=== PATIENT | male | born 1930 | race Caucasian/White ===

== ENCOUNTER 2017-05-06 09:21 | Inpatient (IN) | payer OTHER ==
[~2017-05-06] VITALS: Ht 182.9 cm; Wt 89.4 kg
[2017-05-06] VITALS (18 sets, daily range): BP systolic 105–126; BP diastolic 65–88; PULSE 87–102; TEMP 36.6–37; O2SAT 95–100; Ht 182.9 cm; Wt 89.4 kg
[~2017-05-06 09:21] MED LIST: ANT25 PO; ASPEC81 PO; Amoxicillin/Clavulanate Potas PO; GABA-112 PO; GUAISYP4 PO; LISI-790 PO; LPT40 PO; LVQ500 PO; METH-589 PO; SERT50TA PO; SRQ/200 PO
--- NOTE | 2017-05-06 11:57 | History and Physical ---
History & Physical Date & Time of Service: May 06, 2017 at 11:57 Chief Complaint: Resp Failure, Pnx Primary Care Physician: Hakan Willingham M.D. History of Present Illness This is a 86 year old male who comes as a direct admission from [facility] for respiratory failure from pulmonary edema and possible infection. Prior to arrival patient was treated with steroid, antibiotics, NEBs and diuretics. He did not improve which prompt the [facility] to dispatch patient to our hospital. Patient arrives to the ICU on a vent, and sedated and is unable to provide any history. Significant PMH include atrial fib/CHF-Diastolic Dysfunction/COPD/CRI. Items discovered in the outside hospital include iron deficiency anemia, 5.4cm AAA. I spoke with his daughter as she was outside the room when patient arrived. She is hoping for him to improve. She will discuss code status with the critical care team. Past Medical/Surgical History Medical Problems: (1) HTN (hypertension) Status: Chronic (2) Kidney stone Status: Chronic (3) Lymphoma Status: Chronic Family History FH: cancer FHx: hypertension Kidney disease or stones Social History Smoking Status: Never Smoker Marital Status: Occupational Status: retired Immunizations History of Influenza Vaccine: Unknown History of Tetanus Vaccine?: Unknown History of Pneumococcal: Unknown History of Hepatitis B Vaccine: Unknown Allergies Coded Allergies: Iodinated Diagnostic Agents (Verified Allergy, Severe, ANAPHYLAXIS, ) Sulfa Antibiotics (Verified Allergy, Unknown, UNKNOWN, 04/30/15) Home Medications Scheduled Aspirin (Aspirin EC Low Dose), 81 MG PO QAM Atorvastatin (Atorvastatin Calcium), 40 MG PO QAM Gabapentin (Neurontin), 100 MG PO HS Levofloxacin (Levofloxacin), 500 MG PO DAILY@11 Lisinopril (Zestril), 5 MG PO BID Methimazole (Methimazole ), 10 MG PO DAILY Quetiapine Fumarate (Seroquel), 300 MG PO HS Sertraline (Zoloft), 50 MG PO DAILY [Amoxicillin/Clavulanate Potas], 875 MG PO BIDM Scheduled PRN Guaifenesin/Codeine (Robitussin-Ac Syrup), 10 ML PO Q6H PRN for Cough Meclizine HCl (Meclizine HCl), 25 MG PO Q6H PRN for VERTIGO Review of Systems ROS was negative as patient was unable to provide history Respiratory: + shortness of breath Physical Exam General Appearance: + pertinent finding (sedated and intubated on a vent) Neck: supple, no adenopathy Respiratory/Chest: chest non-tender, + decreased breath sounds (on the bases) Cardiovascular: regular rate, rhythm, no edema Abdomen/GI: normal bowel sounds, non tender, soft Extremities/Musculoskelatal: normal inspection, no calf tenderness Skin: normal color Lymphatic: no adenopathy Diagnostics Laboratory Results Microbiology Results 05/06/17 MRSA DNA Surveillance Screen, Ordered Pending Diagnostic Radiology CHEST ONE VIEW PORTABLE HISTORY: 86 years-old Male For Line Placement/Intubation status post line placement. Respiratory failure. COMPARISON: Chest radiograph 04/30/2015 TECHNIQUE: Portable upright AP view of the chest FINDINGS: Study is limited secondary to patient rotation to the right. Endotracheal tube overlies the region of the trachea terminating 5.7 cm superior to the rachelle. Enteric tube courses below the diaphragm terminating to the right of midline within the region of the gastric lumen. No definite central venous catheter identified. Moderate enlargement of the cardiac silhouette. Lungs are hypoinflated. There is pulmonary vascular congestion with bronchovascular crowding. There is interstitial coarsening with left greater than right bibasilar opacities, small left pleural effusion. Bones are grossly intact. IMPRESSION: 1. Limited study secondary to patient rotation. Endotracheal and enteric tubes as above. 2. Cardiomegaly with mild pulmonary edema pattern, small left pleural effusion and bibasilar atelectasis or pneumonia. The above report was generated using voice recognition software. It may contain grammatical, syntax or spelling errors. EKG Atrial fibrillation with premature ventricular or aberrantly conducted complexes Right bundle branch block Nonspecific T wave abnormality Abnormal ECG When compared with ECG of 02-MAY-2015 08:17, Atrial fibrillation has replaced Sinus rhythm Questionable change in QRS axis T wave inversion now evident in Anterior leads Confirmed by JUS DE SUOZA MD ([id number]) on 05/06/2017 7:13:51 PM Impression Assessment and Plan Acute Respiratory failure in an 86 year old male who require mecahnical ventilation. Admitted to the ICU Vent support by Critical care team Sedation intermittent Continue with steroids, antibiotics and nebs Will consult cardiology as patient may have heart failure will also obtain echo Critical care team placed OG for decompression. HTN will monitor BP. continue home med Depression cont. seroquel. Code status:DNR/DNI Level of Care Critical Care Advanced Directives Existing Advance Directive: No Existing Living Will: No Existing Power of Vector Control Assistant: No Existing Health Care Proxy: No Resuscitation Status DO NOT RESUSCITATE VTE Prophylaxis VTE Risk Assessment Done? Y/N: Yes Risk Level: Moderate Given or contraindicated: T.E.D. Stockings, SCD's Note Total Time: Critical Care 30 - 74 minutes
[2017-05-06] MEDS: ICU PROTOCOL FOR HYPERGLYCEMIA SCH ×3 (12:30→23:49)
--- NOTE | 2017-05-06 12:42 | DIAGNOSTIC IMAGING REPORT ---
CHEST ONE VIEW PORTABLE HISTORY: 86 years-old Male For Line Placement/Intubation status post line placement. Respiratory failure. COMPARISON: Chest radiograph 04/30/2015 TECHNIQUE: Portable upright AP view of the chest FINDINGS: Study is limited secondary to patient rotation to the right. Endotracheal tube overlies the region of the trachea terminating 5.7 cm superior to the rachelle. Enteric tube courses below the diaphragm terminating to the right of midline within the region of the gastric lumen. No definite central venous catheter identified. Moderate enlargement of the cardiac silhouette. Lungs are hypoinflated. There is pulmonary vascular congestion with bronchovascular crowding. There is interstitial coarsening with left greater than right bibasilar opacities, small left pleural effusion. Bones are grossly intact. IMPRESSION: 1. Limited study secondary to patient rotation. Endotracheal and enteric tubes as above. 2. Cardiomegaly with mild pulmonary edema pattern, small left pleural effusion and bibasilar atelectasis or pneumonia. The above report was generated using voice recognition software. It may contain grammatical, syntax or spelling errors. Electronically signed by: Troy Calzada M.D. 05/06/2017 12:40 PM Dictated Date/Time: 05/06/2017 12:38 PM
[2017-05-06] MEDS ORDERED: LEVOFLOXACIN / D5W 500 MG in PREMIXED IN D5W 100 ML IV SCH (13:30)
[2017-05-06] MEDS: METHYLPREDNISOLONE IV 40 MG in SYRINGE 0 ML IV SCH ×2 (13:38→20:10)
[2017-05-06 13:44] LABS: INR 1.9 (0.9-1.1); PARTIAL THROMBOPLASTIN RATIO 1.1; PROTHROMBIN TIME (PATIENT) 20.9 SECONDS (9.0-12.0)
[2017-05-06 13:46] LABS: HEMATOCRIT 27.4 % (42-52); MEAN CELL VOLUME 70.6 fL (80-100); MEAN CORPUSCULAR HEMOGLOBIN 20.4 pg (25-34); MEAN CORPUSCULAR HGB CONC 28.8 g/dl (32-36); MEAN PLATELET VOLUME 9.6 fL (7.4-10.4); PLATELET COUNT 198 K/uL (130-400); RED BLOOD COUNT 3.88 M/uL (4.7-6.1)
[2017-05-06 14:00] LABS: BUN/CREATININE RATIO 24.5 (10-20); CALCIUM 7.5 mg/dl (8.5-10.1); CREATININE 1.72 mg/dl (0.60-1.40); POTASSIUM 4.3 mmol/L (3.5-5.1)
[2017-05-06 14:08] LABS: ANISOCYTOSIS PRESENT; COMPLETE YES; HYPERSEGMENTED POLYS 1+; HYPOCHROMIA PRESENT; IG% 0.8 %; LYMPH ABS # 0.56 K/uL (1.2-3.4); MICROCYTOSIS PRESENT; MONO % 9.9 %; NEUT % 82.3 %; OVALOCYTES 1+; TOXIC GRANULATION 1+
--- NOTE | 2017-05-06 14:38 | Critical Care Consultation ---
Critical Care Consultation Date of Consultation: May 06, 2017. Attending Physician: Hakan Flood M.D. Reason for Consultation: Respiratory Failure History of Present Illness He presented to an outside hospital with increased shortness of breath and edema secondary to a respiratory infection. He was treated with antibiotics, steroids, NEBs and diuretics. His condition continued to not improve. He was transferred to [facility] for additional care after he was intubated. Underlying medical issues include atrial fib/CHF-Diastolic Dysfunction/COPD/ CRI. Items discovered in the outside hospital include iron deficiency anemia, 5.4cm AAA. On presentation he is intubated and sedated. I spoke with his daughter who desired no additional heroic measures beyond that has been done. Past Medical/Surgical History --COPD --CHF --Atrial Fib--on anticoagulation --CRI with worsening renal insufficiency --Hyperthyroidism Family History FH: cancer FHx: hypertension Kidney disease or stones Social History Smoking Status: Never Smoker Marital Status: Housing Status: lives with significant other Occupation Status: retired Allergies Coded Allergies: Iodinated Diagnostic Agents (Verified Allergy, Severe, ANAPHYLAXIS, ) Sulfa Antibiotics (Verified Allergy, Unknown, UNKNOWN, 04/30/15) Home Medications Scheduled Aspirin (Aspirin EC Low Dose), 81 MG PO QAM Atorvastatin (Atorvastatin Calcium), 40 MG PO QAM Gabapentin (Neurontin), 100 MG PO HS Levofloxacin (Levofloxacin), 500 MG PO DAILY@11 Lisinopril (Zestril), 5 MG PO BID Methimazole (Methimazole ), 10 MG PO DAILY Quetiapine Fumarate (Seroquel), 300 MG PO HS Sertraline (Zoloft), 50 MG PO DAILY [Amoxicillin/Clavulanate Potas], 875 MG PO BIDM Scheduled PRN Guaifenesin/Codeine (Robitussin-Ac Syrup), 10 ML PO Q6H PRN for Cough Meclizine HCl (Meclizine HCl), 25 MG PO Q6H PRN for VERTIGO Current Inpatient Medications Current Inpatient Medications Medications (Trade) Dose Ordered Sig/Claudia Route Start Time Stop Time Status Last Admin Dose Admin Miscellaneous Information (Icu Protocol For Hyperglycemia) 1 ea Q6H N/A 05/06/17 12:00 05/08/17 11:59 05/06/17 12:30 1 EA Methylprednisolone Sodium Succinate 40 mg/Syringe 0.64 ml @ 1.5 mls/min Q6H IV 05/06/17 14:00 06/05/17 13:59 05/06/17 13:38 1.5 MLS/MIN Levofloxacin 500 mg/Prmx 100 ml @ 100 mls/hr DAILY@1300 IV 05/06/17 13:30 05/08/17 13:29 05/06/17 13:38 100 MLS/HR Albuterol/ Ipratropium (Duoneb) 3 ml QIDR INH 05/06/17 16:00 06/05/17 15:59 Fentanyl Citrate (Fentanyl Inj) 25 mcg Q15M PRN IV 05/06/17 13:00 05/20/17 12:59 Midazolam HCl (Versed Inj) 2 mg Q30M PRN IV 05/06/17 13:00 06/05/17 12:59 Review of Systems Patient intubated and sedated. Information obtained from the transfer records. Physical Exam Date Time Temp Pulse Resp B/P (MAP) Pulse Ox O2 Delivery O2 Flow Rate FiO2 05/06/17 14:00 95 16 113/84 (94) 99 Mechanical Ventilator 80 05/06/17 13:15 91 16 99 05/06/17 13:01 94 16 113/79 (81) 98 05/06/17 13:00 94 16 98 05/06/17 12:45 93 41 98 05/06/17 12:30 99 34 100 05/06/17 12:15 94 23 98 05/06/17 12:00 95 38 118/82 (89) 98 05/06/17 11:21 37.0 102 23 105/79 98 Mechanical Ventilator 80 Gen--sedation/frail elderly man HEENT--no focal deficits suggested Respiratory--exchange is adequate. No substantial wheezing or rhonchi-- diminished in the base Cardio--rate is 90's. Murmur noted at the apex. Neck veins not particularly distended--symmetric perfusion GI--functional--distended Musculo--no target Neuro--intubated and sedated Derm--no active lesions Laboratory Results Last 24 Hours Test 05/06/17 12:44 05/06/17 13:20 Bedside Glucose 139 mg/dl White Blood Count 8.00 K/uL Red Blood Count 3.88 M/uL Hemoglobin 7.9 g/dL Hematocrit 27.4 % Mean Corpuscular Volume 70.6 fL Mean Corpuscular Hemoglobin 20.4 pg Mean Corpuscular Hemoglobin Concent 28.8 g/dl Platelet Count 198 K/uL Mean Platelet Volume 9.6 fL Neutrophils (%) (Auto) 82.3 % Lymphocytes (%) (Auto) 7.0 % Monocytes (%) (Auto) 9.9 % Eosinophils (%) (Auto) 0.0 % Basophils (%) (Auto) 0.0 % Neutrophils # (Auto) 6.59 K/uL Lymphocytes # (Auto) 0.56 K/uL Monocytes # (Auto) 0.79 K/uL Eosinophils # (Auto) 0.00 K/uL Basophils # (Auto) 0.00 K/uL RDW Standard Deviation 48.1 fL RDW Coefficient of Variation 19.1 % Immature Granulocyte % (Auto) 0.8 % Immature Granulocyte # (Auto) 0.06 K/uL Nucleated RBC Absolute Count (auto) 0.05 K/uL Nucleated Red Blood Cells % 0.6 % Hypersegmented Polys 1+ Toxic Granulation 1+ Hypochromasia PRESENT Anisocytosis PRESENT Microcytosis PRESENT Ovalocytes 1+ Prothrombin Time 20.9 SECONDS Prothromb Time International Ratio 1.9 Activated Partial Thromboplast Time 27.6 SECONDS Partial Thromboplastin Ratio 1.1 Sodium Level 145 mmol/L Potassium Level 4.3 mmol/L Chloride Level 111 mmol/L Carbon Dioxide Level 28 mmol/L Anion Gap 6.0 mmol/L Blood Urea Nitrogen 42 mg/dl Creatinine 1.72 mg/dl Est Creatinine Clear Calc Drug Dose 39.8 ml/min Estimated GFR () 41.4 Estimated GFR (Non- 35.7 BUN/Creatinine Ratio 24.5 Random Glucose 128 mg/dl Calcium Level 7.5 mg/dl Total Bilirubin 0.7 mg/dl Direct Bilirubin 0.3 mg/dl Aspartate Amino Transf (AST/SGOT) 66 U/L Alanine Aminotransferase (ALT/SGPT) 39 U/L Alkaline Phosphatase 85 U/L Total Protein 6.2 gm/dl Albumin 3.3 gm/dl Diagnostic Results Iron deficiency anemia/renal insuff/ CXR with CHF changes EKG--atrial fib Echo pending Assessment & Plan Respiratory failure--multifactorial--COPD and CHF 1. Respiratory--vent support--continue antibiotic/steroids and nebs. Sedation intermittent 2. Cardio--cardiology assistance/echo--may benefit from additional Hgb--loop as tolerated 3. GI--OG decompression 4. Renal--will track appropriates 5. Heme--given the iron deficiency anemia--will hold on the anticoagulation for now. 6. Endo--TSH noted.
--- NOTE | 2017-05-06 15:00 | ECHOCARDIOGRAM REPORT ---
*NOTICE TO RECEIVING CONSTITUTION PARTY AGENCY This information is strictly Confidential and protected under [place] law. [place] law prohibits you from making any further disclosure of this information unless further disclosure is expressly permitted by the written consent of the person to whom it pertains or is authorized by law. A general authorization for the release of medical or other information is not sufficient for this purpose. Hospital accepts no responsibility if the information is made available to any other person, INCLUDING THE PATIENT. Interpretation Summary * Conclusions -- * The left ventricle is mildly dilated. * There is borderline concentric left ventricular hypertrophy. * Left ventricular systolic function is moderately reduced. * Grade I diastolic dysfunction, (abnormal relaxation pattern). * There is moderate global hypokinesis of the left ventricle. * The right ventricle is mild to moderately dilated. * The right ventricular systolic function is normal as assessed by tricuspid annular plane systolic excursion (TAPSE) (normal >1.5 cm). * The left atrium is mildly dilated. * The right atrium is mildly dilated. * There is moderate mitral regurgitation. * There is moderate tricuspid regurgitation. * Right ventricular systolic pressure is elevated at 30-40mmHg. * Mild to moderate aortic regurgitation. * Compared to a study from 05/01/2015, the overall LV systolic function is worse, there has been slight progression of the valvular heart disease. Procedure Details * A complete two-dimensional transthoracic echocardiogram was performed (2D, M-mode, Doppler and color flow Doppler). * A contrast injection of Definity was performed to improve assessment of LV function. * Contrast was injected into an intravenous site in the left arm. * One vial of Definity ultrasound contrast was diluted in normal saline to a total volume of 10 ml. A total of '2' ml of solution was administered during imaging. * Lot # [id number] of Definity utilized for procedure. * Expiration date Jun 14. * The attending nurse who injected the contrast agent was Troy Sun RN. Left Ventricle * The left ventricle is mildly dilated. * There is borderline concentric left ventricular hypertrophy. * Ejection Fraction = 25-30%. * Left ventricular systolic function is moderately reduced. * Grade I diastolic dysfunction, (abnormal relaxation pattern). * There is moderate global hypokinesis of the left ventricle. Right Ventricle * The right ventricle is mild to moderately dilated. * The right ventricular systolic function is normal as assessed by tricuspid annular plane systolic excursion (TAPSE) (normal >1.5 cm). Atria * The left atrium is mildly dilated. * The right atrium is mildly dilated. Mitral Valve * There is a calcified lesion on the anterior mitral leaflet which resulted in significant regurgitation. This lesion was present on the last echocardiogram performed in 2014 and appears unchanged. * There is moderate mitral regurgitation. * The mitral regurgitant jet is eccentrically directed. Tricuspid Valve * The tricuspid valve is not well visualized, but is grossly normal. * There is moderate tricuspid regurgitation. * Right ventricular systolic pressure is elevated at 30-40mmHg. Aortic Valve * The aortic valve is normal in structure and function. * No hemodynamically significant valvular aortic stenosis. * Mild to moderate aortic regurgitation. Great Vessels * The aortic root is normal size. Pericardium/Pleural * There is no pericardial effusion. Great Vessels * Dilated inferior vena cava with reduced collapsability with sniff indicates an elevated right atrial pressure of 15 mmHg MMode 2D Measurements and Calculations IVSd 1.2 cm LVIDd 6.1 cm LVIDs 4.4 cm LVPWd 1.2 cm IVS/LVPW 1.0 FS 28.2 % EDV(Teich) 186.6 ml ESV(Teich) 86.6 ml EF(Teich) 53.6 % EDV(cubed) 226.4 ml ESV(cubed) 83.9 ml EF(cubed) 63.0 % LV mass(C)d 329.8 grams LV mass(C)dI 146.4 grams/m\S\2 SV(Teich) 100.0 ml SI(Teich) 44.4 ml/m\S\2 SV(cubed) 142.6 ml SI(cubed) 63.3 ml/m\S\2 Ao root diam 3.5 cm Ao root area 9.5 cm\S\2 ACS 1.8 cm LA dimension 4.6 cm asc Aorta Diam 4.2 cm LA/Ao 1.3 LVOT diam 2.0 cm LVOT area 3.1 cm\S\2 LVAd ap4 44.6 cm\S\2 LVLd ap4 8.5 cm EDV(MOD-sp4) 195.5 ml EDV(sp4-el) 197.8 ml LVAs ap4 29.5 cm\S\2 LVLs ap4 8.0 cm ESV(MOD-sp4) 91.2 ml ESV(sp4-el) 92.2 ml EF(MOD-sp4) 53.4 % EF(sp4-el) 53.4 % LVAd ap2 30.4 cm\S\2 LVLd ap2 7.2 cm EDV(MOD-sp2) 104.9 ml EDV(sp2-el) 108.5 ml LVAs ap2 20.7 cm\S\2 LVLs ap2 6.7 cm ESV(MOD-sp2) 51.7 ml ESV(sp2-el) 54.0 ml EF(MOD-sp2) 50.7 % EF(sp2-el) 50.2 % LVLd %diff -17.54 % EDV(MOD-bp) 154.2 ml LVLs %diff -19.08 % ESV(MOD-bp) 75.1 ml EF(MOD-bp) 51.3 % SV(MOD-sp4) 104.3 ml SI(MOD-sp4) 46.3 ml/m\S\2 SV(MOD-sp2) 53.1 ml SI(MOD-sp2) 23.6 ml/m\S\2 SV(MOD-bp) 79.1 ml SI(MOD-bp) 35.1 ml/m\S\2 SV(sp4-el) 105.6 ml SI(sp4-el) 46.9 ml/m\S\2 SV(sp2-el) 54.5 ml SI(sp2-el) 24.2 ml/m\S\2 Doppler Measurements and Calculations MV E max elizabeth 117.9 cm/sec MV dec time 0.21 sec Ao V2 max 176.4 cm/sec Ao max PG 12.4 mmHg Ao max PG (full) 9.8 mmHg NADYA(V,A) 1.4 cm\S\2 NADYA(V,D) 1.4 cm\S\2 LV V1 max PG 2.7 mmHg LV V1 max 81.4 cm/sec PA V2 max 68.8 cm/sec PA max PG 1.9 mmHg PA acc slope 496.9 cm/sec\S\2 PA acc time 0.10 sec PI max elizabeth 173.7 cm/sec PI max PG 12.1 mmHg PI dec slope 314.1 cm/sec\S\2 PI P1/2t 162.0 msec TR max elizabeth 221.8 cm/sec PA pr(Accel) 34.6 mmHg
--- NOTE | 2017-05-06 15:09 | Cardiology Consultation ---
Cardiology Consultation Date of Consultation: May 06, 2017. Requesting Physician: Dr. Abdi Reason for Consultation: CHF, AF Pt evaluation today including: conversation w/ family, physical exam, lab review, review of studies, review of inpatient medication list, conversation w/ attending History of Present Illness This is an 82-year-old gentleman who has a history of non-Hodgkin's lymphoma in remission, he was evaluated in 2012 for flail posterior mitral valve leaflet along with bacteremia. According the family that resolved without incident. I do have an echocardiogram from 2014 where he did not have severe mitral regurgitation. He was recently hospitalized in [place], and transferred here. I don't have records from [place] to review at this time. According to the family he was intubated in order to transport him. He is in atrial fibrillation and anticoagulated, his family is unaware of atrial fibrillation. According to the family he has had difficulty with his heart lately but they are nonspecific about it, he evidently has had difficulty with heart failure. The family reports that he had a cardiac catheterization around January 2017 in [facility] (I don't have those records) where he did not have any blockages in his arteries. The time of evaluation he is intubated, sedated and resting comfortably. Past Medical/Surgical History (1) Kidney stone (2) Lymphoma (3) HTN (hypertension) Family History FH: cancer FHx: hypertension Kidney disease or stones Social History Smoking Status: Never Smoker History of Alcohol Use: No Review of Systems Respiratory: + cough ROS cannot be performed due to patient being intubated Allergies Coded Allergies: Iodinated Diagnostic Agents (Verified Allergy, Severe, ANAPHYLAXIS, ) Sulfa Antibiotics (Verified Allergy, Unknown, UNKNOWN, 04/30/15) Medications Current Inpatient Medications Medications (Trade) Dose Ordered Sig/Claudia Route Start Time Stop Time Status Last Admin Dose Admin Miscellaneous Information (Icu Protocol For Hyperglycemia) 1 ea Q6H N/A 05/06/17 12:00 05/08/17 11:59 05/06/17 12:30 1 EA Methylprednisolone Sodium Succinate 40 mg/Syringe 0.64 ml @ 1.5 mls/min Q6H IV 05/06/17 14:00 06/05/17 13:59 05/06/17 13:38 1.5 MLS/MIN Levofloxacin 500 mg/Prmx 100 ml @ 100 mls/hr DAILY@1300 IV 05/06/17 13:30 05/08/17 13:29 05/06/17 13:38 100 MLS/HR Albuterol/ Ipratropium (Duoneb) 3 ml QIDR INH 05/06/17 16:00 06/05/17 15:59 Fentanyl Citrate (Fentanyl Inj) 25 mcg Q15M PRN IV 05/06/17 13:00 05/20/17 12:59 Midazolam HCl (Versed Inj) 2 mg Q30M PRN IV 05/06/17 13:00 06/05/17 12:59 Physical Exam Vital Signs Past 12 Hours Date Time Temp Pulse Resp B/P (MAP) Pulse Ox O2 Delivery O2 Flow Rate FiO2 05/06/17 14:00 95 16 113/84 (94) 99 Mechanical Ventilator 80 05/06/17 13:15 91 16 99 05/06/17 13:01 94 16 113/79 (81) 98 05/06/17 13:00 94 16 98 05/06/17 12:45 93 41 98 05/06/17 12:30 99 34 100 05/06/17 12:15 94 23 98 05/06/17 12:00 95 38 118/82 (89) 98 05/06/17 11:21 37.0 102 23 105/79 98 Mechanical Ventilator 80 Constitutional: Level of Distress: acutely ill Psychiatric: Mental Status: active & alert Head: normocephalic Eyes: EOM: EOMI ENMT: normal ENT inspection, pertinent finding (Intubation) Neck: supple, no masses Lungs: Respiratory effort: no dyspnea, good air movement Auscultation: no wheezing, decreased breath sounds, rales/crackles on the left, rales/crackles on the right, pertinent finding (Mechanical ventilation) Cardiovascular: Heart Auscultation: no rubs, no gallops, II/ WSM, irregular rate rhythm Peripheral Pulses: Bruits: none appreciated Abdomen: Bowel Sounds: normal Inspection & Palpation: soft, no tenderness, guarding & rebound, no masses Extremities: no edema Neurologic: Cranial Nerves: grossly intact Sensation: grossly intact Data Laboratory Results: Last 24 Hours Test 05/06/17 12:44 05/06/17 13:20 Bedside Glucose 139 mg/dl White Blood Count 8.00 K/uL Red Blood Count 3.88 M/uL Hemoglobin 7.9 g/dL Hematocrit 27.4 % Mean Corpuscular Volume 70.6 fL Mean Corpuscular Hemoglobin 20.4 pg Mean Corpuscular Hemoglobin Concent 28.8 g/dl Platelet Count 198 K/uL Mean Platelet Volume 9.6 fL Neutrophils (%) (Auto) 82.3 % Lymphocytes (%) (Auto) 7.0 % Monocytes (%) (Auto) 9.9 % Eosinophils (%) (Auto) 0.0 % Basophils (%) (Auto) 0.0 % Neutrophils # (Auto) 6.59 K/uL Lymphocytes # (Auto) 0.56 K/uL Monocytes # (Auto) 0.79 K/uL Eosinophils # (Auto) 0.00 K/uL Basophils # (Auto) 0.00 K/uL RDW Standard Deviation 48.1 fL RDW Coefficient of Variation 19.1 % Immature Granulocyte % (Auto) 0.8 % Immature Granulocyte # (Auto) 0.06 K/uL Nucleated RBC Absolute Count (auto) 0.05 K/uL Nucleated Red Blood Cells % 0.6 % Hypersegmented Polys 1+ Toxic Granulation 1+ Hypochromasia PRESENT Anisocytosis PRESENT Microcytosis PRESENT Ovalocytes 1+ Prothrombin Time 20.9 SECONDS Prothromb Time International Ratio 1.9 Activated Partial Thromboplast Time 27.6 SECONDS Partial Thromboplastin Ratio 1.1 Sodium Level 145 mmol/L Potassium Level 4.3 mmol/L Chloride Level 111 mmol/L Carbon Dioxide Level 28 mmol/L Anion Gap 6.0 mmol/L Blood Urea Nitrogen 42 mg/dl Creatinine 1.72 mg/dl Est Creatinine Clear Calc Drug Dose 39.8 ml/min Estimated GFR () 41.4 Estimated GFR (Non- 35.7 BUN/Creatinine Ratio 24.5 Random Glucose 128 mg/dl Calcium Level 7.5 mg/dl Total Bilirubin 0.7 mg/dl Direct Bilirubin 0.3 mg/dl Aspartate Amino Transf (AST/SGOT) 66 U/L Alanine Aminotransferase (ALT/SGPT) 39 U/L Alkaline Phosphatase 85 U/L Total Protein 6.2 gm/dl Albumin 3.3 gm/dl Imaging: Chest x-ray shows cardiomegaly with mild pulmonary edema and a left pleural effusion EKG: Atrial fibrillation with a heart rate of 94 bpm, right bundle branch block Telemetry reviewed: Atrial fibrillation with a moderately rapid heart rate Echocardiogram: An echocardiogram done today shows global left ventricular hypokinesis. There was moderate mitral regurgitation, right ventricular function was normal. Assessment & Plan #1. Cardiomyopathy: He has a cardiomyopathy based on his echocardiogram, with an ejection fraction of 25-30%. Per the family's history he had a catheterization I believe over the summer at [facility] that did not show any significant coronary disease, I have not seen those records. 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 #2. Congestive heart failure: He seems to have at least some element of congestive heart failure and I would probably diurese him to a certain extent. His creatinine is somewhat elevated so we do need to be careful. I'm not sure that is the primary problem, his exam and chest x-ray does not support severe pulmonary edema. #2. Atrial fibrillation: I can't tell the chronicity of his atrial fibrillation , it may be long-standing since he is on warfarin (he was in sinus rhythm in 2015). The family is unaware of it but I don't have any history to know about the duration. It is possible that his recent difficulty with shortness of breath was triggered by going into atrial fibrillation but I can't document that without prior recent records. We probably should anticoagulate him when possible, if he has a GI bleed obviously we will have to hold anticoagulation although that poses some risk of stroke. #3. Right bundle-branch block: He has a right bundle branch block pattern, that was present 2014. No treatment indicated. Thank you for allowing me to participate in his care.
[2017-05-06] MEDS: FENTANYL CITRATE INJ 50 MCG/1 ML 2 ML VIAL IV PRN ×4 (15:37→23:31)
[2017-05-06] MEDS: MIDAZOLAM HCL 5 MG/ML 1 ML VIAL IV PRN ×4 (15:37→23:31)
[2017-05-06] MEDS ORDERED: PANTOprazole SOD 40 MG TAB PEG STA (15:58)
[2017-05-06] MEDS ORDERED: FUROSEMIDE INJ 40 MG in SYRINGE 0 ML IV SCH (16:00)
[2017-05-06] MEDS ORDERED: ALBUT/IPRATROP 3MG/0.5MG NEB 3 ML VIAL INH SCH (16:00)
[2017-05-06 16:28] LABS: ISTAT ALLEN TEST Pass; ISTAT ARTERIAL BLOOD GAS HCO3 27 meq/L (19-24); ISTAT ARTERIAL BLOOD GAS PCO2 50 mmHg (35-46); ISTAT ARTERIAL BLOOD GAS PO2 159 mmHg (80-95); ISTAT ARTERIAL BLOOD GAS pH 7.35 (7.35-7.45); ISTAT CARBON DIOXIDE 29 mEq/l (24-31); ISTAT DELIVERY SYSTEM Ventilator; ISTAT FIO2 50 %; ISTAT PEEP 5; ISTAT RATE 12; ISTAT SITE L Radial; VE 9.5; Vt 600
[2017-05-06] MEDS: LANSOPRAZOLE SOLUTAB 15 MG PEG SCH ×2 (16:46→20:09)
[2017-05-06] MEDS: METOPROLOL TARTRATE 1 MG/ML VIAL IV. SCH ×2 (18:18→23:50)
[2017-05-06] MEDS: ALBUTEROL HFA 8 GM INHALER INH SCH (20:00)
[2017-05-06] MEDS: IPRATROPIUM BROMIDE HFA INHALER INH SCH (20:00)
[2017-05-06 23:05] LABS: HEMATOCRIT 31.8 % (42-52)
[2017-05-07] VITALS (19 sets, daily range): BP systolic 73–132; BP diastolic 52–96; PULSE 64–105; TEMP 36.8–37.1; O2SAT 90–98
[2017-05-07] MEDS: FENTANYL CITRATE INJ 50 MCG/1 ML 2 ML VIAL IV PRN ×2 (02:01→06:32)
[2017-05-07] MEDS: MIDAZOLAM HCL 5 MG/ML 1 ML VIAL IV PRN ×2 (02:01→06:33)
[2017-05-07] MEDS: METHYLPREDNISOLONE IV 40 MG in SYRINGE 0 ML IV SCH ×3 (02:01→21:02)
[2017-05-07 05:46] LABS: HEMATOCRIT 31.9 % (42-52); IG% 0.4 %; LYMPH % 5.2 %; LYMPH ABS # 0.55 K/uL (1.2-3.4); MEAN CELL VOLUME 70.6 fL (80-100); MEAN CORPUSCULAR HEMOGLOBIN 20.6 pg (25-34); MEAN CORPUSCULAR HGB CONC 29.2 g/dl (32-36); MONO % 6.8 %; NEUT % 87.6 %; PLATELET COUNT 236 K/uL (130-400); RED BLOOD COUNT 4.52 M/uL (4.7-6.1); WHITE BLOOD COUNT 10.67 K/uL (4.8-10.8)
[2017-05-07 05:51] LABS: VEN BLD GAS O2 SATURATION 89.4 %; VEN BLOOD GAS BASE EXCESS 2.6 mEq/L
[2017-05-07] MEDS: ICU PROTOCOL FOR HYPERGLYCEMIA SCH ×3 (06:00→18:00)
[2017-05-07 06:03] LABS: ANISOCYTOSIS PRESENT; COMPLETE YES; HYPOCHROMIA PRESENT; POIKILOCYTOSIS PRESENT
[2017-05-07 06:19] LABS: BUN/CREATININE RATIO 28.7 (10-20); CREATININE 1.85 mg/dl (0.60-1.40); MAGNESIUM 2.8 mg/dl (1.8-2.4); PHOSPHORUS 4.1 mg/dl (2.5-4.9); POTASSIUM 4.3 mmol/L (3.5-5.1)
[2017-05-07] MEDS: METOPROLOL TARTRATE 1 MG/ML VIAL IV. SCH (06:24)
[2017-05-07] MEDS ORDERED: NURSING VERBAL MED ORDER STA (07:04)
[2017-05-07] MEDS ORDERED: SODIUM CHLORIDE 0.65% NA SOLN 45 ML (OCEAN) PRN (07:15)
[2017-05-07] MEDS: LANSOPRAZOLE SOLUTAB 15 MG PEG SCH ×2 (07:29→21:01)
[2017-05-07] MEDS: IPRATROPIUM BROMIDE HFA INHALER INH SCH (07:34)
[2017-05-07] MEDS: ALBUTEROL HFA 8 GM INHALER INH SCH (07:34)
--- NOTE | 2017-05-07 07:44 | DIAGNOSTIC IMAGING REPORT ---
SINGLE VIEW CHEST CLINICAL HISTORY: Respiratory failure. FINDINGS: An AP, portable, upright chest radiograph is compared to study dated 05/06/2017. The examination is degraded by portable technique and patient rotation. Endotracheal and enteric tubes are unchanged in position. The heart is enlarged and there is atherosclerotic calcification of the thoracic aorta. There is pulmonary vascular congestion and interstitial edema. There are layering pleural effusions with bibasilar consolidation. No pneumothorax is seen. The skeletal structures are osteopenic. The bony thorax is grossly intact. IMPRESSION: 1. Stable lines and tubes. 2. Cardiomegaly with evidence of congestive failure and interstitial edema. 3. Layering pleural effusions with bibasilar consolidation. Electronically signed by: Naseem Gonzalez M.D. 05/07/2017 7:42 AM Dictated Date/Time: 05/07/2017 7:41 AM
[2017-05-07] MEDS ORDERED: FUROSEMIDE 40 MG/4 ML VIAL IV STA (09:06)
--- NOTE | 2017-05-07 09:27 | Critical Care Progress Note ---
Critical Care Progress Note Date of Service May 07, 2017. ICU Day ICU Day Number: [address] Amador Subjective He is awake and following commands. PS wean trial underway and he is tolerating this. Reviewed with cardiology. Cardiomyopathy/atrial fib and iron deficiency anemia. Some underlying renal insufficiency. Reviewed with pharmacy dosing of Seroquel and Zoloft. Nursing report minimal to no sputum. 4 kg down on weight. Tolerated the transfusion of the PRBCs yesterday. Objective Gen--very frail--ETT in place--following commands HEENT--no focal changes. Pulmonary--exchange is adequate--some diminished in the bases Cardio--afib/ Rate is 100. Perfusion is adequate GI--softer and nontender --putnam to gravity bag Neuro--moving all ext and following commands Musculo--no clear target Derm--no active lesions Current SOFA Score SOFA Score Response (Comments) Value PaO2/FiO2 (mmHg) < 200 3 SaO2 / FIO2 67 - 141 3 Platelets (x10) > 150 0 Bilirubin (mg/dL) < 1.2 0 Willem Coma Score 13 - 14 1 Level of Hypotension No Hypotension 0 Creatinine (mg/dL) 1.2 - 1.9 1 Total 8 Assessment & Plan Respiratory failure secondary to CHF--cardiomyopathy and valvular heart disease in the setting of HTN heart and atrial fib. He is clinically improved. CXR noted. The Hgb has increased appropriately. Renal performance about the same. He is tenuous at best. He is tolerating the wean trial and given the underlying multi-organ dysfunction his prognosis is very poor. Will move to extubation and continue medical treatment. A conservative and comfort oriented approach is clearly expressed by family. 1. Cardio--oral beta josefina and A2B agent. PRN lasix for now. Anticoagulation ideal but clearly has been loosing blood--probably GI 2. Pulmonary--extubation and track closely. Reduce the steroid--I do not see an infectious source at this point. 3. Neuropsychic--restart the Seroquel and SSRI at more moderated dose for his age. 4. Renal--performance is poor. Continue to track 5. GI--will require GI evaluation if his status improved. Real difficult issues--Anticoagulation vs not--At risk either way. His decompensated may well have had substantial anemia component. 6. Dispo--PT/OT consults--Conservative and comfort oriented approach. Consults & Procedures Consultants: cardiology Procedures: none Data Medications: Current Inpatient Medications Medications (Trade) Dose Ordered Sig/Claudia Route Start Time Stop Time Status Last Admin Dose Admin Miscellaneous Information (Icu Protocol For Hyperglycemia) 1 ea Q6H N/A 05/06/17 12:00 05/08/17 11:59 05/06/17 12:30 1 EA Lansoprazole (Prevacid Solutab) 15 mg BID PEG 05/06/17 16:03 06/05/17 16:02 05/07/17 07:29 15 MG Ipratropium Ary (Atrovent Hfa Inhaler) 4 puffs QIDR INH 05/06/17 20:00 06/05/17 19:59 05/07/17 07:34 4 PUFFS Albuterol (Ventolin Hfa Inhaler) 4 puffs QIDR INH 05/06/17 20:00 06/05/17 19:59 05/07/17 07:34 4 PUFFS Sodium Chloride (Cloud Nasal Sumner) 1 sprays PRN PRN NA 05/07/17 07:15 06/06/17 07:14 Sertraline HCl (Zoloft Tab) 50 mg DAILY PO 05/07/17 14:00 06/06/17 13:59 Quetiapine Fumarate (seroQUEL TAB) 50 mg HS PO 05/07/17 21:00 06/06/17 20:59 Methylprednisolone Sodium Succinate 40 mg/Syringe 0.64 ml @ 1.5 mls/min Q12H IV 05/07/17 21:00 06/06/17 20:59 Metoprolol Tartrate (Lopressor Tab) 12.5 mg BID PO 05/07/17 12:00 06/06/17 11:59 Losartan Potassium (coZAAR TAB) 25 mg QAM PO 05/08/17 09:00 06/07/17 08:59 UNV Vital Signs: Date Time Temp Pulse Resp B/P (MAP) Pulse Ox O2 Delivery O2 Flow Rate FiO2 05/07/17 08:00 30 05/07/17 08:00 Mechanical Ventilator 30 05/07/17 07:20 40 05/07/17 06:24 100 132/94 05/07/17 06:00 99 13 132/94 (107) 95 Mechanical Ventilator 30 05/07/17 05:07 40 05/07/17 05:00 30 05/07/17 04:00 37.1 103 15 126/96 (106) 95 Mechanical Ventilator 40 05/07/17 04:00 30 05/07/17 04:00 Mechanical Ventilator 30 05/07/17 02:02 40 05/07/17 02:00 99 13 126/93 (104) 97 Mechanical Ventilator 40 05/07/17 00:01 36.8 93 14 117/82 (94) 97 Mechanical Ventilator 40 05/06/17 23:59 40 05/06/17 23:59 Mechanical Ventilator 40 05/06/17 23:50 95 117/91 05/06/17 23:31 40 05/06/17 22:01 95 12 118/86 (97) 96 Mechanical Ventilator 40 05/06/17 21:10 40 05/06/17 20:00 36.6 93 12 111/84 (93) 95 Mechanical Ventilator 05/06/17 20:00 Mechanical Ventilator 40 05/06/17 20:00 40 05/06/17 19:01 37.0 90 14 106/79 97 05/06/17 18:18 117 106/77 05/06/17 18:00 36.9 94 14 118/85 96 05/06/17 17:30 36.9 91 14 116/88 96 05/06/17 17:00 37.0 87 12 113/81 96 05/06/17 16:45 36.9 94 12 126/65 96 05/06/17 16:39 37.0 93 14 119/73 96 05/06/17 16:10 40 05/06/17 16:00 Mechanical Ventilator 40 05/06/17 16:00 40 05/06/17 16:00 36.9 05/06/17 14:36 60 05/06/17 14:00 95 16 113/84 (94) 99 Mechanical Ventilator 80 05/06/17 13:15 91 16 99 05/06/17 13:01 94 16 113/79 (81) 98 05/06/17 13:00 94 16 98 05/06/17 12:45 93 41 98 05/06/17 12:30 99 34 100 05/06/17 12:15 94 23 98 05/06/17 12:00 95 38 118/82 (89) 98 05/06/17 11:49 80 11/9/17 11:21 37.0 102 23 105/79 98 Mechanical Ventilator 80 Laboratory Results: Last 24 Hours Test 05/06/17 12:44 05/06/17 13:20 05/06/17 16:12 05/06/17 18:26 Bedside Glucose 139 mg/dl 127 mg/dl White Blood Count 8.00 K/uL Red Blood Count 3.88 M/uL Hemoglobin 7.9 g/dL Hematocrit 27.4 % Mean Corpuscular Volume 70.6 fL Mean Corpuscular Hemoglobin 20.4 pg Mean Corpuscular Hemoglobin Concent 28.8 g/dl Platelet Count 198 K/uL Mean Platelet Volume 9.6 fL Neutrophils (%) (Auto) 82.3 % Lymphocytes (%) (Auto) 7.0 % Monocytes (%) (Auto) 9.9 % Eosinophils (%) (Auto) 0.0 % Basophils (%) (Auto) 0.0 % Neutrophils # (Auto) 6.59 K/uL Lymphocytes # (Auto) 0.56 K/uL Monocytes # (Auto) 0.79 K/uL Eosinophils # (Auto) 0.00 K/uL Basophils # (Auto) 0.00 K/uL RDW Standard Deviation 48.1 fL RDW Coefficient of Variation 19.1 % Immature Granulocyte % (Auto) 0.8 % Immature Granulocyte # (Auto) 0.06 K/uL Nucleated RBC Absolute Count (auto) 0.05 K/uL Nucleated Red Blood Cells % 0.6 % Hypersegmented Polys 1+ Toxic Granulation 1+ Hypochromasia PRESENT Anisocytosis PRESENT Microcytosis PRESENT Ovalocytes 1+ Prothrombin Time 20.9 SECONDS Prothromb Time International Ratio 1.9 Activated Partial Thromboplast Time 27.6 SECONDS Partial Thromboplastin Ratio 1.1 Sodium Level 145 mmol/L Potassium Level 4.3 mmol/L Chloride Level 111 mmol/L Carbon Dioxide Level 28 mmol/L Anion Gap 6.0 mmol/L Blood Urea Nitrogen 42 mg/dl Creatinine 1.72 mg/dl Est Creatinine Clear Calc Drug Dose 39.8 ml/min Estimated GFR () 41.4 Estimated GFR (Non- 35.7 BUN/Creatinine Ratio 24.5 Random Glucose 128 mg/dl Calcium Level 7.5 mg/dl Total Bilirubin 0.7 mg/dl Direct Bilirubin 0.3 mg/dl Aspartate Amino Transf (AST/SGOT) 66 U/L Alanine Aminotransferase (ALT/SGPT) 39 U/L Alkaline Phosphatase 85 U/L Total Protein 6.2 gm/dl Albumin 3.3 gm/dl Blood Gas Sample Site L Radial Bedside Blood Gas pH (LAB) 7.35 Bedside Blood Gas pCO2 (LAB) 50 mmHg Bedside Blood Gas pO2 (LAB) 159 mmHg Bedside Blood Gas HCO3 (LAB) 27 meq/L Bedside Blood Gas Total CO2 29 mEq/l Bedside Blood Gas Base Excess (LAB) 2.0 meq/L Bedside Blood Gas O2 Saturation 99.0 % Pedro Pablo Test Pass Oxygen Delivery Device Ventilator Bedside Oxygen Rate (breaths/min) 12 Blood Gas Minute Ventilation 9.5 Bedside FiO2 50 % Blood Gas Tidal Volume 600 Blood Gas PEEP 5 Test 05/06/17 22:40 05/06/17 23:46 05/07/17 05:34 Hemoglobin 9.4 g/dL 9.3 g/dL Hematocrit 31.8 % 31.9 % Bedside Glucose 135 mg/dl White Blood Count 10.67 K/uL Red Blood Count 4.52 M/uL Mean Corpuscular Volume 70.6 fL Mean Corpuscular Hemoglobin 20.6 pg Mean Corpuscular Hemoglobin Concent 29.2 g/dl Platelet Count 236 K/uL Mean Platelet Volume 10.0 fL Neutrophils (%) (Auto) 87.6 % Lymphocytes (%) (Auto) 5.2 % Monocytes (%) (Auto) 6.8 % Eosinophils (%) (Auto) 0.0 % Basophils (%) (Auto) 0.0 % Neutrophils # (Auto) 9.35 K/uL Lymphocytes # (Auto) 0.55 K/uL Monocytes # (Auto) 0.73 K/uL Eosinophils # (Auto) 0.00 K/uL Basophils # (Auto) 0.00 K/uL RDW Standard Deviation 49.3 fL RDW Coefficient of Variation 19.3 % Immature Granulocyte % (Auto) 0.4 % Immature Granulocyte # (Auto) 0.04 K/uL Nucleated RBC Absolute Count (auto) 0.12 K/uL Nucleated Red Blood Cells % 1.1 % Hypochromasia PRESENT Poikilocytosis PRESENT Anisocytosis PRESENT Venous Blood pH 7.41 Venous Blood Partial Pressure CO2 44 mmHg Venous Blood Partial Pressure O2 65 mmHg Venous Blood HCO3 28 mmol/L Venous Blood Oxygen Saturation 89.4 % Venous Blood Base Excess 2.6 mEq/L Sodium Level 146 mmol/L Potassium Level 4.3 mmol/L Chloride Level 111 mmol/L Carbon Dioxide Level 28 mmol/L Anion Gap 8.0 mmol/L Blood Urea Nitrogen 53 mg/dl Creatinine 1.85 mg/dl Est Creatinine Clear Calc Drug Dose 37.0 ml/min Estimated GFR () 37.9 Estimated GFR (Non- 32.7 BUN/Creatinine Ratio 28.7 Random Glucose 134 mg/dl Calcium Level 8.0 mg/dl Phosphorus Level 4.1 mg/dl Magnesium Level 2.8 mg/dl
[2017-05-07] MEDS ORDERED: LOSARTAN POTASSIUM 25 MG TAB PO ONE (10:15)
[2017-05-07] MEDS: SERTRALINE HCL 50 MG TAB PO SCH (12:17)
[2017-05-07] MEDS: METOPROLOL TARTRATE 25 MG TAB PO SCH ×2 (12:18→21:01)
[2017-05-07] MEDS: ALBUT/IPRATROP 3MG/0.5MG NEB 3 ML VIAL INH SCH ×2 (15:50→19:00)
[2017-05-07] MEDS: QUETIAPINE FUMARATE 25 MG TAB PO SCH (21:02)
--- NOTE | 2017-05-07 21:05 | Progress Note ---
Subjective Date of Service: May 07, 2017. Subjective Pt evaluation today including: conversation w/ patient, physical exam, chart review, lab review, review of studies (echo, etc), conversation w/ renewable energy consultant ( critical care), review of inpatient medication list Pain: denies PO Intake: tolerated clears after extubation Voiding: putnam catheter in place pt feels better he was successfully extubated this AM now on NC O2 and resting comfortably reports seeing Dr. Chahal for his cardiac issues about 1 month ago lives alone in [place] Review of Systems Constitutional: No fever Respiratory: No dyspnea at rest Cardiac: No chest pain Abdomen: No pain Objective Vital Signs Date Time Temp Pulse Resp B/P (MAP) Pulse Ox O2 Delivery O2 Flow Rate FiO2 05/07/17 19:00 92 20 96 Nasal Cannula 2.0 05/07/17 18:00 92 25 106/73 (84) 94 05/07/17 16:00 92 23 116/83 (94) 94 Nasal Cannula 2.0 05/07/17 16:00 Nasal Cannula 2.0 05/07/17 15:50 66 18 95 Nasal Cannula 2.0 05/07/17 14:18 96 18 129/77 (94) 94 Nasal Cannula 2.0 05/07/17 12:00 Nasal Cannula 2.0 05/07/17 12:00 102 22 132/92 (105) 93 Nasal Cannula 2.0 05/07/17 11:03 64 18 98 Nasal Cannula 4.0 05/07/17 10:14 103 12 96 Nasal Cannula 4.0 05/07/17 08:45 37.0 105 16 128/94 (105) 95 Mechanical Ventilator 30 05/07/17 08:00 Mechanical Ventilator 05/07/17 08:00 30 05/07/17 08:00 Mechanical Ventilator 30 05/07/17 07:20 40 05/07/17 06:24 100 132/94 05/07/17 06:00 99 13 132/94 (107) 95 Mechanical Ventilator 30 05/07/17 05:07 40 05/07/17 05:00 30 05/07/17 04:00 37.1 103 15 126/96 (106) 95 Mechanical Ventilator 40 05/07/17 04:00 30 05/07/17 04:00 Mechanical Ventilator 30 05/07/17 02:02 40 05/07/17 02:00 99 13 126/93 (104) 97 Mechanical Ventilator 40 05/07/17 00:01 36.8 93 14 117/82 (94) 97 Mechanical Ventilator 40 05/06/17 23:59 40 05/06/17 23:59 Mechanical Ventilator 40 05/06/17 23:50 95 117/91 05/06/17 23:31 40 05/06/17 22:01 95 12 118/86 (97) 96 Mechanical Ventilator 40 05/06/17 21:10 40 Physical Exam General Appearance: no apparent distress ENT: pharynx normal Neck: + JVD, + thyroid abnormalities (mild goiter) Respiratory/Chest: no respiratory distress, no accessory muscle use, + crackles (bases), + wheezing Cardiovascular: no gallop, + irregularly irregular Abdomen: normal bowel sounds, non tender, soft, no organomegaly Extremities: no pedal edema 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: alert, oriented x 3 Skin: + pallor Laboratory Results Last 24 Hours Test 05/06/17 22:40 05/06/17 23:46 05/07/17 05:34 05/07/17 09:48 Hemoglobin 9.4 g/dL 9.3 g/dL Hematocrit 31.8 % 31.9 % Bedside Glucose 135 mg/dl White Blood Count 10.67 K/uL Red Blood Count 4.52 M/uL Mean Corpuscular Volume 70.6 fL Mean Corpuscular Hemoglobin 20.6 pg Mean Corpuscular Hemoglobin Concent 29.2 g/dl Platelet Count 236 K/uL Mean Platelet Volume 10.0 fL Neutrophils (%) (Auto) 87.6 % Lymphocytes (%) (Auto) 5.2 % Monocytes (%) (Auto) 6.8 % Eosinophils (%) (Auto) 0.0 % Basophils (%) (Auto) 0.0 % Neutrophils # (Auto) 9.35 K/uL Lymphocytes # (Auto) 0.55 K/uL Monocytes # (Auto) 0.73 K/uL Eosinophils # (Auto) 0.00 K/uL Basophils # (Auto) 0.00 K/uL RDW Standard Deviation 49.3 fL RDW Coefficient of Variation 19.3 % Immature Granulocyte % (Auto) 0.4 % Immature Granulocyte # (Auto) 0.04 K/uL Nucleated RBC Absolute Count (auto) 0.12 K/uL Nucleated Red Blood Cells % 1.1 % Hypochromasia PRESENT Poikilocytosis PRESENT Anisocytosis PRESENT Venous Blood pH 7.41 Venous Blood Partial Pressure CO2 44 mmHg Venous Blood Partial Pressure O2 65 mmHg Venous Blood HCO3 28 mmol/L Venous Blood Oxygen Saturation 89.4 % Venous Blood Base Excess 2.6 mEq/L Sodium Level 146 mmol/L Potassium Level 4.3 mmol/L Chloride Level 111 mmol/L Carbon Dioxide Level 28 mmol/L Anion Gap 8.0 mmol/L Blood Urea Nitrogen 53 mg/dl Creatinine 1.85 mg/dl Est Creatinine Clear Calc Drug Dose 37.0 ml/min Estimated GFR () 37.9 Estimated GFR (Non- 32.7 BUN/Creatinine Ratio 28.7 Random Glucose 134 mg/dl Calcium Level 8.0 mg/dl Phosphorus Level 4.1 mg/dl Magnesium Level 2.8 mg/dl Thyroid Stimulating Hormone (TSH) 3.440 uIu/ml Test 05/07/17 12:12 05/07/17 17:52 Bedside Glucose 123 mg/dl 143 mg/dl Assessment and Plan 86yo male - 1. acute hypoxic/hypercarbic resp failure - 2nd to CHF - resolving. 2. acute/chronic systolic CHF - echo shows that EF is worse relative to previous echo. Cont to diurese. Cont BB. Cont losartan. 3. a. fib with RVR - improved. Coumadin on hold due to significant microcytic anemia. Appreciate cardiology consult. 4. microcytic anemia - check stool for guaiac. Iron levels checked at [facility] reviewed - ferritin was 17 c/w iron deficiency anemia. CBC in am for stability. Ferrous sulfate when taking PO more reliably. Occult GI bleeding due to chronic coumadin usage? 5. wheezing - 2nd to #2? Underlying COPD/emphysema? Bronchodilators, diurese. 6. hyperthyroidism - TSH compensated. On methimazole. Appears to have goiter on exam. 7. CKD - stage 3? unsure of baseline - last creatinine was 2 years ago. BMP in am. 8. 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 PT, OT when able observe in ICU overnight again Continued [facility] stay due to: multiple IV medications needed Discharge planning: uncertain
[2017-05-07] MEDS ORDERED: DOCUSATE SODIUM 100 MG/10 ML UDC PO ONE (23:46)
[2017-05-08] VITALS (18 sets, daily range): BP systolic 95–131; BP diastolic 63–90; PULSE 85–112; TEMP 36.5–37; O2SAT 91–97
--- NOTE | 2017-05-08 00:03 | Cardiology Follow-Up ---
Subjective Date of Service: May 07, 2017. Pt evaluation today including: conversation w/ patient, physical exam, lab review, review of studies, review of inpatient medication list, conversation w/ attending History of Present Illness This is an 82-year-old gentleman who has a history of non-Hodgkin's lymphoma in remission, he was evaluated in 2012 for flail posterior mitral valve leaflet along with bacteremia. According the family that resolved without incident. I do have an echocardiogram from 2014 where he did not have severe mitral regurgitation. He was recently hospitalized in [place], and transferred here. I don't have records from [place] to review at this time. According to the family he was intubated in order to transport him. He is in atrial fibrillation and anticoagulated, his family is unaware of atrial fibrillation. According to the family he has had difficulty with his heart lately but they are nonspecific about it, he evidently has had difficulty with heart failure. The family reports that he had a cardiac catheterization around January 2017 in [place] (I don't have those records) where he did not have any blockages in his arteries. He has been extubated, he has no cardiovascular complaints. Social History Smoking Status: Never Smoker History of Alcohol Use: No Review of Systems Respiratory: No shortness of breath, No dyspnea at rest Cardiac: No chest pain Objective Vital Signs Past 12 Hours Date Time Temp Pulse Resp B/P (MAP) Pulse Ox O2 Delivery O2 Flow Rate FiO2 05/07/17 22:26 91 20 74/57 (63) 92 2.0 05/07/17 22:20 91 20 87/60 (69) 96 2.0 05/07/17 21:00 95 30 111/70 (84) 94 2.0 05/07/17 20:00 Nasal Cannula 2.0 05/07/17 20:00 37.1 103 25 127/75 (92) 93 Nasal Cannula 2.0 05/07/17 19:00 92 20 96 Nasal Cannula 2.0 05/07/17 18:00 92 25 106/73 (84) 94 05/07/17 16:00 92 23 116/83 (94) 94 Nasal Cannula 2.0 05/07/17 16:00 Nasal Cannula 2.0 05/07/17 15:50 66 18 95 Nasal Cannula 2.0 05/07/17 14:18 96 18 129/77 (94) 94 Nasal Cannula 2.0 05/07/17 12:00 Nasal Cannula 2.0 05/07/17 12:00 102 22 132/92 (105) 93 Nasal Cannula 2.0 Last Recorded Weight-Kilograms: 98.400 Intake & Output 8-Hour Column 05/07/17 05/08/17 05/08/17 16:00 00:00 08:00 Intake Total 750 ml 600 ml Output Total 850 ml 450 ml Balance -100 ml 150 ml 24-Hour Column 05/08/17 08:00 Intake Total 1350 ml Output Total 1300 ml Balance 50 ml Physical Exam Constitutional: Level of Distress: mild distress Lungs: Auscultation: breath sounds normal Cardiovascular: Heart Auscultation: irregular rate rhythm Extremities: no edema Data Laboratory Results: Last 24 Hours Test 05/07/17 05:34 05/07/17 09:48 05/07/17 12:12 05/07/17 17:52 White Blood Count 10.67 K/uL Red Blood Count 4.52 M/uL Hemoglobin 9.3 g/dL Hematocrit 31.9 % Mean Corpuscular Volume 70.6 fL Mean Corpuscular Hemoglobin 20.6 pg Mean Corpuscular Hemoglobin Concent 29.2 g/dl Platelet Count 236 K/uL Mean Platelet Volume 10.0 fL Neutrophils (%) (Auto) 87.6 % Lymphocytes (%) (Auto) 5.2 % Monocytes (%) (Auto) 6.8 % Eosinophils (%) (Auto) 0.0 % Basophils (%) (Auto) 0.0 % Neutrophils # (Auto) 9.35 K/uL Lymphocytes # (Auto) 0.55 K/uL Monocytes # (Auto) 0.73 K/uL Eosinophils # (Auto) 0.00 K/uL Basophils # (Auto) 0.00 K/uL RDW Standard Deviation 49.3 fL RDW Coefficient of Variation 19.3 % Immature Granulocyte % (Auto) 0.4 % Immature Granulocyte # (Auto) 0.04 K/uL Nucleated RBC Absolute Count (auto) 0.12 K/uL Nucleated Red Blood Cells % 1.1 % Hypochromasia PRESENT Poikilocytosis PRESENT Anisocytosis PRESENT Venous Blood pH 7.41 Venous Blood Partial Pressure CO2 44 mmHg Venous Blood Partial Pressure O2 65 mmHg Venous Blood HCO3 28 mmol/L Venous Blood Oxygen Saturation 89.4 % Venous Blood Base Excess 2.6 mEq/L Sodium Level 146 mmol/L Potassium Level 4.3 mmol/L Chloride Level 111 mmol/L Carbon Dioxide Level 28 mmol/L Anion Gap 8.0 mmol/L Blood Urea Nitrogen 53 mg/dl Creatinine 1.85 mg/dl Est Creatinine Clear Calc Drug Dose 37.0 ml/min Estimated GFR () 37.9 Estimated GFR (Non- 32.7 BUN/Creatinine Ratio 28.7 Random Glucose 134 mg/dl Calcium Level 8.0 mg/dl Phosphorus Level 4.1 mg/dl Magnesium Level 2.8 mg/dl Thyroid Stimulating Hormone (TSH) 3.440 uIu/ml Bedside Glucose 123 mg/dl 143 mg/dl Telemetry reviewed: Atrial fibrillation at a slightly high HR Assessment and Plan #1. Cardiomyopathy: He has a cardiomyopathy based on his echocardiogram, with an ejection fraction of 25-30%. Per the family's history he had a catheterization I believe over the summer at [place] that did not show any significant coronary disease, I have not seen those records. 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 #2. Congestive heart failure: He seems to have at least some element of congestive heart failure and I would probably continue gentle diuresis. He has not lost a lot of fluid based on I and O, but his weight is down, but may be inaccurate. #2. Atrial fibrillation: I can't tell the chronicity of his atrial fibrillation , it may be long-standing since he is on warfarin (he was in sinus rhythm in 2015) and I suspect it is permanent. The family is unaware of it. I would increase rate control meds somewhat (beta blockers) and anticoagulate whenever possible. #3. Right bundle-branch block: He has a right bundle branch block pattern, that was present 2015. No treatment indicated. Thank you for allowing me to participate in his care.
[2017-05-08] MEDS: ICU PROTOCOL FOR HYPERGLYCEMIA SCH ×2 (00:05→06:18)
[2017-05-08] MEDS ORDERED: FENTANYL CITRATE INJ 50 MCG/1 ML 2 ML VIAL ONE ×2 (00:07→03:15)
[2017-05-08] MEDS ORDERED: FENTANYL CITRATE INJ 50 MCG/1 ML 2 ML VIAL IV ONE ×2 (03:15)
[2017-05-08 03:48] LABS: INR 2.5 (0.9-1.1); PROTHROMBIN TIME (PATIENT) 28.1 SECONDS (9.0-12.0)
[2017-05-08 03:55] LABS: BUN/CREATININE RATIO 26.5 (10-20); CALCIUM 7.6 mg/dl (8.5-10.1); CREATININE 1.83 mg/dl (0.60-1.40); MAGNESIUM 2.9 mg/dl (1.8-2.4); POTASSIUM 3.9 mmol/L (3.5-5.1)
[2017-05-08 03:59] LABS: PHOSPHORUS 3.7 mg/dl (2.5-4.9)
[2017-05-08 04:27] LABS: ANISOCYTOSIS PRESENT; HYPOCHROMIA PRESENT; IG% 0.2 %; LYMPH % 6.9 %; LYMPH ABS # 0.74 K/uL (1.2-3.4); MONO % 8.3 %; NEUT % 84.6 %; POIKILOCYTOSIS PRESENT
[2017-05-08 04:28] LABS: COMPLETE YES; MEAN CELL VOLUME 70.6 fL (80-100); MEAN CORPUSCULAR HEMOGLOBIN 20.5 pg (25-34); PLATELET COUNT 229 K/uL (130-400); RED BLOOD COUNT 4.39 M/uL (4.7-6.1); WHITE BLOOD COUNT 10.77 K/uL (4.8-10.8)
--- NOTE | 2017-05-08 06:21 | Critical Care Progress Note ---
Critical Care Progress Note Date of Service May 08, 2017. Attending Dr. Amador Subjective Patient sleeping comfortably. Did have acute abdominal discomfort overnight. It was minimally relieved by fentanyl. Labs done overnight were WNL. CT was done of the abdomen/pelvis and showed no acute pathology. Imaging did show evidence of significant gas and stool. Patient otherwise denies fevers/chills/sweats, CP , palpitations, dyspnea, N/V. He has been sitting out of bed without issue. He has Root in situ. He has not had a bowel movement in 3 days. Objective GENERAL: Alert, sleeping in recliner, awakens to voice, no acute distress, non- toxic HEAD: NC/AT EYES: Normal sclera and conjunctiva OROPHARYNX: No exudate, no erythema. Lips, buccal mucosa, and tongue normal and mucous membranes are dry NECK: Supple, no nuchal rigidity, no adenopathy, non-tender LUNGS: Normal chest wall mechanics. No reproducible chest wall tenderness. Clear to auscultation. No crepitations, crackles, or wheezes HEART: RRR, S1 and S2 normal, no murmurs appreciated ABDOMEN: Soft, right sided tenderness, mild distension, normo-active bowel sounds, no masses, no rebound or guarding. BACK: Back is symmetrical on inspection, no deformities, no midline tenderness, no CVA tenderness. SKIN: Warm, pink, dry. No erythema, rashes, or bruising. EXTREMITIES: Grossly normal. Moving all 4 limbs. No pitting edema. Calves supple. NEURO: Alert, Ox3. No focal deficits. Cranial nerves II-XII grossly intact, normal speech. PSYCH: Mood and affect appropriate. Current SOFA Score SOFA Score Response (Comments) Value PaO2/FiO2 (mmHg) < 200 3 SaO2 / FIO2 221 - 301 1 Platelets (x10) > 150 0 Bilirubin (mg/dL) < 1.2 0 [place] Coma Score 15 0 Level of Hypotension No Hypotension 0 Creatinine (mg/dL) 1.2 - 1.9 1 Total 5 Assessment & Plan Resident Physician Supervision Note: I was present with [Name of resident] during the history and exam. I discussed the case with the resident and agree with the findings and plan as documented in the note. Any exceptions or clarifications are listed here: [None ] Documented By: Klever Amador Reason critically ill: 86 year old male presents with respiratory failure requiring intubation Neuro - CAM negative. - Continue to monitor for changes in RASS - Analgesia: Fentanyl one time doses - Depression: sertraline, quetiapine - Gabapentin CV - Vitals HR 80-90s, SBP 70-110s - hemodynamically stable - A.fib: Continue metoprolol. Warfarin held in view of ongoing blood loss. Defer decision to restart to primary team. - HTN: Continue losartan, and restarted furosemide Resp - Acute hypoxic/hypercapnic respiratory respiratory failure resolved - Supplemental oxygen 2L via NC, wean as tolerated - H/o COPD/emphysema: Continue methylprednisone 40mg q12h, Duoneb GI/Nutrition - Diet: AHA - Constipation: Dulcolax and fleet enema stat. Scheduled Colace and Miralax - PPx: pantoprazole Renal/ - IVF: nil - Root in situ - Electrolytes WNL - Trend BMP ID - Antibiotics: nil - No evidence of acute infection - Continue to monitor fever curve and WBC Endo - Check glucose as per ICU protocol - currently 120s-150s - Hyperthyroid: Continue methimazole Heme - H/H stable with Hb 9.0 - patient has iron deficiency anemia s/p transfusion 1 unit pRBC (05/06). Trend CBC - Coag show therapeutic INR 2.5, despite no warfarin. Trend INR Access/Line - Peripheral IV VTE Prophylaxis - Chemical anticoagulation contraindicated due to occult blood loss. - INR elevated - SCDs Resident Physician Supervision Note: I was present with Dr. Ramos during the history and exam. I discussed the case with the resident and agree with the findings and plan as documented in the note. Any exceptions or clarifications are listed here: [None] Documented By: Klever Amador Consults & Procedures Consultants: Critical care Cardiology Procedures: pRBC transfusion 05/06 Extubation 05/07 Data Medications: Current Inpatient Medications Medications (Trade) Dose Ordered Sig/Claudia Route Start Time Stop Time Status Last Admin Dose Admin Miscellaneous Information (Icu Protocol For Hyperglycemia) 1 ea Q6H N/A 05/06/17 12:00 05/08/17 11:59 05/08/17 00:05 1 EA Lansoprazole (Prevacid Solutab) 15 mg BID PEG 05/06/17 16:03 06/05/17 16:02 05/07/17 21:01 15 MG Sodium Chloride ([place] Nasal [place]) 1 sprays PRN PRN NA 05/07/17 07:15 06/06/17 07:14 Sertraline HCl (Zoloft Tab) 50 mg DAILY PO 05/07/17 14:00 06/06/17 13:59 05/07/17 12:17 50 MG Quetiapine Fumarate (seroQUEL TAB) 50 mg HS PO 05/07/17 21:00 06/06/17 20:59 05/07/17 21:02 50 MG Methylprednisolone Sodium Succinate 40 mg/Syringe 0.64 ml @ 1.5 mls/min Q12H IV 05/07/17 21:00 06/06/17 20:59 05/07/17 21:02 1.5 MLS/MIN Metoprolol Tartrate (Lopressor Tab) 12.5 mg BID PO 05/07/17 12:00 06/06/17 11:59 05/07/17 21:01 12.5 MG Losartan Potassium (coZAAR TAB) 25 mg QAM PO 05/08/17 09:00 06/07/17 08:59 Albuterol/ Ipratropium (Duoneb) 3 ml QIDR INH 05/07/17 16:00 06/06/17 15:59 05/07/17 19:00 3 ML Docusate Sodium (coLACE SYRUP) 100 mg BID PO 05/08/17 09:00 06/07/17 08:59 Vital Signs: Date Time Temp Pulse Resp B/P (MAP) Pulse Ox O2 Delivery O2 Flow Rate FiO2 05/08/17 04:00 Nasal Cannula 2.0 05/08/17 04:00 37.0 91 18 119/78 (92) 95 Nasal Cannula 2.0 05/08/17 02:00 92 19 112/79 (90) 95 Nasal Cannula 2.0 05/08/17 01:30 89 25 104/68 (80) 95 2.0 05/08/17 01:00 90 18 107/77 (87) 93 Nasal Cannula 2.0 05/08/17 00:30 87 21 103/90 (94) 93 2.0 05/08/17 00:00 Nasal Cannula 2.0 05/08/17 00:00 36.8 90 17 108/78 (88) 95 Nasal Cannula 2.0 05/07/17 23:26 84 30 86/60 (69) 90 2.0 05/07/17 23:00 88 14 73/52 (59) 90 2.0 05/07/17 22:26 91 20 74/57 (63) 92 2.0 05/07/17 22:20 91 20 87/60 (69) 96 2.0 05/07/17 21:00 95 30 111/70 (84) 94 2.0 05/07/17 20:00 Nasal Cannula 2.0 05/07/17 20:00 37.1 103 25 127/75 (92) 93 Nasal Cannula 2.0 05/07/17 19:00 92 20 96 Nasal Cannula 2.0 05/07/17 18:00 92 25 106/73 (84) 94 05/07/17 16:00 92 23 116/83 (94) 94 Nasal Cannula 2.0 05/07/17 16:00 Nasal Cannula 2.0 05/07/17 15:50 66 18 95 Nasal Cannula 2.0 05/07/17 14:18 96 18 129/77 (94) 94 Nasal Cannula 2.0 05/07/17 12:00 Nasal Cannula 2.0 05/07/17 12:00 102 22 132/92 (105) 93 Nasal Cannula 2.0 05/07/17 11:03 64 18 98 Nasal Cannula 4.0 05/07/17 10:14 103 12 96 Nasal Cannula 4.0 05/07/17 08:45 37.0 105 16 128/94 (105) 95 Mechanical Ventilator 30 05/07/17 08:00 Mechanical Ventilator 05/07/17 08:00 30 05/07/17 08:00 Mechanical Ventilator 30 05/07/17 07:20 40 Laboratory Results: Last 24 Hours Test 05/07/17 05:34 05/07/17 09:48 05/07/17 12:12 05/07/17 17:52 White Blood Count 10.67 K/uL Red Blood Count 4.52 M/uL Hemoglobin 9.3 g/dL Hematocrit 31.9 % Mean Corpuscular Volume 70.6 fL Mean Corpuscular Hemoglobin 20.6 pg Mean Corpuscular Hemoglobin Concent 29.2 g/dl Platelet Count 236 K/uL Mean Platelet Volume 10.0 fL Neutrophils (%) (Auto) 87.6 % Lymphocytes (%) (Auto) 5.2 % Monocytes (%) (Auto) 6.8 % Eosinophils (%) (Auto) 0.0 % Basophils (%) (Auto) 0.0 % Neutrophils # (Auto) 9.35 K/uL Lymphocytes # (Auto) 0.55 K/uL Monocytes # (Auto) 0.73 K/uL Eosinophils # (Auto) 0.00 K/uL Basophils # (Auto) 0.00 K/uL RDW Standard Deviation 49.3 fL RDW Coefficient of Variation 19.3 % Immature Granulocyte % (Auto) 0.4 % Immature Granulocyte # (Auto) 0.04 K/uL Nucleated RBC Absolute Count (auto) 0.12 K/uL Nucleated Red Blood Cells % 1.1 % Hypochromasia PRESENT Poikilocytosis PRESENT Anisocytosis PRESENT Venous Blood pH 7.41 Venous Blood Partial Pressure CO2 44 mmHg Venous Blood Partial Pressure O2 65 mmHg Venous Blood HCO3 28 mmol/L Venous Blood Oxygen Saturation 89.4 % Venous Blood Base Excess 2.6 mEq/L Sodium Level 146 mmol/L Potassium Level 4.3 mmol/L Chloride Level 111 mmol/L Carbon Dioxide Level 28 mmol/L Anion Gap 8.0 mmol/L Blood Urea Nitrogen 53 mg/dl Creatinine 1.85 mg/dl Est Creatinine Clear Calc Drug Dose 37.0 ml/min Estimated GFR () 37.9 Estimated GFR (Non- 32.7 BUN/Creatinine Ratio 28.7 Random Glucose 134 mg/dl Calcium Level 8.0 mg/dl Phosphorus Level 4.1 mg/dl Magnesium Level 2.8 mg/dl Thyroid Stimulating Hormone (TSH) 3.440 uIu/ml Bedside Glucose 123 mg/dl 143 mg/dl Test 05/08/17 00:03 05/08/17 03:23 Bedside Glucose 157 mg/dl White Blood Count 10.77 K/uL Red Blood Count 4.39 M/uL Hemoglobin 9.0 g/dL Hematocrit 31.0 % Mean Corpuscular Volume 70.6 fL Mean Corpuscular Hemoglobin 20.5 pg Mean Corpuscular Hemoglobin Concent 29.0 g/dl Platelet Count 229 K/uL Mean Platelet Volume 10.0 fL Neutrophils (%) (Auto) 84.6 % Lymphocytes (%) (Auto) 6.9 % Monocytes (%) (Auto) 8.3 % Eosinophils (%) (Auto) 0.0 % Basophils (%) (Auto) 0.0 % Neutrophils # (Auto) 9.12 K/uL Lymphocytes # (Auto) 0.74 K/uL Monocytes # (Auto) 0.89 K/uL Eosinophils # (Auto) 0.00 K/uL Basophils # (Auto) 0.00 K/uL RDW Standard Deviation 49.8 fL RDW Coefficient of Variation 19.5 % Immature Granulocyte % (Auto) 0.2 % Immature Granulocyte # (Auto) 0.02 K/uL Nucleated RBC Absolute Count (auto) 0.05 K/uL Nucleated Red Blood Cells % 0.5 % Hypochromasia PRESENT Poikilocytosis PRESENT Anisocytosis PRESENT Prothrombin Time 28.1 SECONDS Prothromb Time International Ratio 2.5 Sodium Level 144 mmol/L Potassium Level 3.9 mmol/L Chloride Level 109 mmol/L Carbon Dioxide Level 27 mmol/L Anion Gap 8.0 mmol/L Blood Urea Nitrogen 49 mg/dl Creatinine 1.83 mg/dl Est Creatinine Clear Calc Drug Dose 36.5 ml/min Estimated GFR () 38.4 Estimated GFR (Non- 33.1 BUN/Creatinine Ratio 26.5 Random Glucose 154 mg/dl Calcium Level 7.6 mg/dl Phosphorus Level 3.7 mg/dl Magnesium Level 2.9 mg/dl Total Bilirubin 0.8 mg/dl Direct Bilirubin 0.3 mg/dl Aspartate Amino Transf (AST/SGOT) 55 U/L Alanine Aminotransferase (ALT/SGPT) 46 U/L Alkaline Phosphatase 78 U/L Total Protein 5.9 gm/dl Albumin 3.3 gm/dl Lipase 195 U/L Resident Tracking Resident Involvement: Resident Care Provided Care Provided: [facility]
[2017-05-08] MEDS ORDERED: BISACODYL 10 MG SUPP PR STA (07:16)
[2017-05-08] MEDS ORDERED: SOD PHOSPHATE/SOD BIPHOSPHATE ENEMA 132 ML BTL PR STA (07:16)
[2017-05-08] MEDS: ALBUT/IPRATROP 3MG/0.5MG NEB 3 ML VIAL INH SCH ×4 (07:25→19:03)
--- NOTE | 2017-05-08 07:26 | DIAGNOSTIC IMAGING REPORT ---
CHEST ONE VIEW PORTABLE CLINICAL HISTORY: 86 years-old Male presenting with Intubated/OG Tube. TECHNIQUE: Portable upright AP view of the chest was obtained. COMPARISON: 05/07/2017. FINDINGS: Interval extubation and removal of the nasogastric tube. Atherosclerosis of the aortic arch. Cardiac silhouette remains enlarged. Slight interval improved lung aeration. Persistent hazy bibasilar opacities likely with small left pleural effusion. Decreased size of small right pleural effusion. Osseous structures normal. Upper abdomen normal. IMPRESSION: 1. Interval extubation. 2. Slight improved aeration although with persistent mild pulmonary edema and decreasing effusions. 3. Cardiomegaly. Electronically signed by: Klever Ramos M.D. 05/08/2017 7:24 AM Dictated Date/Time: 05/08/2017 7:23 AM
--- NOTE | 2017-05-08 07:58 | DIAGNOSTIC IMAGING REPORT ---
ABD/PELVIS WITHOUT FOR STONE CLINICAL HISTORY: 86 years-old Male presenting with right abdominal pain. TECHNIQUE: Multidetector CT of the abdomen and pelvis was performed without the use of intravenous contrast. IV contrast: None. A dose lowering technique was used consistent with the principles of ALARA (as low as reasonably achievable). COMPARISON: 06/13/2013. CT DOSE (mGy.cm): The estimated cumulative dose is 1527.23 mGy.cm. FINDINGS: [employer] topogram: Unremarkable. Lung bases: Dependent consolidation and scattered debris in the subsegmental right lower lobe bronchi with bronchial wall thickening. Trace emphysematous changes. Multichamber enlargement of the heart. Coronary artery calcification. The intraventricular blood pool is less dense than the adjacent myocardium consistent with anemia. Small bilateral pleural effusions, right greater than left. Liver: Normal morphology. Normal density. Hypodensities in the liver, nonspecific but likely hepatic cysts. Biliary: No gross biliary ductal dilatation allowing for noncontrast technique. Gallbladder contains gallstones. Gallstones also noted in the common duct (series 3 image 140). Pancreas: Moderate parenchymal atrophy. Spleen: Normal noncontrast appearance. Adrenal glands: Nonspecific mild nodular thickening of the left adrenal gland. Right adrenal gland normal. Kidneys and ureters: Well-defined hypodensity in the right kidney, indeterminate but likely cyst. No hydronephrosis. Nonspecific perinephric fat infiltration. Ureters normal. Bladder: Bladder decompressed with a Root catheter. Pelvic organs: Diffuse calcification in the prostate likely relates to the presence of benign prostatic hyperplasia. Bowel: Diverticulosis of the proximal sigmoid:. No bowel obstruction. Moderate hiatal hernia. Fluid noted adjacent to the hiatal hernia may represent pleural fluid dissecting into the mediastinal fat. Peritoneal cavity: Persistent infiltration of the root of the small bowel mesentery with associated scattered small lymph nodes. Small free fluid in the abdomen and pelvis. The sacral infiltration also noted, new from prior. No free intraperitoneal gas. Lymph nodes: No gross lymphadenopathy allowing for noncontrast technique. Vasculature: Aneurysmal dilatation of the abdominal aorta at the level of the renal arteries measuring up to 4.8 cm in diameter. Overall tortuosity and irregularity of the abdominal aorta, which demonstrates atherosclerosis. Abdominal wall: Bilateral inguinal hernias. Diastases of the abdominis rectus. Mild body wall edema Musculoskeletal: Degenerative changes of the spine. IMPRESSION: 1. Findings most consistent with volume overload with cardiomegaly, small bilateral pleural effusions, small volume ascites, retroperitoneal infiltration, and mild body wall edema. 2. Choledocholithiasis and cholelithiasis without significant biliary ductal dilatation. 3. Dependent consolidation in the lungs likely passive atelectasis secondary to the presence of pleural fluid. 4. Anemia. 5. 4.8 cm abdominal aortic aneurysm. 6. Findings suggestive of mesenteric panniculitis, unchanged from prior. Electronically signed by: Klever Ramos M.D. 05/08/2017 7:57 AM Dictated Date/Time: 05/08/2017 7:48 AM
[2017-05-08] MEDS: LOSARTAN POTASSIUM 25 MG TAB PO SCH (08:36)
[2017-05-08] MEDS: SERTRALINE HCL 50 MG TAB PO SCH (08:36)
[2017-05-08] MEDS: DOCUSATE SODIUM 100 MG/10 ML UDC PO SCH ×2 (08:37→21:01)
[2017-05-08] MEDS: METOPROLOL TARTRATE 25 MG TAB PO SCH ×2 (08:37→21:01)
[2017-05-08] MEDS: METHYLPREDNISOLONE IV 40 MG in SYRINGE 0 ML IV SCH ×2 (08:39→21:01)
[2017-05-08] MEDS: POLYETHYLENE (MIRALAX) 17 GM PACK PO SCH (08:39)
[2017-05-08] MEDS ORDERED: POLYETHYLENE (MIRALAX) 17 GM PACK ONE (08:39)
[2017-05-08] MEDS: PANTOprazole SOD 40 MG TAB PO SCH (10:55)
[2017-05-08] MEDS: FUROSEMIDE 80 MG TAB PO SCH (10:55)
[2017-05-08] MEDS: POTASSIUM CHLORIDE 10 MEQ TABCR PO SCH (10:56)
[2017-05-08] MEDS ORDERED: ACETAMINOPHEN 325 MG TAB ONE (14:18)
[2017-05-08] MEDS ORDERED: FUROSEMIDE INJ 40 MG in SYRINGE 0 ML IV STA (18:15)
[2017-05-08] MEDS: ACETAMINOPHEN 325 MG TAB PO PRN (18:34)
[2017-05-08] MEDS: QUETIAPINE FUMARATE 25 MG TAB PO SCH (21:01)
--- NOTE | 2017-05-08 21:29 | Progress Note ---
Subjective Date of Service: May 08, 2017. Subjective Pt evaluation today including: conversation w/ patient, conversation w/ family (daughter at bedside), physical exam, chart review, lab review, review of studies (CT abd/pelvis), conversation w/ creative consultant (critical care), review of inpatient medication list Pain: had acute abdominal pain overnight, relieved with having bowel movement PO Intake: tolerating diet w/o getting worsening abd pain Voiding: putnam catheter in place tele - stable - a. fib with rates 90s/100s patient forgetful during the visit, often asking the same questions over & over daughter at bedside confirmed that "for a while" he has had mild memory problems at home he forgets where he puts things, forgets where he rodgers his car, etc daughter confirms he does in fact see Dr. Chahal and was told "nothing else could be done" for his heart he denies complaints today Review of Systems Constitutional: No fever Respiratory: + dyspnea on exertion, No cough, No dyspnea at rest Cardiac: No chest pain Abdomen: + see HPI, + pain, No nausea, No vomiting Objective Vital Signs Date Time Temp Pulse Resp B/P (MAP) Pulse Ox O2 Delivery O2 Flow Rate FiO2 05/08/17 20:00 95 Nasal Cannula 2.0 05/08/17 19:53 36.9 97 18 131/86 (101) 96 05/08/17 19:04 88 20 91 Room Air 05/08/17 16:00 37.0 103 22 107/87 (94) 95 Room Air 05/08/17 16:00 Room Air 05/08/17 15:31 92 20 96 Nasal Cannula 2.0 05/08/17 12:00 36.5 104 19 125/83 (97) 97 Nasal Cannula 2.0 05/08/17 12:00 Nasal Cannula 2.0 05/08/17 11:25 93 20 95 Nasal Cannula 2.0 05/08/17 10:00 112 17 95/69 (78) 91 Nasal Cannula 2.0 05/08/17 08:00 Nasal Cannula 2.0 05/08/17 08:00 36.8 95 24 101/63 (76) 93 Nasal Cannula 2.0 05/08/17 07:25 99 20 95 Nasal Cannula 2.0 05/08/17 06:00 85 15 128/78 (95) 95 Nasal Cannula 2.0 05/08/17 04:00 Nasal Cannula 2.0 05/08/17 04:00 37.0 91 18 119/78 (92) 95 Nasal Cannula 2.0 05/08/17 02:00 92 19 112/79 (90) 95 Nasal Cannula 2.0 05/08/17 01:30 89 25 104/68 (80) 95 2.0 05/08/17 01:00 90 18 107/77 (87) 93 Nasal Cannula 2.0 05/08/17 00:30 87 21 103/90 (94) 93 2.0 05/08/17 00:00 Nasal Cannula 2.0 05/08/17 00:00 36.8 90 17 108/78 (88) 95 Nasal Cannula 2.0 05/07/17 23:26 84 30 86/60 (69) 90 2.0 05/07/17 23:00 88 14 73/52 (59) 90 2.0 05/07/17 22:26 91 20 74/57 (63) 92 2.0 05/07/17 22:20 91 20 87/60 (69) 96 2.0 Physical Exam General Appearance: no apparent distress, + pertinent finding (sitting in chair comfortably) ENT: pharynx normal Neck: no JVD (sitting upright at 90 degrees) Respiratory/Chest: no respiratory distress, no accessory muscle use, + rales ( bases), + wheezing Cardiovascular: no gallop, + systolic murmur (LSB, 2/6), + irregularly irregular Abdomen: normal bowel sounds, soft, no organomegaly, + tenderness (b/l lower quadrants - mild; NO RUQ Pain) Extremities: no pedal edema 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: alert, + pertinent finding (mild confusion) Skin: + pallor Laboratory Results Last 24 Hours Test 05/08/17 00:03 05/08/17 03:23 05/08/17 09:00 Bedside Glucose 157 mg/dl White Blood Count 10.77 K/uL Red Blood Count 4.39 M/uL Hemoglobin 9.0 g/dL Hematocrit 31.0 % Mean Corpuscular Volume 70.6 fL Mean Corpuscular Hemoglobin 20.5 pg Mean Corpuscular Hemoglobin Concent 29.0 g/dl Platelet Count 229 K/uL Mean Platelet Volume 10.0 fL Neutrophils (%) (Auto) 84.6 % Lymphocytes (%) (Auto) 6.9 % Monocytes (%) (Auto) 8.3 % Eosinophils (%) (Auto) 0.0 % Basophils (%) (Auto) 0.0 % Neutrophils # (Auto) 9.12 K/uL Lymphocytes # (Auto) 0.74 K/uL Monocytes # (Auto) 0.89 K/uL Eosinophils # (Auto) 0.00 K/uL Basophils # (Auto) 0.00 K/uL RDW Standard Deviation 49.8 fL RDW Coefficient of Variation 19.5 % Immature Granulocyte % (Auto) 0.2 % Immature Granulocyte # (Auto) 0.02 K/uL Nucleated RBC Absolute Count (auto) 0.05 K/uL Nucleated Red Blood Cells % 0.5 % Hypochromasia PRESENT Poikilocytosis PRESENT Anisocytosis PRESENT Prothrombin Time 28.1 SECONDS Prothromb Time International Ratio 2.5 Sodium Level 144 mmol/L Potassium Level 3.9 mmol/L Chloride Level 109 mmol/L Carbon Dioxide Level 27 mmol/L Anion Gap 8.0 mmol/L Blood Urea Nitrogen 49 mg/dl Creatinine 1.83 mg/dl Est Creatinine Clear Calc Drug Dose 36.5 ml/min Estimated GFR () 38.4 Estimated GFR (Non- 33.1 BUN/Creatinine Ratio 26.5 Random Glucose 154 mg/dl Calcium Level 7.6 mg/dl Phosphorus Level 3.7 mg/dl Magnesium Level 2.9 mg/dl Total Bilirubin 0.8 mg/dl Direct Bilirubin 0.3 mg/dl Aspartate Amino Transf (AST/SGOT) 55 U/L Alanine Aminotransferase (ALT/SGPT) 46 U/L Alkaline Phosphatase 78 U/L Total Protein 5.9 gm/dl Albumin 3.3 gm/dl Lipase 195 U/L Stool Occult Blood POSITIVE Assessment and Plan 86yo male - 1. acute hypoxic/hypercarbic resp failure - 2nd to CHF +/- COPD - improved. He was vented early on during his stay with successful extubation. 2. acute/chronic systolic CHF - echo shows that EF is worse relative to previous echo. Cont to diurese. Cont BB. Cont losartan. 3. a. fib with RVR - improved. Coumadin on hold due to significant microcytic anemia. Appreciate cardiology consult. 4. microcytic anemia 2nd to iron def anemia - made pt/daughter aware of such. Stool is heme +. Agree w/ holding coumadin. Start iron tomorrow. H/H am. 5. wheezing - 2nd to #2? Underlying COPD/emphysema? Bronchodilators, diurese, steroids. 6. hyperthyroidism - TSH compensated. On methimazole. 7. CKD - stage 3? unsure of baseline - last creatinine was 2 years ago. BMP in am. 8. 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 9. abd pain - constipation? CBD stone seen on CT? panniculitis? other? despite the pain he is eating & comfortable. LFTs in am. serial exams. 10. suspected mild cognitive impairment/early dementia - check b12 to be complete. May have superimposed metabolic encephalopathy/hospital psychosis. 11. antipsychotic use at baseline - reason?? prescriber?? PT, OT when able transfer to telemetry will need rehab and I think he needs assisted living after that due to cognitive issues daughter updated Continued [facility] stay due to: multiple IV medications needed Discharge planning: uncertain (will need rehab )
[2017-05-09] VITALS (13 sets, daily range): BP systolic 92–123; BP diastolic 56–98; PULSE 76–104; TEMP 36.4–37; O2SAT 94–98
[2017-05-09] MEDS: ACETAMINOPHEN 325 MG TAB PO PRN (00:22)
[2017-05-09] MEDS ORDERED: FENTANYL CITRATE INJ 50 MCG/1 ML 2 ML VIAL ONE (00:44)
[2017-05-09] MEDS ORDERED: FENTANYL CITRATE INJ 50 MCG/1 ML 2 ML VIAL IV ONE (00:45)
--- NOTE | 2017-05-09 06:17 | Progress Note ---
Progress Note Date of Service May 09, 2017. Progress Note Contacted regarding recurring abdominal pain, diffuse in nature non radiating; hemodynamically stable Distention however soft abdomen, requesting food - KUB no overt findings ( waiting for final reading from radiologist) and LFTs pending; additionally added lipase/ amylase - Upright CXR to assess for perf - NPO until reassess by day team for need for NG/ slow advancement of diet
--- NOTE | 2017-05-09 06:39 | DIAGNOSTIC IMAGING REPORT ---
KUB HISTORY: Acute generalized abdominal pain and distention abd pain COMPARISON: CT abdomen and pelvis 05/08/2017, KUB 06/14/2013 FINDINGS: The bowel gas pattern is non-obstructive. There is no organomegaly. Indeterminate circular structure measuring 6.2 cm transversely overlies the left central abdomen, likely external to the patient. No renal calculi. No ureteral calculi. 9 mm calcification projecting over the right midabdomen correlates with a mesenteric calcification inferior to the transverse colon as seen on comparison CT. No pneumoperitoneum or pneumatosis. No fracture. Degenerative changes are seen about the hips and spine. IMPRESSION: 1. Nonobstructive bowel gas pattern. 2. No urolith identified. Electronically signed by: Troy Calzada M.D. 05/09/2017 6:38 AM Dictated Date/Time: 05/09/2017 6:35 AM
[2017-05-09] MEDS: ALBUT/IPRATROP 3MG/0.5MG NEB 3 ML VIAL INH SCH ×4 (06:57→18:58)
[2017-05-09 07:04] LABS: HEMATOCRIT 29.3 % (42-52); MEAN CELL VOLUME 70.8 fL (80-100); MEAN CORPUSCULAR HEMOGLOBIN 20.5 pg (25-34); MEAN PLATELET VOLUME 9.8 fL (7.4-10.4); PLATELET COUNT 184 K/uL (130-400); RED BLOOD COUNT 4.14 M/uL (4.7-6.1); WHITE BLOOD COUNT 9.28 K/uL (4.8-10.8)
[2017-05-09 07:18] LABS: ANISOCYTOSIS PRESENT; COMPLETE YES; HYPOCHROMIA PRESENT; IG% 0.3 %; LYMPH % 9.6 %; LYMPH ABS # 0.89 K/uL (1.2-3.4); MICROCYTOSIS PRESENT; MONO % 11.2 %; NEUT % 78.9 %; OVALOCYTES 1+; POIKILOCYTOSIS PRESENT
[2017-05-09 07:20] LABS: AMYLASE 118 U/L (25-115)
[2017-05-09 07:21] LABS: BUN/CREATININE RATIO 28.9 (10-20); CALCIUM 7.8 mg/dl (8.5-10.1); CREATININE 1.55 mg/dl (0.60-1.40)
--- NOTE | 2017-05-09 07:34 | DIAGNOSTIC IMAGING REPORT ---
CHEST ONE VIEW PORTABLE HISTORY: 86 years-old Male upright to assess for perf acute respiratory failure COMPARISON: Chest radiograph 05/08/2017 TECHNIQUE: Portable upright AP view of the chest FINDINGS: Cardiac silhouette is moderately enlarged, unchanged. Pulmonary vascular congestion with unchanged mild background interstitial coarsening again suggest mild pulmonary edema pattern which is unchanged. Mild blunting of the cost phrenic angle with hazy bibasilar densities. Atherosclerosis of the aorta. Patient is slightly rotated to the right. No pneumothorax. Bones are grossly intact. IMPRESSION: 1. Stable exam with cardiomegaly, trace effusions and mild pulmonary edema pattern. 2. Hazy bibasilar densities suggest atelectasis. 3. No pneumothorax. The above report was generated using voice recognition software. It may contain grammatical, syntax or spelling errors. Electronically signed by: Troy Calzada M.D. 05/09/2017 7:32 AM Dictated Date/Time: 05/09/2017 7:30 AM
[2017-05-09] MEDS: DOCUSATE SODIUM 100 MG/10 ML UDC PO SCH ×2 (08:03→20:36)
[2017-05-09] MEDS: METHYLPREDNISOLONE IV 40 MG in SYRINGE 0 ML IV SCH ×2 (08:03→20:36)
[2017-05-09] MEDS: LOSARTAN POTASSIUM 25 MG TAB PO SCH (08:04)
[2017-05-09] MEDS: POTASSIUM CHLORIDE 10 MEQ TABCR PO SCH (08:04)
[2017-05-09] MEDS: FUROSEMIDE 80 MG TAB PO SCH (08:04)
[2017-05-09] MEDS: METOPROLOL TARTRATE 25 MG TAB PO SCH ×2 (08:05→20:36)
[2017-05-09] MEDS: POLYETHYLENE (MIRALAX) 17 GM PACK PO SCH (08:05)
[2017-05-09] MEDS: PANTOprazole SOD 40 MG TAB PO SCH (08:05)
[2017-05-09] MEDS: METHIMAZOLE 5 MG TAB PO SCH (08:05)
[2017-05-09] MEDS: SERTRALINE HCL 50 MG TAB PO SCH (08:05)
--- NOTE | 2017-05-09 09:55 | Progress Note ---
Subjective Date of Service: May 09, 2017. Subjective Pt evaluation today including: conversation w/ patient, physical exam, chart review, lab review, review of inpatient medication list Pain: abdomen, right side - started again overnight PO Intake: NPO Voiding: no voiding problems tele with stable nimco savage overnight spoke with on-call resident physician this AM - he developed fairly severe abdominal pain again overnight requiring fentanyl IV the pain has been constant it is right-sided in origin and he points to the RLQ/right groin he has had nausea but no vomiting denies excessive burping, belching, flatus passage no fever denies any dyspnea or chest pain this am Review of Systems Constitutional: No fever, No chills Respiratory: + dyspnea on exertion, No dyspnea at rest Cardiac: No chest pain, No edema Abdomen: + see HPI, + pain, + nausea, No diarrhea, No GI bleeding Objective Vital Signs Date Time Temp Pulse Resp B/P (MAP) Pulse Ox O2 Delivery O2 Flow Rate FiO2 05/09/17 08:55 94 05/09/17 08:00 94 Nasal Cannula 2.0 05/09/17 07:25 36.4 96 27 123/93 (103) 94 Nasal Cannula 2.0 05/09/17 06:58 94 20 98 Room Air 05/09/17 05:04 88 103/69 (80) 05/09/17 04:38 36.8 96 18 92/59 (70) 94 Nasal Cannula 2.0 05/09/17 04:00 95 Nasal Cannula 2.0 05/09/17 00:25 37.0 95 18 109/98 (102) 96 Nasal Cannula 2.0 05/08/17 23:59 95 Nasal Cannula 2.0 05/08/17 20:00 95 Nasal Cannula 2.0 05/08/17 19:53 36.9 97 18 131/86 (101) 96 05/08/17 19:04 88 20 91 Room Air 05/08/17 16:00 37.0 103 22 107/87 (94) 95 Room Air 05/08/17 16:00 Room Air 05/08/17 15:31 92 20 96 Nasal Cannula 2.0 05/08/17 12:00 36.5 104 19 125/83 (97) 97 Nasal Cannula 2.0 05/08/17 12:00 Nasal Cannula 2.0 11/11/17 11:25 93 20 95 Nasal Cannula 2.0 05/08/17 10:00 112 17 95/69 (78) 91 Nasal Cannula 2.0 Physical Exam General Appearance: + mild distress (looks uncomfortable, occasionally clenching his jaw due to the abdominal pain) ENT: pharynx normal Neck: no JVD Respiratory/Chest: no respiratory distress, no accessory muscle use, + wheezing (mild end-exp; no rales) Cardiovascular: no gallop, + systolic murmur (2/6 LLSB), + irregularly irregular Abdomen: + pertinent finding (mildly distended, BS+, tender RUQ with deep palpation; mild tenderness epigastric region; NO PAIN IN THE RLQ OR LLQ; I am able to passively flex both hips which produced NO pain (despite him telling me that was where he hurt)) Extremities: no pedal edema 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: alert Skin: + pallor Laboratory Results Last 24 Hours Test 05/09/17 06:25 05/09/17 09:24 White Blood Count 9.28 K/uL Red Blood Count 4.14 M/uL Hemoglobin 8.5 g/dL Hematocrit 29.3 % Mean Corpuscular Volume 70.8 fL Mean Corpuscular Hemoglobin 20.5 pg Mean Corpuscular Hemoglobin Concent 29.0 g/dl Platelet Count 184 K/uL Mean Platelet Volume 9.8 fL Neutrophils (%) (Auto) 78.9 % Lymphocytes (%) (Auto) 9.6 % Monocytes (%) (Auto) 11.2 % Eosinophils (%) (Auto) 0.0 % Basophils (%) (Auto) 0.0 % Neutrophils # (Auto) 7.32 K/uL Lymphocytes # (Auto) 0.89 K/uL Monocytes # (Auto) 1.04 K/uL Eosinophils # (Auto) 0.00 K/uL Basophils # (Auto) 0.00 K/uL RDW Standard Deviation 50.7 fL RDW Coefficient of Variation 19.8 % Immature Granulocyte % (Auto) 0.3 % Immature Granulocyte # (Auto) 0.03 K/uL Nucleated RBC Absolute Count (auto) 0.06 K/uL Nucleated Red Blood Cells % 0.7 % Hypochromasia PRESENT Poikilocytosis PRESENT Anisocytosis PRESENT Microcytosis PRESENT Ovalocytes 1+ Sodium Level 147 mmol/L Potassium Level 4.0 mmol/L Chloride Level 109 mmol/L Carbon Dioxide Level 30 mmol/L Anion Gap 8.0 mmol/L Blood Urea Nitrogen 45 mg/dl Creatinine 1.55 mg/dl Est Creatinine Clear Calc Drug Dose 38.9 ml/min Estimated GFR () 46.9 Estimated GFR (Non- 40.5 BUN/Creatinine Ratio 28.9 Random Glucose 127 mg/dl Calcium Level 7.8 mg/dl Total Bilirubin 0.8 mg/dl Direct Bilirubin 0.3 mg/dl Aspartate Amino Transf (AST/SGOT) 60 U/L Alanine Aminotransferase (ALT/SGPT) 52 U/L Alkaline Phosphatase 78 U/L Total Protein 6.1 gm/dl Albumin 3.4 gm/dl Amylase Level 118 U/L Lipase 306 U/L Vitamin B12 Level 384 pg/mL Assessment and Plan 86yo male - 1. acute hypoxic/hypercarbic resp failure - 2nd to CHF +/- COPD - improved. He was vented early on during his stay with successful extubation. 2. acute/chronic systolic CHF - echo shows that EF is worse relative to previous echo. He appears euvolemic today or even slightly volume contracted. No further IV diuretics. Cont BB. Cont losartan. 3. a. fib with RVR - improved/controlled. Coumadin on hold due to significant microcytic anemia. Appreciate cardiology consult. 4. microcytic anemia 2nd to iron def anemia - Stool is heme +. Agree w/ holding coumadin. Will need iron replacement. H/H trended down modestly overnight but I don't think he is having webster or active GI bleeding. 5. abdominal pain - worse today and now constant. I am concerned it is biliary in origin given his recent CT showing gallstones and choledocholithiasis. amylase/lipase acceptable. LFTs still mildly elevated. Check blood cx's, lactate, and obtain STAT RUQ u/s. low threshold for antibiotics and GI/gen surg consultations. 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 I don't believe that this is the cause of his current symptoms. Aortic dissection? But recent CT without such but then again he did not have contrast. low threshold for re-imaging this. dilaudid 0.25mg IV q4h prn pain. 6. hyperthyroidism - TSH compensated. On methimazole. 7. CKD - stage 3? unsure of baseline - last creatinine was 2 years ago. Cr trended down. 8. 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 9. 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 May have superimposed metabolic encephalopathy/hospital psychosis. 10. antipsychotic use at baseline - reason?? prescriber?? Continued [facility] stay due to: multiple IV medications needed Discharge planning: uncertain (will need rehab )
--- NOTE | 2017-05-09 11:27 | DIAGNOSTIC IMAGING REPORT ---
GALLBLADDER-ABD LIMITED HISTORY: 86 years-old Male CBD stone on CT; abd pain; eval acute cholecystitis, etc follow-up study in a patient with acute right upper quadrant abdominal pain, cholelithiasis and choledocholithiasis COMPARISON: CT abdomen and pelvis 05/08/2017, Right upper quadrant ultrasound 06/13/2013 TECHNIQUE: Multiple real-time sonographic images of the abdominal right upper quadrant were obtained assessing grayscale appearance and color flow FINDINGS: Exam is mildly limited secondary to patient motion throughout the study. The common bile duct measures 0.6 cm, within normal limits. Pancreas is mostly obscured by bowel gas with the imaged pancreatic head and neck appearing unremarkable. There are a few hypoechoic lesions of the liver, largest of which is within the right hepatic lobe measuring up to 1.8 cm suggesting a cluster of hepatic cysts. No intrahepatic biliary ductal dilation identified. There is mild gallbladder distention with gallstones seen layering within the region of the gallbladder neck. Trace perihepatic and pericholecystic free fluid is noted. No gallbladder wall thickening. Previous described choledocholithiasis on comparison CT is not identified. Small right pleural effusion. Cyst of the super pole right kidney measures up to 2.7 cm. No hydronephrosis identified. IMPRESSION: 1. Cholelithiasis without gallbladder wall thickening or evidence of acute cholecystitis. 2. No biliary ductal dilation identified. The previously reported choledocholithiasis is not seen on this study. 3. Small right pleural effusion redemonstrated. Small amount of upper abdominal ascites again seen. The above report was generated using voice recognition software. It may contain grammatical, syntax or spelling errors. Electronically signed by: Troy Calzada M.D. 05/09/2017 11:26 AM Dictated Date/Time: 05/09/2017 11:17 AM
--- NOTE | 2017-05-09 13:24 | Medical Consult ---
Consultation Date of Consultation: May 09, 2017. Attending Physician: Tex Knapp MD Reason for Consultation: Abdominal pain, cholelithiasis via CT and U/S. History of Present Illness Patient presented to [facility] on a transfer from [facility] due to respiratory failure from pulmonary edema and possible infection - treated with steroids, antibiotics, NEBs and diuretics via medicine. We were consulted due to abdominal pain that started wednesday night into wednesday. Pain was relieved with BM. Pain returned again last night. CT abd/pelvis revealed Choledocholithiasis and cholelithiasis without significant biliary ductal. Gallbladder U/S revealed Cholelithiasis without gallbladder wall thickening or evidence of acute cholecystitis, No biliary ductal dilation identified. Denies nausea, vomiting, fever, chills. + BM yesterday without issues, urinating without trouble. Denies any relation to food. NPO except meds at present. Significant PMH include atrial fib/CHF-Diastolic Dysfunction/COPD/CRI, CVA. Items discovered in the outside hospital include iron deficiency anemia, 5.4cm AAA. Family History FH: cancer FHx: hypertension Kidney disease or stones Social History Smoking Status: Never Smoker Smokeless Tobacco Use: No Alcohol Use: none Drug Use: none Marital Status: Housing Status: lives with significant other Occupation Status: retired Allergies Coded Allergies: Iodinated Diagnostic Agents (Verified Allergy, Severe, ANAPHYLAXIS, ) Sulfa Antibiotics (Verified Allergy, Unknown, UNKNOWN, 04/30/15) Current Inpatient Medications Current Inpatient Medications Medications (Trade) Dose Ordered Sig/Claudia Route Start Time Stop Time Status Last Admin Dose Admin Sodium Chloride ([place] Nasal [place]) 1 sprays PRN PRN NA 05/07/17 07:15 06/06/17 07:14 Sertraline HCl (Zoloft Tab) 50 mg DAILY PO 05/07/17 14:00 06/06/17 13:59 05/09/17 08:05 50 MG Quetiapine Fumarate (seroQUEL TAB) 50 mg HS PO 05/07/17 21:00 06/06/17 20:59 05/08/17 21:01 50 MG Methylprednisolone Sodium Succinate 40 mg/Syringe 0.64 ml @ 1.5 mls/min Q12H IV 05/07/17 21:00 06/06/17 20:59 05/09/17 08:03 1.5 MLS/MIN Metoprolol Tartrate (Lopressor Tab) 12.5 mg BID PO 05/07/17 12:00 06/06/17 11:59 05/09/17 08:05 12.5 MG Losartan Potassium (coZAAR TAB) 25 mg QAM PO 05/08/17 09:00 06/07/17 08:59 05/09/17 08:04 25 MG Albuterol/ Ipratropium (Duoneb) 3 ml QIDR INH 05/07/17 16:00 06/06/17 15:59 05/09/17 11:18 3 ML Docusate Sodium (coLACE SYRUP) 100 mg BID PO 05/08/17 09:00 06/07/17 08:59 05/09/17 08:03 100 MG Polyethylene (Miralax Powder Packet) 17 gm DAILY PO 05/08/17 09:00 06/07/17 08:59 05/09/17 08:05 17 GM Furosemide (Lasix Tab) 80 mg QAM PO 05/08/17 09:00 06/07/17 08:59 05/09/17 08:04 80 MG Potassium Chloride (Klor-Con M10) 10 meq DAILY PO 05/08/17 09:00 06/07/17 08:59 05/09/17 08:04 10 MEQ Pantoprazole Sodium (Protonix Tab) 40 mg QAM PO 05/08/17 09:00 06/07/17 08:59 05/09/17 08:05 40 MG Acetaminophen (Tylenol Tab) 650 mg Q4H PRN PO 05/08/17 14:30 06/07/17 14:29 05/09/17 00:22 650 MG Methimazole (Methimazole Tab) 10 mg QAM PO 05/09/17 09:00 06/08/17 08:59 05/09/17 08:05 10 MG Hydromorphone HCl (Dilaudid Inj) 0.25 mg Q4H PRN IV 05/09/17 09:15 05/23/17 09:14 Review of Systems Constitutional: No fever, No chills, No sweats Abdomen: + pain (Abdominal), No nausea, No vomiting, No diarrhea, No constipation Genitourinary - Male: No hematuria, No dysuria Integumentary: No rash, No color change Physical Exam Date Time Temp Pulse Resp B/P (MAP) Pulse Ox O2 Delivery O2 Flow Rate FiO2 05/09/17 12:00 Nasal Cannula 2.0 05/09/17 11:18 85 20 96 Nasal Cannula 2.0 05/09/17 08:55 94 05/09/17 08:00 94 Nasal Cannula 2.0 05/09/17 07:25 36.4 96 27 123/93 (103) 94 Nasal Cannula 2.0 05/09/17 06:58 94 20 98 Nasal Cannula 2.0 05/09/17 05:04 88 103/69 (80) 05/09/17 04:38 36.8 96 18 92/59 (70) 94 Nasal Cannula 2.0 05/09/17 04:00 95 Nasal Cannula 2.0 05/09/17 00:25 37.0 95 18 109/98 (102) 96 Nasal Cannula 2.0 05/08/17 23:59 95 Nasal Cannula 2.0 05/08/17 20:00 95 Nasal Cannula 2.0 05/08/17 19:53 36.9 97 18 131/86 (101) 96 05/08/17 19:04 88 20 91 Room Air 05/08/17 16:00 37.0 103 22 107/87 (94) 95 Room Air 05/08/17 16:00 Room Air 05/08/17 15:31 92 20 96 Nasal Cannula 2.0 General Appearance: WD/WN, no apparent distress, + pertinent finding (mildly lethargic) Head: normocephalic, atraumatic Eyes: normal inspection Neck: supple, trachea midline Abdomen/GI: normal bowel sounds, soft, no organomegaly, no pulsatile mass (Hx AAA 5.4 cm), + tenderness (significant RUQ TTP, generalized mild abdominal pain) Neurologic/Psych: alert Skin: normal color, warm/dry, no rash Laboratory Results Last 24 Hours Test 05/09/17 06:25 05/09/17 09:24 White Blood Count 9.28 K/uL Red Blood Count 4.14 M/uL Hemoglobin 8.5 g/dL Hematocrit 29.3 % Mean Corpuscular Volume 70.8 fL Mean Corpuscular Hemoglobin 20.5 pg Mean Corpuscular Hemoglobin Concent 29.0 g/dl Platelet Count 184 K/uL Mean Platelet Volume 9.8 fL Neutrophils (%) (Auto) 78.9 % Lymphocytes (%) (Auto) 9.6 % Monocytes (%) (Auto) 11.2 % Eosinophils (%) (Auto) 0.0 % Basophils (%) (Auto) 0.0 % Neutrophils # (Auto) 7.32 K/uL Lymphocytes # (Auto) 0.89 K/uL Monocytes # (Auto) 1.04 K/uL Eosinophils # (Auto) 0.00 K/uL Basophils # (Auto) 0.00 K/uL RDW Standard Deviation 50.7 fL RDW Coefficient of Variation 19.8 % Immature Granulocyte % (Auto) 0.3 % Immature Granulocyte # (Auto) 0.03 K/uL Nucleated RBC Absolute Count (auto) 0.06 K/uL Nucleated Red Blood Cells % 0.7 % Hypochromasia PRESENT Poikilocytosis PRESENT Anisocytosis PRESENT Microcytosis PRESENT Ovalocytes 1+ Sodium Level 147 mmol/L Potassium Level 4.0 mmol/L Chloride Level 109 mmol/L Carbon Dioxide Level 30 mmol/L Anion Gap 8.0 mmol/L Blood Urea Nitrogen 45 mg/dl Creatinine 1.55 mg/dl Est Creatinine Clear Calc Drug Dose 38.9 ml/min Estimated GFR () 46.9 Estimated GFR (Non- 40.5 BUN/Creatinine Ratio 28.9 Random Glucose 127 mg/dl Calcium Level 7.8 mg/dl Total Bilirubin 0.8 mg/dl Direct Bilirubin 0.3 mg/dl Aspartate Amino Transf (AST/SGOT) 60 U/L Alanine Aminotransferase (ALT/SGPT) 52 U/L Alkaline Phosphatase 78 U/L Total Protein 6.1 gm/dl Albumin 3.4 gm/dl Amylase Level 118 U/L Lipase 306 U/L Vitamin B12 Level 384 pg/mL Lactic Acid Level 1.7 mmol/L Assessment & Plan 05/09/17: RUQ abdominal pain Patient seen and examined with Dr. Morocho. Pain, CT and U/S findings may represent gallbladder etiology Recommend HIDA scan to further evaluate for acute cholecystitis. Recommend CT Abd/Pelvis with IV/Oral contrast to further evaluate other intra -abdominal sources of pain - consider prehydration given Creatinine - Defer to medical judgement. Overall poor surgical candidate due to comorbid conditions - no surgical intervention at this time. Will continue to follow - appreciate input
[2017-05-09] MEDS: AMPICILLIN/SULBACTAM SOD INJ 3,000 MG in SODIUM CHLORIDE 0.9% 100ML 100 ML IV SCH ×2 (15:49→22:14)
[2017-05-09] MEDS: QUETIAPINE FUMARATE 25 MG TAB PO SCH (20:36)
[2017-05-09] MEDS: HYDROmorphone INJ 0.5 MG/0.5 ML SYR IV PRN (20:37)
--- NOTE | 2017-05-09 22:28 | DIAGNOSTIC IMAGING REPORT ---
MRCP HISTORY: 86 years-old Male question of choledocholithiasis, RUQ abd pain acute right upper quadrant abdominal pain. Cholelithiasis with questioned choledocholithiasis on comparison CT COMPARISON: CT abdomen and pelvis 05/08/2017, right upper quadrant ultrasound 05/09/2017 TECHNIQUE: MRCP without contrast was obtained according to institutional protocol FINDINGS: Study is very limited secondary to patient motion. Cholelithiasis redemonstrated with mild gallbladder distention measuring up to 10 x 3.4 cm. No significant gallbladder wall thickening or pericholecystic fluid collections identified. Mild perihepatic and perisplenic ascites again noted with small bilateral pleural effusions and bibasilar consolidative opacities suggesting atelectasis. Moderate cardiomegaly. Evaluation of the intrahepatic and extrahepatic biliary tree is limited secondary to extensive patient motion. Previously noted choledocholithiasis is not definitively seen on this study. Common bile duct appears normal, 0.6 cm. No significant intrahepatic biliary ductal dilation. There are a few scattered T2 hyperintense lesions of the liver, largest of which measures 1.4 cm in the subserosal right hepatic lobe segment V suggesting hepatic cyst. 7 mm probable cyst involves segment II of the liver. Moderate diffuse pancreatic atrophy with fatty replacement noted. No pancreatic ductal dilation or pancreatic divisum identified. Mild nonspecific perinephric inflammatory stranding. 2.2 cm T2 hyperintense cystic lesion of the interpolar right kidney suggests renal cyst. IMPRESSION: 1. Very limited study secondary to patient motion. Cholelithiasis and mild gallbladder distention without definite choledocholithiasis identified. No intrahepatic or extrahepatic biliary ductal dilation identified. 2. Small volume intra-abdominal ascites with small bilateral pleural effusions. 3. Circumscribed T2 hyperintense lesions of the liver are indeterminate without contrast, however suggest cysts. 4. 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 The above report was generated using voice recognition software. It may contain grammatical, syntax or spelling errors. Electronically signed by: Troy Calzada M.D. 05/09/2017 10:26 PM Dictated Date/Time: 05/09/2017 10:09 PM
[2017-05-10] VITALS (14 sets, daily range): BP systolic 99–130; BP diastolic 58–94; PULSE 74–105; TEMP 36.3–36.9; O2SAT 90–97
[2017-05-10] MEDS: HYDROmorphone INJ 0.5 MG/0.5 ML SYR IV PRN ×2 (00:55→05:34)
[2017-05-10] MEDS: AMPICILLIN/SULBACTAM SOD INJ 3,000 MG in SODIUM CHLORIDE 0.9% 100ML 100 ML IV SCH ×4 (03:01→21:19)
[2017-05-10 06:13] LABS: HEMATOCRIT 28.7 % (42-52); MEAN CELL VOLUME 70.3 fL (80-100); MEAN CORPUSCULAR HEMOGLOBIN 20.3 pg (25-34); MEAN CORPUSCULAR HGB CONC 28.9 g/dl (32-36); MEAN PLATELET VOLUME 10.4 fL (7.4-10.4); PLATELET COUNT 187 K/uL (130-400); RED BLOOD COUNT 4.08 M/uL (4.7-6.1); WHITE BLOOD COUNT 10.89 K/uL (4.8-10.8)
[2017-05-10 06:34] LABS: INR 1.7 (0.9-1.1); PARTIAL THROMBOPLASTIN RATIO 1.1; PROTHROMBIN TIME (PATIENT) 19.1 SECONDS (9.0-12.0)
[2017-05-10 06:40] LABS: BUN/CREATININE RATIO 29.3 (10-20); CREATININE 1.44 mg/dl (0.60-1.40)
[2017-05-10 06:43] LABS: ANISOCYTOSIS PRESENT; COMPLETE YES; IG% 0.4 %; LYMPH % 8.7 %; LYMPH ABS # 0.95 K/uL (1.2-3.4); MICROCYTOSIS PRESENT; MONO % 12.1 %; NEUT % 78.8 %; OVALOCYTES 1+; POIKILOCYTOSIS PRESENT
[2017-05-10] MEDS: ALBUT/IPRATROP 3MG/0.5MG NEB 3 ML VIAL INH SCH ×2 (06:58→11:39)
--- NOTE | 2017-05-10 07:06 | Surgery Progress Note ---
Surgery Progress Note Date of Service May 10, 2017. Subjective 86-year-old male transferred from [facility] for respiratory distress and congestive heart failure exacerbation, after being extubated he began having right-sided abdominal pain. He complains of pain mostly in the right lower quadrant. He has been tolerating liquids, but does say that he is still having pain. Denies nausea or vomiting. Objective Vital Signs: Date Time Temp Pulse Resp B/P (MAP) Pulse Ox O2 Delivery O2 Flow Rate FiO2 05/10/17 04:29 36.9 95 17 102/58 (73) 97 Nasal Cannula 2.5 05/10/17 04:12 Nasal Cannula 2.0 05/10/17 00:27 36.9 94 17 113/72 (86) 95 Nasal Cannula 2.5 05/09/17 23:59 Nasal Cannula 2.0 05/09/17 20:00 Nasal Cannula 2.0 05/09/17 19:53 36.8 76 20 95/56 (69) 96 05/09/17 18:58 95 18 96 Room Air 05/09/17 16:14 36.8 88 22 118/94 (102) 95 05/09/17 16:00 Room Air 05/09/17 14:42 104 20 96 Room Air 05/09/17 12:00 Nasal Cannula 2.0 05/09/17 11:18 85 20 96 Nasal Cannula 2.0 05/09/17 08:55 94 05/09/17 08:00 94 Nasal Cannula 2.0 05/09/17 07:25 36.4 96 27 123/93 (103) 94 Nasal Cannula 2.0 General Appearance: WD/WN, no apparent distress Abdomen: normal bowel sounds, non distended, soft, + tenderness (mild tenderness to palpation in right upper and lower quadrants. Negative Valencia sign.) Laboratory Results: Results Past 24 Hours Test 05/09/17 09:24 05/10/17 05:40 Range/Units Lactic Acid Level 1.7 0.4-2.0 mmol/L White Blood Count 10.89 4.8-10.8 K/uL Red Blood Count 4.08 4.7-6.1 M/uL Hemoglobin 8.3 14.0-18.0 g/dL Hematocrit 28.7 42-52 % Mean Corpuscular Volume 70.3 80-100 fL Mean Corpuscular Hemoglobin 20.3 25-34 pg Mean Corpuscular Hemoglobin Concent 28.9 32-36 g/dl Platelet Count 187 130-400 K/uL Mean Platelet Volume 10.4 7.4-10.4 fL Neutrophils (%) (Auto) 78.8 % Lymphocytes (%) (Auto) 8.7 % Monocytes (%) (Auto) 12.1 % Eosinophils (%) (Auto) 0.0 % Basophils (%) (Auto) 0.0 % Neutrophils # (Auto) 8.58 1.4-6.5 K/uL Lymphocytes # (Auto) 0.95 1.2-3.4 K/uL Monocytes # (Auto) 1.32 0.11-0.59 K/uL Eosinophils # (Auto) 0.00 0-0.5 K/uL Basophils # (Auto) 0.00 0-0.2 K/uL RDW Standard Deviation 50.3 36.4-46.3 fL RDW Coefficient of Variation 19.9 11.5-14.5 % Immature Granulocyte % (Auto) 0.4 % Immature Granulocyte # (Auto) 0.04 0.00-0.02 K/uL Nucleated RBC Absolute Count (auto) 0.10 0-0 K/uL Nucleated Red Blood Cells % 0.9 % Poikilocytosis PRESENT Anisocytosis PRESENT Microcytosis PRESENT Ovalocytes 1+ Prothrombin Time 19.1 9.0-12.0 SECONDS Prothromb Time International Ratio 1.7 0.9-1.1 Activated Partial Thromboplast Time 28.3 21.0-31.0 SECONDS Partial Thromboplastin Ratio 1.1 Sodium Level 147 136-145 mmol/L Potassium Level 4.0 3.5-5.1 mmol/L Chloride Level 107 98-107 mmol/L Carbon Dioxide Level 32 21-32 mmol/L Anion Gap 8.0 3-11 mmol/L Blood Urea Nitrogen 42 7-18 mg/dl Creatinine 1.44 0.60-1.40 mg/dl Est Creatinine Clear Calc Drug Dose 41.9 ml/min Estimated GFR () 51.3 Estimated GFR (Non- 44.3 BUN/Creatinine Ratio 29.3 10-20 Random Glucose 130 70-99 mg/dl Calcium Level 8.0 8.5-10.1 mg/dl Microbiology Results 05/09/17 Blood Culture, Received Pending 05/09/17 Blood Culture, Received Pending Diagnostic Interpretation: GALLBLADDER-ABD LIMITED HISTORY: 86 years-old Male CBD stone on CT; abd pain; eval acute cholecystitis, etc follow-up study in a patient with acute right upper quadrant abdominal pain, cholelithiasis and choledocholithiasis COMPARISON: CT abdomen and pelvis 05/08/2017, Right upper quadrant ultrasound 06/13/2013 TECHNIQUE: Multiple real-time sonographic images of the abdominal right upper quadrant were obtained assessing grayscale appearance and color flow FINDINGS: Exam is mildly limited secondary to patient motion throughout the study. The common bile duct measures 0.6 cm, within normal limits. Pancreas is mostly obscured by bowel gas with the imaged pancreatic head and neck appearing unremarkable. There are a few hypoechoic lesions of the liver, largest of which is within the right hepatic lobe measuring up to 1.8 cm suggesting a cluster of hepatic cysts. No intrahepatic biliary ductal dilation identified. There is mild gallbladder distention with gallstones seen layering within the region of the gallbladder neck. Trace perihepatic and pericholecystic free fluid is noted. No gallbladder wall thickening. Previous described choledocholithiasis on comparison CT is not identified. Small right pleural effusion. Cyst of the super pole right kidney measures up to 2.7 cm. No hydronephrosis identified. IMPRESSION: 1. Cholelithiasis without gallbladder wall thickening or evidence of acute cholecystitis. 2. No biliary ductal dilation identified. The previously reported choledocholithiasis is not seen on this study. 3. Small right pleural effusion redemonstrated. Small amount of upper abdominal ascites again seen. MRCP HISTORY: 86 years-old Male question of choledocholithiasis, RUQ abd pain acute right upper quadrant abdominal pain. Cholelithiasis with questioned choledocholithiasis on comparison CT COMPARISON: CT abdomen and pelvis 05/08/2017, right upper quadrant ultrasound 05/09/2017 TECHNIQUE: MRCP without contrast was obtained according to institutional protocol FINDINGS: Study is very limited secondary to patient motion. Cholelithiasis redemonstrated with mild gallbladder distention measuring up to 10 x 3.4 cm. No significant gallbladder wall thickening or pericholecystic fluid collections identified. Mild perihepatic and perisplenic ascites again noted with small bilateral pleural effusions and bibasilar consolidative opacities suggesting atelectasis. Moderate cardiomegaly. Evaluation of the intrahepatic and extrahepatic biliary tree is limited secondary to extensive patient motion. Previously noted choledocholithiasis is not definitively seen on this study. Common bile duct appears normal, 0.6 cm. No significant intrahepatic biliary ductal dilation. There are a few scattered T2 hyperintense lesions of the liver, largest of which measures 1.4 cm in the subserosal right hepatic lobe segment V suggesting hepatic cyst. 7 mm probable cyst involves segment II of the liver. Moderate diffuse pancreatic atrophy with fatty replacement noted. No pancreatic ductal dilation or pancreatic divisum identified. Mild nonspecific perinephric inflammatory stranding. 2.2 cm T2 hyperintense cystic lesion of the interpolar right kidney suggests renal cyst. IMPRESSION: 1. Very limited study secondary to patient motion. Cholelithiasis and mild gallbladder distention without definite choledocholithiasis identified. No intrahepatic or extrahepatic biliary ductal dilation identified. 2. Small volume intra-abdominal ascites with small bilateral pleural effusions. 3. Circumscribed T2 hyperintense lesions of the liver are indeterminate without contrast, however suggest cysts. 4. 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 Assessment & Plan 86-year-old male with multiple medical problems and admitted for CHF exacerbation and respiratory distress, now with right-sided abdominal pain. Unclear if this biliary etiology, but there is no evidence of choledocholithiasis on his MRCP, and he does not have an obstructive pattern on his labs. I would recommend a HIDA scan for further evaluation for cholecystitis if this is still a concern. He has multiple medical comorbidities and is a poor surgical candidate. If he is determined to have cholecystitis, he will need a thorough pre-operative risk assessment and may benefit from transfer to tertiary care center for surgery or percutaneous cholecystostomy tube placement. Surgery will continue to follow, call with questions or concerns
[2017-05-10] MEDS: METHYLPREDNISOLONE IV 40 MG in SYRINGE 0 ML IV SCH ×2 (07:35→21:19)
[2017-05-10] MEDS: METHIMAZOLE 5 MG TAB PO SCH (07:36)
[2017-05-10] MEDS: DOCUSATE SODIUM 100 MG/10 ML UDC PO SCH ×2 (07:36→20:37)
[2017-05-10] MEDS: POTASSIUM CHLORIDE 10 MEQ TABCR PO SCH (07:37)
[2017-05-10] MEDS: FUROSEMIDE 80 MG TAB PO SCH (07:37)
[2017-05-10] MEDS: LOSARTAN POTASSIUM 25 MG TAB PO SCH ×2 (07:37→20:37)
[2017-05-10] MEDS: PANTOprazole SOD 40 MG TAB PO SCH (07:38)
[2017-05-10] MEDS: SERTRALINE HCL 50 MG TAB PO SCH (07:38)
[2017-05-10] MEDS: POLYETHYLENE (MIRALAX) 17 GM PACK PO SCH (07:38)
[2017-05-10] MEDS: METOPROLOL TARTRATE 25 MG TAB PO SCH ×2 (07:38→20:38)
[2017-05-10] MEDS ORDERED: CYCLOBENZAPRINE HCL 10 MG TAB PO STA (09:58)
[2017-05-10] MEDS ORDERED: HYDROmorphone INJ 0.5 MG/0.5 ML SYR IV PRN (10:00)
[2017-05-10] MEDS ORDERED: KETOROLAC TROMETHAMINE 15 MG/ML VIAL IV. STA (10:13)
[2017-05-10] MEDS ORDERED: KETOROLAC TROMETHAMINE 15 MG/ML VIAL IV. SCH (10:13)
--- NOTE | 2017-05-10 15:04 | Progress Note ---
Subjective Date of Service: May 10, 2017. Subjective Pt evaluation today including: conversation w/ patient, conversation w/ family (daughter), physical exam, lab review, review of studies, conversation w/ senior professional services consultant, review of inpatient medication list Pain: bilateral flanks and legs, also RUQ PO Intake: NPO for HIDA Voiding: no voiding problems patient sitting in chair, appears uncomfortable, pointing to flanks bilaterally worse with movement also with pain in RUQ but no nausea, tolerated breakfast reviewed results of MRCP, general surgery recommending HIDA to rule out cholecystitis discussed with patient and his daughter on exam, felt that pain seemed to be more musculoskeletal, will try Flexeril Review of Systems Constitutional: + weakness, + fatigue Abdomen: + pain (RUQ) Musculoskeletal: + joint pain (bilateral flank pain, pain in thighs, worse with movement) All Other Systems: Reviewed and Negative Medications Current Inpatient Medications Medications (Trade) Dose Ordered Sig/Claudia Route Start Time Stop Time Status Last Admin Dose Admin Sodium Chloride ([place] Nasal [place]) 1 sprays PRN PRN NA 05/07/17 07:15 06/06/17 07:14 Sertraline HCl (Zoloft Tab) 50 mg DAILY PO 05/07/17 14:00 06/06/17 13:59 05/10/17 07:38 50 MG Quetiapine Fumarate (seroQUEL TAB) 50 mg HS PO 05/07/17 21:00 06/06/17 20:59 05/09/17 20:36 50 MG Methylprednisolone Sodium Succinate 40 mg/Syringe 0.64 ml @ 1.5 mls/min Q12H IV 05/07/17 21:00 05/10/17 23:00 05/10/17 07:35 1.5 MLS/MIN Metoprolol Tartrate (Lopressor Tab) 12.5 mg BID PO 05/07/17 12:00 06/06/17 11:59 05/10/17 07:38 12.5 MG Losartan Potassium (coZAAR TAB) 25 mg QAM PO 05/08/17 09:00 06/07/17 08:59 05/10/17 07:37 25 MG Docusate Sodium (coLACE SYRUP) 100 mg BID PO 05/08/17 09:00 06/07/17 08:59 05/10/17 07:36 100 MG Polyethylene (Miralax Powder Packet) 17 gm DAILY PO 05/08/17 09:00 06/07/17 08:59 05/10/17 07:38 17 GM Furosemide (Lasix Tab) 80 mg QAM PO 05/08/17 09:00 06/07/17 08:59 05/10/17 07:37 80 MG Potassium Chloride (Klor-Con M10) 10 meq DAILY PO 05/08/17 09:00 06/07/17 08:59 05/10/17 07:37 10 MEQ Pantoprazole Sodium (Protonix Tab) 40 mg QAM PO 05/08/17 09:00 06/07/17 08:59 05/10/17 07:38 40 MG Acetaminophen (Tylenol Tab) 650 mg Q4H PRN PO 05/08/17 14:30 06/07/17 14:29 05/09/17 00:22 650 MG Methimazole (Methimazole Tab) 10 mg QAM PO 05/09/17 09:00 06/08/17 08:59 05/10/17 07:36 10 MG Ampicillin Sodium/ Sulbactam Sodium 3000 mg/Sodium Chloride 108 ml @ 200 mls/hr Q6H IV 05/09/17 14:30 05/11/17 14:29 05/10/17 07:44 200 MLS/HR Hydromorphone HCl (Dilaudid Inj) 0.5 mg Q4H PRN IV 05/10/17 10:00 05/23/17 09:14 Albuterol/ Ipratropium (Duoneb) 3 ml Q6 PRN INH 05/10/17 18:00 06/06/17 15:59 Objective Vital Signs Date Time Temp Pulse Resp B/P (MAP) Pulse Ox O2 Delivery O2 Flow Rate FiO2 05/10/17 12:00 94 Room Air 05/10/17 11:39 74 18 92 Room Air 05/10/17 11:18 36.7 87 20 130/94 (106) 93 Room Air 05/10/17 08:00 94 Room Air 05/10/17 07:36 36.6 95 20 121/75 (90) 90 Room Air 05/10/17 06:58 105 18 94 Room Air 05/10/17 04:29 36.9 95 17 102/58 (73) 97 Nasal Cannula 2.5 05/10/17 04:12 Nasal Cannula 2.0 05/10/17 00:27 36.9 94 17 113/72 (86) 95 Nasal Cannula 2.5 05/09/17 23:59 Nasal Cannula 2.0 05/09/17 20:00 Nasal Cannula 2.0 05/09/17 19:53 36.8 76 20 95/56 (69) 96 05/09/17 18:58 95 18 96 Room Air 05/09/17 16:14 36.8 88 22 118/94 (102) 95 05/09/17 16:00 Room Air Physical Exam General Appearance: WD/WN, no apparent distress Eyes: normal inspection, EOMI, sclerae normal Neck: supple, no adenopathy, no JVD, trachea midline Respiratory/Chest: chest non-tender, lungs clear, normal breath sounds, no respiratory distress, no accessory muscle use Cardiovascular: regular rate, rhythm, no edema, no gallop, no JVD, no murmur Abdomen: normal bowel sounds, soft, no organomegaly, + tenderness (RUQ) Extremities: normal inspection, no pedal edema, no calf tenderness, normal capillary refill, pelvis stable, + pertinent finding (bilateraly flanks tender to palpation, thighs tender, pain worse with movement) 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: 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, alert, normal mood/affect, oriented x 3, + motor weakness (generalized) Skin: normal color, warm/dry, no rash Laboratory Results Last 24 Hours Test 05/10/17 05:40 05/10/17 07:30 White Blood Count 10.89 K/uL Red Blood Count 4.08 M/uL Hemoglobin 8.3 g/dL Hematocrit 28.7 % Mean Corpuscular Volume 70.3 fL Mean Corpuscular Hemoglobin 20.3 pg Mean Corpuscular Hemoglobin Concent 28.9 g/dl Platelet Count 187 K/uL Mean Platelet Volume 10.4 fL Neutrophils (%) (Auto) 78.8 % Lymphocytes (%) (Auto) 8.7 % Monocytes (%) (Auto) 12.1 % Eosinophils (%) (Auto) 0.0 % Basophils (%) (Auto) 0.0 % Neutrophils # (Auto) 8.58 K/uL Lymphocytes # (Auto) 0.95 K/uL Monocytes # (Auto) 1.32 K/uL Eosinophils # (Auto) 0.00 K/uL Basophils # (Auto) 0.00 K/uL RDW Standard Deviation 50.3 fL RDW Coefficient of Variation 19.9 % Immature Granulocyte % (Auto) 0.4 % Immature Granulocyte # (Auto) 0.04 K/uL Nucleated RBC Absolute Count (auto) 0.10 K/uL Nucleated Red Blood Cells % 0.9 % Poikilocytosis PRESENT Anisocytosis PRESENT Microcytosis PRESENT Ovalocytes 1+ Prothrombin Time 19.1 SECONDS Prothromb Time International Ratio 1.7 Activated Partial Thromboplast Time 28.3 SECONDS Partial Thromboplastin Ratio 1.1 Sodium Level 147 mmol/L Potassium Level 4.0 mmol/L Chloride Level 107 mmol/L Carbon Dioxide Level 32 mmol/L Anion Gap 8.0 mmol/L Blood Urea Nitrogen 42 mg/dl Creatinine 1.44 mg/dl Est Creatinine Clear Calc Drug Dose 41.9 ml/min Estimated GFR () 51.3 Estimated GFR (Non- 44.3 BUN/Creatinine Ratio 29.3 Random Glucose 130 mg/dl Calcium Level 8.0 mg/dl Bedside Glucose 125 mg/dl Assessment and Plan 86yo male - 1. acute hypoxic/hypercarbic resp failure - 2nd to CHF +/- COPD - improved. He was vented early on during his stay with successful extubation. breathing stable today on room air 2. acute/chronic systolic CHF - echo shows that EF is worse relative to previous echo. down to 25-30% continues to appear euvolemic Cont BB. Cont losartan. 3. a. fib with RVR - rates controlled on beta josefina. Coumadin on hold due to significant microcytic anemia. Appreciate cardiology consult. 4. microcytic anemia 2nd to iron def anemia - Stool is heme +. Agree w/ holding coumadin. Will need iron replacement. H/H trended down slightly to 8.3 from 8.5, no clear signs of bleeding 5. abdominal pain - RUQ but also in bilateral flanks amylase/lipase acceptable. LFTs only mildly elevated. US shows cholelithiasis, no signs of cholecystitis MRCP rules out choledocholithiasis HIDA scan this afternoon to rule out cholecystitis general surgery has mentioned that if it is cholecystitis, should consider transfer for percutaneous drain however, suspect that pain is musculoskeletal will treat with Flexeril, Toradol and Dilaudid watch for response 6. hyperthyroidism - TSH compensated. On methimazole. 7. CKD - stage 3? unsure of baseline - last creatinine was 2 years ago. Cr is stable today 8. 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 9. 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 May have superimposed metabolic encephalopathy/hospital psychosis. keep on tele today, follow up HIDA results Continued [facility] stay due to: multiple IV medications needed Discharge planning: uncertain (will need rehab )
--- NOTE | 2017-05-10 15:45 | DIAGNOSTIC IMAGING REPORT ---
HEPATOBILIARY HIDA IMAGING CLINICAL HISTORY: 86 years-old Male presenting with RUQ pain. TECHNIQUE: Immediately following the intravenous administration of 5.7 mCi Tc-99m Choletec, dynamic anterior abdominal imaging was performed. COMPARISON: MRCP from 05/09/2017. FINDINGS: Uniform hepatic tracer accumulation is shown. Prompt intrahepatic biliary excretion is seen. The gallbladder and common duct are visualized by 16-20 minutes, which is normal. This appearance represents the normal sequence of biliary excretion. However, small bowel is not visualized at 1 hour. 90 minute delayed imaging demonstrates excretion of radiotracer into the small bowel. IMPRESSION: 1. No evidence for cystic duct obstruction. No evidence of acute or chronic cholecystitis. 2. Delayed visualization of bowel beyond 1 hour can seen in the setting of common duct calculus, papillary stricture, sphincter of Oddi dysfunction, or prior morphine administration. Electronically signed by: Klever Ramos M.D. 05/10/2017 3:44 PM Dictated Date/Time: 05/10/2017 3:37 PM
[2017-05-10] MEDS ORDERED: ALBUT/IPRATROP 3MG/0.5MG NEB 3 ML VIAL INH PRN (18:00)
[2017-05-10] MEDS: CYCLOBENZAPRINE HCL 10 MG TAB PO PRN (18:58)
[2017-05-10] MEDS: QUETIAPINE FUMARATE 25 MG TAB PO SCH (20:38)
[2017-05-10] MEDS: KETOROLAC TROMETHAMINE 15 MG/ML VIAL IV. PRN (22:17)
[2017-05-11] VITALS (12 sets, daily range): BP systolic 95–128; BP diastolic 62–82; PULSE 84–108; TEMP 36.3–36.7; O2SAT 92–99
[2017-05-11] MEDS: AMPICILLIN/SULBACTAM SOD INJ 3,000 MG in SODIUM CHLORIDE 0.9% 100ML 100 ML IV SCH (02:04)
[2017-05-11] MEDS: CYCLOBENZAPRINE HCL 10 MG TAB PO PRN ×3 (04:26→11:19)
[2017-05-11 07:04] LABS: EOS % 0.1 %; HEMATOCRIT 24.4 % (42-52); IG% 0.5 %; LYMPH % 9.9 %; MEAN CELL VOLUME 69.9 fL (80-100); MEAN CORPUSCULAR HEMOGLOBIN 20.6 pg (25-34); MEAN CORPUSCULAR HGB CONC 29.5 g/dl (32-36); MEAN PLATELET VOLUME 9.5 fL (7.4-10.4); MONO % 12.8 %; NEUT % 76.7 %; PLATELET COUNT 178 K/uL (130-400); RED BLOOD COUNT 3.49 M/uL (4.7-6.1); WHITE BLOOD COUNT 13.08 K/uL (4.8-10.8)
[2017-05-11 07:25] LABS: ANISOCYTOSIS PRESENT; COMPLETE YES; HYPERSEGMENTED POLYS 1+; HYPOCHROMIA PRESENT; MICROCYTOSIS PRESENT; OVALOCYTES 1+
[2017-05-11 07:40] LABS: BUN/CREATININE RATIO 31.4 (10-20); CREATININE 1.4 mg/dl (0.60-1.40); MAGNESIUM 2.3 mg/dl (1.8-2.4); POTASSIUM 3.9 mmol/L (3.5-5.1)
[2017-05-11] MEDS: SERTRALINE HCL 50 MG TAB PO SCH (08:58)
[2017-05-11] MEDS: POTASSIUM CHLORIDE 10 MEQ TABCR PO SCH (08:58)
[2017-05-11] MEDS: METHIMAZOLE 5 MG TAB PO SCH (08:59)
[2017-05-11] MEDS: DOCUSATE SODIUM 100 MG/10 ML UDC PO SCH ×2 (09:00→19:43)
[2017-05-11] MEDS: POLYETHYLENE (MIRALAX) 17 GM PACK PO SCH (09:00)
[2017-05-11] MEDS: PANTOprazole SOD 40 MG TAB PO SCH ×2 (09:00→16:05)
[2017-05-11] MEDS: KETOROLAC TROMETHAMINE 15 MG/ML VIAL IV. PRN (09:06)
[2017-05-11] MEDS: METOPROLOL TARTRATE 25 MG TAB PO SCH ×2 (10:12→19:43)
--- NOTE | 2017-05-11 12:53 | DIAGNOSTIC IMAGING REPORT ---
PELVIS AND BILATERAL HIPS 5 VIEWS HISTORY: bilateral hip pain COMPARISON: None. FINDINGS: There is no fracture or dislocation. Soft tissues are unremarkable. Cartilage spaces within the bilateral hips are maintained for age. The sacrum is intact. IMPRESSION: No significant abnormality within the pelvis or hips for age. Electronically signed by: Marty Do M.D. 05/11/2017 12:51 PM Dictated Date/Time: 05/11/2017 12:49 PM
[2017-05-11] MEDS ORDERED: FUROSEMIDE INJ 20 MG in SYRINGE 0 ML IV SCH (13:00)
[2017-05-11 13:21] LABS: FERRITIN 38.5 ng/ml (8.0-388.0)
[2017-05-11] MEDS: FUROSEMIDE 80 MG TAB PO SCH (13:49)
--- NOTE | 2017-05-11 14:03 | Progress Note ---
Subjective Date of Service: May 11, 2017. Subjective Pt evaluation today including: conversation w/ patient, conversation w/ family (daughter), physical exam, lab review, conversation w/ construction safety consultant, review of inpatient medication list Pain: less pain today in hips and abdomen PO Intake: adequate Voiding: no voiding problems patient reports less pain today in abdomen, hips, legs and flanks seems to be responding well to Flexeril had difficulty sleeping last night, likely from pain and steroid at night reviewed labs, Hb down to 7.2, will give one unit Cr stable long talk with daughter regarding plan, would like to try for subacute rehab stay ordered pelvis/hip x-ray, no acute changes Review of Systems Constitutional: + weakness, + fatigue Musculoskeletal: + joint pain (bilateral hips, flanks) All Other Systems: Reviewed and Negative Medications Current Inpatient Medications Medications (Trade) Dose Ordered Sig/Claudia Route Start Time Stop Time Status Last Admin Dose Admin Sodium Chloride ([place] Nasal [place]) 1 sprays PRN PRN NA 05/07/17 07:15 06/06/17 07:14 Sertraline HCl (Zoloft Tab) 50 mg DAILY PO 05/07/17 14:00 06/06/17 13:59 05/11/17 08:58 50 MG Quetiapine Fumarate (seroQUEL TAB) 50 mg HS PO 05/07/17 21:00 06/06/17 20:59 05/10/17 20:38 50 MG Docusate Sodium (coLACE SYRUP) 100 mg BID PO 05/08/17 09:00 06/07/17 08:59 05/11/17 09:00 100 MG Polyethylene (Miralax Powder Packet) 17 gm DAILY PO 05/08/17 09:00 06/07/17 08:59 05/11/17 09:00 17 GM Furosemide (Lasix Tab) 80 mg QAM PO 05/08/17 09:00 06/07/17 08:59 Future Hold 05/10/17 07:37 80 MG Potassium Chloride (Klor-Con M10) 10 meq DAILY PO 05/08/17 09:00 06/07/17 08:59 05/11/17 08:58 10 MEQ Acetaminophen (Tylenol Tab) 650 mg Q4H PRN PO 05/08/17 14:30 06/07/17 14:29 05/09/17 00:22 650 MG Methimazole (Methimazole Tab) 10 mg QAM PO 05/09/17 09:00 06/08/17 08:59 05/11/17 08:59 10 MG Hydromorphone HCl (Dilaudid Inj) 0.5 mg Q4H PRN IV 05/10/17 10:00 05/23/17 09:14 Albuterol/ Ipratropium (Duoneb) 3 ml Q6 PRN INH 05/10/17 18:00 06/06/17 15:59 Ketorolac Tromethamine (Toradol Inj) 15 mg Q6H PRN IV. 05/10/17 15:30 05/15/17 15:29 05/11/17 09:06 15 MG Cyclobenzaprine HCl (Flexeril Tab) 10 mg TID PRN PO 05/10/17 15:30 06/09/17 15:29 05/11/17 11:19 10 MG Metoprolol Tartrate (Lopressor Tab) 25 mg BID PO 05/11/17 09:15 06/06/17 09:14 05/11/17 10:12 25 MG Prednisone (PredniSONE TAB) 20 mg DAILY PO 05/12/17 08:00 06/11/17 07:59 Pantoprazole Sodium (Protonix Tab) 40 mg BID17 PO 05/11/17 17:00 06/07/17 08:59 Furosemide 20 mg/ Syringe 2 ml @ 4 mls/min TODAY@1300 IV 05/11/17 13:00 05/11/17 18:00 Objective Vital Signs Date Time Temp Pulse Resp B/P (MAP) Pulse Ox O2 Delivery O2 Flow Rate FiO2 05/11/17 13:30 36.3 87 20 111/72 94 05/11/17 13:15 36.4 93 22 109/63 92 05/11/17 12:55 36.7 84 20 104/72 05/11/17 11:51 36.7 98 16 110/70 (83) 99 Room Air 05/11/17 10:40 Room Air 05/11/17 08:40 Room Air 05/11/17 07:59 36.6 108 16 128/81 (97) 92 Room Air 05/11/17 00:39 36.5 103 20 95/62 (73) 95 Room Air 05/11/17 00:00 Room Air 05/10/17 22:53 36.3 105 20 99/65 (76) 91 Room Air 05/10/17 20:35 76 110/69 (83) 05/10/17 17:15 36.7 89 20 102/62 (75) 92 Room Air 05/10/17 16:40 36.3 95 20 95 2.5 05/10/17 16:25 36.3 95 20 111/74 (86) 95 Room Air 05/10/17 16:00 94 Room Air Physical Exam General Appearance: WD/WN, no apparent distress ENT: normal ENT inspection, hearing grossly normal, pharynx normal Neck: supple, no adenopathy, no JVD, trachea midline Respiratory/Chest: chest non-tender, lungs clear, normal breath sounds, no respiratory distress, no accessory muscle use Cardiovascular: no edema, no gallop, no JVD, no murmur, + tachycardia Abdomen: normal bowel sounds, non tender, soft, no organomegaly Extremities: normal inspection, no pedal edema, no calf tenderness, normal capillary refill, pelvis stable, + pertinent finding (decreased ROM of hips and back due to pain) 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, no motor/sensory deficits, alert, normal mood/affect, oriented x 3 Skin: normal color, warm/dry, no rash Laboratory Results Last 24 Hours Test 05/11/17 06:24 05/11/17 07:50 05/11/17 11:47 White Blood Count 13.08 K/uL Red Blood Count 3.49 M/uL Hemoglobin 7.2 g/dL Hematocrit 24.4 % Mean Corpuscular Volume 69.9 fL Mean Corpuscular Hemoglobin 20.6 pg Mean Corpuscular Hemoglobin Concent 29.5 g/dl Platelet Count 178 K/uL Mean Platelet Volume 9.5 fL Neutrophils (%) (Auto) 76.7 % Lymphocytes (%) (Auto) 9.9 % Monocytes (%) (Auto) 12.8 % Eosinophils (%) (Auto) 0.1 % Basophils (%) (Auto) 0.0 % Neutrophils # (Auto) 10.03 K/uL Lymphocytes # (Auto) 1.30 K/uL Monocytes # (Auto) 1.67 K/uL Eosinophils # (Auto) 0.01 K/uL Basophils # (Auto) 0.00 K/uL RDW Standard Deviation 51.4 fL RDW Coefficient of Variation 20.5 % Immature Granulocyte % (Auto) 0.5 % Immature Granulocyte # (Auto) 0.07 K/uL Nucleated RBC Absolute Count (auto) 0.04 K/uL Nucleated Red Blood Cells % 0.3 % Hypersegmented Polys 1+ Hypochromasia PRESENT Anisocytosis PRESENT Microcytosis PRESENT Ovalocytes 1+ Sodium Level 143 mmol/L Potassium Level 3.9 mmol/L Chloride Level 105 mmol/L Carbon Dioxide Level 29 mmol/L Anion Gap 9.0 mmol/L Blood Urea Nitrogen 44 mg/dl Creatinine 1.40 mg/dl Est Creatinine Clear Calc Drug Dose 43.1 ml/min Estimated GFR () 53.1 Estimated GFR (Non- 45.8 BUN/Creatinine Ratio 31.4 Random Glucose 124 mg/dl Calcium Level 8.0 mg/dl Magnesium Level 2.3 mg/dl Iron Level 30 mcg/dl Total Iron Binding Capacity 476 mcg/dl Transferrin 323 mg/dl Transferrin % Saturation 7 % Ferritin 38.5 ng/ml Bedside Glucose 125 mg/dl 112 mg/dl Assessment and Plan 86yo male - 1. acute hypoxic/hypercarbic resp failure - 2nd to CHF +/- COPD - acute component resolved, breathing room air. He was vented early on during his stay with successful extubation. continue to maintain euvolemia and treat COPD 2. acute/chronic systolic CHF - echo shows that EF is worse relative to previous echo. down to 25-30% increased edema today in legs, will give Lasix IV after blood transfusion patient continues to have some tachycardia, BP low normal will stop Losartan 25mg, this is new medication increase metoprolol to 25mg BID will likely introduce Lisinopril 5mg daily tomorrow since it wouldn't affect blood pressure resume Lasix tomorrow at 40mg PO 3. a. fib with RVR - mild tachycardia today. continue to hold Coumadin due to significant microcytic anemia. increase metoprolol to 25mg BID 4. microcytic anemia 2nd to iron def anemia - Stool is heme + on 05/08 holding coumadin. ferritin low on testing today Hb down to 7.2, will transfuse one unit increase Protonix to BID consult GI for recommendations, saw Cortes[facility] in the past 5. abdominal pain, hip pain, flank pain amylase/lipase acceptable. LFTs only mildly elevated. US shows cholelithiasis, no signs of cholecystitis MRCP rules out choledocholithiasis HIDA scan with no signs of cholecystitis likely abdominal muscular pain from excessive coughing prior to admission pain improved with Flexeril and Toradol of note, hip and pelvis x-ray today shows no fractures PT/OT, ambulate BID 6. hyperthyroidism - TSH compensated. On methimazole. 7. CKD - stage 3? unsure of baseline - last creatinine was 2 years ago. Cr is stable today at 1.4 8. 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 9. 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 mild confusion, waxes and wanes, typical for mild hospital delirium PT/OT, transfuse one unit, repeat labs tomorrow plan for rehab on discharge, ultimate goal will be to return to home independently Continued [facility] stay due to: multiple IV medications needed Discharge planning: uncertain (will need rehab )
--- NOTE | 2017-05-11 14:39 | Gastrointestinal Consultation ---
Gastrointestinal Consultation Date of Consultation: May 11, 2017 Attending Physician: Woody Soares Consulting Physician: Osiel Jiménez Reason for Consultation: Heme positive stools, worsening anemia History of Present Illness Patient is a 86 year old male w PMHx of HTN, kidney stone, non Hodgkin's lymphoma, endocarditis who was initially transferred from [facility] for respiratory failure secondary to pulmonary edema, CHF, COPD. He was intubated, extubated on 05/08, treated w steroids, antibx, nebs. Currently off O2, c/o non productive cough starting today but no SOB, CP, not dyspenic at rest. Pt was noted to be anemic w Hgb of 7.9 on admission (baseline 11-), given 1U PRBC on 05/06, then Hgb improved to 9. Over the last few days, Hgb slowly dropped again to now 7.2. He is going to have 2nd unit of PRBC this afternoon. His stools tested heme positive on 05/08. His last BM was 4 days ago , reports hard stool, feels constipated. Though stool are brown, no rectal bleeding. No n/v, hematemesis or coffee ground emesis. He never had any EGD or colonoscopy evals in the past. Pt previously was c/o RUQ abd pain, w/o n/v. LFTs w mild transaminitis <100. Normal Tbili and Alk phos. Initial CT abd/pelvis w/o contrast suspicious for choledocholithiasis. But subsequent u/s, MRCP showed no choledocholithiasis, CBD 0.6cm, + liver cysts, pancreas fatty and atrophic. HIDA scan w/o evidence of cholecystitis but delayed small bowel activity at 90mins. Pt had been seen by Surgery (Dr. Morocho) - no plans on surgical intervention, and also deemed not a good surgical candidate given his comorbidities. Currently he denies any abd pain, in fact tolerating regular consistency diet well w/o pain or n/v. Past Medical/Surgical History Past Medical History: See above Past Surgical History: Tonsillectomy Lithotripsy Cataract Skin lesion removal Family History FH: cancer FHx: hypertension Kidney disease or stones Social History Smoking Status: Never Smoker Alcohol Use: none Drug Use: none Marital Status: Housing Status: lives with significant other Occupation Status: retired Allergies Coded Allergies: Iodinated Diagnostic Agents (Verified Allergy, Severe, ANAPHYLAXIS, 11/4/ 15) Sulfa Antibiotics (Verified Allergy, Unknown, UNKNOWN, 04/30/15) Current Medications Home Meds and Scripts Medications Dose Route/Sig Max Daily Dose Days Date Category Dose Instructions Meclizine HCl 25 Mg Tab 25 Mg PO Q6H PRN 05/06/15 Rx Robitussin-Ac Syrup (Codeine Phosphate/Guaifenesin) 10 Ml/Cup Syrp 10 Ml PO Q6H PRN 7 05/06/15 Rx Aspirin EC Low Dose (Aspirin) 81 Mg Ectab 81 Mg PO QAM 30 05/06/15 Rx Atorvastatin Calcium (Atorvastatin) 40 Mg Tab 40 Mg PO QAM 30 05/06/15 Rx [Amoxicillin/Clavulanate Potas] 875 MG Tab 875 Mg PO BIDM 5 05/06/15 Rx Seroquel (Quetiapine Fumarate) 200 Mg Tab 300 Mg PO HS 04/30/15 Reported 1 AND 1/2 TABLET DOSE Zestril (Lisinopril) 5 Mg Tab 5 Mg PO BID 04/30/15 Reported Methimazole (Methimazole) 5 Mg Tab 10 Mg PO DAILY 04/30/15 Reported Levofloxacin 500 Mg Tab 500 Mg PO DAILY@11 01/08/15 Rx Zoloft (Sertraline HCl) 50 Mg Tab 50 Mg PO DAILY 30 01/05/15 Reported Neurontin (Gabapentin) 100 Mg Cap 100 Mg PO HS 01/05/15 Reported Review of Systems Constitutional: No fever, No chills Respiratory: + cough, No sputum, No shortness of breath, No dyspnea at rest Abdomen: + constipation, No pain, No nausea, No vomiting Skin: No rash, No itch, No jaundice Physical Exam Date Time Temp Pulse Resp B/P (MAP) Pulse Ox O2 Delivery O2 Flow Rate FiO2 05/11/17 11:51 36.7 98 16 110/70 (83) 99 Room Air 05/11/17 10:40 Room Air 05/11/17 08:40 Room Air 05/11/17 07:59 36.6 108 16 128/81 (97) 92 Room Air 05/11/17 00:39 36.5 103 20 95/62 (73) 95 Room Air 05/11/17 00:00 Room Air 05/10/17 22:53 36.3 105 20 99/65 (76) 91 Room Air 05/10/17 20:35 76 110/69 (83) 05/10/17 17:15 36.7 89 20 102/62 (75) 92 Room Air 05/10/17 16:40 36.3 95 20 95 2.5 05/10/17 16:25 36.3 95 20 111/74 (86) 95 Room Air 05/10/17 16:00 94 Room Air General Appearance: WD/WN, no apparent distress Eyes: normal inspection, PERRL, EOMI Neck: supple, no JVD, trachea midline Respiratory/Chest: no respiratory distress, no accessory muscle use, + decreased breath sounds (on RLL) Cardiovascular: regular rate, rhythm, no gallop, no murmur Abdomen: normal bowel sounds, non tender, soft Extremities: normal inspection, + swelling (+1 pitting edema on bilateral lower legs ) Neurologic/Psych: alert, normal mood/affect, oriented x 3 Skin: normal color, no jaundice, no rash Laboratory Results Last 24 Hours Test 05/11/17 06:24 05/11/17 07:50 05/11/17 11:47 White Blood Count 13.08 K/uL Red Blood Count 3.49 M/uL Hemoglobin 7.2 g/dL Hematocrit 24.4 % Mean Corpuscular Volume 69.9 fL Mean Corpuscular Hemoglobin 20.6 pg Mean Corpuscular Hemoglobin Concent 29.5 g/dl Platelet Count 178 K/uL Mean Platelet Volume 9.5 fL Neutrophils (%) (Auto) 76.7 % Lymphocytes (%) (Auto) 9.9 % Monocytes (%) (Auto) 12.8 % Eosinophils (%) (Auto) 0.1 % Basophils (%) (Auto) 0.0 % Neutrophils # (Auto) 10.03 K/uL Lymphocytes # (Auto) 1.30 K/uL Monocytes # (Auto) 1.67 K/uL Eosinophils # (Auto) 0.01 K/uL Basophils # (Auto) 0.00 K/uL RDW Standard Deviation 51.4 fL RDW Coefficient of Variation 20.5 % Immature Granulocyte % (Auto) 0.5 % Immature Granulocyte # (Auto) 0.07 K/uL Nucleated RBC Absolute Count (auto) 0.04 K/uL Nucleated Red Blood Cells % 0.3 % Hypersegmented Polys 1+ Hypochromasia PRESENT Anisocytosis PRESENT Microcytosis PRESENT Ovalocytes 1+ Sodium Level 143 mmol/L Potassium Level 3.9 mmol/L Chloride Level 105 mmol/L Carbon Dioxide Level 29 mmol/L Anion Gap 9.0 mmol/L Blood Urea Nitrogen 44 mg/dl Creatinine 1.40 mg/dl Est Creatinine Clear Calc Drug Dose 43.1 ml/min Estimated GFR () 53.1 Estimated GFR (Non- 45.8 BUN/Creatinine Ratio 31.4 Random Glucose 124 mg/dl Calcium Level 8.0 mg/dl Magnesium Level 2.3 mg/dl Bedside Glucose 125 mg/dl 112 mg/dl Impression Patient is a 86 year old male initially admitted for respiratory failure secondary to COPD, CHF, pulmonary edema ? infection, needing intubation, nebs, steroids, IV antibx, diuretics. He is currently much improved. GI seeing him for worsening anemia and heme positive stools. Admission Hgb 7.9 (baseline 11-12 ), treated w 1U PRBC transfusion - improved to 9 but last couple of day dropped down to 7.2 again slowly. He is w/o gerda s/s of GI bleeding (last BM 4 days ago , solid brown stool, no n/v, hematemesis/coffee ground emesis). He has never had any endoscopic evals including a screening colonoscopy. Plan - Discussed at length w pt, family (dght, nephews) possible etiologies of anemia including chronic blood loss possibly from GI tract, chronic kidney disease, bone marrow suppression, inadequate dietary intake of iron, malignancy. 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 though anemic and having heme positive stools, he is w/o gerda s/s of GI bleeding. At this time risk of endoscopies would outweigh benefits and would recommend deferring EGD/ Colonoscopy evals. Family and pt in agreement. We can re-discuss indications for these procedures if anemia continues to worsen or if he's having s/s of active GI bleeding. - Monitor H/H and transfuse prn. - Check iron panel, ferritin. FA, B12 normal - He was on ASA and Coumadin prior to admission for Afib. Would defer to Cardiology on timing on restarting these meds. - Regarding hx of RUQ pain, ? choledocholithiasis - less likely any biliary obstruction given no Tbili or Alk phos elevation, and pt tolerating solid foods well w/o any more pain, n/v. I have personally seen and examined patient with RADHA Karimi. Her note reflects my exam and findings. I agree with her impression and plan. Patient has not shown signs of active bleeding- no BMS. No need for endoscopy at this time. Osiel Jiménez M.D.
--- NOTE | 2017-05-11 15:24 | Surgery Progress Note ---
Surgery Progress Note Date of Service May 11, 2017. Subjective + diet (regular), No complaints, No bowel movement (none recent), No nausea Objective Vital Signs: Date Time Temp Pulse Resp B/P (MAP) Pulse Ox O2 Delivery O2 Flow Rate FiO2 05/11/17 14:38 36.6 91 20 101/64 95 05/11/17 14:00 36.6 86 20 104/67 93 05/11/17 13:30 36.3 87 20 111/72 94 05/11/17 13:15 36.4 93 22 109/63 92 05/11/17 12:55 36.7 84 20 104/72 05/11/17 11:51 36.7 98 16 110/70 (83) 99 Room Air 05/11/17 10:40 Room Air 05/11/17 08:40 Room Air 05/11/17 07:59 36.6 108 16 128/81 (97) 92 Room Air 05/11/17 00:39 36.5 103 20 95/62 (73) 95 Room Air 05/11/17 00:00 Room Air 05/10/17 22:53 36.3 105 20 99/65 (76) 91 Room Air 05/10/17 20:35 76 110/69 (83) 05/10/17 17:15 36.7 89 20 102/62 (75) 92 Room Air 05/10/17 16:40 36.3 95 20 95 2.5 05/10/17 16:25 36.3 95 20 111/74 (86) 95 Room Air 05/10/17 16:00 94 Room Air Abdomen: soft, + tenderness (minimal RUQ) Laboratory Results: Results Past 24 Hours Test 05/11/17 06:24 05/11/17 07:50 05/11/17 11:47 Range/Units White Blood Count 13.08 4.8-10.8 K/uL Red Blood Count 3.49 4.7-6.1 M/uL Hemoglobin 7.2 14.0-18.0 g/dL Hematocrit 24.4 42-52 % Mean Corpuscular Volume 69.9 80-100 fL Mean Corpuscular Hemoglobin 20.6 25-34 pg Mean Corpuscular Hemoglobin Concent 29.5 32-36 g/dl Platelet Count 178 130-400 K/uL Mean Platelet Volume 9.5 7.4-10.4 fL Neutrophils (%) (Auto) 76.7 % Lymphocytes (%) (Auto) 9.9 % Monocytes (%) (Auto) 12.8 % Eosinophils (%) (Auto) 0.1 % Basophils (%) (Auto) 0.0 % Neutrophils # (Auto) 10.03 1.4-6.5 K/uL Lymphocytes # (Auto) 1.30 1.2-3.4 K/uL Monocytes # (Auto) 1.67 0.11-0.59 K/uL Eosinophils # (Auto) 0.01 0-0.5 K/uL Basophils # (Auto) 0.00 0-0.2 K/uL RDW Standard Deviation 51.4 36.4-46.3 fL RDW Coefficient of Variation 20.5 11.5-14.5 % Immature Granulocyte % (Auto) 0.5 % Immature Granulocyte # (Auto) 0.07 0.00-0.02 K/uL Nucleated RBC Absolute Count (auto) 0.04 0-0 K/uL Nucleated Red Blood Cells % 0.3 % Hypersegmented Polys 1+ Hypochromasia PRESENT Anisocytosis PRESENT Microcytosis PRESENT Ovalocytes 1+ Sodium Level 143 136-145 mmol/L Potassium Level 3.9 3.5-5.1 mmol/L Chloride Level 105 98-107 mmol/L Carbon Dioxide Level 29 21-32 mmol/L Anion Gap 9.0 3-11 mmol/L Blood Urea Nitrogen 44 7-18 mg/dl Creatinine 1.40 0.60-1.40 mg/dl Est Creatinine Clear Calc Drug Dose 43.1 ml/min Estimated GFR () 53.1 Estimated GFR (Non- 45.8 BUN/Creatinine Ratio 31.4 10-20 Random Glucose 124 70-99 mg/dl Calcium Level 8.0 8.5-10.1 mg/dl Magnesium Level 2.3 1.8-2.4 mg/dl Iron Level 30 35-175 mcg/dl Total Iron Binding Capacity 476 250-450 mcg/dl Transferrin 323 200-360 mg/dl Transferrin % Saturation 7 20-50 % Ferritin 38.5 8.0-388.0 ng/ml Bedside Glucose 125 112 70-99 mg/dl Diagnostic Interpretation: HEPATOBILIARY HIDA IMAGING CLINICAL HISTORY: 86 years-old Male presenting with RUQ pain. TECHNIQUE: Immediately following the intravenous administration of 5.7 mCi Tc-99m Choletec, dynamic anterior abdominal imaging was performed. COMPARISON: MRCP from 05/09/2017. FINDINGS: Uniform hepatic tracer accumulation is shown. Prompt intrahepatic biliary excretion is seen. The gallbladder and common duct are visualized by 16-20 minutes, which is normal. This appearance represents the normal sequence of biliary excretion. However, small bowel is not visualized at 1 hour. 90 minute delayed imaging demonstrates excretion of radiotracer into the small bowel. IMPRESSION: 1. No evidence for cystic duct obstruction. No evidence of acute or chronic cholecystitis. 2. Delayed visualization of bowel beyond 1 hour can seen in the setting of common duct calculus, papillary stricture, sphincter of Oddi dysfunction, or prior morphine administration. Electronically signed by: Klever Ramos M.D. 05/10/2017 3:44 PM Dictated Date/Time: 05/10/2017 3:37 PM Assessment & Plan right sided abdominal pain tolerating diet, HIDA negative for cystic obstruction/cholecystitis being transfused for anemia, seen by GI no plans for cholecystectomy will sign off
[2017-05-11] MEDS: QUETIAPINE FUMARATE 25 MG TAB PO SCH (19:43)
[2017-05-12] MEDS: KETOROLAC TROMETHAMINE 15 MG/ML VIAL IV. PRN ×2 (00:43→07:12)
[2017-05-12 07:06] LABS: EOS % 2.8 %; HEMATOCRIT 26.1 % (42-52); IG% 0.7 %; LYMPH % 17.2 %; MEAN CELL VOLUME 71.9 fL (80-100); MEAN CORPUSCULAR HEMOGLOBIN 20.9 pg (25-34); MEAN CORPUSCULAR HGB CONC 29.1 g/dl (32-36); MEAN PLATELET VOLUME 9.3 fL (7.4-10.4); MONO % 15.3 %; PLATELET COUNT 155 K/uL (130-400); RED BLOOD COUNT 3.63 M/uL (4.7-6.1); WHITE BLOOD COUNT 11.61 K/uL (4.8-10.8)
[2017-05-12] MEDS: FUROSEMIDE 40 MG TAB PO SCH (07:12)
[2017-05-12] MEDS: CYCLOBENZAPRINE HCL 10 MG TAB PO PRN (07:12)
[2017-05-12] MEDS: DOCUSATE SODIUM 100 MG/10 ML UDC PO SCH ×2 (07:12→19:59)
[2017-05-12] MEDS: POTASSIUM CHLORIDE 10 MEQ TABCR PO SCH (07:13)
[2017-05-12] MEDS: METOPROLOL TARTRATE 25 MG TAB PO SCH ×2 (07:13→19:59)
[2017-05-12] MEDS: METHIMAZOLE 5 MG TAB PO SCH (07:13)
[2017-05-12] MEDS: PANTOprazole SOD 40 MG TAB PO SCH ×2 (07:13→16:58)
[2017-05-12] MEDS: SERTRALINE HCL 50 MG TAB PO SCH (07:14)
[2017-05-12] MEDS: POLYETHYLENE (MIRALAX) 17 GM PACK PO SCH (07:14)
[2017-05-12 07:16] VITALS: BP 113/71; PULSE 96; TEMP 36.4; O2SAT 97
[2017-05-12 07:33] LABS: ANISOCYTOSIS PRESENT; COMPLETE YES; HYPERSEGMENTED POLYS 1+; HYPOCHROMIA PRESENT; MICROCYTOSIS PRESENT; OVALOCYTES 1+; POIKILOCYTOSIS PRESENT
[2017-05-12 07:46] LABS: BUN/CREATININE RATIO 32.7 (10-20); CREATININE 1.51 mg/dl (0.60-1.40); MAGNESIUM 2.3 mg/dl (1.8-2.4); POTASSIUM 3.7 mmol/L (3.5-5.1)
--- NOTE | 2017-05-12 08:39 | Gastroenterology Progress Note ---
Progress Note Date of Service: May 12, 2017 Subjective Pt evaluation today including: conversation w/ patient, physical exam, chart review, lab review, review of inpatient medication list Pt said feels a "little rough" w some R mid abd pain. He is sitting up eating breakfast, said pain is not worse w eating and is handled well w current meds. No N/V. He had BM last night and this AM - brown, no blood noted. Hgb to 7.6 today. Review of Systems Constitutional: No fever, No chills Respiratory: No cough Cardiac: No chest pain Abdomen: + pain, No nausea, No vomiting, No GI bleeding Medications Current Inpatient Medications Medications (Trade) Dose Ordered Sig/Claudia Route Start Time Stop Time Status Last Admin Dose Admin Sodium Chloride ([place] Nasal [place]) 1 sprays PRN PRN NA 05/07/17 07:15 06/06/17 07:14 Sertraline HCl (Zoloft Tab) 50 mg DAILY PO 05/07/17 14:00 06/06/17 13:59 05/12/17 07:14 50 MG Quetiapine Fumarate (seroQUEL TAB) 50 mg HS PO 05/07/17 21:00 06/06/17 20:59 05/11/17 19:43 50 MG Docusate Sodium (coLACE SYRUP) 100 mg BID PO 05/08/17 09:00 06/07/17 08:59 05/12/17 07:12 100 MG Polyethylene (Miralax Powder Packet) 17 gm DAILY PO 05/08/17 09:00 06/07/17 08:59 05/11/17 09:00 17 GM Furosemide (Lasix Tab) 80 mg QAM PO 05/08/17 09:00 06/07/17 08:59 Future Hold 05/10/17 07:37 80 MG Potassium Chloride (Klor-Con M10) 10 meq DAILY PO 05/08/17 09:00 06/07/17 08:59 05/12/17 07:13 10 MEQ Acetaminophen (Tylenol Tab) 650 mg Q4H PRN PO 05/08/17 14:30 06/07/17 14:29 05/09/17 00:22 650 MG Methimazole (Methimazole Tab) 10 mg QAM PO 05/09/17 09:00 06/08/17 08:59 05/12/17 07:13 10 MG Hydromorphone HCl (Dilaudid Inj) 0.5 mg Q4H PRN IV 05/10/17 10:00 05/23/17 09:14 05/12/17 07:59 0.5 MG Albuterol/ Ipratropium (Duoneb) 3 ml Q6 PRN INH 05/10/17 18:00 06/06/17 15:59 Ketorolac Tromethamine (Toradol Inj) 15 mg Q6H PRN IV. 05/10/17 15:30 05/15/17 15:29 05/12/17 07:12 15 MG Cyclobenzaprine HCl (Flexeril Tab) 10 mg TID PRN PO 05/10/17 15:30 06/09/17 15:29 05/12/17 07:12 10 MG Metoprolol Tartrate (Lopressor Tab) 25 mg BID PO 05/11/17 09:15 06/06/17 09:14 05/12/17 07:13 25 MG Prednisone (PredniSONE TAB) 20 mg DAILY PO 05/12/17 08:00 06/11/17 07:59 05/12/17 07:13 20 MG Pantoprazole Sodium (Protonix Tab) 40 mg BID17 PO 05/11/17 17:00 06/07/17 08:59 05/12/17 07:13 40 MG Furosemide (Lasix Tab) 40 mg QAM PO 05/12/17 08:00 06/11/17 07:59 05/12/17 07:12 40 MG Objective Vital Signs Date Time Temp Pulse Resp B/P (MAP) Pulse Ox O2 Delivery O2 Flow Rate FiO2 05/12/17 07:16 36.4 96 20 113/71 (85) 97 Room Air 05/12/17 00:00 Room Air 05/11/17 23:49 87 20 119/69 (86) 95 Room Air 05/11/17 20:00 Room Air 05/11/17 16:02 92 Room Air 05/11/17 15:43 36.5 92 20 120/82 (95) 92 Room Air 05/11/17 15:30 36.5 92 20 120/82 92 05/11/17 14:38 36.6 91 20 101/64 95 05/11/17 14:00 36.6 86 20 104/67 93 11/14/17 13:30 36.3 87 20 111/72 94 05/11/17 13:15 36.4 93 22 109/63 92 05/11/17 12:55 36.7 84 20 104/72 05/11/17 11:51 36.7 98 16 110/70 (83) 99 Room Air 05/11/17 10:40 Room Air 05/11/17 08:40 Room Air Physical Exam General Appearance: WD/WN, no apparent distress Eyes: normal inspection, PERRL, EOMI Neck: supple, no JVD, trachea midline Respiratory/Chest: normal breath sounds, no respiratory distress, no accessory muscle use Cardiovascular: no gallop, no murmur, + irregularly irregular Abdomen: normal bowel sounds, non tender, soft Extremities: normal inspection, no pedal edema, no calf tenderness Neurologic/Psych: alert, normal mood/affect, oriented x 3 Skin: normal color, no jaundice, no rash Laboratory Results Last 24 Hours Test 05/11/17 11:47 05/11/17 16:29 05/11/17 20:00 05/12/17 06:53 Bedside Glucose 112 mg/dl 147 mg/dl 160 mg/dl White Blood Count 11.61 K/uL Red Blood Count 3.63 M/uL Hemoglobin 7.6 g/dL Hematocrit 26.1 % Mean Corpuscular Volume 71.9 fL Mean Corpuscular Hemoglobin 20.9 pg Mean Corpuscular Hemoglobin Concent 29.1 g/dl Platelet Count 155 K/uL Mean Platelet Volume 9.3 fL Neutrophils (%) (Auto) 64.0 % Lymphocytes (%) (Auto) 17.2 % Monocytes (%) (Auto) 15.3 % Eosinophils (%) (Auto) 2.8 % Basophils (%) (Auto) 0.0 % Neutrophils # (Auto) 7.42 K/uL Lymphocytes # (Auto) 2.00 K/uL Monocytes # (Auto) 1.78 K/uL Eosinophils # (Auto) 0.33 K/uL Basophils # (Auto) 0.00 K/uL RDW Standard Deviation 55.2 fL RDW Coefficient of Variation 21.2 % Immature Granulocyte % (Auto) 0.7 % Immature Granulocyte # (Auto) 0.08 K/uL Nucleated RBC Absolute Count (auto) 0.03 K/uL Nucleated Red Blood Cells % 0.3 % Hypersegmented Polys 1+ Hypochromasia PRESENT Poikilocytosis PRESENT Anisocytosis PRESENT Microcytosis PRESENT Ovalocytes 1+ Sodium Level 144 mmol/L Potassium Level 3.7 mmol/L Chloride Level 107 mmol/L Carbon Dioxide Level 33 mmol/L Anion Gap 4.0 mmol/L Blood Urea Nitrogen 49 mg/dl Creatinine 1.51 mg/dl Est Creatinine Clear Calc Drug Dose 40.0 ml/min Estimated GFR () 48.5 Estimated GFR (Non- 41.8 BUN/Creatinine Ratio 32.7 Random Glucose 97 mg/dl Calcium Level 8.0 mg/dl Magnesium Level 2.3 mg/dl Test 05/12/17 07:51 Bedside Glucose 99 mg/dl Assessment and Plan Patient is a 86 year old male initially admitted for respiratory failure secondary to COPD, CHF, pulmonary edema ? infection, needing intubation, nebs, steroids, IV antibx, diuretics. He is currently much improved. GI seeing him for worsening anemia and heme positive stools. Admission Hgb 7.9 (baseline 11-12 ), treated w 1U PRBC transfusion - improved to 9 but last couple of day dropped down to 7.2 again slowly. He is w/o gerda s/s of GI bleeding (last BM 4 days ago , solid brown stool, no n/v, hematemesis/coffee ground emesis). He has never had any endoscopic evals including a screening colonoscopy. Hgb from 7.2 to 7.6 after 1U PRBC yesterday. He had 2 BMs since I saw him and he notes them to be brown, no rectal bleeding. Some abd pain but controlled well , not worse w eating. Also no N/V. Plans - Discussed at length w pt, family (dght, nephews) possible etiologies of anemia including chronic blood loss possibly from GI tract, chronic kidney disease, bone marrow suppression, inadequate dietary intake of iron, malignancy. 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 though anemic and having heme positive stools, he is w/o gerda s/s of GI bleeding. At this time risk of endoscopies would outweigh benefits and would recommend deferring EGD/ Colonoscopy evals. Family and pt in agreement. We can re-discuss indications for these procedures if anemia continues to worsen or if he's having s/s of active GI bleeding. -> still defer endoscopies - Monitor H/H and transfuse prn. - Check iron panel, ferritin. FA, B12 normal -> low iron, will start Ferrous Sulfate 325mg BID - He was on ASA and Coumadin prior to admission for Afib. Would defer to Cardiology on timing on restarting these meds. - Regarding hx of RUQ pain, ? choledocholithiasis - less likely any biliary obstruction given no Tbili or Alk phos elevation, and pt tolerating solid foods well w/o any more pain, n/v. - We will watch peripherally, call if new questions/concerns arise. I performed a history and physical examination of the patient. I have discussed the patient's case, impression and plan with RADHA Karimi. Her note reflects my findings and plan. No signs of active GI bleeding. Given co morbid disease, we do not recommend invasive endoscopy at this time. Osiel Jiménez MD
[2017-05-12 15:21] VITALS: BP 125/79; PULSE 91; TEMP 36.4; O2SAT 97
[2017-05-12] MEDS: FERROUS SULFATE 325 MG TAB PO SCH (16:58)
[2017-05-12 19:55] VITALS: BP 120/76; PULSE 85
[2017-05-12] MEDS: QUETIAPINE FUMARATE 25 MG TAB PO SCH (19:58)
[2017-05-12 23:53] VITALS: BP 112/78; PULSE 65; TEMP 36.4; O2SAT 92
--- NOTE | 2017-05-13 00:17 | Progress Note ---
Subjective Date of Service: May 12, 2017. Subjective Pt evaluation today including: conversation w/ patient, conversation w/ family (daughter), physical exam, lab review, review of inpatient medication list Pain: controlled PO Intake: adequate Voiding: no voiding problems patient reports that his pain is well controlled, mostly in hips and legs, no further abdominal pain eating well, no nausea breathing comfortably, no peripheral edema labs: Hb 7.6 even after transfusion on 05/11 Cr stable at 1.5 updated daughter at the bedside Review of Systems Constitutional: + weakness, + fatigue Musculoskeletal: + joint pain (hips) All Other Systems: Reviewed and Negative Medications Current Inpatient Medications Medications (Trade) Dose Ordered Sig/Claudia Route Start Time Stop Time Status Last Admin Dose Admin Sodium Chloride ([place] Nasal [place]) 1 sprays PRN PRN NA 05/07/17 07:15 06/06/17 07:14 Sertraline HCl (Zoloft Tab) 50 mg DAILY PO 05/07/17 14:00 06/06/17 13:59 05/12/17 07:14 50 MG Quetiapine Fumarate (seroQUEL TAB) 50 mg HS PO 05/07/17 21:00 06/06/17 20:59 05/12/17 19:58 50 MG Docusate Sodium (coLACE SYRUP) 100 mg BID PO 05/08/17 09:00 06/07/17 08:59 05/12/17 07:12 100 MG Polyethylene (Miralax Powder Packet) 17 gm DAILY PO 05/08/17 09:00 06/07/17 08:59 05/11/17 09:00 17 GM Furosemide (Lasix Tab) 80 mg QAM PO 05/08/17 09:00 06/07/17 08:59 Future Hold 05/10/17 07:37 80 MG Potassium Chloride (Klor-Con M10) 10 meq DAILY PO 05/08/17 09:00 06/07/17 08:59 05/12/17 07:13 10 MEQ Acetaminophen (Tylenol Tab) 650 mg Q4H PRN PO 05/08/17 14:30 06/07/17 14:29 05/09/17 00:22 650 MG Methimazole (Methimazole Tab) 10 mg QAM PO 05/09/17 09:00 06/08/17 08:59 05/12/17 07:13 10 MG Hydromorphone HCl (Dilaudid Inj) 0.5 mg Q4H PRN IV 05/10/17 10:00 05/23/17 09:14 05/12/17 07:59 0.5 MG Albuterol/ Ipratropium (Duoneb) 3 ml Q6 PRN INH 05/10/17 18:00 06/06/17 15:59 Ketorolac Tromethamine (Toradol Inj) 15 mg Q6H PRN IV. 05/10/17 15:30 05/15/17 15:29 05/12/17 07:12 15 MG Cyclobenzaprine HCl (Flexeril Tab) 10 mg TID PRN PO 05/10/17 15:30 06/09/17 15:29 05/12/17 07:12 10 MG Metoprolol Tartrate (Lopressor Tab) 25 mg BID PO 05/11/17 09:15 06/06/17 09:14 05/12/17 19:59 25 MG Prednisone (PredniSONE TAB) 20 mg DAILY PO 05/12/17 08:00 06/11/17 07:59 05/12/17 07:13 20 MG Pantoprazole Sodium (Protonix Tab) 40 mg BID17 PO 05/11/17 17:00 06/07/17 08:59 05/12/17 16:58 40 MG Furosemide (Lasix Tab) 40 mg QAM PO 05/12/17 08:00 06/11/17 07:59 05/12/17 07:12 40 MG Ferrous Sulfate (Feosol Tab) 325 mg BIDM PO 05/12/17 17:00 06/11/17 16:59 05/12/17 16:58 325 MG Lisinopril (Zestril Tab) 2.5 mg QAM PO 05/13/17 08:00 06/12/17 07:59 Objective Vital Signs Date Time Temp Pulse Resp B/P (MAP) Pulse Ox O2 Delivery O2 Flow Rate FiO2 05/12/17 23:53 36.4 65 20 112/78 (89) 92 Room Air 05/12/17 19:55 85 120/76 (91) 05/12/17 16:00 Room Air 05/12/17 15:21 36.4 91 18 125/79 (94) 97 Room Air 05/12/17 09:30 Room Air 05/12/17 07:16 36.4 96 20 113/71 (85) 97 Room Air Physical Exam General Appearance: WD/WN, no apparent distress ENT: normal ENT inspection, hearing grossly normal, pharynx normal Neck: supple, no adenopathy, no JVD Respiratory/Chest: chest non-tender, lungs clear, normal breath sounds, no respiratory distress, no accessory muscle use Cardiovascular: regular rate, rhythm, no edema, no gallop, no JVD, no murmur Abdomen: normal bowel sounds, non tender, soft, no organomegaly Extremities: normal range of motion, normal inspection, no pedal edema, no calf tenderness, pelvis stable 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: 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, no motor/sensory deficits, alert, normal mood/affect, oriented x 3 Skin: normal color, warm/dry, no rash Laboratory Results Last 24 Hours Test 05/12/17 06:53 05/12/17 07:51 05/12/17 11:29 05/12/17 16:19 White Blood Count 11.61 K/uL Red Blood Count 3.63 M/uL Hemoglobin 7.6 g/dL Hematocrit 26.1 % Mean Corpuscular Volume 71.9 fL Mean Corpuscular Hemoglobin 20.9 pg Mean Corpuscular Hemoglobin Concent 29.1 g/dl Platelet Count 155 K/uL Mean Platelet Volume 9.3 fL Neutrophils (%) (Auto) 64.0 % Lymphocytes (%) (Auto) 17.2 % Monocytes (%) (Auto) 15.3 % Eosinophils (%) (Auto) 2.8 % Basophils (%) (Auto) 0.0 % Neutrophils # (Auto) 7.42 K/uL Lymphocytes # (Auto) 2.00 K/uL Monocytes # (Auto) 1.78 K/uL Eosinophils # (Auto) 0.33 K/uL Basophils # (Auto) 0.00 K/uL RDW Standard Deviation 55.2 fL RDW Coefficient of Variation 21.2 % Immature Granulocyte % (Auto) 0.7 % Immature Granulocyte # (Auto) 0.08 K/uL Nucleated RBC Absolute Count (auto) 0.03 K/uL Nucleated Red Blood Cells % 0.3 % Hypersegmented Polys 1+ Hypochromasia PRESENT Poikilocytosis PRESENT Anisocytosis PRESENT Microcytosis PRESENT Ovalocytes 1+ Sodium Level 144 mmol/L Potassium Level 3.7 mmol/L Chloride Level 107 mmol/L Carbon Dioxide Level 33 mmol/L Anion Gap 4.0 mmol/L Blood Urea Nitrogen 49 mg/dl Creatinine 1.51 mg/dl Est Creatinine Clear Calc Drug Dose 40.0 ml/min Estimated GFR () 48.5 Estimated GFR (Non- 41.8 BUN/Creatinine Ratio 32.7 Random Glucose 97 mg/dl Calcium Level 8.0 mg/dl Magnesium Level 2.3 mg/dl Bedside Glucose 99 mg/dl 212 mg/dl 143 mg/dl Test 05/12/17 20:09 Bedside Glucose 142 mg/dl Assessment and Plan 86yo male - 1. acute hypoxic/hypercarbic resp failure - 2nd to CHF +/- COPD - acute component resolved, breathing room air. He was vented early on during his stay with successful extubation. continue to maintain euvolemia and treat COPD 2. acute/chronic systolic CHF - echo shows that EF is worse relative to previous echo. down to 25-30% patient examines euvolemic today increased metoprolol to 25mg BID start lisinopril 2.5mg daily resumed Lasix at 40mg PO 3. a. fib with RVR - HR better controlled on metoprolol 25mg BID 4. microcytic anemia 2nd to iron def anemia - Stool is heme + on 05/08 continue to hold Coumadin ferritin low on 05/10 Hb down to 7.2, transfused one unit, up to 7.6 today increase Protonix to BID consult GI for recommendations, no plans for scopes, treat conservatively 5. abdominal pain, hip pain, flank pain amylase/lipase acceptable. LFTs only mildly elevated. US shows cholelithiasis, no signs of cholecystitis MRCP rules out choledocholithiasis HIDA scan with no signs of cholecystitis likely abdominal muscular pain from excessive coughing prior to admission pain improved with Flexeril and Toradol of note, hip and pelvis x-ray on 05/10 showed no fractures PT/OT, ambulate BID 6. hyperthyroidism - TSH compensated. On methimazole. 7. CKD - stage 3? unsure of baseline - last creatinine was 2 years ago. Cr is stable today at 1.5 8. 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 9. 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 PT/OT, repeat labs tomorrow plan for rehab on discharge, ultimate goal will be to return to home independently Continued [facility] stay due to: multiple IV medications needed Discharge planning: uncertain (will need rehab )
[2017-05-13] MEDS: KETOROLAC TROMETHAMINE 15 MG/ML VIAL IV. PRN (07:18)
[2017-05-13 07:48] VITALS: BP 126/76; PULSE 81; TEMP 36.5; O2SAT 95
[2017-05-13] MEDS: FERROUS SULFATE 325 MG TAB PO SCH ×2 (08:44→16:45)
[2017-05-13] MEDS: FUROSEMIDE 40 MG TAB PO SCH (08:45)
[2017-05-13] MEDS: METOPROLOL TARTRATE 25 MG TAB PO SCH ×2 (08:45→20:22)
[2017-05-13] MEDS: METHIMAZOLE 5 MG TAB PO SCH (08:45)
[2017-05-13] MEDS: POTASSIUM CHLORIDE 10 MEQ TABCR PO SCH (08:45)
[2017-05-13] MEDS: SERTRALINE HCL 50 MG TAB PO SCH (08:46)
[2017-05-13] MEDS: DOCUSATE SODIUM 100 MG/10 ML UDC PO SCH ×2 (08:46→20:23)
[2017-05-13] MEDS: LISINOPRIL 2.5 MG TAB PO SCH (08:46)
[2017-05-13] MEDS: PANTOprazole SOD 40 MG TAB PO SCH ×2 (08:46→16:46)
[2017-05-13] MEDS: POLYETHYLENE (MIRALAX) 17 GM PACK PO SCH (08:46)
[2017-05-13 10:06] LABS: BUN/CREATININE RATIO 31.7 (10-20); CREATININE 1.43 mg/dl (0.60-1.40); POTASSIUM 4.1 mmol/L (3.5-5.1)
[2017-05-13 10:24] LABS: HEMATOCRIT 26.6 % (42-52); MEAN CELL VOLUME 72.7 fL (80-100); MEAN CORPUSCULAR HEMOGLOBIN 21.6 pg (25-34); MEAN CORPUSCULAR HGB CONC 29.7 g/dl (32-36); MEAN PLATELET VOLUME 10.5 fL (7.4-10.4); PLATELET COUNT 143 K/uL (130-400); RED BLOOD COUNT 3.66 M/uL (4.7-6.1); WHITE BLOOD COUNT 9.54 K/uL (4.8-10.8)
[2017-05-13 10:26] LABS: PLT ESTIMATE NORMAL
[2017-05-13 10:57] VITALS: BP 135/80; PULSE 76; TEMP 36.4; O2SAT 97
--- NOTE | 2017-05-13 15:10 | Progress Note ---
Subjective Date of Service: May 13, 2017. Subjective Pt evaluation today including: conversation w/ patient, physical exam, lab review, review of inpatient medication list Pain: no pain PO Intake: adequate Voiding: no voiding problems patient feeling well no complaints today eating well, breathing stable reviewed labs, Hb 7.9, Cr stable therapy recommending rehab, planning on going tomorrow Review of Systems Cardiac: + edema (trace) All Other Systems: Reviewed and Negative Medications Current Inpatient Medications Medications (Trade) Dose Ordered Sig/Claudia Route Start Time Stop Time Status Last Admin Dose Admin Sodium Chloride ([place] Nasal [place]) 1 sprays PRN PRN NA 05/07/17 07:15 06/06/17 07:14 Sertraline HCl (Zoloft Tab) 50 mg DAILY PO 05/07/17 14:00 06/06/17 13:59 05/13/17 08:46 50 MG Quetiapine Fumarate (seroQUEL TAB) 50 mg HS PO 05/07/17 21:00 06/06/17 20:59 05/12/17 19:58 50 MG Docusate Sodium (coLACE SYRUP) 100 mg BID PO 05/08/17 09:00 06/07/17 08:59 05/12/17 07:12 100 MG Polyethylene (Miralax Powder Packet) 17 gm DAILY PO 05/08/17 09:00 06/07/17 08:59 05/11/17 09:00 17 GM Furosemide (Lasix Tab) 80 mg QAM PO 05/08/17 09:00 06/07/17 08:59 Future Hold 05/10/17 07:37 80 MG Potassium Chloride (Klor-Con M10) 10 meq DAILY PO 05/08/17 09:00 06/07/17 08:59 05/13/17 08:45 10 MEQ Acetaminophen (Tylenol Tab) 650 mg Q4H PRN PO 05/08/17 14:30 06/07/17 14:29 05/09/17 00:22 650 MG Methimazole (Methimazole Tab) 10 mg QAM PO 05/09/17 09:00 06/08/17 08:59 05/13/17 08:45 10 MG Hydromorphone HCl (Dilaudid Inj) 0.5 mg Q4H PRN IV 05/10/17 10:00 05/23/17 09:14 05/12/17 07:59 0.5 MG Albuterol/ Ipratropium (Duoneb) 3 ml Q6 PRN INH 05/10/17 18:00 06/06/17 15:59 Ketorolac Tromethamine (Toradol Inj) 15 mg Q6H PRN IV. 05/10/17 15:30 05/15/17 15:29 05/13/17 07:18 15 MG Cyclobenzaprine HCl (Flexeril Tab) 10 mg TID PRN PO 05/10/17 15:30 06/09/17 15:29 05/12/17 07:12 10 MG Metoprolol Tartrate (Lopressor Tab) 25 mg BID PO 05/11/17 09:15 06/06/17 09:14 05/13/17 08:45 25 MG Prednisone (PredniSONE TAB) 20 mg DAILY PO 05/12/17 08:00 06/11/17 07:59 05/13/17 08:45 20 MG Pantoprazole Sodium (Protonix Tab) 40 mg BID17 PO 05/11/17 17:00 06/07/17 08:59 05/13/17 08:46 40 MG Furosemide (Lasix Tab) 40 mg QAM PO 05/12/17 08:00 06/11/17 07:59 05/13/17 08:45 40 MG Ferrous Sulfate (Feosol Tab) 325 mg BIDM PO 05/12/17 17:00 06/11/17 16:59 05/13/17 08:44 325 MG Lisinopril (Zestril Tab) 2.5 mg QAM PO 05/13/17 08:00 06/12/17 07:59 05/13/17 08:46 2.5 MG Objective Vital Signs Date Time Temp Pulse Resp B/P (MAP) Pulse Ox O2 Delivery O2 Flow Rate FiO2 05/13/17 10:57 36.4 76 28 135/80 (98) 97 Room Air 05/13/17 09:49 Room Air 05/13/17 09:21 Room Air 05/13/17 07:48 36.5 81 20 126/76 (93) 95 Room Air 05/13/17 00:00 Room Air 05/12/17 23:53 36.4 65 20 112/78 (89) 92 Room Air 05/12/17 19:55 85 120/76 (91) 05/12/17 16:00 Room Air 05/12/17 15:21 36.4 91 18 125/79 (94) 97 Room Air Physical Exam General Appearance: WD/WN, no apparent distress Eyes: normal inspection, EOMI, sclerae normal Respiratory/Chest: chest non-tender, lungs clear, normal breath sounds, no respiratory distress, no accessory muscle use Cardiovascular: regular rate, rhythm, no edema, no gallop, no JVD, no murmur Abdomen: normal bowel sounds, non tender, soft, no organomegaly Extremities: normal range of motion, non-tender, normal inspection, no pedal edema, no calf tenderness, normal capillary refill, pelvis stable 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: 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, no motor/sensory deficits, alert, normal mood/affect, oriented x 3 Laboratory Results Last 24 Hours Test 05/12/17 16:19 05/12/17 20:09 05/13/17 07:52 05/13/17 09:36 Bedside Glucose 143 mg/dl 142 mg/dl 92 mg/dl White Blood Count 9.54 K/uL Red Blood Count 3.66 M/uL Hemoglobin 7.9 g/dL Hematocrit 26.6 % Mean Corpuscular Volume 72.7 fL Mean Corpuscular Hemoglobin 21.6 pg Mean Corpuscular Hemoglobin Concent 29.7 g/dl RDW Standard Deviation 56.7 fL RDW Coefficient of Variation 22.2 % Platelet Count 143 K/uL Mean Platelet Volume 10.5 fL Platelet Estimate NORMAL Sodium Level 144 mmol/L Potassium Level 4.1 mmol/L Chloride Level 108 mmol/L Carbon Dioxide Level 32 mmol/L Anion Gap 5.0 mmol/L Blood Urea Nitrogen 45 mg/dl Creatinine 1.43 mg/dl Est Creatinine Clear Calc Drug Dose 42.2 ml/min Estimated GFR () 51.8 Estimated GFR (Non- 44.7 BUN/Creatinine Ratio 31.7 Random Glucose 100 mg/dl Calcium Level 8.0 mg/dl Test 05/13/17 11:30 Bedside Glucose 164 mg/dl Assessment and Plan 86yo male - 1. acute hypoxic/hypercarbic resp failure - 2nd to CHF +/- COPD - acute component resolved, breathing room air. He was vented early on during his stay with successful extubation. continue to maintain euvolemia and treat COPD 2. acute/chronic systolic CHF - echo shows that EF is worse relative to previous echo. down to 25-30% patient examines euvolemic today increased metoprolol to 25mg BID start lisinopril 2.5mg daily resumed Lasix at 40mg PO mild peripheral edema today, will follow daily weights 3. a. fib with RVR - HR controlled on metoprolol 25mg BID 4. microcytic anemia 2nd to iron def anemia - Stool is heme + on 05/08 continue to hold Coumadin ferritin low on 05/10 Hb down to 7.2, transfused one unit on 05/11, up to 7.9 today increase Protonix to BID consult GI for recommendations, no plans for scopes, treat conservatively 5. abdominal pain, hip pain, flank pain amylase/lipase acceptable. LFTs only mildly elevated. US shows cholelithiasis, no signs of cholecystitis MRCP rules out choledocholithiasis HIDA scan with no signs of cholecystitis likely abdominal muscular pain from excessive coughing prior to admission pain improved with Flexeril and Toradol of note, hip and pelvis x-ray on 05/10 showed no fractures PT/OT, ambulate BID 6. hyperthyroidism - TSH compensated. On methimazole. 7. CKD - stage 3? unsure of baseline - last creatinine was 2 years ago. Cr is stable today at 1.4 8. 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 9. 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 PT/OT, repeat labs tomorrow plan for rehab on discharge, ultimate goal will be to return to home independently plan for [facility] tomorrow as long as labs remain stable Continued [facility] stay due to: multiple IV medications needed Discharge planning: uncertain (will need rehab )
[2017-05-13 15:33] VITALS: BP 107/62; PULSE 87; TEMP 36.7; O2SAT 92
[2017-05-13 16:03] VITALS: O2SAT 92
[2017-05-13 16:15] LABS: HEMATOCRIT 27.4 % (42-52)
--- NOTE | 2017-05-13 19:49 | Progress Note ---
Post ICU Progress Note Date & Time May 13, 2017 at 19:47 Vital Signs Vital Signs Past 12 Hours Date Time Temp Pulse Resp B/P (MAP) Pulse Ox O2 Delivery O2 Flow Rate FiO2 05/13/17 16:03 92 Room Air 05/13/17 15:33 36.7 87 20 107/62 (77) 92 Room Air 05/13/17 10:57 36.4 76 28 135/80 (98) 97 Room Air 05/13/17 09:49 Room Air 05/13/17 09:21 Room Air 05/13/17 07:48 36.5 81 20 126/76 (93) 95 Room Air Notes Mental Status: alert / awake Nausea / Vomiting: adequately controlled Pain: adequately controlled Airway Patency, RR, SpO2: stable & adequate BP & HR: stable & adequate Patient was initially admitted to our ICU as a transfer from an outside facility. The patient was intubated secondary to COPD exacerbation. He was found to have right upper quadrant abdominal pain throughout his stay. At this point, the patient reports that he feels much better. He offers no completes pain at this time. Review of his labs were without significant findings. Plan is to disposition to [facility] tomorrow for continued rehabilitation. Patient's daughter was present in the room and offers no complaint or questions at this time. Consider outpatient follow up in 1 to 2 weeks with: PCP as directed. Repeat imaging needed: Per attending services. Follow up cultures: N/A Reviewed progress notes, labs, and inpatient medication list Continue current management Additional recommendations: None at this time. Thank you for allowing us to participate in the care of this patient. At this time, Critical Care Services will sign off. Please feel free to reconsult as needed. Consults & Procedures Consultants: Critical care Cardiology Procedures: pRBC transfusion 05/06 Extubation 05/07
[2017-05-13] MEDS: QUETIAPINE FUMARATE 25 MG TAB PO SCH (20:23)
[2017-05-13] MEDS: ACETAMINOPHEN 325 MG TAB PO PRN (20:32)
[2017-05-13 23:46] VITALS: BP 110/71; PULSE 83; TEMP 36.7; O2SAT 92
[2017-05-14] MEDS: CYCLOBENZAPRINE HCL 10 MG TAB PO PRN (03:44)
[2017-05-14 07:25] VITALS: BP 114/66; PULSE 83; TEMP 36.6; O2SAT 95
[2017-05-14 07:29] LABS: HEMATOCRIT 27.7 % (42-52)
[2017-05-14 07:55] LABS: BUN/CREATININE RATIO 28.1 (10-20); CALCIUM 8.2 mg/dl (8.5-10.1); CREATININE 1.39 mg/dl (0.60-1.40); POTASSIUM 4.5 mmol/L (3.5-5.1)
[2017-05-14] MEDS: POLYETHYLENE (MIRALAX) 17 GM PACK PO SCH (08:00)
[2017-05-14] MEDS: FERROUS SULFATE 325 MG TAB PO SCH ×2 (08:06→17:19)
[2017-05-14] MEDS: METHIMAZOLE 5 MG TAB PO SCH (08:06)
[2017-05-14] MEDS: FUROSEMIDE 40 MG TAB PO SCH (08:06)
[2017-05-14] MEDS: POTASSIUM CHLORIDE 10 MEQ TABCR PO SCH (08:06)
[2017-05-14] MEDS: METOPROLOL TARTRATE 25 MG TAB PO SCH ×2 (08:06→20:55)
[2017-05-14] MEDS: DOCUSATE SODIUM 100 MG/10 ML UDC PO SCH ×2 (08:06→20:00)
[2017-05-14] MEDS: LISINOPRIL 2.5 MG TAB PO SCH (08:07)
[2017-05-14] MEDS: PANTOprazole SOD 40 MG TAB PO SCH ×2 (08:07→17:19)
[2017-05-14] MEDS: SERTRALINE HCL 50 MG TAB PO SCH (08:07)
[2017-05-14] MEDS ORDERED: MTR400 PO (09:23)
[2017-05-14] MEDS ORDERED: LSX40 PO (09:23)
[2017-05-14] MEDS ORDERED: LPR25 PO (09:23)
[2017-05-14] MEDS ORDERED: FRRS300 PO (09:23)
[2017-05-14] MEDS ORDERED: SRQ25 PO (09:23)
[2017-05-14] MEDS ORDERED: MRLP17 PO (09:23)
[2017-05-14] MEDS ORDERED: LSN25 PO (09:23)
[2017-05-14] MEDS ORDERED: TRAM-10 PO (09:23)
[2017-05-14] MEDS ORDERED: PRT40 PO (09:23)
[2017-05-14] MEDS ORDERED: PRD10 PO (09:23)
[2017-05-14] MEDS ORDERED: FLX10 PO (09:23)
--- NOTE | 2017-05-14 12:30 | Discharge Instructions ---
Discharge Instructions Date of Service May 14, 2017. Admission Reason for Admission: Acute hypoxic respiratory failure Discharge Discharge Diagnosis / Problem: Acute hypoxic respiratory failure, acute systolic HF, anemia, iron def Discharge Goals Goal(s): Improve function, Improve disease control Activity Recommendations Activity Level: OOB In Chair, Assistance Required Therapies: Physical Therapy, Occupational Therapy Lifting Limitations: none Exercise/Sports Limitations: as tolerated Shower/Bathe: no limitations . Additional Information Patient informed of condition: Yes Advance Directives: Yes DNR: Yes Level of Care: Acute Rehab Communicable Disease: No Prognosis: Stable Oxygen at (LPM): no Root Catheter: No Instructions / Follow-Up Instructions / Follow-Up Medications: - METOPROLOL: 25mg twice a day for heart failure and to control atrial fibrillation rates - LISINOPRIL: dose lowered to 2.5mg daily, needs it for systolic heart failure, but does not need any further BP control so keep at this low dose - XARELTO: 20mg daily, replaces Coumadin - FERROUS SULFATE: found to be iron deficient, should continue this indefinitely - LASIX: 40mg PO daily, has maintained euvolemia on this dose, systolic HF is new diagnosis so may need higher dose in future, see below - FLEXERIL, IBUPROFEN and ULTRAM: started for musculoskeletal pain, take as needed, try to avoid Ultram but he can tolerated narcotics if needed - PROTONIX: 40mg twice a day for two weeks then can go to once a day - PREDNISONE: complete several more days at 10mg then stop Acute hypoxic respiratory failure: resolved quickly, extubated and breathing stable every since he was diuresed Systolic heart failure: new diagnosis, found to have EF of 25-30%, he was in acute failure with pulmonary edema that caused respiratory failure and he needed intubated initially diuresed well with Lasix IV started on regimen of Metoprolol 12.5mg BID and Losartan 25mg and Lasix 80mg , was having hypotension and tachycardia on this regimen changed several days ago to Metoprolol 25mg BID, Lisinopril 2.5mg daily and Lasix 40mg, has maintained euvolemia, BP and HR stable for several days PATIENT NEEDS TO BE WEIGHED EVERY DAY TO MAKE SURE HE IS NOT RETAINING FLUID, WEIGHT IS CURRENTLY 208 POUNDS if weight goes up to 210lbs he should have Lasix increased to 40mg twice a day should follow up with [facility] cardiology in two weeks, call for appointment Anemia, iron deficiency, heme positive stools: Hb has been stable for a few days but he did require a blood transfusion on 05/06 and then on 05/11 for Hb of 7.2 Hb is 8.2 and has been slowly increasing continue Ferrous Sulfate BID, found to be iron deficient heme positive stools on 05/08, GI consulted, defer any scopes due to heart failure and patient and family would not want scopes hold on anticoagulation for at least another week to make sure Hb stable and no bleeding treat with Protonix as above Atrial fibrillation, permanent: rates well controlled on metoprolol 25mg BID was on Coumadin previously but this was held due to anemia would recommend using Xarelto since it will be easier to administer and renal function is adequate Musculoskeletal pain: unclear etiology, likely arthritis, had numerous x-rays that did not show any fractures has relief with Flexeril and NSAIDs so continue to use as needed can take Ultram if needed but only for breakthrough FOLLOW UP - physician at [facility] - [facility] cardiology in two weeks for systolic HF follow up, [phone] - Dr. Willingham one week after discharge from [facility] Current Hospital Diet Patient's current hospital diet: AHA Diet (Heart Healthy), Low Fat Diet Discharge Diet Recommended Diet: AHA Diet (Heart Healthy) Fluid Restriction: 1800 ml (7 cups) Procedures Procedures Performed: Echocardiogram - EF 25-30% Pending Studies Studies pending at discharge: no Physician Orders On Transfer POLST Discussion: without POLST completion Medical Emergencies . Who to Call and When: Medical Emergencies: If at any time you feel your situation is an emergency, please call 911 immediately. . Non-Emergent Contact Non-Emergency issues call your: Primary Care Provider, Room Clerk Call Non-Emergent contact if: you have any medication questions . . "Provider Documentation" section prepared by Woody Soares. . Core Measure Problem Core Measures: None [place] Drug Monitoring Program Search Results: no issues identified
[2017-05-14] MEDS ORDERED: XRL20 PO (12:31)
[2017-05-14 14:46] VITALS: BP 134/80; PULSE 87; TEMP 36.7; O2SAT 93
[2017-05-14 16:00] VITALS: O2SAT 92
[2017-05-14 20:55] VITALS: BP 97/58; PULSE 82
[2017-05-14] MEDS: QUETIAPINE FUMARATE 25 MG TAB PO SCH (20:55)
--- NOTE | 2017-05-14 22:28 | Progress Note ---
Subjective Date of Service: May 14, 2017. Subjective Pt evaluation today including: conversation w/ patient, conversation w/ family , physical exam, lab review, review of inpatient medication list Pain: still with pain in legs, hips PO Intake: adequate Voiding: no voiding problems patient doing well, only complaint is pain in legs/hips breathing well, eating well, mild edema in legs labs reviewed, Hb increased at 8.2, Cr stable Review of Systems Constitutional: + weakness, + fatigue Musculoskeletal: + joint pain (hips and thighs), + muscle pain Neurologic: + memory loss, + weakness All Other Systems: Reviewed and Negative Medications Current Inpatient Medications Medications (Trade) Dose Ordered Sig/Claudia Route Start Time Stop Time Status Last Admin Dose Admin Sodium Chloride ([place] Nasal [place]) 1 sprays PRN PRN NA 05/07/17 07:15 06/06/17 07:14 Sertraline HCl (Zoloft Tab) 50 mg DAILY PO 05/07/17 14:00 06/06/17 13:59 05/14/17 08:07 50 MG Quetiapine Fumarate (seroQUEL TAB) 50 mg HS PO 05/07/17 21:00 06/06/17 20:59 05/14/17 20:55 50 MG Docusate Sodium (coLACE SYRUP) 100 mg BID PO 05/08/17 09:00 06/07/17 08:59 05/14/17 08:06 100 MG Polyethylene (Miralax Powder Packet) 17 gm DAILY PO 05/08/17 09:00 06/07/17 08:59 05/11/17 09:00 17 GM Furosemide (Lasix Tab) 80 mg QAM PO 05/08/17 09:00 06/07/17 08:59 Future Hold 05/10/17 07:37 80 MG Potassium Chloride (Klor-Con M10) 10 meq DAILY PO 05/08/17 09:00 06/07/17 08:59 05/14/17 08:06 10 MEQ Acetaminophen (Tylenol Tab) 650 mg Q4H PRN PO 05/08/17 14:30 06/07/17 14:29 05/13/17 20:32 650 MG Methimazole (Methimazole Tab) 10 mg QAM PO 05/09/17 09:00 06/08/17 08:59 05/14/17 08:06 10 MG Hydromorphone HCl (Dilaudid Inj) 0.5 mg Q4H PRN IV 05/10/17 10:00 05/23/17 09:14 05/12/17 07:59 0.5 MG Albuterol/ Ipratropium (Duoneb) 3 ml Q6 PRN INH 05/10/17 18:00 06/06/17 15:59 Ketorolac Tromethamine (Toradol Inj) 15 mg Q6H PRN IV. 05/10/17 15:30 05/15/17 15:29 05/13/17 07:18 15 MG Cyclobenzaprine HCl (Flexeril Tab) 10 mg TID PRN PO 05/10/17 15:30 06/09/17 15:29 05/14/17 03:44 10 MG Metoprolol Tartrate (Lopressor Tab) 25 mg BID PO 05/11/17 09:15 06/06/17 09:14 05/14/17 08:06 25 MG Prednisone (PredniSONE TAB) 20 mg DAILY PO 05/12/17 08:00 06/11/17 07:59 05/14/17 08:06 20 MG Pantoprazole Sodium (Protonix Tab) 40 mg BID17 PO 05/11/17 17:00 06/07/17 08:59 05/14/17 17:19 40 MG Furosemide (Lasix Tab) 40 mg QAM PO 05/12/17 08:00 06/11/17 07:59 05/14/17 08:06 40 MG Ferrous Sulfate (Feosol Tab) 325 mg BIDM PO 05/12/17 17:00 06/11/17 16:59 05/14/17 17:19 325 MG Lisinopril (Zestril Tab) 2.5 mg QAM PO 05/13/17 08:00 06/12/17 07:59 05/14/17 08:07 2.5 MG Objective Vital Signs Date Time Temp Pulse Resp B/P (MAP) Pulse Ox O2 Delivery O2 Flow Rate FiO2 05/14/17 20:55 82 97/58 (71) 05/14/17 16:00 92 Room Air 05/14/17 14:46 36.7 87 18 134/80 (98) 93 Room Air 05/14/17 08:57 Room Air 05/14/17 07:25 36.6 83 20 114/66 (82) 95 Room Air 05/14/17 00:00 Room Air 05/13/17 23:46 36.7 83 20 110/71 (84) 92 Room Air Physical Exam General Appearance: WD/WN, no apparent distress Eyes: normal inspection, EOMI, sclerae normal ENT: normal ENT inspection, hearing grossly normal, pharynx normal Neck: supple, no adenopathy, no JVD, trachea midline Respiratory/Chest: chest non-tender, lungs clear, normal breath sounds, no respiratory distress, no accessory muscle use Cardiovascular: no edema, no gallop, no JVD, no murmur, + irregularly irregular Abdomen: normal bowel sounds, non tender, soft, no organomegaly Extremities: normal range of motion, normal inspection, no pedal edema, no calf tenderness, normal capillary refill, pelvis stable, + pertinent finding ( thighs, hamstrings and pelvis tender to palpation, full ROM) 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: health 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 II-XII nml as tested, no motor/sensory deficits, alert, normal mood/affect, oriented x 3 Skin: normal color, warm/dry, no rash Laboratory Results Last 24 Hours Test 05/14/17 06:57 05/14/17 07:36 05/14/17 11:24 05/14/17 19:59 Hemoglobin 8.2 g/dL Hematocrit 27.7 % Sodium Level 142 mmol/L Potassium Level 4.5 mmol/L Chloride Level 106 mmol/L Carbon Dioxide Level 29 mmol/L Anion Gap 8.0 mmol/L Blood Urea Nitrogen 39 mg/dl Creatinine 1.39 mg/dl Est Creatinine Clear Calc Drug Dose 47.2 ml/min Estimated GFR () 53.6 Estimated GFR (Non- 46.2 BUN/Creatinine Ratio 28.1 Random Glucose 104 mg/dl Calcium Level 8.2 mg/dl Bedside Glucose 127 mg/dl 131 mg/dl 122 mg/dl Assessment and Plan 86yo male - 1. acute hypoxic/hypercarbic resp failure - 2nd to CHF +/- COPD - acute component resolved, breathing room air. He was vented early on during his stay with successful extubation. continue to maintain euvolemia and treat COPD 2. acute/chronic systolic CHF - echo shows that EF is worse relative to previous echo. down to 25-30% patient continues to examine euvolemic today increased metoprolol to 25mg BID, HR controlled, BP stable start lisinopril 2.5mg daily continue Lasix at 40mg PO weight is 208 lbs, follow daily now and on discharge 3. a. fib with RVR - HR controlled on metoprolol 25mg BID would hold on anticoagulation one more week to make sure Hb stable can do Xarelto 20mg daily, copay $20/month 4. microcytic anemia 2nd to iron def anemia - Stool is heme + on 05/08 continue to hold anticoagulation ferritin low on 05/10 Hb down to 7.2 on 05/11, transfused one unit on 05/11, up to 8.2 today increase Protonix to BID consult GI for recommendations, no plans for scopes, treat conservatively 5. abdominal pain, hip pain, flank pain amylase/lipase acceptable. LFTs only mildly elevated. US shows cholelithiasis, no signs of cholecystitis MRCP rules out choledocholithiasis HIDA scan with no signs of cholecystitis likely abdominal muscular pain from excessive coughing prior to admission pain improved with Flexeril and Toradol of note, hip and pelvis x-ray on 05/10 showed no fractures PT/OT, ambulate BID 6. hyperthyroidism - TSH compensated. On methimazole. 7. CKD - stage 3? unsure of baseline - last creatinine was 2 years ago. Cr is stable today at 1.39 8. 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 9. 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 PT/OT, repeat labs tomorrow plan for rehab on discharge, ultimate goal will be to return to home independently plan for [facility] denied rehab, requested peer to peer but may not happen over the weekend patient certainly needs acute rehab because he needs physician supervision, several new medical issues that would require close monitoring Continued [facility] stay due to: multiple IV medications needed Discharge planning: uncertain (will need rehab )
[2017-05-15 00:15] VITALS: BP 99/53; PULSE 86; TEMP 36.7; O2SAT 96
[2017-05-15] MEDS: ACETAMINOPHEN 325 MG TAB PO PRN ×2 (01:05→08:53)
[2017-05-15 06:17] LABS: HEMATOCRIT 28.1 % (42-52)
[2017-05-15 07:00] LABS: CALCIUM 7.6 mg/dl (8.5-10.1); CREATININE 1.23 mg/dl (0.60-1.40); POTASSIUM 3.8 mmol/L (3.5-5.1)
[2017-05-15 07:18] VITALS: BP 105/63; PULSE 91; TEMP 36.6; O2SAT 94
[2017-05-15] MEDS: POLYETHYLENE (MIRALAX) 17 GM PACK PO SCH (07:46)
[2017-05-15] MEDS: DOCUSATE SODIUM 100 MG/10 ML UDC PO SCH ×2 (07:46→19:58)
[2017-05-15] MEDS: METOPROLOL TARTRATE 25 MG TAB PO SCH ×2 (07:48→19:57)
[2017-05-15] MEDS: FERROUS SULFATE 325 MG TAB PO SCH ×2 (07:48→16:17)
[2017-05-15] MEDS: LISINOPRIL 2.5 MG TAB PO SCH (07:49)
[2017-05-15] MEDS: SERTRALINE HCL 50 MG TAB PO SCH (07:49)
[2017-05-15] MEDS: PANTOprazole SOD 40 MG TAB PO SCH ×2 (07:49→16:17)
[2017-05-15] MEDS: METHIMAZOLE 5 MG TAB PO SCH (07:49)
[2017-05-15] MEDS: FUROSEMIDE 40 MG TAB PO SCH (07:50)
[2017-05-15] MEDS: POTASSIUM CHLORIDE 10 MEQ TABCR PO SCH (07:51)
--- NOTE | 2017-05-15 14:20 | Progress Note ---
Subjective Date of Service: May 15, 2017. Subjective Pt evaluation today including: conversation w/ patient, physical exam, lab review, review of inpatient medication list Pain: no pain PO Intake: adequate Voiding: no voiding problems no new issues discussed that he is hanging out until decision on rehab, peer to peer Hb stable at 8.2, Cr stable Review of Systems All Other Systems: Reviewed and Negative Medications Current Inpatient Medications Medications (Trade) Dose Ordered Sig/Claudia Route Start Time Stop Time Status Last Admin Dose Admin Sodium Chloride ([place] Nasal [place]) 1 sprays PRN PRN NA 05/07/17 07:15 06/06/17 07:14 Sertraline HCl (Zoloft Tab) 50 mg DAILY PO 05/07/17 14:00 06/06/17 13:59 05/15/17 07:49 50 MG Quetiapine Fumarate (seroQUEL TAB) 50 mg HS PO 05/07/17 21:00 06/06/17 20:59 05/14/17 20:55 50 MG Docusate Sodium (coLACE SYRUP) 100 mg BID PO 05/08/17 09:00 06/07/17 08:59 05/14/17 08:06 100 MG Polyethylene (Miralax Powder Packet) 17 gm DAILY PO 05/08/17 09:00 06/07/17 08:59 05/11/17 09:00 17 GM Furosemide (Lasix Tab) 80 mg QAM PO 05/08/17 09:00 06/07/17 08:59 Future Hold 05/10/17 07:37 80 MG Potassium Chloride (Klor-Con M10) 10 meq DAILY PO 05/08/17 09:00 06/07/17 08:59 05/15/17 07:51 10 MEQ Acetaminophen (Tylenol Tab) 650 mg Q4H PRN PO 05/08/17 14:30 06/07/17 14:29 05/15/17 08:53 650 MG Methimazole (Methimazole Tab) 10 mg QAM PO 05/09/17 09:00 06/08/17 08:59 05/15/17 07:49 10 MG Hydromorphone HCl (Dilaudid Inj) 0.5 mg Q4H PRN IV 05/10/17 10:00 05/23/17 09:14 05/12/17 07:59 0.5 MG Albuterol/ Ipratropium (Duoneb) 3 ml Q6 PRN INH 05/10/17 18:00 06/06/17 15:59 Ketorolac Tromethamine (Toradol Inj) 15 mg Q6H PRN IV. 05/10/17 15:30 05/15/17 15:29 05/13/17 07:18 15 MG Cyclobenzaprine HCl (Flexeril Tab) 10 mg TID PRN PO 05/10/17 15:30 06/09/17 15:29 05/14/17 03:44 10 MG Metoprolol Tartrate (Lopressor Tab) 25 mg BID PO 05/11/17 09:15 06/06/17 09:14 05/15/17 07:48 25 MG Prednisone (PredniSONE TAB) 20 mg DAILY PO 05/12/17 08:00 06/11/17 07:59 05/15/17 07:49 20 MG Pantoprazole Sodium (Protonix Tab) 40 mg BID17 PO 05/11/17 17:00 06/07/17 08:59 05/15/17 07:49 40 MG Furosemide (Lasix Tab) 40 mg QAM PO 05/12/17 08:00 06/11/17 07:59 05/15/17 07:50 40 MG Ferrous Sulfate (Feosol Tab) 325 mg BIDM PO 05/12/17 17:00 06/11/17 16:59 05/15/17 07:48 325 MG Lisinopril (Zestril Tab) 2.5 mg QAM PO 05/13/17 08:00 06/12/17 07:59 05/15/17 07:49 2.5 MG Objective Vital Signs Date Time Temp Pulse Resp B/P (MAP) Pulse Ox O2 Delivery O2 Flow Rate FiO2 05/15/17 07:50 Room Air 05/15/17 07:18 36.6 91 20 105/63 (77) 94 Room Air 05/15/17 00:15 36.7 86 20 99/53 (68) 96 Room Air 05/15/17 00:00 Room Air 05/14/17 20:55 82 97/58 (71) 05/14/17 20:00 Room Air 05/14/17 16:00 92 Room Air 05/14/17 14:46 36.7 87 18 134/80 (98) 93 Room Air Physical Exam General Appearance: WD/WN, no apparent distress ENT: normal ENT inspection, hearing grossly normal, pharynx normal Neck: supple, no adenopathy, no JVD, trachea midline Respiratory/Chest: chest non-tender, lungs clear, normal breath sounds, no respiratory distress, no accessory muscle use Cardiovascular: no edema, no gallop, no JVD, no murmur, + irregularly irregular Abdomen: normal bowel sounds, non tender, soft, no organomegaly Extremities: normal range of motion, non-tender, normal inspection, no pedal edema, no calf tenderness, pelvis stable 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, no motor/sensory deficits, alert, normal mood/affect, oriented x 3 Skin: normal color, warm/dry, no rash Laboratory Results Last 24 Hours Test 05/14/17 19:59 05/15/17 05:46 05/15/17 07:37 05/15/17 11:23 Bedside Glucose 122 mg/dl 94 mg/dl 152 mg/dl Hemoglobin 8.2 g/dL Hematocrit 28.1 % Sodium Level 142 mmol/L Potassium Level 3.8 mmol/L Chloride Level 108 mmol/L Carbon Dioxide Level 29 mmol/L Anion Gap 5.0 mmol/L Blood Urea Nitrogen 32 mg/dl Creatinine 1.23 mg/dl Est Creatinine Clear Calc Drug Dose 53.3 ml/min Estimated GFR () 62.1 Estimated GFR (Non- 53.6 BUN/Creatinine Ratio 26.0 Random Glucose 80 mg/dl Calcium Level 7.6 mg/dl Assessment and Plan 86yo male - 1. acute hypoxic/hypercarbic resp failure - 2nd to CHF +/- COPD - acute component resolved, breathing room air. He was vented early on during his stay with successful extubation. continue to maintain euvolemia and treat COPD 2. acute/chronic systolic CHF - echo shows that EF is worse relative to previous echo. down to 25-30% patient continues to examine euvolemic today increased metoprolol to 25mg BID, HR controlled, BP stable start lisinopril 2.5mg daily continue Lasix at 40mg PO weight is 208 lbs, follow daily now and on discharge should have cardiology follow up and repeat echo in a few months 3. a. fib with RVR - HR controlled on metoprolol 25mg BID would hold on anticoagulation one more week to make sure Hb stable can do Xarelto 20mg daily, copay $20/month 4. microcytic anemia 2nd to iron def anemia - Stool is heme + on 05/08 continue to hold anticoagulation ferritin low on 05/10 Hb down to 7.2 on 05/11, transfused one unit on 05/11, up to 8.2 today and yesterday increase Protonix to BID consult GI for recommendations, no plans for scopes, treat conservatively 5. abdominal pain, hip pain, flank pain amylase/lipase acceptable. LFTs only mildly elevated. US shows cholelithiasis, no signs of cholecystitis MRCP rules out choledocholithiasis HIDA scan with no signs of cholecystitis likely abdominal muscular pain from excessive coughing prior to admission pain improved with Flexeril and Toradol of note, hip and pelvis x-ray on 05/10 showed no fractures PT/OT, ambulate BID plan for rehab 6. hyperthyroidism - TSH compensated. On methimazole. 7. CKD - stage 3? unsure of baseline - last creatinine was 2 years ago. Cr is stable today at 1.39 8. 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 9. 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 PT/OT, repeat labs tomorrow plan for rehab on discharge, ultimate goal will be to return to home independently plan for [facility] denied rehab, requested peer to peer but may not happen over the weekend patient certainly needs acute rehab because he needs physician supervision, several new medical issues that would require close monitoring Continued [facility] stay due to: multiple IV medications needed Discharge planning: uncertain (will need rehab )
[2017-05-15] MEDS: QUETIAPINE FUMARATE 25 MG TAB PO SCH (19:58)
[2017-05-15 22:52] VITALS: BP 109/72; PULSE 84; TEMP 36.5; O2SAT 93
[2017-05-16] MEDS: ACETAMINOPHEN 325 MG TAB PO PRN ×2 (07:15→23:27)
[2017-05-16] MEDS: FUROSEMIDE 40 MG TAB PO SCH (07:15)
[2017-05-16] MEDS: METHIMAZOLE 5 MG TAB PO SCH (07:15)
[2017-05-16] MEDS: LISINOPRIL 2.5 MG TAB PO SCH (07:16)
[2017-05-16] MEDS: PANTOprazole SOD 40 MG TAB PO SCH ×2 (07:16→17:23)
[2017-05-16] MEDS: METOPROLOL TARTRATE 25 MG TAB PO SCH ×2 (07:16→20:06)
[2017-05-16] MEDS: SERTRALINE HCL 50 MG TAB PO SCH (07:16)
[2017-05-16] MEDS: CYCLOBENZAPRINE HCL 10 MG TAB PO PRN (07:16)
[2017-05-16] MEDS: FERROUS SULFATE 325 MG TAB PO SCH ×2 (07:17→17:23)
[2017-05-16 07:29] VITALS: BP 129/81; PULSE 80; TEMP 36.5; O2SAT 96
[2017-05-16] MEDS: POTASSIUM CHLORIDE 10 MEQ TABCR PO SCH (07:42)
[2017-05-16] MEDS: DOCUSATE SODIUM 100 MG/10 ML UDC PO SCH ×3 (07:49→20:08)
[2017-05-16] MEDS: POLYETHYLENE (MIRALAX) 17 GM PACK PO SCH (07:49)
[2017-05-16 15:31] VITALS: BP 131/80; PULSE 83; TEMP 36.5; O2SAT 98
[2017-05-16 17:29] LABS: CREATININE 1.42 mg/dl (0.60-1.40)
[2017-05-16 17:43] LABS: HEMATOCRIT 30.4 % (42-52); MEAN CORPUSCULAR HGB CONC 28.9 g/dl (32-36); PLATELET COUNT 171 K/uL (130-400)
[2017-05-16] MEDS: QUETIAPINE FUMARATE 25 MG TAB PO SCH (20:05)
--- NOTE | 2017-05-16 22:45 | Progress Note ---
Subjective Date of Service: May 16, 2017. Subjective Pt evaluation today including: conversation w/ patient, conversation w/ family , physical exam, review of inpatient medication list Pain: mild pain in legs PO Intake: adequate Voiding: no voiding problems mild confusion this AM about recent events, but oriented discussed plan to have peer to peer tomorrow and attempt to get to [facility] updated daughter over the phone about plan for Xarelto she agreed, stating that Coumadin dose always being changed, would be much easier to just take Xarelto explained that there is no reversal agent, she was okay with that Review of Systems Musculoskeletal: + joint pain (mild hip and leg pain) All Other Systems: Reviewed and Negative Medications Current Inpatient Medications Medications (Trade) Dose Ordered Sig/Claudia Route Start Time Stop Time Status Last Admin Dose Admin Sodium Chloride (Neshanic Nasal [place]) 1 sprays PRN PRN NA 05/07/17 07:15 06/06/17 07:14 Sertraline HCl (Zoloft Tab) 50 mg DAILY PO 05/07/17 14:00 06/06/17 13:59 05/16/17 07:16 50 MG Quetiapine Fumarate (seroQUEL TAB) 50 mg HS PO 05/07/17 21:00 06/06/17 20:59 05/16/17 20:05 50 MG Docusate Sodium (coLACE SYRUP) 100 mg BID PO 05/08/17 09:00 06/07/17 08:59 05/15/17 19:58 100 MG Polyethylene (Miralax Powder Packet) 17 gm DAILY PO 05/08/17 09:00 06/07/17 08:59 05/11/17 09:00 17 GM Potassium Chloride (Klor-Con M10) 10 meq DAILY PO 05/08/17 09:00 06/07/17 08:59 05/16/17 07:42 10 MEQ Acetaminophen (Tylenol Tab) 650 mg Q4H PRN PO 05/08/17 14:30 06/07/17 14:29 05/16/17 07:15 650 MG Methimazole (Methimazole Tab) 10 mg QAM PO 05/09/17 09:00 06/08/17 08:59 05/16/17 07:15 10 MG Hydromorphone HCl (Dilaudid Inj) 0.5 mg Q4H PRN IV 05/10/17 10:00 05/23/17 09:14 05/12/17 07:59 0.5 MG Albuterol/ Ipratropium (Duoneb) 3 ml Q6 PRN INH 05/10/17 18:00 06/06/17 15:59 Cyclobenzaprine HCl (Flexeril Tab) 10 mg TID PRN PO 05/10/17 15:30 06/09/17 15:29 05/16/17 07:16 10 MG Metoprolol Tartrate (Lopressor Tab) 25 mg BID PO 05/11/17 09:15 06/06/17 09:14 05/16/17 20:06 25 MG Pantoprazole Sodium (Protonix Tab) 40 mg BID17 PO 05/11/17 17:00 06/07/17 08:59 05/16/17 17:23 40 MG Furosemide (Lasix Tab) 40 mg QAM PO 05/12/17 08:00 06/11/17 07:59 05/16/17 07:15 40 MG Ferrous Sulfate (Feosol Tab) 325 mg BIDM PO 05/12/17 17:00 06/11/17 16:59 05/16/17 17:23 325 MG Lisinopril (Zestril Tab) 2.5 mg QAM PO 05/13/17 08:00 06/12/17 07:59 05/16/17 07:16 2.5 MG Prednisone (PredniSONE TAB) 10 mg DAILY PO 05/17/17 08:00 06/11/17 07:59 Rivaroxaban (Xarelto Tab) 20 mg DAILY PO 05/17/17 08:00 06/16/17 07:59 Objective Vital Signs Date Time Temp Pulse Resp B/P (MAP) Pulse Ox O2 Delivery O2 Flow Rate FiO2 05/16/17 20:00 Room Air 05/16/17 16:00 Room Air 05/16/17 15:31 36.5 83 18 131/80 (97) 98 Room Air 05/16/17 08:00 Room Air 05/16/17 07:29 36.5 80 20 129/81 (97) 96 Room Air 05/15/17 23:34 Room Air 05/15/17 22:52 36.5 84 17 109/72 (84) 93 Room Air Physical Exam General Appearance: WD/WN, no apparent distress Eyes: normal inspection, EOMI, sclerae normal ENT: normal ENT inspection, hearing grossly normal, pharynx normal Neck: supple, no adenopathy, no JVD, trachea midline Respiratory/Chest: chest non-tender, normal breath sounds, no respiratory distress, no accessory muscle use, + wheezing (faint, scattered, very end exhalation) Cardiovascular: no edema, no gallop, no JVD, no murmur, + irregularly irregular Abdomen: normal bowel sounds, non tender, soft, no organomegaly Extremities: normal range of motion, non-tender, normal inspection, no pedal edema, no calf tenderness, pelvis stable 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, no motor/sensory deficits, alert, normal mood/affect, oriented x 3 Skin: normal color, warm/dry, no rash Laboratory Results Last 24 Hours Test 05/16/17 07:52 05/16/17 16:36 Hemoglobin 8.9 g/dL 8.8 g/dL Hematocrit 31.0 % 30.4 % White Blood Count 12.60 K/uL Red Blood Count 4.00 M/uL Mean Corpuscular Volume 76.0 fL Mean Corpuscular Hemoglobin 22.0 pg Mean Corpuscular Hemoglobin Concent 28.9 g/dl RDW Standard Deviation 64.0 fL RDW Coefficient of Variation 25.1 % Platelet Count 171 K/uL Creatinine 1.42 mg/dl Est Creatinine Clear Calc Drug Dose 42.5 ml/min Estimated GFR () 52.2 Estimated GFR (Non- 45.0 Total Bilirubin 1.0 mg/dl Direct Bilirubin 0.4 mg/dl Aspartate Amino Transf (AST/SGOT) 28 U/L Alanine Aminotransferase (ALT/SGPT) 34 U/L Alkaline Phosphatase 99 U/L Total Protein 6.2 gm/dl Albumin 3.4 gm/dl Assessment and Plan 86yo male - 1. acute hypoxic/hypercarbic resp failure - 2nd to CHF +/- COPD - acute component resolved, breathing room air. He was vented early on during his stay with successful extubation. continue to maintain euvolemia and treat COPD 2. acute/chronic systolic CHF - echo shows that EF is worse relative to previous echo. down to 25-30% patient continues to examine euvolemic today, minimal edema in legs but stable increased metoprolol to 25mg BID, HR controlled, BP stable start lisinopril 2.5mg daily continue Lasix at 40mg PO, Cr holding steady and weight stable, measured as 90 kg today, down from 94 kg continue to weight daily at rehab should have cardiology follow up and repeat echo in a few months 3. a. fib with RVR - HR controlled on metoprolol 25mg BID Hb stable, up to 8.9 today, will start Xarelto tomorrow can do Xarelto 20mg daily, copay $20/month 4. microcytic anemia 2nd to iron def anemia - Stool is heme + on 05/08 but never with any true bleeding held anticoagulation for entire admission, will start Xarelto tomorrow since Hb up to 8.9 ferritin low on 05/10 Hb down to 7.2 on 05/11, transfused one unit on 05/11, up to 8.9 today consult GI for recommendations, no plans for scopes, treat conservatively continue Protonix BID 5. abdominal pain, hip pain, flank pain amylase/lipase acceptable. LFTs only mildly elevated. US shows cholelithiasis, no signs of cholecystitis MRCP rules out choledocholithiasis HIDA scan with no signs of cholecystitis likely abdominal muscular pain from excessive coughing prior to admission pain improved with Flexeril and Toradol of note, hip and pelvis x-ray on 05/10 showed no fractures PT/OT, ambulate BID plan for rehab 6. hyperthyroidism - TSH compensated. On methimazole. 7. CKD - stage 3? unsure of baseline - last creatinine was 2 years ago. Cr is stable today at 1.42 8. 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 9. 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 PT/OT plan for rehab on discharge, ultimate goal will be to return to home independently plan for [facility] denied rehab, requested peer to peer but will not happen until tomorrow patient certainly needs acute rehab because he needs physician supervision, several new medical issues that would require close monitoring Continued [facility] stay due to: multiple IV medications needed Discharge planning: uncertain (will need rehab )
[2017-05-16 22:49] VITALS: BP 107/73; PULSE 88; TEMP 36.6; O2SAT 92
[2017-05-17 07:17] VITALS: BP 117/78; PULSE 79; TEMP 36.5; O2SAT 91
[2017-05-17 08:00] VITALS: O2SAT 91
[2017-05-17 08:00] LABS: ANISOCYTOSIS PRESENT; BASO % 0.1 %; BASO ABS # 0.01 K/uL (0-0.2); COMPLETE YES; HEMATOCRIT 30.8 % (42-52); HYPOCHROMIA PRESENT; IG% 0.9 %; LYMPH % 15.1 %; LYMPH ABS # 1.75 K/uL (1.2-3.4); MEAN CORPUSCULAR HGB CONC 28.9 g/dl (32-36); MICROCYTOSIS PRESENT; MONO % 11.2 %; NEUT % 70.7 %; OVALOCYTES 1+; PLATELET COUNT 142 K/uL (130-400); PLT ESTIMATE NORMAL; RED BLOOD COUNT 4.05 M/uL (4.7-6.1)
[2017-05-17] MEDS: METOPROLOL TARTRATE 25 MG TAB PO SCH ×2 (08:00→20:32)
[2017-05-17] MEDS ORDERED: RIVAROXABAN 10 MG TAB PO SCH (08:00)
[2017-05-17] MEDS: PANTOprazole SOD 40 MG TAB PO SCH ×2 (08:00→17:48)
[2017-05-17] MEDS: SERTRALINE HCL 50 MG TAB PO SCH (08:01)
[2017-05-17] MEDS: FUROSEMIDE 40 MG TAB PO SCH (08:01)
[2017-05-17] MEDS: FERROUS SULFATE 325 MG TAB PO SCH ×2 (08:01→17:48)
[2017-05-17] MEDS: POTASSIUM CHLORIDE 10 MEQ TABCR PO SCH (08:02)
[2017-05-17] MEDS: METHIMAZOLE 5 MG TAB PO SCH (08:03)
[2017-05-17] MEDS: LISINOPRIL 2.5 MG TAB PO SCH (08:04)
[2017-05-17] MEDS: POLYETHYLENE (MIRALAX) 17 GM PACK PO SCH (08:06)
[2017-05-17 08:07] LABS: BUN/CREATININE RATIO 21.4 (10-20); CALCIUM 8.2 mg/dl (8.5-10.1); CREATININE 1.31 mg/dl (0.60-1.40); MAGNESIUM 2.4 mg/dl (1.8-2.4); POTASSIUM 4.2 mmol/L (3.5-5.1)
--- NOTE | 2017-05-17 12:26 | Hospitalist Progress Note ---
Hospitalist Progress Note Date of Service May 17, 2017. Subjective Pt evaluation today including: conversation w/ patient, physical exam, chart review, lab review, review of inpatient medication list Pain: None PO Intake: Tolerating PO diet Voiding: no voiding problems Patient reports feeling well. He denies any shortness of breath at rest but does have some dyspnea on exertion. He also developed a dry non-productive cough this morning. He complains of wheezing but states that this is improve since admission. He is otherwise feeling well, but he notes a dark rash over his groin and right inner thigh. The patient denies fevers, chills, sweats, chest pain, palpitations, claudication, shortness of breath at rest, nausea, vomiting, abdominal pain, dysuria, hematuria, urinary retention, paralysis, weakness, numbness and tingling. Additional Comments: See HPI for pertinent positives and negatives. All other systems reviewed and negative. Objective Vital Signs Date Time Temp Pulse Resp B/P (MAP) Pulse Ox O2 Delivery O2 Flow Rate FiO2 05/17/17 08:00 91 Room Air 05/17/17 07:17 36.5 79 20 117/78 (91) 91 Room Air 05/16/17 22:49 36.6 88 19 107/73 (84) 92 Room Air 05/16/17 20:00 Room Air 05/16/17 16:00 Room Air 05/16/17 15:31 36.5 83 18 131/80 (97) 98 Room Air Physical Exam Notes: General appearance: Well-developed, well-nourished, no apparent distress Head: Normocephalic, atraumatic Eyes: Normal inspection, PERRL, EOMI ENT: Normal ENT inspection, hearing grossly normal, pharynx normal Neck: Supple, no JVD, trachea midline Respiratory/Chest: +Decreased breath sounds. Lungs clear to auscultation, no respiratory distress Cardiovascular: +Irregularly irregular, rate controlled. Systolic murmur. No gallop Abdomen/GI: +Lower quadrants TTP. Normal bowel sounds, soft Extremities/Musculoskeletal: +Trace pitting edema. Normal inspection, no calf tenderness Neurological/Psych: Alert, normal mood/affect, oriented x 3 Skin: +Purpura over lower abdominal and right lower flank, groin and testicles , distal right thigh and behind right knee. Petechiae over right inner thigh. All these areas TTP. Normal color, warm/dry Laboratory Results Last 24 Hours Test 05/16/17 16:36 05/17/17 07:20 White Blood Count 12.60 K/uL 11.60 K/uL Red Blood Count 4.00 M/uL 4.05 M/uL Hemoglobin 8.8 g/dL 8.9 g/dL Hematocrit 30.4 % 30.8 % Mean Corpuscular Volume 76.0 fL 76.0 fL Mean Corpuscular Hemoglobin 22.0 pg 22.0 pg Mean Corpuscular Hemoglobin Concent 28.9 g/dl 28.9 g/dl RDW Standard Deviation 64.0 fL 65.3 fL RDW Coefficient of Variation 25.1 % 25.6 % Platelet Count 171 K/uL 142 K/uL Creatinine 1.42 mg/dl 1.31 mg/dl Est Creatinine Clear Calc Drug Dose 42.5 ml/min 46.1 ml/min Estimated GFR () 52.2 57.5 Estimated GFR (Non- 45.0 49.6 Total Bilirubin 1.0 mg/dl Direct Bilirubin 0.4 mg/dl Aspartate Amino Transf (AST/SGOT) 28 U/L Alanine Aminotransferase (ALT/SGPT) 34 U/L Alkaline Phosphatase 99 U/L Total Protein 6.2 gm/dl Albumin 3.4 gm/dl Neutrophils (%) (Auto) 70.7 % Lymphocytes (%) (Auto) 15.1 % Monocytes (%) (Auto) 11.2 % Eosinophils (%) (Auto) 2.0 % Basophils (%) (Auto) 0.1 % Neutrophils # (Auto) 8.21 K/uL Lymphocytes # (Auto) 1.75 K/uL Monocytes # (Auto) 1.30 K/uL Eosinophils # (Auto) 0.23 K/uL Basophils # (Auto) 0.01 K/uL Immature Granulocyte % (Auto) 0.9 % Immature Granulocyte # (Auto) 0.10 K/uL Platelet Estimate NORMAL Hypochromasia PRESENT Anisocytosis PRESENT Microcytosis PRESENT Ovalocytes 1+ Sodium Level 143 mmol/L Potassium Level 4.2 mmol/L Chloride Level 109 mmol/L Carbon Dioxide Level 26 mmol/L Anion Gap 9.0 mmol/L Blood Urea Nitrogen 28 mg/dl BUN/Creatinine Ratio 21.4 Random Glucose 92 mg/dl Calcium Level 8.2 mg/dl Magnesium Level 2.4 mg/dl Assessment and Plan 86 y/o male with a history of a-fib, systolic CHF, CKD stage III and hyperthyroidism who presents with acute hypoxic and hypercarbic respiratory failure requiring mechanical ventilation. Acute hypoxic and hypercarbic respiratory failure secondary to acute CHF-- resolved, on room air -Pt had arrived intubated from outside hospital. Extubated 05/07 -Saturating well on room air Acute on chronic systolic CHF--resolving -No edema, appears euvolemic -Echo shows worsening of LVEF, down to 25-30% now -Continue metoprolol tartrate 25 mg PO BID, lisinopril 2.5 mg PO qd, and Lasix 40 mg PO qd -Continue daily weights, monitor I's & O's -F/u with cardiology outpt and repeat echo A-fib with RVR--resolved, rate controlled -Metoprolol as above -Start Xarelto 15 mg PO qd (renal dosing) SHAY on CKD stage III--resolved -Unclear baseline, but creatinine has been trending down -Creatinine down to 1.31 on 05/17 Microcytic anemia 2nd to iron def anemia--stable -Stool is heme + on 05/08 but never with any true bleeding -Hgb has remained stable, ok to start Xarelto -Ferritin low on 05/10 -Hb down to 7.2 on 05/11, transfused one unit on 05/11, now stable -Consult GI for recommendations, no plans for scopes, treat conservatively -Continue Protonix BID Abdominal pain, hip pain, flank pain--pt with ecchymoses in these areas, continue to monitor -Amylase/lipase acceptable -LFTs only mildly elevated -US shows cholelithiasis, no signs of cholecystitis -MRCP rules out choledocholithiasis -HIDA scan with no signs of cholecystitis -MSK component from excessive coughing prior to admission -Pain improved with Flexeril and Toradol -Hip and pelvis x-ray on 05/10 showed no fractures Hyperthyroidism - TSH compensated -Continue methimazole 10 mg PO qd 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 Will try to auth SNF instead
[2017-05-17 15:42] VITALS: BP 125/79; PULSE 85; TEMP 36.6; O2SAT 96
[2017-05-17] MEDS: DOCUSATE SODIUM 100 MG/10 ML UDC PO SCH ×2 (20:00→20:32)
[2017-05-17 20:29] VITALS: BP 132/87; PULSE 80
[2017-05-17] MEDS: QUETIAPINE FUMARATE 25 MG TAB PO SCH (20:32)
[2017-05-17] MEDS: CYCLOBENZAPRINE HCL 10 MG TAB PO PRN (20:34)
[2017-05-18 00:11] VITALS: BP 120/78; PULSE 79; TEMP 36.4; O2SAT 94
[2017-05-18 07:26] VITALS: BP 127/85; PULSE 88; TEMP 36.6; O2SAT 96
[2017-05-18] MEDS: POLYETHYLENE (MIRALAX) 17 GM PACK PO SCH (07:47)
[2017-05-18] MEDS: DOCUSATE SODIUM 100 MG/10 ML UDC PO SCH (07:47)
[2017-05-18] MEDS: FERROUS SULFATE 325 MG TAB PO SCH (07:49)
[2017-05-18] MEDS: POTASSIUM CHLORIDE 10 MEQ TABCR PO SCH (07:49)
[2017-05-18] MEDS: FUROSEMIDE 40 MG TAB PO SCH (07:49)
[2017-05-18] MEDS: METHIMAZOLE 5 MG TAB PO SCH (07:49)
[2017-05-18] MEDS: METOPROLOL TARTRATE 25 MG TAB PO SCH (07:49)
[2017-05-18] MEDS: LISINOPRIL 2.5 MG TAB PO SCH (07:50)
[2017-05-18] MEDS: PANTOprazole SOD 40 MG TAB PO SCH (07:50)
[2017-05-18] MEDS: SERTRALINE HCL 50 MG TAB PO SCH (07:50)
[2017-05-18] MEDS ORDERED: RIVAROXABAN TAB 15 MG TAB PO SCH ×2 (08:00)
[2017-05-18 08:35] LABS: BUN/CREATININE RATIO 24.7 (10-20); CALCIUM 8.2 mg/dl (8.5-10.1); CREATININE 1.17 mg/dl (0.60-1.40)
[2017-05-18 08:47] LABS: HEMATOCRIT 31.4 % (42-52); MEAN CORPUSCULAR HEMOGLOBIN 22.1 pg (25-34); MEAN CORPUSCULAR HGB CONC 28.7 g/dl (32-36); PLATELET COUNT 137 K/uL (130-400); PLT ESTIMATE NORMAL; RED BLOOD COUNT 4.08 M/uL (4.7-6.1); WHITE BLOOD COUNT 12.59 K/uL (4.8-10.8)
--- NOTE | 2017-05-18 09:14 | Cardiology Follow-Up ---
Subjective Date of Service: May 18, 2017. Pt evaluation today including: conversation w/ patient, physical exam, lab review, review of studies, review of inpatient medication list History of Present Illness This is an 82-year-old gentleman who has a history of non-Hodgkin's lymphoma in remission, he was evaluated in 2012 for flail posterior mitral valve leaflet along with bacteremia. According the family that resolved without incident. I do have an echocardiogram from 2014 where he did not have severe mitral regurgitation. He was recently hospitalized in [place], and transferred here. I don't have records from [place] to review at this time. According to the family he was intubated in order to transport him. He is in atrial fibrillation and anticoagulated, his family is unaware of atrial fibrillation. According to the family he has had difficulty with his heart lately but they are nonspecific about it, he evidently has had difficulty with heart failure. The family reports that he had a cardiac catheterization around January 2017 in [place] (I don't have those records) where he did not have any blockages in his arteries. He has recovered quite well and currently has no complaints. He has no palpitations or chest discomfort. Social History Smoking Status: Never Smoker History of Alcohol Use: No Review of Systems Respiratory: No cough Cardiac: + edema (trace) ROS cannot be performed due to patient being intubated Medications Cardiovascular: Item Value Date Time Rivaroxaban 15 mg 05/18/17 0800 (Xarelto Tab) DAILY/PO 05/18/17 0750 Lisinopril 2.5 mg 05/13/17 0800 (Zestril Tab) QAM/PO 05/18/17 0750 Furosemide 40 mg 05/12/17 0800 (Lasix Tab) QAM/PO 05/18/17 0749 Metoprolol 25 mg 05/11/17 0915 Tartrate BID/PO 05/18/17 0749 (Lopressor Tab) Objective Vital Signs Past 12 Hours Date Time Temp Pulse Resp B/P (MAP) Pulse Ox O2 Delivery O2 Flow Rate FiO2 05/18/17 08:45 Room Air 05/18/17 07:26 36.6 88 18 127/85 (99) 96 Room Air 05/18/17 00:11 36.4 79 20 120/78 (92) 94 Room Air 05/18/17 00:00 Room Air Last Recorded Weight-Kilograms: 89.400 Physical Exam Constitutional: Level of Distress: acutely ill Lungs: Respiratory effort: no dyspnea, good air movement Auscultation: no wheezing, decreased breath sounds Cardiovascular: Heart Auscultation: no rubs, no gallops, II/ WSM, irregular rate rhythm Peripheral Pulses: Bruits: none appreciated Extremities: no edema Data Laboratory Results: Last 24 Hours Test 05/18/17 07:10 White Blood Count 12.59 K/uL Red Blood Count 4.08 M/uL Hemoglobin 9.0 g/dL Hematocrit 31.4 % Mean Corpuscular Volume 77.0 fL Mean Corpuscular Hemoglobin 22.1 pg Mean Corpuscular Hemoglobin Concent 28.7 g/dl RDW Standard Deviation 67.6 fL RDW Coefficient of Variation 26.6 % Platelet Count 137 K/uL Platelet Estimate NORMAL Sodium Level 144 mmol/L Potassium Level 4.0 mmol/L Chloride Level 108 mmol/L Carbon Dioxide Level 28 mmol/L Anion Gap 8.0 mmol/L Blood Urea Nitrogen 29 mg/dl Creatinine 1.17 mg/dl Est Creatinine Clear Calc Drug Dose 51.6 ml/min Estimated GFR () 66.0 Estimated GFR (Non- 56.9 BUN/Creatinine Ratio 24.7 Random Glucose 86 mg/dl Calcium Level 8.2 mg/dl Assessment and Plan #1. Cardiomyopathy: He has a cardiomyopathy based on his echocardiogram, with an ejection fraction of 25-30%. Per the family's history he had a catheterization I believe over the summer at [place] that did not show any significant coronary disease, I have not seen those records. 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 I would recommend switching from metoprolol tartrate to metoprolol succinate at discharge, 50 mg of metoprolol succinate daily. If he remains here overnight I would switch tomorrow, possibly to metoprolol succinate 75 mg daily. #2. Congestive heart failure: He seems to have had at least some element of congestive heart failure and I would continue a diuretic, his current dose seems appropriate. #2. Atrial fibrillation: I can't tell the chronicity of his atrial fibrillation , it may be long-standing since he was on warfarin (he was in sinus rhythm in 2014) and I suspect it is permanent now. The family is unaware of it. I agree with Xarelto as an anticoagulant. 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 No treatment indicated. Although I think he follows with a golf club weighter elsewhere, we can arrange follow -up here if desired. I have not arranged follow-up, but if he goes to a local facility we should do that and I can see him in one to 2 weeks in that case. Thank you for allowing me to participate in his care.
[2017-05-18 10:35] VITALS: BP 108/72; PULSE 68; O2SAT 94
[2017-05-18] MEDS ORDERED: METO-217 PO (10:54)
[2017-05-18] MEDS ORDERED: XRL15 PO (10:54)
[2017-05-18 12:13] VITALS: BP 127/85; PULSE 88; TEMP 36.6; O2SAT 96
--- NOTE | 2017-05-18 13:59 | Discharge Summary ---
Discharge Summary Date of Service May 18, 2017. Discharge Summary Admission Date: May 06, 2017 at 11:54 Discharge Date: May 18, 2017 Discharge Disposition: long term facility ([facility]) Principal Diagnosis: Acute hypoxic and hypercarbic respiratory failure Problems/Secondary Diagnoses: Acute on chronic systolic CHF A-fib with RVR SHAY Immunizations: Have You Had Influenza Vaccine: Unknown History of Tetanus Vaccine?: Unknown History of Pneumococcal: Unknown History of Hepatitis B Vaccine: Unknown Procedures: Echocardiogram: Interpretation Summary n Conclusions -- n The left ventricle is mildly dilated. n There is borderline concentric left ventricular hypertrophy. n Left ventricular systolic function is moderately reduced. n Grade I diastolic dysfunction, (abnormal relaxation pattern). n There is moderate global hypokinesis of the left ventricle. n The right ventricle is mild to moderately dilated. n The right ventricular systolic function is normal as assessed by tricuspid annular plane systolic excursion (TAPSE) (normal >1.5 cm). n The left atrium is mildly dilated. n The right atrium is mildly dilated. n There is moderate mitral regurgitation. n There is moderate tricuspid regurgitation. n Right ventricular systolic pressure is elevated at 30-40mmHg. n Mild to moderate aortic regurgitation. n Compared to a study from 05/01/2015, the overall LV systolic function is worse, there has been slight progression of the valvular heart disease. Procedure Details A complete two-dimensional transthoracic echocardiogram was performed (2D, M -mode, Doppler and color flow Doppler). A contrast injection of Definity was performed to improve assessment of LV function. Contrast was injected into an intravenous site in the left arm. One vial of Definity ultrasound contrast was diluted in normal saline to a total volume of 10 ml. A total of '2' ml of solution was administered during imaging. Lot # [id number] of Definity utilized for procedure. Expiration date Jun 14. The attending nurse who injected the contrast agent was Troy Sun RN. Left Ventricle * The left ventricle is mildly dilated. * There is borderline concentric left ventricular hypertrophy. * Ejection Fraction = 25-30%. * Left ventricular systolic function is moderately reduced. * Grade I diastolic dysfunction, (abnormal relaxation pattern). * There is moderate global hypokinesis of the left ventricle. Right Ventricle * The right ventricle is mild to moderately dilated. * The right ventricular systolic function is normal as assessed by tricuspid annular plane systolic excursion (TAPSE) (normal >1.5 cm). Atria * The left atrium is mildly dilated. * The right atrium is mildly dilated. Mitral Valve * There is a calcified lesion on the anterior mitral leaflet which resulted in significant regurgitation. This lesion was present on the last echocardiogram performed in 2014 and appears unchanged. * There is moderate mitral regurgitation. * The mitral regurgitant jet is eccentrically directed. Tricuspid Valve * The tricuspid valve is not well visualized, but is grossly normal. * There is moderate tricuspid regurgitation. * Right ventricular systolic pressure is elevated at 30-40mmHg. Aortic Valve * The aortic valve is normal in structure and function. * No hemodynamically significant valvular aortic stenosis. * Mild to moderate aortic regurgitation. Great Vessels * The aortic root is normal size. Pericardium/Pleural * There is no pericardial effusion. Great Vessels * Dilated inferior vena cava with reduced collapsability with sniff indicates an elevated right atrial pressure of 15 mmHg Consultations: [employer] Cardiology General surgery Gastroenterology Medication Reconciliation New Medications: Ibuprofen (Ibuprofen) 400 Mg Tab 400 MG PO Q6 PRN for Pain, #60 TABS 0 Refills Metoprolol Succinate (Toprol Xl) 50 Mg Tabcr 50 MG PO DAILY for 30 Days, #30 TAB Tramadol (Ultram) 50 Mg Tab 50 MG PO Q4H PRN for Pain, #30 TAB Cyclobenzaprine HCl (Cyclobenzaprine HCl) 10 Mg Tab 10 MG PO TID PRN for Muscle Spasms MDD 30mg, #30 TAB 0 Refills Ferrous Sulfate (Ferrous Sulfate) 325 Mg Tab 325 MG PO BIDM, #60 TAB 3 Refills Furosemide (Furosemide) 40 Mg Tab 40 MG PO QAM, #30 TAB 3 Refills Lisinopril (Lisinopril) 2.5 Mg Tab 2.5 MG PO QAM, #30 TAB 3 Refills Pantoprazole (Pantoprazole Sodium) 40 Mg Tab 40 MG PO BID17, #60 TAB 3 Refills twice a day for two weeks then once a day indefinitely Polyethylene (Miralax) 17 Gm Pow 17 GM PO DAILY PRN for Constipation, #1 BTL 1 Refill Quetiapine Fumarate (Quetiapine Fumarate) 25 Mg Tab 50 MG PO HS, #60 TAB 3 Refills Rivaroxaban (Xarelto) 15 Mg Tab 15 MG PO DAILY for 30 Days, #30 TAB Continued Medications: Aspirin (Aspirin EC Low Dose) 81 Mg Ectab 81 MG PO QAM for 30 Days, 3 Refills Atorvastatin (Atorvastatin Calcium) 40 Mg Tab 40 MG PO QAM for 30 Days, TAB 3 Refills Gabapentin (Neurontin) 100 Mg Cap 100 MG PO HS, CAP Guaifenesin/Codeine (Robitussin-Ac Syrup) 10 Ml/Cup Syrp 10 ML PO Q6H PRN for Cough for 7 Days Meclizine HCl (Meclizine HCl) 25 Mg Tab 25 MG PO Q6H PRN for VERTIGO, #20 TAB Methimazole (Methimazole ) 5 Mg Tab 10 MG PO DAILY Sertraline (Zoloft) 50 Mg Tab 50 MG PO DAILY for 30 Days, #30 TAB 2 Refills Discontinued Medications: Levofloxacin (Levofloxacin) 500 Mg Tab 500 MG PO DAILY@11, #7 TAB Lisinopril (Zestril) 5 Mg Tab 5 MG PO BID Quetiapine Fumarate (Seroquel) 200 Mg Tab 300 MG PO HS, TAB 1 AND 1/2 TABLET DOSE [Amoxicillin/Clavulanate Potas] () 875 MG TAB 875 MG PO BIDM for 5 Days, TAB Discharge Exam Patient reports feeling well. He does have dyspnea on exertion but denies any shortness of breath at rest. He complains of a non-productive cough but denies wheezing today. The patient denies fevers, chills, sweats, chest pain, palpitations, claudication, wheezing, shortness of breath, nausea, vomiting, abdominal pain, dysuria, hematuria, urinary retention, paralysis, weakness, numbness and tingling. Review of Systems: Constitutional: No fever, No chills, No sweats Eyes: No worsening of vision, No eye pain, No diplopia ENT: No hearing loss, No nasal symptoms, No trouble swallowing Respiratory: + dyspnea on exertion, No cough, No wheezing, No dyspnea at rest Cardiovascular: No chest pain, No claudication, No palpitations Abdomen: No pain, No nausea, No vomiting Musculoskeletal: No joint pain, No muscle pain, No calf pain Genitourinary - Male: No hematuria, No dysuria, No urinary retention Neurologic: No paralysis, No weakness, No numbness/tingling Integumentary: + problem reported (ecchymoses), No rash, No itch Physical Exam: General Appearance: WD/WN, no apparent distress Eyes: normal inspection, PERRL, EOMI ENT: normal ENT inspection, hearing grossly normal, pharynx normal Neck: supple, no JVD, trachea midline Respiratory/Chest: lungs clear, no respiratory distress, + decreased breath sounds Cardiovascular: no gallop, + systolic murmur, + irregularly irregular (rate controlled) Abdomen / GI: normal bowel sounds, non tender, soft Extremities: normal inspection, no calf tenderness, + swelling (1+ pitting edema) 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: alert, normal mood/affect, oriented x 3 Skin: normal color, warm/dry, no rash, + pertinent finding (ecchmyoses lower abdomen, right flank, groin and scrotum, back of right knee. Petechia right inner thigh. Areas TTP. Stable appearance.) Hospital Course 86 y/o male with a history of a-fib, systolic CHF, CKD stage III and hyperthyroidism who presents with acute hypoxic and hypercarbic respiratory failure requiring mechanical ventilation. Acute hypoxic and hypercarbic respiratory failure secondary to acute CHF-- resolved, on room air -Pt had arrived intubated from outside hospital. Extubated 05/07 -Saturating well on room air Acute on chronic systolic CHF--resolving -No edema, appears euvolemic -Echo shows worsening of LVEF, down to 25-30% now -Continue lisinopril 2.5 mg PO qd, and Lasix 40 mg PO qd -Lopressor changed to metoprolol succinate 50 mg PO qd per cardio recommendations -Continue daily weights, monitor I's & O's -F/u with cardiology outpt and repeat echo. Dr. Garcia will see pt in 1-2 weeks A-fib with RVR--resolved, rate controlled -Metoprolol as above -Continue Xarelto 15 mg PO qd (renal dosing) SHAY on CKD stage III--resolved -Unclear baseline, but creatinine has been trending down -Creatinine down to 1.17 on 05/18 Microcytic anemia 2nd to iron def anemia--stable -Stool is heme + on 05/08 but never with any true bleeding -Hgb has remained stable, ok to start Xarelto -Ferritin low on 05/10 -Hb down to 7.2 on 05/11, transfused one unit on 05/11, now stable -Consult GI for recommendations, no plans for scopes, treat conservatively -Continue Protonix BID Abdominal pain, hip pain, flank pain--pt with ecchymoses in these areas likely secondary to previous coumadin use, continue to monitor daily, call on site MD if worsening -Amylase/lipase acceptable -LFTs only mildly elevated -US shows cholelithiasis, no signs of cholecystitis -MRCP rules out choledocholithiasis -HIDA scan with no signs of cholecystitis -MSK component from excessive coughing prior to admission -Pain improved with Flexeril and Toradol -Hip and pelvis x-ray on 05/10 showed no fractures Hyperthyroidism - TSH compensated -Continue methimazole 10 mg PO qd 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 Accepted to [facility] for SNF instead Total Time Spent: Greater than 30 minutes This includes examination of the patient, discharge planning, medication reconciliation, and communication with other providers. Discharge Instructions Please refer to the electronic Patient Visit Report (Discharge Instructions) for additional information. Follow-Up Follow up with [facility] medical provider Follow up with Dr. Garcia (cardiology) in 1-2 weeks Additional Copies To [facility]; Hakan Willingham M.D.
== END 2017-05-18 14:18 | DRG 291 ==
LOC: C.MSICU 11:19 → UNDOADMIN 11:19 → C.MSICU 11:54 → C.2E 05-08 18:45 → ENRESERV 05-10 16:08 → C.4E 05-10 17:17
PROVIDERS: ADMIT Internal Medicine Sports Medicine; ATTEND Hospitalist
PROC: 5A1935Z Respiratory Ventilation, Less than 24 Consecutive Hours (ICD-10-PCS; principal; 2017-05-06)
DX: I13.0 Hypertensive heart and chronic kidney disease with heart failure and stage 1 through stage 4 chronic kidney disease, or unspecified chronic kidney disease (principal); J96.01 Acute respiratory failure with hypoxia; J96.02 Acute respiratory failure with hypercapnia; I50.23 Acute on chronic systolic (congestive) heart failure; N17.9 Acute kidney failure, unspecified; I48.91 Unspecified atrial fibrillation; D50.9 Iron deficiency anemia, unspecified; R10.11 Right upper quadrant pain; R10.31 Right lower quadrant pain; K80.20 Calculus of gallbladder without cholecystitis without obstruction; K59.00 Constipation, unspecified; J44.9 Chronic obstructive pulmonary disease, unspecified; E05.00 Thyrotoxicosis with diffuse goiter without thyrotoxic crisis or storm; N18.3 Chronic kidney disease, stage 3 (moderate); I71.4 Abdominal aortic aneurysm, without rupture; I42.9 Cardiomyopathy, unspecified; I45.10 Unspecified right bundle-branch block; I08.1 Rheumatic disorders of both mitral and tricuspid valves; G31.84 Mild cognitive impairment of uncertain or unknown etiology; F32.9 Major depressive disorder, single episode, unspecified; Z66 Do not resuscitate; Z85.72 Personal history of non-Hodgkin lymphomas; Z79.82 Long term (current) use of aspirin; Z79.899 Other long term (current) drug therapy; Z91.041 Radiographic dye allergy status; Z88.2 Allergy status to sulfonamides; Z82.49 Family history of ischemic heart disease and other diseases of the circulatory system; Z84.1 Family history of disorders of kidney and ureter

== ENCOUNTER → 2017-05-24 | Outpatient (CLI) | payer OTHER ==
[~2017-05-24] MED LIST changes: -ASPEC81 PO; +ASPI-320 PO; +ASPI1TAB83 PO; +ATOR-24 PO; -Amoxicillin/Clavulanate Potas PO; +ERGO500037 PO; +FERR1TAB23 PO; +FLX10 PO; +FRRS300 PO; +FRS/40 PO; +LISI-789 PO; -LISI-790 PO; +LSN25 PO; +LSX40 PO; -LVQ500 PO; +MCRK20 PO; +MCTP EXT; +METH-848 PO; +METH10TA6 PO; +METO-217 PO; +METO-551 PO; +METO50TA16 PO; +METO50TA17 PO; +MRLP17 PO; +MTR400 PO; +PANT1TAB4 PO; +PANT40TA PO; +PANT40TA2 PO; +POTA10CA28 PO; +QUET5TAB PO; +SENN-61 PO; +SENN-65 PO; -SRQ/200 PO; +SRQ25 PO; +TPRSR50 PO; +TRAM-10 PO; +VNTHFA/IN INH; +XRL15 PO; +ZLF/50 PO
[2017-05-24 08:20] LABS: ALBUMIN 2.9 gm/dl (3.4-5.0); ALT/SGPT 22 U/L (12-78); BLOOD UREA NITROGEN 24 mg/dl (7-18); CALCIUM 7.7 mg/dl (8.5-10.1); CARBON DIOXIDE 28 mmol/L (21-32); CREATININE 1.19 mg/dl (0.60-1.40); GLUCOSE 106 mg/dl (70-99); SODIUM 143 mmol/L (136-145)
[2017-05-24 08:30] LABS: ALKALINE PHOSPHATASE 111 U/L (45-117); AST/SGOT 20 U/L (15-37); TOTAL PROTEIN 5.7 gm/dl (6.4-8.2)
[2017-05-24 08:40] LABS: HEMATOCRIT 31.7 % (42-52); HEMOGLOBIN 9.3 g/dL (14.0-18.0); MEAN CELL VOLUME 80.5 fL (80-100); MEAN CORPUSCULAR HEMOGLOBIN 23.6 pg (25-34); MEAN CORPUSCULAR HGB CONC 29.3 g/dl (32-36); PLATELET COUNT 146 K/uL (130-400); RED CELL DISTRIBUTION WIDTH CV 29.8 % (11.5-14.5); WHITE BLOOD COUNT 5.55 K/uL (4.8-10.8)
[2017-05-24 09:23] LABS: HEMOGLOBIN A1C 5.5 % (4.5-5.6)
--- NOTE | 2017-05-25 10:10 | CODING QUERY NO DIAGNOSIS ---
TREATMENT RENDERED WITHOUT A DIAGNOSIS : 1930 To promote full compliance with coding requirements relating to patient care, physician participation is requested in all cases of quad stayer uncertainty. Please assist us with providing a diagnosis/symptom for the test(s) below: A diagnosis/symptom was not documented on your Order. A valid diagnosis/symptom is required to bill all insurances. Please remember that we are unable to code a diagnosis of rule out, probable, possible, questionable, or suspected. Tests that require a diagnosis: DOS: 05/24/17 * CBC W/O DIFF DIAGNOSIS: * COMPREHENSIVE METABO DIAGNOSIS: * T4 FREE DIAGNOSIS: * THYROID STIMULATING DIAGNOSIS: * HEMOGLOBIN A1C DIAGNOSIS: Provider Signature: Date: Thank you Manuela Greer Health Information Management Once completed, please kindly fax back to [phone] For questions please call [phone]
--- NOTE | 2017-07-08 08:16 | CODING QUERY MEDICAL NECESSITY ---
CQSUPPORTING DIAGNOSIS NEEDED A supporting diagnosis is required for the test/procedure performed on this patient in order for us to be reimbursed by the patient's insurance. Please provide a supporting diagnosis for the following test/procedure listed below next to the test name along with your signature. *If there is no additional diagnosis for this patient that would support the following test/procedure please document that below next to the test/procedure. Test(s)/Procedure(s) that require a supporting diagnosis: DOS 05/24/17 GLYCATED HEMOGLOBIN TEST TEST ORDER BY RADHA OTERO SENIOR CLINICAL RESEARCH SCIENTIST DR KRUSE PATIENT AT [facility] Provider Signature: Date: Thank you Deborah Doe Health Information Management Once completed, please kindly fax back to [phone] For questions please call [phone]
== END ==
LOC: C.LABUPNIT 07:36
PROVIDERS: ATTEND Family Medicine
DX: N18.3 Chronic kidney disease, stage 3 (moderate) (principal); E05.90 Thyrotoxicosis, unspecified without thyrotoxic crisis or storm

== ENCOUNTER → 2017-05-31 | Outpatient (CLI) | payer OTHER ==
[~2017-05-31] MED LIST changes: +ASPEC81 PO; -ASPI-320 PO; -ASPI1TAB83 PO; -ATOR-24 PO; -ERGO500037 PO; -FERR1TAB23 PO; -FRS/40 PO; -LISI-789 PO; -MCRK20 PO; -MCTP EXT; -METH-848 PO; -METH10TA6 PO; -METO-551 PO; -METO50TA16 PO; -METO50TA17 PO; -PANT1TAB4 PO; -PANT40TA PO; -PANT40TA2 PO; -POTA10CA28 PO; +PRT40 PO; -QUET5TAB PO; -SENN-61 PO; -SENN-65 PO; -TPRSR50 PO; -VNTHFA/IN INH; -ZLF/50 PO
[2017-05-31 08:39] LABS: HEMATOCRIT 33.6 % (42-52)
== END ==
LOC: C.LABUPNIT 07:37
PROVIDERS: ATTEND Family Medicine
DX: D50.9 Iron deficiency anemia, unspecified (principal); F32.9 Major depressive disorder, single episode, unspecified

== ENCOUNTER 2017-07-18 10:36 | Inpatient (IN) | payer OTHER ==
[~2017-07-18] VITALS: Ht 185.4 cm; Wt 87.0 kg
[~2017-07-18 10:36] MED LIST changes: -METO-217 PO
[2017-07-18] MEDS ORDERED: LISI-789 PO (11:49)
[2017-07-18] MEDS ORDERED: METH10TA6 PO (11:49)
[2017-07-18] MEDS ORDERED: ERGO500037 PO (11:49)
[2017-07-18] MEDS ORDERED: ATOR-24 PO (11:49)
[2017-07-18] MEDS ORDERED: PANT40TA PO (11:49)
[2017-07-18] MEDS ORDERED: METO-551 PO (11:49)
[2017-07-18] MEDS ORDERED: ASPI1TAB83 PO (11:49)
[2017-07-18] MEDS ORDERED: QUET5TAB PO (11:49)
[2017-07-18] MEDS ORDERED: SENN-61 PO (11:49)
[2017-07-18] MEDS ORDERED: XRL15 PO (11:49)
[2017-07-18] MEDS ORDERED: FERR1TAB23 PO (11:51)
[2017-07-18] MEDS ORDERED: FRS/40 PO (11:51)
--- NOTE | 2017-07-18 11:51 | EMERGENCY ROOM VISIT NOTE ---
History Report prepared by Magyibtorri: Concepcion Alcazar Under the Supervision of: Dr. Romario Dudley M.D. First contact with patient: 11:37 Chief Complaint: FALL Stated Complaint: FALL History of Present Illness The patient is a 86 year old male who presents to the Emergency Room with complaints of a fall that occurred overnight. He was brought to the ED via EMS. Per EMS, the patient lives at home alone. He fell three times this morning and lost consciousness and does not remember the 3rd fall. He believes he did hit his head during one of the falls, but denies any headache. He complains of a neck pain, shortness of breath, bilateral shoulder pain, back pain and penile pain. He rates his discomfort as an 8/10. He admits to swollen testicles for the past 1 month and states he has had some difficulty urinating. He denies any chest pain or abdominal pain. The patient takes daily Lasix and Xarelto. Source of History: patient, EMS Onset: Earlier this morning Position: other (global) Timing: resolved Associated Symptoms: + LOC, + neck pain, + SOB, + back pain, + urinary symptoms, No headache, No chest pain, No abdominal pain Review of Systems See HPI for pertinent positives & negatives. A total of 10 systems reviewed and were otherwise negative. Past Medical & Surgical Medical Problems: (1) HTN (hypertension) (2) Kidney stone (3) Lymphoma (4) Respiratory failure requiring intubation Family History FH: cancer FHx: hypertension Kidney disease or stones Social History Smoking Status: Former Smoker Alcohol Use: none Drug Use: none Marital Status: Housing Status: lives with significant other Occupation Status: retired Current/Historical Medications Scheduled Aspirin (Aspirin), 81 MG PO DAILY Atorvastatin (Lipitor), 40 MG PO DAILY Ergocalciferol (Vitamin D 38216 Unit), 50,000 UNIT PO WK Ferrous Sulfate (Iron), 325 MG PO BID Furosemide (Lasix), 40 MG PO QAM Lisinopril (Zestril), 2.5 MG PO DAILY Methimazole (Tapazole), 10 MG PO DAILY Metoprolol Tartrate (Lopressor), 25 MG PO BID Pantoprazole (Protonix), 40 MG PO DAILY Quetiapine Fumarate (Seroquel), 50 MG PO HS Rivaroxaban (Xarelto), 15 MG PO DAILY Senna (Senokot), 1 TAB PO DAILY Sertraline (Zoloft), 50 MG PO DAILY Allergies Coded Allergies: Iodinated Diagnostic Agents (Verified Allergy, Severe, ANAPHYLAXIS, ) Sulfa Antibiotics (Verified Allergy, Unknown, UNKNOWN, 04/30/15) Physical Exam Vital Signs Date Time Temp Pulse Resp B/P (MAP) Pulse Ox O2 Delivery O2 Flow Rate FiO2 07/18/17 16:14 90 20 126/90 96 Nasal Cannula 3.0 07/18/17 13:21 98 20 145/96 93 Room Air 07/18/17 10:51 85 07/18/17 10:36 37.5 86 27 121/83 96 Room Air Physical Exam GENERAL: Patient is elderly appearing and in minimal distress. HEENT: No acute trauma, normocephalic atraumatic, mucous membranes moist, no nasal congestion, no scleral icterus. NECK: No stridor, no adenopathy, no meningismus, trachea is midline. LUNGS: No dyspnea. Clear to auscultation and equal bilaterally. No wheeze, no rhonchi. CHEST: Vague tenderness to left anterior chest wall. HEART: Regular rate and rhythm. No murmurs, rubs, gallops appreciated. ABDOMEN: Soft, tenderness over the suprapubic region with pitting edema in the abdomen, bowel sounds positive, no masses appreciated, no peritonitis. : 4+ edema in the scrotum, which has enveloped the entire penis. BACK: No midline tenderness, no CVA tenderness EXTREMITIES: Pitting edema in the bilateral legs. Normal motion all extremities , no cyanosis. NEUROLOGIC: Alert and oriented, no acute motor or sensory deficits, no focal weakness, cranial nerves grossly intact. SKIN: No rash, no jaundice, no diaphoresis. Medical Decision & Procedures ER Provider Diagnostic Interpretation: Radiology results and stated below per my review and radiologist interpretation: CERVICAL SPINE W/O CT DOSE: 1344.94 mGy.cm CLINICAL HISTORY: 86 years-old Male with fall right neck pain. Acute neck pain status post fall pain is most pronounced on the right. COMPARISON: CT head of same day. TECHNIQUE: Multiple axial CT images of the cervical spine were obtained without contrast. A dose lowering technique was utilized adhering to the principles of ALARA. FINDINGS: There are calcifications of the nuchal ligament. Bones appear mildly demineralized. There is 3 mm retrolisthesis C4 on C5 and 2 mm anterolisthesis C6 on C7, likely secondary to long-standing facet disease. Multilevel severe facet arthropathy is noted with multiple levels demonstrating facet effusion. Severe multilevel intervertebral disc space narrowing with endplate spurring is noted. There is mild convex right curvature of the cervical spine. No acute fracture or subluxation. Degree of central canal and foraminal narrowing is better assessed by MRI. Mastoid air cells and middle ear cavities are clear. Dense atherosclerosis of the carotid bulbs bilaterally, left greater than right. Multinodular enlarged thyroid goiter. Small bilateral pleural effusions are partially imaged. IMPRESSION: 1. No acute fracture or subluxation. 2. Severe multilevel discogenic degenerative changes, endplate spurring and facet arthrosis. 3. Multinodular goiter. 4. Small bilateral pleural effusions. The above report was generated using voice recognition software. It may contain grammatical, syntax or spelling errors. Electronically signed by: Troy Calzada M.D. 07/18/2017 1:44 PM CHEST ONE VIEW PORTABLE HISTORY: 86 years-old Male Generalized Weakness acute generalized weakness COMPARISON: Chest radiograph 05/09/2017 TECHNIQUE: Portable AP view of the chest FINDINGS: Cardiac silhouette is again enlarged, unchanged. Atherosclerosis of the aorta. Pulmonary vascular congestion with mild interstitial coarsening suggests mild pulmonary edema. Trace bilateral pleural effusions with bibasilar opacities. No pneumothorax. Bones of the chest appear grossly intact. IMPRESSION: 1. Cardiomegaly with pulmonary vascular congestion and mild interstitial coarsening suggests mild pulmonary edema. 2. Small bilateral pleural effusions with linear subsegmental bibasilar opacities suggesting atelectasis. The above report was generated using voice recognition software. It may contain grammatical, syntax or spelling errors. Electronically signed by: Troy Calzada M.D. 07/18/2017 12:13 PM HEAD WITHOUT CONTRAST (CT) CLINICAL HISTORY: 86 years-old Male with Generalized Weakness. Acute generalized weakness with history of recent multiple falls TECHNIQUE: Multiple axial CT images of the head were obtained without contrast. A dose lowering technique was utilized adhering to the principles of ALARA. COMPARISON: CT cervical spine of same day, CT head 04/30/2015, brain MRI 05/01/2015. FINDINGS: No acute intracranial hemorrhage, midline shift, intracranial mass, hydrocephalus, territorial ischemia or abnormal extra-axial collection. Moderate brain atrophy with chronic microvascular ischemic changes. 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 The calvarium is intact. The paranasal sinuses, mastoid air cells, and middle ear cavities are clear. IMPRESSION: No acute intracranial abnormality. The above report was generated using voice recognition software. It may contain grammatical, syntax or spelling errors. Electronically signed by: Troy Calzada M.D. 07/18/2017 1:39 PM PELVIS 1 OR 2 VIEW ROUTINE HISTORY: 86 years-old Male fall 3 times last night acute pelvic pain status post recent fall COMPARISON: Pelvis bilateral hip radiographs 05/11/2017 TECHNIQUE: AP view of the pelvis FINDINGS: Mild to moderate degenerative changes of the bilateral hips. No acute fracture or subluxation. Degenerative changes are seen within the lower lumbar spine. Soft tissues are unremarkable. IMPRESSION: No acute fracture or subluxation. The above report was generated using voice recognition software. It may contain grammatical, syntax or spelling errors. Electronically signed by: Troy Calzada M.D. 07/18/2017 12:11 PM Laboratory Results 07/18/17 12:27 Red Blood Count 4.77, Mean Corpuscular Volume 83.6, Mean Corpuscular Hemoglobin 25.6, Mean Corpuscular Hemoglobin Concent 30.6, Mean Platelet Volume 9.6, Neutrophils (%) (Auto) 51.8, Lymphocytes (%) (Auto) 28.1, Monocytes (%) (Auto) 14.6, Eosinophils (%) (Auto) 4.8, Basophils (%) (Auto) 0.4, Neutrophils # (Auto ) 3.92, Lymphocytes # (Auto) 2.12, Monocytes # (Auto) 1.10, Eosinophils # (Auto ) 0.36, Basophils # (Auto) 0.03 07/18/17 12:27 Test 07/18/17 12:27 07/18/17 13:30 White Blood Count 7.55 K/uL (4.8-10.8) Red Blood Count 4.77 M/uL (4.7-6.1) Hemoglobin 12.2 g/dL (14.0-18.0) Hematocrit 39.9 % (42-52) Mean Corpuscular Volume 83.6 fL (80-100) Mean Corpuscular Hemoglobin 25.6 pg (25-34) Mean Corpuscular Hemoglobin Concent 30.6 g/dl (32-36) Platelet Count 186 K/uL (130-400) Mean Platelet Volume 9.6 fL (7.4-10.4) Neutrophils (%) (Auto) 51.8 % Lymphocytes (%) (Auto) 28.1 % Monocytes (%) (Auto) 14.6 % Eosinophils (%) (Auto) 4.8 % Basophils (%) (Auto) 0.4 % Neutrophils # (Auto) 3.92 K/uL (1.4-6.5) Lymphocytes # (Auto) 2.12 K/uL (1.2-3.4) Monocytes # (Auto) 1.10 K/uL (0.11-0.59) Eosinophils # (Auto) 0.36 K/uL (0-0.5) Basophils # (Auto) 0.03 K/uL (0-0.2) RDW Standard Deviation 71.4 fL (36.4-46.3) RDW Coefficient of Variation 22.7 % (11.5-14.5) Immature Granulocyte % (Auto) 0.3 % Immature Granulocyte # (Auto) 0.02 K/uL (0.00-0.02) Nucleated RBC Absolute Count (auto) 0.00 K/uL (0-0) Nucleated Red Blood Cells % 0.0 % Anisocytosis PRESENT Ovalocytes 1+ Schistocytes 1+ Prothrombin Time 13.1 SECONDS (9.0-12.0) Prothromb Time International Ratio 1.3 (0.9-1.1) Activated Partial Thromboplast Time 30.1 SECONDS (21.0-31.0) Partial Thromboplastin Ratio 1.2 Anion Gap 6.0 mmol/L (3-11) Est Creatinine Clear Calc Drug Dose 44.7 ml/min Estimated GFR () 53.6 Estimated GFR (Non- 46.2 BUN/Creatinine Ratio 12.0 (10-20) Calcium Level 8.4 mg/dl (8.5-10.1) Phosphorus Level 3.5 mg/dl (2.5-4.9) Magnesium Level 2.0 mg/dl (1.8-2.4) Total Bilirubin 0.9 mg/dl (0.2-1) Direct Bilirubin 0.4 mg/dl (0-0.2) Aspartate Amino Transf (AST/SGOT) 27 U/L (15-37) Alanine Aminotransferase (ALT/SGPT) 15 U/L (12-78) Alkaline Phosphatase 121 U/L (45-117) Total Creatine Kinase 207 U/L (39-308) Creatine Kinase MB 6.4 ng/ml (0.5-3.6) Creatine Kinase MB Ratio 3.1 (0-3.0) Troponin I 0.028 ng/ml (0-0.045) Total Protein 6.2 gm/dl (6.4-8.2) Albumin 3.1 gm/dl (3.4-5.0) Lipase 104 U/L (73-393) Urine Color DK YELLOW Urine Appearance CLEAR (CLEAR) Urine pH 5.0 (4.5-7.5) Urine Specific [place] 1.027 (1.000-1.030) Urine Protein 1+ (NEG) Urine Glucose (UA) NEG (NEG) Urine Ketones TRACE (NEG) Urine Occult Blood NEG (NEG) Urine Nitrite NEG (NEG) Urine Bilirubin NEG (NEG) Urine Urobilinogen NEG (NEG) Urine Leukocyte Esterase NEG (NEG) Urine WBC (Auto) 1-5 /hpf (0-5) Urine RBC (Auto) 0-4 /hpf (0-4) Urine Hyaline Casts (Auto) 1-5 /lpf (0-5) Urine Epithelial Cells (Auto) 10-20 /lpf (0-5) Urine Bacteria (Auto) NEG (NEG) Laboratory results as reviewed by me. Medications Administered Medications (Trade) Dose Ordered Sig/Claudia Route Start Time Stop Time Status Last Admin Dose Admin Furosemide (Lasix Inj) 40 mg NOW STAT IV 07/18/17 13:45 07/18/17 13:46 DC 07/18/17 14:08 40 MG ECG Indication: weakness Rate (beats per minute): 92 Rhythm: atrial fibrillation Findings: PVC, RBBB, no acute ischemic change Change: EKG was interpreted by me. ED Course 1138: The patient was evaluated in room C9. A complete history and physical exam was performed. 1245: Nursing was unable to get a catheter in the patients bladder. 1345: Lasix 40 mg IV. 1346: I discussed the patients case with Dr. Flood [facility] Hospitalist. The patient will be further evaluated. Medical Decision Differential: Sepsis, Infectious (UTI/Pneumonia/Meningitis/etc), Metabolic/ Electrolyte Abnormality, Cardiac, Hepatic, Endocrine, Toxicologic, Neurologic, amongst other pathologies entertained. 86 yr old male arrives with complaint of multiple falls and weakness over last 12 hours. He is significantly fluid overloaded with edema so severe in scrotum he is unable to urinate and required putnam placement for this. CXR revealing developing Pulm Edema. Edema all the way up to abdomen and back on examination. No clear evidence infection nor ACS. Not requiring Bipap or invasive ventilation at this time. Lasix given IV once renal function obtained. With falls CT head/neck, cxr, pelv xrays done without clear evidence of injury. Head Trauma GCS Score: 15 Medication Reconcilliation Current Medication List: was personally reviewed by me Blood Pressure Screening Patient's blood pressure: Normal blood pressure Blood pressure disposition: Did not require urgent referral Consults Time Called: 1340 Consulting Physician: Dr. Flood [facility] Hospitalist Returned Call: 1346 I discussed the patients case with Dr. Flood [facility] Hospitalist. The patient will be further evaluated. Impression Primary Impression: CHF (congestive heart failure) Additional Impressions: Pulmonary edema Scrotal edema Syncopal episodes Urinary retention Scribe Attestation The scribe's documentation has been prepared under my direction and personally reviewed by me in its entirety. I confirm that the note above accurately reflects all work, treatment, procedures, and medical decision making performed by me. Departure Information Dispostion Being Evaluated By Hospitalist Patient Instructions My [facility] Problem Qualifiers
--- NOTE | 2017-07-18 12:12 | DIAGNOSTIC IMAGING REPORT ---
PELVIS 1 OR 2 VIEW ROUTINE HISTORY: 86 years-old Male fall 3 times last night acute pelvic pain status post recent fall COMPARISON: Pelvis bilateral hip radiographs 05/11/2017 TECHNIQUE: AP view of the pelvis FINDINGS: Mild to moderate degenerative changes of the bilateral hips. No acute fracture or subluxation. Degenerative changes are seen within the lower lumbar spine. Soft tissues are unremarkable. IMPRESSION: No acute fracture or subluxation. The above report was generated using voice recognition software. It may contain grammatical, syntax or spelling errors. Electronically signed by: Troy Calzada M.D. 07/18/2017 12:11 PM Dictated Date/Time: 07/18/2017 12:10 PM
--- NOTE | 2017-07-18 12:14 | DIAGNOSTIC IMAGING REPORT ---
CHEST ONE VIEW PORTABLE HISTORY: 86 years-old Male Generalized Weakness acute generalized weakness COMPARISON: Chest radiograph 05/09/2017 TECHNIQUE: Portable AP view of the chest FINDINGS: Cardiac silhouette is again enlarged, unchanged. Atherosclerosis of the aorta. Pulmonary vascular congestion with mild interstitial coarsening suggests mild pulmonary edema. Trace bilateral pleural effusions with bibasilar opacities. No pneumothorax. Bones of the chest appear grossly intact. IMPRESSION: 1. Cardiomegaly with pulmonary vascular congestion and mild interstitial coarsening suggests mild pulmonary edema. 2. Small bilateral pleural effusions with linear subsegmental bibasilar opacities suggesting atelectasis. The above report was generated using voice recognition software. It may contain grammatical, syntax or spelling errors. Electronically signed by: Troy Calzada M.D. 07/18/2017 12:13 PM Dictated Date/Time: 07/18/2017 12:11 PM
[2017-07-18 12:39] LABS: HEMATOCRIT 39.9 % (42-52); HEMOGLOBIN 12.2 g/dL (14.0-18.0); MEAN CELL VOLUME 83.6 fL (80-100); MEAN CORPUSCULAR HEMOGLOBIN 25.6 pg (25-34); MEAN CORPUSCULAR HGB CONC 30.6 g/dl (32-36); MEAN PLATELET VOLUME 9.6 fL (7.4-10.4); PLATELET COUNT 186 K/uL (130-400); RED CELL DISTRIBUTION WIDTH CV 22.7 % (11.5-14.5); RED CELL DISTRIBUTION WIDTH SD 71.4 fL (36.4-46.3); WHITE BLOOD COUNT 7.55 K/uL (4.8-10.8)
[2017-07-18 12:56] LABS: INR 1.3 (0.9-1.1); PTT PATIENT 30.1 SECONDS (21.0-31.0)
[2017-07-18 12:59] LABS: ALBUMIN 3.1 gm/dl (3.4-5.0); CALCIUM 8.4 mg/dl (8.5-10.1); CREATININE 1.39 mg/dl (0.60-1.40); POTASSIUM 3.6 mmol/L (3.5-5.1)
[2017-07-18 13:02] LABS: CKMB 6.4 ng/ml (0.5-3.6); PHOSPHORUS 3.5 mg/dl (2.5-4.9); TOTAL PROTEIN 6.2 gm/dl (6.4-8.2)
[2017-07-18 13:33] LABS: BASO % 0.4 %; BASO ABS # 0.03 K/uL (0-0.2); EOS % 4.8 %; EOS ABS # 0.36 K/uL (0-0.5); IG# 0.02 K/uL (0.00-0.02); LYMPH % 28.1 %; LYMPH ABS # 2.12 K/uL (1.2-3.4); MONO % 14.6 %; NEUT % 51.8 %; NEUT ABS # 3.92 K/uL (1.4-6.5)
--- NOTE | 2017-07-18 13:40 | DIAGNOSTIC IMAGING REPORT ---
HEAD WITHOUT CONTRAST (CT) CLINICAL HISTORY: 86 years-old Male with Generalized Weakness. Acute generalized weakness with history of recent multiple falls TECHNIQUE: Multiple axial CT images of the head were obtained without contrast. A dose lowering technique was utilized adhering to the principles of ALARA. COMPARISON: CT cervical spine of same day, CT head 04/30/2015, brain MRI 05/01/2015. FINDINGS: No acute intracranial hemorrhage, midline shift, intracranial mass, hydrocephalus, territorial ischemia or abnormal extra-axial collection. Moderate brain atrophy with chronic microvascular ischemic changes. 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 The calvarium is intact. The paranasal sinuses, mastoid air cells, and middle ear cavities are clear. IMPRESSION: No acute intracranial abnormality. The above report was generated using voice recognition software. It may contain grammatical, syntax or spelling errors. Electronically signed by: Troy Calzada M.D. 07/18/2017 1:39 PM Dictated Date/Time: 07/18/2017 1:36 PM
[2017-07-18] MEDS ORDERED: FUROSEMIDE 40 MG/4 ML VIAL IV STA (13:45)
--- NOTE | 2017-07-18 13:46 | DIAGNOSTIC IMAGING REPORT ---
CERVICAL SPINE W/O CT DOSE: 1344.94 mGy.cm CLINICAL HISTORY: 86 years-old Male with fall right neck pain. Acute neck pain status post fall pain is most pronounced on the right. COMPARISON: CT head of same day. TECHNIQUE: Multiple axial CT images of the cervical spine were obtained without contrast. A dose lowering technique was utilized adhering to the principles of ALARA. FINDINGS: There are calcifications of the nuchal ligament. Bones appear mildly demineralized. There is 3 mm retrolisthesis C4 on C5 and 2 mm anterolisthesis C6 on C7, likely secondary to long-standing facet disease. Multilevel severe facet arthropathy is noted with multiple levels demonstrating facet effusion. Severe multilevel intervertebral disc space narrowing with endplate spurring is noted. There is mild convex right curvature of the cervical spine. No acute fracture or subluxation. Degree of central canal and foraminal narrowing is better assessed by MRI. Mastoid air cells and middle ear cavities are clear. Dense atherosclerosis of the carotid bulbs bilaterally, left greater than right. Multinodular enlarged thyroid goiter. Small bilateral pleural effusions are partially imaged. IMPRESSION: 1. No acute fracture or subluxation. 2. Severe multilevel discogenic degenerative changes, endplate spurring and facet arthrosis. 3. Multinodular goiter. 4. Small bilateral pleural effusions. The above report was generated using voice recognition software. It may contain grammatical, syntax or spelling errors. Electronically signed by: Troy Calzada M.D. 07/18/2017 1:44 PM Dictated Date/Time: 07/18/2017 1:39 PM
--- NOTE | 2017-07-18 16:11 | History and Physical ---
History & Physical Date & Time of Service: Jul 18, 2017 at 16:04 Chief Complaint: FALL Primary Care Physician: Hakan Willingham M.D. History of Present Illness Source: patient 86 yo male who presents to the hospital with complaints of Shortness of breath on exertion and rest. Patient reports that today he had about 2 falls today and had a syncopal episode on his 3rd fall. He reports hitting his head but denies any head ache now. He does complain of bilateral shoulder pain and neck pain. He states that the falls, genralized weakness and shortness of breath prompted him to go to the ER. He has noticed gradual increase in fluid retention in his lower extremities as they have become more swollen, even affecting his testicles for the past month. He also reports having difficulty to void. This increase of edema has also correlated with an increase of his Shortness of breath. He would be SOB while walking in the house, but as it progressed, it became even when he was resting. Patient reports orthopnea as well.He denies chest pain, abd. pain. Patient is compliant with his lasix and xarelto. In the ER, lasix IV 40 mg was given and patient feels some improvement. His daughter states that his color improved. Past Medical/Surgical History Medical Problems: (1) HTN (hypertension) Status: Chronic (2) Kidney stone Status: Chronic (3) Lymphoma Status: Chronic Family History FH: cancer FHx: hypertension Kidney disease or stones Social History Smoking Status: Former Smoker Drug Use: none Marital Status: Occupational Status: retired Immunizations History of Influenza Vaccine: Unknown History of Tetanus Vaccine?: Unknown History of Pneumococcal: Unknown History of Hepatitis B Vaccine: Unknown Allergies Coded Allergies: Iodinated Diagnostic Agents (Verified Allergy, Severe, ANAPHYLAXIS, ) Sulfa Antibiotics (Verified Allergy, Unknown, UNKNOWN, 04/30/15) Home Medications Scheduled Aspirin (Aspirin), 81 MG PO DAILY Atorvastatin (Lipitor), 40 MG PO DAILY Ergocalciferol (Vitamin D 01016 Unit), 50,000 UNIT PO WK Ferrous Sulfate (Iron), 325 MG PO BID Furosemide (Lasix), 40 MG PO QAM Lisinopril (Zestril), 2.5 MG PO DAILY Methimazole (Tapazole), 10 MG PO DAILY Metoprolol Tartrate (Lopressor), 25 MG PO BID Pantoprazole (Protonix), 40 MG PO DAILY Quetiapine Fumarate (Seroquel), 50 MG PO HS Rivaroxaban (Xarelto), 15 MG PO DAILY Senna (Senokot), 1 TAB PO DAILY Sertraline (Zoloft), 50 MG PO DAILY Review of Systems Constitutional: No fever, No chills Eyes: No worsening of vision Respiratory: No cough, No sputum Cardiovascular: + orthopnea, + edema, No chest pain Abdomen: No pain, No nausea Musculoskeletal: No joint pain Neurologic: No memory loss, No paralysis Psychiatric: No depression symptoms Endocrine: No fatigue Integumentary: No rash Allergic / Immunologic: No environmental allergies Physical Exam Vital Signs Date Time Temp Pulse Resp B/P (MAP) Pulse Ox O2 Delivery O2 Flow Rate FiO2 07/18/17 13:21 98 20 145/96 93 Room Air 07/18/17 10:51 85 07/18/17 10:36 37.5 86 27 121/83 96 Room Air General Appearance: WD/WN, no apparent distress Head: normocephalic Eyes: normal inspection ENT: normal ENT inspection Neck: supple, no adenopathy Respiratory/Chest: chest non-tender, + accessory muscle use, + wheezing Cardiovascular: normal peripheral pulses, + tachycardia, + systolic murmur, + pertinent finding (pedal edema +3) Abdomen/GI: normal bowel sounds, non tender, soft Genitourinary - Male: + pertinent finding (thrid spacing noticed in testcles and penis. Root in place.) Back: normal inspection Extremities/Musculoskelatal: + swelling Neurologic/Psych: alert, oriented x 3 Skin: normal color Lymphatic: no adenopathy Diagnostics Laboratory Results Results Past 24 Hours Test 07/18/17 12:27 07/18/17 13:30 Range/Units White Blood Count 7.55 4.8-10.8 K/uL Red Blood Count 4.77 4.7-6.1 M/uL Hemoglobin 12.2 14.0-18.0 g/dL Hematocrit 39.9 42-52 % Mean Corpuscular Volume 83.6 80-100 fL Mean Corpuscular Hemoglobin 25.6 25-34 pg Mean Corpuscular Hemoglobin Concent 30.6 32-36 g/dl Platelet Count 186 130-400 K/uL Mean Platelet Volume 9.6 7.4-10.4 fL Neutrophils (%) (Auto) 51.8 % Lymphocytes (%) (Auto) 28.1 % Monocytes (%) (Auto) 14.6 % Eosinophils (%) (Auto) 4.8 % Basophils (%) (Auto) 0.4 % Neutrophils # (Auto) 3.92 1.4-6.5 K/uL Lymphocytes # (Auto) 2.12 1.2-3.4 K/uL Monocytes # (Auto) 1.10 0.11-0.59 K/uL Eosinophils # (Auto) 0.36 0-0.5 K/uL Basophils # (Auto) 0.03 0-0.2 K/uL RDW Standard Deviation 71.4 36.4-46.3 fL RDW Coefficient of Variation 22.7 11.5-14.5 % Immature Granulocyte % (Auto) 0.3 % Immature Granulocyte # (Auto) 0.02 0.00-0.02 K/uL Nucleated RBC Absolute Count (auto) 0.00 0-0 K/uL Nucleated Red Blood Cells % 0.0 % Anisocytosis PRESENT Ovalocytes 1+ Schistocytes 1+ Prothrombin Time 13.1 9.0-12.0 SECONDS Prothromb Time International Ratio 1.3 0.9-1.1 Activated Partial Thromboplast Time 30.1 21.0-31.0 SECONDS Partial Thromboplastin Ratio 1.2 Sodium Level 145 136-145 mmol/L Potassium Level 3.6 3.5-5.1 mmol/L Chloride Level 109 98-107 mmol/L Carbon Dioxide Level 30 21-32 mmol/L Anion Gap 6.0 3-11 mmol/L Blood Urea Nitrogen 17 7-18 mg/dl Creatinine 1.39 0.60-1.40 mg/dl Est Creatinine Clear Calc Drug Dose 44.7 ml/min Estimated GFR () 53.6 Estimated GFR (Non- 46.2 BUN/Creatinine Ratio 12.0 10-20 Random Glucose 74 70-99 mg/dl Calcium Level 8.4 8.5-10.1 mg/dl Phosphorus Level 3.5 2.5-4.9 mg/dl Magnesium Level 2.0 1.8-2.4 mg/dl Total Bilirubin 0.9 0.2-1 mg/dl Direct Bilirubin 0.4 0-0.2 mg/dl Aspartate Amino Transf (AST/SGOT) 27 15-37 U/L Alanine Aminotransferase (ALT/SGPT) 15 12-78 U/L Alkaline Phosphatase 121 45-117 U/L Total Creatine Kinase 207 39-308 U/L Creatine Kinase MB 6.4 0.5-3.6 ng/ml Creatine Kinase MB Ratio 3.1 0-3.0 Troponin I 0.028 0-0.045 ng/ml Total Protein 6.2 6.4-8.2 gm/dl Albumin 3.1 3.4-5.0 gm/dl Lipase 104 73-393 U/L Urine Color DK YELLOW Urine Appearance CLEAR CLEAR Urine pH 5.0 4.5-7.5 Urine Specific [place] 1.027 1.000-1.030 Urine Protein 1+ NEG Urine Glucose (UA) NEG NEG Urine Ketones TRACE NEG Urine Occult Blood NEG NEG Urine Nitrite NEG NEG Urine Bilirubin NEG NEG Urine Urobilinogen NEG NEG Urine Leukocyte Esterase NEG NEG Urine WBC (Auto) 1-5 0-5 /hpf Urine RBC (Auto) 0-4 0-4 /hpf Urine Hyaline Casts (Auto) 1-5 0-5 /lpf Urine Epithelial Cells (Auto) 10-20 0-5 /lpf Urine Bacteria (Auto) NEG NEG Diagnostic Radiology CERVICAL SPINE W/O CT DOSE: 1344.94 mGy.cm CLINICAL HISTORY: 86 years-old Male with fall right neck pain. Acute neck pain status post fall pain is most pronounced on the right. COMPARISON: CT head of same day. TECHNIQUE: Multiple axial CT images of the cervical spine were obtained without contrast. A dose lowering technique was utilized adhering to the principles of ALARA. FINDINGS: There are calcifications of the nuchal ligament. Bones appear mildly demineralized. There is 3 mm retrolisthesis C4 on C5 and 2 mm anterolisthesis C6 on C7, likely secondary to long-standing facet disease. Multilevel severe facet arthropathy is noted with multiple levels demonstrating facet effusion. Severe multilevel intervertebral disc space narrowing with endplate spurring is noted. There is mild convex right curvature of the cervical spine. No acute fracture or subluxation. Degree of central canal and foraminal narrowing is better assessed by MRI. Mastoid air cells and middle ear cavities are clear. Dense atherosclerosis of the carotid bulbs bilaterally, left greater than right. Multinodular enlarged thyroid goiter. Small bilateral pleural effusions are partially imaged. IMPRESSION: 1. No acute fracture or subluxation. 2. Severe multilevel discogenic degenerative changes, endplate spurring and facet arthrosis. 3. Multinodular goiter. 4. Small bilateral pleural effusions. CHEST ONE VIEW PORTABLE HISTORY: 86 years-old Male Generalized Weakness acute generalized weakness COMPARISON: Chest radiograph 05/09/2017 TECHNIQUE: Portable AP view of the chest FINDINGS: Cardiac silhouette is again enlarged, unchanged. Atherosclerosis of the aorta. Pulmonary vascular congestion with mild interstitial coarsening suggests mild pulmonary edema. Trace bilateral pleural effusions with bibasilar opacities. No pneumothorax. Bones of the chest appear grossly intact. IMPRESSION: 1. Cardiomegaly with pulmonary vascular congestion and mild interstitial coarsening suggests mild pulmonary edema. 2. Small bilateral pleural effusions with linear subsegmental bibasilar opacities suggesting atelectasis. The above report was generated using voice recognition software. It may contain grammatical, syntax or spelling errors. Electronically signed by: Troy Calzada M.D. 07/18/2017 12:13 PM HEAD WITHOUT CONTRAST (CT) CLINICAL HISTORY: 86 years-old Male with Generalized Weakness. Acute generalized weakness with history of recent multiple falls TECHNIQUE: Multiple axial CT images of the head were obtained without contrast. A dose lowering technique was utilized adhering to the principles of ALARA. COMPARISON: CT cervical spine of same day, CT head 04/30/2015, brain MRI 05/01/2015. FINDINGS: No acute intracranial hemorrhage, midline shift, intracranial mass, hydrocephalus, territorial ischemia or abnormal extra-axial collection. Moderate brain atrophy with chronic microvascular ischemic changes. 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 The calvarium is intact. The paranasal sinuses, mastoid air cells, and middle ear cavities are clear. IMPRESSION: No acute intracranial abnormality. The above report was generated using voice recognition software. It may contain grammatical, syntax or spelling errors. Electronically signed by: Troy Calzada M.D. 07/18/2017 1:39 PM Dictated Date/Time: 07/18/2017 1:36 PM PELVIS 1 OR 2 VIEW ROUTINE HISTORY: 86 years-old Male fall 3 times last night acute pelvic pain status post recent fall COMPARISON: Pelvis bilateral hip radiographs 05/11/2017 TECHNIQUE: AP view of the pelvis FINDINGS: Mild to moderate degenerative changes of the bilateral hips. No acute fracture or subluxation. Degenerative changes are seen within the lower lumbar spine. Soft tissues are unremarkable. IMPRESSION: No acute fracture or subluxation. EKG Atrial fibrillation with premature ventricular or aberrantly conducted complexes Right bundle branch block Abnormal ECG When compared with ECG of 08-MAY-2017 21:15, T wave inversion more evident in Anterior leads QT has lengthened Confirmed by BOOGIE RINCON ([id number]) on 07/18/2017 9:53:13 PM Impression Assessment and Plan Syncopal episode and SOB upon exertion in a 86 yo male who is a poor historian despite being oriented times 3. Acute Systolic CHF admit to telemetry. Clinical symtpoms point to worsening of his CHF exacerbation despite diuretic therapy. X-ray shows fluid congestion. Exam shows cardiac asthma will restart all medications tomorrow, except PO lasix. Patient appears improved, will receive evening dose of metoprolol will continue with IV lasix BID. will replace electrolytes. Last EF 20-25% monitor Is and Os consulted cardio. A-fib rate controlled -Metoprolol as above -Continue Xarelto 15 mg PO qd Hyperthyroidism -Continue methimazole 10 mg PO qd DVT: on xarelto. Full Code Level of Care Telemetry Advanced Directives Existing Advance Directive: No Existing Living Will: No Existing Power of Addiction Treatment Counselor: No Existing Health Care Proxy: No Resuscitation Status FULL RESUSCITATION VTE Prophylaxis VTE Risk Assessment Done? Y/N: Yes Risk Level: Moderate Given or contraindicated: Other Anticoagulation (xarelto)
[2017-07-18] MEDS ORDERED: ONDANSETRON INJ 2 MG/ML 2 ML VIAL IV PRN (16:15)
[2017-07-18] MEDS ORDERED: INFLUENZA VIRUS QUAD VACCINE 0.5 ML SYR IM. ONE (16:15)
[2017-07-18] MEDS ORDERED: NITROGLYCERIN 0.4 MG SL PER TAB CHARGE SL PRN (16:15)
[2017-07-18] MEDS ORDERED: MAGNESIUM HYDROXIDE SUSP 30 ML UDC PO PRN (16:15)
[2017-07-18 17:21] VITALS: BP 134/94; PULSE 96; TEMP 36.8; O2SAT 98; Ht 185.4 cm; Wt 87.0 kg
[2017-07-18] MEDS ORDERED: PNEUMOCOCCAL ADMINISTRATION CHARGE ONE (18:00)
[2017-07-18] MEDS ORDERED: PNEUMOCOCCAL POLYSACCHARIDES 25 MCG/0.5 ML VIAL/SYR IM. ONE (18:00)
[2017-07-18] MEDS ORDERED: INFLUENZA ADMINISTRATION CHARGE ONE (18:15)
[2017-07-18] MEDS ORDERED: INFLUENZA VACCINE HIGH DOSE 65+ 0.5 ML SYR IM. ONE (18:15)
[2017-07-18] MEDS: FUROSEMIDE INJ 40 MG in SYRINGE 0 ML IV SCH (18:31)
[2017-07-18 19:29] VITALS: BP 132/69; PULSE 89; TEMP 36.8; O2SAT 95
[2017-07-18] MEDS: FERROUS SULFATE 325 MG TAB PO SCH (19:39)
[2017-07-18] MEDS: METOPROLOL TARTRATE 25 MG TAB PO SCH (19:40)
[2017-07-18] MEDS: QUETIAPINE FUMARATE 25 MG TAB PO SCH (19:40)
[2017-07-18 20:00] VITALS: O2SAT 97
[2017-07-18 23:40] VITALS: BP 113/65; PULSE 85; TEMP 37.3; O2SAT 97
[2017-07-19] VITALS (14 sets, daily range): BP systolic 99–126; BP diastolic 60–82; PULSE 74–93; TEMP 36.7–37.2; O2SAT 90–98
[2017-07-19] MEDS ORDERED: TRAMADOL HCL 50 MG TAB PO STA (03:48)
--- NOTE | 2017-07-19 03:50 | Progress Note ---
Progress Note Date of Service Jul 19, 2017. Progress Note 4 run beat of VT per RN, asymp tsh, BMP , troponin, ekg replete K if needed
[2017-07-19 04:35] LABS: CALCIUM 7.7 mg/dl (8.5-10.1); CREATININE 1.28 mg/dl (0.60-1.40); POTASSIUM 3.3 mmol/L (3.5-5.1)
[2017-07-19] MEDS ORDERED: POTASSIUM CHLORIDE 20 MEQ TABCR PO STA (06:43)
[2017-07-19] MEDS: LISINOPRIL 2.5 MG TAB PO SCH (08:19)
[2017-07-19] MEDS: RIVAROXABAN TAB 15 MG TAB PO SCH (08:19)
[2017-07-19] MEDS: SERTRALINE HCL 50 MG TAB PO SCH (08:19)
[2017-07-19] MEDS: PANTOprazole SOD 40 MG TAB PO SCH (08:20)
[2017-07-19] MEDS: METHIMAZOLE 5 MG TAB PO SCH (08:20)
[2017-07-19] MEDS: SENNA 8.6 MG TAB PO SCH (08:20)
[2017-07-19] MEDS: FERROUS SULFATE 325 MG TAB PO SCH ×2 (08:20→20:40)
[2017-07-19] MEDS: ASPIRIN 81 MG ECTAB PO SCH (08:20)
[2017-07-19] MEDS: ATORVASTATIN 20 MG TAB PO SCH (08:20)
[2017-07-19] MEDS: METOPROLOL TARTRATE 25 MG TAB PO SCH (08:20)
[2017-07-19] MEDS: FUROSEMIDE INJ 40 MG in SYRINGE 0 ML IV SCH ×2 (08:21→17:04)
[2017-07-19] MEDS ORDERED: TRAMADOL HCL 50 MG TAB PO PRN (08:45)
[2017-07-19] MEDS: POTASSIUM CHLORIDE 20 MEQ TABCR PO SCH ×2 (09:00→20:41)
[2017-07-19 10:12] LABS: HEMATOCRIT 37.8 % (42-52); HEMOGLOBIN 11.6 g/dL (14.0-18.0); MEAN CORPUSCULAR HEMOGLOBIN 25.8 pg (25-34); MEAN CORPUSCULAR HGB CONC 30.7 g/dl (32-36); MEAN PLATELET VOLUME 9.7 fL (7.4-10.4); PLATELET COUNT 172 K/uL (130-400); RED CELL DISTRIBUTION WIDTH CV 22.3 % (11.5-14.5); RED CELL DISTRIBUTION WIDTH SD 70.1 fL (36.4-46.3); WHITE BLOOD COUNT 7.13 K/uL (4.8-10.8)
[2017-07-19] MEDS ORDERED: SODIUM CHLORIDE 0.65% NA SOLN 45 ML (OCEAN) NAE ONE (10:12)
--- NOTE | 2017-07-19 10:43 | Hospitalist Progress Note ---
Hospitalist Progress Note Date of Service Jul 19, 2017. (Cely Ivey ., PA-C) Subjective Pt evaluation today including: conversation w/ patient, conversation w/ family (daughter at bedside), physical exam, chart review, lab review, conversation w/ communication consultant (spoke with Dr. Garcia), review of inpatient medication list Pain: None PO Intake: Tolerating PO diet Voiding: putnam catheter in place (draining clear urine) The patient reports feeling better. He states that his shortness of breath feels improved, but he still does have some mild SOB. He does complain of wheezing. He denies any chest pain currently. He states that he did not have much appetite prior to arrival, but this is slowly improving and he was able to eat his breakfast. The patient denies fevers, chills, sweats, chest pain, palpitations, claudication, cough, nausea, vomiting, abdominal pain, dysuria, hematuria, urinary retention, paralysis, weakness, numbness and tingling. Additional Comments: See HPI for pertinent positives and negatives. All other systems reviewed and negative. (Cely Ivey ., PA-C) Objective Vital Signs Date Time Temp Pulse Resp B/P (MAP) Pulse Ox O2 Delivery O2 Flow Rate FiO2 07/19/17 08:00 98 Nasal Cannula 3.0 07/19/17 07:49 37.0 84 20 126/75 (92) 94 Nasal Cannula 3.5 07/19/17 04:00 98 Nasal Cannula 3.0 07/19/17 03:50 37.0 89 23 121/67 (85) 94 Nasal Cannula 3.5 07/19/17 00:00 97 Nasal Cannula 3.0 07/18/17 23:40 37.3 85 22 113/65 (81) 97 Nasal Cannula 3.5 07/18/17 20:00 97 Nasal Cannula 2.0 07/18/17 19:29 36.8 89 16 132/69 (90) 95 Nasal Cannula 3.0 07/18/17 17:21 36.8 96 24 134/94 98 Nasal Cannula 3.0 07/18/17 16:14 90 20 126/90 96 Nasal Cannula 3.0 07/18/17 13:21 98 20 145/96 93 Room Air 07/18/17 10:51 85 07/18/17 10:36 37.5 86 27 121/83 96 Room Air (Cely Ivey ., PA-C) Physical Exam Notes: General appearance: Well-developed, well-nourished, no apparent distress Head: Normocephalic, atraumatic Eyes: Normal inspection, PERRL, EOMI ENT: Normal ENT inspection, hearing grossly normal, pharynx normal Neck: Supple, no JVD, trachea midline Respiratory/Chest: +Wheezing throughout, decreased breath sounds. 98% on 3L NC. No respiratory distress Cardiovascular: +Irregularly irregular, rate controlled. Systolic murmur. No gallop Abdomen/GI: Normal bowel sounds, non-tender, soft Extremities/Musculoskeletal: +1+ pitting edema. Normal inspection, no calf tenderness Neurological/Psych: Alert, normal mood/affect, oriented x 3 Skin: Normal color, warm/dry, no rash (Cely Ivey ., PA-C) Laboratory Results Last 24 Hours Test 07/18/17 12:27 07/18/17 13:30 07/19/17 03:56 07/19/17 09:32 White Blood Count 7.55 K/uL 7.13 K/uL Red Blood Count 4.77 M/uL 4.50 M/uL Hemoglobin 12.2 g/dL 11.6 g/dL Hematocrit 39.9 % 37.8 % Mean Corpuscular Volume 83.6 fL 84.0 fL Mean Corpuscular Hemoglobin 25.6 pg 25.8 pg Mean Corpuscular Hemoglobin Concent 30.6 g/dl 30.7 g/dl Platelet Count 186 K/uL 172 K/uL Mean Platelet Volume 9.6 fL 9.7 fL Neutrophils (%) (Auto) 51.8 % Lymphocytes (%) (Auto) 28.1 % Monocytes (%) (Auto) 14.6 % Eosinophils (%) (Auto) 4.8 % Basophils (%) (Auto) 0.4 % Neutrophils # (Auto) 3.92 K/uL Lymphocytes # (Auto) 2.12 K/uL Monocytes # (Auto) 1.10 K/uL Eosinophils # (Auto) 0.36 K/uL Basophils # (Auto) 0.03 K/uL RDW Standard Deviation 71.4 fL 70.1 fL RDW Coefficient of Variation 22.7 % 22.3 % Immature Granulocyte % (Auto) 0.3 % Immature Granulocyte # (Auto) 0.02 K/uL Nucleated RBC Absolute Count (auto) 0.00 K/uL Nucleated Red Blood Cells % 0.0 % Anisocytosis PRESENT Ovalocytes 1+ Schistocytes 1+ Prothrombin Time 13.1 SECONDS Prothromb Time International Ratio 1.3 Activated Partial Thromboplast Time 30.1 SECONDS Partial Thromboplastin Ratio 1.2 Sodium Level 145 mmol/L 142 mmol/L Potassium Level 3.6 mmol/L 3.3 mmol/L Chloride Level 109 mmol/L 106 mmol/L Carbon Dioxide Level 30 mmol/L 31 mmol/L Anion Gap 6.0 mmol/L 5.0 mmol/L Blood Urea Nitrogen 17 mg/dl 14 mg/dl Creatinine 1.39 mg/dl 1.28 mg/dl Est Creatinine Clear Calc Drug Dose 44.7 ml/min 48.5 ml/min Estimated GFR () 53.6 59.2 Estimated GFR (Non- 46.2 51.1 BUN/Creatinine Ratio 12.0 11.1 Random Glucose 74 mg/dl 104 mg/dl Calcium Level 8.4 mg/dl 7.7 mg/dl Phosphorus Level 3.5 mg/dl Magnesium Level 2.0 mg/dl 2.0 mg/dl Total Bilirubin 0.9 mg/dl Direct Bilirubin 0.4 mg/dl Aspartate Amino Transf (AST/SGOT) 27 U/L Alanine Aminotransferase (ALT/SGPT) 15 U/L Alkaline Phosphatase 121 U/L Total Creatine Kinase 207 U/L Creatine Kinase MB 6.4 ng/ml Creatine Kinase MB Ratio 3.1 Troponin I 0.028 ng/ml 0.029 ng/ml Total Protein 6.2 gm/dl Albumin 3.1 gm/dl Lipase 104 U/L Urine Color DK YELLOW Urine Appearance CLEAR Urine pH 5.0 Urine Specific [place] 1.027 Urine Protein 1+ Urine Glucose (UA) NEG Urine Ketones TRACE Urine Occult Blood NEG Urine Nitrite NEG Urine Bilirubin NEG Urine Urobilinogen NEG Urine Leukocyte Esterase NEG Urine WBC (Auto) 1-5 /hpf Urine RBC (Auto) 0-4 /hpf Urine Hyaline Casts (Auto) 1-5 /lpf Urine Epithelial Cells (Auto) 10-20 /lpf Urine Bacteria (Auto) NEG Thyroid Stimulating Hormone (TSH) 4.680 uIu/ml (Cely Ivey ., DONNELLC) Assessment and Plan 86 y/o male with a history of a-fib, chronic systolic CHF, HLD, CKD stage III, hyperthyroidism, depression/anxiety, and GERD who presents to the ED on 07/18 with acute worsening of shortness of breath. Acute on chronic systolic CHF--improving -Admit to telemetry. Pt in a-fib with HR in 80s overnight with some 4 beat runs of PVCs -Echo from 2016 shows LVEF of 25-30%. Grade I diastolic dysfunction. Moderate global hypokinesis of left ventricle. -Pt still hypervolemic, will continue Lasix 40 mg IV BID -UO 4000 cc, net balance -3800 on 07/18 -Continue lisinopril 2.5 mg PO qd -Switch metoprolol tartrate 25 mg PO BID to metoprolol succinate 50 mg PO qd per cardio recs -Continue daily weights, monitor I's & O's -Cardiology consulted, appreciate recs: Spoke with Dr. Garcia. Continue diuresis. Pt states he wants to switch to [facility]. Recommend changing metoprolol tartrate to succinate. Will check orthostatic BPs before increasing dose. Pt is not interested in defibrillator at this time. 4 beat runs PVCs, hypokalemia--asymptomatic -EKG no acute ischemic changes, repeat trop negative -Potassium 3.3 on 07/19, given KCl 40 mEq PO x 1. Start KCl 20 mEq PO BID A-fib on chronic anticoagulation--stable, rate controlled -Metoprolol as above -Continue Xarelto 15 mg PO qd (renal dosing) HLD--stable -Continue Lipitor 40 mg PO qd CKD stage III--stable -Creatinine at baseline, stable Hyperthyroidism -TSH 4.68 on 07/19. Spoke with Dr. Flannery regarding management of his methimazole given elevated TSH. He did not recommend changing methimazole at this time. -Continue methimazole 10 mg PO qd Depression/anxiety -Continue Seroquel 50 mg PO hs and Zoloft 50 gm PO qd Dispo -3 falls recently at home, lives alone -Case management, PT/OT evaluate and treat (Cely Ivey ., ANGÉLICA) Attending Attestation: Pt seen/examined, chart reviewed, care plan d/w TOM Ivey. I agree w/ the tobias components of her documentation. Pt with improved dyspnea, cough, & wheezing. Main complaint is that of severe left hip pain following his falls yesterday at home. Reports he was in [facility] recently. Tele - a. fib. VSS no fever gen - NAD, mild confusion, in pain when he moves on bed (due to left hip) neck - JVD - moderate, even at sitting 90 degrees upright heart - irregular, s1, s2, s3, holosystolic murmur LLSB (2-08/31), HR<100 lungs - crackles bases with end-exp wheezes b/l abd - soft, NT ext - left hip with large hematoma laterally; tender to touch over same region; with external/internal rotation left hip he has considerable pain; 1-2+ edema b/ l back - no tenderness to palpation over t-spine, l-spine Cr 1.2 K 3.3 TSH 4.5 A/P: acute/chronic systolic/diastolic CHF - marked diuresis since admission but still hypervolemic; appreciate cards consult & recs; agree with change to long- acting BB; cont lasix left hip pain - although x-rays are negative will obtain CT left hip to r/o fracture; ice packs x 1-2 days, then heat thereafter due to hematoma mild cognitive impairment vs encephalopathy hypokalemia - replace hyperthyroidism - methimazole ambulatory dysfunction with falls - PT, OT evals CKD stage 2 Akash KNAPP MD (Tex Knapp MD)
--- NOTE | 2017-07-19 14:12 | CARDIOLOGY CONSULTATION ---
DATE OF CONSULTATION: 07/19/2017 TIME: 13:03 p.m. CONSULTING PHYSICIAN: Dr. Flood. REASON FOR CONSULTATION: Heart failure. HISTORY OF PRESENT ILLNESS: Mr. Smiley is a pleasant 86-year-old gentleman with a history significant for nonischemic cardiomyopathy, mitral valve endocarditis, hypertension, systolic CHF, atrial fibrillation, non-Hodgkin's lymphoma, and valvular heart disease. He typically follows with Dr. Chahal for his cardiology issues as an outpatient, but has not followed up recently. He has accommodated at his bedside by his daughter, Sarah. She helps with obtaining some of his history as he is a poor historian. In April, he apparently was having issues falling down and ended up being intubated due to heart failure. He has returned to [facility] on 07/18/2017 with a chief complaint of falling. He had fallen 3 times that day. Before the second fall, he developed some form of left-sided chest discomfort that did not radiate and was described as a sharp or stabbing sensation. There was no specific trigger and no alleviating factor. He then fell again and then later on fell at third time. He denies any type of syncope throughout these falls. He admits that he has had syncope in the past, several months ago, estimating February nearly per day. He also recalls that he has had chest pain on and off, but cannot give any further details. When asked how long the chest pain lasts, he also was not sure, but estimates that it was probably less than 20 minutes for each episode. 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 His daughter reports that he had the infection, possibly including one of his heart valves in the past. Records were reviewed and in May of 2013, he had a transesophageal echo, which was interpreted as posterior mitral valve leaflet endocarditis with moderate MR and mild AI. He was treated with antibiotics per her recollection. She also states that he underwent a cardiac catheterization in [place] in 2017 and was told that there was no significant CAD. She was under the understanding that his cardiomyopathy was secondary to valvular heart disease. He admits to orthopnea, PND, palpitations, chronic edema and most recently has noted that his scrotum has began to swell. He lives a sedentary life. He has shortness of breath at rest, but also with dyspnea with exertion, which was described as mild and chronic. He feels much better since admission after he has been diuresed and continues to diurese. For his falls, he states that when he stands he gets very lightheaded and sometimes he thinks he may fall if he does not sit down quickly. Otherwise, he describes sliding out of his bed on to the floor. He admits to maintaining a low sodium diet. He reads labels. He also weighs himself daily. He has gained weight recently. Home health aide reportedly mentioned to his daughter that he had recently gained 7 pounds. He denies melena, hematochezia, hematuria, or other bleeding. REVIEW OF SYSTEMS: As above and review of systems otherwise negative/unremarkable other than his pain in his hip and buttocks following his fall. PAST MEDICAL HISTORY: 1. Mitral valve endocarditis on 06/19/2013 diagnosed with ANDREW. 2. Moderate mitral regurgitation. 3. Aortic regurgitation. 4. Nonischemic cardiomyopathy per history. 5. Systolic CHF. 6. Atrial fibrillation. 7. Hypertension. 8. Non-Hodgkin's lymphoma. 9. Nephrolithiasis. CURRENT MEDICATIONS: Include metoprolol tartrate 25 mg twice daily, methimazole 10 mg daily, lisinopril 2.5 mg daily, Lasix 40 mg IV b.i.d., atorvastatin 40 mg daily, aspirin 81 mg daily, Protonix 40 mg daily, potassium chloride 20 mEq p.o. b.i.d., Seroquel 50 mg at bedtime, Xarelto 15 mg daily, and Zoloft 50 mg daily. ALLERGIES: INCLUDE IV CONTRAST AND SULFA ANTIBIOTICS. HOME MEDICATIONS: Include Lasix 40 mg p.o. daily, lisinopril 2.5 mg daily, metoprolol tartrate 25 mg p.o. b.i.d., and Xarelto 15 mg daily. SOCIAL HISTORY: Denies smoking or alcohol. He is a . He lives alone. His daughter, Sarah, is present at the bedside. FAMILY HISTORY: Grandmother had a myocardial infarction, but at age of 90. He had a brother that at age of 1 with congenital heart disease. PHYSICAL EXAMINATION: VITAL SIGNS: Temperature 37.2 degrees, heart rate 93 beats per minute, respiratory rate 22, blood pressure 112/79 mmHg, and oxygen saturation is 98% on 3 liters per nasal cannula. I's and O's negative 3.8 liters yesterday. Weight is 90.5 kg. GENERAL: No acute distress. He is alert. HEENT: Anicteric sclerae. NECK: Elevated JVD penitentiary to the mandible. Hepatojugular reflux noted. No carotid bruits. Normal carotid upstrokes bilaterally. CARDIAC EXAMINATION: PMI was nonpalpable. There was no ventricular heave. Irregularly irregular. Normal S1 and S2. 2/6 holosystolic murmur. No rubs or gallops. LUNGS: Decreased breath sounds throughout, but otherwise clear. ABDOMEN: Soft, nontender, and nondistended. Normoactive bowel sounds. No bruits noted. EXTREMITIES: 1+ bilateral lower extremity edema in the dependent areas, extending to the knees bilaterally. No cyanosis. 2+ radial pulses bilaterally. 2+ dorsalis pedis pulses bilaterally. No cyanosis. PSYCHIATRIC: Affect appears appropriate. ECG on presentation, 07/18/2017 at 10:50 a.m. personally reviewed. Atrial fibrillation with PVCs or aberrantly conducted complexes with a right bundle branch block. 92 beats per minute. Repeat ECG on 07/19/2017 at 04:53 a.m. demonstrated atrial fibrillation with PVCs or aberrantly conducted complexes at 90 beats per minute. Right bundle branch block. Telemetry personally reviewed. Atrial fibrillation. There was also a 4-beat run of wide complex tachycardia, possibly ventricular tachycardia. Echocardiogram on 05/06/2017 report reviewed. Mildly dilated left ventricle with significantly reduced systolic function. EF 25%-30%. Global hypokinesis. Type 1 diastolic dysfunction. Mildly to moderately dilated right ventricle. Mild biatrial dilation. Moderate MR. Moderate TR. RVSP 30-40. Mild to moderate AI. This is as per report by Dr. Leone. LABORATORY DATA: White blood cell count is 7.13, hemoglobin 11.6, and platelets 172. Sodium 142, potassium 3.3, BUN 14, and creatinine 1.28. TSH 4.68. Troponin 0.029. AST 27 and ALT 15. ASSESSMENT AND PLAN: 1. Acute on chronic systolic congestive heart failure: He appears to be diuresing quite well. Monitor renal function and electrolytes carefully. Continue low sodium diet, daily weights and strict I's and O's. He will likely require higher dose of diuretic upon discharge and would recommend close followup upon discharge. Entresto could be used in place of lisinopril if it is financially possible; however, would have to monitor closely for orthostatic symptoms. For now, we will continue with lisinopril. This decision can be made by his primary flight operations engineer. 2. Nonischemic cardiomyopathy: Cardiac catheterization report from [place] will be requested. It is not clear if he had a secondary workup done in the past. If not, could consider further evaluation for sarcoidosis, amyloidosis or other possible etiology. Continue lisinopril at current dose for now. Would recommend metoprolol succinate in place of metoprolol tartrate. If blood pressure and positional lightheadedness allow, could titrate these medications over time, but will not do so at this time given the fact that he has been following with lightheadedness when changing positions. We did discuss indications for ICD and he was very clear to state that he is not interested in invasive procedures and prefers only medical therapy. 3. Atrial fibrillation: He is well rate controlled. Continue beta josefina, but change to metoprolol succinate formulation as noted above. He is on anticoagulation for stroke risk reduction as outlined by his primary flight operations engineer. 4. Mitral valve endocarditis: He had endocarditis in 2013 based on transesophageal echo findings. Recommend SBE prophylaxis for any dental procedures lifelong. 5. Mitral and aortic regurgitation: Nonsevere regurgitant lesions for his aortic, mitral and tricuspid valve. They should be followed over time; however, he is not interested in any type of surgical procedures if they should worsen and states that he has declined this in the past. 6. Hypertension: Blood pressure well controlled. No changes made at this time. 7. Lightheadedness with falls: Concerning for orthostatic symptoms. Orthostatic vital signs requested at this time. This may inhibit titration of his heart failure/cardiomyopathy meds. DISPOSITION: Cardiology will continue to follow. He has requested followup as well with [facility]. He requests to be seen in the [place] office. The patient's care has been discussed with Cely Ivey with the primary hospitalist service. Highly complex medical issues.
--- NOTE | 2017-07-19 18:35 | DIAGNOSTIC IMAGING REPORT ---
L HIP-LOWER EXTREMITY WITHOUT HISTORY: 86 years-old Male fall, trauma to left hip, eval for fracture acute left hip pain status post fall. COMPARISON: Pelvis radiograph 07/18/2017 TECHNIQUE: Multiple axial CT images of the left hip were obtained without IV contrast. Coronal and sagittal reformatted images were obtained from the axial data set and were submitted for review. A dose lowering technique was used consistent with the principals of AQUILINO. FINDINGS: Degenerative changes are seen within the pubic symphysis and left SI joint. Moderate degenerative changes of the left femoral acetabular joint. Subcortical cystic changes are present within the acetabulum. No acute fracture or subluxation is identified. Imaged left hemipelvis appears intact. Atherosclerotic vascular disease. There is a 1.7 x 4.2 x 6.7 cm hematoma within the deep subcutaneous tissues posterior lateral to the left greater trochanter. Moderate associated subcutaneous edema. No large intramuscular hematoma identified. Root catheter is noted within a collapsed urinary bladder. Bladder wall thickening is noted with mild pelvic ascites. Colonic diverticulosis partially imaged. Prostamegaly. IMPRESSION: 1. Moderate degenerative changes about the left hip without acute fracture or subluxation. 2. 1.7 x 4.2 x 6.7 cm hematoma involves the deep subcutaneous tissues posterior lateral to the left greater trochanter. No large intramuscular hematoma identified. 3. Prostamegaly with Root catheter in a collapsed urinary bladder. 4. Colonic diverticulosis. 5. Mild pelvic ascites. The above report was generated using voice recognition software. It may contain grammatical, syntax or spelling errors. Electronically signed by: Troy Calzada M.D. 07/19/2017 6:33 PM Dictated Date/Time: 07/19/2017 6:28 PM
[2017-07-19] MEDS: HYDROCODONE/ACETAMOPHEN 5/325MG TAB PO PRN (18:42)
[2017-07-19] MEDS: QUETIAPINE FUMARATE 25 MG TAB PO SCH (20:43)
[2017-07-20] VITALS (11 sets, daily range): BP systolic 92–121; BP diastolic 60–84; PULSE 78–94; TEMP 36.3–37.3; O2SAT 91–98
[2017-07-20] MEDS: HYDROCODONE/ACETAMOPHEN 5/325MG TAB PO PRN (04:26)
[2017-07-20 07:08] LABS: HEMATOCRIT 38.3 % (42-52); HEMOGLOBIN 11.5 g/dL (14.0-18.0); MEAN CELL VOLUME 84.4 fL (80-100); MEAN CORPUSCULAR HEMOGLOBIN 25.3 pg (25-34); PLATELET COUNT 176 K/uL (130-400); RED CELL DISTRIBUTION WIDTH SD 69.8 fL (36.4-46.3); WHITE BLOOD COUNT 6.36 K/uL (4.8-10.8)
[2017-07-20 07:42] LABS: CALCIUM 8.2 mg/dl (8.5-10.1); CREATININE 1.16 mg/dl (0.60-1.40); POTASSIUM 4.1 mmol/L (3.5-5.1)
[2017-07-20] MEDS: PANTOprazole SOD 40 MG TAB PO SCH (08:41)
[2017-07-20] MEDS: SERTRALINE HCL 50 MG TAB PO SCH (08:41)
[2017-07-20] MEDS: LISINOPRIL 2.5 MG TAB PO SCH (08:41)
[2017-07-20] MEDS: RIVAROXABAN TAB 15 MG TAB PO SCH (08:41)
[2017-07-20] MEDS: METHIMAZOLE 5 MG TAB PO SCH (08:41)
[2017-07-20] MEDS: ATORVASTATIN 20 MG TAB PO SCH (08:41)
[2017-07-20] MEDS: METOPROLOL SUCC 50MG EXT REL TAB PO SCH (08:41)
[2017-07-20] MEDS: ASPIRIN 81 MG ECTAB PO SCH (08:42)
[2017-07-20] MEDS: SODIUM CHLORIDE 0.65% NA SOLN 45 ML (OCEAN) NAE SCH (08:42)
[2017-07-20] MEDS: FERROUS SULFATE 325 MG TAB PO SCH ×2 (08:42→21:01)
[2017-07-20] MEDS: FUROSEMIDE INJ 40 MG in SYRINGE 0 ML IV SCH ×2 (08:42→17:04)
[2017-07-20] MEDS: POTASSIUM CHLORIDE 20 MEQ TABCR PO SCH ×2 (08:42→21:02)
[2017-07-20] MEDS: SENNA 8.6 MG TAB PO SCH (08:42)
--- NOTE | 2017-07-20 14:19 | CARDIOLOGY PROGRESS NOTE ---
DATE: 07/20/2017 SUBJECTIVE: Mr. Smiley is resting comfortably in the bedside chair without complaints of chest pain or dyspnea. OBJECTIVE: VITAL SIGNS: Blood pressure 105/66 with an irregular pulse of 78. Respiratory rate is 16. The patient is afebrile at 37.3 degrees Celsius. Saturations 95% on 3 liters nasal cannula. NECK: Supple with full carotid upstrokes. There are no carotid bruits. Jugular venous pressure is flat at 90 degrees. There is no thyromegaly. CARDIOVASCULAR: Reveals an irregularly irregular rhythm with distant heart sounds. No obvious murmurs. No S3. LUNGS: Note decreased breath sounds at the bases but no rales, rhonchi, or wheezes. ABDOMEN: Soft without bruits. EXTREMITIES: Reveal intact radial artery pulses bilaterally. Trace pretibial edema is noted. DATA: CBC notes hemoglobin 11.5, hematocrit 38.3, white count 6.3, platelet count 176,000. Electrolytes note a sodium of 142, potassium 4.1, chloride 104, bicarb 34, BUN 70, creatinine 1.16, glucose 88. equipment monitor phototypesetting notes atrial fibrillation with a controlled ventricular response. IMPRESSION AND PLAN: 1. Acute on chronic systolic congestive heart failure -- the patient diuresing well with twice daily intravenous furosemide. Would continue diuresis until BUN and/or creatinine increase. 2. Nonischemic cardiomyopathy -- ejection fraction of 25-30%. The patient refuses implantation of a defibrillator. 3. History of mitral valve. SBE -- 2012. 4. Permanent atrial fibrillation. 5. Moderate mitral regurgitation. 6. Mild aortic insufficiency.
[2017-07-20] MEDS: QUETIAPINE FUMARATE 25 MG TAB PO SCH (21:03)
[2017-07-21] VITALS (8 sets, daily range): BP systolic 97–122; BP diastolic 61–78; PULSE 77–85; TEMP 36.6–37; O2SAT 91–98
--- NOTE | 2017-07-21 01:02 | Progress Note ---
Subjective Date of Service: Jul 20, 2017. Subjective Pt evaluation today including: conversation w/ patient, physical exam, chart review, lab review, conversation w/ medical consultant (cardiology) Pain: left hip PO Intake: improved Voiding: putnam catheter in place tele stable overnight he feels much better today with less dyspnea he is hopeful he can return home after d/c; not excited about attending rehab again using ice packs on left hip admits to poor diet at home, eating lunch meats and pigs feet/legs Problem List Medical Problems: (1) CHF (congestive heart failure) Status: Acute (2) Pulmonary edema Status: Acute (3) Scrotal edema Status: Acute (4) Syncopal episodes Status: Acute (5) Urinary retention Status: Acute Review of Systems Constitutional: No fever Cardiac: No chest pain Abdomen: No pain Objective Vital Signs Date Time Temp Pulse Resp B/P (MAP) Pulse Ox O2 Delivery O2 Flow Rate FiO2 07/20/17 20:00 96 Nasal Cannula 3.0 07/20/17 19:30 36.7 82 18 119/77 (91) 96 Nasal Cannula 4.0 07/20/17 16:00 96 Nasal Cannula 3.0 07/20/17 15:17 37.0 82 20 111/70 (84) 96 Nasal Cannula 4.0 07/20/17 12:24 37.3 78 16 105/66 (79) 95 Nasal Cannula 07/20/17 12:00 98 Nasal Cannula 3.0 07/20/17 08:24 36.3 94 18 109/84 (92) 91 Nasal Cannula 07/20/17 08:00 98 Nasal Cannula 3.0 07/20/17 04:08 36.9 88 21 99/60 (73) 91 Nasal Cannula 4.0 07/20/17 04:00 Room Air 07/19/17 23:59 Room Air 07/19/17 23:38 82 107/63 (78) 07/19/17 23:36 90 106/70 (82) 07/19/17 23:33 36.7 74 22 101/60 (74) 93 Nasal Cannula 3.0 Physical Exam General Appearance: no apparent distress ENT: pharynx normal Neck: no JVD (sitting up at 90 degrees) Respiratory/Chest: no respiratory distress, no accessory muscle use, + rales ( bases - markedly improved), + wheezing (scant end-exp) Cardiovascular: no gallop, + irregularly irregular Abdomen: normal bowel sounds, non tender, soft, no organomegaly, + pertinent finding (scrotal edema improved) Extremities: + pedal edema (much improved), + pertinent finding (left hip hematoma largely unchanged) Skin: + pertinent finding (left hip hematoma ) Laboratory Results Last 24 Hours Test 07/20/17 06:38 White Blood Count 6.36 K/uL Red Blood Count 4.54 M/uL Hemoglobin 11.5 g/dL Hematocrit 38.3 % Mean Corpuscular Volume 84.4 fL Mean Corpuscular Hemoglobin 25.3 pg Mean Corpuscular Hemoglobin Concent 30.0 g/dl RDW Standard Deviation 69.8 fL RDW Coefficient of Variation 22.0 % Platelet Count 176 K/uL Mean Platelet Volume 10.0 fL Sodium Level 142 mmol/L Potassium Level 4.1 mmol/L Chloride Level 104 mmol/L Carbon Dioxide Level 34 mmol/L Anion Gap 4.0 mmol/L Blood Urea Nitrogen 17 mg/dl Creatinine 1.16 mg/dl Est Creatinine Clear Calc Drug Dose 53.6 ml/min Estimated GFR () 66.7 Estimated GFR (Non- 57.5 BUN/Creatinine Ratio 14.9 Random Glucose 88 mg/dl Calcium Level 8.2 mg/dl Magnesium Level 1.9 mg/dl Assessment and Plan 86yo male - 1. acute/chronic systolic/diastolic CHF - improved with marked diuresis. Creatinine improving. Continue IV lasix as is; labs in am; cont BB and TWIN. Appreciate cardiology consult. 2. left hip contusion/hematoma 2nd to fall in the setting of syncope - CT hip w /o fracture. Cont ice packs another day; then transition to heat tomorrow. Hematoma looks about the same on exam today. CBC in am for stability. Cont anticoagulation cautiously. 3. hypokalemia - resolved. 4. hyperthyroidism - methimazole. TSH is acceptable. 5. ambulatory dysfunction with falls - PT, OT evals - needs rehab; unsafe to live independently at this time. 6. syncope - 2nd to orthostasis? No recurrences since admission. 7. CKD stage 2 - creatinine stable. 8. a fib - rates controlled with BB; cont xarelto. 9. h/o non-Hodgkin's lymphoma - CBC acceptable 10. h/o endocarditis - noted 11. encephalopathy vs baseline cognitive impairment - would need to speak with family to ascertain his typical baseline. 12. known AAA - no symptoms at this time. Records indicate 5.5cm in size. 13. ?COPD - per records, but no symptoms at this time and does not use inhalers. dispo - as of today patient needs rehab left message for daughter 07/20/17 leave [facility] due to improved yet persistent scrotal edema Continued [facility] stay due to: ambulation difficulties, multiple IV medications needed, home environment unsafe for pt Discharge planning: rehab hospital (vs SNF for rehab)
[2017-07-21] MEDS: FUROSEMIDE INJ 40 MG in SYRINGE 0 ML IV SCH ×2 (07:41→16:36)
[2017-07-21] MEDS: RIVAROXABAN TAB 15 MG TAB PO SCH (07:41)
[2017-07-21] MEDS: SERTRALINE HCL 50 MG TAB PO SCH (07:41)
[2017-07-21] MEDS: LISINOPRIL 2.5 MG TAB PO SCH (07:41)
[2017-07-21] MEDS: METOPROLOL SUCC 50MG EXT REL TAB PO SCH (07:41)
[2017-07-21 07:42] LABS: HEMATOCRIT 38.6 % (42-52); HEMOGLOBIN 11.8 g/dL (14.0-18.0); MEAN CELL VOLUME 84.1 fL (80-100); MEAN CORPUSCULAR HEMOGLOBIN 25.7 pg (25-34); MEAN CORPUSCULAR HGB CONC 30.6 g/dl (32-36); PLATELET COUNT 174 K/uL (130-400); RED CELL DISTRIBUTION WIDTH CV 21.6 % (11.5-14.5); RED CELL DISTRIBUTION WIDTH SD 67.8 fL (36.4-46.3); WHITE BLOOD COUNT 6.05 K/uL (4.8-10.8)
[2017-07-21] MEDS: ATORVASTATIN 20 MG TAB PO SCH (07:42)
[2017-07-21] MEDS: METHIMAZOLE 5 MG TAB PO SCH (07:42)
[2017-07-21] MEDS: PANTOprazole SOD 40 MG TAB PO SCH (07:42)
[2017-07-21] MEDS: SENNA 8.6 MG TAB PO SCH (07:42)
[2017-07-21] MEDS: FERROUS SULFATE 325 MG TAB PO SCH ×2 (07:42→19:48)
[2017-07-21] MEDS: ASPIRIN 81 MG ECTAB PO SCH (07:42)
[2017-07-21] MEDS: POTASSIUM CHLORIDE 20 MEQ TABCR PO SCH ×2 (07:42→19:48)
[2017-07-21] MEDS: SODIUM CHLORIDE 0.65% NA SOLN 45 ML (OCEAN) NAE SCH (07:42)
[2017-07-21 08:25] LABS: CALCIUM 8.3 mg/dl (8.5-10.1); CREATININE 1.05 mg/dl (0.60-1.40); POTASSIUM 3.9 mmol/L (3.5-5.1)
--- NOTE | 2017-07-21 09:38 | CARDIOLOGY PROGRESS NOTE ---
DATE: 07/21/2017 SUBJECTIVE: Mr. Smiley is resting comfortably in the bedside chair without complaints of chest pain. His dyspnea has improved dramatically. OBJECTIVE: VITAL SIGNS: Blood pressure 120/65 with an irregular pulse of 85. Respiratory rate is 20. The patient is afebrile at 36.7 degrees Celsius. Saturations 98% on 3 liters nasal cannula. NECK: Supple with full carotid upstrokes. No obvious bruits. Jugular venous pressure is flat at 90 degrees. There is no thyromegaly. CARDIOVASCULAR: Reveals an irregularly irregular rhythm with distant heart sounds. No obvious murmurs. No S3. LUNGS: Clear without rales, rhonchi, or wheezes. ABDOMEN: Soft without bruits. EXTREMITIES: Reveal intact radial artery pulses bilaterally. No pretibial edema. LABORATORY DATA: CBC notes a hemoglobin of 11.8, hematocrit 30.6, white count 6.05, platelet count 174,000. Electrolytes note a sodium of 140, potassium 3.9, chloride 102, bicarbonate 31, BUN 20, creatinine 1.05, glucose 97. engine monitor notes atrial fibrillation with a controlled ventricular response. IMPRESSION AND PLAN: 1. Acute on chronic systolic congestive heart failure -- patient continues aggressive diuresis. Remains on intravenous furosemide at 40 mg b.i.d. Would continue current medical regimen. 2. Nonischemic cardiomyopathy -- ejection fraction 25-30%. The patient refuses implantable defibrillator. 3. History of mitral valve SBE -- 2012. 4. Permanent atrial fibrillation. 5. Moderate mitral regurgitation. 6. Mild aortic insufficiency.
--- NOTE | 2017-07-21 13:47 | Hospitalist Progress Note ---
Hospitalist Progress Note Date of Service Jul 21, 2017. (Cely Ivey ., DONNELLC) Subjective Pt evaluation today including: conversation w/ patient, physical exam, chart review, lab review, review of inpatient medication list Pain: None PO Intake: Tolerating PO diet Voiding: putnam catheter in place Patient reports feeling well. He states that his shortness of breath continues to improve and he denies any currently. He still complains of a productive cough with yellow/green sputum but states that this is improving as well. He denies wheezing today. He is otherwise feeling well and denies complaints. The patient denies fevers, chills, sweats, chest pain, palpitations, claudication, wheezing, shortness of breath, nausea, vomiting, abdominal pain, dysuria, hematuria, urinary retention, paralysis, weakness, numbness and tingling. Additional Comments: See HPI for pertinent positives and negatives. All other systems reviewed and negative. (Cely Ivey ., DONNELLC) Objective Vital Signs Date Time Temp Pulse Resp B/P (MAP) Pulse Ox O2 Delivery O2 Flow Rate FiO2 07/21/17 12:00 98 Nasal Cannula 3.0 07/21/17 11:43 37.0 82 20 97/61 (73) 92 Nasal Cannula 3.0 07/21/17 08:00 98 Nasal Cannula 3.0 07/21/17 07:25 36.7 85 22 119/64 (82) 91 Nasal Cannula 4.0 07/21/17 04:00 36.6 77 21 104/62 (76) 93 Nasal Cannula 3.5 07/21/17 04:00 Nasal Cannula 07/20/17 23:59 Nasal Cannula 07/20/17 23:07 37.0 80 18 92/61 (71) 91 Nasal Cannula 4.0 07/20/17 20:00 96 Nasal Cannula 3.0 07/20/17 19:30 36.7 82 18 119/77 (91) 96 Nasal Cannula 4.0 07/20/17 16:00 96 Nasal Cannula 3.0 07/20/17 15:17 37.0 82 20 111/70 (84) 96 Nasal Cannula 4.0 (Cely Ivey ., DONNELLC) Physical Exam Notes: General appearance: Well-developed, well-nourished, no apparent distress Head: Normocephalic, atraumatic Eyes: Normal inspection, PERRL, EOMI ENT: Normal ENT inspection, hearing grossly normal, pharynx normal Neck: Supple, no JVD, trachea midline Respiratory/Chest: +Mild crackles in bases. 98% on 3L NC. Normal breath sounds, no respiratory distress Cardiovascular: +Irregularly irregular, rate controlled. Systolic murmur. No gallop Abdomen/GI: Normal bowel sounds, non-tender, soft Extremities/Musculoskeletal: +Trace pitting edema. Normal inspection, no calf tenderness Neurological/Psych: Alert, normal mood/affect, oriented x 3 Skin: Normal color, warm/dry, no rash (Cely Ivey ., PA-C) Laboratory Results Last 24 Hours Test 07/21/17 07:18 White Blood Count 6.05 K/uL Red Blood Count 4.59 M/uL Hemoglobin 11.8 g/dL Hematocrit 38.6 % Mean Corpuscular Volume 84.1 fL Mean Corpuscular Hemoglobin 25.7 pg Mean Corpuscular Hemoglobin Concent 30.6 g/dl RDW Standard Deviation 67.8 fL RDW Coefficient of Variation 21.6 % Platelet Count 174 K/uL Mean Platelet Volume 10.0 fL Sodium Level 140 mmol/L Potassium Level 3.9 mmol/L Chloride Level 102 mmol/L Carbon Dioxide Level 31 mmol/L Anion Gap 7.0 mmol/L Blood Urea Nitrogen 20 mg/dl Creatinine 1.05 mg/dl Est Creatinine Clear Calc Drug Dose 59.2 ml/min Estimated GFR () 75.2 Estimated GFR (Non- 64.9 BUN/Creatinine Ratio 19.2 Random Glucose 97 mg/dl Calcium Level 8.3 mg/dl Magnesium Level 2.0 mg/dl (Cely Ivey ., PA-C) Assessment and Plan 86 y/o male with a history of a-fib, chronic systolic CHF, HLD, CKD stage III, hyperthyroidism, depression/anxiety, and GERD who presents to the ED on 07/18 with acute worsening of shortness of breath. Acute on chronic systolic CHF--continues to improve -Admit to telemetry. Pt in a-fib with HR in 70s-80s. Tele and vitals have been stable, transfer to med/surg -Echo from 2016 shows LVEF of 25-30%. Grade I diastolic dysfunction. Moderate global hypokinesis of left ventricle. -Pt still hypervolemic, will continue Lasix 40 mg IV BID -UO 3400 cc, net balance -1490 cc 07/20. Down 3.7 kg since admission -Continue lisinopril 2.5 mg PO qd -Switch metoprolol tartrate 25 mg PO BID to metoprolol succinate 50 mg PO qd per cardio recs -Continue daily weights, monitor I's & O's -Cardiology consulted, appreciate recs: Continue current diuresis regimen. Pt refuses defibrillator. 4 beat runs PVCs, hypokalemia--asymptomatic, now resolved -EKG no acute ischemic changes, repeat trop negative -Potassium remains stable, continue KCl 20 mEq PO BID A-fib on chronic anticoagulation--stable, rate controlled -Metoprolol as above -Continue Xarelto 15 mg PO qd (renal dosing) HLD--stable -Continue Lipitor 40 mg PO qd CKD stage III--stable -Creatinine at baseline, stable. Actually improving Hyperthyroidism -TSH 4.68 on 07/19. Spoke with Dr. Flannery regarding management of his methimazole given elevated TSH. He did not recommend changing methimazole at this time. -Continue methimazole 10 mg PO qd Depression/anxiety -Continue Seroquel 50 mg PO hs and Zoloft 50 gm PO qd Dispo -3 falls recently at home, lives alone -Case management following -PT/OT recommend rehab (Cely Ivey ., PA-C) PA Physician Supervision Note: I interviewed and examined the patient. Discussed with Cely JACKSON and agree with findings and plan as documented in the note. Any exceptions or clarifications are listed here: None Patient is doing well although generally feels still ill is having occasional intermittent abdominal pain has had good diuresis with 3 kg weight loss Vital signs show temp to be 36 7 pulse 85 respiration rate 22 BP 119/64 His abdomen is diffusely tender mostly in the epigastrium right upper quadrant bowel sounds are active and normal his lungs of decreased breath sounds at the bases with a few coarse rales and is cardiac exam is atrial fibrillation and irregular Patient is here with acute on chronic systolic and diastolic heart failure atrial fibrillation and hip contusion with intermittent abdominal pain of undetermined significance will continue to diuresis the patient until we see some change in his creatinine evaluating his need for rehabilitation and checking labs consistent with abdominal pain in the a.m. Documented By: Rodger Wheeler (Rodger Wheeler M.D.)
[2017-07-21] MEDS: QUETIAPINE FUMARATE 25 MG TAB PO SCH (21:46)
[2017-07-21] MEDS: HYDROCODONE/ACETAMOPHEN 5/325MG TAB PO PRN (23:32)
[2017-07-22 00:26] VITALS: BP 105/63; PULSE 87; TEMP 36.8; O2SAT 93
[2017-07-22 07:22] LABS: HEMATOCRIT 42.2 % (42-52); HEMOGLOBIN 12.6 g/dL (14.0-18.0); MEAN CELL VOLUME 85.6 fL (80-100); MEAN CORPUSCULAR HEMOGLOBIN 25.6 pg (25-34); MEAN CORPUSCULAR HGB CONC 29.9 g/dl (32-36); MEAN PLATELET VOLUME 9.7 fL (7.4-10.4); PLATELET COUNT 198 K/uL (130-400); RED CELL DISTRIBUTION WIDTH CV 21.7 % (11.5-14.5); RED CELL DISTRIBUTION WIDTH SD 69.3 fL (36.4-46.3); WHITE BLOOD COUNT 6.86 K/uL (4.8-10.8)
[2017-07-22 07:39] VITALS: BP 129/80; PULSE 74; TEMP 36.7; O2SAT 94
[2017-07-22 07:55] LABS: CALCIUM 8.5 mg/dl (8.5-10.1); CREATININE 1.23 mg/dl (0.60-1.40); POTASSIUM 4.2 mmol/L (3.5-5.1)
[2017-07-22] MEDS: SODIUM CHLORIDE 0.65% NA SOLN 45 ML (OCEAN) NAE SCH (08:00)
[2017-07-22] MEDS: FERROUS SULFATE 325 MG TAB PO SCH ×2 (08:03→21:20)
[2017-07-22] MEDS: ASPIRIN 81 MG ECTAB PO SCH (08:03)
[2017-07-22] MEDS: PANTOprazole SOD 40 MG TAB PO SCH (08:04)
[2017-07-22] MEDS: SENNA 8.6 MG TAB PO SCH (08:04)
[2017-07-22] MEDS: ATORVASTATIN 20 MG TAB PO SCH (08:04)
[2017-07-22] MEDS: METHIMAZOLE 5 MG TAB PO SCH (08:04)
[2017-07-22] MEDS: METOPROLOL SUCC 50MG EXT REL TAB PO SCH (08:05)
[2017-07-22] MEDS: SERTRALINE HCL 50 MG TAB PO SCH (08:05)
[2017-07-22] MEDS: RIVAROXABAN TAB 15 MG TAB PO SCH (08:05)
[2017-07-22] MEDS: LISINOPRIL 2.5 MG TAB PO SCH (08:05)
[2017-07-22] MEDS: POTASSIUM CHLORIDE 20 MEQ TABCR PO SCH ×2 (08:05→21:22)
[2017-07-22] MEDS: FUROSEMIDE INJ 40 MG in SYRINGE 0 ML IV SCH ×2 (08:12→17:27)
[2017-07-22 08:57] LABS: ALBUMIN 3.1 gm/dl (3.4-5.0); TOTAL PROTEIN 6.6 gm/dl (6.4-8.2)
--- NOTE | 2017-07-22 09:29 | Hospitalist Progress Note ---
Hospitalist Progress Note Date of Service Jul 22, 2017. (Cely Ivey ., DONNELLC) Subjective Pt evaluation today including: conversation w/ patient, physical exam, chart review, lab review, review of inpatient medication list Pain: None PO Intake: Tolerating PO diet Voiding: putnam catheter in place The patient reports feeling well. He states he still does have some minimal shortness of breath intermittently but feels good right now. His productive cough continues to improve. He denies any chest or abdominal pain today. The patient denies fevers, chills, sweats, chest pain, palpitations, claudication, wheezing, nausea, vomiting, abdominal pain, dysuria, hematuria, urinary retention, paralysis, weakness, numbness and tingling. Additional Comments: See HPI for pertinent positives and negatives. All other systems reviewed and negative. (Cely Ivey ., DONNELLC) Objective Vital Signs Date Time Temp Pulse Resp B/P (MAP) Pulse Ox O2 Delivery O2 Flow Rate FiO2 07/22/17 07:39 36.7 74 20 129/80 (96) 94 4.0 07/22/17 00:26 36.8 87 20 105/63 (77) 93 4.0 07/22/17 00:00 Nasal Cannula 4.0 07/21/17 16:46 36.7 78 24 97 4.0 07/21/17 16:00 97 Nasal Cannula 4.0 07/21/17 15:00 36.7 78 24 122/78 (93) 97 Nasal Cannula 4.0 07/21/17 12:00 98 Nasal Cannula 3.0 07/21/17 11:43 37.0 82 20 97/61 (73) 92 Nasal Cannula 3.0 (Cely Ivey ., TOM-C) Physical Exam Notes: General appearance: Well-developed, well-nourished, no apparent distress Head: Normocephalic, atraumatic Eyes: Normal inspection, PERRL, EOMI ENT: Normal ENT inspection, hearing grossly normal, pharynx normal Neck: Supple, no JVD, trachea midline Respiratory/Chest: +Mild crackles in bases. Normal breath sounds, no respiratory distress Cardiovascular: +Irregularly irregular, rate controlled. Systolic murmur. No gallop Abdomen/GI: Normal bowel sounds, non-tender, soft Extremities/Musculoskeletal: +Trace pitting edema. Normal inspection, no calf tenderness Neurological/Psych: Alert, normal mood/affect, oriented x 3 Skin: Normal color, warm/dry, no rash (Cely Ivey ., TOM-C) Laboratory Results Last 24 Hours Test 07/22/17 06:49 White Blood Count 6.86 K/uL Red Blood Count 4.93 M/uL Hemoglobin 12.6 g/dL Hematocrit 42.2 % Mean Corpuscular Volume 85.6 fL Mean Corpuscular Hemoglobin 25.6 pg Mean Corpuscular Hemoglobin Concent 29.9 g/dl RDW Standard Deviation 69.3 fL RDW Coefficient of Variation 21.7 % Platelet Count 198 K/uL Mean Platelet Volume 9.7 fL Sodium Level 141 mmol/L Potassium Level 4.2 mmol/L Chloride Level 102 mmol/L Carbon Dioxide Level 35 mmol/L Anion Gap 4.0 mmol/L Blood Urea Nitrogen 26 mg/dl Creatinine 1.23 mg/dl Est Creatinine Clear Calc Drug Dose 50.5 ml/min Estimated GFR () 62.1 Estimated GFR (Non- 53.6 BUN/Creatinine Ratio 21.0 Random Glucose 87 mg/dl Calcium Level 8.5 mg/dl Magnesium Level 2.2 mg/dl Total Bilirubin 0.8 mg/dl Direct Bilirubin 0.2 mg/dl Aspartate Amino Transf (AST/SGOT) 26 U/L Alanine Aminotransferase (ALT/SGPT) 16 U/L Alkaline Phosphatase 112 U/L Total Protein 6.6 gm/dl Albumin 3.1 gm/dl (Cely Ivey ., PA-C) Assessment and Plan 86 y/o male with a history of a-fib, chronic systolic CHF, HLD, CKD stage III, hyperthyroidism, depression/anxiety, and GERD who presents to the ED on 07/18 with acute worsening of shortness of breath. Acute on chronic systolic CHF--continues to improve -Admit to telemetry. Pt in a-fib with HR in 70s-80s. Tele and vitals have been stable, transfer to med/surg -Echo from 2016 shows LVEF of 25-30%. Grade I diastolic dysfunction. Moderate global hypokinesis of left ventricle. -Pt still hypervolemic, will continue Lasix 40 mg IV BID -UO 4250 cc, net balance -2820 cc 07/21. Negative 11.5L since admission -Continue lisinopril 2.5 mg PO qd -Switch metoprolol tartrate 25 mg PO BID to metoprolol succinate 50 mg PO qd per cardio recs -Continue daily weights, monitor I's & O's -Cardiology consulted, appreciate recs: Continue current diuresis regimen. Pt refuses defibrillator. Irritation at Putnam site -Urine culture -D/C Putnam 4 beat runs PVCs, hypokalemia--asymptomatic, now resolved -EKG no acute ischemic changes, repeat trop negative -Potassium remains stable, continue KCl 20 mEq PO BID A-fib on chronic anticoagulation--stable, rate controlled -Metoprolol as above -Continue Xarelto 15 mg PO qd (renal dosing) HLD--stable -Continue Lipitor 40 mg PO qd CKD stage III--stable -Creatinine at baseline, stable Hyperthyroidism -TSH 4.68 on 07/19. Spoke with Dr. Flannery regarding management of his methimazole given elevated TSH. He did not recommend changing methimazole at this time. -Continue methimazole 10 mg PO qd Depression/anxiety -Continue Seroquel 50 mg PO hs and Zoloft 50 gm PO qd Dispo -3 falls recently at home, lives alone -Case management following, Alireza chavis -PT/OT recommend rehab (Cely Ivey ., PA-C) PA Physician Supervision Note: I interviewed and examined the patient. Discussed with Cely Ivey PAC and agree with findings and plan as documented in the note. Any exceptions or clarifications are listed here: None Patient looks much better today didn't get one day ago is continuing of good diuresis with only slight renal distress is mostly bothered by his Putnam catheter and some discomfort is causing. He is still looking towards going home if he does progress well to rehabilitation Vital signs show temperature 36 8 pulse 74 respirations rate 20 BP 129/80 is 94 % on 4 L and does wear oxygen at home His cardiac exam is irregular with a systolic murmur his lungs have decreased breath sounds at the bases otherwise are without significant rales in his JVD is very modest The patient is here with acute on chronic systolic and diastolic heart failure and a fall with a hip contusion with baseline underlying atrial fibrillation but has she's lymphoma We'll continue to pursue diuresis until we see more renal distress continuing to his cardiac medications and likely have him home with close attention paid to his heart failure perhaps even with heart failure clinic Documented By: Rodger Wheeler (Rodger Wheeler M.D.)
--- NOTE | 2017-07-22 09:29 | CARDIOLOGY PROGRESS NOTE ---
DATE: 07/22/2017 SUBJECTIVE: Mr. Smiley is resting comfortably in the bedside chair without complaints of chest pain or dyspnea. OBJECTIVE: VITAL SIGNS: Blood pressure is 130/80 with an irregular pulse of 74. Respiratory rate is 20 and the patient is afebrile at 36.7 degrees Celsius. Saturation is 94% on 4 liters nasal cannula. NECK: Supple with full carotid upstrokes. No obvious bruits. Jugular venous pressure is flat at 90 degrees. There is no thyromegaly. CARDIOVASCULAR: Reveals an irregular rhythm with distant heart sounds. No obvious murmurs. No S3. LUNGS: Clear without rales, rhonchi, or wheezes. ABDOMEN: Soft without bruits. EXTREMITIES: Reveal intact radial artery pulses bilaterally. There is no peripheral edema. LABORATORY DATA: CBC notes a hemoglobin of 12.6, hematocrit 42.2, white count 6.8, and platelet count 198,000. Electrolytes note a sodium of 141, potassium 4.2, chloride 102, bicarbonate 35, BUN 26, creatinine 1.2, and glucose 87. Weight is down 0.9 kg from yesterday. IMPRESSION AND PLAN: 1. Acute on chronic systolic congestive heart failure -- remains on furosemide 40 mg IV b.i.d. Would continue current regimen. 2. 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 The patient refuses implantable defibrillator. 3. History of mitral valve SBE -- 2012. 4. Permanent atrial fibrillation. 5. Moderate mitral regurgitation. 6. Mild aortic insufficiency.
[2017-07-22 14:31] VITALS: BP 104/68; PULSE 75; TEMP 36.6; O2SAT 98
[2017-07-22 16:00] VITALS: O2SAT 98
[2017-07-22] MEDS: QUETIAPINE FUMARATE 25 MG TAB PO SCH (21:22)
[2017-07-22 23:17] VITALS: BP 91/53; PULSE 86; TEMP 37.1; O2SAT 90
[2017-07-23 07:12] VITALS: BP 138/89; PULSE 81; TEMP 36.9; O2SAT 96
[2017-07-23 07:47] LABS: CALCIUM 8.1 mg/dl (8.5-10.1); CREATININE 1.21 mg/dl (0.60-1.40); POTASSIUM 4.2 mmol/L (3.5-5.1)
[2017-07-23] MEDS: SODIUM CHLORIDE 0.65% NA SOLN 45 ML (OCEAN) NAE SCH (08:00)
[2017-07-23] MEDS: FERROUS SULFATE 325 MG TAB PO SCH (09:56)
[2017-07-23] MEDS: ASPIRIN 81 MG ECTAB PO SCH (09:56)
[2017-07-23] MEDS: POTASSIUM CHLORIDE 20 MEQ TABCR PO SCH (09:56)
--- NOTE | 2017-07-23 09:56 | CARDIOLOGY PROGRESS NOTE ---
DATE: 07/23/2017 SUBJECTIVE: Mr. Smiley is resting comfortably in the bedside chair without complaints of chest pain or dyspnea. OBJECTIVE: VITAL SIGNS: Blood pressure 138/89 with a regular pulse of 80. Respiratory rate is 20 and the patient is afebrile at 36.9 degrees Celsius. Saturations 96% on 3 liters nasal cannula. NECK: Supple with full carotid upstrokes. There are no obvious bruits. Jugular venous pressure is flat at 90 degrees. There is no thyromegaly. CARDIOVASCULAR: Reveals an irregular rhythm with distant heart sounds. No murmurs or S3. A fixed split S2 is noted. LUNGS: Clear without rales, rhonchi or wheeze. ABDOMEN: Soft and nontender without bruits. EXTREMITIES: Reveal intact radial artery pulses bilaterally. There is no peripheral edema. DATA: Electrolytes note a sodium of 139, potassium 4.2, chloride 102, bicarbonate 33, BUN 28 creatinine 1.21, and glucose of 107. Albumin level is low at 3.1. IMPRESSION AND PLAN: 1. Acute on chronic congestive heart failure -- continues to diurese well on furosemide 40 mg IV b.i.d. Creatinine remains stable. BUN slightly elevated. 2. 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 As noted previously, the patient refuses an implantable defibrillator. 3. History of mitral valve subacute bacterial endocarditis -- 2012. 4. Permanent atrial flutter. 5. Moderate mitral regurgitation. 6. Mild aortic insufficiency. MTDD
[2017-07-23] MEDS: METHIMAZOLE 5 MG TAB PO SCH (09:57)
[2017-07-23] MEDS: SENNA 8.6 MG TAB PO SCH (09:57)
[2017-07-23] MEDS: ATORVASTATIN 20 MG TAB PO SCH (09:57)
[2017-07-23] MEDS: PANTOprazole SOD 40 MG TAB PO SCH (09:57)
[2017-07-23] MEDS: METOPROLOL SUCC 50MG EXT REL TAB PO SCH (09:57)
[2017-07-23] MEDS: LISINOPRIL 2.5 MG TAB PO SCH (09:58)
[2017-07-23] MEDS: SERTRALINE HCL 50 MG TAB PO SCH (09:58)
[2017-07-23] MEDS: FUROSEMIDE INJ 40 MG in SYRINGE 0 ML IV SCH (09:59)
[2017-07-23] MEDS ORDERED: MICONAZOLE NITRATE POWDER 43 GM ONE (12:15)
[2017-07-23] MEDS ORDERED: NURSING DECISION MEDICATION ORDER SCH (12:15)
[2017-07-23] MEDS: RIVAROXABAN TAB 15 MG TAB PO SCH (12:29)
[2017-07-23] MEDS ORDERED: MICONAZOLE NITRATE POWDER 43 GM EXT PRN (12:30)
[2017-07-23] MEDS ORDERED: MCRK20 PO (12:48)
[2017-07-23] MEDS ORDERED: MCTP EXT (12:48)
[2017-07-23] MEDS ORDERED: TPRSR50 PO (12:48)
--- NOTE | 2017-07-23 13:07 | Discharge Instructions ---
Discharge Instructions Date of Service Jul 23, 2017. Admission Reason for Admission: Chf (Congestive Heart Failure) Discharge Discharge Diagnosis / Problem: Acute on chronic systolic congestive heart failure Discharge Goals Goal(s): Decrease discomfort, Improve function, Diagnostic testing, Therapeutic intervention Activity Recommendations Activity Level: Assistance Required Therapies: Physical Therapy, Occupational Therapy . Additional Information Patient informed of condition: Yes Advance Directives: Yes DNR: No Level of Care: Skilled Communicable Disease: No Prognosis: Stable Oxygen at (LPM): 3L NC, O2 by protocol Root Catheter: No Instructions / Follow-Up Instructions / Follow-Up The patient was admitted with worsening shortness of breath and found to have an acute exacerbation of his chronic systolic congestive heart failure. He was treated with IV Lasix which provided significant diuresis. The patient has a total net balance of -12.7L this admission. The patient had developed scrotal swelling that had been ongoing for 1 month prior to arrival. This is improving , and he is able to void on his own. He is now medically stable for discharge. Medications: *Metoprolol tartrate changed to metoprolol succinate 50 mg PO daily per cardiology recommendations. *Potassium chloride 20 mEq PO daily. *May apply Desenex powder to inguinal folds three times a day as needed for rash *Resume home dose of Lasix and home medications as prescribed. Recommendations: *Elevate scrotum with towels, especially in bed. *Increase physical activity as tolerated. *If unable to void, can re-insert Root catheter. Catheter was inserted at time of admission and d/c'd on 07/22 due to discomfort, so would avoid if possible. Follow up: *Recommend following up with urology regarding scrotal swelling in next few days. *Follow up with primary care provider. *Follow up with cardiology (Dr. Rowland) in 2-3 weeks regarding heart failure. Current Hospital Diet Patient's current hospital diet: AHA Diet (Heart Healthy) Discharge Diet Recommended Diet: AHA Diet (Heart Healthy), Low Sodium Diet (2gm Na) Pending Studies Studies pending at discharge: yes List of pending studies: Urine culture (cath) Physician Orders On Transfer Special Precautions: Fall precautions Vital Signs: Routine Weigh: Daily Additional Orders: Elevate scrotum with towels Contact medical provider if gains 2-3 pounds in 1 day Laboratory Results Hemoglobin A1c Test 05/24/17 04:20 Range/Units Estimated Average Glucose 111 mg/dl Hemoglobin A1c 5.5 4.5-5.6 % Medical Emergencies . Who to Call and When: Medical Emergencies: If at any time you feel your situation is an emergency, please call 911 immediately. . Non-Emergent Contact Non-Emergency issues call your: Primary Care Provider, Business Analyst, Urologist Call Non-Emergent contact if: you have a fever, your pain is not controlled, your pain is worsening, your pain is unusual for you, your pain is concerning you, you have any medication questions . Past History Medical & Surgical History: (1) CHF (congestive heart failure) . "Provider Documentation" section prepared by Cely Ivey. . Core Measure Problem Core Measures: None
--- NOTE | 2017-07-23 13:26 | Discharge Summary ---
Discharge Summary Date of Service Jul 23, 2017. Discharge Summary Admission Date: Jul 18, 2017 at 16:17 Discharge Date: Jul 23, 2017 Discharge Disposition: longterm facility Principal Diagnosis: Acute on chronic systolic CHF Problems/Secondary Diagnoses: A-fib, HLD, CKD stage III, hyperthyroidism, depression/anxiety, GERD Immunizations: Have You Had Influenza Vaccine: Unknown History of Tetanus Vaccine?: Unknown History of Pneumococcal: Unknown History of Hepatitis B Vaccine: Unknown Procedures: CHEST ONE VIEW PORTABLE HISTORY: 86 years-old Male Generalized Weakness acute generalized weakness COMPARISON: Chest radiograph 05/09/2017 TECHNIQUE: Portable AP view of the chest FINDINGS: Cardiac silhouette is again enlarged, unchanged. Atherosclerosis of the aorta. Pulmonary vascular congestion with mild interstitial coarsening suggests mild pulmonary edema. Trace bilateral pleural effusions with bibasilar opacities. No pneumothorax. Bones of the chest appear grossly intact. IMPRESSION: 1. Cardiomegaly with pulmonary vascular congestion and mild interstitial coarsening suggests mild pulmonary edema. 2. Small bilateral pleural effusions with linear subsegmental bibasilar opacities suggesting atelectasis. Consultations: Cardiology Medication Reconciliation New Medications: Metoprolol Succinate (Metoprolol Succinate ER) 50 Mg Tabcr 50 MG PO QAM for 30 Days, #30 TABS Miconazole Nitrate (Desenex Shake Powder) 43 Appln/43 Gm Powd 1 APPLN EXT TID PRN for Affected Skin Folds for 30 Days, #90 DOSE Apply to inguinal folds Potassium Chloride (Klor-Con M20) 20 Meq Tabcr 20 MEQ PO QAM for 30 Days, #30 TABS Continued Medications: Aspirin (Aspirin) 81 Mg Tab 81 MG PO DAILY for 90 Days, #90 TAB 3 Refills Atorvastatin (Lipitor) 40 Mg Tab 40 MG PO DAILY, TAB Ergocalciferol (Vitamin D 11833 Unit) 50,000 Unit Cap 78900 UNIT PO WK, CAP Ferrous Sulfate (Iron) 325 Mg Tab 325 MG PO BID Furosemide (Lasix) 40 Mg Tab 40 MG PO QAM, TAB Lisinopril (Zestril) 2.5 Mg Tab 2.5 MG PO DAILY Methimazole (Tapazole) 10 Mg Tab 10 MG PO DAILY Pantoprazole (Protonix) 40 Mg Tab 40 MG PO DAILY, #30 TAB Quetiapine Fumarate (Seroquel) 50 Mg Tab 50 MG PO HS, TAB Rivaroxaban (Xarelto) 15 Mg Tab 15 MG PO DAILY Senna (Senokot) 8.6 Mg Tab 1 TAB PO DAILY, TAB Sertraline (Zoloft) 50 Mg Tab 50 MG PO DAILY for 30 Days, #30 TAB 2 Refills Discontinued Medications: Metoprolol Tartrate (Lopressor) 50 Mg Tab 25 MG PO BID, TAB Referrals At Discharge Follow up Referrals: Urologist Referral - Within 1-2 Weeks with Charlene Rob MD Discharge Exam The patient denies any shortness of breath currently. He denies any chest or abdominal pain. He states he does feel better with the Root out, however his scrotal edema is still significant. He states that he is urinating on his own, but he is making a mess each time because he has trouble finding the penis due to edema. He states he did have one brief episode of nausea this morning but denied any vomiting, and the nausea resolved on its own. The patient denies fevers, chills, sweats, chest pain, palpitations, claudication, cough, wheezing , shortness of breath, vomiting, abdominal pain, dysuria, hematuria, urinary retention, paralysis, weakness, numbness and tingling. Constitutional: No fever, No chills, No sweats Eyes: No worsening of vision, No eye pain, No diplopia ENT: No hearing loss, No nasal symptoms, No trouble swallowing Respiratory: No cough, No wheezing, No shortness of breath Cardiovascular: No chest pain, No claudication, No palpitations Abdomen: +Nausea. No pain, No vomiting Musculoskeletal: No joint pain, No muscle pain, No swelling Genitourinary - Male: +Urinary incontinence. No dysuria, No urinary retention , No hematuria Neurologic: No paralysis, No weakness, No numbness/tingling Integumentary: No rash, No itch, No color change General appearance: Well-developed, well-nourished, no apparent distress Head: Normocephalic, atraumatic Eyes: Normal inspection, PERRL, EOMI ENT: Normal ENT inspection, hearing grossly normal, pharynx normal Neck: Supple, no JVD, trachea midline Respiratory/Chest: +Mild crackles in bases. Normal breath sounds, no respiratory distress Cardiovascular: +Irregularly irregular, rate controlled. Systolic murmur. No gallop Abdomen/GI: Normal bowel sounds, non-tender, soft : +Scrotal edema. Non-tender. Erythema in inguinal folds Extremities/Musculoskeletal: +Trace pitting edema. Normal inspection, no calf tenderness Neurological/Psych: Alert, normal mood/affect, oriented x 3 Skin: Normal color, warm/dry, no rash Hospital Course 86 y/o male with a history of a-fib, chronic systolic CHF, HLD, CKD stage III, hyperthyroidism, depression/anxiety, and GERD who presents to the ED on 07/18 with acute worsening of shortness of breath. Acute on chronic systolic CHF--continues to improve -Admit to telemetry. Pt in a-fib with HR in 70s-80s. Tele and vitals have been stable, transfer to med/surg -Echo from 2016 shows LVEF of 25-30%. Grade I diastolic dysfunction. Moderate global hypokinesis of left ventricle. -BUN rising, urine output slowing down. Can resume home dose of Lasix 40 mg PO qd -UO 1925 cc, net balance -1100 on 07/22. Negative 12.7L since admission -Continue lisinopril 2.5 mg PO qd -Switch metoprolol tartrate 25 mg PO BID to metoprolol succinate 50 mg PO qd per cardio recs -Continue daily weights, monitor I's & O's -Cardiology consulted, appreciate recs: Continue current diuresis regimen. Pt refuses defibrillator. Irritation at Root site--resolved -Urine culture pending -D/C Root Scrotal edema, elif rash in inguinal folds -Recommend elevating scrotum w/towels underneath -Desenex to inguinal folds -F/u with urology outpatient. Has seen Dr. 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 No large intramuscular hematoma identified. 4 beat runs PVCs, hypokalemia--asymptomatic, now resolved -EKG no acute ischemic changes, repeat trop negative -Potassium remains stable. D/c with KCl 20 mEq PO qd A-fib on chronic anticoagulation--stable, rate controlled -Metoprolol as above -Continue Xarelto 15 mg PO qd (renal dosing) HLD--stable -Continue Lipitor 40 mg PO qd CKD stage III--stable -Creatinine at baseline, stable Hyperthyroidism -TSH 4.68 on 07/19. Spoke with Dr. Flannery regarding management of his methimazole given elevated TSH. He did not recommend changing methimazole at this time. -Continue methimazole 10 mg PO qd Depression/anxiety -Continue Seroquel 50 mg PO hs and Zoloft 50 gm PO qd Dispo -3 falls recently at home, lives alone -Case management following, [facility] first choice. Can accept pt -PT/OT recommend rehab PA Physician Supervision Note: I interviewed and examined the patient. Discussed with Cely JACKSON and agree with findings and plan as documented in the note. Any exceptions or clarifications are listed here: None Patient was seen and presents of his family he's having some issues with scrotal edema discussed local treatment of this the patient will have his scrotum propped up and lying down in bed continue his diuretics Vital signs are stable exam his lungs are clear his heart is irregular Patient is here with good diuresis from fluid retention from acute on chronic systolic heart failure, local care to scrotal edema and intertrigo will be recommended at [facility] Documented By: Rodger Wheeler Total Time Spent: Greater than 30 minutes This includes examination of the patient, discharge planning, medication reconciliation, and communication with other providers. Discharge Instructions Please refer to the electronic Patient Visit Report (Discharge Instructions) for additional information. Follow-Up PCP Cardiology Urology Additional Copies To Hakan Willingham M.D.
[2017-07-23 13:49] VITALS: BP 138/89; PULSE 81; TEMP 36.9; O2SAT 96
[2017-07-24] MEDS ORDERED: FUROSEMIDE 40 MG TAB PO SCH (08:00)
== END 2017-07-23 15:00 | DRG 291 ==
LOC: EDBD 10:36 → C.EDC 10:37 → C.2T 16:17 → ENRESERV 16:24 → C.MS4W 07-21 17:22
PROVIDERS: ADMIT Internal Medicine Sports Medicine; ATTEND Internal Medicine
DX: I13.0 Hypertensive heart and chronic kidney disease with heart failure and stage 1 through stage 4 chronic kidney disease, or unspecified chronic kidney disease (principal); I50.43 Acute on chronic combined systolic (congestive) and diastolic (congestive) heart failure; N18.3 Chronic kidney disease, stage 3 (moderate); I48.2 Chronic atrial fibrillation; E05.90 Thyrotoxicosis, unspecified without thyrotoxic crisis or storm; E78.5 Hyperlipidemia, unspecified; I08.0 Rheumatic disorders of both mitral and aortic valves; R55 Syncope and collapse; S70.02XA Contusion of left hip, initial encounter; F32.9 Major depressive disorder, single episode, unspecified; F41.9 Anxiety disorder, unspecified; Z79.01 Long term (current) use of anticoagulants; Z79.82 Long term (current) use of aspirin; Z79.899 Other long term (current) drug therapy; Z87.891 Personal history of nicotine dependence; Z88.2 Allergy status to sulfonamides; Z91.81 History of falling; Z91.041 Radiographic dye allergy status; W18.30XA Fall on same level, unspecified, initial encounter

== ENCOUNTER 2017-09-06 12:28 | Emergency (ER) | payer OTHER ==
[~2017-09-06] VITALS: Ht 185.4 cm; Wt 86.9 kg
[2017-09-06 12:28] VITALS: O2SAT 93; Ht 185.4 cm; Wt 86.9 kg
[~2017-09-06 12:28] MED LIST changes: -ANT25 PO; -ASPEC81 PO; +ASPI1TAB83 PO; +ATOR-24 PO; +ERGO500037 PO; +FERR1TAB23 PO; -FLX10 PO; -FRRS300 PO; +FRS/40 PO; -GABA-112 PO; -GUAISYP4 PO; +LISI-789 PO; -LPT40 PO; -LSN25 PO; -LSX40 PO; +MCRK20 PO; +MCTP EXT; -METH-589 PO; +METH10TA6 PO; -MRLP17 PO; -MTR400 PO; +PANT40TA PO; -PRT40 PO; +QUET5TAB PO; +SENN-61 PO; -SRQ25 PO; +TPRSR50 PO; -TRAM-10 PO
--- NOTE | 2017-09-06 12:46 | EMERGENCY ROOM VISIT NOTE ---
History Report prepared by Lilly: Meliza Gee Under the Supervision of: Dr. Kenroy Tong D.O. First contact with patient: 12:29 Stated Complaint: SOB History of Present Illness The patient is an 87 year old male who presents to the Emergency Room with complaints of persistent shortness of breath for two weeks. He reports a cough. Per nursing staff, the patient coughed up a faint amount of blood mixed in white mucus. He reports body aches. He denies any sick contacts. Per daughter, the patient has trouble breathing off and on regularly. He has a history of CHF. He was seen in the ED two weeks ago for similar symptoms and he was sent to [facility] for rehab. He lives independently. He notes he had chest pain all morning yesterday. He states that he becomes more short of breath when he lays flat. He notes that he is out of breath on exertion. Source of History: patient, family, nursing staff Onset: two weeks Position: other (global) Quality: other (shortness of breath) Timing: other (persistent) Modifying Factors (Worsening): exertion, other (lying flat) Associated Symptoms: + cough, + chest pain Note: He reports body aches. Review of Systems See HPI for pertinent positives & negatives. A total of 10 systems reviewed and were otherwise negative. Past Medical & Surgical Medical Problems: (1) Abdominal pain (2) ARF (acute renal failure) (3) Back pain (4) CVA (cerebral vascular accident) (5) HTN (hypertension) (6) Hyperkalemia (7) Hypoxia (8) Kidney stone (9) Leukocytosis (10) Lymphoma (11) Pneumonia (12) Respiratory failure requiring intubation (13) Severe back pain (14) Urinary retention (15) Vertigo Family History FH: cancer FHx: hypertension Kidney disease or stones Social History Smoking Status: Former Smoker Alcohol Use: none Drug Use: none Marital Status: Housing Status: lives with significant other Occupation Status: retired Current/Historical Medications Scheduled Albuterol Hfa (Ventolin Hfa), 2 PUFFS INH Q6H Aspirin (Aspirin), 81 MG PO DAILY Atorvastatin (Lipitor), 40 MG PO DAILY Ergocalciferol (Vitamin D 32148 Unit), 50,000 UNIT PO WK Furosemide (Lasix), 40 MG PO QAM Lisinopril (Zestril), 2.5 MG PO DAILY Methimazole (Methimazole ), 5 MG PO DAILY Metoprolol Tartrate (Lopressor) (Lopressor), 25 MG PO BID Pantoprazole (Protonix), 40 MG PO MWF Potassium Chloride (Micro-K Ext Rel), 10 MEQ PO DAILY Quetiapine Fumarate (Seroquel), 50 MG PO HS Rivaroxaban (Xarelto), 15 MG PO DAILY Senna/Docusate Sod (Senokot S), 1 TAB PO BID Sertraline (Zoloft), 50 MG PO DAILY Allergies Coded Allergies: Iodinated Diagnostic Agents (Verified Allergy, Severe, ANAPHYLAXIS, ) Sulfa Antibiotics (Verified Allergy, Unknown, UNKNOWN, 09/06/17) Physical Exam Vital Signs Date Time Temp Pulse Resp B/P (MAP) Pulse Ox O2 Delivery O2 Flow Rate FiO2 09/06/17 18:31 36.6 81 20 155/104 92 09/06/17 16:13 81 20 155/104 92 Room Air 09/06/17 15:56 82 20 159/100 91 Room Air 09/06/17 15:18 73 20 146/87 91 Room Air 09/06/17 14:31 159/103 09/06/17 14:11 83 23 93 Room Air 09/06/17 14:06 81 22 93 Room Air 09/06/17 13:36 78 26 93 Room Air 09/06/17 13:31 145/102 09/06/17 13:28 82 21 93 Room Air 09/06/17 13:13 80 22 155/102 93 Room Air 09/06/17 13:01 155/102 09/06/17 12:58 86 26 95 09/06/17 12:49 85 09/06/17 12:34 158/98 09/06/17 12:28 36.6 90 24 158/98 93 Room Air 09/06/17 12:28 93 Room Air 09/06/17 12:28 93 Room Air 09/06/17 12:28 93 Room Air Physical Exam GENERAL: Patient is awake, alert, and in no acute distress. Patient is resting comfortably and showing no signs of anxiety EYES: The conjunctivae are clear. The pupils are round and reactive. EARS, NOSE, MOUTH AND THROAT: The nose is without any evidence of any deformity. Mucous membranes are moist tongue is midline NECK: The neck is nontender and supple. RESPIRATORY: Lungs sounds diminished throughout, rales at both bases, mild tachypnea appreciated. CARDIOVASCULAR: Regular rate and rhythm noted, systolic murmur suggested on auscultation. GASTROINTESTINAL: The abdomen is soft. Bowel sounds are present in all quadrants. Abdomen is nontender MUSCULOSKELETAL/EXTREMITIES: There is no evidence of gross deformity full range of motion is noted in the hips and shoulders SKIN: Pedal edema bilaterally. NEUROLOGIC: Patient is awake alert and oriented x3. Medical Decision & Procedures ER Provider Diagnostic Interpretation: Radiology results as stated below per my review and radiologist interpretation: CHEST ONE VIEW PORTABLE HISTORY: 87 years-old Male EVALUATE RESPIRATORY DISTRESS.DYSPNEA acute respiratory distress with dyspnea COMPARISON: Chest radiograph 07/18/2017, chest CT 05/06/2017 TECHNIQUE: Portable AP view of the chest FINDINGS: Cardiac silhouette is again enlarged, unchanged. Atherosclerosis of the aorta. Pulmonary vascular congestion with unchanged appearing interstitial coarsening. No pneumothorax. Blunting of the costophrenic angles suggests trace effusions with trace fluid within the right minor fissure. There are hazy bibasilar opacities. No pneumothorax. Degenerative changes are noted within the shoulders and spine. Moderate sized hiatal hernia. IMPRESSION: 1. Cardiomegaly with pulmonary vascular congestion and interstitial coarsening suggesting mild pulmonary edema. 2. Trace bilateral pleural effusions with bibasilar opacities suggesting atelectasis or less likely pneumonitis. The above report was generated using voice recognition software. It may contain grammatical, syntax or spelling errors. Electronically signed by: Troy Calzada M.D. 09/06/2017 1:12 PM Dictated Date/Time: 09/06/2017 1:09 PM Laboratory Results 09/06/17 12:49 Red Blood Count 4.89, Mean Corpuscular Volume 81.2, Mean Corpuscular Hemoglobin 26.0, Mean Corpuscular Hemoglobin Concent 32.0, Mean Platelet Volume 10.4, Neutrophils (%) (Auto) 66.4, Lymphocytes (%) (Auto) 21.6, Monocytes (%) (Auto) 8.7, Eosinophils (%) (Auto) 2.6, Basophils (%) (Auto) 0.4, Neutrophils # (Auto) 5.02, Lymphocytes # (Auto) 1.63, Monocytes # (Auto) 0.66, Eosinophils # (Auto) 0.20, Basophils # (Auto) 0.03 09/06/17 12:49 09/06/17 13:54 Test 09/06/17 12:49 09/06/17 13:54 White Blood Count 7.56 K/uL (4.8-10.8) Red Blood Count 4.89 M/uL (4.7-6.1) Hemoglobin 12.7 g/dL (14.0-18.0) Hematocrit 39.7 % (42-52) Mean Corpuscular Volume 81.2 fL (80-100) Mean Corpuscular Hemoglobin 26.0 pg (25-34) Mean Corpuscular Hemoglobin Concent 32.0 g/dl (32-36) Platelet Count 227 K/uL (130-400) Mean Platelet Volume 10.4 fL (7.4-10.4) Neutrophils (%) (Auto) 66.4 % Lymphocytes (%) (Auto) 21.6 % Monocytes (%) (Auto) 8.7 % Eosinophils (%) (Auto) 2.6 % Basophils (%) (Auto) 0.4 % Neutrophils # (Auto) 5.02 K/uL (1.4-6.5) Lymphocytes # (Auto) 1.63 K/uL (1.2-3.4) Monocytes # (Auto) 0.66 K/uL (0.11-0.59) Eosinophils # (Auto) 0.20 K/uL (0-0.5) Basophils # (Auto) 0.03 K/uL (0-0.2) RDW Standard Deviation 53.6 fL (36.4-46.3) RDW Coefficient of Variation 18.2 % (11.5-14.5) Immature Granulocyte % (Auto) 0.3 % Immature Granulocyte # (Auto) 0.02 K/uL (0.00-0.02) Anion Gap 7.0 mmol/L (3-11) Est Creatinine Clear Calc Drug Dose 56.5 ml/min Estimated GFR () 72.2 Estimated GFR (Non- 62.3 BUN/Creatinine Ratio 21.3 (10-20) Calcium Level 9.0 mg/dl (8.5-10.1) Total Bilirubin 1.1 mg/dl (0.2-1) Alanine Aminotransferase (ALT/SGPT) 24 U/L (12-78) Alkaline Phosphatase 132 U/L (45-117) Troponin I < 0.015 ng/ml (0-0.045) Pro-B-Type Natriuretic Peptide 5673 pg/ml (0-1800) Total Protein 8.3 gm/dl (6.4-8.2) Albumin 3.9 gm/dl (3.4-5.0) Globulin 4.4 gm/dl (2.5-4.0) Albumin/Globulin Ratio 0.9 (0.9-2) Prothrombin Time 11.7 SECONDS (9.0-12.0) Prothromb Time International Ratio 1.1 (0.9-1.1) Activated Partial Thromboplast Time 26.5 SECONDS (21.0-31.0) Partial Thromboplastin Ratio 1.0 Aspartate Amino Transf (AST/SGOT) 16 U/L (15-37) Laboratory results per my review. Medications Administered Medications (Trade) Dose Ordered Sig/Claudia Route Start Time Stop Time Status Last Admin Dose Admin Furosemide (Lasix Inj) 40 mg NOW STAT IV 09/06/17 13:49 09/06/17 13:50 DC 09/06/17 13:59 40 MG Acetaminophen (Tylenol Tab) 1,000 mg NOW STAT PO 09/06/17 14:15 09/06/17 14:17 DC 09/06/17 14:27 1,000 MG ECG Per My Interpretation Indication: SOB/dyspnea Rate (beats per minute): 87 Rhythm: atrial fibrillation Findings: PVC, ST depression (diffuse), other Change: no significant change (when compared to 07/19/2017) ED Course 1235: The patient was evaluated in room C3. A complete history and physical examination were performed. 1349: Ordered Lasix 40 mg IV 1412: I reassessed the patient at this time. I updated the patient. 1415: Ordered Tylenol 1,000 mg PO 1608: I spoke with Dr. Mead, cardiology. We discussed the patient's case. He is okay with the patient being discharged home. He will follow up with the patient. 1620: I reassessed the patient at this time. The family is comfortable taking the patient home. I discussed the results and treatment plan with the patient. I answered all pertaining questions that he had. He expressed understanding and verbalized agreement. The patient will be discharged home. Medical Decision Prior records/ancillary studies reviewed. Triage Nursing notes reviewed. Additional history obtained from the family. The patient's history was concerning for respiratory difficulties. Differential diagnosis: Etiologies such as infections, reactive airway disease, pneumonia, pneumothorax , COPD, CHF, cardiac ischemia, pulmonary embolism, musculoskeletal, gastrointestinal, as well as others were entertained. The patient is an 87-year-old male who has a history of congestive heart failure as well as valvular heart disease. He has a history of volume overload. The patient was treated with IV Lasix in the emergency department. I discussed the patient's laboratory and radiographic studies with him. He had some episodes of lower pulse ox but mostly at rest his oxygen saturation was acceptable. I discussed his case with his primary nursing home social worker. At this time I feel the patient can follow-up as an outpatient. He has good follow-up arrangement. He was encouraged to continue all medications as prescribed and rest. I did encourage him to try to get up as much as possible and ambulate around the house especially with assistance. He was encouraged to follow-up with his primary nursing home social worker as soon as possible but return to the emergency department immediately if symptoms change worsening the need arises. Medication Reconcilliation Current Medication List: was personally reviewed by me Blood Pressure Screening Patient's blood pressure: Elevated blood pressure Blood pressure disposition: Elevated BP felt to be situational Consults Time Called: 1605 Consulting Physician: Dr. Mead, cardiology Returned Call: [address] Mead, cardiology. We discussed the patient's case. He is okay with the patient being discharged home. He will follow up with the patient. Impression Primary Impression: Shortness of breath Additional Impression: CHF (congestive heart failure) Scribe Attestation The scribe's documentation has been prepared under my direction and personally reviewed by me in its entirety. I confirm that the note above accurately reflects all work, treatment, procedures, and medical decision making performed by me. Departure Information Dispostion Home / Self-Care Referrals Hakan Willingham M.D. (PCP) Forms HOME CARE DOCUMENTATION FORM, IMPORTANT VISIT INFORMATION Patient Instructions ED CHF General, My [facility] Additional Instructions Call your family doctor to schedule a follow-up appointment. Continue all medications as prescribed. Return to the emergency department if symptoms change worsen or the need arises. Problem Qualifiers Additional Impression: CHF (congestive heart failure) Heart failure type: unspecified Heart failure chronicity: unspecified Qualified Codes: I50.9 - Heart failure, unspecified
[2017-09-06] MEDS ORDERED: SENN-65 PO (12:57)
[2017-09-06] MEDS ORDERED: POTA10CA28 PO (12:57)
[2017-09-06] MEDS ORDERED: METH-589 PO (12:57)
[2017-09-06] MEDS ORDERED: METO50TA16 PO (12:57)
[2017-09-06 13:04] LABS: BASO % 0.4 %; BASO ABS # 0.03 K/uL (0-0.2); EOS % 2.6 %; HEMATOCRIT 39.7 % (42-52); HEMOGLOBIN 12.7 g/dL (14.0-18.0); IG# 0.02 K/uL (0.00-0.02); LYMPH % 21.6 %; LYMPH ABS # 1.63 K/uL (1.2-3.4); MEAN CELL VOLUME 81.2 fL (80-100); MEAN PLATELET VOLUME 10.4 fL (7.4-10.4); MONO % 8.7 %; MONO ABS # 0.66 K/uL (0.11-0.59); NEUT % 66.4 %; NEUT ABS # 5.02 K/uL (1.4-6.5); PLATELET COUNT 227 K/uL (130-400); RED CELL DISTRIBUTION WIDTH CV 18.2 % (11.5-14.5); RED CELL DISTRIBUTION WIDTH SD 53.6 fL (36.4-46.3); WHITE BLOOD COUNT 7.56 K/uL (4.8-10.8)
--- NOTE | 2017-09-06 13:14 | DIAGNOSTIC IMAGING REPORT ---
CHEST ONE VIEW PORTABLE HISTORY: 87 years-old Male EVALUATE RESPIRATORY DISTRESS.DYSPNEA acute respiratory distress with dyspnea COMPARISON: Chest radiograph 07/18/2017, chest CT 05/06/2017 TECHNIQUE: Portable AP view of the chest FINDINGS: Cardiac silhouette is again enlarged, unchanged. Atherosclerosis of the aorta. Pulmonary vascular congestion with unchanged appearing interstitial coarsening. No pneumothorax. Blunting of the costophrenic angles suggests trace effusions with trace fluid within the right minor fissure. There are hazy bibasilar opacities. No pneumothorax. Degenerative changes are noted within the shoulders and spine. Moderate sized hiatal hernia. IMPRESSION: 1. Cardiomegaly with pulmonary vascular congestion and interstitial coarsening suggesting mild pulmonary edema. 2. Trace bilateral pleural effusions with bibasilar opacities suggesting atelectasis or less likely pneumonitis. The above report was generated using voice recognition software. It may contain grammatical, syntax or spelling errors. Electronically signed by: Troy Calzada M.D. 09/06/2017 1:12 PM Dictated Date/Time: 09/06/2017 1:09 PM
[2017-09-06] MEDS ORDERED: VNTHFA/IN INH (13:25)
[2017-09-06 13:27] LABS: BLOOD UREA NITROGEN 23 mg/dl (7-18); GLUCOSE 88 mg/dl (70-99)
[2017-09-06 13:31] LABS: CREATININE 1.08 mg/dl (0.60-1.40)
[2017-09-06 13:32] LABS: CARBON DIOXIDE 27 mmol/L (21-32); SODIUM 142 mmol/L (136-145); TOTAL PROTEIN 8.3 gm/dl (6.4-8.2)
[2017-09-06 13:33] LABS: ALBUMIN 3.9 gm/dl (3.4-5.0); ALKALINE PHOSPHATASE 132 U/L (45-117); ALT/SGPT 24 U/L (12-78)
[2017-09-06] MEDS ORDERED: FUROSEMIDE 40 MG/4 ML VIAL IV STA (13:49)
[2017-09-06] MEDS ORDERED: ACETAMINOPHEN 500 MG TAB PO STA (14:15)
[2017-09-06 14:21] LABS: INR 1.1 (0.9-1.1); PTT PATIENT 26.5 SECONDS (21.0-31.0)
[2017-09-06 14:35] LABS: POTASSIUM 3.9 mmol/L (3.5-5.1)
[2017-09-06 18:31] VITALS: BP 155/104; PULSE 81; TEMP 36.6; O2SAT 92
== END 2017-09-06 18:32 | disposition home or self-care (01) ==
LOC: EDBD 12:28 → C.EDC 12:29
DX: R06.02 Shortness of breath (principal); I50.9 Heart failure, unspecified; N17.9 Acute kidney failure, unspecified; Z86.73 Personal history of transient ischemic attack (TIA), and cerebral infarction without residual deficits; I11.0 Hypertensive heart disease with heart failure; E87.5 Hyperkalemia; Z87.442 Personal history of urinary calculi; D72.829 Elevated white blood cell count, unspecified; Z85.72 Personal history of non-Hodgkin lymphomas; Z87.01 Personal history of pneumonia (recurrent); Z80.9 Family history of malignant neoplasm, unspecified; Z82.49 Family history of ischemic heart disease and other diseases of the circulatory system; Z84.1 Family history of disorders of kidney and ureter; Z87.891 Personal history of nicotine dependence; Z79.82 Long term (current) use of aspirin; Z79.01 Long term (current) use of anticoagulants; Z79.899 Other long term (current) drug therapy; Z88.2 Allergy status to sulfonamides; Z91.041 Radiographic dye allergy status

== ENCOUNTER 2018-06-24 13:42 | Inpatient (IN) ==
[2018-06-24] MEDS ORDERED: MoRPHine SULFATE 4 MG/ML 1 ML CARP\\VIAL IV STA (13:51)
[2018-06-24 14:08] LABS: Basophils # (auto) 0.02 K/uL (0-0.2); Basophils % (auto) 0.3 %; Eosinophils # (auto) 0.29 K/uL (0-0.5); Eosinophils % (auto) 3.8 %; Hematocrit (blood only) 33.4 % (42-52); Hemoglobin 10.1 g/dL (14.0-18.0); Immature Granulocytes # (auto) 0.02 K/uL (0.00-0.02); Immature Granulocytes % (auto) 0.3 %; Lymphocytes # (auto) 1.64 K/uL (1.2-3.4); Lymphocytes % (auto) 21.8 %; Mean Corpuscular Hgb Conc 30.2 g/dL (32-36); Mean Corpuscular Volume 78.8 fL (80-100); Mean Platelet Volume 10.3 fL (7.4-10.4); Monocytes # (auto) 1.28 K/uL (0.11-0.59); Neutrophils # (auto) 4.29 K/uL (1.4-6.5); Neutrophils % (auto) 56.8 %; Platelet Count 170 K/uL (130-400); RDW Coefficient of Variation 17.6 % (11.5-14.5); RDW Standard Deviation 50.1 fL (36.4-46.3); Red Blood Count 4.24 M/uL (4.7-6.1); White Blood Count 7.54 K/uL (4.8-10.8)
[2018-06-24] MEDS ORDERED: methylPREDNISolone 125 MG/2 ML VIAL IV STA (14:16)
[2018-06-24] MEDS ORDERED: DiphenhydrAMINE HCL 50 MG/ML VIAL IV STA (14:16)
--- NOTE | 2018-06-24 14:17 | XRay Report ---
XR foot LT min 3V routine CLINICAL HISTORY: L foot, 1st toe pain COMPARISON: None. DISCUSSION: No acute fractures are visualized. There are flexion deformities of the third through fif th toes. There is a plantar calcaneal spur. There is no erosive disease. There are minor degenerative changes. IMPRESSION: 1. No acute fractures 2. No erosive or destructive changes are visualized. Electronically signed by: Ganesh Dimas M.D. 06/24/2018 2:15 PM
[2018-06-24 14:18] LABS: INR 1.2 (0.9-1.1); Partial Thromboplastin Ratio 1.1; Partial Thromboplastin Time 27.5 Seconds (21.0-31.0); Prothrombin Time 12.3 Seconds (9.0-12.0)
[2018-06-24 14:19] LABS: Albumin Level 3.2 gm/dl (3.4-5.0); BUN Creatinine Ratio 15.7 (10-20); Calcium 8.1 mg/dl (8.5-10.1); Creatinine Clr Calc Pharmacy 47.3 ml/min; Est GFR (African American) 52.3; Est GFR (Non-African American) 45.1; Potassium 3.8 mmol/L (3.5-5.1)
[2018-06-24 14:25] LABS: Albumin Globulin Ratio 0.9 (0.9-2); Bilirubin,Total 0.9 mg/dl (0.1-1); Globulin 3.7 gm/dl (2.5-4.0); Total Protein 6.9 gm/dl (6.4-8.2); Troponin I 0.035 ng/ml (0-0.045)
--- NOTE | 2018-06-24 15:26 | CT Scan Report ---
CT head/brain wo con CLINICAL HISTORY: 87 years-old Male presenting with s/p fall on xarelto. TECHNIQUE: Multidetector CT imaging of the head was performed without the use of intravenous contrast . IV contrast: None. A dose lowering technique was used consistent with the principles of ALARA (as l ow as reasonably achievable). COMPARISON: 07/18/2017. CT DOSE (mGy.cm): The estimated cumulative dose is 3198.33. FINDINGS: [employer] topogram: Unremarkable. Proportional ventricular and sulcal prominence, likely age-related parenchymal volume loss. No hemorr miranda. Periventricular and subcortical white matter hypoattenuation, nonspecific but likely indicative of chronic small vessel ischemic change. Limited old cortical infarct in the left parietal lobe is a gain suggested. No acute territorial infarct. No mass effect or midline shift. No extra-axial fluid c ollection. Paranasal sinuses and mastoid air cells clear. Calvarium intact. Bilateral ramona lenses a re absent. IMPRESSION: 1. No significant change compared to the prior study. No acute intracranial abnormality. Electronically signed by: Klever Ramos M.D. 06/24/2018 3:25 PM
--- NOTE | 2018-06-24 15:30 | CT Scan Report ---
CERVICAL SPINE CT CT DOSE: HISTORY: Neck pain. s/p fall on xarelto TECHNIQUE: Multiaxial CT images of the cervical spine were performed and reformatted in the sagittal and coronal plane without the use of contrast. A dose lowering technique was utilized adhering to th e principles of ALARA. COMPARISON: Cervical spine CT 07/18/2017. FINDINGS: No fractures. No subluxation. Prevertebral soft tissues and the C1-C2 interval are intact. No pneumothorax. Multinodular thyroid. Dominant nodule within the left thyroid lobe measures 3.5 cm. This remains unchanged. Multilevel degenerative changes are again noted with multiple fused facets. IMPRESSION: No fractures within the cervical spine. Electronically signed by: Marty Do M.D. 06/24/2018 3:29 PM
--- NOTE | 2018-06-24 15:38 | CT Scan Report ---
CT chest wo con CT DOSE: HISTORY: s/p fall on xarelto N NO CONTRAST PER DR SILVA, ANAPHALAXIS TECHNIQUE: Multiaxial CT images of the chest were performed without contrast. A dose lowering techni que was utilized adhering to the principles of ALARA. COMPARISON: Chest CT 06/13/2013. FINDINGS: There is respiratory motion artifact. The central airways appear patent. No pneumothorax. P unctate calcified granuloma within the right upper lobe. Bibasilar interstitial thickening which is l ikely chronic. Small amount of consolidation within the bases of the lower lobes suggestive of atelec tasis. Multinodular thyroid gland is again noted. Cholelithiasis. Trace perihepatic fluid. Moderate h iatus hernia. A few prominent mediastinal lymph nodes are noted. No hilar lymphadenopathy. The heart is moderately enlarged. No pericardial effusion. Small bilateral pleural effusions. The main pulmonar y artery is dilated measuring up to 5 cm. This is consistent with pulmonary arterial hypertension. No mediastinal hematoma. A few old, healed left anterior fractures. No acute fractures within the visua lized osseous structures of the chest. Minimal superimposing compression deformities at T4 and T5. Th guevara are likely old. IMPRESSION: 1. No acute traumatic process within the chest. 2. Cardiomegaly and pulmonary hypertension. 3. Small bilateral pleural effusions. 4. Moderate hiatus hernia. 5. Mildly enlarged mediastinal lymph nodes. 6. Additional findings as described above. Electronically signed by: Marty Do M.D. 06/24/2018 3:36 PM
--- NOTE | 2018-06-24 15:40 | CT Scan Report ---
CT abd pelvis wo con CLINICAL HISTORY: 87 years-old Male presenting with fall, on Xarelto, mid lower back pain. TECHNIQUE: Multidetector CT of the abdomen and pelvis was performed without the use of intravenous co ntrast. IV contrast: None. A dose lowering technique was used consistent with the principles of ALARA (as low as reasonably achievable). COMPARISON: 04/12/2018. CT DOSE (mGy.cm): The estimated cumulative dose is 3198.33 mGy.cm. FINDINGS: Collar Sewer topogram: Cardiomegaly. Lung bases: Subpleural reticulation. Dependent consolidation and groundglass opacities likely atelect asis. This is in part passive atelectasis given the presence of the bilateral small pleural effusions . Multichamber enlargement of the heart. Coronary artery calcification. No pericardial effusion. Liver: Normal morphology. Density consistent with hepatic steatosis. Several well-defined hypodensiti es in the liver likely hepatic cysts or hamartomas. These were better evaluated on the prior exam wit h intravenous contrast. These are unchanged. Biliary: No gross biliary ductal dilatation allowing for noncontrast technique. However, gallstones a re suspected within the proximal portion of the common duct (series 13 image 133). Some degree of cho ledocholithiasis may in retrospect have been present on the prior exam. Gallbladder contains gallston es. The gallbladder is physiologically distended. Pancreas: Moderate parenchymal atrophy. Spleen: Normal noncontrast appearance. Adrenal glands: Normal noncontrast appearance. Kidneys and ureters: Cortical atrophy is suggested in the right kidney. Well-defined 3 cm hypodensity in the right kidney likely cyst. Moderate bilateral perinephric fat stranding, nonspecific. No nephr olithiasis or hydronephrosis. Ureters nondistended. The right kidney may have a duplicated collecting system. Bladder: Circumferential bladder wall thickening. Pelvic organs: Prostate and seminal vesicles normal. Bowel: Diverticulosis of the proximal sigmoid and distal descending colon without wall thickening or pericolonic inflammatory change. No bowel obstruction. The appendix is not visualized. Large hiatal h ernia. Duodenal diverticulum at the level of the pancreatic head. Peritoneal cavity: Trace abdominal pelvic free fluid most prominently in the perihepatic and perisple urszula regions. No free intraperitoneal gas. 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 The appearance is not sig nificantly changed from prior. 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 There may be a loculated portion of the pleural effusi on along the right paraesophageal region versus a dilated lymphatic channel. Vasculature: Atherosclerosis with aneurysmal dilatation of the mid abdominal aorta both involving the level of the renal arteries and inferiorly. The aneurysm sac measures up to 6.2 x 4.4 cm in maximal axial dimension, previously 6.1 x 4.3 cm. No intramural high density to suggest hematoma. Stable degr ee of surrounding fat infiltration in the retroperitoneum. Abdominal wall: Diastasis of the rectus abdominis. Body wall edema. Musculoskeletal: Degenerative changes of the spine. Nondisplaced lateral left rib fractures suspected involving the seventh and eighth ribs. Motion artifact degrades evaluation of the pelvis. IMPRESSION: 1. No acute intra-abdominal injury. 2. Possible nondisplaced lateral left seventh and eighth rib fractures. Please see separately dictat ed CT of the chest. 3. Cardiomegaly with small bilateral pleural effusions. 4. Hepatic steatosis. 5. Possible choledocholithiasis as well as cholelithiasis. Correlate for symptomatology. 6. Diverticulosis. 7. 6.2 cm abdominal aortic aneurysm. 8. Additional findings as above. Electronically signed by: Klever Ramos M.D. 06/24/2018 3:38 PM
--- NOTE | 2018-06-24 16:39 | History & Physical Report ---
Date of Service June 24, 2018 Assessment & Plan (1) Fall: 87M with a PMHx of of AAA, HTN, CHF EF 25-30%, HTN, GERD, Afib presents to the ER for two recent falls and failure to thrive. # Falls 2/2 deconditioning vs cardiac Falls preceded by dizziness and sliding off his chair. Previous admissions show paroxysmal VTACH and discussions whether a Pacemaker is appropriate, pt has a loop recorder. We will interrogate Loop recorder. PT and OT recommendations. Last admission TILT table testing negative. # Acute CHF 2/2 severe Pulmonary HTN and right sided CHF Pt doesn't appear volume overloaded in the extremities, his scrotum however is swollen and his weight is up 10kg from his discharge 1 month ago. Standing scale weight of 94kg (DC weight was 84kg). He also has a new 4LNC O2 requirement. Will give 40mg IV lasix dose now and continue 60mg PO Lasix daily. From previous DC Summary pt admits to missing some Lasix dosings - safe to assume pt missed some doses. Hold TWIN, c/w BB, ASA and Statin. Pacer interrogation as above. Pt will likely need placement to help with medication compliance. ECHO (04/2018) - mildly dilated Left Ventricle , EF 55-60%, severely dilated right ventricle with mildly reduced systolic function severe biatrial dilation, severe mitral regurgitation, severe tricuspid reguritation, severe PULM HTN In light of echo findings above, consider NAM testing as outpatient. #Wheezing on exam Pt denies significant smoking history, I do see COPD on the problem list however patient denies this diagnosis, pt is not on any inhalers. Will give nebulizer treatment now, and then PRN afterwards and assess clinical response. #Afib On bb as above, and Xarelto. # Scrotal edema: Expect this to improve with diuresis. Root placed. # Hyperthyroidism: History of hyperthyroidism on methimazole and beta-josefina. TSH and FT4 were 1.85/0.8 on 05/13 (within normal). Continue beta-josefina and methimazole. Check TSH and Free T4 in AM. # Depression: Typically takes sertraline 50mg daily & Seroquel 50mg QHS. He appears to be clinically stable at this time. 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 Good blood pressure control and surveillance DVT prophylaxis: Xarelto FEN - Heart Healthy Dispo: Admit Tele. Dicharge planning for placement. - Pt agreable to this, may need to be snf if we cannot find an exact etiology. DNR - however ok for mechanical intubation should his breathing worsen. (2) Failure to thrive: (3) DVT prophylaxis: (4) AAA (abdominal aortic aneurysm): (5) CHF (congestive heart failure): (6) Hyperthyroidism: (7) Depression: History of Present Illness Primary Care Provider: Hakan Willingham 87M with a PMHx of of AAA, HTN, CHF EF 25-30%, HTN, GERD, Afib presents to the ER for two recent falls and "just not feeling himself" Pt was recently admitted for acute on chronic systolic CHF and discharged to a SNF. Pt has home health and reports his home nurse was telling him to go to the hospital. Pt reports his falls occured when he was sitting, the first fall was around 4am today, he felt dizzy and fell of his chair sideways. the 2nd fall was similar and he fell forward. Pt does have a loop recording from his previous admission. Pt has also come to the realization he cannot take care of himself at home he states. ROS: Pt states he hasn't been able to pee for a few days because his testicle is swollen. ER Course: Pt has a severe contrast allergy and was premedicated with Benadryl and Solu Medrol however he did not receive any contrast. CT Head, neck, Abdo pelvis are negative. Pt will be admitted for a fall and possible placement. 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 (Chronic ) Hyperthyroidism Lymphoma (Chronic) HTN (hypertension) (Chronic) CHF (congestive heart failure) (Chronic) EF 25-30% (May 14) Hypertension (Chronic) GERD (gastroesophageal reflux disease) (Chronic) Chronic obstructive pulmonary disease (Chronic) Depression (Chronic) Atrial fibrillation (Chronic) Cancer Stroke Allergies Allergy/AdvReac Type Severity Reaction Status Date / Time Iodinated Contrast- Oral and Allergy Severe ANAPHYLAXIS Verified 06/24/18 14:40 IV Dye Sulfa (Sulfonamide Allergy Unknown UNKNOWN Verified 06/24/18 14:40 Antibiotics) Home Medications Home Medications Medication Instructions Recorded Confirmed Type aspirin [Aspirin Childrens] 81 mg PO QAM 05/11/18 06/24/18 History atorvastatin 40 mg PO HS 05/11/18 06/24/18 History docusate sodium [Stool Softener] 100 mg PO AMHS 05/11/18 06/24/18 History ergocalciferol (vitamin D2) 50,000 unit PO WK 05/11/18 06/24/18 History [Vitamin D2] furosemide [Lasix] 60 mg PO QAM 05/11/18 06/24/18 History methimazole 5 mg PO HS 05/11/18 06/24/18 History metoprolol tartrate 25 mg PO BID 05/11/18 06/24/18 History pantoprazole 40 mg PO UD 05/11/18 06/24/18 History quetiapine 50 mg PO HS 05/11/18 06/24/18 History rivaroxaban [Xarelto] 15 mg PO PM 05/11/18 06/24/18 History sertraline 50 mg PO QAM 05/11/18 06/24/18 History lisinopril 5 mg PO DAILY #30 tab 05/18/18 06/24/18 Rx nitroglycerin [Nitrostat] 0.4 mg SUBLINGUAL UD PRN #30 tab 05/18/18 06/24/18 Rx Past Med/Surg History Medical History Cholelithiasis 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 (Chronic ) Hyperthyroidism Lymphoma (Chronic) HTN (hypertension) (Chronic) CHF (congestive heart failure) (Chronic) EF 25-30% (May 14) Hypertension (Chronic) GERD (gastroesophageal reflux disease) (Chronic) Chronic obstructive pulmonary disease (Chronic) Depression (Chronic) Atrial fibrillation (Chronic) Cancer lYMPHOMA Congestive heart failure Stroke Surgical History History of cardiac cath Family History Unknown Heart attack Social History Current Living Situation: Alone Feels Safe at Home: Yes Smoking Status: Never smoker Second Hand Exposure: No Hx Alcohol Use: No Hx Substance Use: No Beliefs That Will Affect Care: None Preferred Language: [place] Visual Impairment: Partially Limited Physical Exam 2 Vital Signs (Past 24 Hours): Last Vital Signs Temp 36.6 C 06/24/18 13:48 Pulse 83 06/24/18 15:52 Resp 26 H 06/24/18 15:52 BP 137/104 H 06/24/18 15:52 Pulse Ox 92 06/24/18 15:52 Respiratory: no labored breathing and no cough Auscultation: + wheezes ( faint expiratory wheezing bilaterally, otherwise lungs clear to ausculation, no respiratory distress) Cardiovascular: RRR, no murmur, no edema (irregular irregular, no murmurs rubs or gallos, loop recording subcutaneous on left) Vessels: no JVD Extremities: no calf tenderness, no pedal edema and no edema Gastrointestinal (Abdomen): normal bowel sounds, soft, nontender, no hepatosplenomegaly Inspection/Auscultation: abdomen normal to inspection and + abdomen distended Percussion/Palpation: abdomen soft; abdomen nontender, no guarding and abdomen not rigid Musculoskeletal: no cyanosis or clubbing, extremities motor strength 5/5 Head/Neck/Chest: + head abnormal to inspection, normocephalic and head atraumatic Extremities: extremities normal to inspection and strength 5/5 throughout Skin: + lesion (ecchymosis over left big toe) Neurologic: patellar DTR's 2+ bilat, sensation intact and PERRL, EOMI, accommodation nl, no face palsy, no dysarthria Psychiatric: A+Ox3, euthymic affect Orientation: alert, oriented x 3, oriented to person, oriented to place and oriented to time Supervising Physician Co-Signing Physician Notes I personally examined the patient and verified all tobias points of history and exam, discussed case, and agree with decision making with Dr Varela fell again several times today feels weak agrees that he probably is not safe independent right now and notes having had a fairly good experience at [facility]; later however notes that he wants to be out in his yard/garden again in the spring working on his garden/plants. then yet again later, he notes that he's not sure if she should give up his apt he's paying for at [employer]. notes that he has always been a strong lacie, but now feels like his life is hanging on by a thread. in discussing code status, he ntoes he would not want shocks/chest compressions for a cardiac arrest, but notes that before in [place] "they violated my advanced directives - they called my dtr because they said they needed to put a tube down to [facility]" -- but then in asking if he would not want intubed now, he loosely answers "i don't care" and in asking to clarify this would actually want intubated if need arose. vitals noted nad breathing mildly labored on O2 no accessory muscles. skin no rashes pallor or icterus. EKG noted no ischemic changes. labs overall stable, Cr sl higher than baseine, near identical to most recent check falls/syncope - orthostasis > rhythm. check orthostatics, follow and/or adjust BP meds as possible. check loop recorder acute on chronic systolic CHF - seems mild. additional lasix x1, follow weakness/deconditioning - PT/OT - at least for now appears he'll need some form of placement. DVT proph - xarelto _ (1) CHF (congestive heart failure) Heart failure chronicity: acute Heart failure type: systolic Qualified Code( s): I50.21 - Acute systolic (congestive) heart failure (2) Failure to thrive Failure to thrive age range: in adult Qualified Code(s): R62.7 - Adult failure to thrive (3) Depression Depression Type: unspecified Major depression recurrence: Active/Remission status: Major depression episode severity: Psychotic features: Trimester: Qualified Code(s): F32.9 - Major depressive disorder, single episode, unspecified
[2018-06-24 17:20] LABS: Appearance Urine Clear (Clear); Bacteria Urine Automated Negative (Negative); Bilirubin Urine Negative (Negative); Color Urine Dark Yellow; Epithelial Cell Urine Auto 0-5 /lpf (0-5); Glucose Urine UA Negative (Negative); Ketones Urine Trace (Negative); Leukocyte Esterase Urine Negative (Negative); Nitrite Urine Negative (Negative); Protein Urine 1+ (Negative); Specific Gravity Urine 1.024 (1.000-1.030); Urobilinogen Urine Negative (Negative); pH Urine 5.5 (4.5-7.5)
--- NOTE | 2018-06-24 19:49 | Emergency Department Note ---
Entered by Concepcion Alcazar acting as a scribe for History of Present Illness General Chief complaint: Fall Source: patient and EMS Mode of arrival: EMS Limitations: no limitations History of Present Illness Onset (ago): hour(s) greater than 10 Radiation: non-radiation Pain Consistency: + now resolved Relieved By: + none Associated symptoms: + other (+abdominal pain, +neck pain) The patient is a an 87 year old white male w/ PMHx of COPD and CHF who presents to the ED w/ CC of increased falls beginning yesterday. He was brought to the ED via EMS. EMS reports the patient lives by himself and fell multiple times yesterday, then this morning around 0300. EMS states his O2 was in the 80�s on RA. The patient does not remember his recent falls. He complains of neck pain and mid abdominal pain and admits to a 3 pound weight gain since yesterday. EMS notes he has a history of weight gain with CHF. The patient also complains of some bruising on his chest and left first toe. Home Medications Home Medications Medication Instructions Recorded Confirmed Type aspirin [Aspirin Childrens] 81 mg PO QAM 05/11/18 06/24/18 History atorvastatin 40 mg PO HS 05/11/18 06/24/18 History docusate sodium [Stool Softener] 100 mg PO AMHS 05/11/18 06/24/18 History ergocalciferol (vitamin D2) 50,000 unit PO WK 05/11/18 06/24/18 History [Vitamin D2] furosemide [Lasix] 60 mg PO QAM 05/11/18 06/24/18 History methimazole 5 mg PO HS 05/11/18 06/24/18 History metoprolol tartrate 25 mg PO BID 05/11/18 06/24/18 History pantoprazole 40 mg PO UD 05/11/18 06/24/18 History quetiapine 50 mg PO HS 05/11/18 06/24/18 History rivaroxaban [Xarelto] 15 mg PO PM 05/11/18 06/24/18 History sertraline 50 mg PO QAM 05/11/18 06/24/18 History lisinopril 5 mg PO DAILY #30 tab 05/18/18 06/24/18 Rx nitroglycerin [Nitrostat] 0.4 mg SUBLINGUAL UD PRN #30 tab 05/18/18 06/24/18 Rx Allergies Allergy/AdvReac Type Severity Reaction Status Date / Time Iodinated Contrast- Oral and Allergy Severe ANAPHYLAXIS Verified 06/24/18 14:40 IV Dye Sulfa (Sulfonamide Allergy Unknown UNKNOWN Verified 06/24/18 14:40 Antibiotics) Past Med/Surg History Medical History Cholelithiasis 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 (Chronic ) Hyperthyroidism Lymphoma (Chronic) HTN (hypertension) (Chronic) CHF (congestive heart failure) (Chronic) EF 25-30% (May 14) Hypertension (Chronic) GERD (gastroesophageal reflux disease) (Chronic) Chronic obstructive pulmonary disease (Chronic) Depression (Chronic) Atrial fibrillation (Chronic) Cancer lYMPHOMA Congestive heart failure Stroke Surgical History History of cardiac cath Family History Unknown Heart attack Social History Current Living Situation: Alone Other Information That Helps Us Care for You: No Feels Safe at Home: Yes Safety Concerns: Feels Safe At This Time Smoking Status: Former smoker Second Hand Exposure: No Hx Alcohol Use: No Hx Substance Use: No Beliefs That Will Affect Care: None Preferred Language: Urdu Communication Ability: Effective Shipfitter Required: No Physical Exam Vital Signs Vital Signs - 24 hr 06/24/18 13:48 06/24/18 13:54 06/24/18 14:01 Temperature 36.6 C Temperature Source Oral Sepsis Recent Fever Within 48 Hours No Sepsis New/Unexplained Change in Mental Status No Sepsis Action Taken by Nursing No Action Required Pulse Rate 76 83 83 Pulse Rate [Apical] Pulse Rhythm Regular Respiratory Rate 20 20 29 H Blood Pressure 145/96 H 141/91 H Blood Pressure [Left Arm] Blood Pressure Mean 112 107 Blood Pressure Mean [Left Arm] Pulse Oximetry 93 94 97 Oxygen Delivery Method Room Air Room Air Oxygen Flow Rate 06/24/18 14:30 06/24/18 15:52 06/24/18 16:01 Temperature Temperature Source Sepsis Recent Fever Within 48 Hours Sepsis New/Unexplained Change in Mental Status Sepsis Action Taken by Nursing Pulse Rate 75 82 Pulse Rate [Apical] 83 Pulse Rhythm Respiratory Rate 20 26 H 21 Blood Pressure 149/96 H 145/104 H Blood Pressure [Left Arm] 137/104 H Blood Pressure Mean 113 117 Blood Pressure Mean [Left Arm] 115 Pulse Oximetry 95 92 92 Oxygen Delivery Method Nasal Cannula Nasal Cannula Oxygen Flow Rate 4 4 06/24/18 16:30 06/24/18 16:31 06/24/18 17:01 Temperature Temperature Source Sepsis Recent Fever Within 48 Hours Sepsis New/Unexplained Change in Mental Status Sepsis Action Taken by Nursing Pulse Rate 93 H 97 H Pulse Rate [Apical] Pulse Rhythm Respiratory Rate 22 18 Blood Pressure 150/97 H 142/99 H Blood Pressure [Left Arm] Blood Pressure Mean 114 113 Blood Pressure Mean [Left Arm] Pulse Oximetry 94 94 Oxygen Delivery Method Nasal Cannula Nasal Cannula Oxygen Flow Rate 4 06/24/18 17:31 06/24/18 17:50 06/24/18 18:00 Temperature Temperature Source Sepsis Recent Fever Within 48 Hours Sepsis New/Unexplained Change in Mental Status Sepsis Action Taken by Nursing Pulse Rate 87 90 Pulse Rate [Apical] Pulse Rhythm Respiratory Rate 17 26 H 22 Blood Pressure 144/101 H Blood Pressure [Left Arm] Blood Pressure Mean 115 Blood Pressure Mean [Left Arm] Pulse Oximetry 93 88 L 95 Oxygen Delivery Method Room Air Oxygen Flow Rate 06/24/18 18:01 06/24/18 18:30 06/24/18 18:31 Temperature Temperature Source Sepsis Recent Fever Within 48 Hours Sepsis New/Unexplained Change in Mental Status Sepsis Action Taken by Nursing Pulse Rate 88 92 H 93 H Pulse Rate [Apical] Pulse Rhythm Respiratory Rate 23 18 26 H Blood Pressure 156/104 H 130/85 Blood Pressure [Left Arm] Blood Pressure Mean 121 100 Blood Pressure Mean [Left Arm] Pulse Oximetry 94 92 94 Oxygen Delivery Method Nasal Cannula Nasal Cannula Oxygen Flow Rate 4 4 GENERAL: Well appearing, well nourished, NAD, non-toxic. EYE EXAM: Normal conjunctiva. Gross vision intact. PERRL, no anisocoria and EOM' s grossly intact w/o pain OROPHARYNX: No exudate, posterior pharynx is clear, no tonsillar/uvular deviation or swelling. NECK: Supple, no nuchal rigidity, no adenopathy, non-tender. no signs of meningismus. LUNGS: Clear to auscultation bilaterally. Normal chest wall mechanics. CHEST: Little bit of bruising to the left chest, no crepitus or pain. HEART: NSR, no MRG. ABDOMEN: Mild abdominal distension, mild diffuse pain, normo-active bowel sounds , no masses, no rebound or guarding. BACK: No CVA TTP. SKIN: No rashes and no bruising. UPPER EXTREMITIES: Upper extremities are grossly normal. LOWER EXTREMITIES: No pitting edema. No calf pain. Some bruising and pain to left first toe. NEURO EXAM: Cranial nerves II-XII grossly intact, normal speech, 5/5 strength in b/l upper and lower extremities, moves all 4 extremities on command w/o issue. Course 1344: Past medical records reviewed. The patient was evaluated in room C9, and a complete history and physical examination were performed. 1610: I discussed the patients case with Marianne Muir [facility]-C[facility] The patient will be further evaluated. Consultations Consultation #1: I discussed the patients case with [facility] The patient will be further evaluated. Time: 16:10 Administered Medications Discontinued Medications Diphenhydramine HCl (Benadryl) 12.5 mg IV NOW STA Stop: 06/24/18 14:17 Last Admin: 06/24/18 14:25 Dose: 12.5 mg Methylprednisolone (Solumedrol) 125 mg IV NOW STA Stop: 06/24/18 14:17 Last Admin: 06/24/18 14:25 Dose: 125 mg Morphine Sulfate (Morphine Sulfate) 4 mg IV NOW STA Stop: 06/24/18 13:52 Last Admin: 06/24/18 14:16 Dose: 4 mg Medical Decision Making Medical Records Attestation: I reviewed the patient's medical records. Home Medications Current Medication List: was personally reviewed by me Laboratory Data Attestation: I reviewed the patient's lab results. Result diagrams: 06/24/18 13:00 06/24/18 13:00 Lab Results 06/24/18 06/24/18 06/24/18 Range/Units 13:00 13:00 13:00 WBC 7.54 (4.8-10.8) K/uL RBC 4.24 L (4.7-6.1) M/uL Hgb 10.1 L (14.0-18.0) g/dL Hct 33.4 L (42-52) % MCV 78.8 L (80-100) fL MCH 23.8 L (25-34) pg MCHC 30.2 L (32-36) g/dL RDW Std Deviation 50.1 H (36.4-46.3) fL RDW Coeff of Jennifer 17.6 H (11.5-14.5) % Plt Count 170 (130-400) K/uL MPV 10.3 (7.4-10.4) fL Immature Gran % (Auto) 0.3 % Neut % (Auto) 56.8 % Lymph % (Auto) 21.8 % Catron % (Auto) 17.0 % Eos % (Auto) 3.8 % Baso % (Auto) 0.3 % Immature Gran # (Auto) 0.02 (0.00-0.02) K/uL Neut # (Auto) 4.29 (1.4-6.5) K/uL Lymph # (Auto) 1.64 (1.2-3.4) K/uL Catron # (Auto) 1.28 H (0.11-0.59) K/uL Eos # (Auto) 0.29 (0-0.5) K/uL Baso # (Auto) 0.02 (0-0.2) K/uL PT 12.3 H (9.0-12.0) Seconds INR 1.2 H (0.9-1.1) APTT 27.5 (21.0-31.0) Seconds PTT Ratio 1.1 Sodium 141 (136-145) mmol/L Potassium 3.8 (3.5-5.1) mmol/L Chloride 106 (98-107) mmol/L Carbon Dioxide 28 (21-32) mmol/L Anion Gap 7.0 (3-11) BUN 22 H (7-18) mg/dl Creatinine 1.41 H (0.6-1.4) mg/dl Est Cr Clr Drug Dosing 47.3 ml/min Est GFR ( Amer) 52.3 Est GFR (Non-Af Amer) 45.1 BUN/Creatinine Ratio 15.7 (10-20) Glucose 85 (70-99) mg/dl Calcium 8.1 L (8.5-10.1) mg/dl Total Bilirubin 0.9 (0.1-1) mg/dl AST 34 (15-37) U/L ALT 21 (12-78) U/L Alkaline Phosphatase 151 H (45-117) U/L Troponin I 0.035 (0-0.045) ng/ml NT-Pro-B Natriuret Pep 5035 H (0-1800) pg/ml Total Protein 6.9 (6.4-8.2) gm/dl Albumin 3.2 L (3.4-5.0) gm/dl Globulin 3.7 (2.5-4.0) gm/dl Albumin/Globulin Ratio 0.9 (0.9-2) Urine Color Urine Appearance (Clear) Urine pH (4.5-7.5) Ur Specific Novi (1.000-1.030) Urine Protein (Negative) Urine Glucose (UA) (Negative) Urine Ketones (Negative) Urine Blood (Negative) Urine Nitrite (Negative) Urine Bilirubin (Negative) Urine Urobilinogen (Negative) Ur Leukocyte Esterase (Negative) Urine WBC (Auto) (0-5) /hpf Urine RBC (Auto) (0-4) /hpf U Hyaline Cast (Auto) (0-5) /lpf U Epithel Cells (Auto) (0-5) /lpf Urine Bacteria (Auto) (Negative) 06/24/18 Range/Units 16:50 WBC (4.8-10.8) K/uL RBC (4.7-6.1) M/uL Hgb (14.0-18.0) g/dL Hct (42-52) % MCV (80-100) fL MCH (25-34) pg MCHC (32-36) g/dL RDW Std Deviation (36.4-46.3) fL RDW Coeff of Jennifer (11.5-14.5) % Plt Count (130-400) K/uL MPV (7.4-10.4) fL Immature Gran % (Auto) % Neut % (Auto) % Lymph % (Auto) % Catron % (Auto) % Eos % (Auto) % Baso % (Auto) % Immature Gran # (Auto) (0.00-0.02) K/uL Neut # (Auto) (1.4-6.5) K/uL Lymph # (Auto) (1.2-3.4) K/uL Catron # (Auto) (0.11-0.59) K/uL Eos # (Auto) (0-0.5) K/uL Baso # (Auto) (0-0.2) K/uL PT (9.0-12.0) Seconds INR (0.9-1.1) APTT (21.0-31.0) Seconds PTT Ratio Sodium (136-145) mmol/L Potassium (3.5-5.1) mmol/L Chloride (98-107) mmol/L Carbon Dioxide (21-32) mmol/L Anion Gap (3-11) BUN (7-18) mg/dl Creatinine (0.6-1.4) mg/dl Est Cr Clr Drug Dosing ml/min Est GFR ( Amer) Est GFR (Non-Af Amer) BUN/Creatinine Ratio (10-20) Glucose (70-99) mg/dl Calcium (8.5-10.1) mg/dl Total Bilirubin (0.1-1) mg/dl AST (15-37) U/L ALT (12-78) U/L Alkaline Phosphatase (45-117) U/L Troponin I (0-0.045) ng/ml NT-Pro-B Natriuret Pep (0-1800) pg/ml Total Protein (6.4-8.2) gm/dl Albumin (3.4-5.0) gm/dl Globulin (2.5-4.0) gm/dl Albumin/Globulin Ratio (0.9-2) Urine Color Dark Yellow Urine Appearance Clear (Clear) Urine pH 5.5 (4.5-7.5) Ur Specific Novi 1.024 (1.000-1.030) Urine Protein 1+ H (Negative) Urine Glucose (UA) Negative (Negative) Urine Ketones Trace H (Negative) Urine Blood Negative (Negative) Urine Nitrite Negative (Negative) Urine Bilirubin Negative (Negative) Urine Urobilinogen Negative (Negative) Ur Leukocyte Esterase Negative (Negative) Urine WBC (Auto) 1-5 (0-5) /hpf Urine RBC (Auto) 0-4 (0-4) /hpf U Hyaline Cast (Auto) 1-5 (0-5) /lpf U Epithel Cells (Auto) 0-5 (0-5) /lpf Urine Bacteria (Auto) Negative (Negative) Imaging Data Radiologist's Impression: Radiology results as stated below per my review and the radiologist's interpretation: XR foot LT min 3V routine CLINICAL HISTORY: L foot, 1st toe pain COMPARISON: None. DISCUSSION: No acute fractures are visualized. There are flexion deformities of the third through fifth toes. There is a plantar calcaneal spur. There is no erosive disease. There are minor degenerative changes. IMPRESSION: 1. No acute fractures 2. No erosive or destructive changes are visualized. Electronically signed by: Ganesh Dimas M.D. 06/24/2018 2:[address] head/brain wo con CLINICAL HISTORY: 87 years-old Male presenting with s/p fall on xarelto. TECHNIQUE: Multidetector CT imaging of the head was performed without the use of intravenous contrast. IV contrast: None. A dose lowering technique was used consistent with the principles of ALARA (as low as reasonably achievable). COMPARISON: 07/18/2017. CT DOSE (mGy.cm): The estimated cumulative dose is 3198.33. FINDINGS: Architectural Sales Consultant topogram: Unremarkable. Proportional ventricular and sulcal prominence, likely age-related parenchymal volume loss. No hemorrhage. Periventricular and subcortical white matter hypoattenuation, nonspecific but likely indicative of chronic small vessel ischemic change. Limited old cortical infarct in the left parietal lobe is again suggested. No acute territorial infarct. No mass effect or midline shift. No extra-axial fluid collection. Paranasal sinuses and mastoid air cells clear. Calvarium intact. Bilateral koi lenses are absent. IMPRESSION: 1. No significant change compared to the prior study. No acute intracranial abnormality. Electronically signed by: Klever Ramos M.D. 06/24/2018 3:[address] chest wo con CT DOSE: HISTORY: s/p fall on xarelto N NO CONTRAST PER DR BEY, ANAPHALAXIS TECHNIQUE: Multiaxial CT images of the chest were performed without contrast. A dose lowering technique was utilized adhering to the principles of ALARA. COMPARISON: Chest CT 06/13/2013. FINDINGS: There is respiratory motion artifact. The central airways appear patent. No pneumothorax. Punctate calcified granuloma within the right upper lobe. Bibasilar interstitial thickening which is likely chronic. Small amount of consolidation within the bases of the lower lobes suggestive of atelectasis. Multinodular thyroid gland is again noted. Cholelithiasis. Trace perihepatic fluid. Moderate hiatus hernia. A few prominent mediastinal lymph nodes are noted. No hilar lymphadenopathy. The heart is moderately enlarged. No pericardial effusion. Small bilateral pleural effusions. The main pulmonary artery is dilated measuring up to 5 cm. This is consistent with pulmonary arterial hypertension. No mediastinal hematoma. A few old, healed left anterior fractures. No acute fractures within the visualized osseous structures of the chest. Minimal superimposing compression deformities at T4 and T5. These are likely old. IMPRESSION: 1. No acute traumatic process within the chest. 2. Cardiomegaly and pulmonary hypertension. 3. Small bilateral pleural effusions. 4. Moderate hiatus hernia. 5. Mildly enlarged mediastinal lymph nodes. 6. Additional findings as described above. Electronically signed by: Marty Do M.D. 06/24/2018 3:[address] DOSE: HISTORY: Neck pain. s/p fall on xarelto TECHNIQUE: Multiaxial CT images of the cervical spine were performed and reformatted in the sagittal and coronal plane without the use of contrast. A dose lowering technique was utilized adhering to the principles of ALARA. COMPARISON: Cervical spine CT 07/18/2017. FINDINGS: No fractures. No subluxation. Prevertebral soft tissues and the C1-C2 interval are intact. No pneumothorax. Multinodular thyroid. Dominant nodule within the left thyroid lobe measures 3.5 cm. This remains unchanged. Multilevel degenerative changes are again noted with multiple fused facets. IMPRESSION: No fractures within the cervical spine. Electronically signed by: Marty Do M.D. 06/24/2018 3:[address] abd pelvis wo con CLINICAL HISTORY: 87 years-old Male presenting with fall, on Xarelto, mid lower back pain. TECHNIQUE: Multidetector CT of the abdomen and pelvis was performed without the use of intravenous contrast. IV contrast: None. A dose lowering technique was used consistent with the principles of ALARA (as low as reasonably achievable). COMPARISON: 04/12/2018. CT DOSE (mGy.cm): The estimated cumulative dose is 3198.33 mGy.cm. FINDINGS: Architectural Sales Consultant topogram: Cardiomegaly. Lung bases: Subpleural reticulation. Dependent consolidation and groundglass opacities likely atelectasis. This is in part passive atelectasis given the presence of the bilateral small pleural effusions. Multichamber enlargement of the heart. Coronary artery calcification. No pericardial effusion. Liver: Normal morphology. Density consistent with hepatic steatosis. Several well-defined hypodensities in the liver likely hepatic cysts or hamartomas. These were better evaluated on the prior exam with intravenous contrast. These are unchanged. Biliary: No gross biliary ductal dilatation allowing for noncontrast technique. However, gallstones are suspected within the proximal portion of the common duct (series 13 image 133). Some degree of choledocholithiasis may in retrospect have been present on the prior exam. Gallbladder contains gallstones. The gallbladder is physiologically distended. Pancreas: Moderate parenchymal atrophy. Spleen: Normal noncontrast appearance. Adrenal glands: Normal noncontrast appearance. Kidneys and ureters: Cortical atrophy is suggested in the right kidney. Well- defined 3 cm hypodensity in the right kidney likely cyst. Moderate bilateral perinephric fat stranding, nonspecific. No nephrolithiasis or hydronephrosis. Ureters nondistended. The right kidney may have a duplicated collecting system. Bladder: Circumferential bladder wall thickening. Pelvic organs: Prostate and seminal vesicles normal. Bowel: Diverticulosis of the proximal sigmoid and distal descending colon without wall thickening or pericolonic inflammatory change. No bowel obstruction. The appendix is not visualized. Large hiatal hernia. Duodenal diverticulum at the level of the pancreatic head. Peritoneal cavity: Trace abdominal pelvic free fluid most prominently in the perihepatic and perisplenic regions. No free intraperitoneal gas. 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 The appearance is not significantly changed from prior. 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 There may be a loculated portion of the pleural effusion along the right paraesophageal region versus a dilated lymphatic channel. Vasculature: Atherosclerosis with aneurysmal dilatation of the mid abdominal aorta both involving the level of the renal arteries and inferiorly. The aneurysm sac measures up to 6.2 x 4.4 cm in maximal axial dimension, previously 6.1 x 4.3 cm. No intramural high density to suggest hematoma. Stable degree of surrounding fat infiltration in the retroperitoneum. Abdominal wall: Diastasis of the rectus abdominis. Body wall edema. Musculoskeletal: Degenerative changes of the spine. Nondisplaced lateral left rib fractures suspected involving the seventh and eighth ribs. Motion artifact degrades evaluation of the pelvis. IMPRESSION: 1. No acute intra-abdominal injury. 2. Possible nondisplaced lateral left seventh and eighth rib fractures. Please see separately dictated CT of the chest. 3. Cardiomegaly with small bilateral pleural effusions. 4. Hepatic steatosis. 5. Possible choledocholithiasis as well as cholelithiasis. Correlate for symptomatology. 6. Diverticulosis. 7. 6.2 cm abdominal aortic aneurysm. 8. Additional findings as above. Electronically signed by: Klever Ramos M.D. 06/24/2018 3:38 PM ECG Data Attestation: I personally reviewed and interpreted this ECG as follows: Indication: weakness Rate (beats per minute): 76 Rhythm: atrial fibrillation Findings: + other (wide QRS, TWI in V1 through V4, questionable elevation in lead 3) and + RBBB Comparison ECG Date: from (05/15/2018) Change: the following changes noted (TWI is old when compared to EKG from 2017, likely related to previous morphology) Blood Pressure Blood Pressure Findings: Elevated blood pressure Blood Pressure Disposition: further management by hospitalist JB Narrative The patient is a an 87 year old white male w/ PMHx of COPD and CHF who presents to the ED w/ CC of increased falls beginning yesterday. Differential diagnoses include major intracranial, cervical, spinal, thoracic, abdominal, pelvic and neurologic injury. Fracture, contusion, sprain, strain, laceration, abrasions included as well. Patient was seen and evaluated the bedside. The patient did present from home. Of note the patient did have multiple falls yesterday as well as today. The patient is on Xarelto. The patient does have some back pain abdominal discomfort left foot pain. Patient is a no x3 with a GCS of 15 and does follow commands. Patient did have blood work completed along with CT scans of the head neck chest abdomen pelvis. These were done without contrast as the patient does have an allergic reaction. Patient's blood work did show mildly elevated BNP as well as chronic kidney disease but no big changes. The patient's EKG is unchanged. The patient's troponin is not elevated. I did review the patient's most recent discharge summary which showed that the patient did have an echo performed in April 2017 that showed an EF of 20-30%. There was a noted ANDREW in April and unsure as to whether this is May 132017 or April 2016. The function was improved whenever this was completed. I did relate to the on-call hospitalist that the patient does not look overtly volume overloaded and the patient is not in respiratory distress. Patient apparently did have a loop recorder that was implanted during his last inpatient visit. I did discuss observation under telemetry and likely reviewing the patient's loop recorder. As stated that he is high risk given his recurrent syncope. I also did relate that I did review the patient's visit to [facility] yesterday and the patient had been discharged after a fairly negative workup at that time. Patient was admitted to the medicine service. Impression & Plan Syncope Discharge Plan Visit Data Chief Complaint: Fall ED Provider: Aguilar Bey Discharge Problem: Syncope Patient Disposition: Being Evaluated by Hospitalist Forms Stand Alone Forms: My [facility] Prescriptions Prescriptions: No Action furosemide [Lasix] 40 mg Tablet 60 mg PO QAM RF: 0 atorvastatin 40 mg Tablet 40 mg PO HS RF: 0 pantoprazole 40 mg Tablet,Delayed Release (Dr/Ec) 40 mg PO UD RF: 0 metoprolol tartrate 50 mg Tablet 25 mg PO BID RF: 0 methimazole 5 mg Tablet 5 mg PO HS RF: 0 docusate sodium [Stool Softener] 100 mg Capsule 100 mg PO AMHS RF: 0 aspirin [Aspirin Childrens] 81 mg Tablet,Chewable 81 mg PO QAM RF: 0 ergocalciferol (vitamin D2) [Vitamin D2] 50,000 unit Capsule 50,000 unit PO WK RF: 0 sertraline 50 mg Tablet 50 mg PO QAM RF: 0 quetiapine 50 mg Tablet 50 mg PO HS RF: 0 rivaroxaban [Xarelto] 15 mg Tablet 15 mg PO PM RF: 0 nitroglycerin [Nitrostat] 0.4 mg Tablet, Sublingual 0.4 mg Sublingual UD PRN (Reason: chest pain) Qty: 30 RF: 0 lisinopril 5 mg tablet 5 mg PO DAILY Qty: 30 RF: 0 Referrals Referrals: Hakan Willingham [Primary Care Provider] - The scribe's documentation has been prepared under my direction and personally reviewed by me in its entirety. I confirm that the note above accurately reflects all work, treatment, procedures, and medical decision making performed by me.
[2018-06-24] MEDS ORDERED: ZOLPIDEM TARTRATE 5 MG TAB PO PRN (21:24)
[2018-06-24] MEDS ORDERED: ALUMINUM/MAGNESIUM SUSP 30 ML UDC PO PRN (21:24)
[2018-06-24] MEDS ORDERED: ALBUT/IPRATROP 3MG/0.5MG NEB 3 ML VIAL NEB STA (21:24)
[2018-06-24] MEDS ORDERED: ALBUT/IPRATROP 3MG/0.5MG NEB 3 ML VIAL NEB PRN (21:24)
[2018-06-24] MEDS ORDERED: NITROGLYCERIN SL 0.4 MG/TAB TAB SL PRN (21:24)
[2018-06-24] MEDS ORDERED: FUROSEMIDE 40 MG/4 ML VIAL IV STA (21:24)
[2018-06-24] MEDS ORDERED: FUROSEMIDE 40 MG in SYRINGE 0 ML IV SCH (21:45)
[2018-06-24] MEDS: ATORVASTATIN 40 MG TAB PO SCH (22:23)
[2018-06-24] MEDS: DOCUSATE SODIUM 100 MG CAP PO SCH (22:24)
[2018-06-24] MEDS: METOPROLOL TARTRATE 50 MG TAB PO SCH (22:24)
[2018-06-24] MEDS: methIMAzole 5 MG TABLET PO SCH (22:25)
[2018-06-24] MEDS: RIVAROXABAN 15 MG TAB PO SCH (22:25)
[2018-06-24] MEDS: QUETIAPINE FUMARATE 25 MG TABLET PO SCH (22:26)
[2018-06-24] MEDS: POLYETHYLENE (MIRALAX) 17 GM PACK PO PRN (23:35)
--- NOTE | 2018-06-25 07:00 | Family Medicine Progress Note ---
Date of Service June 25, 2018 Assessment & Plan (1) Fall: 87M with a PMHx of of AAA, HTN, CHF EF 25-30%, HTN, GERD, Afib presents to the ER for two recent falls and failure to thrive. # Falls 2/2 deconditioning vs cardiac Falls preceded by dizziness and sliding off his chair. Previous admissions show paroxysmal VTACH and discussions whether a Pacemaker is appropriate, pt has a loop recorder. Loop interrogated - multiple activations, per cards no acute pathology that can explain pt's falls. Last admission TILT table testing negative. per cards - no obvious cards etiology for falls, will likely need terminal clerk placement. PT/OT #1hr episode of chest pain at rest. No EKG changes, Trop 0.02x 1 , will repeat at 4pm on 06/25/18. # Acute CHF on Chronic Systolic CHF Pt doesn't appear volume overloaded in the extremities, his scrotum however is swollen and his weight is up 10kg from his discharge 1 month ago. Standing scale weight of 94kg (DC weight was 84kg). He also has a new 4LNC O2 requirement. Continue home 60mg PO Lasix daily and track daily weights. From previous DC Summary pt admits to missing some Lasix dosings - safe to assume pt missed some doses. Hold TWIN, c/w Metoprolol 25mg PO BID, [id number] daily and Lipitor Pacer interrogation as above. ECHO (04/2018) - mildly dilated Left Ventricle , EF 55-60%, severely dilated right ventricle with mildly reduced systolic function severe biatrial dilation, severe mitral regurgitation, severe tricuspid reguritation, severe PULM HTN In light of echo findings above, consider NAM testing as outpatient. #Wheezing on exam Pt denies significant smoking history, I do see COPD on the problem list however patient denies this diagnosis, pt is not on any inhalers. Do not see any COPD history in chart review from [facility]. Will give nebulizer treatment now, and see how patient responds. #Afib On metoprolol 25mg po BID, and Xarelto. # Scrotal edema: Expect this to improve with diuresis. Root placed. # Hyperthyroidism: History of hyperthyroidism on methimazole and beta-josefina. TSH and FT4 were 1.85/0.8 on 05/13 (within normal). Continue beta-josefina and methimazole. TSH WNL, Free T4 is 0.78 - will not change any meds at this point. # Depression: Typically takes sertraline 50mg daily & Seroquel 50mg QHS. He appears to be clinically stable at this time. 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 Good blood pressure control and surveillance DVT prophylaxis: Xarelto for afib. FEN - [facility] PT / OT consulted - in current condition with multiple ER visits and admissions , and questionable med compliance with Lasix - cannot imagine pt OK safe to return home. Discharge planning for placement. - Pt agreeable to this, he does lament the loss of independence such as driving, likely needs terminal clerk placement. DNR - however ok for mechanical intubation should his breathing worsen. (2) Failure to thrive: (3) DVT prophylaxis: (4) AAA (abdominal aortic aneurysm): (5) CHF (congestive heart failure): (6) Hyperthyroidism: (7) Depression: Supervising Physician Co-Signing Physician Notes I personally examined the patient and verified all tobias points of history and exam, discussed case, and agree with decision making with Dr Varela. He has left-sided chest pain when to come in the room. He appears uncomfortable but not short of breath. He is mostly rubbing his chest and grimacing slightly. He is a somewhat difficult historian, and it is hard to get him to describe the quality of the pain he obviously is locating it from the mid nipple line laterally approximately the ribs 6 and 7 region, he notes that it comes and goes randomly and has not been a 0 for quite a while, although it is very difficult to tell how long that is. And despite lots of lines of questioning I cannot get him to really give me a good quality of it other than describing it is not sharp and stabbing. vitals noted nad breathing unlabored on O2 no accessory muscles. He has a bit of a bruise just under his nipple on the left side right near where his pain is , but the pain itself is not directly reproducible or palpable, and he does not appear to have much of any significant rib somatic dysfunction. Skin no rashes pallor or icterus. EKG noted no ischemic changes some T waves that were inverted are now upright. labs noted. troponin pending Chest pain�the way he is rubbing his chest and where it is this appears to be most likely muscular, however it is not reproducible he has a hard time describing the quality, therefore EKG and troponins to be safe. Rib films as well given that he is frail and came in with a fall. falls/syncope - orthostasis > rhythm. Continue to adjust blood pressure meds, cardiology input noted and appreciated. acute on chronic systolic CHF - seems mild. Follow weakness/deconditioning - PT/OT - at least for now appears he'll need some form of placement. DVT proph - xarelto Subjective Pt was seen and examined at bedside. No acute overnight events. Still has an oxygen requirement. Dyspneic on exertion. Tolerating PO. Weight is down 2kg from yesterday evening on admission. Update: Pt reports squeezing chest pain that started at 9am and lasted for 1hr, occured at rest, non radiating, occurs about once a month, went away on its own, nothing makes it worse or better that occured at rest. Trop obtained at 10am which was downtrending. No EKG changes * ROS: No chest pain, no palpitations, no fevers, no chills, no nausea, no vomiting, no diarrhea, no dysuria, no rash. Physical Exam 2 Vital Signs (Past 24 Hours): Last Vital Signs Temp 36.5 C 06/25/18 03:36 Pulse 78 06/25/18 03:36 Resp 20 06/25/18 03:36 BP 93/55 L 06/25/18 03:36 Pulse Ox 96 06/25/18 03:36 Constitutional: well developed and well nourished; no acute distress and not ill appearing Eyes: PERRL, conjunctivae normal, anicteric sclerae ENMT: external ear and nose normal, oropharynx normal Respiratory: no labored breathing and no cough Auscultation: + wheezes ( faint expiratory wheezing bilaterally, otherwise lungs clear to ausculation, no respiratory distress) Cardiovascular: RRR, no murmur, no edema (irregular irregular, no murmurs rubs or gallos, loop recording subcutaneous on left) Vessels: no JVD Extremities: no calf tenderness, no pedal edema and no edema Chest (Breasts): Breast: normal palpation of axillae (tender left sided chest wall) Gastrointestinal (Abdomen): normal bowel sounds, soft, nontender, no hepatosplenomegaly Inspection/Auscultation: abdomen normal to inspection and + abdomen distended Percussion/Palpation: abdomen soft; abdomen nontender, no guarding and abdomen not rigid Musculoskeletal: no cyanosis or clubbing, extremities motor strength 5/5 Head/Neck/Chest: normocephalic and head atraumatic Extremities: extremities normal to inspection and strength 5/5 throughout Skin: + lesion (ecchymosis over left big toe) Neurologic: patellar DTR's 2+ bilat, sensation intact and PERRL, EOMI, accommodation nl, no face palsy, no dysarthria Psychiatric: A+Ox3, euthymic affect Orientation: alert, oriented x 3, oriented to person, oriented to place and oriented to time _ (1) CHF (congestive heart failure) Heart failure chronicity: acute Heart failure type: systolic Qualified Code( s): I50.21 - Acute systolic (congestive) heart failure (2) Depression Active/Remission status: Depression Type: unspecified Major depression episode severity: Major depression recurrence: Psychotic features: Trimester: Qualified Code(s): F32.9 - Major depressive disorder, single episode, unspecified (3) Failure to thrive Failure to thrive age range: in adult Qualified Code(s): R62.7 - Adult failure to thrive
[2018-06-25 07:12] LABS: Basophils # (auto) 0.01 K/uL (0-0.2); Basophils % (auto) 0.2 %; Hematocrit (blood only) 32.5 % (42-52); Hemoglobin 9.9 g/dL (14.0-18.0); Immature Granulocytes # (auto) 0.02 K/uL (0.00-0.02); Immature Granulocytes % (auto) 0.3 %; Lymphocytes # (auto) 0.79 K/uL (1.2-3.4); Lymphocytes % (auto) 13.7 %; Mean Corpuscular Hgb Conc 30.5 g/dL (32-36); Mean Corpuscular Volume 78.5 fL (80-100); Mean Platelet Volume 10.6 fL (7.4-10.4); Monocytes # (auto) 0.72 K/uL (0.11-0.59); Monocytes % (auto) 12.5 %; Neutrophils # (auto) 4.21 K/uL (1.4-6.5); Neutrophils % (auto) 73.3 %; Platelet Count 153 K/uL (130-400); RDW Coefficient of Variation 17.5 % (11.5-14.5); Red Blood Count 4.14 M/uL (4.7-6.1); White Blood Count 5.75 K/uL (4.8-10.8)
[2018-06-25] MEDS: ACETAMINOPHEN 325 MG TAB PO PRN ×2 (07:46→21:16)
[2018-06-25 07:49] LABS: BUN Creatinine Ratio 21.1 (10-20); Calcium 7.8 mg/dl (8.5-10.1); Est GFR (African American) 51.8; Est GFR (Non-African American) 44.7; Potassium 4.3 mmol/L (3.5-5.1)
[2018-06-25 07:59] LABS: T4 Free Thyroxine 0.78 ng/dl (0.8-1.6)
[2018-06-25] MEDS: FUROSEMIDE 40 MG TAB PO SCH (08:28)
[2018-06-25] MEDS: DOCUSATE SODIUM 100 MG CAP PO SCH ×2 (08:28→20:58)
[2018-06-25] MEDS: SERTRALINE HCL 50 MG TABLET PO SCH (08:29)
[2018-06-25] MEDS: METOPROLOL TARTRATE 50 MG TAB PO SCH ×2 (08:29→21:02)
[2018-06-25] MEDS: ASPIRIN 81 MG ECTAB PO SCH (08:31)
--- NOTE | 2018-06-25 09:35 | Cardiology Consultation ---
Date of Consultation June 25, 2018 Assessment & Plan (1) Fall: The cause of his falling remains unclear. Unfortunately he has activated his loop recorder so many times that I cannot determine whether there is a correlation between a rhythm and symptoms (he is activated about 50 times in the last month), when I asked him why he activate so much he said that he was told he should activate it whenever he had symptoms, which he described as chest discomfort, etc. not just his episodes of falling. He does state that he activated it yesterday when he fell, that activation did not show any significant abnormality. He was in atrial fibrillation with a controlled heart rate. I am not convinced that his falls are due to an arrhythmia. (2) Status post placement of implantable loop recorder: His loop recorder is functioning well, he has had some automatic activations for slow heart rates but these have been sporadic and not terribly slow (he is set for 50 bpm for activation) and I suspect are not related to his falling as they do not correlate with his events. The battery voltage is good. (3) Acute on chronic systolic (congestive) heart failure: He returns now with congestive heart failure, his weight has dropped significantly with diuresis this admission, but remains substantially higher than on his last hospitalization. I suspect it is due to dietary noncompliance , perhaps medical noncompliance. (4) Paroxysmal ventricular tachycardia: He has had occasional nonsustained ventricular tachycardia identified, including on telemetry here where he had a brief run of accelerated idioventricular rhythm. There is been none identified with his loop recorder so I do not think this relates to his falling. I would not treat it specifically at this point. (5) Atrial fibrillation: He remains in permanent atrial fibrillation with a overall well- controlled heart rate. At times his heart rate drops a little bit, activating the monitor occasionally (for heart rate less than 50 bpm) but review of those episodes shows just a transient drop in heart rate, no long pauses and no sustained low heart rate and it does not correlate with his falling. I doubt this is related to his falls although I cannot exclude a slightly inappropriate low heart rate but on his symptom activated symptoms recently he has not had bradycardia. History of Present Illness Reason for Consultation: Multiple falls, CHF, loop recorder Attending Physician: Kobi High, History of Present Illness This is an 87-year-old male who has a history of diastolic congestive heart failure, including left ventricular hypertrophy based on echocardiography May 13, 2018, severe mitral regurgitation and moderate to severe pulmonary hypertension. In the past he has had a nonischemic cardiomyopathy and however his left ventricular systolic function has normalized. He also has a history of permanent atrial fibrillation and a right bundle branch block pattern. He has had a history of paroxysmal nonsustained ventricular tachycardia. He has been having multiple falls of unclear etiology, possibilities include his ventricular tachycardia, AV block as he does have conduction abnormalities, other causes for hypotension or noncardiac causes. He did have a tilt test done May 17, 2018 where he did not have orthostasis or vasovagal physiology. Since it was not clear why he was falling a loop recorder was implanted on May 17, 2018. He now presents with recurrent falls. He fell twice on the morning of May 24, 2018, striking his head on the ground but having no significant injury although he did have rib pain and abrasions. He was discharged but presented here on May 25, 2018 with recurrent falls and possible hypoxia. He was observed to be in congestive heart failure, no clear arrhythmia was identified as a cause of his falls. Allergies Allergy/AdvReac Type Severity Reaction Status Date / Time Iodinated Contrast- Oral and Allergy Severe ANAPHYLAXIS Verified 06/24/18 14:40 IV Dye Sulfa (Sulfonamide Allergy Unknown UNKNOWN Verified 06/24/18 14:40 Antibiotics) Home Medications Home Medications Medication Instructions Recorded Confirmed Type aspirin [Aspirin Childrens] 81 mg PO QAM 05/11/18 06/24/18 History atorvastatin 40 mg PO HS 05/11/18 06/24/18 History docusate sodium [Stool Softener] 100 mg PO AMHS 05/11/18 06/24/18 History ergocalciferol (vitamin D2) 50,000 unit PO WK 05/11/18 06/24/18 History [Vitamin D2] furosemide [Lasix] 60 mg PO QAM 05/11/18 06/24/18 History methimazole 5 mg PO HS 05/11/18 06/24/18 History metoprolol tartrate 25 mg PO BID 05/11/18 06/24/18 History pantoprazole 40 mg PO UD 05/11/18 06/24/18 History quetiapine 50 mg PO HS 05/11/18 06/24/18 History rivaroxaban [Xarelto] 15 mg PO PM 05/11/18 06/24/18 History sertraline 50 mg PO QAM 05/11/18 06/24/18 History lisinopril 5 mg PO DAILY #30 tab 05/18/18 06/24/18 Rx nitroglycerin [Nitrostat] 0.4 mg SUBLINGUAL UD PRN #30 tab 05/18/18 06/24/18 Rx Patient History Medical History Cholelithiasis 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 (Chronic ) Hyperthyroidism Lymphoma (Chronic) HTN (hypertension) (Chronic) CHF (congestive heart failure) (Chronic) EF 25-30% (May 14) Hypertension (Chronic) GERD (gastroesophageal reflux disease) (Chronic) Chronic obstructive pulmonary disease (Chronic) Depression (Chronic) Atrial fibrillation (Chronic) Cancer lYMPHOMA Congestive heart failure Stroke Surgical History History of cardiac cath Family History Unknown Heart attack Social History Current Living Situation: Alone Other Information That Helps Us Care for You: No Feels Safe at Home: Yes Safety Concerns: Feels Safe At This Time Smoking Status: Former smoker Second Hand Exposure: No Hx Alcohol Use: No Hx Substance Use: No Beliefs That Will Affect Care: None Preferred Language: Qatari Communication Ability: Effective 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 No exertional symptoms, he denies dyspnea on exertion (although is in heart failure) or exertional chest pain however he does not exert himself to any significant extent. No orthopnea or PND or peripheral edema. No GI complaints, no bleeding. No neurologic complaints such as TIA or stroke symptoms. Other systems negative. Physical Exam 2 Vital Signs (Past 24 Hours): Last Vital Signs Temp 36.9 C 06/25/18 07:28 Pulse 88 06/25/18 07:28 Resp 16 06/25/18 07:28 BP 131/69 06/25/18 07:28 Pulse Ox 95 06/25/18 07:28 Physical Exam: Constitutional: Alert, cooperative and in no distress. HEENT: Unremarkable Neck: No jugular venous distention, carotid pulses are irregular but otherwise normal and equal bilaterally without bruits. Pulmonary: Basilar crackles on auscultation bilaterally. Cardiac: Irregular rhythm with no murmur, gallop or rub. Abdomen: Soft, nontender with normal bowel sounds. Extremities: +1 bilateral pretibial edema. Distal pulses intact. Neurologic: No focal findings. Gait is steady. Skin: No rash, ecchymoses or petechiae. Results & Data Diagnostic Findings Telemetry: Atrial fibrillation with an overall well controlled heart rate. 1 3 beat run of an accelerated idioventricular rhythm well below 100 bpm. Electrocardiography: Both yesterday on admission and this morning he is in atrial fibrillation with a controlled heart rate in the 70s. Right bundle branch block. Review of loop recorder interrogation: His loop recorder was interrogated, unfortunately he has been activating it very frequently and only last 3 symptom activations are stored in the device. They have not showed any significant arrhythmia to explain his falls. He has had occasional bradycardia on automatic recordings but there is no clear correlate with his symptoms and it is not severely slow. _ (1) Atrial fibrillation Atrial fibrillation type: chronic Qualified Code(s): I48.2 - Chronic atrial fibrillation
[2018-06-25] MEDS: POLYETHYLENE (MIRALAX) 17 GM PACK PO PRN (10:50)
--- NOTE | 2018-06-25 15:06 | XRay Report ---
XR ribs LT min 2V CLINICAL HISTORY: fall, left rib tenderness COMPARISON STUDY: Chest CT 06/24/2018. FINDINGS: Multiple old, healed left lower rib fractures. No acute left rib fractures. No left-sided p neumothorax. IMPRESSION: Multiple old, healed left lower rib fractures. No acute rib fractures. Electronically signed by: Marty Do M.D. 06/25/2018 3:05 PM
[2018-06-25] MEDS: RIVAROXABAN 15 MG TAB PO SCH (20:58)
[2018-06-25] MEDS: ATORVASTATIN 40 MG TAB PO SCH (20:59)
[2018-06-25] MEDS: QUETIAPINE FUMARATE 25 MG TABLET PO SCH (21:00)
[2018-06-25] MEDS: methIMAzole 5 MG TABLET PO SCH (21:03)
[2018-06-26 07:34] LABS: Basophils # (auto) 0.03 K/uL (0-0.2); Basophils % (auto) 0.3 %; Eosinophils # (auto) 0.22 K/uL (0-0.5); Eosinophils % (auto) 2.5 %; Hematocrit (blood only) 33.5 % (42-52); Hemoglobin 10.2 g/dL (14.0-18.0); Immature Granulocytes # (auto) 0.03 K/uL (0.00-0.02); Immature Granulocytes % (auto) 0.3 %; Lymphocytes # (auto) 1.28 K/uL (1.2-3.4); Lymphocytes % (auto) 14.4 %; Mean Corpuscular Hgb Conc 30.4 g/dL (32-36); Mean Corpuscular Volume 78.5 fL (80-100); Mean Platelet Volume 11.1 fL (7.4-10.4); Monocytes # (auto) 1.23 K/uL (0.11-0.59); Monocytes % (auto) 13.8 %; Neutrophils # (auto) 6.12 K/uL (1.4-6.5); Neutrophils % (auto) 68.7 %; Platelet Count 173 K/uL (130-400); RDW Coefficient of Variation 17.7 % (11.5-14.5); RDW Standard Deviation 49.5 fL (36.4-46.3); Red Blood Count 4.27 M/uL (4.7-6.1); White Blood Count 8.91 K/uL (4.8-10.8)
[2018-06-26 07:43] LABS: BUN Creatinine Ratio 27.2 (10-20); Calcium 8.2 mg/dl (8.5-10.1); Creatinine Clr Calc Pharmacy 43.3 ml/min; Est GFR (African American) 52.3; Est GFR (Non-African American) 45.1; Potassium 4.3 mmol/L (3.5-5.1)
--- NOTE | 2018-06-26 08:35 | Family Medicine Progress Note ---
Date of Service June 26, 2018 Assessment & Plan (1) Fall: 87M with a PMHx of of AAA, HTN, CHF EF 25-30%, HTN, GERD, Afib presents to the ER for two recent falls and failure to thrive. In the absence of finding a reversible cause for the pt's deconditioning, pt will likely require exterminator placement. # Falls 2/2 Dizziness Deconditioning vs cardiac Falls preceded by dizziness and sliding off his chair. Previous admissions show paroxysmal VTACH and discussions whether a Pacemaker is appropriate, pt has a loop recorder. Loop interrogated - multiple activations, per cards no acute pathology that can explain pt's falls. Last admission TILT table testing negative. per cards - no obvious cards etiology for falls, will likely need exterminator placement. PT/OT 06/26/18 - Pt reports an episode of dizziness started in bed at rest, BP during this time was normal and pt was supine. A cursory reading on dizziness in the elderly shows 25% of dizziness may be drug induced. After reviewing the patient 's medications Queitapine has been known to cause dizziness in 7-19% of patients. Sertraline is also known to cause dizziness in 11% of patient. After discussing with patient we decrease Quietapine to 25mg QHS (from 50mg QHS ) and see if dizziness improves/ resolves. #1hr episode of chest pain at rest on 06/25/18 No EKG changes, Trop neg x 2. X-ray of the ribs showed previously healed left sided rib fractures (pt confirms he did break his ribs in the past). 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 Daily weights 94kg-->92kg-->94kg. Continue home 60mg PO Lasix daily + 20mg additional IV Lasix today, will also get chest portable for bibasilar crackles auscultated today. Continue to hold TWIN, c/w Metoprolol 25mg PO BID, ASA 81mg daily and Lipitor. ECHO (04/2018) - mildly dilated Left Ventricle , EF 55-60%, severely dilated right ventricle with mildly reduced systolic function severe biatrial dilation, severe mitral regurgitation, severe tricuspid reguritation, severe PULM HTN Cards - acute chf, no new recommendations. In light of echo findings above, consider NAM testing as outpatient. #Wheezing 06/25/28 (resolved 06/26/18) Pt denies significant smoking history, I do see COPD on the [facility] problem list however patient denies this diagnosis, pt is not on any inhalers. Do not see any COPD history in chart review from [facility]. Pt states that nebulizer treatment did not help. #Afib c/w metoprolol 25mg po BID, and Xarelto. # Scrotal edema Expect this to improve with diuresis. Root placed. # Hyperthyroidism: History of hyperthyroidism on methimazole and beta-josefina. TSH and FT4 were 1.85/0.8 on 05/13 (within normal). Continue beta-josefina and methimazole. TSH WNL, Free T4 is 0.78 - will not change any meds at this point. # Depression: Typically takes sertraline 50mg daily & Seroquel 50mg QHS. Will try to reduce Seroquel dose of 25mg QHS in order to correct dizziness. 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 Good blood pressure control and surveillance, TWIN held, BPs have averages 130s/ 80s. DVT prophylaxis: Xarelto for afib. FEN - [facility] PT / OT consulted - in current condition with multiple ER visits and admissions , and questionable med compliance with Lasix - cannot imagine pt OK safe to return home without clear resolution of these dizzy spells. Discharge planning for placement. DNR - however ok for mechanical intubation should his breathing worsen. (2) Failure to thrive: (3) DVT prophylaxis: (4) AAA (abdominal aortic aneurysm): (5) CHF (congestive heart failure): (6) Hyperthyroidism: (7) Depression: Supervising Physician Co-Signing Physician Notes I personally examined the patient and verified all tobias points of history and exam, discussed case, and agree with decision making with Dr Varela. When I first entered the room, he is laying in bed sleeping but moaning. He is holding his stomach. When I wake him up he seems mildly disoriented at first, but as his head clears, he notes that he is not having any pain or dyspnea or abdominal pain or any other symptoms. However on re-directed questioning, he does admit to a degree of dyspnea, as well as some nausea this morning without vomiting, and notes that he is chronically constipated and today had his first bowel movement for about 3 days. He notes feeling somewhat anxious and feeling like he is not going to make it. When asked to clarify this he has a hard time explaining exactly why he feels this way. We discussed his lightheadedness, and that it may be med related, he endorses that he believes this would be the case as well, when discussing possible meds and that his Seroquel is a high probability culprit, he notes that he generally cannot sleep without it. vitals noted in general he is awake alert and oriented x3 after a minute or so for him to orient to his surroundings, he appears somewhat restless mildly anxious and may be a mild degree of respiratory distress. HEENT normocephalic atraumatic mucous membranes are moist. Cardio is regular with a murmur on his left lower sternal border. Lungs show faint bibasilar rales otherwise clear to auscultation without rales rhonchi or wheezes good effort. His abdomen is soft mildly distended nontender no guarding no rebound no masses no organomegaly falls/syncope - orthostasis seems most likely. Right now while he has multiple medicines that are possible culprit, given that his cardiomyopathy seems somewhat brittle, we will work to try to reduce orthostasis with other medications. For now we will reduce his Seroquel to 25 mg and see how that may help his symptoms, although it may need to be discontinued. In this case if he does need something for sleep, something along the lines of Remeron at a low dose may be better tolerated. Or even simply 3-5 mg of melatonin may be the safest option. acute on chronic systolic CHF -it does seem fairly mild, however he does seem to be restless and dyspneic mostly in this regard. His chest x-ray corroborates his physical exam findings of mild failure, additional Lasix has been given this morning and is going to be given again this afternoon, continue to follow closely. Insomnia�see above Nausea/lack of appetite/constipation�this appears to be improving, had all seems to be driven mostly by his chronic constipation, continue MiraLAX escalate as needed. weakness/deconditioning - PT/OT - at least for now appears he'll need some form of placement. DVT proph - xarelto Subjective Pt was seen and examined at bedside. No acute overnight events. Still has an oxygen requirement. Tolerating PO. Pt reports to me that he is dizzy which started around 5am. Weight is up 2kg since yesterday, pt did get his Lasix. ROS: +dizzy, No chest pain, no palpitations, no fevers, no chills, no nausea, no vomiting, no diarrhea, no dysuria, no rash. Physical Exam 2 Vital Signs (Past 24 Hours): Last Vital Signs Temp 36.6 C 06/26/18 07:45 Pulse 90 06/26/18 07:45 Resp 18 06/26/18 07:45 BP 155/84 H 06/26/18 07:45 Pulse Ox 90 06/26/18 07:45 Constitutional: well developed and well nourished; no acute distress and not ill appearing Eyes: PERRL, conjunctivae normal, anicteric sclerae ENMT: external ear and nose normal, oropharynx normal Respiratory: no labored breathing and no cough Auscultation: + crackles ( bibasilar crackles on exam) Cardiovascular: RRR, no murmur, no edema (irregular irregular, no murmurs rubs or gallos, loop recording subcutaneous on left) Vessels: no JVD Extremities: no calf tenderness, no pedal edema and no edema Chest (Breasts): Breast: normal palpation of axillae (tender left sided chest wall) Gastrointestinal (Abdomen): normal bowel sounds, soft, nontender, no hepatosplenomegaly Inspection/Auscultation: abdomen normal to inspection and + abdomen distended Percussion/Palpation: abdomen soft; abdomen nontender, no guarding and abdomen not rigid Musculoskeletal: no cyanosis or clubbing, extremities motor strength 5/5 Head/Neck/Chest: normocephalic and head atraumatic Extremities: extremities normal to inspection and strength 5/5 throughout Skin: + lesion (ecchymosis over left big toe) Neurologic: patellar DTR's 2+ bilat, sensation intact and PERRL, EOMI, accommodation nl, no face palsy, no dysarthria Psychiatric: A+Ox3, euthymic affect Orientation: alert, oriented x 3, oriented to person, oriented to place and oriented to time Genitourinary: + edematous scrotum (unchanged from previous day) _ (1) CHF (congestive heart failure) Heart failure chronicity: acute Heart failure type: systolic Qualified Code( s): I50.21 - Acute systolic (congestive) heart failure (2) Depression Active/Remission status: Depression Type: unspecified Major depression episode severity: Major depression recurrence: Psychotic features: Trimester: Qualified Code(s): F32.9 - Major depressive disorder, single episode, unspecified (3) Failure to thrive Failure to thrive age range: in adult Qualified Code(s): R62.7 - Adult failure to thrive
[2018-06-26] MEDS ORDERED: FUROSEMIDE 20 MG in SYRINGE 0 ML IV ONE ×2 (08:45→16:00)
[2018-06-26] MEDS: FUROSEMIDE 40 MG TAB PO SCH (08:54)
[2018-06-26] MEDS: METOPROLOL TARTRATE 50 MG TAB PO SCH ×2 (08:55→20:10)
[2018-06-26] MEDS: SERTRALINE HCL 50 MG TABLET PO SCH (08:56)
[2018-06-26] MEDS: DOCUSATE SODIUM 100 MG CAP PO SCH ×2 (08:56→21:17)
[2018-06-26] MEDS: ASPIRIN 81 MG ECTAB PO SCH (08:56)
--- NOTE | 2018-06-26 09:04 | XRay Report ---
XR chest 1V portable HISTORY: 87 years-old Male weight gain, bibasilar crackles, CHF acute shortness of breath COMPARISON: Chest CT 06/24/2018, chest radiograph 05/17/2018 TECHNIQUE: Portable AP view of the chest FINDINGS: Cardiac silhouette is enlarged. Widening of the mediastinum, unchanged. Calcification the thoracic ao rtic arch. Loop recorder device projects over the left chest. Small bilateral pleural effusions with subsegmental bibasilar opacities. No pneumothorax. Mild pulmonary vascular congestion. Unchanged ill- defined opacity about the right midlung. Degenerative changes of the shoulders and spine. IMPRESSION: 1. Cardiomegaly and pulmonary vascular congestion without overt pulmonary edema. 2. Small bilateral pleural effusions with subsegmental bibasilar opacities favoring atelectasis. The above report was generated using voice recognition software. It may contain grammatical, syntax o r spelling errors. Electronically signed by: Troy Calzada M.D. 06/26/2018 9:03 AM
[2018-06-26 09:23] LABS: Ferritin 52.1 ng/ml (8-388)
--- NOTE | 2018-06-26 12:18 | Cardiology Progress Note ---
Date of Service June 26, 2018 Assessment & Plan (1) Fall: The cause of his falling remains unclear. Unfortunately he has activated his loop recorder so many times that I cannot determine whether there is a correlation between a rhythm and symptoms (he had activated it about 50 times in the last month), when I asked him why he activate so much he said that he was told he should activate it whenever he had symptoms, which he described as chest discomfort, etc. not just his episodes of falling. He does state that he activated it recently when he fell, that activation did not show any significant abnormality. He was in atrial fibrillation with a controlled heart rate. I am not convinced that his falls are due to an arrhythmia. Perhaps transient hypotension. (2) Status post placement of implantable loop recorder: His loop recorder is functioning well, he has had some automatic activations for slow heart rates but these have been sporadic and not terribly slow (he is set for 50 bpm for activation) and I suspect are not related to his falling as they do not correlate with his events. The battery voltage is good. (3) Acute on chronic systolic (congestive) heart failure: He returns now with congestive heart failure, his weight has dropped significantly with diuresis this admission, but remains substantially higher than on his last hospitalization. I suspect it is due to dietary noncompliance , perhaps medical noncompliance. We do need to be careful of over diuresis, but I suspect he is still fluid overloaded. (4) Paroxysmal ventricular tachycardia: He has had occasional nonsustained ventricular tachycardia identified, including on telemetry here where he had a brief run of accelerated idioventricular rhythm but not in the past 24 hours. There has been none identified with his loop recorder so I do not think this relates to his falling. I would not treat it specifically at this point. (5) Atrial fibrillation: He remains in permanent atrial fibrillation with a overall well- controlled heart rate. At times his heart rate drops a little bit, activating the monitor occasionally (for heart rate less than 50 bpm) but review of those episodes shows just a brief transient drop in heart rate, no long pauses and no sustained low heart rate and it does not correlate with his falling. I doubt this is related to his falls although I cannot exclude a slightly inappropriate low heart rate but on his symptom activated symptoms recently he has not had bradycardia. Subjective He seems to be feeling better today, as far as I know he has not been falling. Physical Exam 2 Vital Signs (Past 24 Hours): Last Vital Signs Temp 36.6 C 06/26/18 07:45 Pulse 85 06/26/18 09:30 Resp 18 06/26/18 07:45 BP 155/84 H 06/26/18 07:45 Pulse Ox 90 06/26/18 07:45 Physical Exam: Constitutional: Alert, cooperative and in no distress. HEENT: Unremarkable Neck: No jugular venous distention, carotid pulses are irregular but otherwise normal and equal bilaterally without bruits. Pulmonary: Basilar crackles on auscultation bilaterally. Cardiac: Irregular rhythm with no murmur, gallop or rub. Abdomen: Soft, nontender with normal bowel sounds. Extremities: +1 bilateral pretibial edema. Distal pulses intact. Neurologic: No focal findings. Gait is steady. Skin: No rash, ecchymoses or petechiae. Results & Data Diagnostic Findings Telemetry: Atrial fibrillation with a controlled heart rate, no significant heart rate variation _ (1) Atrial fibrillation Atrial fibrillation type: chronic Qualified Code(s): I48.2 - Chronic atrial fibrillation
[2018-06-26] MEDS: FERROUS GLUCONATE 324 MG TAB PO SCH (16:43)
[2018-06-26] MEDS: QUETIAPINE FUMARATE 25 MG TABLET PO SCH (20:10)
[2018-06-26] MEDS: RIVAROXABAN 15 MG TAB PO SCH (20:11)
[2018-06-26] MEDS: methIMAzole 5 MG TABLET PO SCH (20:12)
[2018-06-26] MEDS: ATORVASTATIN 40 MG TAB PO SCH (21:17)
[2018-06-27] MEDS: ACETAMINOPHEN 325 MG TAB PO PRN (05:11)
[2018-06-27 06:07] LABS: Basophils # (auto) 0.03 K/uL (0-0.2); Basophils % (auto) 0.4 %; Eosinophils # (auto) 0.26 K/uL (0-0.5); Eosinophils % (auto) 3.6 %; Hematocrit (blood only) 33.5 % (42-52); Immature Granulocytes # (auto) 0.03 K/uL (0.00-0.02); Immature Granulocytes % (auto) 0.4 %; Lymphocytes # (auto) 1.21 K/uL (1.2-3.4); Lymphocytes % (auto) 16.8 %; Mean Corpuscular Hgb Conc 29.9 g/dL (32-36); Mean Corpuscular Volume 78.1 fL (80-100); Mean Platelet Volume 10.4 fL (7.4-10.4); Monocytes # (auto) 1.25 K/uL (0.11-0.59); Monocytes % (auto) 17.4 %; Neutrophils # (auto) 4.42 K/uL (1.4-6.5); Neutrophils % (auto) 61.4 %; Platelet Count 160 K/uL (130-400); RDW Standard Deviation 50.4 fL (36.4-46.3); Red Blood Count 4.29 M/uL (4.7-6.1)
[2018-06-27 06:41] LABS: BUN Creatinine Ratio 24.5 (10-20); Calcium 8.1 mg/dl (8.5-10.1); Creatinine Clr Calc Pharmacy 47.3 ml/min; Est GFR (African American) 58.2; Est GFR (Non-African American) 50.2; Potassium 3.8 mmol/L (3.5-5.1)
[2018-06-27] MEDS: FUROSEMIDE 40 MG TAB PO SCH (07:56)
[2018-06-27] MEDS: DOCUSATE SODIUM 100 MG CAP PO SCH ×2 (07:56→21:40)
[2018-06-27] MEDS: METOPROLOL TARTRATE 50 MG TAB PO SCH ×2 (07:57→21:40)
[2018-06-27] MEDS: SERTRALINE HCL 50 MG TABLET PO SCH (07:57)
[2018-06-27] MEDS: FERROUS GLUCONATE 324 MG TAB PO SCH ×3 (07:57→17:07)
[2018-06-27] MEDS: ASPIRIN 81 MG ECTAB PO SCH (07:57)
[2018-06-27] MEDS: POLYETHYLENE (MIRALAX) 17 GM PACK PO SCH (08:06)
--- NOTE | 2018-06-27 09:19 | Cardiology Progress Note ---
Date of Service June 27, 2018 Assessment & Plan (1) Fall: The cause of his falling remains unclear. Unfortunately he had activated his loop recorder so many times in the month prior to admission that I cannot determine whether there is a correlation between a rhythm and symptoms (he had activated it about 50 times in the last month), when I asked him why he activated it so much he said that he was told he should activate it whenever he had symptoms, which he includes chest discomfort, shortness of breath, etc. not just his episodes of lightheadedness or falling. He does state that he activated it recently when he fell, recent activations did not show any significant abnormality, he was in atrial fibrillation with a controlled heart rate. I am not convinced that his falls are due to an arrhythmia. Perhaps transient hypotension without an arrhythmia as a more likely cause. (2) Status post placement of implantable loop recorder: His loop recorder is functioning well, he has had some rare automatic activations for slow heart rates but these have been sporadic and not terribly slow (he is set for 50 bpm for activation) and I suspect are not related to his falling as they do not correlate with his events. The battery voltage is good. (3) Acute on chronic systolic (congestive) heart failure: He returns now with congestive heart failure, his weight has dropped significantly with diuresis this admission, but remains higher than on his last hospitalization. I suspect it is due to dietary noncompliance, perhaps medical noncompliance. We do need to be careful of over diuresis, but I suspect he is still fluid overloaded and his kidney function is improving, not worsening so I think he has room to go still with diuresis. (4) Paroxysmal ventricular tachycardia: He has had occasional ventricular rhythms identified, including on telemetry here where he has had several brief runs of accelerated idioventricular rhythm at a heart rate well under 100 bpm. There has been none identified with his loop recorder so I do not think this relates to his falling. I would not treat it specifically at this point. (5) Atrial fibrillation: He remains in permanent atrial fibrillation with a overall well- controlled heart rate. At times his heart rate drops a little bit, activating the monitor occasionally (for heart rate less than 50 bpm) but review of those episodes shows just a brief transient drop in heart rate, no long pauses and no sustained low heart rate and it does not correlate with his falling. I doubt this is related to his falls although I cannot exclude a slightly inappropriate low heart rate but on his symptom activated symptoms recently he has not had bradycardia. Subjective He seems a little bit confused today, he did not really know why he was in the hospital. He initially denied feeling any symptoms currently, but when asked specifically about shortness of breath he said he was from time to time, he also told me he was lightheaded from time to time, but I cannot tell if that was actually this hospitalization or prehospitalization. Physical Exam 2 Vital Signs (Past 24 Hours): Last Vital Signs Temp 36.7 C 06/27/18 07:59 Pulse 87 06/27/18 07:59 Resp 20 06/27/18 07:59 BP 138/85 06/27/18 07:59 Pulse Ox 96 06/27/18 07:59 Physical Exam: Constitutional: Alert, cooperative and in no distress. Pulmonary: Clear to auscultation bilaterally. Cardiac: Irregular rhythm with no murmur, gallop or rub. Abdomen: Soft, nontender with normal bowel sounds. Extremities: No edema. Skin: No rash, ecchymoses or petechiae. Results & Data Diagnostic Findings Telemetry: Atrial fibrillation with a controlled heart rate route, to 4 beat runs of accelerated idioventricular rhythm, below 100 bpm. _ (1) Atrial fibrillation Atrial fibrillation type: chronic Qualified Code(s): I48.2 - Chronic atrial fibrillation
--- NOTE | 2018-06-27 14:52 | Family Medicine Progress Note ---
Date of Service June 27, 2018 Assessment & Plan (1) Fall: 87M with a PMHx of of AAA, HTN, CHF EF 55-60% on 05/15 echo, HTN, GERD, and Afib presented to the ER s/p two recent falls and was admitted for concern of failure to thrive/need for placement on 06/24. In the absence of finding a reversible cause for the pt's deconditioning, pt will likely require jail placement. Remains admitted with now improving dyspnea in the setting of CHF exacerbation pending placement. # Falls 2/2 Dizziness vs Deconditioning vs hypotension/arrhythmia Falls preceded by dizziness and sliding off his chair. 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 Loop interrogated - multiple activations, per cards no acute pathology that can explain pt's falls. Last admission TILT table testing negative. per cards - no obvious cards etiology for falls; will likely need termite exterminator helper placement. PT/OT-recommend inpatient rehab vs. 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 Daily weights 94kg-->92kg-->94kg Continue home 60mg PO Lasix daily Received 20mg additional IV Lasix on 06/26 Continue to hold TWIN, c/w Metoprolol 25mg PO BID, ASA 81mg daily and Lipitor. ECHO (04/2018) - mildly dilated Left Ventricle , EF 55-60%, severely dilated right ventricle with mildly reduced systolic function severe biatrial dilation, severe mitral regurgitation, severe tricuspid reguritation, severe PULM HTN Cards - acute chf, no new recommendations. In light of echo findings above, consider NAM testing as outpatient #Afib c/w metoprolol 25mg po BID, and Xarelto # Scrotal edema likely from volume overload Scrotal us ordered Monitor closely # Hyperthyroidism: History of hyperthyroidism on methimazole and beta-josefina. TSH and FT4 were 1.85/0.8 on 05/13 (within normal). TSH WNL, Free T4 is 0.78 Continue beta-josefina and methimazole. # Depression/sleep: Pt was on sertraline 50mg daily & Seroquel 50mg QHS Seroquel dose decreased to 25mg QHS with improvement in dizziness. -Per pt's daughter no hx of bipolar disorder/psychosis and only on it for sleep/depression #1hr episode of chest pain at rest on 06/25/18 No EKG changes, Trop neg x 2. X-ray of the ribs showed previously healed left sided rib fractures #Wheezing 06/25/28 (resolved 06/26/18) Pt denies significant smoking history, I do see COPD on the [facility] problem list however patient denies this diagnosis, pt is not on any inhalers. Do not see any COPD history in chart review from [facility]. Pt states that nebulizer treatment did not help. 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 Good blood pressure control and surveillance DVT prophylaxis: Xarelto for afib FEN - [facility] PT / OT consulted - inpatient rehab vs. SNF - placement pending DNR - however ok for mechanical intubation should his breathing worsen. (2) Failure to thrive: (3) DVT prophylaxis: (4) AAA (abdominal aortic aneurysm): (5) CHF (congestive heart failure): (6) Hyperthyroidism: (7) Depression: Supervising Physician Co-Signing Physician Notes Attending attestation Pt seen and examined in concert with Dr. Miranda. In agreement with the documented findings as noted in the resident documentation with any exceptions or additions as noted here. Resting comfortably in chair. Denies at present any dizziness today nor difficulties with positional changes. Shortness of breath improved as well. On examination, S1 nl, intermittent split S2 with 3/6 CHARLEEN. Mild decreased breath sounds b/l bases with mild rhonchi. Abd NT/ND BS +ve. b/l LE edema 1+ to the knee Recurrent falls/dizziness - subjective improvement with decreased quetiapine without apparent impact in sleep Acute on chronic CHF - persistent edema continue metoprolol, ASA, lipitor. Atrial fibrillation - continue metoprolol and xarelto Scrotal edema - US scrotum, continue to monitor during diuresis Subjective No acute overnight events. Pt weaned off O2 to RA this PM. Pt reports improving sob and improved dizziness this AM. Reports stable scrotal edema which is new. Weight stable at 91.8 kg and patient reports having a bowel movement as well ROS: No WATERS/dizziness, chest pain, fevers, chills, nausea, vomiting, diarrhea, dysuria Physical Exam 2 Vital Signs (Past 24 Hours): Last Vital Signs Temp 36.7 C 06/27/18 11:28 Pulse 90 06/27/18 11:28 Resp 20 06/27/18 11:28 BP 140/86 06/27/18 11:28 Pulse Ox 96 06/27/18 11:28 Physical Exam: General: In NAD, sitting in chair when examined this morning CV: irregular rhythm, 2/6 systolic murmur; no rubs or gallops; JVD at cricoid level Pulm: CTAB equal breath sounds bilaterally; no bibasilar crackles today Abdomen: +BS, NTTP in all quadrants and non-distended LE: no LE pitting edema or calf tenderness Results & Data Laboratory Results Abnormal lab results 06/27/18 06/27/18 Range/Units 05:27 05:27 RBC 4.29 L (4.7-6.1) M/uL Hgb 10.0 L (14.0-18.0) g/dL Hct 33.5 L (42-52) % MCV 78.1 L (80-100) fL MCH 23.3 L (25-34) pg MCHC 29.9 L (32-36) g/dL RDW Std Deviation 50.4 H (36.4-46.3) fL RDW Coeff of Jennifer 18.0 H (11.5-14.5) % Immature Gran # (Auto) 0.03 H (0.00-0.02) K/uL [place] # (Auto) 1.25 H (0.11-0.59) K/uL BUN 32 H (7-18) mg/dl BUN/Creatinine Ratio 24.5 H (10-20) Glucose 106 H (70-99) mg/dl Calcium 8.1 L (8.5-10.1) mg/dl Diagnostic Findings XR chest 1V portable HISTORY: 87 years-old Male weight gain, bibasilar crackles, CHF acute shortness of breath COMPARISON: Chest CT 06/24/2018, chest radiograph 05/17/2018 TECHNIQUE: Portable AP view of the chest FINDINGS: Cardiac silhouette is enlarged. Widening of the mediastinum, unchanged. Calcification the thoracic aortic arch. Loop recorder device projects over the left chest. Small bilateral pleural effusions with subsegmental bibasilar opacities. No pneumothorax. Mild pulmonary vascular congestion. Unchanged ill- defined opacity about the right midlung. Degenerative changes of the shoulders and spine. IMPRESSION: 1. Cardiomegaly and pulmonary vascular congestion without overt pulmonary edema. 2. Small bilateral pleural effusions with subsegmental bibasilar opacities favoring atelectasis. The above report was generated using voice recognition software. It may contain grammatical, syntax or spelling errors. Electronically signed by: Troy Calzada M.D. 06/26/2018 9:03 AM Medications Administered Current Inpatient Medications Acetaminophen (Tylenol) 650 mg PO Q4H PRN PRN Reason: pain/fever Stop: 07/24/18 21:23 Last Admin: 06/27/18 05:11 Dose: 650 mg Al Hydrox/Mg Hydrox/Simethicone (Maalox) 30 ml PO Q6H PRN PRN Reason: Dyspepsia Stop: 07/24/18 21:23 Albuterol (Duoneb) 3 ml NEB Q4R PRN PRN Reason: wheezing Stop: 07/24/18 21:23 Aspirin (Ecotrin) 81 mg PO QAM [facility] Stop: 07/25/18 08:59 Last Admin: 06/27/18 07:57 Dose: 81 mg Atorvastatin Calcium (Lipitor) 40 mg PO HS [facility] Stop: 07/24/18 21:23 Last Admin: 06/26/18 21:17 Dose: 40 mg Docusate Sodium (Colace) 100 mg PO BID [facility] Stop: 07/24/18 21:23 Last Admin: 06/27/18 07:56 Dose: 100 mg Ferrous Gluconate (Ferrous Gluconate) 324 mg PO TIDM [facility] Stop: 07/26/18 16:59 Last Admin: 06/27/18 13:13 Dose: 324 mg Furosemide (Lasix) 60 mg PO QAM [facility] Stop: 07/25/18 08:59 Last Admin: 06/27/18 07:56 Dose: 60 mg Methimazole (Tapazole) 5 mg PO HS [facility] Stop: 07/24/18 21:23 Last Admin: 06/26/18 20:12 Dose: 5 mg Metoprolol Tartrate (Lopressor) 25 mg PO BID [facility] Stop: 07/24/18 21:23 Last Admin: 06/27/18 07:57 Dose: 25 mg Nitroglycerin (Nitrostat) 0.4 mg SL UD PRN PRN Reason: chest pain Stop: 07/24/18 21:23 Polyethylene Glycol (Miralax Powder Packet) 17 gm PO DAILY [facility] Stop: 07/27/18 08:59 Last Admin: 06/27/18 08:06 Dose: 17 gm Quetiapine Fumarate (Seroquel) 25 mg PO HS [facility] Stop: 07/26/18 20:59 Last Admin: 06/26/18 20:10 Dose: 25 mg Rivaroxaban (Xarelto) 15 mg PO PM [facility] Stop: 07/24/18 21:23 Last Admin: 06/26/18 20:11 Dose: 15 mg Sertraline HCl (Zoloft) 50 mg PO QAM [facility] Stop: 07/25/18 08:59 Last Admin: 06/27/18 07:57 Dose: 50 mg Zolpidem Tartrate (Ambien) 5 mg PO HS PRN PRN Reason: Sleep Stop: 07/24/18 21:23 Last Admin: 06/25/18 21:17 Dose: 5 mg Resident Activity Tracking Resident Involvement: Resident Care Provided Care Provided: [facility] Medicine _ (1) CHF (congestive heart failure) Heart failure chronicity: acute Heart failure type: systolic Qualified Code( s): I50.21 - Acute systolic (congestive) heart failure (2) Depression Active/Remission status: Depression Type: unspecified Major depression episode severity: Major depression recurrence: Psychotic features: Trimester: Qualified Code(s): F32.9 - Major depressive disorder, single episode, unspecified (3) Failure to thrive Failure to thrive age range: in adult Qualified Code(s): R62.7 - Adult failure to thrive
--- NOTE | 2018-06-27 16:17 | Ultrasound Report ---
US scrotum CLINICAL HISTORY: 87 years-old Male presenting with scrotal edema. TECHNIQUE: Real-time grayscale and color and spectral Doppler ultrasound imaging of the scrotum was p erformed. COMPARISON: None. FINDINGS: Right testis: Normal echogenicity and echotexture. Testis measures 4.2 x 2.0 x 2.1 cm. Normal color D oppler flow and arterial and venous waveforms in the testicular parenchyma. Subcentimeter epididymal cyst, either epididymal head cyst or spermatocele. Large hydrocele present. Varicocele present. Left testis: Normal echogenicity and echotexture. Testis measures 4.3 x 1.8 x 2.5 cm. Normal color Do ppler flow and arterial and venous waveforms in the testicular parenchyma. Epididymal head normal. La rge hydrocele present. Varicocele present. Symmetric perfusion of the testes. Other: None. IMPRESSION: 1. No evidence of testicular torsion. 2. Bilateral large hydroceles. 3. Bilateral varicoceles. Electronically signed by: Klever Ramos M.D. 06/27/2018 4:16 PM
[2018-06-27] MEDS: ATORVASTATIN 40 MG TAB PO SCH (21:38)
[2018-06-27] MEDS: RIVAROXABAN 15 MG TAB PO SCH (21:39)
[2018-06-27] MEDS: QUETIAPINE FUMARATE 25 MG TABLET PO SCH (21:39)
[2018-06-27] MEDS: methIMAzole 5 MG TABLET PO SCH (21:40)
[2018-06-28] MEDS: ACETAMINOPHEN 325 MG TAB PO PRN (01:17)
[2018-06-28] MEDS ORDERED: LORazepam 0.5 MG TAB PO STA (01:39)
--- NOTE | 2018-06-28 01:39 | Progress Note ---
Date of Service June 28, 2018 1:40 am Received text page that patient was complaining of difficulty breathing and was requesting cough drops. Brief chart review: Patient was admitted for falls, deconditioning, and has a history of acute on chronic congestive heart failure. There is a quick reference that the patient is on Seroquel for sleep and not for psychosis. Saw patient at bedside. He was not complaining of any shortness of breath at all. In fact, his primary concern was that he was seeing "bugs" all over his body and says that they were biting his skin. At times he would shout out "ouch " and then try to grab at his skin. He then admitted that he thinks all of this might be in his head. Exam: Awake, answer questions. No present respiratory distress. Speaking in full sentences easily. Lungs are generally clear to auscultation throughout with perhaps a slight bit of expiratory wheeze. SpO2 93% on 2L NC. Plan: - No evidence of respiratory distress or volume overload at present. There is a slight wheeze but would not want to give him a neb as that will likely just make him more jittery. - He already received his nightly dose of Seroquel. - We will treat some of his anxiety with single dose of Ativan and an additional dose of Seroquel. - Ordered continuous pulse ox as a pulmonary monitor due to these sedating medications. Troy Dai MD PGY2 overnight call Physical Exam 2 Vital Signs (Past 24 Hours): Last Vital Signs Temp 36.7 C 06/27/18 22:57 Pulse 85 06/27/18 23:00 Resp 18 06/27/18 22:57 BP 127/82 06/27/18 22:57 Pulse Ox 93 06/27/18 22:57
[2018-06-28] MEDS ORDERED: QUETIAPINE FUMARATE 25 MG TABLET PO STA (01:40)
[2018-06-28 06:48] LABS: Basophils # (auto) 0.01 K/uL (0-0.2); Basophils % (auto) 0.2 %; Eosinophils # (auto) 0.27 K/uL (0-0.5); Eosinophils % (auto) 4.6 %; Hematocrit (blood only) 32.8 % (42-52); Immature Granulocytes # (auto) 0.02 K/uL (0.00-0.02); Immature Granulocytes % (auto) 0.3 %; Lymphocytes # (auto) 1.09 K/uL (1.2-3.4); Lymphocytes % (auto) 18.8 %; Mean Corpuscular Hgb Conc 30.5 g/dL (32-36); Mean Corpuscular Volume 78.1 fL (80-100); Mean Platelet Volume 10.6 fL (7.4-10.4); Monocytes # (auto) 1.01 K/uL (0.11-0.59); Monocytes % (auto) 17.4 %; Neutrophils # (auto) 3.41 K/uL (1.4-6.5); Neutrophils % (auto) 58.7 %; Platelet Count 144 K/uL (130-400); RDW Standard Deviation 50.2 fL (36.4-46.3); White Blood Count 5.81 K/uL (4.8-10.8)
[2018-06-28 07:19] LABS: BUN Creatinine Ratio 23.9 (10-20); Calcium 7.9 mg/dl (8.5-10.1); Creatinine Clr Calc Pharmacy 55.5 ml/min; Est GFR (African American) 70.6; Est GFR (Non-African American) 60.9; Potassium 3.7 mmol/L (3.5-5.1)
[2018-06-28] MEDS: SERTRALINE HCL 50 MG TABLET PO SCH (07:52)
[2018-06-28] MEDS: FUROSEMIDE 40 MG TAB PO SCH (07:52)
[2018-06-28] MEDS: METOPROLOL TARTRATE 50 MG TAB PO SCH ×2 (07:53→20:27)
[2018-06-28] MEDS: ASPIRIN 81 MG ECTAB PO SCH (07:53)
[2018-06-28] MEDS: FERROUS GLUCONATE 324 MG TAB PO SCH ×3 (07:53→17:42)
[2018-06-28] MEDS: POLYETHYLENE (MIRALAX) 17 GM PACK PO SCH (07:54)
[2018-06-28] MEDS: DOCUSATE SODIUM 100 MG CAP PO SCH ×2 (10:13→20:27)
--- NOTE | 2018-06-28 11:36 | Family Medicine Progress Note ---
Date of Service June 28, 2018 Assessment & Plan (1) Fall: 87M with a PMHx of of AAA, HTN, CHF EF 55-60% on 05/15 echo, HTN, GERD, and Afib presented to the ER s/p two recent falls and was admitted for concern of failure to thrive/need for placement on 06/24. In the absence of finding a reversible cause for the pt's deconditioning, pt will likely require machine long goods helper placement. Remains admitted with now improving dyspnea in the setting of CHF exacerbation pending placement. Concern for delirium vs. worsening mood disorder given seroquel dosage was decreased from home dose for concern of dizziness. # Falls 2/2 Dizziness vs Deconditioning vs hypotension/arrhythmia Falls preceded by dizziness and sliding off his chair. 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 Loop interrogated - multiple activations, per cards no acute pathology that can explain pt's falls. Last admission TILT table testing negative. per cards - no obvious cards etiology for falls; will likely need prison placement. PT/OT-recommend inpatient rehab vs. SNF Dizziness improved after decreasing seroquel dose from 50 mg to 25 mg daily -given worsening mood symptoms will increase to 50mg again and monitor for worsening dizziness # Acute CHF on Chronic Systolic CHF (improved crackles and on RA now) Pt doesn't appear volume overloaded in the extremities, discharge weight 1 month ago was 84kg. Daily weights 94kg-->92 Continue home 60mg PO Lasix daily Received 20mg additional IV Lasix on 06/26 Continue TWIN now that SHAY resolved, continue Metoprolol 25mg PO BID, ASA 81mg daily and Lipitor. ECHO (04/2018) - mildly dilated Left Ventricle , EF 55-60%, severely dilated right ventricle with mildly reduced systolic function severe biatrial dilation, severe mitral regurgitation, severe tricuspid reguritation, severe PULM HTN Cards - acute chf, no new recommendations. In light of echo findings above, consider NAM testing as outpatient #Afib c/w metoprolol 25mg po BID, and Xarelto # Scrotal edema - improving Scrotal us: b/l hydrocele and varicocele Monitor closely # Hyperthyroidism: History of hyperthyroidism on methimazole and beta-josefina. TSH and FT4 were 1.85/0.8 on 05/13 (within normal). TSH WNL, Free T4 is 0.78 Continue beta-josefina and methimazole. # Depression/sleep: Pt was on sertraline 50mg daily & Seroquel 50mg QHS Seroquel dose decreased to 25mg QHS with improvement in dizziness. -Per pt's daughter no hx of bipolar disorder/psychosis and only on it for sleep/depression but daughter in law (also listed as contact and per pt in charge of meds) reports hx of attention seeking behavior and acting strange in the past for which he was evaluated by psychiatry or psychology but as far as she knows he is on it for sleep -ON 06/27/18: had trouble sleeping and sensation of bugs crawling on skin - will increase seroquel dose to 50mg again -if pt having trouble sleeping pt has benadryl 25mg IV ordered #1hr episode of chest pain at rest on 06/25/18 No EKG changes, Trop neg x 2. X-ray of the ribs showed previously healed left sided rib fractures #Wheezing 06/25/28 (resolved 06/26/18) Pt denies significant smoking history, I do see COPD on the [facility] problem list however patient denies this diagnosis, pt is not on any inhalers. Do not see any COPD history in chart review from [facility]. Pt states that nebulizer treatment did not help. 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 Good blood pressure control and surveillance DVT prophylaxis: Xarelto for afib FEN - [facility] PT / OT consulted - inpatient rehab vs. SNF - placement pending DNR - however ok for mechanical intubation should his breathing worsen. DISPO: pending placement and insurance authorization at [facility] (2) Failure to thrive: (3) DVT prophylaxis: (4) AAA (abdominal aortic aneurysm): (5) CHF (congestive heart failure): (6) Hyperthyroidism: (7) Depression: Supervising Physician Co-Signing Physician Notes Attending attestation Pt seen and examined in concert with Dr. Miranda. In agreement with the documented findings as noted in the resident documentation with any exceptions or additions as noted here. Overnight hallucinations of parasites improved with second dose of quetiapine and reports feeling comfortable but really wanting to sleep. However, also reports no new lightheadedness or dizziness with re-addition of medication. Still having some shortness of breath overall improved from previous and tolerating routine diuresis. On examination, S1/S2 nl RRR no MCG. CTAB. Recurrent falls, multifactorial cause - restarted on medication 2/2 occurrence of hallucinations and family reported underlying psychiatric condition but without acute recurrence of symptoms Acute on chronic systolic CHF - continue diuresis, monitor weight/I/O Scrotal edema - continues to improve Else per resident documentation Subjective ON: pt reported sensation of bugs crawling on skin which he knew was probably in his head and he was alert with stable respiratory status. Pt improved somewhat after ativan 0.25mg x 1 and an additional dose of seroquel 25mg x 1. Continues to have a 3L O2 requirement via NC (was on 4L yesterday AM). This AM reports improving sensation of bugs crawling on skin and sob. Reports being tired as he did not get much sleep last night. Also reports improving scrotal edema Weight stable at 92kg. Was 91.8 kg on 06/27/18 ROS: No WATERS/dizziness, chest pain, fevers, chills, nausea, vomiting, diarrhea, dysuria Physical Exam 2 Vital Signs (Past 24 Hours): Last Vital Signs Temp 36.3 C L 06/28/18 07:42 Pulse 82 06/28/18 07:42 Resp 18 06/28/18 07:42 BP 131/76 06/28/18 07:42 Pulse Ox 93 06/28/18 07:42 Physical Exam: General: Somewhat uncomfortable this AM due to sensation of bugs crawling on skin (improved since last night) CV: irregular rhythm, 2/6 systolic murmur; no rubs or gallops Pulm: CTAB equal breath sounds bilaterally; no wheezing or crackles appreciated Abdomen: +BS, NTTP in all quadrants and non-distended : improved scrotal edema compared to yesterday LE: no LE pitting edema or calf tenderness Results & Data Laboratory Results Abnormal lab results 06/28/18 06/28/18 Range/Units 06:10 06:10 RBC 4.20 L (4.7-6.1) M/uL Hgb 10.0 L (14.0-18.0) g/dL Hct 32.8 L (42-52) % MCV 78.1 L (80-100) fL MCH 23.8 L (25-34) pg MCHC 30.5 L (32-36) g/dL RDW Std Deviation 50.2 H (36.4-46.3) fL RDW Coeff of Jennifer 18.0 H (11.5-14.5) % MPV 10.6 H (7.4-10.4) fL Lymph # (Auto) 1.09 L (1.2-3.4) K/uL [place] # (Auto) 1.01 H (0.11-0.59) K/uL BUN 26 H (7-18) mg/dl BUN/Creatinine Ratio 23.9 H (10-20) Calcium 7.9 L (8.5-10.1) mg/dl Medications Administered Current Inpatient Medications Acetaminophen (Tylenol) 650 mg PO Q4H PRN PRN Reason: pain/fever Stop: 07/24/18 21:23 Last Admin: 06/28/18 01:17 Dose: 650 mg Al Hydrox/Mg Hydrox/Simethicone (Maalox) 30 ml PO Q6H PRN PRN Reason: Dyspepsia Stop: 07/24/18 21:23 Albuterol (Duoneb) 3 ml NEB Q4R PRN PRN Reason: wheezing Stop: 07/24/18 21:23 [facility] ([facility]) [facility] Stop: 07/25/18 08:59 Last Admin: 06/28/18 07:53 Dose: 81 mg Atorvastatin Calcium (Lipitor) 40 mg PO [facility] Stop: 07/24/18 21:23 Last Admin: 06/27/18 21:38 Dose: 40 mg Docusate Sodium (Colace) 100 mg PO BID [facility] Stop: 07/24/18 21:23 Last Admin: 06/28/18 10:13 Dose: Not Given Ferrous Gluconate (Ferrous Gluconate) 324 mg PO TIDM [facility] Stop: 07/26/18 16:59 Last Admin: 06/28/18 07:53 Dose: 324 mg Furosemide (Lasix) 60 mg PO QAM [facility] Stop: 07/25/18 08:59 Last Admin: 06/28/18 07:52 Dose: 60 mg Methimazole (Tapazole) 5 mg PO [facility] Stop: 07/24/18 21:23 Last Admin: 06/27/18 21:40 Dose: 5 mg Metoprolol Tartrate (Lopressor) 25 mg PO BID [facility] Stop: 07/24/18 21:23 Last Admin: 06/28/18 07:53 Dose: 25 mg Nitroglycerin (Nitrostat) 0.4 mg SL UD PRN PRN Reason: chest pain Stop: 07/24/18 21:23 Polyethylene Glycol (Miralax Powder Packet) 17 gm PO DAILY [facility] Stop: 07/27/18 08:59 Last Admin: 06/28/18 07:54 Dose: 17 gm Quetiapine Fumarate (Seroquel) 25 mg PO HS [facility] Stop: 07/26/18 20:59 Last Admin: 06/27/18 21:39 Dose: 25 mg Rivaroxaban (Xarelto) 15 mg PO PM [facility] Stop: 07/24/18 21:23 Last Admin: 06/27/18 21:39 Dose: 15 mg Sertraline HCl (Zoloft) 50 mg PO QAM [facility] Stop: 07/25/18 08:59 Last Admin: 06/28/18 07:52 Dose: 50 mg Zolpidem Tartrate (Ambien) 5 mg PO HS PRN PRN Reason: Sleep Stop: 07/24/18 21:23 Last Admin: 06/25/18 21:17 Dose: 5 mg Resident Activity Tracking Resident Involvement: Resident Care Provided Care Provided: [facility] Medicine _ (1) CHF (congestive heart failure) Heart failure chronicity: acute Heart failure type: systolic Qualified Code( s): I50.21 - Acute systolic (congestive) heart failure (2) Depression Active/Remission status: Depression Type: unspecified Major depression episode severity: Major depression recurrence: Psychotic features: Trimester: Qualified Code(s): F32.9 - Major depressive disorder, single episode, unspecified (3) Failure to thrive Failure to thrive age range: in adult Qualified Code(s): R62.7 - Adult failure to thrive
[2018-06-28] MEDS ORDERED: DiphenhydrAMINE HCL 50 MG/ML VIAL IV PRN (13:45)
[2018-06-28] MEDS: ATORVASTATIN 40 MG TAB PO SCH (20:27)
[2018-06-28] MEDS: QUETIAPINE FUMARATE 25 MG TABLET PO SCH (20:28)
[2018-06-28] MEDS: methIMAzole 5 MG TABLET PO SCH (20:28)
[2018-06-28] MEDS: RIVAROXABAN 15 MG TAB PO SCH (20:28)
[2018-06-29] MEDS: LORazepam 0.5 MG TAB PO PRN (01:15)
[2018-06-29] MEDS: METOPROLOL TARTRATE 50 MG TAB PO SCH ×2 (07:44→20:53)
[2018-06-29] MEDS: SERTRALINE HCL 50 MG TABLET PO SCH (07:45)
[2018-06-29] MEDS: FUROSEMIDE 40 MG TAB PO SCH (07:45)
[2018-06-29] MEDS: ASPIRIN 81 MG ECTAB PO SCH (07:45)
[2018-06-29] MEDS: FERROUS GLUCONATE 324 MG TAB PO SCH ×3 (07:46→16:45)
[2018-06-29] MEDS: POLYETHYLENE (MIRALAX) 17 GM PACK PO SCH (07:47)
[2018-06-29] MEDS: DOCUSATE SODIUM 100 MG CAP PO SCH ×2 (07:48→22:22)
--- NOTE | 2018-06-29 09:29 | Cardiology Progress Note ---
Date of Service June 29, 2018 Assessment & Plan (1) Fall: The cause of his falling remains unclear. Unfortunately he had activated his loop recorder so many times in the month prior to admission that I cannot determine whether there is a correlation between a rhythm and symptoms (he had activated it about 50 times in the last month), when I asked him why he activated it so much he said that he was told he should activate it whenever he had symptoms, which he includes chest discomfort, shortness of breath, etc. not just his episodes of lightheadedness or falling. He does state that he activated it recently when he fell, recent activations did not show any significant abnormality, he was in atrial fibrillation with a controlled heart rate. Here on telemetry he has not had significant bradycardia. I am not convinced that his falls are due to an arrhythmia. Perhaps transient hypotension without an arrhythmia as a more likely cause. I have asked him to activate the recorder when or shortly after he falls, but not activated for other symptoms. (2) Status post placement of implantable loop recorder: His loop recorder is functioning well, he has had some rare automatic activations for slow heart rates but these have been sporadic and not terribly slow (he is set for 50 bpm for activation) and I suspect are not related to his falling as they do not correlate with his events. The battery voltage is good. (3) Acute on chronic systolic (congestive) heart failure: He returns now with congestive heart failure, his weight has dropped significantly with diuresis this admission, but remains higher than on his last hospitalization. I suspect his CHF is due to dietary noncompliance, perhaps medical noncompliance. We do need to be careful of over diuresis, but I suspect he is still fluid overloaded to some extent but clinically he seems to be doing well. (4) Paroxysmal ventricular tachycardia: He has had occasional ventricular rhythms identified, including on telemetry here where he has had several brief runs of accelerated idioventricular rhythm at a heart rate well under 100 bpm. There had been none identified with his loop recorder so I do not think this relates to his falling. I would not treat it specifically at this point. (5) Atrial fibrillation: He remains in permanent atrial fibrillation with a overall well- controlled heart rate. At times his heart rate drops a little bit, activating the monitor occasionally (for heart rate less than 50 bpm) but review of those episodes shows just a brief transient drop in heart rate, no long pauses and no sustained low heart rate and it does not correlate with his falling. I doubt this is related to his falls although I cannot exclude a slightly inappropriate low heart rate but on his symptom activated symptoms recently he has not had bradycardia. Subjective He seems comfortable today, he is laying supine on his bed. No cardiovascular complaints. He seems anxious to go home. Physical Exam 2 Vital Signs (Past 24 Hours): Last Vital Signs Temp 37.0 C 06/29/18 07:40 Pulse 80 06/29/18 08:44 Resp 18 06/29/18 07:40 BP 135/89 06/29/18 07:40 Pulse Ox 94 06/29/18 07:40 Physical Exam: Constitutional: Alert, cooperative and in no distress. Pulmonary: Clear to auscultation bilaterally. Cardiac: Irregular rhythm with no murmur, gallop or rub. Abdomen: Soft, nontender with normal bowel sounds. Extremities: No edema. Skin: No rash, ecchymoses or petechiae. Results & Data Diagnostic Findings On telemetry he has remained in atrial fibrillation with a well-controlled heart rate. _ (1) Atrial fibrillation Atrial fibrillation type: chronic Qualified Code(s): I48.2 - Chronic atrial fibrillation
[2018-06-29] MEDS ORDERED: FUROSEMIDE 20 MG in SYRINGE 0 ML IV ONE ×2 (10:52→15:44)
--- NOTE | 2018-06-29 11:47 | XRay Report ---
XR chest 1V portable CLINICAL HISTORY: hypoxia dyspnea COMPARISON STUDY: 06/26/2018 FINDINGS: Mildly progressive components of congestive failure. Increased pulmonary vasculature. Small bilateral pleural effusions with mild left basilar consolidative change. IMPRESSION: Mildly progressive components of congestive heart failure and bilateral pleural effusion s. The above report was generated using voice recognition software. It may contain grammatical, syntax or spelling errors. Electronically signed by: Bryon Colin M.D. 06/29/2018 11:46 AM
--- NOTE | 2018-06-29 14:58 | Family Medicine Progress Note ---
Date of Service June 29, 2018 Assessment & Plan (1) Fall: 87M with a PMHx of of AAA, HTN, CHF EF 55-60% on 05/15 echo, HTN, GERD, and Afib presented to the ER s/p two recent falls and was admitted for concern of failure to thrive/need for placement on 06/24. In the absence of finding a reversible cause for the pt's deconditioning, pt will likely require exterminator helper placement. Remains admitted with now improving dyspnea in the setting of CHF exacerbation. Improved hallucinations after Seroquel increased to home dosage of 50 mg yesterday. # Falls 2/2 Dizziness vs Deconditioning vs hypotension/arrhythmia Falls preceded by dizziness and sliding off his chair. 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 Loop interrogated - multiple activations, per cards no acute pathology that can explain pt's falls. Last admission TILT table testing negative. per cards - no obvious cards etiology for falls; will likely need exterminator helper placement. PT/OT-recommend inpatient rehab vs. SNF Dizziness improved # Acute CHF on Chronic Systolic CHF (improved crackles and on RA now) Pt doesn't appear volume overloaded in the extremities, discharge weight 1 month ago was 84kg. Daily weights 94kg-->90 AM prior to 20mg IV lasix -> post lasix and diuresis of 750cc 88.9 kg Continue home 60mg PO Lasix daily Received 20mg x 2 additional IV Lasix today Continue TWIN, Metoprolol 25mg PO BID, ASA 81mg daily and Lipitor. ECHO (04/2018) - mildly dilated Left Ventricle , EF 55-60%, severely dilated right ventricle with mildly reduced systolic function severe biatrial dilation, severe mitral regurgitation, severe tricuspid reguritation, severe PULM HTN Cards - acute chf, no new recommendations In light of echo findings above, consider NAM testing as outpatient #Afib c/w metoprolol 25mg po BID, and Xarelto # Scrotal edema - improving Scrotal us: b/l hydrocele and varicocele Monitor closely # Hyperthyroidism: History of hyperthyroidism on methimazole and beta-josefina. TSH and FT4 were 1.85/0.8 on 05/13 (within normal). TSH WNL, Free T4 is 0.78 Continue beta-josefina and methimazole. # Depression/sleep: Pt on sertraline 50mg daily & Seroquel 50mg QHS at home Seroquel dose decreased to 25mg QHS with improvement in dizziness. -Per pt's daughter no hx of bipolar disorder/psychosis and only on it for sleep/depression but daughter in law (also listed as contact and per pt in charge of meds) reports hx of attention seeking behavior and acting strange in the past for which he was evaluated by psychiatry or psychology but as far as she knows he is on it for sleep -ON 06/27/18: had trouble sleeping and sensation of bugs crawling on skin - increased seroquel dose to 50mg again with improvement in symptoms -if pt having trouble sleeping pt has benadryl 25mg IV ordered #1hr episode of chest pain at rest on 06/25/18 No EKG changes, Trop neg x 2. X-ray of the ribs showed previously healed left sided rib fractures #Wheezing 06/25/28 (resolved 06/26/18) Pt denies significant smoking history, I do see COPD on the [facility] problem list however patient denies this diagnosis, pt is not on any inhalers. Do not see any COPD history in chart review from [facility]. Pt states that nebulizer treatment did not help. 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 Good blood pressure control and surveillance DVT prophylaxis: Xarelto for afib FEN - Heart Healthy PT / OT consulted - inpatient rehab vs. SNF DNR - however ok for mechanical intubation should his breathing worsen. DISPO: Ibrahima plata likely tomorrow pending clinical improvement (2) Failure to thrive: (3) DVT prophylaxis: (4) AAA (abdominal aortic aneurysm): (5) CHF (congestive heart failure): (6) Hyperthyroidism: (7) Depression: Supervising Physician Co-Signing Physician Notes Attending attestation Pt seen and examined in concert with Dr. Miranda. In agreement with the documented findings as noted in the resident documentation with any exceptions or additions as noted here. Resting comfortable in chair without complaint presently. Still with shortness of breath with activity which is shy of baseline and intermittent complaints of SOB with less than 4L O2. Reports no leg swelling, nausea, abd pain, WATERS, lightheadedness. On examination, S1/S2 nl RRR no MCG. CTAB. Abd NT/ND BS+ve. 1+ pitting edema to the distal chan. Scrotal edema minimally improved from previous, significantly better per pt. Acute on chronic systolic CHF w/ LE and scrotal edema - increased diuresis - progressive improvement for which we will delay discharge considering dyspnea on exertion, but will necessitate further diuresis and return to close to baseline weight and fluid status Falls, multifactorial - no apparent recurrence of symptomatic dizziness on quetiapine thus far. Continue present care Subjective This AM and ON pt was on 4L. Weaned to 2L with occasional desats to high 80s. CXR today with mildly progressive CHF and bilateral pleural effusions. Received Lasix 20 IV x 1 with 750cc urine output however on repeat exam had crackles on RLL region, was on 2L and repeat weight was 88.9 from 90kg this AM. Another 20 IV lasix was ordered. Pt reports improved sensation of bugs crawling on skin and improving sob. ROS: No WATERS/dizziness, chest pain, fevers, chills, nausea, vomiting, diarrhea, dysuria Physical Exam 2 Vital Signs (Past 24 Hours): Last Vital Signs Temp 36.9 C 06/29/18 11:31 Pulse 95 H 06/29/18 11:31 Resp 18 06/29/18 11:31 BP 135/80 06/29/18 11:31 Pulse Ox 93 06/29/18 11:31 Physical Exam: General: In NAD, pleasant sitting up on side of bed CV: irregular rhythm, 2/6 systolic murmur, split S2; no rubs or gallops Pulm: CTAB equal breath sounds bilaterally this AM on repeat exam this PM appreciated RLL crackles Abdomen: +BS, NTTP in all quadrants and non-distended : stable scrotal edema compared to yesterday LE: no LE pitting edema or calf tenderness Results & Data Medications Administered Current Inpatient Medications Acetaminophen (Tylenol) 650 mg PO Q4H PRN PRN Reason: pain/fever Stop: 07/24/18 21:23 Last Admin: 06/28/18 01:17 Dose: 650 mg Al Hydrox/Mg Hydrox/Simethicone (Maalox) 30 ml PO Q6H PRN PRN Reason: Dyspepsia Stop: 07/24/18 21:23 Albuterol (Duoneb) 3 ml NEB Q4R PRN PRN Reason: wheezing Stop: 07/24/18 21:23 Aspirin (Ecotrin) 81 mg PO QAM [facility] Stop: 07/25/18 08:59 Last Admin: 06/29/18 07:45 Dose: 81 mg Atorvastatin Calcium (Lipitor) 40 mg PO HS [facility] Stop: 07/24/18 21:23 Last Admin: 06/28/18 20:27 Dose: 40 mg Diphenhydramine HCl (Benadryl) 25 mg IV HS PRN PRN Reason: Sleep Stop: 07/28/18 13:44 Docusate Sodium (Colace) 100 mg PO BID [facility] Stop: 07/24/18 21:23 Last Admin: 06/29/18 07:48 Dose: 100 mg Ferrous Gluconate (Ferrous Gluconate) 324 mg PO TIDM [facility] Stop: 07/26/18 16:59 Last Admin: 06/29/18 11:43 Dose: 324 mg Furosemide (Lasix) 60 mg PO QAM [facility] Stop: 07/25/18 08:59 Last Admin: 06/29/18 07:45 Dose: 60 mg Lorazepam (Ativan) 0.25 mg PO QPM PRN PRN Reason: Agitation Stop: 07/29/18 00:33 Last Admin: 06/29/18 01:15 Dose: 0.25 mg Methimazole (Tapazole) 5 mg PO HS [facility] Stop: 07/24/18 21:23 Last Admin: 06/28/18 20:28 Dose: 5 mg Metoprolol Tartrate (Lopressor) 25 mg PO BID [facility] Stop: 07/24/18 21:23 Last Admin: 06/29/18 07:44 Dose: 25 mg Nitroglycerin (Nitrostat) 0.4 mg SL UD PRN PRN Reason: chest pain Stop: 07/24/18 21:23 Polyethylene Glycol (Miralax Powder Packet) 17 gm PO DAILY [facility] Stop: 07/27/18 08:59 Last Admin: 06/29/18 07:47 Dose: 17 gm Quetiapine Fumarate (Seroquel) 50 mg PO HS [facility] Stop: 07/28/18 20:59 Last Admin: 06/28/18 20:28 Dose: 50 mg Rivaroxaban (Xarelto) 15 mg PO PM [facility] Stop: 07/24/18 21:23 Last Admin: 06/28/18 20:28 Dose: 15 mg Sertraline HCl (Zoloft) 50 mg PO QAM [facility] Stop: 07/25/18 08:59 Last Admin: 06/29/18 07:45 Dose: 50 mg Zolpidem Tartrate (Ambien) 5 mg PO HS PRN PRN Reason: Sleep Stop: 07/24/18 21:23 Last Admin: 06/25/18 21:17 Dose: 5 mg Resident Activity Tracking Resident Involvement: Resident Care Provided Care Provided: [facility] Medicine _ (1) CHF (congestive heart failure) Heart failure chronicity: acute Heart failure type: systolic Qualified Code( s): I50.21 - Acute systolic (congestive) heart failure (2) Depression Active/Remission status: Depression Type: unspecified Major depression episode severity: Major depression recurrence: Psychotic features: Trimester: Qualified Code(s): F32.9 - Major depressive disorder, single episode, unspecified (3) Failure to thrive Failure to thrive age range: in adult Qualified Code(s): R62.7 - Adult failure to thrive
[2018-06-29] MEDS: methIMAzole 5 MG TABLET PO SCH (20:51)
[2018-06-29] MEDS: QUETIAPINE FUMARATE 25 MG TABLET PO SCH (20:51)
[2018-06-29] MEDS: ATORVASTATIN 40 MG TAB PO SCH (20:52)
[2018-06-29] MEDS: RIVAROXABAN 15 MG TAB PO SCH (20:52)
[2018-06-30] MEDS: LORazepam 0.5 MG TAB PO PRN (00:24)
[2018-06-30 07:21] LABS: Basophils # (auto) 0.03 K/uL (0-0.2); Basophils % (auto) 0.4 %; Eosinophils # (auto) 0.24 K/uL (0-0.5); Eosinophils % (auto) 3.3 %; Hematocrit (blood only) 34.1 % (42-52); Hemoglobin 10.4 g/dL (14.0-18.0); Immature Granulocytes # (auto) 0.03 K/uL (0.00-0.02); Immature Granulocytes % (auto) 0.4 %; Lymphocytes # (auto) 1.12 K/uL (1.2-3.4); Lymphocytes % (auto) 15.2 %; Mean Corpuscular Hgb Conc 30.5 g/dL (32-36); Mean Corpuscular Volume 79.1 fL (80-100); Mean Platelet Volume 10.4 fL (7.4-10.4); Monocytes # (auto) 1.22 K/uL (0.11-0.59); Monocytes % (auto) 16.6 %; Neutrophils # (auto) 4.72 K/uL (1.4-6.5); Neutrophils % (auto) 64.1 %; Platelet Count 168 K/uL (130-400); RDW Coefficient of Variation 18.6 % (11.5-14.5); RDW Standard Deviation 52.3 fL (36.4-46.3); Red Blood Count 4.31 M/uL (4.7-6.1); White Blood Count 7.36 K/uL (4.8-10.8)
[2018-06-30] MEDS: ASPIRIN 81 MG ECTAB PO SCH (07:53)
[2018-06-30] MEDS: FUROSEMIDE 40 MG TAB PO SCH (07:53)
[2018-06-30] MEDS: FERROUS GLUCONATE 324 MG TAB PO SCH ×3 (07:53→16:54)
[2018-06-30] MEDS: DOCUSATE SODIUM 100 MG CAP PO SCH ×2 (07:53→20:47)
[2018-06-30] MEDS: METOPROLOL TARTRATE 50 MG TAB PO SCH ×2 (07:54→20:46)
[2018-06-30] MEDS: POLYETHYLENE (MIRALAX) 17 GM PACK PO SCH (07:54)
[2018-06-30] MEDS: SERTRALINE HCL 50 MG TABLET PO SCH (07:54)
[2018-06-30 07:59] LABS: BUN Creatinine Ratio 19.4 (10-20); Calcium 8.3 mg/dl (8.5-10.1); Creatinine Clr Calc Pharmacy 55.5 ml/min; Est GFR (African American) 70.6; Est GFR (Non-African American) 60.9; Potassium 4.3 mmol/L (3.5-5.1)
[2018-06-30] MEDS ORDERED: FUROSEMIDE 20 MG in SYRINGE 0 ML IV ONE ×2 (10:30→11:15)
[2018-06-30] MEDS ORDERED: OR MISCELLANEOUS MED ONE (10:46)
[2018-06-30] MEDS: ALBUT/IPRATROP 3MG/0.5MG NEB 3 ML VIAL NEB SCH ×2 (13:28→19:46)
--- NOTE | 2018-06-30 18:47 | Family Medicine Progress Note ---
Date of Service June 30, 2018 Assessment & Plan (1) Fall: 87M with a PMHx of of AAA, HTN, CHF EF 55-60% on 05/15 echo, HTN, GERD, and Afib presented to the ER s/p two recent falls and was admitted for concern of failure to thrive/need for placement on 06/24. In the absence of finding a reversible cause for the pt's deconditioning, pt will likely require exterminator placement. Remains admitted with now improving dyspnea in the setting of CHF exacerbation with adequate diuresis. Improved hallucinations after Seroquel increased to home dosage of 50 mg. # Falls 2/2 Dizziness vs Deconditioning vs hypotension/arrhythmia Falls preceded by dizziness and sliding off his chair. 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 Loop interrogated - multiple activations, per cards no acute pathology that can explain pt's falls. Last admission TILT table testing negative. per cards - no obvious cards etiology for falls; will likely need [facility] placement. PT/OT-recommend inpatient rehab vs. SNF - [facility] bed [facility] Dizziness improved # Acute CHF on Chronic Systolic CHF - improved exam and on 2L now Pt doesn't appear volume overloaded in the extremities, discharge weight 1 month ago was 84kg. Daily weights 90kg-->87.9 AM Given 20mg IV lasix this AM and diuresed of 3200cc Continue home 60mg PO Lasix daily Received 20mg IV Lasix today Continue TWIN, Metoprolol 25mg PO BID, ASA 81mg daily and Lipitor ECHO (04/2018) - mildly dilated Left Ventricle , EF 55-60%, severely dilated right ventricle with mildly reduced systolic function severe biatrial dilation, severe mitral regurgitation, severe tricuspid reguritation, severe PULM HTN Cards - acute chf, no new recommendations In light of echo findings above, consider NAM testing as outpatient #Afib c/w metoprolol 25mg po BID, and Xarelto #Recurrent Wheezing 1st episode on 06/25/28 (resolved 06/26/18) and 2nd - 06/30/18 Pt denies significant smoking history, COPD on the [facility] problem list however patient denied and not on any inhalers. No COPD history in chart review from [facility]. On duoneb Q6H michaela - exam improved after treatments # Scrotal edema - improving s/p diuresis Scrotal us: b/l hydrocele and varicocele Monitor closely # Hyperthyroidism: History of hyperthyroidism on methimazole and beta-josefina. TSH and FT4 were 1.85/0.8 on 05/13 (within normal). TSH WNL, Free T4 is 0.78 Continue beta-josefina and methimazole. # Depression/sleep: Pt on sertraline 50mg daily & Seroquel 50mg QHS at home Seroquel dose decreased to 25mg QHS with improvement in dizziness. -Per pt's daughter no hx of bipolar disorder/psychosis and only on it for sleep/depression but daughter in law (also listed as contact and per pt in charge of meds) reports hx of attention seeking behavior and acting strange in the past for which he was evaluated by psychiatry or psychology but as far as she knows he is on it for sleep -ON 06/27/18: had trouble sleeping and sensation of bugs crawling on skin - increased seroquel dose to 50mg again with improvement in symptoms -if pt having trouble sleeping pt has benadryl 25mg IV ordered #1hr episode of chest pain at rest on 06/25/18 No EKG changes, Trop neg x 2. X-ray of the ribs showed previously healed left sided rib fractures # 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: Noted in the chart. Good blood pressure control and surveillance DVT prophylaxis: Xarelto for afib FEN - Heart Healthy PT / OT consulted - inpatient rehab vs. SNF DNR - however ok for mechanical intubation should his breathing worsen. DISPO: Ibrahima plata likely tomorrow pending clinical improvement (2) Failure to thrive: (3) DVT prophylaxis: (4) AAA (abdominal aortic aneurysm): (5) CHF (congestive heart failure): (6) Hyperthyroidism: (7) Depression: Supervising Physician Co-Signing Physician Notes Attending attestation Pt seen and examined in concert with Dr. Miranda. In agreement with the documented findings as noted in the resident documentation with any exceptions or additions as noted here. Pt resting comfortably in chair. Improving LE and scrotal edema, good response to diuresis w/ lasix. Reports no CP/SOB, n/v/d/c, WATERS, lightheadedness, sensory change. On examination, S1/S2 nl RRR no MCG. CTAB. Abd NT/ND BS+ve. 1+ pitting edema of the b/l LE to the ankle Acute on chronic systolic CHF w/ LE and scrotal edema - additional furosemide IV with good response and decrease in O2 requirement. Monitor I/O/resp, likely stable for d/c in AM Falls, multifactorial - no apparent recurrence of symptomatic dizziness on quetiapine thus far. Continue present care Subjective This AM and ON pt was on 4L. Diuresed 3200cc s/p lasix IV 20mg. Weaned to 2L. Weight down to 87.9kg. Pt reports only CASTREJON and improving scrotal edema. ROS: No WATERS/dizziness, chest pain, fevers, chills, nausea, vomiting, diarrhea, dysuria Physical Exam 2 Vital Signs (Past 24 Hours): Last Vital Signs Temp 37.0 C 06/30/18 15:44 Pulse 82 06/30/18 15:44 Resp 18 06/30/18 15:44 BP 149/87 H 06/30/18 15:44 Pulse Ox 91 06/30/18 16:00 Physical Exam: General: In NAD, pleasant sitting up on side of bed CV: irregular rhythm, 2/6 systolic murmur, split S2; no rubs or gallops Pulm: diminished breath sounds, RUL and RML wheezing and bibasilar crackles appreciated Abdomen: +BS, NTTP in all quadrants and non-distended : much improved scrotal edema compared to yesterday LE: no LE pitting edema or calf tenderness Results & Data Laboratory Results Abnormal lab results 06/30/18 06/30/18 Range/Units 07:09 07:09 RBC 4.31 L (4.7-6.1) M/uL Hgb 10.4 L (14.0-18.0) g/dL Hct 34.1 L (42-52) % MCV 79.1 L (80-100) fL MCH 24.1 L (25-34) pg MCHC 30.5 L (32-36) g/dL RDW Std Deviation 52.3 H (36.4-46.3) fL RDW Coeff of Jennifer 18.6 H (11.5-14.5) % Immature Gran # (Auto) 0.03 H (0.00-0.02) K/uL Lymph # (Auto) 1.12 L (1.2-3.4) K/uL [place] # (Auto) 1.22 H (0.11-0.59) K/uL Carbon Dioxide 34 H (21-32) mmol/L BUN 21 H (7-18) mg/dl Glucose 103 H (70-99) mg/dl Calcium 8.3 L (8.5-10.1) mg/dl Medications Administered Current Inpatient Medications Acetaminophen (Tylenol) 650 mg PO Q4H PRN PRN Reason: pain/fever Stop: 07/24/18 21:23 Last Admin: 06/28/18 01:17 Dose: 650 mg Al Hydrox/Mg Hydrox/Simethicone (Maalox) 30 ml PO Q6H PRN PRN Reason: Dyspepsia Stop: 07/24/18 21:23 Albuterol (Duoneb) 3 ml NEB Q6R [facility] Stop: 07/30/18 13:59 Last Admin: 06/30/18 13:28 Dose: 3 ml Aspirin (Ecotrin) 81 mg PO QAM [facility] Stop: 07/25/18 08:59 Last Admin: 06/30/18 07:53 Dose: 81 mg Atorvastatin Calcium (Lipitor) 40 mg PO HS [facility] Stop: 07/24/18 21:23 Last Admin: 06/29/18 20:52 Dose: 40 mg Diphenhydramine HCl (Benadryl) 25 mg IV HS PRN PRN Reason: Sleep Stop: 07/28/18 13:44 Docusate Sodium (Colace) 100 mg PO BID [facility] Stop: 07/24/18 21:23 Last Admin: 06/30/18 07:53 Dose: 100 mg Ferrous Gluconate (Ferrous Gluconate) 324 mg PO TIDM [facility] Stop: 07/26/18 16:59 Last Admin: 06/30/18 16:54 Dose: 324 mg Furosemide (Lasix) 60 mg PO QAM [facility] Stop: 07/25/18 08:59 Last Admin: 06/30/18 07:53 Dose: 60 mg Lorazepam (Ativan) 0.25 mg PO QPM PRN PRN Reason: Agitation Stop: 07/29/18 00:33 Last Admin: 06/30/18 00:24 Dose: 0.25 mg Methimazole (Tapazole) 5 mg PO HS [facility] Stop: 07/24/18 21:23 Last Admin: 06/29/18 20:51 Dose: 5 mg Metoprolol Tartrate (Lopressor) 25 mg PO BID [facility] Stop: 07/24/18 21:23 Last Admin: 06/30/18 07:54 Dose: 25 mg Nitroglycerin (Nitrostat) 0.4 mg SL UD PRN PRN Reason: chest pain Stop: 07/24/18 21:23 Polyethylene Glycol (Miralax Powder Packet) 17 gm PO DAILY [facility] Stop: 07/27/18 08:59 Last Admin: 06/30/18 07:54 Dose: 17 gm Quetiapine Fumarate (Seroquel) 50 mg PO HS [facility] Stop: 07/28/18 20:59 Last Admin: 06/29/18 20:51 Dose: 50 mg Rivaroxaban (Xarelto) 15 mg PO PM [facility] Stop: 07/24/18 21:23 Last Admin: 06/29/18 20:52 Dose: 15 mg Sertraline HCl (Zoloft) 50 mg PO QAM [facility] Stop: 07/25/18 08:59 Last Admin: 06/30/18 07:54 Dose: 50 mg Zolpidem Tartrate (Ambien) 5 mg PO HS PRN PRN Reason: Sleep Stop: 07/24/18 21:23 Last Admin: 06/25/18 21:17 Dose: 5 mg Resident Activity Tracking Resident Involvement: Resident Care Provided Care Provided: [facility] Medicine _ (1) CHF (congestive heart failure) Heart failure chronicity: acute Heart failure type: systolic Qualified Code( s): I50.21 - Acute systolic (congestive) heart failure (2) Depression Active/Remission status: Depression Type: unspecified Major depression episode severity: Major depression recurrence: Psychotic features: Trimester: Qualified Code(s): F32.9 - Major depressive disorder, single episode, unspecified (3) Failure to thrive Failure to thrive age range: in adult Qualified Code(s): R62.7 - Adult failure to thrive
[2018-06-30] MEDS: QUETIAPINE FUMARATE 25 MG TABLET PO SCH (20:44)
[2018-06-30] MEDS: RIVAROXABAN 15 MG TAB PO SCH (20:45)
[2018-06-30] MEDS: methIMAzole 5 MG TABLET PO SCH (20:45)
[2018-06-30] MEDS: ATORVASTATIN 40 MG TAB PO SCH (20:47)
[2018-07-01] MEDS: ALBUT/IPRATROP 3MG/0.5MG NEB 3 ML VIAL NEB SCH ×2 (01:52→07:32)
[2018-07-01] MEDS: LORazepam 0.5 MG TAB PO PRN (03:05)
[2018-07-01] MEDS: DOCUSATE SODIUM 100 MG CAP PO SCH (08:10)
[2018-07-01] MEDS: FERROUS GLUCONATE 324 MG TAB PO SCH ×2 (08:10→11:12)
[2018-07-01] MEDS: POLYETHYLENE (MIRALAX) 17 GM PACK PO SCH (08:10)
[2018-07-01] MEDS: METOPROLOL TARTRATE 50 MG TAB PO SCH (08:10)
[2018-07-01] MEDS: ASPIRIN 81 MG ECTAB PO SCH (08:10)
[2018-07-01] MEDS: FUROSEMIDE 40 MG TAB PO SCH (08:10)
[2018-07-01] MEDS: SERTRALINE HCL 50 MG TABLET PO SCH (08:10)
[2018-07-01 08:17] LABS: BUN Creatinine Ratio 16.7 (10-20); Calcium 8.6 mg/dl (8.5-10.1); Creatinine Clr Calc Pharmacy 53.1 ml/min; Est GFR (African American) 66.9; Est GFR (Non-African American) 57.7; Potassium 3.8 mmol/L (3.5-5.1)
--- NOTE | 2018-07-02 20:01 | Discharge Summary ---
Date of Service July 02, 2018 Admission HPI Per Admitting Provider 87M with a PMHx of of AAA, HTN, CHF EF 25-30%, HTN, GERD, Afib presents to the ER for two recent falls and "just not feeling himself" Pt was recently admitted for acute on chronic systolic CHF and discharged to a SNF. Pt has home health and reports his home nurse was telling him to go to the hospital. Pt reports his falls occured when he was sitting, the first fall was around 4am today, he felt dizzy and fell of his chair sideways. the 2nd fall was similar and he fell forward. Pt does have a loop recording from his previous admission. Pt has also come to the realization he cannot take care of himself at home he states. ROS: Pt states he hasn't been able to pee for a few days because his testicle is swollen. ER Course: Pt has a severe contrast allergy and was premedicated with Benadryl and Solu Medrol however he did not receive any contrast. CT Head, neck, Abdo pelvis are negative. Pt will be admitted for a fall and possible placement. 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 (Chronic ) Hyperthyroidism Lymphoma (Chronic) HTN (hypertension) (Chronic) CHF (congestive heart failure) (Chronic) EF 25-30% (May 14) Hypertension (Chronic) GERD (gastroesophageal reflux disease) (Chronic) Chronic obstructive pulmonary disease (Chronic) Depression (Chronic) Atrial fibrillation (Chronic) Cancer Stroke Admission Exam (Per Admitting) Constitutional Respiratory: no labored breathing and no cough Auscultation: + wheezes ( faint expiratory wheezing bilaterally, otherwise lungs clear to ausculation, no respiratory distress) Cardiovascular: RRR, no murmur, no edema (irregular irregular, no murmurs rubs or gallos, loop recording subcutaneous on left) Vessels: no JVD Extremities: no calf tenderness, no pedal edema and no edema Gastrointestinal (Abdomen): normal bowel sounds, soft, nontender, no hepatosplenomegaly Inspection/Auscultation: abdomen normal to inspection and + abdomen distended Percussion/Palpation: abdomen soft; abdomen nontender, no guarding and abdomen not rigid Musculoskeletal: no cyanosis or clubbing, extremities motor strength 5/5 Head/Neck/Chest: + head abnormal to inspection, normocephalic and head atraumatic Extremities: extremities normal to inspection and strength 5/5 throughout Skin: + lesion (ecchymosis over left big toe) Neurologic: patellar DTR's 2+ bilat, sensation intact and PERRL, EOMI, accommodation nl, no face palsy, no dysarthria Psychiatric: A+Ox3, euthymic affect Orientation: alert, oriented x 3, oriented to person, oriented to place and oriented to time Discharge Data Consultations 06/24/18 16:34 ED Decision to Admit Stat 06/24/18 21:24 Consult Case Management - Discharge Planning Stat 06/25/18 06:58 Consult Cardiology Routine Hospital Course (1) Fall: 87M with a PMHx of of AAA, HTN, CHF EF 55-60% on 05/15 echo, HTN, GERD, and Afib presented to the ER s/p two recent falls and was admitted for concern of failure to thrive/need for placement on 06/24. 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 Remains admitted with now improving dyspnea in the setting of CHF exacerbation with adequate diuresis. Improved hallucinations after Seroquel increased to home dosage of 50 mg. # Falls 2/2 Dizziness vs Deconditioning vs hypotension/arrhythmia Falls preceded by dizziness and sliding off his chair. 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 Loop interrogated - multiple activations, per cards no acute pathology that can explain pt's falls. Last admission TILT table testing negative. Per Cards - no obvious cards etiology for falls; will likely need detention placement. PT/OT-recommend inpatient rehab vs. SNF - Discharged to [facility] Dizziness improved # Acute CHF on Chronic Systolic CHF - improved exam and on 2L now Pt doesn't appear volume overloaded in the extremities, discharge weight 1 month ago was 84kg. Daily weights 90kg-->87.9 AM Received 20mg IV Lasix 06/30/2017 Continue home 60mg PO Lasix daily Continue TWIN, Metoprolol 25mg PO BID, ASA 81mg daily and Lipitor ECHO (04/2018) - mildly dilated Left Ventricle , EF 55-60%, severely dilated right ventricle with mildly reduced systolic function severe biatrial dilation, severe mitral regurgitation, severe tricuspid reguritation, severe PULM HTN Cards - acute chf, no new recommendations BASED ON ABOVE ECHO FINDING, EVALUATE FOR SLEEP APNEA ON DISCHARGE #Afib c/w metoprolol 25mg po BID, and Xarelto #Recurrent Wheezing 1st episode on 06/25/28 (resolved 06/26/18) and 2nd - 06/30/18 Pt denies significant smoking history, COPD on the [facility] problem list however patient denied and not on any inhalers. No COPD history in chart review from [facility]. On Duoneb Q6H michaela - exam improved after treatments Due to shortness of breath and wheezing, will continue Nebulizer therapy on discharge with Duonebs PRN # Scrotal edema - improving s/p diuresis Scrotal us: b/l hydrocele and varicocele Re-evaluate scrotal edema on discharge with continued diuresis # Hyperthyroidism: History of hyperthyroidism on methimazole and beta-josefina. TSH and FT4 were 1.85/0.8 on 05/13 (within normal). TSH WNL, Free T4 is 0.78 Continue beta-josefina and methimazole. # Depression/sleep: Pt on sertraline 50mg daily & Seroquel 50mg QHS at home Seroquel dose decreased to 25mg QHS with improvement in dizziness. - Improvement with decreased dose although resumed home 50mg dose of seroquel due to sleep abnormalities --> Dizziness did not reccur #1hr episode of chest pain at rest on 06/25/18 No EKG changes, Trop neg x 2. X-ray of the ribs showed previously healed left sided rib fractures # 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: Noted in the chart. Good blood pressure control and surveillance DISPO: Discharged to [facility] Exam: GENERAL: Awake, alert, in no distress HENT: Normocephalic, atraumatic. EYES: Normal conjunctiva. Sclera non-icteric. NECK: Supple. No nuchal rigidity. RESPIRATORY: Crackles at lung bases, no increased work of breathing or labored breathing CARDIAC: Irregularly Irregular. Extremities warm and well perfused. Pulses equal. ABDOMEN: Soft, non-distended. No tenderness to palpation. MUSCULOSKELETAL: Chest examination reveals no tenderness. The back is symmetrical on inspection without obvious abnormality. There is no CVA tenderness to palpation. LOWER EXTREMITIES: Calves are equal size bilaterally and non-tender. No edema. No discoloration. NEURO: Normal sensorium. No sensory or motor deficits noted. SKIN: No rash or jaundice noted. (2) Failure to thrive: (3) DVT prophylaxis: (4) AAA (abdominal aortic aneurysm): (5) CHF (congestive heart failure): (6) Hyperthyroidism: (7) Depression: Resident Activity Tracking Resident Involvement: Resident Care Provided Care Provided: Adult Hospital Medicine
== END 2018-07-01 13:30 ==
LOC: ED 13:42 → 2N 18:50 → SUATTDRO 18:50 → 2N 20:34

== ENCOUNTER 2018-12-14 15:32 | Inpatient (IN) ==
--- OUTSIDE RECORDS SUMMARY | 2018-12-14 15:34 | External Medical Summary | Continuity of Care Document ---
:1930 Author Name Peter Melissa Address Unavailable Unavailable , Care Team Providers Name Role Phone Selena Kelsey PA-C Unavailable [email or web address] Michele Garcia M.D. Unavailable [email or web address] DANIELLE II, C Unavailable Unavailable Unavailable Unavailable Unavailable Problems Esophageal reflux (530.81) (K21.9) Lumbar discitis (722.93) (M46.46) Multinodular goiter (241.1) (E04.2) Hyperthyroidism (242.90) (E05.90) Chronic kidney disease, stage III (moderate) (585.3) (N18.3) SHAY (acute kidney injury) (584.9) (N17.9) Muscle spasm (728.85) (M62.838) Constipation (564.00) (K59.00) Vertigo (780.4) (R42) History of SBE (subacute bacterial endocarditis) (V12.59) (Z 86.79) Hypertension (401.9) (I10) Syncope (780.2) (R55) Former smoker (V15.82) (Z87.891) Chronic systolic congestive heart failure (428.22) (I50.22) Chronic diastolic congestive heart failure (428.32) (I50.32) Paroxysmal ventricular tachycardia (427.1) (I47.2) Cardiomyopathy, 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 Quantity: 30 Refills: 11 SEROquel 50 MG Oral Tablet; TAKE 1 TABLET DAILY. Refills: 0 Xarelto 15 MG Oral Tablet; 1 Tablet daily with your evening meal. Quantity: 90 Refills: 3 methIMAzole 5 MG Oral Tablet; take 1 tablet by mouth IN THE PM Refills: 0 Sertraline HCl - 50 MG Oral Tablet; TAKE 1 TABLET EVERY DAY Quantity: 90 Refills: 3 Metoprolol Tartrate 50 MG Oral Tablet; TAKE 1/2 TABLET BY MO UT TWICE DAILY Refills: 0 Pantoprazole Sodium 40 MG Oral Tablet De layed Release; TAKE 1 TABLET BY MOUTH ON ODD DAYS ONLY Refills: 0 MiraLax Oral Packet Refills: 0 Senokot 8.6 MG Oral Tablet; TAKE 2 TABLETS DAILY NEEDED Refills: 0 Atorvastatin Calcium 40 MG Oral Tablet; TAKE 1 TABLET DAILY. Quantity: 30 Refills: 11 Aspirin 81 MG TABS; TAKE 1 TABLET DAILY. Refills: 0 Furosemide 40 MG Oral Tablet; TAKE 2 TAB LETS BY MOUTH EVRY DAY UNTIL BODY WEIGHT AT BASELINE, Then reduce to 1.5 tablets daily. ANGÉLICA Kelsey Marlen Quantity: 60 Refills: 11 Multi Vitamin/Minerals Oral Tablet; TAKE 1 TABLET DAILY. Refills: 0 Vitamin D3 2000 UNIT Oral Tablet; Take 1 tablet daily Refills: 0 Procedures History of cardiac catheterization Statu s: Completed Immunizations Influenza On: 2013 Pneumococcal polysaccharide vaccine, 23 valent On: 09-Oct-19 15 Family History Unknown Family Member Family history of Hypertension (V17.49) Status: Active Comments: Family History Mother Family history of cardiac disorder (V17.49) (Z82.49) Status: Active Father Family history of malignant neoplasm of prostate (V16. 42) (Z80.42) Status: Active Social History - Smoking Status Former smoker Plan of Treatment Planned Observations Planned Goals not documented Results No Known Results Results not documented Encounters Appointment; Trevon Kelsey PA-C 08-Jun-2018 14:30 Encounter Diagnosis: Problem not documented Appointment; Kenroy Rowland M.D. 05-Aug-2017 13:00 Encounter Diagnosis: Problem not documented
[2018-12-14 16:36] LABS: Basophils # (auto) 0.01 K/uL (0-0.2); Basophils % (auto) 0.2 %; Eosinophils # (auto) 0.13 K/uL (0-0.5); Eosinophils % (auto) 2.8 %; Hematocrit (blood only) 35.2 % (42-52); Hemoglobin 11.2 g/dL (14.0-18.0); Immature Granulocytes # (auto) 0.01 K/uL (0.00-0.02); Immature Granulocytes % (auto) 0.2 %; Lymphocytes # (auto) 1.02 K/uL (1.2-3.4); Lymphocytes % (auto) 21.8 %; Mean Corpuscular Hgb Conc 31.8 g/dL (32-36); Mean Corpuscular Volume 90.3 fL (80-100); Mean Platelet Volume 11.3 fL (7.4-10.4); Monocytes # (auto) 0.55 K/uL (0.11-0.59); Monocytes % (auto) 11.8 %; Neutrophils # (auto) 2.95 K/uL (1.4-6.5); Neutrophils % (auto) 63.2 %; Platelet Count 143 K/uL (130-400); RDW Coefficient of Variation 16.6 % (11.5-14.5); White Blood Count 4.67 K/uL (4.8-10.8)
--- NOTE | 2018-12-14 16:41 | XRay Report ---
XR chest 1V portable HISTORY: 88 years-old Male Chest Pain acute atypical chest pain COMPARISON: Chest radiograph 06/29/2018, and 05/17/2018, chest CT 06/24/2018. TECHNIQUE: Portable AP view of the chest FINDINGS: Cardiac silhouette is enlarged, unchanged. Asymmetric right hilar prominence redemonstrated with find ings suggestive of pulmonary arterial hypertension. Calcification the thoracic aortic arch. Mild distribution lead urszula interstitial coarsening with suggestion of trace pleural effusions. Bibasilar opacities without p neumothorax or overt pulmonary edema. Loop recorder device noted about the left chest. Degenerative c hanges of the shoulders and spine. IMPRESSION: 1. Cardiomegaly without overt pulmonary edema. 2. Findings suggestive of pulmonary arterial hypertension. 3. Subsegmental bibasilar atelectasis with probable trace effusions. The above report was generated using voice recognition software. It may contain grammatical, syntax o r spelling errors. Electronically signed by: Troy Calzada M.D. 12/14/2018 4:40 PM
[2018-12-14 16:44] LABS: Albumin Level 3.7 gm/dl (3.4-5.0); BUN Creatinine Ratio 19.8 (10-20); Bilirubin Direct 0.2 mg/dl (0-0.2); Calcium 8.2 mg/dl (8.5-10.1); Creatinine Clr Calc Pharmacy 45.7 ml/min; Est GFR (African American) 54.7; Est GFR (Non-African American) 47.2; Magnesium 2.5 mg/dl (1.8-2.4); Potassium 3.9 mmol/L (3.5-5.1)
[2018-12-14 16:47] LABS: Albumin Globulin Ratio 1.2 (0.9-2); Bilirubin,Total 0.7 mg/dl (0.2-1); Globulin 3.2 gm/dl (2.5-4.0); Phosphorus 3.4 mg/dl (2.5-4.9); Total Protein 6.9 gm/dl (6.4-8.2); Troponin I 0.018 ng/ml (0-0.045)
[2018-12-14] MEDS ORDERED: FUROSEMIDE 40 MG/4 ML VIAL IV STA (17:17)
[2018-12-14 18:18] LABS: Appearance Urine Clear (Clear); Bilirubin Urine Negative (Negative); Blood Urine Negative (Negative); Color Urine Yellow; Glucose Urine UA Negative (Negative); Ketones Urine Negative (Negative); Leukocyte Esterase Urine Negative (Negative); Nitrite Urine Negative (Negative); Protein Urine Negative (Negative); Specific Gravity Urine 1.017 (1.000-1.030); Urobilinogen Urine Negative (Negative)
--- NOTE | 2018-12-14 19:13 | Emergency Department Note ---
Entered by Nathaniel Ramos acting as a scribe for Mervin Trejo MD History of Present Illness General Chief complaint: Shortness of Breath/Dyspnea Stated complaint: SOB, REFERRED BY PCP Time Seen by Provider: 12/14/18 16:16 Source: patient History of Present Illness Provider complaint: Shortness of breath Onset (ago): hour(s) (This afternoon) Location: chest Severity: similar to prior episodes Pain Consistency: + constant Relieved By: + none Exacerbated By: + movement Associated symptoms: + fever/chills (No fevers) and + other (Positive fluid retention; Negative diarrhea); no nausea/vomiting The patient is an 88 year old male who presents to the Emergency Room after being referred by his PCP, with complaints of constant shortness of breath that has been present since this afternoon. The patient states his symptoms are worse with movement and nothing seems to resolve them. He also has had increased fluid retention and weight gain over the past couple days. The patient is on Bumex, but when this medication does not seem to be working, he typically is sent to the ED for IV medication. The patient notes back in August he was switched from Lasix to Bumex for his fluid management. While on Lasix his PCP gave him instructions to increase dosage when he started retaining more fluid, but he never received these instructions for Bumex. The patient mentioned that he also has a swollen testicle, which he did see urology for a few days ago. The urologist told him the swelling is most likely due to the fluid retention. The patient does not use oxygen at baseline. While coming to the ED, he started experiencing hot and cold flashes, but denies any objective fevers. He also denies any nausea, vomiting, or diarrhea. Home Medications Home Medications Medication Instructions Recorded Confirmed Type Xarelto 15 mg PO QAM 05/11/18 12/14/18 History aspirin [Aspirin Childrens] 81 mg PO QAM 05/11/18 12/14/18 History atorvastatin 40 mg PO HS 05/11/18 12/14/18 History ergocalciferol (vitamin D2) 50,000 unit PO WK 05/11/18 12/14/18 History [Vitamin D2] methimazole 5 mg PO DAILY 05/11/18 12/14/18 History metoprolol tartrate 12.5 mg PO BID 05/11/18 12/14/18 History quetiapine 50 mg PO HS 05/11/18 12/14/18 History sertraline 50 mg PO QAM 05/11/18 12/14/18 History lisinopril 5 mg PO DAILY #30 tab 05/18/18 12/14/18 Rx bumetanide 1 mg PO BID 12/14/18 12/14/18 History calcium citrate [Calcitrate] 200 mg PO BID 12/14/18 12/14/18 History docusate sodium [Colace] 100 mg PO BID 12/14/18 12/14/18 History ferrous sulfate 650 mg PO HS 12/14/18 12/14/18 History pantoprazole [Protonix] 40 mg PO 3XWK 12/14/18 12/14/18 History Allergies Allergy/AdvReac Type Severity Reaction Status Date / Time Iodinated Contrast- Oral and Allergy Severe ANAPHYLAXIS Verified 12/14/18 17:12 IV Dye Sulfa (Sulfonamide Allergy Unknown UNKNOWN Verified 12/14/18 17:12 Antibiotics) Past Med/Surg History Medical History Cholelithiasis 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 (Chronic) Hyperthyroidism Lymphoma (Chronic) HTN (hypertension) (Chronic) CHF (congestive heart failure) (Chronic) EF 25-30% (May 14) Hypertension (Chronic) GERD (gastroesophageal reflux disease) (Chronic) Chronic obstructive pulmonary disease (Chronic) Depression (Chronic) Atrial fibrillation (Chronic) Cancer lYMPHOMA Congestive heart failure Stroke Surgical History History of cardiac cath Family History Unknown Myocardial infarction Social History Preferred Language: Greek Communication Ability: Effective Visual Impairment: Partially Limited Beliefs That Will Affect Care: None marital status: / Current Living Situation: Alone Feels Safe at Home: Yes Safety Concerns: Feels Safe At This Time Smoking Status: Never smoker Second Hand Exposure: No Hx Alcohol Use: No Hx Substance Use: No Review of Systems See HPI for pertinent positives & negatives. and A total of 10 systems reviewed and were otherwise negative Physical Exam Vital Signs Vital Signs - 24 hr 12/14/18 16:00 12/14/18 16:16 12/14/18 17:17 Temperature 36.6 C Temperature Source Oral Sepsis Recent Fever Within 48 Hours No Sepsis New/Unexplained Change in Mental Status No Sepsis Action Taken by Nursing No Action Required Pulse Rate 77 Pulse Rate [Apical] 73 Pulse Rate [Exercises] Pulse Rhythm [Apical] Regular Pulse Strength [Apical] Normal Respiratory Rate 18 20 Respiratory Rate [Exercises] Respiratory Effort / Characteristics Non-Labored Spontaneous Non-Labored Spontaneous Respiratory Depth Normal Normal Respiratory Pattern Regular Blood Pressure 147/97 H Blood Pressure [Right Arm] 164/101 H Blood Pressure Mean 113 Blood Pressure Mean [Right Arm] 122 Blood Pressure Position [Right Arm] Sitting Pulse Oximetry 92 95 93 Pulse Oximetry [Exercises] Oxygen Delivery Method Room Air Room Air Room Air 12/14/18 17:54 12/14/18 19:29 12/14/18 19:37 Temperature Temperature Source Sepsis Recent Fever Within 48 Hours Sepsis New/Unexplained Change in Mental Status Sepsis Action Taken by Nursing Pulse Rate Pulse Rate [Apical] 74 Pulse Rate [Exercises] 89 Pulse Rhythm [Apical] Pulse Strength [Apical] Respiratory Rate 25 H Respiratory Rate [Exercises] 25 H Respiratory Effort / Characteristics Non-Labored Spontaneous Respiratory Depth Normal Respiratory Pattern Regular Blood Pressure Blood Pressure [Right Arm] 155/77 H Blood Pressure Mean Blood Pressure Mean [Right Arm] 103 Blood Pressure Position [Right Arm] Sitting Pulse Oximetry 95 93 Pulse Oximetry [Exercises] 87 L Oxygen Delivery Method Room Air Room Air Room Air GENERAL: Awake, alert, well-appearing, in no distress HENT: Normocephalic, atraumatic. Oropharynx unremarkable. EYES: Normal conjunctiva. Sclera non-icteric. NECK: Supple. No nuchal rigidity. FROM. No JVD. RESPIRATORY: Diminished breath sounds at the bases and otherwise clear. CARDIAC: Regular rate, normal rhythm. Extremities warm and well perfused. Pulses equal. ABDOMEN: Mildly distended but soft. No tenderness to palpation. No rebound or guarding. No masses. RECTAL: Deferred. MUSCULOSKELETAL: Chest examination reveals no tenderness. The back is symmetrical on inspection without obvious abnormality. There is no CVA tenderness to palpation. No joint edema. LOWER EXTREMITIES: Calves are equal size bilaterally and non-tender. Scant edema. No discoloration. NEURO: Normal sensorium. No sensory or motor deficits noted. SKIN: No rash or jaundice noted. Course 1640: The patient was evaluated in room C12B, and a complete history and physical examination were performed. 1745: I reassessed the patient and he is agreeable with the plan to reevaluate after diuresis. 5: I spoke to Dr. Baugh [facility] Hospitalist about the patient's case and he is going to accept him for further evaluation. 2020: I updated the patient on the treatment plan and he is in agreement. Consultations Consultation #1: I spoke to Dr. Baugh [facility] Hospitalist about the patient's case and he is going to accept him for further evaluation. Time: 19:45 Administered Medications Acetaminophen (Tylenol) 650 mg PO Q4H PRN PRN Reason: Pain or Fever Stop: 01/13/19 21:03 Last Admin: 12/14/18 22:12 Dose: 650 mg Documented by: [id number] Atorvastatin Calcium (Lipitor) 40 mg PO HS DAVID Stop: 01/13/19 21:03 Last Admin: 12/14/18 23:16 Dose: 40 mg Documented by: [id number] Calcium Citrate (Citracal) 950 mg PO BID DAVID Stop: 01/13/19 21:03 Last Admin: 12/14/18 23:16 Dose: 950 mg Documented by: [id number] Docusate Sodium (Colace) 100 mg PO BID DAVID Stop: 01/13/19 21:03 Last Admin: 12/14/18 23:16 Dose: 100 mg Documented by: [id number] Ferrous Sulfate (Feosol) 650 mg PO HS DAVID Stop: 01/13/19 21:03 Last Admin: 12/14/18 23:16 Dose: 650 mg Documented by: [id number] Metoprolol Tartrate (Lopressor) 12.5 mg PO BID DAVID Stop: 01/13/19 21:03 Last Admin: 12/14/18 23:16 Dose: 12.5 mg Documented by: [id number] Potassium Chloride (Klor-Con M10) 10 meq PO TID DAVID Stop: 01/13/19 21:03 Last Admin: 12/14/18 23:18 Dose: 10 meq Documented by: [id number] Quetiapine Fumarate (Seroquel) 50 mg PO HS DAVID Stop: 01/13/19 21:03 Last Admin: 12/14/18 23:16 Dose: 50 mg Documented by: [id number] Discontinued Medications Furosemide (Lasix) 40 mg IV NOW STA Stop: 12/14/18 17:18 Last Admin: 12/14/18 17:40 Dose: 40 mg Documented by: [id number] Bumetanide 1 mg/ Syringe 4 mls @ 4 mls/min IV ONE ONE Stop: 12/14/18 23:31 Last Admin: 12/14/18 23:34 Dose: 4 mls/min Documented by: [id number] Tramadol HCl (Ultram) 50 mg PO NOW STA Stop: 12/15/18 00:04 Last Admin: 12/15/18 00:18 Dose: 50 mg Documented by: [id number] Medical Decision Making Differential Diagnosis Differential diagnoses includes but is not limited to pneumonia, bronchitis, COPD/Asthma exacerbation, pneumothorax, pulmonary embolism, congestive heart failure, acute coronary syndrome Medical Records Attestation: I reviewed the patient's medical records. Home Medications Current Medication List: was personally reviewed by me Laboratory Data Attestation: I reviewed the patient's lab results. Result diagrams: 12/14/18 15:57 12/14/18 15:57 Lab Results 12/14/18 12/14/18 12/14/18 Range/Units 15:57 15:57 18:03 WBC 4.67 L (4.8-10.8) K/uL RBC 3.90 L (4.7-6.1) M/uL Hgb 11.2 L (14.0-18.0) g/dL Hct 35.2 L (42-52) % MCV 90.3 (80-100) fL MCH 28.7 (25-34) pg MCHC 31.8 L (32-36) g/dL RDW Std Deviation 54.0 H (36.4-46.3) fL RDW Coeff of Jennifer 16.6 H (11.5-14.5) % Plt Count 143 (130-400) K/uL MPV 11.3 H (7.4-10.4) fL Immature Gran % (Auto) 0.2 % Neut % (Auto) 63.2 % Lymph % (Auto) 21.8 % [place] % (Auto) 11.8 % Eos % (Auto) 2.8 % Baso % (Auto) 0.2 % Immature Gran # (Auto) 0.01 (0.00-0.02) K/uL Neut # (Auto) 2.95 (1.4-6.5) K/uL Lymph # (Auto) 1.02 L (1.2-3.4) K/uL [place] # (Auto) 0.55 (0.11-0.59) K/uL Eos # (Auto) 0.13 (0-0.5) K/uL Baso # (Auto) 0.01 (0-0.2) K/uL Sodium 144 (136-145) mmol/L Potassium 3.9 (3.5-5.1) mmol/L Chloride 109 H (98-107) mmol/L Carbon Dioxide 32 (21-32) mmol/L Anion Gap 3.0 (3-11) BUN 27 H (7-18) mg/dl Creatinine 1.35 (0.6-1.4) mg/dl Est Cr Clr Drug Dosing 45.7 ml/min Est GFR ( Amer) 54.7 Est GFR (Non-Af Amer) 47.2 BUN/Creatinine Ratio 19.8 (10-20) Glucose 93 (70-99) mg/dl Calcium 8.2 L (8.5-10.1) mg/dl Phosphorus 3.4 (2.5-4.9) mg/dl Magnesium 2.5 H (1.8-2.4) mg/dl Total Bilirubin 0.7 (0.2-1) mg/dl Direct Bilirubin 0.2 (0-0.2) mg/dl AST 19 (15-37) U/L ALT 15 (12-78) U/L Alkaline Phosphatase 114 (45-117) U/L Troponin I 0.018 (0-0.045) ng/ml NT-Pro-B Natriuret Pep 3564 H (0-1800) pg/ml Total Protein 6.9 (6.4-8.2) gm/dl Albumin 3.7 (3.4-5.0) gm/dl Globulin 3.2 (2.5-4.0) gm/dl Albumin/Globulin Ratio 1.2 (0.9-2) Lipase 83 (73-393) U/L Urine Color Yellow Urine Appearance Clear (Clear) Urine pH 6.0 (4.5-7.5) Ur Specific [place] 1.017 (1.000-1.030) Urine Protein Negative (Negative) Urine Glucose (UA) Negative (Negative) Urine Ketones Negative (Negative) Urine Blood Negative (Negative) Urine Nitrite Negative (Negative) Urine Bilirubin Negative (Negative) Urine Urobilinogen Negative (Negative) Ur Leukocyte Esterase Negative (Negative) Imaging Data Radiologist's Impression: Radiology results as stated below per my review and the radiologist's interpretation: XR chest 1V portable HISTORY: 88 years-old Male Chest Pain acute atypical chest pain COMPARISON: Chest radiograph 06/29/2018, and 05/17/2018, chest CT 06/24/2018. TECHNIQUE: Portable AP view of the chest FINDINGS: Cardiac silhouette is enlarged, unchanged. Asymmetric right hilar prominence redemonstrated with findings suggestive of pulmonary arterial hypertension. Calcification the thoracic aortic arch. Mild chronic interstitial coarsening with suggestion of trace pleural effusions. Bibasilar opacities without pneumothorax or overt pulmonary edema. Loop recorder device noted about the left chest. Degenerative changes of the shoulders and spine. IMPRESSION: 1. Cardiomegaly without overt pulmonary edema. 2. Findings suggestive of pulmonary arterial hypertension. 3. Subsegmental bibasilar atelectasis with probable trace effusions. The above report was generated using voice recognition software. It may contain grammatical, syntax or spelling errors. Electronically signed by: Troy Calzada M.D. 12/14/2018 4:40 PM ECG Data Attestation: I personally reviewed and interpreted this ECG as follows: Indication: SOB/dyspnea Rate (beats per minute): 64 Rhythm: atrial fibrillation Findings: + other (Normal axis); no acute ischemic change Blood Pressure Blood Pressure Findings: Elevated blood pressure Blood Pressure Disposition: Referred to patients primary care provider JB Mcfarland The patient is a pleasant 88-year-old gentleman with a past medical history of CHF, AAA, hypertension, hyperlipidemia, GERD, COPD, A. fib on Xarelto who presents to emergency department referred from outpatient clinic concern for increased fluid overload per hpi. On arrival the patient is in no acute distress, afebrile stable vital signs. He has diminished breath sounds at the bases but is otherwise clear. EKG demonstrates A. fib without overt acute ischemia. Chest x-ray demonstrates venous congestion without overt pulmonary edema. WBC 4.6, nonspecific. H/H 11.2/35.2 improved from prior values. Platel ets within normal limits. Chemistry without acidosis. LFTs unremarkable. Troponin 0.018, within normal limits. BNP 3500 improved from prior value. UA negative. Findings were reviewed with the patient and his daughter at the bedside. We agreed to proceed with IV diuresis and reevaluation for decision to admit versus discharge with increased Bumex. Patient successfully diureses 1L after IV lasix. However, upon ambulatory trial became dyspneic with hypoxia down to 87%. Thus reasonable to admit for further management. Case d/w Dr. Baugh, [facility] hospitalist, who will evaluate the patient for admission. Impression & Plan Fluid overload, CHF (congestive heart failure), Hypoxia Discharge Plan Visit Data *Final* Discharge Date/Time: 12/14/18 20:31 Chief Complaint: Shortness of Breath/Dyspnea Stated Complaint: SOB, REFERRED BY PCP ED Provider: Mervin Trejo Discharge Problem: Fluid overload, CHF (congestive heart failure), Hypoxia Patient Disposition: Admitted As Inpatient Discharge Instructions Interventions: ED Discharge Assessment Last Done: 12/14/18 20:31 Discharge Problem: Fluid overload Qualifiers: Hypervolemia type: unspecified Qualified Code(s): E87.70 - Fluid overload, unspecified CHF (congestive heart failure) Qualifiers: Heart failure type: unspecified Heart failure chronicity: unspecified Qualified Code(s): I50.9 - Heart failure, unspecified The scribe's documentation has been prepared under my direction and personally reviewed by me in its entirety. I confirm that the note above accurately reflects all work, treatment, procedures, and medical decision making performed by me.
--- NOTE | 2018-12-14 19:50 | History & Physical Report ---
Date of Service December 14, 2018 Assessment & Plan (1) CHF exacerbation: 88 M Hx CHF, HTN, HLD, Chronic AF, hyperthyroidism, AAA, anemia, depression. Presents with progressive dyspnea which is pronounced with exertion. He denies CP, a productive cough or fevers. Initial exam and imaging were consistent with volume overload. he was diuresed a litre in the ER which led to some improvement, however, he continued to desaturate with ambulation. Initial labs and an EKG were unremarkable. 1) CHF exacerbation - placed on IV Bumex TID. I/O, daily weights, daily ambulatory pulse ox. It is noted that the pt's primary issue is R sided and severe pulmonary HTN is reported on echo 2018. 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 2) Chronic AF - cont Metoprolol, Xarelto 3) HTN, HLD - cont Lisinopril, metoprolol, atorvastatin 4) AAA - not a surgical candidate - BP, rate control an follow as outpt 5) Hyperthyroidism - cont methimazole 6) Anemia - Hb is at or above baseline 7) Depression - cont sertraline, quetiapine Full code - Xarelto prophylaxis Total time for this admit including review of labs, meds, imaging, records - discussion with pt and ER attending - 40 min Present on Admission?: Yes History of Present Illness Chief Complaint: CHF exacerbation Primary Care Provider: Hakan Willingham 88 M Hx CHF, HTN, HLD, Chronic AF, hyperthyroidism, AAA, anemia, depression. Presents with progressive dyspnea which is pronounced with exertion. He denies CP, a productive cough or fevers. Initial exam and imaging were consistent with volume overload. he was diuresed a litre in the ER which led to some improvement, however, he continued to desaturate with ambulation. Initial labs and an EKG were unremarkable. 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 Daughter lives nearly one hour away. He does not drink or smoke. Family: Father due to prostate CA Mother following an [place] Allergies Allergy/AdvReac Type Severity Reaction Status Date / Time Iodinated Contrast- Oral and Allergy Severe ANAPHYLAXIS Verified 12/14/18 17:12 IV Dye Sulfa (Sulfonamide Allergy Unknown UNKNOWN Verified 12/14/18 17:12 Antibiotics) Home Medications Home Medications Medication Instructions Recorded Confirmed Type Xarelto 15 mg PO QAM 05/11/18 12/14/18 History aspirin [Aspirin Childrens] 81 mg PO QAM 05/11/18 12/14/18 History atorvastatin 40 mg PO HS 05/11/18 12/14/18 History ergocalciferol (vitamin D2) 50,000 unit PO WK 05/11/18 12/14/18 History [Vitamin D2] methimazole 5 mg PO DAILY 05/11/18 12/14/18 History metoprolol tartrate 12.5 mg PO BID 05/11/18 12/14/18 History quetiapine 50 mg PO HS 05/11/18 12/14/18 History sertraline 50 mg PO QAM 05/11/18 12/14/18 History lisinopril 5 mg PO DAILY #30 tab 05/18/18 12/14/18 Rx bumetanide 1 mg PO BID 12/14/18 12/14/18 History calcium citrate [Calcitrate] 200 mg PO BID 12/14/18 12/14/18 History docusate sodium [Colace] 100 mg PO BID 12/14/18 12/14/18 History ferrous sulfate 650 mg PO HS 12/14/18 12/14/18 History pantoprazole [Protonix] 40 mg PO 3XWK 12/14/18 12/14/18 History Past Med/Surg History Medical History Cholelithiasis 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 (Chronic) Hyperthyroidism Lymphoma (Chronic) HTN (hypertension) (Chronic) CHF (congestive heart failure) (Chronic) EF 25-30% (May 14) Hypertension (Chronic) GERD (gastroesophageal reflux disease) (Chronic) Chronic obstructive pulmonary disease (Chronic) Depression (Chronic) Atrial fibrillation (Chronic) Cancer lYMPHOMA Congestive heart failure Stroke Surgical History History of cardiac cath Family History Unknown Myocardial infarction Social History Preferred Language: Kinyarwanda Communication Ability: Effective Visual Impairment: Partially Limited Beliefs That Will Affect Care: None marital status: / Current Living Situation: Alone Feels Safe at Home: Yes Smoking Status: Never smoker Second Hand Exposure: No Hx Alcohol Use: No Hx Substance Use: No Review of Systems Review of Systems: Gen: Denies fevers, night sweats, rigors, fatigue, malaise, weight loss/gain ENT: Denies congestion, throat pain, hearing loss Eyes: Denies acute visual changes CV: Denies CP, palpitations Pulmonary: Progressive dyspnea GI: Denies N/V, diarrhea, constipation Neuro: Denies acute or unilateral weakness, acute gait impairment, headache or acute visual changes Musculoskeletal: Denies joint pain, inflammation Endocrine: Denies polydipsia, polyuria Skin: Denies acute rashes or ulcers Physical Exam Physical Exam: General: Pleasant, elderly M, AAO x 3, no distress at rest ENT: No erythema or exudates, no thrush Eyes: ADALGISA, EOMI Head and neck: Normocephalic, atraumatic, + R JVD, neck is supple. Chest/heart: Nontender, S1,2, RRR, no murmurs, no gallops Lungs: Crackles are audible on the L Abdomen: Nontender, nondistended, BS+ Neuro: AAO x 3, speech is clear, no unilateral weakness or loss of sensation, coordination intact Musculoskeletal: No joint inflammation, muscle tenderness, FROM Skin: No acute rashes or ulcers Extremities: No clubbing, cyanosis, edema Results & Data Vital Signs (Past 12 Hours) Vital Signs Temp Pulse Pulse Pulse Resp Resp BP 12/14/18 19:37 74 25 H 12/14/18 19:29 89 25 H 12/14/18 17:54 12/14/18 17:17 73 20 12/14/18 16:16 12/14/18 16:00 97.9 F 77 18 147/97 H BP Pulse Ox Pulse Ox 12/14/18 19:37 155/77 H 93 12/14/18 19:29 87 L 12/14/18 17:54 95 12/14/18 17:17 164/101 H 93 12/14/18 16:16 95 12/14/18 16:00 92 PG Care Time/CCT Total # of Minutes Spent Total Time Spent with Patient: Total time spent is greater than 50% in coordination of care (as documented) at patient's floor/unit and/or counseling patient:
[2018-12-14] MEDS ORDERED: ONDANSETRON INJ 2 MG/ML 2 ML VIAL IV PRN (21:04)
[2018-12-14] MEDS ORDERED: ALUMINUM/MAGNESIUM SUSP 30 ML UDC PO PRN (21:04)
[2018-12-14] MEDS ORDERED: MAGNESIUM HYDROXIDE SUSP 30 ML UDC PO PRN (21:04)
[2018-12-14] MEDS ORDERED: POLYETHYLENE (MIRALAX) 17 GM PACK PO PRN (21:04)
[2018-12-14] MEDS: ACETAMINOPHEN 325 MG TAB PO PRN (22:12)
[2018-12-14] MEDS: ATORVASTATIN 40 MG TAB PO SCH (23:16)
[2018-12-14] MEDS: FERROUS SULFATE 325 MG TAB PO SCH (23:16)
[2018-12-14] MEDS: QUETIAPINE FUMARATE 25 MG TABLET PO SCH (23:16)
[2018-12-14] MEDS: DOCUSATE SODIUM 100 MG CAP PO SCH (23:16)
[2018-12-14] MEDS: METOPROLOL TARTRATE 25 MG TAB PO SCH (23:16)
[2018-12-14] MEDS: CALCIUM CITRATE 950 MG TAB PO SCH (23:16)
[2018-12-14] MEDS: POTASSIUM CHLORIDE 10 MEQ TABCR PO SCH (23:18)
[2018-12-14] MEDS ORDERED: BUMETANIDE 1 MG in SYRINGE 0 ML IV ONE (23:30)
[2018-12-15] MEDS ORDERED: TRAMADOL HCL 50 MG TABLET PO STA (00:03)
[2018-12-15] MEDS: TRAMADOL HCL 50 MG TABLET PO PRN ×2 (07:43→21:07)
[2018-12-15] MEDS: DOCUSATE SODIUM 100 MG CAP PO SCH ×2 (07:48→21:09)
[2018-12-15] MEDS: POTASSIUM CHLORIDE 10 MEQ TABCR PO SCH ×3 (07:48→21:09)
[2018-12-15] MEDS: methIMAzole 5 MG TABLET PO SCH (07:49)
[2018-12-15] MEDS: METOPROLOL TARTRATE 25 MG TAB PO SCH ×2 (07:49→21:10)
[2018-12-15 07:50] LABS: BUN Creatinine Ratio 19.3 (10-20); Calcium 8.6 mg/dl (8.5-10.1); Creatinine Clr Calc Pharmacy 40.5 ml/min; Est GFR (Non-African American) 42.2; Magnesium 2.6 mg/dl (1.8-2.4); Potassium 3.9 mmol/L (3.5-5.1)
[2018-12-15] MEDS: LISINOPRIL 5 MG TAB PO SCH (07:50)
[2018-12-15] MEDS: ASPIRIN 81 MG ECTAB PO SCH (07:54)
[2018-12-15] MEDS: CALCIUM CITRATE 950 MG TAB PO SCH ×2 (07:54→21:08)
[2018-12-15] MEDS: SERTRALINE HCL 50 MG TABLET PO SCH (07:55)
[2018-12-15] MEDS: BUMETANIDE 2 MG in SYRINGE 0 ML IV SCH ×2 (10:18→17:18)
[2018-12-15] MEDS: RIVAROXABAN 15 MG TAB PO SCH (17:19)
--- NOTE | 2018-12-15 19:57 | Hospitalist Progress Note ---
Date of Service December 15, 2018 Assessment & Plan (1) Acute on chronic systolic (congestive) heart failure: Remains decompensated. Cont bumex diuresis. Cont BB and TWIN. He clearly has memory issues - lives alone by report - is he compliant with meds and diet? Last echo was 2017 - repeat the echo now. Previous EF 25-30%. Has not seen [facility] in clinic in 4+ years. Will need to see if he has been following [facility] as outpatient. Labs am. Present on Admission?: Yes (2) Hyperthyroidism: On methimazole. Last TSH 2017. Repeat TSH am. Present on Admission?: Yes (3) 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: Based on prior scans. Has been deemed not a surgical candidate. No abdominal symptoms today. Present on Admission?: Yes (4) HTN (hypertension): Controlled Cont current meds Present on Admission?: Yes (5) CVA (cerebral vascular accident): history of cont asa and xarelto for secondary prevention along with statin agent (6) Chronic obstructive pulmonary disease: no symptoms or exacerbation at this time (7) Atrial fibrillation: cont BB cont xarelto (8) Chronic kidney disease, stage 3a: creatinine stable today BMP am Baseline CrCl 40s to 50s (9) Hydrocele, bilateral: likely cause of chronic scrotal edema no Rx needed scrotal support (10) DVT prophylaxis: xarelto will need PT, OT to determine post-d/c level of care Subjective patient states he feels better today. less sob. less CASTREJON. does not use O2 at home. lives alone in [place]. he openly admits he "has memory problems." thinks he had been seeing Dr Herrera in the [place] office for his CHF. I spoke with [facility] - records reviewed - no echo in their office in years and he has not been seen by [facility] in 4 years. last echo in [facility] - 2017. Review of Systems Constitutional: no fever Respiratory: no cough Cardiovascular: + chest pain (had an episode at home just prior to coming to hospital ) Gastrointestinal: no abdominal pain Physical Exam Constitutional: well developed and well nourished; no acute distress Neck: trachea midline, no thyromegaly Respiratory: Auscultation: + diminished lung sounds (bases); no rales and no wheezes Cardiovascular: Rate/Rhythm: regular rate; + abnormal rhythm Heart Sounds: normal S1, normal S2 and + murmur (2-3/6 LLSB) Vessels: + JVD (to the jaw), posterior tibial pulses present and dorsalis pedis pulses present Extremities: + edema (trace b/l) Gastrointestinal (Abdomen): normal bowel sounds, soft, nontender, no hepatosplenomegaly Psychiatric: Orientation: alert, oriented to person and oriented to place Genitourinary: + scrotum abnormality and + testicular swelling Results & Data Vital Signs (Past 12 Hours) Vital Signs Temp Pulse Pulse Resp Resp BP Pulse Ox 12/15/18 15:24 36.6 C 64 20 115/70 96 12/15/18 14:50 96 12/15/18 11:45 36.7 C 62 20 146/80 H 96 12/15/18 09:44 12/15/18 08:00 64 18 Pulse Ox Pulse Ox Pulse Ox 12/15/18 15:24 12/15/18 14:50 12/15/18 11:45 12/15/18 09:44 96 12/15/18 08:00 92 94 Laboratory Results Laboratory Results - last 24 hr 12/15/18 12/15/18 06:49 22:45 Sodium 145 143 Potassium 3.9 4.5 D Chloride 109 H 105 Carbon Dioxide 30 36 H Anion Gap 6.0 2.0 L BUN 29 H 34 H Creatinine 1.48 H 1.50 H Est Cr Clr Drug Dosing 40.5 40.0 Est GFR ( Amer) 49.0 48.2 Est GFR (Non-Af Amer) 42.2 41.6 BUN/Creatinine Ratio 19.3 22.7 H Glucose 99 94 Calcium 8.6 9.3 Magnesium 2.6 H PG Care Time/CCT Total # of Minutes Spent Total Time Spent with Patient: Total time spent is greater than 50% in coordination of care (as documented) at patient's floor/unit and/or counseling patient: (1) HTN (hypertension) Hypertension type: essential hypertension Qualified Code(s): I10 - Essential (primary) hypertension (2) CVA (cerebral vascular accident) CVA mechanism: unspecified Qualified Code(s): I63.9 - Cerebral infarction, unspecified (3) Chronic obstructive pulmonary disease COPD type: chronic bronchitis Chronic bronchitis type: simple Qualified Code(s): J41.0 - Simple chronic bronchitis (4) Atrial fibrillation Atrial fibrillation type: chronic Qualified Code(s): I48.2 - Chronic atrial fibrillation
[2018-12-15] MEDS: FERROUS SULFATE 325 MG TAB PO SCH (21:08)
[2018-12-15] MEDS: ATORVASTATIN 40 MG TAB PO SCH (21:09)
[2018-12-15] MEDS: QUETIAPINE FUMARATE 25 MG TABLET PO SCH (21:10)
[2018-12-15 23:38] LABS: BUN Creatinine Ratio 22.7 (10-20); Calcium 9.3 mg/dl (8.5-10.1); Est GFR (African American) 48.2; Est GFR (Non-African American) 41.6; Potassium 4.5 mmol/L (3.5-5.1)
[2018-12-16] MEDS: ACETAMINOPHEN 325 MG TAB PO PRN ×2 (03:16→11:20)
[2018-12-16 06:39] LABS: BUN Creatinine Ratio 22.2 (10-20); Calcium 9.3 mg/dl (8.5-10.1); Est GFR (African American) 48.2; Est GFR (Non-African American) 41.6; Potassium 4.1 mmol/L (3.5-5.1)
[2018-12-16] MEDS: METOPROLOL TARTRATE 25 MG TAB PO SCH (08:23)
[2018-12-16] MEDS: BUMETANIDE 2 MG in SYRINGE 0 ML IV SCH ×2 (08:23→18:35)
[2018-12-16] MEDS: methIMAzole 5 MG TABLET PO SCH (08:24)
[2018-12-16] MEDS: PANTOprazole 40 MG TAB PO SCH (08:24)
[2018-12-16] MEDS: DOCUSATE SODIUM 100 MG CAP PO SCH ×2 (08:24→21:24)
[2018-12-16] MEDS: POTASSIUM CHLORIDE 10 MEQ TABCR PO SCH ×3 (08:24→21:25)
[2018-12-16] MEDS: ASPIRIN 81 MG ECTAB PO SCH (08:25)
[2018-12-16] MEDS: LISINOPRIL 5 MG TAB PO SCH (08:25)
[2018-12-16] MEDS: SERTRALINE HCL 50 MG TABLET PO SCH (08:25)
[2018-12-16] MEDS: CALCIUM CITRATE 950 MG TAB PO SCH ×2 (08:26→21:24)
[2018-12-16] MEDS: TRAMADOL HCL 50 MG TABLET PO PRN ×2 (08:27→21:30)
--- NOTE | 2018-12-16 13:11 | XRay Report ---
XR knee RT 2V routine CLINICAL HISTORY: recent falls, OA trauma. Pain. COMPARISON: None. DISCUSSION: Small cortical avulsion from the superior patella. This is well-corticated and appears to be nonacute. Several synovial calcifications are present. There are mild degenerative changes of all major joint compartments. There is no evidence for soft tissue swelling. IMPRESSION: 1. Mild degenerative change all major joint compartments. 2. Small cortical evulsion from the superior patella felt to be old by radiographic criteria. 3. Several synovial calcifications. The above report was generated using voice recognition software. It may contain grammatical, syntax or spelling errors. Electronically signed by: Bryon Colin M.D. 12/16/2018 1:10 PM
--- NOTE | 2018-12-16 13:13 | XRay Report ---
XR hip RT min 2V CLINICAL HISTORY: recent fall, R hip pain trauma. Pain. COMPARISON: None. DISCUSSION: The bones and joint spaces appear intact. There is no evidence of fracture, dislocation o r bony disease. Minimal degenerative change of the right hip joint space. No evidence for fracture or acetabular protrusion. IMPRESSION: Mild degenerative change right hip. No acute process. The above report was generated using voice recognition software. It may contain grammatical, syntax or spelling errors. Electronically signed by: Bryon Colin M.D. 12/16/2018 1:11 PM
[2018-12-16] MEDS: DICLOFENAC SOD 1% GEL 100 GM TUBE EXT SCH ×3 (14:27→21:25)
[2018-12-16] MEDS: RIVAROXABAN 15 MG TAB PO SCH (15:36)
--- NOTE | 2018-12-16 16:28 | Heart Failure Progress Note ---
Date of Service December 16, 2018 Assessment & Plan (1) CHF (congestive heart failure): He is diuresing nicely on his current dose and his weight is down significantly since admission. Will likely be able to convert her back to PO diuretics soon. Will continue to follow his creatinine. It is slightly elevated from his baseline but has been stable. His "dry weight" according to the outpatient records is listed to be 174 lb in 2018. His his last documented weight is 205 lb in May 2018, lowest documented weight in the chart is 185 lb. I suspect he is near his dry weight currently. EF has normalized as of 04/2018 echocardiogram. Continue guideline based medications as long as he is tolerating without adverse effects. Continue strict I&O's. Recommend daily standing weights. Low-sodium diet. Fluid restriction. Disposition: He is planning a short term stay at [facility] upon discharge. He is agreeable to outpatient follow-up with heart failure program in the [place] location. We will initiate the protocol and plan to see him within 7 days of discharge with labs prior. Recommend Metoprolol succinate in place of Metoprolol tartrate. Would recommend Bumex 2 mg BID at discharge with close follow up. Subjective Mr. 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 Dr. Rowland is his primary creative art director. He has been referred to the heart failure program by Dr. Baron, the primary hospitalist. He had 3 hospital admissions in late 2018 but has been stable in recent months. He presented to the ED on 12/14/18 referred by his PCP for increasing shortness of breath with even minimal exertion. He also noted increased weight gain and swelling. He was previously on Lasix in follow-up a sliding scale for his diuretics. He was switched to Bumex in August, likely by his PCP, and did not receive sliding scale instructions per the patient. He did not try taking any extra diuretics prior to this ED. Chest x-ray demonstrates a mild venous congestion without pulmonary edema. Troponin was within normal limits. EKG unchanged. BNP 3500. He was given both 40 mg of IV Lasix and 1 mg of IV Bumex in the emergency room. He diuresed more than 1 L in the emergency room which led to some improvement but became hypoxic with ambulation. It was decided to admit him for further management. He was initiated on Bumex 2 mg IV BID. Repeat echocardiogram was performed today and demonstrates normal left systolic function with EF 60-65%, no regional wall motion abnormalities are noted. He reports he is feeling improved today. He has no shortness of breath at rest but continues to require supplemental oxygen. He is sleeping with the head of the bed slightly elevated. He has no lower extremity edema and denies abdominal distention. He is -2.5 L this admission and is down 7 kg. Physical Exam Physical Exam: Constitutional: Alert, oriented, in no acute distress HEENT: Head is atraumatic and normocephalic. EOMs intact. Sclera anicteric. Face is symmetric. No perioral cyanosis. Mucous membranes moist. Neck: Supple, JVD 1/2 to mandible sitting upright Pulmonary: Normal respiratory effort, clear to auscultation bilaterally Cardiac: Irregular rate and rhythm. Normal S1 and S2, no gallops, no rubs, +2 systolic murmur Extremities: 2+ radial pulses bilaterally. 2+ posterior tibialis pulses bilaterally. Trace pitting edema at the ankles. No cyanosis or clubbing. Abdomen: Normal bowel sounds, soft, non-tender, no abdominal mass palpated. Non-distended. Skin: Normal skin color, turgor, and pigmentation, no rash, no skin lesions Neurological: Patient is awake, alert, and oriented. Pleasant and cooperative. Answers questions appropriately. Speech is clear. Normal movement in all 4 extremities. Gait pattern was not assessed. Results & Data Vital Signs (Past 12 Hours) Vital Signs Temp Pulse Pulse Resp BP BP Pulse Ox 12/16/18 15:51 36.4 C L 50 L 20 107/63 96 12/16/18 12:58 62 110/68 12/16/18 12:57 62 124/80 95 12/16/18 12:55 37.1 C 72 18 123/79 95 12/16/18 10:33 36.6 C 60 18 94/59 L 94 12/16/18 07:15 36.6 C 57 L 18 123/80 98 (1) CHF (congestive heart failure) Heart failure chronicity: unspecified Heart failure type: unspecified Qualified Code(s): I50.9 - Heart failure, unspecified
--- NOTE | 2018-12-16 19:14 | Hospitalist Progress Note ---
Date of Service December 16, 2018 Assessment & Plan (1) Acute on chronic systolic (congestive) heart failure: Remains decompensated with ongoing O2 requirement but volume status does look much better. BUN and Cr remain stable. Cont bumex diuresis. Hold BB for now - HRs very slow at times and chronotropic response to activity is poor - could this be contributing to fall risk at home?? He clearly has memory issues - lives alone by report - is he compliant with meds and diet? Last echo was 2016 showing EF 25-30%. Repeat echo this admission with preserved EF ! appreciate CHF clinic consultation. will follow w/ [facility] after d/c. (2) Atrial fibrillation: rates slow, sometimes upper 30s. chronotropic response to activity is poor in face of low-dose BB. HRs only climb to upper 50s/low 60s at most. I think BB should be stopped at least for now. cont xarelto. (3) Hyperthyroidism: On methimazole. TSH this admission normal. (4) 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: Based on prior scans. Has been deemed not a surgical candidate. No abdominal symptoms. (5) HTN (hypertension): Controlled Cont current meds (6) CVA (cerebral vascular accident): history of cont asa and xarelto for secondary prevention along with statin agent (7) Chronic obstructive pulmonary disease: no symptoms or exacerbation at this time (8) Chronic kidney disease, stage 3a: creatinine stable today BMP am once again Baseline CrCl 40s to 50s (9) Hydrocele, bilateral: likely cause of chronic scrotal edema no Rx needed scrotal support (10) Fall: etiology?? slow HRs? due to OA of knees and/or hip issues? other? 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 even with activity his HRs only climb into the 50s/60s. at times his HRs dip into the upper 30s. he feels weak with ambulation. c/o multiple falls at home - he cannot give details about what precipitates them. he c/o right hip and right knee pain, stating "oh, I've had lots of x-rays of them" (but he has not had them here -- [place] [facility]??). he is agreeable to rehab stay at [facility] in [place]. overall his dyspnea is better but staff report that he gets out of breath w/ walking to bathroom still. Review of Systems Constitutional: no fever, no chills and no anorexia Respiratory: no cough Cardiovascular: no chest pain, no orthopnea, no paroxysmal nocturnal dyspnea and no edema Gastrointestinal: no abdominal pain Physical Exam 2 Constitutional: well developed and well nourished; no acute distress Neck: trachea midline, no thyromegaly Respiratory: Auscultation: + diminished lung sounds (bases); no rales and no wheezes Cardiovascular: Rate/Rhythm: regular rate; + abnormal rhythm Heart Sounds: normal S1, normal S2 and + murmur (2-3/6 LLSB) Vessels: + JVD (much improved today; mild at most), posterior tibial pulses present and dorsalis pedis pulses present Extremities: + edema (resolved) Gastrointestinal (Abdomen): normal bowel sounds, soft, nontender, no hepatosplenomegaly Musculoskeletal: right hip - passive ROM intact; tender over trochanteric bursal area to palpation; right knee - OA changes; no effusion; crepitus with passive ROM. Psychiatric: Orientation: alert, oriented to person, oriented to place and oriented to time Genitourinary: + scrotum abnormality and + testicular swelling Results & Data Vital Signs (Past 12 Hours) Vital Signs Temp Pulse Pulse Pulse Resp BP BP 12/16/18 16:00 59 L 12/16/18 15:51 36.4 C L 50 L 20 107/63 12/16/18 12:58 62 110/68 12/16/18 12:57 62 124/80 12/16/18 12:55 37.1 C 72 18 123/79 12/16/18 10:33 36.6 C 60 18 94/59 L 12/16/18 07:15 36.6 C 57 L 18 123/80 Pulse Ox 12/16/18 16:00 12/16/18 15:51 96 12/16/18 12:58 12/16/18 12:57 95 12/16/18 12:55 95 12/16/18 10:33 94 12/16/18 07:15 98 Laboratory Results Laboratory Results - last 24 hr 12/16/18 06:01 Sodium 143 Potassium 4.1 Chloride 106 Carbon Dioxide 32 Anion Gap 5.0 BUN 33 H Creatinine 1.50 H Est Cr Clr Drug Dosing 40.0 Est GFR ( Amer) 48.2 Est GFR (Non-Af Amer) 41.6 BUN/Creatinine Ratio 22.2 H Glucose 104 H Calcium 9.3 TSH 1.060 PG Care Time/CCT Total # of Minutes Spent Total Time Spent with Patient: Total time spent is greater than 50% in coordination of care (as documented) at patient's floor/unit and/or counseling patient: (1) Atrial fibrillation Atrial fibrillation type: chronic Qualified Code(s): I48.2 - Chronic atrial fibrillation (2) Chronic obstructive pulmonary disease COPD type: chronic bronchitis Chronic bronchitis type: simple Qualified Code(s): J41.0 - Simple chronic bronchitis (3) HTN (hypertension) Hypertension type: essential hypertension Qualified Code(s): I10 - Essential (primary) hypertension (4) CVA (cerebral vascular accident) CVA mechanism: unspecified Qualified Code(s): I63.9 - Cerebral infarction, unspecified (5) Fall Encounter type: sequela Qualified Code(s): W19.XXXS - Unspecified fall, sequela (6) Right knee pain Chronicity: chronic Qualified Code(s): M25.561 - Pain in right knee; G89.29 - Other chronic pain
[2018-12-16] MEDS: ATORVASTATIN 40 MG TAB PO SCH (21:24)
[2018-12-16] MEDS: QUETIAPINE FUMARATE 25 MG TABLET PO SCH (21:24)
[2018-12-16] MEDS: FERROUS SULFATE 325 MG TAB PO SCH (21:25)
[2018-12-17 07:04] LABS: BUN Creatinine Ratio 22.1 (10-20); Calcium 9.1 mg/dl (8.5-10.1); Est GFR (African American) 43.9; Est GFR (Non-African American) 37.9; Potassium 4.5 mmol/L (3.5-5.1)
[2018-12-17] MEDS: methIMAzole 5 MG TABLET PO SCH (07:26)
[2018-12-17] MEDS: ASPIRIN 81 MG ECTAB PO SCH (07:26)
[2018-12-17] MEDS: LISINOPRIL 5 MG TAB PO SCH (07:26)
[2018-12-17] MEDS: DOCUSATE SODIUM 100 MG CAP PO SCH ×2 (07:26→21:09)
[2018-12-17] MEDS: CALCIUM CITRATE 950 MG TAB PO SCH ×2 (07:26→21:09)
[2018-12-17] MEDS: POTASSIUM CHLORIDE 10 MEQ TABCR PO SCH ×3 (07:26→21:09)
[2018-12-17] MEDS: SERTRALINE HCL 50 MG TABLET PO SCH (07:27)
[2018-12-17] MEDS: DICLOFENAC SOD 1% GEL 100 GM TUBE EXT SCH ×4 (07:27→21:09)
[2018-12-17] MEDS: TRAMADOL HCL 50 MG TABLET PO PRN ×3 (09:26→23:54)
[2018-12-17] MEDS: BUMETANIDE 2 MG in SYRINGE 0 ML IV SCH ×2 (09:26→16:27)
--- NOTE | 2018-12-17 09:26 | CT Scan Report ---
CT OF THE CHEST WITHOUT IV CONTRAST CLINICAL HISTORY: h/o lymphoma, CHF COMPARISON STUDY: Chest CT June 24, 2018. Chest radiograph December 14, 2018. CT DOSE: 555.88 mGy.cm TECHNIQUE: Axial images of the chest were obtained without IV contrast. Images were reviewed in the axial, sagittal, and coronal planes. IV contrast was not administered for this examination. Automat ed exposure control was utilized for the study. A dose lowering technique was utilized adhering to t he principles of ALARA. FINDINGS: Thyroid enlargement is unchanged. The heart is moderately enlarged. There is extensive cor onary artery calcification. Central pulmonary arteries are moderately dilated. Mediastinal lymph node s are now normal in size. These have decreased in size since chest CT of June 24, 2018. A moderat e sized hiatal hernia is noted. There are trace bilateral pleural effusions with no pneumothorax. The re is no consolidation to suggest pneumonia. There is minimal interlobular septal thickening. Central airways are patent. Healing left rib fractures are noted. There are few old mild thoracic spine comp ression deformities. Visualized portions of the upper abdomen are unremarkable. IMPRESSION: 1. Trace bilateral pleural effusions. Mild interlobular septal thickening which may reflect mild pulm onary edema. 2. No consolidation to suggest pneumonia. 3. Moderate cardiomegaly. Extensive coronary artery calcification. Evidence for pulmonary arterial hy pertension. 4. No thoracic lymphadenopathy. Decrease in size of mediastinal lymph nodes since CT of June 24, 2018. Electronically signed by: Yuan Augustine M.D. 12/17/2018 9:23 AM
[2018-12-17] MEDS: CYANOCOBALAMIN 1000 MCG/ML VIAL IM SCH (09:27)
[2018-12-17] MEDS ORDERED: CARVEDILOL 3.125 MG TAB PO ONE ×2 (12:55→21:55)
[2018-12-17] MEDS ORDERED: BUPIVACAINE 0.25% 30 ML VIAL INFIL PRN (13:27)
[2018-12-17] MEDS ORDERED: BENZOCAINE/TETRACAIN/BUTAM CAN 200 APPLN/20 GM CAN EXT PRN (13:27)
[2018-12-17] MEDS ORDERED: LIDOCAINE HCL 1% 20 ML VIAL INJ PRN (13:27)
[2018-12-17] MEDS: RIVAROXABAN 15 MG TAB PO SCH (16:29)
[2018-12-17] MEDS: TRIAMCINOLONE ACET 40 MG/ML VIAL IM SCH (17:50)
--- NOTE | 2018-12-17 17:51 | Procedure Note ---
Procedure Note Date of Service December 17, 2018 Note Procedure: right trochanteric bursal injection Reason: pain 2nd to trochanteric bursitis Consent: signed, in chart Description: After time out was called at 1715, the patient's right hip landmarks were identified & palpated. Bryon placed over right greater trochanteric region. Betadine prep performed. Cetacaine spray used for topical analgesia. Then, using sterile technique, a 5cc mixture of 40mg of kenalog, 2cc of 0.25% marcaine, and 2cc of 1% lidocaine was injected into the right trochanteric bursa. No blood loss. Patient experienced immediate pain relief. No complications. Right lateral hip region cleaned with saline and band-aid applied. Procedure performed by TOM Bceker and assisted by Tex Knapp MD. I was present for the entire procedure and assisted in all tobias components/steps of the procedure. Tex Knapp MD Coding
[2018-12-17] MEDS: ATORVASTATIN 40 MG TAB PO SCH (21:09)
[2018-12-17] MEDS: FERROUS SULFATE 325 MG TAB PO SCH (21:09)
[2018-12-17] MEDS: QUETIAPINE FUMARATE 25 MG TABLET PO SCH (21:09)
--- NOTE | 2018-12-17 21:48 | Hospitalist Progress Note ---
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 BUN and Cr remain stable although both elgin modestly overnight. Still requiring O2. CT chest obtained - no evidence of lymphoma, but still showing pulmonary edema. Cont bumex diuresis. May need to stop IV diuresis soon. HRs improved with holding metoprolol. Try coreg in nayeli of metoprolol as coreg tends to not have as much effect on HR. Hold BB for now - HRs very slow at times and chronotropic response to activity is poor - could this be contributing to fall risk at home?? Last echo in 2016 showed EF 25-30%; EF now 60-65%. appreciate CHF clinic consultation. will follow w/ [facility] and Dr Rowland after d/c. (2) Atrial fibrillation: rates were slow, sometimes upper 30s, with metoprolol 12.5mg BID. metoprolol held/stopped and HRs were much better. tried coreg 3.125mg today and HRs were stable on this. will proceed forward with coreg 3.125mg BID. cont telemetry; watch HRs on the coreg. cont xarelto. (3) Hyperthyroidism: On methimazole. TSH this admission normal. (4) 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: Based on prior scans. Has been deemed not a surgical candidate in the past. No abdominal symptoms. (5) HTN (hypertension): Controlled Cont current meds (6) CVA (cerebral vascular accident): history of cont asa and xarelto for secondary prevention along with statin agent (7) Chronic obstructive pulmonary disease: no symptoms or exacerbation at this time (8) Chronic kidney disease, stage 3a: creatinine stable today although continues to creep up slowly BMP am once again Baseline CrCl 40s to 50s may need to stop IV diuretic soon (9) Hydrocele, bilateral: likely cause of chronic scrotal edema no Rx needed scrotal support testicular u/s confirmed earlier this year (10) Fall: etiology?? slow HRs? due to OA of knees and/or hip issues? b12 deficiency? other? he cannot recall mechanism, how often it happened at home, etc (11) Trochanteric bursitis, right hip: likely due to trauma. 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 if O2 requirement remains even after achieving euvolemia he could have pulmonary HTN contributing to O2 dependency. wean O2 as tolerated. (16) DVT prophylaxis: xarelto PT/OT dispo - SNF ([facility]) extensively updated daughter by phone today all questions answered Subjective tele - a.fib, but bradycardia resolved. patient again c/o right hip pain and right knee pain. dyspnea improved orthopnea improved still desatting if he takes off his NC O2 eating well no new complaints Review of Systems Constitutional: no fever and no chills Respiratory: + dyspnea on exertion; no cough Cardiovascular: + orthopnea; no chest pain, no paroxysmal nocturnal dyspnea and no edema Gastrointestinal: + abdominal pain; no nausea and no vomiting Musculoskeletal: as per Subjective / HPI and + joint pain Physical Exam Constitutional: well developed and well nourished; no acute distress ENMT: external ear and nose normal, oropharynx normal Respiratory: Auscultation: + diminished lung sounds (bases); no rales and no wheezes Cardiovascular: Rate/Rhythm: regular rate; + abnormal rhythm Heart Sounds: normal S1, normal S2 and + murmur (2-3/6 LLSB) Vessels: posterior tibial pulses present and dorsalis pedis pulses present; no JVD Extremities: no edema Gastrointestinal (Abdomen): normal bowel sounds, soft, nontender, no hepatosplenomegaly Musculoskeletal: right hip - exquisite tenderness over greater trochanter with palpation; pain worsened by forced adduction. right knee - OA changes, no effusion. Psychiatric: Orientation: alert, oriented to person, oriented to place and oriented to time Genitourinary: + scrotum abnormality and + testicular swelling Results & Data Vital Signs (Past 12 Hours) Vital Signs Temp Pulse Resp BP Pulse Ox 12/17/18 19:12 36.8 C 73 18 100/68 96 12/17/18 15:56 36.3 C L 74 18 110/75 91 12/17/18 11:48 36.6 C 74 22 116/78 97 Laboratory Results Laboratory Results - last 24 hr 12/17/18 12/17/18 05:51 05:51 Sodium 143 Potassium 4.5 Chloride 105 Carbon Dioxide 34 H Anion Gap 5.0 BUN 36 H Creatinine 1.62 H Est Cr Clr Drug Dosing 37.0 Est GFR ( Amer) 43.9 Est GFR (Non-Af Amer) 37.9 BUN/Creatinine Ratio 22.1 H Glucose 104 H Calcium 9.1 Vitamin B12 253 Specimen Hemolysis PG Care Time/CCT Total # of Minutes Spent Total Time Spent with Patient: Total time spent is greater than 50% in coordination of care (as documented) at patient's floor/unit and/or counseling patient: (1) Atrial fibrillation Atrial fibrillation type: chronic Qualified Code(s): I48.2 - Chronic atrial fibrillation (2) Right knee pain Chronicity: chronic Qualified Code(s): M25.561 - Pain in right knee; G89.29 - Other chronic pain (3) Chronic obstructive pulmonary disease COPD type: chronic bronchitis Chronic bronchitis type: simple Qualified Code(s): J41.0 - Simple chronic bronchitis (4) HTN (hypertension) Hypertension type: essential hypertension Qualified Code(s): I10 - Essential (primary) hypertension (5) Fall Encounter type: sequela Qualified Code(s): W19.XXXS - Unspecified fall, sequela (6) CVA (cerebral vascular accident) CVA mechanism: unspecified Qualified Code(s): I63.9 - Cerebral infarction, unspecified
[2018-12-18 06:29] LABS: Hematocrit (blood only) 40.4 % (42-52); Hemoglobin 13.1 g/dL (14.0-18.0); Mean Corpuscular Hgb Conc 32.4 g/dL (32-36); Mean Corpuscular Volume 89.6 fL (80-100); Mean Platelet Volume 10.5 fL (7.4-10.4); Platelet Count 179 K/uL (130-400); RDW Coefficient of Variation 16.3 % (11.5-14.5); RDW Standard Deviation 52.6 fL (36.4-46.3); Red Blood Count 4.51 M/uL (4.7-6.1); White Blood Count 6.03 K/uL (4.8-10.8)
[2018-12-18 07:03] LABS: BUN Creatinine Ratio 26.6 (10-20); Calcium 8.6 mg/dl (8.5-10.1); Creatinine Clr Calc Pharmacy 41.6 ml/min; Est GFR (African American) 50.6; Est GFR (Non-African American) 43.7; Potassium 4.7 mmol/L (3.5-5.1)
[2018-12-18] MEDS: LISINOPRIL 5 MG TAB PO SCH (08:28)
[2018-12-18] MEDS: POTASSIUM CHLORIDE 10 MEQ TABCR PO SCH ×3 (08:28→21:14)
[2018-12-18] MEDS: ASPIRIN 81 MG ECTAB PO SCH (08:28)
[2018-12-18] MEDS: DOCUSATE SODIUM 100 MG CAP PO SCH ×2 (08:28→21:13)
[2018-12-18] MEDS: methIMAzole 5 MG TABLET PO SCH (08:28)
[2018-12-18] MEDS: CALCIUM CITRATE 950 MG TAB PO SCH ×2 (08:28→21:12)
[2018-12-18] MEDS: SERTRALINE HCL 50 MG TABLET PO SCH (08:29)
[2018-12-18] MEDS: DICLOFENAC SOD 1% GEL 100 GM TUBE EXT SCH ×4 (08:29→21:14)
[2018-12-18] MEDS: BUMETANIDE 2 MG in SYRINGE 0 ML IV SCH (08:29)
[2018-12-18] MEDS: CARVEDILOL 3.125 MG TAB PO SCH ×2 (08:29→21:14)
[2018-12-18] MEDS: CYANOCOBALAMIN 1000 MCG/ML VIAL IM SCH (08:29)
--- NOTE | 2018-12-18 10:07 | Hospitalist Progress Note ---
Date of Service December 18, 2018 Assessment & Plan (1) Acute on chronic systolic (congestive) heart failure: Volume status much improved, no rales, no edema in legs BUN and Cr remain stable, Cr is 1.44 Still requiring O2, try to wean off CT chest obtained on 12/17, just showed some edema change Bumex from IV to PO this afternoon, appears euvolemic HRs improved with holding metoprolol. Try coreg in nayeli of metoprolol as coreg tends to not have as much effect on HR. HR in the 60's Last echo in 2016 showed EF 25-30%; EF now 60-65%. appreciate CHF clinic consultation. will follow w/ [facility] and Dr Rowland after d/c. (2) Atrial fibrillation: rates were slow, sometimes upper 30s, with metoprolol 12.5mg BID. metoprolol held/stopped and HRs were much better. started on coreg 3.125mg BID and HR in the 60-70 range will proceed forward with coreg 3.125mg BID. cont telemetry; watch HRs on the coreg. cont xarelto. (3) Hyperthyroidism: On methimazole. TSH this admission normal. (4) 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: Based on prior scans. Has been deemed not a surgical candidate in the past. No abdominal symptoms. (5) HTN (hypertension): Controlled Cont current meds (6) CVA (cerebral vascular accident): history of cont asa and xarelto for secondary prevention along with statin agent (7) Chronic obstructive pulmonary disease: no symptoms or exacerbation at this time (8) Chronic kidney disease, stage 3a: creatinine stable at 1.44 BMP am Baseline CrCl 40s to 50s change Bumex from IV to PO (9) Hydrocele, bilateral: likely cause of chronic scrotal edema no Rx needed scrotal support testicular u/s confirmed earlier this year (10) Fall: etiology?? slow HRs? due to OA of knees and/or hip issues? b12 deficiency? other? he cannot recall mechanism, how often it happened at home, etc says he does not feel safe PT/OT (11) Trochanteric bursitis, right hip: likely due to trauma. due to persistence of pain elected to give steroid injection on 12/17, Dr. 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 if O2 requirement remains even after achieving euvolemia he could have pulmonary HTN contributing to O2 dependency. wean O2 as tolerated. (16) Constipated: will make Miralax scheduled daily until he has BM (17) DVT prophylaxis: xarelto PT/OT dispo - SNF ([facility]) look to discharge in 2-3 days wean off oxygen Subjective reports right hip pain much better after bursa injection yesterday asked me if I could inject his knee, discussed that I don't perform knee injections he says is breathing is much improved, no edema in legs he still does not feel safe walking, his strength and balance are poor reviewed labs, Cr down a little to 1.44, K is 4.7, CBC is stable no BM for two days, will try Miralax continue with therapy Review of Systems Review of Systems: All systems reviewed & are unremarkable except as noted in HPI & below Constitutional: no fever and no sweats Respiratory: no cough and no dyspnea Cardiovascular: no chest pain and no edema Gastrointestinal: + constipation; no abdominal pain, no nausea, no vomiting and no diarrhea/loose stools Physical Exam Constitutional: WD/WN, vitals as above Eyes: PERRL, conjunctivae normal, anicteric sclerae ENMT: external ear and nose normal, oropharynx normal Neck: trachea midline, no thyromegaly Respiratory: normal respiratory effort, lungs clear to auscultation Cardiovascular: RRR, no murmur, no edema Gastrointestinal (Abdomen): normal bowel sounds, soft, nontender, no hepatosplenomegaly Musculoskeletal: no cyanosis or clubbing, extremities motor strength 5/5 Hip: hip normal to inspection, no effusion and no skin erythema Knee: knee normal to inspection, no effusion and no skin erythema Skin: no rashes, warm and dry Neurologic: patellar DTR's 2+ bilat, sensation intact and PERRL, EOMI, accommodation nl, no face palsy, no dysarthria Psychiatric: A+Ox3, euthymic affect Lymphatic: no cervical or axillary lymphadenopathy Results & Data Vital Signs (Past 12 Hours) Vital Signs Temp Pulse Resp BP Pulse Ox 12/18/18 07:56 36.8 C 76 24 144/84 H 91 12/18/18 03:16 36.7 C 70 19 90/62 L 92 12/18/18 00:00 36.5 C 75 19 93/60 L 95 Laboratory Results Laboratory Results - last 24 hr 12/18/18 12/18/18 06:12 06:12 WBC 6.03 RBC 4.51 L Hgb 13.1 L Hct 40.4 L MCV 89.6 MCH 29.0 MCHC 32.4 RDW Std Deviation 52.6 H RDW Coeff of Jennifer 16.3 H Plt Count 179 MPV 10.5 H Sodium 139 Potassium 4.7 Chloride 105 Carbon Dioxide 33 H Anion Gap 1.0 L BUN 38 H Creatinine 1.44 H Est Cr Clr Drug Dosing 41.6 Est GFR ( Amer) 50.6 Est GFR (Non-Af Amer) 43.7 BUN/Creatinine Ratio 26.6 H Glucose 124 H Calcium 8.6 Medications Administered Current Inpatient Medications Acetaminophen (Tylenol) 650 mg PO Q4H PRN PRN Reason: Pain or Fever Stop: 01/13/19 21:03 Last Admin: 12/16/18 11:20 Dose: 650 mg Documented by: Al Hydrox/Mg Hydrox/Simethicone (Maalox) 15 ml PO Q4H PRN PRN Reason: Dyspepsia Stop: 01/13/19 21:03 Aspirin (Ecotrin Ectab) 81 mg PO QAM [facility] Stop: 01/14/19 08:59 Last Admin: 12/18/18 08:28 Dose: 81 mg Documented by: Atorvastatin Calcium (Lipitor) 40 mg PO HS [facility] Stop: 01/13/19 21:03 Last Admin: 12/17/18 21:09 Dose: 40 mg Documented by: Benzocaine/Butamben/Tetracaine HCl (Cetacaine) 1 appln EXT ONE PRN PRN Reason: Anesthesia Stop: 01/16/19 13:26 Bumetanide (Bumex) 1 mg PO BID17 [facility] Stop: 01/17/19 16:59 Bupivacaine HCl (Sensorcaine 0.25% Inj) 2 ml INFIL ONE PRN PRN Reason: Anesthesia Stop: 01/16/19 13:26 Calcium Citrate (Citracal) 950 mg PO BID [facility] Stop: 01/13/19 21:03 Last Admin: 12/18/18 08:28 Dose: 950 mg Documented by: Carvedilol (Coreg) 3.125 mg PO BID [facility] Stop: 01/17/19 08:59 Last Admin: 12/18/18 08:29 Dose: 3.125 mg Documented by: Cyanocobalamin (Vitamin B-12) 1,000 mcg IM DAILY [facility] Stop: 01/16/19 08:59 Last Admin: 12/18/18 08:29 Dose: 1,000 mcg Documented by: Diclofenac Sodium (Voltaren 1% Top) 1 appln EXT QID [facility] Stop: 01/15/19 12:59 Last Admin: 12/18/18 08:29 Dose: 1 appln Documented by: Docusate Sodium (Colace) 100 mg PO BID [facility] Stop: 01/13/19 21:03 Last Admin: 12/18/18 08:28 Dose: 100 mg Documented by: Ferrous Sulfate (Feosol) 650 mg PO HS [facility] Stop: 01/13/19 21:03 Last Admin: 12/17/18 21:09 Dose: 650 mg Documented by: Lidocaine HCl (Xylocaine 1% (Local)) 2 ml INJ ONE PRN PRN Reason: Anesthesia Stop: 01/16/19 13:26 Lisinopril (Zestril) 5 mg PO DAILY [facility] Stop: 01/14/19 08:59 Last Admin: 12/18/18 08:28 Dose: 5 mg Documented by: Magnesium Hydroxide (Milk Of Magnesia) 30 ml PO Q12H PRN PRN Reason: Constipation Stop: 01/13/19 21:03 Methimazole (Tapazole) 5 mg PO DAILY [facility] Stop: 01/14/19 08:59 Last Admin: 12/18/18 08:28 Dose: 5 mg Documented by: Metoprolol Tartrate (Lopressor) 12.5 mg PO BID [facility] Stop: 01/13/19 21:03 Last Admin: 12/16/18 08:23 Dose: 12.5 mg Documented by: Ondansetron HCl (Zofran) 4 mg IV Q6H PRN PRN Reason: Nausea Stop: 01/13/19 21:03 Pantoprazole Sodium (Protonix) 40 mg PO MoWeFr@0900 [facility] Stop: 01/15/19 08:59 Last Admin: 12/16/18 08:24 Dose: 40 mg Documented by: Polyethylene Glycol (Miralax Powder Packet) 17 gm PO DAILY [facility] Stop: 01/17/19 10:59 Potassium Chloride (Klor-Con M10) 10 meq PO TID [facility] Stop: 01/13/19 21:03 Last Admin: 12/18/18 08:28 Dose: 10 meq Documented by: Quetiapine Fumarate (Seroquel) 50 mg PO HS [facility] Stop: 01/13/19 21:03 Last Admin: 12/17/18 21:09 Dose: 50 mg Documented by: Rivaroxaban (Xarelto) 15 mg PO QDD [facility] Stop: 01/14/19 16:29 Last Admin: 12/17/18 16:29 Dose: 15 mg Documented by: Sertraline HCl (Zoloft) 50 mg PO QAM [facility] Stop: 01/14/19 08:59 Last Admin: 12/18/18 08:29 Dose: 50 mg Documented by: Tramadol HCl (Ultram) 50 mg PO Q6H PRN PRN Reason: Pain Stop: 01/14/19 07:34 Last Admin: 12/17/18 23:54 Dose: 50 mg Documented by: Triamcinolone Acetonide (Kenalog-40) 40 mg IM [facility] Stop: 01/16/19 15:29 Last Admin: 12/17/18 17:50 Dose: 40 mg Documented by: PG Care Time/CCT Total # of Minutes Spent Total Time Spent with Patient: Total time spent is greater than 50% in coordination of care (as documented) at patient's floor/unit and/or counseling patient: (1) Atrial fibrillation Atrial fibrillation type: chronic Qualified Code(s): I48.2 - Chronic atrial fibrillation (2) HTN (hypertension) Hypertension type: essential hypertension Qualified Code(s): I10 - Essential (primary) hypertension (3) CVA (cerebral vascular accident) CVA mechanism: unspecified Qualified Code(s): I63.9 - Cerebral infarction, unspecified (4) Chronic obstructive pulmonary disease COPD type: chronic bronchitis Chronic bronchitis type: simple Qualified Code(s): J41.0 - Simple chronic bronchitis (5) Fall Encounter type: sequela Qualified Code(s): W19.XXXS - Unspecified fall, sequela (6) Right knee pain Chronicity: chronic Qualified Code(s): M25.561 - Pain in right knee; G89.29 - Other chronic pain
[2018-12-18] MEDS: POLYETHYLENE (MIRALAX) 17 GM PACK PO SCH (10:30)
[2018-12-18] MEDS: TRIAMCINOLONE ACET 40 MG/ML VIAL IM SCH (16:17)
[2018-12-18] MEDS: BUMETANIDE 1 MG TAB PO SCH (16:49)
[2018-12-18] MEDS: RIVAROXABAN 15 MG TAB PO SCH (16:49)
[2018-12-18] MEDS: FERROUS SULFATE 325 MG TAB PO SCH (21:12)
[2018-12-18] MEDS: QUETIAPINE FUMARATE 25 MG TABLET PO SCH (21:13)
[2018-12-18] MEDS: ATORVASTATIN 40 MG TAB PO SCH (21:13)
[2018-12-19] MEDS: POLYETHYLENE (MIRALAX) 17 GM PACK PO SCH (08:04)
[2018-12-19] MEDS: PANTOprazole 40 MG TAB PO SCH (08:07)
[2018-12-19] MEDS: CALCIUM CITRATE 950 MG TAB PO SCH ×2 (08:07→20:40)
[2018-12-19] MEDS: DICLOFENAC SOD 1% GEL 100 GM TUBE EXT SCH ×4 (08:07→20:42)
[2018-12-19] MEDS: SERTRALINE HCL 50 MG TABLET PO SCH (08:07)
[2018-12-19] MEDS: DOCUSATE SODIUM 100 MG CAP PO SCH ×2 (08:07→20:47)
[2018-12-19] MEDS: LISINOPRIL 5 MG TAB PO SCH (08:08)
[2018-12-19] MEDS: POTASSIUM CHLORIDE 10 MEQ TABCR PO SCH ×3 (08:08→20:41)
[2018-12-19] MEDS: ASPIRIN 81 MG ECTAB PO SCH (08:08)
[2018-12-19] MEDS: CARVEDILOL 3.125 MG TAB PO SCH ×2 (08:09→20:39)
[2018-12-19] MEDS: BUMETANIDE 1 MG TAB PO SCH ×2 (08:09→16:49)
[2018-12-19] MEDS: methIMAzole 5 MG TABLET PO SCH (08:09)
[2018-12-19] MEDS: CYANOCOBALAMIN 1000 MCG/ML VIAL IM SCH (08:14)
[2018-12-19 09:10] LABS: BUN Creatinine Ratio 29.3 (10-20); Calcium 9.1 mg/dl (8.5-10.1); Creatinine Clr Calc Pharmacy 42.2 ml/min; Est GFR (African American) 51.5; Est GFR (Non-African American) 44.4; Potassium 4.4 mmol/L (3.5-5.1)
[2018-12-19] MEDS: TRAMADOL HCL 50 MG TABLET PO PRN ×2 (12:19→22:31)
[2018-12-19] MEDS: RIVAROXABAN 15 MG TAB PO SCH (15:42)
--- NOTE | 2018-12-19 15:46 | Hospitalist Progress Note ---
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 Tried Coreg in nayeli of metoprolol as Coreg tends to not have as much effect on HR. HR in the 60's-70's Last echo in 2016 showed EF 25-30%; EF now 60-65%. appreciate CHF clinic consultation. will follow w/ [facility] and Dr Rowland after d/c. discussed with Charlene SANTOS today, she has him scheduled for follow up this week (2) Atrial fibrillation: rates were slow, sometimes upper 30s, with metoprolol 12.5mg BID. metoprolol held/stopped and HRs were much better. started on coreg 3.125mg BID and HR in the 60-70 range will proceed forward with coreg 3.125mg BID. transfer to medical floor today as HR is stable cont xarelto. (3) Hyperthyroidism: On methimazole. TSH this admission normal. (4) 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: Based on prior scans. Has been deemed not a surgical candidate in the past. No abdominal symptoms. (5) HTN (hypertension): Controlled Cont current meds (6) CVA (cerebral vascular accident): history of cont asa and xarelto for secondary prevention along with statin agent (7) Chronic obstructive pulmonary disease: no symptoms or exacerbation at this time (8) Chronic kidney disease, stage 3a: creatinine stable at 1.42 BMP am Baseline CrCl 40s to 50s continue Bumex PO (9) Hydrocele, bilateral: likely cause of chronic scrotal edema no Rx needed scrotal support testicular u/s confirmed earlier this year (10) Fall: etiology?? slow HRs? due to OA of knees and/or hip issues? b12 deficiency? other? he cannot recall mechanism, how often it happened at home, etc says he does not feel safe PT/OT, recommend SNF rehab plan to d/c tomorrow (11) Trochanteric bursitis, right hip: likely due to trauma. due to persistence of pain elected to give steroid injection on 12/17, Dr. 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 if O2 requirement remains even after achieving euvolemia he could have pulmonary HTN contributing to O2 dependency. wean O2 as tolerated. (16) Constipated: will make Miralax scheduled daily until he has BM (17) DVT prophylaxis: xarelto PT/OT dispo - SNF, looking into [facility] hopeful for d/c tomorrow Subjective patient feels good, ambulated in the hallway with therapy he spent majority of the day upright in chair with feet propped up asked if he could go today, discussed that we were awaiting acceptance to [facility] he is eating well breathing is stable, no chest pain, no edema in legs reviewed labs, Cr stable at 1.4 reviewed tele, HR stable in the 70's on the Coreg, no further bradycardia discussed with case loader operator today, aware of plans for [facility] Review of Systems Review of Systems: All systems reviewed & are unremarkable except as noted in HPI & below Constitutional: no fever, no fatigue and no weakness Respiratory: no cough, no dyspnea and no dyspnea on exertion Cardiovascular: no chest pain and no edema Gastrointestinal: no abdominal pain, no nausea, no vomiting, no constipation and no diarrhea/loose stools Physical Exam Constitutional: WD/WN, vitals as above Eyes: PERRL, conjunctivae normal, anicteric sclerae ENMT: external ear and nose normal, oropharynx normal Neck: trachea midline, no thyromegaly Respiratory: normal respiratory effort, lungs clear to auscultation Cardiovascular: RRR, no murmur, no edema Gastrointestinal (Abdomen): normal bowel sounds, soft, nontender, no hepatos plenomegaly Musculoskeletal: no cyanosis or clubbing, extremities motor strength 5/5 Hip: hip normal to inspection, no effusion and no skin erythema Knee: knee normal to inspection, no effusion and no skin erythema Skin: no rashes, warm and dry Neurologic: patellar DTR's 2+ bilat, sensation intact and PERRL, EOMI, accommodation nl, no face palsy, no dysarthria Psychiatric: A+Ox3, euthymic affect Lymphatic: no cervical or axillary lymphadenopathy Results & Data Vital Signs (Past 12 Hours) Vital Signs Temp Pulse Resp BP Pulse Ox 12/19/18 15:01 36.6 C 77 18 125/81 95 12/19/18 10:36 36.5 C 60 19 150/75 H 92 12/19/18 10:29 93 12/19/18 08:02 76 145/86 H 12/19/18 07:14 36.3 C L 74 19 161/89 H 95 12/19/18 04:00 36.9 C 75 16 114/69 94 Laboratory Results Laboratory Results - last 24 hr 12/19/18 08:22 Sodium 141 Potassium 4.4 Chloride 105 Carbon Dioxide 33 H Anion Gap 4.0 BUN 42 H Creatinine 1.42 H Est Cr Clr Drug Dosing 42.2 Est GFR ( Amer) 51.5 Est GFR (Non-Af Amer) 44.4 BUN/Creatinine Ratio 29.3 H Glucose 168 H Calcium 9.1 Medications Administered Current Inpatient Medications Acetaminophen (Tylenol) 650 mg PO Q4H PRN PRN Reason: Pain or Fever Stop: 01/13/19 21:03 Last Admin: 12/16/18 11:20 Dose: 650 mg Documented by: Al Hydrox/Mg Hydrox/Simethicone (Maalox) 15 ml PO Q4H PRN PRN Reason: Dyspepsia Stop: 01/13/19 21:03 Aspirin (Ecotrin Ectab) 81 mg PO [facility] Stop: 01/14/19 08:59 Last Admin: 12/19/18 08:08 Dose: 81 mg Documented by: Atorvastatin Calcium (Lipitor) 40 mg PO [facility] Stop: 01/13/19 21:03 Last Admin: 12/18/18 21:13 Dose: 40 mg Documented by: Benzocaine/Butamben/Tetracaine HCl (Cetacaine) 1 appln EXT ONE PRN PRN Reason: Anesthesia Stop: 01/16/19 13:26 Bumetanide (Bumex) 1 mg PO BID17 [facility] Stop: 01/17/19 16:59 Last Admin: 12/19/18 08:09 Dose: 1 mg Documented by: Bupivacaine HCl (Sensorcaine 0.25% Inj) 2 ml INFIL ONE PRN PRN Reason: Anesthesia Stop: 01/16/19 13:26 Calcium Citrate (Citracal) 950 mg PO BID [facility] Stop: 01/13/19 21:03 Last Admin: 12/19/18 08:07 Dose: 950 mg Documented by: Carvedilol (Coreg) 3.125 mg PO BID [facility] Stop: 01/17/19 08:59 Last Admin: 12/19/18 08:09 Dose: 3.125 mg Documented by: Cyanocobalamin (Vitamin B-12) 1,000 mcg IM DAILY [facility] Stop: 01/16/19 08:59 Last Admin: 12/19/18 08:14 Dose: 1,000 mcg Documented by: Diclofenac Sodium (Voltaren 1% Top) 1 appln EXT QID [facility] Stop: 01/15/19 12:59 Last Admin: 12/19/18 14:04 Dose: 1 appln Documented by: Docusate Sodium (Colace) 100 mg PO BID [facility] Stop: 01/13/19 21:03 Last Admin: 12/19/18 08:07 Dose: 100 mg Documented by: Ferrous Sulfate (Feosol) 650 mg PO HS [facility] Stop: 01/13/19 21:03 Last Admin: 12/18/18 21:12 Dose: 650 mg Documented by: Lidocaine HCl (Xylocaine 1% (Local)) 2 ml INJ ONE PRN PRN Reason: Anesthesia Stop: 01/16/19 13:26 Lisinopril (Zestril) 5 mg PO DAILY [facility] Stop: 01/14/19 08:59 Last Admin: 12/19/18 08:08 Dose: 5 mg Documented by: Magnesium Hydroxide (Milk Of Magnesia) 30 ml PO Q12H PRN PRN Reason: Constipation Stop: 01/13/19 21:03 Methimazole (Tapazole) 5 mg PO DAILY [facility] Stop: 01/14/19 08:59 Last Admin: 12/19/18 08:09 Dose: 5 mg Documented by: Metoprolol Tartrate (Lopressor) 12.5 mg PO BID [facility] Stop: 01/13/19 21:03 Last Admin: 12/16/18 08:23 Dose: 12.5 mg Documented by: Ondansetron HCl (Zofran) 4 mg IV Q6H PRN PRN Reason: Nausea Stop: 01/13/19 21:03 Pantoprazole Sodium (Protonix) 40 mg PO MoWeFr@0900 [facility] Stop: 01/15/19 08:59 Last Admin: 12/19/18 08:07 Dose: 40 mg Documented by: Polyethylene Glycol (Miralax Powder Packet) 17 gm PO DAILY [facility] Stop: 01/17/19 10:59 Last Admin: 12/19/18 08:04 Dose: Not Given Documented by: Potassium Chloride (Klor-Con M10) 10 meq PO TID [facility] Stop: 01/13/19 21:03 Last Admin: 12/19/18 14:04 Dose: 10 meq Documented by: Quetiapine Fumarate (Seroquel) 50 mg PO HS [facility] Stop: 01/13/19 21:03 Last Admin: 12/18/18 21:13 Dose: 50 mg Documented by: Rivaroxaban (Xarelto) 15 mg PO QDD [facility] Stop: 01/14/19 16:29 Last Admin: 12/19/18 15:42 Dose: 15 mg Documented by: Sertraline HCl (Zoloft) 50 mg PO QAM [facility] Stop: 01/14/19 08:59 Last Admin: 12/19/18 08:07 Dose: 50 mg Documented by: Tramadol HCl (Ultram) 50 mg PO Q6H PRN PRN Reason: Pain Stop: 01/14/19 07:34 Last Admin: 12/19/18 12:19 Dose: 50 mg Documented by: PG Care Time/CCT Total # of Minutes Spent Total Time Spent with Patient: Total time spent is greater than 50% in coordination of care (as documented) at patient's floor/unit and/or counseling patient: (1) Atrial fibrillation Atrial fibrillation type: chronic Qualified Code(s): I48.2 - Chronic atrial fibrillation (2) Right knee pain Chronicity: chronic Qualified Code(s): M25.561 - Pain in right knee; G89.29 - Other chronic pain (3) Chronic obstructive pulmonary disease COPD type: chronic bronchitis Chronic bronchitis type: simple Qualified Code(s): J41.0 - Simple chronic bronchitis (4) HTN (hypertension) Hypertension type: essential hypertension Qualified Code(s): I10 - Essential (primary) hypertension (5) Fall Encounter type: sequela Qualified Code(s): W19.XXXS - Unspecified fall, sequela (6) CVA (cerebral vascular accident) CVA mechanism: unspecified Qualified Code(s): I63.9 - Cerebral infarction, unspecified
[2018-12-19] MEDS: QUETIAPINE FUMARATE 25 MG TABLET PO SCH (20:39)
[2018-12-19] MEDS: FERROUS SULFATE 325 MG TAB PO SCH (20:39)
[2018-12-19] MEDS: ATORVASTATIN 40 MG TAB PO SCH (20:39)
[2018-12-20 07:06] LABS: Creatinine Clr Calc Pharmacy 42.5 ml/min; Est GFR (African American) 51.9; Est GFR (Non-African American) 44.8
[2018-12-20] MEDS: CALCIUM CITRATE 950 MG TAB PO SCH ×2 (08:04→20:34)
[2018-12-20] MEDS: BUMETANIDE 1 MG TAB PO SCH ×2 (08:04→16:14)
[2018-12-20] MEDS: methIMAzole 5 MG TABLET PO SCH (08:04)
[2018-12-20] MEDS: SERTRALINE HCL 50 MG TABLET PO SCH (08:04)
[2018-12-20] MEDS: ASPIRIN 81 MG ECTAB PO SCH (08:04)
[2018-12-20] MEDS: POTASSIUM CHLORIDE 10 MEQ TABCR PO SCH ×3 (08:04→20:34)
[2018-12-20] MEDS: LISINOPRIL 5 MG TAB PO SCH (08:04)
[2018-12-20] MEDS: CARVEDILOL 3.125 MG TAB PO SCH ×2 (08:04→20:34)
[2018-12-20] MEDS: POLYETHYLENE (MIRALAX) 17 GM PACK PO SCH (08:06)
[2018-12-20] MEDS: DOCUSATE SODIUM 100 MG CAP PO SCH ×2 (08:06→20:37)
[2018-12-20] MEDS: DICLOFENAC SOD 1% GEL 100 GM TUBE EXT SCH ×4 (08:07→20:33)
[2018-12-20] MEDS: CYANOCOBALAMIN 1000 MCG/ML VIAL IM SCH (09:25)
--- NOTE | 2018-12-20 14:49 | Hospitalist Progress Note ---
Date of Service December 20, 2018 Assessment & Plan (1) Acute on chronic systolic (congestive) heart failure: Volume status much improved, no rales, no edema in legs BUN and Cr remain stable, Cr is 1.41 titrated to room air today CT chest obtained on 12/17, just showed some edema changed Bumex from IV to PO on 12/18, continues to examine euvolemic HRs improved with holding metoprolol. Tried Coreg in anyeli of metoprolol as Coreg tends to not have as much effect on HR. HR in the 60's-70's Last echo in 2016 showed EF 25-30%; EF now 60-65%. appreciate CHF clinic consultation. will follow w/ [facility] and Dr Rowland after d/c. discussed with Charlene SANTOS yesterday, she has him scheduled for follow up this week (2) Atrial fibrillation: rates were slow, sometimes upper 30s, with metoprolol 12.5mg BID. metoprolol held/stopped and HRs were much better. started on coreg 3.125mg BID and HR in the 60-70 range will proceed forward with coreg 3.125mg BID. cont xarelto for anticoagulation (3) Hyperthyroidism: On methimazole. TSH this admission normal. (4) 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: Based on prior scans. Has been deemed not a surgical candidate in the past. No abdominal symptoms. (5) HTN (hypertension): Controlled Cont current meds (6) CVA (cerebral vascular accident): history of cont asa and xarelto for secondary prevention along with statin agent (7) Chronic obstructive pulmonary disease: no symptoms or exacerbation at this time (8) Chronic kidney disease, stage 3a: creatinine stable at 1.42 BMP am Baseline CrCl 40s to 50s continue Bumex PO (9) Hydrocele, bilateral: likely cause of chronic scrotal edema no Rx needed scrotal support testicular u/s confirmed earlier this year (10) Fall: etiology?? slow HRs? due to OA of knees and/or hip issues? b12 deficiency? other? he cannot recall mechanism, how often it happened at home, etc says he does not feel safe PT/OT, recommend SNF rehab plan to d/c tomorrow (11) Trochanteric bursitis, right hip: likely due to trauma. due to persistence of pain elected to give steroid injection on 12/17, Dr. Knapp, see procedure note pain much better on 12/18 right hip x-rays WITHOUT fracture (12) Right knee pain: OA/DJD voltaren gel QID if pain persists consider outpatient steroid injection (13) Vitamin B12 deficiency: in light of memory issues, balance issues, etc -- will replace parenterally while here at discharge change to PO vitamin B12 1000mcg daily (14) Memory loss: at the very least patient has mild cognitive impairment vs early dementia UNSAFE for him to live alone in [place] (lives in an apartment in [facility] in [place]) he IS agreeable to rehab/SNF placement at d/c replace b12 (15) Hypoxia: hopefully O2 requirement will resolve with adequate diuresis. if O2 requirement remains even after achieving euvolemia he could have pulmonary HTN contributing to O2 dependency. wean O2 as tolerated. (16) Constipated: resolved (17) DVT prophylaxis: xarelto PT/OT dispo - discussed with CM, planning for either [facility] or [facility] tomorrow Subjective patient continues to feel well ambulated around the RN station today with therapy using his walker he says that he enjoys his view out his window eating well breathing well, no edema, no chest pain reviewed labs, Cr is stable Review of Systems Review of Systems: All systems reviewed & are unremarkable except as noted in HPI & below Respiratory: no cough, no dyspnea and no dyspnea on exertion Cardiovascular: no chest pain and no edema Physical Exam Constitutional: WD/WN, vitals as above Eyes: PERRL, conjunctivae normal, anicteric sclerae ENMT: external ear and nose normal, oropharynx normal Neck: trachea midline, no thyromegaly Respiratory: normal respiratory effort, lungs clear to auscultation Cardiovascular: RRR, no murmur, no edema Gastrointestinal (Abdomen): normal bowel sounds, soft, nontender, no hepatosplenomegaly Musculoskeletal: no cyanosis or clubbing, extremities motor strength 5/5 Hip: hip normal to inspection, no effusion and no skin erythema Knee: knee normal to inspection, no effusion and no skin erythema Skin: no rashes, warm and dry Neurologic: patellar DTR's 2+ bilat, sensation intact and PERRL, EOMI, accommodation nl, no face palsy, no dysarthria Psychiatric: A+Ox3, euthymic affect Lymphatic: no cervical or axillary lymphadenopathy Results & Data Vital Signs (Past 12 Hours) Vital Signs Temp Pulse Resp BP Pulse Ox 12/20/18 07:13 36.5 C 62 18 144/86 H 94 Laboratory Results Laboratory Results - last 24 hr 12/20/18 06:13 Creatinine 1.41 H Est Cr Clr Drug Dosing 42.5 Est GFR ( Amer) 51.9 Est GFR (Non-Af Amer) 44.8 Medications Administered Current Inpatient Medications Acetaminophen (Tylenol) 650 mg PO Q4H PRN PRN Reason: Pain or Fever Stop: 01/13/19 21:03 Last Admin: 12/16/18 11:20 Dose: 650 mg Documented by: Al Hydrox/Mg Hydrox/Simethicone (Maalox) 15 ml PO Q4H PRN PRN Reason: Dyspepsia Stop: 01/13/19 21:03 Aspirin (Ecotrin Ectab) 81 mg PO QAM [facility] Stop: 01/14/19 08:59 Last Admin: 12/20/18 08:04 Dose: 81 mg Documented by: Atorvastatin Calcium (Lipitor) 40 mg PO HS [facility] Stop: 01/13/19 21:03 Last Admin: 12/19/18 20:39 Dose: 40 mg Documented by: Benzocaine/Butamben/Tetracaine HCl (Cetacaine) 1 appln EXT ONE PRN PRN Reason: Anesthesia Stop: 01/16/19 13:26 Bumetanide (Bumex) 1 mg PO BID17 [facility] Stop: 01/17/19 16:59 Last Admin: 12/20/18 08:04 Dose: 1 mg Documented by: Bupivacaine HCl (Sensorcaine 0.25% Inj) 2 ml INFIL ONE PRN PRN Reason: Anesthesia Stop: 01/16/19 13:26 Calcium Citrate (Citracal) 950 mg PO BID [facility] Stop: 01/13/19 21:03 Last Admin: 12/20/18 08:04 Dose: 950 mg Documented by: Carvedilol (Coreg) 3.125 mg PO BID [facility] Stop: 01/17/19 08:59 Last Admin: 12/20/18 08:04 Dose: 3.125 mg Documented by: Cyanocobalamin (Vitamin B-12) 1,000 mcg IM DAILY [facility] Stop: 01/16/19 08:59 Last Admin: 12/20/18 09:25 Dose: 1,000 mcg Documented by: Diclofenac Sodium (Voltaren 1% Top) 1 appln EXT QID [facility] Stop: 01/15/19 12:59 Last Admin: 12/20/18 13:39 Dose: 1 appln Documented by: Docusate Sodium (Colace) 100 mg PO BID [facility] Stop: 01/13/19 21:03 Last Admin: 12/20/18 08:06 Dose: 100 mg Documented by: Ferrous Sulfate (Feosol) 650 mg PO HS [facility] Stop: 01/13/19 21:03 Last Admin: 12/19/18 20:39 Dose: 650 mg Documented by: Lidocaine HCl (Xylocaine 1% (Local)) 2 ml INJ ONE PRN PRN Reason: Anesthesia Stop: 01/16/19 13:26 Lisinopril (Zestril) 5 mg PO DAILY [facility] Stop: 01/14/19 08:59 Last Admin: 12/20/18 08:04 Dose: 5 mg Documented by: Magnesium Hydroxide (Milk Of Magnesia) 30 ml PO Q12H PRN PRN Reason: Constipation Stop: 01/13/19 21:03 Methimazole (Tapazole) 5 mg PO DAILY [facility] Stop: 01/14/19 08:59 Last Admin: 12/20/18 08:04 Dose: 5 mg Documented by: Ondansetron HCl (Zofran) 4 mg IV Q6H PRN PRN Reason: Nausea Stop: 01/13/19 21:03 Pantoprazole Sodium (Protonix) 40 mg PO MoWeFr@0900 [facility] Stop: 01/15/19 08:59 Last Admin: 12/19/18 08:07 Dose: 40 mg Documented by: Polyethylene Glycol (Miralax Powder Packet) 17 gm PO DAILY [facility] Stop: 01/17/19 10:59 Last Admin: 12/20/18 08:06 Dose: 17 gm Documented by: Potassium Chloride (Klor-Con M10) 10 meq PO TID [facility] Stop: 01/13/19 21:03 Last Admin: 12/20/18 13:39 Dose: 10 meq Documented by: Quetiapine Fumarate (Seroquel) 50 mg PO HS [facility] Stop: 01/13/19 21:03 Last Admin: 12/19/18 20:39 Dose: 50 mg Documented by: Rivaroxaban (Xarelto) 15 mg PO QDD [facility] Stop: 01/14/19 16:29 Last Admin: 12/19/18 15:42 Dose: 15 mg Documented by: Sertraline HCl (Zoloft) 50 mg PO QAM [facility] Stop: 01/14/19 08:59 Last Admin: 12/20/18 08:04 Dose: 50 mg Documented by: Tramadol HCl (Ultram) 50 mg PO Q6H PRN PRN Reason: Pain Stop: 01/14/19 07:34 Last Admin: 12/19/18 22:31 Dose: 50 mg Documented by: PG Care Time/CCT Total # of Minutes Spent Total Time Spent with Patient: Total time spent is greater than 50% in coordination of care (as documented) at patient's floor/unit and/or counseling patient: (1) Atrial fibrillation Atrial fibrillation type: chronic Qualified Code(s): I48.2 - Chronic atrial fibrillation (2) HTN (hypertension) Hypertension type: essential hypertension Qualified Code(s): I10 - Essential (primary) hypertension (3) CVA (cerebral vascular accident) CVA mechanism: unspecified Qualified Code(s): I63.9 - Cerebral infarction, unspecified (4) Chronic obstructive pulmonary disease COPD type: chronic bronchitis Chronic bronchitis type: simple Qualified Code(s): J41.0 - Simple chronic bronchitis (5) Fall Encounter type: sequela Qualified Code(s): W19.XXXS - Unspecified fall, sequela (6) Right knee pain Chronicity: chronic Qualified Code(s): M25.561 - Pain in right knee; G89.29 - Other chronic pain
[2018-12-20] MEDS: RIVAROXABAN 15 MG TAB PO SCH (16:14)
[2018-12-20] MEDS: TRAMADOL HCL 50 MG TABLET PO PRN (18:53)
[2018-12-20] MEDS: FERROUS SULFATE 325 MG TAB PO SCH (20:34)
[2018-12-20] MEDS: ATORVASTATIN 40 MG TAB PO SCH (20:34)
[2018-12-20] MEDS: QUETIAPINE FUMARATE 25 MG TABLET PO SCH (20:34)
[2018-12-21] MEDS: TRAMADOL HCL 50 MG TABLET PO PRN (01:28)
[2018-12-21] MEDS: ACETAMINOPHEN 325 MG TAB PO PRN ×2 (03:10→10:19)
[2018-12-21 05:41] LABS: Hematocrit (blood only) 42.5 % (42-52); Hemoglobin 13.9 g/dL (14.0-18.0); Mean Corpuscular Hgb Conc 32.7 g/dL (32-36); Mean Corpuscular Volume 90.2 fL (80-100); Mean Platelet Volume 10.6 fL (7.4-10.4); Platelet Count 218 K/uL (130-400); RDW Coefficient of Variation 16.5 % (11.5-14.5); Red Blood Count 4.71 M/uL (4.7-6.1); White Blood Count 7.98 K/uL (4.8-10.8)
[2018-12-21 06:11] LABS: Albumin Level 3.9 gm/dl (3.4-5.0); Bilirubin Direct 0.2 mg/dl (0-0.2); Bilirubin,Total 0.8 mg/dl (0.2-1); Total Protein 7.4 gm/dl (6.4-8.2)
[2018-12-21] MEDS: methIMAzole 5 MG TABLET PO SCH (07:41)
[2018-12-21] MEDS: CALCIUM CITRATE 950 MG TAB PO SCH (07:41)
[2018-12-21] MEDS: LISINOPRIL 5 MG TAB PO SCH (07:41)
[2018-12-21] MEDS: ASPIRIN 81 MG ECTAB PO SCH (07:41)
[2018-12-21] MEDS: BUMETANIDE 1 MG TAB PO SCH (07:41)
[2018-12-21] MEDS: POTASSIUM CHLORIDE 10 MEQ TABCR PO SCH ×2 (07:41→12:45)
[2018-12-21] MEDS: PANTOprazole 40 MG TAB PO SCH (07:41)
[2018-12-21] MEDS: SERTRALINE HCL 50 MG TABLET PO SCH (07:41)
[2018-12-21] MEDS: CYANOCOBALAMIN 1000 MCG/ML VIAL IM SCH (07:42)
[2018-12-21] MEDS: DICLOFENAC SOD 1% GEL 100 GM TUBE EXT SCH ×2 (07:42→12:45)
[2018-12-21] MEDS: CARVEDILOL 3.125 MG TAB PO SCH (07:42)
[2018-12-21] MEDS: DOCUSATE SODIUM 100 MG CAP PO SCH (07:46)
[2018-12-21] MEDS: POLYETHYLENE (MIRALAX) 17 GM PACK PO SCH (07:46)
--- NOTE | 2018-12-21 11:36 | Discharge Summary ---
Date of Service December 21, 2018 Admission HPI Per Admitting Provider 88 M Hx CHF, HTN, HLD, Chronic AF, hyperthyroidism, AAA, anemia, depression. Presents with progressive dyspnea which is pronounced with exertion. He denies CP, a productive cough or fevers. Initial exam and imaging were consistent with volume overload. he was diuresed a litre in the ER which led to some improvement, however, he continued to desaturate with ambulation. Initial labs and an EKG were unremarkable. 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 Daughter lives nearly one hour away. He does not drink or smoke. Family: Father due to prostate CA Mother following an [place] Admission Exam Per Admitting Provider General: Pleasant, elderly M, AAO x 3, no distress at rest ENT: No erythema or exudates, no thrush Eyes: ADALGISA, EOMI Head and neck: Normocephalic, atraumatic, + R JVD, neck is supple. Chest/heart: Nontender, S1,2, RRR, no murmurs, no gallops Lungs: Crackles are audible on the L Abdomen: Nontender, nondistended, BS+ Neuro: AAO x 3, speech is clear, no unilateral weakness or loss of sensation, coordination intact Musculoskeletal: No joint inflammation, muscle tenderness, FROM Skin: No acute rashes or ulcers Extremities: No clubbing, cyanosis, edema Principal Diagnosis Acute on chronic systolic heart failure Discharge Exam Constitutional WD/WN, vitals as above Eyes PERRL, conjunctivae normal, anicteric sclerae ENMT external ear and nose normal, oropharynx normal Neck trachea midline, no thyromegaly Respiratory normal respiratory effort, lungs clear to auscultation Cardiovascular RRR, no murmur, no edema Gastrointestinal (Abdomen) normal bowel sounds, soft, nontender, no hepatosplenomegaly Musculoskeletal no cyanosis or clubbing, extremities motor strength 5/5 Hip: hip normal to inspection, no effusion and no skin erythema Knee: + joint line tenderness (tender over anterior bursa); knee normal to inspection, no effusion and no skin erythema Skin no rashes, warm and dry Neurologic patellar DTR's 2+ bilat, sensation intact and PERRL, EOMI, accommodation nl, no face palsy, no dysarthria Psychiatric A+Ox3, euthymic affect Lymphatic no cervical or axillary lymphadenopathy Discharge Data Allergies Allergy/AdvReac Type Severity Reaction Status Date / Time Iodinated Contrast- Oral and Allergy Severe ANAPHYLAXIS Verified 12/14/18 17:12 IV Dye Sulfa (Sulfonamide Allergy Unknown UNKNOWN Verified 12/14/18 17:12 Antibiotics) Consultations 12/14/18 19:42 ED Decision to Admit Stat Ordered Studies 12/17/18 08:18 CT chest wo con Routine Hospital Course (1) Acute on chronic systolic (congestive) heart failure: Volume status much improved for several days, no rales, no edema in legs BUN and Cr remain stable, Cr is 1.4 titrated to room air for several days CT chest obtained on 12/17, just showed some edema changed Bumex from IV to PO on 12/18, continues to examine euvolemic HRs improved with holding metoprolol. Tried Coreg in nayeli of metoprolol as Coreg tends to not have as much effect on HR. HR in the 60's-70's Last echo in 2016 showed EF 25-30%; EF now 60-65%. appreciate CHF clinic consultation. will follow w/ [facility] and Dr Rowland after d/c. discussed with Charlene SANTOS yesterday, she has him scheduled for follow on 12/30 (2) Atrial fibrillation: rates were slow, sometimes upper 30s, with metoprolol 12.5mg BID. metoprolol held/stopped and HRs were much better. started on coreg 3.125mg BID and HR in the 60-70 range will proceed forward with coreg 3.125mg BID. continue xarelto for anticoagulation (3) Hyperthyroidism: On methimazole. TSH this admission normal. (4) 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: Based on prior scans. Has been deemed not a surgical candidate in the past. No abdominal symptoms. (5) HTN (hypertension): Controlled Cont current meds (6) CVA (cerebral vascular accident): history of cont asa and xarelto for secondary prevention along with statin agent (7) Chronic obstructive pulmonary disease: no symptoms or exacerbation at this time (8) Chronic kidney disease, stage 3a: creatinine stable at 1.4 for several days on Bumex BMP am Baseline CrCl 40s to 50s continue Bumex PO (9) Hydrocele, bilateral: likely cause of chronic scrotal edema no Rx needed scrotal support testicular u/s confirmed earlier this year (10) Fall: etiology?? slow HRs? due to OA of knees and/or hip issues? b12 deficiency? other? he cannot recall mechanism, how often it happened at home, etc says he does not feel safe PT/OT, recommend SNF rehab will d/c today (11) Trochanteric bursitis, right hip: likely due to trauma. due to persistence of pain elected to give steroid injection on 12/17, Dr. Knapp, see procedure note pain much better on 12/18 right hip x-rays WITHOUT fracture (12) Right knee pain: OA/DJD voltaren gel QID, Ultram PRN if pain persists consider outpatient steroid injection (13) Vitamin B12 deficiency: in light of memory issues, balance issues, etc -- will replace parenterally while here at discharge change to PO vitamin B12 1000mcg daily (14) Memory loss: at the very least patient has mild cognitive impairment vs early dementia UNSAFE for him to live alone in [place] (lives in an apartment in [facility] in [place]) he IS agreeable to rehab/SNF placement at d/c replace b12 (15) Hypoxia: on room air for several day, lungs clear hypoxia was purely due to pulmonary edema (16) Constipated: resolved (17) DVT prophylaxis: xarelto PT/OT dispo - to SNF for rehab Total Time Total Time Spent Total Time Spent (In Minutes): 35 minutes Total Time Includes: Examination of the Patient, Discharge Planning and Medication Reconciliation Discharge Plan Discharge Items Patient Disposition: Transfer Detention Fac Reason For Visit: CHF EXACERBATION Discharge Diagnosis: Acute on chronic systolic heart failure Condition: Good Discharge Goals: Improve function and Increase independence Activity: Resume your previous activity Non-emergency contact: Primary Care Provider and Contract Administrator Call non-emergency contact if: you have any medication questions, your symptoms worsen and you have a fever Follow-up/Referrals: Charlene Donovan PA-C [Physician Freight Checker] - 12/30/18 10:30 am (Congestive Heart Failure Program Appointment Information Early follow up is essential to managing your heart failure. An appointment has been scheduled for you with the [facility] Heart Failure Program within 7 days of discharge. Anticipate this visit to be 30-60 minutes long. Please expect a neurology teacher phone call from one of our nurses approximately 48 hours from discharge. They will also be placing an order for lab work to be completed 1-2 days prior to your heart failure follow up appointment. Please be sure to have this done so we can go over the results when you come in. Office Location The cardiology office building is located in front of the hospital at [address]. Bring the following with you to your follow-up doctor appointments: Please bring your daily weight log any discharge paperwork all of your medication bottles with you to this visit. ) Hakan Willingham [Primary Care Provider] - Diet: Heart Healthy Fluids: 1800ml (7 cups) Addtl Provider Instructions: Medications: - CARVEDILOL: 3.25mg twice a day, next dose due tonight, this replaces the metoprolol that you were taking - POTASSIUM: take 10mEq twice a day - ULTRAM: use as needed for hip and knee pain - DICLOFENAC: use gel four times a day on right knee Acute on chronic heart failure acute component resolved for several days, examines euvolemic continue on Bumex 1mg twice a day continue on carvedilol and lisinopril follow a fluid restriction of 1800mL a day need to step on scale EVERY morning to make sure your weight does not go up if weight is trending up by 2-3 lbs then call doctor for further instructions follow up in the heart failure clinic with Charlene Donovan on 12/30 Hip and knee pain due to repeat falls at home, no evidence of fractures or other injuries likely some bursitis on top of chronic arthritis had injection of lidocaine into right trochanteric bursa on 12/17, good relief of pain if pain in right knee persists could consider injection of bursa as outpatient as most of the pain is over the bursa sac Call your Primary Care doctor if any of the following symptoms or problems start or get worse: * Shortness of breath or difficulty breathing * Wake up at night short of breath * Chest pain * Cough * Swelling of your hands, feet, or legs * More fatigued or tired with your normal activity * Palpitations - sudden fast heart beats WEIGHT * Weigh yourself every morning after using the bathroom. * Use the same scale. * Wear the same amount of clothing. * Write your weight down on a chart. * Call your Primary Care doctor if you gain more than 2-3 pounds in 1-2 days. MEDICATIONS * Use this discharge instruction sheet for medication instructions. * Take your medications at the time your doctor ordered. * Do not skip a dose of your medicines. * If you miss a dose of medicine, take it as soon as possible, but DO NOT DOUBLE A DOSE. * Read your medicine information when you get home. * Know all of the side effects of your medicine. If in doubt, ask your pharmacist * Call your Primary Care doctor's office if you have any side effects. * Be sure all of your doctors know what medicine and herbs you take (including cold, flu, and herbal medicine). Take the following with you to your follow-up doctor appointments: * Weight Chart * Medication List * List of questions Do not drink excessive alcohol, beer or wine. Prescriptions: New tramadol 50 mg Tablet 50 mg PO Q6H PRN (Reason: pain) 30 Days Qty: 60 RF: 0 carvedilol 3.125 mg Tablet 3.125 mg PO BID 30 Days Qty: 60 RF: 3 potassium chloride [Klor-Con M10] 10 mEq Tablet,Er Particles/Crystals 10 meq PO BID 30 Days Qty: 60 RF: 0 diclofenac sodium [Voltaren] 1 % Gel 2 gm EXT QID PRN (Reason: pain) Qty: 100 RF: 0 Continued atorvastatin 40 mg Tablet 40 mg PO HS RF: 0 methimazole 5 mg Tablet 5 mg PO DAILY RF: 0 aspirin [Aspirin Childrens] 81 mg Tablet,Chewable 81 mg PO QAM RF: 0 ergocalciferol (vitamin D2) [Vitamin D2] 50,000 unit Capsule 50,000 unit PO WK RF: 0 sertraline 50 mg Tablet 50 mg PO QAM RF: 0 quetiapine 50 mg Tablet 50 mg PO HS RF: 0 Xarelto 15 mg Tablet 15 mg PO QAM RF: 0 lisinopril 5 mg tablet 5 mg PO DAILY Qty: 30 RF: 0 pantoprazole [Protonix] 40 mg tablet,delayed release (DR/EC) 40 mg PO 3XWK RF: 0 ferrous sulfate 325 mg (65 mg iron) Tablet 650 mg PO HS RF: 0 docusate sodium [Colace] 100 mg Capsule 100 mg PO BID RF: 0 bumetanide 1 mg tablet 1 mg PO BID RF: 0 calcium citrate [Calcitrate] 200 mg (950 mg) tablet 200 mg PO BID RF: 0 Discontinued metoprolol tartrate 50 mg Tablet 12.5 mg PO BID RF: 0 Stand-Alone Forms: [facility] Discharge Orders: Discharge Order (Routine); Ordered 12/21/18 Ordered By: Woody Soares Skilled Items Patient informed of condition?: Yes DNR: No Discharge Level of Care: Skilled Communicable Disease: No Discharge Prognosis: Stable Admission Data Admit Date/Time: 12/14/18 20:03 Attending Provider: Woody Soares Admit Provider: Austin Baugh Primary Care Provider: Hakan Willingham Other Providers: IRB Approved Study,Austin Butt Service: Medical Other Interventions: Discharge Summary Assessment (RN) Last Done: 12/21/18 10:45
== END 2018-12-21 13:10 | DRG 291 ==
LOC: ED 15:32 → SUATTDRO 20:03 → 2S 20:03 → 4E 12-19 15:23

== ENCOUNTER 2018-12-31 10:42 | Inpatient (IN) ==
[2018-12-31] MEDS ORDERED: SODIUM CHLORIDE 0.9% 500 ML IV SCH (11:30)
[2018-12-31 11:55] LABS: Basophils # (auto) 0.02 K/uL (0-0.2); Basophils % (auto) 0.1 %; Eosinophils # (auto) 0.02 K/uL (0-0.5); Eosinophils % (auto) 0.1 %; Hematocrit (blood only) 39.9 % (42-52); Hemoglobin 13.2 g/dL (14.0-18.0); Immature Granulocytes # (auto) 0.08 K/uL (0.00-0.02); Immature Granulocytes % (auto) 0.5 %; Lymphocytes # (auto) 1.29 K/uL (1.2-3.4); Mean Corpuscular Hgb Conc 33.1 g/dL (32-36); Mean Corpuscular Volume 88.5 fL (80-100); Mean Platelet Volume 10.7 fL (7.4-10.4); Monocytes # (auto) 1.74 K/uL (0.11-0.59); Monocytes % (auto) 10.8 %; Neutrophils # (auto) 13.01 K/uL (1.4-6.5); Neutrophils % (auto) 80.5 %; Platelet Count 197 K/uL (130-400); RDW Standard Deviation 51.7 fL (36.4-46.3); Red Blood Count 4.51 M/uL (4.7-6.1); White Blood Count 16.16 K/uL (4.8-10.8)
[2018-12-31 12:05] LABS: INR 1.1 (0.9-1.1); Prothrombin Time 11.6 Seconds (9.0-12.0)
--- NOTE | 2018-12-31 12:05 | XRay Report ---
XR chest 1V portable HISTORY: cough yellow sputum COMPARISON: Chest CT 12/17/2018. Chest x-ray 12/14/2018. FINDINGS: No pneumothorax. Mild emphysema. No pleural effusions. No new focal lung consolidations to suggest pneumonia. No evidence for pulmonary edema. A few bibasilar linear densities favor subsegment al atelectasis or scarring. The heart remains mildly enlarged. IMPRESSION: 1. Mild cardiomegaly. 2. Mild emphysema. Electronically signed by: Marty Do M.D. 12/31/2018 12:04 PM
[2018-12-31 12:11] LABS: Alanine Aminotransferase 29 U/L (12-78); Albumin Level 3.1 gm/dl (3.4-5.0); Aspartate Aminotransferase 23 U/L (15-37); BUN Creatinine Ratio 22.4 (10-20); Blood Urea Nitrogen 38 mg/dl (7-18); Carbon Dioxide 26 mmol/L (21-32); Chloride 103 mmol/L (98-107); Est GFR (African American) 41.4; Est GFR (Non-African American) 35.7; Glucose 127 mg/dl (70-99); Potassium 4.8 mmol/L (3.5-5.1); Sodium 136 mmol/L (136-145)
[2018-12-31 12:13] LABS: Calcium 8.5 mg/dl (8.5-10.1)
[2018-12-31 12:14] LABS: Albumin Globulin Ratio 0.8 (0.9-2); Alkaline Phosphatase 124 U/L (45-117); Bilirubin,Total 0.9 mg/dl (0.2-1); Globulin 4.1 gm/dl (2.5-4.0); Total Protein 7.2 gm/dl (6.4-8.2)
--- NOTE | 2018-12-31 12:20 | CT Scan Report ---
ABDOMEN AND PELVIS CT WITHOUT CONTRAST CT DOSE: 620.78 mGy.cm HISTORY: Right upper quadrant pain. TECHNIQUE: Multiaxial CT images of the abdomen and pelvis were performed without contrast. A dose lo wering technique was utilized adhering to the principles of ALARA. COMPARISON STUDY: Abdomen and pelvis CT 06/24/2018. FINDINGS: Moderate hiatus hernia. The heart remains enlarged. Trace bilateral pleural effusions. This has improved. Patchy densities within the base of the left lower lobe have progressed. This may repr esent a pneumonia. No suspicious lytic or blastic osseous lesions. Old left-sided rib fractures. Smal l fat-containing bilateral inguinal hernias. The normal appendix appears to extend into the right ing uinal hernia. The gallbladder remains mildly distended. Multiple small gallstones are again noted. No rmal caliber common bile duct. Questionable punctate nonobstructing stone within the distal common bi le duct best seen on image 156. A few hypodense lesions within the liver which remain unchanged. Ther efore, these are likely benign. The unenhanced spleen, pancreas, and right adrenal gland are unremark able. Mild nodular thickening of the left adrenal gland, unchanged. No renal or ureteral stones. No h ydronephrosis. Normal bladder. No retroperitoneal lymphadenopathy. Increase in size in the juxtarenal abdominal aortic aneurysm. This currently measures 6.5 x 4.3 cm measured at the level of the left re nal artery. This previously measured 5.6 x 4.3 cm. No retroperitoneal hemorrhage identified. Stable 2 .5 cm hypodense lesion within the right kidney. This is technically too small to characterize but fav ors a cyst. Suboptimal evaluation for bowel pathology due to the lack of intravenous and oral contras t. However, there is no definite bowel wall thickening or obstruction. Colonic diverticulosis. No will dence for diverticulitis. IMPRESSION: 1. No change in the cholelithiasis and mildly distended gallbladder. Questionable punctate nonobstruc ting stone within the distal common bile duct. No bile duct dilatation. Follow-up ultrasound recommen ded for further evaluation. 2. Increase in size in the 6.5 x 4.3 cm juxtarenal abdominal aortic aneurysm. No evidence for retrope ritoneal hematoma. 3. No bowel wall thickening or obstruction. 4. Colonic diverticulosis. No evidence for diverticulitis. 5. Patchy airspace opacities within the base of the left lower lobe. This may represent a pneumonia. 6. Trace bilateral pleural effusions. 7. Moderate hiatus hernia, unchanged. 8. Normal caliber appendix which extends into the small right inguinal hernia. No evidence for acute appendicitis. Electronically signed by: Marty Do M.D. 12/31/2018 12:18 PM
--- NOTE | 2018-12-31 12:26 | Emergency Department Note ---
Entered by Meagan Ceron acting as a scribe for Rafael Tee DO History of Present Illness General Chief complaint: Abdominal Pain Stated complaint: abd pain Time Seen by Provider: 12/31/18 10:45 Source: patient and other (nursing care facility records) History of Present Illness Onset (ago): day(s) 2 Location: abdomen Radiation: extremity (lower) Pain Consistency: + other (episode) Associated symptoms: + denies other symptoms (shortness of breath) and + other (productive cough with yellow sputum, nausea, dry heaving, constipation, loss of appetite) The patient is a 88 year old male that is presenting to the Emergency Room with complaints of an episode of abdominal pain that started yesterday. The patient is a resident at [facility], which provided some of the history. According to the patients records, the patient was complaining of left lower quadrant pain yesterday and then right lower quadrant pain this morning. His paperwork states that the pain radiated into his legs. The patient reports that he has been coughing and dry heaving. He states that he feels like he needs to vomit but that he is unable to. He notes that he is coughing up thick yellow sputum. He states that he has not had a bowel movement in three days. He reports that he felt he was going to if he stayed at his facility. He denies any recent shortness of breath. The patient denies using O2 at home. The patient reports that he did not take his medications today as per a nurses instruction at his facility. He denies taking any Miralax for his constipation. The patient states that he has not eaten in several days. He notes that he was in the ED last month following a fall. He states he has lower extremity pain secondary to the fall. Home Medications Home Medications Medication Instructions Recorded Confirmed Type Xarelto 15 mg PO QAM 05/11/18 12/31/18 History aspirin [Aspirin Childrens] 81 mg PO QAM 05/11/18 12/31/18 History atorvastatin 40 mg PO HS 05/11/18 12/31/18 History ergocalciferol (vitamin D2) 50,000 unit PO WK 05/11/18 12/31/18 History [Vitamin D2] methimazole 5 mg PO QAM 05/11/18 12/31/18 History quetiapine 50 mg PO HS 05/11/18 12/31/18 History sertraline 50 mg PO QAM 05/11/18 12/31/18 History bumetanide 1 mg PO BID17 12/14/18 12/31/18 History calcium citrate [Calcitrate] 200 mg PO BID 12/14/18 12/31/18 History docusate sodium [Colace] 100 mg PO BID 12/14/18 12/31/18 History pantoprazole [Protonix] 40 mg PO 3XWK 12/14/18 12/31/18 History carvedilol 3.125 mg PO BID 30 Days #60 tab 12/21/18 12/31/18 Rx potassium chloride [Klor-Con M10] 10 meq PO BID 30 Days #60 tab 12/21/18 12/31/18 Rx tramadol 50 mg PO Q6H PRN 30 Days #60 tab 12/21/18 12/31/18 Rx diclofenac sodium [Voltaren] 4 g TOPICAL TID 12/31/18 12/31/18 History lisinopril 5 mg PO QAM 12/31/18 12/31/18 History Allergies Allergy/AdvReac Type Severity Reaction Status Date / Time Iodinated Contrast- Oral and Allergy Severe ANAPHYLAXIS Verified 12/31/18 11:30 IV Dye Sulfa (Sulfonamide Allergy Unknown UNKNOWN Verified 12/31/18 11:30 Antibiotics) Past Med/Surg History Medical History Cholelithiasis 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 (Chroni c) Hyperthyroidism (Chronic) Lymphoma (Chronic) HTN (hypertension) (Chronic) CHF (congestive heart failure) (Chronic) EF 25-30% (May 14) Hypertension (Chronic) GERD (gastroesophageal reflux disease) (Chronic) Chronic obstructive pulmonary disease (Chronic) Depression (Chronic) Atrial fibrillation (Chronic) Cancer lYMPHOMA Congestive heart failure Stroke Surgical History History of cardiac cath Family History Unknown Myocardial infarction Social History Preferred Language: Georgian Communication Ability: Effective Visual Impairment: Partially Limited Beliefs That Will Affect Care: None marital status: / Current Living Situation: Alone Feels Safe at Home: Yes Smoking Status: Unknown if ever smoked Hx Alcohol Use: No Hx Substance Use: No Review of Systems See HPI for pertinent positives & negatives. and A total of 10 systems reviewed and were otherwise negative Physical Exam Vital Signs Vital Signs - 24 hr 12/31/18 10:51 12/31/18 11:46 12/31/18 12:52 Temperature 37.0 C Temperature Source Oral Sepsis Recent Fever Within 48 Hours No Sepsis New/Unexplained Change in Mental Status No Sepsis Action Taken by Nursing No Action Required Pulse Rate 89 84 Pulse Rate [Right Finger] 86 Respiratory Rate 18 16 Respiratory Effort / Characteristics Non-Labored Respiratory Depth Normal Blood Pressure 107/66 Blood Pressure [Right Arm] 118/66 Blood Pressure Mean 79 Blood Pressure Mean [Right Arm] 83 Pulse Oximetry 89 L 93 94 Oxygen Delivery Method Nasal Cannula Nasal Cannula Nasal Cannula Oxygen Flow Rate 2 2 2 12/31/18 14:00 12/31/18 14:13 Temperature Temperature Source Sepsis Recent Fever Within 48 Hours Sepsis New/Unexplained Change in Mental Status Sepsis Action Taken by Nursing Pulse Rate Pulse Rate [Right Finger] 78 Respiratory Rate 26 H Respiratory Effort / Characteristics Non-Labored Respiratory Depth Normal Blood Pressure Blood Pressure [Right Arm] 118/76 Blood Pressure Mean Blood Pressure Mean [Right Arm] 90 Pulse Oximetry 95 88 L Oxygen Delivery Method Nasal Cannula Room Air Oxygen Flow Rate 2 CONSTITUTIONAL/VITAL SIGNS: Reviewed / noted above. GENERAL: Non-toxic in appearance. INTEGUMENTARY: Warm, dry, and [place]. HEAD: Normocephalic. EYES: without scleral icterus or trauma. ENT/OROPHARYNX: clear and moist. LYMPHADENOPATHY/NECK: Is supple without lymphadenopathy or meningismus. RESPIRATORY: Cough producing yellow sputum. Crackles at the base of the lungs. CARDIOVASCULAR: Regular rate and rhythm. GI/ABDOMEN: Soft. No organomegaly or pulsatile mass. No rebound or guarding. Normal bowel sounds. Right upper quadrant tenderness. EXTREMITIES: Warm and well perfused. BACK: No CVA tenderness. NEUROLOGICAL: Intact without focal deficits. PSYCHIATRIC: normal affect. MUSCULOSKELETAL: Normally developed with good muscle tone. Course 1050:The patient was evaluated in room C06. A complete history and physical examination was performed. 1240: I updated the patient on his lab and imaging results. The patient is resting comfortably at this time. 1404: Upon reevaluation, the patient's O2 saturation level dropped to 88% on room air after being removed from a nasal cannula. 1417: I discussed the patient's case with SRINIVASAN Arredondo, who will evaluate the patient for further management and care. 1430: Upon reevaluation, the patient is resting comfortably. I discussed laboratory and radiographic results with the patient. He verbalized agreement of the treatment plan. The patient will be evaluated for further management and care. Consultations Consultation #1: I discussed the patient's case with SRINIVASAN Arredondo, who will evaluate the patient for further management and care. Time: 14:17 Administered Medications Discontinued Medications Sodium Chloride (Nss) 500 mls @ 999 mls/hr IV .Q31M DAVID Stop: 12/31/18 12:00 Last Infusion: 12/31/18 12:32 Dose: 0 mls/hr Documented by: [id number] Admin: 12/31/18 11:50 Dose: 999 mls/hr Documented by: [id number] Levofloxacin (Levaquin) 500 mg PO NOW STA Stop: 12/31/18 12:29 Last Admin: 12/31/18 12:52 Dose: 500 mg Documented by: [id number] Medical Decision Making Differential Diagnosis Differential considered: pancreatitis, hepatitis, or acute cholecystitis, AAA, UTI, pyelonephritis, kidney stones, appendicitis, diverticulitis, shingles, bowel obstruction mesenteric ischemia, intussusception,hernia, testicular torsion. Medical Records Attestation: I reviewed the patient's medical records. Home Medications Current Medication List: was personally reviewed by me Laboratory Data Attestation: I reviewed the patient's lab results. Result diagrams: 12/31/18 11:43 12/31/18 11:43 Lab Results 12/31/18 12/31/18 12/31/18 Range/Units 11:43 11:43 11:43 WBC 16.16 H (4.8-10.8) K/uL RBC 4.51 L (4.7-6.1) M/uL Hgb 13.2 L (14.0-18.0) g/dL Hct 39.9 L (42-52) % MCV 88.5 (80-100) fL MCH 29.3 (25-34) pg MCHC 33.1 (32-36) g/dL RDW Std Deviation 51.7 H (36.4-46.3) fL RDW Coeff of Jennifer 16.0 H (11.5-14.5) % Plt Count 197 (130-400) K/uL MPV 10.7 H (7.4-10.4) fL Immature Gran % (Auto) 0.5 % Neut % (Auto) 80.5 % Lymph % (Auto) 8.0 % [place] % (Auto) 10.8 % Eos % (Auto) 0.1 % Baso % (Auto) 0.1 % Immature Gran # (Auto) 0.08 H (0.00-0.02) K/uL Neut # (Auto) 13.01 H (1.4-6.5) K/uL Lymph # (Auto) 1.29 (1.2-3.4) K/uL [place] # (Auto) 1.74 H (0.11-0.59) K/uL Eos # (Auto) 0.02 (0-0.5) K/uL Baso # (Auto) 0.02 (0-0.2) K/uL PT 11.6 (9.0-12.0) Seconds INR 1.1 (0.9-1.1) Sodium 136 (136-145) mmol/L Potassium 4.8 (3.5-5.1) mmol/L Chloride 103 (98-107) mmol/L Carbon Dioxide 26 (21-32) mmol/L Anion Gap 7.0 (3-11) BUN 38 H (7-18) mg/dl Creatinine 1.70 H (0.6-1.4) mg/dl Est Cr Clr Drug Dosing Not Reportable Est GFR ( Amer) 41.4 Est GFR (Non-Af Amer) 35.7 BUN/Creatinine Ratio 22.4 H (10-20) Glucose 127 H (70-99) mg/dl Calcium 8.5 (8.5-10.1) mg/dl Total Bilirubin 0.9 (0.2-1) mg/dl AST 23 (15-37) U/L ALT 29 (12-78) U/L Alkaline Phosphatase 124 H (45-117) U/L Total Protein 7.2 (6.4-8.2) gm/dl Albumin 3.1 L (3.4-5.0) gm/dl Globulin 4.1 H (2.5-4.0) gm/dl Albumin/Globulin Ratio 0.8 L (0.9-2) Lipase 128 (73-393) U/L Imaging Data Radiologist's Impression: Radiology results as stated below per my review and the radiologist's interpretation: XR chest 1V portable HISTORY: cough yellow sputum COMPARISON: Chest CT 12/17/2018. Chest x-ray 12/14/2018. FINDINGS: No pneumothorax. Mild emphysema. No pleural effusions. No new focal lung consolidations to suggest pneumonia. No evidence for pulmonary edema. A few bibasilar linear densities favor subsegmental atelectasis or scarring. The heart remains mildly enlarged. IMPRESSION: 1. Mild cardiomegaly. 2. Mild emphysema. Electronically signed by: Marty Do M.D. 12/31/2018 12:04 PM ABDOMEN AND PELVIS CT WITHOUT CONTRAST CT DOSE: 620.78 mGy.cm HISTORY: Right upper quadrant pain. TECHNIQUE: Multiaxial CT images of the abdomen and pelvis were performed without contrast. A dose lowering technique was utilized adhering to the principles of ALARA. COMPARISON STUDY: Abdomen and pelvis CT 06/24/2018. FINDINGS: Moderate hiatus hernia. The heart remains enlarged. Trace bilateral pleural effusions. This has improved. Patchy densities within the base of the left lower lobe have progressed. This may represent a pneumonia. No suspicious lytic or blastic osseous lesions. Old left-sided rib fractures. Small fat- containing bilateral inguinal hernias. The normal appendix appears to extend into the right inguinal hernia. The gallbladder remains mildly distended. Multiple small gallstones are again noted. Normal caliber common bile duct. Questionable punctate nonobstructing stone within the distal common bile duct best seen on image 156. A few hypodense lesions within the liver which remain unchanged. Therefore, these are likely benign. The unenhanced spleen, pancreas, and right adrenal gland are unremarkable. Mild nodular thickening of the left adrenal gland, unchanged. No renal or ureteral stones. No hydronephrosis. Normal bladder. No retroperitoneal lymphadenopathy. Increase in size in the juxtarenal abdominal aortic aneurysm. This currently measures 6.5 x 4.3 cm measured at the level of the left renal artery. This previously measured 5.6 x 4.3 cm. No retroperitoneal hemorrhage identified. Stable 2.5 cm hypodense lesion within the right kidney. This is technically too small to characterize but favors a cyst. Suboptimal evaluation for bowel pathology due to the lack of intravenous and oral contrast. However, there is no definite bowel wall thickening or obstru ction. Colonic diverticulosis. No evidence for diverticulitis. IMPRESSION: 1. No change in the cholelithiasis and mildly distended gallbladder. Questionable punctate nonobstructing stone within the distal common bile duct. No bile duct dilatation. Follow-up ultrasound recommended for further eval uation. 2. Increase in size in the 6.5 x 4.3 cm juxtarenal abdominal aortic aneurysm. No evidence for retroperitoneal hematoma. 3. No bowel wall thickening or obstruction. 4. Colonic diverticulosis. No evidence for diverticulitis. 5. Patchy airspace opacities within the base of the left lower lobe. This may represent a pneumonia. 6. Trace bilateral pleural effusions. 7. Moderate hiatus hernia, unchanged. 8. Normal caliber appendix which extends into the small right inguinal hernia. No evidence for acute appendicitis. Electronically signed by: Marty Do M.D. 12/31/2018 12:18 PM Blood Pressure Blood Pressure Findings: Normal blood pressure MDM Narrative This is a 88-year-old male who presents to the ED with a chief complaint of a productive cough for yellow sputum. The patient feels that he might have pneumonia. He also complained of some right upper quadrant tenderness on my e xam. The patient states that he has not had a bowel movement for a few days. His pulse ox was documented 89% when he came in on room air. He does produce yellow sputum on cough during my evaluation. His exam reveals some crackles at the bases of his left lung. The patient otherwise does not appear to be in any respiratory distress. He was tender on the right upper quadrant on my exam. No rebound. A chest x-ray did not show acute process but a CT scan of the abdomen pelvis reveals a patchy pneumonia in the left lower lung. There is also noted to be enlarged aorta at 6.5 x 4.3 cm. This is enlarged from 5.6 x 4.3 cm in May 2018. There is noted to be cholelithiasis and possibly a punctate nonobstructing stone in the distal common bile duct. The patient's LFTs were unremarkable. The patient also has an inguinal hernia on the right. Does not appear incarcerated. His white blood cell count was 16. BUN is 38 and creatinine is 1.7. The patient was treated with IV fluids. The patient was initially treated with oral Levaquin. When the oxygen was removed, the patient's pulse ox dropped to 88%. The patient was seen by the hospitalist for pneumonia and hypoxia. He was given IV cefepime. Blood cultures have been taken. Impression & Plan Pneumonia, Hypoxia Discharge Plan Visit Data Chief Complaint: Abdominal Pain Stated Complaint: abd pain ED Provider: Rafael Tee Discharge Problem: Pneumonia, Hypoxia Patient Disposition: Being Evaluated by Hospitalist Forms Stand Alone Forms: [facility] Prescriptions Prescriptions: No Action atorvastatin 40 mg Tablet 40 mg PO HS RF: 0 methimazole 5 mg Tablet 5 mg PO QAM RF: 0 aspirin [Aspirin Childrens] 81 mg Tablet,Chewable 81 mg PO QAM RF: 0 ergocalciferol (vitamin D2) [Vitamin D2] 50,000 unit Capsule 50,000 unit PO WK RF: 0 sertraline 50 mg Tablet 50 mg PO QAM RF: 0 quetiapine 50 mg Tablet 50 mg PO HS RF: 0 Xarelto 15 mg Tablet 15 mg PO QAM RF: 0 diclofenac sodium [Voltaren] 1 % Gel 4 g TOPICAL TID RF: 0 lisinopril 5 mg tablet 5 mg PO QAM RF: 0 pantoprazole [Protonix] 40 mg tablet,delayed release (DR/EC) 40 mg PO 3XWK RF: 0 docusate sodium [Colace] 100 mg Capsule 100 mg PO BID RF: 0 bumetanide 1 mg tablet 1 mg PO BID17 RF: 0 calcium citrate [Calcitrate] 200 mg (950 mg) tablet 200 mg PO BID RF: 0 tramadol 50 mg Tablet 50 mg PO Q6H PRN (Reason: pain) 30 Days Qty: 60 RF: 0 carvedilol 3.125 mg Tablet 3.125 mg PO BID 30 Days Qty: 60 RF: 3 potassium chloride [Klor-Con M10] 10 mEq Tablet,Er Particles/Crystals 10 meq PO BID 30 Days Qty: 60 RF: 0 Referrals Referrals: Hakan Willingham [Primary Care Provider] - Discharge Problem: Pneumonia Qualifiers: Pneumonia type: due to unspecified organism Laterality: left Lung location: lower lobe of lung Qualified Code(s): J18.1 - Lobar pneumonia, unspecified organism The scribe's documentation has been prepared under my direction and personally reviewed by me in its entirety. I confirm that the note above accurately reflects all work, treatment, procedures, and medical decision making performed by me.
[2018-12-31] MEDS ORDERED: levoFLOXacin 500 MG TAB PO STA (12:28)
[2018-12-31] MEDS ORDERED: CEFEPIME 2,000 MG/20 ML VIAL IV STA (14:17)
[2018-12-31] MEDS ORDERED: CEFEPIME 20 ML IV STA (15:43)
--- NOTE | 2018-12-31 16:11 | History & Physical Report ---
Date of Service December 31, 2018 Assessment & Plan (1) Pneumonia: 88 M Hx CHF, HTN, HLD, Chronic AF, hyperthyroidism, 6.5 cm AAA, CKD III, anemia, depression. The pt was sent in from a nursing facility with a reported complaint of lower quadrant abdominal pain and nausea. He gave me an entirely different story as to why he had arrived, stating that he was short of breath with a productive cough and a fever. Based on the initial complaint and his AAA history, a CT abdomen was obtained on arrival to the ER. This showed progression of his aneurysm and a LLL infiltrate. No additional abnormalities were noted in the abdomen. He was requiring 2L 02 to maintain an adequate saturation at the time of admission. Initial labs are notable for leukocytosis and mild SHAY. He coughed frequently during my examination. 1) PNM - placed on HCAP coverage with Levaquin and Cefepime- MRSA swab pending. 02 protocol and scheduled nebs provided 2) Abdominal pain - etiology unclear and appears to have resolved - AAA is enlarging and has gone from 5.7CM to 6.5CM over the past 8 months. He is at s ignificant danger of rupture. Would consider an increase in his Carvedilol dose. 3) CHF - the pt was clinically dehydrated on arrival - he received IVF in the ER - will resume his diuretics AM - cont Carvedilol 4) Chronic AF - cont Metoprolol, Xarelto 5) HTN, HLD - cont lisinopril, atorvastatin 6) Hyperthyroidism - cont methimazole 7) Anemia - Hb is at or above baseline 8) Depression - cont sertraline, quetiapine 9) SHAY - on CKD III - IVF provided in ER - recheck BMP AM Full code - Xarelto prophylaxis Total time for this admit including review of labs, meds, imaging, records - discussion with pt and ER attending - 48 min Present on Admission?: Yes History of Present Illness Primary Care Provider: Hakan Willingham 88 M Hx CHF, HTN, HLD, Chronic AF, hyperthyroidism, 6.5 cm AAA, CKD III, anemia, depression. The pt was sent in from a nursing facility with a reported complaint of lower quadrant abdominal pain and nausea. He gave me an entirely different story as to why he had arrived, stating that he was short of breath with a productive cough and a fever. Based on the initial complaint and his AAA history, a CT abdomen was obtained on arrival to the ER. This showed progression of his aneurysm and a LLL infiltrate. No additional abnormalities were noted in the abdomen. He was requiring 2L 02 to maintain an adequate saturation at the time of admission. Initial labs are notable for leukocytosis and mild SHAY. He coughed frequently during my examination. 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 Daughter lives nearly one hour away. He does not drink or smoke. Family: Father due to prostate CA Mother following an ND Allergies Allergy/AdvReac Type Severity Reaction Status Date / Time Iodinated Contrast- Oral and Allergy Severe ANAPHYLAXIS Verified 12/31/18 11:30 IV Dye Sulfa (Sulfonamide Allergy Unknown UNKNOWN Verified 12/31/18 11:30 Antibiotics) Home Medications Home Medications Medication Instructions Recorded Confirmed Type Xarelto 15 mg PO QAM 05/11/18 12/31/18 History aspirin [Aspirin Childrens] 81 mg PO QAM 05/11/18 12/31/18 History atorvastatin 40 mg PO HS 05/11/18 12/31/18 History ergocalciferol (vitamin D2) 50,000 unit PO WK 05/11/18 12/31/18 History [Vitamin D2] methimazole 5 mg PO QAM 05/11/18 12/31/18 History quetiapine 50 mg PO HS 05/11/18 12/31/18 History sertraline 50 mg PO QAM 05/11/18 12/31/18 History bumetanide 1 mg PO BID17 12/14/18 12/31/18 History calcium citrate [Calcitrate] 200 mg PO BID 12/14/18 12/31/18 History docusate sodium [Colace] 100 mg PO BID 12/14/18 12/31/18 History pantoprazole [Protonix] 40 mg PO 3XWK 12/14/18 12/31/18 History carvedilol 3.125 mg PO BID 30 Days #60 tab 12/21/18 12/31/18 Rx potassium chloride [Klor-Con M10] 10 meq PO BID 30 Days #60 tab 12/21/18 12/31/18 Rx tramadol 50 mg PO Q6H PRN 30 Days #60 tab 12/21/18 12/31/18 Rx diclofenac sodium [Voltaren] 4 g TOPICAL TID 12/31/18 12/31/18 History lisinopril 5 mg PO QAM 12/31/18 12/31/18 History Past Med/Surg History Medical History Cholelithiasis 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 (Chronic) Hyperthyroidism (Chronic) Lymphoma (Chronic) HTN (hypertension) (Chronic) CHF (congestive heart failure) (Chronic) EF 25-30% (May 14) Hypertension (Chronic) GERD (gastroesophageal reflux disease) (Chronic) Chronic obstructive pulmonary disease (Chronic) Depression (Chronic) Atrial fibrillation (Chronic) Cancer lYMPHOMA Congestive heart failure Stroke Surgical History History of cardiac cath Family History Unknown Myocardial infarction Social History Preferred Language: Welsh Communication Ability: Effective Visual Impairment: Partially Limited Dial Printer Required: No Beliefs That Will Affect Care: None marital status: / Current Living Situation: Personal Care Facility Current Living Situation Comment: lives at [facility] Feels Safe at Home: Yes Safety Concerns: Feels Safe At This Time Smoking Status: Former smoker Tobacco Type: cigarettes Do You Dip or Chew Tobacco: No Smoking End Date: 1942 Second Hand Exposure: No Tobacco Cessation Education Requested by Patient: No Hx Alcohol Use: No Hx Substance Use: No Review of Systems Review of Systems: Gen: Reports fevers ENT: Denies congestion, throat pain, hearing loss Eyes: Denies acute visual changes CV: Denies CP, palpitations Pulmonary: + productive cough 3-4 days GI: Initial report of abdominal pain, nausea - denied on admission : Chronic scrotal edema - states this is causing some dysuria Neuro: Denies acute or unilateral weakness, acute gait impairment, headache or acute visual changes Musculoskeletal: Denies joint pain, inflammation Endocrine: Denies polydipsia, polyuria Skin: Denies acute rashes or ulcers Physical Exam Physical Exam: General: Pleasant, elderly M, AAO x 2 - no distress ENT: No erythema or exudates, no thrush Eyes: ADALGISA, EOMI Head and neck: Normocephalic, atraumatic, No JVD, neck is supple. Chest/heart: Nontender, S1,2, RRR, no murmurs, no gallops Lungs: CTAB, no wheezing or crackles Abdomen: Nontender, nondistended, BS+ Neuro: AAO x 3, speech is clear, no unilateral weakness or loss of sensation, coordination intact Musculoskeletal: No joint inflammation, muscle tenderness, FROM : Scrotal edema Skin: No acute rashes or ulcers Extremities: No clubbing, cyanosis, edema Results & Data Vital Signs (Past 12 Hours) Vital Signs Temp Pulse Pulse Resp BP BP Pulse Ox 12/31/18 15:55 78 18 111/56 L 94 12/31/18 14:13 88 L 12/31/18 14:00 78 26 H 118/76 95 12/31/18 12:52 86 16 118/66 94 12/31/18 11:46 84 93 12/31/18 10:51 98.6 F 89 18 107/[address] abdomen: 1. No change in the cholelithiasis and mildly distended gallbladder. Questionable punctate nonobstructing stone within the distal common bile duct. No bile duct dilatation. Follow-up ultrasound recommended for further evaluation. 2. Increase in size in the 6.5 x 4.3 cm juxtarenal abdominal aortic aneurysm. No evidence for retroperitoneal hematoma. 3. No bowel wall thickening or obstruction. 4. Colonic diverticulosis. No evidence for diverticulitis. 5. Patchy airspace opacities within the base of the left lower lobe. This may represent a pneumonia. 6. Trace bilateral pleural effusions. 7. Moderate hiatus hernia, unchanged. 8. Normal caliber appendix which extends into the small right inguinal hernia. No evidence for acute appendicitis. PG Care Time/CCT Total # of Minutes Spent Total Time Spent with Patient: Total time spent is greater than 50% in coordination of care (as documented) at patient's floor/unit and/or counseling patient: (1) Pneumonia Laterality: left Lung location: lower lobe of lung Pneumonia type: due to unspecified organism Qualified Code(s): J18.1 - Lobar pneumonia, unspecified organism
[2018-12-31] MEDS ORDERED: ONDANSETRON INJ 2 MG/ML 2 ML VIAL IV PRN (17:11)
[2018-12-31] MEDS ORDERED: LEVALBUTEROL HCL 1.25 MG/3 ML NEB NEB PRN (17:11)
[2018-12-31] MEDS ORDERED: ALUMINUM/MAGNESIUM SUSP 30 ML UDC PO PRN (17:11)
[2018-12-31] MEDS: ALBUT/IPRATROP 3MG/0.5MG NEB 3 ML VIAL NEB SCH (19:01)
[2018-12-31] MEDS ORDERED: LEVOFLOXACIN CONSULT ACTIVE PRN (20:03)
[2018-12-31] MEDS: BUMETANIDE 1 MG TAB PO SCH (20:11)
[2018-12-31] MEDS: DOCUSATE SODIUM 100 MG CAP PO SCH (20:49)
[2018-12-31] MEDS: CALCIUM CITRATE 950 MG TAB PO SCH (20:49)
[2018-12-31] MEDS: ATORVASTATIN 40 MG TAB PO SCH (20:50)
[2018-12-31] MEDS: CARVEDILOL 3.125 MG TAB PO SCH (20:50)
[2018-12-31] MEDS: QUETIAPINE FUMARATE 25 MG TABLET PO SCH (20:53)
[2018-12-31] MEDS: POTASSIUM CHLORIDE 10 MEQ TABCR PO SCH (20:53)
[2018-12-31] MEDS: TRAMADOL HCL 50 MG TABLET PO PRN (20:55)
[2019-01-01] MEDS: TRAMADOL HCL 50 MG TABLET PO PRN ×3 (03:55→22:19)
[2019-01-01] MEDS: POLYETHYLENE (MIRALAX) 17 GM PACK PO PRN (03:56)
[2019-01-01 06:21] LABS: Basophils # (auto) 0.01 K/uL (0-0.2); Basophils % (auto) 0.1 %; Eosinophils # (auto) 0.13 K/uL (0-0.5); Eosinophils % (auto) 1.2 %; Hematocrit (blood only) 37.7 % (42-52); Hemoglobin 12.3 g/dL (14.0-18.0); Immature Granulocytes # (auto) 0.05 K/uL (0.00-0.02); Immature Granulocytes % (auto) 0.5 %; Lymphocytes # (auto) 1.19 K/uL (1.2-3.4); Lymphocytes % (auto) 10.8 %; Mean Corpuscular Hgb Conc 32.6 g/dL (32-36); Mean Corpuscular Volume 88.7 fL (80-100); Mean Platelet Volume 11.1 fL (7.4-10.4); Monocytes # (auto) 1.34 K/uL (0.11-0.59); Monocytes % (auto) 12.2 %; Neutrophils # (auto) 8.28 K/uL (1.4-6.5); Neutrophils % (auto) 75.2 %; Platelet Count 182 K/uL (130-400); RDW Coefficient of Variation 15.9 % (11.5-14.5); RDW Standard Deviation 51.4 fL (36.4-46.3); Red Blood Count 4.25 M/uL (4.7-6.1)
[2019-01-01 06:54] LABS: BUN Creatinine Ratio 21.6 (10-20); Calcium 8.3 mg/dl (8.5-10.1); Est GFR (African American) 49.8; Est GFR (Non-African American) 42.9; Magnesium 2.3 mg/dl (1.8-2.4); Potassium 4.2 mmol/L (3.5-5.1)
[2019-01-01] MEDS: ALBUT/IPRATROP 3MG/0.5MG NEB 3 ML VIAL NEB SCH ×4 (07:07→18:59)
[2019-01-01] MEDS ORDERED: VANCOMYCIN CONSULT ACTIVE PRN (08:40)
[2019-01-01] MEDS ORDERED: CEFEPIME 2,000 MG in SYRINGE 7.5 ML IV SCH (09:00)
[2019-01-01] MEDS ORDERED: VANCOMYCIN HCL 2,000 MG in SODIUM CHLORIDE 0.9% 500 ML IV SCH (09:00)
[2019-01-01] MEDS: ASPIRIN 81 MG CHEW PO SCH (09:27)
[2019-01-01] MEDS: CARVEDILOL 3.125 MG TAB PO SCH ×2 (09:27→20:40)
[2019-01-01] MEDS: methIMAzole 5 MG TABLET PO SCH (09:27)
[2019-01-01] MEDS: BUMETANIDE 1 MG TAB PO SCH ×2 (09:28→16:19)
[2019-01-01] MEDS: RIVAROXABAN 15 MG TAB PO SCH (09:28)
[2019-01-01] MEDS: DOCUSATE SODIUM 100 MG CAP PO SCH ×2 (09:28→20:40)
[2019-01-01] MEDS: LISINOPRIL 5 MG TAB PO SCH (09:28)
[2019-01-01] MEDS: POTASSIUM CHLORIDE 10 MEQ TABCR PO SCH (09:28)
[2019-01-01] MEDS: MAGNESIUM HYDROXIDE SUSP 30 ML UDC PO PRN (09:28)
[2019-01-01] MEDS: CALCIUM CITRATE 950 MG TAB PO SCH ×2 (09:28→20:40)
[2019-01-01] MEDS: SERTRALINE HCL 50 MG TABLET PO SCH (09:29)
--- NOTE | 2019-01-01 10:52 | Ultrasound Report ---
US gallbladder HISTORY: 88 years-old Male cholelithiasis acute right upper quadrant abdominal pain COMPARISON: CT abdomen and pelvis 12/31/2018 TECHNIQUE: Multiple real-time sonographic images of the abdominal right upper quadrant were obtained assessing grayscale appearance and color flow FINDINGS: Limited visualization of the pancreas without focal abnormality identified. No pancreatic ductal dila tion. Septated cyst of the right hepatic lobe, 1.7 cm. No intrahepatic biliary ductal dilation or will dence of cirrhosis. Mild gallbladder distention, 10 mm. Gallbladder wall is mildly thickened, 4 mm. S hadowing cholelithiasis with mild gallbladder sludge. Sonographic Valencia sign not reported. No perich olecystic fluid. Common bile duct is normal for patient age, 7 mm. No lesions or calculi seen within the common bile duct. Imaged right kidney is unremarkable without hydronephrosis. 2.9 cm complex cystic-appearing lesion no dev about the interpolar right kidney with slightly increased through transmission. IMPRESSION: 1. Cholelithiasis with gallbladder distention and mild gallbladder wall thickening is noted without p ericholecystic fluid. Findings are equivocal for acute cholecystitis. Correlate with clinical exam an d laboratory analysis. A follow-up nuclear medicine hepatobiliary scan may also be considered. 2. No biliary ductal dilation. 3. Complex cystic lesion of the interpolar right kidney, 2.9 cm. The above report was generated using voice recognition software. It may contain grammatical, syntax o r spelling errors. Electronically signed by: Troy Calzada M.D. 01/01/2019 10:51 AM
[2019-01-01] MEDS ORDERED: PIPERACILL/TAZOBAC CONSULT ACTIVE PRN (14:33)
[2019-01-01] MEDS ORDERED: PIPERACILLIN/TAZOBACTAM 3.375 GM in DEXTROSE 5% 100 ML IV ONE (14:45)
--- NOTE | 2019-01-01 14:59 | Hospitalist Progress Note ---
Date of Service January 01, 2019 Assessment & Plan (1) Pneumonia: Pt is an 88 M Hx resolved chronic systolic CHF, severe pulmonary hypertension, HTN, HLD, Chronic AF on Xarelto, hyperthyroidism, AAA, CKD III, COPD, anemia, and depression. The pt was sent in from a nursing facility with a reported complaint of lower quadrant abdominal pain and nausea. He gave the admitting physician an entirely different story as to why he had arrived, stating that he was short of breath with a productive cough and a fever. Based on the initial complaint and his AAA history, a CT abdomen was obtained on arrival to the ER. This showed progression of his aneurysm and a LLL infiltrate. No additional abnormalities were noted in the abdomen. He was requiring 2L 02 to maintain an adequate saturation at the time of admission. Initial labs are notable for leukocytosis and mild SHAY. Pneumonia-with productive sputum, cough, left lower lobe patchy infiltrate seen on CT of the abdomen/pelvis. He has been hospitalized recently on several occasions. We will continue coverage for gram-negative pneumonia/HCAP coverage with Zosyn (did receive Cefepime initially and one dose of Levaquin) He also received a dose of vancomycin which will now be discontinued as his MRSA swab is negative Blood cultures became positive on 01/01 for gram-positive cocci in chains which could be Streptococcus or Enterococcus which could be from Pulm or GI source Leukocytosis is improving today from 16 down to 11 -Continue Zosyn -Is now weaned off supplemental O2 -Follow chest imaging to resolution -Continue albuterol nebulizer -Continue to follow blood cultures -Follow CBC in the morning 4) Chronic AF - cont Metoprolol, Xarelto 5) HTN, HLD - cont lisinopril, atorvastatin 6) Hyperthyroidism - cont methimazole 7) Anemia - Hb is at or above baseline 8) Depression - cont sertraline, quetiapine 9) SHAY - on CKD III - IVF provided in ER - recheck BMP AM Full code - Xarelto prophylaxis Total time for this admit including review of labs, meds, imaging, records - discussion with pt and ER attending - 48 min (2) Acute abdominal pain: With right upper quadrant abdominal pain noted by history and on physical examination with tenderness in the right upper quadrant on 01/01 CT abdomen/pelvis from admission did show dilated gallbladder with cholelithiasis and possible punctate distal CBD stone that is nonobstructing Alkaline phosphatase was elevated mildly on admission but other LFTs were normal Gallbladder ultrasound obtained on 01/01 which is equivocal for acute cholecystitis but does not show any CBD dilatation Does have a leukocytosis on admission which is improving as above Blood cultures with gram-positive cocci in chains as above-could be from a GI source His AAA is enlarging and has gone from 5.7CM to 6.5CM over the past 8 months-see below, however I do not think that his ongoing right upper quadrant abdominal pain is related to his enlarging AAA -Switched antibiotics to Zosyn to provide coverage for acute cholecystitis -Check HIDA scan in the morning -Keep n.p.o. -Start gentle IV fluids cautiously given history of CHF -Pain control as needed -Hold Xarelto in case of need for surgery, okay to continue aspirin If HIDA scan is positive, would consult general surgery-he would be very high risk to have a cholecystectomy especially given his enlarging AAA. He may be best served at a tertiary care facility if he were to have surgery, however woangela d need to discuss this with both vascular surgery here as well as our general surgeon (3) Cholelithiasis: As above (4) Bacteremia: 1 out of 2 sets with gram-positive cocci in chains-could be Streptococcus or enterococcus -Continue to follow cultures -Repeat blood cultures now -Is on Zosyn which would adequately cover for these organisms -He did receive 1 dose of vancomycin, but his MRSA swab was negative and this is not likely to be MRSA given that it is GPC in chains (5) Hypoxia: Secondary to his pneumonia, now improved -Continue pulmonary toilet, nebulizers, supplemental O2 as needed to keep pulse ox greater than 90% -Treating pneumonia as above (6) 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: AAA is now enlarged to 6.5 cm from 6.2 cm in 05/2018, was 5.7 cm in 02/2018 It is juxtarenal He follows with vascular surgery at [facility], who at the last visit in May 2018 told the patient that he did not need surgery at that time especially in light of the fact that he is high risk for surgery with multiple significant comorbidities However, with enlarging AAA, I discussed the case with vascular surgeon here on the phone-he does recommend that the patient have repair of his AAA, however the timing of that would have to be delayed until after treatment for his pneumonia as well as his suspected acute cholecystitis. There is a possibility that he could have a endovascular fenestrator graft that would go into the renal arteries -Consult vascular surgery for opinion -Continue to follow for signs of rupture (7) Hypertension: Blood pressures are on the low normal side at this point which is good considering his enlarged AAA -Continue Coreg and lisinopril with hold parameters (8) GERD (gastroesophageal reflux disease): Continue PPI (9) Chronic obstructive pulmonary disease: No acute exacerbation but is with mild hypoxia likely secondary to pneumonia -Treating with bronchodilators as above -No role for steroids at this time (10) Depression: Stable -Continue sertraline, Seroquel (11) Pulmonary hypertension: Noted to be severe in the past and likely secondary to chronic lung disease -Provide supplemental O2 as needed -Watch volume status (12) History of CVA (cerebrovascular accident): Continue aspirin, statin (13) Anemia: Hemoglobin mildly low at 12, normocytic Previous iron studies from 6 months ago show anemia chronic disease -Follow CBC (14) Hyperlipidemia: -Continue statin (15) Hyperthyroidism: -continue methimazole TSH was 1.06 in 11/2018 (16) CHF (congestive heart failure): With a history of previous chronic systolic CHF with most recent echocardiogram in 11/2018 with preserved EF Known to have pulmonary hypertension as above -Will now hold Bumex as he is n.p.o. -Continue lisinopril, carvedilol -Follow daily weights, strict I's and O's (17) Hydrocele, bilateral: Chronic and stable, noted to have his penis retracted down into the scrotum which causes spray of his urine, but no symptoms of infection at this time (18) Chronic kidney disease, stage 3a: Baseline creatinine around 1.4 He had mild renal insufficiency on admission with creatinine of 1.7 likely secondary to dehydration this is now resolved -Avoid nephrotoxins -Renally dose medications when appropriate (19) DVT prophylaxis: Xarelto-however will place on hold in case of need for surgery in the near future Disposition-remain on PCU There is a possibility he might need transfer out if he does indeed have acute cholecystitis and if he is deemed too high risk to have surgery in this facility If so, his daughter request that he go to [facility] in [place] as he has [facility] for life insurance and she does not want him to go to [facility] Subjective Patient reports having right upper quadrant pain that has been ongoing for "a while" but says "I am not really good with time." He reports continued nausea, no bowel movement. He denies any mid or lower abdominal pain. He reports he continues to cough up copious amounts of green-yellow sputum. He denies lightheadedness or chest pain, denies shortness of breath. He is off oxygen now When we were discussing his AAA, he told me that he definitely would want to have it repaired and he does not care if he dies while having it repaired. He reports "I would rather on the table under anesthesia than be a ticking time bomb." I also discussed his case with his permission with his daughter on the phone at length today. She reports previously, the vascular surgeon they saw at [facility] said he did not need a repair at that time in May when it was known to only be 5.7 cm. I discussed his case with the vascular surgeon, Dr. Khan, on the phone today. He reports that he does need a repair of his AAA, however with the ongoing pneumonia and possible acute cholecystitis, he would not be a good candidate for it at this moment in time. Telemetry with atrial fibrillation and PVCs with rates in the 70s, had a 3 beat run of VT Review of Systems Review of Systems: All systems reviewed & are unremarkable except as noted in HPI & below Physical Exam Constitutional: average body habitus; no acute distress Eyes: PERRL, conjunctivae normal, anicteric sclerae ENMT: external ear and nose normal, oropharynx normal Neck: trachea midline, no thyromegaly Respiratory: normal respiratory effort; no labored breathing Auscultation: + crackles (At left base); no rhonchi and no wheezes Cardiovascular: Rate/Rhythm: regular rate and + irregularly irregular Extremities: + edema (Trace edema in the ankles and feet bilaterally) Gastrointestinal (Abdomen): Inspection/Auscultation: normal bowel sounds; abdomen not distended Percussion/Palpation: + abdomen tender (In the right upper quadrant without guarding or rebound tenderness), abdomen soft and + pulsatile mass (Mid abdomen); no guarding and abdomen not rigid Musculoskeletal: Extremities: extremities normal to inspection; no cyanosis a nd no clubbing Skin: no rashes, warm and dry Neurologic: moves all extremities and awake; no focal motor deficits Psychiatric: Orientation: alert, oriented to person, oriented to place and cooperative Genitourinary: + hydrocele (Bilateral, with penis completely retracted into the scrotum) Results & Data Vital Signs (Past 12 Hours) Vital Signs Temp Pulse Pulse Resp BP Pulse Ox 01/01/19 11:50 80 01/01/19 11:14 36.5 C 78 20 109/74 97 01/01/19 11:08 73 18 95 01/01/19 08:00 36.6 C 83 18 109/70 91 01/01/19 07:07 78 18 95 01/01/19 03:18 37.0 C 73 22 93/56 L 93 Laboratory Results 01/01/19 01/01/19 01/01/19 Range/Units 09:33 05:15 05:15 WBC 11.00 H (4.8-10.8) K/uL RBC 4.25 L (4.7-6.1) M/uL Hgb 12.3 L (14.0-18.0) g/dL Hct 37.7 L (42-52) % MCV 88.7 (80-100) fL MCH 28.9 (25-34) pg MCHC 32.6 (32-36) g/dL RDW Std Deviation 51.4 H (36.4-46.3) fL RDW Coeff of Jennifer 15.9 H (11.5-14.5) % Plt Count 182 (130-400) K/uL MPV 11.1 H (7.4-10.4) fL Immature Gran % (Auto) 0.5 % Neut % (Auto) 75.2 % Lymph % (Auto) 10.8 % [place] % (Auto) 12.2 % Eos % (Auto) 1.2 % Baso % (Auto) 0.1 % Immature Gran # (Auto) 0.05 H (0.00-0.02) K/uL Neut # (Auto) 8.28 H (1.4-6.5) K/uL Lymph # (Auto) 1.19 L (1.2-3.4) K/uL [place] # (Auto) 1.34 H (0.11-0.59) K/uL Eos # (Auto) 0.13 (0-0.5) K/uL Baso # (Auto) 0.01 (0-0.2) K/uL Sodium 136 (136-145) mmol/L Potassium 4.2 (3.5-5.1) mmol/L Chloride 103 (98-107) mmol/L Carbon Dioxide 27 (21-32) mmol/L Anion Gap 6.0 (3-11) BUN 32 H (7-18) mg/dl Creatinine 1.46 H (0.6-1.4) mg/dl Est Cr Clr Drug Dosing 41.0 ml/min Est GFR ( Amer) 49.8 Est GFR (Non-Af Amer) 42.9 BUN/Creatinine Ratio 21.6 H (10-20) Glucose 117 H (70-99) mg/dl Calcium 8.3 L (8.5-10.1) mg/dl Magnesium 2.3 (1.8-2.4) mg/dl Nasal Screen MRSA (PCR) Negative (Negative) Blood cultures 1/2 sets with gram-positive cocci in chains ECG Additional Comments: Atrial fibrillation without ischemic changes, QTC 470 PG Care Time/CCT Total # of Minutes Spent Total Time Spent with Patient: Total time spent is greater than 50% in coordination of care (as documented) at patient's floor/unit and/or counseling patient: (1) Pneumonia Laterality: left Lung location: lower lobe of lung Pneumonia type: due to unspecified organism Qualified Code(s): J18.1 - Lobar pneumonia, unspecified organism (2) CHF (congestive heart failure) Heart failure chronicity: unspecified Heart failure type: unspecified Qualified Code(s): I50.9 - Heart failure, unspecified (3) Cholelithiasis Cholelithiasis location: gallbladder Cholecystitis presence: without cholecystitis Biliary obstruction: without biliary obstruction Qualified Code(s): K80.20 - Calculus of gallbladder without cholecystitis without obstruction (4) Chronic obstructive pulmonary disease COPD type: chronic bronchitis Chronic bronchitis type: simple Qualified Code(s): J41.0 - Simple chronic bronchitis (5) Depression Depression Type: unspecified Qualified Code(s): F32.9 - Major depressive disorder, single episode, unspecified
[2019-01-01] MEDS: D5NSS + 20MEQ KCL 20 MEQ/1,000 ML BAG IV SCH (20:19)
[2019-01-01] MEDS: PIPERACILLIN/TAZOBACTAM 3.375 GM in DEXTROSE 5% 100 ML IV SCH (20:28)
[2019-01-01] MEDS: ATORVASTATIN 40 MG TAB PO SCH (20:40)
[2019-01-01] MEDS: QUETIAPINE FUMARATE 25 MG TABLET PO SCH (20:41)
--- NOTE | 2019-01-01 21:09 | Progress Note ---
Date of Service January 01, 2019 at about 2100 Received a page from the patient's nurse that the patient wishes to have his chart updated to DNR. Spoke with the patient and his family at bedside. Apparently he already has a living will and a well-established desire not to have CPR or be intubated. He is in favor of medications, including vasopressors, to keep him alive if needed. Plan: - Specifically I confirmed that the patient does not wish to have CPR in the event that his heart were to stop. - Specifically I confirmed the patient does not wish to be intubated in the case of respiratory failure. - His CODE STATUS was updated to DO NOT RESUSCITATE. Results & Data Vital Signs (Past 12 Hours) Vital Signs Temp Pulse Pulse Resp BP Pulse Ox 01/01/19 19:27 37.0 C 79 18 101/69 92 01/01/19 19:01 74 18 94 01/01/19 17:51 73 01/01/19 15:12 36.3 C L 76 18 97/69 L 95 01/01/19 15:05 70 16 92 01/01/19 11:50 80 01/01/19 11:14 36.5 C 78 20 109/74 97 01/01/19 11:08 73 18 95
[2019-01-02 04:01] LABS: Appearance Urine Clear (Clear); Bilirubin Urine Negative (Negative); Blood Urine Negative (Negative); Color Urine Yellow; Glucose Urine UA Negative (Negative); Ketones Urine Negative (Negative); Leukocyte Esterase Urine Negative (Negative); Nitrite Urine Negative (Negative); Protein Urine Negative (Negative); Specific Gravity Urine 1.021 (1.000-1.030); Urobilinogen Urine Negative (Negative)
[2019-01-02] MEDS: PIPERACILLIN/TAZOBACTAM 3.375 GM in DEXTROSE 5% 100 ML IV SCH ×3 (04:19→19:55)
[2019-01-02] MEDS ORDERED: VANCOMYCIN HCL 1,250 MG in SODIUM CHLORIDE 0.9% 250 ML IV SCH (05:00)
[2019-01-02 06:12] LABS: Basophils # (auto) 0.03 K/uL (0-0.2); Basophils % (auto) 0.3 %; Eosinophils # (auto) 0.25 K/uL (0-0.5); Eosinophils % (auto) 2.8 %; Hemoglobin 12.8 g/dL (14.0-18.0); Immature Granulocytes # (auto) 0.07 K/uL (0.00-0.02); Immature Granulocytes % (auto) 0.8 %; Lymphocytes # (auto) 1.07 K/uL (1.2-3.4); Lymphocytes % (auto) 11.9 %; Mean Corpuscular Hgb Conc 32.8 g/dL (32-36); Mean Corpuscular Volume 88.8 fL (80-100); Monocytes # (auto) 1.18 K/uL (0.11-0.59); Monocytes % (auto) 13.1 %; Neutrophils # (auto) 6.38 K/uL (1.4-6.5); Neutrophils % (auto) 71.1 %; Platelet Count 185 K/uL (130-400); RDW Coefficient of Variation 15.7 % (11.5-14.5); RDW Standard Deviation 50.5 fL (36.4-46.3); Red Blood Count 4.39 M/uL (4.7-6.1); White Blood Count 8.98 K/uL (4.8-10.8)
[2019-01-02 06:39] LABS: Albumin Level 2.6 gm/dl (3.4-5.0); BUN Creatinine Ratio 19.8 (10-20); Bilirubin Direct 0.1 mg/dl (0-0.2); Calcium 8.6 mg/dl (8.5-10.1); Creatinine Clr Calc Pharmacy 40.5 ml/min; Est GFR (Non-African American) 42.2; Magnesium 2.4 mg/dl (1.8-2.4); Potassium 4.5 mmol/L (3.5-5.1)
[2019-01-02 06:42] LABS: Bilirubin,Total 0.6 mg/dl (0.2-1); Total Protein 6.7 gm/dl (6.4-8.2)
[2019-01-02] MEDS: ALBUT/IPRATROP 3MG/0.5MG NEB 3 ML VIAL NEB SCH ×4 (06:49→18:59)
[2019-01-02] MEDS ORDERED: LEVOFLOXACIN/D5W 750 MG/150 ML BAG IV SCH (08:00)
[2019-01-02] MEDS ORDERED: SINCALIDE IV SCH (09:30)
[2019-01-02] MEDS ORDERED: SODIUM CHLORIDE 0.9% IV SCH (09:30)
--- NOTE | 2019-01-02 09:47 | Consultation ---
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 This would require complicated endovascular repair, possibly with fenestrated graft, vs open repair. Pt would be better served at a tertiary center for this d/t multiple significant comorbidites and significant risks of surgery. Pt also currently being eval for acute cholecystitis and treated for pneumonia. Recommend eval at tertiary center as outpt. Please call if needed. Discussed with Dr Soares. Will attempt to discuss with daughter, Kristi. 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 Pt poor historian, but does state that he is aware of his AAA. States had been seeing a surgeon, but unable to say where, who, or when last seen. States he wants to get it fixed. Pt unable to tell me where he lives. Pt admits R sided abd pain and nausea, is scheduled for HIDA scan today to eval for cholecystitis. Also admits chronic R hip and knee pain. Denies WATERS, fever, chills, chest pain, SOB, vomiting, rest pain, claudication, other complaints. Plain CT abd/pelvis demonstrates juxtarenal AAA of 6.5cm. This is increased in size from previous measurements in 06/14 of 6.2cm. Allergies Allergy/AdvReac Type Severity Reaction Status Date / Time Iodinated Contrast- Oral and Allergy Severe ANAPHYLAXIS Verified 12/31/18 11:30 IV Dye Sulfa (Sulfonamide Allergy Unknown UNKNOWN Verified 12/31/18 11:30 Antibiotics) Home Medications Home Medications Medication Instructions Recorded Confirmed Type Xarelto 15 mg PO QAM 05/11/18 12/31/18 History aspirin [Aspirin Childrens] 81 mg PO QAM 05/11/18 12/31/18 History atorvastatin 40 mg PO HS 05/11/18 12/31/18 History ergocalciferol (vitamin D2) 50,000 unit PO WK 05/11/18 12/31/18 History [Vitamin D2] methimazole 5 mg PO QAM 05/11/18 12/31/18 History quetiapine 50 mg PO HS 05/11/18 12/31/18 History sertraline 50 mg PO QAM 05/11/18 12/31/18 History bumetanide 1 mg PO BID17 12/14/18 12/31/18 History calcium citrate [Calcitrate] 200 mg PO BID 12/14/18 12/31/18 History docusate sodium [Colace] 100 mg PO BID 12/14/18 12/31/18 History pantoprazole [Protonix] 40 mg PO 3XWK 12/14/18 12/31/18 History carvedilol 3.125 mg PO BID 30 Days #60 tab 12/21/18 12/31/18 Rx potassium chloride [Klor-Con M10] 10 meq PO BID 30 Days #60 tab 12/21/18 12/31/18 Rx tramadol 50 mg PO Q6H PRN 30 Days #60 tab 12/21/18 12/31/18 Rx diclofenac sodium [Voltaren] 4 g TOPICAL TID 12/31/18 12/31/18 History lisinopril 5 mg PO QAM 12/31/18 12/31/18 History Patient History Medical History Cholelithiasis 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 (Chronic) Hyperthyroidism (Chronic) Lymphoma (Chronic) HTN (hypertension) (Chronic) CHF (congestive heart failure) (Chronic) EF 25-30% (May 14) Hypertension (Chronic) GERD (gastroesophageal reflux disease) (Chronic) Chronic obstructive pulmonary disease (Chronic) Depression (Chronic) Atrial fibrillation (Chronic) Cancer lYMPHOMA Congestive heart failure Stroke Surgical History History of cardiac cath Family History Unknown Myocardial infarction Social History Preferred Language: British Communication Ability: Effective Visual Impairment: Partially Limited Hvac Maintenance Technician Required: No Beliefs That Will Affect Care: None marital status: / Current Living Situation: Personal Care Facility Current Living Situation Comment: lives at [facility] Feels Safe at Home: Yes Safety Concerns: Feels Safe At This Time Smoking Status: Former smoker Tobacco Type: cigarettes Do You Dip or Chew Tobacco: No Smoking End Date: 1942 Second Hand Exposure: No Tobacco Cessation Education Requested by Patient: No Hx Alcohol Use: No Hx Substance Use: No Review of Systems Constitutional: no fever, no chills, no sweats and no malaise Eyes: no blind spots and no problem reported Ear, Nose, Mouth, Throat: no hearing loss Respiratory: no cough, no dyspnea, no dyspnea on exertion and no hemoptysis Cardiovascular: no chest pain, no palpitations, no syncope and no claudication Gastrointestinal: + abdominal pain and + nausea; no vomiting, no diarrhea/loose stools and no blood in stools Musculoskeletal: + joint pain; no back pain and no swelling Integumentary: no rash, no skin ulcer and no wounds Neurologic: no localized weakness, no paralysis, no numbness, no paresthesia, no syncope, no headache(s) and no confusion Psychiatric: as per Subjective / HPI Hematologic / Lymphatic: no easy bruising and no night sweats Physical Exam Constitutional: WD/WN, vitals as above well developed, well nourished, + thin, healthy appearing, + frail appearing, well groomed, cooperative and comfortable; not in distress and not combative Eyes: PERRL, conjunctivae normal, anicteric sclerae EOM intact bilaterally ENMT: external ear and nose normal, oropharynx normal Ears: no hearing imp airment Nose: no nasal discharge Neck: no tracheal deviation, no neck crepitus and neck nontender Respiratory: normal respiratory effort, lungs clear to auscultation able to speak in complete sentences; does not use accessory muscles, no cough and no audible wheezes Auscultation: + diminished lung sounds and + crackles Cardiovascular: Rate/Rhythm: + irregularly irregular Heart Sounds: no gallop and no murmur Vessels: femoral pulses present, posterior tibial pulses present (+1 BLE), dorsalis pedis pulses present (nonpalpable), brachial pulses present and radial pulses present; no carotid bruit, no femoral bruit and + abnormal peripheral pulses Extremities: normal capillary refill; no pedal edema and no edema Chest (Breasts): Chest: normal inspection of chest Gastrointestinal (Abdomen): Inspection/Auscultation: abdomen normal to inspection and normal bowel sounds; abdomen not distended and no abdominal edema Percussion/Palpation: + abdomen tender (RUQ, RLQ), abdomen soft and + abdominal aortic enlargement; no guarding and abdomen not rigid Musculoskeletal: no cyanosis or clubbing, extremities motor strength 5/5 Head/Neck/Chest: normocephalic, head atraumatic and neck supple Extremities: extremities normal to inspection and strength 5/5 throughout; full ROM of extremities, no chronic stasis changes and no clubbing Skin: no rashes, warm and dry normal turgor; no rashes, no lesions, no ulcers, no induration, no erythema, no eschar, no excoriations, no mottling and no pallor Neurologic: moves all extremities, awake and + confused (mildly); no focal motor deficits Speech / Cognition: no expressive aphasia and no receptive aphasia Motor/Sensory: no tremor, no pronator drift and no sensory deficit Cranial Nerves: EOM intact bilaterally, normal facial strength and tongue midline Psychiatric: Orientation: alert, oriented to person and cooperative; + not oriented to place and + not oriented to time Apperance: appropriately dressed, appropriately groomed and appeared stated age Affect: euthymic affect and + anxious affect Thought Process: goal directed thought process, linear/logical thought process and clear/coherent thought process Cognition: attention grossly intact and language grossly intact; + recent memory not intact and + remote memory not intact Estimated Intelligence: average estimated intelligence Results & Data Vital Signs (Past 12 Hours) Vital Signs Temp Pulse Pulse Resp BP Pulse Ox 01/02/19 07:23 36.7 C 74 18 111/71 96 01/02/19 06:52 74 18 93 01/02/19 03:41 37.0 C 73 19 102/64 96 01/01/19 23:25 36.7 C 77 18 110/73 93 01/01/19 22:20 90
[2019-01-02] MEDS: D5NSS + 20MEQ KCL 20 MEQ/1,000 ML BAG IV SCH (11:50)
[2019-01-02] MEDS: DOCUSATE SODIUM 100 MG CAP PO SCH ×2 (11:51→19:51)
[2019-01-02] MEDS: CARVEDILOL 3.125 MG TAB PO SCH ×2 (11:51→19:52)
[2019-01-02] MEDS: ASPIRIN 81 MG CHEW PO SCH (11:52)
[2019-01-02] MEDS: CALCIUM CITRATE 950 MG TAB PO SCH ×2 (11:52→19:52)
[2019-01-02] MEDS: PANTOprazole 40 MG TAB PO SCH (11:52)
[2019-01-02] MEDS: SERTRALINE HCL 50 MG TABLET PO SCH (11:53)
[2019-01-02] MEDS: LISINOPRIL 5 MG TAB PO SCH (11:53)
[2019-01-02] MEDS: methIMAzole 5 MG TABLET PO SCH (11:53)
[2019-01-02] MEDS: TRAMADOL HCL 50 MG TABLET PO PRN (11:58)
[2019-01-02] MEDS: MAGNESIUM HYDROXIDE SUSP 30 ML UDC PO PRN (11:58)
[2019-01-02] MEDS: POLYETHYLENE (MIRALAX) 17 GM PACK PO PRN (11:59)
--- NOTE | 2019-01-02 12:01 | Nuclear Medicine Report ---
NM hepatobiliary EF CLINICAL HISTORY: 88 years-old Male presenting with r/o acute cholecystitis. TECHNIQUE: Dynamic anterior imaging of the gallbladder was first acquired immediately following the i ntravenous administration of 5.4 mCi Tc-99m Choletec. Dynamic delayed imaging of the gallbladder coul d not be performed due to patient intolerance. Therefore, limited static imaging was initiated 65 min utes after Choletec administration over a span of 40-60 minutes. The gallbladder ejection fraction wa s calculated from delayed imaging. PHARMACOLOGY: Medication: Sincalide 1.67 mcg administered IV 5 minutes prior to the start of delayed imaging as a 3 0 minute infusion. Oral meal: None. COMPARISON: None. FINDINGS: Uniform hepatic tracer accumulation is shown. Prompt intrahepatic biliary excretion is seen. The gall bladder and common bile duct are visualized by 16-20 minutes. Expected radiotracer activity within sm all bowel indicates an unobstructed common duct. The gallbladder subsequently demonstrates borderline abnormal contraction with delayed decreased radi otracer activity. Gallbladder ejection fraction (GBEF) measures 39%. Reference range (with Sincalide use): Unequivocally normal: Greater than 50%. Unequivocally abnormal: Less than 35%. Notably, the lower limit of normal GBEF in the setting of a lactose-free fatty-meal food supplement ( Boost shake) has been reported as > or = 33%. Jony WATERS, Bobby DA, Ida LR, et al. Cholecystokinin cholescintigraphy: methodology and normal ok ues using a lactose-free fatty-meal food supplement. J Nucl Med. 2003;44:1164-0785. IMPRESSION: 1. No evidence of acute cholecystitis. 2. Borderline abnormally low gallbladder ejection fraction, which raises concern for chronic cholecy stitis. Electronically signed by: Klever Ramos M.D. 01/02/2019 12:00 PM
--- NOTE | 2019-01-02 16:15 | Hospitalist Progress Note ---
Date of Service January 02, 2019 Assessment & Plan (1) Pneumonia: Pneumonia-with productive sputum, cough, left lower lobe patchy infiltrate seen on CT of the abdomen/pelvis. He has been hospitalized recently on several occasions. treat for HCAP, responding well to Zosyn complete 7 days of treatment WBC normal at 8k, afebrile, no oxygen required no respiratory distress blood culture positive for Group A strep, not strep pneumo or enterococcus (2) Acute abdominal pain: With right upper quadrant abdominal pain noted by history and on physical examination with tenderness in the right upper quadrant on 01/01 CT abdomen/pelvis from admission did show dilated gallbladder with cholelithiasis and possible punctate distal CBD stone that is nonobstructing - reviewing prior records he has had gall stones since at least March 2018 - RUQ US showed gall stones and dilated gall bladder - HIDA scan on 01/02 shows no signs of acute cholecystitis, GB filled in <20 minutes, no signs of CBD obstruction however, there was a borderline low EF at 39% this suggests possible chronic cholecystitis less pain today, no fever, WBC is 8k and vitals stable certainly not emergent surgery d/w Dr. Hemphill, he would recommend having surgery at tertiary care due to risk of AAA rupture in perioperative period repeat labs in the AM, will d/w [facility] regarding transfer for surgery if that is what is recommended (3) Cholelithiasis: As above no evidence of acute cholecystitis does have possible chronic cholecystitis (4) Atrial fibrillation: chronic, continue on Coreg, HR well controlled continue Xarelto for time being hold tomorrow AM as we will contact [facility] for recommendations on needing surgery (5) Bacteremia: 1 out of 2 sets with gram-positive cocci in chains- final result is Group A strep, not strep pneumo or enterococcus continue on Zosyn repeat cultures drawn 01/01 and are pending (6) Hypoxia: Secondary to his pneumonia resolved, breathing well on room air (7) 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, who at the last visit in May 2018 told the patient that he did not need surgery at that time especially in light of the fact that he is high risk for surgery with multiple significant comorbidities d/w vascular surgery today, no need for transfer to tertiary care as repair is not emergent recommend referral to vascular surgery at [place] if he would need surgery on gall bladder then it would need to done at tertiary care as he would be at risk for rupture (8) Hypertension: Blood pressures are on the low normal side at 109 systolic keep low given his AAA -Continue Coreg and lisinopril with hold parameters (9) GERD (gastroesophageal reflux disease): Continue PPI (10) Chronic obstructive pulmonary disease: No acute exacerbation but is with mild hypoxia likely secondary to pneumonia -Treating with bronchodilators as above -No role for steroids at this time (11) Depression: Stable -Continue sertraline, Seroquel (12) Pulmonary hypertension: Noted to be severe in the past and likely secondary to chronic lung disease -Provide supplemental O2 as needed -Watch volume status (13) History of CVA (cerebrovascular accident): Continue aspirin, statin (14) Anemia: Hemoglobin mildly low at 12.8, normocytic Previous iron studies from 6 months ago show anemia chronic disease (15) Hyperlipidemia: -Continue statin (16) Hyperthyroidism: -continue methimazole TSH was 1.06 in 11/2018 (17) CHF (congestive heart failure): With a history of previous chronic systolic CHF with most recent echocardiogram in 11/2018 with preserved EF Known to have pulmonary hypertension as above - likely resume Bumex tomorrow -Continue lisinopril, carvedilol -Follow daily weights, strict I's and O's (18) Hydrocele, bilateral: Chronic and stable, noted to have his penis retracted down into the scrotum which causes spray of his urine, but no symptoms of infection at this time (19) Chronic kidney disease, stage 3a: Baseline creatinine around 1.4 stable today at 1.48 He had mild renal insufficiency on admission with creatinine of 1.7 likely secondary to dehydration this is now resolved -Avoid nephrotoxins -Renally dose medications when appropriate (20) DVT prophylaxis: Xarelto-however will place on hold in case of need for surgery in the near future Disposition-remain on PCU will observe overnight as he is clinically improving, WBC normal, no fever, less pain, eating well breathing well on room air would not want to transfer to [facility] unless he would need surgery, will call them tomorrow to discuss case in detail does NOT need transferred for AAA as it is not emergent Subjective patient feeling better today, states that he has less abdominal pain, he is hungry had HIDA scan this morning, no signs of acute choleyctitis however, EF is borderline low, could indicate chronic cholecystitis reviewed imaging, has had gall stones dating back to March [address] 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, due to AAA he would recommend any type of surgery be done at tertiary care risk of AAA rupture would be 17% in the perioperative period discussed with vascular surgery, given size of AAA he is at a 5-10% risk of rupture however, due to complications of location he would need fenestrated graft complicated procedure with 5-10% risk of serious complication vascular surgery recommends seeing tertiary care vascular surgery as outpatient as this is not emergent procedure discussed this with patient who was somewhat confused, said "whatever you think doctor" discussed with patient's daughter Kristi, said she would want him to go to [facility] if surgery needed she stated that she would not want him to go there unnecessarily, if he does not actually need surgery clinically he is doing well, breathing stable, no fever, vitals stable, no signs of sepsis has a little bit of pain in RUQ WBC down to 8k, AST and Alk phos minimally elevated, bili and ALT normal, Cr at baseline blood cultures grew Alpha strep, not S pneumo or enterococcus, only one of two cultures Review of Systems Review of Systems: All systems reviewed & are unremarkable except as noted in HPI & below Constitutional: no fever, no chills, no sweats, no fatigue, no weakness and no anorexia Respiratory: + dyspnea on exertion; no cough and no dyspnea Cardiovascular: no chest pain, no palpitations, no syncope and no edema Gastrointestinal: + abdominal pain (RUQ and RLQ); no nausea, no vomiting, no constipation (moved bowels today) and no diarrhea/loose stools Genitourinary: no dysuria Musculoskeletal: + muscle weakness (generalized) Physical Exam Constitutional: WD/WN, vitals as above Eyes: PERRL, conjunctivae normal, anicteric sclerae ENMT: external ear and nose normal, oropharynx normal Neck: trachea midline, no thyromegaly Respiratory: normal respiratory effort, lungs clear to auscultation Cardiovascular: Rate/Rhythm: regular rate and + irregularly irregular Heart Sounds: normal S1 and normal S2; no murmur Vessels: no JVD Extremities: normal capillary refill; no edema Gastrointestinal (Abdomen): Inspection/Auscultation: abdomen normal to ins pection and normal bowel sounds; abdomen not distended Percussion/Palpation: + abdomen tender (RUQ) and abdomen soft; no guarding and abdomen not rigid Musculoskeletal: no cyanosis or clubbing, extremities motor strength 5/5 Skin: no rashes, warm and dry Neurologic: patellar DTR's 2+ bilat, sensation intact and PERRL, EOMI, accommodation nl, no face palsy, no dysarthria Psychiatric: A+Ox3, euthymic affect Lymphatic: no cervical or axillary lymphadenopathy Results & Data Vital Signs (Past 12 Hours) Vital Signs Temp Pulse Pulse Resp BP Pulse Ox 01/02/19 16:00 70 01/02/19 15:08 75 18 89 L 01/02/19 11:47 36.6 C 85 17 117/68 95 01/02/19 09:00 74 01/02/19 07:23 36.7 C 74 18 111/71 96 01/02/19 06:52 74 18 93 Laboratory Results Laboratory Results - last 24 hr 01/02/19 01/02/19 01/02/19 03:45 05:29 05:29 WBC 8.98 RBC 4.39 L Hgb 12.8 L Hct 39.0 L MCV 88.8 MCH 29.2 MCHC 32.8 RDW Std Deviation 50.5 H RDW Coeff of Jennifer 15.7 H Plt Count 185 MPV 11.0 H Immature Gran % (Auto) 0.8 Neut % (Auto) 71.1 Lymph % (Auto) 11.9 [place] % (Auto) 13.1 Eos % (Auto) 2.8 Baso % (Auto) 0.3 Immature Gran # (Auto) 0.07 H Neut # (Auto) 6.38 Lymph # (Auto) 1.07 L [place] # (Auto) 1.18 H Eos # (Auto) 0.25 Baso # (Auto) 0.03 Sodium 137 Potassium 4.5 Chloride 102 Carbon Dioxide 31 Anion Gap 4.0 BUN 29 H Creatinine 1.48 H Est Cr Clr Drug Dosing 40.5 Est GFR ( Amer) 49.0 Est GFR (Non-Af Amer) 42.2 BUN/Creatinine Ratio 19.8 Glucose 123 H Calcium 8.6 Magnesium 2.4 Total Bilirubin 0.6 Direct Bilirubin 0.1 AST 56 H ALT 50 Alkaline Phosphatase 125 H Total Protein 6.7 Albumin 2.6 L Urine Color Yellow Urine Appearance Clear Urine pH 5.0 Ur Specific [place] 1.021 Urine Protein Negative Urine Glucose (UA) Negative Urine Ketones Negative Urine Blood Negative Urine Nitrite Negative Urine Bilirubin Negative Urine Urobilinogen Negative Ur Leukocyte Esterase Negative Diagnostic Findings HIDA SCAN IMPRESSION: 1. No evidence of acute cholecystitis. 2. Borderline abnormally low gallbladder ejection fraction, which raises concern for chronic cholecystitis. Medications Administered Current Inpatient Medications Acetaminophen (Tylenol) 650 mg PO Q4H PRN PRN Reason: Pain or Fever Stop: 01/30/19 17:10 Al Hydrox/Mg Hydrox/Simethicone (Maalox) 15 ml PO Q4H PRN PRN Reason: Dyspepsia Stop: 01/30/19 17:10 Albuterol (Duoneb) 3 ml NEB QIDR [facility] Stop: 01/30/19 19:59 Last Admin: 01/02/19 15:04 Dose: 3 ml Documented by: Aspirin (Aspirin Chew) 81 mg PO QAM [facility] Stop: 01/31/19 08:59 Last Admin: 01/02/19 11:52 Dose: 81 mg Documented by: Atorvastatin Calcium (Lipitor) 40 mg PO HS [facility] Stop: 01/30/19 20:59 Last Admin: 01/01/19 20:40 Dose: 40 mg Documented by: Bumetanide (Bumex) 1 mg PO BID17 [facility] Stop: 01/30/19 17:10 Last Admin: 01/01/19 16:19 Dose: 1 mg Documented by: Calcium Citrate (Citracal) 950 mg PO BID [facility] Stop: 01/30/19 20:59 Last Admin: 01/02/19 11:52 Dose: 950 mg Documented by: Carvedilol (Coreg) 3.125 mg PO BID [facility] Stop: 01/30/19 20:59 Last Admin: 01/02/19 11:51 Dose: 3.125 mg Documented by: Docusate Sodium (Colace) 100 mg PO BID [facility] Stop: 01/30/19 20:59 Last Admin: 01/02/19 11:51 Dose: 100 mg Documented by: Ergocalciferol (Vitamin D2) 50,000 units PO We@0900 [facility] Stop: 02/03/19 08:59 Piperacillin Sod/Tazobactam (Sod 3.375 gm/ Dextrose) 115 mls @ 28.75 mls/hr IV Q8H [facility]; Protocol Stop: 01/11/19 19:59 Last Infusion: 01/02/19 16:01 Dose: Infused Documented by: Potassium Chloride/Dextrose/Sod Cl (D5nss + 20meq Kcl) 20 meq in 1,000 mls @ 70 mls/hr IV .[id number] [facility] Stop: 01/31/19 19:29 Last Admin: 01/02/19 11:50 Dose: 70 mls/hr Documented by: Sincalide 1.67 mcg/ Sodium (Chloride) 101.67 mls @ 200 mls/hr IV TODAY@0930 [facility] Stop: 01/02/19 18:00 Last Admin: 01/02/19 11:54 Dose: Not Given Documented by: Levalbuterol HCl (Xopenex 1.25mg/3ml Neb) 1.25 mg NEB Q4H PRN PRN Reason: shortness of breath Stop: 01/30/19 17:10 Lisinopril (Zestril) 5 mg PO [facility] Stop: 01/31/19 08:59 Last Admin: 01/02/19 11:53 Dose: 5 mg Documented by: Magnesium Hydroxide (Milk Of Magnesia) 30 ml PO Q12H PRN PRN Reason: Constipation Stop: 01/30/19 17:10 Last Admin: 01/02/19 11:58 Dose: 30 ml Documented by: Methimazole (Tapazole) 5 mg PO QAM [facility] Stop: 01/31/19 08:59 Last Admin: 01/02/19 11:53 Dose: 5 mg Documented by: Miscellaneous Information (Consult) 1 ea N/A UD PRN PRN Reason: Consult Stop: 01/31/19 14:32 Ondansetron HCl (Zofran) 4 mg IV Q6H PRN PRN Reason: Nausea Stop: 01/30/19 17:10 Last Admin: 01/02/19 09:26 Dose: 4 mg Documented by: Pantoprazole Sodium (Protonix) 40 mg PO MoWeFr@0900 [facility] Stop: 02/01/19 08:59 Last Admin: 01/02/19 11:52 Dose: 40 mg Documented by: Polyethylene Glycol (Miralax Powder Packet) 17 gm PO DAILY PRN PRN Reason: Constipation Stop: 01/30/19 17:10 Last Admin: 01/02/19 11:59 Dose: 17 gm Documented by: Potassium Chloride (Klor-Con M10) 10 meq PO BID [facility] Stop: 01/30/19 20:59 Last Admin: 01/01/19 09:28 Dose: 10 meq Documented by: Quetiapine Fumarate (Seroquel) 50 mg PO HS [facility] Stop: 01/30/19 20:59 Last Admin: 01/01/19 20:41 Dose: 50 mg Documented by: Rivaroxaban (Xarelto) 15 mg PO QAM [facility] Stop: 01/31/19 08:59 Last Admin: 01/01/19 09:28 Dose: 15 mg Documented by: Sertraline HCl (Zoloft) 50 mg PO QAM [facility] Stop: 01/31/19 08:59 Last Admin: 01/02/19 11:53 Dose: 50 mg Documented by: Tramadol HCl (Ultram) 50 mg PO Q6H PRN PRN Reason: pain Stop: 01/30/19 17:10 Last Admin: 01/02/19 11:58 Dose: 50 mg Documented by: PG Care Time/CCT Total # of Minutes Spent Total Time Spent with Patient: Total time spent is greater than 50% in coordination of care (as documented) at patient's floor/unit and/or counseling patient: (1) Pneumonia Laterality: left Lung location: lower lobe of lung Pneumonia type: due to unspecified organism Qualified Code(s): J18.1 - Lobar pneumonia, unspecified organism (2) Cholelithiasis Cholelithiasis location: gallbladder Cholecystitis presence: without cholecystitis Biliary obstruction: without biliary obstruction Qualified Code(s): K80.20 - Calculus of gallbladder without cholecystitis without obstruction (3) Chronic obstructive pulmonary disease COPD type: chronic bronchitis Chronic bronchitis type: simple Qualified Code(s): J41.0 - Simple chronic bronchitis (4) Depression Depression Type: unspecified Qualified Code(s): F32.9 - Major depressive disorder, single episode, unspecified (5) CHF (congestive heart failure) Heart failure chronicity: unspecified Heart failure type: unspecified Qualified Code(s): I50.9 - Heart failure, unspecified (6) Atrial fibrillation Atrial fibrillation type: chronic Qualified Code(s): I48.2 - Chronic atrial fibrillation
[2019-01-02] MEDS: ATORVASTATIN 40 MG TAB PO SCH (19:52)
[2019-01-02] MEDS: QUETIAPINE FUMARATE 25 MG TABLET PO SCH (19:53)
[2019-01-03] MEDS: PIPERACILLIN/TAZOBACTAM 3.375 GM in DEXTROSE 5% 100 ML IV SCH ×3 (04:21→21:05)
[2019-01-03 06:00] LABS: Basophils # (auto) 0.01 K/uL (0-0.2); Basophils % (auto) 0.1 %; Eosinophils # (auto) 0.27 K/uL (0-0.5); Eosinophils % (auto) 3.5 %; Hematocrit (blood only) 39.5 % (42-52); Hemoglobin 12.8 g/dL (14.0-18.0); Immature Granulocytes # (auto) 0.06 K/uL (0.00-0.02); Immature Granulocytes % (auto) 0.8 %; Lymphocytes # (auto) 0.95 K/uL (1.2-3.4); Lymphocytes % (auto) 12.5 %; Mean Corpuscular Hgb Conc 32.4 g/dL (32-36); Mean Corpuscular Volume 89.8 fL (80-100); Mean Platelet Volume 10.5 fL (7.4-10.4); Monocytes # (auto) 0.98 K/uL (0.11-0.59); Monocytes % (auto) 12.8 %; Neutrophils # (auto) 5.36 K/uL (1.4-6.5); Neutrophils % (auto) 70.3 %; Platelet Count 171 K/uL (130-400); RDW Coefficient of Variation 15.7 % (11.5-14.5); RDW Standard Deviation 51.7 fL (36.4-46.3); White Blood Count 7.63 K/uL (4.8-10.8)
[2019-01-03 06:31] LABS: Albumin Level 2.5 gm/dl (3.4-5.0); BUN Creatinine Ratio 17.7 (10-20); Creatinine Clr Calc Pharmacy 47.2 ml/min; Est GFR (African American) 58.9; Est GFR (Non-African American) 50.8; Potassium 4.6 mmol/L (3.5-5.1)
[2019-01-03 06:34] LABS: Albumin Globulin Ratio 0.6 (0.9-2); Bilirubin,Total 0.5 mg/dl (0.2-1); Globulin 3.9 gm/dl (2.5-4.0); Total Protein 6.4 gm/dl (6.4-8.2)
[2019-01-03] MEDS: ALBUT/IPRATROP 3MG/0.5MG NEB 3 ML VIAL NEB SCH ×4 (07:28→19:34)
[2019-01-03] MEDS: TRAMADOL HCL 50 MG TABLET PO PRN ×2 (09:03→23:29)
[2019-01-03] MEDS: CARVEDILOL 3.125 MG TAB PO SCH ×2 (09:04→20:51)
[2019-01-03] MEDS: CALCIUM CITRATE 950 MG TAB PO SCH ×2 (09:04→20:51)
[2019-01-03] MEDS: ASPIRIN 81 MG CHEW PO SCH (09:05)
[2019-01-03] MEDS: SERTRALINE HCL 50 MG TABLET PO SCH (09:05)
[2019-01-03] MEDS: methIMAzole 5 MG TABLET PO SCH (09:05)
[2019-01-03] MEDS: LISINOPRIL 5 MG TAB PO SCH (09:59)
[2019-01-03] MEDS: DOCUSATE SODIUM 100 MG CAP PO SCH ×2 (10:00→20:50)
--- NOTE | 2019-01-03 14:13 | Hospitalist Progress Note ---
Date of Service January 03, 2019 Assessment & Plan (1) Pneumonia: Pneumonia-with productive sputum, cough, left lower lobe patchy infiltrate seen on CT of the abdomen/pelvis. He has been hospitalized recently on several occasions. treat for HCAP, responding well to Zosyn complete 7 days of treatment WBC normal at 7k, afebrile, no oxygen required no respiratory distress admitted 12/31 in the afternoon, today is day 3 of antibiotics (Zosyn) blood culture positive for Group A strep, not strep pneumo or enterococcus repeat blood cultures with no growth, unsure of the significance (2) Acute abdominal pain: With right upper quadrant abdominal pain noted by history and on physical examination with tenderness in the right upper quadrant on 01/01 CT abdomen/pelvis from admission did show dilated gallbladder with cholelithiasis and possible punctate distal CBD stone that is nonobstructing - reviewing prior records he has had gall stones since at least March 2018 - RUQ US showed gall stones and dilated gall bladder - HIDA scan on 01/02 shows no signs of acute cholecystitis, GB filled in <20 minutes, no signs of CBD obstruction however, there was a borderline low EF at 39% this suggests possible chronic cholecystitis no pain today, no fever, WBC is 7k and vitals stable patient eating really well d/w Dr. 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 responding well to antibiotics (4) Atrial fibrillation: chronic, continue on Coreg, HR well controlled resume Xarelto as there are no plans for surgery (5) Bacteremia: 1 out of 2 sets with gram-positive cocci in chains- final result is Group A strep, not strep pneumo or enterococcus continue on Zosyn repeat cultures drawn 01/01 and show no growth (6) Hypoxia: Secondary to his pneumonia resolved, breathing well on room air (7) 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: AAA is now enlarged to 6.5 cm from 6.2 cm in 05/2018, was 5.7 cm in 02/2018 It is juxtarenal He follows with vascular surgery at [facility], who at the last visit in May 2018 told the patient that he did not need surgery at that time especially in light of the fact that he is high risk for surgery with multiple significant comorbidities d/w vascular surgery 01/02, no need for transfer to tertiary care as repair is not emergent recommend referral to vascular surgery at [facility] as outpatient if the patient would want this long talk with patient and daughter today patient does NOT want procedure to fix AAA he understands that it is high risk for rupture, he is okay with dying in that manner he says he will be in [place] with his daughter agrees with the patient's wishes (8) Hypertension: Blood pressures are well controlled keep low given his AAA -Continue Coreg and lisinopril with hold parameters (9) GERD (gastroesophageal reflux disease): Continue PPI (10) Chronic obstructive pulmonary disease: No acute exacerbation but is with mild hypoxia likely secondary to pneumonia -Treating with bronchodilators as above -No role for steroids at this time (11) Depression: Stable -Continue sertraline, Seroquel (12) Pulmonary hypertension: Noted to be severe in the past and likely secondary to chronic lung disease -Provide supplemental O2 as needed -Watch volume status (13) History of CVA (cerebrovascular accident): Continue aspirin, statin (14) Anemia: Hemoglobin mildly low at 12.8, normocytic Previous iron studies from 6 months ago show anemia chronic disease (15) Hyperlipidemia: -Continue statin (16) Hyperthyroidism: -continue methimazole TSH was 1.06 in 11/2018 (17) CHF (congestive heart failure): With a history of previous chronic systolic CHF with most recent echocardiogram in 11/2018 with preserved EF Known to have pulmonary hypertension as above - resume Bumex -Continue lisinopril, carvedilol -Follow daily weights, strict I's and O's (18) Hydrocele, bilateral: Chronic and stable, noted to have his penis retracted down into the scrotum which causes spray of his urine, but no symptoms of infection at this time (19) Chronic kidney disease, stage 3a: Baseline creatinine around 1.4 stable today at 1.48 He had mild renal insufficiency on admission with creatinine of 1.7 likely secondary to dehydration this is now resolved -Avoid nephrotoxins -Renally dose medications when appropriate (20) DVT prophylaxis: Xarelto Disposition- transfer to medical floor consult PT/OT looking into SNF rehab in [place] Subjective patient feeling great today, asked "when can I get out of here?" eating well, no abdominal pain at all, no fever, no nausea reviewed case with general surgery over the phone, given that pain is better and no evidence for acute cholecystitis, would not touch the gall bladder at this time discussed with patient, he is okay with no surgery we talked about AAA further, he said that he does not want surgery or graft he says that he knows that it is only a matter of time until it ruptures he is okay with this outcome, he says that when he dies he gets to see his again in [facility] which makes him happy discussed plan with patient's daughter Sarah at the bedside, she is on board with his wishes discussed that the pneumonia is improving, no pain over the gall bladder plan will be to get stronger, go to SNF rehab reviewed labs, Cr stable at 1.27 and WBC is again normal at 7k patient denies chest pain, dyspnea, nausea he moved his bowels Review of Systems Review of Systems: All systems reviewed & are unremarkable except as noted in HPI & below Physical Exam Constitutional: WD/WN, vitals as above Eyes: PERRL, conjunctivae normal, anicteric sclerae ENMT: external ear and nose normal, oropharynx normal Neck: trachea midline, no thyromegaly Respiratory: normal respiratory effort, lungs clear to auscultation Cardiovascular: Rate/Rhythm: regular rate and + irregularly irregular Heart Sounds: normal S1 and normal S2; no murmur Vessels: no JVD Extremities: normal capillary refill; no edema Gastrointestinal (Abdomen): Inspection/Auscultation: abdomen normal to inspection and normal bowel sounds; abdomen not distended Percussion/Palpation: abdomen soft; abdomen nontender, no guarding and abdomen not rigid Musculoskeletal: no cyanosis or clubbing, extremities motor strength 5/5 Skin: no rashes, warm and dry Neurologic: patellar DTR's 2+ bilat, sensation intact and PERRL, EOMI, accommodation nl, no face palsy, no dysarthria Psychiatric: A+Ox3, euthymic affect Lymphatic: no cervical or axillary lymphadenopathy Results & Data Vital Signs (Past 12 Hours) Vital Signs Temp Pulse Resp BP Pulse Ox 01/03/19 11:19 36.8 C 91 H 20 118/80 96 01/03/19 11:04 86 18 92 01/03/19 07:32 36.6 C 76 18 119/77 98 01/03/19 07:28 74 18 96 01/03/19 04:34 36.7 C 72 19 107/63 94 Laboratory Results Laboratory Results - last 24 hr 01/03/19 01/03/19 01/03/19 05:35 05:35 05:35 WBC 7.63 RBC 4.40 L Hgb 12.8 L Hct 39.5 L MCV 89.8 MCH 29.1 MCHC 32.4 RDW Std Deviation 51.7 H RDW Coeff of Jennifer 15.7 H Plt Count 171 MPV 10.5 H Immature Gran % (Auto) 0.8 Neut % (Auto) 70.3 Lymph % (Auto) 12.5 [place] % (Auto) 12.8 Eos % (Auto) 3.5 Baso % (Auto) 0.1 Immature Gran # (Auto) 0.06 H Neut # (Auto) 5.36 Lymph # (Auto) 0.95 L [place] # (Auto) 0.98 H Eos # (Auto) 0.27 Baso # (Auto) 0.01 Sodium 142 Potassium 4.6 Chloride 106 Carbon Dioxide 30 Anion Gap 5.0 BUN 23 H Creatinine 1.27 Est Cr Clr Drug Dosing 47.2 Est GFR ( Amer) 58.9 Est GFR (Non-Af Amer) 50.8 BUN/Creatinine Ratio 17.7 Glucose 99 Calcium 9.0 Total Bilirubin 0.5 AST 44 H ALT 46 Alkaline Phosphatase 124 H Total Protein 6.4 Albumin 2.5 L Globulin 3.9 Albumin/Globulin Ratio 0.6 L Procalcitonin 0.05 Medications Administered Current Inpatient Medications Acetaminophen (Tylenol) 650 mg PO Q4H PRN PRN Reason: Pain or Fever Stop: 01/30/19 17:10 Al Hydrox/Mg Hydrox/Simethicone (Maalox) 15 ml PO Q4H PRN PRN Reason: Dyspepsia Stop: 01/30/19 17:10 Albuterol (Duoneb) 3 ml NEB QIDR [facility] Stop: 01/30/19 19:59 Last Admin: 01/03/19 11:04 Dose: 3 ml Documented by: Aspirin (Aspirin Chew) [facility] Stop: 01/31/19 08:59 Last Admin: 01/03/19 09:05 Dose: 81 mg Documented by: Atorvastatin Calcium (Lipitor) 40 mg PO HS [facility] Stop: 01/30/19 20:59 Last Admin: 01/02/19 19:52 Dose: 40 mg Documented by: Bumetanide (Bumex) 1 mg PO BID17 [facility] Stop: 01/30/19 17:10 Last Admin: 01/01/19 16:19 Dose: 1 mg Documented by: Calcium Citrate (Citracal) 950 mg PO BID [facility] Stop: 01/30/19 20:59 Last Admin: 01/03/19 09:04 Dose: 950 mg Documented by: Carvedilol (Coreg) 3.125 mg PO BID [facility] Stop: 01/30/19 20:59 Last Admin: 01/03/19 09:04 Dose: 3.125 mg Documented by: Docusate Sodium (Colace) 100 mg PO BID [facility] Stop: 01/30/19 20:59 Last Admin: 01/03/19 10:00 Dose: 100 mg Documented by: Ergocalciferol (Vitamin D2) 50,000 units PO We@0900 [facility] Stop: 02/03/19 08:59 Piperacillin Sod/Tazobactam (Sod 3.375 gm/ Dextrose) 115 mls @ 28.75 mls/hr IV Q8H [facility]; Protocol Stop: 01/11/19 19:59 Last Admin: 01/03/19 11:59 Dose: 28.8 mls/hr Documented by: Levalbuterol HCl (Xopenex 1.25mg/3ml Neb) 1.25 mg NEB Q4H PRN PRN Reason: shortness of breath Stop: 01/30/19 17:10 Lisinopril (Zestril) [facility] Stop: 01/31/19 08:59 Last Admin: 01/03/19 09:59 Dose: 5 mg Documented by: Magnesium Hydroxide (Milk Of Magnesia) 30 ml PO Q12H PRN PRN Reason: Constipation Stop: 01/30/19 17:10 Last Admin: 01/02/19 11:58 Dose: 30 ml Documented by: Methimazole (Tapazole) 5 mg PO QAM [facility] Stop: 01/31/19 08:59 Last Admin: 01/03/19 09:05 Dose: 5 mg Documented by: Miscellaneous Information (Consult) 1 ea N/A UD PRN PRN Reason: Consult Stop: 01/31/19 14:32 Ondansetron HCl (Zofran) 4 mg IV Q6H PRN PRN Reason: Nausea Stop: 01/30/19 17:10 Last Admin: 01/02/19 09:26 Dose: 4 mg Documented by: Pantoprazole Sodium (Protonix) 40 mg PO MoWeFr@0900 [facility] Stop: 02/01/19 08:59 Last Admin: 01/02/19 11:52 Dose: 40 mg Documented by: Polyethylene Glycol (Miralax Powder Packet) 17 gm PO DAILY PRN PRN Reason: Constipation Stop: 01/30/19 17:10 Last Admin: 01/02/19 11:59 Dose: 17 gm Documented by: Potassium Chloride (Klor-Con M10) 10 meq PO BID [facility] Stop: 01/30/19 20:59 Last Admin: 01/01/19 09:28 Dose: 10 meq Documented by: Quetiapine Fumarate (Seroquel) 50 mg PO HS [facility] Stop: 01/30/19 20:59 Last Admin: 01/02/19 19:53 Dose: 50 mg Documented by: Rivaroxaban (Xarelto) 15 mg PO QAM [facility] Stop: 01/31/19 08:59 Last Admin: 01/01/19 09:28 Dose: 15 mg Documented by: Sertraline HCl (Zoloft) 50 mg PO QAM [facility] Stop: 01/31/19 08:59 Last Admin: 01/03/19 09:05 Dose: 50 mg Documented by: Tramadol HCl (Ultram) 50 mg PO Q6H PRN PRN Reason: pain Stop: 01/30/19 17:10 Last Admin: 01/03/19 09:03 Dose: 50 mg Documented by: PG Care Time/CCT Total # of Minutes Spent Total Time Spent with Patient: Total time spent is greater than 50% in coordination of care (as documented) at patient's floor/unit and/or counseling patient: (1) Pneumonia Laterality: left Lung location: lower lobe of lung Pneumonia type: due to unspecified organism Qualified Code(s): J18.1 - Lobar pneumonia, unspecified organism (2) Cholelithiasis Cholelithiasis location: gallbladder Cholecystitis presence: without cholecystitis Biliary obstruction: without biliary obstruction Qualified Code(s): K80.20 - Calculus of gallbladder without cholecystitis without obstruction (3) Atrial fibrillation Atrial fibrillation type: chronic Qualified Code(s): I48.2 - Chronic atrial fibrillation (4) Chronic obstructive pulmonary disease COPD type: chronic bronchitis Chronic bronchitis type: simple Qualified Code(s): J41.0 - Simple chronic bronchitis (5) Depression Depression Type: unspecified Qualified Code(s): F32.9 - Major depressive disorder, single episode, unspecified (6) CHF (congestive heart failure) Heart failure chronicity: unspecified Heart failure type: unspecified Qualified Code(s): I50.9 - Heart failure, unspecified
[2019-01-03] MEDS: QUETIAPINE FUMARATE 25 MG TABLET PO SCH (20:50)
[2019-01-03] MEDS: ATORVASTATIN 40 MG TAB PO SCH (20:53)
[2019-01-03] MEDS: ACETAMINOPHEN 325 MG TAB PO PRN (23:26)
[2019-01-04] MEDS: PIPERACILLIN/TAZOBACTAM 3.375 GM in DEXTROSE 5% 100 ML IV SCH ×3 (04:14→20:21)
[2019-01-04] MEDS: ALBUT/IPRATROP 3MG/0.5MG NEB 3 ML VIAL NEB SCH ×3 (06:55→15:09)
[2019-01-04] MEDS: TRAMADOL HCL 50 MG TABLET PO PRN ×2 (08:58→23:33)
[2019-01-04] MEDS: LISINOPRIL 5 MG TAB PO SCH (08:59)
[2019-01-04] MEDS: DOCUSATE SODIUM 100 MG CAP PO SCH ×2 (09:00→20:26)
[2019-01-04] MEDS: CALCIUM CITRATE 950 MG TAB PO SCH ×2 (09:00→20:22)
[2019-01-04] MEDS ORDERED: ERGOCALCIFEROL 50,000 UNITS CAP PO SCH (09:00)
[2019-01-04] MEDS: CARVEDILOL 3.125 MG TAB PO SCH ×2 (09:00→20:21)
[2019-01-04] MEDS: methIMAzole 5 MG TABLET PO SCH (09:01)
[2019-01-04] MEDS: SERTRALINE HCL 50 MG TABLET PO SCH (09:01)
[2019-01-04] MEDS: ASPIRIN 81 MG CHEW PO SCH (09:01)
[2019-01-04] MEDS: PANTOprazole 40 MG TAB PO SCH (09:01)
[2019-01-04] MEDS: BUMETANIDE 1 MG TAB PO SCH ×2 (10:14→17:00)
[2019-01-04] MEDS: RIVAROXABAN 15 MG TAB PO SCH (10:14)
[2019-01-04] MEDS: POTASSIUM CHLORIDE 10 MEQ TABCR PO SCH ×2 (10:15→20:22)
--- NOTE | 2019-01-04 13:37 | Hospitalist Progress Note ---
Date of Service January 04, 2019 Assessment & Plan (1) Pneumonia: Pneumonia-with productive sputum, cough, left lower lobe patchy infiltrate seen on CT of the abdomen/pelvis. He has been hospitalized recently on several occasions. treat for HCAP, responding well to Zosyn complete 7 days of treatment WBC normal at 7k yesterday, afebrile, no oxygen required no respiratory distress admitted 12/31 in the afternoon, today is day 4 of antibiotics (Zosyn) blood culture positive for Group A strep, not strep pneumo or enterococcus repeat blood cultures with no growth, unsure of the significance (2) Acute abdominal pain: With right upper quadrant abdominal pain noted by history and on physical examination with tenderness in the right upper quadrant on 01/01 CT abdomen/pelvis from admission did show dilated gallbladder with cholelithiasis and possible punctate distal CBD stone that is nonobstructing - reviewing prior records he has had gall stones since at least March 2018 - RUQ US showed gall stones and dilated gall bladder - HIDA scan on 01/02 shows no signs of acute cholecystitis, GB filled in <20 minutes, no signs of CBD obstruction however, there was a borderline low EF at 39% this suggests possible chronic cholecystitis no pain for three days, no fever, WBC normal and vitals stable patient eating really well, no nausea d/w Dr. Morocho over the phone, reviewed the case on 01/03 would not recommend surgery on the gall bladder given that it is not acute cholecystitis, he is better, and extremely high surgical risk patient does not really want surgery either, daughter agrees with plan (3) Cholelithiasis: As above no evidence of acute cholecystitis does have possible chronic cholecystitis responding well to antibiotics (4) Atrial fibrillation: chronic, continue on Coreg, HR well controlled resume Xarelto as there are no plans for surgery (5) Bacteremia: 1 out of 2 sets with gram-positive cocci in chains- final result is Group A strep, not strep pneumo or enterococcus continue on Zosyn repeat cultures drawn 01/01 and show no growth (6) Hypoxia: Secondary to his pneumonia resolved, breathing well on room air (7) 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: AAA is now enlarged to 6.5 cm from 6.2 cm in 05/2018, was 5.7 cm in 02/2018 It is juxtarenal He follows with vascular surgery at [facility], who at the last visit in May 2018 told the patient that he did not need surgery at that time especially in light of the fact that he is high risk for surgery with multiple significant comorbidities d/w vascular surgery 01/02, no need for transfer to tertiary care as repair is not emergent recommend referral to vascular surgery at [facility] as outpatient if the patient would want this long talk with patient and daughter today patient does NOT want procedure to fix AAA he understands that it is high risk for rupture, he is okay with dying in that manner he says he will be in heaven with his daughter agrees with the patient's wishes (8) Hypertension: Blood pressures are well controlled keep low given his AAA -Continue Coreg and lisinopril with hold parameters (9) GERD (gastroesophageal reflux disease): Continue PPI (10) Chronic obstructive pulmonary disease: No acute exacerbation but is with mild hypoxia likely secondary to pneumonia -Treating with bronchodilators as above -No role for steroids at this time (11) Depression: Stable -Continue sertraline, Seroquel (12) Pulmonary hypertension: Noted to be severe in the past and likely secondary to chronic lung disease -Provide supplemental O2 as needed -Watch volume status (13) History of CVA (cerebrovascular accident): Continue aspirin, statin (14) Anemia: Hemoglobin mildly low at 12.8, normocytic Previous iron studies from 6 months ago show anemia chronic disease (15) Hyperlipidemia: -Continue statin (16) Hyperthyroidism: -continue methimazole TSH was 1.06 in 11/2018 (17) CHF (congestive heart failure): With a history of previous chronic systolic CHF with most recent echocardiogram in 11/2018 with preserved EF Known to have pulmonary hypertension as above - resumed Bumex on 01/03 -Continue lisinopril, carvedilol -Follow daily weights, strict I's and O's (18) Hydrocele, bilateral: Chronic and stable, noted to have his penis retracted down into the scrotum which causes spray of his urine, but no symptoms of infection at this time (19) Chronic kidney disease, stage 3a: Baseline creatinine around 1.4 stable at 1.48 on 01/03 He had mild renal insufficiency on admission with creatinine of 1.7 likely secondary to dehydration this is now resolved -Avoid nephrotoxins -Renally dose medications when appropriate (20) DVT prophylaxis: Xarelto Disposition- consult PT/OT looking into SNF rehab in [facility] hopeful for bed tomorrow Subjective patient feeling great today eating everything, no abdominal pain, no nausea breathing well, coughing less now no fever or chills, no dyspnea participating with therapy no labs today discussed with case management [facility] has no beds, referral made to other SNF today medically ready Review of Systems Review of Systems: All systems reviewed & are unremarkable except as noted in HPI & below Physical Exam Constitutional: WD/WN, vitals as above Eyes: PERRL, conjunctivae normal, anicteric sclerae ENMT: external ear and nose normal, oropharynx normal Neck: trachea midline, no thyromegaly Respiratory: normal respiratory effort, lungs clear to auscultation Cardiovascular: Rate/Rhythm: regular rate and + irregularly irregular Heart Sounds: normal S1 and normal S2; no murmur Vessels: no JVD Extremities: normal capillary refill; no edema Gastrointestinal (Abdomen): Inspection/Auscultation: abdomen normal to inspe ction and normal bowel sounds; abdomen not distended Percussion/Palpation: abdomen soft; abdomen nontender, no guarding and abdomen not rigid Musculoskeletal: no cyanosis or clubbing, extremities motor strength 5/5 Skin: no rashes, warm and dry Neurologic: patellar DTR's 2+ bilat, sensation intact and PERRL, EOMI, accommodation nl, no face palsy, no dysarthria Psychiatric: A+Ox3, euthymic affect Lymphatic: no cervical or axillary lymphadenopathy Results & Data Vital Signs (Past 12 Hours) Vital Signs Temp Pulse Resp BP Pulse Ox 01/04/19 07:20 36.5 C 71 16 119/77 92 01/04/19 06:55 60 16 97 Medications Administered Current Inpatient Medications Acetaminophen (Tylenol) 650 mg PO Q4H PRN PRN Reason: Pain or Fever Stop: 01/30/19 17:10 Last Admin: 01/03/19 23:26 Dose: 650 mg Documented by: Al Hydrox/Mg Hydrox/Simethicone (Maalox) 15 ml PO Q4H PRN PRN Reason: Dyspepsia Stop: 01/30/19 17:10 Albuterol (Duoneb) 3 ml NEB QIDR [facility] Stop: 01/30/19 19:59 Last Admin: 01/04/19 11:38 Dose: Not Given Documented by: Aspirin (Aspirin Chew) 81 mg PO QAM [facility] Stop: 01/31/19 08:59 Last Admin: 01/04/19 09:01 Dose: 81 mg Documented by: Atorvastatin Calcium (Lipitor) 40 mg PO HS [facility] Stop: 01/30/19 20:59 Last Admin: 01/03/19 20:53 Dose: 40 mg Documented by: Bumetanide (Bumex) 1 mg PO BID17 [facility] Stop: 01/30/19 17:10 Last Admin: 01/04/19 10:14 Dose: 1 mg Documented by: Calcium Citrate (Citracal) 950 mg PO BID [facility] Stop: 01/30/19 20:59 Last Admin: 01/04/19 09:00 Dose: 950 mg Documented by: Carvedilol (Coreg) 3.125 mg PO BID [facility] Stop: 01/30/19 20:59 Last Admin: 01/04/19 09:00 Dose: 3.125 mg Documented by: Diclofenac Sodium (Voltaren 1% Top) 1 appln EXT Q12 [facility] Stop: 02/03/19 20:59 Docusate Sodium (Colace) 100 mg PO BID [facility] Stop: 01/30/19 20:59 Last Admin: 01/04/19 09:00 Dose: 100 mg Documented by: Ergocalciferol (Vitamin D2) 50,000 units PO We@0900 [facility] Stop: 02/03/19 08:59 Last Admin: 01/04/19 08:59 Dose: 50,000 units Documented by: Piperacillin Sod/Tazobactam (Sod 3.375 gm/ Dextrose) 115 mls @ 28.75 mls/hr IV Q8H [facility]; Protocol Stop: 01/11/19 19:59 Last Admin: 01/04/19 13:39 Dose: 28.8 mls/hr Documented by: Levalbuterol HCl (Xopenex 1.25mg/3ml Neb) 1.25 mg NEB Q4H PRN PRN Reason: shortness of breath Stop: 01/30/19 17:10 Lisinopril (Zestril) 5 mg PO QAM [facility] Stop: 01/31/19 08:59 Last Admin: 01/04/19 08:59 Dose: 5 mg Documented by: Magnesium Hydroxide (Milk Of Magnesia) 30 ml PO Q12H PRN PRN Reason: Constipation Stop: 01/30/19 17:10 Last Admin: 01/02/19 11:58 Dose: 30 ml Documented by: Methimazole (Tapazole) 5 mg PO QAM [facility] Stop: 01/31/19 08:59 Last Admin: 01/04/19 09:01 Dose: 5 mg Documented by: Miscellaneous Information (Consult) 1 ea N/A UD PRN PRN Reason: Consult Stop: 01/31/19 14:32 Ondansetron HCl (Zofran) 4 mg IV Q6H PRN PRN Reason: Nausea Stop: 01/30/19 17:10 Last Admin: 01/02/19 09:26 Dose: 4 mg Documented by: Pantoprazole Sodium (Protonix) 40 mg PO MoWeFr@0900 [facility] Stop: 02/01/19 08:59 Last Admin: 01/04/19 09:01 Dose: 40 mg Documented by: Polyethylene Glycol (Miralax Powder Packet) 17 gm PO DAILY PRN PRN Reason: Constipation Stop: 01/30/19 17:10 Last Admin: 01/02/19 11:59 Dose: 17 gm Documented by: Potassium Chloride (Klor-Con M10) 10 meq PO BID [facility] Stop: 01/30/19 20:59 Last Admin: 01/04/19 10:15 Dose: 10 meq Documented by: Quetiapine Fumarate (Seroquel) 50 mg PO HS [facility] Stop: 01/30/19 20:59 Last Admin: 01/03/19 20:50 Dose: 50 mg Documented by: Rivaroxaban (Xarelto) 15 mg PO QAM [facility] Stop: 01/31/19 08:59 Last Admin: 01/04/19 10:14 Dose: 15 mg Documented by: Sertraline HCl (Zoloft) 50 mg PO QAM [facility] Stop: 01/31/19 08:59 Last Admin: 01/04/19 09:01 Dose: 50 mg Documented by: Tramadol HCl (Ultram) 50 mg PO Q6H PRN PRN Reason: pain Stop: 01/30/19 17:10 Last Admin: 01/04/19 08:58 Dose: 50 mg Documented by: PG Care Time/CCT Total # of Minutes Spent Total Time Spent with Patient: Total time spent is greater than 50% in coordination of care (as documented) at patient's floor/unit and/or counseling patient: (1) CHF (congestive heart failure) Heart failure chronicity: unspecified Heart failure type: unspecified Qualified Code(s): I50.9 - Heart failure, unspecified (2) Atrial fibrillation Atrial fibrillation type: chronic Qualified Code(s): I48.2 - Chronic atrial fibrillation (3) Depression Depression Type: unspecified Qualified Code(s): F32.9 - Major depressive disorder, single episode, unspecified (4) Chronic obstructive pulmonary disease COPD type: chronic bronchitis Chronic bronchitis type: simple Qualified Code(s): J41.0 - Simple chronic bronchitis (5) Pneumonia Laterality: left Lung location: lower lobe of lung Pneumonia type: due to unspecified organism Qualified Code(s): J18.1 - Lobar pneumonia, unspecified organism (6) Cholelithiasis Biliary obstruction: without biliary obstruction Cholecystitis presence: without cholecystitis Cholelithiasis location: gallbladder Qualified Code(s): K80.20 - Calculus of gallbladder without cholecystitis without obstruction
[2019-01-04] MEDS: DICLOFENAC SOD 1% GEL 100 GM TUBE EXT SCH (20:20)
[2019-01-04] MEDS: ATORVASTATIN 40 MG TAB PO SCH (20:23)
[2019-01-04] MEDS: QUETIAPINE FUMARATE 25 MG TABLET PO SCH (20:26)
[2019-01-05] MEDS: ACETAMINOPHEN 325 MG TAB PO PRN ×2 (00:24→00:25)
[2019-01-05] MEDS ORDERED: MoRPHine SULFATE 2 MG/ML CARP IV PRN (01:01)
[2019-01-05] MEDS: PIPERACILLIN/TAZOBACTAM 3.375 GM in DEXTROSE 5% 100 ML IV SCH ×2 (04:06→12:06)
[2019-01-05 06:57] LABS: Basophils # (auto) 0.02 K/uL (0-0.2); Basophils % (auto) 0.3 %; Eosinophils # (auto) 0.24 K/uL (0-0.5); Eosinophils % (auto) 3.2 %; Hematocrit (blood only) 40.3 % (42-52); Hemoglobin 13.2 g/dL (14.0-18.0); Immature Granulocytes # (auto) 0.12 K/uL (0.00-0.02); Immature Granulocytes % (auto) 1.6 %; Lymphocytes # (auto) 1.25 K/uL (1.2-3.4); Lymphocytes % (auto) 16.9 %; Mean Corpuscular Hgb Conc 32.8 g/dL (32-36); Mean Corpuscular Volume 89.8 fL (80-100); Mean Platelet Volume 10.1 fL (7.4-10.4); Monocytes % (auto) 13.5 %; Neutrophils # (auto) 4.77 K/uL (1.4-6.5); Neutrophils % (auto) 64.5 %; Platelet Count 186 K/uL (130-400); RDW Coefficient of Variation 15.5 % (11.5-14.5); Red Blood Count 4.49 M/uL (4.7-6.1)
[2019-01-05 07:31] LABS: Albumin Level 2.7 gm/dl (3.4-5.0); BUN Creatinine Ratio 15.3 (10-20); Calcium 9.3 mg/dl (8.5-10.1); Creatinine Clr Calc Pharmacy 40.8 ml/min; Est GFR (African American) 49.4; Est GFR (Non-African American) 42.6; Potassium 4.4 mmol/L (3.5-5.1)
[2019-01-05 07:34] LABS: Albumin Globulin Ratio 0.7 (0.9-2); Bilirubin,Total 0.4 mg/dl (0.2-1); Total Protein 6.7 gm/dl (6.4-8.2)
[2019-01-05] MEDS: CALCIUM CITRATE 950 MG TAB PO SCH (08:36)
[2019-01-05] MEDS: methIMAzole 5 MG TABLET PO SCH (08:36)
[2019-01-05] MEDS: BUMETANIDE 1 MG TAB PO SCH (08:36)
[2019-01-05] MEDS: POTASSIUM CHLORIDE 10 MEQ TABCR PO SCH (08:37)
[2019-01-05] MEDS: RIVAROXABAN 15 MG TAB PO SCH (08:37)
[2019-01-05] MEDS: SERTRALINE HCL 50 MG TABLET PO SCH (08:37)
[2019-01-05] MEDS: DICLOFENAC SOD 1% GEL 100 GM TUBE EXT SCH (08:37)
[2019-01-05] MEDS: LISINOPRIL 5 MG TAB PO SCH (08:41)
[2019-01-05] MEDS: CARVEDILOL 3.125 MG TAB PO SCH (08:42)
[2019-01-05] MEDS: DOCUSATE SODIUM 100 MG CAP PO SCH (09:40)
[2019-01-05] MEDS: ASPIRIN 81 MG CHEW PO SCH (09:40)
--- NOTE | 2019-01-05 14:36 | Discharge Summary ---
Date of Service January 05, 2019 Admission HPI Per Admitting Provider 88 M Hx CHF, HTN, HLD, Chronic AF, hyperthyroidism, 6.5 cm AAA, CKD III, anemia, depression. The pt was sent in from a nursing facility with a reported complaint of lower quadrant abdominal pain and nausea. He gave me an entirely different story as to why he had arrived, stating that he was short of breath with a productive cough and a fever. Based on the initial complaint and his AAA history, a CT abdomen was obtained on arrival to the ER. This showed progression of his aneurysm and a LLL infiltrate. No additional abnormalities were noted in the abdomen. He was requiring 2L 02 to maintain an adequate satur ation at the time of admission. Initial labs are notable for leukocytosis and mild SHAY. He coughed frequently during my examination. 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 Daughter lives nearly one hour away. He does not drink or smoke. Family: Father due to prostate CA Mother following an DC Admission Exam Per Admitting Provider General: Pleasant, elderly M, AAO x 2 - no distress ENT: No erythema or exudates, no thrush Eyes: ADALGISA, EOMI Head and neck: Normocephalic, atraumatic, No JVD, neck is supple. Chest/heart: Nontender, S1,2, RRR, no murmurs, no gallops Lungs: CTAB, no wheezing or crackles Abdomen: Nontender, nondistended, BS+ Neuro: AAO x 3, speech is clear, no unilateral weakness or loss of sensation, coordination intact Musculoskeletal: No joint inflammation, muscle tenderness, FROM : Scrotal edema Skin: No acute rashes or ulcers Extremities: No clubbing, cyanosis, edema Principal Diagnosis Pneumonia Discharge Exam Constitutional WD/WN, vitals as above Eyes PERRL, conjunctivae normal, anicteric sclerae ENMT external ear and nose normal, oropharynx normal Neck trachea midline, no thyromegaly Respiratory normal respiratory effort, lungs clear to auscultation Cardiovascular Rate/Rhythm: regular rate and + irregularly irregular Heart Sounds: normal S1 and normal S2; no murmur Vessels: no JVD Extremities: normal capillary refill; no edema Gastrointestinal (Abdomen) Inspection/Auscultation: abdomen normal to inspection and normal bowel sounds; abdomen not distended Percussion/Palpation: abdomen soft; abdomen nontender, no guarding and abdomen not rigid Musculoskeletal no cyanosis or clubbing, extremities motor strength 5/5 Skin no rashes, warm and dry Neurologic patellar DTR's 2+ bilat, sensation intact and PERRL, EOMI, accommodation nl, no face palsy, no dysarthria Psychiatric A+Ox3, euthymic affect Lymphatic no cervical or axillary lymphadenopathy Discharge Data Allergies Allergy/AdvReac Type Severity Reaction Status Date / Time Iodinated Contrast- Oral and Allergy Severe ANAPHYLAXIS Verified 12/31/18 11:30 IV Dye Sulfa (Sulfonamide Allergy Unknown UNKNOWN Verified 12/31/18 11:30 Antibiotics) Consultations 12/31/18 14:24 ED Decision to Admit Stat 01/01/19 15:39 Consult Vascular Surgery Routine Ordered Studies 12/31/18 11:18 CT abd pelvis wo con Stat 01/01/19 08:36 US gallbladder Routine Hospital Course (1) Pneumonia: Pneumonia-with productive sputum, cough, left lower lobe patchy infiltrate seen on CT of the abdomen/pelvis. He has been hospitalized recently on several occasions. treat for HCAP, responding well to Zosyn complete 7 days of treatment WBC normal at 7k, afebrile, no oxygen required no respiratory distress admitted 12/31 in the afternoon, today is day 5 of antibiotics (Zosyn) blood culture positive for Group A strep, not strep pneumo or enterococcus repeat blood cultures with no growth, unsure of the significance d/c on Augmenting, complete a total of 14 days further antibiotics after discharge is to treat the gall bladder in addition to bacteremia and pneumonia (2) Acute abdominal pain: With right upper quadrant abdominal pain noted by history and on physical examination with tenderness in the right upper quadrant on 01/01 CT abdomen/pelvis from admission did show dilated gallbladder with cholelithiasis and possible punctate distal CBD stone that is nonobstructing - reviewing prior records he has had gall stones since at least March 2018 - RUQ US showed gall stones and dilated gall bladder - HIDA scan on 01/02 shows no signs of acute cholecystitis, GB filled in <20 minutes, no signs of CBD obstruction however, there was a borderline low EF at 39% this suggests possible chronic cholecystitis no pain for four days, no fever, WBC normal and vitals stable patient eating really well, no nausea d/w Dr. Morocho over the phone, reviewed the case on 01/03 would not recommend surgery on the gall bladder given that it is not acute cholecystitis, he is better, and extremely high surgical risk patient does not really want surgery either, daughter agrees with plan will complete a total of 14 days of antibiotics transitioned to Augmentin PO on discharge (3) Cholelithiasis: As above no evidence of acute cholecystitis does have possible chronic cholecystitis responding well to antibiotics (4) Atrial fibrillation: chronic, continue on Coreg, HR well controlled resume Xarelto as there are no plans for surgery (5) Bacteremia: 1 out of 2 sets with gram-positive cocci in chains- final result is Group A strep, not strep pneumo or enterococcus continue on Zosyn while admitted repeat cultures drawn 01/01 and show no growth d/c on Augmentin (6) Hypoxia: Secondary to his pneumonia resolved, breathing well on room air for several days (7) 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: AAA is now enlarged to 6.5 cm from 6.2 cm in 05/2018, was 5.7 cm in 02/2018 It is juxtarenal He follows with vascular surgery at [facility], who at the last visit in May 2018 told the patient that he did not need surgery at that time especially in light of the fact that he is high risk for surgery with multiple significant comorbidities d/w vascular surgery 01/02, no need for transfer to tertiary care as repair is not emergent recommend referral to vascular surgery at [facility] as outpatient if the patient would want this long talk with patient and daughter while admitted patient does NOT want procedure to fix AAA he understands that it is high risk for rupture, he is okay with dying in that manner he says he will be in heaven with his daughter agrees with the patient's wishes no plans for tertiary referral after discharge as the patient is NOT interested in repair (8) Hypertension: Blood pressures are well controlled keep low given his AAA -Continue Coreg and lisinopril with hold parameters (9) GERD (gastroesophageal reflux disease): Continue PPI (10) Chronic obstructive pulmonary disease: No acute exacerbation but is with mild hypoxia likely secondary to pneumonia -Treating with bronchodilators as above -No role for steroids at this time (11) Depression: Stable -Continue sertraline, Seroquel (12) Pulmonary hypertension: Noted to be severe in the past and likely secondary to chronic lung disease -Provide supplemental O2 as needed -Watch volume status (13) History of CVA (cerebrovascular accident): Continue aspirin, statin (14) Anemia: Hemoglobin mildly low at 12.8, normocytic Previous iron studies from 6 months ago show anemia chronic disease (15) Hyperlipidemia: -Continue statin (16) Hyperthyroidism: -continue methimazole TSH was 1.06 in 11/2018 (17) CHF (congestive heart failure): With a history of previous chronic systolic CHF with most recent echocardiogram in 11/2018 with preserved EF Known to have pulmonary hypertension as above - resumed Bumex on 01/03 -Continue lisinopril, carvedilol -Follow daily weights, strict I's and O's (18) Hydrocele, bilateral: Chronic and stable, noted to have his penis retracted down into the scrotum which causes spray of his urine, but no symptoms of infection at this time (19) Chronic kidney disease, stage 3a: Baseline creatinine around 1.4 stable at 1.48 on 01/03 He had mild renal insufficiency on admission with creatinine of 1.7 likely secondary to dehydration this is now resolved -Avoid nephrotoxins -Renally dose medications when appropriate (20) DVT prophylaxis: Xarelto Disposition- consult PT/OT looking into SNF rehab in [facility] hopeful for bed tomorrow Total Time Total Time Spent Total Time Spent (In Minutes): 37 minutes Total Time Includes: Examination of the Patient, Discharge Planning, Medication Reconciliation and Other (talked with family) Discharge Plan Discharge Items Patient Disposition: Transfer [facility] Fac Reason For Visit: PNM, CHF Discharge Diagnosis: Pneumonia, left lower lobe Abdominal pain, possible chronic cholecystitis AAA, 6.5cm Condition: Good Discharge Goals: Improve function and Increase independence Activity: Resume your previous activity Non-emergency contact: Primary Care Provider Call non-emergency contact if: you have any medication questions, your symptoms worsen, your pain is not controlled and you have a fever Follow-up/Referrals: Hakan Willingham [Primary Care Provider] - Diet: Heart Healthy Addtl Provider Instructions: Medications: - AUGMENTIN: take for 7 more days to cover pneumonia but also gall bladder Left lower lobe pneumonia: responded quite well to Zosyn IV breathing room air, no fever, WBC normal, no cough complete course of Augementin Abdominal pain, RUQ gall stones and some dilation of the GB on ultrasound HIDA scan showed no signs of cholecystitis, did show low normal EF suggesting possible chronic cholecystitis patient is at extremely high risk for complications with cholecystectomy discussed with surgeons, would not operate, treat with antibiotics not even clear that this is surgical issue no further pain, no nausea, no fever, eating well complete 7 more days of Augmentin AAA, enlarging, up to 6.5cm it is juxtarenal, difficult position to fix endovascularly, would need fenestrated graft if it would be done, would need to be at tertiary care long talk with patient and his family he does NOT want surgery, he knows that the AAA could rupture at any time he is okay with this he is a DNR, DNI would want to keep BP low, his is well controlled on the Coreg, 103/71 FOLLOW UP - physician at [facility] within the week Prescriptions: New amoxicillin-pot clavulanate 875-125 mg tablet 1 tab PO Q12H Qty: 14 RF: 0 Continued atorvastatin 40 mg Tablet 40 mg PO HS RF: 0 methimazole 5 mg Tablet 5 mg PO QAM RF: 0 aspirin [Aspirin Childrens] 81 mg Tablet,Chewable 81 mg PO QAM RF: 0 ergocalciferol (vitamin D2) [Vitamin D2] 50,000 unit Capsule 50,000 unit PO WK RF: 0 sertraline 50 mg Tablet 50 mg PO QAM RF: 0 quetiapine 50 mg Tablet 50 mg PO HS RF: 0 Xarelto 15 mg Tablet 15 mg PO QAM RF: 0 diclofenac sodium [Voltaren] 1 % Gel 4 g TOPICAL TID RF: 0 lisinopril 5 mg tablet 5 mg PO QAM RF: 0 pantoprazole [Protonix] 40 mg tablet,delayed release (DR/EC) 40 mg PO 3XWK RF: 0 docusate sodium [Colace] 100 mg Capsule 100 mg PO BID RF: 0 bumetanide 1 mg tablet 1 mg PO BID17 RF: 0 calcium citrate [Calcitrate] 200 mg (950 mg) tablet 200 mg PO BID RF: 0 tramadol 50 mg Tablet 50 mg PO Q6H PRN (Reason: pain) 30 Days Qty: 60 RF: 0 carvedilol 3.125 mg Tablet 3.125 mg PO BID 30 Days Qty: 60 RF: 3 potassium chloride [Klor-Con M10] 10 mEq Tablet,Er Particles/Crystals 10 meq PO BID 30 Days Qty: 60 RF: 0 Stand-Alone Forms: [facility] Discharge Orders: Discharge Order (Routine); Ordered 01/05/19 Ordered By: Woody Soares Skilled Items Patient informed of condition?: Yes DNR: Yes Discharge Level of Care: Skilled Communicable Disease: No Admission Data Admit Date/Time: 12/31/18 16:19 Attending Provider: Woody Soares Admit Provider: Austin Baugh Primary Care Provider: Hakan Willingham Other Providers: Dago Khan Service: Medical Other Interventions: Discharge Summary Assessment (RN) Last Done: 01/05/19 12:17 DC Date/Time DO NOT enter until pt leaves facility: 01/05/19 14:05
== END 2019-01-05 14:05 | DRG 190 ==
LOC: ED 10:42 → SUATTDRO 16:19 → 2S 16:19 → 2N 01-03 14:25
DX: Z66 Do not resuscitate; R78.81 Bacteremia; D63.1 Anemia in chronic kidney disease; N18.3 Chronic kidney disease, stage 3 (moderate); I48.2 Chronic atrial fibrillation; I27.20 Pulmonary hypertension, unspecified; E78.5 Hyperlipidemia, unspecified; Z87.891 Personal history of nicotine dependence; I71.4 Abdominal aortic aneurysm, without rupture; Z79.899 Other long term (current) drug therapy; J44.0 Chronic obstructive pulmonary disease with (acute) lower respiratory infection; Z88.2 Allergy status to sulfonamides; J18.1 Lobar pneumonia, unspecified organism; B95.0 Streptococcus, group A, as the cause of diseases classified elsewhere; K21.9 Gastro-esophageal reflux disease without esophagitis; Z82.49 Family history of ischemic heart disease and other diseases of the circulatory system; Z79.82 Long term (current) use of aspirin; F32.9 Major depressive disorder, single episode, unspecified; K40.90 Unilateral inguinal hernia, without obstruction or gangrene, not specified as recurrent; R09.02 Hypoxemia; Z86.73 Personal history of transient ischemic attack (TIA), and cerebral infarction without residual deficits; E05.90 Thyrotoxicosis, unspecified without thyrotoxic crisis or storm; E86.0 Dehydration; Z51.81 Encounter for therapeutic drug level monitoring; I50.22 Chronic systolic (congestive) heart failure; K80.64 Calculus of gallbladder and bile duct with chronic cholecystitis without obstruction; I13.0 Hypertensive heart and chronic kidney disease with heart failure and stage 1 through stage 4 chronic kidney disease, or unspecified chronic kidney disease; Z79.01 Long term (current) use of anticoagulants; Z91.041 Radiographic dye allergy status

== ENCOUNTER 2019-09-07 11:23 | Observation (INO) ==
--- NOTE | 2019-09-07 12:22 | Emergency Department Note ---
ED Provider Note NAME: SAUD ALDRICH AGE: 89 SEX: M ARRIVES VIA: Ambulance INFORMANT: Patient ED PROVIDER(S): Kobi Aguilar DO CHIEF COMPLAINT: Shortness of breath MEDICAL DECISION MAKING: Patient is an 89-year-old male with a past medical history of A. fib, diastolic heart failure, pulmonary hypertension, CVA, CKD that presents the ER for increased shortness of breath and possible new/slightly worsened cough. IV was established blood work was obtained and showed no significant leukocytosis or anemia. INR was unremarkable. BMP along with LFTs bilirubin and troponin was negative. Lipase was normal. Influenza was negative. EKG shows new ST depr essions in V2 through V4. This is associated with a right bundle but with his worsening shortness of breath cannot be certain that this is not truly cardiac. Patient was given a neb treatment as well as aspirin and IV Levaquin. Discussed case with the hospitalist for observation. PE was considered but he is on a NOAC and has not missed any doses. Triage Nursing notes reviewed and agree them. Prior medical records reviewed Vital Signs: reviewed and remarkable for no significant abnormalities Differential diagnosis: Differential diagnoses includes but is not limited to pneumonia, bronchitis, COPD/Asthma exacerbation, pneumothorax, pulmonary embolism, congestive heart failure, acute coronary syndrome ER treatment provided: See above in MDM or below Diagnostics interpreted by me: ECG: A. fib rate of 70 Right bundle branch block, ST depressions V2 through V4. Nonspecific ST waves in the inferior. Normal axis. EKG changes in V2 through V4 are new from 01/01/2019 Cardiac Monitoring: A. fib rate of 72 Laboratory studies: See below Imaging studies: See below Chest x-ray 1 view shows no focal infiltrate. Consultation(s): Discussed with Pooja Garces for observation. 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 Patient notes that he has had a cough for the past year but recently has worsened. Also admits to a runny nose. Wears 2 L nasal cannula intermittently. He denies any abdominal pain but does admit to vomiting twice last night. He does have a previous history of pneumonia with a prolonged stay in the hospital and admission to rehab. Patient denies any chest pain, weakness or numbness in his arms or legs. No other exacerbating or remitting factors. He notes that the shortness of breath is slightly worse without moving around. ROS: See above HPI for pertinent positives & negatives. A total of 10 systems reviewed and were otherwise negative. PAST MEDICAL HISTORY:See Below PAST SURGICAL HISTORY:See Below FAMILY HISTORY:See Below SOCIAL HISTORY:See Below HOME MEDICATIONS:See Below ALLERGIES:See Below VITALS:See Below PHYSICAL EXAMINATION: GENERAL: Sitting up in bed, Chronically ill appearing, talking in full sentences EYE EXAM: normal conjunctiva. OROPHARYNX: no exudate, no erythema, lips, buccal mucosa, and tongue normal and mucous membranes are moist NECK: supple, no nuchal rigidity, no adenopathy, non-tender LUNGS: diminished B/L. Normal chest wall mechanics HEART: S1 normal and S2 normal ABDOMEN: abdomen soft, non-tender, normo-active bowel sounds, no masses, no rebound or guarding. BACK: Back is symmetrical on inspection and there is no deformity, no midline tenderness, no CVA tenderness. SKIN: no rashes and no bruising UPPER EXTREMITIES: upper extremities are grossly normal. LOWER EXTREMITIES: No pitting edema. equal B/L NEURO EXAM: Normal sensorium, cranial nerves II-XII grossly intact, normal speech, no gross weakness of arms, no gross weakness of legs. 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) Atrial fibrillation (Chronic) Cancer lYMPHOMA CHF (congestive heart failure) (Chronic) EF 25-30% (May 14) Cholelithiasis Chronic obstructive pulmonary disease (Chronic) Congestive heart failure Depression (Chronic) GERD (gastroesophageal reflux disease) (Chronic) HTN (hypertension) (Chronic) Hypertension (Chronic) Hyperthyroidism (Chronic) Lymphoma (Chronic) Pneumonia (Acute) Stroke Surgical History History of cardiac cath Family History Unknown Myocardial infarction Social History Preferred Language: [place] Communication Ability: Effective Visual Impairment: Partially Limited Obstetrician/Gynecologist Required: No Beliefs That Will Affect Care: None marital status: / Current Living Situation: Alone Current Living Situation Comment: lives at [facility] Other Information That Helps Us Care for You: No Feels Safe at Home: Yes Safety Concerns: Feels Safe At This Time Smoking Status: Former smoker Tobacco Type: cigarettes ; Do You Dip or Chew Tobacco: No ; Smoking End Date: 1944 ; Second Hand Exposure: No ; Tobacco Cessation Education Requested by Patient: No Hx Alcohol Use: No Hx Substance Use: No Results & Data Vital Signs Vital Signs - 24 hr 09/07/19 11:28 09/07/19 11:30 09/07/19 12:34 Temperature 36.3 C L Temperature Source Oral Pulse Rate 71 Pulse Rate [Finger] Pulse Rate from SpO2 Sensor Pulse Rhythm Irregular Respiratory Rate 20 Respiratory Effort / Characteristics Spontaneous Short of Breath Non-Labored Spontaneous Respiratory Depth Normal Normal Respiratory Pattern Regular Regular Blood Pressure 138/91 Blood Pressure Mean 106 Blood Pressure Position Lying Pulse Oximetry 95 94 97 Oxygen Delivery Method Room Air Room Air Nasal Cannula Oxygen Flow Rate 2 Sepsis Recent Fever Within 48 Hours No Sepsis New/Unexplained Change in Mental Status No Sepsis Action Taken by Nursing No Action Required Oxygen Flow Rate - Titration 2 Pulse Oximetry Post Tiitration 97 09/07/19 13:52 09/07/19 14:00 09/07/19 14:30 Temperature Temperature Source Pulse Rate 67 69 67 Pulse Rate [Finger] Pulse Rate from SpO2 Sensor 70 70 72 Pulse Rhythm Respiratory Rate 22 24 18 Respiratory Effort / Characteristics Respiratory Depth Respiratory Pattern Blood Pressure 153/100 H 149/104 H 145/90 H Blood Pressure Mean 121 117 102 Blood Pressure Position Pulse Oximetry 95 97 98 Oxygen Delivery Method Oxygen Flow Rate Sepsis Recent Fever Within 48 Hours Sepsis New/Unexplained Change in Mental Status Sepsis Action Taken by Nursing Oxygen Flow Rate - Titration Pulse Oximetry Post Tiitration 09/07/19 15:00 09/07/19 15:30 09/07/19 15:52 Temperature Temperature Source Pulse Rate 68 71 Pulse Rate [Finger] 67 Pulse Rate from SpO2 Sensor 66 68 Pulse Rhythm Respiratory Rate 22 25 H 18 Respiratory Effort / Characteristics Spontaneous Short of Breath Respiratory Depth Respiratory Pattern Blood Pressure 153/100 H 148/96 H Blood Pressure Mean 110 99 Blood Pressure Position Pulse Oximetry 98 99 97 Oxygen Delivery Method Nasal Cannula Oxygen Flow Rate 2 Sepsis Recent Fever Within 48 Hours Sepsis New/Unexplained Change in Mental Status Sepsis Action Taken by Nursing Oxygen Flow Rate - Titration Pulse Oximetry Post Tiitration 09/07/19 16:00 Temperature Temperature Source Pulse Rate 68 Pulse Rate [Finger] Pulse Rate from SpO2 Sensor 68 Pulse Rhythm Respiratory Rate 18 Respiratory Effort / Characteristics Respiratory Depth Respiratory Pattern Blood Pressure 127/77 Blood Pressure Mean 93 Blood Pressure Position Pulse Oximetry 97 Oxygen Delivery Method Oxygen Flow Rate Sepsis Recent Fever Within 48 Hours Sepsis New/Unexplained Change in Mental Status Sepsis Action Taken by Nursing Oxygen Flow Rate - Titration Pulse Oximetry Post Tiitration Laboratory Data Result diagrams: 09/07/19 17:46 09/07/19 11:02 Lab Results 09/07/19 09/07/19 09/07/19 Range/Units 11:02 11:02 11:02 WBC 5.77 (4.8-10.8) K/uL RBC 4.60 L (4.7-6.1) M/uL Hgb 12.8 L (14.0-18.0) g/dL Hct 41.0 L (42-52) % MCV 89.1 (80-100) fL MCH 27.8 (25-34) pg MCHC 31.2 L (32-36) g/dL RDW Std Deviation 56.2 H (36.4-46.3) fL RDW Coeff of Jennifer 17.4 H (11.5-14.5) % Plt Count 176 (130-400) K/uL MPV 10.9 H (7.4-10.4) fL Immature Gran % (Auto) 0.3 % Neut % (Auto) 59.8 % Lymph % (Auto) 20.5 % [place] % (Auto) 13.9 % Eos % (Auto) 5.0 % Baso % (Auto) 0.5 % Immature Gran # (Auto) 0.02 (0.00-0.02) K/uL Neut # (Auto) 3.45 (1.4-6.5) K/uL Lymph # (Auto) 1.18 L (1.2-3.4) K/uL [place] # (Auto) 0.80 H (0.11-0.59) K/uL Eos # (Auto) 0.29 (0-0.5) K/uL Baso # (Auto) 0.03 (0-0.2) K/uL PT (9.0-12.0) Seconds INR (0.9-1.1) APTT (21.0-31.0) Seconds PTT Ratio Sodium 141 (136-145) mmol/L Potassium 3.8 (3.5-5.1) mmol/L Chloride 107 (98-107) mmol/L Carbon Dioxide 30 (21-32) mmol/L Anion Gap 4.0 (3-11) BUN 18 (7-18) mg/dl Creatinine 1.15 (0.6-1.4) mg/dl Est Cr Clr Drug Dosing 51.1 ml/min Est GFR ( Amer) 65.9 Est GFR (Non-Af Amer) 56.9 BUN/Creatinine Ratio 15.4 (10-20) Glucose 104 H (70-99) mg/dl Calcium 8.9 (8.5-10.1) mg/dl Total Bilirubin 0.5 (0.2-1) mg/dl AST 20 (15-37) U/L ALT 18 (12-78) U/L Alkaline Phosphatase 113 (45-117) U/L Troponin I < 0.015 (0-0.045) ng/ml NT-Pro-B Natriuret Pep 1259 (0-1800) pg/ml Total Protein 7.8 (6.4-8.2) gm/dl Albumin 3.8 (3.4-5.0) gm/dl Globulin 4.0 (2.5-4.0) gm/dl Albumin/Globulin Ratio 1.0 (0.9-2) Lipase 71 L (73-393) U/L Influenza Type A (PCR) (Neg) Influenza Type B (PCR) (Neg) 09/07/19 09/07/19 Range/Units 12:46 13:50 WBC (4.8-10.8) K/uL RBC (4.7-6.1) M/uL Hgb (14.0-18.0) g/dL Hct (42-52) % MCV (80-100) fL MCH (25-34) pg MCHC (32-36) g/dL RDW Std Deviation (36.4-46.3) fL RDW Coeff of Jennifer (11.5-14.5) % Plt Count (130-400) K/uL MPV (7.4-10.4) fL Immature Gran % (Auto) % Neut % (Auto) % Lymph % (Auto) % [place] % (Auto) % Eos % (Auto) % Baso % (Auto) % Immature Gran # (Auto) (0.00-0.02) K/uL Neut # (Auto) (1.4-6.5) K/uL Lymph # (Auto) (1.2-3.4) K/uL [place] # (Auto) (0.11-0.59) K/uL Eos # (Auto) (0-0.5) K/uL Baso # (Auto) (0-0.2) K/uL PT 11.7 (9.0-12.0) Seconds INR 1.1 (0.9-1.1) APTT 28.1 (21.0-31.0) Seconds PTT Ratio 1.0 Sodium (136-145) mmol/L Potassium (3.5-5.1) mmol/L Chloride (98-107) mmol/L Carbon Dioxide (21-32) mmol/L Anion Gap (3-11) BUN (7-18) mg/dl Creatinine (0.6-1.4) mg/dl Est Cr Clr Drug Dosing ml/min Est GFR ( Amer) Est GFR (Non-Af Amer) BUN/Creatinine Ratio (10-20) Glucose (70-99) mg/dl Calcium (8.5-10.1) mg/dl Total Bilirubin (0.2-1) mg/dl AST (15-37) U/L ALT (12-78) U/L Alkaline Phosphatase (45-117) U/L Troponin I (0-0.045) ng/ml NT-Pro-B Natriuret Pep (0-1800) pg/ml Total Protein (6.4-8.2) gm/dl Albumin (3.4-5.0) gm/dl Globulin (2.5-4.0) gm/dl Albumin/Globulin Ratio (0.9-2) Lipase (73-393) U/L Influenza Type A (PCR) Neg for Influ A (Neg) Influenza Type B (PCR) Neg for Influ B (Neg) Administered Medications Calcium Citrate (Citracal) 950 mg PO BIDM DAVID Stop: 10/07/19 17:44 Last Admin: 03/12/20 18:56 Dose: 950 mg Documented by: [id number] Docusate Sodium (Colace) 100 mg PO BID DAVID Stop: 10/07/19 20:59 Last Admin: 09/07/19 18:51 Dose: Not Given Documented by: [id number] Ferrous Sulfate (Feosol) 325 mg PO BIDM [facility] Stop: 10/07/19 17:44 Last Admin: 09/07/19 18:51 Dose: Not Given Documented by: [id number] Bumetanide 1 mg/ Syringe 4 mls @ 4 mls/min IV DAILY@0900,1700 [facility] Stop: 10/07/19 17:44 Last Admin: 09/07/19 18:58 Dose: 4 mls/min Documented by: [id number] Rivaroxaban (Xarelto) 15 mg PO QDD [facility] Stop: 10/07/19 17:44 Last Admin: 09/07/19 18:56 Dose: 15 mg Documented by: [id number] Discontinued Medications Albuterol (Ventolin 0.083% 2.5mg/3ml) 2.5 mg NEB NOW STA Stop: 09/07/19 15:28 Last Admin: 09/07/19 15:51 Dose: 2.5 mg Documented by: [id number] Levofloxacin/Dextrose (Levaquin/D5w) 750 mg in 150 mls @ 100 mls/hr IV Q24H DAVID Stop: 09/21/19 13:59 Last Infusion: 09/07/19 15:32 Dose: 0 mls/hr Documented by: [id number] Admin: 09/07/19 13:53 Dose: 100 mls/hr Documented by: [id number] Discharge Plan Visit Data *Final* Discharge Date/Time: 09/07/19 16:45 Chief Complaint: Shortness of Breath/Dyspnea Stated Complaint: sob ED Provider: Kobi Aguilar Discharge Problem: SOB (shortness of breath), Atrial fibrillation, CHF (congestive heart failure) Patient Disposition: Admitted As Inpatient Discharge Instructions Interventions: ED Discharge Assessment Last Done: 09/07/19 16:45 Discharge Problem: Atrial fibrillation Qualifiers: Atrial fibrillation type: unspecified Qualified Code(s): I48.91 - Unspecified atrial fibrillation CHF (congestive heart failure) Qualifiers: Heart failure type: unspecified Heart failure chronicity: unspecified Qualified Code(s): I50.9 - Heart failure, unspecified
[2019-09-07 12:42] LABS: Basophils # (auto) 0.03 K/uL (0-0.2); Basophils % (auto) 0.5 %; Eosinophils # (auto) 0.29 K/uL (0-0.5); Hemoglobin 12.8 g/dL (14.0-18.0); Immature Granulocytes # (auto) 0.02 K/uL (0.00-0.02); Immature Granulocytes % (auto) 0.3 %; Lymphocytes # (auto) 1.18 K/uL (1.2-3.4); Lymphocytes % (auto) 20.5 %; Mean Corpuscular Hemoglobin 27.8 pg (25-34); Mean Corpuscular Hgb Conc 31.2 g/dL (32-36); Mean Corpuscular Volume 89.1 fL (80-100); Mean Platelet Volume 10.9 fL (7.4-10.4); Monocytes % (auto) 13.9 %; Neutrophils # (auto) 3.45 K/uL (1.4-6.5); Neutrophils % (auto) 59.8 %; Platelet Count 176 K/uL (130-400); RDW Coefficient of Variation 17.4 % (11.5-14.5); RDW Standard Deviation 56.2 fL (36.4-46.3); White Blood Count 5.77 K/uL (4.8-10.8)
--- NOTE | 2019-09-07 12:50 | XRay Report ---
XR chest 1V portable CLINICAL HISTORY: Atypical chest pain COMPARISON STUDY: 12/31/2018 FINDINGS: The heart is mildly enlarged. There is no failure. There is no focal pulmonary consolidatio n. There is an electronic device projected over the left chest possibly representing an event recorde r. There is minor blunting of the left lateral costophrenic angle.[ IMPRESSION: Stable mild cardiomegaly. No acute findings. ACT 112: Negative or not required by law. Electronically signed by: Ganesh Dimas M.D. 09/07/2019 12:48 PM
[2019-09-07 12:51] LABS: Alanine Aminotransferase 18 U/L (12-78); Albumin Level 3.8 gm/dl (3.4-5.0); Aspartate Aminotransferase 20 U/L (15-37); BUN Creatinine Ratio 15.4 (10-20); Blood Urea Nitrogen 18 mg/dl (7-18); Calcium 8.9 mg/dl (8.5-10.1); Carbon Dioxide 30 mmol/L (21-32); Chloride 107 mmol/L (98-107); Creatinine Clr Calc Pharmacy 51.1 ml/min; Est GFR (African American) 65.9; Est GFR (Non-African American) 56.9; Glucose 104 mg/dl (70-99); Lipase 71 U/L (73-393); Potassium 3.8 mmol/L (3.5-5.1); Sodium 141 mmol/L (136-145)
[2019-09-07 12:56] LABS: Alkaline Phosphatase 113 U/L (45-117); Bilirubin,Total 0.5 mg/dl (0.2-1); Total Protein 7.8 gm/dl (6.4-8.2); Troponin I < 0.015 ng/ml (0-0.045)
[2019-09-07 13:09] LABS: INR 1.1 (0.9-1.1); Partial Thromboplastin Time 28.1 Seconds (21.0-31.0); Prothrombin Time 11.7 Seconds (9.0-12.0)
[2019-09-07] MEDS ORDERED: LEVOFLOXACIN/D5W 750 MG/150 ML BAG IV SCH (14:00)
[2019-09-07 14:39] LABS: Influenza A virus by PCR Neg for Influ A (Neg); Influenza B virus by PCR Neg for Influ B (Neg)
[2019-09-07] MEDS ORDERED: ALBUTEROL 0.083% NEBU SOLN 3 ML VIAL NEB STA (15:27)
--- NOTE | 2019-09-07 16:31 | History & Physical Report ---
Date of Service September 07, 2019 Assessment & Plan (1) Shortness of breath: * Obs medical with telemetry -- ?volume overload (supposedly up 7lb from previous admission, however patient states he typically weighs 199-200lbs, 204lb this morning) vs anxiety vs infectious etiology * Will place on bumex 1mg IV BID * Serial troponins * Repeat EKG * Cardiology consult -- appreciate input * Supplemental O2 * Daily weights * I&O * Flu swab ordered * Duonebs prn * BNP ordered * Procalcitonin * CBC, BMP in AM (2) EKG abnormalities: * EKG with RBBB -- new from previous EKG. Patient reports intermittent chest pain, lasting seconds * Repeat EKG with next troponin * Cardiology consult as above * Initial trop negative -- trend (3) Atrial fibrillation, permanent: * Continue home xarelto * Continue home metoprolol 25mg BID * Repeat EKG (4) CHF (congestive heart failure): * secondary to valvular heart disease -- patient with Mild , Mild AI, Moderate MR, Moderate TR. EF 60-65% (5) Hyperlipidemia: * Continue home atorvastatin 40mg (6) Anemia: * Chronic. H/h 12.5/40.5 * Continue ferrous sulfate supplementation (7) Pulmonary hypertension: * Noted * On O2 HS -- continue * May need 2 step prior to discharge, as patient self admittidly utilized home o2 as needed (8) Chronic kidney disease, stage 3a: * Cr stable at 1.15, GFR 56.9 * Monitor BMP in AM (9) Cholelithiasis: * Hx stones. Had been admitted last year for this, but was high risk surgical candidate. No surgery was performed. * May need to consider repeat imaging if n/v/sob related to worsening GB -- LFTs wnl (10) Hyperthyroidism: * Continue methimazole * Check TSH (11) Hypertension: * Chronic. Stable * BP 150/78 * Continue home lisinopril 5mg, metoprolol 25mg BID (12) GERD (gastroesophageal reflux disease): * Chronic. Stable * Conitnue home protonix (13) Chronic obstructive pulmonary disease: * On 2L HS. Not on any home medications. Duonebs prn * May need 2step prior to d/c (14) DVT prophylaxis: * Continue xarelto History of Present Illness Chief Complaint: Shortness of Breath Primary Care Provider: Hakan Willingham 89 year old white male with PMH significant for afib (on xarelto), PSVT, HTN, Valvular Heart Disease (mod MR, mild-mod AI), CHF, non-ischemic cardiomyopathy, AAA, CKD, chronic respiratory failure (2L HS) presented to the emergency room following appointment with Cardiology for follow up regarding an inpatient stay at [facility] from 06/30-07/27 for multilobar pneumonia, acute on chronic respiratory and acute CHF exacerbation where he was found nauseous and short of breath when leaving the appointment. Patient states his shortness of breath has associated with chest pain comes and goes and lasts seconds at a time. He states his shortness of breath is made worse laying flat. Reports associated cough productive of yellow sputum as well as chills but is unaware of having a fever.. He states that it has been consistently yellow in color. He notes that he was nauseous with the shortness of breath today and he did have two episodes of emesis last evening. Denies abdominal pain or sick contacts. He states his shortness of breath has been worse over the past month, and he believes he got out of rehab about a month ago but is unsure since he has been had so much going on recently. States he wears 2L at night but states that occasionally he will use this during the day as needed. He denies being testing to see if he needs oxygen outside of at night. He does report increased anxiety in regards to recent hospitalizations. 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 Of note, he has a caregiver five days a week for a couple hours that helps him. He states he might eat breakfast and then not much for the rest of the day. He does admit to drinking more regular soda recently compared to what he had been previously despite knowing that he needs to limit his sodium intake. He states that his typical weight is usually 199-200 but goes up to 205lb. Of note, he states that for the past several months he has had issues with swallowing both liquids and solid foods, and feel that they are getting stuck, which causes him to choke and worsens his shortness of breath. He was sent by cardiology office with concerns for volume overload and continued pneumonia given shortness of breath. He states the plan was to initially change bumex to 2mg PO QAM vs the 1mg BID he had previously been taking, prior to being sent to the emergency department. ED Course: Zach x 1 in ER. CBC with WBC 5.7k, h/h 12.8/41.0, platelets 176. monocytes 0.80. INR 1.1. Na 141, K 3.8, BUN 18, Cr 1.15, trop <0.015, lipase 71. CXR with stable mild cardiomegaly, no acute findings. Allergies Allergy/AdvReac Type Severity Reaction Status Date / Time Iodinated Contrast Media Allergy Severe ANAPHYLAXIS Verified 09/07/19 14:32 Sulfa (Sulfonamide Allergy Unknown UNKNOWN Verified 09/07/19 14:32 Antibiotics) Home Medications Home Medications Medication Instructions Recorded Confirmed Type calcium citrate [Calcitrate] 200 mg PO BID 12/14/18 09/07/19 History docusate sodium [Colace] 100 mg PO BID 12/14/18 09/07/19 History diclofenac sodium [Voltaren] 4 g TOPICAL TID 12/31/18 09/07/19 History lisinopril 5 mg PO QAM 12/31/18 09/07/19 History aspirin 81 mg chewable tablet 81 mg PO DAILY tab 01/20/19 09/07/19 History atorvastatin 40 mg tablet 40 mg PO DAILY tab 01/20/19 09/07/19 History methimazole 5 mg tablet 5 mg PO DAILY tab 01/20/19 09/07/19 History metoprolol tartrate 50 mg tablet 25 mg PO BID tab 01/20/19 09/07/19 History multivitamin 1 tab PO DAILY 01/20/19 09/07/19 History pantoprazole 40 mg tablet,delayed 40 mg PO .COMPLEX 01/20/19 09/07/19 History release polyethylene glycol 3350 17 17 g PO DAILY gm 01/20/19 09/07/19 History gram/dose oral powder quetiapine 50 mg tablet 50 mg PO DAILY tab 01/20/19 09/07/19 History rivaroxaban 15 mg tablet 15 mg PO DAILY tab 01/20/19 09/07/19 History sennosides 8.6 mg tablet 17.2 mg PO DAILY PRN tab 01/20/19 09/07/19 History sertraline 50 mg tablet 50 mg PO DAILY tab 01/20/19 09/07/19 History ropinirole 0.25 mg tablet 0.25 mg PO TID 03/09/19 09/07/19 History bumetanide 1 mg tablet 2 mg PO QAM 09/07/19 09/07/19 History ferrous sulfate 325 mg (65 mg 325 mg PO BID 09/07/19 09/07/19 History iron) tablet Past Med/Surg History Medical History 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 (Chronic) Atrial fibrillation (Chronic) Cancer lYMPHOMA CHF (congestive heart failure) (Chronic) EF 25-30% (May 14) Cholelithiasis Chronic obstructive pulmonary disease (Chronic) Congestive heart failure Depression (Chronic) GERD (gastroesophageal reflux disease) (Chronic) HTN (hypertension) (Chronic) Hypertension (Chronic) Hyperthyroidism (Chronic) Lymphoma (Chronic) Pneumonia (Acute) Stroke Surgical History History of cardiac cath Family History Unknown Myocardial infarction Social History Preferred Language: Citizen Of [place] Communication Ability: Effective Visual Impairment: Partially Limited 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 Beliefs That Will Affect Care: None marital status: / Current Living Situation: Alone Current Living Situation Comment: lives at [facility] Other Information That Helps Us Care for You: No Feels Safe at Home: Yes Safety Concerns: Feels Safe At This Time Smoking Status: Former smoker Tobacco Type: cigarettes ; Do You Dip or Chew Tobacco: No ; Smoking End Date: 1944 ; Second Hand Exposure: No ; Tobacco Cessation Education Requested by Patient: No Hx Alcohol Use: No Hx Substance Use: No Review of Systems Review of Systems: All systems reviewed & are unremarkable except as noted in HPI & below Constitutional: + chills, + fatigue and + weakness; no fever Eyes: no diplopia and no problem reported Ear, Nose, Mouth, Throat: + dysphagia; no sore throat Respiratory: + cough, + chest congestion and + dyspnea on exertion Cardiovascular: + chest pain; no palpitations and no edema Gastrointestinal: + nausea and + vomiting (yesterday x 2) bloating Genitourinary: no dysuria and no urinary frequency Musculoskeletal: no back pain chronic right hip pain Integumentary: no rash and no lesions Neurologic: no syncope and no headache(s) Psychiatric: + anxiety; no hallucinations and no auditory hallucinations Endocrine: + fatigue and + polydipsia Hematologic / Lymphatic: no easy bleeding and no easy bruising Allergy / Immunological: + cough and + dyspnea Physical Exam Physical Exam: Exam as done by Pooja Garces DO: Constitutional: WD/WN, vitals as above Eyes: normal visual paulino by confrontation and + anicteric sclerae Neck: normal visual inspection and trachea midline Respiratory: normal respiratory effort, lungs clear to auscultation Cardiovascular: Rate/Rhythm: regular rate and regular rhythm Gastrointestinal (Abdomen): Inspection/Auscultation: abdomen not distended Percussion/Palpation: abdomen soft; abdomen nontender Musculoskeletal: Head/Neck/Chest: normocephalic and head atraumatic Neg for peripheral LE edema, + pedal pulses Skin: no rashes, warm and dry Neurologic: awake; not confused Speech / Cognition: normal speech Psychiatric: A+Ox3, euthymic affect Lymphatic: Exam as done by Pojoa Garces DO Results & Data Vital Signs (Past 12 Hours) Vital Signs Temp Pulse Pulse Resp BP Pulse Ox 09/07/19 15:52 67 18 97 09/07/19 14:30 67 18 145/90 H 98 09/07/19 14:00 69 24 149/104 H 97 09/07/19 13:52 67 22 153/100 H 95 09/07/19 12:34 97 09/07/19 11:30 36.3 C L 71 20 138/91 94 09/07/19 11:28 95 Laboratory Results 09/07/19 09/07/19 09/07/19 Range/Units 17:46 17:46 17:46 WBC 5.10 (4.8-10.8) K/uL RBC 4.47 L (4.7-6.1) M/uL Hgb 12.5 L (14.0-18.0) g/dL Hct 40.5 L (42-52) % MCV 90.6 (80-100) fL MCH 28.0 (25-34) pg MCHC 30.9 L (32-36) g/dL RDW Std Deviation 58.3 H (36.4-46.3) fL RDW Coeff of Jennifer 17.3 H (11.5-14.5) % Plt Count 144 (130-400) K/uL MPV 10.2 (7.4-10.4) fL Immature Gran % (Auto) % Neut % (Auto) % Lymph % (Auto) % [place] % (Auto) % Eos % (Auto) % Baso % (Auto) % Immature Gran # (Auto) (0.00-0.02) K/uL Neut # (Auto) (1.4-6.5) K/uL Lymph # (Auto) (1.2-3.4) K/uL [place] # (Auto) (0.11-0.59) K/uL Eos # (Auto) (0-0.5) K/uL Baso # (Auto) (0-0.2) K/uL PT (9.0-12.0) Seconds INR (0.9-1.1) APTT (21.0-31.0) Seconds PTT Ratio Sodium (136-145) mmol/L Potassium (3.5-5.1) mmol/L Chloride (98-107) mmol/L Carbon Dioxide (21-32) mmol/L Anion Gap (3-11) BUN (7-18) mg/dl Creatinine (0.6-1.4) mg/dl Est Cr Clr Drug Dosing ml/min Est GFR ( Amer) Est GFR (Non-Af Amer) BUN/Creatinine Ratio (10-20) Glucose (70-99) mg/dl POC Glucose (70-99) mg/dl Calcium (8.5-10.1) mg/dl Total Bilirubin (0.2-1) mg/dl AST (15-37) U/L ALT (12-78) U/L Alkaline Phosphatase (45-117) U/L Troponin I < 0.015 (0-0.045) ng/ml NT-Pro-B Natriuret Pep (0-1800) pg/ml Total Protein (6.4-8.2) gm/dl Albumin (3.4-5.0) gm/dl Globulin (2.5-4.0) gm/dl Albumin/Globulin Ratio (0.9-2) Lipase (73-393) U/L Procalcitonin Pending Influenza Type A (PCR) (Neg) Influenza Type B (PCR) (Neg) 09/07/19 09/07/19 09/07/19 Range/Units 17:05 13:50 12:46 WBC (4.8-10.8) K/uL RBC (4.7-6.1) M/uL Hgb (14.0-18.0) g/dL Hct (42-52) % MCV (80-100) fL MCH (25-34) pg MCHC (32-36) g/dL RDW Std Deviation (36.4-46.3) fL RDW Coeff of Jennifer (11.5-14.5) % Plt Count (130-400) K/uL MPV (7.4-10.4) fL Immature Gran % (Auto) % Neut % (Auto) % Lymph % (Auto) % [place] % (Auto) % Eos % (Auto) % Baso % (Auto) % Immature Gran # (Auto) (0.00-0.02) K/uL Neut # (Auto) (1.4-6.5) K/uL Lymph # (Auto) (1.2-3.4) K/uL [place] # (Auto) (0.11-0.59) K/uL Eos # (Auto) (0-0.5) K/uL Baso # (Auto) (0-0.2) K/uL PT 11.7 (9.0-12.0) Seconds INR 1.1 (0.9-1.1) APTT 28.1 (21.0-31.0) Seconds PTT Ratio 1.0 Sodium (136-145) mmol/L Potassium (3.5-5.1) mmol/L Chloride (98-107) mmol/L Carbon Dioxide (21-32) mmol/L Anion Gap (3-11) BUN (7-18) mg/dl Creatinine (0.6-1.4) mg/dl Est Cr Clr Drug Dosing ml/min Est GFR ( Amer) Est GFR (Non-Af Amer) BUN/Creatinine Ratio (10-20) Glucose (70-99) mg/dl POC Glucose 91 (70-99) mg/dl Calcium (8.5-10.1) mg/dl Total Bilirubin (0.2-1) mg/dl AST (15-37) U/L ALT (12-78) U/L Alkaline Phosphatase (45-117) U/L Troponin I (0-0.045) ng/ml NT-Pro-B Natriuret Pep (0-1800) pg/ml Total Protein (6.4-8.2) gm/dl Albumin (3.4-5.0) gm/dl Globulin (2.5-4.0) gm/dl Albumin/Globulin Ratio (0.9-2) Lipase (73-393) U/L Procalcitonin Influenza Type A (PCR) Neg for Influ A (Neg) Influenza Type B (PCR) Neg for Influ B (Neg) 09/07/19 09/07/19 09/07/19 Range/Units 11:02 11:02 11:02 WBC 5.77 (4.8-10.8) K/uL RBC 4.60 L (4.7-6.1) M/uL Hgb 12.8 L (14.0-18.0) g/dL Hct 41.0 L (42-52) % MCV 89.1 (80-100) fL MCH 27.8 (25-34) pg MCHC 31.2 L (32-36) g/dL RDW Std Deviation 56.2 H (36.4-46.3) fL RDW Coeff of Jennifer 17.4 H (11.5-14.5) % Plt Count 176 (130-400) K/uL MPV 10.9 H (7.4-10.4) fL Immature Gran % (Auto) 0.3 % Neut % (Auto) 59.8 % Lymph % (Auto) 20.5 % [place] % (Auto) 13.9 % Eos % (Auto) 5.0 % Baso % (Auto) 0.5 % Immature Gran # (Auto) 0.02 (0.00-0.02) K/uL Neut # (Auto) 3.45 (1.4-6.5) K/uL Lymph # (Auto) 1.18 L (1.2-3.4) K/uL [place] # (Auto) 0.80 H (0.11-0.59) K/uL Eos # (Auto) 0.29 (0-0.5) K/uL Baso # (Auto) 0.03 (0-0.2) K/uL PT (9.0-12.0) Seconds INR (0.9-1.1) APTT (21.0-31.0) Seconds PTT Ratio Sodium 141 (136-145) mmol/L Potassium 3.8 (3.5-5.1) mmol/L Chloride 107 (98-107) mmol/L Carbon Dioxide 30 (21-32) mmol/L Anion Gap 4.0 (3-11) BUN 18 (7-18) mg/dl Creatinine 1.15 (0.6-1.4) mg/dl Est Cr Clr Drug Dosing 51.1 ml/min Est GFR ( Amer) 65.9 Est GFR (Non-Af Amer) 56.9 BUN/Creatinine Ratio 15.4 (10-20) Glucose 104 H (70-99) mg/dl POC Glucose (70-99) mg/dl Calcium 8.9 (8.5-10.1) mg/dl Total Bilirubin 0.5 (0.2-1) mg/dl AST 20 (15-37) U/L ALT 18 (12-78) U/L Alkaline Phosphatase 113 (45-117) U/L Troponin I < 0.015 (0-0.045) ng/ml NT-Pro-B Natriuret Pep 1259 (0-1800) pg/ml Total Protein 7.8 (6.4-8.2) gm/dl Albumin 3.8 (3.4-5.0) gm/dl Globulin 4.0 (2.5-4.0) gm/dl Albumin/Globulin Ratio 1.0 (0.9-2) Lipase 71 L (73-393) U/L Procalcitonin Influenza Type A (PCR) (Neg) Influenza Type B (PCR) (Neg) Diagnostic Findings CXR IMPRESSION: Stable mild cardiomegaly. No acute findings. Code Status & VTE Plan Code Status 5 Supervising Physician Co-Signing Physician Notes Pt seen and examined by me. SOB and chest pain as noted above. He states he is hungry and has not eaten since yesterday. Per nursing, pt did tolerate some applesauce, but had coughing/choking with ice chips. Agree with HPI/ROS as noted by PA See above for my exam in PE section Agree with plan as outlined above CHF noted Flu neg Abn EKG, repeat pending, trops Speech radhames Can have supervised bites of applesauce as he did ok with those per nursing earlier and is pleading for something to eat with me PG Care Time/CCT Total # of Minutes Spent Total Time Spent with Patient: Total time spent is greater than 50% in coordination of care (as documented) at patient's floor/unit and/or counseling patient: Coding Level of Care Code 41648 OBS Care - Level 3 Diagnoses Shortness of breath R06.02 EKG abnormalities R94.31 Atrial fibrillation, permanent I48.21 CHF (congestive heart failure) I50.9 Heart failure chronicity: unspecified Heart failure type: unspecified Hyperlipidemia E78.5 Anemia D64.9 Pulmonary hypertension I27.20 Chronic kidney disease, stage 3a N18.3 Cholelithiasis K80.20 Biliary obstruction: without biliary obstruction Cholecystitis presence: without cholecystitis Cholelithiasis location: gallbladder Hyperthyroidism E05.90 Hypertension I10 GERD (gastroesophageal reflux disease) K21.9 Chronic obstructive pulmonary disease J41.0 COPD type: chronic bronchitis Chronic bronchitis type: simple DVT prophylaxis Z29.9 (1) CHF (congestive heart failure) Heart failure chronicity: unspecified Heart failure type: unspecified Qualified Code(s): I50.9 - Heart failure, unspecified (2) Chronic obstructive pulmonary disease COPD type: chronic bronchitis Chronic bronchitis type: simple Qualified Code(s): J41.0 - Simple chronic bronchitis (3) Cholelithiasis Biliary obstruction: without biliary obstruction Cholecystitis presence: without cholecystitis Cholelithiasis location: gallbladder Qualified Code(s): K80.20 - Calculus of gallbladder without cholecystitis without obstruction
--- NOTE | 2019-09-07 17:03 | Electrocardiogram Report ---
Test Reason : Blood Pressure : / mmHG Vent. Rate : 070 BPM Atrial Rate : 076 BPM P-R Int : 000 ms QRS Dur : 162 ms QT Int : 480 ms P-R-T Axes : 000 071 -05 degrees QTc Int : 518 ms Atrial fibrillation Right bundle branch block Abnormal ECG When compared with ECG of 01-JAN-2019 09:12, Right bundle branch block is now Present Confirmed by Toan Garcia ([id number]) on 09/07/2019 5:02:55 PM Referred By: SELF Confirmed By:Toan Garcia
[2019-09-07] MEDS ORDERED: NITROGLYCERIN SL 0.4 MG/TAB TAB SL PRN (17:28)
[2019-09-07] MEDS ORDERED: ALBUT/IPRATROP 3MG/0.5MG NEB 3 ML VIAL NEB PRN (17:28)
[2019-09-07] MEDS ORDERED: SENNA 8.6 MG TAB PO PRN (17:28)
[2019-09-07] MEDS ORDERED: ACETAMINOPHEN 325 MG TAB PO PRN (17:28)
[2019-09-07] MEDS ORDERED: ONDANSETRON INJ 2 MG/ML 2 ML VIAL IV PRN (17:28)
[2019-09-07 17:55] LABS: Hematocrit (blood only) 40.5 % (42-52); Hemoglobin 12.5 g/dL (14.0-18.0); Mean Corpuscular Hgb Conc 30.9 g/dL (32-36); Mean Corpuscular Volume 90.6 fL (80-100); Mean Platelet Volume 10.2 fL (7.4-10.4); Platelet Count 144 K/uL (130-400); RDW Coefficient of Variation 17.3 % (11.5-14.5); RDW Standard Deviation 58.3 fL (36.4-46.3); Red Blood Count 4.47 M/uL (4.7-6.1)
[2019-09-07] MEDS: DOCUSATE SODIUM 100 MG CAP PO SCH (18:51)
[2019-09-07] MEDS: FERROUS SULFATE 325 MG TAB PO SCH (18:51)
[2019-09-07] MEDS: CALCIUM CITRATE 950 MG TAB PO SCH (18:56)
[2019-09-07] MEDS: RIVAROXABAN 15 MG TAB PO SCH (18:56)
[2019-09-07] MEDS: BUMETANIDE 1 MG in SYRINGE 0 ML IV SCH (18:58)
[2019-09-07 20:20] LABS: Appearance Urine Clear (Clear); Bilirubin Urine Negative (Negative); Blood Urine Negative (Negative); Color Urine Yellow; Glucose Urine UA Negative (Negative); Ketones Urine Negative (Negative); Leukocyte Esterase Urine Negative (Negative); Nitrite Urine Negative (Negative); Protein Urine Negative (Negative); Urobilinogen Urine Negative (Negative); pH Urine 5.5 (4.5-7.5)
[2019-09-07] MEDS ORDERED: ROPINIROLE HCL 0.25 MG TABLET PO SCH ×2 (21:00)
[2019-09-07] MEDS: DICLOFENAC SOD 1% GEL 100 GM TUBE EXT SCH (21:18)
[2019-09-07] MEDS: METOPROLOL TARTRATE 25 MG TAB PO SCH (21:18)
[2019-09-08 07:32] LABS: Basophils # (auto) 0.02 K/uL (0-0.2); Basophils % (auto) 0.4 %; Eosinophils # (auto) 0.22 K/uL (0-0.5); Hematocrit (blood only) 42.1 % (42-52); Hemoglobin 13.2 g/dL (14.0-18.0); Immature Granulocytes # (auto) 0.01 K/uL (0.00-0.02); Immature Granulocytes % (auto) 0.2 %; Lymphocytes # (auto) 1.15 K/uL (1.2-3.4); Lymphocytes % (auto) 20.7 %; Mean Corpuscular Hgb Conc 31.4 g/dL (32-36); Mean Corpuscular Volume 89.2 fL (80-100); Mean Platelet Volume 10.2 fL (7.4-10.4); Monocytes # (auto) 0.64 K/uL (0.11-0.59); Monocytes % (auto) 11.5 %; Neutrophils # (auto) 3.51 K/uL (1.4-6.5); Neutrophils % (auto) 63.2 %; Platelet Count 153 K/uL (130-400); RDW Standard Deviation 55.8 fL (36.4-46.3); Red Blood Count 4.72 M/uL (4.7-6.1); White Blood Count 5.55 K/uL (4.8-10.8)
[2019-09-08 08:13] LABS: Albumin Level 3.6 gm/dl (3.4-5.0); Calcium 9.2 mg/dl (8.5-10.1); Creatinine Clr Calc Pharmacy 52.5 ml/min; Est GFR (African American) 68.1; Est GFR (Non-African American) 58.7; Potassium 4.2 mmol/L (3.5-5.1)
[2019-09-08] MEDS: FERROUS SULFATE 325 MG TAB PO SCH ×2 (08:15→17:17)
[2019-09-08] MEDS: CALCIUM CITRATE 950 MG TAB PO SCH ×2 (08:15→17:17)
[2019-09-08] MEDS: DOCUSATE SODIUM 100 MG CAP PO SCH (08:15)
[2019-09-08] MEDS: BUMETANIDE 1 MG in SYRINGE 0 ML IV SCH ×2 (08:15→17:16)
[2019-09-08] MEDS: DICLOFENAC SOD 1% GEL 100 GM TUBE EXT SCH ×2 (08:15→13:24)
[2019-09-08 08:16] LABS: Albumin Globulin Ratio 0.9 (0.9-2); Bilirubin,Total 0.8 mg/dl (0.2-1); Globulin 3.8 gm/dl (2.5-4.0); Total Protein 7.4 gm/dl (6.4-8.2)
[2019-09-08 08:51] LABS: Estimated Average Glucose 134 mg/dl; Hemoglobin A1C 6.3 % (4.5-5.6)
[2019-09-08] MEDS ORDERED: QUETIAPINE FUMARATE 25 MG TABLET PO SCH (09:00)
[2019-09-08] MEDS ORDERED: lisinopriL 5 MG TAB PO SCH (09:00)
[2019-09-08] MEDS ORDERED: SERTRALINE HCL 50 MG TABLET PO SCH (09:00)
[2019-09-08] MEDS ORDERED: POLYETHYLENE (MIRALAX) 17 GM PACK PO SCH (09:00)
[2019-09-08] MEDS ORDERED: ASPIRIN 81 MG ECTAB PO SCH (09:00)
[2019-09-08] MEDS ORDERED: MULTIVITAMIN TAB PO SCH (09:00)
[2019-09-08] MEDS ORDERED: methIMAzole 5 MG TABLET PO SCH (09:00)
[2019-09-08] MEDS ORDERED: PANTOprazole 40 MG TAB PO SCH (09:00)
[2019-09-08] MEDS ORDERED: ATORVASTATIN 40 MG TAB PO SCH (09:00)
--- NOTE | 2019-09-08 09:59 | Cardiology Progress Note ---
Date of Service September 08, 2019 Assessment & Plan (1) Diastolic CHF: (2) Atrial fibrillation, permanent: (3) Pulmonary hypertension: (4) Paroxysmal ventricular tachycardia: (5) SOB (shortness of breath): (6) Hypertension: ASSESSMENT/PLAN: 1. Shortness of breath: CXR shows no acute findings. Labs are unremarkable including cardiac enzymes and pro-BNP. ECG shows atrial fibrillation with well controlled rate, RBBB, and nonspecific T wave abnormality. He has been treated with nebulizers and IV antibiotic therapy. He is also receiving IV Bumex. With these interventions, he has noted an improvement in his breathing today. He currently does not appear hypervolemic on exam, although can continue to diurese with IV diuretic therapy until there is a rise in his BUN/Creatinine. His presentation does not appear secondary to an acute coronary syndrome and would not pursue additional ischemic evaluation at this time. 2. Atrial fibrillation: Permanent. Rate is well controlled. Continue metoprolol for rate control. Continue Xarelto for stroke prophylaxis. 3. Hypertension: BP has been well controlled. 4. Chronic diastolic CHF: He does not appear hypervolemic on exam, but can continue to diurese as long as renal function is stable. Close monitoring of I's&O's. Daily weights. Low sodium diet. Patient seen and discussed with Dr. Rowland. Admission and Anticipated Discharge Date Admission Date: September 07, 2019 Subjective Mr. 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 Patient was admitted to [facility] from 06/30/19 - 07/27/19 with multi-lobar pneumonia, acute on chronic respiratory failure, and an exacerbation of diastolic CHF. He was being seen for hospital follow-up by Trevon Kelsey PA-C yesterday, and at that time, he continued to note exertional dyspnea, productive cough, and chills. He had been intermittently using his supplemental oxygen during the day time, instead of his typical nighttime use only. His weight was also up about 7 lbs at that time. He was advised by Trevon to change his Bumex dosing from 1 mg BID to 2 mg daily for better diuretic effect. As he was leaving the appointment, he became acutely dyspneic after walking 30 feet. He also noted nausea but no vomiting. EMS was called, and he was brought to [facility]. He was given a nebulizer treatment, aspirin, and IV Levaquin in the ER and was then admitted for observation. He is now also receiving IV Bumex 1 mg BID. His biggest complaint this morning is that he is hungry. He has not eaten since Wednesday, and he is now rather hunger. He has some abdominal discomfort, which he believes is due to his hunger. He believes his breathing has improved since yesterday. He has not been up ambulating yet, though. He did not sleep in bed last night as his bed was rather uncomfortable for him. He spent the night in his chair and did not sleep much. He has not noted any lower extremity edema. He denies chest pain, syncope, or presyncope. He denies abnormal bleeding such as melena, hematochezia, or hematuria. He denies cerebrovascular symptoms. Review of Systems Review of Systems: As noted in HPI. All other ROS are reviewed and otherwise negative at this time. Physical Exam Physical Exam: Constitutional: Alert, oriented, in no acute distress HEENT: Head is atraumatic and normocephalic. EOMs intact. Sclera non-icteric. Face is symmetric. No perioral cyanosis. Mucous membranes moist Neck: Supple, no appreciable JVD Pulmonary: Normal respiratory effort, diminished breath sounds throughout but otherwise clear to auscultation Cardiac: Irregularly irregular, normal S1 and S2, no gallops, no rubs, 2/6 apical holosystolic murmur Extremities: No edema. No clubbing or cyanosis. Pulses 2+ and symmetric Abdomen: Normal bowel sounds, soft, non-tender, no abdominal masses palpated Skin: Normal skin color, turgor, and pigmentation. No rash or skin lesions Neurological: Oriented to person, place, and time Results & Data ([facility]) Vital Signs (Past 12 Hours) Vital Signs Temp Pulse Resp BP Pulse Ox 09/08/19 07:55 98.1 F 55 L 18 116/76 92 09/08/19 03:52 97.5 F L 53 L 18 118/73 97 09/07/19 23:00 98.2 F 69 18 120/73 94 Laboratory Results Laboratory Results WBC 5.55 K/uL (4.8-10.8) 09/08/19 07:02 RBC 4.72 M/uL (4.7-6.1) 09/08/19 07:02 Hgb 13.2 g/dL (14.0-18.0) L 09/08/19 07:02 Hct 42.1 % (42-52) 09/08/19 07:02 MCV 89.2 fL (80-100) 09/08/19 07:02 MCH 28.0 pg (25-34) 09/08/19 07:02 MCHC 31.4 g/dL (32-36) L 09/08/19 07:02 RDW Std Deviation 55.8 fL (36.4-46.3) H 09/08/19 07:02 RDW Coeff of Jennifer 17.0 % (11.5-14.5) H 09/08/19 07:02 Plt Count 153 K/uL (130-400) 09/08/19 07:02 MPV 10.2 fL (7.4-10.4) 09/08/19 07:02 Immature Gran % (Auto) 0.2 % 09/08/19 07:02 Neut % (Auto) 63.2 % 09/08/19 07:02 Lymph % (Auto) 20.7 % 09/08/19 07:02 [place] % (Auto) 11.5 % 09/08/19 07:02 Eos % (Auto) 4.0 % 09/08/19 07:02 Baso % (Auto) 0.4 % 09/08/19 07:02 Immature Gran # (Auto) 0.01 K/uL (0.00-0.02) 09/08/19 07:02 Neut # (Auto) 3.51 K/uL (1.4-6.5) 09/08/19 07:02 Lymph # (Auto) 1.15 K/uL (1.2-3.4) L 09/08/19 07:02 [place] # (Auto) 0.64 K/uL (0.11-0.59) H 09/08/19 07:02 Eos # (Auto) 0.22 K/uL (0-0.5) 09/08/19 07:02 Baso # (Auto) 0.02 K/uL (0-0.2) 09/08/19 07:02 PT 11.7 Seconds (9.0-12.0) 09/07/19 12:46 INR 1.1 (0.9-1.1) 09/07/19 12:46 APTT 28.1 Seconds (21.0-31.0) 09/07/19 12:46 PTT Ratio 1.0 09/07/19 12:46 Sodium 141 mmol/L (136-145) 09/08/19 07:02 Potassium 4.2 mmol/L (3.5-5.1) 09/08/19 07:02 Chloride 106 mmol/L (98-107) 09/08/19 07:02 Carbon Dioxide 31 mmol/L (21-32) 09/08/19 07:02 Anion Gap 4.0 (3-11) 09/08/19 07:02 BUN 19 mg/dl (7-18) H 09/08/19 07:02 Creatinine 1.12 mg/dl (0.6-1.4) 09/08/19 07:02 Est Cr Clr Drug Dosing 52.5 ml/min 09/08/19 07:02 Est GFR ( Amer) 68.1 09/08/19 07:02 Est GFR (Non-Af Amer) 58.7 09/08/19 07:02 BUN/Creatinine Ratio 15.4 (10-20) 09/07/19 11:02 Glucose 104 mg/dl (70-99) H 09/07/19 11:02 POC Glucose 114 mg/dl (70-99) H 09/07/19 20:22 Fasting Glucose 100 mg/dl (70-99) H 09/08/19 07:02 Estimat Average Glucose 134 mg/dl 09/08/19 07:02 Hemoglobin A1c 6.3 % (4.5-5.6) H 09/08/19 07:02 Calcium 9.2 mg/dl (8.5-10.1) 09/08/19 07:02 Total Bilirubin 0.8 mg/dl (0.2-1) 09/08/19 07:02 AST 20 U/L (15-37) 09/08/19 07:02 ALT 17 U/L (12-78) 09/08/19 07:02 Alkaline Phosphatase 117 U/L (45-117) 09/08/19 07:02 Troponin I < 0.015 ng/ml (0-0.045) 09/07/19 23:23 NT-Pro-B Natriuret Pep 1259 pg/ml (0-1800) 09/07/19 11:02 Total Protein 7.4 gm/dl (6.4-8.2) 09/08/19 07:02 Albumin 3.6 gm/dl (3.4-5.0) 09/08/19 07:02 Globulin 3.8 gm/dl (2.5-4.0) 09/08/19 07:02 Albumin/Globulin Ratio 0.9 (0.9-2) 09/08/19 07:02 Lipase 71 U/L (73-393) L 09/07/19 11:02 Procalcitonin < 0.05 ng/ml (0-0.5) 09/07/19 17:46 Urine Color Yellow 09/07/19 19:45 Urine Appearance Clear (Clear) 09/07/19 19:45 Urine pH 5.5 (4.5-7.5) 09/07/19 19:45 Ur Specific [place] 1.020 (1.000-1.030) 09/07/19 19:45 Urine Protein Negative (Negative) 09/07/19 19:45 Urine Glucose (UA) Negative (Negative) 09/07/19 19:45 Urine Ketones Negative (Negative) 09/07/19 19:45 Urine Blood Negative (Negative) 09/07/19 19:45 Urine Nitrite Negative (Negative) 09/07/19 19:45 Urine Bilirubin Negative (Negative) 09/07/19 19:45 Urine Urobilinogen Negative (Negative) 09/07/19 19:45 Ur Leukocyte Esterase Negative (Negative) 09/07/19 19:45 Influenza Type A (PCR) Neg for Influ A (Neg) 09/07/19 13:50 Influenza Type B (PCR) Neg for Influ B (Neg) 09/07/19 13:50 Diagnostic Findings CXR: Stable mild cardiomegaly. No acute findings. Telemetry: Atrial fibrillation with IVCD. Rates primarily in the 70s. He briefly dropped down to the 30s overnight. ECG 09/07/19: Atrial fibrillation. RBBB. ECG 09/08/19: Atrial fibrillation. RBBB. Nonspecific T wave abnormality. PG Care Time/CCT Total # of Minutes Spent Total Time Spent with Patient: Total time spent is greater than 50% in coordination of care (as documented) at patient's floor/unit and/or counseling patient: Coding Level of Care Code 85896 Subseq Obs Care Lvl 3 Diagnoses Diastolic CHF I50.30 Atrial fibrillation, permanent I48.21 Pulmonary hypertension I27.20 Paroxysmal ventricular tachycardia I47.2 SOB (shortness of breath) R06.02 Hypertension I10
[2019-09-08] MEDS: METOPROLOL TARTRATE 25 MG TAB PO SCH (10:45)
--- NOTE | 2019-09-08 11:41 | Fluoroscopy Report ---
FL barium swallow CLINICAL HISTORY: 89 years-old Male presenting with suspected esophageal dysfunction, dysphagia with solids and pills sticking in the upper esophagus, nausea and vomiting, reflux, heartburn. TECHNIQUE: A routine air-contrast (double contrast) barium esophagram was performed. Multiple spot im ages of the esophagus were acquired both upright and prone. COMPARISON: None. FINDINGS: Ingestion: The patient was able to ingest barium and the barium pill without difficulty. Aspiration: Pharyngeal penetration above the level of the vocal folds noted. No aspiration. Esophageal mucosa: Normal. No evidence of intrinsic or extrinsic mass lesion. Esophageal motility: Ineffective secondary contractions along with tertiary contractions consistent w ith dysmotility. Incomplete clearance of contrast from the esophagus. Esophageal length: Normal. Gastroesophageal junction: Normal distensibility of the GE junction. Small to moderate sliding type h iatal hernia. Reflux: Limited assessment for reflux as there was persistent contrast in the esophagus due to dysmot ility. Gastric emptying: Not evaluated. Fluoroscopy dosage (mGy): Not available. Fluoroscopy time: 1.3 minutes. Number or time of high level fluoroscopy (HLF), digital spot, or digital subtraction images: 27. IMPRESSION: 1. Small to moderate sliding-type hiatal hernia. 2. 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 3. Due to esophageal dysmotility and incomplete clearance of contrast from esophagus, evaluation for gastroesophageal reflux could not be made. 4. Normal passage of the barium pill without evidence of holdup or obstruction. 5. No gross evidence of an esophageal mass. ACT 112: Negative or not required by law. Electronically signed by: Klever Ramos M.D. 09/08/2019 11:40 AM
--- NOTE | 2019-09-08 11:56 | Fluoroscopy Report ---
FL video swallow CLINICAL HISTORY: 89 years-old Male with Assess for aspiration . Acute dysphasia TECHNIQUE: Video fluoroscopic evaluation of swallowing was performed in the AP and lateral projection s by the speech pathology staff. The patient is fed nectar-thick and thin liquid barium, a barium coa dev wafer, and barium pudding. FLUOROSCOPY TIME: 1.9 minutes. COMPARISON STUDY: Esophagram of same day, chest CT 12/17/2018 FINDINGS: Penetration without aspiration noted with thin liquid barium and nectar thick liquid. No de finite aspiration identified on the study. Distal esophageal dysmotility. There is mild retention wit hin the vallecula throughout the exam. Slightly prolonged oropharyngeal transit is likely secondary t o edentulous status.. IMPRESSION: 1. Penetration without aspiration as above. 2. Please see the speech pathologist report for detailed findings and recommendations. ACT 112: Positive. There are findings on this exam that require communication between the performing entity and the patient following Patient Test Result Information Act ([place] Act 112) guidelines. Electronically signed by: Troy Calzada M.D. 09/08/2019 11:55 AM
--- NOTE | 2019-09-08 15:41 | Discharge Summary ---
Date of Service September 08, 2019 Admission HPI Per Admitting Provider 89 year old white male with PMH significant for afib (on xarelto), PSVT, HTN, Valvular Heart Disease (mod MR, mild-mod AI), CHF, non-ischemic cardiomyopathy, AAA, CKD, chronic respiratory failure (2L HS) presented to the emergency room following appointment with Cardiology for follow up regarding an inpatient stay at [facility] from 06/30-07/27 for multilobar pneumonia, acute on chronic respiratory and acute CHF exacerbation where he was found nauseous and short of breath when leaving the appointment. Patient states his shortness of breath has associated with chest pain comes and goes and lasts seconds at a time. He states his shortness of breath is made worse laying flat. Reports associated cough productive of yellow sputum as well as chills but is unaware of having a fever.. He states that it has been consistently yellow in color. He notes that he was nauseous with the shortness of breath today and he did have two episodes of emesis last evening. Denies abdominal pain or sick contacts. He states his shortness of breath has been worse over the past month, and he believes he got out of rehab about a month ago but is unsure since he has been had so much going on recently. States he wears 2L at night but states that occasionally he will use this during the day as needed. He denies being testing to see if he needs oxygen outside of at night. He does report increased anxiety in regards to recent hospitalizations. He states he almost didn't feel like going to his appointment with his multifocal lens assembler today because he has felt so worn down. Of note, he has a caregiver five days a week for a couple hours that helps him. He states he might eat breakfast and then not much for the rest of the day. He does admit to drinking more regular soda recently compared to what he had been previously despite knowing that he needs to limit his sodium intake. He states that his typical weight is usually 199-200 but goes up to 205lb. Of note, he states that for the past several months he has had issues with swallowing both liquids and solid foods, and feel that they are getting stuck, which causes him to choke and worsens his shortness of breath. He was sent by cardiology office with concerns for volume overload and continued pneumonia given shortness of breath. He states the plan was to initially change bumex to 2mg PO QAM vs the 1mg BID he had previously been taking, prior to being sent to the emergency department. ED Course: Levaquin x 1 in ER. CBC with WBC 5.7k, h/h 12.8/41.0, platelets 176. monocytes 0.80. INR 1.1. Na 141, K 3.8, BUN 18, Cr 1.15, trop <0.015, lipase 71. CXR with stable mild cardiomegaly, no acute findings. Admission Exam Per Admitting Provider Physical Exam: Exam as done by Pooja Garces DO: Constitutional: WD/WN, vitals as above Eyes: normal visual paulino by confrontation and + anicteric sclerae Neck: normal visual inspection and trachea midline Respiratory: normal respiratory effort, lungs clear to auscultation Cardiovascular: Rate/Rhythm: regular rate and regular rhythm Gastrointestinal (Abdomen): Inspection/Auscultation: abdomen not distended Percussion/Palpation: abdomen soft; abdomen nontender Musculoskeletal: Head/Neck/Chest: normocephalic and head atraumatic Neg for peripheral LE edema, + pedal pulses Skin: no rashes, warm and dry Neurologic: awake; not confused Speech / Cognition: normal speech Psychiatric: A+Ox3, euthymic affect Lymphatic: Exam as done by Pooja Garces DO Principal Diagnosis Shortness of Breath Discharge Exam Constitutional WD/WN, vitals as above no acute distress Eyes + anicteric sclerae; no scleral abnormality ENMT external ear and nose normal, oropharynx normal Neck trachea midline, no thyromegaly Respiratory normal respiratory effort, lungs clear to auscultation Cardiovascular RRR, no murmur, no edema Gastrointestinal (Abdomen) normal bowel sounds, soft, nontender, no hepatosplenomegaly Musculoskeletal no cyanosis or clubbing, extremities motor strength 5/5 Skin no rashes, warm and dry Neurologic PERRL, EOMI, accommodation nl, no face palsy, no dysarthria Psychiatric Orientation: alert, oriented to person, oriented to place and cooperative Lymphatic no cervical or axillary lymphadenopathy Discharge Data Allergies Allergy/AdvReac Type Severity Reaction Status Date / Time Iodinated Contrast Media Allergy Severe ANAPHYLAXIS Verified 09/07/19 14:32 Sulfa (Sulfonamide Allergy Unknown UNKNOWN Verified 09/07/19 14:32 Antibiotics) Consultations 09/07/19 13:46 ED Decision to Admit Stat 09/07/19 17:28 Consult Cardiology Routine Consult Case Management - Discharge Planning Routine 09/07/19 18:34 Consult Health Information Management Routine Ordered Studies 09/07 CXR 09/08/19 11:15 FL barium swallow Routine 09/08/19 11:30 FL video swallow Routine Hospital Course (1) Shortness of breath: * Obs medical with telemetry -- ?volume overload (supposedly up 7lb from previous admission, however typically weighs 199-200lbs, 204lb this morning) vs anxiety * Given Bumex IV BID, Troponins negative x 3. Cardiology consulted. Duonebs * Procalcitonin negative. BNP 1259 * Swallow eval for dysphagia -- patient to be on slippery diet for esophageal dysmotility. No evidence of aspiration. * 2 step performed prior to d/c --> patient without needs for o2 with ambulation * Patient adamant about being discharged as he was without CP or SOB and stable on RA. Afebrile. No elevation in WBC * Discharged on changed bumex (2mg PO QAM as changed by Trevon Kelsey at office visit) (2) EKG abnormalities: * EKG with RBBB -- new from previous EKG. Patient reported intermittent chest pain, lasting seconds. * Repeat EKG with afib, RBB -- patient asymptomatic * Troponin negative x 3 * Cardiology consulted -- no changes noted * Rec follow up with cardiology outpatient in next week (3) Atrial fibrillation, permanent: * Continued home xarelto * Continued home metoprolol 25mg BID * Repeated EKG as above (4) CHF (congestive heart failure): * secondary to valvular heart disease -- patient with Mild , Mild AI, Moderate MR, Moderate TR. EF 60-65% (5) Hyperlipidemia: * Continued home atorvastatin 40mg (6) Anemia: * Chronic. H/h 12.5/40.5 * Continue ferrous sulfate supplementation (7) Pulmonary hypertension: * Noted * On O2 HS -- continue * 2 step prior to d/c without need for o2 with ambulation (8) Chronic kidney disease, stage 3a: * Cr improved to 1.12. Has been 1.1-1.6 over last year. GFR 56.9 (9) Cholelithiasis: * Hx stones. Had been admitted last year for this, but was high risk surgical candidate. No surgery was performed. * Asymptomatic (10) Hyperthyroidism: * Continue methimazole. TSH 1.06 (11) Hypertension: * Chronic. Stable * BP 116/76 * Continued home lisinopril 5mg, metoprolol 25mg BID (12) GERD (gastroesophageal reflux disease): * Chronic. Stable * Conitnued home protonix (13) Chronic obstructive pulmonary disease: * On 2L HS. Not on any home medications. Duonebs prn * 2step without o2 need (14) DVT prophylaxis: * Continued xarelto Evaluated by PT prior to d/c -- patient at baseline function. Discharged home vis w/c van via CM. Total Time Total Time Spent Total Time Spent (In Minutes): 50 Discharge Plan Discharge Items Patient Disposition: Home - Self-Care Reason For Visit: SHORTNESS OF BREATH,VOLUME OVERLOAD Discharge Diagnosis: Shortness of Breath Condition on Discharge: Fair Goals: You have been hospitalized for an acute medical problem. During your stay at [facility], we have made an effort to correct the problem that brought you to the hospital while keeping you as comfortable as possible. Medications were used to bring your condition under control and your discharge instructions will include directions for any medications you should take after leaving the hospital. Please make sure you see your Primary Care Provider as part of your follow up plan. Activity: Resume your previous activity Non-emergency contact: Primary Care Provider and Switch Repairer Call non-emergency contact if: you have any medication questions, your symptoms worsen and you have a fever Follow-up/Referrals: Trevon Kelsey PA-C [Physician Self Contained Behavior Unit Teacher] - Hakan Willingham [Primary Care Provider] - Diet: Heart Healthy Fluids: 1500ml (6 cups) Diet Comment: SLIPPERY Addtl Attending Provider Instructions: You have been hospitalized for shortness of breath and possible volume overload. You had a swallowing study performed which showed esophageal dysmotility (issues with your muscles that help you to swallow) but did not show any aspiration. It is recommended that you utilize a slippery diet and make sure not to eat any dry/hardened items as these increase your risk of aspiration and choking. You should continue to use oxygen at night at a rate of 2 liters. You were evaluated to see if you needed to use oxygen with ambulation and it has been determine that you do not need any at this time. Please follow up with your primary care provider in the next week. Your A1c was 6.3, which is termed pre-diabetes. This is essentially unchanged from 2018. Follow up with cardiology as needed. Please return to the closest emergency room if you develop any chest pain, worsening shortness of breath, increasing edema or for any symptoms that are concerning for you. It has been a pleasure being a part of the medical team providing for you during your hospitalization. Take care! Pending Studies at Discharge: No Stand-Alone Forms: My [facility] Medications and DC Order Prescriptions: Continued bumetanide 1 mg tablet 2 mg PO QAM RF: 0 ferrous sulfate 325 mg (65 mg iron) tablet 325 mg PO BID RF: 0 metoprolol tartrate 50 mg tablet 25 mg PO BID RF: 0 polyethylene glycol 3350 17 gram/dose powder 17 g PO DAILY RF: 0 multivitamin [Daily Multi-Vitamin] tablet 1 tab PO DAILY RF: 0 sennosides 8.6 mg tablet 17.2 mg PO DAILY PRN (Reason: Constipation) RF: 0 ropinirole 0.25 mg tablet 0.25 mg PO TID RF: 0 aspirin [Aspirin Childrens] 81 mg tablet,chewable 81 mg PO DAILY RF: 0 atorvastatin 40 mg tablet 40 mg PO DAILY RF: 0 methimazole 5 mg tablet 5 mg PO DAILY RF: 0 quetiapine 50 mg tablet 50 mg PO DAILY RF: 0 Xarelto 15 mg tablet 15 mg PO DAILY RF: 0 sertraline 50 mg tablet 50 mg PO DAILY RF: 0 diclofenac sodium [Voltaren] 1 % Gel 4 g TOPICAL TID RF: 0 lisinopril 5 mg tablet 5 mg PO QAM RF: 0 docusate sodium [Colace] 100 mg Capsule 100 mg PO BID RF: 0 calcium citrate [Calcitrate] 200 mg (950 mg) tablet 200 mg PO BID RF: 0 pantoprazole [Protonix] 40 mg tablet,delayed release (DR/EC) 40 mg PO .COMPLEX RF: 0 Discharge Orders: Discharge Order (Routine); Ordered 09/08/19 Ordered By: Priya House/Other Patient Handouts: A1C Admission Data Admit Date/Time: 09/07/19 16:06 Attending Provider: Priya Jewell Admit Provider: Pooja Garces Primary Care Provider: Hakan Willingham Other Providers: Pooja Garces ; Toan Garcia Other Interventions: Discharge Summary Assessment (RN) Last Done: 09/08/19 17:41 DC Date/Time DO NOT enter until pt leaves facility: 09/08/19 20:13 Supervising Physician Co-Signing Physician Notes PA Supervision Note: I personally saw and examined the patient. I verified all tobias points and agree with TOM Hopper with the following exceptions and/or additions: Pt feleing much better, not SOB, no chest pains. Is eating dinner and tolerating well, sitting in chair. Adamant about getting home. VSS NAD, AAOx3 RRR no mgr CTAB no wcr ABd +BS soft NT ND Ext trace edema Stable for dc to home after mild volume overload. PNA ruled out Coding Level of Care Code 17684 OBS Care - Discharge Diagnoses Shortness of breath R06.02 EKG abnormalities R94.31 Atrial fibrillation, permanent I48.21 CHF (congestive heart failure) I50.9 Heart failure chronicity: unspecified Heart failure type: unspecified Hyperlipidemia E78.5 Anemia D64.9 Pulmonary hypertension I27.20 Chronic kidney disease, stage 3a N18.3 Cholelithiasis K80.20 Biliary obstruction: without biliary obstruction Cholecystitis presence: without cholecystitis Cholelithiasis location: gallbladder Hyperthyroidism E05.90 Hypertension I10 GERD (gastroesophageal reflux disease) K21.9 Chronic obstructive pulmonary disease J41.0 COPD type: chronic bronchitis Chronic bronchitis type: simple DVT prophylaxis Z29.9
--- NOTE | 2019-09-08 16:39 | Electrocardiogram Report ---
Test Reason : Blood Pressure : / mmHG Vent. Rate : 067 BPM Atrial Rate : 000 BPM P-R Int : 000 ms QRS Dur : 158 ms QT Int : 488 ms P-R-T Axes : 000 027 -10 degrees QTc Int : 515 ms Atrial fibrillation Right bundle branch block Possible Inferior infarct , age undetermined T wave abnormality, consider lateral ischemia Abnormal ECG When compared with ECG of 07-SEP-2019 11:30, No significant change was found Confirmed by Toan Garcia ([id number]) on 09/08/2019 4:38:57 PM Referred By: REFERRED SELF Confirmed By:Toan Garcia
[2019-09-08] MEDS: RIVAROXABAN 15 MG TAB PO SCH (17:16)
--- NOTE | 2019-09-19 11:12 | Coding Query ---
A supporting diagnosis is required for the test/procedure performed on this patient in order for us to be reimbursed by the patient's insurance. Please provide a supporting diagnosis for the following test/procedure listed below next to the test name along with your signature. *If there is no additional diagnosis for this patient that would support the following test/procedure please document that below next to the test/procedure. Test(s)/Procedure(s) that require a supporting diagnosis: * VIDEO SWALLOW DIAGNOSIS: Aspiration pneumonitis DATE OF SERVICE: 09/07/19 Provider Signature: __Priya Jewell M.D. Date: _09/20/19 Thank you Jr Morales [facility] Information Management Once completed, please kindly fax back to [phone] For questions please call [phone] [facility]
== END 2019-09-08 20:13 | disposition home or self-care (01) ==
LOC: ED 11:23 → 2W 11:23 → SUATTDRO 16:06 → 2W 16:45

== ENCOUNTER 2020-10-22 13:01 | Observation (INO) ==
[2020-10-22 13:45] LABS: Basophils # (auto) 0.03 K/uL (0-0.2); Basophils % (auto) 0.6 %; Eosinophils # (auto) 0.08 K/uL (0-0.5); Eosinophils % (auto) 1.7 %; Hematocrit (blood only) 34.6 % (42-52); Hemoglobin 11.3 g/dL (14.0-18.0); Lymphocytes % (auto) 20.7 %; Mean Corpuscular Hemoglobin 29.8 pg (25-34); Mean Corpuscular Hgb Conc 32.7 g/dL (32-36); Mean Corpuscular Volume 91.3 fL (80-100); Mean Platelet Volume 10.2 fL (7.4-10.4); Monocytes # (auto) 0.74 K/uL (0.11-0.59); Monocytes % (auto) 15.3 %; Neutrophils # (auto) 2.98 K/uL (1.4-6.5); Neutrophils % (auto) 61.7 %; Platelet Count 156 K/uL (130-400); RDW Coefficient of Variation 18.5 % (11.5-14.5); RDW Standard Deviation 62.5 fL (36.4-46.3); Red Blood Count 3.79 M/uL (4.7-6.1); White Blood Count 4.83 K/uL (4.8-10.8)
[2020-10-22 14:03] LABS: Albumin Level 3.4 gm/dl (3.4-5.0); BUN Creatinine Ratio 19.1 (10-20); Calcium 8.1 mg/dl (8.5-10.1); Creatinine Clr Calc Pharmacy 53.2 ml/min; Est GFR (African American) 63.5; Est GFR (Non-African American) 54.8; Potassium 3.9 mmol/L (3.5-5.1)
[2020-10-22 14:06] LABS: Globulin 3.4 gm/dl (2.5-4.0); Total Protein 6.8 gm/dl (6.4-8.2)
[2020-10-22 15:00] LABS: Troponin I 0.021 ng/ml (0-0.045)
--- NOTE | 2020-10-22 15:08 | XRay Report ---
XR foot RT min 3V routine HISTORY: 89 years-old Male R foot swelling acute pain with soft tissue swelling of the right foot COMPARISON: None TECHNIQUE: 3 views of the right foot FINDINGS: There is an acute comminuted intra-articular fracture involving the first distal phalanx without sign ificant displacement. Acute oblique intra-articular fracture involves the mid to distal aspects of th e first proximal phalanx. Acute fracture involves the medial aspect of the first distal phalanx dista lly with medial displacement of 2 mm. Moderate associated soft tissue swelling. No additional acute f racture or dislocation. Midfoot alignment is anatomic. 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 Mo derate dorsal forefoot soft tissue swelling. Arterial calcifications. Moderate plantar enthesophyte o f the calcaneus. IMPRESSION: 1. Acute comminuted intra-articular fractures of the first distal phalanx. 2. Acute fractures of the first proximal phalanx. 3. Moderate dorsal forefoot soft tissue swelling. ACT 112: Negative or not required by law. The above report was generated using voice recognition software. It may contain grammatical, syntax o r spelling errors. Electronically signed by: Troy Calzada M.D. 10/22/2020 3:07 PM
--- NOTE | 2020-10-22 15:10 | XRay Report ---
XR chest 1V portable HISTORY: 89 years-old Male sob acute shortness of breath COMPARISON: Chest radiograph 09/07/2019 TECHNIQUE: Portable AP view of the chest FINDINGS: Moderate enlargement of the cardiac silhouette. Loop recorder device. Mild right hemidiaphragmatic el evation. No pneumothorax, pleural effusion or overt pulmonary edema. Chronic interstitial coarsening. Dilated pulmonary artery. Hiatal hernia. Degenerative changes of the shoulders and spine. Inferior c ostophrenic angles are not imaged. IMPRESSION: 1. No acute process. 2. Cardiomegaly with pulmonary artery hypertension. ACT 112: Negative or not required by law. The above report was generated using voice recognition software. It may contain grammatical, syntax o r spelling errors. Electronically signed by: Troy Calzada M.D. 10/22/2020 3:09 PM
[2020-10-22 15:22] LABS: INR 1.2 (0.9-1.1); Partial Thromboplastin Time 27.1 Seconds (21.0-31.0); Prothrombin Time 11.8 Seconds (9.0-12.0)
[2020-10-22] MEDS ORDERED: LORazepam 0.25 MG/0.5 ML VIAL IV STA (15:25)
[2020-10-22 15:42] LABS: D Dimer 1180 ug/L FEU (0-500)
--- NOTE | 2020-10-22 16:47 | Ultrasound Report ---
BILATERAL LOWER EXTREMITY VENOUS DOPPLER HISTORY: Leg swelling. COMPARISON STUDY: None. FINDINGS: There is normal compressibility, flow, and augmentation within the bilateral lower extremit y deep venous systems. IMPRESSION: No DVT within the right or left lower extremity. ACT 112: Negative or not required by law. Electronically signed by: Marty Do M.D. 10/22/2020 4:46 PM
[2020-10-22] MEDS ORDERED: FUROSEMIDE 40 MG/4 ML VIAL IV STA (17:45)
--- NOTE | 2020-10-22 19:58 | History & Physical Report ---
Date of Service October 22, 2020 Assessment & Plan (1) Toe fracture, right: Closed. Johnnie tape. Surgical shoe. Follow up with orthopedics as outpatient. (2) Generalized weakness: Patient reports definitive right sided weakness since COVID-19 vaccination therefore will get MRI to assess for subacute CVA. Patient is a high risk of CVA given atrial fibrillation now off any anticoagulation. I suspect he is more deconditioned from his recent COVID-19 vaccination in the setting of prior CVA. PT/OT (3) Shortness of breath: Trial of duoneb in the ER. If helpful consider Rx for COPD exacerbation however breathing at baseline per his daughter at bedside. (4) Diastolic CHF: Chronic. He does not appear significantly hypervolemic at the current time Will continue his usual bumex 2mg PO daily I suspect his current shortness of breath is more COPD related and unclear how far he is really off his baseline. (5) Atrial fibrillation, permanent: Xarelto appears to have been stopped during most recent stay at [facility] earlier this month. Not restarted by cardiology. Will assess for acute CVA as above. Otherwise can follow up as outpatient to determine ongoing anticoagulation. Continue rate control with metoprolol succinate (6) Chronic obstructive pulmonary disease: Patient reportedly refuses inhalers at home. Initial both the patient and daughter did not admit he has this diagnosis although unclear for reason for inhalers otherwise. Recommend follow up with his PCP as I suspect this is driving much of his shortness of breath. (7) History of CVA (cerebrovascular accident): Patient denies any history of stroke but this is listed in his history. 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 Patient and his daughter unaware of this prior diagnosis (8) HTN (hypertension): Continue his routine medication with bumetanide 2mg PO daily, losartan 50mg PO HS and metoprolol succinate 25mg PO daily (9) Hyperthyroidism: Continue methimazole 5mg PO daily Admission and Anticipated Discharge Date Admission Date: October 22, 2020 History of Present Illness Chief Complaint: Toe fracture Primary Care Provider: Hakan Willingham Matty Smiley is an 89 year old male who presents to the ER with erythema and swelling in his right 1st toe. This was determined to be fractured while in the ER although the patient also has multiple ongoing acute on chronic complaints. He reports feeling generally sick ever since having his second COVID-19 vaccination. Feels weaker on the right side than left. No change in speech, hearing, vision or sensation. His daughter at bedside feels his mental state has changed although patient seen after lorazepam given therefore difficult to know whether he is at baseline. He also reports shortness of breath, although his daughter at bedside reports this is normal for him and he refuses to take his inhalers at home. He denies any fever, chills, no cough, loss of taste or smell, abdominal pain. He was recently hospitalized in [facility] from September 26- after an episode of syncope. Per cardiology note no definitive cause of syncope was found. Xarelto was discontinued during his hospitalization due to his age, numerous comorbidities, and his episode of syncope. In the ER CXR showed cardiomegaly with pulmonary artery hypertension. He was felt to be hypervolemic therefore treated Lasix 40mg IV. He was given 0.25mg lorazepam IV which caused excessive sedation. He was referred to medicine for admission and ongoing management of CHF exacerbation. Allergies Allergy/AdvReac Type Severity Reaction Status Date / Time Iodinated Contrast Media Allergy Severe ANAPHYLAXIS Verified 10/22/20 14:00 Sulfa (Sulfonamide Allergy Unknown UNKNOWN Verified 10/22/20 14:00 Antibiotics) Home Medications Medication Instructions Recorded Confirmed Type calcium citrate [Calcitrate] 200 mg PO DAILY 12/14/18 10/22/20 History docusate sodium [Colace] 100 mg PO BID 12/14/18 10/22/20 History aspirin 81 mg chewable tablet 81 mg PO DAILY tab 01/20/19 10/22/20 History atorvastatin 40 mg tablet 40 mg PO DAILY tab 01/20/19 10/22/20 History methimazole 5 mg tablet 5 mg PO DAILY tab 01/20/19 10/22/20 History pantoprazole 40 mg tablet,delayed 40 mg PO 3XWK 01/20/19 10/22/20 History release quetiapine 50 mg tablet 50 mg PO HS tab 01/20/19 10/22/20 History sennosides 8.6 mg tablet 17.2 mg PO DAILY PRN tab 01/20/19 10/22/20 History sertraline 50 mg tablet 50 mg PO DAILY tab 01/20/19 10/22/20 History ropinirole 0.25 mg tablet 0.25 mg PO HS 03/09/19 10/22/20 History bumetanide 1 mg tablet 2 mg PO QAM 09/07/19 10/22/20 History ferrous sulfate 325 mg (65 mg 325 mg PO BID 09/07/19 10/22/20 History iron) tablet metoprolol succinate 25 mg 25 mg PO DAILY #90 tab 10/03/20 10/22/20 Rx tablet,extended release 24 hr losartan 50 mg PO HS 10/22/20 10/22/20 History potassium chloride 10 meq PO BID 10/22/20 10/22/20 History Past Med/Surg History Medical History 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 Cancer lYMPHOMA Cholelithiasis Chronic obstructive pulmonary disease Congestive heart failure Depression GERD (gastroesophageal reflux disease) HTN (hypertension) Hypertension Hyperthyroidism Kidney stone Lymphoma Respiratory failure requiring intubation Status post placement of implantable loop recorder Stroke Surgical History History of cardiac cath Family History Unknown Myocardial infarction Social History Smoking Status: Never smoker Second Hand Exposure: No; Hx Alcohol Use: No Hx Substance Use: No Preferred Language: Wallisian Communication Ability: Effective Visual Impairment: Partially Limited Body Line Finisher Required: No Beliefs That Will Affect Care: None marital status: / Current Living Situation: Alone Current Living Situation Comment: unable to obtain How many Children do You have: 6 Feels Safe at Home: Yes Assistive Devices: Glasses, Oxygen - Continuous and Walker Review of Systems Review of Systems: All systems reviewed & are unremarkable except as noted in HPI & below Gastrointestinal: + constipation (very hard bowel movement yesterday) Physical Exam Constitutional: well developed and + obese; + not well nourished and no acute distress Eyes: PERRL, conjunctivae normal, anicteric sclerae Cardiovascular: Rate/Rhythm: regular rate and + irregularly irregular Heart Sounds: no murmur Extremities: normal capillary refill and + pedal edema (1+ on right pre-tibial); no calf tenderness Gastrointestinal (Abdomen): normal bowel sounds, soft, nontender, no hepatosplenomegaly Musculoskeletal: Erythema and swelling surrounding right 1st toe, does not extend beyond toe. Nail bed appears intact Neurologic: moves all extremities and awake; not confused Motor/Sensory: no tremor and no pronator drift Psychiatric: Orientation: alert and oriented x 3 Motor Behavior: + psychomotor agitation Genitourinary: no CVA tenderness Results & Data Results & Data ([facility]) Vital Signs (Past 12 Hours) Vital Signs Temp Pulse Pulse Resp BP BP Pulse Ox 10/22/20 16:30 87 32 H 127/85 94 10/22/20 15:30 77 25 H 109/74 10/22/20 15:20 84 34 H 10/22/20 15:10 81 22 94 10/22/20 15:00 81 21 128/91 10/22/20 14:50 77 23 93 10/22/20 14:30 78 27 H 125/92 93 10/22/20 14:00 79 26 H 129/82 93 10/22/20 13:26 86 18 118/81 93 10/22/20 13:02 36.8 C 90 18 141/89 H 95 Diagnostic Findings XR chest 1V portable IMPRESSION: 1. No acute process. 2. Cardiomegaly with pulmonary artery hypertension. Medications Administered ER Medications Given: Lasix 40mg IV Lorazepam 0.25mg IV ECG Indication: SOB/dyspnea Rate (beats per minute): 83 Rhythm: atrial fibrillation Findings: + RBBB Comparison ECG Date: from (September 08, 2019) Change: no significant change Code Status & VTE Plan Code Status DNR/DNI VTE Prophylaxis Plan VTE Prophylaxis will be ordered: No PG Care Time/CCT Total # of Minutes Spent Total Time Spent with Patient: Total time spent is greater than 50% in c oordination of care (as documented) at patient's floor/unit and/or counseling patient: Coding Level of Care Code 72680 OBS Care - Level 3 Diagnoses Toe fracture, right S92.404A Encounter type: initial encounter Toe: great toe Fracture type: closed Phalanx: unspecified phalanx Fracture alignment: nondisplaced Generalized weakness R53.1 Shortness of breath R06.02 Diastolic CHF I50.32 Heart failure chronicity: chronic Atrial fibrillation, permanent I48.21 Chronic obstructive pulmonary disease J41.0 COPD type: chronic bronchitis Chronic bronchitis type: simple History of CVA (cerebrovascular accident) Z86.73 HTN (hypertension) I10 Hypertension type: essential hypertension Hyperthyroidism E05.90 (1) Chronic obstructive pulmonary disease COPD type: chronic bronchitis Chronic bronchitis type: simple Qualified Code(s): J41.0 - Simple chronic bronchitis (2) Toe fracture, right Encounter type: initial encounter Toe: great toe Fracture type: closed Phalanx: unspecified phalanx Fracture alignment: nondisplaced Qualified Code(s): S92.404A - Nondisplaced unspecified fracture of right great toe, initial encounter for closed fracture (3) HTN (hypertension) Hypertension type: essential hypertension Qualified Code(s): I10 - Essential (primary) hypertension (4) Diastolic CHF Heart failure chronicity: chronic Qualified Code(s): I50.32 - Chronic diastolic (congestive) heart failure
[2020-10-22] MEDS ORDERED: ALBUT/IPRATROP 3MG/0.5MG NEB 3 ML VIAL NEB STA (20:06)
[2020-10-22 20:26] LABS: Influenza A virus by PCR Negative (Neg); Influenza B virus by PCR Negative (Neg); RSV by PCR Negative (Neg); SARS CoV2 RNA(COVID-19) InHosp NEGATIVE (Negative)
[2020-10-22 20:37] LABS: Appearance Urine Clear (Clear); Bilirubin Urine Negative (Negative); Blood Urine Negative (Negative); Color Urine Yellow; Glucose Urine UA Negative (Negative); Ketones Urine Negative (Negative); Leukocyte Esterase Urine Negative (Negative); Nitrite Urine Negative (Negative); Protein Urine Negative (Negative); Specific Gravity Urine 1.008 (1.000-1.030); Urobilinogen Urine Negative (Negative)
--- NOTE | 2020-10-22 21:15 | Emergency Department Note ---
History of Present Illness General Chief complaint: Infection Stated complaint: infection in legs Time Seen by Provider: 10/22/20 14:04 History of Present Illness Provider complaint: Right foot swelling Onset (ago): day(s) 5 Location: lower extremity Radiation: non-radiation Severity: mild Pain Consistency: + constant Maximum Pain Intensity: 3 Current Pain Intensity: 3 Quality: + aching Relieved By: + none Exacerbated By: + none Associated symptoms: + rash and + shortness of breath; no chest pain, no cough, no fever/chills, no headaches, no nausea/vomiting, no syncope and no weakness [id number] male presents emergency department with his daughter for bilateral and swelling. She notes that the right lower extremity has been increasingly swollen and red. Daughter and patient begin his symptoms began when he got the COVID-19 vaccine 5 days ago. Patient got the Pfizer vaccine. Patient has noticed an increase in weight gain. Also reports shortness of breath. No fevers. No chest pain. No hemoptysis. Patient was recently taken off of Xarelto 3 weeks ago. No falls. No hematemesis coffee-ground emesis bilious vomiting nausea vomiting diarrhea melena or hematochezia. No hematuria. Home Medications Medication Instructions Recorded Confirmed Type calcium citrate [Calcitrate] 200 mg PO DAILY 12/14/18 10/22/20 History docusate sodium [Colace] 100 mg PO BID 12/14/18 10/22/20 History aspirin 81 mg chewable tablet 81 mg PO DAILY tab 01/20/19 10/22/20 History atorvastatin 40 mg tablet 40 mg PO DAILY tab 01/20/19 10/22/20 History methimazole 5 mg tablet 5 mg PO DAILY tab 01/20/19 10/22/20 History pantoprazole 40 mg tablet,delayed 40 mg PO 3XWK 01/20/19 10/22/20 History release quetiapine 50 mg tablet 50 mg PO HS tab 01/20/19 10/22/20 History sennosides 8.6 mg tablet 17.2 mg PO DAILY PRN tab 01/20/19 10/22/20 History sertraline 50 mg tablet 50 mg PO DAILY tab 01/20/19 10/22/20 History ropinirole 0.25 mg tablet 0.25 mg PO HS 03/09/19 10/22/20 History bumetanide 1 mg tablet 2 mg PO QAM 09/07/19 10/22/20 History ferrous sulfate 325 mg (65 mg 325 mg PO BID 09/07/19 10/22/20 History iron) tablet metoprolol succinate 25 mg 25 mg PO DAILY #90 tab 10/03/20 10/22/20 Rx tablet,extended release 24 hr losartan 50 mg PO HS 10/22/20 10/22/20 History potassium chloride 10 meq PO BID 10/22/20 10/22/20 History Allergies Allergy/AdvReac Type Severity Reaction Status Date / Time Iodinated Contrast Media Allergy Severe ANAPHYLAXIS Verified 10/22/20 14:00 Sulfa (Sulfonamide Allergy Unknown UNKNOWN Verified 10/22/20 14:00 Antibiotics) Past Med/Surg History Medical History 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 Cancer lYMPHOMA Cholelithiasis Chronic obstructive pulmonary disease Congestive heart failure Depression GERD (gastroesophageal reflux disease) HTN (hypertension) Hypertension Hyperthyroidism Kidney stone Lymphoma Respiratory failure requiring intubation Status post placement of implantable loop recorder Stroke Surgical History History of cardiac cath Family History Unknown Myocardial infarction Social History Smoking Status: Never smoker Second Hand Exposure: No; Hx Alcohol Use: No Hx Substance Use: No Preferred Language: Salvadorean Communication Ability: Effective Visual Impairment: Partially Limited Minister Of Religion Required: No Beliefs That Will Affect Care: None marital status: / Current Living Situation: Alone Current Living Situation Comment: lives at [facility] How many Children do You have: 6 Feels Safe at Home: Yes Assistive Devices: Glasses, Oxygen - Continuous and Walker Review of Systems A total of 10 systems reviewed and were otherwise negative Physical Exam Vital Signs Vital Signs - 24 hr 10/22/20 13:02 10/22/20 13:26 10/22/20 14:00 Temperature 36.8 C Temperature Source Temporal Artery Scan Pulse Rate 90 79 Pulse Rate [Apical] 86 Pulse Rate from SpO2 Sensor Respiratory Rate 18 18 26 H Respiratory Effort / Characteristics Non-Labored Spontaneous Respiratory Depth Normal Blood Pressure 141/89 H 129/82 Blood Pressure [Left Arm] 118/81 Blood Pressure Mean 106 97 Blood Pressure Mean [Left Arm] 93 Pulse Oximetry 95 93 93 Oxygen Delivery Method Room Air Room Air Room Air Sepsis Recent Fever Within 48 Hours No Sepsis New/Unexplained Change in Mental Status No Sepsis Action Taken by Nursing No Action Required 10/22/20 14:30 10/22/20 14:50 10/22/20 15:00 Temperature Temperature Source Pulse Rate 78 77 81 Pulse Rate [Apical] Pulse Rate from SpO2 Sensor 80 Respiratory Rate 27 H 23 21 Respiratory Effort / Characteristics Respiratory Depth Blood Pressure 125/92 128/91 Blood Pressure [Left Arm] Blood Pressure Mean 103 103 Blood Pressure Mean [Left Arm] Pulse Oximetry 93 93 Oxygen Delivery Method Room Air Sepsis Recent Fever Within 48 Hours Sepsis New/Unexplained Change in Mental Status Sepsis Action Taken by Nursing 10/22/20 15:10 10/22/20 15:20 10/22/20 15:30 Temperature Temperature Source Pulse Rate 81 84 77 Pulse Rate [Apical] Pulse Rate from SpO2 Sensor 82 Respiratory Rate 22 34 H 25 H Respiratory Effort / Characteristics Respiratory Depth Blood Pressure 109/74 Blood Pressure [Left Arm] Blood Pressure Mean 85 Blood Pressure Mean [Left Arm] Pulse Oximetry 94 Oxygen Delivery Method Sepsis Recent Fever Within 48 Hours Sepsis New/Unexplained Change in Mental Status Sepsis Action Taken by Nursing 10/22/20 16:30 10/22/20 16:40 10/22/20 16:50 Temperature Temperature Source Pulse Rate 87 83 82 Pulse Rate [Apical] Pulse Rate from SpO2 Sensor 86 90 86 Respiratory Rate 32 H 24 22 Respiratory Effort / Characteristics Respiratory Depth Blood Pressure 127/85 Blood Pressure [Left Arm] Blood Pressure Mean 99 Blood Pressure Mean [Left Arm] Pulse Oximetry 94 94 94 Oxygen Delivery Method Sepsis Recent Fever Within 48 Hours Sepsis New/Unexplained Change in Mental Status Sepsis Action Taken by Nursing 10/22/20 17:00 10/22/20 17:10 10/22/20 17:13 Temperature Temperature Source Pulse Rate 82 88 88 Pulse Rate [Apical] Pulse Rate from SpO2 Sensor 86 92 H 86 Respiratory Rate 22 22 22 Respiratory Effort / Characteristics Respiratory Depth Blood Pressure 120/81 120/81 Blood Pressure [Left Arm] Blood Pressure Mean 94 94 Blood Pressure Mean [Left Arm] Pulse Oximetry 93 94 93 Oxygen Delivery Method Sepsis Recent Fever Within 48 Hours Sepsis New/Unexplained Change in Mental Status Sepsis Action Taken by Nursing 10/22/20 17:21 10/22/20 17:30 10/22/20 17:40 Temperature Temperature Source Pulse Rate 87 94 H 85 Pulse Rate [Apical] Pulse Rate from SpO2 Sensor 88 86 88 Respiratory Rate 22 30 H 32 H Respiratory Effort / Characteristics Respiratory Depth Blood Pressure 148/108 H Blood Pressure [Left Arm] Blood Pressure Mean 121 Blood Pressure Mean [Left Arm] Pulse Oximetry 93 91 85 L Oxygen Delivery Method Sepsis Recent Fever Within 48 Hours Sepsis New/Unexplained Change in Mental Status Sepsis Action Taken by Nursing 10/22/20 17:50 10/22/20 18:00 10/22/20 18:10 Temperature Temperature Source Pulse Rate 95 H 86 93 H Pulse Rate [Apical] Pulse Rate from SpO2 Sensor 87 93 H 92 H Respiratory Rate 27 H 26 H 35 H Respiratory Effort / Characteristics Respiratory Depth Blood Pressure Blood Pressure [Left Arm] Blood Pressure Mean Blood Pressure Mean [Left Arm] Pulse Oximetry 80 L 80 L 85 L Oxygen Delivery Method Sepsis Recent Fever Within 48 Hours Sepsis New/Unexplained Change in Mental Status Sepsis Action Taken by Nursing 10/22/20 18:20 10/22/20 18:30 10/22/20 18:35 Temperature Temperature Source Pulse Rate 86 94 H 88 Pulse Rate [Apical] Pulse Rate from SpO2 Sensor 89 85 85 Respiratory Rate 30 H 36 H 26 H Respiratory Effort / Characteristics Respiratory Depth Blood Pressure 132/98 Blood Pressure [Left Arm] Blood Pressure Mean 109 Blood Pressure Mean [Left Arm] Pulse Oximetry 82 L 89 L 91 Oxygen Delivery Method Sepsis Recent Fever Within 48 Hours Sepsis New/Unexplained Change in Mental Status Sepsis Action Taken by Nursing 10/22/20 18:40 10/22/20 18:50 10/22/20 19:00 Temperature Temperature Source Pulse Rate 87 83 91 H Pulse Rate [Apical] Pulse Rate from SpO2 Sensor 93 H 84 Respiratory Rate 27 H 28 H 32 H Respiratory Effort / Characteristics Respiratory Depth Blood Pressure 139/109 H Blood Pressure [Left Arm] Blood Pressure Mean 119 Blood Pressure Mean [Left Arm] Pulse Oximetry 92 91 Oxygen Delivery Method Sepsis Recent Fever Within 48 Hours Sepsis New/Unexplained Change in Mental Status Sepsis Action Taken by Nursing 10/22/20 19:10 10/22/20 19:20 Temperature Temperature Source Pulse Rate 90 87 Pulse Rate [Apical] Pulse Rate from SpO2 Sensor 89 84 Respiratory Rate 31 H 17 Respiratory Effort / Characteristics Respiratory Depth Blood Pressure Blood Pressure [Left Arm] Blood Pressure Mean Blood Pressure Mean [Left Arm] Pulse Oximetry 91 92 Oxygen Delivery Method Sepsis Recent Fever Within 48 Hours Sepsis New/Unexplained Change in Mental Status Sepsis Action Taken by Nursing Physical Exam GENERAL: He is oriented to person, place, and time. He appears well-developed and well-nourished. He does not appear distressed. HENT: Exam performed. - Head: Normocephalic and atraumatic. - Right Ear: External ear normal. No mastoid tenderness. - Left Ear: External ear normal. No mastoid tenderness. - Mouth/Throat: The oropharynx is clear and moist. No trismus in the jaw. No dental abscesses or uvula swelling. No oropharyngeal exudate or tonsillar abscesses. EYES: Conjunctivae and EOM are normal. Pupils are equal, round, and reactive to light. Right eye exhibits no discharge. Left eye exhibits no discharge. No scleral icterus. NECK: Normal range of motion. Neck supple. No JVD present. No spinous process tenderness present. No carotid bruit present. No rigidity. No tracheal deviation and normal range of motion present. No Brudzinski's sign and no Kernig's sign noted. CV: Normal rate, irregular rhythm, normal heart sounds and intact distal pulses. There is bilateral lower extremity peripheral edema. Palpable radial pulses bue. PULM/CHEST: Effort normal and breath sounds normal. No respiratory distress. No stridor. He has no wheezes. He has no rales. - Chest Wall: He exhibits no tenderness. ABD: The abdomen is soft. Bowel sounds are normal. He has no distension. No mass is present. There is no tenderness. There is no rebound, no guarding, no Valencia's sign and no tenderness at McBurney's point. Rovsig negative. MUSC/SKEL: Right lower extremity: Swelling of the right foot with mild erythema over the right great toe. Palpable DP and PT pulse. NEURO: He is alert and oriented to person, place, and time. He has normal strength. No cranial nerve deficit or sensory deficit. GCS eye subscore is 4. GCS verbal subscore is 5. GCS motor subscore is 6. SKIN: Skin is warm and dry. He is not diaphoretic. PSYCH: He has a normal mood and affect. Behavior is normal. Judgment and thought content normal. Course Course 1404: The patient was evaluated in room C11. A complete history and physical exam was performed Cardiac monitoring: An order was placed for continuous cardiac monitoring. The monitor shows a rate of 80 with atrial fibrillation rhythm EMR reviewed. Patient is a DNR/DNI. He has a history of CHF. From the scanned report on October 01, 2020 it states that the patient was discontinued from his Xarelto due to fall risk. 1530: Informed by nursing that the family is requesting that the patient have something for anxiety. 0.25 mg of Ativan have been ordered for the patient given his elderly age. 1745: Vital signs stable. Labs show an elevated D-dimer. Patient has a history of anaphylactic reaction to contrast. Patient's ultrasound is negative for PE. His proBNP is elevated. It is thought that his shortness of breath is most likely due to his congestive heart failure and less likely due to acute PE as he has not had any tachycardia. This would also explain the patient's swelling in the bilateral lower extremities. Patient's chest x-ray does show cardiomegaly without overt pulmonary edema also. Patient's white blood cell count is normal. The x-ray of his foot does show great toe fractures. Is thought that this could be the reason for the swelling was foot also. Patient is more sleepy after receiving the Ativan. I did discuss these findings with the patient's family member at bedside. She is asking that we observe the patient overnight. I did agree to discuss this with the hospitalist. Lasix 40 mg ordered for the patient. Dr. Pili gutiérrez any hospitalist will be notified. Administered Medications Discontinued Medications Albuterol (Albut/Ipratrop 3mg/0.5mg Neb 3 Ml Vial) 3 ml NEB NOW STA Stop: 10/22/20 20:07 Last Admin: 10/22/20 20:20 Dose: 3 ml Documented by: [id number] Furosemide (Furosemide 40 Mg/4 Ml Vial) 40 mg IV NOW STA Stop: 10/22/20 17:46 Last Admin: 10/22/20 18:34 Dose: 40 mg Documented by: [id number] Lorazepam (Ativan) 0.25 mg in 0.5 mls @ 0.5 mls/min IV NOW STA Stop: 10/22/20 15:26 Last Admin: 10/22/20 16:14 Dose: 0.5 mls/min Documented by: [id number] Medical Decision Making Laboratory Data Result diagrams: 10/22/20 13:26 10/22/20 13:26 Lab Results 10/22/20 10/22/20 10/22/20 Range/Units 13:26 13:26 13:26 WBC 4.83 (4.8-10.8) K/uL RBC 3.79 L (4.7-6.1) M/uL Hgb 11.3 L (14.0-18.0) g/dL Hct 34.6 L (42-52) % MCV 91.3 (80-100) fL MCH 29.8 (25-34) pg MCHC 32.7 (32-36) g/dL RDW Std Deviation 62.5 H (36.4-46.3) fL RDW Coeff of Jennifer 18.5 H (11.5-14.5) % Plt Count 156 (130-400) K/uL MPV 10.2 (7.4-10.4) fL Immature Gran % (Auto) 0.0 % Neut % (Auto) 61.7 % Lymph % (Auto) 20.7 % [place] % (Auto) 15.3 % Eos % (Auto) 1.7 % Baso % (Auto) 0.6 % Neut # (Auto) 2.98 (1.4-6.5) K/uL Lymph # (Auto) 1.00 L (1.2-3.4) K/uL [place] # (Auto) 0.74 H (0.11-0.59) K/uL Eos # (Auto) 0.08 (0-0.5) K/uL Baso # (Auto) 0.03 (0-0.2) K/uL Immature Gran # (Auto) 0.00 (0.00-0.02) K/uL PT 11.8 (9.0-12.0) Seconds INR 1.2 H (0.9-1.1) APTT 27.1 (21.0-31.0) Seconds PTT Ratio 1.0 D-Dimer 1180 H* (0-500) ug/L FEU Sodium 142 (136-145) mmol/L Potassium 3.9 (3.5-5.1) mmol/L Chloride 110 H (98-107) mmol/L Carbon Dioxide 25 (21-32) mmol/L Anion Gap 7.0 (3-11) BUN 23 H (7-18) mg/dl Creatinine 1.18 (0.6-1.4) mg/dl Est Cr Clr Drug Dosing 53.2 ml/min Est GFR ( Amer) 63.5 Est GFR (Non-Af Amer) 54.8 BUN/Creatinine Ratio 19.1 (10-20) Glucose 171 H (70-99) mg/dl Calcium 8.1 L (8.5-10.1) mg/dl Total Bilirubin 1.0 (0.2-1) mg/dl AST 25 (15-37) U/L ALT 19 (12-78) U/L Alkaline Phosphatase 142 H (45-117) U/L Troponin I (0-0.045) ng/ml NT-Pro-B Natriuret Pep (0-1800) pg/ml Total Protein 6.8 (6.4-8.2) gm/dl Albumin 3.4 (3.4-5.0) gm/dl Globulin 3.4 (2.5-4.0) gm/dl Albumin/Globulin Ratio 1.0 (0.9-2) //21 Range/Units 13:26 WBC (4.8-10.8) K/uL RBC (4.7-6.1) M/uL Hgb (14.0-18.0) g/dL Hct (42-52) % MCV (80-100) fL MCH (25-34) pg MCHC (32-36) g/dL RDW Std Deviation (36.4-46.3) fL RDW Coeff of Jennifer (11.5-14.5) % Plt Count (130-400) K/uL MPV (7.4-10.4) fL Immature Gran % (Auto) % Neut % (Auto) % Lymph % (Auto) % [place] % (Auto) % Eos % (Auto) % Baso % (Auto) % Neut # (Auto) (1.4-6.5) K/uL Lymph # (Auto) (1.2-3.4) K/uL [place] # (Auto) (0.11-0.59) K/uL Eos # (Auto) (0-0.5) K/uL Baso # (Auto) (0-0.2) K/uL Immature Gran # (Auto) (0.00-0.02) K/uL PT (9.0-12.0) Seconds INR (0.9-1.1) APTT (21.0-31.0) Seconds PTT Ratio D-Dimer (0-500) ug/L FEU Sodium (136-145) mmol/L Potassium (3.5-5.1) mmol/L Chloride (98-107) mmol/L Carbon Dioxide (21-32) mmol/L Anion Gap (3-11) BUN (7-18) mg/dl Creatinine (0.6-1.4) mg/dl Est Cr Clr Drug Dosing ml/min Est GFR ( Amer) Est GFR (Non-Af Amer) BUN/Creatinine Ratio (10-20) Glucose (70-99) mg/dl Calcium (8.5-10.1) mg/dl Total Bilirubin (0.2-1) mg/dl AST (15-37) U/L ALT (12-78) U/L Alkaline Phosphatase (45-117) U/L Troponin I 0.021 (0-0.045) ng/ml NT-Pro-B Natriuret Pep 4753 H (0-1800) pg/ml Total Protein (6.4-8.2) gm/dl Albumin (3.4-5.0) gm/dl Globulin (2.5-4.0) gm/dl Albumin/Globulin Ratio (0.9-2) Imaging Data Radiologist's Impression: Chest X-Ray 10/22/20 14:33 XR chest 1V portable HISTORY: 89 years-old Male sob acute shortness of breath COMPARISON: Chest radiograph 09/07/2019 TECHNIQUE: Portable AP view of the chest FINDINGS: Moderate enlargement of the cardiac silhouette. Loop recorder device. Mild right hemidiaphragmatic elevation. No pneumothorax, pleural effusion or overt pulmonary edema. Chronic interstitial coarsening. Dilated pulmonary artery. Hiatal hernia. Degenerative changes of the shoulders and spine. Inferior costophrenic angles are not imaged. IMPRESSION: 1. No acute process. 2. Cardiomegaly with pulmonary artery hypertension. ACT 112: Negative or not required by law. The above report was generated using voice recognition software. It may contain grammatical, syntax or spelling errors. Electronically signed by: Troy Calzada M.D. 10/22/2020 3:09 PM Foot X-Ray 10/22/20 14:33 XR foot RT min 3V routine HISTORY: 89 years-old Male R foot swelling acute pain with soft tissue swelling of the right foot COMPARISON: None TECHNIQUE: 3 views of the right foot FINDINGS: There is an acute comminuted intra-articular fracture involving the first distal phalanx without significant displacement. Acute oblique intra-articular fracture involves the mid to distal aspects of the first proximal phalanx. Acute fracture involves the medial aspect of the first distal phalanx distally with medial d isplacement of 2 mm. Moderate associated soft tissue swelling. No additional acute fracture or dislocation. Midfoot alignment is anatomic. 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 Moderate dorsal forefoot soft tissue swelling. Arterial calcifications. Moderate plantar enthesophyte of the calcaneus. IMPRESSION: 1. Acute comminuted intra-articular fractures of the first distal phalanx. 2. Acute fractures of the first proximal phalanx. 3. Moderate dorsal forefoot soft tissue swelling. ACT 112: Negative or not required by law. The above report was generated using voice recognition software. It may contain grammatical, syntax or spelling errors. Electronically signed by: Troy Calzada M.D. 10/22/2020 3:07 PM Venous Doppler Study 10/22/20 14:33 BILATERAL LOWER EXTREMITY VENOUS DOPPLER HISTORY: Leg swelling. COMPARISON STUDY: None. FINDINGS: There is normal compressibility, flow, and augmentation within the bilateral lower extremity deep venous systems. IMPRESSION: No DVT within the right or left lower extremity. ACT 112: Negative or not required by law. Electronically signed by: Marty Do M.D. 10/22/2020 4:46 PM ECG Data Indication: + SOB/dyspnea Rate (beats per minute): 83 Rhythm: + atrial fibrillation ECG ST segments: + Normal ST segments Additional Comments: QRS 168 Qtc 528 MDM Narrative 1404: The patient was evaluated in room C11. A complete history and physical exam was performed Cardiac monitoring: An order was placed for continuous cardiac monitoring. The monitor shows a rate of 80 with atrial fibrillation rhythm EMR reviewed. Patient is a DNR/DNI. He has a history of CHF. From the scanned report on October 01, 2020 it states that the patient was discontinued from his Xarelto due to fall risk. 1530: Informed by nursing that the family is requesting that the patient have something for anxiety. 0.25 mg of Ativan have been ordered for the patient given his elderly age. 1745: Vital signs stable. Labs show an elevated D-dimer. Patient has a history of anaphylactic reaction to contrast. Patient's ultrasound is negative for PE. His proBNP is elevated. It is thought that his shortness of breath is most likely due to his congestive heart failure and less likely due to acute PE as he has not had any tachycardia. This would also explain the patient's swelling in the bilateral lower extremities. Patient's chest x-ray does show cardiomegaly without overt pulmonary edema also. Patient's white blood cell count is normal. The x-ray of his foot does show great toe fractures. Is thought that this could be the reason for the swelling was foot also. Patient is more sleepy after receiving the Ativan. I did discuss these findings with the patient's family member at bedside. She is asking that we observe the patient overnight. I did agree to discuss this with the hospitalist. Lasix 40 mg ordered for the patient. Dr. Pili gutiérrez any hospitalist will be notified. Impression & Plan Diastolic CHF, Fracture of toe Discharge Plan Visit Data Chief Complaint: Infection Stated Complaint: infection in legs ED Provider: Dionisio Stevens Discharge Problem: Diastolic CHF, Fracture of toe Patient Disposition: Admitted As Inpatient Discharge Instructions Interventions: ED Discharge Assessment Last Done: 10/22/20 21:21
[2020-10-22] MEDS ORDERED: ACETAMINOPHEN 325 MG TAB PO PRN (21:24)
[2020-10-22] MEDS ORDERED: SENNA 8.6 MG TAB PO PRN (21:24)
[2020-10-22] MEDS: LOSARTAN POTASSIUM 50 MG TAB PO SCH (22:10)
[2020-10-22] MEDS: POTASSIUM CHLORIDE 10 MEQ TABCR PO SCH (22:11)
[2020-10-22] MEDS: QUEtiapine FUMARATE 25 MG TABLET PO SCH (22:12)
[2020-10-22] MEDS: rOPINIRole HCL 0.25 MG TABLET PO SCH (22:13)
[2020-10-22] MEDS: FERROUS SULFATE 325 MG TAB PO SCH (22:13)
[2020-10-22] MEDS: DOCUSATE SODIUM 100 MG CAP PO SCH (22:14)
[2020-10-23] MEDS: POTASSIUM CHLORIDE 10 MEQ TABCR PO SCH ×2 (07:38→20:04)
[2020-10-23] MEDS: PANTOprazole 40 MG TAB PO SCH (07:39)
[2020-10-23] MEDS: SERTRALINE HCL 50 MG TABLET PO SCH (07:39)
[2020-10-23] MEDS: DOCUSATE SODIUM 100 MG CAP PO SCH ×2 (07:39→20:04)
[2020-10-23] MEDS: ACETAMINOPHEN 500 MG TAB PO SCH ×3 (07:39→20:05)
[2020-10-23] MEDS: FERROUS SULFATE 325 MG TAB PO SCH ×2 (07:40→20:04)
[2020-10-23] MEDS: CALCIUM CITRATE 950 MG TAB PO SCH (07:40)
[2020-10-23] MEDS: methIMAzole 5 MG TABLET PO SCH (07:40)
[2020-10-23] MEDS: ATORVASTATIN 40 MG TAB PO SCH (07:40)
[2020-10-23] MEDS: BUMETANIDE 1 MG TAB PO SCH (07:40)
[2020-10-23] MEDS: ASPIRIN 81 MG ECTAB PO SCH (07:40)
[2020-10-23] MEDS: METOPROLOL SUCC 25MG EXT REL TAB PO SCH (07:40)
--- NOTE | 2020-10-23 10:52 | Hospitalist Progress Note ---
Date of Service October 23, 2020 Assessment & Plan (1) Generalized weakness: Patient reports definitive right sided weakness since COVID-19 vaccination. Unable to get MRI, patient refused. Loop recorder information was lost due to trying to get MRI. Patient is a high risk of CVA given atrial fibrillation now off any anticoagulation. I suspect he is more deconditioned from his recent COVID-19 vaccination in the setting of prior CVA. (2) EKG abnormalities: (3) Shortness of breath: Trial of duoneb in the ER. If helpful consider Rx for COPD exacerbation however breathing at baseline per his daughter at bedside. Patient appears to be breathing well at the moment. (4) Atrial fibrillation, permanent: Xarelto appears to have been stopped during most recent stay at [facility] earlier this month. Not restarted by cardiology. Unable to obtain CT scan of head. Otherwise can follow up as outpatient to determine ongoing anticoagulation. (5) Chronic obstructive pulmonary disease: Patient reportedly refuses inhalers at home. Initial both the patient and daughter did not admit he has this diagnosis although clearly the (6) History of CVA (cerebrovascular accident): Patient denies any history of stroke but this is listed in his history. 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 Patient and his daughter unaware of this prior diagnosis (7) Toe fracture, right: Closed. Johnnie tape. Surgical shoe. Follow up with orthopedics as outpatient. Admission and Anticipated Discharge Date Admission Date: October 22, 2020 Subjective Patient did not tolerate MRI. Patient only is comfortable with sitting upright. reviwed weight which is elevated. also his BNP is elevated too. Review of Systems Review of Systems: All systems reviewed & are unremarkable except as noted in HPI & below Physical Exam Physical Exam: Constitutional: well developed and + obese; + not well nourished and no acute distress Eyes: PERRL, conjunctivae normal, anicteric sclerae Cardiovascular: Rate/Rhythm: regular rate and + irregularly irregular Heart Sounds: no murmur Extremities: normal capillary refill and + pedal edema (1+ on right pre-tibial); no calf tenderness Gastrointestinal (Abdomen): normal bowel sounds, soft, nontender, no hepatosplenomegaly Musculoskeletal: Erythema and swelling surrounding right 1st toe, does not extend beyond toe. Nail bed appears intact Neurologic: moves all extremities and awake; not confused Motor/Sensory: no tremor and no pronator drift Psychiatric: Orientation: alert and oriented x 3 Motor Behavior: + psychomotor agitation Genitourinary: no CVA tenderness Results & Data Results & Data ([facility]) Vital Signs (Past 12 Hours) Vital Signs Temp Pulse Pulse Resp BP Pulse Ox 10/23/20 08:00 35.6 C L 91 H 22 130/81 94 10/23/20 02:30 37.2 C 93 H 20 123/82 93 10/22/20 23:52 88 10/22/20 23:08 36.4 C L 93 H 20 120/78 93 PG Care Time/CCT Total # of Minutes Spent Total Time Spent with Patient: Total time spent is greater than 50% in coordination of care (as documented) at patient's floor/unit and/or counseling patient: Coding Level of Care Code 51659 Subseq Hosp Care Lvl 3 Diagnoses Generalized weakness R53.1 EKG abnormalities R94.31 Shortness of breath R06.02 Atrial fibrillation, permanent I48.21 Chronic obstructive pulmonary disease J41.0 COPD type: chronic bronchitis Chronic bronchitis type: simple History of CVA (cerebrovascular accident) Z86.73 Toe fracture, right S92.911A Time Spent (min) 35 (1) Chronic obstructive pulmonary disease COPD type: chronic bronchitis Chronic bronchitis type: simple Qualified Code(s): J41.0 - Simple chronic bronchitis
[2020-10-23 11:06] LABS: Hematocrit (blood only) 34.3 % (42-52); Hemoglobin 11.1 g/dL (14.0-18.0); Mean Corpuscular Hemoglobin 29.5 pg (25-34); Mean Corpuscular Hgb Conc 32.4 g/dL (32-36); Mean Corpuscular Volume 91.2 fL (80-100); Mean Platelet Volume 10.3 fL (7.4-10.4); Platelet Count 148 K/uL (130-400); RDW Coefficient of Variation 18.4 % (11.5-14.5); RDW Standard Deviation 61.6 fL (36.4-46.3); Red Blood Count 3.76 M/uL (4.7-6.1); White Blood Count 5.23 K/uL (4.8-10.8)
[2020-10-23 11:39] LABS: BUN Creatinine Ratio 21.2 (10-20); Calcium 8.1 mg/dl (8.5-10.1); Creatinine Clr Calc Pharmacy 51.2 ml/min; Est GFR (Non-African American) 52.6; Potassium 4.2 mmol/L (3.5-5.1)
--- NOTE | 2020-10-23 15:52 | XCELERA ---
[id number] \\[id number]
--- NOTE | 2020-10-23 16:00 | Electrocardiogram Report ---
Test Reason : Blood Pressure : / mmHG Vent. Rate : 083 BPM Atrial Rate : 089 BPM P-R Int : 000 ms QRS Dur : 168 ms QT Int : 450 ms P-R-T Axes : 000 080 -04 degrees QTc Int : 528 ms Atrial fibrillation Right bundle branch block Abnormal ECG When compared with ECG of 08-SEP-2019 07:09, No significant change Confirmed by Kenroy Rowland ([id number]) on 10/23/2020 4:00:07 PM Referred By: REFERRED SELF Confirmed By:Kenroy Rowland
[2020-10-23] MEDS: rOPINIRole HCL 0.25 MG TABLET PO SCH (20:04)
[2020-10-23] MEDS: LOSARTAN POTASSIUM 50 MG TAB PO SCH (20:04)
[2020-10-23] MEDS: QUEtiapine FUMARATE 25 MG TABLET PO SCH (20:04)
[2020-10-23] MEDS ORDERED: OLANZapine ZYDIS 5 MG ORALLY DIS. TAB PO SCH (21:00)
[2020-10-23] MEDS ORDERED: MoRPHine SULFATE 2 MG/ML CARP IV STA (23:00)
[2020-10-24] MEDS: METOPROLOL SUCC 25MG EXT REL TAB PO SCH (07:29)
[2020-10-24 08:09] LABS: Hematocrit (blood only) 34.9 % (42-52); Hemoglobin 10.9 g/dL (14.0-18.0); Mean Corpuscular Hemoglobin 29.1 pg (25-34); Mean Corpuscular Hgb Conc 31.2 g/dL (32-36); Mean Corpuscular Volume 93.3 fL (80-100); Mean Platelet Volume 11.3 fL (7.4-10.4); Platelet Count 142 K/uL (130-400); RDW Coefficient of Variation 18.3 % (11.5-14.5); RDW Standard Deviation 62.6 fL (36.4-46.3); Red Blood Count 3.74 M/uL (4.7-6.1); White Blood Count 4.32 K/uL (4.8-10.8)
[2020-10-24 08:38] LABS: BUN Creatinine Ratio 23.3 (10-20); Calcium 8.6 mg/dl (8.5-10.1); Creatinine Clr Calc Pharmacy 47.7 ml/min; Est GFR (African American) 61.6; Est GFR (Non-African American) 53.1
[2020-10-24] MEDS: methIMAzole 5 MG TABLET PO SCH (09:35)
[2020-10-24] MEDS: ACETAMINOPHEN 500 MG TAB PO SCH ×3 (09:35→20:57)
[2020-10-24] MEDS: ASPIRIN 81 MG ECTAB PO SCH (09:36)
[2020-10-24] MEDS: POTASSIUM CHLORIDE 10 MEQ TABCR PO SCH ×2 (09:36→20:59)
[2020-10-24] MEDS: DOCUSATE SODIUM 100 MG CAP PO SCH ×2 (09:36→20:58)
[2020-10-24] MEDS: FERROUS SULFATE 325 MG TAB PO SCH ×2 (09:36→20:58)
[2020-10-24] MEDS: CALCIUM CITRATE 950 MG TAB PO SCH (09:37)
[2020-10-24] MEDS: SERTRALINE HCL 50 MG TABLET PO SCH (09:37)
[2020-10-24] MEDS: ATORVASTATIN 40 MG TAB PO SCH (09:39)
[2020-10-24] MEDS: BUMETANIDE 1 MG TAB PO SCH (09:39)
--- NOTE | 2020-10-24 09:50 | Heart Failure Consultation ---
Date of Consultation October 24, 2020 Assessment & Plan (1) Diastolic CHF: Patient initially presented for leg pain and swelling. He was found to have a right toe fracture. This continues to be his main compliant today. He does not examine excessively hypervolemic. He was noted to be short of breath in the ED. Patient is currently not complaining of this and feel he is at baseline, however he remains on supplemental O2 which he does not use at home. Edema is unilateral. Doppler is negative for DVT. May be secondary to right toe injury. Echocardiogram demonstrates right sided volume overload. Chest xray without evidence of pulmonary edema. Currently being treated for COPD exacerbation. Continue home dose of diuretic- Bumex 2 mg daily. Continue daily standing weights. Continue I&Os for monitoring. Low sodium diet, less than 2,000 mg daily. Patient was briefly followed by the heart failure program in 2019 but he has since opted out. He is not willing to be transported to [place] for visits. Recommend close follow up with Dr. Rowland in the [place] office. History of Present Illness Attending Physician: Hakan Flood Mr. Smiley is an 89-year-old white male with a history of Non-Ischemic Cardiomyopathy (resolved as of 04/2018 echo), Valvular Heart Disease (moderate MR, mild AI, history of MV Endocarditis), Permanent Atrial Fibrillation, Hypertension, Chronic Combined CHF, Non-Hodgkin's Lymphoma, and Paroxysmal Ventricular Tachycardia / Syncope s/p [employer] LINQ ILR -- who is currently admitted for leg swelling and a toe injury. Dr. Rowland is his primary underwater photographer. He was previously followed by the heart failure program (2019) but later opted out due to his preference of not traveling to [place] for office visits. Patient has had three previous hospitalizations in 2018, two in 2019, and one in 2019 for heart failure/pneumonia/shortness of breath. He routinely follows with Dr. Rowland in the [place] office. His last evaluation was 10/03/20. He was stable at that visit without concerns. No new recommendations. He presented to the ED 10/22/20 with right foot swelling and redness. He was also noting weight gain and shortness of breath. Ultrasound was negative for DVT. ProBNP elevated. Chest xray without pulmonary edema. Xray of the foot confirms a right great toe fracture that appears acute. Echocardiogram with preserved EF, 60-65% and consistent with RV volume overload. Today he reports he's feeling well. His biggest complaint is toe pain. He has chronic, stable dyspnea on exertion. He is currently using supplemental O2 at 2L. He reports he slept well and denies orthopnea or PND. He has minimal lower extremity edema, R>L possibly secondary to his injury. He denies chest pain, palpitations, or lightheadedness. SocHx: Patient is currently living alone. He has caregivers throughout the day. His daughter lives near by. He is a former smoker. Denies alcohol use. Allergies Allergy/AdvReac Type Severity Reaction Status Date / Time Iodinated Contrast Media Allergy Severe ANAPHYLAXIS Verified 10/22/20 14:00 Sulfa (Sulfonamide Allergy Unknown UNKNOWN Verified 10/22/20 14:00 Antibiotics) Home Medications Medication Instructions Recorded Confirmed Type calcium citrate [Calcitrate] 200 mg PO DAILY 12/14/18 10/22/20 History docusate sodium [Colace] 100 mg PO BID 12/14/18 10/22/20 History aspirin 81 mg chewable tablet 81 mg PO DAILY tab 01/20/19 10/22/20 History atorvastatin 40 mg tablet 40 mg PO DAILY tab 01/20/19 10/22/20 History methimazole 5 mg tablet 5 mg PO DAILY tab 01/20/19 10/22/20 History pantoprazole 40 mg tablet,delayed 40 mg PO 3XWK 01/20/19 10/22/20 History release quetiapine 50 mg tablet 50 mg PO HS tab 01/20/19 10/22/20 History sennosides 8.6 mg tablet 17.2 mg PO DAILY PRN tab 01/20/19 10/22/20 History sertraline 50 mg tablet 50 mg PO DAILY tab 01/20/19 10/22/20 History ropinirole 0.25 mg tablet 0.25 mg PO HS 03/09/19 10/22/20 History bumetanide 1 mg tablet 2 mg PO QAM 09/07/19 10/22/20 History ferrous sulfate 325 mg (65 mg 325 mg PO BID 09/07/19 10/22/20 History iron) tablet metoprolol succinate 25 mg 25 mg PO DAILY #90 tab 10/03/20 10/22/20 Rx tablet,extended release 24 hr losartan 50 mg PO HS 10/22/20 10/22/20 History potassium chloride 10 meq PO BID 10/22/20 10/22/20 History Patient History Medical History 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 Cancer lYMPHOMA Cholelithiasis Chronic obstructive pulmonary disease Congestive heart failure Depression GERD (gastroesophageal reflux disease) HTN (hypertension) Hypertension Hyperthyroidism Kidney stone Lymphoma Respiratory failure requiring intubation Status post placement of implantable loop recorder Stroke Surgical History History of cardiac cath Family History Unknown Myocardial infarction Social History Smoking Status: Never smoker Second Hand Exposure: No; Hx Alcohol Use: No Hx Substance Use: No Preferred Language: Panamanian Communication Ability: Effective Visual Impairment: Partially Limited Cafe Or Restaurant Manager Required: No Beliefs That Will Affect Care: None marital status: / Current Living Situation: Alone Current Living Situation Comment: unable to obtain How many Children do You have: 6 Feels Safe at Home: Yes Assistive Devices: Glasses and Oxygen - Continuous Physical Exam Physical Exam: Constitutional: Alert, oriented, in no acute distress. Supplemental O2. HEENT: Head is atraumatic and normocephalic. EOMs intact. Sclera anicteric. Face is symmetric. No perioral cyanosis. Mucous membranes moist. Neck: Supple, no JVD Pulmonary: Normal respiratory effort, clear to auscultation bilaterally Cardiac: Irregular rate and rhythm. 2/6 systolic murmur Extremities: 2+ radial pulses bilaterally. 2+ posterior tibialis pulses bilaterally. Trace pitting edema on the L, 1-2+ edema on the R fci to the knee. R post op shoe. No cyanosis or clubbing. Abdomen: Normal bowel sounds, soft, non-tender, no abdominal mass palpated Skin: Normal skin color, turgor, and pigmentation, no rash, no skin lesions Neurological: Patient is awake, alert, and oriented. Pleasant and cooperative. Answers questions appropriately. Speech is clear. Normal movement in all 4 extremities. Results & Data ([facility]) Vital Signs (Past 12 Hours) Vital Signs Temp Pulse Pulse Resp BP Pulse Ox 10/24/20 07:29 97.7 F 76 20 174/79 H 93 04/29/21 00:00 76 10/23/20 22:56 96.8 F L 78 18 104/66 90 Heart Failure Data/Metrics Heart Failure Type: Diastolic Ejection Fraction: 60-65% NYHA classification: III: Sx w/ ltd. activity Risk Stratification: C Dry Weight (kg): 207 Pacemaker: No Implanted Cardiac Defibrillator (ICD): No Bi-V Pacemaker: No Bi-V Defibrillator: No Diabetes Mellitus: No Evidenced Based Beta Zuleyka Therapy Beta Zuleyka Therapy: Yes Beta Zuleyka Name: Metoprolol Succinate TWIN/ARB/ARNI Therapy TWIN/ARB/ARNI Therapy: Yes TWIN/ARB/ARNI Name: Losartan Aldosterone Antagonist Therapy Aldosterone Antagonist Therapy: Not Indicated Coding Level of Care Code 39580 Initial In Care Lvl 3 Diagnoses Diastolic CHF I50.32 Heart failure chronicity: chronic (1) Diastolic CHF Heart failure chronicity: chronic Qualified Code(s): I50.32 - Chronic diastolic (congestive) heart failure
--- NOTE | 2020-10-24 15:10 | CT Scan Report ---
CT head/brain wo con CLINICAL HISTORY: SUBJECTIVE RIGHT SIDED WEAKNESS COMPARISON STUDY: 06/24/2018 TECHNIQUE: Axial CT of the brain is performed from the vertex to the skull base. IV contrast was not administered for this examination. A dose lowering technique was utilized adhering to the principles of ALARA. CT DOSE: 1386.75 mGy.cm FINDINGS: No intra or extra-axial mass lesions are visualized. There is no CT evidence of acute cortical infarc tion. There is no evidence of midline shift. There is no acute hemorrhage. No calvarial fractures ar e visualized. There are patchy white matter hypodensities likely on a small vessel basis. There is an old left carrie etal infarct. There are scattered cerebellar acute infarct. There is a right basal ganglia lacunar in farct versus dilated perivascular space. There is no evidence of pathologic ventricular dilatation. There is no evidence of acute sinusitis IMPRESSION: No acute intracranial findings ACT 112: Negative or not required by law. Electronically signed by: Ganesh Dimas M.D. 10/24/2020 3:09 PM
[2020-10-24] MEDS: LOSARTAN POTASSIUM 50 MG TAB PO SCH (21:00)
[2020-10-24] MEDS: QUEtiapine FUMARATE 25 MG TABLET PO SCH (21:02)
[2020-10-24] MEDS: rOPINIRole HCL 0.25 MG TABLET PO SCH (21:02)
[2020-10-24] MEDS ORDERED: MoRPHine SULFATE 2 MG/ML CARP IV STA (23:04)
--- NOTE | 2020-10-24 23:10 | Hospitalist Progress Note ---
Date of Service October 24, 2020 Assessment & Plan (1) Generalized weakness: Patient reports definitive right sided weakness since COVID-19 vaccination. Had extensive discussion with daughter Colin. Appears this weakness occurred over past few days. Patient however does not present with focal findings. Discussed CT head findings. 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 Unable to get MRI, patient refused. Loop recorder information was lost due to MRI attempt Patient is a high risk of CVA given atrial fibrillation now off any anticoagulation. I suspect he is more deconditioned from his recent COVID-19 vaccination in the setting of prior CVA. Family is not agreeable to placement as of yet. (2) EKG abnormalities: (3) Shortness of breath: Trial of duoneb in the ER. If helpful consider Rx for COPD exacerbation however breathing at baseline per his daughter at bedside. Patient appears to be breathing well at the moment. (4) Atrial fibrillation, permanent: Xarelto appears to have been stopped during most recent stay at [facility] earlier this month. Not restarted by cardiology. Unable to obtain CT scan of head. Otherwise can follow up as outpatient to determine ongoing anticoagulation. (5) Chronic obstructive pulmonary disease: Patient reportedly refuses inhalers at home. Initial both the patient and daughter did not admit he has this diagnosis although unclear for reason for inhalers otherwise. Recommend follow up with his PCP as I suspect this is driving much of his shortness of breath. (6) History of CVA (cerebrovascular accident): Patient denies any history of stroke but this is listed in his history. 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 Patient and his daughter unaware of this prior diagnosis (7) Toe fracture, right: Closed. Johnnie tape. Surgical shoe. Follow up with orthopedics as outpatient. Admission and Anticipated Discharge Date Admission Date: October 23, 2020 Subjective Patient reports no new symptoms today. He states he feels better. Nurses states he is more awake. Review of Systems Review of Systems: All systems reviewed & are unremarkable except as noted in HPI & below Physical Exam Physical Exam: Constitutional: well developed and + obese; + not well nourished and no acute distress Eyes: PERRL, conjunctivae normal, anicteric sclerae Cardiovascular: Rate/Rhythm: regular rate and + irregularly irregular Heart Sounds: no murmur Extremities: normal capillary refill and + pedal edema (1+ on right pre-tibial); no calf tenderness Gastrointestinal (Abdomen): normal bowel sounds, soft, nontender, no hepatosplenomegaly Musculoskeletal: Erythema and swelling surrounding right 1st toe, does not extend beyond toe. Nail bed appears intact Neurologic: moves all extremities and awake; not confused Motor/Sensory: no tremor and no pronator drift Psychiatric: Orientation: alert and oriented to person and place Genitourinary: no CVA tenderness Results & Data Results & Data ([facility]) Vital Signs (Past 12 Hours) Vital Signs Temp Pulse Pulse Resp BP Pulse Ox 10/24/20 19:46 36.7 C 61 18 108/70 92 10/24/20 14:44 36.5 C 60 20 130/77 95 10/24/20 14:20 79 PG Care Time/CCT Total # of Minutes Spent Total Time Spent with Patient: Total time spent is greater than 50% in coordination of care (as documented) at patient's floor/unit and/or counseling patient: Coding Level of Care Code 38106 Subseq Hosp Care Lvl 3 Diagnoses Generalized weakness R53.1 EKG abnormalities R94.31 Shortness of breath R06.02 Atrial fibrillation, permanent I48.21 Chronic obstructive pulmonary disease J41.0 COPD type: chronic bronchitis Chronic bronchitis type: simple History of CVA (cerebrovascular accident) Z86.73 Toe fracture, right S92.404A Encounter type: initial encounter Fracture alignment: nondisplaced Fracture type: closed Phalanx: unspecified phalanx Toe: great toe Time Spent (min) 45 (1) Chronic obstructive pulmonary disease COPD type: chronic bronchitis Chronic bronchitis type: simple Qualified Code(s): J41.0 - Simple chronic bronchitis (2) Toe fracture, right Encounter type: initial encounter Fracture alignment: nondisplaced Fracture type: closed Phalanx: unspecified phalanx Toe: great toe Qualified Code(s): S92.404A - Nondisplaced unspecified fracture of right great toe, initial encounter for closed fracture
[2020-10-24] MEDS ORDERED: LEVALBUTEROL HCL 0.63 MG/3 ML NEB NEB STA (23:35)
[2020-10-24] MEDS ORDERED: MELATONIN 3 MG TAB PO PRN (23:38)
--- NOTE | 2020-10-25 06:45 | XRay Report ---
XR chest 1V portable CLINICAL HISTORY: hypoxia COMPARISON STUDY: Chest radiograph October 22, 2020. FINDINGS: Cardiomegaly is noted. There is pulmonary vascular congestion. Left basilar opacity is note d. There is no pneumothorax. Possible small left pleural effusion is noted. IMPRESSION: 1. Interval development of left basilar opacity which may reflect pneumonia or atelectasis. Radiograp hic follow up is recommended. 2. Cardiomegaly. Pulmonary vascular congestion with suspected mild pleural edema. ACT 112: Negative or not required by law. Electronically signed by: Yuan Augustine M.D. 10/25/2020 6:43 AM
[2020-10-25] MEDS: ATORVASTATIN 40 MG TAB PO SCH (08:47)
[2020-10-25] MEDS: CALCIUM CITRATE 950 MG TAB PO SCH (08:47)
[2020-10-25] MEDS: BUMETANIDE 1 MG TAB PO SCH (08:48)
[2020-10-25] MEDS: METOPROLOL SUCC 25MG EXT REL TAB PO SCH (08:48)
[2020-10-25] MEDS: SERTRALINE HCL 50 MG TABLET PO SCH (08:48)
[2020-10-25] MEDS: methIMAzole 5 MG TABLET PO SCH (08:48)
[2020-10-25] MEDS: PANTOprazole 40 MG TAB PO SCH (08:49)
[2020-10-25] MEDS: ACETAMINOPHEN 500 MG TAB PO SCH ×3 (08:49→20:29)
[2020-10-25] MEDS: ASPIRIN 81 MG ECTAB PO SCH (08:49)
[2020-10-25] MEDS: POTASSIUM CHLORIDE 10 MEQ TABCR PO SCH ×2 (08:50→20:30)
[2020-10-25] MEDS: FERROUS SULFATE 325 MG TAB PO SCH ×2 (08:50→20:30)
[2020-10-25] MEDS: DOCUSATE SODIUM 100 MG CAP PO SCH ×2 (08:51→20:29)
[2020-10-25 12:28] LABS: Basophils # (auto) 0.01 K/uL (0-0.2); Basophils % (auto) 0.2 %; Eosinophils # (auto) 0.15 K/uL (0-0.5); Eosinophils % (auto) 3.5 %; Hematocrit (blood only) 35.6 % (42-52); Lymphocytes # (auto) 0.67 K/uL (1.2-3.4); Lymphocytes % (auto) 15.8 %; Mean Corpuscular Hemoglobin 29.2 pg (25-34); Mean Corpuscular Hgb Conc 30.9 g/dL (32-36); Mean Corpuscular Volume 94.4 fL (80-100); Mean Platelet Volume 10.5 fL (7.4-10.4); Monocytes % (auto) 16.5 %; Neutrophils # (auto) 2.72 K/uL (1.4-6.5); Platelet Count 144 K/uL (130-400); RDW Coefficient of Variation 18.4 % (11.5-14.5); RDW Standard Deviation 63.4 fL (36.4-46.3); Red Blood Count 3.77 M/uL (4.7-6.1); White Blood Count 4.25 K/uL (4.8-10.8)
[2020-10-25 12:48] LABS: Albumin Level 3.3 gm/dl (3.4-5.0); BUN Creatinine Ratio 20.9 (10-20); Calcium 8.7 mg/dl (8.5-10.1); Creatinine Clr Calc Pharmacy 48.1 ml/min; Est GFR (African American) 62.2; Est GFR (Non-African American) 53.7; Potassium 4.2 mmol/L (3.5-5.1)
[2020-10-25 12:58] LABS: Albumin Globulin Ratio 1.1 (0.9-2); Bilirubin,Total 0.7 mg/dl (0.2-1); Globulin 3.1 gm/dl (2.5-4.0); Total Protein 6.4 gm/dl (6.4-8.2)
--- NOTE | 2020-10-25 13:09 | XRay Report ---
XR chest 2V PA/lateral HISTORY: 89 years-old Male PNEUMONIA acute shortness of breath COMPARISON: Chest radiograph 10/24/2020 TECHNIQUE: AP and lateral views of the chest FINDINGS: Cardiac silhouette is enlarged. Small pleural effusions with mild bibasilar opacities, decreased in l eft lung base. Loop recorder device. Pulmonary vascular congestion. Mild interstitial coarsening. Deg enerative changes of the shoulders and spine. IMPRESSION: 1. Cardiomegaly with mild pulmonary edema. 2. Small pleural effusions with bibasilar opacities, slightly improved on the left suggestive of prob able atelectasis. Pneumonitis considered less likely. ACT 112: Negative or not required by law. The above report was generated using voice recognition software. It may contain grammatical, syntax o r spelling errors. Electronically signed by: Troy Calzada M.D. 10/25/2020 1:08 PM
--- NOTE | 2020-10-25 14:30 | Neurology Consultation ---
Date of Consultation October 25, 2020 Assessment & Plan (1) Right sided weakness: Matty Smiley is an 89 yo man w/ PMH of known AAA, HTN, AFib not on AC, hyperthyroidism, depression, B12 deficiency, CKDIII, lymphoma, h/o stroke (left posterior frontal lobe and bilateral cerebellar lobes), CHF and COPD who initially p/t [facility] with RLE swelling and c/f infection. Neurology consulted given c/f right sided weakness. # Right sided weakness: possibly stroke recrudescence in the setting of possible infection/increased recent stressors, though there is no difference on strength testing - recommend repeat CTH to r/o any changes c/w stroke (he is ok with having this completed) - would also check TSH, B12 and UA to r/o any other causes especially as he does have mild memory issues # History of multiple strokes in setting of A. fib: - recommend starting renally dosed apixaban given nonvalvular A. fib - work with PCP and stroke prevention goals including A1c less than 7, LDL less than 70 and BP less than 130/80 Thank you for this interesting consult. Plan of care discussed with primary team. Please call or text with questions. If above is unremarkable, he was okay for discharge from a neurological standpoint. (2) H/O: stroke: (3) Atrial fibrillation, permanent: (4) HTN (hypertension): History of Present Illness Attending Physician: Hakan Flood History of Present Illness Matty Smiley is an 89 yo man w/ PMH of known AAA, HTN, pAFIB not on AC, hyperthyroidism, depression, B12 deficiency, CKDIII, lymphoma, h/o stroke (left posterior frontal lobe and bilateral cerebellar lobes), CHF and COPD who initially p/t [facility] with RLE swelling and c/f infection. Neurology consulted given c/f right sided weakness. On examination, he reports that he came in initially for right foot symptoms and c/f infection. At some point, he noticed that his right proximal arm felt a bit weak but denied any weakness in his RLE/right face, N/T, facial droop, speech difficulty or vision changes. Denies headache. Reports that he has been taking medications as prescribed and recalls being taken off of xarelto recently due to fall with head trauma. On review of the record, WBC low at 4.25, hemoglobin low at 11 with MCV 94.4, platelets 144, INR 1.2, sodium 142, potassium 4.2, BUN 25, creatinine 1.2 with GFR 53.7, prior A1c 6.3, calcium initially low at 8.1 now within normal, AST mildly elevated at 42, ALT 21, phosphatase mildly elevated 133, no recent B12/TSH, no recent UA Covid negative. Imaging independently reviewed. CT head shows no hemorrhage, there are hypodensities in bilateral cerebellar hemispheres (R>L) and left posterior parietal lobe. Lower extremity venous Doppler negative for DVT. TTE showed EF 60-65%, mild LVH, flattened septum c/w RV overload, moderate MR, moderate TR. Allergies Allergy/AdvReac Type Severity Reaction Status Date / Time Iodinated Contrast Media Allergy Severe ANAPHYLAXIS Verified 10/22/20 14:00 Sulfa (Sulfonamide Allergy Unknown UNKNOWN Verified 10/22/20 14:00 Antibiotics) Home Medications Medication Instructions Recorded Confirmed Type calcium citrate [Calcitrate] 200 mg PO DAILY 12/14/18 10/22/20 History docusate sodium [Colace] 100 mg PO BID 12/14/18 10/22/20 History aspirin 81 mg chewable tablet 81 mg PO DAILY tab 01/20/19 10/22/20 History atorvastatin 40 mg tablet 40 mg PO DAILY tab 01/20/19 10/22/20 History methimazole 5 mg tablet 5 mg PO DAILY tab 01/20/19 10/22/20 History pantoprazole 40 mg tablet,delayed 40 mg PO 3XWK 01/20/19 10/22/20 History release quetiapine 50 mg tablet 50 mg PO HS tab 01/20/19 10/22/20 History sennosides 8.6 mg tablet 17.2 mg PO DAILY PRN tab 01/20/19 10/22/20 History sertraline 50 mg tablet 50 mg PO DAILY tab 01/20/19 10/22/20 History ropinirole 0.25 mg tablet 0.25 mg PO HS 03/09/19 10/22/20 History bumetanide 1 mg tablet 2 mg PO QAM 09/07/19 10/22/20 History ferrous sulfate 325 mg (65 mg 325 mg PO BID 09/07/19 10/22/20 History iron) tablet metoprolol succinate 25 mg 25 mg PO DAILY #90 tab 10/03/20 10/22/20 Rx tablet,extended release 24 hr losartan 50 mg PO HS 10/22/20 10/22/20 History potassium chloride 10 meq PO BID 10/22/20 10/22/20 History Patient History Medical History 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 Cancer lYMPHOMA Cholelithiasis Chronic obstructive pulmonary disease Congestive heart failure Depression GERD (gastroesophageal reflux disease) HTN (hypertension) Hypertension Hyperthyroidism Kidney stone Lymphoma Respiratory failure requiring intubation Status post placement of implantable loop recorder Stroke Surgical History History of cardiac cath Family History Unknown Myocardial infarction Social History Smoking Status: Never smoker Second Hand Exposure: No; Hx Alcohol Use: No Hx Substance Use: No Preferred Language: Vietnamese Communication Ability: Effective Visual Impairment: Partially Limited Manager Beverage Required: No Beliefs That Will Affect Care: None marital status: / Current Living Situation: Alone Current Living Situation Comment: unable to obtain How many Children do You have: 6 Feels Safe at Home: Yes Assistive Devices: Brace/Splint/Immobilizer, Glasses and Walker Review of Systems Review of Systems: 14 point review of systems completed and negative except as in HPI. Exam (Neuro) Physical Exam: General Exam: GEN: NAD, sitting in chair. HEENT: No conjunctival injection, no rhinorrhea. CV: RRR, no peripheral edema PULM: Nonlabored respirations on room air. Neuro Exam: MS: Awake and Alert. Oriented to person, place, and month/year. Speech fluent and appropriate without dysarthria or paraphasic errors. Language intact including naming, comprehension, repetition. Cognition and memory mildly impaired. Attention intact. No neglect. CN: Visual paulino full. No extinction to double simultaneous stimuli. Unable to visualize fundi on fundoscopic exam. PERRLA OU. EOMI without nystagmus. Facial sensation intact to LT. Facial muscles full and symmetric. Hearing intact to conversation. Shoulder shrug normal. Tongue midline. MOTOR: Normal bulk and tone. No pronator drift. BUE strength 5/5 at deltoids, biceps, triceps, wrist flexors and extensors, and hand grasp bilaterally. BLE strength 5/5 at iliopsoas, hamstrings, quadriceps bilaterally. REFLEXES: Trace at biceps, triceps, brachioradialis, absent patella and absent Achilles bilaterally. Flexor plantar responses bilaterally. SENSORY: Intact to LT without extinction to double simultaneous stimuli. Vibration diminished in BLEs up to the knees. COORDINATION: No dysmetria or ataxia on [id number] bilaterally. Normal Ann bilaterally. GAIT: deferred given physical status Results & Data ([facility]) Vital Signs (Past 12 Hours) Vital Signs Temp Pulse Pulse Resp BP Pulse Ox 10/25/20 11:03 36.7 C 64 20 99/64 L 93 10/25/20 08:17 36.4 C L 67 20 108/77 97 10/25/20 07:06 60 10/25/20 04:00 36.4 C L 75 22 119/80 95 PG Care Time/CCT Total # of Minutes Spent Total Time Spent with Patient: Total time spent is greater than 50% in coordination of care (as documented) at patient's floor/unit and/or counseling patient: Coding Level of Care Code 49472 Initial Inpt Care Lvl 3 Diagnoses Right sided weakness R53.1 H/O: stroke Z86.73 Atrial fibrillation, permanent I48.21 HTN (hypertension) I10 Hypertension type: essential hypertension (1) HTN (hypertension) Hypertension type: essential hypertension Qualified Code(s): I10 - Essential (primary) hypertension
[2020-10-25] MEDS: LOSARTAN POTASSIUM 50 MG TAB PO SCH (20:30)
[2020-10-25] MEDS: QUEtiapine FUMARATE 25 MG TABLET PO SCH (20:31)
[2020-10-25] MEDS: rOPINIRole HCL 0.25 MG TABLET PO SCH (20:31)
[2020-10-25] MEDS: APIXABAN 2.5 MG TAB PO SCH (20:35)
--- NOTE | 2020-10-25 21:14 | Hospitalist Progress Note ---
Date of Service October 25, 2020 Assessment & Plan (1) Generalized weakness: Patient reports definitive right sided weakness since COVID-19 vaccination. Had extensive discussion with daughter Colin. Appears this weakness occurred over past few days. Patient however does not present with focal findings. Discussed CT head findings. 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 Unable to get MRI, patient refused. Loop recorder information was lost due to MRI attempt Patient is a high risk of CVA given atrial fibrillation now off any anticoagulation. I suspect he is more deconditioned from his recent COVID-19 vaccination in the setting of prior CVA. on 10/25, patient appears improved. Awaiting placement. Patient wants to go home. Tried to reach daughter who prefers that e goes home from previous conversation, but she did not picker tender phone. Consulted Neuro: Will order repeat CT scan of head. (2) EKG abnormalities: (3) Shortness of breath: Trial of duoneb in the ER. If helpful consider Rx for COPD exacerbation however breathing at baseline per his daughter at bedside. Patient appears to be breathing well at the moment. (4) Atrial fibrillation, permanent: Xarelto appears to have been stopped during most recent stay at [facility] earlier this month. Not restarted by cardiology. Unable to obtain CT scan of head. Otherwise can follow up as outpatient to determine ongoing anticoagulation. (5) Chronic obstructive pulmonary disease: Patient reportedly refuses inhalers at home. Initial both the patient and daughter did not admit he has this diagnosis although unclear for reason for inhalers otherwise. Recommend follow up with his PCP as I suspect this is driving much of his shortness of breath. (6) History of CVA (cerebrovascular accident): Patient denies any history of stroke but this is listed in his history. 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 Patient and his daughter unaware of this prior diagnosis (7) Toe fracture, right: Closed. Johnnie tape. Surgical shoe. Follow up with orthopedics as outpatient. Admission and Anticipated Discharge Date Admission Date: October 23, 2020 Subjective 89 yo male reports feeling well. Patient is more awake. He knows where he is. He wants to go home. Review of Systems Review of Systems: All systems reviewed & are unremarkable except as noted in HPI & below Physical Exam Physical Exam: Constitutional: well developed and + obese; + not well nourished and no acute distress Eyes: PERRL, conjunctivae normal, anicteric sclerae Cardiovascular: Rate/Rhythm: regular rate and + irregularly irregular Heart Sounds: no murmur Extremities: normal capillary refill and + pedal edema (1+ on right pre-tibial); no calf tenderness Gastrointestinal (Abdomen): normal bowel sounds, soft, nontender, no hepatosplenomegaly Musculoskeletal: Erythema and swelling surrounding right 1st toe, does not extend beyond toe. Nail bed appears intact Neurologic: moves all extremities and awake; not confused Motor/Sensory: no tremor and no pronator drift Psychiatric: Orientation: alert and oriented to person and place Genitourinary: no CVA tenderness Results & Data Results & Data ([facility]) Vital Signs (Past 12 Hours) Vital Signs Temp Pulse Pulse Resp BP BP Pulse Ox 10/25/20 19:52 36.6 C 72 18 122/73 91 10/25/20 15:41 36.6 C 67 20 107/66 93 10/25/20 14:20 69 10/25/20 11:03 36.7 C 64 20 99/64 L 93 PG Care Time/CCT Total # of Minutes Spent Total Time Spent with Patient: Total time spent is greater than 50% in coordination of care (as documented) at patient's floor/unit and/or counseling patient: Coding Level of Care Code 91350 Subseq Hosp Care Lvl 2 Diagnoses Generalized weakness R53.1 EKG abnormalities R94.31 Shortness of breath R06.02 Atrial fibrillation, permanent I48.21 Chronic obstructive pulmonary disease J41.0 COPD type: chronic bronchitis Chronic bronchitis type: simple History of CVA (cerebrovascular accident) Z86.73 Toe fracture, right S92.404A Encounter type: initial encounter Fracture alignment: nondisplaced Fracture type: closed Phalanx: unspecified phalanx Toe: great toe Time Spent (min) 25 (1) Chronic obstructive pulmonary disease COPD type: chronic bronchitis Chronic bronchitis type: simple Qualified Code(s): J41.0 - Simple chronic bronchitis (2) Toe fracture, right Encounter type: initial encounter Fracture alignment: nondisplaced Fracture type: closed Phalanx: unspecified phalanx Toe: great toe Qualified Code(s): S92.404A - Nondisplaced unspecified fracture of right great toe, initial encounter for closed fracture
[2020-10-25 23:48] LABS: BUN Creatinine Ratio 21.2 (10-20); Calcium 7.8 mg/dl (8.5-10.1); Creatinine Clr Calc Pharmacy 47.7 ml/min; Est GFR (African American) 61.6; Est GFR (Non-African American) 53.1; Magnesium 2.3 mg/dl (1.8-2.4); Phosphorus 2.6 mg/dl (2.5-4.9); Potassium 4.1 mmol/L (3.5-5.1)
[2020-10-26 02:16] LABS: Appearance Urine Clear (Clear); Bacteria Urine Automated Negative (Negative); Bilirubin Urine Negative (Negative); Blood Urine Negative (Negative); Cast Urine Automated 0 /lpf (0-5); Color Urine Yellow; Glucose Urine UA Negative (Negative); Ketones Urine Negative (Negative); Leukocyte Esterase Urine Negative (Negative); Nitrite Urine Negative (Negative); Protein Urine Trace (Negative); RBC Urine Automated 0-4 /hpf (0-4); Specific Gravity Urine 1.023 (1.000-1.030); Urobilinogen Urine Negative (Negative)
[2020-10-26] MEDS: APIXABAN 2.5 MG TAB PO SCH (07:35)
[2020-10-26] MEDS: methIMAzole 5 MG TABLET PO SCH (07:36)
[2020-10-26] MEDS: ATORVASTATIN 40 MG TAB PO SCH (07:36)
[2020-10-26] MEDS: ASPIRIN 81 MG ECTAB PO SCH (07:37)
[2020-10-26] MEDS: BUMETANIDE 1 MG TAB PO SCH (07:37)
[2020-10-26] MEDS: METOPROLOL SUCC 25MG EXT REL TAB PO SCH (07:37)
[2020-10-26] MEDS: DOCUSATE SODIUM 100 MG CAP PO SCH (07:38)
[2020-10-26] MEDS: CALCIUM CITRATE 950 MG TAB PO SCH (07:38)
[2020-10-26] MEDS: POTASSIUM CHLORIDE 10 MEQ TABCR PO SCH (07:38)
[2020-10-26] MEDS: FERROUS SULFATE 325 MG TAB PO SCH (07:38)
[2020-10-26] MEDS: ACETAMINOPHEN 500 MG TAB PO SCH ×2 (07:39→12:57)
--- NOTE | 2020-10-26 09:27 | CT Scan Report ---
CT head/brain wo con CLINICAL HISTORY: Right-sided weakness. Possible acute stroke COMPARISON STUDY: 10/24/2020 TECHNIQUE: Axial CT of the brain is performed from the vertex to the skull base. IV contrast was not administered for this examination. A dose lowering technique was utilized adhering to the principles of ALARA. CT DOSE: 958.25 mGy.cm FINDINGS: No intra or extra-axial mass lesions are visualized. There is no CT evidence of acute cortical infarc tion. There is no evidence of midline shift. There is no acute hemorrhage. No calvarial fractures ar e visualized. There are patchy white matter hypodensities likely on a small vessel basis. There is an old left carrie etal lobe infarct. There is an old right cerebellar lacunar infarct. There is no evidence of pathologic ventricular dilatation. There is no evidence of acute sinusitis IMPRESSION: No acute intracranial findings ACT 112: Negative or not required by law. Electronically signed by: Ganesh Dimas M.D. 10/26/2020 9:25 AM
--- NOTE | 2020-10-27 21:06 | Electrocardiogram Report ---
Test Reason : Blood Pressure : / mmHG Vent. Rate : 065 BPM Atrial Rate : 044 BPM P-R Int : 000 ms QRS Dur : 168 ms QT Int : 512 ms P-R-T Axes : 000 099 043 degrees QTc Int : 532 ms Atrial fibrillation with premature ventricular or aberrantly conducted complexes Right bundle branch block T wave abnormality, consider lateral ischemia Abnormal ECG When compared with ECG of 22-OCT-2020 14:40, No significant change was found Confirmed by Toan Garcia ([id number]) on 10/27/2020 9:05:51 PM Referred By: REFERRED SELF Confirmed By:Toan Garcia
--- NOTE | 2020-10-31 09:32 | Discharge Summary ---
Date of Service October 26, 2020 Admission HPI Per Admitting Provider Matty Smiley is an 89 year old male who presents to the ER with erythema and swelling in his right 1st toe. This was determined to be fractured while in the ER although the patient also has multiple ongoing acute on chronic complaints. He reports feeling generally sick ever since having his second COVID-19 vaccination. Feels weaker on the right side than left. No change in speech, hearing, vision or sensation. His daughter at bedside feels his mental state has changed although patient seen after lorazepam given therefore difficult to know whether he is at baseline. He also reports shortness of breath, although his daughter at bedside reports this is normal for him and he refuses to take his inhalers at home. He denies any fever, chills, no cough, loss of taste or smell, abdominal pain. He was recently hospitalized in [facility] from September 26- after an episode of syncope. Per cardiology note no definitive cause of syncope was found. Xarelto was discontinued during his hospitalization due to his age, numerous comorbidities, and his episode of syncope. In the ER CXR showed cardiomegaly with pulmonary artery hypertension. He was felt to be hypervolemic therefore treated Lasix 40mg IV. He was given 0.25mg lorazepam IV which caused excessive sedation. He was referred to medicine for admission and ongoing management of CHF exacerbation. Principal Diagnosis generalized weakness Discharge Exam Constitutional: well developed and + obese; + not well nourished and no acute distress Eyes: PERRL, conjunctivae normal, anicteric sclerae Cardiovascular: Rate/Rhythm: regular rate and + irregularly irregular Heart Sounds: no murmur Extremities: normal capillary refill and + pedal edema (1+ on right pre-tibial); no calf tenderness Gastrointestinal (Abdomen): normal bowel sounds, soft, nontender, no hepatosplenomegaly Musculoskeletal: Erythema and swelling surrounding right 1st toe, does not extend beyond toe. Nail bed appears intact Neurologic: moves all extremities and awake; not confused Motor/Sensory: no tremor and no pronator drift Psychiatric: Orientation: alert and oriented to person and place Genitourinary: no CVA tenderness Discharge Data Allergies Allergy/AdvReac Type Severity Reaction Status Date / Time Iodinated Contrast Media Allergy Severe ANAPHYLAXIS Verified 10/22/20 14:00 Sulfa (Sulfonamide Allergy Unknown UNKNOWN Verified 10/22/20 14:00 Antibiotics) Consultations 10/22/20 17:44 ED Decision to Admit Stat 10/23/20 10:43 [facility] CHF Program Referral Routine 10/24/20 19:19 Consult Neurology Routine Ordered Studies 10/22/20 14:33 US venous doppler LE BI Stat 10/24/20 14:06 CT head/brain wo con Routine 10/25/20 16:16 CT head/brain wo con Routine Hospital Course (1) Generalized weakness: Patient reports definitive right sided weakness since COVID-19 vaccination. Had extensive discussion with daughter Colin. Appears this weakness occurred over past few days. Patient however does not present with focal findings. Discussed CT head findings. 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 Unable to get MRI, patient refused. Loop recorder information was lost due to MRI attempt Patient is a high risk of CVA given atrial fibrillation now off any anticoagulation. I suspect he is more deconditioned from his recent COVID-19 vaccination in the setting of prior CVA. on 10/25, patient appears improved. Awaiting placement. Patient wants to go home. Tried to reach daughter who prefers that e goes home from previous conversation, but she did not poultry picking machine tender phone. Consulted Neuro: Will order repeat CT scan of head. On 10/26 Patient continue to do well. Had extensive discussion with daughter on the phone and discussed discharge planning. Will restart eliquis at renal dose. Patient's risk of stroke is higher given previous lacunar strokes. Explained risk benefit to daughter and she is agreeable. Patient will also benefit from home health. Patient will stay with daughter on the weekend. Patient will f/u with Dr. parrish as an outpatient and followup with Dr. Glasgow for his toe fracture. (2) EKG abnormalities: (3) Shortness of breath: Trial of duoneb in the ER. If helpful consider Rx for COPD exacerbation however breathing at baseline per his daughter at bedside. Patient appears to be breathing well at the moment. (4) Atrial fibrillation, permanent: Xarelto appears to have been stopped during most recent stay at [facility] earlier this month. Not restarted by cardiology. Unable to obtain CT scan of head. Otherwise can follow up as outpatient to determine ongoing anticoagulation. (5) Chronic obstructive pulmonary disease: Patient reportedly refuses inhalers at home. Initial both the patient and daughter did not admit he has this diagnosis although unclear for reason for inhalers otherwise. Recommend follow up with his PCP as I suspect this is driving much of his shortness of breath. (6) History of CVA (cerebrovascular accident): Patient denies any history of stroke but this is listed in his history. 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 Patient and his daughter unaware of this prior diagnosis (7) Toe fracture, right: Closed. Johnnie tape. Surgical shoe. Follow up with orthopedics as outpatient. Total Time Total Time Spent Total Time Spent (In Minutes): 32 Total Time Includes: Examination of the Patient, Discharge Planning and Medication Reconciliation Discharge Plan Discharge Items Patient Disposition: Home - Home Health Services Reason For Visit: ACUTE CHF, SHORTNESS OF BREATH Discharge Diagnosis: Short of breath Activity: Resume your previous activity Non-emergency contact: Primary Care Provider Call non-emergency contact if: you have any medication questions Follow-up/Referrals: Hakan Parrish [Primary Care Provider] - (A follow up appt will be made for you to visit your PCP. A hospital spinning frame changer will be phoning you with this information.) Bryon Glasgow DO [Staff Physician] - Diet: Heart Healthy and Low Sodium (2gm) Addtl Attending Provider Instructions: Restarted Eliquis given your history of strokes, which outweigh risk of bleeding from falling. A stroke will cause end organ damage, a bleed can be treated and reversed. Firm shoe with weight bearing as tolerated. Followup with Dr. Torrez or Tom Domingo with [facility] next week. Followup with PCP in 1-2 weeks. Call your Primary Care doctor if any of the following symptoms or problems start or get worse: * Shortness of breath or difficulty breathing * Wake up at night short of breath * Chest pain * Cough * Swelling of your hands, feet, or legs * More fatigued or tired with your normal activity * Palpitations - sudden fast heart beats WEIGHT * Weigh yourself every morning after using the bathroom. * Use the same scale. * Wear the same amount of clothing. * Write your weight down on a chart. * Call your Primary Care doctor if you gain more than 2-3 pounds in 1-2 days. MEDICATIONS * Use this discharge instruction sheet for medication instructions. * Take your medications at the time your doctor ordered. * Do not skip a dose of your medicines. * If you miss a dose of medicine, take it as soon as possible, but DO NOT DOUBLE A DOSE. * Read your medicine information when you get home. * Know all of the side effects of your medicine. If in doubt, ask your pharmacist * Call your Primary Care doctor's office if you have any side effects. * Be sure all of your doctors know what medicine and herbs you take (including cold, flu, and herbal medicine). Take the following with you to your follow-up doctor appointments: * Weight Chart * Medication List * List of questions Do not drink excessive alcohol, beer or wine. Pending Studies at Discharge: No Stand-Alone Forms: My [facility] [employer], Smoking Cessation Medications and DC Order Prescriptions: New Eliquis 2.5 mg Tablet 2.5 mg PO BID Qty: 60 RF: 0 Continued metoprolol succinate 25 mg tablet extended release 24 hr 25 mg PO DAILY Qty: 90 RF: 3 bumetanide 1 mg tablet 2 mg PO QAM RF: 0 ferrous sulfate 325 mg (65 mg iron) tablet 325 mg PO BID RF: 0 sennosides 8.6 mg tablet 17.2 mg PO DAILY PRN (Reason: Constipation) RF: 0 ropinirole 0.25 mg tablet 0.25 mg PO HS RF: 0 aspirin [Aspirin Childrens] 81 mg tablet,chewable 81 mg PO DAILY RF: 0 atorvastatin 40 mg tablet 40 mg PO DAILY RF: 0 methimazole 5 mg tablet 5 mg PO DAILY RF: 0 quetiapine 50 mg tablet 50 mg PO HS RF: 0 sertraline 50 mg tablet 50 mg PO DAILY RF: 0 docusate sodium [Colace] 100 mg Capsule 100 mg PO BID RF: 0 calcium citrate [Calcitrate] 200 mg (950 mg) tablet 200 mg PO DAILY RF: 0 pantoprazole [Protonix] 40 mg tablet,delayed release (DR/EC) 40 mg PO 3XWK RF: 0 losartan 50 mg tablet 50 mg PO HS RF: 0 potassium chloride 10 mEq capsule, extended release 10 meq PO BID RF: 0 Discharge Orders: Discharge Order (Routine); Ordered 10/26/20 Ordered By: Hakan House/Other Patient Handouts: Using Blood Thinners (Anticoagulants), Controlling High Blood Pressure, Stroke Prevent Another Caregiver Admission Data Admit Date/Time: 10/22/20 19:24 Attending Provider: Hakan Flood Admit Provider: Tex Alejandre Primary Care Provider: Hakan Parrish Other Providers: Tex Alejandre ; Kenroy Rowland ; Jacinta Burns Other Interventions: Discharge Summary Assessment (RN) Last Done: 10/26/20 14:06 Coding Level of Care Code D/C Day Management >30 mins Diagnoses Generalized weakness R53.1 EKG abnormalities R94.31 Shortness of breath R06.02 Atrial fibrillation, permanent I48.21 Chronic obstructive pulmonary disease J41.0 COPD type: chronic bronchitis Chronic bronchitis type: simple History of CVA (cerebrovascular accident) Z86.73 Toe fracture, right S92.404A Encounter type: initial encounter Toe: great toe Fracture type: closed Phalanx: unspecified phalanx Fracture alignment: nondisplaced
== END 2020-10-26 16:16 | disposition home health service (06) ==
LOC: 2W 13:01 → ED 13:01 → SUATTDRO 19:24 → 2W 21:21

== ENCOUNTER 2020-11-22 16:42 | Inpatient (IN) ==
[2020-11-22] MEDS ORDERED: ONDANSETRON INJ 2 MG/ML 2 ML VIAL IV STA (17:06)
[2020-11-22] MEDS ORDERED: fentaNYL citrate 100 MCG/2 ML VIAL IV STA (17:06)
--- NOTE | 2020-11-22 17:10 | Emergency Department Note ---
History of Present Illness General Chief complaint: Hypotension Time Seen by Provider: 11/22/20 16:55 Source: patient Mode of arrival: EMS History of Present Illness Provider complaint: Right leg pain Onset (ago): hour(s) Location: hip Radiation: extremity (Into the right thigh) Severity: severe Quality: + sharp Exacerbated By: + movement Associated symptoms: no chest pain, no fever/chills, no headaches, no nausea/vomiting and no shortness of breath This is an 89-year-old male brought in for evaluation for frequent falls and hypotension for a week. The patient apparently has been hypotensive throughout the week. He has been given fluid boluses by home health which improved his blood pressure. He had chest pain coming in today by ambulance. He is complaining mostly of right hip pain at this time. He believes he fell on it. He describes it as sharp. He rates it a 10 out of 10 in severity. It is worse with movement. He does state that he had chest pain earlier today on the right side. He denies any headache. He has had no fever, cough or cold symptoms, abdominal pain, vomiting or diarrhea. He denies any black or bloody stools. According to home health he has been having hallucinations throughout the week. Home Medications Medication Instructions Recorded Confirmed Type aspirin [Aspir-Low] 81 mg PO DAILY 11/22/20 11/22/20 History atorvastatin 40 mg PO HS 11/22/20 11/22/20 History bumetanide 2 mg PO QAM 11/22/20 11/22/20 History calcium citrate 200 mg PO BID 11/22/20 11/22/20 History cholecalciferol (vitamin D3) 125 mcg PO WK 11/22/20 11/22/20 History [Vitamin D3] docusate sodium [Colace] 100 mg PO BID 11/22/20 11/22/20 History ferrous sulfate 325 mg PO BID 11/22/20 11/22/20 History fluticasone propion-salmeterol 1 ea INHALATION BID 11/22/20 11/22/20 History [Advair Diskus] ipratropium-albuterol 3 ml INHALATION Q4H PRN 11/22/20 11/22/20 History methimazole 5 mg PO DAILY 11/22/20 11/22/20 History metoprolol succinate 25 mg PO DAILY 11/22/20 11/22/20 History multivitamin 1 tab PO DAILY 11/22/20 11/22/20 History pantoprazole 40 mg PO DAILY 11/22/20 11/22/20 History polyethylene glycol 3350 [Miralax] 17 g PO DAILY PRN 11/22/20 11/22/20 History potassium chloride 10 meq PO QPM 11/22/20 11/22/20 History Allergies Allergy/AdvReac Type Severity Reaction Status Date / Time Iodinated Contrast Media Allergy Severe ANAPHYLAXIS Verified 11/22/20 20:54 Sulfa (Sulfonamide Allergy Unknown UNKNOWN Verified 11/22/20 20:54 Antibiotics) Past Med/Surg History Medical History 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 Cancer lYMPHOMA Cholelithiasis Chronic obstructive pulmonary disease Congestive heart failure Depression GERD (gastroesophageal reflux disease) HTN (hypertension) Hypertension Hyperthyroidism Kidney stone Lymphoma Respiratory failure requiring intubation Status post placement of implantable loop recorder Stroke Surgical History History of cardiac cath Family History Unknown Myocardial infarction Social History Smoking Status: Never smoker Second Hand Exposure: No; Hx Alcohol Use: No Hx Substance Use: No Preferred Language: Luxembourger Communication Ability: Effective Visual Impairment: Partially Limited Grass Farmer Required: No Beliefs That Will Affect Care: None marital status: / Current Living Situation: Alone Current Living Situation Comment: caregiver 24 hour How many Children do You have: 6 Other Information That Helps Us Care for You: No Feels Safe at Home: Yes Safety Concerns: Feels Safe At This Time Assistive Devices: Walker Review of Systems See HPI for pertinent positives & negatives. and A total of 10 systems reviewed and were otherwise negative Physical Exam Vital Signs Vital Signs - 24 hr 11/22/20 16:45 11/22/20 16:54 11/22/20 17:00 Temperature 36.8 C Temperature Source Oral Pulse Rate 80 73 72 Pulse Rate [Right Finger] Pulse Rate from SpO2 Sensor Pulse Rhythm Regular Respiratory Rate 16 16 15 Respiratory Effort / Characteristics Non-Labored Spontaneous Respiratory Depth Normal Respiratory Pattern Regular Blood Pressure 87/61 L 87/61 L Blood Pressure [Right Arm] Blood Pressure Mean 69 69 Blood Pressure Mean [Right Arm] Pulse Oximetry 93 Oxygen Delivery Method Room Air Oxygen Flow Rate Sepsis Recent Fever Within 48 Hours No Sepsis New/Unexplained Change in Mental Status No Sepsis Action Taken by Nursing No Action Required 11/22/20 17:15 11/22/20 17:30 11/22/20 17:37 Temperature Temperature Source Pulse Rate 71 Pulse Rate [Right Finger] Pulse Rate from SpO2 Sensor 72 72 78 Pulse Rhythm Respiratory Rate 24 Respiratory Effort / Characteristics Respiratory Depth Respiratory Pattern Blood Pressure 96/63 L Blood Pressure [Right Arm] Blood Pressure Mean 74 Blood Pressure Mean [Right Arm] Pulse Oximetry 90 Oxygen Delivery Method Oxygen Flow Rate Sepsis Recent Fever Within 48 Hours Sepsis New/Unexplained Change in Mental Status Sepsis Action Taken by Nursing 11/22/20 18:00 11/22/20 18:36 11/22/20 18:37 Temperature Temperature Source Pulse Rate 69 72 Pulse Rate [Right Finger] Pulse Rate from SpO2 Sensor 75 72 Pulse Rhythm Respiratory Rate Respiratory Effort / Characteristics Respiratory Depth Respiratory Pattern Blood Pressure 91/59 L Blood Pressure [Right Arm] Blood Pressure Mean 69 Blood Pressure Mean [Right Arm] Pulse Oximetry 95 94 Oxygen Delivery Method Oxygen Flow Rate Sepsis Recent Fever Within 48 Hours Sepsis New/Unexplained Change in Mental Status Sepsis Action Taken by Nursing 11/22/20 18:45 11/22/20 19:00 11/22/20 19:15 Temperature Temperature Source Pulse Rate 75 82 76 Pulse Rate [Right Finger] Pulse Rate from SpO2 Sensor 79 79 79 Pulse Rhythm Respiratory Rate 30 H 21 18 Respiratory Effort / Characteristics Respiratory Depth Respiratory Pattern Blood Pressure Blood Pressure [Right Arm] Blood Pressure Mean Blood Pressure Mean [Right Arm] Pulse Oximetry 91 Oxygen Delivery Method Oxygen Flow Rate Sepsis Recent Fever Within 48 Hours Sepsis New/Unexplained Change in Mental Status Sepsis Action Taken by Nursing 11/22/20 19:25 11/22/20 19:34 11/22/20 19:36 Temperature 36.6 C Temperature Source Oral Pulse Rate 80 73 Pulse Rate [Right Finger] 76 Pulse Rate from SpO2 Sensor 75 Pulse Rhythm Regular Respiratory Rate 32 H 26 H 18 Respiratory Effort / Characteristics Non-Labored Respiratory Depth Normal Respiratory Pattern Blood Pressure 82/56 L 82/56 L Blood Pressure [Right Arm] 91/59 L Blood Pressure Mean 64 64 Blood Pressure Mean [Right Arm] 69 Pulse Oximetry 100 94 93 Oxygen Delivery Method Nasal Cannula Oxygen Flow Rate 4 Sepsis Recent Fever Within 48 Hours Sepsis New/Unexplained Change in Mental Status Sepsis Action Taken by Nursing 11/22/20 19:53 11/22/20 20:08 11/22/20 20:38 Temperature 37.2 C 36.3 C L 36.9 C Temperature Source Oral Oral Oral Pulse Rate 74 71 66 Pulse Rate [Right Finger] Pulse Rate from SpO2 Sensor Pulse Rhythm Regular Regular Respiratory Rate 20 25 H 21 Respiratory Effort / Characteristics Respiratory Depth Respiratory Pattern Blood Pressure 96/54 L 86/45 L 87/58 L Blood Pressure [Right Arm] Blood Pressure Mean 68 58 67 Blood Pressure Mean [Right Arm] Pulse Oximetry 92 96 96 Oxygen Delivery Method Oxygen Flow Rate 3 3 Sepsis Recent Fever Within 48 Hours Sepsis New/Unexplained Change in Mental Status Sepsis Action Taken by Nursing 11/22/20 20:54 Temperature Temperature Source Pulse Rate Pulse Rate [Right Finger] 67 Pulse Rate from SpO2 Sensor Pulse Rhythm Respiratory Rate 16 Respiratory Effort / Characteristics Respiratory Depth Respiratory Pattern Blood Pressure Blood Pressure [Right Arm] 105/49 L Blood Pressure Mean Blood Pressure Mean [Right Arm] 67 Pulse Oximetry 95 Oxygen Delivery Method Nasal Cannula Oxygen Flow Rate 3 Sepsis Recent Fever Within 48 Hours Sepsis New/Unexplained Change in Mental Status Sepsis Action Taken by Nursing Constitutional: Vital signs reviewed. Crying out in pain about his right hip. Eyes: Pupils are equal round reactive to light. Conjunctiva are noninjected. ENT: Pharynx is clear without erythema or exudate. Mucous membranes are moist. No midline tenderness to cervical spine. Trachea is midline. Respiratory: Clear to auscultation bilaterally. Breath sounds are equal bilaterally. Cardiovascular: Regular rate and rhythm. No rubs or gallops. GI: Soft, nondistended and nontender. Bowel sounds are present. No pulsatile masses. Rectal: Guaiac positive dark brown stool. Musculoskeletal: Significant tenderness and bruising to the right hip. There is also bruising to the left of the umbilicus as well as the right lower flank. Tenderness to the right ribs as well without flail segment or crepitus. Integumentary: No cyanosis. or jaundice. Neurological: The patient is awake and alert. Moves all extremities. Psychiatric: Normal affect. Not anxious appearing. Course Administered Medications Discontinued Medications Fentanyl Citrate (Fentanyl Citrate 100 Mcg/2 Ml Vial) 50 mcg IV NOW STA Stop: 11/22/20 17:07 Last Admin: 11/22/20 17:16 Dose: 50 mcg Documented by: [id number] Sodium Chloride (Nss 1000ml) 250 mls @ 999 mls/hr IV .Q16M ONE Stop: 11/22/20 18:58 Last Admin: 11/22/20 20:33 Dose: Not Given Documented by: [id number] Calcium Gluconate () 1,000 mg in 60 mls @ 240 mls/hr IV NOW STA Stop: 11/22/20 20:27 Last Infusion: 11/22/20 21:10 Dose: 0 mls/hr Documented by: [id number] Admin: 11/22/20 20:54 Dose: 240 mls/hr Documented by: [id number] Ondansetron HCl (Ondansetron Inj 2 Mg/Ml 2 Ml Vial) 4 mg IV NOW STA Stop: 11/22/20 17:07 Last Admin: 11/22/20 17:16 Dose: 4 mg Documented by: [id number] Critical Care Time Critical Care Time: Yes Total Critical Care Time: 50 I have personally spent approximately 50 minutes of critical care time in the direct management of this patient. This includes bedside care, interpretation of diagnostic studies, and testing, discussion with consultants, patient, and family members, and other required patient management activities. These minutes are in excess of all separately billable procedures. Medical Decision Making Differential Diagnosis Hip fracture, rib fracture, pneumothorax, abdominal aortic aneurysm dissection, anemia Medical Records Attestation: I reviewed the patient's medical records. I did perform a limited focused review of portions of the patient's old chart on the electronic medical record. The patient was admitted last month for right- sided weakness. He had a negative head CT. Home Medications Current Medication List: was personally reviewed by me Laboratory Data Attestation: I reviewed the patient's lab results. Result diagrams: 11/22/20 17:38 11/22/20 17:38 Lab Results 11/22/20 11/22/20 11/22/20 Range/Units 17:20 17:20 17:38 WBC (4.8-10.8) K/uL RBC (4.7-6.1) M/uL Hgb (14.0-18.0) g/dL Hct (42-52) % MCV (80-100) fL MCH (25-34) pg MCHC (32-36) g/dL RDW Std Deviation (36.4-46.3) fL RDW Coeff of Jennifer (11.5-14.5) % Plt Count (130-400) K/uL MPV (7.4-10.4) fL Immature Gran % (Auto) % Neut % (Auto) % Lymph % (Auto) % Brantley % (Auto) % Eos % (Auto) % Baso % (Auto) % Neut # (Auto) (1.4-6.5) K/uL Lymph # (Auto) (1.2-3.4) K/uL Brantley # (Auto) (0.11-0.59) K/uL Eos # (Auto) (0-0.5) K/uL Baso # (Auto) (0-0.2) K/uL Immature Gran # (Auto) (0.00-0.02) K/uL Absolute Nucleated RBC (0-0) K/uL Nucleated RBC % (auto) % Polychromasia Hypochromasia Schistocytes PT (9.0-12.0) Seconds INR (0.9-1.1) APTT (21.0-31.0) Seconds PTT Ratio Sodium 138 (136-145) mmol/L Potassium 4.7 (3.5-5.1) mmol/L Chloride 109 H (98-107) mmol/L Carbon Dioxide 24 (21-32) mmol/L Anion Gap 5.0 (3-11) BUN 47 H (7-18) mg/dl Creatinine 1.77 H (0.6-1.4) mg/dl Est Cr Clr Drug Dosing 32.6 ml/min Est GFR ( Amer) 38.9 ml/min Est GFR (Non-Af Amer) 33.5 ml/min BUN/Creatinine Ratio 26.5 H (10-20) Glucose 104 H (70-99) mg/dl Calcium 7.5 L (8.5-10.1) mg/dl Phosphorus (2.5-4.9) mg/dl Magnesium (1.8-2.4) mg/dl Total Bilirubin 0.8 (0.2-1) mg/dl AST 50 H (15-37) U/L ALT 67 (12-78) U/L Alkaline Phosphatase 160 H (45-117) U/L Total Protein 5.7 L (6.4-8.2) gm/dl Albumin 2.8 L (3.4-5.0) gm/dl Globulin 2.9 (2.5-4.0) gm/dl Albumin/Globulin Ratio 1.0 (0.9-2) Urine Color Urine Appearance (Clear) Urine pH (4.5-7.5) Ur Specific [place] (1.000-1.030) Urine Protein (Negative) Urine Glucose (UA) (Negative) Urine Ketones (Negative) Urine Blood (Negative) Urine Nitrite (Negative) Urine Bilirubin (Negative) Urine Urobilinogen (Negative) Ur Leukocyte Esterase (Negative) COVID-19 Eval Order Covid19 at [facility] SARS-CoV-2 (PCR) NEGATIVE (Negative) Blood Type Antibody Screen Crossmatch 11/22/20 11/22/20 11/22/20 Range/Units 17:38 17:38 17:38 WBC 5.63 (4.8-10.8) K/uL RBC 2.64 L (4.7-6.1) M/uL Hgb 7.1 L (14.0-18.0) g/dL Hct 23.4 L (42-52) % MCV 88.6 (80-100) fL MCH 26.9 (25-34) pg MCHC 30.3 L (32-36) g/dL RDW Std Deviation 55.4 H (36.4-46.3) fL RDW Coeff of Jennifer 17.1 H (11.5-14.5) % Plt Count 337 (130-400) K/uL MPV 9.5 (7.4-10.4) fL Immature Gran % (Auto) 0.2 % Neut % (Auto) 57.0 % Lymph % (Auto) 23.8 % Brantley % (Auto) 16.5 % Eos % (Auto) 2.1 % Baso % (Auto) 0.4 % Neut # (Auto) 3.21 (1.4-6.5) K/uL Lymph # (Auto) 1.34 (1.2-3.4) K/uL Brantley # (Auto) 0.93 H (0.11-0.59) K/uL Eos # (Auto) 0.12 (0-0.5) K/uL Baso # (Auto) 0.02 (0-0.2) K/uL Immature Gran # (Auto) 0.01 (0.00-0.02) K/uL Absolute Nucleated RBC 0.34 H (0-0) K/uL Nucleated RBC % (auto) 6.0 % Polychromasia 2+ Hypochromasia Present Schistocytes 1+ PT 13.1 H (9.0-12.0) Seconds INR 1.3 H (0.9-1.1) APTT 26.6 (21.0-31.0) Seconds PTT Ratio 1.0 Sodium (136-145) mmol/L Potassium (3.5-5.1) mmol/L Chloride (98-107) mmol/L Carbon Dioxide (21-32) mmol/L Anion Gap (3-11) BUN (7-18) mg/dl Creatinine (0.6-1.4) mg/dl Est Cr Clr Drug Dosing ml/min Est GFR ( Amer) ml/min Est GFR (Non-Af Amer) ml/min BUN/Creatinine Ratio (10-20) Glucose (70-99) mg/dl Calcium (8.5-10.1) mg/dl Phosphorus (2.5-4.9) mg/dl Magnesium (1.8-2.4) mg/dl Total Bilirubin (0.2-1) mg/dl AST (15-37) U/L ALT (12-78) U/L Alkaline Phosphatase (45-117) U/L Total Protein (6.4-8.2) gm/dl Albumin (3.4-5.0) gm/dl Globulin (2.5-4.0) gm/dl Albumin/Globulin Ratio (0.9-2) Urine Color Urine Appearance (Clear) Urine pH (4.5-7.5) Ur Specific [place] (1.000-1.030) Urine Protein (Negative) Urine Glucose (UA) (Negative) Urine Ketones (Negative) Urine Blood (Negative) Urine Nitrite (Negative) Urine Bilirubin (Negative) Urine Urobilinogen (Negative) Ur Leukocyte Esterase (Negative) COVID-19 Eval Order SARS-CoV-2 (PCR) (Negative) Blood Type O Positive Antibody Screen NEGATIVE Crossmatch See Detail 11/22/20 11/22/20 Range/Units 17:38 19:41 WBC (4.8-10.8) K/uL RBC (4.7-6.1) M/uL Hgb (14.0-18.0) g/dL Hct (42-52) % MCV (80-100) fL MCH (25-34) pg MCHC (32-36) g/dL RDW Std Deviation (36.4-46.3) fL RDW Coeff of Jennifer (11.5-14.5) % Plt Count (130-400) K/uL MPV (7.4-10.4) fL Immature Gran % (Auto) % Neut % (Auto) % Lymph % (Auto) % Brantley % (Auto) % Eos % (Auto) % Baso % (Auto) % Neut # (Auto) (1.4-6.5) K/uL Lymph # (Auto) (1.2-3.4) K/uL [place] # (Auto) (0.11-0.59) K/uL Eos # (Auto) (0-0.5) K/uL Baso # (Auto) (0-0.2) K/uL Immature Gran # (Auto) (0.00-0.02) K/uL Absolute Nucleated RBC (0-0) K/uL Nucleated RBC % (auto) % Polychromasia Hypochromasia Schistocytes PT (9.0-12.0) Seconds INR (0.9-1.1) APTT (21.0-31.0) Seconds PTT Ratio Sodium (136-145) mmol/L Potassium (3.5-5.1) mmol/L Chloride (98-107) mmol/L Carbon Dioxide (21-32) mmol/L Anion Gap (3-11) BUN (7-18) mg/dl Creatinine (0.6-1.4) mg/dl Est Cr Clr Drug Dosing ml/min Est GFR ( Amer) ml/min Est GFR (Non-Af Amer) ml/min BUN/Creatinine Ratio (10-20) Glucose (70-99) mg/dl Calcium (8.5-10.1) mg/dl Phosphorus 4.1 (2.5-4.9) mg/dl Magnesium 2.6 H (1.8-2.4) mg/dl Total Bilirubin (0.2-1) mg/dl AST (15-37) U/L ALT (12-78) U/L Alkaline Phosphatase (45-117) U/L Total Protein (6.4-8.2) gm/dl Albumin (3.4-5.0) gm/dl Globulin (2.5-4.0) gm/dl Albumin/Globulin Ratio (0.9-2) Urine Color Yellow Urine Appearance Clear (Clear) Urine pH 5.0 (4.5-7.5) Ur Specific [place] 1.014 (1.000-1.030) Urine Protein Negative (Negative) Urine Glucose (UA) Negative (Negative) Urine Ketones Negative (Negative) Urine Blood Negative (Negative) Urine Nitrite Negative (Negative) Urine Bilirubin Negative (Negative) Urine Urobilinogen Negative (Negative) Ur Leukocyte Esterase Negative (Negative) COVID-19 Eval Order SARS-CoV-2 (PCR) (Negative) Blood Type Antibody Screen Crossmatch Imaging Data Radiologist's Impression: Cervical Spine CT 11/22/20 17:06 CT SCAN OF THE CERVICAL SPINE CLINICAL HISTORY: Fall. COMPARISON STUDY: CT of the cervical spine dated 06/24/2018. TECHNIQUE: CT scan of the cervical spine is performed from the skull base to the upper thoracic spine. Images are reviewed in the axial, sagittal, and coronal planes. IV contrast was not administered for this examination. A dose lowering technique was utilized adhering to the principles of ALARA. CT DOSE: 3196.59 mGy.cm FINDINGS: Skeletal structures: The skeletal structures are osteopenic. There is no evidenc e of fracture or subluxation involving the cervical spine. Vertebral body height is maintained. There is minimal retrolisthesis at C4-C5. Minimal anterolisthesis is seen at C5-C6, C6-C7, and C7-T1. Anterior osteophytes are seen throughout. There is straightening of the cervical lordosis. The odontoid process and lateral masses are intact. The atlantoaxial articulation is preserved noting productive degenerative change. The spinous processes appear intact. There is moderate to advanced multilevel cervical spondylosis. Uncovertebral and facet arthropathy contribute to neural foraminal stenosis at most levels. Intervertebral discs: There is moderate to advanced disc space narrowing all levels between C3-C4 and C7-T1. Central canal: Grossly patent. Soft tissues: The prevertebral and paraspinous soft tissues are within normal limits. The thyroid gland is enlarged and heterogeneous. There are numerous thyroid nodules which measure up to 2.4 cm. These are unchanged from 2018. There is atherosclerotic calcification of the carotid bulbs. Calvarium: The visualized calvarium at the skull base appears intact. Brain parenchyma: Partially visualized brain parenchyma at the skull base is within normal limits noting age-related involutional change. Sinuses and mastoids: There is trace mucosal thickening in the right maxillary antrum. The mastoid air cells are well pneumatized. Lung apices: Emphysematous change is noted. IMPRESSION: 1. There is no evidence of fracture or subluxation involving the cervical spine. 2. Osteopenia and spondylotic change as above. ACT 112: Negative or not required by law. Electronically signed by: Naseem Gonzalez M.D. 11/22/2020 7:[address] 11/22/20 17:06 CT SCAN OF THE BRAIN WITHOUT IV CONTRAST CLINICAL HISTORY: Fall. COMPARISON STUDY: CT of the brain dated 10/26/2020. TECHNIQUE: Unenhanced axial CT scan of the brain is performed from the vertex to the skull base. A dose lowering technique was utilized adhering to the principle s of ALARA. FINDINGS: Brain parenchyma: A focus of high left parietal encephalomalacia is consistent with a remote insult. There are age-related involutional changes noting [id number] subcortical and periventricular microangiopathic change. There is no hemorrhage, mass effect, or evidence of acute territorial ischemia by CT criteria. 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 Villanueva-white matter differentiation is preserved. No extra-axial fluid collection is seen. Ventricles, sulci, cisterns: Prominent secondary to involutional change. Intracranial vasculature: There is atherosclerotic calcification of the cavernous carotid arteries. Calvarium: The skeletal structures are osteopenic. No depressed calvarial fracture is identified. Sinuses and mastoids: The paranasal sinuses are clear. The mastoid air cells are well pneumatized. Orbits: The bony orbits are grossly intact. There are bilateral ocular lens implants. IMPRESSION: There is no hemorrhage, mass effect, or evidence of acute territorial ischemia by CT criteria. ACT 112: Negative or not required by law. Electronically signed by: Naseem Gonzalez M.D. 11/22/2020 6:37 PM Hip X-Ray 11/22/20 17:06 RIGHT HIP 2 VIEWS CLINICAL HISTORY: Fall. Right hip pain. FINDINGS: AP and crosstable lateral views of the right hip are compared to study dated 12/16/2018. The skeletal structures are osteopenic. No fracture is seen involving the right hip or the visualized right hemipelvis. Mild to moderate degenerative joint space narrowing is seen in the right hip. The overlying soft tissues are normal as visualized. IMPRESSION: No acute bony abnormality is identified. Electronically signed by: Naseem Gonzalez M.D. 11/22/2020 5:45 PM Chest X-Ray 11/22/20 17:13 SINGLE VIEW CHEST CLINICAL HISTORY: Atypical chest pain. FINDINGS: 3 AP, portable, supine chest radiographs are compared to study dated 10/25/2020 and correlated with chest CT dated 12/17/2018. The examination is degraded by portable technique and patient rotation. The heart is markedly enlarged noting atherosclerotic calcification of the thoracic aorta. Enlargement of the central pulmonary arteries suggests pulmonary artery hypertension. There is prominence of the pulmonary vasculature. Emphysema and chronic interstitial thickening is similar to previous. Paratracheal density corresponds to vascular structures when correlated with the previous chest CT. Atelectasis is noted at the left lung base. No airspace consolidation is seen typical for pneumonia and no large pleural effusion is identified. No pneumothorax is seen. The skeletal structures are osteopenic. There are healed left-sided rib fractures. IMPRESSION: 1. Marked cardiomegaly and emphysema with prominence of the central pulmonary ve ssels. Correlate clinically for evidence of mild congestive failure. 2. No airspace consolidation, large pleural effusion, or pneumothorax is seen. ACT 112: Negative or not required by law. Electronically signed by: Naseem Gonzalez M.D. 11/22/2020 5:57 PM Abdomen/Pelvis CT 11/22/20 17:18 CT SCAN OF THE ABDOMEN AND PELVIS WITHOUT IV CONTRAST CLINICAL HISTORY: Fall. Hypotension. COMPARISON STUDY: Abdominal CT dated 12/31/2018. TECHNIQUE: CT scan of the abdomen and pelvis is performed from the lung bases to the proximal femora. Images are reviewed in the axial, sagittal, and coronal planes. IV contrast was not administered for this examination due to a reported history of contrast allergy. Note that the examination is suboptimal without IV contrast. The examination is also degraded by motion artifact, and by streak artifact from the arms which could not be elevated above the abdomen. A dose lowering technique was utilized adhering to the principles of ALARA. CT DOSE: 1104.92 mGy.cm FINDINGS: Lung bases: The heart is enlarged and without pericardial effusion. Coronary arteries are densely calcified. There is a moderate hiatal hernia. Emphysematous change is suggested. There are small pleural effusions with bibasilar atelectasis. Foci of parenchymal scarring are seen at both lung bases. A 3 mm focus of pleural-based nodularity seen in the right lower lobe along the major fissure on image #13. There is no airspace consolidation typical for pneumonia. Liver: The unenhanced liver is normal in size, contour, and attenuation. There is no intrahepatic biliary ductal dilatation. A 1.3 cm cyst is noted in the right lobe. Gallbladder: There are calcified gallstones. The gallbladder is distended and question mild gallbladder wall thickening. There are calcified gallstones within the common bile duct seen on image #179. Spleen: Normal in size and attenuation. Pancreas: The unenhanced pancreas is moderately atrophic and grossly unremarkable. Adrenal glands: Unremarkable. Kidneys: The unenhanced kidneys are atrophic and without hydronephrosis. There are least 2 punctate nonobstructing right renal calculi. No left renal calculi are identified. A 2.7 cm cyst is noted in the interpolar right kidney. Abdominal vasculature: There is advanced atherosclerotic calcification of the abdominal aorta. 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 The aneurysm measures approximately 9 cm in craniocaudal length. Bowel: There is moderate to advanced colonic diverticulosis without CT evidence of acute diverticulitis. No bowel obstruction is seen. The appendix is not visualized. A small duodenal diverticulum is noted. Peritoneum: There is trace perihepatic and perisplenic ascites, as well as trace free fluid in the pelvis. Diffuse mesenteric edema is noted. No intraperitoneal free air is identified. Lymphadenopathy: None. Pelvic viscera: The prostate gland is diminutive versus surgically absent. The bladder is decompressed around a Root catheter and cannot be evaluated. There are bilateral fat-containing inguinal hernias. There is also fluid in the right hernia. Skeletal structures: The skeletal structures are osteopenic. No lytic or blastic lesions are seen. There is a nondisplaced left transverse process fracture of L1. This is best seen on image #137. There are acute right anterolateral 6th and 7th rib fractures. There are chronic/healed left-sided rib fractures. Soft tissues: There is mild body wall edema. IMPRESSION: 1. Suboptimal examination without IV contrast. There is also streak and motion artifact 2. There are acute right-sided rib fractures and an acute left transverse process fracture of L1 as above. 3. There is no evidence of solid organ injury in the abdomen or pelvis. Enhanced examination. Note that this is suboptimally assessed without IV contrast. 4. Cardiomegaly and emphysema. 5. Small pleural effusions. 6. There is a 4.9 x 5.9 cm abdominal aortic aneurysm as detailed above. There is no CT evidence of rupture at the time of examination. 7. Cholelithiasis and choledocholithiasis. The gallbladder is distended and there may be mild gallbladder wall thickening. Correlate with clinical and laboratory findings for evidence of acute cholecystitis. This could be further a ssessed with right upper quadrant ultrasound if clinically warranted. 8. There is trace abdominopelvic ascites as well as diffuse mesenteric edema. 9. Moderate to advanced colonic diverticulosis without CT evidence of acute diverticulitis. 10. Moderate hiatal hernia. 11. Right-sided nephrolithiasis. 12. Additional findings as above. ACT 112: Negative or not required by law. Electronically signed by: Naseem Gonzalez M.D. 11/22/2020 6:55 PM ECG Data Attestation: I personally reviewed and interpreted this ECG as follows: Indication: + chest pain Rate (beats per minute): 69 Rhythm: + atrial fibrillation ECG Intervals/blocks: + Right Bundle branch block ECG Findings: no PVCs MDM Narrative I did evaluate the patient as noted above. The patient is rather confused and so history is somewhat limited. He seems to be mostly complaining of pain to his right hip at this time. According to the nurse EMS hold her that he has been hypotensive on and off since Wednesday but responded to fluid boluses at home. He is hypotensive here. IV access was established. I did treat him with fentanyl 50 mcg IV and Zofran 4 mg IV for his right hip pain. I did place an order for continuous cardiac monitoring. The monitor showed atrial fibrillation at a rate of 72 bpm. I did order and personally review the patient's 12-lead EKG as described above. He has atrial fibrillation with no acute ischemia. I did order and personally reviewed the images of the patient's chest x-ray and hip x-rays as described above. He does not appear to have a pneumothorax. No obvious rib fractures are noted. No hip fracture is noted. I did order and review the patient's blood work as noted in the electronic medical record. His white count is not elevated but his hemoglobin is 7.1. This is down 11. I did perform a rectal examination and he is guaiac positive. Electrolytes demonstrate a chloride of 109 and a calcium of 7.5. His creatinine is elevated at 1.77. I did order a CT of the head, cervical spine, abdomen and pelvis. I did review the images myself as well as the radiology report as described above. He has rib fractures at ribs six and seven on the right side. He has some chronic healed fractures on the left side. There is a nondisplaced left transverse process fracture of L1. There is no evidence of dissection of the abdominal aortic aneurysm. No solid organ injury. He has no evidence of cervi vinicio fracture or acute intracranial process. His daughter did come to the hospital and I spoke to her about his test results. We also called his brother over the telephone so that he would be involved. He does have a living well. I did discuss with both of them what their goals were in terms of his treatment and they stated that he would not want anything heroic. After discussion they did agree to the blood transfusion which I did order. He was started in the emergency department. They do not want any invasive intervention such as central line placement, intubation or CPR. The case was discussed with the case aide. The hospitalist was informed. Screening Covid test was negative. Impression & Plan Hypotension due to blood loss, Anemia, Acute GI bleeding, SHAY (acute kidney injury), Multiple rib fractures, Falls frequently, Acute pain of right hip, Hypocalcemia Discharge Plan Visit Data Chief Complaint: Hypotension ED Provider: Rodger Rueda Discharge Problem: Hypotension due to blood loss, Anemia, Acute GI bleeding, SHAY (acute kidney injury), Multiple rib fractures, Falls frequently, Acute pain of right hip, Hypocalcemia Patient Disposition: Admitted As Inpatient Discharge Instructions Interventions: ED Discharge Assessment Last Done: 11/22/20 21:23 Discharge Problem: Anemia Qualifiers: Anemia type: unspecified type Qualified Code(s): D64.9 - Anemia, unspecified Multiple rib fractures Qualifiers: Encounter type: initial encounter Fracture type: closed Laterality: right Qualified Code(s): S22.41XA - Multiple fractures of ribs, right side, initial encounter for closed fracture
--- NOTE | 2020-11-22 17:46 | XRay Report ---
RIGHT HIP 2 VIEWS CLINICAL HISTORY: Fall. Right hip pain. FINDINGS: AP and crosstable lateral views of the right hip are compared to study dated 12/16/2018. The skeletal structures are osteopenic. No fracture is seen involving the right hip or the visualized ri ght hemipelvis. Mild to moderate degenerative joint space narrowing is seen in the right hip. The ove rlying soft tissues are normal as visualized. IMPRESSION: No acute bony abnormality is identified. Electronically signed by: Naseem Gonzalez M.D. 11/22/2020 5:45 PM
[2020-11-22 17:58] LABS: Basophils # (auto) 0.02 K/uL (0-0.2); Basophils % (auto) 0.4 %; Eosinophils # (auto) 0.12 K/uL (0-0.5); Eosinophils % (auto) 2.1 %; Hematocrit (blood only) 23.4 % (42-52); Hemoglobin 7.1 g/dL (14.0-18.0); Immature Granulocytes # (auto) 0.01 K/uL (0.00-0.02); Immature Granulocytes % (auto) 0.2 %; Lymphocytes # (auto) 1.34 K/uL (1.2-3.4); Lymphocytes % (auto) 23.8 %; Mean Corpuscular Hemoglobin 26.9 pg (25-34); Mean Corpuscular Hgb Conc 30.3 g/dL (32-36); Mean Corpuscular Volume 88.6 fL (80-100); Mean Platelet Volume 9.5 fL (7.4-10.4); Monocytes # (auto) 0.93 K/uL (0.11-0.59); Monocytes % (auto) 16.5 %; Neutrophils # (auto) 3.21 K/uL (1.4-6.5); Nucleated RBC # (auto) 0.34 K/uL (0-0); Platelet Count 337 K/uL (130-400); RDW Coefficient of Variation 17.1 % (11.5-14.5); RDW Standard Deviation 55.4 fL (36.4-46.3); Red Blood Count 2.64 M/uL (4.7-6.1); White Blood Count 5.63 K/uL (4.8-10.8)
--- NOTE | 2020-11-22 17:59 | XRay Report ---
SINGLE VIEW CHEST CLINICAL HISTORY: Atypical chest pain. FINDINGS: 3 AP, portable, supine chest radiographs are compared to study dated 10/25/2020 and correlat ed with chest CT dated 12/17/2018. The examination is degraded by portable technique and patient rotat ion. The heart is markedly enlarged noting atherosclerotic calcification of the thoracic aorta. Enla rgement of the central pulmonary arteries suggests pulmonary artery hypertension. There is prominence of the pulmonary vasculature. Emphysema and chronic interstitial thickening is similar to previous. Paratracheal density corresponds to vascular structures when correlated with the previous chest CT. A telectasis is noted at the left lung base. No airspace consolidation is seen typical for pneumonia an d no large pleural effusion is identified. No pneumothorax is seen. The skeletal structures are osteo penic. There are healed left-sided rib fractures. IMPRESSION: 1. Marked cardiomegaly and emphysema with prominence of the central pulmonary vessels. Correlate clin ically for evidence of mild congestive failure. 2. No airspace consolidation, large pleural effusion, or pneumothorax is seen. ACT 112: Negative or not required by law. Electronically signed by: Naseem Gonzalez M.D. 11/22/2020 5:57 PM
[2020-11-22] MEDS ORDERED: SODIUM CHLORIDE 0.9% 250 ML IV PRN (18:03)
[2020-11-22 18:09] LABS: INR 1.3 (0.9-1.1); Partial Thromboplastin Time 26.6 Seconds (21.0-31.0); Prothrombin Time 13.1 Seconds (9.0-12.0)
[2020-11-22 18:14] LABS: Albumin Level 2.8 gm/dl (3.4-5.0); BUN Creatinine Ratio 26.5 (10-20); Calcium 7.5 mg/dl (8.5-10.1); Creatinine Clr Calc Pharmacy 32.6 ml/min; Est GFR (African American) 38.9 ml/min; Est GFR (Non-African American) 33.5 ml/min; Potassium 4.7 mmol/L (3.5-5.1)
[2020-11-22 18:17] LABS: Bilirubin,Total 0.8 mg/dl (0.2-1); Globulin 2.9 gm/dl (2.5-4.0); Total Protein 5.7 gm/dl (6.4-8.2)
--- NOTE | 2020-11-22 18:38 | CT Scan Report ---
CT SCAN OF THE BRAIN WITHOUT IV CONTRAST CLINICAL HISTORY: Fall. COMPARISON STUDY: CT of the brain dated 10/26/2020. TECHNIQUE: Unenhanced axial CT scan of the brain is performed from the vertex to the skull base. A do se lowering technique was utilized adhering to the principles of ALARA. FINDINGS: Brain parenchyma: A focus of high left parietal encephalomalacia is consistent with a remote insult. There are age-related involutional changes noting avbj-iw-eqyakxyy subcortical and periventricular m icroangiopathic change. There is no hemorrhage, mass effect, or evidence of acute territorial ischemi a by CT criteria. 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 Villanueva-w kaden matter differentiation is preserved. No extra-axial fluid collection is seen. Ventricles, sulci, cisterns: Prominent secondary to involutional change. Intracranial vasculature: There is atherosclerotic calcification of the cavernous carotid arteries. Calvarium: The skeletal structures are osteopenic. No depressed calvarial fracture is identified. Sinuses and mastoids: The paranasal sinuses are clear. The mastoid air cells are well pneumatized. Orbits: The bony orbits are grossly intact. There are bilateral ocular lens implants. IMPRESSION: There is no hemorrhage, mass effect, or evidence of acute territorial ischemia by CT paty xie. ACT 112: Negative or not required by law. Electronically signed by: Naseem Gonzalez M.D. 11/22/2020 6:37 PM
[2020-11-22] MEDS ORDERED: SODIUM CHLORIDE 0.9% 1000ML 250 ML IV ONE (18:43)
[2020-11-22 18:47] LABS: Hypochromasia Present; Polychromasia 2+; Schistocytes 1+
--- NOTE | 2020-11-22 18:57 | CT Scan Report ---
CT SCAN OF THE ABDOMEN AND PELVIS WITHOUT IV CONTRAST CLINICAL HISTORY: Fall. Hypotension. COMPARISON STUDY: Abdominal CT dated 12/31/2018. TECHNIQUE: CT scan of the abdomen and pelvis is performed from the lung bases to the proximal femora. Images are reviewed in the axial, sagittal, and coronal planes. IV contrast was not administered for this examination due to a reported history of contrast allergy. Note that the examination is subopti mal without IV contrast. The examination is also degraded by motion artifact, and by streak artifact from the arms which could not be elevated above the abdomen. A dose lowering technique was utilized a dhering to the principles of ALARA. CT DOSE: 1104.92 mGy.cm FINDINGS: Lung bases: The heart is enlarged and without pericardial effusion. Coronary arteries are densely vinicio cified. There is a moderate hiatal hernia. Emphysematous change is suggested. There are small pleural effusions with bibasilar atelectasis. Foci of parenchymal scarring are seen at both lung bases. A 3 mm focus of pleural-based nodularity seen in the right lower lobe along the major fissure on image #1 3. There is no airspace consolidation typical for pneumonia. Liver: The unenhanced liver is normal in size, contour, and attenuation. There is no intrahepatic dre iary ductal dilatation. A 1.3 cm cyst is noted in the right lobe. Gallbladder: There are calcified gallstones. The gallbladder is distended and question mild gallbladd er wall thickening. There are calcified gallstones within the common bile duct seen on image #179. Spleen: Normal in size and attenuation. Pancreas: The unenhanced pancreas is moderately atrophic and grossly unremarkable. Adrenal glands: Unremarkable. Kidneys: The unenhanced kidneys are atrophic and without hydronephrosis. There are least 2 punctate n onobstructing right renal calculi. No left renal calculi are identified. A 2.7 cm cyst is noted in th e interpolar right kidney. Abdominal vasculature: There is advanced atherosclerotic calcification of the abdominal aorta. A larg e aneurysm at and below the level of the renal arteries measures 4.9 x 5.9 cm (AP x transverse). The aneurysm measures approximately 9 cm in craniocaudal length. Bowel: There is moderate to advanced colonic diverticulosis without CT evidence of acute diverticulit is. No bowel obstruction is seen. The appendix is not visualized. A small duodenal diverticulum is n oted. Peritoneum: There is trace perihepatic and perisplenic ascites, as well as trace free fluid in the pe lvis. Diffuse mesenteric edema is noted. No intraperitoneal free air is identified. Lymphadenopathy: None. Pelvic viscera: The prostate gland is diminutive versus surgically absent. The bladder is decompresse d around a Root catheter and cannot be evaluated. There are bilateral fat-containing inguinal hernia s. There is also fluid in the right hernia. Skeletal structures: The skeletal structures are osteopenic. No lytic or blastic lesions are seen. Th ere is a nondisplaced left transverse process fracture of L1. This is best seen on image #137. There are acute right anterolateral 6th and 7th rib fractures. There are chronic/healed left-sided rib frac tures. Soft tissues: There is mild body wall edema. IMPRESSION: 1. Suboptimal examination without IV contrast. There is also streak and motion artifact 2. There are acute right-sided rib fractures and an acute left transverse process fracture of L1 as a lore. 3. There is no evidence of solid organ injury in the abdomen or pelvis. Enhanced examination. Note th at this is suboptimally assessed without IV contrast. 4. Cardiomegaly and emphysema. 5. Small pleural effusions. 6. There is a 4.9 x 5.9 cm abdominal aortic aneurysm as detailed above. There is no CT evidence of ru pture at the time of examination. 7. Cholelithiasis and choledocholithiasis. The gallbladder is distended and there may be mild gallbla dder wall thickening. Correlate with clinical and laboratory findings for evidence of acute cholecyst itis. This could be further assessed with right upper quadrant ultrasound if clinically warranted. 8. There is trace abdominopelvic ascites as well as diffuse mesenteric edema. 9. Moderate to advanced colonic diverticulosis without CT evidence of acute diverticulitis. 10. Moderate hiatal hernia. 11. Right-sided nephrolithiasis. 12. Additional findings as above. ACT 112: Negative or not required by law. Electronically signed by: Naseem Gonzalez M.D. 11/22/2020 6:55 PM
--- NOTE | 2020-11-22 19:07 | CT Scan Report ---
CT SCAN OF THE CERVICAL SPINE CLINICAL HISTORY: Fall. COMPARISON STUDY: CT of the cervical spine dated 06/24/2018. TECHNIQUE: CT scan of the cervical spine is performed from the skull base to the upper thoracic spine . Images are reviewed in the axial, sagittal, and coronal planes. IV contrast was not administered fo r this examination. A dose lowering technique was utilized adhering to the principles of ALARA. CT DOSE: 3196.59 mGy.cm FINDINGS: Skeletal structures: The skeletal structures are osteopenic. There is no evidence of fracture or subl uxation involving the cervical spine. Vertebral body height is maintained. There is minimal retrolist hesis at C4-C5. Minimal anterolisthesis is seen at C5-C6, C6-C7, and C7-T1. Anterior osteophytes are seen throughout. There is straightening of the cervical lordosis. The odontoid process and lateral ma sses are intact. The atlantoaxial articulation is preserved noting productive degenerative change. Th e spinous processes appear intact. There is moderate to advanced multilevel cervical spondylosis. Unc overtebral and facet arthropathy contribute to neural foraminal stenosis at most levels. Intervertebral discs: There is moderate to advanced disc space narrowing all levels between C3-C4 and C7-T1. Central canal: Grossly patent. Soft tissues: The prevertebral and paraspinous soft tissues are within normal limits. The thyroid gla nd is enlarged and heterogeneous. There are numerous thyroid nodules which measure up to 2.4 cm. Thes e are unchanged from 2018. There is atherosclerotic calcification of the carotid bulbs. Calvarium: The visualized calvarium at the skull base appears intact. Brain parenchyma: Partially visualized brain parenchyma at the skull base is within normal limits not ing age-related involutional change. Sinuses and mastoids: There is trace mucosal thickening in the right maxillary antrum. The mastoid ai r cells are well pneumatized. Lung apices: Emphysematous change is noted. IMPRESSION: 1. There is no evidence of fracture or subluxation involving the cervical spine. 2. Osteopenia and spondylotic change as above. ACT 112: Negative or not required by law. Electronically signed by: Naseem Gonzalez M.D. 11/22/2020 7:06 PM
[2020-11-22] MEDS ORDERED: CALCIUM GLUCONATE 1,000 MG/60 ML BAG IV STA (20:13)
[2020-11-22 20:35] LABS: Appearance Urine Clear (Clear); Bilirubin Urine Negative (Negative); Blood Urine Negative (Negative); Color Urine Yellow; Glucose Urine UA Negative (Negative); Ketones Urine Negative (Negative); Leukocyte Esterase Urine Negative (Negative); Nitrite Urine Negative (Negative); Protein Urine Negative (Negative); Specific Gravity Urine 1.014 (1.000-1.030); Urobilinogen Urine Negative (Negative)
[2020-11-22 20:47] LABS: Magnesium 2.6 mg/dl (1.8-2.4); Phosphorus 4.1 mg/dl (2.5-4.9)
--- NOTE | 2020-11-22 21:18 | History & Physical Report ---
Date of Service November 22, 2020 Assessment & Plan (1) Anemia: Matty Su this is a 89-year-old male with past medical history significant for A. fib, diastolic CHF, prior CVA, frequent falls, known AAA, CKD stage III, and COPD; who presented to ER earlier today for concerns of low blood pressure. Symptomatic Anemia: -Hgb 7.1 on admission -consented for transfusion, s/p 2 units PRBCs; recheck H/H 8.2/26.5 overnight -CT scan demonstratin. Suboptimal examination without IV contrast. There is also streak and motion artifact 2. There are acute right-sided rib fractures and an acute left transverse process fracture of L1 as above. 3. There is no evidence of solid organ injury in the abdomen or pelvis. Enhanced examination. Note that this is suboptimally assessed without IV contrast. 4. Cardiomegaly and emphysema. 5. Small pleural effusions. 6. There is a 4.9 x 5.9 cm abdominal aortic aneurysm as detailed above. There is no CT evidence of rupture at the time of examination. 7. Cholelithiasis and choledocholithiasis. The gallbladder is distended and there may be mild gallbladder wall thickening. Correlate with clinical and laboratory findings for evidence of acute cholecystitis. This could be further assessed with right upper quadrant ultrasound if clinically warranted . 8. There is trace abdominopelvic ascites as well as diffuse mesenteric edema. 9. Moderate to advanced colonic diverticulosis without CT evidence of acute diverticulitis. 10. Moderate hiatal hernia. 11. Right-sided nephrolithiasis. -FOBT ordered -discontinued anti-coagulants/blood thinning agents Hypotension: -hold home anti-hypertensives at this time -multiple potential etiologies for hypotension at this time Falls: -concerns regarding patient's safety given numerous falls and ability to continue to remain in independent living -PT/OT consulted for evaluation given the continued falls Acute Kidney Injury: -Cr 1.77 on admission -apparent baseline of 1.2 -likely 2/2 anemia -continue to monitor and avoid nephrotoxic agents Multiple Rib Fractures: -Incidentally noted on CT scan -patient recently admitted to [facility] in [place] for this following recent fall Atrial Fibrillation: -discontinue eliquis in the setting of numerous falls, and anemia Diet: Heart Healthy CODE STATUS: DNR/DNI (2) SHAY (acute kidney injury): (3) Multiple rib fractures: (4) Atrial fibrillation, permanent: (5) History of CVA (cerebrovascular accident): (6) Hyperlipidemia: (7) Diastolic CHF: History of Present Illness Chief Complaint: Anemia, hypotension Primary Care Provider: Hakan Su this is a 89-year-old male with past medical history significant for A. fib, diastolic CHF, prior CVA, frequent falls, known AAA, CKD stage III, and COPD; who presented to ER earlier today for concerns of low blood pressure. Of note patient has been in and out of the hospital for the last month most recently discharged from hospital in [place] following recent falls and rib fractures, and discharged from [facility] earlier this month for right- sided/generalized weakness. In ER patient accompanied by his daughter who provides majority of the history over the last month. Over the last month the patient has continuously had difficulty with falling and ultimately requiring multiple trips to the hospital/admissions. On Wednesday patient was discharged from hospital in [place] for rib fractures following a fall, was receiving care and residing in [facility] with home health nursing coming in Wednesday through Wednesday, at his post hospital discharge follow-up with Dr. Willingham on Wednesday patient has multiple medications held in the setting of multiple falls and low blood pressure during the visit. Continue to have follow-up with home health nursing at [facility] into this morning with home health nursing then presenting this morning taking blood pressure noticing that his blood pressure continued to remain low despite these changes medications, this was discussed with his PCP and ultimately he was referred to the ER. Upon presentation to the ER patient continued to have low blood pressures, and it was discovered that he had a hemoglobin of 7.1, notable drop from from previous hospitalization (10/26 demonstrating hemoglobin of 11.1) however patient denies any bright red blood per rectum or melena. Currently patient denies any abdominal pain, lightheadedness, nausea, vomiting, shortness of breath, or chest pain. Patient endorses pain over his right hip and mid thigh, but points to muscles along his groin as the main portion of where his pain is coming from. Daughter endorses numerous continued falls with unknown recency of falls over this last week since discharge from hospital, and has noted that he seems increasingly more unsteady on his feet. Also endorses that he has been increasingly forgetful over the last approximately 10 weeks, and seemingly more fatigued. Earlier today was walking to go to the bathroom a dmitted about 10 feet before having to stop with the walker and take a longer break that he normally would have. Allergies Allergy/AdvReac Type Severity Reaction Status Date / Time Iodinated Contrast Media Allergy Severe ANAPHYLAXIS Verified 11/22/20 20:54 Sulfa (Sulfonamide Allergy Unknown UNKNOWN Verified 11/22/20 20:54 Antibiotics) Home Medications Medication Instructions Recorded Confirmed Type aspirin [Aspir-Low] 81 mg PO DAILY 11/22/20 11/22/20 History atorvastatin 40 mg PO HS 11/22/20 11/22/20 History bumetanide 2 mg PO QAM 11/22/20 11/22/20 History calcium citrate 200 mg PO BID 11/22/20 11/22/20 History cholecalciferol (vitamin D3) 125 mcg PO WK 11/22/20 11/22/20 History [Vitamin D3] docusate sodium [Colace] 100 mg PO BID 11/22/20 11/22/20 History ferrous sulfate 325 mg PO BID 11/22/20 11/22/20 History fluticasone propion-salmeterol 1 ea INHALATION BID 11/22/20 11/22/20 History [Advair Diskus] ipratropium-albuterol 3 ml INHALATION Q4H PRN 11/22/20 11/22/20 History methimazole 5 mg PO DAILY 11/22/20 11/22/20 History metoprolol succinate 25 mg PO DAILY 11/22/20 11/22/20 History multivitamin 1 tab PO DAILY 11/22/20 11/22/20 History pantoprazole 40 mg PO DAILY 11/22/20 11/22/20 History polyethylene glycol 3350 [Miralax] 17 g PO DAILY PRN 11/22/20 11/22/20 History potassium chloride 10 meq PO QPM 11/22/20 11/22/20 History Past Med/Surg History Medical History 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 Cancer lYMPHOMA Cholelithiasis Chronic obstructive pulmonary disease Congestive heart failure Depression GERD (gastroesophageal reflux disease) HTN (hypertension) Hypertension Hyperthyroidism Kidney stone Lymphoma Respiratory failure requiring intubation Status post placement of implantable loop recorder Stroke Surgical History History of cardiac cath Family History Unknown Myocardial infarction Social History Smoking Status: Never smoker Second Hand Exposure: No; Hx Alcohol Use: No Hx Substance Use: No Preferred Language: Divehi Communication Ability: Impaired Visual Impairment: Partially Limited Field Services Manager Required: No Beliefs That Will Affect Care: None marital status: / Current Living Situation: Alone Current Living Situation Comment: caregiver 24 hour How many Children do You have: 6 Other Information That Helps Us Care for You: No Feels Safe at Home: Yes Safety Concerns: Feels Safe At This Time Assistive Devices: Oxygen - Continuous and Walker Review of Systems Review of Systems: All systems reviewed & are unremarkable except as noted in HPI & below Physical Exam Constitutional: WD/WN, vitals as above Eyes: PERRL, conjunctivae normal, anicteric sclerae Respiratory: normal respiratory effort, lungs clear to auscultation Auscultation: no crackles, no rales, no rhonchi and no wheezes Cardiovascular: Rate/Rhythm: + irregularly irregular Heart Sounds: no gallop, no murmur and no cardiac rub Vessels: normal peripheral pulses; no JVD Extremities: no calf tenderness and no edema Gastrointestinal (Abdomen): Inspection/Auscultation: normal bowel sounds and + abdominal wall ecchymosis; abdomen not distended Percussion/Palpation: abdomen soft; abdomen nontender and no guarding Musculoskeletal: no cyanosis or clubbing, extremities motor strength 5/5 Skin: + ecchymosis (Numerous, over upper and lower extremities and abdomen) Neurologic: PERRL, EOMI, accommodation nl, no face palsy, no dysarthria CN's II-XI intact bilaterally and moves all extremities Psychiatric: Orientation: alert and oriented x 3 Results & Data Results & Data ([facility]) Vital Signs (Past 12 Hours) Vital Signs Temp Pulse Pulse Resp BP BP Pulse Ox 11/22/20 20:54 67 16 105/49 L 95 11/22/20 20:08 36.3 C L 71 25 H 86/45 L 96 11/22/20 19:53 37.2 C 74 20 96/54 L 92 11/22/20 19:36 73 18 82/56 L 93 11/22/20 19:34 36.6 C 80 26 H 82/56 L 94 11/22/20 19:25 76 32 H 91/59 L 100 11/22/20 19:15 76 18 11/22/20 19:00 82 21 11/22/20 18:45 75 30 H 91 11/22/20 18:37 72 94 11/22/20 18:36 69 91/59 L 11/22/20 18:00 95 11/22/20 17:37 96/63 L 11/22/20 17:15 71 24 90 11/22/20 17:00 72 15 11/22/20 16:54 73 16 87/61 L 11/22/20 16:45 36.8 C 80 16 87/61 L 93 Laboratory Results 11/22/20 11/22/20 11/22/20 Range/Units 19:41 17:38 17:38 WBC (4.8-10.8) K/uL RBC (4.7-6.1) M/uL Hgb (14.0-18.0) g/dL Hct (42-52) % MCV (80-100) fL MCH (25-34) pg MCHC (32-36) g/dL RDW Std Deviation (36.4-46.3) fL RDW Coeff of Jennifer (11.5-14.5) % Plt Count (130-400) K/uL MPV (7.4-10.4) fL Immature Gran % (Auto) % Neut % (Auto) % Lymph % (Auto) % [place] % (Auto) % Eos % (Auto) % Baso % (Auto) % Neut # (Auto) (1.4-6.5) K/uL Lymph # (Auto) (1.2-3.4) K/uL [place] # (Auto) (0.11-0.59) K/uL Eos # (Auto) (0-0.5) K/uL Baso # (Auto) (0-0.2) K/uL Immature Gran # (Auto) (0.00-0.02) K/uL Absolute Nucleated RBC (0-0) K/uL Nucleated RBC % (auto) % Polychromasia Hypochromasia Schistocytes PT 13.1 H (9.0-12.0) Seconds INR 1.3 H (0.9-1.1) APTT 26.6 (21.0-31.0) Seconds PTT Ratio 1.0 Sodium (136-145) mmol/L Potassium (3.5-5.1) mmol/L Chloride (98-107) mmol/L Carbon Dioxide (21-32) mmol/L Anion Gap (3-11) BUN (7-18) mg/dl Creatinine (0.6-1.4) mg/dl Est Cr Clr Drug Dosing ml/min Est GFR ( Amer) ml/min Est GFR (Non-Af Amer) ml/min BUN/Creatinine Ratio (10-20) Glucose (70-99) mg/dl Calcium (8.5-10.1) mg/dl Phosphorus 4.1 (2.5-4.9) mg/dl Magnesium 2.6 H (1.8-2.4) mg/dl Total Bilirubin (0.2-1) mg/dl AST (15-37) U/L ALT (12-78) U/L Alkaline Phosphatase (45-117) U/L Total Protein (6.4-8.2) gm/dl Albumin (3.4-5.0) gm/dl Globulin (2.5-4.0) gm/dl Albumin/Globulin Ratio (0.9-2) Urine Color Yellow Urine Appearance Clear (Clear) Urine pH 5.0 (4.5-7.5) Ur Specific [place] 1.014 (1.000-1.030) Urine Protein Negative (Negative) Urine Glucose (UA) Negative (Negative) Urine Ketones Negative (Negative) Urine Blood Negative (Negative) Urine Nitrite Negative (Negative) Urine Bilirubin Negative (Negative) Urine Urobilinogen Negative (Negative) Ur Leukocyte Esterase Negative (Negative) COVID-19 Eval Order SARS-CoV-2 (PCR) (Negative) Blood Type Antibody Screen Crossmatch 11/22/20 11/22/20 11/22/20 Range/Units 17:38 17:38 17:38 WBC 5.63 (4.8-10.8) K/uL RBC 2.64 L (4.7-6.1) M/uL Hgb 7.1 L (14.0-18.0) g/dL Hct 23.4 L (42-52) % MCV 88.6 (80-100) fL MCH 26.9 (25-34) pg MCHC 30.3 L (32-36) g/dL RDW Std Deviation 55.4 H (36.4-46.3) fL RDW Coeff of Jennifer 17.1 H (11.5-14.5) % Plt Count 337 (130-400) K/uL MPV 9.5 (7.4-10.4) fL Immature Gran % (Auto) 0.2 % Neut % (Auto) 57.0 % Lymph % (Auto) 23.8 % [place] % (Auto) 16.5 % Eos % (Auto) 2.1 % Baso % (Auto) 0.4 % Neut # (Auto) 3.21 (1.4-6.5) K/uL Lymph # (Auto) 1.34 (1.2-3.4) K/uL [place] # (Auto) 0.93 H (0.11-0.59) K/uL Eos # (Auto) 0.12 (0-0.5) K/uL Baso # (Auto) 0.02 (0-0.2) K/uL Immature Gran # (Auto) 0.01 (0.00-0.02) K/uL Absolute Nucleated RBC 0.34 H (0-0) K/uL Nucleated RBC % (auto) 6.0 % Polychromasia 2+ Hypochromasia Present Schistocytes 1+ PT (9.0-12.0) Seconds INR (0.9-1.1) APTT (21.0-31.0) Seconds PTT Ratio Sodium 138 (136-145) mmol/L Potassium 4.7 (3.5-5.1) mmol/L Chloride 109 H (98-107) mmol/L Carbon Dioxide 24 (21-32) mmol/L Anion Gap 5.0 (3-11) BUN 47 H (7-18) mg/dl Creatinine 1.77 H (0.6-1.4) mg/dl Est Cr Clr Drug Dosing 32.6 ml/min Est GFR ( Amer) 38.9 ml/min Est GFR (Non-Af Amer) 33.5 ml/min BUN/Creatinine Ratio 26.5 H (10-20) Glucose 104 H (70-99) mg/dl Calcium 7.5 L (8.5-10.1) mg/dl Phosphorus (2.5-4.9) mg/dl Magnesium (1.8-2.4) mg/dl Total Bilirubin 0.8 (0.2-1) mg/dl AST 50 H (15-37) U/L ALT 67 (12-78) U/L Alkaline Phosphatase 160 H (45-117) U/L Total Protein 5.7 L (6.4-8.2) gm/dl Albumin 2.8 L (3.4-5.0) gm/dl Globulin 2.9 (2.5-4.0) gm/dl Albumin/Globulin Ratio 1.0 (0.9-2) Urine Color Urine Appearance (Clear) Urine pH (4.5-7.5) Ur Specific [place] (1.000-1.030) Urine Protein (Negative) Urine Glucose (UA) (Negative) Urine Ketones (Negative) Urine Blood (Negative) Urine Nitrite (Negative) Urine Bilirubin (Negative) Urine Urobilinogen (Negative) Ur Leukocyte Esterase (Negative) COVID-19 Eval Order SARS-CoV-2 (PCR) (Negative) Blood Type O Positive Antibody Screen NEGATIVE Crossmatch See Detail 11/22/20 11/22/20 Range/Units 17:20 17:20 WBC (4.8-10.8) K/uL RBC (4.7-6.1) M/uL Hgb (14.0-18.0) g/dL Hct (42-52) % MCV (80-100) fL MCH (25-34) pg MCHC (32-36) g/dL RDW Std Deviation (36.4-46.3) fL RDW Coeff of Jennifer (11.5-14.5) % Plt Count (130-400) K/uL MPV (7.4-10.4) fL Immature Gran % (Auto) % Neut % (Auto) % Lymph % (Auto) % [place] % (Auto) % Eos % (Auto) % Baso % (Auto) % Neut # (Auto) (1.4-6.5) K/uL Lymph # (Auto) (1.2-3.4) K/uL [place] # (Auto) (0.11-0.59) K/uL Eos # (Auto) (0-0.5) K/uL Baso # (Auto) (0-0.2) K/uL Immature Gran # (Auto) (0.00-0.02) K/uL Absolute Nucleated RBC (0-0) K/uL Nucleated RBC % (auto) % Polychromasia Hypochromasia Schistocytes PT (9.0-12.0) Seconds INR (0.9-1.1) APTT (21.0-31.0) Seconds PTT Ratio Sodium (136-145) mmol/L Potassium (3.5-5.1) mmol/L Chloride (98-107) mmol/L Carbon Dioxide (21-32) mmol/L Anion Gap (3-11) BUN (7-18) mg/dl Creatinine (0.6-1.4) mg/dl Est Cr Clr Drug Dosing ml/min Est GFR ( Amer) ml/min Est GFR (Non-Af Amer) ml/min BUN/Creatinine Ratio (10-20) Glucose (70-99) mg/dl Calcium (8.5-10.1) mg/dl Phosphorus (2.5-4.9) mg/dl Magnesium (1.8-2.4) mg/dl Total Bilirubin (0.2-1) mg/dl AST (15-37) U/L ALT (12-78) U/L Alkaline Phosphatase (45-117) U/L Total Protein (6.4-8.2) gm/dl Albumin (3.4-5.0) gm/dl Globulin (2.5-4.0) gm/dl Albumin/Globulin Ratio (0.9-2) Urine Color Urine Appearance (Clear) Urine pH (4.5-7.5) Ur Specific [place] (1.000-1.030) Urine Protein (Negative) Urine Glucose (UA) (Negative) Urine Ketones (Negative) Urine Blood (Negative) Urine Nitrite (Negative) Urine Bilirubin (Negative) Urine Urobilinogen (Negative) Ur Leukocyte Esterase (Negative) COVID-19 Eval Order Covid19 at [facility] SARS-CoV-2 (PCR) NEGATIVE (Negative) Blood Type Antibody Screen Crossmatch Supervising Physician Co-Signing Physician Notes Attending addendum: I have physically seen this patient, have supervised the medical residents activities, and agree with the H&P unless as otherwise noted. Assessment and Plan: Symptomatic anemia- Hemoglobin 7.1 upon admission To receive 2 units PRBCs as ordered by the ED H&H every 6 hours x4 Hemoccult stools Hold aspirin No chemical DVT prophylaxis Atrial fibrillation/HFpEF- Holding antihypertensives as borderline blood pressure at this time Follow on telemetry Acute kidney injury- Creatinine 1.77 on admission, with baseline 1.2 Expect improved with transfusion Follow laboratory serially Frequent falls- PT/OT consult Remaining orders and notations as noted Resident Activity Tracking Resident Involvement: Resident Care Provided Care Provided: Adult Hospital Medicine (1) Diastolic CHF Heart failure chronicity: chronic Qualified Code(s): I50.32 - Chronic diastolic (congestive) heart failure (2) Multiple rib fractures Encounter type: initial encounter Fracture type: closed Laterality: right Qualified Code(s): S22.41XA - Multiple fractures of ribs, right side, initial encounter for closed fracture (3) Anemia Anemia type: unspecified type Qualified Code(s): D64.9 - Anemia, unspecified
[2020-11-22] MEDS ORDERED: MAGNESIUM HYDROXIDE SUSP 30 ML UDC PO PRN (21:51)
[2020-11-22] MEDS ORDERED: MoRPHine SULFATE 2 MG/ML CARP IV PRN (21:51)
[2020-11-22] MEDS ORDERED: POLYETHYLENE (MIRALAX) 17 GM PACK PO PRN (21:51)
[2020-11-22] MEDS ORDERED: ALUMINUM/MAGNESIUM SUSP 30 ML UDC PO PRN (21:51)
[2020-11-22] MEDS ORDERED: NITROGLYCERIN SL 0.4 MG/TAB TAB SL PRN (21:51)
[2020-11-23 02:12] LABS: Hematocrit (blood only) 26.5 % (42-52); Hemoglobin 8.2 g/dL (14.0-18.0)
[2020-11-23 02:22] LABS: Basophils # (auto) 0.01 K/uL (0-0.2); Basophils % (auto) 0.2 %; Eosinophils # (auto) 0.11 K/uL (0-0.5); Eosinophils % (auto) 1.7 %; Hematocrit (blood only) 26.2 % (42-52); Hemoglobin 8.1 g/dL (14.0-18.0); Immature Granulocytes # (auto) 0.02 K/uL (0.00-0.02); Immature Granulocytes % (auto) 0.3 %; Lymphocytes # (auto) 1.17 K/uL (1.2-3.4); Lymphocytes % (auto) 17.8 %; Mean Corpuscular Hgb Conc 30.9 g/dL (32-36); Mean Corpuscular Volume 87.3 fL (80-100); Mean Platelet Volume 9.7 fL (7.4-10.4); Monocytes # (auto) 1.28 K/uL (0.11-0.59); Monocytes % (auto) 19.4 %; Neutrophils % (auto) 60.6 %; Nucleated RBC # (auto) 0.18 K/uL (0-0); Nucleated RBC % (auto) 2.7 %; Platelet Count 299 K/uL (130-400); RDW Coefficient of Variation 17.2 % (11.5-14.5); RDW Standard Deviation 54.9 fL (36.4-46.3); White Blood Count 6.59 K/uL (4.8-10.8)
[2020-11-23 02:40] LABS: Hypochromasia Present; Ovalocytes 1+; Polychromasia 1+
[2020-11-23 02:42] LABS: Albumin Level 2.8 gm/dl (3.4-5.0); BUN Creatinine Ratio 26.4 (10-20); Calcium 7.3 mg/dl (8.5-10.1); Creatinine Clr Calc Pharmacy 33.7 ml/min; Est GFR (African American) 40.5 ml/min; Magnesium 2.2 mg/dl (1.8-2.4); Potassium 4.5 mmol/L (3.5-5.1)
[2020-11-23 03:22] LABS: Bilirubin,Total 1.5 mg/dl (0.2-1); Globulin 2.7 gm/dl (2.5-4.0); Phosphorus 4.2 mg/dl (2.5-4.9); Total Protein 5.5 gm/dl (6.4-8.2)
[2020-11-23] MEDS: LIDOCAINE 5% 1 PATCH TD SCH (06:12)
[2020-11-23] MEDS: ATORVASTATIN 40 MG TAB PO SCH (08:32)
--- NOTE | 2020-11-23 15:02 | Electrocardiogram Report ---
Test Reason : Blood Pressure : / mmHG Vent. Rate : 069 BPM Atrial Rate : 075 BPM P-R Int : 000 ms QRS Dur : 168 ms QT Int : 488 ms P-R-T Axes : 000 073 002 degrees QTc Int : 522 ms Poor data quality, interpretation may be adversely affected Atrial fibrillation Right bundle branch block Nonspecific T wave abnormality Abnormal ECG When compared with ECG of 25-OCT-2020 23:10, PVC's are no longer present Confirmed by Judd Gomez ([id number]) on 11/23/2020 3:01:38 PM Referred By: REFERRED SELF Confirmed By:Judd Gomez
--- NOTE | 2020-11-23 15:34 | Hospitalist Progress Note ---
Date of Service November 23, 2020 Assessment & Plan (1) Anemia: Matty Smiley is a 89-year-old male with past medical history significant for A. fib, diastolic CHF, prior CVA, frequent falls, known AAA, CKD stage III, and COPD; who presented to ER earlier today for concerns of low blood pressure. unclear etiology of anemia, no gerda GI bleeding, no hematoma on CT Hb was up to 8.2 last night at 1am, will repeat H/H now, BP is stable follow closely and transfuse as needed holding anticoagulation, might need to hold indefinitely Hypotension: -hold home anti-hypertensives at this time -BP up to 111 systolic this afternoon Falls: -concerns regarding patient's safety given numerous falls and ability to continue to remain in independent living -PT/OT consulted for evaluation given the continued falls and now with rib fractures Acute Kidney Injury: -Cr 1.77 on admission -apparent baseline of 1.2 -likely 2/2 anemia and hypotensition with poor renal perfusion - Cr is 1.7 on repeat, will check again tomorrow, electrolytes stable Multiple Rib Fractures: right side, ribs 6 and 7 and L1 transverse process fracture -Incidentally noted on CT scan -patient recently admitted to hospital in [place] for this following recent fall Atrial Fibrillation: -discontinue eliquis in the setting of numerous falls, and anemia Diet: Heart Healthy CODE STATUS: DNR/DNI (2) SHAY (acute kidney injury): (3) Multiple rib fractures: (4) Atrial fibrillation, permanent: (5) History of CVA (cerebrovascular accident): (6) Hyperlipidemia: (7) Diastolic CHF: Admission and Anticipated Discharge Date Admission Date: November 22, 2020 Subjective patient doing fine today, breathing is comfortable, has some occasional rib pain, will add Ultram PRN he was complaining about his urethra hurting with the putnam, it was removed this AM, now having incontinence Hb was 8.2 last night, will repeat now no signs of GI bleeding, has not had a BM while here but he does say that when he had last BM it was very hard, difficult to pass, but it was very dark reviewed chart and labs updated his son at the bedside Review of Systems Review of Systems: All systems reviewed & are unremarkable except as noted in Subjective Constitutional: + fatigue and + weakness; no fever Respiratory: + dyspnea on exertion; no cough and no dyspnea Cardiovascular: + chest pain (rib pain); no palpitations, no syncope and no edema Gastrointestinal: no abdominal pain, no nausea, no vomiting, no constipation and no diarrhea/loose stools Physical Exam Constitutional: well developed, + thin, + frail appearing and comfortable; no acute distress Neck: trachea midline, no thyromegaly Respiratory: normal respiratory effort; no respiratory distress and no cough Auscultation: + diminished lung sounds (bases); no rales, no rhonchi and no wheezes Cardiovascular: RRR, no murmur, no edema Gastrointestinal (Abdomen): normal bowel sounds, soft, nontender, no hepatosplenomegaly Musculoskeletal: Head/Neck/Chest: normocephalic, head atraumatic, neck supple and + localized rib tenderness (right 6/7 ribs) Extremities: extremities normal to inspection, + abnormal strength (generalized weakness) and + muscle atrophy; no cyanosis, no clubbing and no petechiae Skin: + turgor decreased and + dry skin; no rashes Neurologic: patellar DTR's 2+ bilat, sensation intact and PERRL, EOMI, accommodation nl, no face palsy, no dysarthria Psychiatric: A+Ox3, euthymic affect Lymphatic: no cervical or axillary lymphadenopathy Results & Data Results & Data ([facility]) Vital Signs (Past 12 Hours) Vital Signs Temp Pulse Pulse Resp BP Pulse Ox 11/23/20 10:55 36.9 C 80 18 111/53 L 96 11/23/20 08:00 80 11/23/20 07:04 37.0 C 87 16 102/65 92 Laboratory Results Laboratory Results - last 24 hr 11/22/20 11/22/20 11/22/20 17:20 17:20 17:38 WBC RBC Hgb Hct MCV MCH MCHC RDW Std Deviation RDW Coeff of Jennifer Plt Count MPV Immature Gran % (Auto) Neut % (Auto) Lymph % (Auto) [place] % (Auto) Eos % (Auto) Baso % (Auto) Neut # (Auto) Lymph # (Auto) [place] # (Auto) Eos # (Auto) Baso # (Auto) Immature Gran # (Auto) Absolute Nucleated RBC Nucleated RBC % (auto) Polychromasia Hypochromasia Ovalocytes Schistocytes PT INR APTT PTT Ratio Sodium 138 Potassium 4.7 Chloride 109 H Carbon Dioxide 24 Anion Gap 5.0 BUN 47 H Creatinine 1.77 H Est Cr Clr Drug Dosing 32.6 Est GFR ( Amer) 38.9 Est GFR (Non-Af Amer) 33.5 BUN/Creatinine Ratio 26.5 H Glucose 104 H Calcium 7.5 L Phosphorus Magnesium Total Bilirubin 0.8 AST 50 H ALT 67 Alkaline Phosphatase 160 H Total Protein 5.7 L Albumin 2.8 L Globulin 2.9 Albumin/Globulin Ratio 1.0 Urine Color Urine Appearance Urine pH Ur Specific Souris Urine Protein Urine Glucose (UA) Urine Ketones Urine Blood Urine Nitrite Urine Bilirubin Urine Urobilinogen Ur Leukocyte Esterase COVID-19 Eval Order Covid19 at [facility] SARS-CoV-2 (PCR) NEGATIVE Blood Type Antibody Screen Crossmatch 11/22/20 11/22/20 11/22/20 17:38 17:38 17:38 WBC 5.63 RBC 2.64 L Hgb 7.1 L Hct 23.4 L MCV 88.6 MCH 26.9 MCHC 30.3 L RDW Std Deviation 55.4 H RDW Coeff of Jennifer 17.1 H Plt Count 337 MPV 9.5 Immature Gran % (Auto) 0.2 Neut % (Auto) 57.0 Lymph % (Auto) 23.8 [place] % (Auto) 16.5 Eos % (Auto) 2.1 Baso % (Auto) 0.4 Neut # (Auto) 3.21 Lymph # (Auto) 1.34 [place] # (Auto) 0.93 H Eos # (Auto) 0.12 Baso # (Auto) 0.02 Immature Gran # (Auto) 0.01 Absolute Nucleated RBC 0.34 H Nucleated RBC % (auto) 6.0 Polychromasia 2+ Hypochromasia Present Ovalocytes Schistocytes 1+ PT 13.1 H INR 1.3 H APTT 26.6 PTT Ratio 1.0 Sodium Potassium Chloride Carbon Dioxide Anion Gap BUN Creatinine Est Cr Clr Drug Dosing Est GFR ( Amer) Est GFR (Non-Af Amer) BUN/Creatinine Ratio Glucose Calcium Phosphorus Magnesium Total Bilirubin AST ALT Alkaline Phosphatase Total Protein Albumin Globulin Albumin/Globulin Ratio Urine Color Urine Appearance Urine pH Ur Specific Souris Urine Protein Urine Glucose (UA) Urine Ketones Urine Blood Urine Nitrite Urine Bilirubin Urine Urobilinogen Ur Leukocyte Esterase COVID-19 Eval Order SARS-CoV-2 (PCR) Blood Type O Positive Antibody Screen NEGATIVE Crossmatch See Detail 11/22/20 11/22/20 11/23/20 17:38 19:41 01:43 WBC 6.59 RBC 3.00 L Hgb 8.1 L Hct 26.2 L MCV 87.3 MCH 27.0 MCHC 30.9 L RDW Std Deviation 54.9 H RDW Coeff of Jennifer 17.2 H Plt Count 299 MPV 9.7 Immature Gran % (Auto) 0.3 Neut % (Auto) 60.6 Lymph % (Auto) 17.8 [place] % (Auto) 19.4 Eos % (Auto) 1.7 Baso % (Auto) 0.2 Neut # (Auto) 4.00 Lymph # (Auto) 1.17 L [place] # (Auto) 1.28 H Eos # (Auto) 0.11 Baso # (Auto) 0.01 Immature Gran # (Auto) 0.02 Absolute Nucleated RBC 0.18 H Nucleated RBC % (auto) 2.7 Polychromasia 1+ Hypochromasia Present Ovalocytes 1+ Schistocytes PT INR APTT PTT Ratio Sodium Potassium Chloride Carbon Dioxide Anion Gap BUN Creatinine Est Cr Clr Drug Dosing Est GFR ( Amer) Est GFR (Non-Af Amer) BUN/Creatinine Ratio Glucose Calcium Phosphorus 4.1 Magnesium 2.6 H Total Bilirubin AST ALT Alkaline Phosphatase Total Protein Albumin Globulin Albumin/Globulin Ratio Urine Color Yellow Urine Appearance Clear Urine pH 5.0 Ur Specific Souris 1.014 Urine Protein Negative Urine Glucose (UA) Negative Urine Ketones Negative Urine Blood Negative Urine Nitrite Negative Urine Bilirubin Negative Urine Urobilinogen Negative Ur Leukocyte Esterase Negative COVID-19 Eval Order SARS-CoV-2 (PCR) Blood Type Antibody Screen Crossmatch 11/23/20 11/23/20 11/23/20 01:43 01:43 15:28 WBC RBC Hgb 8.2 L Pending Hct 26.5 L Pending MCV MCH MCHC RDW Std Deviation RDW Coeff of Jennifer Plt Count MPV Immature Gran % (Auto) Neut % (Auto) Lymph % (Auto) [place] % (Auto) Eos % (Auto) Baso % (Auto) Neut # (Auto) Lymph # (Auto) [place] # (Auto) Eos # (Auto) Baso # (Auto) Immature Gran # (Auto) Absolute Nucleated RBC Nucleated RBC % (auto) Polychromasia Hypochromasia Ovalocytes Schistocytes PT INR APTT PTT Ratio Sodium 138 Potassium 4.5 Chloride 109 H Carbon Dioxide 24 Anion Gap 5.0 BUN 45 H Creatinine 1.71 H Est Cr Clr Drug Dosing 33.7 Est GFR ( Amer) 40.5 Est GFR (Non-Af Amer) 35.0 BUN/Creatinine Ratio 26.4 H Glucose 92 Calcium 7.3 L Phosphorus 4.2 Magnesium 2.2 Total Bilirubin 1.5 H D AST 44 H ALT 60 Alkaline Phosphatase 151 H Total Protein 5.5 L Albumin 2.8 L Globulin 2.7 Albumin/Globulin Ratio 1.0 Urine Color Urine Appearance Urine pH Ur Specific Souris Urine Protein Urine Glucose (UA) Urine Ketones Urine Blood Urine Nitrite Urine Bilirubin Urine Urobilinogen Ur Leukocyte Esterase COVID-19 Eval Order SARS-CoV-2 (PCR) Blood Type Antibody Screen Crossmatch Medications Administered Current Inpatient Medications Acetaminophen (Acetaminophen 325 Mg Tab) 650 mg PO Q4H PRN PRN Reason: Pain or Fever Stop: 12/22/20 21:50 Al Hydrox/Mg Hydrox/Simethicone (Aluminum/Magnesium Susp 30 Ml Udc) 15 ml PO Q4H PRN PRN Reason: Dyspepsia Stop: 12/22/20 21:50 Atorvastatin Calcium (Atorvastatin 40 Mg Tab) 40 mg PO DAILY [facility] Stop: 12/23/20 08:59 Last Admin: 11/23/20 08:32 Dose: 40 mg Documented by: Lidocaine (Lidocaine 5% 1 Patch) 1 patch TD QAM [facility] Stop: 12/23/20 05:44 Last Admin: 11/23/20 06:12 Dose: 1 patch Documented by: Magnesium Hydroxide (Magnesium Hydroxide Susp 30 Ml Udc) 30 ml PO Q12H PRN PRN Reason: Constipation Stop: 12/22/20 21:50 Last Admin: 11/23/20 08:38 Dose: 30 ml Documented by: Miscellaneous (Remove Lidoderm Patch) 1 ea N/A DAILY@2100 [facility] Stop: 12/23/20 20:59 Morphine Sulfate (Morphine Sulfate 2 Mg/Ml Carp) 2 mg IV Q30M PRN PRN Reason: Chest Pain Stop: 12/06/20 21:50 Nitroglycerin (Nitroglycerin Sl 0.4 Mg/Tab Tab) 0.4 mg SL UD PRN PRN Reason: Chest Pain Stop: 12/22/20 21:50 Ondansetron HCl (Ondansetron Inj 2 Mg/Ml 2 Ml Vial) 4 mg IV Q6H PRN PRN Reason: Nausea Stop: 12/22/20 21:50 Polyethylene Glycol (Polyethylene (Miralax) 17 Gm Pack) 17 gm PO DAILY PRN PRN Reason: Constipation Stop: 12/22/20 21:50 Last Admin: 11/23/20 08:38 Dose: 17 gm Documented by: Tramadol HCl (Tramadol Hcl 50 Mg Tablet) 50 mg PO Q4H PRN PRN Reason: Pain Stop: 12/23/20 15:32 PG Care Time/CCT Total # of Minutes Spent Total Time Spent with Patient: Total time spent is greater than 50% in coordination of care (as documented) at patient's floor/unit and/or counseling patient: Coding Level of Care Code 32103 Subseq Hosp Care Lvl 3 Diagnoses Anemia D64.9 Anemia type: unspecified type SHAY (acute kidney injury) N17.9 Multiple rib fractures S22.41XA Encounter type: initial encounter Fracture type: closed Laterality: right Atrial fibrillation, permanent I48.21 History of CVA (cerebrovascular accident) Z86.73 Hyperlipidemia E78.5 Diastolic CHF I50.32 Heart failure chronicity: chronic (1) Diastolic CHF Heart failure chronicity: chronic Qualified Code(s): I50.32 - Chronic diastolic (congestive) heart failure (2) Multiple rib fractures Encounter type: initial encounter Fracture type: closed Laterality: right Qualified Code(s): S22.41XA - Multiple fractures of ribs, right side, initial encounter for closed fracture (3) Anemia Anemia type: unspecified type Qualified Code(s): D64.9 - Anemia, unspecified
[2020-11-23 15:45] LABS: Hematocrit (blood only) 26.1 % (42-52); Hemoglobin 8.1 g/dL (14.0-18.0)
[2020-11-24] MEDS: traMADol HCL 50 MG TABLET PO PRN ×2 (05:01→19:58)
[2020-11-24 07:04] LABS: Basophils # (auto) 0.01 K/uL (0-0.2); Basophils % (auto) 0.2 %; Eosinophils # (auto) 0.21 K/uL (0-0.5); Eosinophils % (auto) 3.2 %; Hematocrit (blood only) 25.2 % (42-52); Hemoglobin 7.7 g/dL (14.0-18.0); Immature Granulocytes # (auto) 0.02 K/uL (0.00-0.02); Immature Granulocytes % (auto) 0.3 %; Lymphocytes # (auto) 0.98 K/uL (1.2-3.4); Lymphocytes % (auto) 15.1 %; Mean Corpuscular Hemoglobin 27.1 pg (25-34); Mean Corpuscular Hgb Conc 30.6 g/dL (32-36); Mean Corpuscular Volume 88.7 fL (80-100); Mean Platelet Volume 9.4 fL (7.4-10.4); Monocytes # (auto) 1.07 K/uL (0.11-0.59); Monocytes % (auto) 16.4 %; Neutrophils # (auto) 4.22 K/uL (1.4-6.5); Neutrophils % (auto) 64.8 %; Nucleated RBC # (auto) 0.05 K/uL (0-0); Nucleated RBC % (auto) 0.8 %; Platelet Count 262 K/uL (130-400); RDW Coefficient of Variation 17.5 % (11.5-14.5); RDW Standard Deviation 57.1 fL (36.4-46.3); Red Blood Count 2.84 M/uL (4.7-6.1); White Blood Count 6.51 K/uL (4.8-10.8)
[2020-11-24 07:21] LABS: Albumin Level 2.7 gm/dl (3.4-5.0); BUN Creatinine Ratio 27.6 (10-20); Calcium 7.3 mg/dl (8.5-10.1); Creatinine Clr Calc Pharmacy 48.1 ml/min; Est GFR (African American) 62.2 ml/min; Est GFR (Non-African American) 53.7 ml/min; Potassium 4.6 mmol/L (3.5-5.1)
[2020-11-24 07:38] LABS: Globulin 2.8 gm/dl (2.5-4.0); Total Protein 5.5 gm/dl (6.4-8.2)
[2020-11-24 07:52] LABS: Hypochromasia Present; Microcytosis Present; Polychromasia 1+; Target Cells 1+
[2020-11-24] MEDS: LIDOCAINE 5% 1 PATCH TD SCH (08:58)
[2020-11-24] MEDS: ATORVASTATIN 40 MG TAB PO SCH (08:58)
--- NOTE | 2020-11-24 14:17 | Hospitalist Progress Note ---
Date of Service November 24, 2020 Assessment & Plan (1) Anemia: Matty Smiley is a 89-year-old male with past medical history significant for A. fib, diastolic CHF, prior CVA, frequent falls, known AAA, CKD stage III, and COPD; who presented to ER earlier today for concerns of low blood pressure. unclear etiology of anemia, no gerda GI bleeding, no hematoma on CT Hb was up to 8.1, down very slightly at 7.7 today, BP stable follow closely and transfuse as needed if < 7.0 holding anticoagulation, likely need to discontinue anticoagulation custodial due to frequent falls at home Hypotension: -hold home anti-hypertensives at this time -BP low normal but technically not hypotensive Falls: -concerns regarding patient's safety given numerous falls, not safe to be on his own anymore -PT/OT consulted for evaluation, plan for rehab vs SNF Acute Kidney Injury: -Cr 1.77 on admission -apparent baseline of 1.2 -likely 2/2 anemia and hypotensition with poor renal perfusion - Cr improved to 1.2, electrolytes stable Multiple Rib Fractures: right side, ribs 6 and 7 and L1 transverse process f racture -Incidentally noted on CT scan -patient recently admitted to hospital in [place] for this following recent fall Ultram 50mg q4 PRN, Tylenol PRN Atrial Fibrillation: -discontinue eliquis in the setting of numerous falls, and anemia Diet: Heart Healthy CODE STATUS: DNR/DNI (2) SHAY (acute kidney injury): (3) Multiple rib fractures: (4) Atrial fibrillation, permanent: (5) History of CVA (cerebrovascular accident): (6) Hyperlipidemia: (7) Diastolic CHF: Admission and Anticipated Discharge Date Admission Date: November 22, 2020 Subjective patient is acting confused, likely seeing things that are not there, he thought it was snowing when I was in the room he is not in distress, sleeping most of the day he has some right sided chest pain due to the rib fractures checked labs, Hb is 7.7, WBC 6k, plts 262k Cr is 1.2, K 4.6 he tells me that family is going to have a meeting about him today he knows that he cannot go home, he is too risky with falls, but still this makes him upset Review of Systems Review of Systems: All systems reviewed & are unremarkable except as noted in Subjective Cardiovascular: + chest pain (right sided, rib pain) Musculoskeletal: + joint pain (left hip and thigh) Physical Exam Constitutional: well developed, + thin, + frail appearing and comfortable; no acute distress Neck: trachea midline, no thyromegaly Respiratory: normal respiratory effort; no respiratory distress and no cough Auscultation: + diminished lung sounds (bases); no rales, no rhonchi and no whe ezes Cardiovascular: RRR, no murmur, no edema Gastrointestinal (Abdomen): normal bowel sounds, soft, nontender, no hepatosplenomegaly Musculoskeletal: Head/Neck/Chest: normocephalic, head atraumatic, neck supple and + localized rib tenderness (right 6/7 ribs) Extremities: extremities normal to inspection, + abnormal strength (generalized weakness) and + muscle atrophy; no cyanosis, no clubbing and no petechiae Skin: + turgor decreased and + dry skin; no rashes Neurologic: patellar DTR's 2+ bilat, sensation intact and PERRL, EOMI, accommodation nl, no face palsy, no dysarthria Psychiatric: A+Ox3, euthymic affect Hallucinations: + visual hallucinations (he thinks it is snowing) Lymphatic: no cervical or axillary lymphadenopathy Results & Data Results & Data ([facility]) Vital Signs (Past 12 Hours) Vital Signs Temp Pulse Pulse Resp BP Pulse Ox 11/24/20 13:43 89 11/24/20 11:04 36.6 C 93 H 18 108/70 99 11/24/20 07:39 36.8 C 89 18 96/71 L 11/24/20 02:54 36.8 C 86 20 139/78 96 Laboratory Results Laboratory Results - last 24 hr 11/23/20 11/24/20 11/24/20 15:28 06:51 06:51 WBC 6.51 RBC 2.84 L Hgb 8.1 L 7.7 L Hct 26.1 L 25.2 L MCV 88.7 MCH 27.1 MCHC 30.6 L RDW Std Deviation 57.1 H RDW Coeff of Jennifer 17.5 H Plt Count 262 MPV 9.4 Immature Gran % (Auto) 0.3 Neut % (Auto) 64.8 Lymph % (Auto) 15.1 Winn % (Auto) 16.4 Eos % (Auto) 3.2 Baso % (Auto) 0.2 Neut # (Auto) 4.22 Lymph # (Auto) 0.98 L Winn # (Auto) 1.07 H Eos # (Auto) 0.21 Baso # (Auto) 0.01 Immature Gran # (Auto) 0.02 Absolute Nucleated RBC 0.05 H Nucleated RBC % (auto) 0.8 Polychromasia 1+ Hypochromasia Present Microcytosis Present Target Cells 1+ Sodium 140 Potassium 4.6 Chloride 111 H Carbon Dioxide 26 Anion Gap 3.0 BUN 33 H Creatinine 1.20 D Est Cr Clr Drug Dosing 48.1 Est GFR ( Amer) 62.2 Est GFR (Non-Af Amer) 53.7 BUN/Creatinine Ratio 27.6 H Glucose 101 H Calcium 7.3 L Total Bilirubin 1.0 D AST 41 H ALT 50 Alkaline Phosphatase 150 H Total Protein 5.5 L Albumin 2.7 L Globulin 2.8 Albumin/Globulin Ratio 1.0 Medications Administered Current Inpatient Medications Acetaminophen (Acetaminophen 325 Mg Tab) 650 mg PO Q4H PRN PRN Reason: Pain or Fever Stop: 12/22/20 21:50 Al Hydrox/Mg Hydrox/Simethicone (Aluminum/Magnesium Susp 30 Ml Udc) 15 ml PO Q4H PRN PRN Reason: Dyspepsia Stop: 12/22/20 21:50 Atorvastatin Calcium (Atorvastatin 40 Mg Tab) 40 mg PO DAILY [facility] Stop: 12/23/20 08:59 Last Admin: 11/24/20 08:58 Dose: 40 mg Documented by: Lidocaine (Lidocaine 5% 1 Patch) 1 patch TD QAM [facility] Stop: 12/23/20 05:44 Last Admin: 11/24/20 08:58 Dose: 1 patch Documented by: Magnesium Hydroxide (Magnesium Hydroxide Susp 30 Ml Udc) 30 ml PO Q12H PRN PRN Reason: Constipation Stop: 12/22/20 21:50 Last Admin: 11/23/20 08:38 Dose: 30 ml Documented by: Miscellaneous (Remove Lidoderm Patch) 1 ea N/A DAILY@2100 [facility] Stop: 12/23/20 20:59 Last Admin: 11/23/20 20:47 Dose: 1 ea Documented by: Morphine Sulfate (Morphine Sulfate 2 Mg/Ml Carp) 2 mg IV Q30M PRN PRN Reason: Chest Pain Stop: 12/06/20 21:50 Nitroglycerin (Nitroglycerin Sl 0.4 Mg/Tab Tab) 0.4 mg SL UD PRN PRN Reason: Chest Pain Stop: 12/22/20 21:50 Ondansetron HCl (Ondansetron Inj 2 Mg/Ml 2 Ml Vial) 4 mg IV Q6H PRN PRN Reason: Nausea Stop: 12/22/20 21:50 Polyethylene Glycol (Polyethylene (Miralax) 17 Gm Pack) 17 gm PO DAILY PRN PRN Reason: Constipation Stop: 12/22/20 21:50 Last Admin: 11/23/20 08:38 Dose: 17 gm Documented by: Tramadol HCl (Tramadol Hcl 50 Mg Tablet) 50 mg PO Q4H PRN PRN Reason: Pain Stop: 12/23/20 15:32 Last Admin: 11/24/20 05:01 Dose: 50 mg Documented by: PG Care Time/CCT Total # of Minutes Spent Total Time Spent with Patient: Total time spent is greater than 50% in coordination of care (as documented) at patient's floor/unit and/or counseling patient: Coding Level of Care Code 45263 Subseq Hosp Care Lvl 2 Diagnoses Anemia D64.9 Anemia type: unspecified type SHAY (acute kidney injury) N17.9 Multiple rib fractures S22.41XA Encounter type: initial encounter Fracture type: closed Laterality: right Atrial fibrillation, permanent I48.21 History of CVA (cerebrovascular accident) Z86.73 Hyperlipidemia E78.5 Diastolic CHF I50.32 Heart failure chronicity: chronic (1) Anemia Anemia type: unspecified type Qualified Code(s): D64.9 - Anemia, unspecified (2) Multiple rib fractures Encounter type: initial encounter Fracture type: closed Laterality: right Qualified Code(s): S22.41XA - Multiple fractures of ribs, right side, initial encounter for closed fracture (3) Diastolic CHF Heart failure chronicity: chronic Qualified Code(s): I50.32 - Chronic diastolic (congestive) heart failure
--- NOTE | 2020-11-24 20:03 | Billing Data ---
Date of Service November 24, 2020 Coding Level of Care Code 55985 Initial Inpt Care Lvl 3
--- NOTE | 2020-11-24 20:19 | Communication Note ---
Date of Service: November 24, 2020 Notified by nursing that at shift change patient had aspirated food. Apparently family had been bringing in candy bars and potato chips and patient had choked on them and has been coughing up pieces of candy bars and chips. His O2 was titrated up to 10L initially and is now titrated down to 5L. Evaluated patient in the room who seemed pleasantly confused. Appeared to know who he was, but kept asking what was wrong with him, whether or not he could go for a walk, or go home. He stats that he has never fallen, even at home, despite previous notes mentioning patient's numerous falls and likely the cause of his multiple rib fractures. Patient pleasantly confused. RRR no murmurs Lungs diminished at bases, but otherwise clear. Plan: -Will order for CXR at this time -Will monitor patient's respiratory closely throughout night -Diet changed to minced/moist with aspiration precautions Resident Activity Tracking Resident Involvement: Resident Care Provided and Legal File Clerk Coverage Note Care Provided: Adult Hospital Medicine
--- NOTE | 2020-11-24 20:37 | XRay Report ---
SINGLE VIEW CHEST CLINICAL HISTORY: Aspiration. FINDINGS: 2 AP, portable, semierect chest radiographs are compared to study dated 11/22/2020 and corre lated with chest CT dated 12/17/2018. The examination is degraded by portable technique and patient ro tation. The heart is markedly enlarged noting atherosclerotic calcification of the thoracic aorta. E nlargement of the central pulmonary arteries suggests pulmonary artery hypertension. There is unchang ed prominence of the pulmonary vasculature. Emphysema and chronic interstitial thickening is similar to previous. Paratracheal density corresponds to vascular structures when correlated with the previou s chest CT. There are bibasilar airspace opacities. No large pleural effusion or pneumothorax is seen . The skeletal structures are osteopenic. There are healed left-sided rib fractures. IMPRESSION: 1. Marked cardiomegaly and emphysema. There is unchanged prominence of the central pulmonary vessels. Correlate clinically for evidence of mild congestive failure. 2. Bibasilar airspace opacities likely represent scarring/atelectasis. Correlate clinically for evide nce of superimposed pneumonia/aspiration pneumonitis ACT 112: Negative or not required by law. Electronically signed by: Naseem Gonzalez M.D. 11/24/2020 8:36 PM
--- NOTE | 2020-11-25 08:00 | Hospitalist Progress Note ---
Date of Service November 25, 2020 Assessment & Plan (1) Anemia: Matty Smiely is a 89-year-old male with past medical history significant for A. fib, diastolic CHF, prior CVA, frequent falls, known AAA, CKD stage III, and COPD; who presented to ER earlier today for concerns of low blood pressure. unclear etiology of anemia, no gerda GI bleeding, no retroperitoneal hematoma on CT Hb was up to 8.1, after 2 units then back down to 7.8 transfuse 1/3 unit on 11/25/2020 We will keep n.p.o. after midnight give a bowel prep. Family gives concerns of the last few weeks having weakness falls and black stools at home Hypotension: -hold home anti-hypertensives at this time -BP remains low even after transfusions Falls: -concerns regarding patient's safety given numerous falls, rib fractures possible sacral fracture. Family does not want the patient to go home however the patient adamantly does not want to go to any rehab or supportive environment -PT/OT consulted for evaluation Acute Kidney Injury: Resolved -Cr 1.77 on admission -likely 2/2 anemia and hypotension with poor renal perfusion Multiple Rib Fractures: right side, ribs 6 and 7 and L1 transverse process fracture -Incidentally noted on CT scan -patient recently admitted to hospital in [place] for this following recent fall Ultram 50mg q4 PRN, Tylenol PRN Atrial Fibrillation: -discontinue Eliquis in the setting of numerous falls, and anemia Diet: Heart Healthy CODE STATUS: DNR/DNI I spent over 90 minutes with the patient and the family at the bedside (2) SHAY (acute kidney injury): (3) Multiple rib fractures: (4) Atrial fibrillation, permanent: (5) History of CVA (cerebrovascular accident): (6) Hyperlipidemia: (7) Diastolic CHF: Admission and Anticipated Discharge Date Admission Date: November 22, 2020 Subjective we did have multiple conversations today regarding the pt staying for further work up of his anemia, the pt is agreeable to considering an EGD and possible colonoscopy as he has been having ongoing melena and falls at home with resultant fractures, all total I spent 90 minutes with the pt and or his family at the bedside. Review of Systems Review of Systems: Mild distress and fatigue no headache, blurry or double vision no speech or swallowing issues no chest pain, pressure or palpitations Baseline shortness of breath and oxygen requirement,no cough or wheezes no abdominal pain, nausea or vomiting, has not had a bowel movement here no dysuria, hematuria or frequency no focal joint pain or swelling no back pain, CVA tenderness or radicular pain has some open areas and bleeding from picking his skin no focal signs of weakness or numbness or altered sensation no complaints of anxiety or depression.. Physical Exam Physical Exam: The patient appeared chronically ill and slightly demented Vital signs as documented. Head exam is normocephalic atraumatic Neck is without JVD, thyromegaly, or carotid bruits. Lungs are poor air movement no focal loss of breath sounds Cardiac exam, Rhythm is regular.. No murmurs, rubs or gallops. Abdominal exam reveals normal bowel sounds, soft epigastric discomfort Extremities are nonedematous and both pedal pulses are present Neurologic exam is alert and oriented x3 but at times gets confused, no focal loss of strength or sensation Skin is with open areas especially his left elbow Psychologically is with concerns for some memory impairment Results & Data Results & Data ([facility]) Vital Signs (Past 12 Hours) Vital Signs Temp Pulse Pulse Resp BP Pulse Ox 11/25/20 07:04 97.9 F 87 18 110/76 95 11/25/20 04:45 91 H 11/25/20 03:00 98.2 F 91 H 18 111/70 94 11/24/20 22:27 97.9 F 89 20 101/69 98 PG Care Time/CCT Total # of Minutes Spent Total Time Spent with Patient: Total time spent is greater than 50% in coordination of care (as documented) at patient's floor/unit and/or counseling patient: Coding Level of Care Code 85581 Subseq Hosp Care Lvl 3 (25 - SIGNIFICANT, SEPARATELY IDENTIFIABLE ) Diagnoses Anemia D64.9 Anemia type: unspecified type SHAY (acute kidney injury) N17.9 Multiple rib fractures S22.41XA Encounter type: initial encounter Fracture type: closed Laterality: right Atrial fibrillation, permanent I48.21 History of CVA (cerebrovascular accident) Z86.73 Hyperlipidemia E78.5 Diastolic CHF I50.32 Heart failure chronicity: chronic Time Spent (min) 90 (1) Diastolic CHF Heart failure chronicity: chronic Qualified Code(s): I50.32 - Chronic diastolic (congestive) heart failure (2) Multiple rib fractures Encounter type: initial encounter Fracture type: closed Laterality: right Qualified Code(s): S22.41XA - Multiple fractures of ribs, right side, initial encounter for closed fracture (3) Anemia Anemia type: unspecified type Qualified Code(s): D64.9 - Anemia, unspecified
[2020-11-25] MEDS: ATORVASTATIN 40 MG TAB PO SCH (08:03)
[2020-11-25] MEDS: LIDOCAINE 5% 1 PATCH TD SCH (08:03)
[2020-11-25 08:59] LABS: Hematocrit (blood only) 26.7 % (42-52); Hemoglobin 7.8 g/dL (14.0-18.0); Mean Corpuscular Hemoglobin 26.5 pg (25-34); Mean Corpuscular Hgb Conc 29.2 g/dL (32-36); Mean Corpuscular Volume 90.8 fL (80-100); Mean Platelet Volume 9.7 fL (7.4-10.4); Platelet Count 263 K/uL (130-400); RDW Coefficient of Variation 17.9 % (11.5-14.5); RDW Standard Deviation 59.1 fL (36.4-46.3); Red Blood Count 2.94 M/uL (4.7-6.1); White Blood Count 5.42 K/uL (4.8-10.8)
[2020-11-25 09:30] LABS: Calcium 7.4 mg/dl (8.5-10.1); Est GFR (African American) 74.8 ml/min; Est GFR (Non-African American) 64.6 ml/min; Potassium 4.4 mmol/L (3.5-5.1)
[2020-11-25] MEDS ORDERED: SODIUM CHLORIDE 0.9% 250 ML IV PRN (11:13)
[2020-11-25] MEDS: LAVAGE SOLUTION 4000ML PO SCH (17:57)
[2020-11-25 20:52] LABS: Hematocrit (blood only) 29.7 % (42-52)
[2020-11-26] MEDS: LAVAGE SOLUTION 4000ML PO SCH (05:21)
[2020-11-26 07:15] LABS: Albumin Level 3.1 gm/dl (3.4-5.0); BUN Creatinine Ratio 26.8 (10-20); Calcium 8.1 mg/dl (8.5-10.1); Creatinine Clr Calc Pharmacy 63.4 ml/min; Est GFR (African American) 86.9 ml/min; Potassium 4.5 mmol/L (3.5-5.1)
[2020-11-26 07:22] LABS: Albumin Globulin Ratio 1.1 (0.9-2); Bilirubin,Total 1.3 mg/dl (0.2-1); Globulin 2.8 gm/dl (2.5-4.0); Total Protein 5.9 gm/dl (6.4-8.2)
[2020-11-26 08:09] LABS: Hematocrit (blood only) 29.9 % (42-52); Hemoglobin 9.1 g/dL (14.0-18.0); Mean Corpuscular Hemoglobin 26.6 pg (25-34); Mean Corpuscular Hgb Conc 30.4 g/dL (32-36); Mean Corpuscular Volume 87.4 fL (80-100); Mean Platelet Volume 9.4 fL (7.4-10.4); Platelet Count 253 K/uL (130-400); RDW Coefficient of Variation 17.1 % (11.5-14.5); RDW Standard Deviation 54.6 fL (36.4-46.3); Red Blood Count 3.42 M/uL (4.7-6.1); White Blood Count 6.85 K/uL (4.8-10.8)
--- NOTE | 2020-11-26 08:36 | Gastrointestinal Consultation ---
Date of Consultation November 26, 2020 Assessment & Plan (1) Acute blood loss anemia: (2) Melena: Start Pantoprazole 40 mg IV BID now Continue supportive care Transfuse as needed to maintain H/H around 8/24 Bowel prep complete NPO Proceed with EGD and colonoscopy today History of Present Illness Reason for Consultation: Acute blood loss anemia Attending Physician: Rodger Wheeler MD History of Present Illness Matty Smiley presented to the [facility] on 11/22 with an extensive PMHx and a recent discharge from [facility] in [place] due to frequent falls and multiple rib fractures. He was noted to have severe anemia in the ER, and was transfused 2 units of PRBC. His daughter reported recent increasing fatigue and noted multiple black stools. A CT abd/pelvis showed no evidence of retroperitoneal bleeding, but did show both cholelithiasis/choledocholithiasis. His bilirubin and alk phos were slightly elevated. The patient was subsequently admitted and nursing reported continued findings of dark stools. He was transfused a 3rd unit of PRBC and was given a bowel prep last evening. At the time I saw the patient, he had completed his bowel prep. Nursing noted his last BM was black liquid. The patient denies any abdominal pain, nausea or vomiting. He denies other complaints at this time. Allergies Allergy/AdvReac Type Severity Reaction Status Date / Time Iodinated Contrast Media Allergy Severe ANAPHYLAXIS Verified 11/22/20 20:54 Sulfa (Sulfonamide Allergy Unknown UNKNOWN Verified 11/22/20 20:54 Antibiotics) Home Medications Medication Instructions Recorded Confirmed Type aspirin [Aspir-Low] 81 mg PO DAILY 11/22/20 11/22/20 History atorvastatin 40 mg PO HS 11/22/20 11/22/20 History bumetanide 2 mg PO QAM 11/22/20 11/22/20 History calcium citrate 200 mg PO BID 11/22/20 11/22/20 History cholecalciferol (vitamin D3) 125 mcg PO WK 11/22/20 11/22/20 History [Vitamin D3] docusate sodium [Colace] 100 mg PO BID 11/22/20 11/22/20 History ferrous sulfate 325 mg PO BID 11/22/20 11/22/20 History fluticasone propion-salmeterol 1 ea INHALATION BID 11/22/20 11/22/20 History [Advair Diskus] ipratropium-albuterol 3 ml INHALATION Q4H PRN 11/22/20 11/22/20 History methimazole 5 mg PO DAILY 11/22/20 11/22/20 History metoprolol succinate 25 mg PO DAILY 11/22/20 11/22/20 History multivitamin 1 tab PO DAILY 11/22/20 11/22/20 History pantoprazole 40 mg PO DAILY 11/22/20 11/22/20 History polyethylene glycol 3350 [Miralax] 17 g PO DAILY PRN 11/22/20 11/22/20 History potassium chloride 10 meq PO QPM 11/22/20 11/22/20 History Patient History Medical History 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 Cancer lYMPHOMA Cholelithiasis Chronic obstructive pulmonary disease Congestive heart failure Depression GERD (gastroesophageal reflux disease) HTN (hypertension) Hypertension Hyperthyroidism Kidney stone Lymphoma Respiratory failure requiring intubation Status post placement of implantable loop recorder Stroke Surgical History History of cardiac cath Family History Unknown Myocardial infarction Social History Smoking Status: Never smoker Second Hand Exposure: No; Hx Alcohol Use: No Hx Substance Use: No Preferred Language: Cuban Communication Ability: Impaired Visual Impairment: Partially Limited Ice Cream Dispenser Required: No Beliefs That Will Affect Care: None marital status: / Current Living Situation: Alone Current Living Situation Comment: caregiver 24 hour How many Children do You have: 6 Other Information That Helps Us Care for You: No Feels Safe at Home: Yes Safety Concerns: Feels Safe At This Time Assistive Devices: Oxygen - Continuous Review of Systems Review of Systems: All systems reviewed & are unremarkable except as noted in Subjective Physical Exam Constitutional: + ill appearing (Chronic); no acute distress Eyes: + anicteric sclerae ENMT: Ears: no external ear abnormality Nose: no external nose abnormality Neck: trachea midline Respiratory: normal respiratory effort; no respiratory distress and no labored breathing Auscultation: + diminished lung sounds (Bilateral bases) Cardiovascular: Rate/Rhythm: + irregularly irregular Gastrointestinal (Abdomen): normal bowel sounds, soft, nontender, no hepatosplenomegaly Skin: + pallor Psychiatric: Orientation: alert and oriented x 3 Results & Data ([facility]) Vital Signs (Past 12 Hours) Vital Signs Temp Pulse Pulse Resp BP Pulse Ox 11/26/20 08:04 36.7 C 104 H 19 106/63 93 11/26/20 03:35 36.9 C 87 22 106/62 95 11/26/20 00:09 36.7 C 94 H 22 129/77 95 11/26/20 00:00 100 H PG Care Time/CCT Total # of Minutes Spent Total Time Spent with Patient: Total time spent is greater than 50% in coordination of care (as documented) at patient's floor/unit and/or counseling patient: Coding Level of Care Code 82819 Initial Inpt Care Lvl 3 Diagnoses Acute blood loss anemia D62 Melena K92.1
[2020-11-26] MEDS ORDERED: LACTATED RINGER'S 500 ML IV ONE (10:01)
[2020-11-26] MEDS: ATORVASTATIN 40 MG TAB PO SCH (10:23)
[2020-11-26] MEDS: LIDOCAINE 5% 1 PATCH TD SCH (10:24)
--- NOTE | 2020-11-26 11:20 | Anesthesiology Consultation ---
Date of Service November 26, 2020 Assessment & Plan Chart Review Chart Review: Acceptable Risk for Surgery Consults Requested none History Surgery Operation Date: 11/26/20 16:25 Proposed Procedures p Colonoscopy EGD Dr. Anel Tam MD Height/Weight Height: 6 ft 1 in Weight: 90 kg Allergies Allergy/AdvReac Type Severity Reaction Status Date / Time Iodinated Contrast Media Allergy Severe ANAPHYLAXIS Verified 11/26/20 11:10 Sulfa (Sulfonamide Allergy Unknown UNKNOWN Verified 11/26/20 11:10 Antibiotics) Medications Home Medications Medication Instructions Recorded Confirmed Last Taken aspirin [Aspir-Low] 81 mg PO DAILY 11/22/20 11/22/20 11/22/20 08:00 atorvastatin 40 mg PO HS 11/22/20 11/22/20 Unknown bumetanide 2 mg PO QAM 11/22/20 11/22/20 11/22/20 08:00 calcium citrate 200 mg PO BID 11/22/20 11/22/20 11/22/20 08:00 cholecalciferol (vitamin D3) 125 mcg PO WK 11/22/20 11/22/20 Unknown [Vitamin D3] docusate sodium [Colace] 100 mg PO BID 11/22/20 11/22/20 11/22/20 08:00 ferrous sulfate 325 mg PO BID 11/22/20 11/22/20 11/22/20 08:00 fluticasone propion-salmeterol 1 ea INHALATION BID 11/22/20 11/22/20 Unknown [Advair Diskus] ipratropium-albuterol 3 ml INHALATION Q4H PRN 11/22/20 11/22/20 Unknown methimazole 5 mg PO DAILY 11/22/20 11/22/20 11/22/20 08:00 metoprolol succinate 25 mg PO DAILY 11/22/20 11/22/20 11/22/20 09:00 multivitamin 1 tab PO DAILY 11/22/20 11/22/20 Unknown pantoprazole 40 mg PO DAILY 11/22/20 11/22/20 11/22/20 07:00 polyethylene glycol 3350 [Miralax] 17 g PO DAILY PRN 11/22/20 11/22/20 Unknown potassium chloride 10 meq PO QPM 11/22/20 11/22/20 Unknown Active Medications Generic Name Dose Route Start Last Admin Trade Name Freq PRN Reason Stop Dose Admin Atorvastatin Calcium 40 mg 11/23/20 09:00 11/26/20 10:23 Atorvastatin 40 Mg Tab PO 12/23/20 08:59 Not Given DAILY DAVID Lidocaine 1 patch 11/23/20 05:45 11/26/20 10:24 Lidocaine 5% 1 Patch TD 12/23/20 05:44 Not Given QAM DAVID Magnesium Hydroxide 30 ml 11/22/20 21:51 11/23/20 08:38 Magnesium Hydroxide Susp 30 Ml Udc PO 12/22/20 21:50 30 ml Q12H PRN Administration Constipation Miscellaneous 1 ea 11/23/20 21:00 11/25/20 20:46 Remove Lidoderm Patch N/A 12/23/20 20:59 1 ea DAILY@2100 DAVID Administration Polyethylene Glycol 17 gm 11/22/20 21:51 11/23/20 08:38 Polyethylene (Miralax) 17 Gm Pack PO 12/22/20 21:50 17 gm DAILY PRN Administration Constipation Tramadol HCl 50 mg 11/23/20 15:33 11/24/20 19:58 Tramadol Hcl 50 Mg Tablet PO 12/23/20 15:32 50 mg Q4H PRN Administration Pain NPO Date Last Intake of Fluids: 11/25/20 Time Last Intake of Fluids: 23:30 Date Last Intake of Solids: 11/25/20 Time Last Intake of Solids: 08:00 Past Medical History Medical History 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 Cancer lYMPHOMA Cholelithiasis Chronic obstructive pulmonary disease Congestive heart failure Depression GERD (gastroesophageal reflux disease) HTN (hypertension) Hypertension Hyperthyroidism Kidney stone Lymphoma Respiratory failure requiring intubation Status post placement of implantable loop recorder Stroke Past Family History Family History Unknown Myocardial infarction Past Surgical History Surgical History History of cardiac cath Social History Smoking Status: Never smoker tobacco type: cigarettes Hx Alcohol Use: No Hx Substance Use: No substance use type: does not use Physical Exam Vital Signs Last Vital Signs Temp 37.1 C 11/26/20 11:11 Pulse 98 H 11/26/20 11:11 Resp 18 11/26/20 11:11 BP 104/81 11/26/20 11:11 Pulse Ox 95 11/26/20 11:11 Testing Laboratory Results 11/26/20 07:57 11/26/20 06:18 PT 13.1 Seconds (9.0-12.0) H 11/22/20 17:38 INR 1.3 (0.9-1.1) H 11/22/20 17:38 APTT 26.6 Seconds (21.0-31.0) 11/22/20 17:38 Urine Color Yellow 11/22/20 19:41 Urine Appearance Clear (Clear) 11/22/20 19:41 Urine pH 5.0 (4.5-7.5) 11/22/20 19:41 Ur Specific [place] 1.014 (1.000-1.030) 11/22/20 19:41 Urine Protein Negative (Negative) 11/22/20 19:41 Urine Glucose (UA) Negative (Negative) 11/22/20 19:41 Urine Ketones Negative (Negative) 11/22/20 19:41 Urine Nitrite Negative (Negative) 11/22/20 19:41 Ur Leukocyte Esterase Negative (Negative) 11/22/20 19:41 Blood Type O Positive 11/22/20 17:38 Antibody Screen NEGATIVE 11/22/20 17:38
[2020-11-26] MEDS: LACTATED RINGER'S 1,000 ML IV SCH ×2 (11:25→20:34)
--- NOTE | 2020-11-26 11:44 | History & Physical Bridge Note ---
Date of Service November 26, 2020 History & Physical Bridge Note I have examined the patient, reviewed the History & Physical and in the interval since the performance of the History & Physical I have noted the following changes of clinical significance: no changes noted Proceed with EGD. proceed with colonoscopy. risks/benefits and procedure discussed with patient, who agrees to proceed
[2020-11-26] MEDS ORDERED: KETAMINE 50 MG/5 ML SYRINGE ONE (12:01)
[2020-11-26] MEDS ORDERED: LIDOCAINE 2% 2 ML VIAL/AMP(20MG/ML) INFIL ONE (12:24)
[2020-11-26] MEDS ORDERED: PROPOFOL IV EMULSION 10 MG/ML 20 ML VIAL IV ONE (12:24)
[2020-11-26] MEDS ORDERED: PHENYLEPHRINE 100MCG/ML 5ML SYR ONE (12:24)
--- NOTE | 2020-11-26 12:30 | GI REPORT ---
Patient Name: Matty Smiley Procedure Date: 11/26/2020 12:00 PM Date of : 1930 Admit Type: Inpatient Age: 89 Gender: Male Attending MD: Drew Tam MD Procedure: Upper GI endoscopy Providers: Drew Tam MD Referring MD: Referred Self Indications: Unexplained iron deficiency anemia Medicines: Monitored Anesthesia Care Complications: No immediate complications. Estimated blood loss: None. Estimated Blood Loss: Estimated blood loss: none. Procedure: Pre-Anesthesia Assessment: - Prior Anticoagulants: The patient has taken no previous anticoagulant or antiplatelet agents. - ASA Grade Assessment: III - A patient with severe systemic disease. After obtaining informed consent, the endoscope was passed under direct vision. Throughout the procedure, the patient's blood pressure, pulse, and oxygen saturations were monitored continuously. The Endoscope was introduced through the mouth, and advanced to the second part of duodenum. The upper GI endoscopy was accomplished without difficulty. The patient tolerated the procedure well. Findings: A medium-sized hiatal hernia was present. The entire examined stomach was normal. The duodenal bulb and second portion of the duodenum were normal. Impression: - Medium-sized hiatal hernia. - Normal stomach. - Normal duodenal bulb and second portion of the duodenum. - No specimens collected. Recommendation: - Return patient to hospital [facility] for ongoing care. - Clear liquid diet today. Drew Tam MD 11/26/2020 12:29:55 PM This report has been signed electronically. Note Initiated On: 11/26/2020 12:00 PM Number of Addenda: 0 I attest to the content of the Intraoperative Record and orders documented therein, exceptions below {[id number]}
--- NOTE | 2020-11-26 12:34 | GI REPORT ---
Patient Name: Matty Smiley Procedure Date: 11/26/2020 12:00 PM Date of : 1930 Admit Type: Inpatient Age: 89 Gender: Male Attending MD: Drew Tam MD Procedure: Colonoscopy Providers: Drew Tam MD Referring MD: Referred Self Indications: Unexplained iron deficiency anemia Medicines: Monitored Anesthesia Care Complications: No immediate complications. Estimated blood loss: None. Estimated Blood Loss: Estimated blood loss: none. Procedure: Pre-Anesthesia Assessment: - Prior Anticoagulants: The patient has taken no previous anticoagulant or antiplatelet agents. - ASA Grade Assessment: III - A patient with severe systemic disease. After I obtained informed consent, the scope was passed under direct vision. Throughout the procedure, the patient's blood pressure, pulse, and oxygen saturations were monitored continuously. The Scope was introduced through the anus and advanced to the cecum, identified by appendiceal orifice and ileocecal valve. The colonoscopy was performed without difficulty. The patient tolerated the procedure well. The quality of the bowel preparation was fair. Findings: A fungating medium-sized mass was found at the appendiceal orifice. No bleeding was present. Biopsies were taken with a cold forceps for histology. Estimated blood loss: none. Multiple small and large-mouthed diverticula were found in the sigmoid colon and descending colon. Non-bleeding internal hemorrhoids were found. The hemorrhoids were small. Non-bleeding external hemorrhoids were found. The hemorrhoids were medium-sized. Impression: - Preparation of the colon was fair. 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 Biopsied. - Diverticulosis in the sigmoid colon and in the descending colon. - Non-bleeding internal hemorrhoids. - Non-bleeding external hemorrhoids. Recommendation: - Return patient to hospital [facility] for ongoing care. - Clear liquid diet today. - Await pathology results. -obtain CT Chest/abdomen/pelvis with contrast to evaluate for metastatic disease -recommend surgery consultation and oncology evaluation eventually Drew Tam MD 11/26/2020 12:33:43 PM This report has been signed electronically. Note Initiated On: 11/26/2020 12:00 PM Number of Addenda: 0 I attest to the content of the Intraoperative Record and orders documented therein, exceptions below {[id number]}
--- NOTE | 2020-11-26 12:46 | Anesthesiology Progress Note ---
Date of Service November 26, 2020 Anesthesia Post Procedure Vital Signs Vital Signs: Temp Pulse Pulse Resp BP BP Pulse Ox 11/26/20 11:11 37.1 C 98 H 18 104/81 95 11/26/20 08:04 36.7 C 104 H 19 106/63 93 11/26/20 03:35 36.9 C 87 22 106/62 95 11/26/20 00:09 36.7 C 94 H 22 129/77 95 11/26/20 00:00 100 H 11/25/20 19:13 36.8 C 89 116/81 99 11/25/20 16:00 36.8 C 89 88 20 107/79 11/25/20 14:53 36.8 C 86 18 112/79 92 11/25/20 13:56 36.9 C 83 18 117/77 100 11/25/20 12:56 36.5 C 96 H 18 111/96 94 Pain Intensity Generalized: Pain Intensity: 10 Transfer of Care Handoff Completed per policy Notes Mental Status: alert / awake / arousable and participated in evaluation Patient Amnestic to Procedure: Yes Nausea / Vomiting: adequately controlled Pain: adequately controlled Airway Patency, RR, SpO2: stable & adequate BP & HR: stable & adequate Hydration State: stable & adequate Anesthetic Complications: no major complications apparent
[2020-11-26] MEDS ORDERED: hydrOXYzine HCl 25 MG TAB PO PRN (15:21)
[2020-11-26] MEDS ORDERED: diphenhydrAMINE 50 MG/ML VIAL IV ONE (15:22)
--- NOTE | 2020-11-26 16:28 | Hospitalist Progress Note ---
Date of Service November 26, 2020 Assessment & Plan (1) Anemia: Matty Smiley is a 89-year-old male with past medical history significant for A. fib, diastolic CHF, prior CVA, frequent falls, known AAA, CKD stage III, and COPD; who presented to ER earlier today for concerns of low blood pressure. Iron deficiency and acute blood loss anemia from likely appendiceal mass Hb was up to 8.1, after 2 units then back down to 7.8 transfuse 1/3 unit on 11/25/2020 with appropriate rise of hemoglobin Colonoscopy shows appendiceal mass there are diverticuli without evidence of acute bleeding. Upper endoscopy shows hiatal hernia without evidence of bleeding source Patient agreement to have evaluation by surgery for appendiceal mass. Pathology is pending CT scan of his chest will be undertaken to further evaluate for metastatic disease Regarding his iron deficiency patient will receive a dose of Venofer Appendiceal mass seen on colonoscopy. Surgical consultation will be undertaken. Hypotension: -hold home anti-hypertensives at this time blood pressure is acceptable without -BP remains low even after transfusions Falls: -concerns regarding patient's safety given numerous falls, rib fractures possible sacral fracture. Family does not want the patient to go home however the patient adamantly does not want to go to any rehab or supportive environment -PT/OT consulted for evaluation evaluation delayed by procedures on 11/26/20 Acute Kidney Injury: Resolved -Cr 1.77 on admission -likely 2/2 anemia and hypotension with poor renal perfusion Multiple Rib Fractures: right side, ribs 6 and 7 and L1 transverse process fracture -Incidentally noted on CT scan -patient recently admitted to [facility] in [place] for this following recent fall Pain controlled with Ultram 50mg q4 PRN, Tylenol PRN Atrial Fibrillation: -discontinue Eliquis in the setting of numerous falls, and anemia Diet: Heart Healthy CODE STATUS: DNR/DNI I spent over 90 minutes with the patient and the family at the bedside (2) SHAY (acute kidney injury): (3) Multiple rib fractures: (4) Atrial fibrillation, permanent: (5) History of CVA (cerebrovascular accident): (6) Hyperlipidemia: (7) Diastolic CHF: Admission and Anticipated Discharge Date Admission Date: November 22, 2020 Subjective Patient was seen pre and post procedure. The results of the procedure were disclosed to the patient and he had a medium sized fungating appendiceal mass. This is likely the source of his iron deficiency and acute blood loss anemia. The patient was in agreement to have surgical consultation to further evaluate his treatment options. He was made to understand that you are not aware that this is cancer or not cancer at this point. I also phoned his family and gave him the information they seem satisfied with the information and no additional questions. They are also supportive of surgical evaluation. Patient is pending a CT scan of his chest. He did have an abdomen pelvis CT scan without contrast on presentation with did not suggest other concerning masses in his abdomen and pelvis. There was some discussion of a nodularity seen in his right lower lobe on one particular image this was listed as 3 mm Review of Systems Review of Systems: Mild distress and fatigue no headache, blurry or double vision no speech or swallowing issues no chest pain, pressure or palpitations Baseline shortness of breath and oxygen requirement,no cough or wheezes no abdominal pain, nausea or vomiting, has not had a bowel movement here no dysuria, hematuria or frequency no focal joint pain or swelling no back pain, CVA tenderness or radicular pain has some open areas and bleeding from picking his skin there is description of skin lesions over the patient picks them before they can be assessed no focal signs of weakness or numbness or altered sensation no complaints of anxiety or depression.. Physical Exam Physical Exam: The patient appeared chronically ill and slightly demented Vital signs as documented. Head exam is normocephalic atraumatic Neck is without JVD, thyromegaly, or carotid bruits. Lungs are poor air movement no focal loss of breath sounds Cardiac exam, Rhythm is regular.. No murmurs, rubs or gallops. Abdominal exam reveals normal bowel sounds, soft epigastric discomfort Extremities are nonedematous and both pedal pulses are present Neurologic exam is alert and oriented x3 but at times gets confused, no focal loss of strength or sensation Skin is with open areas especially his left elbow Psychologically is with concerns for some memory impairment Results & Data Results & Data ([facility]) Vital Signs (Past 12 Hours) Vital Signs Temp Pulse Resp BP Pulse Ox 11/26/20 13:00 96 H 18 119/64 91 11/26/20 12:44 97 H 18 113/82 92 11/26/20 12:29 90 18 103/59 L 95 11/26/20 11:11 98.8 F 98 H 18 104/81 95 11/26/20 08:04 98.1 F 104 H 19 106/63 93 PG Care Time/CCT Total # of Minutes Spent Total Time Spent with Patient: Total time spent is greater than 50% in coordination of care (as documented) at patient's floor/unit and/or counseling patient: Coding Level of Care Code 09672 Subseq Hosp Care Lvl 3 Diagnoses Anemia D64.9 Anemia type: unspecified type SHAY (acute kidney injury) N17.9 Multiple rib fractures S22.41XA Encounter type: initial encounter Fracture type: closed Laterality: right Atrial fibrillation, permanent I48.21 History of CVA (cerebrovascular accident) Z86.73 Hyperlipidemia E78.5 Diastolic CHF I50.32 Heart failure chronicity: chronic (1) Anemia Anemia type: unspecified type Qualified Code(s): D64.9 - Anemia, unspecified (2) Multiple rib fractures Encounter type: initial encounter Fracture type: closed Laterality: right Qualified Code(s): S22.41XA - Multiple fractures of ribs, right side, initial encounter for closed fracture (3) Diastolic CHF Heart failure chronicity: chronic Qualified Code(s): I50.32 - Chronic diastolic (congestive) heart failure
[2020-11-26] MEDS ORDERED: IRON SUCROSE 200 MG in 0.9 % SODIUM CHLORIDE 100 ML IV ONE (16:30)
--- NOTE | 2020-11-26 16:51 | CT Scan Report ---
CT chest diagnostic wo con CLINICAL HISTORY: metastatic evaluation, LYMPHOMA COMPARISON STUDY: Chest x-ray dated 11/24/2020, CT scan dated 12/17/2018 CT DOSE: 579.84 mGycm TECHNIQUE: CT of the thorax was performed from the thoracic inlet to the lung bases. Images are revi ewed in the axial, sagittal, and coronal planes. IV contrast was not administered for this examinatio n. A dose lowering technique was utilized adhering to the principles of ALARA. FINDINGS: Thyroid: There is a multinodular thyroid goiter, similar to the preceding study. Thoracic aorta: There is aneurysmal dilatation of the ascending thoracic aorta which measures 45 mm t he level of the main pulmonary artery. Heart: The heart is enlarged with coronary calcifications. There is a trace pericardial effusion. 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 Lungs and pleural spaces: There are xcsol-rn-nbyxeowt bilateral pleural effusions. There is mild depe ndent compressive atelectatic change. Mediastinum: There is no mediastinal lymphadenopathy. There is no evidence of pathologic mediastinal lymphadenopathy. Sameera: There is no evidence of pathologic hilar adenopathy given the limitations of a noncontrast stud y Axilla: There is no evidence of pathologic axillary lymphadenopathy. Upper abdomen: There is a hiatal hernia. Skeletal structures: There are mild superior endplate upper thoracic compression deformities which ap pear old. There are acute/subacute fractures of the right lateral sixth and seventh ribs. There is ac [place]/subacute fracture of the left L1 transverse process. Correlate with any history of recent trauma. IMPRESSION: 1. No evidence of pathologic adenopathy 2. Cardiomegaly and coronary artery calcifications 3. Aneurysmal dilatation of the ascending thoracic aorta which measures 45 mm 4. 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 Metmy-pr-vflcurfa bilateral pleural effusions with associated lower lobe compressive atelectasis 6. Hiatal hernia 7. Persistent multinodular thyroid goiter. 8. Acute/subacute fractures of the right lateral sixth and seventh ribs. Acute/subacute fracture of t he left L1 transverse process. Correlation with traumatic history recommended. ACT 112: Negative or not required by law. Electronically signed by: Ganesh Dimas M.D. 11/26/2020 4:49 PM
--- NOTE | 2020-11-26 17:05 | Surgery Consultation ---
Date of Consultation November 26, 2020 Assessment & Plan (1) Acute blood loss anemia: Has been anemic for some time, also recent blood loss from rib fractures. Hgb has been stable for past 24 hours, 9.1 & 9.0. Pathology is pending. He would like to return home for a few days before undergoing surgery. Will discuss this further with him and family tomorrow. He was seen by Dr. Rowland in clinic 11/07. History of Present Illness Attending Physician: Rodger Wheeler MD History of Present Illness 89 y/o male admitted 4 days ago for hypotension. This was noted by home health nurse he was having after recent admission for fall and rib fractures last month. Had EGD/colonoscopy today which shows mass at the appendix. He has been falling at home more recently, has been fatigued for some time and has been having darker stools also. He was eating regular dinner at the time of my visit. Allergies Allergy/AdvReac Type Severity Reaction Status Date / Time Iodinated Contrast Media Allergy Severe ANAPHYLAXIS Verified 11/26/20 11:10 Sulfa (Sulfonamide Allergy Unknown UNKNOWN Verified 11/26/20 11:10 Antibiotics) Home Medications Medication Instructions Recorded Confirmed Type aspirin [Aspir-Low] 81 mg PO DAILY 11/22/20 11/22/20 History atorvastatin 40 mg PO HS 11/22/20 11/22/20 History bumetanide 2 mg PO QAM 11/22/20 11/22/20 History calcium citrate 200 mg PO BID 11/22/20 11/22/20 History cholecalciferol (vitamin D3) 125 mcg PO WK 11/22/20 11/22/20 History [Vitamin D3] docusate sodium [Colace] 100 mg PO BID 11/22/20 11/22/20 History ferrous sulfate 325 mg PO BID 11/22/20 11/22/20 History fluticasone propion-salmeterol 1 ea INHALATION BID 11/22/20 11/22/20 History [Advair Diskus] ipratropium-albuterol 3 ml INHALATION Q4H PRN 11/22/20 11/22/20 History methimazole 5 mg PO DAILY 11/22/20 11/22/20 History metoprolol succinate 25 mg PO DAILY 11/22/20 11/22/20 History multivitamin 1 tab PO DAILY 11/22/20 11/22/20 History pantoprazole 40 mg PO DAILY 11/22/20 11/22/20 History polyethylene glycol 3350 [Miralax] 17 g PO DAILY PRN 11/22/20 11/22/20 History potassium chloride 10 meq PO QPM 11/22/20 11/22/20 History Patient History Medical History 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 Cancer lYMPHOMA Cholelithiasis Chronic obstructive pulmonary disease Congestive heart failure Depression GERD (gastroesophageal reflux disease) HTN (hypertension) Hypertension Hyperthyroidism Kidney stone Lymphoma Respiratory failure requiring intubation Status post placement of implantable loop recorder Stroke Surgical History History of cardiac cath Family History Unknown Myocardial infarction Social History Smoking Status: Never smoker Second Hand Exposure: No; Hx Alcohol Use: No Hx Substance Use: No Preferred Language: Yakut Communication Ability: Impaired Visual Impairment: Partially Limited Adjunct Professor Of English Required: No Beliefs That Will Affect Care: None marital status: / Current Living Situation: Alone Current Living Situation Comment: caregiver 24 hour How many Children do You have: 6 Other Information That Helps Us Care for You: No Feels Safe at Home: Yes Safety Concerns: Feels Safe At This Time Assistive Devices: Walker Review of Systems Constitutional: + fatigue and + malaise Gastrointestinal: + melena; no abdominal pain, no bloating and no nausea Physical Exam Constitutional: WD/WN, vitals as above Respiratory: normal respiratory effort Cardiovascular: Rate/Rhythm: + tachycardic Gastrointestinal (Abdomen): Inspection/Auscultation: abdomen not distended Percussion/Palpation: abdomen soft; abdomen nontender Results & Data ([facility]) Vital Signs (Past 12 Hours) Vital Signs Temp Pulse Resp BP Pulse Ox 11/26/20 13:00 96 H 18 119/64 91 11/26/20 12:44 97 H 18 113/82 92 11/26/20 12:29 90 18 103/59 L 95 11/26/20 11:11 37.1 C 98 H 18 104/81 95 11/26/20 08:04 36.7 C 104 H 19 106/63 93 PG Care Time/CCT Total # of Minutes Spent Total Time Spent with Patient: Total time spent is greater than 50% in coordination of care (as documented) at patient's floor/unit and/or counseling patient: Coding Level of Care Code 76588 Initial Inpt Care Lvl 3 Diagnoses Acute blood loss anemia D62
[2020-11-26] MEDS: PANTOprazole 40 MG TAB PO SCH (20:49)
[2020-11-27 07:04] LABS: Hematocrit (blood only) 27.2 % (42-52); Hemoglobin 8.2 g/dL (14.0-18.0); Mean Corpuscular Hemoglobin 26.5 pg (25-34); Mean Corpuscular Hgb Conc 30.1 g/dL (32-36); Mean Platelet Volume 9.5 fL (7.4-10.4); Platelet Count 239 K/uL (130-400); RDW Coefficient of Variation 17.1 % (11.5-14.5); RDW Standard Deviation 55.3 fL (36.4-46.3); Red Blood Count 3.09 M/uL (4.7-6.1); White Blood Count 5.39 K/uL (4.8-10.8)
[2020-11-27] MEDS: PANTOprazole 40 MG TAB PO SCH ×2 (08:25→20:24)
[2020-11-27] MEDS: LIDOCAINE 5% 1 PATCH TD SCH (08:26)
[2020-11-27] MEDS: ATORVASTATIN 40 MG TAB PO SCH (08:26)
--- NOTE | 2020-11-27 08:26 | Surgery Progress Note ---
Date of Service November 27, 2020 Assessment & Plan (1) Acute blood loss anemia: (2) Hypotension due to blood loss: (3) Cecum mass: Very likely this is the source of his anemia. His blood count continues to drop. He is already basically prepped from his colonoscopy. We will make him clear liquids today with a small amount of MiraLAX since he did eat yesterday. I will talk with medicine to make sure there are no contraindications currently to surgery. I will also discuss with his family. He is alert and oriented today and fully wants to have surgery tomorrow. We did discuss risks which would include bleeding, infection, anastomotic leaks, injury to other organs, DVT, PE, OR, CVA etc. After I discussed with medicine and his family we will tentatively schedule for laparoscopic ileocecectomy tomorrow. Admission and Anticipated Discharge Date Admission Date: November 22, 2020 Subjective pt seen. feeling ok. no new complaints. Physical Exam Constitutional: WD/WN, vitals as above no acute distress and not ill appearing Eyes: PERRL, conjunctivae normal, anicteric sclerae EOM intact bilaterally ENMT: external ear and nose normal, oropharynx normal Ears: no hearing impairment Neck: trachea midline, no thyromegaly Respiratory: normal respiratory effort; no respiratory distress and does not use accessory muscles Cardiovascular: Rate/Rhythm: regular rate and regular rhythm Gastrointestinal (Abdomen): soft. nt. no palpable abnormalities. Skin: no rashes, warm and dry Psychiatric: Orientation: alert, oriented x 3 and cooperative Results & Data ([facility]) Vital Signs (Past 12 Hours) Vital Signs Temp Pulse Pulse Resp BP Pulse Ox 11/27/20 07:01 36.4 C L 98 H 24 133/82 91 11/27/20 02:44 36.3 C L 65 20 119/75 95 11/26/20 23:07 37.0 C 96 H 22 108/64 95 11/26/20 22:20 99 H PG Care Time/CCT Total # of Minutes Spent Total Time Spent with Patient: Total time spent is greater than 50% in nutrition coordinator rdination of care (as documented) at patient's floor/unit and/or counseling patient: Coding Level of Care Code 85268 Subseq Hosp Care Lvl 3 Diagnoses Acute blood loss anemia D62 Hypotension due to blood loss I95.89 Cecum mass K63.89
--- NOTE | 2020-11-27 09:30 | Hospitalist Progress Note ---
Date of Service November 27, 2020 Assessment & Plan (1) Anemia: Matty Smiley is a 89-year-old male with past medical history significant for A. fib, diastolic CHF, prior CVA, frequent falls, known AAA, CKD stage III, and COPD; who presented to ER earlier today for concerns of low blood pressure. 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 Upper endoscopy shows hiatal hernia without evidence of bleeding source Patient agreement to have evaluation by surgery for appendiceal mass. Pathology is pending CT scan of his chest will be undertaken to further evaluate for metastatic disease Regarding his iron deficiency patient will receive a dose of Venofer Appendiceal mass seen on colonoscopy. 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 Family does not want the patient to go home however the patient adamantly does not want to go to any rehab or supportive environment -PT/OT consulted Acute Kidney Injury: Resolved -Cr 1.77 on admission -likely 2/2 anemia and hypotension with poor renal perfusion Multiple Rib Fractures: right side, ribs 6 and 7 and L1 transverse process fracture -Incidentally noted on CT scan -patient recently admitted to hospital in [place] for this following recent fall Pain controlled with Ultram 50mg q4 PRN, Tylenol PRN Atrial Fibrillation:rate controlled low dose metoprolol -discontinue Eliquis in the setting of numerous falls, and anemia Diet: Heart Healthy CODE STATUS: DNR/DNI (2) SHAY (acute kidney injury): (3) Multiple rib fractures: (4) Atrial fibrillation, permanent: (5) History of CVA (cerebrovascular accident): (6) Hyperlipidemia: (7) Diastolic CHF: Admission and Anticipated Discharge Date Admission Date: November 22, 2020 Subjective pt seen. feeling ok. no new complaints. he continues to be bothered by itching that has been helped by atarax Review of Systems Review of Systems: Mild distress and fatigue no headache, blurry or double vision no speech or swallowing issues no chest pain, pressure or palpitations Baseline shortness of breath and oxygen requirement,no cough or wheezes no abdominal pain, nausea or vomiting, has not had a bowel movement here no dysuria, hematuria or frequency no focal joint pain or swelling no back pain, CVA tenderness or radicular pain has some open areas and bleeding from picking his skin there is description of skin lesions over the patient picks them before they can be assessed no focal signs of weakness or numbness or altered sensation no complaints of anxiety or depression.. Cardiovascular: + chest pain (right sided, rib pain) Musculoskeletal: + joint pain (left hip and thigh) Physical Exam Physical Exam: The patient appeared chronically ill and slightly demented Vital signs as documented. Head exam is normocephalic atraumatic Neck is without JVD, thyromegaly, or carotid bruits. Lungs are poor air movement no focal loss of breath sounds Cardiac exam, Rhythm is regular.. No murmurs, rubs or gallops. Abdominal exam reveals normal bowel sounds, soft epigastric discomfort Extremities are nonedematous and both pedal pulses are present Neurologic exam is alert and oriented x3 but at times gets confused, no focal loss of strength or sensation Skin is with open areas especially his left elbow Psychologically is with concerns for some memory impairment Results & Data Results & Data ([facility]) Vital Signs (Past 12 Hours) Vital Signs Temp Pulse Pulse Resp BP Pulse Ox 11/27/20 07:01 97.5 F L 98 H 24 133/82 91 11/27/20 02:44 97.3 F L 65 20 119/75 95 11/26/20 23:07 98.6 F 96 H 22 108/64 95 11/26/20 22:20 99 H PG Care Time/CCT Total # of Minutes Spent Total Time Spent with Patient: Total time spent is greater than 50% in coordination of care (as documented) at patient's floor/unit and/or counseling patient: Coding Level of Care Code 06018 Subseq Hosp Care Lvl 3 Diagnoses Anemia D64.9 Anemia type: unspecified type SHAY (acute kidney injury) N17.9 Multiple rib fractures S22.41XA Encounter type: initial encounter Fracture type: closed Laterality: right Atrial fibrillation, permanent I48.21 History of CVA (cerebrovascular accident) Z86.73 Hyperlipidemia E78.5 Diastolic CHF I50.32 Heart failure chronicity: chronic (1) Diastolic CHF Heart failure chronicity: chronic Qualified Code(s): I50.32 - Chronic diastolic (congestive) heart failure (2) Multiple rib fractures Encounter type: initial encounter Fracture type: closed Laterality: right Qualified Code(s): S22.41XA - Multiple fractures of ribs, right side, initial encounter for closed fracture (3) Anemia Anemia type: unspecified type Qualified Code(s): D64.9 - Anemia, unspecified
--- NOTE | 2020-11-27 13:46 | Anesthesiology Consultation ---
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 Tam - Drew Tam MD Operation Date: 11/28/20 11:35 Proposed Procedures p Laparoscopic Ileocecectomy - Wesley Saleem DO Height/Weight Height: 6 ft 1 in Weight: 90.9 kg Allergies Allergy/AdvReac Type Severity Reaction Status Date / Time Iodinated Contrast Media Allergy Severe ANAPHYLAXIS Verified 11/26/20 11:10 Sulfa (Sulfonamide Allergy Unknown UNKNOWN Verified 11/26/20 11:10 Antibiotics) Medications Home Medications Medication Instructions Recorded Confirmed Last Taken aspirin [Aspir-Low] 81 mg PO DAILY 11/22/20 11/22/20 11/22/20 08:00 atorvastatin 40 mg PO HS 11/22/20 11/22/20 Unknown bumetanide 2 mg PO QAM 11/22/20 11/22/20 11/22/20 08:00 calcium citrate 200 mg PO BID 11/22/20 11/22/20 11/22/20 08:00 cholecalciferol (vitamin D3) 125 mcg PO WK 11/22/20 11/22/20 Unknown [Vitamin D3] docusate sodium [Colace] 100 mg PO BID 11/22/20 11/22/20 11/22/20 08:00 ferrous sulfate 325 mg PO BID 11/22/20 11/22/20 11/22/20 08:00 fluticasone propion-salmeterol 1 ea INHALATION BID 11/22/20 11/22/20 Unknown [Advair Diskus] ipratropium-albuterol 3 ml INHALATION Q4H PRN 11/22/20 11/22/20 Unknown methimazole 5 mg PO DAILY 11/22/20 11/22/20 11/22/20 08:00 metoprolol succinate 25 mg PO DAILY 11/22/20 11/22/20 11/22/20 09:00 multivitamin 1 tab PO DAILY 11/22/20 11/22/20 Unknown pantoprazole 40 mg PO DAILY 11/22/20 11/22/20 11/22/20 07:00 polyethylene glycol 3350 [Miralax] 17 g PO DAILY PRN 11/22/20 11/22/20 Unknown potassium chloride 10 meq PO QPM 11/22/20 11/22/20 Unknown Active Medications Generic Name Dose Route Start Last Admin Trade Name Freq PRN Reason Stop Dose Admin Atorvastatin Calcium 40 mg 11/23/20 09:00 11/27/20 08:26 Atorvastatin 40 Mg Tab PO 12/23/20 08:59 40 mg DAILY DAVID Administration Hydroxyzine HCl 25 mg 11/26/20 15:21 11/26/20 17:43 Hydroxyzine Hcl 25 Mg Tab PO 12/26/20 15:20 25 mg Q6H PRN Administration Itching Lidocaine 1 patch 11/23/20 05:45 11/27/20 08:26 Lidocaine 5% 1 Patch TD 12/23/20 05:44 Not Given QAM DAVID Magnesium Hydroxide 30 ml 11/22/20 21:51 11/23/20 08:38 Magnesium Hydroxide Susp 30 Ml Udc PO 12/22/20 21:50 30 ml Q12H PRN Administration Constipation Miscellaneous 1 ea 11/23/20 21:00 11/26/20 20:54 Remove Lidoderm Patch N/A 12/23/20 20:59 1 ea DAILY@2100 DAVID Administration Pantoprazole Sodium 40 mg 11/26/20 21:00 11/27/20 08:25 Pantoprazole 40 Mg Tab PO 12/26/20 20:59 40 mg BID DAVID Administration Polyethylene Glycol 17 gm 11/22/20 21:51 11/23/20 08:38 Polyethylene (Miralax) 17 Gm Pack PO 12/22/20 21:50 17 gm DAILY PRN Administration Constipation Tramadol HCl 50 mg 11/23/20 15:33 11/24/20 19:58 Tramadol Hcl 50 Mg Tablet PO 12/23/20 15:32 50 mg Q4H PRN Administration Pain NPO Date Last Intake of Fluids: 11/25/20 Time Last Intake of Fluids: 23:30 Date Last Intake of Solids: 11/25/20 Time Last Intake of Solids: 08:00 Past Medical History Medical History 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 Cancer lYMPHOMA Cholelithiasis Chronic obstructive pulmonary disease Congestive heart failure Depression GERD (gastroesophageal reflux disease) HTN (hypertension) Hypertension Hyperthyroidism Kidney stone Lymphoma Respiratory failure requiring intubation Status post placement of implantable loop recorder Stroke Past Family History Family History Unknown Myocardial infarction Past Surgical History Surgical History History of cardiac cath Social History Smoking Status: Never smoker tobacco type: cigarettes Hx Alcohol Use: No Hx Substance Use: No substance use type: does not use Physical Exam Vital Signs Last Vital Signs Temp 97.5 F L 11/27/20 10:46 Pulse 96 H 11/27/20 10:46 Resp 20 11/27/20 10:46 BP 112/76 11/27/20 10:46 Pulse Ox 91 11/27/20 10:46 Testing Laboratory Results 11/27/20 06:24 11/26/20 06:18 PT 13.1 Seconds (9.0-12.0) H 11/22/20 17:38 INR 1.3 (0.9-1.1) H 11/22/20 17:38 APTT 26.6 Seconds (21.0-31.0) 11/22/20 17:38 Urine Color Yellow 11/22/20 19:41 Urine Appearance Clear (Clear) 11/22/20 19:41 Urine pH 5.0 (4.5-7.5) 11/22/20 19:41 Ur Specific Burton 1.014 (1.000-1.030) 11/22/20 19:41 Urine Protein Negative (Negative) 11/22/20 19:41 Urine Glucose (UA) Negative (Negative) 11/22/20 19:41 Urine Ketones Negative (Negative) 11/22/20 19:41 Urine Nitrite Negative (Negative) 11/22/20 19:41 Ur Leukocyte Esterase Negative (Negative) 11/22/20 19:41 Blood Type O Positive 11/22/20 17:38 Antibody Screen NEGATIVE 11/22/20 17:38 Electrocardiogram Date: 11/22/20 Poor data quality, interpretation may be adversely affected Atrial fibrillation, rate 69 bpm Right bundle branch block Nonspecific T wave abnormality Abnormal ECG When compared with ECG of 25-OCT-2020 23:10, PVC's are no longer present Confirmed by Judd Gomez ([id number]) on 11/23/2020 3:01:38 PM Chest X-Ray Date: 11/24/20 IMPRESSION: 1. Marked cardiomegaly and emphysema. There is unchanged prominence of the central pulmonary vessels. Correlate clinically for evidence of mild congestive failure. 2. Bibasilar airspace opacities likely represent scarring/atelectasis. Correlate clinically for evidence of superimposed pneumonia/aspiration pneumonitis Echocardiogram Date: 10/23/20 LV systolic function is normal No regional wall motion abnormalities noted There is mild concentric LVH Flattened septum is consistent with RV volume overload EF 60-65% There is mod MR There is mod TR Compared with study dated 12/16/2018, no significant change Other Testing Abd/pelvis CT 11/22/20 IMPRESSION: 1. Suboptimal examination without IV contrast. There is also streak and motion artifact 2. There are acute right-sided rib fractures and an acute left transverse process fracture of L1 as above. 3. There is no evidence of solid organ injury in the abdomen or pelvis. Enhanced examination. Note that this is suboptimally assessed without IV contrast. 4. Cardiomegaly and emphysema. 5. Small pleural effusions. 6. There is a 4.9 x 5.9 cm abdominal aortic aneurysm as detailed above. There is no CT evidence of rupture at the time of examination. 7. Cholelithiasis and choledocholithiasis. The gallbladder is distended and there may be mild gallbladder wall thickening. Correlate with clinical and laboratory findings for evidence of acute cholecystitis. This could be further assessed with right upper quadrant ultrasound if clinically warranted. 8. There is trace abdominopelvic ascites as well as diffuse mesenteric edema. 9. Moderate to advanced colonic diverticulosis without CT evidence of acute diverticulitis. 10. Moderate hiatal hernia. 11. Right-sided nephrolithiasis. 12. Additional findings as above.
[2020-11-27] MEDS: POLYETHYLENE (MIRALAX) 17 GM PACK PO SCH ×2 (14:17→20:29)
[2020-11-27] MEDS: METOPROLOL TARTRATE 25 MG TAB PO SCH (21:27)
[2020-11-28 06:54] LABS: Hematocrit (blood only) 28.1 % (42-52); Hemoglobin 8.4 g/dL (14.0-18.0); Mean Corpuscular Hemoglobin 26.8 pg (25-34); Mean Corpuscular Hgb Conc 29.9 g/dL (32-36); Mean Corpuscular Volume 89.8 fL (80-100); Mean Platelet Volume 9.3 fL (7.4-10.4); Platelet Count 212 K/uL (130-400); RDW Coefficient of Variation 17.3 % (11.5-14.5); RDW Standard Deviation 56.3 fL (36.4-46.3); Red Blood Count 3.13 M/uL (4.7-6.1); White Blood Count 4.79 K/uL (4.8-10.8)
[2020-11-28] MEDS: METOPROLOL TARTRATE 25 MG TAB PO SCH ×2 (08:43→22:50)
[2020-11-28] MEDS: PANTOprazole 40 MG TAB PO SCH (08:44)
[2020-11-28] MEDS: LIDOCAINE 5% 1 PATCH TD SCH (08:44)
[2020-11-28] MEDS: POLYETHYLENE (MIRALAX) 17 GM PACK PO SCH ×2 (08:45→15:04)
[2020-11-28] MEDS ORDERED: LIDOCAINE 2% 2 ML VIAL/AMP(20MG/ML) INFIL ONE ×2 (09:26→10:44)
--- NOTE | 2020-11-28 10:34 | History & Physical Bridge Note ---
Date of Service November 28, 2020 History & Physical Bridge Note I have examined the patient, reviewed the History & Physical and in the interval since the performance of the History & Physical I have noted the following changes of clinical significance: no changes noted discussed findings/surgical options with patient, as well as lenghty discussion with his family both yesterday and today. D/w Dr. Munson, pt at reasonable surgical risks... discussed plan of laparoscopic bowel resection. discussed risks ( bleeding/infection/injury to another structure, leaks, dvt/pe/mi/cva etc.... questions answered. will proceed today with laparoscopic bowel resection.
[2020-11-28] MEDS ORDERED: fentaNYL citrate 100 MCG/2 ML VIAL ONE (10:44)
[2020-11-28] MEDS ORDERED: DEXAMETHASONE SOD INJ 4 MG/ML VIAL ONE (10:44)
[2020-11-28] MEDS ORDERED: PROPOFOL IV EMULSION 10 MG/ML 20 ML VIAL IV ONE (10:44)
[2020-11-28] MEDS ORDERED: NEOSTIGMINE METHYLSULFATE 1 MG/ML 10ML VIAL ONE (10:44)
[2020-11-28] MEDS ORDERED: ONDANSETRON INJ 2 MG/ML 2 ML VIAL ONE (10:44)
[2020-11-28] MEDS ORDERED: GLYCOPYRROLATE 0.2 MG/ML VIAL ONE (10:44)
[2020-11-28] MEDS ORDERED: ePHEDrine sulfate 50 MG/ML AMP IV PRN (10:59)
[2020-11-28] MEDS ORDERED: ATROPINE SULFATE 0.1 MG/ML 10ML SYR IV PRN (10:59)
[2020-11-28] MEDS ORDERED: ONDANSETRON INJ 2 MG/ML 2 ML VIAL IV PRN (10:59)
[2020-11-28] MEDS ORDERED: ALBUT/IPRATROP 3MG/0.5MG NEB 3 ML VIAL NEB STA (11:11)
[2020-11-28] MEDS ORDERED: ceFAZolin 2,000 MG/15 ML IV PUSH IV ONE (11:18)
[2020-11-28] MEDS ORDERED: SUGAMMADEX SODIUM 200 MG/2 ML VIAL IV ONE (11:29)
[2020-11-28] MEDS ORDERED: BUPIVACAINE/EPINEPHRINE 0.5% MPF 1:200,000 30 ML VIAL ONE (11:32)
[2020-11-28] MEDS ORDERED: PHENYLEPHRINE HCL 10 MG/ML VIAL ONE (12:41)
[2020-11-28] MEDS ORDERED: PHENYLEPHRINE 100MCG/ML 5ML SYR ONE (12:41)
--- NOTE | 2020-11-28 14:09 | Operative Report ---
PG Post Operative Report Pre & Post Diagnosis Operation Date: 11/26/20 16:25 Pre-Op Diagnosis: ANEMIA, HYPOTENSION Post-Op Diagnosis: EGD: hiatal hernia Colonoscopy: diverticulosis, hemorrhoids, appendiceal mass Operation Date: 11/28/20 11:35 Pre-Op Diagnosis: cecum mass Post-Op Diagnosis: cecum mass and umbilical hernia I identified the patient and participated in the time-out.: Yes Procedure Operation Date: 11/26/20 16:25 Actual Procedures p Esophagogastroduodenoscopy - Drew Tam MD s Colonoscopy Biopsy Cytology - Drew Tam MD Operation Date: 11/28/20 11:35 Actual Procedures p Laparoscopic Ileocecectomy and umbilical hernia repair(Not Applicable) - Wesley Saleem DO Surgeon Wesley Saleem DO Foundry Operator leo Morrissey Estimated Blood Loss 10 Findings Consistent with Post-Op Diagnosis Specimens terminal ileum, cecum, portion of right colon Description of Procedure After informed consent was obtained the patient was taken to the operating room and placed in supine position. After successful intubation a Root catheter was placed. The abdomen was shaved and sterilely prepped and draped in usual fashion. Once he was under general anesthesia there was an obvious umbilical hernia. I made an incision through the skin directly above this and carried it down through the soft tissue using cautery. I placed an 0 Vicryl stay suture on either side the fascial defect and excised the hernia sac. 12 mm Almaraz trocar was then placed through the hernia and the abdomen was insufflated to 18 mmHg. Laparoscope was inserted and the abdomen examined in 360 degrees. There was a large right inguinal hernia. There were also some adhesions to the right lower quadrant and right abdominal sidewall involving the small bowel appendix and cecum. He also had some bilious tinged ascitic fluid in the right upper quadrant. A suprapubic 5 mm trocar and a left lower quadrant 12 mm trocar were placed under direct vision. The patient was placed in a Trendelenburg position and slightly airplaned to the left. I Began by examining the right lower quadrant. The cecum and appendix were attached to the right abdominal sidewall. Traction countertraction and harmonic scalpel were used to take these adhesions down. I then continued up along the white line of Toldt laterally on the cecum and right colon until I could fully mobilized the entire right colon. At this point I transected the terminal ileum several inches proximal to the ileocecal valve with a SUSANA brown cartridge linear stapler. We then began slowly taking down some of the small bowel and cecal mesentery again using the harmonic scalpel. Eventually I had this fully mobilized up to the hepatic flexure. We placed a right mid abdominal 5 mm trocar to assist with this. Once this was fully mobilized we then extended the right trocar incision superiorly and inferiorly. The fascia was opened up and we were able to deliver the terminal ileum and cecum into the incision. Incision was toweled off. We transected the right colon at a spot just distal to the cecum using a SUSANA brown cartridge linear stapler. The goal of today was to remove the cecum/mass as quickly as possible to limit operative time. My goal today was not a formal cancer surgery. We continued using the harmonic scalpel to take down the remainder of the cecal mesentery. The specimen was sent to pathology. We were able to palpate the mass right near the appendiceal orifice. Next we delivered the stapled portion of small bowel into the wound as well. We then used a SUSANA brown cartridge linear stapler performed a [id number]-eulw small bowel to right colon anastomosis. The common enterotomy was closed using a TA 60 stapling device. 3-[address] was [address] to place a crotch stitch. 3-0 silk was also used to oversew the staple lines in Lembert fashion. Anastomosis was widely patent. It appeared to have good blood flow. The anastomosis was then placed back into the abdomen. At this point we changed our gloves. We closed the peritoneum using 0 Vicryl in a running fashion and we closed the fascia using 0- looped PDS in running fashion. We then reinsufflated the abdomen and I reinserted the laparoscope. The anastomosis appeared to be widely patent and with no twisting of the bowel. We thoroughly irrigated the entire abdomen. There was adequate hemostasis. Again no other gross abnormalities were seen. A 10 flat Zeeshan- Pepper drain was placed along the right paracolic gutter and brought out through the left lower quadrant trocar site. It was secured to the skin using 0 Vicryl. The trochars were all removed and the abdomen desufflated. All the wounds were thoroughly irrigated and closed using skin brittaney. Silver dressings ,gauze and tape were applied. The patient was awakened extubated and transferred to recovery in stable condition. My physician assistant manager airside operations was present through the entire case. He was instrumental in running the camera as well as exposure throughout my dissection. He also assisted with the anastomosis wound closure and dressing placement. I attest to the content of the Intraoperative Record and any orders documented therein. Any exceptions are noted below.
[2020-11-28] MEDS: fentaNYL citrate 100 MCG/2 ML VIAL IV PRN ×4 (14:10→14:33)
--- NOTE | 2020-11-28 14:47 | Anesthesiology Progress Note ---
Date of Service November 28, 2020 Anesthesia Post Procedure Vital Signs Vital Signs: Temp Pulse Pulse Pulse Resp BP BP 11/28/20 14:40 87 22 139/87 11/28/20 14:30 88 24 127/91 11/28/20 14:20 96 H 24 123/97 11/28/20 14:10 91 H 24 129/92 11/28/20 14:04 97.2 F L 89 22 135/86 11/28/20 11:39 89 24 11/28/20 11:12 98.1 F 93 H 22 131/85 11/28/20 08:07 97.5 F L 93 H 18 119/8 L 11/28/20 03:04 97.5 F L 87 22 115/79 11/27/20 23:44 97.7 F 80 22 102/61 11/27/20 22:20 83 11/27/20 19:40 97.3 F L 96 H 24 121/82 11/27/20 15:34 97.7 F 96 H 20 110/74 Pulse Ox 11/28/20 14:40 100 11/28/20 14:30 99 11/28/20 14:20 95 11/28/20 14:10 100 11/28/20 14:04 96 11/28/20 11:39 100 11/28/20 11:12 100 11/28/20 08:07 91 11/28/20 03:04 91 11/27/20 23:44 93 11/27/20 22:20 11/27/20 19:40 93 11/27/20 15:34 93 Pain Intensity Generalized: Pain Intensity: 10 Abdomen: Pain Intensity: 8 Transfer of Care Handoff Completed per policy Notes Mental Status: alert / awake / arousable and participated in evaluation Patient Amnestic to Procedure: Yes Nausea / Vomiting: adequately controlled Pain: adequately controlled Airway Patency, RR, SpO2: stable & adequate BP & HR: stable & adequate Hydration State: stable & adequate Anesthetic Complications: no major complications apparent and Pt Satisfied with anesthetic care
[2020-11-28] MEDS: LACTATED RINGER'S 1,000 ML IV SCH ×2 (15:22→20:28)
--- NOTE | 2020-11-28 16:46 | Hospitalist Progress Note ---
Date of Service November 28, 2020 Assessment & Plan (1) Anemia: Matty Smiley is a 89-year-old male with past medical history significant for A. fib, diastolic CHF, prior CVA, frequent falls, known AAA, CKD stage III, and COPD; who presented to ER earlier today for concerns of low blood pressure. 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 Upper endoscopy shows hiatal hernia without evidence of bleeding source Patient agreement to have evaluation by surgery for appendiceal mass. Pathology is pending CT scan of his chest will be undertaken to further evaluate for metastatic disease Regarding his iron deficiency patient will receive a dose of Venofer Appendiceal mass seen on colonoscopy. 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 Laparoscopic Ileocecectomy Surgeon: Wesley Saleem preprocedure pathology showed tubulovillous adenoma (2) SHAY (acute kidney injury): Acute Kidney Injury: Resolved -Cr 1.77 on admission -likely 2/2 anemia and hypotension with poor renal perfusion (3) Multiple rib fractures: Falls:Multiple Rib Fractures: right side, ribs 6 and 7 and L1 transverse process fracture -Incidentally noted on CT scan -patient recently admitted to hospital in [place] for this following recent fall Pain controlled with Ultram 50mg q4 PRN, Tylenol PRN -concerns regarding patient's safety given numerous falls, rib fractures possible sacral fracture. Family does not want the patient to go home however the patient adamantly does not want to go to any rehab or supportive environment -PT/OT consulted (4) Atrial fibrillation, permanent: Atrial Fibrillation:rate controlled low dose metoprolol -discontinue Eliquis in the setting of numerous falls, and anemia (5) History of CVA (cerebrovascular accident): Resume aspirin postoperatively once hemostasis is achieved (6) Hyperlipidemia: Remains on atorvastatin (7) Diastolic CHF: Patient not having much issues with volume however we will continue his beta-josefina as treatment of his chronic diastolic heart failure (8) DVT prophylaxis: Patient is a DNR/DNI. SCDs were used postoperatively then returning anticoagulation with first chemoprophylaxis for DVT prevention and then consideration of anticoagulation for his atrial fibrillation once we are sure he has no further anemia Admission and Anticipated Discharge Date Admission Date: November 22, 2020 Subjective Patient was seen both preoperatively and postoperatively. He no complaints preoperatively postoperatively he was [place] after coming from the PACU. Surgical report was favorable mass was removed without incident Review of Systems Review of Systems: Mild distress and fatigue no headache, no visual changes no speech or swallowing issues no chest pain, pressure or palpitations no shortness of breath, cough or wheezes Preoperatively he had no abdominal pain, nausea or vomiting, diarrhea or constipation no dysuria, hematuria or frequency no focal joint pain or swelling no back pain, CVA tenderness or radicular pain no bruising, bleeding or rashes no focal signs of weakness or numbness or altered sensation no complaints of anxiety or depression.. Physical Exam Physical Exam: The patient appeared chronically ill and slightly forgetful/demented Vital signs as documented. Head exam is normocephalic atraumatic Neck is without JVD, thyromegaly, or carotid bruits. Lungs are poor air movement no focal loss of breath sounds Cardiac exam, sounds regular in rate controlled Abdominal exam reveals normal bowel sounds, soft epigastric discomfort Extremities are nonedematous and both pedal pulses are present Neurologic exam is alert and oriented x3 but at times gets confused, no focal loss of strength or sensation Skin is with open areas especially his left elbow Psychologically is with concerns for some memory impairment Results & Data Results & Data ([facility]) Vital Signs (Past 12 Hours) Vital Signs Temp Pulse Pulse Resp BP BP Pulse Ox 11/28/20 15:28 97.3 F L 86 22 130/87 94 11/28/20 14:58 91 H 24 127/83 97 11/28/20 14:50 97.2 F L 93 H 24 131/89 97 11/28/20 14:40 87 22 139/87 100 11/28/20 14:30 88 24 127/91 99 11/28/20 14:20 96 H 24 123/97 95 11/28/20 14:10 91 H 24 129/92 100 11/28/20 14:04 97.2 F L 89 22 135/86 96 11/28/20 11:39 89 24 100 11/28/20 11:12 98.1 F 93 H 22 131/85 100 11/28/20 08:07 97.5 F L 93 H 18 119/8 L 91 PG Care Time/CCT Total # of Minutes Spent Total Time Spent with Patient: Total time spent is greater than 50% in coordination of care (as documented) at patient's floor/unit and/or counseling patient: Coding Level of Care Code 43038 Subseq Hosp Care Lvl 3 Diagnoses Anemia D64.9 Anemia type: unspecified type SHAY (acute kidney injury) N17.9 Multiple rib fractures S22.41XA Encounter type: initial encounter Fracture type: closed Laterality: right Atrial fibrillation, permanent I48.21 History of CVA (cerebrovascular accident) Z86.73 Hyperlipidemia E78.5 Diastolic CHF I50.32 Heart failure chronicity: chronic DVT prophylaxis Z29.9 (1) Anemia Anemia type: unspecified type Qualified Code(s): D64.9 - Anemia, unspecified (2) Multiple rib fractures Encounter type: initial encounter Fracture type: closed Laterality: right Qualified Code(s): S22.41XA - Multiple fractures of ribs, right side, initial encounter for closed fracture (3) Diastolic CHF Heart failure chronicity: chronic Qualified Code(s): I50.32 - Chronic diastolic (congestive) heart failure
[2020-11-28] MEDS: PANTOprazole 40 MG in SYRINGE 0 ML IV SCH (23:12)
[2020-11-28] MEDS: METOPROLOL TARTRATE 1 MG/ML VIAL IV SCH (23:12)
[2020-11-29] MEDS: MoRPHine SULFATE 2 MG/ML CARP IV PRN ×4 (03:31→21:02)
[2020-11-29] MEDS: ONDANSETRON INJ 2 MG/ML 2 ML VIAL IV PRN (03:36)
[2020-11-29] MEDS: LACTATED RINGER'S 1,000 ML IV SCH (06:09)
[2020-11-29] MEDS: METOPROLOL TARTRATE 1 MG/ML VIAL IV SCH (06:20)
[2020-11-29 07:17] LABS: BUN Creatinine Ratio 21.5 (10-20); Calcium 7.5 mg/dl (8.5-10.1); Creatinine Clr Calc Pharmacy 53.4 ml/min; Est GFR (African American) 70.6 ml/min
[2020-11-29 07:25] LABS: Basophils # (auto) 0.01 K/uL (0-0.2); Basophils % (auto) 0.1 %; Eosinophils # (auto) 0.01 K/uL (0-0.5); Eosinophils % (auto) 0.1 %; Hematocrit (blood only) 28.2 % (42-52); Hemoglobin 8.2 g/dL (14.0-18.0); Immature Granulocytes # (auto) 0.03 K/uL (0.00-0.02); Immature Granulocytes % (auto) 0.2 %; Lymphocytes # (auto) 0.95 K/uL (1.2-3.4); Lymphocytes % (auto) 7.7 %; Mean Corpuscular Hemoglobin 26.9 pg (25-34); Mean Corpuscular Hgb Conc 29.1 g/dL (32-36); Mean Corpuscular Volume 92.5 fL (80-100); Mean Platelet Volume 9.7 fL (7.4-10.4); Monocytes # (auto) 2.07 K/uL (0.11-0.59); Monocytes % (auto) 16.8 %; Neutrophils # (auto) 9.28 K/uL (1.4-6.5); Neutrophils % (auto) 75.1 %; Platelet Count 219 K/uL (130-400); RDW Coefficient of Variation 18.3 % (11.5-14.5); RDW Standard Deviation 61.2 fL (36.4-46.3); Red Blood Count 3.05 M/uL (4.7-6.1); White Blood Count 12.35 K/uL (4.8-10.8)
[2020-11-29 08:02] LABS: Anisocytosis Present; Ovalocytes 1+; Polychromasia 1+
[2020-11-29] MEDS ORDERED: SODIUM CHLORIDE 0.9% 500 ML IV SCH (08:15)
--- NOTE | 2020-11-29 08:26 | Surgery Progress Note ---
Date of Service November 29, 2020 Assessment & Plan (1) Cecum mass: POD 1 ileocecectomy start on clears K+ 5.0, changed to NSS UOP marginal, cont putnam for now dressing change tomorrow as above. pt seen. doing ok. will start some clears can restart his eliquis tomorrow. RIP serous. Admission and Anticipated Discharge Date Admission Date: November 22, 2020 Subjective thirsty, minimal pain, no nausea Physical Exam Gastrointestinal (Abdomen): Inspection/Auscultation: + abdomen distended (minimal), + abdominal surgical incision (dressing intact) and + abdominal surgical drain present (70 cc overnight) Percussion/Palpation: abdomen soft UOP 150 overnight Results & Data ([facility]) Vital Signs (Past 12 Hours) Vital Signs Temp Pulse Pulse Resp BP BP Pulse Ox 11/29/20 07:21 36.8 C 84 19 97/54 L 90 11/29/20 06:41 91 H 11/29/20 05:17 37.1 C 92 H 24 102/76 99 11/28/20 23:51 37.0 C 90 22 105/64 93 11/28/20 23:12 90 109/67 PG Care Time/CCT Total # of Minutes Spent Total Time Spent with Patient: Total time spent is greater than 50% in coordination of care (as documented) at patient's floor/unit and/or counseling patient: Coding Level of Care Code None Diagnoses Cecum mass K63.89
--- NOTE | 2020-11-29 08:41 | Hospitalist Progress Note ---
Date of Service November 29, 2020 Assessment & Plan (1) Anemia: Matty Smiley is a 89-year-old male with past medical history significant for A. fib, diastolic CHF, prior CVA, frequent falls, known AAA, CKD stage III, and COPD; who presented to ER earlier today for concerns of low blood pressure. 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 Upper endoscopy shows hiatal hernia without evidence of bleeding source Patient agreement to have evaluation by surgery for appendiceal mass. Pathology is pending CT scan of his chest will be undertaken to further evaluate for metastatic disease Regarding his iron deficiency patient will receive a dose of Venofer Appendiceal mass seen on colonoscopy. 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 Laparoscopic Ileocecectomy Surgeon: Wesley Saleem preprocedure pathology showed tubulovillous adenoma (2) SHAY (acute kidney injury): Acute Kidney Injury: Resolved -Cr 1.77 on admission -likely 2/2 anemia and hypotension with poor renal perfusion (3) Multiple rib fractures: Falls:Multiple Rib Fractures: right side, ribs 6 and 7 and L1 transverse process fracture -Incidentally noted on CT scan -patient recently admitted to hospital in [place] for this following recent fall Pain controlled with Ultram 50mg q4 PRN, Tylenol PRN -concerns regarding patient's safety given numerous falls, rib fractures possible sacral fracture. Family does not want the patient to go home however the patient adamantly does not want to go to any rehab or supportive environment -PT/OT consulted (4) Atrial fibrillation, permanent: Atrial Fibrillation:rate controlled low dose metoprolol -discontinue Eliquis in the setting of numerous falls, and anemia will have on post op chemoprophylaxis once anemia is stable (5) History of CVA (cerebrovascular accident): Resume aspirin postoperatively once hemostasis is achieved (6) Hyperlipidemia: Remains on atorvastatin (7) Diastolic CHF: Patient not having much issues with volume however we will continue his beta-josefina as treatment of his chronic diastolic heart failure (8) DVT prophylaxis: Patient is a DNR/DNI. SCDs were used postoperatively then returning anticoagulation with first chemoprophylaxis for DVT prevention and then consideration of anticoagulation for his atrial fibrillation once we are sure he has no further anemia Admission and Anticipated Discharge Date Admission Date: November 22, 2020 Subjective Pt is sedate but stable, does have abdominal pain, still wants to go home, but doubt will achieve his time line Review of Systems Review of Systems: Mild distress and fatigue no headache, no visual changes no speech or swallowing issues no chest pain, pressure or palpitations no shortness of breath, cough or wheezes diffuse abdominal pain, no nausea or vomiting, no bm or flatus no dysuria, hematuria or frequency no focal joint pain or swelling no back pain, CVA tenderness or radicular pain no bruising, bleeding or rashes no focal signs of weakness or numbness or altered sensation no complaints of anxiety or depression.. Physical Exam Physical Exam: The patient appeared chronically ill and slightly forgetful/demented Vital signs as documented. Head exam is normocephalic atraumatic Neck is without JVD, thyromegaly, or carotid bruits. Lungs are poor air movement no focal loss of breath sounds Cardiac exam, sounds regular in rate controlled Abdominal exam reveals hypoactive bowel sounds, guarding no rebound Extremities are nonedematous and both pedal pulses are present Neurologic exam is alert and oriented x3 but at times gets confused, no focal loss of strength or sensation Skin is with open areas especially his left elbow Psychologically is with concerns for some memory impairment Results & Data Results & Data ([facility]) Vital Signs (Past 12 Hours) Vital Signs Temp Pulse Pulse Resp BP BP Pulse Ox 11/29/20 07:21 98.2 F 84 19 97/54 L 90 11/29/20 06:41 91 H 11/29/20 05:17 98.8 F 92 H 24 102/76 99 11/28/20 23:51 98.6 F 90 22 105/64 93 11/28/20 23:12 90 109/67 PG Care Time/CCT Total # of Minutes Spent Total Time Spent with Patient: Total time spent is greater than 50% in coordination of care (as documented) at patient's floor/unit and/or counseling patient: Coding Level of Care Code 33069 Subseq Hosp Care Lvl 2 Diagnoses Anemia D64.9 Anemia type: unspecified type SHAY (acute kidney injury) N17.9 Multiple rib fractures S22.41XA Encounter type: initial encounter Fracture type: closed Laterality: right Atrial fibrillation, permanent I48.21 History of CVA (cerebrovascular accident) Z86.73 Hyperlipidemia E78.5 Diastolic CHF I50.32 Heart failure chronicity: chronic DVT prophylaxis Z29.9 (1) Diastolic CHF Heart failure chronicity: chronic Qualified Code(s): I50.32 - Chronic diastolic (congestive) heart failure (2) Multiple rib fractures Encounter type: initial encounter Fracture type: closed Laterality: right Qualified Code(s): S22.41XA - Multiple fractures of ribs, right side, initial encounter for closed fracture (3) Anemia Anemia type: unspecified type Qualified Code(s): D64.9 - Anemia, unspecified
[2020-11-29] MEDS: PANTOprazole 40 MG in SYRINGE 0 ML IV SCH ×2 (09:32→20:44)
[2020-11-29] MEDS: LIDOCAINE 5% 1 PATCH TD SCH (10:01)
[2020-11-29] MEDS ORDERED: METOPROLOL TARTRATE 1 MG/ML VIAL IV SCH (23:00)
[2020-11-30] MEDS: MoRPHine SULFATE 2 MG/ML CARP IV PRN ×2 (04:59→11:03)
[2020-11-30 05:55] LABS: Basophils # (auto) 0.01 K/uL (0-0.2); Basophils % (auto) 0.1 %; Eosinophils # (auto) 0.03 K/uL (0-0.5); Eosinophils % (auto) 0.4 %; Hematocrit (blood only) 29.1 % (42-52); Hemoglobin 8.2 g/dL (14.0-18.0); Immature Granulocytes # (auto) 0.09 K/uL (0.00-0.02); Immature Granulocytes % (auto) 1.1 %; Lymphocytes % (auto) 12.1 %; Mean Corpuscular Hemoglobin 26.5 pg (25-34); Mean Corpuscular Hgb Conc 28.2 g/dL (32-36); Mean Corpuscular Volume 93.9 fL (80-100); Mean Platelet Volume 9.7 fL (7.4-10.4); Monocytes # (auto) 1.24 K/uL (0.11-0.59); Neutrophils % (auto) 71.3 %; Nucleated RBC # (auto) 0.04 K/uL (0-0); Nucleated RBC % (auto) 0.5 %; Platelet Count 211 K/uL (130-400); RDW Coefficient of Variation 18.9 % (11.5-14.5); RDW Standard Deviation 64.4 fL (36.4-46.3); White Blood Count 8.27 K/uL (4.8-10.8)
[2020-11-30 06:33] LABS: Calcium 7.5 mg/dl (8.5-10.1); Creatinine Clr Calc Pharmacy 53.9 ml/min; Est GFR (African American) 71.5 ml/min; Est GFR (Non-African American) 61.7 ml/min
[2020-11-30] MEDS ORDERED: FUROSEMIDE 40 MG in SYRINGE 0 ML IV ONE (07:50)
--- NOTE | 2020-11-30 07:52 | Hospitalist Progress Note ---
Date of Service November 30, 2020 Assessment & Plan (1) Anemia: Matty Smiley is a 89-year-old male with past medical history significant for A. fib, diastolic CHF, prior CVA, frequent falls, known AAA, CKD stage III, and COPD; who presented to ER earlier today for concerns of low blood pressure. 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 Upper endoscopy shows hiatal hernia without evidence of bleeding source Patient agreement to have evaluation by surgery for appendiceal mass. Pathology is pending CT scan of his chest will be undertaken to further evaluate for metastatic disease Regarding his iron deficiency patient will receive a dose of Venofer Appendiceal mass seen on colonoscopy. 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 Laparoscopic Ileocecectomy Surgeon: Wesley Saleem preprocedure pathology showed tubulovillous adenoma post op ileus and pain this weekend, will need iv tylenol to try to avoid opiates to reduce bowel function slowing (2) SHAY (acute kidney injury): Acute Kidney Injury: Resolved -Cr 1.77 on admission -likely 2/2 anemia and hypotension with poor renal perfusion (3) Multiple rib fractures: Falls:Multiple Rib Fractures: right side, ribs 6 and 7 and L1 transverse process fracture -Incidentally noted on CT scan -patient recently admitted to hospital in [place] for this following recent fall Pain controlled with Ultram 50mg q4 PRN, Tylenol PRN -concerns regarding patient's safety given numerous falls, rib fractures possible sacral fracture. Family does not want the patient to go home however the patient adamantly does not want to go to any rehab or supportive environment -PT/OT consulted (4) Atrial fibrillation, permanent: Atrial Fibrillation:rate controlled low dose metoprolol, since now not taking po well will transiton to iv -discontinue Eliquis in the setting of numerous falls, and anemia will have on post op chemoprophylaxis once anemia is stable (5) History of CVA (cerebrovascular accident): Resume aspirin postoperatively once hemostasis is achieved (6) Hyperlipidemia: Remains on atorvastatin (7) Diastolic CHF: Patient not having much issues with volume however we will continue his beta-josefina as treatment of his chronic diastolic heart failure pt has moderated MR on Echo from 10/16 is with hypoxic respiratory distress 11/30, will give one dose lasix 40 mg iv as had increased need for oxygen (8) DVT prophylaxis: Patient is a DNR/DNI. SCDs were used postoperatively then returning anticoagulation with first chemoprophylaxis for DVT prevention and then consideration of anticoagulation for his atrial fibrillation once we are sure he has no further anemia Admission and Anticipated Discharge Date Admission Date: November 22, 2020 Subjective Patient is resting. When palpating his abdomen he has moderate pain. RN says patient has a low appetite. Review of Systems Review of Systems: Mild distress and fatigue no headache, no visual changes no speech or swallowing issues no chest pain, pressure or palpitations no shortness of breath, cough or wheezes continues with diffuse abdominal pain, no nausea or vomiting, no bm or flatus no dysuria, hematuria or frequency no focal joint pain or swelling no back pain, CVA tenderness or radicular pain no bruising, bleeding or rashes no focal signs of weakness or numbness or altered sensation no complaints of anxiety or depression.. Cardiovascular: + chest pain (right sided, rib pain) Musculoskeletal: + joint pain (left hip and thigh) Physical Exam Physical Exam: The patient appeared chronically ill and slightly forgetful/demented Vital signs as documented. Head exam is normocephalic atraumatic Neck is without JVD, thyromegaly, or carotid bruits. Lungs are poor air movement no focal loss of breath sounds Cardiac exam, sounds regular in rate controlled Abdominal exam reveals hypoactive bowel sounds, guarding no rebound moderate pain Extremities are nonedematous and both pedal pulses are present Neurologic exam is alert and oriented x3 but at times gets confused, no focal loss of strength or sensation Skin is with open areas especially his left elbow Psychologically is with concerns for some memory impairment Results & Data Results & Data ([facility]) Vital Signs (Past 12 Hours) Vital Signs Temp Pulse Pulse Resp BP Pulse Ox 11/30/20 07:00 97.9 F 89 18 112/63 97 11/30/20 03:56 98.8 F 113 H 21 98/63 L 97 11/30/20 00:15 95 H 11/29/20 23:07 98.5 F 94 H 21 109/66 98 PG Care Time/CCT Total # of Minutes Spent Total Time Spent with Patient: Total time spent is greater than 50% in coordination of care (as documented) at patient's floor/unit and/or counseling patient: Coding Level of Care Code 52258 Subseq Hosp Care Lvl 3 Diagnoses Anemia D64.9 Anemia type: unspecified type SHAY (acute kidney injury) N17.9 Multiple rib fractures S22.41XA Encounter type: initial encounter Fracture type: closed Laterality: right Atrial fibrillation, permanent I48.21 History of CVA (cerebrovascular accident) Z86.73 Hyperlipidemia E78.5 Diastolic CHF I50.32 Heart failure chronicity: chronic DVT prophylaxis Z29.9 (1) Diastolic CHF Heart failure chronicity: chronic Qualified Code(s): I50.32 - Chronic diastolic (congestive) heart failure (2) Multiple rib fractures Encounter type: initial encounter Fracture type: closed Laterality: right Qualified Code(s): S22.41XA - Multiple fractures of ribs, right side, initial encounter for closed fracture (3) Anemia Anemia type: unspecified type Qualified Code(s): D64.9 - Anemia, unspecified
[2020-11-30] MEDS ORDERED: FUROSEMIDE 40 MG/4 ML VIAL IV ONE (08:00)
[2020-11-30] MEDS: LIDOCAINE 5% 1 PATCH TD SCH (08:25)
[2020-11-30] MEDS: PANTOprazole 40 MG in SYRINGE 0 ML IV SCH ×2 (08:25→21:41)
[2020-11-30] MEDS: LACTATED RINGER'S 1,000 ML IV SCH (13:35)
--- NOTE | 2020-11-30 13:35 | Surgery Progress Note ---
Date of Service November 30, 2020 Assessment & Plan (1) Cecum mass: POD 1 ileocecectomy WBC 8, Hbg stable at 8.2 Continue on clears for now Continue to hold eliquis today, may consider resuming tomorrow Will start patient on some maintenance IVF since he has low appetite and marginal UOP. Continue putnam for now Encourage out of bed/ambulation and pulmonary toilet as able Pt seen and examined with Dr. Hemphill Admission and Anticipated Discharge Date Admission Date: November 22, 2020 Subjective Patient is resting. When palpating his abdomen he endorses pain. RN says patient has a low appetite. Physical Exam Physical Exam: sleeping Gastrointestinal (Abdomen): Inspection/Auscultation: + abdominal surgical incision (c/d/i) and + abdominal surgical drain present Percussion/Palpation: + abdomen tender Results & Data ([facility]) Vital Signs (Past 12 Hours) Vital Signs Temp Pulse Resp BP Pulse Ox 11/30/20 12:00 37.0 C 104 H 24 110/63 93 11/30/20 07:00 36.6 C 89 18 112/63 97 11/30/20 03:56 37.1 C 113 H 21 98/63 L 97 PG Care Time/CCT Total # of Minutes Spent Total Time Spent with Patient: Total time spent is greater than 50% in coordination of care (as documented) at patient's floor/unit and/or counseling patient: Coding Level of Care Code None Diagnoses Cecum mass K63.89
[2020-11-30] MEDS: ACETAMINOPHEN 1000 MG/100 ML IV IV PRN ×2 (16:47→23:34)
[2020-11-30] MEDS: METOPROLOL TARTRATE 1 MG/ML VIAL IV SCH (17:37)
[2020-12-01] MEDS: LACTATED RINGER'S 1,000 ML IV SCH (03:18)
[2020-12-01] MEDS: MoRPHine SULFATE 2 MG/ML CARP IV PRN ×6 (03:19→22:09)
[2020-12-01] MEDS: METOPROLOL TARTRATE 1 MG/ML VIAL IV SCH ×5 (06:08→23:14)
[2020-12-01 06:38] LABS: Basophils # (auto) 0.01 K/uL (0-0.2); Basophils % (auto) 0.1 %; Eosinophils # (auto) 0.15 K/uL (0-0.5); Eosinophils % (auto) 2.2 %; Hematocrit (blood only) 26.5 % (42-52); Hemoglobin 7.7 g/dL (14.0-18.0); Immature Granulocytes # (auto) 0.02 K/uL (0.00-0.02); Immature Granulocytes % (auto) 0.3 %; Mean Corpuscular Hemoglobin 26.8 pg (25-34); Mean Corpuscular Hgb Conc 29.1 g/dL (32-36); Mean Corpuscular Volume 92.3 fL (80-100); Mean Platelet Volume 9.9 fL (7.4-10.4); Monocytes # (auto) 1.07 K/uL (0.11-0.59); Monocytes % (auto) 15.5 %; Neutrophils # (auto) 4.75 K/uL (1.4-6.5); Neutrophils % (auto) 68.9 %; Nucleated RBC # (auto) 0.03 K/uL (0-0); Nucleated RBC % (auto) 0.4 %; Platelet Count 179 K/uL (130-400); RDW Coefficient of Variation 18.6 % (11.5-14.5); RDW Standard Deviation 62.3 fL (36.4-46.3); Red Blood Count 2.87 M/uL (4.7-6.1)
[2020-12-01 07:00] LABS: Polychromasia 1+
[2020-12-01 07:14] LABS: BUN Creatinine Ratio 24.7 (10-20); Calcium 7.6 mg/dl (8.5-10.1); Creatinine Clr Calc Pharmacy 51.5 ml/min; Est GFR (African American) 67.6 ml/min; Est GFR (Non-African American) 58.3 ml/min; Potassium 4.4 mmol/L (3.5-5.1)
[2020-12-01] MEDS ORDERED: SODIUM CHLORIDE 0.9% 250 ML IV PRN ×2 (07:14→07:32)
--- NOTE | 2020-12-01 07:17 | Hospitalist Progress Note ---
Date of Service December 01, 2020 Assessment & Plan (1) Anemia: Matty Smiley is a 89-year-old male with past medical history significant for A. fib, diastolic CHF, prior CVA, frequent falls, known AAA, CKD stage III, and COPD; who presented to ER earlier today for concerns of low blood pressure. 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 Upper endoscopy shows hiatal hernia without evidence of bleeding source Patient agreement to have evaluation by surgery for appendiceal mass. Pathology is pending CT scan of his chest will be undertaken to further evaluate for metastatic disease Regarding his iron deficiency patient will receive a dose of Venofer Appendiceal mass seen on colonoscopy. 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 Laparoscopic Ileocecectomy Surgeon: Wesley Saleem preprocedure pathology showed tubulovillous adenoma post op ileus and pain this weekend, iv tylenol to try to avoid opiates to reduce bowel function slowing (2) SHAY (acute kidney injury): Acute Kidney Injury: Resolved -Cr 1.77 on admission -likely 2/2 anemia and hypotension with poor renal perfusion (3) Multiple rib fractures: Falls:Multiple Rib Fractures: right side, ribs 6 and 7 and L1 transverse process fracture -Incidentally noted on CT scan -patient recently admitted to hospital in [place] for this following recent fall Pain controlled with Ultram 50mg q4 PRN, Tylenol PRN -concerns regarding patient's safety given numerous falls, rib fractures possible sacral fracture. Family does not want the patient to go home however the patient adamantly does not want to go to any rehab or supportive environment -PT/OT consulted, family and patient remain at odds regarding his final disposition (4) Atrial fibrillation, permanent: Atrial Fibrillation:rate controlled low dose metoprolol, since now not taking po well will transiton to iv -discontinue Eliquis in the setting of numerous falls, and anemia will have on post op chemoprophylaxis once anemia is stable (5) History of CVA (cerebrovascular accident): Resume aspirin postoperatively once hemostasis is achieved (6) Hyperlipidemia: Remains on atorvastatin (7) Diastolic CHF: Patient not having much issues with volume however we will continue his beta-josefina as treatment of his chronic diastolic heart failure pt has moderated MR on Echo from 10/16 is with hypoxic respiratory distress 11/30, given lasix 40 mg iv (8) DVT prophylaxis: Patient is a DNR/DNI. SCDs were used postoperatively then returning anticoagulation with first chemopr ophylaxis for DVT prevention and then consideration of anticoagulation for his atrial fibrillation once we are sure he has no further anemia Admission and Anticipated Discharge Date Admission Date: November 22, 2020 Subjective Patient has persistent abdominal pain continually asks about wanting to go home. RIP drain is draining quite briskly a yellow liquid. Tested for creatinine which is negative suggestive this is likely postinflammatory ascitic abdominal fluid Review of Systems Review of Systems: Mild distress and fatigue no headache, no visual changes no speech or swallowing issues no chest pain, pressure or palpitations no shortness of breath, cough or wheezes continues with diffuse abdominal pain, RIP filling quite frequently, no nausea or vomiting, no bm or flatus no dysuria, hematuria or frequency no focal joint pain or swelling no back pain, CVA tenderness or radicular pain no bruising, bleeding or rashes no focal signs of weakness or numbness or altered sensation no complaints of anxiety or depression.. Physical Exam Physical Exam: The patient appeared chronically ill and slightly forgetful/demented Vital signs as documented. Head exam is normocephalic atraumatic Neck is without JVD, thyromegaly, or carotid bruits. Lungs are poor air movement no focal loss of breath sounds Cardiac exam, sounds regular in rate controlled Abdominal exam reveals hypoactive bowel sounds, guarding no rebound moderate pain Extremities are nonedematous and both pedal pulses are present Neurologic exam is alert and oriented x3 but at times gets confused, no focal loss of strength or sensation Skin is with open areas especially his left elbow Psychologically is with concerns for some memory impairment Results & Data Results & Data ([facility]) Vital Signs (Past 12 Hours) Vital Signs Temp Pulse Pulse Pulse Resp BP BP 12/01/20 07:12 98.1 F 75 17 96/62 L 12/01/20 06:08 85 108/57 L 12/01/20 06:07 85 108/57 L 12/01/20 03:51 98.2 F 85 20 98/66 L 12/01/20 00:00 90 96/62 L 11/30/20 23:49 90 11/30/20 23:23 98.6 F 81 20 96/62 L 11/30/20 19:21 98.1 F 86 21 85/52 L Pulse Ox 12/01/20 07:12 100 12/01/20 06:08 12/01/20 06:07 12/01/20 03:51 92 12/01/20 00:00 11/30/20 23:49 11/30/20 23:23 95 11/30/20 19:21 100 PG Care Time/CCT Total # of Minutes Spent Total Time Spent with Patient: Total time spent is greater than 50% in coordination of care (as documented) at patient's floor/unit and/or counseling patient: Coding Level of Care Code 81882 Subseq Hosp Care Lvl 3 Diagnoses Anemia D64.9 Anemia type: unspecified type SHAY (acute kidney injury) N17.9 Multiple rib fractures S22.41XA Encounter type: initial encounter Fracture type: closed Laterality: right Atrial fibrillation, permanent I48.21 History of CVA (cerebrovascular accident) Z86.73 Hyperlipidemia E78.5 Diastolic CHF I50.32 Heart failure chronicity: chronic DVT prophylaxis Z29.9 (1) Diastolic CHF Heart failure chronicity: chronic Qualified Code(s): I50.32 - Chronic diastolic (congestive) heart failure (2) Multiple rib fractures Encounter type: initial encounter Fracture type: closed Laterality: right Qualified Code(s): S22.41XA - Multiple fractures of ribs, right side, initial encounter for closed fracture (3) Anemia Anemia type: unspecified type Qualified Code(s): D64.9 - Anemia, unspecified
--- NOTE | 2020-12-01 08:12 | Surgery Progress Note ---
Date of Service December 01, 2020 Assessment & Plan (1) Cecum mass: Seen with Dr. Hemphill advance diet OOB Hgb 7.7, hold on Eliquis Admission and Anticipated Discharge Date Admission Date: November 22, 2020 Supervising Physician Co-Signing Physician Notes Mentally clear this morning overall feels much better very demanding once to sit up in a chair once more to eat The abdomen is benign incision healing well Kirk drainage minimal Path pending Subjective hungry, tolerating clears, wants OOB Physical Exam Gastrointestinal (Abdomen): Inspection/Auscultation: + abdominal surgical drain present (250 cc serous); abdomen not distended Percussion/Palpation: abdomen soft Results & Data ([facility]) Vital Signs (Past 12 Hours) Vital Signs Temp Pulse Pulse Pulse Resp BP BP 12/01/20 07:12 36.7 C 75 17 96/62 L 12/01/20 06:08 85 108/57 L 12/01/20 06:07 85 108/57 L 12/01/20 03:51 36.8 C 85 20 98/66 L 12/01/20 00:00 90 96/62 L 11/30/20 23:49 90 11/30/20 23:23 37.0 C 81 20 96/62 L Pulse Ox 12/01/20 07:12 100 12/01/20 06:08 12/01/20 06:07 12/01/20 03:51 92 12/01/20 00:00 11/30/20 23:49 11/30/20 23:23 95 PG Care Time/CCT Total # of Minutes Spent Total Time Spent with Patient: Total time spent is greater than 50% in coordination of care (as documented) at patient's floor/unit and/or counseling patient: Coding Level of Care Code 42703 Subseq Hosp Care Lvl 3 Diagnoses Cecum mass K63.89
[2020-12-01] MEDS: LIDOCAINE 5% 1 PATCH TD SCH (08:54)
[2020-12-01] MEDS: PANTOprazole 40 MG in SYRINGE 0 ML IV SCH ×2 (08:54→20:23)
[2020-12-01] MEDS: ACETAMINOPHEN 325 MG TAB PO PRN (13:22)
--- NOTE | 2020-12-01 15:06 | XRay Report ---
KUB CLINICAL HISTORY: eval for ileus COMPARISON STUDY: CT of the abdomen and pelvis November 22, 2020. FINDINGS: Note is made of skin brittaney and a surgical drain. There is mild gaseous distention of smal l and large bowel. No unexpected radiopaque foreign bodies are identified. Surgical staple line withi n the right mid abdomen is noted. IMPRESSION: Mild gaseous distention of small and large bowel which favors a postoperative ileus. ACT 112: Negative or not required by law. Electronically signed by: Yuan Augustine M.D. 12/01/2020 3:05 PM
--- NOTE | 2020-12-01 19:24 | CT Scan Report ---
CT SCAN OF THE ABDOMEN AND PELVIS WITHOUT CONTRAST CLINICAL HISTORY: eval for ureteral leaking COMPARISON STUDY: November 22, 2020 TECHNIQUE: CT scan of the abdomen and pelvis was performed from the lung bases to the proximal femurs . Images are reviewed in the axial, sagittal, and coronal planes. IV contrast was not administered fo r this examination. A dose lowering technique was utilized adhering to the principles of ALARA. CT DOSE: 1061.10 mGycm FINDINGS: Lower chest: Moderate bilateral pleural effusion and compressive atelectasis at the dependent portion s of bilateral lower lobes slightly worsened since prior study. Four-chamber cardiomegaly. Calcificat ions of carotid arteries and aortic valve are again seen. Liver: The unenhanced liver is normal in size, contour, and attenuation. There is no intrahepatic dre iary ductal dilatation. Gallbladder: Gallbladder is mildly dilated. Small calcifications at dependent portions of the gallbla dder are again seen. Spleen: Normal in size and attenuation. Pancreas: Unremarkable. Adrenal glands: Unremarkable. Kidneys: The unenhanced kidneys are normal in size without hydronephrosis. There is no contour deform ing renal mass lesion. No renal calculi are identified. Redemonstration of the hypoattenuating lesion within slightly atrophic right renal cortex is unchange d since recent prior study and show minimal wall calcifications. Bowel: Large hiatal hernia is again seen. Bowel loops are nondilated. Postoperative changes are seen within right upper quadrant. Percutaneous abdominal catheter is seen with entrance through the left l ower abdominal wall. Peritoneum: Small amount of free air is seen between the right lobe of the liver and the right latera l chest wall as well as within right upper abdomen which could be related to recent surgery. Interval development of diffuse mesenteric and subcutaneous edema. Bilateral fat-containing inguinal hernias are seen. Small amount of gas collection is seen within the right inguinal hernia (3/450). Vasculature: Aorta is tortuous and calcified. Redemonstration of large fusiform abdominal aortic aneu rysm measuring 6.7 x 4.8 cm on axial dimension (3/160) which is not significantly changed since recen t prior study. Evaluation of abdominal aorta is limited on this nondedicated nonenhanced exam. Adenopathy: None. Pelvic viscera: Urinary bladder is decompressed with Root balloon within its lumen. Prostate gland i s not well seen, probably surgically absent. Skeletal structures: Osteopenia and degenerative changes of the spine. There is degenerative changes of the spine. IMPRESSION: 1. Interval postsurgical changes within loop of large bowel within the right hemiabdomen. Small amou nt of free intra-abdominal gas is seen as well as percutaneous drainage catheter. 2. Interval worsening of mesenteric edema. Interval development of anasarca. 3. Small amount of free gas is seen within fat-containing right inguinal hernia. 4. Large hiatal hernia. 5. Bilateral pleural effusion associated with atelectasis/infiltrate at bilateral bases. 6. Stable cardiomegaly. 7. Stable abdominal aortic aneurysm. 8. Urinary bladder is decompressed with Root balloon within its lumen. 9. Cholelithiasis. No evidence of cholecystitis. ACT 112: Negative or not required by law. The above report was generated using voice recognition software. It may contain grammatical, syntax o r spelling errors. Electronically signed by: Laila Barros DO 12/01/2020 7:23 PM
[2020-12-01] MEDS: ONDANSETRON INJ 2 MG/ML 2 ML VIAL IV PRN (21:56)
[2020-12-01] MEDS: ACETAMINOPHEN 1000 MG/100 ML IV IV PRN (23:19)
[2020-12-01] MEDS ORDERED: ONDANSETRON INJ 2 MG/ML 2 ML VIAL IV STA (23:59)
[2020-12-01] MEDS ORDERED: ONDANSETRON INJ 2 MG/ML 2 ML VIAL IV PRN (23:59)
--- NOTE | 2020-12-02 00:04 | Communication Note ---
Date of Service: December 02, 2020 Called to bedside by nursing staff following development of increased pain over abdomen, with new onset of vomiting. On my presentation to bedside, Matty elizondo dorsed more complaints of continued pain over his abdomen with persistent nausea despite the Zofran. Additional 4mg of Zofran was given. STAT KUB ordered and re- demonstrated this ended this loops of small and large bowel, this seems to be slightly worse as compared to KUB from the morning of 12/[address] abdomen/pelvis from this afternoon. Decision was made to place an NG tube to further decompress and relieve gaseous distention. Unfortunately difficult time with passage of NG tube attempts by staff ultimately patient denied further attempts at placement of NG tube. Upon returning to bedside later in the morning, patient continued to have gaseous distention with improved pain. On percussion and deep palpation of abdomen, patient relieved some burps that notably seem to alleviate some of his discomfort. Discussed with nursing need for serial abdominal exams, and discussion on if nausea/vomiting were to worsen or represent additional trials of NG tube placement would be necessary. Resident Activity Tracking Resident Involvement: Resident Care Provided Care Provided: Adult Hospital Medicine
[2020-12-02] MEDS: METOPROLOL TARTRATE 1 MG/ML VIAL IV SCH ×3 (05:36→17:28)
[2020-12-02 06:12] LABS: Basophils # (auto) 0.01 K/uL (0-0.2); Basophils % (auto) 0.1 %; Eosinophils # (auto) 0.03 K/uL (0-0.5); Eosinophils % (auto) 0.3 %; Hemoglobin 9.3 g/dL (14.0-18.0); Immature Granulocytes # (auto) 0.02 K/uL (0.00-0.02); Immature Granulocytes % (auto) 0.2 %; Lymphocytes # (auto) 0.21 K/uL (1.2-3.4); Lymphocytes % (auto) 2.4 %; Mean Corpuscular Hemoglobin 26.6 pg (25-34); Mean Corpuscular Volume 88.8 fL (80-100); Mean Platelet Volume 9.8 fL (7.4-10.4); Monocytes # (auto) 1.15 K/uL (0.11-0.59); Neutrophils # (auto) 7.46 K/uL (1.4-6.5); Nucleated RBC # (auto) 0.04 K/uL (0-0); Nucleated RBC % (auto) 0.4 %; Platelet Count 188 K/uL (130-400); RDW Coefficient of Variation 18.3 % (11.5-14.5); RDW Standard Deviation 58.7 fL (36.4-46.3); Red Blood Count 3.49 M/uL (4.7-6.1); White Blood Count 8.88 K/uL (4.8-10.8)
[2020-12-02 06:38] LABS: Albumin Level 2.5 gm/dl (3.4-5.0); BUN Creatinine Ratio 25.9 (10-20); Bilirubin Direct 0.7 mg/dl (0-0.2); Calcium 7.3 mg/dl (8.5-10.1); Est GFR (African American) 74.8 ml/min; Est GFR (Non-African American) 64.6 ml/min; Potassium 4.4 mmol/L (3.5-5.1)
[2020-12-02 06:40] LABS: Bilirubin,Total 1.4 mg/dl (0.2-1); Total Protein 5.1 gm/dl (6.4-8.2)
--- NOTE | 2020-12-02 08:15 | XRay Report ---
KUB HISTORY: Follow up study in a patient with abdominal distention Abdominal distension COMPARISON: CT abdomen and pelvis 12/01/2020 FINDINGS: The surgical brittaney overlie the abdominal wall. Surgical drainage catheter. Persistent air -filled prominent mildly dilated loops of large and small bowel, mildly improved from comparison. The large bowel measures up to approximately 8.2 cm transversely. The small bowel measures up to 3.6 cm. The lateral abdomen is excluded from the [id number]. No urolith. Or pneumoperitoneum [facility] is not definitively seen on today's study. Cardiomegaly with layering pleural effusions. Lo op recorder device. IMPRESSION: Mild improvement of the small and large bowel gaseous distention. Continued follow-up recommended. ACT 112: Negative or not required by law. The above report was generated using voice recognition software. It may contain grammatical, syntax o r spelling errors. Electronically signed by: Moshe Calzada M.D. 12/02/2020 8:13 AM
[2020-12-02] MEDS: MoRPHine SULFATE 2 MG/ML CARP IV PRN ×3 (08:43→21:44)
[2020-12-02] MEDS: ACETAMINOPHEN 1000 MG/100 ML IV IV PRN ×2 (08:43→17:36)
[2020-12-02] MEDS: PANTOprazole 40 MG in SYRINGE 0 ML IV SCH ×2 (08:48→20:25)
[2020-12-02] MEDS: SODIUM CHLORIDE 0.9% 1000ML 1,000 ML IV SCH ×2 (08:48→17:30)
--- NOTE | 2020-12-02 08:50 | Surgery Progress Note ---
Date of Service December 02, 2020 Assessment & Plan (1) Cecum mass: pod 4 emesis.... no sbo or ileus noted on CT scan. ? from hiatal hernia. NGT placed. will monitor. RIP all serous. no leukocytosis or fever. keep npo/ivf. CT reviewed. will monitor closely. Admission and Anticipated Discharge Date Admission Date: November 22, 2020 Subjective per nursing sometime early this am pt had large amount of emesis. pt was complaining earlier of LLQ abdominal pain. NGT was placed and approx 200 cc's of gastric contents obtained. pt currently denies abdominal pain. Physical Exam Physical Exam: appears fatigued. appears comfortable. NGT with approx 200 cc's of thick gastric contents abd: soft. RIP with large amount of serous drainage. incisions look good Results & Data ([facility]) Vital Signs (Past 12 Hours) Vital Signs Temp Pulse Pulse Resp BP BP Pulse Ox 12/02/20 08:00 36.6 C 97 H 20 111/65 12/02/20 05:36 97 H 111/81 12/02/20 03:26 36.8 C 97 H 18 111/62 93 12/02/20 01:54 83 12/01/20 23:19 97 12/01/20 23:14 97 H 128/87 12/01/20 23:08 37.1 C 94 H 17 128/87 97 PG Care Time/CCT Total # of Minutes Spent Total Time Spent with Patient: Total time spent is greater than 50% in coordination of care (as documented) at patient's floor/unit and/or counseling patient: Coding Level of Care Code None Diagnoses Cecum mass K63.89
[2020-12-02] MEDS ORDERED: CHLORASEPTIC 1.4% SOLN 180 ML BTL MT PRN (11:26)
--- NOTE | 2020-12-02 11:30 | Hospitalist Progress Note ---
Date of Service December 02, 2020 Assessment & Plan (1) Cecum mass: s/p right hemicolectomy had NG tube placed again this morning for distension and discomfort, now better management per general surgery NPO no pain, WBC and Hb stable (2) Anemia: Matty Smiley is a 89-year-old male with past medical history significant for A. fib, diastolic CHF, prior CVA, frequent falls, known AAA, CKD stage III, and COPD; who presented to ER earlier today for concerns of low blood pressure. 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 Upper endoscopy shows hiatal hernia without evidence of bleeding source Patient agreement to have evaluation by surgery for appendiceal mass. Pathology is pending CT scan of his chest will be undertaken to further evaluate for metastatic disease Regarding his iron deficiency patient will receive a dose of Venofer Appendiceal mass seen on colonoscopy. 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 Laparoscopic Ileocecectomy Surgeon: Wesley Saleem preprocedure pathology showed tubulovillous adenoma post op ileus and pain this weekend, iv tylenol to try to avoid opiates to reduce bowel function slowing now with NG tube again, see above (3) SHAY (acute kidney injury): Acute Kidney Injury: Resolved -Cr 1.77 on admission -likely 2/2 anemia and hypotension with poor renal perfusion Cr is 1.03 today, electrolytes stable (4) Multiple rib fractures: Falls:Multiple Rib Fractures: right side, ribs 6 and 7 and L1 transverse process fracture -Incidentally noted on CT scan -patient recently admitted to hospital in [place] for this following recent fall Pain controlled with Ultram 50mg q4 PRN, Tylenol PRN -concerns regarding patient's safety given numerous falls, rib fractures possible sacral fracture. Family does not want the patient to go home however the patient adamantly does not want to go to any rehab or supportive environment -PT/OT consulted, family and patient remain at odds regarding his final disposition but he will not be ready for several days due to recovery from surgery (5) Atrial fibrillation, permanent: Atrial Fibrillation:rate controlled low dose metoprolol, since now not taking po well will transiton to iv -discontinue Eliquis in the setting of numerous falls, and anemia will have on post op chemoprophylaxis once anemia is stable (6) History of CVA (cerebrovascular accident): Resume aspirin postoperatively once hemostasis is achieved (7) Hyperlipidemia: Remains on atorvastatin (8) Diastolic CHF: Patient not having much issues with volume however we will continue his beta-josefina as treatment of his chronic diastolic heart failure pt has moderated MR on Echo from 10/16 is with hypoxic respiratory distress 11/30, given lasix 40 mg iv resolved, responded well to Lasix, will use PRN, none needed today (9) DVT prophylaxis: Patient is a DNR/DNI. SCDs were used postoperatively then returning anticoagulation with first chemoprophylaxis for DVT prevention and then consideration of anticoagulation for his atrial fibrillation once we are sure he has no further anemia Admission and Anticipated Discharge Date Admission Date: November 22, 2020 Subjective patient had a new NG tube placed this morning, draining a few hundred mL of gastric fluids abdomen is less firm and he admits he feels a lot better now reviewed chart since last week, he was found to have fungating mass at appendiceal orifice, had right colectomy surgery now managing post op care he is oriented to place for me, 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 he keeps asking how much longer he needs to be here, I explained that he will be here at least through the end of the week labs today: WBC 8k, Hb 9, plts 188k, Cr 1.0, K 4.4, albumin 2.5 Review of Systems Review of Systems: All systems reviewed & are unremarkable except as noted in Subjective Physical Exam Constitutional: well developed, + thin, + frail appearing and comfortable; no acute distress ENMT: external ear and nose normal, oropharynx normal (NG tube in place) Neck: trachea midline, no thyromegaly Respiratory: normal respiratory effort; no respiratory distress and no cough Auscultation: + diminished lung sounds (bases); no rales, no rhonchi and no wheezes Cardiovascular: RRR, no murmur, no edema Gastrointestinal (Abdomen): Inspection/Auscultation: + abdomen distended and + hypoactive bowel sounds Percussion/Palpation: + abdomen tender and + abdomen firm Musculoskeletal: Head/Neck/Chest: normocephalic, head atraumatic, neck supple and + localized rib tenderness (right 6/7 ribs) Extremities: extremities normal to inspection, + abnormal strength (generalized weakness) and + muscle atrophy; no cyanosis, no clubbing and no petechiae Skin: + turgor decreased and + dry skin; no rashes Neurologic: patellar DTR's 2+ bilat, sensation intact and PERRL, EOMI, accommodation nl, no face palsy, no dysarthria Psychiatric: Orientation: alert, oriented to person and oriented to place Lymphatic: no cervical or axillary lymphadenopathy Results & Data Results & Data ([facility]) Vital Signs (Past 12 Hours) Vital Signs Temp Pulse Pulse Resp BP BP Pulse Ox 12/02/20 10:52 36.7 C 88 24 103/61 95 12/02/20 08:00 36.6 C 97 H 20 111/65 12/02/20 05:36 97 H 111/81 12/02/20 03:26 36.8 C 97 H 18 111/62 93 12/02/20 01:54 83 Laboratory Results Laboratory Results - last 24 hr 12/01/20 12/01/20 12/02/20 08:18 15:30 05:27 WBC RBC Hgb Hct MCV MCH MCHC RDW Std Deviation RDW Coeff of Jennifer Plt Count MPV Immature Gran % (Auto) Neut % (Auto) Lymph % (Auto) Loving % (Auto) Eos % (Auto) Baso % (Auto) Neut # (Auto) Lymph # (Auto) Loving # (Auto) Eos # (Auto) Baso # (Auto) Immature Gran # (Auto) Absolute Nucleated RBC Nucleated RBC % (auto) Sodium 138 Potassium 4.4 Chloride 106 Carbon Dioxide 28 Anion Gap 4.0 BUN 27 H Creatinine 1.03 Est Cr Clr Drug Dosing 56.0 Est GFR ( Amer) 74.8 Est GFR (Non-Af Amer) 64.6 BUN/Creatinine Ratio 25.9 H Glucose 127 H Calcium 7.3 L Total Bilirubin 1.4 H Direct Bilirubin 0.7 H AST 27 ALT 20 Alkaline Phosphatase 145 H Total Protein 5.1 L Albumin 2.5 L Ur Random Creatinine < 13.0 Crossmatch See Detail 12/02/20 05:27 WBC 8.88 RBC 3.49 L Hgb 9.3 L Hct 31.0 L MCV 88.8 MCH 26.6 MCHC 30.0 L RDW Std Deviation 58.7 H RDW Coeff of Jennifer 18.3 H Plt Count 188 MPV 9.8 Immature Gran % (Auto) 0.2 Neut % (Auto) 84.0 Lymph % (Auto) 2.4 Loving % (Auto) 13.0 Eos % (Auto) 0.3 Baso % (Auto) 0.1 Neut # (Auto) 7.46 H Lymph # (Auto) 0.21 L Loving # (Auto) 1.15 H Eos # (Auto) 0.03 Baso # (Auto) 0.01 Immature Gran # (Auto) 0.02 Absolute Nucleated RBC 0.04 H Nucleated RBC % (auto) 0.4 Sodium Potassium Chloride Carbon Dioxide Anion Gap BUN Creatinine Est Cr Clr Drug Dosing Est GFR ( Amer) Est GFR (Non-Af Amer) BUN/Creatinine Ratio Glucose Calcium Total Bilirubin Direct Bilirubin AST ALT Alkaline Phosphatase Total Protein Albumin Ur Random Creatinine Crossmatch Medications Administered Current Inpatient Medications Acetaminophen (Acetaminophen 325 Mg Tab) 650 mg PO Q4H PRN PRN Reason: Pain or Fever Stop: 12/22/20 21:50 Last Admin: 12/01/20 13:22 Dose: 650 mg Documented by: Acetaminophen (Acetaminophen 1000 Mg/100 Ml Iv) 1,000 mg IV Q8H PRN PRN Reason: pain fever Stop: 12/03/20 15:59 Last Admin: 12/02/20 08:43 Dose: 1,000 mg Documented by: Al Hydrox/Mg Hydrox/Simethicone (Aluminum/Magnesium Susp 30 Ml Udc) 15 ml PO Q4H PRN PRN Reason: Dyspepsia Stop: 12/22/20 21:50 Hydroxyzine HCl (Hydroxyzine Hcl 25 Mg Tab) 25 mg PO Q6H PRN PRN Reason: Itching Stop: 12/26/20 15:20 Last Admin: 11/26/20 17:43 Dose: 25 mg Documented by: Pantoprazole Sodium 40 mg/ (Syringe) 10 mls @ 5 mls/min IV BID DAVID Stop: 12/28/20 22:59 Last Admin: 12/02/20 08:48 Dose: 5 mls/min Documented by: Sodium Chloride (Nss 1000ml) 1,000 mls @ 100 mls/hr IV .Q10H DAVID Stop: 01/01/21 08:29 Last Admin: 12/02/20 08:48 Dose: 100 mls/hr Documented by: Lidocaine (Lidocaine 5% 1 Patch) 1 patch TD QAM [facility] Stop: 12/23/20 05:44 Last Admin: 12/01/20 08:54 Dose: 1 patch Documented by: Metoprolol Tartrate (Metoprolol Tartrate 25 Mg Tab) 12.5 mg PO BID [facility] Stop: 12/27/20 20:59 Last Admin: 11/28/20 22:50 Dose: Not Given Documented by: Metoprolol Tartrate (Metoprolol Tartrate 1 Mg/Ml Vial) 2.5 mg IV Q6 DAVID Stop: 12/30/20 17:59 Last Admin: 12/02/20 05:36 Dose: 2.5 mg Documented by: Miscellaneous (Remove Lidoderm Patch) 1 ea N/A DAILY@2100 [facility] Stop: 12/23/20 20:59 Last Admin: 12/01/20 20:27 Dose: 1 ea Documented by: Morphine Sulfate (Morphine Sulfate 2 Mg/Ml Carp) 2 mg IV Q30M PRN PRN Reason: pain Stop: 12/06/20 21:50 Last Admin: 12/02/20 08:43 Dose: 2 mg Documented by: Nitroglycerin (Nitroglycerin Sl 0.4 Mg/Tab Tab) 0.4 mg SL UD PRN PRN Reason: Chest Pain Stop: 12/22/20 21:50 Pantoprazole Sodium (Pantoprazole 40 Mg Tab) 40 mg PO BID [facility] Stop: 12/26/20 20:59 Last Admin: 11/28/20 08:44 Dose: 40 mg Documented by: PG Care Time/CCT Total # of Minutes Spent Total Time Spent with Patient: Total time spent is greater than 50% in coordination of care (as documented) at patient's floor/unit and/or counseling patient: Coding Level of Care Code 18982 Subseq Hosp Care Lvl 3 Diagnoses Cecum mass K63.89 Anemia D64.9 Anemia type: unspecified type SHAY (acute kidney injury) N17.9 Multiple rib fractures S22.41XA Encounter type: initial encounter Fracture type: closed Laterality: right Atrial fibrillation, permanent I48.21 History of CVA (cerebrovascular accident) Z86.73 Hyperlipidemia E78.5 Diastolic CHF I50.32 Heart failure chronicity: chronic DVT prophylaxis Z29.9 (1) Anemia Anemia type: unspecified type Qualified Code(s): D64.9 - Anemia, unspecified (2) Multiple rib fractures Encounter type: initial encounter Fracture type: closed Laterality: right Qualified Code(s): S22.41XA - Multiple fractures of ribs, right side, initial encounter for closed fracture (3) Diastolic CHF Heart failure chronicity: chronic Qualified Code(s): I50.32 - Chronic diastolic (congestive) heart failure
[2020-12-02] MEDS: LIDOCAINE 5% 1 PATCH TD SCH (11:31)
[2020-12-03] MEDS: METOPROLOL TARTRATE 1 MG/ML VIAL IV SCH ×4 (00:05→18:05)
[2020-12-03] MEDS: ACETAMINOPHEN 1000 MG/100 ML IV IV PRN (01:43)
[2020-12-03] MEDS: SODIUM CHLORIDE 0.9% 1000ML 1,000 ML IV SCH ×2 (05:46→15:51)
[2020-12-03 06:05] LABS: Eosinophils # (auto) 0.07 K/uL (0-0.5); Eosinophils % (auto) 0.9 %; Hematocrit (blood only) 28.5 % (42-52); Hemoglobin 8.6 g/dL (14.0-18.0); Immature Granulocytes # (auto) 0.02 K/uL (0.00-0.02); Immature Granulocytes % (auto) 0.3 %; Lymphocytes # (auto) 0.84 K/uL (1.2-3.4); Lymphocytes % (auto) 11.1 %; Mean Corpuscular Hemoglobin 26.8 pg (25-34); Mean Corpuscular Hgb Conc 30.2 g/dL (32-36); Mean Corpuscular Volume 88.8 fL (80-100); Mean Platelet Volume 10.2 fL (7.4-10.4); Monocytes # (auto) 1.14 K/uL (0.11-0.59); Monocytes % (auto) 15.1 %; Neutrophils # (auto) 5.47 K/uL (1.4-6.5); Neutrophils % (auto) 72.6 %; Nucleated RBC # (auto) 0.02 K/uL (0-0); Nucleated RBC % (auto) 0.2 %; Platelet Count 225 K/uL (130-400); RDW Coefficient of Variation 17.9 % (11.5-14.5); RDW Standard Deviation 58.5 fL (36.4-46.3); Red Blood Count 3.21 M/uL (4.7-6.1); White Blood Count 7.54 K/uL (4.8-10.8)
[2020-12-03 06:25] LABS: Albumin Level 2.1 gm/dl (3.4-5.0); BUN Creatinine Ratio 28.9 (10-20); Calcium 7.2 mg/dl (8.5-10.1); Creatinine Clr Calc Pharmacy 56.6 ml/min; Est GFR (African American) 75.7 ml/min; Est GFR (Non-African American) 65.3 ml/min; Potassium 4.6 mmol/L (3.5-5.1)
[2020-12-03 06:28] LABS: Albumin Globulin Ratio 0.9 (0.9-2); Bilirubin,Total 1.1 mg/dl (0.2-1); Globulin 2.5 gm/dl (2.5-4.0); Total Protein 4.6 gm/dl (6.4-8.2)
[2020-12-03] MEDS: PANTOprazole 40 MG in SYRINGE 0 ML IV SCH ×2 (08:33→21:45)
[2020-12-03] MEDS: LIDOCAINE 5% 1 PATCH TD SCH (08:36)
--- NOTE | 2020-12-03 08:42 | Surgery Progress Note ---
Date of Service December 03, 2020 Assessment & Plan (1) Cecum mass: pod 5 reviewed path-- good news awaiting bowel fx. isabella check KUB...if improved will perform clamping trial and possibly d/c ngt post op delerium. will contact family to see if perhaps they could visit. labs reviewed. Admission and Anticipated Discharge Date Admission Date: November 22, 2020 Subjective pt seen. much more awake/alert but confused denies pain. wants to go home. Physical Exam Physical Exam: alert confused. appears comfortable. ngt with small amount of gastric secretions currently. RIP continues with high serous output. abd: soft. right sided incision with some serous drainage. intact. no purulent drainage. Results & Data ([facility]) Vital Signs (Past 12 Hours) Vital Signs Temp Pulse Pulse Resp BP BP Pulse Ox 12/03/20 07:08 36.7 C 89 20 112/70 94 12/03/20 05:43 85 12/03/20 04:37 36.6 C 89 18 112/70 97 12/03/20 00:05 90 106/53 L 12/03/20 00:00 92 H 12/02/20 23:55 36.7 C 89 20 106/53 L 95 PG Care Time/CCT Total # of Minutes Spent Total Time Spent with Patient: Total time spent is greater than 50% in coordination of care (as documented) at patient's floor/unit and/or counseling patient: Coding Level of Care Code None Diagnoses Cecum mass K63.89
--- NOTE | 2020-12-03 09:07 | XRay Report ---
XR KUB/Abdomen 1 view CLINICAL HISTORY: follow up dilated bowel loops, ileus COMPARISON STUDY: 12/02/2020 FINDINGS: There are scattered surgical clips. There is a nonspecific 7 mm right mid abdominal calcifi cation. This previously was located to the left of midline and therefore is unlikely to represent a u reteral calculus. There is a right-sided surgical drain. There is persistent moderate small bowel dil atation. There is no pathologic colonic distention. IMPRESSION: Persistent nonspecific small bowel dilatation. ACT 112: Negative or not required by law. Electronically signed by: Ganesh Dimas M.D. 12/03/2020 9:06 AM
[2020-12-03] MEDS ORDERED: HALOPERIDOL LACTATE 5 MG/ML 1 ML VIAL IV STA (14:04)
[2020-12-03] MEDS: MoRPHine SULFATE 2 MG/ML CARP IV PRN (18:04)
[2020-12-04] MEDS: METOPROLOL TARTRATE 1 MG/ML VIAL IV SCH ×4 (00:44→17:50)
[2020-12-04] MEDS: SODIUM CHLORIDE 0.9% 1000ML 1,000 ML IV SCH ×2 (00:45→12:27)
--- NOTE | 2020-12-04 08:25 | Surgery Progress Note ---
Date of Service December 04, 2020 Assessment & Plan (1) Cecum mass: pod 6 improving. will d/c ngt and putnam increase activity. PT/OT d/w family regarding favorable path report. Admission and Anticipated Discharge Date Admission Date: November 22, 2020 Subjective pt seen. much more alert/oriented today. +bm per nursing. ngt clamped/tolerating clears. Physical Exam Physical Exam: alert. oriented today. nad abd: soft. +large amount of ascites via RIP and incisions. clear. no sign of infection. Results & Data ([facility]) Vital Signs (Past 12 Hours) Vital Signs Temp Pulse Pulse Resp BP BP Pulse Ox 12/04/20 07:20 36.6 C 91 H 18 111/71 97 12/04/20 05:43 104 H 117/67 12/04/20 03:53 36.8 C 99 H 20 102/57 L 92 12/04/20 00:56 96 H 12/04/20 00:44 99 H 127/59 L 12/03/20 23:07 37.0 C 108 H 19 125/72 90 PG Care Time/CCT Total # of Minutes Spent Total Time Spent with Patient: Total time spent is greater than 50% in coordination of care (as documented) at patient's floor/unit and/or counseling patient: Coding Level of Care Code None Diagnoses Cecum mass K63.89
[2020-12-04 08:34] LABS: Hematocrit (blood only) 29.7 % (42-52); Hemoglobin 8.9 g/dL (14.0-18.0); Mean Corpuscular Hemoglobin 26.3 pg (25-34); Mean Corpuscular Volume 87.6 fL (80-100); Mean Platelet Volume 9.5 fL (7.4-10.4); Platelet Count 253 K/uL (130-400); RDW Coefficient of Variation 17.9 % (11.5-14.5); RDW Standard Deviation 57.3 fL (36.4-46.3); Red Blood Count 3.39 M/uL (4.7-6.1); White Blood Count 8.67 K/uL (4.8-10.8)
[2020-12-04 09:09] LABS: Calcium 7.6 mg/dl (8.5-10.1); Est GFR (African American) 84.7 ml/min; Potassium 4.9 mmol/L (3.5-5.1)
[2020-12-04] MEDS: LIDOCAINE 5% 1 PATCH TD SCH (09:53)
[2020-12-04] MEDS: PANTOprazole 40 MG in SYRINGE 0 ML IV SCH ×2 (09:54→19:48)
--- NOTE | 2020-12-04 11:04 | Hospitalist Progress Note ---
Date of Service December 03, 2020 Assessment & Plan (1) Cecum mass: s/p right hemicolectomy had NG tube placed again morning of 12/02 for distension and discomfort management per general surgery pathology: adenoma, not a cancer had a BM on 12/03 and minimal output from NG tube ordered tube to be clamped in afternoon on 12/03 and try some sips of clear liquids as long as he is not nauseated or tense then can probably pull the NG tube on 12/04 (2) Anemia: Matty Smiley is a 89-year-old male with past medical history significant for A. fib, diastolic CHF, prior CVA, frequent falls, known AAA, CKD stage III, and COPD; who presented to ER earlier today for concerns of low blood pressure. 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 Upper endoscopy shows hiatal hernia without evidence of bleeding source Regarding his iron deficiency patient will receive a dose of Venofer Appendiceal mass seen on colonoscopy. 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 11/28/20 Laparoscopic Ileocecectomy Surgeon: Wesley Saleem (3) SHAY (acute kidney injury): Acute Kidney Injury: Resolved -Cr 1.77 on admission -likely 2/2 anemia and hypotension with poor renal perfusion Cr is stable, electrolytes stable (4) Multiple rib fractures: Falls:Multiple Rib Fractures: right side, ribs 6 and 7 and L1 transverse process fracture -Incidentally noted on CT scan -patient recently admitted to hospital in [place] for this following recent fall Pain controlled with Ultram 50mg q4 PRN, Tylenol PRN -concerns regarding patient's safety given numerous falls, rib fractures possible sacral fracture. Family does not want the patient to go home however the patient adamantly does not want to go to any rehab or supportive environment -PT/OT consulted, family and patient remain at odds regarding his final disposition but he will not be ready for several days due to recovery from surgery plan for family meeting on 12/04 to discuss realistic goals of care, will likely bring up palliative care (5) Atrial fibrillation, permanent: Atrial Fibrillation:rate controlled low dose metoprolol, since now not taking po well will transiton to iv -discontinue Eliquis in the setting of numerous falls, and anemia will have on post op chemoprophylaxis once anemia is stable (6) History of CVA (cerebrovascular accident): Resume aspirin postoperatively once hemostasis is achieved (7) Hyperlipidemia: Remains on atorvastatin (8) Diastolic CHF: Patient not having much issues with volume however we will continue his beta-josefina as treatment of his chronic diastolic heart failure pt has moderated MR on Echo from 10/16 is with hypoxic respiratory distress 11/30, given lasix 40 mg iv resolved, responded well to Lasix, will use PRN, none needed today (9) DVT prophylaxis: Patient is a DNR/DNI. SCDs were used postoperatively then returning anticoagulation with first chemoprophylaxis for DVT prevention and then consideration of anticoagulation for his atrial fibrillation once we are sure he has no further anemia Admission and Anticipated Discharge Date Admission Date: November 22, 2020 Subjective patient had a good day in the morning, was OOB to a chair for a few hours he was able to have a bowel movement per RN and very minimal output from NG tube ordered RN to clamp the NG tube in afternoon and allow some clear liquids if can be awake labs reviewed, CBC and BMP stable he had a very delirious episode in the afternoon, yelling out for "my boy and mommy" could not redirect him after several attempts, pulling at lines, gave him haldol 5mg IV with good response, slept in afternoon I updated both his daughter and then his son at the bedside we agreed to have a family meeting on 12/04 to discuss with patient his goals of care Review of Systems Review of Systems: Unobtainable due to cognitive status (delirium, yelling out) Physical Exam Constitutional: well developed, + thin, + frail appearing and comfortable; no acute distress Respiratory: normal respiratory effort; no respiratory distress and no cough Auscultation: + diminished lung sounds (bases); no rales, no rhonchi and no wheezes Cardiovascular: RRR, no murmur, no edema Gastrointestinal (Abdomen): Inspection/Auscultation: + abdomen distended and + hypoactive bowel sounds Percussion/Palpation: + abdomen tender and + abdomen firm Musculoskeletal: Head/Neck/Chest: normocephalic, head atraumatic, neck supple and + localized rib tenderness (right 6/7 ribs) Extremities: extremities normal to inspection, + abnormal strength (generalized weakness) and + muscle atrophy; no cyanosis, no clubbing and no petechiae Skin: + turgor decreased and + dry skin; no rashes Neurologic: patellar DTR's 2+ bilat, sensation intact and PERRL, EOMI, accommodation nl, no face palsy, no dysarthria Psychiatric: Orientation: alert and + guarded; + not oriented to person, + not oriented to place and + not oriented to time Hallucinations: + visual hallucinations (he thinks it is snowing) Lymphatic: no cervical or axillary lymphadenopathy Results & Data Results & Data ([facility]) Vital Signs (Past 12 Hours) Vital Signs Temp Pulse Pulse Resp BP BP Pulse Ox 12/04/20 07:20 36.6 C 91 H 18 111/71 97 12/04/20 05:43 104 H 117/67 12/04/20 03:53 36.8 C 99 H 20 102/57 L 92 12/04/20 00:56 96 H 12/04/20 00:44 99 H 127/59 L 12/03/20 23:07 37.0 C 108 H 19 125/72 90 PG Care Time/CCT Total # of Minutes Spent Total Time Spent: 40 Total Time Spent with Patient: Total time spent is greater than 50% in coordination of care (as documented) at patient's floor/unit and/or counseling patient: spent total of 20 minutes at bedside with patient and reviewing chart, documenting spent total of 20 minutes speaking first with daughter and then with son at the bedside about plans, goals of care Coding Level of Care Code 69301 Subseq Hosp Care Lvl 3 Diagnoses Cecum mass K63.89 Anemia D64.9 Anemia type: unspecified type SHAY (acute kidney injury) N17.9 Multiple rib fractures S22.41XA Encounter type: initial encounter Fracture type: closed Laterality: right Atrial fibrillation, permanent I48.21 History of CVA (cerebrovascular accident) Z86.73 Hyperlipidemia E78.5 Diastolic CHF I50.32 Heart failure chronicity: chronic DVT prophylaxis Z29.9 (1) Anemia Anemia type: unspecified type Qualified Code(s): D64.9 - Anemia, unspecified (2) Multiple rib fractures Encounter type: initial encounter Fracture type: closed Laterality: right Qualified Code(s): S22.41XA - Multiple fractures of ribs, right side, initial encounter for closed fracture (3) Diastolic CHF Heart failure chronicity: chronic Qualified Code(s): I50.32 - Chronic diastolic (congestive) heart failure
--- NOTE | 2020-12-04 11:12 | Hospitalist Progress Note ---
Date of Service December 04, 2020 Assessment & Plan (1) Cecum mass: s/p right hemicolectomy had NG tube placed again morning of 12/02 for distension and discomfort management per general surgery pathology: adenoma, not a cancer had a BM on 12/03 and minimal output from NG tube ordered tube to be clamped in afternoon on 12/03 and try some sips of clear liquids NG tube pulled today and putnam pulled today tolerating some sips of liquids anticipate it is going to be difficult for him to stay well nourished explained this to family will watch and see how he does with food going forward (2) Anemia: Matty Smiley is a 89-year-old male with past medical history significant for A. fib, diastolic CHF, prior CVA, frequent falls, known AAA, CKD stage III, and COPD; who presented to ER earlier today for concerns of low blood pressure. 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 Upper endoscopy shows hiatal hernia without evidence of bleeding source Regarding his iron deficiency patient will receive a dose of Venofer Appendiceal mass seen on colonoscopy. 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 11/28/20 Laparoscopic Ileocecectomy Surgeon: Wesley Saleem Hb has been stable (3) SHAY (acute kidney injury): Acute Kidney Injury: Resolved -Cr 1.77 on admission -likely 2/2 anemia and hypotension with poor renal perfusion Cr is stable, electrolytes stable (4) Multiple rib fractures: Falls:Multiple Rib Fractures: right side, ribs 6 and 7 and L1 transverse process fracture -Incidentally noted on CT scan -patient recently admitted to [facility] in [place] for this following recent fall Pain controlled with Ultram 50mg q4 PRN, Tylenol PRN -concerns regarding patient's safety given numerous falls, rib fractures possible sacral fracture. Family does not want the patient to go home due to safety issues due to falls and weakness, had a family meeting today with son and daughter discussed with family as well at the bedside will get palliative consult, discuss goals of care, POLST etc (5) Atrial fibrillation, permanent: Atrial Fibrillation:rate controlled low dose metoprolol resume PO Metoprolol -discontinue Eliquis in the setting of numerous falls, and anemia will have on post op chemoprophylaxis once anemia is stable (6) History of CVA (cerebrovascular accident): Resume aspirin postoperatively once hemostasis is achieved (7) Hyperlipidemia: Remains on atorvastatin (8) Diastolic CHF: Patient not having much issues with volume however we will continue his beta-josefina as treatment of his chronic diastolic heart failure pt has moderated MR on Echo from 10/16 is with hypoxic respiratory distress 11/30, given lasix 40 mg iv resolved, responded well to Lasix, will use PRN, none needed today (9) DVT prophylaxis: Patient is a DNR/DNI. SCDs Admission and Anticipated Discharge Date Admission Date: November 22, 2020 Subjective patient is more alert today and he is oriented x 3, no distress per RN, he had some sips of tea and Yola kari this morning, not much of an appetite NG tube pulled this morning, putnam pulled per general surgery long meeting with daughter and son outside of the room discussed realistic expectations for recovery, this is his 4th hospitalization in a month has been falling at home, fractured ribs now he has undergone intra-abdominal surgery and he is malnourished, very weak from being in the hospital for two weeks I expressed my doubts that he will ever be independent, will need to be in SNF, even prior to major surgery he was not safe to be alone anymore in his apartment we then went into the room, spoke with patient, he was oriented, knew he was in hospital in [place] because he had tumor in colon and he had major surgery he understood that he will need to improve his oral intake, will watch for continued bowel function he needs to improve his strength through therapy but I told him that he needs to go to SNF rehab and he will likely not make it back to his apartment, as it was not safe for him even prior to this admission I asked him if he would want to keep coming back to the hospital if he gets sick and he said no he confirms with that he has told his children that at times he feels like he is dying, feels like he will never recover he agrees to meeting with palliative care and I updated Liana with palliative care about reason for consult Review of Systems Review of Systems: All systems reviewed & are unremarkable except as noted in Subjective Constitutional: + weakness Respiratory: + dyspnea on exertion Cardiovascular: no chest pain and no edema Gastrointestinal: + abdominal pain (mild); no nausea, no vomiting, no constipation and no diarrhea/loose stools Physical Exam Constitutional: well developed, + thin, + frail appearing and comfortable; no acute distress Respiratory: normal respiratory effort; no respiratory distress and no cough Auscultation: + diminished lung sounds (bases); no rales, no rhonchi and no wheezes Cardiovascular: RRR, no murmur, no edema Gastrointestinal (Abdomen): normal bowel sounds, soft, nontender, no hepatosplenomegaly Inspection/Auscultation: + abdomen distended and + hypoactive bowel sounds Percussion/Palpation: + abdomen tender and + abdomen firm Musculoskeletal: Head/Neck/Chest: normocephalic, head atraumatic, neck supple and + localized rib tenderness (right 6/7 ribs) Extremities: extremities normal to inspection, + abnormal strength (generalized weakness) and + muscle atrophy; no cyanosis, no clubbing and no petechiae Skin: + turgor decreased and + dry skin; no rashes Neurologic: patellar DTR's 2+ bilat, sensation intact and PERRL, EOMI, accommodation nl, no face palsy, no dysarthria Psychiatric: A+Ox3, euthymic affect Lymphatic: no cervical or axillary lymphadenopathy Results & Data Results & [facility] ([facility]) Vital Signs (Past 12 Hours) Vital Signs Temp Pulse Pulse Resp BP BP Pulse Ox 12/04/20 07:20 36.6 C 91 H 18 111/71 97 12/04/20 05:43 104 H 117/67 12/04/20 03:53 36.8 C 99 H 20 102/57 L 92 12/04/20 00:56 96 H 12/04/20 00:44 99 H 127/59 L Laboratory Results Laboratory Results - last 24 hr 12/04/20 12/04/20 07:52 07:52 WBC 8.67 RBC 3.39 L Hgb 8.9 L Hct 29.7 L MCV 87.6 MCH 26.3 MCHC 30.0 L RDW Std Deviation 57.3 H RDW Coeff of Jennifer 17.9 H Plt Count 253 MPV 9.5 Sodium 143 Potassium 4.9 Chloride 111 H Carbon Dioxide 26 Anion Gap 6.0 BUN 29 H Creatinine 0.93 Est Cr Clr Drug Dosing 62.0 Est GFR ( Amer) 84.7 Est GFR (Non-Af Amer) 73.0 BUN/Creatinine Ratio 31.0 H Glucose 112 H Calcium 7.6 L Medications Administered Current Inpatient Medications Acetaminophen (Acetaminophen 325 Mg Tab) 650 mg PO Q4H PRN PRN Reason: Pain or Fever Stop: 12/22/20 21:50 Last Admin: 12/01/20 13:22 Dose: 650 mg Documented by: Al Hydrox/Mg Hydrox/Simethicone (Aluminum/Magnesium Susp 30 Ml Udc) 15 ml PO Q4H PRN PRN Reason: Dyspepsia Stop: 12/22/20 21:50 Hydroxyzine HCl (Hydroxyzine Hcl 25 Mg Tab) 25 mg PO Q6H PRN PRN Reason: Itching Stop: 12/26/20 15:20 Last Admin: 11/26/20 17:43 Dose: 25 mg Documented by: Pantoprazole Sodium 40 mg/ (Syringe) 10 mls @ 5 mls/min IV BID [facility] Stop: 12/28/20 22:59 Last Admin: 12/04/20 09:54 Dose: 5 mls/min Documented by: Sodium Chloride (Nss 1000ml) 1,000 mls @ 50 mls/hr IV .Q20H [facility] Stop: 01/01/21 08:29 Last Admin: 12/04/20 12:27 Dose: 100 mls/hr Documented by: Lidocaine (Lidocaine 5% 1 Patch) 1 patch TD QAM [facility] Stop: 12/23/20 05:44 Last Admin: 12/04/20 09:53 Dose: 1 patch Documented by: Metoprolol Tartrate (Metoprolol Tartrate 25 Mg Tab) 12.5 mg PO BID [facility] Stop: 12/27/20 20:59 Last Admin: 11/28/20 22:50 Dose: Not Given Documented by: Metoprolol Tartrate (Metoprolol Tartrate 1 Mg/Ml Vial) 2.5 mg IV Q6 [facility] Stop: 12/30/20 17:59 Last Admin: 12/04/20 12:23 Dose: 2.5 mg Documented by: Miscellaneous (Remove Lidoderm Patch) 1 ea N/A DAILY@2100 [facility] Stop: 12/23/20 20:59 Last Admin: 12/03/20 21:45 Dose: 1 ea Documented by: Morphine Sulfate (Morphine Sulfate 2 Mg/Ml Carp) 2 mg IV Q30M PRN PRN Reason: pain Stop: 12/06/20 21:50 Last Admin: 12/03/20 18:04 Dose: 2 mg Documented by: Nitroglycerin (Nitroglycerin Sl 0.4 Mg/Tab Tab) 0.4 mg SL UD PRN PRN Reason: Chest Pain Stop: 12/22/20 21:50 Pantoprazole Sodium (Pantoprazole 40 Mg Tab) 40 mg PO BID DAVID Stop: 12/26/20 20:59 Last Admin: 11/28/20 08:44 Dose: 40 mg Documented by: Phenol (Chloraseptic 1.4% Soln 180 Ml Btl) 2 sprays MT Q2HWA PRN PRN Reason: Sore Throat Stop: 01/01/21 11:25 PG Care Time/CCT Total # of Minutes Spent Total Time Spent: 45 Total Time Spent with Patient: Total time spent is greater than 50% in coordination of care (as documented) at patient's floor/unit and/or counseling patient: Coding Level of Care Code 63134 Subseq Hosp Care Lvl 3 Diagnoses Cecum mass K63.89 Anemia D64.9 Anemia type: unspecified type SHAY (acute kidney injury) N17.9 Multiple rib fractures S22.41XA Encounter type: initial encounter Fracture type: closed Laterality: right Atrial fibrillation, permanent I48.21 History of CVA (cerebrovascular accident) Z86.73 Hyperlipidemia E78.5 Diastolic CHF I50.32 Heart failure chronicity: chronic DVT prophylaxis Z29.9 (1) Diastolic CHF Heart failure chronicity: chronic Qualified Code(s): I50.32 - Chronic diastolic (congestive) heart failure (2) Multiple rib fractures Encounter type: initial encounter Fracture type: closed Laterality: right Qualified Code(s): S22.41XA - Multiple fractures of ribs, right side, initial encounter for closed fracture (3) Anemia Anemia type: unspecified type Qualified Code(s): D64.9 - Anemia, unspecified
[2020-12-05] MEDS ORDERED: diphenhydrAMINE 50 MG/ML VIAL IV STA (01:37)
[2020-12-05] MEDS: PANTOprazole 40 MG in SYRINGE 0 ML IV SCH (08:07)
[2020-12-05] MEDS: LIDOCAINE 5% 1 PATCH TD SCH (08:07)
[2020-12-05] MEDS: METOPROLOL SUCC 25MG EXT REL TAB PO SCH (08:07)
--- NOTE | 2020-12-05 09:22 | XRay Report ---
KUB HISTORY: Postop. emesis COMPARISON: KUB 12/15/2020. FINDINGS: There is a surgical drain overlying the mid pelvis. There are also skin brittaney at the pelv is. There are suture material within the right midabdomen. Dilated gas and contrast-filled loops of s mall bowel are seen throughout the abdomen. The dilated loops of small bowel have slightly progressed and measure up to 5 cm in diameter. There is gas and contrast within the nondistended colon. Left ba silar consolidation/effusion is noted. No renal calculi. No ureteral calculi. No pneumoperitoneum or pneumatosis. IMPRESSION: 1. Gas-filled dilated loops of small bowel have slightly progressed. There is gas and contrast seen w ithin the colon. Therefore, these findings favor a postoperative ileus. A partial small bowel obstruc tion could also have a similar appearance. 2. Left basilar consolidation/effusion persists. 3. There is a surgical drain overlying the mid pelvis. ACT 112: Negative or not required by law. Electronically signed by: Marty Do M.D. 12/05/2020 9:21 AM
--- NOTE | 2020-12-05 09:32 | Hospitalist Progress Note ---
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 fib, diastolic CHF, prior CVA, frequent falls, known AAA, CKD stage III, and COPD; who presented to ER earlier today for concerns of low blood pressure. 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 Upper endoscopy shows hiatal hernia without evidence of bleeding source Regarding his iron deficiency patient will receive a dose of Venofer Hb has been stable all week, > 8 (4) SHAY (acute kidney injury): Acute Kidney Injury: Resolved -Cr 1.77 on admission -likely 2/2 anemia and hypotension with poor renal perfusion Cr is stable, electrolytes stable (5) Multiple rib fractures: Falls:Multiple Rib Fractures: right side, ribs 6 and 7 and L1 transverse process fracture -Incidentally noted on CT scan -patient recently admitted to hospital in [place] for this following recent fall Pain controlled with Ultram 50mg q4 PRN, Tylenol PRN -concerns regarding patient's safety given numerous falls, rib fractures possible sacral fracture. Family does not want the patient to go home due to safety issues due to falls and weakness, had a family meeting today with son and daughter discussed with family as well at the bedside will get palliative consult, discuss goals of care, POLST etc (6) Atrial fibrillation, permanent: Atrial Fibrillation:rate controlled low dose metoprolol resume PO Metoprolol -discontinue Eliquis in the setting of numerous falls, and anemia will have on post op chemoprophylaxis once anemia is stable (7) History of CVA (cerebrovascular accident): Resume aspirin postoperatively once hemostasis is achieved (8) Hyperlipidemia: Remains on atorvastatin (9) Diastolic CHF: Patient not having much issues with volume however we will continue his beta-josefina as treatment of his chronic diastolic heart failure pt has moderated MR on Echo from 10/16 is with hypoxic respiratory distress 11/30, given lasix 40 mg iv resolved, responded well to Lasix, will use PRN, none needed today (10) DVT prophylaxis: Patient is a DNR/DNI. SCDs (11) Severe protein-calorie malnutrition: not eating enough with ileus will likely need to consider PPN at least for a short while Admission and Anticipated Discharge Date Admission Date: November 22, 2020 Subjective patient had a BM at 830 for the aide, it was liquid and very dark per the aide no nausea, tolerating clear liquids, still with dilated small bowel loops on the KUB but he has bowel sounds more active today, OOB to chair, he participated with therapy, highly motivated to get stronger occult blood positive in stool, will check CBC this morning resume some PO medications, specifically his Toprol 25mg daily breathing well, no distress, lungs are clear, HR in low 100's, will resume his Methimazole as well Review of Systems Review of Systems: All systems reviewed & are unremarkable except as noted in Subjective Constitutional: no fever Respiratory: no cough and no dyspnea Cardiovascular: no chest pain and no edema Gastrointestinal: + abdominal pain (mild), + diarrhea/loose stools and + melena (dark stools); no nausea, no vomiting and no constipation Physical Exam Constitutional: well developed, + thin, + frail appearing and comfortable; no acute distress Neck: trachea midline, no thyromegaly Respiratory: normal respiratory effort; no respiratory distress and no cough Auscultation: + diminished lung sounds (bases); no rales, no rhonchi and no wheezes Cardiovascular: RRR, no murmur, no edema Gastrointestinal (Abdomen): Inspection/Auscultation: + abdomen distended and + hypoactive bowel sounds Percussion/Palpation: + abdomen tender and + abdomen firm Musculoskeletal: Head/Neck/Chest: normocephalic, head atraumatic, neck supple and + localized rib tenderness (right 6/7 ribs) Extremities: extremities normal to inspection, + abnormal strength (generalized weakness) and + muscle atrophy; no cyanosis, no clubbing and no petechiae Skin: + turgor decreased and + dry skin; no rashes Neurologic: patellar DTR's 2+ bilat, sensation intact and PERRL, EOMI, accommodation nl, no face palsy, no dysarthria Psychiatric: A+Ox3, euthymic affect Lymphatic: no cervical or axillary lymphadenopathy Results & Data Results & Data ([facility]) Vital Signs (Past 12 Hours) Vital Signs Temp Pulse Pulse Resp BP Pulse Ox 12/05/20 07:43 36.8 C 103 H 18 107/67 92 12/05/20 03:48 36.8 C 88 20 103/71 91 12/04/20 23:29 36.9 C 99 H 20 108/74 94 Laboratory Results Laboratory Results - last 24 hr 12/05/20 08:00 Stool Occult Bld Scrn Positive A Medications Administered Current Inpatient Medications Acetaminophen (Acetaminophen 325 Mg Tab) 650 mg PO Q4H PRN PRN Reason: Pain or Fever Stop: 12/22/20 21:50 Last Admin: 12/01/20 13:22 Dose: 650 mg Documented by: Al Hydrox/Mg Hydrox/Simethicone (Aluminum/Magnesium Susp 30 Ml Udc) 15 ml PO Q4H PRN PRN Reason: Dyspepsia Stop: 12/22/20 21:50 Hydroxyzine HCl (Hydroxyzine Hcl 25 Mg Tab) 25 mg PO Q6H PRN PRN Reason: Itching Stop: 12/26/20 15:20 Last Admin: 11/26/20 17:43 Dose: 25 mg Documented by: Pantoprazole Sodium 40 mg/ (Syringe) 10 mls @ 5 mls/min IV BID DAVID Stop: 12/28/20 22:59 Last Admin: 12/05/20 08:07 Dose: 5 mls/min Documented by: Sodium Chloride (Nss 1000ml) 1,000 mls @ 50 mls/hr IV .Q20H DAVID Stop: 01/01/21 08:29 Last Infusion: 12/05/20 08:28 Dose: Infused Documented by: Lidocaine (Lidocaine 5% 1 Patch) 1 patch TD QAM [facility] Stop: 12/23/20 05:44 Last Admin: 12/05/20 08:07 Dose: Not Given Documented by: Metoprolol Succinate (Metoprolol Succ 25mg Ext Rel Tab) 25 mg PO QAM [facility] Stop: 01/04/21 08:59 Last Admin: 12/05/20 08:07 Dose: 25 mg Documented by: Metoprolol Tartrate (Metoprolol Tartrate 25 Mg Tab) 12.5 mg PO BID [facility] Stop: 12/27/20 20:59 Last Admin: 11/28/20 22:50 Dose: Not Given Documented by: Miscellaneous (Remove Lidoderm Patch) 1 ea N/A DAILY@2100 [facility] Stop: 12/23/20 20:59 Last Admin: 12/04/20 19:47 Dose: 1 ea Documented by: Morphine Sulfate (Morphine Sulfate 2 Mg/Ml Carp) 2 mg IV Q30M PRN PRN Reason: pain Stop: 12/06/20 21:50 Last Admin: 12/03/20 18:04 Dose: 2 mg Documented by: Nitroglycerin (Nitroglycerin Sl 0.4 Mg/Tab Tab) 0.4 mg SL UD PRN PRN Reason: Chest Pain Stop: 12/22/20 21:50 Pantoprazole Sodium (Pantoprazole 40 Mg Tab) 40 mg PO BID [facility] Stop: 12/26/20 20:59 Last Admin: 11/28/20 08:44 Dose: 40 mg Documented by: Phenol (Chloraseptic 1.4% Soln 180 Ml Btl) 2 sprays MT Q2HWA PRN PRN Reason: Sore Throat Stop: 01/01/21 11:25 PG Care Time/CCT Total # of Minutes Spent Total Time Spent with Patient: Total time spent is greater than 50% in coordination of care (as documented) at patient's floor/unit and/or counseling patient: Coding Level of Care Code 60721 Subseq Hosp Care Lvl 3 Diagnoses Postoperative ileus K91.89; K56.7 Cecum mass K63.89 Anemia D64.9 Anemia type: unspecified type SHAY (acute kidney injury) N17.9 Multiple rib fractures S22.41XA Encounter type: initial encounter Fracture type: closed Laterality: right Atrial fibrillation, permanent I48.21 History of CVA (cerebrovascular accident) Z86.73 Hyperlipidemia E78.5 Diastolic CHF I50.32 Heart failure chronicity: chronic DVT prophylaxis Z29.9 Severe protein-calorie malnutrition E43 (1) Diastolic CHF Heart failure chronicity: chronic Qualified Code(s): I50.32 - Chronic diastolic (congestive) heart failure (2) Multiple rib fractures Encounter type: initial encounter Fracture type: closed Laterality: right Qualified Code(s): S22.41XA - Multiple fractures of ribs, right side, initial encounter for closed fracture (3) Anemia Anemia type: unspecified type Qualified Code(s): D64.9 - Anemia, unspecified
[2020-12-05] MEDS: SODIUM CHLORIDE 0.9% 1000ML 1,000 ML IV SCH (10:12)
--- NOTE | 2020-12-05 11:01 | Palliative Care Consultation ---
Date of Consultation December 05, 2020 Assessment & Plan (1) Palliative care encounter: This is an 89 year old male who presented to the [facility] with hypotension and another fall. He has been experiencing multiple falls and has had multiple readmissions over the last month. Additional PMH includes: atrial fibrillation, diastolic CHF, prior CVA, frequent falls, known AAA, CKD stage III, and COPD. 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 A Laparoscopic Ileocecectomy was performed on 11/28 and he is recovery slowly. Palliative Medicine was consulted to discuss overall goals of care. I met with patient who was sitting in his bedside chair in no apparent distress. He was AAOx3 and able to hold a meaningful conversation with me. He indicated that he typically lives alone at home, but knows that he can not do that anymore based on his recent falls, and now post-operative stay. I discussed his code status and he was clear that in the event of cardiac or respiratory arrest, he would not want heroic measures taken. In talking about overall goals of care, he stated numerous times that if "things go sour in rehab, don't bring me back here". When asked to elaborate, he said "I never want to see the inside of a hospital again." I did complete a POLST form with him indicating DNR/DNI, limited intervention, no artificial nutrition/hydration, and trial abx. I was able to talk with his daughter Kristi and son Nathaniel on the phone at [phone]. We discussed overall goals of care and they said that they want to support their father as he progresses through this illness. They appear realistic and have a goal to see how rehab goes at [facility] and based on the progression, if he does not tolerate well, will entertain a transition to hospice services. (2) Falls frequently: (3) Weakness: (4) Severe protein-calorie malnutrition: History of Present Illness Reason for Consultation: Goals of Care Requesting Physician: Dr. Soares Attending Physician: Woody Soares, DO History of Present Illness This is an 89 year old male who presented to the [facility] with hypotension and another fall. He has been experiencing multiple falls and has had multiple readmissions over the last month. Additional PMH includes: atrial fibrillation, diastolic CHF, prior CVA, frequent falls, known AAA, CKD stage III, and COPD. 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 A Laparoscopic Ileocecectomy was performed on 11/28 and he is recovery slowly. Palliative Medicine was consulted to discuss overall goals of care. Please see A/P for further details. Thanks for involving Palliative Medicine with this patient. Allergies Allergy/AdvReac Type Severity Reaction Status Date / Time Iodinated Contrast Media Allergy Severe ANAPHYLAXIS Verified 11/26/20 11:10 Sulfa (Sulfonamide Allergy Unknown UNKNOWN Verified 11/26/20 11:10 Antibiotics) Home Medications Medication Instructions Recorded Confirmed Type aspirin [Aspir-Low] 81 mg PO DAILY 11/22/20 11/22/20 History atorvastatin 40 mg PO HS 11/22/20 11/22/20 History bumetanide 2 mg PO QAM 11/22/20 11/22/20 History calcium citrate 200 mg PO BID 11/22/20 11/22/20 History cholecalciferol (vitamin D3) 125 mcg PO WK 11/22/20 11/22/20 History [Vitamin D3] docusate sodium [Colace] 100 mg PO BID 11/22/20 11/22/20 History ferrous sulfate 325 mg PO BID 11/22/20 11/22/20 History fluticasone propion-salmeterol 1 ea INHALATION BID 11/22/20 11/22/20 History [Advair Diskus] ipratropium-albuterol 3 ml INHALATION Q4H PRN 11/22/20 11/22/20 History methimazole 5 mg PO DAILY 11/22/20 11/22/20 History metoprolol succinate 25 mg PO DAILY 11/22/20 11/22/20 History multivitamin 1 tab PO DAILY 11/22/20 11/22/20 History pantoprazole 40 mg PO DAILY 11/22/20 11/22/20 History polyethylene glycol 3350 [Miralax] 17 g PO DAILY PRN 11/22/20 11/22/20 History potassium chloride 10 meq PO QPM 11/22/20 11/22/20 History Patient History Medical History (Updated 12/05/20 @ 11:01 by RADHA Butler) 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 Cancer lYMPHOMA Cholelithiasis Chronic obstructive pulmonary disease Congestive heart failure Depression GERD (gastroesophageal reflux disease) HTN (hypertension) Hypertension Hyperthyroidism Kidney stone Lymphoma Palliative care encounter Respiratory failure requiring intubation Severe protein-calorie malnutrition Status post placement of implantable loop recorder Stroke Weakness Surgical History History of cardiac cath Family History Unknown Myocardial infarction Social History Smoking Status: Never smoker Second Hand Exposure: No; Hx Alcohol Use: No Hx Substance Use: No Preferred Language: Azeri Communication Ability: Impaired Visual Impairment: Partially Limited Drug Safety Scientist Required: No Beliefs That Will Affect Care: None marital status: / Current Living Situation: Alone Current Living Situation Comment: caregiver 24 hour How many Children do You have: 6 Other Information That Helps Us Care for You: No Feels Safe at Home: Yes Safety Concerns: Feels Safe At This Time Assistive Devices: Walker Review of Systems Review of Systems: [place] System Assessment Scale: Pain: 1/3 Tiredness: 0/3 Anxiety: 1/3 Lack of Appetite: 1/3 SOB: 1/3 Palliative Performance Scale: 30% Physical Exam Constitutional: + frail appearing, cooperative and comfortable ENMT: Nose: + dry nasal mucous membranes Respiratory: normal respiratory effort, lungs clear to auscultation Auscultation: + diminished lung sounds Cardiovascular: Heart Sounds: normal S1 Extremities: normal capillary refill Gastrointestinal (Abdomen): Percussion/Palpation: + abdomen tender RIP draining clear yellow output Skin: + pallor Psychiatric: A+Ox3, euthymic affect Results & Data ([facility]) Vital Signs (Past 12 Hours) Vital Signs Temp Pulse Pulse Pulse Resp BP Pulse Ox 12/05/20 10:50 36.6 C 82 16 102/68 95 12/05/20 10:05 99 H 12/05/20 07:43 36.8 C 103 H 18 107/67 92 12/05/20 03:48 36.8 C 88 20 103/71 91 12/04/20 23:29 36.9 C 99 H 20 108/74 94 PG Care Time/CCT Total # of Minutes Spent Total Time Spent with Patient: Total time spent is greater than 50% in coordination of care (as documented) at patient's floor/unit and/or counseling patient: 100 minutes with > 50% of that time spent assessing the patient, discussing goals of care with family and collaborating with IDT Coding Level of Care Code 30593 Inpt Consult Level 4 Diagnoses Palliative care encounter Z51.5 Falls frequently R29.6 Weakness R53.1 Severe protein-calorie malnutrition E43 Time Spent (min) 100
[2020-12-05 12:31] LABS: Hematocrit (blood only) 29.4 % (42-52); Hemoglobin 8.8 g/dL (14.0-18.0); Mean Corpuscular Hemoglobin 26.6 pg (25-34); Mean Corpuscular Hgb Conc 29.9 g/dL (32-36); Mean Corpuscular Volume 88.8 fL (80-100); Mean Platelet Volume 9.8 fL (7.4-10.4); Nucleated RBC # (auto) 0.05 K/uL (0-0); Nucleated RBC % (auto) 0.7 %; Platelet Count 251 K/uL (130-400); RDW Coefficient of Variation 17.8 % (11.5-14.5); RDW Standard Deviation 57.9 fL (36.4-46.3); Red Blood Count 3.31 M/uL (4.7-6.1); White Blood Count 6.78 K/uL (4.8-10.8)
[2020-12-05 12:52] LABS: BUN Creatinine Ratio 28.4 (10-20); Calcium 7.3 mg/dl (8.5-10.1); Creatinine Clr Calc Pharmacy 64.8 ml/min; Est GFR (African American) 88.5 ml/min; Est GFR (Non-African American) 76.3 ml/min; Potassium 4.3 mmol/L (3.5-5.1)
--- NOTE | 2020-12-05 15:38 | Surgery Progress Note ---
Date of Service December 05, 2020 Assessment & Plan (1) Cecum mass: slow recovery. ileus per KUB. not unexpected. will make npo again. comfortable. his abdominal ascites may become an issue as well. depending on palliative care/family decisions may need to start TPN soon if bowel fx does not improve. Admission and Anticipated Discharge Date Admission Date: November 22, 2020 Subjective pt resting/sleeping. in no distress. per nursing no complaints today. no pain. Physical Exam Physical Exam: nad RIP with moderate amounts of serous ascitic fluid. incisions with some serous drainage as well. no sign of infection. abd: mild distension. Results & Data ([facility]) Vital Signs (Past 12 Hours) Vital Signs Temp Pulse Pulse Pulse Resp BP Pulse Ox 12/05/20 10:50 36.6 C 82 16 102/68 95 12/05/20 10:05 99 H 12/05/20 07:43 36.8 C 103 H 18 107/67 92 12/05/20 03:48 36.8 C 88 20 103/71 91 PG Care Time/CCT Total # of Minutes Spent Total Time Spent with Patient: Total time spent is greater than 50% in coordination of care (as documented) at patient's floor/unit and/or counseling patient: Coding Level of Care Code None Diagnoses Cecum mass K63.89
[2020-12-05] MEDS: PANTOprazole 40 MG TAB PO SCH (20:15)
[2020-12-06] MEDS: SODIUM CHLORIDE 0.9% 1000ML 1,000 ML IV SCH (06:07)
--- NOTE | 2020-12-06 08:46 | Surgery Progress Note ---
Date of Service December 06, 2020 Assessment & Plan (1) Cecum mass: awaiting repeat KUB. hopefully we can restart oral intake ....once ileus resolved should be able to advance diet. [facility] surgeons covering for weekend. Admission and Anticipated Discharge Date Admission Date: November 22, 2020 Subjective pt in chair. nad. angry/wants something to eat/drink. Had several bm's overnight apparently. no pain. no nausea. Physical Exam Physical Exam: alert. nad Abd: soft. nt. incisions look ok. RIP with serous/light yellow drainage. Results & Data ([facility]) Vital Signs (Past 12 Hours) Vital Signs Temp Pulse Resp BP Pulse Ox 12/06/20 07:22 36.6 C 106 H 18 100/68 94 12/05/20 22:59 36.8 C 94 H 18 95/69 L 94 PG Care Time/CCT Total # of Minutes Spent Total Time Spent with Patient: Total time spent is greater than 50% in coordination of care (as documented) at patient's floor/unit and/or counseling patient: Coding Level of Care Code None Diagnoses Cecum mass K63.89
--- NOTE | 2020-12-06 09:39 | XRay Report ---
KUB HISTORY: Acute generalized abdominal pain evaluate ileus. +bm's COMPARISON: KUB 12/05/2020 FINDINGS: Dilated air-filled loops of small bowel redemonstrated measuring up to approximately 5.8 cm , previously 5.0 cm. Gas and contrast is also noted within the colon. Skin brittaney of the pelvis with suture material within the mid abdomen. Surgical drain overlies the mid pelvis. Pleural effusions wi th left lung base opacities. No urolith identified. Degenerative changes of the spine, pelvis and hip s. No pneumatosis or pneumoperitoneum identified. IMPRESSION: Air-filled loops of large and small bowel redemonstrated with stable to mildly progressed dilation of the small bowel. Findings are suggestive of postoperative ileus. Partial small bowel obstruction is within the differential. Continued follow-up recommended. ACT 112: Negative or not required by law. The above report was generated using voice recognition software. It may contain grammatical, syntax o r spelling errors. Electronically signed by: Moshe Calzada M.D. 12/06/2020 9:38 AM
[2020-12-06] MEDS: METOPROLOL SUCC 25MG EXT REL TAB PO SCH (09:41)
[2020-12-06] MEDS: PANTOprazole 40 MG TAB PO SCH ×2 (09:42→20:58)
[2020-12-06] MEDS: methIMAzole 5 MG TABLET PO SCH (10:08)
[2020-12-06] MEDS: LIDOCAINE 5% 1 PATCH TD SCH (10:09)
[2020-12-06] MEDS ORDERED: TPN/PPN CONSULT PHARMACY PRN (13:13)
[2020-12-06] MEDS: D5W AND 1/2NSS 1,000 ML IV SCH (14:14)
--- NOTE | 2020-12-06 14:27 | XRay Report ---
XR chest 1V portable HISTORY: 89 years-old Male ppn initiation acute generalized abdominal pain with ileus. Chest pain. COMPARISON: KUB of same day, CT chest 11/26/2020, chest radiograph 11/24/2020 TECHNIQUE: Portable AP view of the chest FINDINGS: Cardiac silhouette is enlarged. Loop recorder device. Mild emphysema. Enlargement of the pulmonary ar teries suggestive of pulmonary artery hypertension. Layering pleural effusions with bibasilar opaciti es. No pneumothorax or overt pulmonary edema. Degenerative changes of the shoulders and spine. IMPRESSION: 1. Cardiomegaly with findings suggestive of pulmonary artery hypertension. 2. Layering pleural effusions with bibasilar opacities suggestive of atelectasis. 3. Emphysema. ACT 112: Negative or not required by law. The above report was generated using voice recognition software. It may contain grammatical, syntax o r spelling errors. Electronically signed by: Moshe Calzada M.D. 12/06/2020 2:26 PM
--- NOTE | 2020-12-06 21:18 | Hospitalist Progress Note ---
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 fib, diastolic CHF, prior CVA, frequent falls, known AAA, CKD stage III, and COPD; who presented to ER earlier today for concerns of low blood pressure. 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 Upper endoscopy shows hiatal hernia without evidence of bleeding source Regarding his iron deficiency patient will receive a dose of Venofer Hb has been stable all week, > 8 (4) SHAY (acute kidney injury): Acute Kidney Injury: Resolved -Cr 1.77 on admission -likely 2/2 anemia and hypotension with poor renal perfusion Cr is stable, electrolytes stable repeat BMP tomorrow for PPN purposes (5) Multiple rib fractures: Falls:Multiple Rib Fractures: right side, ribs 6 and 7 and L1 transverse process fracture -Incidentally noted on CT scan -patient recently admitted to hospital in [place] for this following recent fall Pain controlled with Ultram 50mg q4 PRN, Tylenol PRN -concerns regarding patient's safety given numerous falls, rib fractures possible sacral fracture. Family does not want the patient to go home due to safety issues due to falls and weakness, had a family meeting12/03 with son and daughter discussed with patient and family at the bedside will get palliative consult, discuss goals of care, POLST etc plan for SNF on discharge (6) Atrial fibrillation, permanent: Atrial Fibrillation:rate controlled low dose metoprolol resume PO Metoprolol -discontinue Eliquis in the setting of numerous falls, and anemia (7) History of CVA (cerebrovascular accident): Resume aspirin (8) Hyperlipidemia: Remains on atorvastatin (9) Diastolic CHF: Patient not having much issues with volume however we will continue his beta-josefina as treatment of his chronic diastolic heart failure (10) DVT prophylaxis: Patient is a DNR/DNI. SCDs (11) Severe protein-calorie malnutrition: not eating enough with ileus will start PPN tomorrow, need for a few days at least until oral intake improves Admission and Anticipated Discharge Date Admission Date: November 22, 2020 Subjective KUB this morning with worsening dilation of small bowel, some dilation of colon cannot rule out obstruction however, he had 2 liquid BM later in the day, decent size per RN, dark surgery wants him to be NPO, ice chips and meds no need for NGT as he is not nauseated at all will start PPN tomorrow, check BMP in AM, consulted pharmacy for today, start on D5W1/2NSS Review of Systems Review of Systems: All systems reviewed & are unremarkable except as noted in Subjective Physical Exam Constitutional: well developed, + thin, + frail appearing and comfortable; no acute distress ENMT: external ear and nose normal, oropharynx normal (NG tube in place) Neck: trachea midline, no thyromegaly Respiratory: normal respiratory effort; no respiratory distress and no cough Auscultation: + diminished lung sounds (bases); no rales, no rhonchi and no wheezes Cardiovascular: RRR, no murmur, no edema Gastrointestinal (Abdomen): Inspection/Auscultation: + abdomen distended and + hypoactive bowel sounds Percussion/Palpation: abdomen soft Musculoskeletal: Head/Neck/Chest: normocephalic, head atraumatic, neck supple and + localized rib tenderness (right 6/7 ribs) Extremities: extremities normal to inspection, + abnormal strength (generalized weakness) and + muscle atrophy; no cyanosis, no clubbing and no petechiae Skin: + turgor decreased and + dry skin; no rashes Neurologic: patellar DTR's 2+ bilat, sensation intact and PERRL, EOMI, accommodation nl, no face palsy, no dysarthria Psychiatric: A+Ox3, euthymic affect Lymphatic: no cervical or axillary lymphadenopathy Results & Data Results & Data ([facility]) Vital Signs (Past 12 Hours) Vital Signs Temp Pulse Resp BP Pulse Ox 12/06/20 15:16 36.5 C 70 16 106/69 90 Medications Administered Current Inpatient Medications Acetaminophen (Acetaminophen 325 Mg Tab) 650 mg PO Q4H PRN PRN Reason: Pain or Fever Stop: 12/22/20 21:50 Last Admin: 12/01/20 13:22 Dose: 650 mg Documented by: Al Hydrox/Mg Hydrox/Simethicone (Aluminum/Magnesium Susp 30 Ml Udc) 15 ml PO Q4H PRN PRN Reason: Dyspepsia Stop: 12/22/20 21:50 Dextrose/Sodium Chloride (D5w And 1/2nss) 1,000 mls @ 80 mls/hr IV .[id number] [facility] Stop: 01/05/21 13:44 Last Admin: 12/06/20 14:14 Dose: 80 mls/hr Documented by: Lidocaine (Lidocaine 5% 1 Patch) 1 patch TD [facility] Stop: 12/23/20 05:44 Last Admin: 12/06/20 10:09 Dose: Not Given Documented by: Methimazole (Methimazole 5 Mg Tablet) 5 mg PO DAILY [facility] Stop: 01/05/21 08:59 Last Admin: 12/06/20 10:08 Dose: 5 mg Documented by: Metoprolol Succinate (Metoprolol Succ 25mg Ext Rel Tab) 25 mg PO QAM [facility] Stop: 01/04/21 08:59 Last Admin: 12/06/20 09:41 Dose: 25 mg Documented by: Miscellaneous (Remove Lidoderm Patch) 1 ea N/A DAILY@2100 [facility] Stop: 12/23/20 20:59 Last Admin: 12/06/20 20:58 Dose: Not Given Documented by: Miscellaneous Information (Tpn/Ppn Consult Pharmacy) 1 ea N/A UD PRN PRN Reason: Consult Stop: 01/05/21 13:12 Pantoprazole Sodium (Pantoprazole 40 Mg Tab) 40 mg PO BID [facility] Stop: 12/26/20 20:59 Last Admin: 12/06/20 20:58 Dose: 40 mg Documented by: Phenol (Chloraseptic 1.4% Soln 180 Ml Btl) 2 sprays MT Q2HWA PRN PRN Reason: Sore Throat Stop: 01/01/21 11:25 PG Care Time/CCT Total # of Minutes Spent Total Time Spent with Patient: Total time spent is greater than 50% in coordination of care (as documented) at patient's floor/unit and/or counseling patient: Coding Level of Care Code 51995 Subseq Hosp Care Lvl 2 Diagnoses Postoperative ileus K91.89; K56.7 Cecum mass K63.89 Anemia D64.9 Anemia type: unspecified type SHAY (acute kidney injury) N17.9 Multiple rib fractures S22.41XA Encounter type: initial encounter Fracture type: closed Laterality: right Atrial fibrillation, permanent I48.21 History of CVA (cerebrovascular accident) Z86.73 Hyperlipidemia E78.5 Diastolic CHF I50.32 Heart failure chronicity: chronic DVT prophylaxis Z29.9 Severe protein-calorie malnutrition E43 (1) Anemia Anemia type: unspecified type Qualified Code(s): D64.9 - Anemia, unspecified (2) Multiple rib fractures Encounter type: initial encounter Fracture type: closed Laterality: right Qualified Code(s): S22.41XA - Multiple fractures of ribs, right side, initial encounter for closed fracture (3) Diastolic CHF Heart failure chronicity: chronic Qualified Code(s): I50.32 - Chronic diastolic (congestive) heart failure
[2020-12-07] MEDS: D5W AND 1/2NSS 1,000 ML IV SCH ×2 (02:31→17:19)
[2020-12-07 06:00] LABS: BUN Creatinine Ratio 20.6 (10-20); Calcium 6.9 mg/dl (8.5-10.1); Creatinine Clr Calc Pharmacy 61.4 ml/min; Est GFR (African American) 83.6 ml/min; Est GFR (Non-African American) 72.1 ml/min; Potassium 3.8 mmol/L (3.5-5.1)
[2020-12-07 06:01] LABS: Phosphorus 2.3 mg/dl (2.5-4.9)
--- NOTE | 2020-12-07 07:09 | XRay Report ---
KUB CLINICAL HISTORY: Evaluate for ileus. COMPARISON STUDY: CT of the abdomen and pelvis December 01, 2020. KUB December 06, 2020. FINDINGS: Skin brittaney are noted. There is a right lower quadrant surgical drain. Amount of gas withi n the colon has decreased. There is persistent moderate small bowel dilatation. Small left pleural ef fusion is noted. There's a trace right pleural effusion. IMPRESSION: Persistent moderate small bowel dilatation. Interval decrease in colonic gas. The findin gs may reflect a partial small bowel obstruction or postoperative ileus. ACT 112: Negative or not required by law. Electronically signed by: Yuan Augustine M.D. 12/07/2020 7:08 AM
[2020-12-07] MEDS ORDERED: POTASSIUM PHOS 3 MMOL/1 ML INFUSION IV STA (09:12)
[2020-12-07] MEDS: PANTOprazole 40 MG TAB PO SCH ×2 (09:23→21:59)
[2020-12-07] MEDS: METOPROLOL SUCC 25MG EXT REL TAB PO SCH (09:23)
[2020-12-07] MEDS: methIMAzole 5 MG TABLET PO SCH (09:25)
--- NOTE | 2020-12-07 09:25 | Pharmacy Report ---
Pharmacy PN Initial Consult - Date of Service December 07, 2020 - Scope Pharmacy has been consulted to manage parenteral nutrition orders and order appropriate labs. As part of the Nutrition Support Team guidelines, pharmacy will work in conjunction with dietary when determining the patients caloric needs. - Subjective The patient is a 89 year old M admitted on 11/22/20 20:55 for ANEMIA, HYPOTENSION. Patient is to receive parenteral nutrition for post op ileus- prolonged NPO. - Objective Height: 6 ft 1 in Weight: 87.1 kg Diet: NPO Intake & Output (Last 24Hrs): Intake & Output 12/05/20 12/06/20 12/07/20 12/08/20 06:59 06:59 06:59 06:59 Intake Total 1880 / 1880 1995.833 / 2945.151 0110.667 / 1332.667 Output Total 1180 / 1180 702 / 702 1041 / 1041 90 / 90 Balance 700 / 700 1293.833 / 1293.833 291.667 / 291.667 -90 / -90 Weight 91.1 kg 87.1 kg Laboratory Data (Last 24 Hrs):: 12/07/20 05:29 Sodium 142 Potassium 3.8 Chloride 111 H Carbon Dioxide 25 BUN 19 H Creatinine 0.94 Glucose 97 Calcium 6.9 L Phosphorus 2.3 L Magnesium 2.0 Nutrition Assessment:: Please refer to the Notes section of the EMR for the most recent legislative assistant note. - Plan For day 1 of PN administration, the following will be ordered: Macronutrients Amino acids 75 grams/day Dextrose 100 grams/day Lipids 50 grams/day Micronutrients Sodium phosphate 15 MMol *of note: provider also ordered KPhos 15 mmol x 1 this AM Sodium acetate 40 mEq Potassium acetate 40 mEq Magnesium sulfate 8.12 mEq Calcium gluconate 4.65 mEq Multivitamins 10 mL Trace Elements 10 mL Additional additives: Total volume 1608 mL to be infused over 24 hrs will provide 1140 kcal/day Final osmolarity 891.8 mOsm/L (maximum for PPN is 900 mOsm/L) Labs to be ordered per PN order protocol Pharmacy will follow and adjust parenteral nutrition orders on a daily basis. Thank you.
[2020-12-07] MEDS: LIDOCAINE 5% 1 PATCH TD SCH (09:31)
[2020-12-07] MEDS ORDERED: POTASSIUM PHOSPHATE 15 MMOL in SODIUM CHLORIDE 0.9% 250 ML IV ONE (09:45)
--- NOTE | 2020-12-07 10:07 | Surgery Progress Note ---
Date of Service December 07, 2020 Assessment & Plan (1) Cecum mass: Postoperative day #9 status post ileocecectomy and umbilical hernia repair Has developed ileus KUB shows decreased colonic air but there is still some small bowel dilatation He may have developed some swelling at the anastomosis Not taking p.o. well Would not advance diet at the present time Pain management effective Admission and Anticipated Discharge Date Admission Date: November 22, 2020 Subjective Postoperative day #9 status post laparoscopic ileocecectomy and repair of umbilical hernia for cecal mass. Having some crampy abdominal discomfort today Does not feel as good as he did yesterday Denies nausea however 1 bowel movement recorded overnight but the patient does not remember that Taking very little in the way of sips and chips RIP had 740 cc out yesterday and 420 cc out so far today, appears serous Physical Exam Constitutional: no acute distress Gastrointestinal (Abdomen): Inspection/Auscultation: + abdomen distended and + hypoactive bowel sounds Percussion/Palpation: + abdomen tender (Minimal incisional) and abdomen soft Results & Data ([facility]) Vital Signs (Past 12 Hours) Vital Signs Temp Pulse Resp BP Pulse Ox 12/07/20 07:21 36.5 C 57 L 16 112/79 96 12/06/20 22:52 36.6 C 96 H 20 103/67 93 Laboratory Results 12/07/20 12/07/20 12/07/20 Range/Units 05:59 05:29 00:07 Sodium 142 (136-145) mmol/L Potassium 3.8 (3.5-5.1) mmol/L Chloride 111 H (98-107) mmol/L Carbon Dioxide 25 (21-32) mmol/L Anion Gap 6.0 (3-11) BUN 19 H (7-18) mg/dl Creatinine 0.94 (0.6-1.4) mg/dl Est Cr Clr Drug Dosing 61.4 ml/min Est GFR ( Amer) 83.6 ml/min Est GFR (Non-Af Amer) 72.1 ml/min BUN/Creatinine Ratio 20.6 H (10-20) Glucose 97 (70-99) mg/dl POC Glucose 103 H 101 H (70-99) mg/dl Calcium 6.9 L (8.5-10.1) mg/dl Phosphorus 2.3 L (2.5-4.9) mg/dl Magnesium 2.0 (1.8-2.4) mg/dl Diagnostic Findings KUB CLINICAL HISTORY: Evaluate for ileus. COMPARISON STUDY: CT of the abdomen and pelvis December 01, 2020. KUB December 06, 2020. FINDINGS: Skin brittaney are noted. There is a right lower quadrant surgical drain. Amount of gas within the colon has decreased. There is persistent moderate small bowel dilatation. Small left pleural effusion is noted. There's a trace right pleural effusion. IMPRESSION: Persistent moderate small bowel dilatation. Interval decrease in colonic gas. The findings may reflect a partial small bowel obstruction or postoperative ileus.
--- NOTE | 2020-12-07 10:36 | Surgery Progress Note ---
Date of Service December 07, 2020 Assessment & Plan (1) Postoperative ileus: Status post formation of ileostomy and mucous fistula GI function has returned Hopefully appetite will improve and encourage p.o. We will try to develop analgesia regimen that will control his discomfort Encouraged ambulation Continue antibiotics Continue local wound care Admission and Anticipated Discharge Date Admission Date: November 22, 2020 Subjective Status post ileocecectomy for appendiceal mass in October. He then underwent exploratory laparotomy with takedown of anastomosis and formation of ileostomy and mucous fistula. Patient continues to have pain Ileostomy is functioning Has nausea on occasion Has decreased appetite that he relates to his pain Has not vomited Is now on soft diet Developed purulent drainage from the lower portion of incision which was then opened and wound care is following Physical Exam Gastrointestinal (Abdomen): Inspection/Auscultation: normal bowel sounds and + abdominal surgical incision; abdomen not distended Percussion/Palpation: abdomen soft; abdomen nontender Ileostomy appears healthy and is functioning, Inferior portion of incision is open. There is very little drainage at the present time Results & Data ([facility]) Vital Signs (Past 12 Hours) Vital Signs Temp Pulse Resp BP Pulse Ox 12/07/20 07:21 36.5 C 57 L 16 112/79 96 12/06/20 22:52 36.6 C 96 H 20 103/67 93 Laboratory Results 12/07/20 12/07/20 12/07/20 Range/Units 05:59 05:29 00:07 Sodium 142 (136-145) mmol/L Potassium 3.8 (3.5-5.1) mmol/L Chloride 111 H (98-107) mmol/L Carbon Dioxide 25 (21-32) mmol/L Anion Gap 6.0 (3-11) BUN 19 H (7-18) mg/dl Creatinine 0.94 (0.6-1.4) mg/dl Est Cr Clr Drug Dosing 61.4 ml/min Est GFR ( Amer) 83.6 ml/min Est GFR (Non-Af Amer) 72.1 ml/min BUN/Creatinine Ratio 20.6 H (10-20) Glucose 97 (70-99) mg/dl POC Glucose 103 H 101 H (70-99) mg/dl Calcium 6.9 L (8.5-10.1) mg/dl Phosphorus 2.3 L (2.5-4.9) mg/dl Magnesium 2.0 (1.8-2.4) mg/dl
--- NOTE | 2020-12-07 15:26 | Hospitalist Progress Note ---
Date of Service December 07, 2020 Assessment & Plan (1) Postoperative ileus: Matty Smiley is a 89-year-old male with past medical history significant for A. fib, diastolic CHF, prior CVA, frequent falls, known AAA, CKD stage III, and COPD; who presented with hypotension, now with postop ileus. Currently on PPN. Postoperative ileus Evident on KUB 12/04 bowel sounds hypoactive repeat KUB on 12/05 with worsening dilation of loops of small bowel, some distension of colon, improving on KUB 12/07 Has been having BMs no need for NG tube PPN started. defer to surgery on plan for abdomen Cecum mass: s/p right hemicolectomy by Dr. 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 Upper endoscopy shows hiatal hernia without evidence of bleeding source Regarding his iron deficiency patient will receive a dose of Venofer Hb has been stable all week, > 8 SHAY (acute kidney injury): Acute Kidney Injury: Resolved Cr 1.77 on admission likely 2/2 anemia and hypotension with poor renal perfusion Cr is stable, electrolytes stable Multiple rib fractures: Falls:Multiple Rib Fractures: right side, ribs 6 and 7 and L1 transverse process fracture Incidentally noted on CT scan patient recently admitted to [facility] in [place] for this following recent fall Pain controlled with Ultram 50mg q4 PRN, Tylenol PRN concerns regarding patient's safety given numerous falls, rib fractures possible sacral fracture. Family does not want the patient to go home due to safety issues due to falls and weakness, had a family meeting 12/03 with son and daughter discussed with patient and family at the bedside will get palliative consult, discuss goals of care, POLST etc plan for SNF on discharge Atrial fibrillation Atrial Fibrillation:rate controlled low dose metoprolol resume PO Metoprolol discontinue Eliquis in the setting of numerous falls, and anemia History of CVA (cerebrovascular accident): Resume aspirin Hyperlipidemia: Remains on atorvastatin Diastolic CHF: Patient not having much issues with volume however we will continue his beta- josefina as treatment of his chronic diastolic heart failure Severe protein-calorie malnutrition: not eating enough with ileus will start PPN tomorrow, need for a few days at least until oral intake improves Admission and Anticipated Discharge Date Admission Date: November 22, 2020 Supervising Physician Co-Signing Physician Notes Resident Physician Supervision Note: I independently interviewed and examined the patient and verified the tobias history and physical, reviewed labs and image studies and agree with resident Dr. Horton findings and care plan. Subjective Pt seen this AM, sleeping. Responds to verbal stimuli but nonverbal. Review of Systems Review of Systems: Unobtainable due to cognitive status Physical Exam Physical Exam: General: Resting comfortably Skin: No noted rashes or bruises Psych: cannot be determined Neuro: cannot be determined HEENT: NC/AT Chest: Nontender to palpation. CV: RRR, Normal s1, s2. Resp: Breath sounds clear bilaterally, no increased effort of breathing. Abdomen: Soft, nontender, nondistended. Extremities: No edema in lower extremities bilaterally. Results & Data Results & Data ([facility]) Vital Signs (Past 12 Hours) Vital Signs Temp Pulse Resp BP Pulse Ox 12/07/20 15:09 36.8 C 75 16 93/60 L 96 12/07/20 07:21 36.5 C 57 L 16 112/79 96 Resident Activity Tracking Resident Involvement: Resident Care Provided Care Provided: Adult Hospital Medicine
[2020-12-07] MEDS ORDERED: TPN IV SCH (16:00)
[2020-12-07] MEDS ORDERED: PERIPHERAL PN IV SCH (16:00)
[2020-12-07] MEDS ORDERED: DEXTROSE 10% 1,000 ML IV PRN (16:00)
[2020-12-08 06:51] LABS: BUN Creatinine Ratio 22.8 (10-20); Calcium 7.3 mg/dl (8.5-10.1); Creatinine Clr Calc Pharmacy 70.4 ml/min; Est GFR (African American) 91.5 ml/min; Phosphorus 2.8 mg/dl (2.5-4.9); Potassium 3.7 mmol/L (3.5-5.1)
[2020-12-08] MEDS: METOPROLOL SUCC 25MG EXT REL TAB PO SCH (08:20)
[2020-12-08] MEDS: PANTOprazole 40 MG TAB PO SCH ×2 (08:20→20:04)
[2020-12-08] MEDS: methIMAzole 5 MG TABLET PO SCH (08:20)
[2020-12-08] MEDS: LIDOCAINE 5% 1 PATCH TD SCH (08:22)
--- NOTE | 2020-12-08 08:29 | Pharmacy Report ---
PHA: Parenteral Nutrition Con - Date of Service December 08, 2020 - Scope Pharmacy was consulted on 12/07/20 to manage parenteral nutrition orders for this patient. - Subjective The patient is currently on day # 2 of peripheral parenteral nutrition for ileus- prolonged NPO. - Objective Height: 6 ft 1 in Weight: 87 kg Diet: NPO Intake & Output (24hrs):: Intake & Output 12/06/20 12/07/20 12/08/20 12/09/20 06:59 06:59 06:59 06:59 Intake Total 1994.833 / 3719.655 9287.667 / 9768.010 2553 / 1255 Output Total 702 / 702 1041 / 1041 951 / 951 Balance 1293.833 / 1293.833 291.667 / 291.667 304 / 304 Weight 87.1 kg 87 kg Laboratory Data (Last 24 Hr):: 12/07/20 12/08/20 13:17 05:54 Sodium 140 Potassium 3.7 Chloride 108 H Carbon Dioxide 23 BUN 19 H Creatinine 0.82 Glucose 123 H Calcium 7.3 L Phosphorus 2.8 Magnesium 2.0 Triglycerides 80 Nutrition Assessment:: Please refer to the Notes section of the EMR for the most recent medical record technician note. - Assessment * Chloride remains elevated - not adding any Cl to PPN; utilizing acetate salts * Pt received additional KPhos 15mmol yesterday per provider; will add this into PPN for today * Of note; BSG was 221 mg/dl this AM but all other BSGs WNL. I asked the RN to recheck the BSG since the GLU just a few min prior to the high BGS was normal. Recheck BSG was 116 mg/dl. Will NOT add insulin to PPN as this hyperglycemia was likely a device error. - Plan For day # 2of PN administration, the following will be ordered: Macronutrients Amino acids 75 grams/day Dextrose 100 grams/day Lipids 50 grams/day Micronutrients Sodium phosphate 15 MMol *of note: provider also ordered KPhos 15 mmol x 1 this AM Sodium acetate 40 mEq Potassium acetate 40 mEq Potassium phosphate 15 mMol Magnesium sulfate 8.12 mEq Calcium gluconate 4.65 mEq Multivitamins 10 mL Trace Elements 10 mL Additional additives: Thiamine 100mg + Folic Acis 1mg Total volume 1650 mL to be infused over 24 hrs will provide 1140 kcal/day Final osmolarity 891.5 mOsm/L (maximum for PPN is 900 mOsm/L) Labs, as indicated, will be ordered per protocol Pharmacy will continue to follow and adjust parenteral nutrition orders on a daily basis. Thank you for allowing us to participate in the care of this patient.
[2020-12-08] MEDS: ACETAMINOPHEN 325 MG TAB PO PRN ×2 (09:09→22:55)
--- NOTE | 2020-12-08 11:19 | Hospitalist Progress Note ---
Date of Service December 08, 2020 Assessment & Plan (1) Postoperative ileus: Matty Smiley is a 89-year-old male with past medical history significant for A. fib, diastolic CHF, prior CVA, frequent falls, known AAA, CKD stage III, and COPD; who presented with hypotension, now with postop ileus after surgery for a cecal mass. Currently on PPN. Goal to transition to rehab at [facility] in [place], and hospice will be considered at that time. Postoperative ileus Evident on KUB 12/04 bowel sounds hypoactive repeat KUB on 12/05 with worsening dilation of loops of small bowel, some distension of colon, improving on KUB 12/07 Has been having BMs no need for NG tube PPN started. defer to surgery on plan for abdomen Cecum mass: s/p right hemicolectomy by Dr. 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 Anemia: ABLA and chronic iron def as well - cecal mass the etiology pt was transfused 4 units Receive a dose of Venofer Hb has been stable all week, > 8 SHAY (acute kidney injury): Acute Kidney Injury: Resolved Cr 1.77 on admission likely 2/2 anemia and hypotension with poor renal perfusion Cr is stable, electrolytes stable Multiple rib fractures: Falls:Multiple Rib Fractures: right side, ribs 6 and 7 and L1 transverse process fracture Incidentally noted on CT scan patient recently admitted to [facility] in [place] for this following recent fall Pain controlled with Ultram 50mg q4 PRN, Tylenol PRN concerns regarding patient's safety given numerous falls, rib fractures possible sacral fracture. Family does not want the patient to go home due to safety issues due to falls and weakness, had a family meeting 12/03 with son and daughter Palliative consulted to discuss goals of care, POLST etc plan for SNF on discharge Atrial fibrillation Atrial Fibrillation:rate controlled low dose metoprolol resume PO Metoprolol discontinue Eliquis in the setting of numerous falls, and anemia History of CVA (cerebrovascular accident): Resume aspirin Hyperlipidemia: Remains on atorvastatin Diastolic CHF: Euvolemic continue beta-josefina Severe protein-calorie malnutrition: PPN started will mentation improving and better PO intake- to consider d/c PPN in am Admission and Anticipated Discharge Date Admission Date: November 22, 2020 Supervising Physician Co-Signing Physician Notes Resident Physician Supervision Note: I independently interviewed and examined the patient and verified the tobias history and physical, reviewed labs and image studies and agree with resident Dr. Horton findings and care plan. Subjective Pt sitting up at the bedside, more conversant this AM. States he is doing well, had questions about his nutrition. Review of Systems Review of Systems: All systems reviewed & are unremarkable except as noted in Subjective Physical Exam Physical Exam: General: Alert. No acute distress Skin: No noted rashes or bruises Psych: Appropriate mood and affect Neuro: No gross deficits HEENT: NC/AT Chest: Nontender to palpation. CV: RRR, Normal s1, s2. murmur appreciated Resp: Breath sounds clear bilaterally, no increased effort of breathing. Abdomen: Soft, nontender, nondistended. Extremities: No edema in lower extremities bilaterally. Results & Data Results & Data ([facility]) Vital Signs (Past 12 Hours) Vital Signs Temp Pulse Resp BP Pulse Ox 12/08/20 08:07 36.4 C L 64 18 100/68 98 Resident Activity Tracking Resident Involvement: Resident Care Provided Care Provided: Adult Hospital Medicine
--- NOTE | 2020-12-08 12:17 | Surgery Progress Note ---
Date of Service December 08, 2020 Assessment & Plan (1) Cecum mass: Postoperative day #10 status post ileocecectomy for cecal mass Peristalsis now seems to have returned Would begin clear liquid diet conservatively Begin to consider ambulation Admission and Anticipated Discharge Date Admission Date: November 22, 2020 Subjective Postoperative day 10 status post laparoscopic ileocecectomy and repair of umbilical hernia. Subjectively much better today Sitting up in bed and smiling Mental status much improved Denies nausea and vomiting Having very little abdominal pain Had at least 2 bowel movements 1 of which was large No melena or hematochezia Urine output as documented is noted however he has had urination in the bathroom that has not been measured Carlos A had 990 cc out yesterday and 190 cc out last shift all of which was serous Physical Exam Constitutional: no acute distress Gastrointestinal (Abdomen): Inspection/Auscultation: normal bowel sounds; abdomen not distended Percussion/Palpation: + abdomen tender (Minimal incisional) and abdomen soft Results & Data ([facility]) Vital Signs (Past 12 Hours) Vital Signs Temp Pulse Pulse Resp BP BP Pulse Ox 12/08/20 11:51 36.4 C L 91 H 18 116/70 95 12/08/20 08:07 36.4 C L 64 18 100/68 98 Laboratory Results 12/08/20 12/08/20 12/08/20 Range/Units 07:12 06:03 05:54 Sodium 140 (136-145) mmol/L Potassium 3.7 (3.5-5.1) mmol/L Chloride 108 H (98-107) mmol/L Carbon Dioxide 23 (21-32) mmol/L Anion Gap 9.0 (3-11) BUN 19 H (7-18) mg/dl Creatinine 0.82 (0.6-1.4) mg/dl Est Cr Clr Drug Dosing 70.4 ml/min Est GFR ( Amer) 91.5 ml/min Est GFR (Non-Af Amer) 79.0 ml/min BUN/Creatinine Ratio 22.8 H (10-20) Glucose 123 H (70-99) mg/dl POC Glucose 116 H 211 H (70-99) mg/dl Calcium 7.3 L (8.5-10.1) mg/dl Phosphorus 2.8 (2.5-4.9) mg/dl Magnesium 2.0 (1.8-2.4) mg/dl Triglycerides (0-150) mg/dl 12/07/20 12/07/20 12/07/20 Range/Units 23:59 19:07 13:17 Sodium (136-145) mmol/L Potassium (3.5-5.1) mmol/L Chloride (98-107) mmol/L Carbon Dioxide (21-32) mmol/L Anion Gap (3-11) BUN (7-18) mg/dl Creatinine (0.6-1.4) mg/dl Est Cr Clr Drug Dosing ml/min Est GFR ( Amer) ml/min Est GFR (Non-Af Amer) ml/min BUN/Creatinine Ratio (10-20) Glucose (70-99) mg/dl POC Glucose 116 H 88 (70-99) mg/dl Calcium (8.5-10.1) mg/dl Phosphorus (2.5-4.9) mg/dl Magnesium (1.8-2.4) mg/dl Triglycerides 80 (0-150) mg/dl
[2020-12-08] MEDS ORDERED: TPN IV SCH (16:00)
[2020-12-08] MEDS ORDERED: PERIPHERAL PN IV SCH (16:00)
[2020-12-09 07:51] LABS: BUN Creatinine Ratio 23.8 (10-20); Calcium 6.5 mg/dl (8.5-10.1); Creatinine Clr Calc Pharmacy 71.2 ml/min; Est GFR (Non-African American) 79.4 ml/min; Magnesium 2.2 mg/dl (1.8-2.4); Phosphorus 2.8 mg/dl (2.5-4.9); Potassium 3.6 mmol/L (3.5-5.1)
--- NOTE | 2020-12-09 08:32 | Surgery Progress Note ---
Date of Service December 09, 2020 Assessment & Plan (1) Cecum mass: doing much better. will advance diet to low fiber. d/c RIP. Admission and Anticipated Discharge Date Admission Date: November 22, 2020 Subjective pt seen. feeling well. hungry. krishna liquids yesterday. +multiple bm's over weekend. Physical Exam Physical Exam: alert. nad abd: soft. nt. RIP with yellow/serous output. wounds healing. Results & Data ([facility]) Vital Signs (Past 12 Hours) Vital Signs Temp Pulse Resp BP Pulse Ox 12/09/20 04:04 94 12/08/20 22:10 36.8 C 63 18 93/54 L 94 PG Care Time/CCT Total # of Minutes Spent Total Time Spent with Patient: Total time spent is greater than 50% in coordination of care (as documented) at patient's floor/unit and/or counseling patient: Coding Level of Care Code None Diagnoses Cecum mass K63.89
[2020-12-09] MEDS: PANTOprazole 40 MG TAB PO SCH ×2 (09:24→20:57)
[2020-12-09] MEDS: methIMAzole 5 MG TABLET PO SCH (09:25)
[2020-12-09] MEDS: METOPROLOL SUCC 25MG EXT REL TAB PO SCH (09:25)
[2020-12-09] MEDS: LIDOCAINE 5% 1 PATCH TD SCH (09:27)
--- NOTE | 2020-12-09 12:15 | Palliative Care Progress Note ---
Date of Service December 09, 2020 Assessment & Plan Admission and Anticipated Discharge Date Admission Date: November 22, 2020 Review of Systems Review of Systems: [facility] System Assessment Scale: Pain: 1/3 Tiredness: 0/3 Anxiety: 1/3 Lack of Appetite: 1/3 SOB: 1/3 Palliative Performance Scale: 30% Physical Exam Constitutional: + frail appearing, cooperative and comfortable ENMT: Nose: + dry nasal mucous membranes Respiratory: normal respiratory effort, lungs clear to auscultation Auscultation: + diminished lung sounds Cardiovascular: Heart Sounds: normal S1 Extremities: normal capillary refill Gastrointestinal (Abdomen): Percussion/Palpation: + abdomen tender Skin: + pallor Psychiatric: A+Ox3, euthymic affect Results & Data ([facility]) Vital Signs (Past 12 Hours) Vital Signs Temp Pulse Resp BP Pulse Ox 12/09/20 08:42 36.8 C 73 18 107/62 91 12/09/20 04:04 94 PG Care Time/CCT Total # of Minutes Spent Total Time Spent with Patient: Total time spent is greater than 50% in coordination of care (as documented) at patient's floor/unit and/or counseling patient: Coding
[2020-12-09] MEDS ORDERED: TPN IV SCH (16:00)
[2020-12-09] MEDS ORDERED: PERIPHERAL PN IV SCH (16:00)
--- NOTE | 2020-12-09 18:46 | Hospitalist Progress Note ---
Date of Service December 09, 2020 Assessment & Plan (1) Postoperative ileus: Matty Smiley is a 89-year-old male with past medical history significant for A. fib, diastolic CHF, prior CVA, frequent falls, known AAA, CKD stage III, and COPD; who presented with hypotension, now with postop ileus after surgery for a cecal mass. Goal to transition to rehab at [facility] in [place], and hospice will be considered after transition. Postoperative ileus - improving diet advanced to low fiber today doing well, no nausea Cecum mass s/p resection POD 10 s/p right hemicolectomy by Dr. 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 Upper endoscopy shows hiatal hernia without evidence of bleeding source continue monitoring Hg SHAY (acute kidney injury): resolved likely 2/2 anemia and hypotension with poor renal perfusion Cr is stable, electrolytes stable Goals of Care: concerns regarding patient's safety given numerous falls, rib fractures possible sacral fracture. Family does not want the patient to go home due to safety issues discussed with patient and family at the bedside appreciate palliative's support with discussion of POLST, Goals of care. plan for SNF on discharge Multiple rib fractures: Falls:Multiple Rib Fractures: right side, ribs 6 and 7 and L1 transverse process fracture Incidentally noted on CT scan patient recently admitted to [facility] in [place] for this following recent fall Pain controlled with Ultram 50mg q4 PRN, Tylenol PRN Atrial fibrillation Atrial Fibrillation:rate controlled low dose metoprolol resume PO Metoprolol discontinue Eliquis in the setting of numerous falls, and anemia History of CVA (cerebrovascular accident): Resume aspirin Hyperlipidemia: Remains on atorvastatin Diastolic CHF: Patient not having much issues with volume however we will continue his beta- josefina as treatment of his chronic diastolic heart failure Severe protein-calorie malnutrition: restarted low fiber meals beverage supplements with meals DVT ppx: SCDs, ambulation. chemical contraindicated with anemia and falls FEN/GI: low fiber diet Code Status:DNR/DNI Dispo: auth pending for inpt rehab at [facility] and possibly hospice after. Admission and Anticipated Discharge Date Admission Date: November 22, 2020 Supervising Physician Co-Signing Physician Notes I also saw the patient and confirmed tobias portions of the history and exam. I agree with the impression and plan as noted in the resident documentation. Upon on our afternoon visit, he was without complaints and looking forward to discharge. Tolerating PO without difficulty. Hemodynamically stable. Prolonged post-operative ileus, now resolved. Difficult to say - multifactorial and likely related to surgery, compounded by age, decreased mobility, and medications. Awaiting insurance authorization for placement. Subjective feeling very well this morning. had multiple BMs over the weekend. did well with clear liquids last night. excited to eat lunch. Review of Systems Constitutional: no fever, no chills, no sweats and no fatigue Ear, Nose, Mouth, Throat: no hearing loss and no nasal congestion Respiratory: no cough and no dyspnea Cardiovascular: no chest pain, no dyspnea on exertion and no edema Gastrointestinal: no abdominal pain, no nausea, no vomiting, no constipation, no diarrhea/loose stools and no blood in stools Physical Exam Physical Exam: Constitutional: in no apparent distress, sitting comfortably in chair Eyes: EOMI, pupils equal and reactive bilaterally, no scleral icterus Cardiac: RRR, no murmurs, gallops or rubs. Normal S1, S2 Pulm: CTA BL, no wheezes, rhonchi, crackles or rubs, moving air well throughout both lungs Abd: soft, nontender, mildly distended, normal bowel sounds, no rebound or guarding, incisions healing well with mild serous discharge Extremities: 2+ peripheral pulses, no edema Neuro: no focal deficits, moving all 4 limbs, A&Ox3 Results & Data Results & Data ([facility]) Vital Signs (Past 12 Hours) Vital Signs Temp Pulse Resp BP BP Pulse Ox 12/09/20 16:19 36.5 C 71 16 91/53 L 87/56 L 95 12/09/20 08:42 36.8 C 73 18 107/62 91 Laboratory Results WBC 6.78 K/uL (4.8-10.8) 12/05/20 12:04 RBC 3.31 M/uL (4.7-6.1) L 12/05/20 12:04 Hgb 8.8 g/dL (14.0-18.0) L 12/05/20 12:04 Hct 29.4 % (42-52) L 12/05/20 12:04 MCV 88.8 fL (80-100) 12/05/20 12:04 MCH 26.6 pg (25-34) 12/05/20 12:04 MCHC 29.9 g/dL (32-36) L 12/05/20 12:04 RDW Std Deviation 57.9 fL (36.4-46.3) H 12/05/20 12:04 RDW Coeff of Jennifer 17.8 % (11.5-14.5) H 12/05/20 12:04 Plt Count 251 K/uL (130-400) 12/05/20 12:04 MPV 9.8 fL (7.4-10.4) 12/05/20 12:04 Immature Gran % (Auto) 0.3 % 12/03/20 05:45 Neut % (Auto) 72.6 % 12/03/20 05:45 Lymph % (Auto) 11.1 % 12/03/20 05:45 Sterling % (Auto) 15.1 % 12/03/20 05:45 Eos % (Auto) 0.9 % 12/03/20 05:45 Baso % (Auto) 0.0 % 12/03/20 05:45 Neut # (Auto) 5.47 K/uL (1.4-6.5) 12/03/20 05:45 Lymph # (Auto) 0.84 K/uL (1.2-3.4) L 12/03/20 05:45 Sterling # (Auto) 1.14 K/uL (0.11-0.59) H 12/03/20 05:45 Eos # (Auto) 0.07 K/uL (0-0.5) 12/03/20 05:45 Baso # (Auto) 0.00 K/uL (0-0.2) 12/03/20 05:45 Immature Gran # (Auto) 0.02 K/uL (0.00-0.02) 12/03/20 05:45 Absolute Nucleated RBC 0.05 K/uL (0-0) H 12/05/20 12:04 Nucleated RBC % (auto) 0.7 % 12/05/20 12:04 Polychromasia 1+ 12/01/20 06:17 Hypochromasia Present 11/24/20 06:51 Anisocytosis Present 11/29/20 06:29 Microcytosis Present 11/24/20 06:51 Target Cells 1+ 11/24/20 06:51 Ovalocytes 1+ 11/29/20 06:29 Schistocytes 1+ 11/22/20 17:38 PT 13.1 Seconds (9.0-12.0) H 11/22/20 17:38 INR 1.3 (0.9-1.1) H 11/22/20 17:38 APTT 26.6 Seconds (21.0-31.0) 11/22/20 17:38 PTT Ratio 1.0 11/22/20 17:38 Sodium 139 mmol/L (136-145) 12/09/20 06:42 Potassium 3.6 mmol/L (3.5-5.1) 12/09/20 06:42 Chloride 106 mmol/L (98-107) 12/09/20 06:42 Carbon Dioxide 26 mmol/L (21-32) 12/09/20 06:42 Anion Gap 7.0 (3-11) 12/09/20 06:42 BUN 19 mg/dl (7-18) H 12/09/20 06:42 Creatinine 0.81 mg/dl (0.6-1.4) 12/09/20 06:42 Est Cr Clr Drug Dosing 71.2 ml/min 12/09/20 06:42 Est GFR ( Amer) 92.0 ml/min 12/09/20 06:42 Est GFR (Non-Af Amer) 79.4 ml/min 12/09/20 06:42 BUN/Creatinine Ratio 23.8 (10-20) H 12/09/20 06:42 Glucose 109 mg/dl (70-99) H 12/09/20 06:42 POC Glucose 273 mg/dl (70-99) H 12/09/20 11:48 Calcium 6.5 mg/dl (8.5-10.1) L 12/09/20 06:42 Phosphorus 2.8 mg/dl (2.5-4.9) 12/09/20 06:42 Magnesium 2.2 mg/dl (1.8-2.4) 12/09/20 06:42 Iron 23 mcg/dl (35-175) L 11/26/20 06:18 TIBC 456 mcg/dl (250-450) H 11/26/20 06:18 Total Bilirubin 1.1 mg/dl (0.2-1) H 12/03/20 05:45 Direct Bilirubin 0.7 mg/dl (0-0.2) H 12/02/20 05:27 AST 26 U/L (15-37) 12/03/20 05:45 ALT 17 U/L (12-78) 12/03/20 05:45 Alkaline Phosphatase 120 U/L (45-117) H 12/03/20 05:45 Lactate Dehydrogenase 282 U/L (87-241) H 11/26/20 06:18 Total Protein 4.6 gm/dl (6.4-8.2) L 12/03/20 05:45 Albumin 2.1 gm/dl (3.4-5.0) L 12/03/20 05:45 Globulin 2.5 gm/dl (2.5-4.0) 12/03/20 05:45 Albumin/Globulin Ratio 0.9 (0.9-2) 12/03/20 05:45 Triglycerides 80 mg/dl (0-150) 12/07/20 13:17 Urine Color Yellow 11/22/20 19:41 Urine Appearance Clear (Clear) 11/22/20 19:41 Urine pH 5.0 (4.5-7.5) 11/22/20 19:41 Ur Specific Diboll 1.014 (1.000-1.030) 11/22/20 19:41 Urine Protein Negative (Negative) 11/22/20 19:41 Urine Glucose (UA) Negative (Negative) 11/22/20 19:41 Urine Ketones Negative (Negative) 11/22/20 19:41 Urine Blood Negative (Negative) 11/22/20 19:41 Urine Nitrite Negative (Negative) 11/22/20 19:41 Urine Bilirubin Negative (Negative) 11/22/20 19:41 Urine Urobilinogen Negative (Negative) 11/22/20 19:41 Ur Leukocyte Esterase Negative (Negative) 11/22/20 19:41 Ur Random Creatinine < 13.0 mg/dl 12/01/20 15:30 Stool Occult Bld Scrn Positive (Negative) A 12/05/20 08:00 COVID-19 Eval Order Covid19 at [facility] 11/22/20 17:20 SARS-CoV-2 (PCR) NEGATIVE (Negative) 11/22/20 17:20 Blood Type O Positive 12/01/20 08:18 Antibody Screen NEGATIVE 12/01/20 08:18 Crossmatch See Detail 12/01/20 08:[address] 11/22/20 17:06 CT SCAN OF THE CERVICAL SPINE CLINICAL HISTORY: Fall. COMPARISON STUDY: CT of the cervical spine dated 06/24/2018. TECHNIQUE: CT scan of the cervical spine is performed from the skull base to the upper thoracic spine. Images are reviewed in the axial, sagittal, and coronal planes. IV contrast was not administered for this examination. A dose lowering technique was utilized adhering to the principles of ALARA. CT DOSE: 3196.59 mGy.cm FINDINGS: Skeletal structures: The skeletal structures are osteopenic. There is no evidence of fracture or subluxation involving the cervical spine. Vertebral body height is maintained. There is minimal retrolisthesis at C4-C5. Minimal anterolisthesis is seen at C5-C6, C6-C7, and C7-T1. Anterior osteophytes are seen throughout. There is straightening of the cervical lordosis. The odontoid process and lateral masses are intact. The atlantoaxial articulation is preserved noting productive degenerative change. The spinous processes appear intact. There is moderate to advanced multilevel cervical spondylosis. Uncovertebral and facet arthropathy contribute to neural foraminal stenosis at most levels. Intervertebral discs: There is moderate to advanced disc space narrowing all levels between C3-C4 and C7-T1. Central canal: Grossly patent. Soft tissues: The prevertebral and paraspinous soft tissues are within normal limits. The thyroid gland is enlarged and heterogeneous. There are numerous thyroid nodules which measure up to 2.4 cm. These are unchanged from 2018. There is atherosclerotic calcification of the carotid bulbs. Calvarium: The visualized calvarium at the skull base appears intact. Brain parenchyma: Partially visualized brain parenchyma at the skull base is within normal limits noting age-related involutional change. Sinuses and mastoids: There is trace mucosal thickening in the right maxillary antrum. The mastoid air cells are well pneumatized. Lung apices: Emphysematous change is noted. IMPRESSION: 1. There is no evidence of fracture or subluxation involving the cervical spine. 2. Osteopenia and spondylotic change as above. ACT 112: Negative or not required by law. Electronically signed by: Naseem Gonzalez M.D. 11/22/2020 7:[address] 11/22/20 17:06 CT SCAN OF THE BRAIN WITHOUT IV CONTRAST CLINICAL HISTORY: Fall. COMPARISON STUDY: CT of the brain dated 10/26/2020. TECHNIQUE: Unenhanced axial CT scan of the brain is performed from the vertex to the skull base. A dose lowering technique was utilized adhering to the principles of ALARA. FINDINGS: Brain parenchyma: A focus of high left parietal encephalomalacia is consistent with a remote insult. There are age-related involutional changes noting cfux-fu-[id number] subcortical and periventricular microangiopathic change. There is no hemorrhage, mass effect, or evidence of acute territorial ischemia by CT criteria. 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 Villanueva-white matter differentiation is preserved. No extra-axial fluid collection is seen. Ventricles, sulci, cisterns: Prominent secondary to involutional change. Intracranial vasculature: There is atherosclerotic calcification of the cavernous carotid arteries. Calvarium: The skeletal structures are osteopenic. No depressed calvarial fracture is identified. Sinuses and mastoids: The paranasal sinuses are clear. The mastoid air cells are well pneumatized. Orbits: The bony orbits are grossly intact. There are bilateral ocular lens implants. IMPRESSION: There is no hemorrhage, mass effect, or evidence of acute territorial ischemia by CT criteria. ACT 112: Negative or not required by law. Electronically signed by: Naseem Gonzalez M.D. 11/22/2020 6:37 PM Hip X-Ray 11/22/20 17:06 RIGHT HIP 2 VIEWS CLINICAL HISTORY: Fall. Right hip pain. FINDINGS: AP and crosstable lateral views of the right hip are compared to study dated 12/16/2018. The skeletal structures are osteopenic. No fracture is seen involving the right hip or the visualized right hemipelvis. Mild to moderate degenerative joint space narrowing is seen in the right hip. The overlying soft tissues are normal as visualized. IMPRESSION: No acute bony abnormality is identified. Electronically signed by: Naseem Gonzalez M.D. 11/22/2020 5:[address] 11/26/20 15:18 CT chest diagnostic wo con CLINICAL HISTORY: metastatic evaluation, LYMPHOMA COMPARISON STUDY: Chest x-ray dated 11/24/2020, CT scan dated 12/17/2018 CT DOSE: 579.84 mGycm TECHNIQUE: CT of the thorax was performed from the thoracic inlet to the lung bases. Images are reviewed in the axial, sagittal, and coronal planes. IV contrast was not administered for this examination. A dose lowering technique was utilized adhering to the principles of ALARA. FINDINGS: Thyroid: There is a multinodular thyroid goiter, similar to the preceding study. Thoracic aorta: There is aneurysmal dilatation of the ascending thoracic aorta which measures 45 mm the level of the main pulmonary artery. Heart: The heart is enlarged with coronary calcifications. There is a trace pericardial effusion. 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 Lungs and pleural spaces: There are ojgpr-gn-hixsvkma bilateral pleural effusions. There is mild dependent compressive atelectatic change. Mediastinum: There is no mediastinal lymphadenopathy. There is no evidence of pathologic mediastinal lymphadenopathy. Sameera: There is no evidence of pathologic hilar adenopathy given the limitations of a noncontrast study Axilla: There is no evidence of pathologic axillary lymphadenopathy. Upper abdomen: There is a hiatal hernia. Skeletal structures: There are mild superior endplate upper thoracic compression deformities which appear old. There are acute/subacute fractures of the right lateral sixth and seventh ribs. There is acute/subacute fracture of the left L1 transverse process. Correlate with any history of recent trauma. IMPRESSION: 1. No evidence of pathologic adenopathy 2. Cardiomegaly and coronary artery calcifications 3. Aneurysmal dilatation of the ascending thoracic aorta which measures 45 mm 4. 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 Lqbrx-yv-mnvrwyku bilateral pleural effusions with associated lower lobe compressive atelectasis 6. Hiatal hernia 7. Persistent multinodular thyroid goiter. 8. Acute/subacute fractures of the right lateral sixth and seventh ribs. Acu te/subacute fracture of the left L1 transverse process. Correlation with traumatic history recommended. ACT 112: Negative or not required by law. Electronically signed by: Ganesh Dimas M.D. 11/26/2020 4:49 PM Abdomen/Pelvis CT 12/01/20 15:20 CT SCAN OF THE ABDOMEN AND PELVIS WITHOUT CONTRAST CLINICAL HISTORY: eval for ureteral leaking COMPARISON STUDY: November 22, 2020 TECHNIQUE: CT scan of the abdomen and pelvis was performed from the lung bases to the proximal femurs. Images are reviewed in the axial, sagittal, and coronal planes. IV contrast was not administered for this examination. A dose lowering technique was utilized adhering to the principles of ALARA. CT DOSE: 1061.10 mGycm FINDINGS: Lower chest: Moderate bilateral pleural effusion and compressive atelectasis at the dependent portions of bilateral lower lobes slightly worsened since prior study. Four-chamber cardiomegaly. Calcifications of carotid arteries and aortic valve are again seen. Liver: The unenhanced liver is normal in size, contour, and attenuation. There is no intrahepatic biliary ductal dilatation. Gallbladder: Gallbladder is mildly dilated. Small calcifications at dependent portions of the gallbladder are again seen. Spleen: Normal in size and attenuation. Pancreas: Unremarkable. Adrenal glands: Unremarkable. Kidneys: The unenhanced kidneys are normal in size without hydronephrosis. There is no contour deforming renal mass lesion. No renal calculi are identified. Redemonstration of the hypoattenuating lesion within slightly atrophic right renal cortex is unchanged since recent prior study and show minimal wall calcifications. Bowel: Large hiatal hernia is again seen. Bowel loops are nondilated. Postoperative changes are seen within right upper quadrant. Percutaneous abdominal catheter is seen with entrance through the left lower abdominal wall. Peritoneum: Small amount of free air is seen between the right lobe of the liver and the right lateral chest wall as well as within right upper abdomen which could be related to recent surgery. Interval development of diffuse mesenteric and subcutaneous edema. Bilateral fat-containing inguinal hernias are seen. Small amount of gas collection is seen within the right inguinal hernia (3/450). Vasculature: Aorta is tortuous and calcified. Redemonstration of large fusiform abdominal aortic aneurysm measuring 6.7 x 4.8 cm on axial dimension (3/160) which is not significantly changed since recent prior study. Evaluation of abdominal aorta is limited on this nondedicated nonenhanced exam. Adenopathy: None. Pelvic viscera: Urinary bladder is decompressed with Root balloon within its lumen. Prostate gland is not well seen, probably surgically absent. Skeletal structures: Osteopenia and degenerative changes of the spine. There is degenerative changes of the spine. IMPRESSION: 1. Interval postsurgical changes within loop of large bowel within the right hemiabdomen. Small amount of free intra-abdominal gas is seen as well as percutaneous drainage catheter. 2. Interval worsening of mesenteric edema. Interval development of anasarca. 3. Small amount of free gas is seen within fat-containing right inguinal hernia. 4. Large hiatal hernia. 5. Bilateral pleural effusion associated with atelectasis/infiltrate at bilateral bases. 6. Stable cardiomegaly. 7. Stable abdominal aortic aneurysm. 8. Urinary bladder is decompressed with Root balloon within its lumen. 9. Cholelithiasis. No evidence of cholecystitis. ACT 112: Negative or not required by law. The above report was generated using voice recognition software. It may contain grammatical, syntax or spelling errors. Electronically signed by: Laila Barros DO 12/01/2020 7:23 PM Chest X-Ray 12/06/20 13:16 XR chest 1V portable HISTORY: 89 years-old Male ppn initiation acute generalized abdominal pain with ileus. Chest pain. COMPARISON: KUB of same day, CT chest 11/26/2020, chest radiograph 11/24/2020 TECHNIQUE: Portable AP view of the chest FINDINGS: Cardiac silhouette is enlarged. Loop recorder device. Mild emphysema. Enlargement of the pulmonary arteries suggestive of pulmonary artery hypertension. Layering pleural effusions with bibasilar opacities. No pneumothorax or overt pulmonary edema. Degenerative changes of the shoulders and spine. IMPRESSION: 1. Cardiomegaly with findings suggestive of pulmonary artery hypertension. 2. Layering pleural effusions with bibasilar opacities suggestive of atelectasis. 3. Emphysema. ACT 112: Negative or not required by law. The above report was generated using voice recognition software. It may contain grammatical, syntax or spelling errors. Electronically signed by: Moshe Calzada M.D. 12/06/2020 2:26 PM KUB X-Ray 12/07/20 07:00 KUB CLINICAL HISTORY: Evaluate for ileus. COMPARISON STUDY: CT of the abdomen and pelvis December 01, 2020. KUB December 06, 2020. FINDINGS: Skin brittaney are noted. There is a right lower quadrant surgical drain. Amount of gas within the colon has decreased. There is persistent moderate small bowel dilatation. Small left pleural effusion is noted. There's a trace right pleural effusion. IMPRESSION: Persistent moderate small bowel dilatation. Interval decrease in colonic gas. The findings may reflect a partial small bowel obstruction or postoperative ileus. ACT 112: Negative or not required by law. Electronically signed by: Yuan Augustine M.D. 12/07/2020 7:08 AM Resident Activity Tracking Resident Involvement: Resident Care Provided Care Provided: Adult Hospital Medicine
[2020-12-10 07:22] LABS: BUN Creatinine Ratio 22.2 (10-20); Calcium 7.1 mg/dl (8.5-10.1); Creatinine Clr Calc Pharmacy 70.4 ml/min; Est GFR (African American) 91.5 ml/min; Phosphorus 2.7 mg/dl (2.5-4.9); Potassium 3.5 mmol/L (3.5-5.1)
--- NOTE | 2020-12-10 07:54 | Surgery Progress Note ---
Date of Service December 10, 2020 Assessment & Plan (1) Cecum mass: POD 12 ileocecectomy remove skin brittaney d/c planning, ok for d/c from surgical standpoint, can f/u prn as above. hold on staple removal for 2 more days...can take out in office. agree...pt can be discharged from our standpoint. bowels moving/krishna diet. Admission and Anticipated Discharge Date Admission Date: November 22, 2020 Subjective tolerating low fiber diet, anticipating rehab Physical Exam Gastrointestinal (Abdomen): Inspection/Auscultation: abdomen not distended Percussion/Palpation: abdomen soft Results & Data ([facility]) Vital Signs (Past 12 Hours) Vital Signs Temp Pulse Resp BP Pulse Ox 12/10/20 07:15 36.6 C 66 16 106/68 91 12/09/20 23:23 36.7 C 74 18 100/67 94 PG Care Time/CCT Total # of Minutes Spent Total Time Spent with Patient: Total time spent is greater than 50% in coordination of care (as documented) at patient's floor/unit and/or counseling patient: Coding Level of Care Code None Diagnoses Cecum mass K63.89
[2020-12-10] MEDS: METOPROLOL SUCC 25MG EXT REL TAB PO SCH (09:29)
[2020-12-10] MEDS: methIMAzole 5 MG TABLET PO SCH (09:29)
[2020-12-10] MEDS: LIDOCAINE 5% 1 PATCH TD SCH (09:30)
[2020-12-10] MEDS: PANTOprazole 40 MG TAB PO SCH ×2 (09:32→21:58)
--- NOTE | 2020-12-10 12:19 | Hospitalist Progress Note ---
Date of Service December 10, 2020 Assessment & Plan (1) Postoperative ileus: Matty Smiley is a 89-year-old male with past medical history significant for A. fib, diastolic CHF, prior CVA, frequent falls, known AAA, CKD stage III, and COPD; who presented with hypotension, now with postop ileus after surgery for a cecal mass. Goal to transition to rehab at [facility] in [place], and hospice will be considered after transition. Postoperative ileus - resolved tolerating low fiber today doing well, no nausea. recommned high protein boost beverages with each meal for severe protein calorie malnutrition. Cecum mass s/p resection POD 11 s/p right hemicolectomy by Dr. 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 Brook to be removed in outpt surgery clinic on 12/13. Anemia s/p 4u transfusion and venofer Iron deficiency and acute blood loss anemia from likely appendiceal mass Colonoscopy shows appendiceal mass there are diverticula without evidence of acute bleeding. Upper endoscopy shows hiatal hernia without evidence of bleeding source continue monitoring Hg SHAY (acute kidney injury): resolved likely 2/2 anemia and hypotension with poor renal perfusion Cr is stable, electrolytes stable Goals of Care: concerns regarding patient's safety given numerous falls, rib fractures possible sacral fracture. Family does not want the patient to go home due to safety issues discussed with patient and family at the bedside appreciate palliative's support with discussion of POLST, Goals of care. plan for SNF on discharge Multiple rib fractures: Falls:Multiple Rib Fractures: right side, ribs 6 and 7 and L1 transverse process fracture Incidentally noted on CT scan patient recently admitted to [facility] in [place] for this following recent fall Pain controlled with Ultram 50mg q4 PRN, Tylenol PRN Atrial fibrillation Atrial Fibrillation:rate controlled low dose metoprolol resume PO Metoprolol discontinue Eliquis in the setting of numerous falls, and anemia History of CVA (cerebrovascular accident): Resume aspirin Hyperlipidemia: Remains on atorvastatin Diastolic CHF: Patient not having much issues with volume however we will continue his beta- josefina as treatment of his chronic diastolic heart failure Severe protein-calorie malnutrition: restarted low fiber meals beverage supplements with meals DVT ppx: SCDs, ambulation. chemical contraindicated with anemia and falls FEN/GI: low fiber diet Code Status:DNR/DNI Dispo: auth pending for inpt rehab at [facility] and possibly hospice after. Admission and Anticipated Discharge Date Admission Date: November 22, 2020 Supervising Physician Co-Signing Physician Notes I also saw the patient and confirmed tobias portions of the history and exam. I agree with the impression and plan as noted in the resident documentation. The patient is seated in the bedside chair. He is no complaints. He is looking forward to discharge. Unfortunately his insurance authorization to [facility] is still pending. Case management has again reached out to insurance for decision and told that all information has been received but no decision has been made. Exam 89/53, 94, 18, 36.8, 94% on room air Pleasant. Alert. Cardiovascular irregularly irregular Lungs clear with nonlabored respirations Abdomen is soft and nontender There are 2 brook on the left lower abdominal wall, intact There is a vertical line of brook in the right lateral abdominal wall; very localized erythema at staple sites but no signs of infection. Impression and plan Cecal mass status post ileocecectomy, postop day #12 Prolonged post-operative ileus, now resolved. Likely multifactorial and likely related to surgery, compounded by age, decreased mobility, and medications. Awaiting insurance authorization for placement. Additional diagnoses per resident note Subjective No complaints today. Doing well. Excited to go to [facility]. Review of Systems Constitutional: no fever, no chills, no sweats and no fatigue Eyes: no blind spots and no discharge Ear, Nose, Mouth, Throat: no hearing loss and no nasal congestion Respiratory: no cough and no dyspnea Cardiovascular: no chest pain, no dyspnea on exertion and no edema Gastrointestinal: no abdominal pain, no nausea, no vomiting, no constipation, no diarrhea/loose stools and no blood in stools Musculoskeletal: no joint pain and no myalgia Neurologic: no tingling, no numbness and no headache(s) Endocrine: no fatigue Physical Exam Physical Exam: Constitutional: in no apparent distress, sitting comfortably in chair Eyes: EOMI, pupils equal and reactive bilaterally, no scleral icterus Cardiac: RRR, no murmurs, gallops or rubs. Normal S1, S2 Pulm: CTA BL, no wheezes, rhonchi, crackles or rubs, moving air well throughout both lungs Abd: soft, nontender, mildly distended, normal bowel sounds, no rebound or guarding, incisions healing well with mild serous discharge. some redness of skin by right lateral brook. anterior and left side normal with granulation tissue. Extremities: 2+ peripheral pulses, no edema Neuro: no focal deficits, moving all 4 limbs, A&Ox3 Results & Data Results & Data ([facility]) Vital Signs (Past 12 Hours) Vital Signs Temp Pulse Resp BP Pulse Ox 12/10/20 07:15 36.6 C 66 16 106/68 91 Laboratory Results WBC 6.78 K/uL (4.8-10.8) 12/05/20 12:04 RBC 3.31 M/uL (4.7-6.1) L 12/05/20 12:04 Hgb 8.8 g/dL (14.0-18.0) L 12/05/20 12:04 Hct 29.4 % (42-52) L 12/05/20 12:04 MCV 88.8 fL (80-100) 12/05/20 12:04 MCH 26.6 pg (25-34) 12/05/20 12:04 MCHC 29.9 g/dL (32-36) L 12/05/20 12:04 RDW Std Deviation 57.9 fL (36.4-46.3) H 12/05/20 12:04 RDW Coeff of Jennifer 17.8 % (11.5-14.5) H 12/05/20 12:04 Plt Count 251 K/uL (130-400) 12/05/20 12:04 MPV 9.8 fL (7.4-10.4) 12/05/20 12:04 Immature Gran % (Auto) 0.3 % 12/03/20 05:45 Neut % (Auto) 72.6 % 12/03/20 05:45 Lymph % (Auto) 11.1 % 12/03/20 05:45 Rapides % (Auto) 15.1 % 12/03/20 05:45 Eos % (Auto) 0.9 % 12/03/20 05:45 Baso % (Auto) 0.0 % 12/03/20 05:45 Neut # (Auto) 5.47 K/uL (1.4-6.5) 12/03/20 05:45 Lymph # (Auto) 0.84 K/uL (1.2-3.4) L 12/03/20 05:45 Rapides # (Auto) 1.14 K/uL (0.11-0.59) H 12/03/20 05:45 Eos # (Auto) 0.07 K/uL (0-0.5) 12/03/20 05:45 Baso # (Auto) 0.00 K/uL (0-0.2) 12/03/20 05:45 Immature Gran # (Auto) 0.02 K/uL (0.00-0.02) 12/03/20 05:45 Absolute Nucleated RBC 0.05 K/uL (0-0) H 12/05/20 12:04 Nucleated RBC % (auto) 0.7 % 12/05/20 12:04 Polychromasia 1+ 12/01/20 06:17 Hypochromasia Present 11/24/20 06:51 Anisocytosis Present 11/29/20 06:29 Microcytosis Present 11/24/20 06:51 Target Cells 1+ 11/24/20 06:51 Ovalocytes 1+ 11/29/20 06:29 Schistocytes 1+ 11/22/20 17:38 PT 13.1 Seconds (9.0-12.0) H 11/22/20 17:38 INR 1.3 (0.9-1.1) H 11/22/20 17:38 APTT 26.6 Seconds (21.0-31.0) 11/22/20 17:38 PTT Ratio 1.0 11/22/20 17:38 Sodium 139 mmol/L (136-145) 12/10/20 06:34 Potassium 3.5 mmol/L (3.5-5.1) 12/10/20 06:34 Chloride 107 mmol/L (98-107) 12/10/20 06:34 Carbon Dioxide 26 mmol/L (21-32) 12/10/20 06:34 Anion Gap 6.0 (3-11) 12/10/20 06:34 BUN 18 mg/dl (7-18) 12/10/20 06:34 Creatinine 0.82 mg/dl (0.6-1.4) 12/10/20 06:34 Est Cr Clr Drug Dosing 70.4 ml/min 12/10/20 06:34 Est GFR ( Amer) 91.5 ml/min 12/10/20 06:34 Est GFR (Non-Af Amer) 79.0 ml/min 12/10/20 06:34 BUN/Creatinine Ratio 22.2 (10-20) H 12/10/20 06:34 Glucose 79 mg/dl (70-99) 12/10/20 06:34 POC Glucose 273 mg/dl (70-99) H 12/09/20 11:48 Calcium 7.1 mg/dl (8.5-10.1) L 12/10/20 06:34 Phosphorus 2.7 mg/dl (2.5-4.9) 12/10/20 06:34 Magnesium 2.0 mg/dl (1.8-2.4) 12/10/20 06:34 Iron 23 mcg/dl (35-175) L 11/26/20 06:18 TIBC 456 mcg/dl (250-450) H 11/26/20 06:18 Total Bilirubin 1.1 mg/dl (0.2-1) H 12/03/20 05:45 Direct Bilirubin 0.7 mg/dl (0-0.2) H 12/02/20 05:27 AST 26 U/L (15-37) 12/03/20 05:45 ALT 17 U/L (12-78) 12/03/20 05:45 Alkaline Phosphatase 120 U/L (45-117) H 12/03/20 05:45 Lactate Dehydrogenase 282 U/L (87-241) H 11/26/20 06:18 Total Protein 4.6 gm/dl (6.4-8.2) L 12/03/20 05:45 Albumin 2.1 gm/dl (3.4-5.0) L 12/03/20 05:45 Globulin 2.5 gm/dl (2.5-4.0) 12/03/20 05:45 Albumin/Globulin Ratio 0.9 (0.9-2) 12/03/20 05:45 Triglycerides 80 mg/dl (0-150) 12/07/20 13:17 Urine Color Yellow 11/22/20 19:41 Urine Appearance Clear (Clear) 11/22/20 19:41 Urine pH 5.0 (4.5-7.5) 11/22/20 19:41 Ur Specific Asher 1.014 (1.000-1.030) 11/22/20 19:41 Urine Protein Negative (Negative) 11/22/20 19:41 Urine Glucose (UA) Negative (Negative) 11/22/20 19:41 Urine Ketones Negative (Negative) 11/22/20 19:41 Urine Blood Negative (Negative) 11/22/20 19:41 Urine Nitrite Negative (Negative) 11/22/20 19:41 Urine Bilirubin Negative (Negative) 11/22/20 19:41 Urine Urobilinogen Negative (Negative) 11/22/20 19:41 Ur Leukocyte Esterase Negative (Negative) 11/22/20 19:41 Ur Random Creatinine < 13.0 mg/dl 12/01/20 15:30 Stool Occult Bld Scrn Positive (Negative) A 12/05/20 08:00 COVID-19 Eval Order Covid19 at [facility] 11/22/20 17:20 SARS-CoV-2 (PCR) NEGATIVE (Negative) 11/22/20 17:20 Blood Type O Positive 12/01/20 08:18 Antibody Screen NEGATIVE 12/01/20 08:18 Crossmatch See Detail 12/01/20 08:[address] 11/22/20 17:06 CT SCAN OF THE CERVICAL SPINE CLINICAL HISTORY: Fall. COMPARISON STUDY: CT of the cervical spine dated 06/24/2018. TECHNIQUE: CT scan of the cervical spine is performed from the skull base to the upper thoracic spine. Images are reviewed in the axial, sagittal, and coronal planes. IV contrast was not administered for this examination. A dose lowering technique was utilized adhering to the principles of ALARA. CT DOSE: 3196.59 mGy.cm FINDINGS: Skeletal structures: The skeletal structures are osteopenic. There is no evidence of fracture or subluxation involving the cervical spine. Vertebral body height is maintained. There is minimal retrolisthesis at C4-C5. Minimal anterolisthesis is seen at C5-C6, C6-C7, and C7-T1. Anterior osteophytes are seen throughout. There is straightening of the cervical lordosis. The odontoid process and lateral masses are intact. The atlantoaxial articulation is preserved noting productive degenerative change. The spinous processes appear intact. There is moderate to advanced multilevel cervical spondylosis. Uncovertebral and facet arthropathy contribute to neural foraminal stenosis at most levels. Intervertebral discs: There is moderate to advanced disc space narrowing all levels between C3-C4 and C7-T1. Central canal: Grossly patent. Soft tissues: The prevertebral and paraspinous soft tissues are within normal limits. The thyroid gland is enlarged and heterogeneous. There are numerous thyroid nodules which measure up to 2.4 cm. These are unchanged from 2018. There is atherosclerotic calcification of the carotid bulbs. Calvarium: The visualized calvarium at the skull base appears intact. Brain parenchyma: Partially visualized brain parenchyma at the skull base is within normal limits noting age-related involutional change. Sinuses and mastoids: There is trace mucosal thickening in the right maxillary antrum. The mastoid air cells are well pneumatized. Lung apices: Emphysematous change is noted. IMPRESSION: 1. There is no evidence of fracture or subluxation involving the cervical spine. 2. Osteopenia and spondylotic change as above. ACT 112: Negative or not required by law. Electronically signed by: Naseem Gonzalez M.D. 11/22/2020 7:[address] 11/22/20 17:06 CT SCAN OF THE BRAIN WITHOUT IV CONTRAST CLINICAL HISTORY: Fall. COMPARISON STUDY: CT of the brain dated 10/26/2020. TECHNIQUE: Unenhanced axial CT scan of the brain is performed from the vertex to the skull base. A dose lowering technique was utilized adhering to the principles of ALARA. FINDINGS: Brain parenchyma: A focus of high left parietal encephalomalacia is consistent with a remote insult. There are age-related involutional changes noting [id number] subcortical and periventricular microangiopathic change. There is no hemorrhage, mass effect, or evidence of acute territorial ischemia by CT criteria. 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 Villanueva-white matter differentiation is preserved. No extra-axial fluid collection is seen. Ventricles, sulci, cisterns: Prominent secondary to involutional change. Intracranial vasculature: There is atherosclerotic calcification of the cavernous carotid arteries. Calvarium: The skeletal structures are osteopenic. No depressed calvarial fracture is identified. Sinuses and mastoids: The paranasal sinuses are clear. The mastoid air cells are well pneumatized. Orbits: The bony orbits are grossly intact. There are bilateral ocular lens implants. IMPRESSION: There is no hemorrhage, mass effect, or evidence of acute territorial ischemia by CT criteria. ACT 112: Negative or not required by law. Electronically signed by: Naseem Gonzalez M.D. 11/22/2020 6:37 PM Hip X-Ray 11/22/20 17:06 RIGHT HIP 2 VIEWS CLINICAL HISTORY: Fall. Right hip pain. FINDINGS: AP and crosstable lateral views of the right hip are compared to study dated 12/16/2018. The skeletal structures are osteopenic. No fracture is seen involving the right hip or the visualized right hemipelvis. Mild to moderate degenerative joint space narrowing is seen in the right hip. The overlying soft tissues are normal as visualized. IMPRESSION: No acute bony abnormality is identified. Electronically signed by: Naseem Gonzalez M.D. 11/22/2020 5:[address] 11/26/20 15:18 CT chest diagnostic wo con CLINICAL HISTORY: metastatic evaluation, LYMPHOMA COMPARISON STUDY: Chest x-ray dated 11/24/2020, CT scan dated 12/17/2018 CT DOSE: 579.84 mGycm TECHNIQUE: CT of the thorax was performed from the thoracic inlet to the lung b ases. Images are reviewed in the axial, sagittal, and coronal planes. IV contrast was not administered for this examination. A dose lowering technique was utilized adhering to the principles of ALARA. FINDINGS: Thyroid: There is a multinodular thyroid goiter, similar to the preceding study. Thoracic aorta: There is aneurysmal dilatation of the ascending thoracic aorta which measures 45 mm the level of the main pulmonary artery. Heart: The heart is enlarged with coronary calcifications. There is a trace pericardial effusion. 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 Lungs and pleural spaces: There are fmziz-gy-gnzfyavz bilateral pleural effusions. There is mild dependent compressive atelectatic change. Mediastinum: There is no mediastinal lymphadenopathy. There is no evidence of pathologic mediastinal lymphadenopathy. Sameera: There is no evidence of pathologic hilar adenopathy given the limitations of a noncontrast study Axilla: There is no evidence of pathologic axillary lymphadenopathy. Upper abdomen: There is a hiatal hernia. Skeletal structures: There are mild superior endplate upper thoracic compression deformities which appear old. There are acute/subacute fractures of the right lateral sixth and seventh ribs. There is acute/subacute fracture of the left L1 transverse process. Correlate with any history of recent trauma. IMPRESSION: 1. No evidence of pathologic adenopathy 2. Cardiomegaly and coronary artery calcifications 3. Aneurysmal dilatation of the ascending thoracic aorta which measures 45 mm 4. 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 Wvpgk-kh-tkfrijew bilateral pleural effusions with associated lower lobe compressive atelectasis 6. Hiatal hernia 7. Persistent multinodular thyroid goiter. 8. Acute/subacute fractures of the right lateral sixth and seventh ribs. Acute/subacute fracture of the left L1 transverse process. Correlation with traumatic history recommended. ACT 112: Negative or not required by law. Electronically signed by: Ganesh Dimas M.D. 11/26/2020 4:49 PM Abdomen/Pelvis CT 12/01/20 15:20 CT SCAN OF THE ABDOMEN AND PELVIS WITHOUT CONTRAST CLINICAL HISTORY: eval for ureteral leaking COMPARISON STUDY: November 22, 2020 TECHNIQUE: CT scan of the abdomen and pelvis was performed from the lung bases to the proximal femurs. Images are reviewed in the axial, sagittal, and coronal planes. IV contrast was not administered for this examination. A dose lowering technique was utilized adhering to the principles of ALARA. CT DOSE: 1061.10 mGycm FINDINGS: Lower chest: Moderate bilateral pleural effusion and compressive atelectasis at the dependent portions of bilateral lower lobes slightly worsened since prior study. Four-chamber cardiomegaly. Calcifications of carotid arteries and aortic valve are again seen. Liver: The unenhanced liver is normal in size, contour, and attenuation. There is no intrahepatic biliary ductal dilatation. Gallbladder: Gallbladder is mildly dilated. Small calcifications at dependent portions of the gallbladder are again seen. Spleen: Normal in size and attenuation. Pancreas: Unremarkable. Adrenal glands: Unremarkable. Kidneys: The unenhanced kidneys are normal in size without hydronephrosis. There is no contour deforming renal mass lesion. No renal calculi are identified. Redemonstration of the hypoattenuating lesion within slightly atrophic right renal cortex is unchanged since recent prior study and show minimal wall calcifications. Bowel: Large hiatal hernia is again seen. Bowel loops are nondilated. Postoperative changes are seen within right upper quadrant. Percutaneous abdominal catheter is seen with entrance through the left lower abdominal wall. Peritoneum: Small amount of free air is seen between the right lobe of the liver and the right lateral chest wall as well as within right upper abdomen which could be related to recent surgery. Interval development of diffuse mesenteric and subcutaneous edema. Bilateral fat-containing inguinal hernias are seen. Small amount of gas collection is seen within the right inguinal hernia (3/450). Vasculature: Aorta is tortuous and calcified. Redemonstration of large fusiform abdominal aortic aneurysm measuring 6.7 x 4.8 cm on axial dimension (3/160) which is not significantly changed since recent prior study. Evaluation of abdominal aorta is limited on this nondedicated nonenhanced exam. Adenopathy: None. Pelvic viscera: Urinary bladder is decompressed with Root balloon within its lumen. Prostate gland is not well seen, probably surgically absent. Skeletal structures: Osteopenia and degenerative changes of the spine. There is degenerative changes of the spine. IMPRESSION: 1. Interval postsurgical changes within loop of large bowel within the right hemiabdomen. Small amount of free intra-abdominal gas is seen as well as per cutaneous drainage catheter. 2. Interval worsening of mesenteric edema. Interval development of anasarca. 3. Small amount of free gas is seen within fat-containing right inguinal hernia. 4. Large hiatal hernia. 5. Bilateral pleural effusion associated with atelectasis/infiltrate at bilateral bases. 6. Stable cardiomegaly. 7. Stable abdominal aortic aneurysm. 8. Urinary bladder is decompressed with Root balloon within its lumen. 9. Cholelithiasis. No evidence of cholecystitis. ACT 112: Negative or not required by law. The above report was generated using voice recognition software. It may contain grammatical, syntax or spelling errors. Electronically signed by: Laila Barros DO 12/01/2020 7:23 PM Chest X-Ray 12/06/20 13:16 XR chest 1V portable HISTORY: 89 years-old Male ppn initiation acute generalized abdominal pain with ileus. Chest pain. COMPARISON: KUB of same day, CT chest 11/26/2020, chest radiograph 11/24/2020 TECHNIQUE: Portable AP view of the chest FINDINGS: Cardiac silhouette is enlarged. Loop recorder device. Mild emphysema. Enlargement of the pulmonary arteries suggestive of pulmonary artery hy pertension. Layering pleural effusions with bibasilar opacities. No pneumothorax or overt pulmonary edema. Degenerative changes of the shoulders and spine. IMPRESSION: 1. Cardiomegaly with findings suggestive of pulmonary artery hypertension. 2. Layering pleural effusions with bibasilar opacities suggestive of atelectasis. 3. Emphysema. ACT 112: Negative or not required by law. The above report was generated using voice recognition software. It may contain grammatical, syntax or spelling errors. Electronically signed by: Moshe Calzada M.D. 12/06/2020 2:26 PM KUB X-Ray 12/07/20 07:00 KUB CLINICAL HISTORY: Evaluate for ileus. COMPARISON STUDY: CT of the abdomen and pelvis December 01, 2020. KUB December 06, 2020. FINDINGS: Skin brook are noted. There is a right lower quadrant surgical drain. Amount of gas within the colon has decreased. There is persistent moderate small bowel dilatation. Small left pleural effusion is noted. There's a trace right pleural effusion. IMPRESSION: Persistent moderate small bowel dilatation. Interval decrease in colonic gas. The findings may reflect a partial small bowel obstruction or postoperative ileus. ACT 112: Negative or not required by law. Electronically signed by: Yuan Augustine M.D. 12/07/2020 7:08 AM Resident Activity Tracking Resident Involvement: Resident Care Provided Care Provided: Adult Hospital Medicine
[2020-12-10] MEDS: ACETAMINOPHEN 325 MG TAB PO PRN (21:58)
[2020-12-11 06:44] LABS: BUN Creatinine Ratio 24.2 (10-20); Calcium 7.3 mg/dl (8.5-10.1); Creatinine Clr Calc Pharmacy 65.6 ml/min; Est GFR (African American) 88.9 ml/min; Est GFR (Non-African American) 76.7 ml/min; Potassium 3.6 mmol/L (3.5-5.1)
[2020-12-11 06:55] LABS: Phosphorus 3.5 mg/dl (2.5-4.9)
[2020-12-11] MEDS: METOPROLOL SUCC 25MG EXT REL TAB PO SCH (08:42)
[2020-12-11] MEDS: PANTOprazole 40 MG TAB PO SCH ×2 (08:43→21:38)
[2020-12-11] MEDS: methIMAzole 5 MG TABLET PO SCH (08:43)
[2020-12-11] MEDS: LIDOCAINE 5% 1 PATCH TD SCH (08:44)
--- NOTE | 2020-12-11 10:26 | Hospitalist Progress Note ---
Date of Service December 11, 2020 Assessment & Plan (1) Postoperative ileus: Matty Smiley is a 89-year-old male with past medical history significant for A. fib, diastolic CHF, prior CVA, frequent falls, known AAA, CKD stage III, and COPD; who presented with hypotension, now with postop ileus after surgery for a cecal mass. Goal to transition to rehab at [facility] in [place]. Postoperative ileus - resolved tolerating low fiber today doing well, no nausea. recommned high protein boost beverages with each meal for severe protein calorie malnutrition. awaiting insurance authorization for inpatient rehab placement Cecum mass s/p resection POD 12 s/p right hemicolectomy by Dr. 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 [place] to be removed in outpt surgery clinic on 12/13. Anemia s/p 4u transfusion and venofer Iron deficiency and acute blood loss anemia from likely appendiceal mass Colonoscopy shows appendiceal mass there are diverticula without evidence of acute bleeding. Upper endoscopy shows hiatal hernia without evidence of bleeding source continue monitoring Hg SHAY (acute kidney injury): resolved likely 2/2 anemia and hypotension with poor renal perfusion Cr is stable, electrolytes stable Multiple rib fractures: Falls:Multiple Rib Fractures: right side, ribs 6 and 7 and L1 transverse process fracture Incidentally noted on CT scan patient recently admitted to hospital in [place] for this following recent fall Pain controlled with Ultram 50mg q4 PRN, Tylenol PRN Atrial fibrillation Atrial Fibrillation:rate controlled low dose metoprolol resume PO Metoprolol discontinue Eliquis in the setting of numerous falls, and anemia History of CVA (cerebrovascular accident): Resume aspirin Hyperlipidemia: Remains on atorvastatin Diastolic CHF: Patient not having much issues with volume however we will continue his beta- josefina as treatment of his chronic diastolic heart failure Severe protein-calorie malnutrition: restarted low fiber meals beverage supplements with meals DVT ppx: SCDs, ambulation. chemical contraindicated with anemia and falls FEN/GI: low fiber diet Code Status:DNR/DNI Dispo: auth pending for inpt rehab at [facility] Admission and Anticipated Discharge Date Admission Date: November 22, 2020 Supervising Physician Co-Signing Physician Notes I also saw the patient and confirmed tobias portions of the history and exam. I agree with the impression and plan as noted in the resident documentation. He sitting the bedside chair. He has no complaints. He is disappointed that he is unable to be discharged today. The goal was to go to SNF ([facility]) for continued redilatation with eventual transition to home with home services; he was independent at home with some services prior to his admission. Unfortunately, his stay was denied by his insurance. I did complete a peer to p eer review this morning; currently undergoing an expedited appeal process. Exam 104/68, 112, 20, 36.3 C, 97% room air Pleasant. Alert. Cardiovascular irregularly irregular Lungs clear with nonlabored respirations Abdomen is soft and nontender Wounds with serous discharge. 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 Impression and plan Cecal mass status post ileocecectomy, postop day #13 Prolonged post-operative ileus, now resolved. Likely multifactorial and likely related to surgery, compounded by age, decreased mobility, and medications. Awaiting insurance appeal for SNF placement. I believe with continued rehabilitation/strengthening given his nearly 2-week hospitalization, he should be able to transition back to home with services. Additional diagnoses per resident note Subjective continuing to do well today. no complaints. advised to use walker and keep walking in room and hallway. Review of Systems Constitutional: no fever, no chills, no sweats and no fatigue Cardiovascular: no chest pain and no edema Gastrointestinal: no abdominal pain, no nausea, no vomiting, no constipation and no diarrhea/loose stools Physical Exam Physical Exam: Constitutional: in no apparent distress, sitting comfortably in chair Eyes: EOMI, pupils equal and reactive bilaterally, no scleral icterus Cardiac: RRR, no murmurs, gallops or rubs. Normal S1, S2 Pulm: CTA BL, no wheezes, rhonchi, crackles or rubs, moving air well throughout both lungs Abd: soft, nontender, mildly distended, normal bowel sounds, no rebound or guarding, incisions healing well with serous discharge. some redness of skin by right lateral brook. anterior and left side normal with granulation tissue. Extremities: 2+ peripheral pulses, no edema Neuro: no focal deficits, moving all 4 limbs, A&Ox3 Results & Data Results & Data ([facility]) Vital Signs (Past 12 Hours) Vital Signs Temp Pulse Resp BP Pulse Ox 12/11/20 07:54 36.4 C L 72 19 102/66 98 Laboratory Results WBC 6.78 K/uL (4.8-10.8) 12/05/20 12:04 RBC 3.31 M/uL (4.7-6.1) L 12/05/20 12:04 Hgb 8.8 g/dL (14.0-18.0) L 12/05/20 12:04 Hct 29.4 % (42-52) L 12/05/20 12:04 MCV 88.8 fL (80-100) 12/05/20 12:04 MCH 26.6 pg (25-34) 12/05/20 12:04 MCHC 29.9 g/dL (32-36) L 12/05/20 12:04 RDW Std Deviation 57.9 fL (36.4-46.3) H 12/05/20 12:04 RDW Coeff of Jennifer 17.8 % (11.5-14.5) H 12/05/20 12:04 Plt Count 251 K/uL (130-400) 12/05/20 12:04 MPV 9.8 fL (7.4-10.4) 12/05/20 12:04 Immature Gran % (Auto) 0.3 % 12/03/20 05:45 Neut % (Auto) 72.6 % 12/03/20 05:45 Lymph % (Auto) 11.1 % 12/03/20 05:45 Lares % (Auto) 15.1 % 12/03/20 05:45 Eos % (Auto) 0.9 % 12/03/20 05:45 Baso % (Auto) 0.0 % 12/03/20 05:45 Neut # (Auto) 5.47 K/uL (1.4-6.5) 12/03/20 05:45 Lymph # (Auto) 0.84 K/uL (1.2-3.4) L 12/03/20 05:45 Lares # (Auto) 1.14 K/uL (0.11-0.59) H 12/03/20 05:45 Eos # (Auto) 0.07 K/uL (0-0.5) 12/03/20 05:45 Baso # (Auto) 0.00 K/uL (0-0.2) 12/03/20 05:45 Immature Gran # (Auto) 0.02 K/uL (0.00-0.02) 12/03/20 05:45 Absolute Nucleated RBC 0.05 K/uL (0-0) H 12/05/20 12:04 Nucleated RBC % (auto) 0.7 % 12/05/20 12:04 Polychromasia 1+ 12/01/20 06:17 Hypochromasia Present 11/24/20 06:51 Anisocytosis Present 11/29/20 06:29 Microcytosis Present 11/24/20 06:51 Target Cells 1+ 11/24/20 06:51 Ovalocytes 1+ 11/29/20 06:29 Schistocytes 1+ 11/22/20 17:38 PT 13.1 Seconds (9.0-12.0) H 11/22/20 17:38 INR 1.3 (0.9-1.1) H 11/22/20 17:38 APTT 26.6 Seconds (21.0-31.0) 11/22/20 17:38 PTT Ratio 1.0 11/22/20 17:38 Sodium 139 mmol/L (136-145) 12/11/20 05:57 Potassium 3.6 mmol/L (3.5-5.1) 12/11/20 05:57 Chloride 107 mmol/L (98-107) 12/11/20 05:57 Carbon Dioxide 27 mmol/L (21-32) 12/11/20 05:57 Anion Gap 5.0 (3-11) 12/11/20 05:57 BUN 21 mg/dl (7-18) H 12/11/20 05:57 Creatinine 0.88 mg/dl (0.6-1.4) 12/11/20 05:57 Est Cr Clr Drug Dosing 65.6 ml/min 12/11/20 05:57 Est GFR ( Amer) 88.9 ml/min 12/11/20 05:57 Est GFR (Non-Af Amer) 76.7 ml/min 12/11/20 05:57 BUN/Creatinine Ratio 24.2 (10-20) H 12/11/20 05:57 Glucose 85 mg/dl (70-99) 12/11/20 05:57 POC Glucose 273 mg/dl (70-99) H 12/09/20 11:48 Calcium 7.3 mg/dl (8.5-10.1) L 12/11/20 05:57 Phosphorus 3.5 mg/dl (2.5-4.9) 12/11/20 05:57 Magnesium 2.0 mg/dl (1.8-2.4) 12/11/20 05:57 Iron 23 mcg/dl (35-175) L 11/26/20 06:18 TIBC 456 mcg/dl (250-450) H 11/26/20 06:18 Total Bilirubin 1.1 mg/dl (0.2-1) H 12/03/20 05:45 Direct Bilirubin 0.7 mg/dl (0-0.2) H 12/02/20 05:27 AST 26 U/L (15-37) 12/03/20 05:45 ALT 17 U/L (12-78) 12/03/20 05:45 Alkaline Phosphatase 120 U/L (45-117) H 12/03/20 05:45 Lactate Dehydrogenase 282 U/L (87-241) H 11/26/20 06:18 Total Protein 4.6 gm/dl (6.4-8.2) L 12/03/20 05:45 Albumin 2.1 gm/dl (3.4-5.0) L 12/03/20 05:45 Globulin 2.5 gm/dl (2.5-4.0) 12/03/20 05:45 Albumin/Globulin Ratio 0.9 (0.9-2) 12/03/20 05:45 Triglycerides 80 mg/dl (0-150) 12/07/20 13:17 Urine Color Yellow 11/22/20 19:41 Urine Appearance Clear (Clear) 11/22/20 19:41 Urine pH 5.0 (4.5-7.5) 11/22/20 19:41 Ur Specific [place] 1.014 (1.000-1.030) 11/22/20 19:41 Urine Protein Negative (Negative) 11/22/20 19:41 Urine Glucose (UA) Negative (Negative) 11/22/20 19:41 Urine Ketones Negative (Negative) 11/22/20 19:41 Urine Blood Negative (Negative) 11/22/20 19:41 Urine Nitrite Negative (Negative) 11/22/20 19:41 Urine Bilirubin Negative (Negative) 11/22/20 19:41 Urine Urobilinogen Negative (Negative) 11/22/20 19:41 Ur Leukocyte Esterase Negative (Negative) 11/22/20 19:41 Ur Random Creatinine < 13.0 mg/dl 12/01/20 15:30 Stool Occult Bld Scrn Positive (Negative) A 12/05/20 08:00 COVID-19 Eval Order Covid19 at [facility] 11/22/20 17:20 SARS-CoV-2 (PCR) NEGATIVE (Negative) 11/22/20 17:20 Blood Type O Positive 12/01/20 08:18 Antibody Screen NEGATIVE 12/01/20 08:18 Crossmatch See Detail 12/01/20 08:[address] 11/22/20 17:06 CT SCAN OF THE CERVICAL SPINE CLINICAL HISTORY: Fall. COMPARISON STUDY: CT of the cervical spine dated 06/24/2018. TECHNIQUE: CT scan of the cervical spine is performed from the skull base to the upper thoracic spine. Images are reviewed in the axial, sagittal, and coronal planes. IV contrast was not administered for this examination. A dose lowering technique was utilized adhering to the principles of ALARA. CT DOSE: 3196.59 mGy.cm FINDINGS: Skeletal structures: The skeletal structures are osteopenic. There is no evidence of fracture or subluxation involving the cervical spine. Vertebral body height is maintained. There is minimal retrolisthesis at C4-C5. Minimal anterolisthesis is seen at C5-C6, C6-C7, and C7-T1. Anterior osteophytes are seen throughout. There is straightening of the cervical lordosis. The odontoid process and lateral masses are intact. The atlantoaxial articulation is preserved noting productive degenerative change. The spinous processes appear intact. There is moderate to advanced multilevel cervical spondylosis. Uncovertebral and facet arthropathy contribute to neural foraminal stenosis at most levels. Intervertebral discs: There is moderate to advanced disc space narrowing all levels between C3-C4 and C7-T1. Central canal: Grossly patent. Soft tissues: The prevertebral and paraspinous soft tissues are within normal limits. The thyroid gland is enlarged and heterogeneous. There are numerous thyroid nodules which measure up to 2.4 cm. These are unchanged from 2018. There is atherosclerotic calcification of the carotid bulbs. Calvarium: The visualized calvarium at the skull base appears intact. Brain parenchyma: Partially visualized brain parenchyma at the skull base is within normal limits noting age-related involutional change. Sinuses and mastoids: There is trace mucosal thickening in the right maxillary antrum. The mastoid air cells are well pneumatized. Lung apices: Emphysematous change is noted. IMPRESSION: 1. There is no evidence of fracture or subluxation involving the cervical spine. 2. Osteopenia and spondylotic change as above. ACT 112: Negative or not required by law. Electronically signed by: Naseem Gonzalez M.D. 11/22/2020 7:[address] 11/22/20 17:06 CT SCAN OF THE BRAIN WITHOUT IV CONTRAST CLINICAL HISTORY: Fall. COMPARISON STUDY: CT of the brain dated 10/26/2020. TECHNIQUE: Unenhanced axial CT scan of the brain is performed from the vertex to the skull base. A dose lowering technique was utilized adhering to the principles of ALARA. FINDINGS: Brain parenchyma: A focus of high left parietal encephalomalacia is consistent with a remote insult. There are age-related involutional changes noting [id number] subcortical and periventricular microangiopathic change. There is no hemorrhage, mass effect, or evidence of acute territorial ischemia by CT criteria. 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 Villanueva-white matter differentiation is preserved. No extra-axial fluid collection is seen. Ventricles, sulci, cisterns: Prominent secondary to involutional change. Intracranial vasculature: There is atherosclerotic calcification of the cav ernous carotid arteries. Calvarium: The skeletal structures are osteopenic. No depressed calvarial fracture is identified. Sinuses and mastoids: The paranasal sinuses are clear. The mastoid air cells are well pneumatized. Orbits: The bony orbits are grossly intact. There are bilateral ocular lens implants. IMPRESSION: There is no hemorrhage, mass effect, or evidence of acute territorial ischemia by CT criteria. ACT 112: Negative or not required by law. Electronically signed by: Naseem Gonzalez M.D. 11/22/2020 6:37 PM Hip X-Ray 11/22/20 17:06 RIGHT HIP 2 VIEWS CLINICAL HISTORY: Fall. Right hip pain. FINDINGS: AP and crosstable lateral views of the right hip are compared to study dated 12/16/2018. The skeletal structures are osteopenic. No fracture is seen involving the right hip or the visualized right hemipelvis. Mild to moderate degenerative joint space narrowing is seen in the right hip. The overlying soft tissues are normal as visualized. IMPRESSION: No acute bony abnormality is identified. Electronically signed by: Naseem Gonzalez M.D. 11/22/2020 5:[address] 11/26/20 15:18 CT chest diagnostic wo con CLINICAL HISTORY: metastatic evaluation, LYMPHOMA COMPARISON STUDY: Chest x-ray dated 11/24/2020, CT scan dated 12/17/2018 CT DOSE: 579.84 mGycm TECHNIQUE: CT of the thorax was performed from the thoracic inlet to the lung bases. Images are reviewed in the axial, sagittal, and coronal planes. IV contrast was not administered for this examination. A dose lowering technique was utilized adhering to the principles of ALARA. FINDINGS: Thyroid: There is a multinodular thyroid goiter, similar to the preceding study. Thoracic aorta: There is aneurysmal dilatation of the ascending thoracic aorta which measures 45 mm the level of the main pulmonary artery. Heart: The heart is enlarged with coronary calcifications. There is a trace pericardial effusion. 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 Lungs and pleural spaces: There are [id number]-yhmesrct bilateral pleural effusions. There is mild dependent compressive atelectatic change. Mediastinum: There is no mediastinal lymphadenopathy. There is no evidence of pathologic mediastinal lymphadenopathy. Sameera: There is no evidence of pathologic hilar adenopathy given the limitations of a noncontrast study Axilla: There is no evidence of pathologic axillary lymphadenopathy. Upper abdomen: There is a hiatal hernia. Skeletal structures: There are mild superior endplate upper thoracic compression deformities which appear old. There are acute/subacute fractures of the right lateral sixth and seventh ribs. There is acute/subacute fracture of the left L1 transverse process. Correlate with any history of recent trauma. IMPRESSION: 1. No evidence of pathologic adenopathy 2. Cardiomegaly and coronary artery calcifications 3. Aneurysmal dilatation of the ascending thoracic aorta which measures 45 mm 4. 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 Nntpw-[id number]-[id number] bilateral pleural effusions with associated lower lobe compressive atelectasis 6. Hiatal hernia 7. Persistent multinodular thyroid goiter. 8. Acute/subacute fractures of the right lateral sixth and seventh ribs. Acute/subacute fracture of the left L1 transverse process. Correlation with traumatic history recommended. ACT 112: Negative or not required by law. Electronically signed by: Ganesh Dimas M.D. 11/26/2020 4:49 PM Abdomen/Pelvis CT 12/01/20 15:20 CT SCAN OF THE ABDOMEN AND PELVIS WITHOUT CONTRAST CLINICAL HISTORY: eval for ureteral leaking COMPARISON STUDY: November 22, 2020 TECHNIQUE: CT scan of the abdomen and pelvis was performed from the lung bases to the proximal femurs. Images are reviewed in the axial, sagittal, and coronal planes. IV contrast was not administered for this examination. A dose lowering technique was utilized adhering to the principles of ALARA. CT DOSE: 1061.10 mGycm FINDINGS: Lower chest: Moderate bilateral pleural effusion and compressive atelectasis at the dependent portions of bilateral lower lobes slightly worsened since prior study. Four-chamber cardiomegaly. Calcifications of carotid arteries and aortic valve are again seen. Liver: The unenhanced liver is normal in size, contour, and attenuation. There is no intrahepatic biliary ductal dilatation. Gallbladder: Gallbladder is mildly dilated. Small calcifications at dependent portions of the gallbladder are again seen. Spleen: Normal in size and attenuation. Pancreas: Unremarkable. Adrenal glands: Unremarkable. Kidneys: The unenhanced kidneys are normal in size without hydronephrosis. There is no contour deforming renal mass lesion. No renal calculi are identified. Redemonstration of the hypoattenuating lesion within slightly atrophic right renal cortex is unchanged since recent prior study and show minimal wall calcifications. Bowel: Large hiatal hernia is again seen. Bowel loops are nondilated. Postoperative changes are seen within right upper quadrant. Percutaneous abdominal catheter is seen with entrance through the left lower abdominal wall. Peritoneum: Small amount of free air is seen between the right lobe of the liver and the right lateral chest wall as well as within right upper abdomen which could be related to recent surgery. Interval development of diffuse mesenteric and subcutaneous edema. Bilateral fat-containing inguinal hernias are seen. Small amount of gas collection is seen within the right inguinal hernia (3/450). Vasculature: Aorta is tortuous and calcified. Redemonstration of large fusiform abdominal aortic aneurysm measuring 6.7 x 4.8 cm on axial dimension (3/160) which is not significantly changed since recent prior study. Evaluation of abdominal aorta is limited on this nondedicated nonenhanced exam. Adenopathy: None. Pelvic viscera: Urinary bladder is decompressed with Root balloon within its lumen. Prostate gland is not well seen, probably surgically absent. Skeletal structures: Osteopenia and degenerative changes of the spine. There is degenerative changes of the spine. IMPRESSION: 1. Interval postsurgical changes within loop of large bowel within the right hemiabdomen. Small amount of free intra-abdominal gas is seen as well as percutaneous drainage catheter. 2. Interval worsening of mesenteric edema. Interval development of anasarca. 3. Small amount of free gas is seen within fat-containing right inguinal hernia. 4. Large hiatal hernia. 5. Bilateral pleural effusion associated with atelectasis/infiltrate at bilateral bases. 6. Stable cardiomegaly. 7. Stable abdominal aortic aneurysm. 8. Urinary bladder is decompressed with Root balloon within its lumen. 9. Cholelithiasis. No evidence of cholecystitis. ACT 112: Negative or not required by law. The above report was generated using voice recognition software. It may contain grammatical, syntax or spelling errors. Electronically signed by: Laila Barros DO 12/01/2020 7:23 PM Chest X-Ray 12/06/20 13:16 XR chest 1V portable HISTORY: 89 years-old Male ppn initiation acute generalized abdominal pain with ileus. Chest pain. COMPARISON: KUB of same day, CT chest 11/26/2020, chest radiograph 11/24/2020 TECHNIQUE: Portable AP view of the chest FINDINGS: Cardiac silhouette is enlarged. Loop recorder device. Mild emphysema. Enlargement of the pulmonary arteries suggestive of pulmonary artery hypertension. Layering pleural effusions with bibasilar opacities. No pneumothorax or overt pulmonary edema. Degenerative changes of the shoulders and spine. IMPRESSION: 1. Cardiomegaly with findings suggestive of pulmonary artery hypertension. 2. Layering pleural effusions with bibasilar opacities suggestive of atelectasis. 3. Emphysema. ACT 112: Negative or not required by law. The above report was generated using voice recognition software. It may contain grammatical, syntax or spelling errors. Electronically signed by: Moshe Calzada M.D. 12/06/2020 2:26 PM KUB X-Ray 12/07/20 07:00 KUB CLINICAL HISTORY: Evaluate for ileus. COMPARISON STUDY: CT of the abdomen and pelvis December 01, 2020. KUB December 06, 2020. FINDINGS: Skin brook are noted. There is a right lower quadrant surgical drain. Amount of gas within the colon has decreased. There is persistent moderate small bowel dilatation. Small left pleural effusion is noted. There's a trace right pleural effusion. IMPRESSION: Persistent moderate small bowel dilatation. Interval decrease in colonic gas. The findings may reflect a partial small bowel obstruction or postoperative ileus. ACT 112: Negative or not required by law. Electronically signed by: Yuan Augustine M.D. 12/07/2020 7:08 AM Resident Activity Tracking Resident Involvement: Resident Care Provided Care Provided: Adult Hospital Medicine
[2020-12-11] MEDS: ACETAMINOPHEN 325 MG TAB PO PRN (22:36)
[2020-12-12] MEDS: methIMAzole 5 MG TABLET PO SCH (07:44)
[2020-12-12] MEDS: METOPROLOL SUCC 25MG EXT REL TAB PO SCH (07:44)
[2020-12-12] MEDS: PANTOprazole 40 MG TAB PO SCH (07:44)
[2020-12-12] MEDS: LIDOCAINE 5% 1 PATCH TD SCH (07:47)
--- NOTE | 2020-12-12 08:41 | Hospitalist Progress Note ---
Date of Service December 12, 2020 Assessment & Plan (1) Postoperative ileus: Matty Smiley is a 89-year-old male with past medical history significant for A. fib, diastolic CHF, prior CVA, frequent falls, known AAA, CKD stage III, and COPD; who presented with hypotension, now with postop ileus after surgery for a cecal mass. Goal to transition to rehab at [facility], and hospice will be considered after transition. Postoperative ileus - resolved tolerating low fiber today doing well, no nausea. recommned high protein boost beverages with each meal for severe protein calorie malnutrition. awaiting insurance authorization for inpatient rehab placement Cecum mass s/p resection POD 12 s/p right hemicolectomy by Dr. 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 [place] to be removed in outpt surgery clinic on 12/13. Anemia s/p 4u transfusion and venofer Iron deficiency and acute blood loss anemia from likely appendiceal mass Colonoscopy shows appendiceal mass there are diverticula without evidence of acute bleeding. Upper endoscopy shows hiatal hernia without evidence of bleeding source continue monitoring Hg SHAY (acute kidney injury): resolved likely 2/2 anemia and hypotension with poor renal perfusion Cr is stable, electrolytes stable Goals of Care: concerns regarding patient's safety given numerous falls, rib fractures possible sacral fracture. Family does not want the patient to go home due to safety issues discussed with patient and family at the bedside appreciate palliative's support with discussion of POLST, Goals of care. plan for SNF on discharge Multiple rib fractures: Falls:Multiple Rib Fractures: right side, ribs 6 and 7 and L1 transverse process fracture Incidentally noted on CT scan patient recently admitted to [facility] in [place] for this following recent fall Pain controlled with Ultram 50mg q4 PRN, Tylenol PRN Atrial fibrillation Atrial Fibrillation:rate controlled low dose metoprolol resume PO Metoprolol discontinue Eliquis in the setting of numerous falls, and anemia History of CVA (cerebrovascular accident): Resume aspirin Hyperlipidemia: Remains on atorvastatin Diastolic CHF: Patient not having much issues with volume however we will continue his beta- josefina as treatment of his chronic diastolic heart failure Severe protein-calorie malnutrition: restarted low fiber meals beverage supplements with meals DVT ppx: SCDs, ambulation. chemical contraindicated with anemia and falls FEN/GI: low fiber diet Code Status:DNR/DNI Dispo: auth pending for inpt rehab at [facility] Admission and Anticipated Discharge Date Admission Date: November 22, 2020 Results & Data Results & Data ([facility]) Vital Signs (Past 12 Hours) Vital Signs Temp Pulse Resp BP BP Pulse Ox 12/12/20 07:48 36.4 C L 90 18 99/62 L 95 12/11/20 22:33 36.5 C 90 20 95/60 L 94
[2020-12-12] MEDS ORDERED: METOPROLOL SUCC 25MG EXT REL TAB PO SCH (12:45)
[2020-12-12] MEDS ORDERED: PANTOprazole 40 MG TAB PO SCH (12:45)
[2020-12-12] MEDS ORDERED: ASPIRIN 81 MG ECTAB PO SCH ×2 (12:45)
[2020-12-12] MEDS ORDERED: methIMAzole 5 MG TABLET PO SCH (12:45)
--- NOTE | 2020-12-12 13:02 | Discharge Summary ---
Date of Service December 12, 2020 Admission HPI Per Admitting Provider Matty Su this is a 89-year-old male with past medical history significant for A. fib, diastolic CHF, prior CVA, frequent falls, known AAA, CKD stage III, and COPD; who presented to ER earlier today for concerns of low blood pressure. Of note patient has been in and out of the hospital for the last month most recently discharged from hospital in [place] following recent falls and rib fractures, and discharged from [facility] earlier this month for right- sided/generalized weakness. In ER patient accompanied by his daughter who provides majority of the history over the last month. Over the last month the patient has continuously had difficulty with falling and ultimately requiring multiple trips to the hospital/admissions. On Wednesday patient was discharged from hospital in [place] for rib fractures following a fall, was receiving care and residing in [facility] with home health nursing coming in Wednesday through Wednesday, at his post hospital discharge follow-up with Dr. Willingham on Wednesday patient has multiple medications held in the setting of multiple falls and low blood pressure during the visit. Continue to have follow-up with home health nursing at [facility] into this morning with home health nursing then presenting this morning taking blood pressure noticing that his blood pressure continued to remain low despite these changes medications, this was discussed with his PCP and ultimately he was referred to the ER. Upon presentation to the ER patient continued to have low blood pressures, and it was discovered that he had a hemoglobin of 7.1, notable drop from from previous hospitalization (10/26 demonstrating hemoglobin of 11.1) however patient denies any bright red blood per rectum or melena. Currently patient denies any abdominal pain, lightheadedness, nausea, vomiting, shortness of breath, or chest pain. Patient endorses pain over his right hip and mid thigh, but points to muscles along his groin as the main portion of where his pain is coming from. Daughter endorses numerous continued falls with unknown recency of falls over this last week since discharge from hospital, and has noted that he seems increasingly more unsteady on his feet. Also endorses that he has been increasingly forgetful over the last approximately 10 weeks, and seemingly more fatigued. Earlier today was walking to go to the bathroom admitted about 10 feet before having to stop with the walker and take a longer break that he normally would have. Admission Exam Per Admitting Provider Constitutional: WD/WN, vitals as above Eyes: PERRL, conjunctivae normal, anicteric sclerae Respiratory: normal respiratory effort, lungs clear to auscultation Auscultation: no crackles, no rales, no rhonchi and no wheezes Cardiovascular: Rate/Rhythm: + irregularly irregular Heart Sounds: no gallop, no murmur and no cardiac rub Vessels: normal peripheral pulses; no JVD Extremities: no calf tenderness and no edema Gastrointestinal (Abdomen): Inspection/Auscultation: normal bowel sounds and + abdominal wall ecchymosis; abdomen not distended Percussion/Palpation: abdomen soft; abdomen nontender and no guarding Musculoskeletal: no cyanosis or clubbing, extremities motor strength 5/5 Skin: + ecchymosis (Numerous, over upper and lower extremities and abdomen) Neurologic: PERRL, EOMI, accommodation nl, no face palsy, no dysarthria CN's II-XI intact bilaterally and moves all extremities Psychiatric: Orientation: alert and oriented x 3 Principal Diagnosis Syncope Discharge Exam Constitutional: in no apparent distress, sitting comfortably in chair Eyes: EOMI, pupils equal and reactive bilaterally, no scleral icterus Cardiac: RRR, no murmurs, gallops or rubs. Normal S1, S2 Pulm: CTA BL, no wheezes, rhonchi, crackles or rubs, moving air well throughout both lungs Abd: soft, nontender, mildly distended, normal bowel sounds, no rebound or guarding, incisions healing well with serous discharge. some redness of skin by right lateral brittaney. anterior and left side normal with granulation tissue. Extremities: 2+ peripheral pulses, no edema Neuro: no focal deficits, moving all 4 limbs, A&Ox3 Discharge Data Allergies Allergy/AdvReac Type Severity Reaction Status Date / Time Iodinated Contrast Media Allergy Severe ANAPHYLAXIS Verified 11/26/20 11:10 Sulfa (Sulfonamide Allergy Unknown UNKNOWN Verified 11/26/20 11:10 Antibiotics) Consultations 11/22/20 19:52 ED Decision to Admit Stat 11/26/20 07:00 Consult Gastroenterology Routine 11/26/20 16:01 Consult General Surgery Routine 12/04/20 11:13 Consult Palliative Care Routine Procedures Performed Operation Date: 11/26/20 16:25 Actual Procedures p Esophagogastroduodenoscopy - MD ama Fall Colonoscopy Biopsy Cytology - Drew Tam MD Operation Date: 11/28/20 11:35 Actual Procedures p Laparoscopic Ileocecectomy and umbilical hernia repair(Not Applicable) - Wesley Saleem, Ordered Studies 11/22/20 17:06 CT cervical spine wo con Stat CT head/brain wo con Stat 11/22/20 17:18 CT abd pelvis wo con Stat 11/26/20 15:18 CT chest diagnostic wo con Routine 11/28/20 09:00 US - OR guided needle placemen Stat 12/01/20 15:20 CT abd pelvis oral con only Urgent Hospital Course (1) Postoperative ileus: Matty Smiley is a 89-year-old male with past medical history significant for A. fib, diastolic CHF, prior CVA, frequent falls, known AAA, CKD stage III, and COPD; who presented with hypotension, now with postop ileus after surgery for a cecal mass. Cecal Mass - found on colonoscopy, removed via laproscopic hemicolectomy on 11/28/20 - pathology negative for high grade dysplasia. Papillovillous adenoma. - Discharged on POD 14 after staple removal and redressing of surgical incisions - intermediate problem of postoperative ileus briefly requiring PPN that resolved prior to discharge - discharged on low fiber diet with recommendations for protein boost drinks to help resolve severe protein calorie malnutrition Anemia s/p 4u transfusion and venofer - Iron deficiency and acute blood loss anemia from likely appendiceal mass - Colonoscopy shows appendiceal mass there are diverticula without evidence of acute bleeding. - EGD showing hiatal hernia w/o gastritis or bleeding - stable at discharge, hg 8.8 Atrial Fibrillation - rate control with metoprolol; eliquis discontinued in setting of multiple falls and anemia All other chronic medical conditions managed per home regimen Total Time Total Time Spent Total Time Spent (In Minutes): 20 Discharge Plan Discharge Items Patient Disposition: Personal Chcf Reason For Visit: ANEMIA, HYPOTENSION Discharge Diagnosis: Cecal mass, Post op Ileus Activity: Resume your previous activity Non-emergency contact: Primary Care Provider and Surgeon Call non-emergency contact if: you have any medication questions, your symptoms worsen, your pain is not controlled, your pain is worsening, your pain is concerning for you, you have a fever, your temperature is above 101.5, your wound has increased drainage and your wound pain has increased Follow-up/Referrals: Wesley Saleem, [Surgeon] - 12/25/20 9:45 am () Hakan Willingham [Primary Care Provider] - Diet: Low Fiber Ne Attending Provider Instructions: You were admitted to the hospital for confusion and falls, and found to have a mass in your colon which needed to be removed. You underwent a right hemicolectomy with Dr. Saleem to remove the mass. 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 Your brittaney were removed on the day of discharge. You were found to be anemia and have low blood counts, so you had 4 units of blood transfused during your stay and received IV iron to help with creation of new blood cells. The upper GI scope showed a hiatal hernia which was surgical fixed, and the lower GI scope showed the mass and diverticula without any active bleeding. Because of the numerous falls you have had, you were taken off the blood thinner (eliquis) as it increases your chance of having a major bleeding event if you fall again. Continue taking your metoprolol to control your heart rate, aspirin to prevent strokes, and atorvastatin to control your cholesterol. We also recommend you increase your caloric intake with protein drinks to help you gain weight and energy. You need to eat a Low Fiber diet to make sure you do not have problems with digestion going forward. If you have problems with your bowels, incisions, or pain in your incision sites, call your surgeon. For other medical questions or concerns, call your primary doctor. [employer] Provider Instructions: Pending Studies at Discharge: No Stand-Alone Forms: My Zubie, Smoking Cessation Skilled Items Patient informed of condition?: Yes DNR: Yes Discharge Level of Care: Acute rehab Communicable Disease: No Discharge Prognosis: Stable Lines: None Urinary Catheter: No Medications and DC Order Prescriptions: New aspirin 81 mg Tablet,Delayed Release (Dr/Ec) 81 mg PO DAILY Qty: 30 RF: 0 pantoprazole 40 mg Tablet,Delayed Release (Dr/Ec) 40 mg PO BID Qty: 60 RF: 0 methimazole 5 mg Tablet 5 mg PO DAILY 30 Days Qty: 30 RF: 0 atorvastatin 40 mg tablet 40 mg PO HS 30 Days Qty: 30 RF: 0 aspirin 81 mg Tablet,Delayed Release (Dr/Ec) 81 mg PO DAILY Qty: 30 RF: 0 ferrous sulfate 325 mg (65 mg iron) Tablet 325 mg PO BID 30 Days Qty: 60 RF: 0 bumetanide 1 mg tablet 1 mg PO QAM 30 Days Qty: 30 RF: 0 calcium citrate 200 mg (950 mg) Tablet 200 mg PO BID 30 Days Qty: 60 RF: 0 Continued multivitamin Tablet 1 tab PO DAILY RF: 0 fluticasone propion-salmeterol [Advair Diskus] 250-50 mcg/dose blister with device 1 ea INHALATION BID RF: 0 methimazole 5 mg tablet 5 mg PO DAILY RF: 0 cholecalciferol (vitamin D3) [Vitamin D3] 125 mcg (5,000 unit) Tablet 125 mcg PO WK RF: 0 potassium chloride 10 mEq capsule, extended release 10 meq PO QPM 30 Days Qty: 30 RF: 0 pantoprazole 40 mg tablet,delayed release (DR/EC) 40 mg PO DAILY 30 Days Qty: 0 RF: 0 docusate sodium [Colace] 100 mg Capsule 100 mg PO BID 30 Days Qty: 60 RF: 0 metoprolol succinate 25 mg tablet extended release 24 hr 25 mg PO DAILY Qty: 25 RF: 0 Discontinued ipratropium-albuterol 0.5 mg-3 mg(2.5 mg base)/3 mL Solution For Nebulization 3 ml INHALATION Q4H PRN (Reason: Shortness Of Breath Or Wheezing) RF: 0 polyethylene glycol 3350 [Miralax] 17 gram Powder In Packet 17 g PO DAILY PRN (Reason: Constipation) RF: 0 Discharge Orders: Discharge Order (Routine); Ordered 12/12/20 Ordered By: Virginia House/Sami Patient Handouts: Ileus Admission Data Admit Date/Time: 11/22/20 20:55 Attending Provider: Kennedy Galan Admit Provider: Fernando Souza Primary Care Provider: Hakan Willingham Other Providers: Yudelka Noel Lat[place] ; Sree Gonzalez ; Drew Tam ; Nathaniel Ortega ; Charley Temple ; Woody Soares ; Virginia Oliva Other Interventions: Discharge Summary Assessment (RN) Last Done: 12/12/20 12:54 Supervising Physician Co-Signing Physician Notes I also saw the patient and confirmed tobias portions of the history and exam. I agree with the impression and plan as noted in the resident documentation. He sitting the bedside chair. He is looking forward to discharge. With the denial to his original choice of nursing facilities, family is now looking personal care at a separate facility. I had completed a peer to peer yesterday; there is an expedited appeal process -case management received a denial on the appeal, but then later today received a phone call from his insurance confirming approval. However at this point, arranges were made at the second facility already. Exam 99/67, 83, 18, 36.5, 96% on room air Pleasant. Alert. Cardiovascular irregularly irregular Lungs clear with nonlabored respirations Abdomen is soft and nontender Impression and plan Cecal mass status post ileocecectomy, postop day #14 Prolonged post-operative ileus, now resolved. Likely multifactorial and likely related to surgery, compounded by age, decreased mobility, and medications. He was not approved for SNF facility, even on expedited appeal. Family has move forward with personal chcf with services. Additional diagnoses per resident note Resident Activity Tracking Resident Involvement: Resident Care Provided Care Provided: Adult Hospital Medicine
== END 2020-12-12 16:21 | disposition home or self-care (01) | DRG 329 ==
LOC: ED 16:42 → SUATTDRO 20:55 → 2E 20:55 → 3W 12-05 09:14

== ENCOUNTER 2020-12-13 16:14 | Observation (INO) ==
[2020-12-13 17:38] LABS: Basophils # (auto) 0.01 K/uL (0-0.2); Basophils % (auto) 0.1 %; Eosinophils # (auto) 0.29 K/uL (0-0.5); Eosinophils % (auto) 3.3 %; Hematocrit (blood only) 27.3 % (42-52); Hemoglobin 8.2 g/dL (14.0-18.0); Immature Granulocytes # (auto) 0.06 K/uL (0.00-0.02); Immature Granulocytes % (auto) 0.7 %; Lymphocytes # (auto) 1.07 K/uL (1.2-3.4); Mean Corpuscular Hemoglobin 25.3 pg (25-34); Mean Corpuscular Volume 84.3 fL (80-100); Mean Platelet Volume 9.4 fL (7.4-10.4); Monocytes # (auto) 1.12 K/uL (0.11-0.59); Monocytes % (auto) 12.6 %; Neutrophils # (auto) 6.34 K/uL (1.4-6.5); Neutrophils % (auto) 71.3 %; Platelet Count 365 K/uL (130-400); RDW Coefficient of Variation 17.3 % (11.5-14.5); Red Blood Count 3.24 M/uL (4.7-6.1); White Blood Count 8.89 K/uL (4.8-10.8)
--- NOTE | 2020-12-13 17:40 | XRay Report ---
XR chest 1V portable HISTORY: Shortness of breath. fluid overload COMPARISON: Chest 12/06/2020. FINDINGS: No pneumothorax. The cardiac silhouette remains enlarged. Small bilateral pleural effusions and bibasilar densities have slightly improved. Mild congestive change has also improved. No new foc al lung consolidations identified. Right paratracheal soft tissue prominence remains stable. IMPRESSION: Cardiomegaly with mild congestive change and bibasilar densities/effusions. This has improved in the interval. ACT 112: Negative or not required by law. Electronically signed by: Marty Do M.D. 12/13/2020 5:39 PM
[2020-12-13] MEDS ORDERED: SODIUM CHLORIDE 0.9% 250 ML IV PRN (17:44)
[2020-12-13] MEDS ORDERED: SODIUM CHLORIDE 0.9% 250 ML IV ONE (17:45)
--- NOTE | 2020-12-13 17:50 | Emergency Department Note ---
History of Present Illness General Chief complaint: Swelling/Edema to Extremity Stated complaint: leg swelling Time Seen by Provider: 12/13/20 17:32 Source: patient and family (Son who is at the bedside) Mode of arrival: ambulatory Limitations: no limitations History of Present Illness Maximum Pain Intensity: 0 This patient is a 89-year-old male who was just discharged from the hospital yesterday after being over 3 weeks comes in after having lower extremity edema. 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 He has had no fever no fall or trauma is no complaints the nurse noted that he had lower extremity edema. No shortness of breath. His stool has been black before and after the surgery. Home Medications Medication Instructions Recorded Confirmed Type cholecalciferol (vitamin D3) 125 mcg PO WK 11/22/20 12/13/20 History [Vitamin D3] methimazole 5 mg PO DAILY 11/22/20 12/13/20 History multivitamin 1 tab PO DAILY 11/22/20 12/13/20 History aspirin 81 mg PO DAILY #30 tab 12/12/20 12/13/20 Rx atorvastatin 40 mg PO HS 30 Days #30 tab 12/12/20 12/13/20 Rx bumetanide 1 mg PO QAM 30 Days #30 tab 12/12/20 12/13/20 Rx calcium citrate 200 mg PO BID 30 Days #60 tab 12/12/20 12/13/20 Rx docusate sodium [Colace] 100 mg PO BID 30 Days #60 cap 12/12/20 12/13/20 Rx ferrous sulfate 325 mg PO BID 30 Days #60 tab 12/12/20 12/13/20 Rx metoprolol succinate 25 mg PO DAILY #25 tab 12/12/20 12/13/20 Rx pantoprazole 40 mg PO BID #60 tab 12/12/20 12/13/20 Rx potassium chloride 10 meq PO QPM 30 Days #30 cap 12/12/20 12/13/20 Rx Allergies Allergy/AdvReac Type Severity Reaction Status Date / Time Iodinated Contrast Media Allergy Severe ANAPHYLAXIS Verified 12/13/20 19:39 Sulfa (Sulfonamide Allergy Unknown UNKNOWN Verified 12/13/20 19:39 Antibiotics) Past Med/Surg History Medical History 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 Cancer lYMPHOMA Cholelithiasis Chronic obstructive pulmonary disease Congestive heart failure Depression GERD (gastroesophageal reflux disease) HTN (hypertension) Hypertension Hyperthyroidism Kidney stone Lymphoma Palliative care encounter Respiratory failure requiring intubation Severe protein-calorie malnutrition Status post placement of implantable loop recorder Stroke Weakness Surgical History History of cardiac cath Family History Unknown Myocardial infarction Social History Smoking Status: Never smoker Second Hand Exposure: No; Hx Alcohol Use: No Hx Substance Use: No Preferred Language: Qatari Communication Ability: Impaired Visual Impairment: Partially Limited Maintenance Representative Required: No Beliefs That Will Affect Care: None marital status: / Current Living Situation: Alone Current Living Situation Comment: caregiver 24 hour How many Children do You have: 6 Feels Safe at Home: Yes Assistive Devices: Walker Review of Systems A total of 10 systems reviewed and were otherwise negative Physical Exam Vital Signs Vital Signs - 24 hr 12/13/20 16:15 12/13/20 17:00 12/13/20 17:03 Temperature 36.8 C Temperature Source Temporal Artery Scan Pulse Rate 94 H 79 93 H Pulse Rate [Finger] Pulse Rate from SpO2 Sensor 80 91 H Respiratory Rate 18 27 H 18 Blood Pressure 93/58 L 86/64 L Blood Pressure [Left Arm] Blood Pressure Mean 69 71 Blood Pressure Mean [Left Arm] Pulse Oximetry 96 95 97 Oxygen Delivery Method Room Air Room Air Room Air Sepsis Recent Fever Within 48 Hours No Sepsis New/Unexplained Change in Mental Status No Sepsis Action Taken by Nursing No Action Required 12/13/20 17:10 12/13/20 17:20 12/13/20 17:30 Temperature Temperature Source Pulse Rate 89 91 H 95 H Pulse Rate [Finger] Pulse Rate from SpO2 Sensor 85 92 H 90 Respiratory Rate 27 H 23 22 Blood Pressure 84/69 L Blood Pressure [Left Arm] Blood Pressure Mean 74 Blood Pressure Mean [Left Arm] Pulse Oximetry 95 93 Oxygen Delivery Method Room Air Room Air Room Air Sepsis Recent Fever Within 48 Hours Sepsis New/Unexplained Change in Mental Status Sepsis Action Taken by Nursing 12/13/20 17:31 12/13/20 17:40 12/13/20 17:50 Temperature Temperature Source Pulse Rate 91 H 94 H 92 H Pulse Rate [Finger] Pulse Rate from SpO2 Sensor 91 H 90 90 Respiratory Rate 27 H 23 20 Blood Pressure Blood Pressure [Left Arm] Blood Pressure Mean Blood Pressure Mean [Left Arm] Pulse Oximetry 94 96 Oxygen Delivery Method Room Air Room Air Room Air Sepsis Recent Fever Within 48 Hours Sepsis New/Unexplained Change in Mental Status Sepsis Action Taken by Nursing 12/13/20 18:00 12/13/20 18:01 12/13/20 18:09 Temperature Temperature Source Pulse Rate 85 72 Pulse Rate [Finger] 88 Pulse Rate from SpO2 Sensor 89 86 Respiratory Rate 21 15 18 Blood Pressure 101/66 Blood Pressure [Left Arm] 101/66 Blood Pressure Mean 77 Blood Pressure Mean [Left Arm] 77 Pulse Oximetry 96 91 96 Oxygen Delivery Method Room Air Room Air Room Air Sepsis Recent Fever Within 48 Hours Sepsis New/Unexplained Change in Mental Status Sepsis Action Taken by Nursing 12/13/20 18:10 12/13/20 18:20 12/13/20 18:30 Temperature Temperature Source Pulse Rate 87 89 84 Pulse Rate [Finger] Pulse Rate from SpO2 Sensor 88 86 88 Respiratory Rate 24 18 17 Blood Pressure Blood Pressure [Left Arm] Blood Pressure Mean Blood Pressure Mean [Left Arm] Pulse Oximetry 96 97 95 Oxygen Delivery Method Room Air Room Air Room Air Sepsis Recent Fever Within 48 Hours Sepsis New/Unexplained Change in Mental Status Sepsis Action Taken by Nursing 12/13/20 18:31 12/13/20 18:40 12/13/20 18:50 Temperature Temperature Source Pulse Rate 87 89 95 H Pulse Rate [Finger] Pulse Rate from SpO2 Sensor 88 89 91 H Respiratory Rate 18 29 H 27 H Blood Pressure 84/50 L Blood Pressure [Left Arm] Blood Pressure Mean 61 Blood Pressure Mean [Left Arm] Pulse Oximetry 94 95 96 Oxygen Delivery Method Room Air Room Air Room Air Sepsis Recent Fever Within 48 Hours Sepsis New/Unexplained Change in Mental Status Sepsis Action Taken by Nursing General: Well developed well nourished older male who appears in no acute distress, breathing comfortably on room air. Normal speech HEENT: Normal cephalic atraumatic. Pupils are equal round and reactive to light. Extraocular movements are intact. Oropharynx is pink with somewhat dry mucous membranes. No swelling of the mouth lips or tongue. Neck: Supple with a midline trachea. No meningeal signs or stiffness, no JVD or bruits. No Stridor. Chest: Clear to auscultation bilaterally. No wheezes or rhonchi. No increased work of breathing. Heart: Regular rate and rhythm without murmurs or gallops. Abdomen: Soft nontender, nondistended without rebound guarding or rigidity. Extremities: No cyanosis clubbing he does have 1-2+ bilateral lower extremity edema that is pitting Spine/Back. Non tender to palpation. No CVA tenderness Skin: Good turgor without rashes. Neurologic exam: Cranial nerves two through 12 are intact. Motor and sensation are intact and symmetrical throughout. Course Administered Medications Atorvastatin Calcium (Atorvastatin 40 Mg Tab) 40 mg PO HS DAVID Stop: 01/12/21 21:59 Last Admin: 12/13/20 23:00 Dose: 40 mg Documented by: [id number] Docusate Sodium (Docusate Sodium 100 Mg Cap) 100 mg PO BID DAVID Stop: 01/12/21 21:59 Last Admin: 12/13/20 23:00 Dose: 100 mg Documented by: [id number] Ferrous Sulfate (Ferrous Sulfate 325 Mg Tab) 325 mg PO BID DAVID Stop: 01/12/21 21:59 Last Admin: 12/13/20 23:00 Dose: 325 mg Documented by: [id number] Albumin Human (Albumin 5%) 250 mls @ 50 mls/hr IV ONE ONE Stop: 12/14/20 02:59 Last Admin: 12/13/20 22:54 Dose: 50 mls/hr Documented by: [id number] Lidocaine HCl (Lidocaine 2% Jelly 5 Ml Tube) 0 ml EXT PRN PRN PRN Reason: CATH INSERTION Stop: 01/12/21 22:19 Last Admin: 12/13/20 22:27 Dose: 5 ml Documented by: [id number] Potassium Chloride (Potassium Chloride 10 Meq Tabcr) 10 meq PO QPM DAVID Stop: 01/12/21 21:59 Last Admin: 12/13/20 23:01 Dose: 10 meq Documented by: [id number] Discontinued Medications Sodium Chloride (Nss) 250 mls @ 999 mls/hr IV .Q16M ONE Stop: 12/13/20 18:00 Last Admin: 12/13/20 18:57 Dose: Not Given Documented by: [id number] Medical Decision Making Differential Diagnosis CHF, hypotension, anemia, electrolyte or metabolic abnormality, acute coronary Medical Records Attestation: I reviewed the patient's medical records. Home Medications Current Medication List: was personally reviewed by me Laboratory Data Attestation: I reviewed the patient's lab results. Result diagrams: 12/13/20 17:20 12/13/20 17:20 Lab Results 12/13/20 12/13/20 12/13/20 Range/Units 17:20 17:20 17:20 WBC 8.89 (4.8-10.8) K/uL RBC 3.24 L (4.7-6.1) M/uL Hgb 8.2 L (14.0-18.0) g/dL Hct 27.3 L (42-52) % MCV 84.3 (80-100) fL MCH 25.3 (25-34) pg MCHC 30.0 L (32-36) g/dL RDW Std Deviation 54.0 H (36.4-46.3) fL RDW Coeff of Jennifer 17.3 H (11.5-14.5) % Plt Count 365 (130-400) K/uL MPV 9.4 (7.4-10.4) fL Immature Gran % (Auto) 0.7 % Neut % (Auto) 71.3 % Lymph % (Auto) 12.0 % [place] % (Auto) 12.6 % Eos % (Auto) 3.3 % Baso % (Auto) 0.1 % Neut # (Auto) 6.34 (1.4-6.5) K/uL Lymph # (Auto) 1.07 L (1.2-3.4) K/uL [place] # (Auto) 1.12 H (0.11-0.59) K/uL Eos # (Auto) 0.29 (0-0.5) K/uL Baso # (Auto) 0.01 (0-0.2) K/uL Immature Gran # (Auto) 0.06 H (0.00-0.02) K/uL Sodium 139 (136-145) mmol/L Potassium 3.6 (3.5-5.1) mmol/L Chloride 107 (98-107) mmol/L Carbon Dioxide 26 (21-32) mmol/L Anion Gap 6.0 (3-11) BUN 18 (7-18) mg/dl Creatinine 0.98 (0.6-1.4) mg/dl Est Cr Clr Drug Dosing Not Reportable Est GFR ( Amer) 79.5 ml/min Est GFR (Non-Af Amer) 68.6 ml/min BUN/Creatinine Ratio 18.5 (10-20) Glucose 97 (70-99) mg/dl Calcium 7.2 L (8.5-10.1) mg/dl Total Bilirubin 0.6 (0.2-1) mg/dl AST 34 (15-37) U/L ALT 20 (12-78) U/L Alkaline Phosphatase 153 H (45-117) U/L Troponin I 0.034 (0-0.045) ng/ml NT-Pro-B Natriuret Pep 3979 H (0-1800) pg/ml Total Protein 4.7 L (6.4-8.2) gm/dl Albumin 1.7 L (3.4-5.0) gm/dl Globulin 3.0 (2.5-4.0) gm/dl Albumin/Globulin Ratio 0.6 L (0.9-2) Urine Color Urine Appearance (Clear) Urine pH (4.5-7.5) Ur Specific [place] (1.000-1.030) Urine Protein (Negative) Urine Glucose (UA) (Negative) Urine Ketones (Negative) Urine Blood (Negative) Urine Nitrite (Negative) Urine Bilirubin (Negative) Urine Urobilinogen (Negative) Ur Leukocyte Esterase (Negative) Urine WBC (Auto) (0-5) /hpf Urine RBC (Auto) (0-4) /hpf U Hyaline Cast (Auto) (0-5) /lpf U Epithel Cells (Auto) (0-5) /lpf Urine Bacteria (Auto) (Negative) Blood Type Antibody Screen Crossmatch 12/13/20 12/13/20 Range/Units 18:05 18:06 WBC (4.8-10.8) K/uL RBC (4.7-6.1) M/uL Hgb (14.0-18.0) g/dL Hct (42-52) % MCV (80-100) fL MCH (25-34) pg MCHC (32-36) g/dL RDW Std Deviation (36.4-46.3) fL RDW Coeff of Jennifer (11.5-14.5) % Plt Count (130-400) K/uL MPV (7.4-10.4) fL Immature Gran % (Auto) % Neut % (Auto) % Lymph % (Auto) % [place] % (Auto) % Eos % (Auto) % Baso % (Auto) % Neut # (Auto) (1.4-6.5) K/uL Lymph # (Auto) (1.2-3.4) K/uL [place] # (Auto) (0.11-0.59) K/uL Eos # (Auto) (0-0.5) K/uL Baso # (Auto) (0-0.2) K/uL Immature Gran # (Auto) (0.00-0.02) K/uL Sodium (136-145) mmol/L Potassium (3.5-5.1) mmol/L Chloride (98-107) mmol/L Carbon Dioxide (21-32) mmol/L Anion Gap (3-11) BUN (7-18) mg/dl Creatinine (0.6-1.4) mg/dl Est Cr Clr Drug Dosing Est GFR ( Amer) ml/min Est GFR (Non-Af Amer) ml/min BUN/Creatinine Ratio (10-20) Glucose (70-99) mg/dl Calcium (8.5-10.1) mg/dl Total Bilirubin (0.2-1) mg/dl AST (15-37) U/L ALT (12-78) U/L Alkaline Phosphatase (45-117) U/L Troponin I (0-0.045) ng/ml NT-Pro-B Natriuret Pep (0-1800) pg/ml Total Protein (6.4-8.2) gm/dl Albumin (3.4-5.0) gm/dl Globulin (2.5-4.0) gm/dl Albumin/Globulin Ratio (0.9-2) Urine Color Yellow Urine Appearance Clear (Clear) Urine pH 5.5 (4.5-7.5) Ur Specific [place] 1.014 (1.000-1.030) Urine Protein Negative (Negative) Urine Glucose (UA) Negative (Negative) Urine Ketones Negative (Negative) Urine Blood Negative (Negative) Urine Nitrite Positive A (Negative) Urine Bilirubin Negative (Negative) Urine Urobilinogen Negative (Negative) Ur Leukocyte Esterase Trace H (Negative) Urine WBC (Auto) 10-30 H (0-5) /hpf Urine RBC (Auto) 0-4 (0-4) /hpf U Hyaline Cast (Auto) 1-5 (0-5) /lpf U Epithel Cells (Auto) 20-30 H (0-5) /lpf Urine Bacteria (Auto) 4+ H (Negative) Blood Type O Positive Antibody Screen NEGATIVE Crossmatch See Detail Imaging Data Attestation: I personally reviewed and interpreted this imaging study as follows: My Impression: Chest x-raycardiomegaly with some mild congestive change Radiologist's Impression: Chest X-Ray 12/13/20 16:41 XR chest 1V portable HISTORY: Shortness of breath. fluid overload COMPARISON: Chest 12/06/2020. FINDINGS: No pneumothorax. The cardiac silhouette remains enlarged. Small bilateral pleural effusions and bibasilar densities have slightly improved. Mild congestive change has also improved. No new focal lung consolidations identified. Right paratracheal soft tissue prominence remains stable. IMPRESSION: Cardiomegaly with mild congestive change and bibasilar densities/effusions. This has improved in the interval. ACT 112: Negative or not required by law. Electronically signed by: Marty Do M.D. 12/13/2020 5:39 PM ECG Data Attestation: I personally reviewed and interpreted this ECG as follows: Indication: + weakness and + other (Lower extremity edema) Rate (beats per minute): 87 Rhythm: + atrial fibrillation ECG Intervals/blocks: + Right Bundle branch block ECG ST segments: + Normal ST segments ECG Findings: no PACs and no PVCs Comparison ECG Date: from (10/25/20) Change: no significant change MDM Narrative This patient comes in as described above. He was placed on a environmental monitoring specialist in room a and. He iss here for treatment evaluation of lower extremity edema. He was also noted to be on the hypotensive side his blood pressure was in the 90s I went in there is in the 80s. He does look dry I think he actually is probably intravascularly dry. His hemoglobin did come back a little low at 8.2 he may actually need blood and further diuresis. I do think he will need to be admitted for these measures. His hemoglobin is low at 8.2 although last check it was 8 7. He has no significant electrolyte or metabolic abnormalities. Chest x-ray does show congestive heart failure changes but they are improved compared to before. EKG does not show any ischemic change in his chronic A. fib. BNP was elevated consistent with CHF. Troponin is not elevated. Given the fact that he has fluid retention possible need for further transfusion and hypotension I do think he needs to be admitted. I did look through his chart was in the hospital and he was running chronically on the hypotensive side. I do not feel he septic likely at this point. I did consult the [facility] hospitalist group to see him in the ER for these measures. Continuous cardiac monitoring: Due to low blood pressure and peripheral edema and concern for cardiac disease, orders placed in EMR for continuous cardiac monitoring. Upon my interpretation the patient was noted to be an a rate controlled A. fib at 87. Impression & Plan Hypotension, Anemia, Bilateral edema of lower extremity, CHF (congestive heart failure) Discharge Plan Visit Data Chief Complaint: Swelling/Edema to Extremity Stated Complaint: leg swelling ED Provider: Ryan Marshall Discharge Problem: Hypotension, Anemia, Bilateral edema of lower extremity, CHF (congestive heart failure) Patient Disposition: Admitted As Inpatient Discharge Instructions Interventions: ED Discharge Assessment Last Done: 12/13/20 21:16 Discharge Problem: Hypotension Qualifiers: Hypotension type: unspecified hypotension type Qualified Code(s): I95.9 - Hypotension, unspecified Anemia Qualifiers: Anemia type: iron deficiency Iron deficiency anemia type: chronic blood loss Qualified Code(s): D50.0 - Iron deficiency anemia secondary to blood loss (chronic) CHF (congestive heart failure) Qualifiers: Heart failure type: unspecified Heart failure chronicity: acute on chronic Qualified Code(s): I50.9 - Heart failure, unspecified
[2020-12-13 17:59] LABS: Alanine Aminotransferase 20 U/L (12-78); Albumin Level 1.7 gm/dl (3.4-5.0); Aspartate Aminotransferase 34 U/L (15-37); BUN Creatinine Ratio 18.5 (10-20); Blood Urea Nitrogen 18 mg/dl (7-18); Calcium 7.2 mg/dl (8.5-10.1); Carbon Dioxide 26 mmol/L (21-32); Chloride 107 mmol/L (98-107); Est GFR (African American) 79.5 ml/min; Est GFR (Non-African American) 68.6 ml/min; Glucose 97 mg/dl (70-99); Potassium 3.6 mmol/L (3.5-5.1); Sodium 139 mmol/L (136-145)
[2020-12-13 18:02] LABS: Albumin Globulin Ratio 0.6 (0.9-2); Alkaline Phosphatase 153 U/L (45-117); Bilirubin,Total 0.6 mg/dl (0.2-1); Total Protein 4.7 gm/dl (6.4-8.2)
[2020-12-13 18:17] LABS: Troponin I 0.034 ng/ml (0-0.045)
[2020-12-13 18:55] LABS: Appearance Urine Clear (Clear); Bacteria Urine Automated 4+ (Negative); Bilirubin Urine Negative (Negative); Blood Urine Negative (Negative); Color Urine Yellow; Epithelial Cell Urine Auto 20-30 /lpf (0-5); Glucose Urine UA Negative (Negative); Ketones Urine Negative (Negative); Leukocyte Esterase Urine Trace (Negative); Nitrite Urine Positive (Negative); Protein Urine Negative (Negative); RBC Urine Automated 0-4 /hpf (0-4); Specific Gravity Urine 1.014 (1.000-1.030); Urobilinogen Urine Negative (Negative); pH Urine 5.5 (4.5-7.5)
[2020-12-13] MEDS ORDERED: ALBUMIN 5% 250 ML IV ONE ×2 (19:12→22:00)
--- NOTE | 2020-12-13 19:27 | History & Physical Report ---
Date of Service December 13, 2020 Assessment & Plan (1) Lower extremity edema: Matty is an 89-year-old male with history of A. fib, diastolic CHF, prior CVA, frequent falls, CKD and COPD readmitted now with significant bilateral lower extremity edema. Bilateral lower extremity edema Likely secondary to protein malnutrition and possible right heart failure after ingesting nearly 2 L of fluid in a short period of time. Prior echo in September showed preserved EF 60 to 65%, mild concentric left ventricular hypertrophy. On the echo there was a flattened septum consistent with right sided overload. BNP is 3979; on review of prior records he has had BNP's that are elevated but corresponding physical exam does not show significant volume overload. Albumin 1.7 Given 1 bolus of IV albumin followed by 1 mg of IV Bumex on admission. JOSE hose for some light compression. Daily weights I's and O's Diastolic heart failure, in exacerbation See above. He is on 1 mg Bumex p.o. at home. Hypotension Suspect that despite his peripheral edema, he is probably intravascularly dry. We will need to carefully diurese. Holding home metoprolol. Anemia Prior hemoglobin on December 05 was 8.8. Hemoglobin on admission today is 8.2. 2 units are on hold if his hemoglobin drops tomorrow morning. Unclear if this is secondary to continued slow GI bleed from his prior surgery vs slow bone marrow recovery from prior anemia. Check FOBT Repeat hemoglobin in the morning. Atrial fibrillation Currently rate controlled. We will hold his metoprolol succinate 25 mg given his low blood pressures and adequate rate at this time. If his rate increases, we can restart his metoprolol at a lower dose. Previously anticoagulated with Eliquis but this was discontinued during a previous admission in the setting of multiple falls and anemia secondary to bleed. COPD Not in exacerbation Home Advair transition to Breo (formulary) Hyperthyroid Continue home methimazole Prior CVA No deficits. Holding home aspirin. Continue atorvastatin. GERD Continue home Protonix Diet: heart health, low sodium DVT prophylaxis: No pharmacologic prophylaxis in the setting of anemia ?slow bleeding CODE: DNR/DNI Dispo: pending clinical improvement. (2) Anemia: (3) Atrial fibrillation, permanent: (4) Diastolic CHF: (5) Hyperlipidemia: (6) History of CVA (cerebrovascular accident): (7) Chronic kidney disease, stage 3a: (8) Hyperthyroidism: (9) GERD (gastroesophageal reflux disease): (10) Chronic obstructive pulmonary disease: History of Present Illness Primary Care Provider: Hakan Starr is a 89-year-old male with history of A. fib, diastolic CHF, frequent falls, CKD, COPD and prior CVA admitted with new lower extremity edema from the [facility]. His son Nathaniel is at the bedside. He was discharged yesterday after a prolonged stay for hypotension. 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 His surgical recovery was complicated by postoperative ileus and protein calorie malnutrition. His hemoglobin on December 05 was 8.8 after 4 units of packed red blood cells and a dose of venofer. He returns to the emergency room today with concerns of significant lower extremity swelling. This was noticed by the nurse at the [facility]. He reports that he had some scrotal swelling that started prior to hospital discharge. However, this was not concerning to him as he felt that it would probably resolve after discharge. Yesterday and today, he reports that he had trouble finding the tip of his penis due to the scrotal swelling. He denies any weakness or heaviness in his legs. He does not recall having major issues with lower extremity swelling in the past. He does note that today at lunch, he became extremely thirsty and drank nearly 2 L of fluids that included water, orange juice, coffee and felicia kari. He denies any increase in salt intake. Denies chest pain, dyspnea. Allergies Allergy/AdvReac Type Severity Reaction Status Date / Time Iodinated Contrast Media Allergy Severe ANAPHYLAXIS Verified 12/13/20 19:39 Sulfa (Sulfonamide Allergy Unknown UNKNOWN Verified 12/13/20 19:39 Antibiotics) Home Medications Medication Instructions Recorded Confirmed Type cholecalciferol (vitamin D3) 125 mcg PO WK 11/22/20 12/13/20 History [Vitamin D3] methimazole 5 mg PO DAILY 11/22/20 12/13/20 History multivitamin 1 tab PO DAILY 11/22/20 12/13/20 History aspirin 81 mg PO DAILY #30 tab 12/12/20 12/13/20 Rx atorvastatin 40 mg PO HS 30 Days #30 tab 12/12/20 12/13/20 Rx bumetanide 1 mg PO QAM 30 Days #30 tab 12/12/20 12/13/20 Rx calcium citrate 200 mg PO BID 30 Days #60 tab 12/12/20 12/13/20 Rx docusate sodium [Colace] 100 mg PO BID 30 Days #60 cap 12/12/20 12/13/20 Rx ferrous sulfate 325 mg PO BID 30 Days #60 tab 12/12/20 12/13/20 Rx metoprolol succinate 25 mg PO DAILY #25 tab 12/12/20 12/13/20 Rx pantoprazole 40 mg PO BID #60 tab 12/12/20 12/13/20 Rx potassium chloride 10 meq PO QPM 30 Days #30 cap 12/12/20 12/13/20 Rx Past Med/Surg History Medical History 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 Cancer lYMPHOMA Cholelithiasis Chronic obstructive pulmonary disease Congestive heart failure Depression GERD (gastroesophageal reflux disease) HTN (hypertension) Hypertension Hyperthyroidism Kidney stone Lymphoma Palliative care encounter Respiratory failure requiring intubation Severe protein-calorie malnutrition Status post placement of implantable loop recorder Stroke Weakness Surgical History History of cardiac cath Family History Unknown Myocardial infarction Social History Smoking Status: Never smoker Second Hand Exposure: No; Hx Alcohol Use: No Hx Substance Use: No Preferred Language: French Communication Ability: Impaired Visual Impairment: Partially Limited Dialysis Equipment Technician Required: No Beliefs That Will Affect Care: None marital status: / Current Living Situation: Alone Current Living Situation Comment: caregiver 24 hour How many Children do You have: 6 Feels Safe at Home: Yes Assistive Devices: Walker Review of Systems Constitutional: no fever, no chills, no sweats, no malaise and no weight loss Respiratory: no cough, no change in sputum, no dyspnea, no dyspnea on exertion, no hemoptysis and no wheezing Cardiovascular: + edema; no chest pain, no chest pain with activity and no paroxysmal nocturnal dyspnea Gastrointestinal: no bloating, no nausea, no vomiting, no change in stools, no diarrhea/loose stools and no melena Integumentary: no unusual bruising Neurologic: no generalized weakness, no paresthesia and no dizziness Physical Exam Constitutional: well developed, average body habitus, + frail appearing, comfortable and + edematous; not in distress, not diaphoretic and not malnourished Eyes: EOM intact bilaterally and reactive pupils; no conjunctival abnormality and no scleral abnormality ENMT: external ear and nose normal, oropharynx normal Neck: trachea midline, no thyromegaly Respiratory: normal respiratory effort, + retractions and able to speak in complete sentences; no respiratory distress, no labored breathing, does not use accessory muscles, no cough, not tachypneic and expiratory phase not prolonged Auscultation: + crackles (Bilateral bases); no rhonchi and no wheezes Cardiovascular: Rate/Rhythm: regular rate and + irregularly irregular Heart Sounds: normal S1 and normal S2 Extremities: + edema (+2 edema to the hip bilaterally) Gastrointestinal (Abdomen): normal bowel sounds, soft, nontender, no hepatosplenomegaly Inspection/Auscultation: no abdominal edema Musculoskeletal: no cyanosis or clubbing, extremities motor strength 5/5 Skin: no rashes, warm and dry Neurologic: moves all extremities and awake Speech / Cognition: normal speech Motor/Sensory: no tremor Psychiatric: A+Ox3, euthymic affect Genitourinary: Scrotal edema Results & Data Results & Data ([facility]) Vital Signs (Past 12 Hours) Vital Signs Temp Pulse Pulse Resp BP BP Pulse Ox 12/13/20 18:50 95 H 27 H 96 12/13/20 18:40 89 29 H 95 12/13/20 18:31 87 18 84/50 L 94 12/13/20 18:30 84 17 95 12/13/20 18:20 89 18 97 12/13/20 18:10 87 24 96 12/13/20 18:09 88 18 101/66 96 12/13/20 18:01 72 15 91 12/13/20 18:00 85 21 101/66 96 12/13/20 17:50 92 H 20 12/13/20 17:40 94 H 23 96 12/13/20 17:31 91 H 27 H 94 12/13/20 17:30 95 H 22 84/69 L 12/13/20 17:20 91 H 23 93 12/13/20 17:10 89 27 H 95 12/13/20 17:03 93 H 18 97 12/13/20 17:00 79 27 H 86/64 L 95 12/13/20 16:15 36.8 C 94 H 18 93/58 L 96 Code Status & VTE Plan VTE Prophylaxis Plan VTE Prophylaxis will be ordered: Yes (1) Diastolic CHF Heart failure chronicity: chronic Qualified Code(s): I50.32 - Chronic diastolic (congestive) heart failure (2) Anemia Anemia type: unspecified type Qualified Code(s): D64.9 - Anemia, unspecified (3) Chronic obstructive pulmonary disease COPD type: chronic bronchitis Chronic bronchitis type: simple Qualified Code(s): J41.0 - Simple chronic bronchitis
[2020-12-13] MEDS ORDERED: BUMETANIDE 1 MG in SYRINGE 0 ML IV SCH (22:00)
[2020-12-13] MEDS ORDERED: ATORVASTATIN 40 MG TAB PO SCH (22:00)
[2020-12-13] MEDS ORDERED: POTASSIUM CHLORIDE 10 MEQ TABCR PO SCH (22:00)
[2020-12-13] MEDS ORDERED: NURSING DECISION MEDICATION ONE (22:13)
[2020-12-13] MEDS ORDERED: LIDOCAINE 2% JELLY 5 ML TUBE EXT PRN (22:20)
[2020-12-13] MEDS: DOCUSATE SODIUM 100 MG CAP PO SCH (23:00)
[2020-12-13] MEDS: FERROUS SULFATE 325 MG TAB PO SCH (23:00)
[2020-12-14] MEDS ORDERED: NURSING DECISION MEDICATION ONE (01:18)
[2020-12-14] MEDS: DOCUSATE SODIUM 100 MG CAP PO SCH (07:38)
[2020-12-14 07:43] LABS: Basophils # (auto) 0.01 K/uL (0-0.2); Basophils % (auto) 0.1 %; Eosinophils # (auto) 0.31 K/uL (0-0.5); Eosinophils % (auto) 3.4 %; Hematocrit (blood only) 30.6 % (42-52); Immature Granulocytes # (auto) 0.04 K/uL (0.00-0.02); Immature Granulocytes % (auto) 0.4 %; Lymphocytes # (auto) 1.01 K/uL (1.2-3.4); Lymphocytes % (auto) 11.2 %; Mean Corpuscular Hemoglobin 24.8 pg (25-34); Mean Corpuscular Hgb Conc 29.4 g/dL (32-36); Mean Corpuscular Volume 84.3 fL (80-100); Mean Platelet Volume 9.8 fL (7.4-10.4); Monocytes # (auto) 1.01 K/uL (0.11-0.59); Monocytes % (auto) 11.2 %; Neutrophils # (auto) 6.62 K/uL (1.4-6.5); Neutrophils % (auto) 73.7 %; Platelet Count 383 K/uL (130-400); RDW Coefficient of Variation 17.1 % (11.5-14.5); RDW Standard Deviation 52.9 fL (36.4-46.3); Red Blood Count 3.63 M/uL (4.7-6.1)
[2020-12-14] MEDS: FERROUS SULFATE 325 MG TAB PO SCH (08:10)
[2020-12-14 08:20] LABS: Albumin Level 1.9 gm/dl (3.4-5.0); BUN Creatinine Ratio 17.1 (10-20); Calcium 7.3 mg/dl (8.5-10.1); Creatinine Clr Calc Pharmacy 59.5 ml/min; Est GFR (African American) 80.5 ml/min; Est GFR (Non-African American) 69.4 ml/min; Potassium 3.5 mmol/L (3.5-5.1)
[2020-12-14 08:22] LABS: Albumin Globulin Ratio 0.6 (0.9-2); Bilirubin,Total 0.7 mg/dl (0.2-1); Total Protein 4.9 gm/dl (6.4-8.2)
[2020-12-14] MEDS ORDERED: MICONAZOLE NITRATE POWDER 43 GM EXT SCH (09:00)
[2020-12-14] MEDS ORDERED: FLUTICASONE/VILANTEROL 100/25MCG 14 PUFFS/INHALER INH SCH (09:00)
[2020-12-14] MEDS ORDERED: methIMAzole 5 MG TABLET PO SCH (09:00)
[2020-12-14] MEDS ORDERED: PANTOprazole 40 MG TAB PO SCH (09:00)
--- NOTE | 2020-12-14 10:59 | Electrocardiogram Report ---
Test Reason : Blood Pressure : / mmHG Vent. Rate : 087 BPM Atrial Rate : 084 BPM P-R Int : 000 ms QRS Dur : 164 ms QT Int : 446 ms P-R-T Axes : 000 092 -44 degrees QTc Int : 536 ms Atrial fibrillation Right bundle branch block T wave abnormality, consider lateral ischemia Abnormal ECG When compared with ECG of 22-NOV-2020 16:55, Inverted T waves have replaced nonspecific T wave abnormality in Inferior leads Confirmed by Nadeem Leone ([id number]) on 12/14/2020 10:59:29 AM Referred By: REFERRED SELF Confirmed By:Mlacolm Leone
[2020-12-14] MEDS ORDERED: NICOTINE POLACRILEX 2 MG GUM MT PRN (14:42)
--- NOTE | 2020-12-14 16:59 | Discharge Summary ---
Date of Service December 14, 2020 Admission HPI Per Admitting Provider Matty is a 89-year-old male with history of A. fib, diastolic CHF, frequent falls, CKD, COPD and prior CVA admitted with new lower extremity edema from the [facility]. His son Nathaniel is at the bedside. He was discharged yesterday after a prolonged stay for hypotension. 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 His surgical recovery was complicated by postoperative ileus and protein calorie malnutrition. His hemoglobin on December 05 was 8.8 after 4 units of packed red blood cells and a dose of venofer. He returns to the emergency room today with concerns of significant lower extremity swelling. This was noticed by the nurse at the [facility]. He reports that he had some scrotal swelling that started prior to hospital discharge. However, this was not concerning to him as he felt that it would probably resolve after discharge. Yesterday and today, he reports that he had trouble finding the tip of his penis due to the scrotal swelling. He denies any weakness or heaviness in his legs. He does not recall having major issues with lower extremity swelling in the past. He does note that today at lunch, he became extremely t hirsty and drank nearly 2 L of fluids that included water, orange juice, coffee and felicia kari. He denies any increase in salt intake. Denies chest pain, dyspnea. Admission Exam Per Admitting Provider Constitutional: well developed, average body habitus, + frail appearing, comfortable and + edematous; not in distress, not diaphoretic and not malnourished Eyes: EOM intact bilaterally and reactive pupils; no conjunctival abnormality and no scleral abnormality ENMT: external ear and nose normal, oropharynx normal Neck: trachea midline, no thyromegaly Respiratory: normal respiratory effort, + retractions and able to speak in complete sentences; no respiratory distress, no labored breathing, does not use accessory muscles, no cough, not tachypneic and expiratory phase not prolonged Auscultation: + crackles (Bilateral bases); no rhonchi and no wheezes Cardiovascular: Rate/Rhythm: regular rate and + irregularly irregular Heart Sounds: normal S1 and normal S2 Extremities: + edema (+2 edema to the hip bilaterally) Gastrointestinal (Abdomen): normal bowel sounds, soft, nontender, no hepatosplenomegaly Inspection/Auscultation: no abdominal edema Musculoskeletal: no cyanosis or clubbing, extremities motor strength 5/5 Skin: no rashes, warm and dry Neurologic: moves all extremities and awake Speech / Cognition: normal speech Motor/Sensory: no tremor Psychiatric: A+Ox3, euthymic affect Genitourinary: Scrotal edema Principal Diagnosis Edema Discharge Exam Constitutional: well-appearing, no acute distress HEENT: NCAT, no conjunctival injection CV: irregularly irregular rhythm, no murmur appreciated, extremities well- perfused, 1+ pitting edema of BL LE Resp: CTABL, no wheezes/rales/rhonchi appreciated, no increased work of breathing Skin: warm, dry, no rash appreciated, no scrotal edema Neuro: AOx4, no focal neurological deficits appreciated Discharge Data Allergies Allergy/AdvReac Type Severity Reaction Status Date / Time Iodinated Contrast Media Allergy Severe ANAPHYLAXIS Verified 12/13/20 19:39 Sulfa (Sulfonamide Allergy Unknown UNKNOWN Verified 12/13/20 19:39 Antibiotics) Consultations 12/13/20 18:56 ED Decision to Admit Stat Hospital Course (1) Lower extremity edema: Edema Patient's acute-onset scrotal and BL LE edema was suspected to be primarily secondary to ingesting 2L of water in a short period of time in the setting of possible protein malnutrition and known HFpEF. Patient was treated with a bolus of IV albumin as well as a small dose of IV bumex, as well as JOSE stockings. Patient diuresed slightly over 1L, scrotal edema resolved, and BL LE edema greatly improved. Patient was discharged on hospital day two in stable condition. Patient was hemodynamically stable for the entirety of his hospitalization. Close PCP follow-up was recommended in addition to recommending fluid restriction to 1.8L per day. Diastolic heart failure Patient was noted to have an echo from 09/2020 noting preserved EF 60 to 65%, mild concentric left ventricular hypertrophy, and a flattened septum consistent with right sided overload. Patient's heart failure was managed as above. Hypotension Patient was slightly hypotensive on admission. Patient's home metoprolol was held. On day of discharge, patient's BP was normalized, and his metoprolol was restarted upon discharge. Anemia Patient was noted with an Hgb of 8.2, a slight decrease from last known value which was 8.8 about one week prior. FOBT was positive, but on hospital day two, patient's Hgb elgin, and so active GI bleed was felt to be unlikely. Close PCP follow-up was recommended. Atrial fibrillation Patient was rate controlled on admission. Metoprolol was held as above. Patient was noted to have had his eliquis discontinued on previous admission in the setting of multiple falls and anemia secondary to bleed. Close PCP follow-up was recommended. COPD Patient was noted to be without labored breathing on admission. Patient's home advair was transitioned to breo ellipta on admission per hospital formulary, and was restarted upon discharge. Hyperthyroid Patient's home methimazole was continued during his hospitalization. Prior CVA Patient was noted to be without neurologic deficits on admission. Patient's home ASA was held on admission, and home atorvastatin was continued. Both were restarted upon discharge. GERD Patient's home protonix was continued during his hospitalization. (2) Anemia: (3) Atrial fibrillation, permanent: (4) Diastolic CHF: (5) Hyperlipidemia: (6) History of CVA (cerebrovascular accident): (7) Chronic kidney disease, stage 3a: (8) Hyperthyroidism: (9) GERD (gastroesophageal reflux disease): (10) Chronic obstructive pulmonary disease: Total Time Total Time Spent Total Time Spent (In Minutes): see attending documentation Discharge Plan Discharge Items Patient Disposition: [facility] Reason For Visit: EDEMA Discharge Diagnosis: Edema Activity: Resume your previous activity Non-emergency contact: Primary Care Provider Call non-emergency contact if: your symptoms worsen Follow-up/Referrals: Hakan Willingham [Primary Care Provider] - Diet: Other - See Diet Comment Addtl Attending Provider Instructions: You were admitted for swelling of your scrotum and lower extremities, thought to be due to drinking too much fluid. You were treated with diuretics to help remove extra fluid from your body. Medications: Your medication list has been reviewed and reconciled upon discharge to ensure accuracy and continuity of care. An updated list of all your medications is included with your hospital discharge paperwork. Please review this list closely. Take your medications as instructed. Do not skip a dose of your medicines. Make sure all of your doctors know all of the medicines you are taking (including [id number] medicines, vitamins, and supplements). Call your primary care provider before taking any new medicines (including [id number] medicines, vitamins, and supplements), because some of these may interact with your current medications, or may make your symptoms worse. Tell your primary care provider if you cannot afford your medications. Activity: You can do normal everyday activities as your body allows. Take rest breaks if you feel tired. Do not over exert. Stop activity if you have pain, shortness of breath or feel dizzy. Weight: It is important for you to monitor your daily weights. Weigh yourself every morning using the same scale. Wear the same amount of clothing each time, without anything in your pockets. Keep a log of your daily weights, and bring this log with you every time you see your primary care physician, or any other doctor. Call your primary care physician if you gain more than 2-3 pounds in 1-2 days. Diet: Follow a low sodium (salt) diet. We recommend limiting your sodium intake to under 2000mg per day. Choose foods and drinks with low or no salt. Remove the salt shaker from your table at home. We also recommend limiting your daily fluid intake to 1800mL (60oz) in order to help your body balance fluids. Do not drink excessive beer, alcohol, or wine. If you are struggling with these restrictions, or need additional help incorporating healthy habits into your daily life, please contact your primary care provider. Follow-up appointments: Make an appointment with your primary care physician within one week of discharge. A copy of this summary will be sent to them. Every time you see your primary care physician, or any other doctor, bring your medication list, a list of questions, and your recent weights. CONTACT YOUR PRIMARY CARE PROVIDER if you experience any of the following: Shortness of breath or have more difficulty breathing Swelling of your feet, ankles, hands or abdomen Feeling tired with normal activity or experiencing dizziness or fainting Difficulty following your treatment plan, or difficulty taking medications CALL 911 OR GO TO THE EMERGENCY DEPARTMENT if you experience any of the following: Severe abdominal pain Severe nausea/vomiting Severe chest pain, or chest pain that radiates (moves) to your jaw or arm Sudden, severe shortness of breath or difficulty breathing Thank you for allowing us to participate in your care. Pending Studies at Discharge: No Stand-Alone Forms: [facility] Skilled Items Patient informed of condition?: Yes DNR: No Discharge Level of Care: Other Communicable Disease: No Discharge Prognosis: Stable Lines: None Urinary Catheter: No Medications and DC Order Prescriptions: Continued multivitamin Tablet 1 tab PO DAILY RF: 0 methimazole 5 mg tablet 5 mg PO DAILY RF: 0 cholecalciferol (vitamin D3) [Vitamin D3] 125 mcg (5,000 unit) Tablet 125 mcg PO WK RF: 0 aspirin 81 mg Tablet,Delayed Release (Dr/Ec) 81 mg PO DAILY Qty: 30 RF: 0 pantoprazole 40 mg Tablet,Delayed Release (Dr/Ec) 40 mg PO BID Qty: 60 RF: 0 atorvastatin 40 mg tablet 40 mg PO HS 30 Days Qty: 30 RF: 0 potassium chloride 10 mEq capsule, extended release 10 meq PO QPM 30 Days Qty: 30 RF: 0 ferrous sulfate 325 mg (65 mg iron) Tablet 325 mg PO BID 30 Days Qty: 60 RF: 0 docusate sodium [Colace] 100 mg Capsule 100 mg PO BID 30 Days Qty: 60 RF: 0 bumetanide 1 mg tablet 1 mg PO QAM 30 Days Qty: 30 RF: 0 metoprolol succinate 25 mg tablet extended release 24 hr 25 mg PO DAILY Qty: 25 RF: 0 calcium citrate 200 mg (950 mg) Tablet 200 mg PO BID 30 Days Qty: 60 RF: 0 Discharge Orders: Discharge Order (Routine); Ordered 12/14/20 Ordered By: Aguilar Hooker Admission Data Admit Date/Time: 12/13/20 18:57 Attending Provider: Kayden Gibbs Admit Provider: Kayden Gibbs Primary Care Provider: Hakan Willingham Other Providers: Tex Knapp Other Interventions: Discharge Summary Assessment (RN) Last Done: 12/14/20 14:42 Resident Activity Tracking Resident Involvement: Resident Care Provided Care Provided: Adult Hospital Medicine
== END 2020-12-14 15:40 | disposition home or self-care (01) ==
LOC: 2N 16:14 → ED 16:14 → 2N 21:16

== ENCOUNTER 2020-12-26 16:27 | Observation (INO) ==
--- NOTE | 2020-12-26 20:57 | Emergency Department Note ---
Impression & Plan CHF (congestive heart failure), Anemia, Cardiac volume overload, Hypokalemia ED Provider Note NAME: SAUD ALDRICH AGE: 89 SEX: M : 1930 ARRIVES VIA: Ambulance INFORMANT: Patient, ED PROVIDER(S): Aguilar Bey MD Chief Complaint: Referral from the [facility] for lower extremity swelling HPI: Patient does present due to concern for lower extremity swelling which has been ongoing more recently over the last 3 to 4 days. The patient states that he has had weight gain of approximately 15 to 20 pounds in approximately 2-week period. The patient did have a recent admission here due to concern for a "blood problem." Patient was subsequently discharged and does reside at the [facility]. The patient states he has been compliant with his medications. The patient did have a recent change in increased his at home diuretic beginning yesterday. Patient states his urine output has been appropriate. Patient denie s any current chest pains or shortness of breath. Patient denies any increase in salt in the diet. Patient denies any fevers or chills. Patient denies any abdominal pain nausea or vomiting. ROS: See HPI for pertinent positives and negatives. A total of 10 systems were reviewed and otherwise negative. Past medical history: See below Surgical history: See below Social history: See below Physical Exam: GENERAL: Wearing a mask. NAD, non-toxic. EYE EXAM: Normal conjunctiva. PERRL, no anisocoria and EOM's grossly intact w/o pain. NECK: Supple, no nuchal rigidity, no adenopathy, non-tender. No signs of meningismus. LUNGS: Clear to auscultation. Normal chest wall mechanics. HEART: NSR, no MRG. ABDOMEN: Abdomen soft, non-tender, normo-active bowel sounds, no masses, no rebound or guarding. BACK: No CVA TTP. SKIN: No rashes and no bruising. UPPER EXTREMITIES: Upper extremities are grossly normal. LOWER EXTREMITIES: Grossly normal, 4+ bilateral lower extremity edema with clear drainage noted. NEURO EXAM: A&O x3, cranial nerves II-XII grossly intact, normal speech, moves all 4 extremities on command w/o issue. Differential diagnoses: Reactive airway disease, pneumonia, pneumothorax, COPD, CHF, infections, cardiac ischemia, pulmonary embolism, musculoskeletal, gastrointestinal, as well as other pathologies. Course: Patient was seen and evaluated the bedside. Full history physical exam was performed. EKG Right bundle branch block, rate of 95, wide QRS, normal axis. PVC noted. Imaging Studies: 1 view chest x-ray Cardiomegaly noted with possible pleural effusion left chest. No obvious pneumothorax. Cardiac monitoring: An order was placed for continuous cardiac monitoring. The monitor shows a rate of 88 with regular rhythm. MDM: Patient does present concern for lower extremity swelling. The patient did a bladder complete along with an EKG troponin chest x-ray. The patient does have an elevated BNP and may have a pleural effusion on the left chest. Given the patient does have significant lower extremity edema with associated weight gain over 2-week. Believe the patient would benefit from IV diuresis. Patient does have hypokalemia so potassium and magnesium ordered given slight hypomagnesium as well. Patient was ordered Bumex 1 mg IV. I did speak with the on-call hospitalist Dr. Alexis and the patient was admitted to the medicine service. Past Med/Surg History Medical History 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 Cancer lYMPHOMA Cholelithiasis Chronic obstructive pulmonary disease Congestive heart failure Depression GERD (gastroesophageal reflux disease) HTN (hypertension) Hypertension Hyperthyroidism Kidney stone Lymphoma Palliative care encounter Respiratory failure requiring intubation Severe protein-calorie malnutrition Status post placement of implantable loop recorder Stroke Weakness Surgical History History of cardiac cath Family History Unknown Myocardial infarction Social History Smoking Status: Never smoker Second Hand Exposure: No; Hx Alcohol Use: No Hx Substance Use: No Preferred Language: Latvian Communication Ability: Effective Visual Impairment: Partially Limited Dermatologist Required: No Beliefs That Will Affect Care: None marital status: / Current Living Situation: Rehab Current Living Situation Comment: caregiver 24 hour How many Children do You have: 6 Feels Safe at Home: Yes Assistive Devices: Walker Allergies Allergies Allergy/AdvReac Type Severity Reaction Status Date / Time Iodinated Contrast Media Allergy Severe ANAPHYLAXIS Verified 12/26/20 22:22 Sulfa (Sulfonamide Allergy Unknown UNKNOWN Verified 12/26/20 22:22 Antibiotics) Home Meds Home Medications Medication Instructions Recorded Confirmed cholecalciferol (vitamin D3) 125 mcg PO WK 11/22/20 12/26/20 [Vitamin D3] methimazole 5 mg PO DAILY 11/22/20 12/26/20 bumetanide 1 mg PO QPM 12/26/20 12/26/20 bumetanide 2 mg PO QAM 12/26/20 12/26/20 ciprofloxacin HCl 500 mg PO BID 12/26/20 12/26/20 food supplemt, lactose-reduced 1 ea PO DAILY 12/26/20 12/26/20 [Ensure High Protein] melatonin 10 mg PO HS PRN 12/26/20 12/26/20 multivitamin [Daily-Nico] 1 tab PO DAILY 12/26/20 12/26/20 Previous Rx's Medication Instructions Recorded aspirin 81 mg PO DAILY #30 tab 12/12/20 atorvastatin 40 mg PO HS 30 Days #30 tab 12/12/20 calcium citrate 200 mg PO BID 30 Days #60 tab 12/12/20 docusate sodium [Colace] 100 mg PO BID 30 Days #60 cap 12/12/20 ferrous sulfate 325 mg PO BID 30 Days #60 tab 12/12/20 metoprolol succinate 25 mg PO DAILY #25 tab 12/12/20 pantoprazole 40 mg PO BID #60 tab 12/12/20 potassium chloride 10 meq PO QPM 30 Days #30 cap 12/12/20 Results & Data (ED) Vital Signs Vital Signs - 24 hr 12/26/20 16:49 12/26/20 21:00 12/26/20 21:30 Temperature 36.4 C L Temperature Source Temporal Artery Scan Pulse Rate 90 96 H 94 H Pulse Rate [Apical] Pulse Rhythm [Apical] Respiratory Rate 20 19 19 Respiratory Effort / Characteristics Respiratory Depth Respiratory Pattern Blood Pressure 100/64 115/79 114/80 Blood Pressure [Right Arm] Blood Pressure Mean 76 91 91 Blood Pressure Mean [Right Arm] Blood Pressure Position [Right Arm] Pulse Oximetry 93 98 97 Oxygen Delivery Method Room Air Room Air Room Air Sepsis Recent Fever Within 48 Hours No Sepsis New/Unexplained Change in Mental Status N/A Sepsis Action Taken by Nursing No Action Required 12/26/20 21:34 12/26/20 22:00 Temperature Temperature Source Pulse Rate Pulse Rate [Apical] 96 H Pulse Rhythm [Apical] Regular Respiratory Rate 22 Respiratory Effort / Characteristics Non-Labored Spontaneous Respiratory Depth Normal Respiratory Pattern Regular Blood Pressure Blood Pressure [Right Arm] 117/71 Blood Pressure Mean Blood Pressure Mean [Right Arm] 86 Blood Pressure Position [Right Arm] Lying Pulse Oximetry 92 94 Oxygen Delivery Method Room Air Room Air Sepsis Recent Fever Within 48 Hours Sepsis New/Unexplained Change in Mental Status Sepsis Action Taken by Retirement Medications Current Medication List: was personally reviewed by me Laboratory Data Attestation: I reviewed the patient's lab results. Result diagrams: 12/26/20 21:38 12/26/20 21:38 Lab Results 12/26/20 12/26/20 12/26/20 Range/Units 21:38 21:38 21:40 WBC 7.72 (4.8-10.8) K/uL RBC 3.59 L (4.7-6.1) M/uL Hgb 8.9 L (14.0-18.0) g/dL Hct 29.3 L (42-52) % MCV 81.6 (80-100) fL MCH 24.8 L (25-34) pg MCHC 30.4 L (32-36) g/dL RDW Std Deviation 52.7 H (36.4-46.3) fL RDW Coeff of Jennifer 17.6 H (11.5-14.5) % Plt Count 324 (130-400) K/uL MPV 8.9 (7.4-10.4) fL Immature Gran % (Auto) 0.4 % Neut % (Auto) 69.7 % Lymph % (Auto) 13.1 % Geary % (Auto) 12.7 % Eos % (Auto) 3.8 % Baso % (Auto) 0.3 % Neut # (Auto) 5.39 (1.4-6.5) K/uL Lymph # (Auto) 1.01 L (1.2-3.4) K/uL Geary # (Auto) 0.98 H (0.11-0.59) K/uL Eos # (Auto) 0.29 (0-0.5) K/uL Baso # (Auto) 0.02 (0-0.2) K/uL Immature Gran # (Auto) 0.03 H (0.00-0.02) K/uL Sodium 140 (136-145) mmol/L Potassium 3.3 L (3.5-5.1) mmol/L Chloride 106 (98-107) mmol/L Carbon Dioxide 30 (21-32) mmol/L Anion Gap 4.0 (3-11) BUN 17 (7-18) mg/dl Creatinine 1.00 (0.6-1.4) mg/dl Est Cr Clr Drug Dosing Not Reportable Est GFR ( Amer) 77.5 ml/min Est GFR (Non-Af Amer) 66.9 ml/min BUN/Creatinine Ratio 17.2 (10-20) Glucose 89 (70-99) mg/dl Calcium 7.3 L (8.5-10.1) mg/dl Magnesium 1.7 L (1.8-2.4) mg/dl Total Bilirubin 0.4 (0.2-1) mg/dl AST 26 (15-37) U/L ALT 18 (12-78) U/L Alkaline Phosphatase 157 H (45-117) U/L Troponin I 0.030 (0-0.045) ng/ml NT-Pro-B Natriuret Pep 5383 H (0-1800) pg/ml Total Protein 5.9 L (6.4-8.2) gm/dl Albumin 2.1 L (3.4-5.0) gm/dl Globulin 3.7 (2.5-4.0) gm/dl Albumin/Globulin Ratio 0.6 L (0.9-2) COVID-19 Eval Order Covid19 at [facility] SARS-CoV-2 (PCR) (Negative) 12/26/20 Range/Units 21:40 WBC (4.8-10.8) K/uL RBC (4.7-6.1) M/uL Hgb (14.0-18.0) g/dL Hct (42-52) % MCV (80-100) fL MCH (25-34) pg MCHC (32-36) g/dL RDW Std Deviation (36.4-46.3) fL RDW Coeff of Jennifer (11.5-14.5) % Plt Count (130-400) K/uL MPV (7.4-10.4) fL Immature Gran % (Auto) % Neut % (Auto) % Lymph % (Auto) % Geary % (Auto) % Eos % (Auto) % Baso % (Auto) % Neut # (Auto) (1.4-6.5) K/uL Lymph # (Auto) (1.2-3.4) K/uL Geary # (Auto) (0.11-0.59) K/uL Eos # (Auto) (0-0.5) K/uL Baso # (Auto) (0-0.2) K/uL Immature Gran # (Auto) (0.00-0.02) K/uL Sodium (136-145) mmol/L Potassium (3.5-5.1) mmol/L Chloride (98-107) mmol/L Carbon Dioxide (21-32) mmol/L Anion Gap (3-11) BUN (7-18) mg/dl Creatinine (0.6-1.4) mg/dl Est Cr Clr Drug Dosing Est GFR ( Amer) ml/min Est GFR (Non-Af Amer) ml/min BUN/Creatinine Ratio (10-20) Glucose (70-99) mg/dl Calcium (8.5-10.1) mg/dl Magnesium (1.8-2.4) mg/dl Total Bilirubin (0.2-1) mg/dl AST (15-37) U/L ALT (12-78) U/L Alkaline Phosphatase (45-117) U/L Troponin I (0-0.045) ng/ml NT-Pro-B Natriuret Pep (0-1800) pg/ml Total Protein (6.4-8.2) gm/dl Albumin (3.4-5.0) gm/dl Globulin (2.5-4.0) gm/dl Albumin/Globulin Ratio (0.9-2) COVID-19 Eval Order SARS-CoV-2 (PCR) NEGATIVE (Negative) Administered Medications Magnesium Sulfate/Dextrose (Magnesium Sulfate / D5w) 1 gm in 100 mls @ 50 mls/hr IV ONE ONE Stop: 12/27/20 00:30 Last Admin: 12/26/20 22:39 Dose: 50 mls/hr Documented by: [id number] Discontinued Medications Bumetanide 1 mg/ Syringe 4 mls @ 4 mls/min IV ONE ONE Stop: 12/26/20 22:29 Last Admin: 12/26/20 22:47 Dose: 4 mls/min Documented by: [id number] Potassium Chloride (Potassium Chloride Crtab 20 Meq Tabcr) 40 meq PO NOW STA Stop: 12/26/20 22:29 Last Admin: 12/26/20 22:39 Dose: 40 meq Documented by: [id number] Discharge Plan Visit Data Chief Complaint: Edema To Extremity Stated Complaint: REFERRED BY DOCTOR FOR FLUID RETENTION ED Provider: Aguilar Bey Discharge Problem: CHF (congestive heart failure), Anemia, Cardiac volume overload, Hypokalemia Forms Stand Alone Forms: [facility] [place] [employer] Prescriptions Prescriptions: No Action methimazole 5 mg tablet 5 mg PO DAILY RF: 0 cholecalciferol (vitamin D3) [Vitamin D3] 125 mcg (5,000 unit) Tablet 125 mcg PO WK RF: 0 aspirin 81 mg Tablet,Delayed Release (Dr/Ec) 81 mg PO DAILY Qty: 30 RF: 0 pantoprazole 40 mg Tablet,Delayed Release (Dr/Ec) 40 mg PO BID Qty: 60 RF: 0 atorvastatin 40 mg tablet 40 mg PO HS 30 Days Qty: 30 RF: 0 potassium chloride 10 mEq capsule, extended release 10 meq PO QPM 30 Days Qty: 30 RF: 0 ferrous sulfate 325 mg (65 mg iron) Tablet 325 mg PO BID 30 Days Qty: 60 RF: 0 docusate sodium [Colace] 100 mg Capsule 100 mg PO BID 30 Days Qty: 60 RF: 0 metoprolol succinate 25 mg tablet extended release 24 hr 25 mg PO DAILY Qty: 25 RF: 0 calcium citrate 200 mg (950 mg) Tablet 200 mg PO BID 30 Days Qty: 60 RF: 0 multivitamin [Daily-Nico] Tablet 1 tab PO DAILY RF: 0 bumetanide 2 mg tablet 2 mg PO QAM RF: 0 melatonin 10 mg Tablet 10 mg PO HS PRN (Reason: Sleep) RF: 0 bumetanide 1 mg tablet 1 mg PO QPM RF: 0 ciprofloxacin HCl 500 mg tablet 500 mg PO BID RF: 0 Ensure High Protein Liquid 1 ea PO DAILY RF: 0 Referrals Referrals: Hakan Willingham [Primary Care Provider] - Discharge Problem: CHF (congestive heart failure) Qualifiers: Heart failure type: unspecified Heart failure chronicity: acute on chronic Qualified Code(s): I50.9 - Heart failure, unspecified Anemia Qualifiers: Anemia type: unspecified type Qualified Code(s): D64.9 - Anemia, unspecified
[2020-12-26 21:47] LABS: Basophils # (auto) 0.02 K/uL (0-0.2); Basophils % (auto) 0.3 %; Eosinophils # (auto) 0.29 K/uL (0-0.5); Eosinophils % (auto) 3.8 %; Hematocrit (blood only) 29.3 % (42-52); Hemoglobin 8.9 g/dL (14.0-18.0); Immature Granulocytes # (auto) 0.03 K/uL (0.00-0.02); Immature Granulocytes % (auto) 0.4 %; Lymphocytes # (auto) 1.01 K/uL (1.2-3.4); Lymphocytes % (auto) 13.1 %; Mean Corpuscular Hemoglobin 24.8 pg (25-34); Mean Corpuscular Hgb Conc 30.4 g/dL (32-36); Mean Corpuscular Volume 81.6 fL (80-100); Mean Platelet Volume 8.9 fL (7.4-10.4); Monocytes # (auto) 0.98 K/uL (0.11-0.59); Monocytes % (auto) 12.7 %; Neutrophils # (auto) 5.39 K/uL (1.4-6.5); Neutrophils % (auto) 69.7 %; Platelet Count 324 K/uL (130-400); RDW Coefficient of Variation 17.6 % (11.5-14.5); RDW Standard Deviation 52.7 fL (36.4-46.3); Red Blood Count 3.59 M/uL (4.7-6.1); White Blood Count 7.72 K/uL (4.8-10.8)
[2020-12-26 22:03] LABS: Alanine Aminotransferase 18 U/L (12-78); Albumin Level 2.1 gm/dl (3.4-5.0); Aspartate Aminotransferase 26 U/L (15-37); BUN Creatinine Ratio 17.2 (10-20); Blood Urea Nitrogen 17 mg/dl (7-18); Calcium 7.3 mg/dl (8.5-10.1); Carbon Dioxide 30 mmol/L (21-32); Chloride 106 mmol/L (98-107); Est GFR (African American) 77.5 ml/min; Est GFR (Non-African American) 66.9 ml/min; Glucose 89 mg/dl (70-99); Magnesium 1.7 mg/dl (1.8-2.4); Potassium 3.3 mmol/L (3.5-5.1); Sodium 140 mmol/L (136-145)
[2020-12-26 22:08] LABS: Albumin Globulin Ratio 0.6 (0.9-2); Alkaline Phosphatase 157 U/L (45-117); Bilirubin,Total 0.4 mg/dl (0.2-1); Globulin 3.7 gm/dl (2.5-4.0); NT Pro B Type Natriuretic Pept 5383 pg/ml (0-1800); Total Protein 5.9 gm/dl (6.4-8.2)
[2020-12-26] MEDS ORDERED: POTASSIUM CHLORIDE CRTAB 20 MEQ TABCR PO STA (22:28)
[2020-12-26] MEDS ORDERED: BUMETANIDE 1 MG in SYRINGE 0 ML IV ONE (22:28)
[2020-12-26] MEDS ORDERED: POTASSIUM CHLORIDE / WTR 10 MEQ/100 ML PLCT IV ONE (22:28)
[2020-12-26] MEDS ORDERED: MAGNESIUM SULFATE / D5W 1 GM/100 ML BAG IV ONE (22:31)
[2020-12-26] MEDS ORDERED: CALCIUM GLUCONATE 1,000 MG/60 ML BAG IV STA (23:41)
[2020-12-27] MEDS ORDERED: ALBUMIN 25% 12.5 GM/50 ML VIAL IV STA (00:04)
[2020-12-27] MEDS ORDERED: PIPERACILL/TAZOBAC CONSULT ACTIVE PRN ×2 (00:04→02:50)
--- NOTE | 2020-12-27 00:08 | History & Physical Report ---
Date of Service December 27, 2020 The patient was seen and examined on 12/26/20 Assessment & Plan (1) Cellulitis of both lower extremities: Cellulitis and edema of both lower extremities- Give bumetanide 2 mg IV x1 in the ED tonight. Resume bumetanide orally in a.m., but increase dosing from 2 mg in the morning and 1 mg in the evening to 2 mg p.o. twice daily Zosyn 4.5 g IV every 8 hours Wound care consult Present on Admission?: Yes (2) Bilateral edema of lower extremity: See above Present on Admission?: Yes (3) Atrial fibrillation, permanent: Permanent atrial fibrillation/HFpEF- Continue aspirin 81 mg daily. Adjusting bumetanide 2 mg p.o. twice daily as noted above Continue metoprolol succinate 25 mg daily Increase potassium chloride 10 mEq daily to 20 mEq daily Present on Admission?: Yes (4) (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: See above Present on Admission?: Yes (5) Hyperlipidemia: Continue atorvastatin 40 mg in the evening Present on Admission?: Yes (6) Hyperthyroidism: Continue methimazole Present on Admission?: Yes (7) GERD (gastroesophageal reflux disease): Continue pantoprazole 40 mg p.o. twice daily Present on Admission?: Yes (8) Generalized weakness: Multifactorial When lower extremities improved, will need PT OT consult Present on Admission?: Yes History of Present Illness Chief Complaint: The patient is referred to the emergency department from his residence at [facility] due to lower extremity swelling worsening over the past 3 to 4 days, and weight gain of 15 to 20 pounds per patient, over the past 2 weeks Primary Care Provider: Hakan Willingham The patient is an 89-year-old male with a past medical history including hypertension, HFpEF, volume overload, postoperative ileus, severe protein calorie malnutrition, generalized weakness, cecal mass, acute blood loss anemia, hypotension due to blood loss, acute kidney injury, multiple rib fractures, history of CVA with right-sided weakness, permanent atrial fibrillation, hyperlipidemia, pulmonary hypertension, CKD stage III A, cardiomyopathy, abdominal aortic aneurysm greater than 5.5 cm in diameter in a male, CVA, hypertension, GERD, COPD and depression. Patient presents with 15 to 20 pound weight gain over the past 2 weeks, and worsening lower extremity edema and redness over the past 3 to 4 days. Patient presented to the ED with his left lower extremity wrapped due to oozing. Allergies Allergy/AdvReac Type Severity Reaction Status Date / Time Iodinated Contrast Media Allergy Severe ANAPHYLAXIS Verified 12/26/20 22:22 Sulfa (Sulfonamide Allergy Unknown UNKNOWN Verified 12/26/20 22:22 Antibiotics) Home Medications Medication Instructions Recorded Confirmed Type cholecalciferol (vitamin D3) 125 mcg PO WK 11/22/20 12/26/20 History [Vitamin D3] methimazole 5 mg PO DAILY 11/22/20 12/26/20 History aspirin 81 mg PO DAILY #30 tab 12/12/20 12/26/20 Rx atorvastatin 40 mg PO HS 30 Days #30 tab 12/12/20 12/26/20 Rx calcium citrate 200 mg PO BID 30 Days #60 tab 12/12/20 12/26/20 Rx docusate sodium [Colace] 100 mg PO BID 30 Days #60 cap 12/12/20 12/26/20 Rx ferrous sulfate 325 mg PO BID 30 Days #60 tab 12/12/20 12/26/20 Rx metoprolol succinate 25 mg PO DAILY #25 tab 12/12/20 12/26/20 Rx pantoprazole 40 mg PO BID #60 tab 12/12/20 12/26/20 Rx potassium chloride 10 meq PO QPM 30 Days #30 cap 12/12/20 12/26/20 Rx bumetanide 1 mg PO QPM 12/26/20 12/26/20 History bumetanide 2 mg PO QAM 12/26/20 12/26/20 History ciprofloxacin HCl 500 mg PO BID 12/26/20 12/26/20 History food supplemt, lactose-reduced 1 ea PO DAILY 12/26/20 12/26/20 History [Ensure High Protein] melatonin 10 mg PO HS PRN 12/26/20 12/26/20 History multivitamin [Daily-Nico] 1 tab PO DAILY 12/26/20 12/26/20 History Past Med/Surg History Medical History 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 Cancer lYMPHOMA Cholelithiasis Chronic obstructive pulmonary disease Congestive heart failure Depression GERD (gastroesophageal reflux disease) HTN (hypertension) Hypertension Hyperthyroidism Kidney stone Lymphoma Palliative care encounter Respiratory failure requiring intubation Severe protein-calorie malnutrition Status post placement of implantable loop recorder Stroke Weakness Surgical History History of cardiac cath Family History Unknown Myocardial infarction Social History Smoking Status: Former smoker Second Hand Exposure: No; Do You Dip or Chew Tobacco: No; Hx Alcohol Use: No Hx Substance Use: No Preferred Language: Urdu Communication Ability: Effective Visual Impairment: Partially Limited Surveying Or Spatial Science Technician Required: No Beliefs That Will Affect Care: None marital status: / Current Living Situation: Personal Care Facility Current Living Situation Comment: caregiver 24 hour How many Children do You have: 6 Other Information That Helps Us Care for You: No Feels Safe at Home: Yes Safety Concerns: Feels Safe At This Time Assistive Devices: Denture - Upper, Denture - Lower, Oxygen - at Night and Wheelchair Assistive Devices Comment: 2L o2 PRN Review of Systems Review of Systems: The patient denies chest pain, palpitations, cough, sore throat, fevers, chills, sweats, nausea, vomiting, diarrhea , constipation, abdominal pain, pelvic pain, blood in urine or stool, dysuria, urinary frequency or urgency, lightheadedness, dizziness, headache, loss of consciousness, focal weakness, numbness or tingling in arms or legs, generalized arthralgias or myalgias, back or neck pain, or night sweats. The review of systems is otherwise negative other than for that already noted above, and at least 10 systems have been reviewed. Physical Exam Physical Exam: The patient is awake, alert, normocephalic and atraumatic, lying in bed and in no acute distress. HEENT--PERRL, EOMI, mucous membranes and oropharynx normal. Neck--supple. No JVD. No bruits. Thyroid normal, trachea midline, no adenopathy. Heart--normal S1 and S2. No murmurs, rubs or gallops. Lungs--clear bilaterally, no respiratory distress, no accessory muscle use. Abdomen--normal bowel sounds and soft. Nontender. Nondistended. Extremities--2+ bilateral pretibial and pedal pitting edema. Moderate erythema bilaterally. Oozing of clear fluid left lower extremity. Dermatologic--see above Neurologic--cranial nerves II through XII grossly intact. Rheumatologic--normal range of motion, limited by condition of lower extremities Psychiatric--normal affect. Results & Data Results & Data ([facility]) Vital Signs (Past 12 Hours) Vital Signs Temp Pulse Pulse Resp BP BP Pulse Ox 12/26/20 23:52 93 H 20 103/70 94 12/26/20 22:00 96 H 22 117/71 94 12/26/20 21:34 92 12/26/20 21:30 94 H 19 114/80 97 12/26/20 21:00 96 H 19 115/79 98 12/26/20 16:49 97.5 F L 90 20 100/64 93 Laboratory Results Laboratory Results WBC 7.72 K/uL (4.8-10.8) 12/26/20 21:38 RBC 3.59 M/uL (4.7-6.1) L 12/26/20 21:38 Hgb 8.9 g/dL (14.0-18.0) L 12/26/20 21:38 Hct 29.3 % (42-52) L 12/26/20 21:38 MCV 81.6 fL (80-100) 12/26/20 21:38 MCH 24.8 pg (25-34) L 12/26/20 21:38 MCHC 30.4 g/dL (32-36) L 12/26/20 21:38 RDW Std Deviation 52.7 fL (36.4-46.3) H 12/26/20 21:38 RDW Coeff of Jennifer 17.6 % (11.5-14.5) H 12/26/20 21:38 Plt Count 324 K/uL (130-400) 12/26/20 21:38 MPV 8.9 fL (7.4-10.4) 12/26/20 21:38 Immature Gran % (Auto) 0.4 % 12/26/20 21:38 Neut % (Auto) 69.7 % 12/26/20 21:38 Lymph % (Auto) 13.1 % 12/26/20 21:38 [place] % (Auto) 12.7 % 12/26/20 21:38 Eos % (Auto) 3.8 % 12/26/20 21:38 Baso % (Auto) 0.3 % 12/26/20 21:38 Neut # (Auto) 5.39 K/uL (1.4-6.5) 12/26/20 21:38 Lymph # (Auto) 1.01 K/uL (1.2-3.4) L 12/26/20 21:38 [place] # (Auto) 0.98 K/uL (0.11-0.59) H 12/26/20 21:38 Eos # (Auto) 0.29 K/uL (0-0.5) 12/26/20 21:38 Baso # (Auto) 0.02 K/uL (0-0.2) 12/26/20 21:38 Immature Gran # (Auto) 0.03 K/uL (0.00-0.02) H 12/26/20 21:38 Sodium 140 mmol/L (136-145) 12/26/20 21:38 Potassium 3.3 mmol/L (3.5-5.1) L 12/26/20 21:38 Chloride 106 mmol/L (98-107) 12/26/20 21:38 Carbon Dioxide 30 mmol/L (21-32) 12/26/20 21:38 Anion Gap 4.0 (3-11) 12/26/20 21:38 BUN 17 mg/dl (7-18) 12/26/20 21:38 Creatinine 1.00 mg/dl (0.6-1.4) 12/26/20 21:38 Est Cr Clr Drug Dosing Not Reportable 12/26/20 21:38 Est GFR ( Amer) 77.5 ml/min 12/26/20 21:38 Est GFR (Non-Af Amer) 66.9 ml/min 12/26/20 21:38 BUN/Creatinine Ratio 17.2 (10-20) 12/26/20 21:38 Glucose 89 mg/dl (70-99) 12/26/20 21:38 Calcium 7.3 mg/dl (8.5-10.1) L 12/26/20 21:38 Magnesium 1.7 mg/dl (1.8-2.4) L 12/26/20 21:38 Total Bilirubin 0.4 mg/dl (0.2-1) 12/26/20 21:38 AST 26 U/L (15-37) 12/26/20 21:38 ALT 18 U/L (12-78) 12/26/20 21:38 Alkaline Phosphatase 157 U/L (45-117) H 12/26/20 21:38 Troponin I 0.030 ng/ml (0-0.045) 12/26/20 21:38 NT-Pro-B Natriuret Pep 5383 pg/ml (0-1800) H 12/26/20 21:38 Total Protein 5.9 gm/dl (6.4-8.2) L 12/26/20 21:38 Albumin 2.1 gm/dl (3.4-5.0) L 12/26/20 21:38 Globulin 3.7 gm/dl (2.5-4.0) 12/26/20 21:38 Albumin/Globulin Ratio 0.6 (0.9-2) L 12/26/20 21:38 COVID-19 Eval Order Covid19 at [facility] 12/26/20 21:40 SARS-CoV-2 (PCR) NEGATIVE (Negative) 12/26/20 21:40 Code Status & VTE Plan Code Status Full code VTE Prophylaxis Plan VTE Prophylaxis will be ordered: Yes PG Care Time/CCT Total # of Minutes Spent Total Time Spent with Patient: Total time spent is greater than 50% in c oordination of care (as documented) at patient's floor/unit and/or counseling patient: Coding Level of Care Code 99925 Initial Inpt Care Lvl 3 Diagnoses Cellulitis of both lower extremities L03.115; L03.116 Bilateral edema of lower extremity R60.0 Atrial fibrillation, permanent I48.21 (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 I50.30 Hyperlipidemia E78.5 Hyperthyroidism E05.90 GERD (gastroesophageal reflux disease) K21.9 Generalized weakness R53.1
[2020-12-27] MEDS ORDERED: PIPERACILLIN/TAZOBACTAM 4.5 GM/120 ML BAG IV STA (00:13)
[2020-12-27] MEDS ORDERED: BUMETANIDE 1 MG in SYRINGE 0 ML IV STA (00:14)
[2020-12-27] MEDS ORDERED: ONDANSETRON INJ 2 MG/ML 2 ML VIAL IV PRN (02:50)
[2020-12-27] MEDS ORDERED: BUMETANIDE 1 MG in SYRINGE 0 ML IV ONE (03:15)
[2020-12-27] MEDS: ACETAMINOPHEN 325 MG TAB PO PRN ×2 (04:13→11:20)
[2020-12-27] MEDS: PANTOprazole 40 MG TAB PO SCH ×3 (04:13→20:45)
[2020-12-27] MEDS: PIPERACILLIN/TAZOBACTAM 3.375 GM in DEXTROSE 5% 100 ML IV SCH ×3 (06:20→20:47)
[2020-12-27] MEDS: ENOXAPARIN INJ 30 MG/0.3 ML SYR SQ SCH (06:20)
[2020-12-27 06:53] LABS: Basophils # (auto) 0.02 K/uL (0-0.2); Basophils % (auto) 0.3 %; Eosinophils # (auto) 0.22 K/uL (0-0.5); Eosinophils % (auto) 3.3 %; Hematocrit (blood only) 25.4 % (42-52); Hemoglobin 7.8 g/dL (14.0-18.0); Immature Granulocytes # (auto) 0.03 K/uL (0.00-0.02); Immature Granulocytes % (auto) 0.4 %; Lymphocytes # (auto) 0.83 K/uL (1.2-3.4); Lymphocytes % (auto) 12.3 %; Mean Corpuscular Hemoglobin 25.1 pg (25-34); Mean Corpuscular Hgb Conc 30.7 g/dL (32-36); Mean Corpuscular Volume 81.7 fL (80-100); Monocytes # (auto) 1.11 K/uL (0.11-0.59); Monocytes % (auto) 16.4 %; Neutrophils # (auto) 4.54 K/uL (1.4-6.5); Neutrophils % (auto) 67.3 %; Platelet Count 280 K/uL (130-400); RDW Coefficient of Variation 17.5 % (11.5-14.5); RDW Standard Deviation 52.4 fL (36.4-46.3); Red Blood Count 3.11 M/uL (4.7-6.1); White Blood Count 6.75 K/uL (4.8-10.8)
[2020-12-27 07:06] LABS: INR 1.2 (0.9-1.1); Partial Thromboplastin Time 27.6 Seconds (21.0-31.0); Prothrombin Time 11.7 Seconds (9.0-12.0)
[2020-12-27 07:25] LABS: Albumin Level 2.1 gm/dl (3.4-5.0); BUN Creatinine Ratio 15.2 (10-20); Calcium 6.9 mg/dl (8.5-10.1); Creatinine Clr Calc Pharmacy 61.4 ml/min; Est GFR (African American) 83.6 ml/min; Est GFR (Non-African American) 72.1 ml/min; Hypochromasia Present; Magnesium 1.7 mg/dl (1.8-2.4); Microcytosis Present; Potassium 3.4 mmol/L (3.5-5.1)
[2020-12-27 07:30] LABS: Albumin Globulin Ratio 0.8 (0.9-2); Bilirubin,Total 0.6 mg/dl (0.2-1); Globulin 2.8 gm/dl (2.5-4.0); Total Protein 4.9 gm/dl (6.4-8.2); Troponin I 0.033 ng/ml (0-0.045)
--- NOTE | 2020-12-27 07:34 | XRay Report ---
SINGLE VIEW CHEST CLINICAL HISTORY: Dyspnea. FINDINGS: An AP, portable, upright chest radiograph is compared to study dated 12/13/2020 and correlat ed with chest CT dated 11/26/2020. The examination is mildly degraded by portable technique and patient rotation. The heart is enlarged noting atherosclerotic calcification of the thoracic aorta. The pulm onary vasculature is noncongested. Chronic interstitial thickening is similar to previous. There are small pleural effusions with bibasilar atelectasis. No pneumothorax is seen. The skeletal structures are osteopenic. There are healed left-sided rib fractures. IMPRESSION: 1. Cardiomegaly without radiographic evidence of congestive failure. 2. Small pleural effusions with bibasilar atelectasis. ACT 112: Negative or not required by law. Electronically signed by: Naseem Gonzalez M.D. 12/27/2020 7:33 AM
[2020-12-27] MEDS ORDERED: BUMETANIDE 1 MG TAB PO SCH ×2 (09:00→17:00)
[2020-12-27] MEDS ORDERED: FOOD SUPPLEMT LACTOSE REDUCED PO SCH (09:00)
[2020-12-27] MEDS: METOPROLOL SUCC 25MG EXT REL TAB PO SCH (09:58)
[2020-12-27] MEDS: BUMETANIDE 1 MG TAB PO SCH ×2 (09:58→16:47)
[2020-12-27] MEDS: DOCUSATE SODIUM 100 MG CAP PO SCH ×2 (09:58→20:44)
[2020-12-27] MEDS: MULTIVITAMIN TAB PO SCH (09:59)
[2020-12-27] MEDS: methIMAzole 5 MG TABLET PO SCH (09:59)
[2020-12-27] MEDS: CALCIUM CITRATE 950 MG TAB PO SCH ×2 (09:59→20:45)
[2020-12-27] MEDS: ASPIRIN 81 MG ECTAB PO SCH (09:59)
[2020-12-27] MEDS: FERROUS SULFATE 325 MG TAB PO SCH ×2 (09:59→16:48)
--- NOTE | 2020-12-27 12:46 | Electrocardiogram Report ---
Test Reason : Blood Pressure : / mmHG Vent. Rate : 095 BPM Atrial Rate : 102 BPM P-R Int : 000 ms QRS Dur : 168 ms QT Int : 424 ms P-R-T Axes : 000 082 -16 degrees QTc Int : 532 ms Atrial fibrillation with premature ventricular or aberrantly conducted complexes Right bundle branch block T wave abnormality, consider lateral ischemia Abnormal ECG When compared with ECG of 13-DEC-2020 17:24, No significant change Confirmed by Toan Garcia ([id number]) on 12/27/2020 12:46:16 PM Referred By: REFERRED SELF Confirmed By:Toan Garcia
[2020-12-27] MEDS: POTASSIUM CHLORIDE CRTAB 20 MEQ TABCR PO SCH (16:48)
[2020-12-27] MEDS: ATORVASTATIN 40 MG TAB PO SCH (20:45)
[2020-12-27] MEDS: MELATONIN 3 MG TAB PO PRN (21:07)
[2020-12-28] MEDS: PIPERACILLIN/TAZOBACTAM 3.375 GM in DEXTROSE 5% 100 ML IV SCH ×3 (05:24→21:47)
[2020-12-28] MEDS: ENOXAPARIN INJ 30 MG/0.3 ML SYR SQ SCH (05:26)
[2020-12-28 06:58] LABS: Basophils # (auto) 0.03 K/uL (0-0.2); Basophils % (auto) 0.4 %; Eosinophils # (auto) 0.34 K/uL (0-0.5); Eosinophils % (auto) 4.9 %; Hematocrit (blood only) 30.2 % (42-52); Immature Granulocytes # (auto) 0.03 K/uL (0.00-0.02); Immature Granulocytes % (auto) 0.4 %; Lymphocytes # (auto) 0.93 K/uL (1.2-3.4); Lymphocytes % (auto) 13.5 %; Mean Corpuscular Hemoglobin 24.9 pg (25-34); Mean Corpuscular Hgb Conc 29.8 g/dL (32-36); Mean Corpuscular Volume 83.7 fL (80-100); Mean Platelet Volume 9.2 fL (7.4-10.4); Monocytes # (auto) 0.82 K/uL (0.11-0.59); Monocytes % (auto) 11.9 %; Neutrophils # (auto) 4.72 K/uL (1.4-6.5); Neutrophils % (auto) 68.9 %; Platelet Count 346 K/uL (130-400); RDW Coefficient of Variation 17.6 % (11.5-14.5); RDW Standard Deviation 54.2 fL (36.4-46.3); Red Blood Count 3.61 M/uL (4.7-6.1); White Blood Count 6.87 K/uL (4.8-10.8)
[2020-12-28 07:09] LABS: INR 1.1 (0.9-1.1); Partial Thromboplastin Time 27.3 Seconds (21.0-31.0); Prothrombin Time 10.9 Seconds (9.0-12.0)
[2020-12-28 07:38] LABS: Albumin Globulin Ratio 0.6 (0.9-2); Albumin Level 2.3 gm/dl (3.4-5.0); BUN Creatinine Ratio 15.4 (10-20); Bilirubin,Total 0.5 mg/dl (0.2-1); Calcium 7.5 mg/dl (8.5-10.1); Creatinine Clr Calc Pharmacy 60.1 ml/min; Est GFR (African American) 81.5 ml/min; Est GFR (Non-African American) 70.3 ml/min; Globulin 3.8 gm/dl (2.5-4.0); Magnesium 1.8 mg/dl (1.8-2.4); Potassium 3.5 mmol/L (3.5-5.1); Total Protein 6.1 gm/dl (6.4-8.2)
[2020-12-28] MEDS: CALCIUM CITRATE 950 MG TAB PO SCH ×2 (08:20→21:24)
[2020-12-28] MEDS: methIMAzole 5 MG TABLET PO SCH (08:20)
[2020-12-28] MEDS: BUMETANIDE 1 MG TAB PO SCH ×2 (08:20→16:23)
[2020-12-28] MEDS: METOPROLOL SUCC 25MG EXT REL TAB PO SCH (08:21)
[2020-12-28] MEDS: PANTOprazole 40 MG TAB PO SCH ×2 (08:21→21:25)
[2020-12-28] MEDS: DOCUSATE SODIUM 100 MG CAP PO SCH ×2 (08:21→21:25)
[2020-12-28] MEDS: ASPIRIN 81 MG ECTAB PO SCH (08:21)
[2020-12-28] MEDS: FERROUS SULFATE 325 MG TAB PO SCH ×2 (08:21→16:23)
[2020-12-28] MEDS: MULTIVITAMIN TAB PO SCH (08:21)
[2020-12-28] MEDS: POTASSIUM CHLORIDE CRTAB 20 MEQ TABCR PO SCH (16:23)
[2020-12-28] MEDS: ATORVASTATIN 40 MG TAB PO SCH (21:24)
[2020-12-28] MEDS: MELATONIN 3 MG TAB PO PRN (21:46)
--- NOTE | 2020-12-28 22:15 | Hospitalist Progress Note ---
Date of Service December 28, 2020 Assessment & Plan (1) Cellulitis of both lower extremities: Cellulitis and edema of both lower extremities- Give bumetanide 2 mg IV x1 in the ED tonight. Continue bumex 2 mg PO BID (increased dosing from 2 mg in the morning and 1 mg in the evening to 2 mg p.o. twice daily Zosyn 4.5 g IV every 8 hours Wound care consult (2) Bilateral edema of lower extremity: See above (3) Atrial fibrillation, permanent: Permanent atrial fibrillation/HFpEF- Continue aspirin 81 mg daily. Adjusting bumetanide 2 mg p.o. 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 twice daily (8) Generalized weakness: Multifactorial When lower extremities improved, will need PT OT consult Admission and Anticipated Discharge Date Admission Date: December 27, 2020 Subjective 89 yo male is reporting no new symptoms. Review of Systems Review of Systems: The patient denies chest pain, palpitations, cough, sore throat, fevers, chills, sweats, nausea, vomiting, diarrhea , constipation, abdominal pain, pelvic pain, blood in urine or stool, dysuria, urinary frequency or urgency, lightheadedness, dizziness, headache, loss of consciousness, focal weakness, numbness or tingling in arms or legs, generalized arthralgias or myalgias, back or neck pain, or night sweats. The review of systems is otherwise negative other than for that already noted above, and at least 10 systems have been reviewed. Physical Exam Physical Exam: The patient is awake, alert, normocephalic and atraumatic, lying in bed and in no acute distress. HEENT--PERRL, EOMI, mucous membranes and oropharynx normal. Neck--supple. No JVD. No bruits. Thyroid normal, trachea midline, no adenopathy. Heart--normal S1 and S2. No murmurs, rubs or gallops. Lungs--clear bilaterally, no respiratory distress, no accessory muscle use. Abdomen--normal bowel sounds and soft. Nontender. Nondistended. Extremities--2+ bilateral pretibial and pedal pitting edema. Dermatologic--see above Neurologic--cranial nerves II through XII grossly intact. Rheumatologic--normal range of motion, limited by condition of lower extremities Psychiatric--normal affect. Results & Data Results & Data ([facility]) Vital Signs (Past 12 Hours) Vital Signs Temp Pulse Pulse Resp BP Pulse Ox 12/28/20 19:55 36.9 C 80 20 103/66 97 12/28/20 15:19 92 H 12/28/20 15:02 36.7 C 93 H 20 102/64 96 12/28/20 13:05 36.5 C 93 H 20 99/59 L 93 PG Care Time/CCT Total # of Minutes Spent Total Time Spent with Patient: Total time spent is greater than 50% in coordination of care (as documented) at patient's floor/unit and/or counseling patient: Coding Level of Care Code 42660 Subseq Hosp Care Lvl 2 Diagnoses Cellulitis of both lower extremities L03.115; L03.116 Bilateral edema of lower extremity R60.0 Atrial fibrillation, permanent I48.21 (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
[2020-12-29] MEDS: PIPERACILLIN/TAZOBACTAM 3.375 GM in DEXTROSE 5% 100 ML IV SCH ×3 (06:06→23:21)
[2020-12-29] MEDS: ENOXAPARIN INJ 30 MG/0.3 ML SYR SQ SCH (06:06)
[2020-12-29] MEDS: CALCIUM CITRATE 950 MG TAB PO SCH ×2 (08:22→21:01)
[2020-12-29] MEDS: PANTOprazole 40 MG TAB PO SCH ×2 (08:22→21:01)
[2020-12-29] MEDS: methIMAzole 5 MG TABLET PO SCH (08:22)
[2020-12-29] MEDS: METOPROLOL SUCC 25MG EXT REL TAB PO SCH (08:23)
[2020-12-29] MEDS: FERROUS SULFATE 325 MG TAB PO SCH ×2 (08:23→16:42)
[2020-12-29] MEDS: DOCUSATE SODIUM 100 MG CAP PO SCH ×2 (08:23→21:01)
[2020-12-29] MEDS: BUMETANIDE 1 MG TAB PO SCH ×2 (08:23→16:42)
[2020-12-29] MEDS: MULTIVITAMIN TAB PO SCH (08:23)
[2020-12-29] MEDS: ASPIRIN 81 MG ECTAB PO SCH (08:24)
[2020-12-29 08:26] LABS: Basophils # (auto) 0.02 K/uL (0-0.2); Basophils % (auto) 0.3 %; Eosinophils # (auto) 0.28 K/uL (0-0.5); Eosinophils % (auto) 4.4 %; Hematocrit (blood only) 26.8 % (42-52); Hemoglobin 8.2 g/dL (14.0-18.0); Immature Granulocytes # (auto) 0.01 K/uL (0.00-0.02); Immature Granulocytes % (auto) 0.2 %; Lymphocytes # (auto) 0.84 K/uL (1.2-3.4); Lymphocytes % (auto) 13.2 %; Mean Corpuscular Hemoglobin 24.8 pg (25-34); Mean Corpuscular Hgb Conc 30.6 g/dL (32-36); Mean Corpuscular Volume 81.2 fL (80-100); Mean Platelet Volume 8.9 fL (7.4-10.4); Monocytes # (auto) 0.96 K/uL (0.11-0.59); Monocytes % (auto) 15.1 %; Neutrophils # (auto) 4.24 K/uL (1.4-6.5); Neutrophils % (auto) 66.8 %; Platelet Count 278 K/uL (130-400); RDW Coefficient of Variation 17.4 % (11.5-14.5); RDW Standard Deviation 52.1 fL (36.4-46.3); White Blood Count 6.35 K/uL (4.8-10.8)
[2020-12-29 08:38] LABS: INR 1.2 (0.9-1.1); Partial Thromboplastin Ratio 1.1; Partial Thromboplastin Time 27.9 Seconds (21.0-31.0); Prothrombin Time 11.6 Seconds (9.0-12.0)
[2020-12-29 08:55] LABS: Calcium 7.2 mg/dl (8.5-10.1); Creatinine Clr Calc Pharmacy 60.7 ml/min; Est GFR (African American) 82.5 ml/min; Est GFR (Non-African American) 71.2 ml/min; Magnesium 1.7 mg/dl (1.8-2.4); Potassium 3.6 mmol/L (3.5-5.1)
[2020-12-29 08:57] LABS: Albumin Globulin Ratio 0.6 (0.9-2); Bilirubin,Total 0.5 mg/dl (0.2-1); Globulin 3.4 gm/dl (2.5-4.0); Total Protein 5.4 gm/dl (6.4-8.2)
[2020-12-29] MEDS: POTASSIUM CHLORIDE CRTAB 20 MEQ TABCR PO SCH (16:42)
--- NOTE | 2020-12-29 17:10 | Hospitalist Progress Note ---
Date of Service December 29, 2020 Assessment & Plan (1) Cellulitis of both lower extremities: Cellulitis and edema of both lower extremities- Received bumetanide 2 mg IV x1 in the ED tonight. Continue bumex 2 mg PO BID (increased dosing from 2 mg in the morning and 1 mg in the evening to 2 mg p.o. twice daily Zosyn 4.5 g IV every 8 hours Wound care consult Patient is negative about 1.5 liters since admission. will continue to diurese. Continue current antibiotics. Family would like him to be discharged on Wednesday for dentures appointment. Patient has no white count, no fever. This may be a possibility, however goal is to continue to diurese patient and monitor improvement with antibiotics. Communication ordered for having patient ambulate. It appears patient has also improved since he was last here, and family is not interested in palliative care. (2) Bilateral edema of lower extremity: See above (3) Atrial fibrillation, permanent: Permanent atrial fibrillation/HFpEF- Continue aspirin 81 mg daily. Adjusting bumetanide 2 mg p.o. 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 twice daily (8) Generalized weakness: Multifactorial When lower extremities improved, will need PT OT consult Admission and Anticipated Discharge Date Admission Date: December 27, 2020 Subjective Had extensive discussion with daughter, she reports that he has a dental appointment to get upper dentures this Wednesday. He reports doing well. She states he has significantly improved from when he was discharged last time. And is no longer looking into palliative care given how he has improved so much. Patient and daughter would like to walk more in the hospital. Review of Systems Review of Systems: All systems reviewed & are unremarkable except as noted in HPI & below Physical Exam Physical Exam: The patient is awake, alert, normocephalic and atraumatic, lying in bed and in no acute distress. HEENT--PERRL, EOMI, mucous membranes and oropharynx normal. Neck--supple. No JVD. No bruits. Thyroid normal, trachea midline, no adenopathy. Heart--normal S1 and S2. No murmurs, rubs or gallops. Lungs--clear bilaterally, no respiratory distress, no accessory muscle use. Abdomen--normal bowel sounds and soft. Nontender. Nondistended. Extremities--2+ bilateral pretibial and pedal pitting edema. (swelling has gradualy decreased) Eythema noted, however, no longer bright red; lesions are delineated and nontender Dermatologic--see above Neurologic--cranial nerves II through XII grossly intact. Rheumatologic--normal range of motion, limited by condition of lower extremities Psychiatric--normal affect. Results & Data Results & Data ([facility]) Vital Signs (Past 12 Hours) Vital Signs Temp Pulse Resp BP BP Pulse Ox 12/29/20 15:34 36.5 C 92 H 20 97/65 L 96 12/29/20 11:30 36.7 C 91 H 20 94/49 L 92 12/29/20 07:18 36.5 C 99 H 20 107/70 90 PG Care Time/CCT Total # of Minutes Spent Total Time Spent with Patient: Total time spent is greater than 50% in coordination of care (as documented) at patient's floor/unit and/or counseling patient: Coding Level of Care Code 25564 Subseq Hosp Care Lvl 3 Diagnoses Cellulitis of both lower extremities L03.115; L03.116 Bilateral edema of lower extremity R60.0 Atrial fibrillation, permanent I48.21 (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
[2020-12-29] MEDS: MELATONIN 3 MG TAB PO PRN (21:01)
[2020-12-29] MEDS: ATORVASTATIN 40 MG TAB PO SCH (21:01)
[2020-12-30] MEDS: MAGNESIUM SULFATE / D5W 1 GM/100 ML BAG IV SCH ×2 (00:47→03:57)
[2020-12-30] MEDS: POTASSIUM CHLORIDE / WTR 10 MEQ/100 ML PLCT IV SCH ×2 (00:48→04:48)
[2020-12-30 02:52] LABS: BUN Creatinine Ratio 17.2 (10-20); Calcium 7.1 mg/dl (8.5-10.1); Creatinine Clr Calc Pharmacy 58.3 ml/min; Est GFR (African American) 78.5 ml/min; Est GFR (Non-African American) 67.7 ml/min; Magnesium 1.7 mg/dl (1.8-2.4); Potassium 3.6 mmol/L (3.5-5.1)
[2020-12-30 02:57] LABS: Phosphorus 3.1 mg/dl (2.5-4.9); Troponin I 0.024 ng/ml (0-0.045)
[2020-12-30] MEDS ORDERED: FUROSEMIDE 20 MG in SYRINGE 0 ML IV ONE (04:00)
[2020-12-30] MEDS: PIPERACILLIN/TAZOBACTAM 3.375 GM in DEXTROSE 5% 100 ML IV SCH ×2 (05:59→14:01)
[2020-12-30] MEDS: ENOXAPARIN INJ 30 MG/0.3 ML SYR SQ SCH (06:00)
[2020-12-30] MEDS: METOPROLOL SUCC 25MG EXT REL TAB PO SCH (08:42)
[2020-12-30] MEDS: CALCIUM CITRATE 950 MG TAB PO SCH (08:42)
[2020-12-30] MEDS: DOCUSATE SODIUM 100 MG CAP PO SCH (08:42)
[2020-12-30] MEDS: FERROUS SULFATE 325 MG TAB PO SCH (08:42)
[2020-12-30] MEDS: BUMETANIDE 1 MG TAB PO SCH (08:42)
[2020-12-30] MEDS: MULTIVITAMIN TAB PO SCH (08:42)
[2020-12-30] MEDS: methIMAzole 5 MG TABLET PO SCH (08:42)
[2020-12-30] MEDS: ASPIRIN 81 MG ECTAB PO SCH (08:43)
[2020-12-30] MEDS: PANTOprazole 40 MG TAB PO SCH (08:43)
--- NOTE | 2020-12-30 08:48 | XRay Report ---
XR chest 1V portable HISTORY: Shortness of breath. COMPARISON: 12/26/2020. FINDINGS: No pneumothorax. The heart remains moderately enlarged. There are small bilateral pleural e ffusions and progressive interstitial/vascular thickening consistent with pulmonary edema. Bibasilar densities persist and favor atelectasis. IMPRESSION: Interval development of mild interstitial pulmonary edema with progressive small bilateral pleural ef fusions. ACT 112: Negative or not required by law. Electronically signed by: Marty Do M.D. 12/30/2020 8:47 AM
[2020-12-30] MEDS ORDERED: MAGNESIUM OXIDE 400 MG TAB PO SCH (09:00)
--- NOTE | 2020-12-30 12:06 | Discharge Summary ---
Date of Service December 30, 2020 Admission HPI Per Admitting Provider The patient is an 89-year-old male with a past medical history including hypertension, HFpEF, volume overload, postoperative ileus, severe protein calorie malnutrition, generalized weakness, cecal mass, acute blood loss anemia, hypotension due to blood loss, acute kidney injury, multiple rib fractures, history of CVA with right-sided weakness, permanent atrial fibrillation, hyperlipidemia, pulmonary hypertension, CKD stage III A, cardiomyopathy, abdominal aortic aneurysm greater than 5.5 cm in diameter in a male, CVA, hypertension, GERD, COPD and depression. Patient presents with 15 to 20 pound weight gain over the past 2 weeks, and worsening lower extremity edema and redness over the past 3 to 4 days. Patient presented to the ED with his left lower extremity wrapped due to oozing. Principal Diagnosis Acute on chronic heart failure with preserved ejection fraction Discharge Exam Constitutional WD/WN, vitals as above no acute distress Neck trachea midline, no thyromegaly Respiratory normal respiratory effort, lungs clear to auscultation Cardiovascular Rate/Rhythm: regular rate and regular rhythm Heart Sounds: normal S1 and normal S2; no murmur Vessels: no JVD Extremities: normal capillary refill and + edema (pitting to mid chan bilaterally) Gastrointestinal (Abdomen) normal bowel sounds, soft, nontender, no hepatosplenomegaly Musculoskeletal no cyanosis or clubbing, extremities motor strength 5/5 Skin + erythema (venous stasis changes bilaterally, skin warm but not hot, not tender) Neurologic patellar DTR's 2+ bilat, sensation intact and PERRL, EOMI, accommodation nl, no face palsy, no dysarthria Psychiatric A+Ox3, euthymic affect Discharge Data Allergies Allergy/AdvReac Type Severity Reaction Status Date / Time Iodinated Contrast Media Allergy Severe ANAPHYLAXIS Verified 12/26/20 22:22 Sulfa (Sulfonamide Allergy Unknown UNKNOWN Verified 12/26/20 22:22 Antibiotics) Consultations 12/26/20 23:42 ED Decision to Admit Stat Hospital Course (1) (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: acute on chronic heart failure with preserved ejection fraction responded well to increase in Bumex to 2mg BID will continue this dose on discharge follow up with heart failure clinic (he has had issues with non-compliance in the past, hopeful that he will be better in personal care setting) fluid restriction and daily weights at [facility] (2) Cellulitis of both lower extremities: Cellulitis and edema of both lower extremities- Received bumetanide 2 mg IV x1 on admission, good response Continue bumex 2 mg PO BID (increased dosing from 2 mg in the morning and 1 mg in the evening to 2 mg p.o. twice daily Zosyn 4.5 g IV every 8 hours while admitted change to Augmentin BID for 7 more days Wound care consult Patient is negative about 2 liters since admission. (3) Bilateral edema of lower extremity: See above (4) Atrial fibrillation, permanent: Permanent atrial fibrillation/HFpEF- Continue aspirin 81 mg daily. Adjusting bumetanide 2 mg p.o. twice daily as noted above Continue metoprolol succinate 25 mg daily Increase potassium chloride 10 mEq daily to 20 mEq daily (5) Hyperlipidemia: Continue atorvastatin 40 mg in the evening (6) Hyperthyroidism: Continue methimazole (7) GERD (gastroesophageal reflux disease): Continue pantoprazole 40 mg p.o. twice daily (8) Generalized weakness: Multifactorial When lower extremities improved, will need PT OT consult Total Time Total Time Spent Total Time Spent (In Minutes): 32 Total Time Includes: Examination of the Patient, Discharge Planning, Medication Reconciliation and Other (discussed with daughter over the phone) Discharge Plan Discharge Items Patient Disposition: Personal Retirement Reason For Visit: LE CELLULITIS, LE EDEMA Discharge Diagnosis: Acute on chronic heart failure with preserved ejection fraction Lower extremity cellulitis Chronic venous stasis changes Condition on Discharge: Good Activity: Resume your previous activity Weightbearing: Full weightbearing Non-emergency contact: Primary Care Provider Call non-emergency contact if: you have any medication questions Follow-up/Referrals: Charlene Donovan PA-C [Physician Conventional Underwriter] - 01/06/21 2:00 pm (Congestive Heart Failure Program Appointment Information Early follow up is essential to managing your heart failure. An appointment has been scheduled for you with the [facility] within 7 days of discharge. Anticipate this visit to be 30-60 minutes long. Please expect a print cutter phone call from one of our nurses approximately 48 hours from discharge. They will also be placing an order for lab work to be completed 1-2 days prior to your heart failure follow up appointment. Please be sure to have this done so we can go over the results when you come in. Office Location The cardiology office building is located in front of the hospital at [address]. Bring the following with you to your follow-up doctor appointments: Please bring your daily weight log any discharge paperwork all of your medication bottles with you to this visit. ) Hakan Willingham [Primary Care Provider] - (one week) Diet: Heart Healthy Fluids: 1800ml (7 cups) Addtl Attending Provider Instructions: Medications: - BUMEX: dose increased to 2mg TWICE a day - POTASSIUM: increased to 20mEq daily - MAGNESIUM OXIDE: 400mg daily for low magnesium - AUGMENTIN: take twice a day for 7 more days for cellulitis You will need oxygen, 2L when walking around, no need for oxygen at rest Call 911 and go to the Emergency Room if: * You have tightness or pain in your chest that does not go away with rest or Nitroglycerin * You are very short of breath even with rest Call your doctor if any of the following symptoms or problems start or get worse: * Shortness of breath or difficulty breathing * Wake up at night short of breath * Chest pain * Cough * Swelling of your hands, fee, or legs * More fatigued or tired with your normal activity * Palpitations - sudden fast heart beats WEIGHT * Weigh yourself every morning after using the bathroom. * Use the same scale. * Wear the same amount of clothing. * Write your weight down on your chart. * Call your doctor if you gain more than 2-3 pounds in 1-2 days. MEDICATIONS * Use this discharge instruction sheet for instructions. * Take your medications at the time your doctor ordered. * Do not skip a dose of your medicines. * If you miss a dose of medicine, take as soon as possible, but DO NOT DOUBLE A DOSE. * Read your medicine information when you get home. * Know all of the side effects of your medicine. * Call your doctor's office if you have any side effects. * Be sure all of your doctors know what medicine and herbs you take (including cold, flu, and herbal medicine). * Pain Medicine: If you do not get relief from your pain, please call your doctor for help. Take the following with you to your follow-up doctor appointments: * Weight Chart * Medication List * List of questions Do not drink excessive alcohol, beer or wine. Pending Studies at Discharge: No Stand-Alone Forms: Scopelec, Smoking Cessation Skilled Items Patient informed of condition?: Yes DNR: No Discharge Level of Care: Other Communicable Disease: No Discharge Prognosis: Stable Lines: None Urinary Catheter: No Medications and DC Order Prescriptions: New magnesium oxide 400 mg (241.3 mg magnesium) Tablet 400 mg PO QAM 30 Days Qty: 30 RF: 0 bumetanide 1 mg Tablet 2 mg PO BID17 30 Days Qty: 60 RF: 3 potassium chloride [Klor-Con M20] 20 mEq Tablet,Er Particles/Crystals 20 meq PO DAILY 30 Days Qty: 30 RF: 3 amoxicillin-pot clavulanate [Augmentin] 875-125 mg tablet 1 tab PO BID Qty: 15 RF: 0 Continued methimazole 5 mg tablet 5 mg PO DAILY RF: 0 cholecalciferol (vitamin D3) [Vitamin D3] 125 mcg (5,000 unit) Tablet 125 mcg PO WK RF: 0 aspirin 81 mg Tablet,Delayed Release (Dr/Ec) 81 mg PO DAILY Qty: 30 RF: 0 pantoprazole 40 mg Tablet,Delayed Release (Dr/Ec) 40 mg PO BID Qty: 60 RF: 0 atorvastatin 40 mg tablet 40 mg PO HS 30 Days Qty: 30 RF: 0 ferrous sulfate 325 mg (65 mg iron) Tablet 325 mg PO BID 30 Days Qty: 60 RF: 0 docusate sodium [Colace] 100 mg Capsule 100 mg PO BID 30 Days Qty: 60 RF: 0 metoprolol succinate 25 mg tablet extended release 24 hr 25 mg PO DAILY Qty: 25 RF: 0 calcium citrate 200 mg (950 mg) Tablet 200 mg PO BID 30 Days Qty: 60 RF: 0 multivitamin [Daily-Nico] Tablet 1 tab PO DAILY RF: 0 melatonin 10 mg Tablet 10 mg PO HS PRN (Reason: Sleep) RF: 0 Ensure High Protein Liquid 1 ea PO DAILY RF: 0 Discontinued potassium chloride 10 mEq capsule, extended release 10 meq PO QPM 30 Days Qty: 30 RF: 0 bumetanide 2 mg tablet 2 mg PO QAM RF: 0 bumetanide 1 mg tablet 1 mg PO QPM RF: 0 ciprofloxacin HCl 500 mg tablet 500 mg PO BID RF: 0 Discharge Orders: Discharge Order (Routine); Ordered 12/30/20 Ordered By: Woody Soares Admission Data Admit Date/Time: 12/27/20 00:04 Attending Provider: Woody Soares Admit Provider: Sree Gonzalez Primary Care Provider: Hakan Willingham Other Providers: Sree Gonzalez Other Interventions: Discharge Summary Assessment (RN) Last Done: 12/30/20 14:42 Coding Level of Care Code D/C Day Management >30 mins Diagnoses (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 I50.30 Cellulitis of both lower extremities L03.115; L03.116 Bilateral edema of lower extremity R60.0 Atrial fibrillation, permanent I48.21 Hyperlipidemia E78.5 Hyperthyroidism E05.90 GERD (gastroesophageal reflux disease) K21.9 Generalized weakness R53.1
[2020-12-30] MEDS ORDERED: AMOXICILLIN/CLAVULANATE 875 MG TAB PO ONE (15:15)
[2020-12-30] MEDS ORDERED: BUMETANIDE 1 MG TAB PO ONE (15:15)
--- NOTE | 2020-12-30 17:13 | Electrocardiogram Report ---
Test Reason : Blood Pressure : / mmHG Vent. Rate : 094 BPM Atrial Rate : 093 BPM P-R Int : 000 ms QRS Dur : 160 ms QT Int : 422 ms P-R-T Axes : 000 099 019 degrees QTc Int : 527 ms Atrial fibrillation with premature ventricular or aberrantly conducted complexes Right bundle branch block T wave abnormality, consider anterolateral ischemia Abnormal ECG When compared with ECG of 26-DEC-2020 21:34, No significant change was found Confirmed by Davide Garcia ([id number]) on 12/30/2020 5:13:36 PM Referred By: REFERRED SELF Confirmed By:Davide Garcia
--- NOTE | 2020-12-30 17:29 | Electrocardiogram Report ---
Test Reason : Blood Pressure : / mmHG Vent. Rate : 094 BPM Atrial Rate : 105 BPM P-R Int : 000 ms QRS Dur : 164 ms QT Int : 430 ms P-R-T Axes : 000 104 -22 degrees QTc Int : 537 ms Atrial fibrillation Right bundle branch block Possible Septal infarct Abnormal ECG When compared with ECG of 29-DEC-2020 18:43, T wave inversion less evident in Anterolateral leads Confirmed by Davide Garcia ([id number]) on 12/30/2020 5:28:48 PM Referred By: REFERRED SELF Confirmed By:Davide Garcia
== END 2020-12-30 15:27 | disposition home or self-care (01) ==
LOC: ED 16:27 → INTOOBSV 12-27 00:04 → 2N 12-27 00:04 → SUATTDRO 12-27 00:04 → 2N 12-27 01:47

== ENCOUNTER 2021-02-24 14:51 | Inpatient (IN) ==
--- NOTE | 2021-02-24 15:04 | Emergency Department Note ---
Impression & Plan Acute on chronic heart failure with preserved ejection fraction (HFpEF), Anemia, Chronic respiratory failure with hypoxia, Anasarca ED Provider Note NAME: SAUD ALDRICH AGE: 89 SEX: M : 1930 ARRIVES VIA: Ambulance INFORMANT: Patient ED PROVIDER(S): Kobi Aguilar DO CHIEF COMPLAINT: Shortness of breath HPI: Patient is an 89-year-old male who presents the ER for shortness of breath and swelling in the lower extremities and abdomen. He notes symptoms have been getting worse in the past week. He has gained about 15 pounds over the past week as well. He is chronically on 3 L nasal cannula. History of CHF, A. fib, anemia, SHAY, diastolic heart failure, CVA, V. tach, lymphoma reflux and COPD. Patient notes that the swelling has been getting gradually worse. He is having more of a difficult time breathing. He does have a cough that feels like bloody but this is unchanged. No other exacerbating or remitting factors. ROS: See above HPI for pertinent positives & negatives. A total of 10 systems reviewed and were otherwise negative. PAST MEDICAL HISTORY:See Below PAST SURGICAL HISTORY:See Below FAMILY HISTORY:See Below SOCIAL HISTORY:See Below HOME MEDICATIONS:See Below ALLERGIES:See Below VITALS:See Below PHYSICAL EXAMINATION: GENERAL: Sitting up in bed, alert, chronically ill-appearing on 3 L nasal cannula EYE EXAM: normal conjunctiva. PERRL and EOM's grossly intact. OROPHARYNX: no exudate, no erythema, lips, buccal mucosa, and tongue normal and mucous membranes are moist NECK: supple, no nuchal rigidity, no adenopathy, non-tender LUNGS: Diminished bilaterally normal chest wall mechanics HEART: no murmurs, S1 normal and S2 normal ABDOMEN: abdomen soft, appears chronically distended, normo-active bowel sounds, no masses, no rebound or guarding. BACK: Back is symmetrical on inspection and there is no deformity, no midline tenderness, no CVA tenderness. SKIN: no rashes and no bruising UPPER EXTREMITIES: upper extremities are grossly normal. LOWER EXTREMITIES: Pitting edema in the bilateral lower extremities tracking up to the mid abdomen/back NEURO EXAM: Normal sensorium, cranial nerves II-XII grossly intact, normal sp eech, no gross weakness of arms, no gross weakness of legs. MEDICAL DECISION MAKING: Patient is an 89-year-old male who presents the ER with diffuse pitting edema from the lower extremities tracking up to the mid back. He is on 3 L nasal cannula. IV was established blood was obtained. Labs show no significant leukocytosis and a mild anemia at 10. BMP with LFTs bilirubin was unremarkable. proBNP was elevated at 4200. Lipase was normal. Covid was negative. Chest x- ray with pleural effusions. EKG was unremarkable. Patient was given IV fluids. Root was placed. Discussed with hospitalist admitted for further work-up of his CHF. Triage Nursing notes reviewed. Limited review of prior medical records performed Vital Signs: reviewed and remarkable for no significant abnormalities Differential diagnosis: Differential diagnoses includes but is not limited to pneumonia, bronchitis, COPD/Asthma exacerbation, pneumothorax, pulmonary embolism, congestive heart failure, acute coronary syndrome ER treatment provided: See below Diagnostics interpreted by me: ECG: A. fib rate 82 Normal axis Right bundle branch block ST depressions V1 through V6 QTC 521 Cardiac Monitoring: An order was placed for continuous cardiac monitoring. The monitor shows a rate of 80 with sinus rhythm. Laboratory studies: As stated above and show below. Imaging studies: Chest x-ray with bilateral pleural effusions and pulmonary edema Consultation(s): Discussed with Marta ash for further evaluation Procedures: none Critical Care: None Past Med/Surg History Medical History (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 Anemia Chronic kidney disease, stage 3a Chronic obstructive pulmonary disease Chronic respiratory failure with hypoxia Depression GERD (gastroesophageal reflux disease) History of CVA (cerebrovascular accident) HTN (hypertension) Hypertension Hyperthyroidism Kidney stone Lymphoma Multiple rib fractures Paroxysmal ventricular tachycardia Permanent atrial fibrillation Pleural effusion on right Pulmonary hypertension Respiratory failure requiring intubation Severe protein-calorie malnutrition Status post placement of implantable loop recorder Surgical History (Updated 02/24/21 @ 18:12 by RADHA Paulson) History of cardiac cath History 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 Family History Unknown Myocardial infarction Social History Smoking Status: Former smoker Second Hand Exposure: No; Do You Dip or Chew Tobacco: No; Tobacco Cessation Education Requested by Patient: No Hx Alcohol Use: No Hx Substance Use: No Preferred Language: Bur[place]ian Communication Ability: Effective Visual Impairment: Partially Limited 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 Beliefs That Will Affect Care: None marital status: / Current Living Situation: Personal Care Facility Current Living Situation Comment: caregiver 24 hour How many Children do You have: 6 Other Information That Helps Us Care for You: No Feels Safe at Home: Yes Safety Concerns: Feels Safe At This Time Assistive Devices: Denture - Upper, Denture - Lower, Oxygen - Continuous and Wheelchair Allergies Allergies Allergy/AdvReac Type Severity Reaction Status Date / Time Iodinated Contrast Media Allergy Severe ANAPHYLAXIS Verified 02/24/21 15:56 Sulfa (Sulfonamide Allergy Unknown UNKNOWN Verified 02/24/21 15:56 Antibiotics) Home Meds Home Medications Medication Instructions Recorded Confirmed methimazole 5 mg tablet 5 mg PO DAILY 11/22/20 02/24/21 food supplemt, lactose-reduced 1 ea PO DAILY 12/26/20 02/24/21 (Ensure High Protein) melatonin 10 mg tablet 10 mg PO HS PRN 12/26/20 02/24/21 multivitamin (Daily-Nico) 1 tab PO DAILY 12/26/20 02/24/21 acetaminophen 650 mg 1,300 mg PO DAILY PRN 02/10/21 02/24/21 tablet,extended release bumetanide 2 mg tablet 2 mg PO BID 02/10/21 02/24/21 ergocalciferol (vitamin D2) 1,250 1,250 mcg PO WK 02/10/21 02/24/21 mcg (50,000 unit) capsule (Vitamin D2) magnesium oxide 400 mg PO DAILY 02/10/21 02/24/21 Previous Rx's Medication Instructions Recorded aspirin 81 mg tablet,delayed 81 mg PO DAILY #30 tab 12/12/20 release atorvastatin 40 mg tablet 40 mg PO HS 30 Days #30 tab 12/12/20 calcium citrate 200 mg (950 mg) 200 mg PO BID 30 Days #60 tab 12/12/20 tablet docusate sodium 100 mg capsule 100 mg PO BID 30 Days #60 cap 12/12/20 (Colace) ferrous sulfate 325 mg (65 mg 325 mg PO BID 30 Days #60 tab 12/12/20 iron) tablet metoprolol succinate 25 mg 25 mg PO DAILY #25 tab 12/12/20 tablet,extended release 24 hr pantoprazole 40 mg tablet,delayed 40 mg PO BID #60 tab 12/12/20 release potassium chloride 20 mEq 20 meq PO DAILY 30 Days #30 tab 12/30/20 tablet,extended release(part/cryst) (TomasorRichCon M) Results & Data (ED) Vital Signs Vital Signs - 24 hr 02/24/21 15:53 02/24/21 15:59 02/24/21 16:00 Temperature 36.8 C Temperature Source Oral Pulse Rate 70 75 Pulse Rate from SpO2 Sensor 72 Respiratory Rate 20 Respiratory Effort / Characteristics Non-Labored Respiratory Depth Normal Blood Pressure 95/75 L 99/73 L Blood Pressure Mean 81 81 Pulse Oximetry 100 100 Oxygen Delivery Method Oxymask Room Air Oxygen Flow Rate 6 Sepsis Recent Fever Within 48 Hours No Sepsis New/Unexplained Change in Mental Status No Sepsis Action Taken by Nursing No Action Required 02/24/21 16:30 02/24/21 16:45 02/24/21 17:00 Temperature Temperature Source Pulse Rate 77 80 70 Pulse Rate from SpO2 Sensor 71 81 83 Respiratory Rate 23 33 H 28 H Respiratory Effort / Characteristics Respiratory Depth Blood Pressure 104/83 113/84 101/75 Blood Pressure Mean 90 93 83 Pulse Oximetry 100 100 86 L Oxygen Delivery Method Oxygen Flow Rate 6 6 Sepsis Recent Fever Within 48 Hours Sepsis New/Unexplained Change in Mental Status Sepsis Action Taken by Nursing 02/24/21 17:15 Temperature Temperature Source Pulse Rate 80 Pulse Rate from SpO2 Sensor 81 Respiratory Rate 26 H Respiratory Effort / Characteristics Respiratory Depth Blood Pressure 106/79 Blood Pressure Mean 88 Pulse Oximetry 100 Oxygen Delivery Method Oxygen Flow Rate Sepsis Recent Fever Within 48 Hours Sepsis New/Unexplained Change in Mental Status Sepsis Action Taken by Nursing Laboratory Data Result diagrams: 02/24/21 15:14 02/24/21 15:14 Lab Results 02/24/21 02/24/21 02/24/21 Range/Units 15:14 15:14 15:14 WBC 7.72 (4.8-10.8) K/uL RBC 4.14 L (4.7-6.1) M/uL Hgb 10.0 L (14.0-18.0) g/dL Hct 34.8 L (42-52) % MCV 84.1 (80-100) fL MCH 24.2 L (25-34) pg MCHC 28.7 L (32-36) g/dL RDW Std Deviation 59.5 H (36.4-46.3) fL RDW Coeff of Jennifer 19.4 H (11.5-14.5) % Plt Count 267 (130-400) K/uL MPV 9.5 (7.4-10.4) fL Immature Gran % (Auto) 0.1 % Neut % (Auto) 63.8 % Lymph % (Auto) 19.3 % [place] % (Auto) 14.8 % Eos % (Auto) 1.6 % Baso % (Auto) 0.4 % Neut # (Auto) 4.93 (1.4-6.5) K/uL Lymph # (Auto) 1.49 (1.2-3.4) K/uL [place] # (Auto) 1.14 H (0.11-0.59) K/uL Eos # (Auto) 0.12 (0-0.5) K/uL Baso # (Auto) 0.03 (0-0.2) K/uL Immature Gran # (Auto) 0.01 (0.00-0.02) K/uL APTT 25.9 (21.0-31.0) Seconds PTT Ratio 1.0 Sodium 143 (136-145) mmol/L Potassium 3.5 (3.5-5.1) mmol/L Chloride 103 (98-107) mmol/L Carbon Dioxide 37 H (21-32) mmol/L Anion Gap 3.0 (3-11) BUN 18 (7-18) mg/dl Creatinine 1.21 (0.6-1.4) mg/dl Est Cr Clr Drug Dosing Not Reportable Est GFR ( Amer) 61.6 ml/min Est GFR (Non-Af Amer) 53.1 ml/min BUN/Creatinine Ratio 14.5 (10-20) Glucose 128 H (70-99) mg/dl Calcium 7.7 L (8.5-10.1) mg/dl Magnesium 1.8 (1.8-2.4) mg/dl Total Bilirubin 0.4 (0.2-1) mg/dl AST 23 (15-37) U/L ALT 14 (12-78) U/L Alkaline Phosphatase 119 H (45-117) U/L Troponin I 0.016 (0-0.045) ng/ml NT-Pro-B Natriuret Pep 4285 H (0-1800) pg/ml Total Protein 6.3 L (6.4-8.2) gm/dl Albumin 2.5 L (3.4-5.0) gm/dl Globulin 3.8 (2.5-4.0) gm/dl Albumin/Globulin Ratio 0.7 L (0.9-2) Lipase 73 (73-393) U/L COVID-19 Eval Order SARS-CoV-2 (PCR) (Negative) 02/24/21 02/24/21 Range/Units 15:59 15:59 WBC (4.8-10.8) K/uL RBC (4.7-6.1) M/uL Hgb (14.0-18.0) g/dL Hct (42-52) % MCV (80-100) fL MCH (25-34) pg MCHC (32-36) g/dL RDW Std Deviation (36.4-46.3) fL RDW Coeff of Jennifer (11.5-14.5) % Plt Count (130-400) K/uL MPV (7.4-10.4) fL Immature Gran % (Auto) % Neut % (Auto) % Lymph % (Auto) % [place] % (Auto) % Eos % (Auto) % Baso % (Auto) % Neut # (Auto) (1.4-6.5) K/uL Lymph # (Auto) (1.2-3.4) K/uL [place] # (Auto) (0.11-0.59) K/uL Eos # (Auto) (0-0.5) K/uL Baso # (Auto) (0-0.2) K/uL Immature Gran # (Auto) (0.00-0.02) K/uL APTT (21.0-31.0) Seconds PTT Ratio Sodium (136-145) mmol/L Potassium (3.5-5.1) mmol/L Chloride (98-107) mmol/L Carbon Dioxide (21-32) mmol/L Anion Gap (3-11) BUN (7-18) mg/dl Creatinine (0.6-1.4) mg/dl Est Cr Clr Drug Dosing Est GFR ( Amer) ml/min Est GFR (Non-Af Amer) ml/min BUN/Creatinine Ratio (10-20) Glucose (70-99) mg/dl Calcium (8.5-10.1) mg/dl Magnesium (1.8-2.4) mg/dl Total Bilirubin (0.2-1) mg/dl AST (15-37) U/L ALT (12-78) U/L Alkaline Phosphatase (45-117) U/L Troponin I (0-0.045) ng/ml NT-Pro-B Natriuret Pep (0-1800) pg/ml Total Protein (6.4-8.2) gm/dl Albumin (3.4-5.0) gm/dl Globulin (2.5-4.0) gm/dl Albumin/Globulin Ratio (0.9-2) Lipase (73-393) U/L COVID-19 Eval Order Covid19 at [facility] SARS-CoV-2 (PCR) NEGATIVE (Negative) Administered Medications Acetaminophen (Acetaminophen 325 Mg Tab) 650 mg PO Q4H PRN PRN Reason: Pain or Fever Stop: 03/26/21 19:03 Last Admin: 02/24/21 20:52 Dose: 650 mg Documented by: [id number] Atorvastatin Calcium (Atorvastatin 40 Mg Tab) 40 mg PO HS DAVID Stop: 03/26/21 20:59 Last Admin: 02/24/21 20:48 Dose: 40 mg Documented by: [id number] Calcium Citrate (Calcium Citrate 950 Mg Tab) 950 mg PO BID DAVID Stop: 03/26/21 20:59 Last Admin: 02/24/21 20:49 Dose: 950 mg Documented by: [id number] Docusate Sodium (Docusate Sodium 100 Mg Cap) 100 mg PO BID DAVID Stop: 03/26/21 20:59 Last Admin: 02/24/21 20:49 Dose: 100 mg Documented by: [id number] Ferrous Sulfate (Ferrous Sulfate 325 Mg Tab) 325 mg PO BID DAVID Stop: 03/26/21 20:59 Last Admin: 02/24/21 20:49 Dose: 325 mg Documented by: [id number] Pantoprazole Sodium (Pantoprazole 40 Mg Tab) 40 mg PO BID DAVID Stop: 03/26/21 20:59 Last Admin: 02/24/21 20:50 Dose: 40 mg Documented by: [id number] Discontinued Medications Bumetanide 1 mg/ Syringe 4 mls @ 4 mls/min IV ONE ONE Stop: 02/24/21 16:50 Last Admin: 02/24/21 17:27 Dose: 4 mls/min Documented by: [id number] Albumin Human (Albumin 25%) 12.5 gm in 50 mls @ 50 mls/hr IV ONE ONE Stop: 02/24/21 20:29 Last Admin: 02/24/21 20:47 Dose: 50 mls/hr Documented by: [id number] Imaging Data Radiologist's Impression: Chest X-Ray 02/24/21 15:01 XR chest 1V portable CLINICAL HISTORY: Chest pain. COMPARISON STUDY: Chest CT November 26, 2020. Chest radiograph February 10, 2021. FINDINGS: There is no pneumothorax. There are small bilateral pleural effusions and bibasilar opacities. Mild pulmonary edema is present. Cardiomegaly is unchanged. IMPRESSION: 1. Mild interstitial pulmonary edema. 2. Small bilateral pleural effusions and bibasilar opacities which statistically reflect atelectasis. 3. Stable cardiomegaly. ACT 112: Negative or not required by law. Electronically signed by: Yuan Augustine M.D. 02/24/2021 3:40 PM Abdomen/Pelvis CT 02/24/21 15:23 CT OF THE ABDOMEN AND PELVIS WITHOUT CONTRAST CLINICAL HISTORY: Abdominal distention. Difficulty urinating. COMPARISON STUDY: CT of the abdomen and pelvis December 01, 2020. TECHNIQUE: Axial images of the abdomen and pelvis were obtained without IV contrast. Images were reviewed in the axial, sagittal, and coronal planes. Automated exposure control was utilized for the study. A dose lowering technique was utilized adhering to the principles of ALARA. FINDINGS: Visualized portions of the lower chest partially image small bilateral pleural effusions with associated bibasilar opacities that favor atelectasis. There is mild interlobular septal thickening. Cardiomegaly is noted. No pneumatosis, free air or portal venous gas is present. A moderate sized hiatal hernia is present. Evaluation of the abdomen and pelvis is suboptimal on this unenhanced exam. A hepatic cyst is again noted. There are gallstones within the gallbladder. Gallbladder is mildly distended. Unenhanced images of the spleen, adrenal glands and pancreas are unremarkable. There is no biliary or pancreatic ductal dilatation. Water attenuation lesion within the midpole of the right kidney is suboptimally assessed on this unenhanced exam however this favors a cyst. A few small right renal calculi are noted. There are no ureteral calculi. There is no hydronephrosis. A 6.9 x 5.3 cm abdominal aortic aneurysm is noted. This is similar to prior exam. There is no evidence for rupture. Anasarca is noted. Moderate abdominal and pelvic ascites has developed since prior examination. Th ere is no evidence for a bowel obstruction. Colonic diverticulosis is noted without evidence for acute diverticulitis. Note is made of ascites within the right inguinal hernia. There is also significant scrotal edema. No acute fracture or suspicious lesion is identified within the visualized skeletal structures. IMPRESSION: 1. Interval development of moderate ascites. Evidence for volume overload with small bilateral pleural effusions, mesenteric edema, body wall edema and scrotal edema. 2. No bowel obstruction. Colonic diverticulosis without evidence for acute diverticulitis. 3. No change in a 6.9 x 5.3 cm abdominal aortic aneurysm. No evidence for rupture. 4. Cholelithiasis. ACT 112: Negative or not required by law. Electronically signed by: Yuan Augustine M.D. 02/24/2021 4:46 PM Discharge Plan Visit Data Chief Complaint: Shortness of Breath/Dyspnea Stated Complaint: BREATHING DIFF, EDEMA, DISTENTED AB, ED Provider: Kobi Aguilar Discharge Problem: Acute on chronic heart failure with preserved ejection fraction (HFpEF), Anemia, Chronic respiratory failure with hypoxia, Anasarca Patient Disposition: Admitted As Inpatient Discharge Instructions Interventions: ED Discharge Assessment Last Done: 02/24/21 19:07
[2021-02-24 15:38] LABS: Basophils # (auto) 0.03 K/uL (0-0.2); Basophils % (auto) 0.4 %; Eosinophils # (auto) 0.12 K/uL (0-0.5); Eosinophils % (auto) 1.6 %; Hematocrit (blood only) 34.8 % (42-52); Immature Granulocytes # (auto) 0.01 K/uL (0.00-0.02); Immature Granulocytes % (auto) 0.1 %; Lymphocytes # (auto) 1.49 K/uL (1.2-3.4); Lymphocytes % (auto) 19.3 %; Mean Corpuscular Hemoglobin 24.2 pg (25-34); Mean Corpuscular Hgb Conc 28.7 g/dL (32-36); Mean Corpuscular Volume 84.1 fL (80-100); Mean Platelet Volume 9.5 fL (7.4-10.4); Monocytes # (auto) 1.14 K/uL (0.11-0.59); Monocytes % (auto) 14.8 %; Neutrophils # (auto) 4.93 K/uL (1.4-6.5); Neutrophils % (auto) 63.8 %; Platelet Count 267 K/uL (130-400); RDW Coefficient of Variation 19.4 % (11.5-14.5); RDW Standard Deviation 59.5 fL (36.4-46.3); Red Blood Count 4.14 M/uL (4.7-6.1); White Blood Count 7.72 K/uL (4.8-10.8)
--- NOTE | 2021-02-24 15:41 | XRay Report ---
XR chest 1V portable CLINICAL HISTORY: Chest pain. COMPARISON STUDY: Chest CT November 26, 2020. Chest radiograph February 10, 2021. FINDINGS: There is no pneumothorax. There are small bilateral pleural effusions and bibasilar opaciti es. Mild pulmonary edema is present. Cardiomegaly is unchanged. IMPRESSION: 1. Mild interstitial pulmonary edema. 2. Small bilateral pleural effusions and bibasilar opacities which statistically reflect atelectasis. 3. Stable cardiomegaly. ACT 112: Negative or not required by law. Electronically signed by: Yuan Augustine M.D. 02/24/2021 3:40 PM
[2021-02-24 15:50] LABS: Alanine Aminotransferase 14 U/L (12-78); Albumin Level 2.5 gm/dl (3.4-5.0); Aspartate Aminotransferase 23 U/L (15-37); BUN Creatinine Ratio 14.5 (10-20); Blood Urea Nitrogen 18 mg/dl (7-18); Calcium 7.7 mg/dl (8.5-10.1); Carbon Dioxide 37 mmol/L (21-32); Chloride 103 mmol/L (98-107); Est GFR (African American) 61.6 ml/min; Est GFR (Non-African American) 53.1 ml/min; Glucose 128 mg/dl (70-99); Lipase 73 U/L (73-393); Magnesium 1.8 mg/dl (1.8-2.4); Partial Thromboplastin Time 25.9 Seconds (21.0-31.0); Potassium 3.5 mmol/L (3.5-5.1); Sodium 143 mmol/L (136-145)
[2021-02-24 15:56] LABS: Albumin Globulin Ratio 0.7 (0.9-2); Alkaline Phosphatase 119 U/L (45-117); Bilirubin,Total 0.4 mg/dl (0.2-1); Globulin 3.8 gm/dl (2.5-4.0); NT Pro B Type Natriuretic Pept 4285 pg/ml (0-1800); Total Protein 6.3 gm/dl (6.4-8.2); Troponin I 0.016 ng/ml (0-0.045)
--- NOTE | 2021-02-24 16:48 | CT Scan Report ---
CT OF THE ABDOMEN AND PELVIS WITHOUT CONTRAST CLINICAL HISTORY: Abdominal distention. Difficulty urinating. COMPARISON STUDY: CT of the abdomen and pelvis December 01, 2020. TECHNIQUE: Axial images of the abdomen and pelvis were obtained without IV contrast. Images were revi ewed in the axial, sagittal, and coronal planes. Automated exposure control was utilized for the pete dy. A dose lowering technique was utilized adhering to the principles of ALARA. FINDINGS: Visualized portions of the lower chest partially image small bilateral pleural effusions wi th associated bibasilar opacities that favor atelectasis. There is mild interlobular septal thickenin g. Cardiomegaly is noted. No pneumatosis, free air or portal venous gas is present. A moderate sized hiatal hernia is present. Evaluation of the abdomen and pelvis is suboptimal on this unenhanced exam. A hepatic cyst is again n oted. There are gallstones within the gallbladder. Gallbladder is mildly distended. Unenhanced images of the spleen, adrenal glands and pancreas are unremarkable. There is no biliary or pancreatic ducta l dilatation. Water attenuation lesion within the midpole of the right kidney is suboptimally assesse d on this unenhanced exam however this favors a cyst. A few small right renal calculi are noted. Ther e are no ureteral calculi. There is no hydronephrosis. A 6.9 x 5.3 cm abdominal aortic aneurysm is no dev. This is similar to prior exam. There is no evidence for rupture. Anasarca is noted. Moderate abd ominal and pelvic ascites has developed since prior examination. There is no evidence for a bowel obs truction. Colonic diverticulosis is noted without evidence for acute diverticulitis. Note is made of ascites within the right inguinal hernia. There is also significant scrotal edema. No acute fracture or suspicious lesion is identified within the visualized skeletal structures. IMPRESSION: 1. Interval development of moderate ascites. Evidence for volume overload with small bilateral pleura l effusions, mesenteric edema, body wall edema and scrotal edema. 2. No bowel obstruction. Colonic diverticulosis without evidence for acute diverticulitis. 3. No change in a 6.9 x 5.3 cm abdominal aortic aneurysm. No evidence for rupture. 4. Cholelithiasis. ACT 112: Negative or not required by law. Electronically signed by: Yuan Augustine M.D. 02/24/2021 4:46 PM
[2021-02-24] MEDS ORDERED: BUMETANIDE 1 MG in SYRINGE 0 ML IV ONE ×2 (16:49→21:00)
--- NOTE | 2021-02-24 18:17 | History & Physical Report ---
Date of Service February 24, 2021 Assessment & Plan (1) Acute on chronic heart failure with preserved ejection fraction (HFpEF): (2) Anasarca: Plan: -Admit to telemetry -Patient presenting from [facility] for evaluation of worsening edema and weight gain (17 pounds in 1 month) -In the ED, saturating well on chronic 2L O2, CXR shows small bilateral pleural effusions, proBNP 4200. Exam reveals anasarca with pitting edema extending up to the flank. -Echo 09/2020-EF 60 to 65%, moderate mitral regurg, moderate tricuspid regurg -S/p Bumex 1 mg IV in the ED, hold on additional diuresis at this time and monitor response. Typically managed on Bumex 2 mg p.o. twice daily. -Root placed for strict I's/O's, daily weights, low Na+ diet -Cardiology consult (patient follows with [facility]) (3) Permanent atrial fibrillation: Plan: -Rate controlled on metoprolol, continue -Not anticoagulated secondary to chronic anemia (4) Anemia: Plan: -Hgb 10.0, at baseline (5) History of CVA (cerebrovascular accident): Plan: -Continue aspirin and statin (6) 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: Plan: -Stable per CT ABD/pelvis performed today (7) Chronic obstructive pulmonary disease: (8) Chronic respiratory failure with hypoxia: Plan: -No signs of acute exacerbation, saturating well on chronic 2 L O2 (9) DVT prophylaxis: Plan: -SQ heparin (10) Malnutrition: History of Present Illness Chief Complaint: Increased swelling, weight gain Primary Care Provider: Jane Jasmine MD 89-year-old male with PMH chronic diastolic CHF, 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 Patient is a poor historian. When asked of any complaints he states " I feel rugged". Per note that was sent with the patient from [facility], patient has had progressive weight gain and increasing lower extremity edema. It appears that patient has had a 17 pound weight gain in the past month. Patient reports his breathing feels at baseline. No reports of chest pain. Denies lightheadedness, dizziness, diaphoresis, syncopal events. No other recent illnesses, fevers, chills. No abdominal pain, nausea, vomiting, diarrhea. Denies urinary symptoms. In the ED, patient is saturating well on chronic 2 L of oxygen. BP is borderline low. Labs show proBNP 4200, otherwise unremarkable/at patient's baseline. CXR shows small bilateral pleural effusions. Exam reveals anasarca with pitting edema extending up to the flank. Root catheter was placed and patient was given Bumex 1 mg IV. Allergies Allergy/AdvReac Type Severity Reaction Status Date / Time Iodinated Contrast Media Allergy Severe ANAPHYLAXIS Verified 02/24/21 15:56 Sulfa (Sulfonamide Allergy Unknown UNKNOWN Verified 02/24/21 15:56 Antibiotics) Home Medications Medication Instructions Recorded Confirmed Type methimazole 5 mg tablet 5 mg PO DAILY 11/22/20 02/24/21 History aspirin 81 mg tablet,delayed 81 mg PO DAILY #30 tab 12/12/20 02/24/21 Rx release atorvastatin 40 mg tablet 40 mg PO HS 30 Days #30 tab 12/12/20 02/24/21 Rx calcium citrate 200 mg (950 mg) 200 mg PO BID 30 Days #60 tab 12/12/20 02/24/21 Rx tablet docusate sodium 100 mg capsule 100 mg PO BID 30 Days #60 cap 12/12/20 02/24/21 Rx (Colace) ferrous sulfate 325 mg (65 mg 325 mg PO BID 30 Days #60 tab 12/12/20 02/24/21 Rx iron) tablet metoprolol succinate 25 mg 25 mg PO DAILY #25 tab 12/12/20 02/24/21 Rx tablet,extended release 24 hr pantoprazole 40 mg tablet,delayed 40 mg PO BID #60 tab 12/12/20 02/24/21 Rx release food supplemt, lactose-reduced 1 ea PO DAILY 12/26/20 02/24/21 History (Ensure High Protein) melatonin 10 mg tablet 10 mg PO HS PRN 12/26/20 02/24/21 History multivitamin (Daily-Nico) 1 tab PO DAILY 12/26/20 02/24/21 History potassium chloride 20 mEq 20 meq PO DAILY 30 Days #30 tab 12/30/20 02/24/21 Rx tablet,extended release(part/cryst) (Klor-Con M) acetaminophen 650 mg 1,300 mg PO DAILY PRN 02/10/21 02/24/21 History tablet,extended release bumetanide 2 mg tablet 2 mg PO BID 02/10/21 02/24/21 History ergocalciferol (vitamin D2) 1,250 1,250 mcg PO WK 02/10/21 02/24/21 History mcg (50,000 unit) capsule (Vitamin D2) magnesium oxide 400 mg PO DAILY 02/10/21 02/24/21 History Past Med/Surg History Medical History (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 Anemia Chronic kidney disease, stage 3a Chronic obstructive pulmonary disease Chronic respiratory failure with hypoxia Depression GERD (gastroesophageal reflux disease) History of CVA (cerebrovascular accident) HTN (hypertension) Hypertension Hyperthyroidism Kidney stone Lymphoma Multiple rib fractures Paroxysmal ventricular tachycardia Permanent atrial fibrillation Pleural effusion on right Pulmonary hypertension Respiratory failure requiring intubation Severe protein-calorie malnutrition Status post placement of implantable loop recorder Surgical History (Updated 02/24/21 @ 18:12 by RADHA Paulson) History of cardiac cath History 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 Family History Unknown Myocardial infarction Social History Smoking Status: Former smoker Second Hand Exposure: No; Do You Dip or Chew Tobacco: No; Tobacco Cessation Education Requested by Patient: No Hx Alcohol Use: No Hx Substance Use: No Preferred Language: Mosotho Communication Ability: Effective Visual Impairment: Partially Limited Guitar Maker Required: No Beliefs That Will Affect Care: None marital status: / Current Living Situation: Personal Care Facility Current Living Situation Comment: caregiver 24 hour How many Children do You have: 6 Other Information That Helps Us Care for You: No Feels Safe at Home: Yes Safety Concerns: Feels Safe At This Time Assistive Devices: Denture - Upper, Denture - Lower, Oxygen - Continuous and Wheelchair Review of Systems Review of Systems: Reviewed with patient however felt to be somewhat unreliable Physical Exam Constitutional: WD/WN, vitals as above + ill appearing (Chronically); no acute distress Eyes: PERRL, conjunctivae normal, anicteric sclerae ENMT: external ear and nose normal, oropharynx normal Respiratory: normal respiratory effort; no respiratory distress Auscultation: + diminished lung sounds and + crackles (Bilateral bases) Cardiovascular: Rate/Rhythm: regular rate and + irregularly irregular Vessels: normal peripheral pulses Extremities: + edema (Anasarca with +2-3 pi tting edema extending up to flank) Gastrointestinal (Abdomen): normal bowel sounds, soft, nontender, no hepatosplenomegaly Musculoskeletal: Extremities: no cyanosis and no clubbing Generally weak throughout, strength 3/5 Skin: no rashes, warm and dry Neurologic: PERRL, EOMI, accommodation nl, no face palsy, no dysarthria no focal motor deficits Patient initially drowsy on exam however awakened easily to verbal stimuli Psychiatric: A+Ox3, euthymic affect Insight: + limited insight Forgetful Results & Data Results & Data ([facility]) Vital Signs (Past 12 Hours) Vital Signs Temp Pulse Resp BP Pulse Ox 02/24/21 17:15 80 26 H 106/79 100 02/24/21 17:00 70 28 H 101/75 86 L 02/24/21 16:45 80 33 H 113/84 100 02/24/21 16:30 77 23 104/83 100 02/24/21 16:00 75 99/73 L 100 02/24/21 15:53 36.8 C 70 20 95/75 L 100 Laboratory Results Short CBC 02/24/21 02/24/21 Range/Units 15:14 15:14 WBC 7.72 (4.8-10.8) K/uL Hgb 10.0 L (14.0-18.0) g/dL Hct 34.8 L (42-52) % Plt Count 267 (130-400) K/uL NT-Pro-B Natriuret Pep 4285 H (0-1800) pg/ml BMP 02/24/21 15:14 Sodium 143 Potassium 3.5 Chloride 103 Carbon Dioxide 37 H BUN 18 Creatinine 1.21 Glucose 128 H Calcium 7.7 L Cardiac Enzymes 02/24/21 Range/Units 15:14 Troponin I 0.016 (0-0.045) ng/ml Liver Function 02/24/21 Range/Units 15:14 Total Bilirubin 0.4 (0.2-1) mg/dl AST 23 (15-37) U/L ALT 14 (12-78) U/L Alkaline Phosphatase 119 H (45-117) U/L Albumin 2.5 L (3.4-5.0) gm/dl Diagnostic Findings Chest X-Ray 02/24/21 15:01 XR chest 1V portable CLINICAL HISTORY: Chest pain. COMPARISON STUDY: Chest CT November 26, 2020. Chest radiograph February 10, 2021. FINDINGS: There is no pneumothorax. There are small bilateral pleural effusions and bibasilar opacities. Mild pulmonary edema is present. Cardiomegaly is unchanged. IMPRESSION: 1. Mild interstitial pulmonary edema. 2. Small bilateral pleural effusions and bibasilar opacities which statistically reflect atelectasis. 3. Stable cardiomegaly. ACT 112: Negative or not required by law. Electronically signed by: Yuan Augustine M.D. 02/24/2021 3:40 PM Abdomen/Pelvis CT 02/24/21 15:23 CT OF THE ABDOMEN AND PELVIS WITHOUT CONTRAST CLINICAL HISTORY: Abdominal distention. Difficulty urinating. COMPARISON STUDY: CT of the abdomen and pelvis December 01, 2020. TECHNIQUE: Axial images of the abdomen and pelvis were obtained without IV contrast. Images were reviewed in the axial, sagittal, and coronal planes. Automated exposure control was utilized for the study. A dose lowering technique was utilized adhering to the principles of ALARA. FINDINGS: Visualized portions of the lower chest partially image small bilateral pleural effusions with associated bibasilar opacities that favor atelectasis. There is mild interlobular septal thickening. Cardiomegaly is noted. No pneumatosis, free air or portal venous gas is present. A moderate sized hiatal hernia is present. Evaluation of the abdomen and pelvis is suboptimal on this unenhanced exam. A hepatic cyst is again noted. There are gallstones within the gallbladder. Gallbladder is mildly distended. Unenhanced images of the spleen, adrenal glands and pancreas are unremarkable. There is no biliary or pancreatic ductal dilatation. Water attenuation lesion within the midpole of the right kidney is suboptimally assessed on this unenhanced exam however this favors a cyst. A few small right renal calculi are noted. There are no ureteral calculi. There is no hydronephrosis. A 6.9 x 5.3 cm abdominal aortic aneurysm is noted. This is similar to prior exam. There is no evidence for rupture. Anasarca is noted. Moderate abdominal and pelvic ascites has developed since prior examination. There is no evidence for a bowel obstruction. Colonic diverticulosis is noted without evidence for acute diverticulitis. Note is made of ascites within the right inguinal hernia. There is also significant scrotal edema. No acute fracture or suspicious lesion is identified within the visualized skeletal structures. IMPRESSION: 1. Interval development of moderate ascites. Evidence for volume overload with small bilateral pleural effusions, mesenteric edema, body wall edema and scrotal edema. 2. No bowel obstruction. Colonic diverticulosis without evidence for acute diverticulitis. 3. No change in a 6.9 x 5.3 cm abdominal aortic aneurysm. No evidence for rupture. 4. Cholelithiasis. ACT 112: Negative or not required by law. Electronically signed by: Yuan Augustine M.D. 02/24/2021 4:46 PM Code Status & VTE Plan Code Status Patient is a DNR as per POLST form that has accompanied the patient. VTE Prophylaxis Plan VTE Prophylaxis will be ordered: Yes Supervising Physician Co-Signing Physician Notes I have seen and examined the patient and have discussed the case with the provider above. I agree with the assessment and plan as stated. The patient is an 89-year-old man with a significant weight gain over the past two weeks. Suspect CHF exacerbation (right-sided) vs malnutrition as a cause of new ascites and swelling. Cannot rule out new onset cirrhosis with decompensation or malignant ascites without a paracentesis, however, these are lower probability for now (no worsening LFTs, hyperbilirubinemia, mildly elevated INR of 1.2 may represent nutritional deficiency.) Will try to diurese him first and then consider tap if needed. Will start with conservative management including diuretics with fluid restriction and a low salt diet. Will attempt to add some albumin. Start scheduled IV diuretic in am. Cont tracking accurate IOs and daily weights. Patient did admit to some chest pressure that lasted about 30 minutes when he arrived to the floor which has now gone. Will trend trop overnight. EKG unchanged from prior. Will consult cardiology for recs. Some crackles on pulmonary auscultation, heart: S1/2 heard without m/g/r, abdomen is protuberant with positive fluid wave. 2+ pitting edema bilaterally with a pinkish tint to distal lower legs. He is very sensitive and guarded when his legs are touched. He is mostly lying with his eyes closed but appears oriented, answering questions appropriately and is able to follow instructions. General weakness noted overall. Agree with plan as above. DO Deonte (1) Anemia Anemia type: unspecified type Qualified Code(s): D64.9 - Anemia, unspecified (2) Chronic obstructive pulmonary disease COPD type: chronic bronchitis Chronic bronchitis type: simple Qualified Code(s): J41.0 - Simple chronic bronchitis
[2021-02-24] MEDS ORDERED: NITROGLYCERIN SL 0.4 MG/TAB TAB SL PRN (19:04)
[2021-02-24] MEDS ORDERED: ALBUMIN 25% 12.5 GM/50 ML VIAL IV ONE (19:30)
[2021-02-24] MEDS: ATORVASTATIN 40 MG TAB PO SCH (20:48)
[2021-02-24] MEDS: FERROUS SULFATE 325 MG TAB PO SCH (20:49)
[2021-02-24] MEDS: CALCIUM CITRATE 950 MG TAB PO SCH (20:49)
[2021-02-24] MEDS: DOCUSATE SODIUM 100 MG CAP PO SCH (20:49)
[2021-02-24] MEDS: PANTOprazole 40 MG TAB PO SCH (20:50)
[2021-02-24] MEDS: ACETAMINOPHEN 325 MG TAB PO PRN (20:52)
[2021-02-24] MEDS ORDERED: HEPARIN SOD 5,000 UNIT/0.5 ML VIAL SQ SCH (22:00)
--- NOTE | 2021-02-24 22:47 | Electrocardiogram Report ---
Test Reason : Blood Pressure : / mmHG Vent. Rate : 082 BPM Atrial Rate : 080 BPM P-R Int : 000 ms QRS Dur : 166 ms QT Int : 446 ms P-R-T Axes : 000 073 -07 degrees QTc Int : 521 ms Atrial fibrillation Right bundle branch block T wave abnormality, consider anterolateral ischemia Abnormal ECG When compared with ECG of 13-FEB-2021 01:39, Premature ventricular complexes are no longer Present Confirmed by Davide Garcia ([id number]) on 02/24/2021 10:46:35 PM Referred By: Confirmed By:Davide Garcia
[2021-02-24] MEDS ORDERED: XOPENEX/ATROVENT 1.25mg/0.5MG NEB COMBO NEB PRN (23:12)
[2021-02-24] MEDS: LEVALBUTEROL 1.25MG/0.5ML NEB INH SCH (23:26)
[2021-02-24] MEDS: IPRATROPIUM BROMIDE NEB SOLN 0.02% 2.5 ML VIAL INH SCH (23:26)
[2021-02-25] MEDS: IPRATROPIUM BROMIDE NEB SOLN 0.02% 2.5 ML VIAL INH SCH ×6 (02:40→23:24)
[2021-02-25] MEDS: LEVALBUTEROL 1.25MG/0.5ML NEB INH SCH ×6 (02:40→23:24)
--- NOTE | 2021-02-25 04:11 | Communication Note ---
Date of Service: February 25, 2021 Made aware by RN of bloody Root catheter drainage. Some difficulty encountered during Root catheter replacement as per RN. AP Hematuria Traumatic Root catheter replacement Check UA CBC now Hold aspirin and heparin subcu until results back.
[2021-02-25 04:55] LABS: Bacteria Urine Automated Negative (Negative); Bilirubin Urine Negative (Negative); Blood Urine 3+ (Negative); Epithelial Cell Urine Auto 0-5 /lpf (0-5); Glucose Urine UA Negative (Negative); Ketones Urine Negative (Negative); Leukocyte Esterase Urine 2+ (Negative); Nitrite Urine Negative (Negative); Protein Urine 2+ (Negative); RBC Urine Automated >30 /hpf (0-4); Specific Gravity Urine 1.014 (1.000-1.030); Urobilinogen Urine Negative (Negative); WBC Urine Automated >30 /hpf (0-5); pH Urine 5.5 (4.5-7.5)
[2021-02-25 05:12] LABS: Appearance Urine Cloudy (Clear); Color Urine Red
[2021-02-25] MEDS ORDERED: ALBUT/IPRATROP 3MG/0.5MG NEB 3 ML VIAL NEB STA (05:43)
[2021-02-25] MEDS: FUROSEMIDE 40 MG in SYRINGE 0 ML IV SCH ×2 (05:49→17:14)
[2021-02-25 06:02] LABS: BUN Creatinine Ratio 14.7 (10-20); Calcium 7.6 mg/dl (8.5-10.1); Creatinine Clr Calc Pharmacy 54.7 ml/min; Est GFR (African American) 66.2 ml/min; Est GFR (Non-African American) 57.1 ml/min; Potassium 3.4 mmol/L (3.5-5.1)
[2021-02-25] MEDS ORDERED: POTASSIUM CHLORIDE CRTAB 20 MEQ TABCR PO STA ×2 (06:10→12:52)
[2021-02-25 06:11] LABS: Basophils # (auto) 0.01 K/uL (0-0.2); Basophils % (auto) 0.1 %; Eosinophils # (auto) 0.12 K/uL (0-0.5); Eosinophils % (auto) 1.8 %; Hematocrit (blood only) 34.1 % (42-52); Hemoglobin 9.8 g/dL (14.0-18.0); Immature Granulocytes # (auto) 0.01 K/uL (0.00-0.02); Immature Granulocytes % (auto) 0.1 %; Lymphocytes # (auto) 1.04 K/uL (1.2-3.4); Lymphocytes % (auto) 15.4 %; Mean Corpuscular Hemoglobin 24.4 pg (25-34); Mean Corpuscular Hgb Conc 28.7 g/dL (32-36); Mean Platelet Volume 9.2 fL (7.4-10.4); Monocytes # (auto) 1.06 K/uL (0.11-0.59); Monocytes % (auto) 15.7 %; Neutrophils # (auto) 4.52 K/uL (1.4-6.5); Neutrophils % (auto) 66.9 %; Platelet Count 234 K/uL (130-400); RDW Coefficient of Variation 19.1 % (11.5-14.5); RDW Standard Deviation 58.7 fL (36.4-46.3); Red Blood Count 4.01 M/uL (4.7-6.1); White Blood Count 6.76 K/uL (4.8-10.8)
[2021-02-25] MEDS: methIMAzole 5 MG TABLET PO SCH (07:43)
[2021-02-25] MEDS: MAGNESIUM OXIDE 400 MG TAB PO SCH (07:44)
[2021-02-25] MEDS: MULTIVITAMIN TAB PO SCH (07:44)
[2021-02-25] MEDS: FERROUS SULFATE 325 MG TAB PO SCH ×2 (07:44→20:47)
[2021-02-25] MEDS: DOCUSATE SODIUM 100 MG CAP PO SCH ×2 (07:44→20:47)
[2021-02-25] MEDS: POTASSIUM CHLORIDE CRTAB 20 MEQ TABCR PO SCH (07:44)
[2021-02-25] MEDS: METOPROLOL SUCC 25MG EXT REL TAB PO SCH (07:44)
[2021-02-25] MEDS: PANTOprazole 40 MG TAB PO SCH ×2 (07:44→20:47)
[2021-02-25] MEDS: CALCIUM CITRATE 950 MG TAB PO SCH ×2 (08:32→20:46)
[2021-02-25] MEDS ORDERED: ASPIRIN 81 MG ECTAB PO SCH (09:00)
[2021-02-25] MEDS ORDERED: FUROSEMIDE 40 MG in SYRINGE 0 ML IV SCH (09:00)
--- NOTE | 2021-02-25 12:52 | Hospitalist Progress Note ---
Date of Service February 25, 2021 Assessment & Plan (1) Acute on chronic heart failure with preserved ejection fraction (HFpEF): (2) Anasarca: Plan: Overall patient reports he is doing better. Systolic blood pressure on the soft side. Continue IV Lasix 40 mg twice daily. Monitor ins and outs along with daily weights. Most recent echo in September with a EF of 65%. Awaiting cardiology input. Root catheter in place for accurate ins and outs. CXR shows small bilateral pleural effusions, proBNP 4200. Exam reveals anasarca with pitting edema extending up to the flank. CT with possible lung infiltrates. Patient denies any cough, WBC is within normal limit. No indication for antibiotics at this time. (3) Permanent atrial fibrillation: Plan: -Rate controlled on metoprolol, continue -Not anticoagulated secondary to chronic anemia (4) Anemia: Plan: -Hgb 10.0, at baseline (5) History of CVA (cerebrovascular accident): Plan: -Continue aspirin and statin (6) 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: Plan: -Stable per CT ABD/pelvis performed today (7) Chronic obstructive pulmonary disease: (8) Chronic respiratory failure with hypoxia: Plan: -No signs of acute exacerbation, saturating well on chronic 2 L O2 (9) DVT prophylaxis: Plan: -SQ heparin (10) Malnutrition: Admission and Anticipated Discharge Date Admission Date: February 24, 2021 Subjective Patient is doing okay this morning. Reports that shortness of breath is significantly improved. Currently patient is on 2 L of nasal cannula that is his baseline. He states his abdomen is distended but it is improved from before. Denies any chest pain, cough, fever, chills or diaphoresis. Denies any diarrhea or dysuria. Denies any orthopnea or paroxysmal nocturnal dyspnea. States he does not sleep good but could not specify the reason. Rest of the review of system is negative. Review of Systems Review of Systems: All systems reviewed & are unremarkable except as noted in HPI & below Physical Exam Physical Exam: General: A&Ox3 HENT: NCAT, MMM, EOMI Eyes: PERRLA Neck: Supple, normal range of motion CVS: normal rate and rhythm Resp: b/l crackles apprecaited Abdomen: Soft, + distended, NT Extremities: LE pitting edema Neuro: face symmetric, no focal deficit Skin: warm and dry, no rashes/lesions/errythema MSK: normal ROM, no joint swelling/erythema Results & Data Results & Data ([facility]) Vital Signs (Past 12 Hours) Vital Signs Temp Pulse Resp BP BP Pulse Ox 02/25/21 11:17 76 18 92 02/25/21 10:43 96 02/25/21 10:38 36.4 C L 88 19 95/55 L 99 02/25/21 07:05 36.7 C 87 20 117/82 94 02/25/21 06:00 82 25 H 95 02/25/21 03:01 36.9 C 87 24 108/71 97 02/25/21 02:40 86 20 93 (1) Anemia Anemia type: unspecified type Qualified Code(s): D64.9 - Anemia, unspecified (2) Chronic obstructive pulmonary disease COPD type: chronic bronchitis Chronic bronchitis type: simple Qualified Code(s): J41.0 - Simple chronic bronchitis
--- NOTE | 2021-02-25 13:08 | Cardiology Consultation ---
Date of Consultation February 25, 2021 Assessment & Plan (1) Acute on chronic heart failure with preserved ejection fraction (HFpEF): -etiology of recent decompensation uncertain. -agree with Lasix 40 mg IV b.i.d. -continue metoprolol succinate. -no need to repeat echocardiogram. (2) Permanent atrial fibrillation: -his arrhythmia remains asymptomatic. -has not been on long-term anticoagulation due to his elevated fall risk. (3) HTN (hypertension): -adequate control on current medical regimen. History of Present Illness Attending Physician: Cherie Serrano MD History of Present Illness Mr. Smiley is an 89-year-old admitted yesterday with hypervolemia. This consultation was ordered to assistance cardiac management. Of note, the patient is well known to me from the outpatient setting. The patient was in his usual state of health until approximately 1 week prior to presentation. The patient began to note increasing lower extremity edema and exertional dyspnea. He apparently gained 17 lb over this time frame. He was sent to the emergency room for further evaluation. The patient does carry history of chronic diastolic CHF. He typically takes Bumex 2 mg b.i.d.. He does not follow daily weights at home. He also carries a history of a resolved nonischemic cardiomyopathy. An echocardiogram performed on October 16, 2020 noted normal left ventricular systolic function with ejection fraction of 60-65%. There was mild LVH, modera te mitral regurgitation, and moderate tricuspid regurgitation. This was unchanged from study done in November 2018. Currently, patient is resting comfortably in bed without complaints. Past medical and surgical history 1. Chronic diastolic CHF 2. Resolved nonischemic cardiomyopathy 3. Hypertension 4. Mild LVH 5. Permanent atrial fibrillation 6. Paroxysmal ventricular tachycardia 7. Mild aortic insufficiency 8. Moderate mitral regurgitation 9. Peripheral vascular disease 10. AAA -6.5 cm, November 2018, conservative management 11. COPD 12. Hyperthyroidism 13. Cholelithiasis 14. Lymphoma 15. GERD 16. Depression 17. Tubular adenoma 18. Status post ileocecectomy 19. LINQ recorder, May 2018 Social history , lives with his daughter No tobacco alcohol Family history noncontributory Review of systems A 10 point review systems was negative except that described above. Allergies Allergy/AdvReac Type Severity Reaction Status Date / Time Iodinated Contrast Media Allergy Severe ANAPHYLAXIS Verified 02/24/21 15:56 Sulfa (Sulfonamide Allergy Unknown UNKNOWN Verified 02/24/21 15:56 Antibiotics) Home Medications Medication Instructions Recorded Confirmed Type methimazole 5 mg tablet 5 mg PO DAILY 11/22/20 02/24/21 History aspirin 81 mg tablet,delayed 81 mg PO DAILY #30 tab 12/12/20 02/24/21 Rx release atorvastatin 40 mg tablet 40 mg PO HS 30 Days #30 tab 12/12/20 02/24/21 Rx calcium citrate 200 mg (950 mg) 200 mg PO BID 30 Days #60 tab 12/12/20 02/24/21 Rx tablet docusate sodium 100 mg capsule 100 mg PO BID 30 Days #60 cap 12/12/20 02/24/21 Rx (Colace) ferrous sulfate 325 mg (65 mg 325 mg PO BID 30 Days #60 tab 12/12/20 02/24/21 Rx iron) tablet metoprolol succinate 25 mg 25 mg PO DAILY #25 tab 12/12/20 02/24/21 Rx tablet,extended release 24 hr pantoprazole 40 mg tablet,delayed 40 mg PO BID #60 tab 12/12/20 02/24/21 Rx release food supplemt, lactose-reduced 1 ea PO DAILY 12/26/20 02/24/21 History (Ensure High Protein) melatonin 10 mg tablet 10 mg PO HS PRN 12/26/20 02/24/21 History multivitamin (Daily-Nico) 1 tab PO DAILY 12/26/20 02/24/21 History potassium chloride 20 mEq 20 meq PO DAILY 30 Days #30 tab 12/30/20 02/24/21 Rx tablet,extended release(part/cryst) (Klor-Con M) acetaminophen 650 mg 1,300 mg PO DAILY PRN 02/10/21 02/24/21 History tablet,extended release bumetanide 2 mg tablet 2 mg PO BID 02/10/21 02/24/21 History ergocalciferol (vitamin D2) 1,250 1,250 mcg PO WK 02/10/21 02/24/21 History mcg (50,000 unit) capsule (Vitamin D2) magnesium oxide 400 mg PO DAILY 02/10/21 02/24/21 History Patient History Medical History (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 Anemia Chronic kidney disease, stage 3a Chronic obstructive pulmonary disease Chronic respiratory failure with hypoxia Depression GERD (gastroesophageal reflux disease) History of CVA (cerebrovascular accident) HTN (hypertension) Hypertension Hyperthyroidism Kidney stone Lymphoma Multiple rib fractures Paroxysmal ventricular tachycardia Permanent atrial fibrillation Pleural effusion on right Pulmonary hypertension Respiratory failure requiring intubation Severe protein-calorie malnutrition Status post placement of implantable loop recorder Surgical History (Updated 02/24/21 @ 18:12 by RADHA Paulson) History of cardiac cath History 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 Family History Unknown Myocardial infarction Social History Smoking Status: Former smoker Second Hand Exposure: No; Do You Dip or Chew Tobacco: No; Tobacco Cessation Education Requested by Patient: No Hx Alcohol Use: No Hx Substance Use: No Preferred Language: Telugu Communication Ability: Effective Visual Impairment: Partially Limited Tab Builder Required: No Beliefs That Will Affect Care: None marital status: / Current Living Situation: Personal Care Facility Current Living Situation Comment: caregiver 24 hour How many Children do You have: 6 Other Information That Helps Us Care for You: No Feels Safe at Home: Yes Safety Concerns: Feels Safe At This Time Assistive Devices: Wheelchair Physical Exam Physical Exam: In general this is a well-developed well-nourished elderly white male in no acute distress. HEENT exam is negative. Neck is supple with full carotid upstrokes. No carotid bruits. No JVD. There is no thyromegaly. Cardiovascular exam reveals an irregular rhythm with distant heart sounds. No ob vious murmurs. No S3. Lungs are clear without rales, rhonchi, or wheezes. Abdomen is soft without bruits. Extremities reveal intact radial artery pulses bilaterally. Trace pretibial edema is noted. Results & Data ([facility]) Vital Signs (Past 12 Hours) Vital Signs Temp Pulse Resp BP BP Pulse Ox 02/25/21 11:17 76 18 92 02/25/21 10:43 96 02/25/21 10:38 36.4 C L 88 19 95/55 L 99 02/25/21 07:05 36.7 C 87 20 117/82 94 02/25/21 06:00 82 25 H 95 02/25/21 03:01 36.9 C 87 24 108/71 97 02/25/21 02:40 86 20 93 Laboratory Results CBC notes hemoglobin 9.8, crit 34.1, white count 6.7, and platelet count 697131. Electrolytes note a sodium of 141, potassium 3.4, chloride 104, bicarb 39, BUN 17, creatinine 1.14. Initial troponin I level was 0.016 with follow-up values of 0.017, and less than 0.015. BNP was elevated 4833. Diagnostic Findings EKG notes atrial fibrillation and a complete right bundle branch block. Chest x-ray notes cardiomegaly and interstitial edema. Small bilateral pleural effusions are noted. PG Care Time/CCT Total # of Minutes Spent Total Time Spent with Patient: Total time spent is greater than 50% in coordination of care (as documented) at patient's floor/unit and/or counseling patient: Coding Level of Care Code 11245 Initial Inpt Care Lvl 3 Diagnoses Acute on chronic heart failure with preserved ejection fraction (HFpEF) I50.33 Permanent atrial fibrillation I48.21 HTN (hypertension) I10 Hypertension type: essential hypertension (1) HTN (hypertension) Hypertension type: essential hypertension Qualified Code(s): I10 - Essential (primary) hypertension
[2021-02-25] MEDS: POLYETHYLENE (MIRALAX) 17 GM PACK PO PRN (13:48)
[2021-02-25 20:39] LABS: Hematocrit (blood only) 35.7 % (42-52); Hemoglobin 10.1 g/dL (14.0-18.0)
[2021-02-25] MEDS: MELATONIN 3 MG TAB PO PRN (20:46)
[2021-02-25] MEDS: ACETAMINOPHEN 325 MG TAB PO PRN (20:46)
[2021-02-25] MEDS: ATORVASTATIN 40 MG TAB PO SCH (20:47)
[2021-02-26] MEDS: IPRATROPIUM BROMIDE NEB SOLN 0.02% 2.5 ML VIAL INH SCH ×3 (03:05→10:17)
[2021-02-26] MEDS: LEVALBUTEROL 1.25MG/0.5ML NEB INH SCH ×3 (03:06→10:17)
--- NOTE | 2021-02-26 05:34 | Electrocardiogram Report ---
Test Reason : Blood Pressure : / mmHG Vent. Rate : 080 BPM Atrial Rate : 258 BPM P-R Int : 000 ms QRS Dur : 180 ms QT Int : 442 ms P-R-T Axes : 000 101 -02 degrees QTc Int : 509 ms Atrial fibrillation Right bundle branch block Possible Septal infarct , age undetermined T wave abnormality, consider lateral ischemia Abnormal ECG When compared with ECG of 24-FEB-2021 15:20, No significant change Confirmed by Davide Garcia ([id number]) on 02/26/2021 5:33:48 AM Referred By: BEN Confirmed By:Davide Garcia
[2021-02-26 06:27] LABS: Hematocrit (blood only) 35.2 % (42-52); Hemoglobin 10.1 g/dL (14.0-18.0); Mean Corpuscular Hemoglobin 24.3 pg (25-34); Mean Corpuscular Hgb Conc 28.7 g/dL (32-36); Mean Corpuscular Volume 84.6 fL (80-100); Mean Platelet Volume 9.5 fL (7.4-10.4); Platelet Count 248 K/uL (130-400); RDW Coefficient of Variation 19.2 % (11.5-14.5); RDW Standard Deviation 59.1 fL (36.4-46.3); Red Blood Count 4.16 M/uL (4.7-6.1); White Blood Count 7.29 K/uL (4.8-10.8)
[2021-02-26 06:51] LABS: BUN Creatinine Ratio 14.4 (10-20); Calcium 8.4 mg/dl (8.5-10.1); Creatinine Clr Calc Pharmacy 51.1 ml/min; Est GFR (African American) 66.9 ml/min; Est GFR (Non-African American) 57.7 ml/min; Phosphorus 2.9 mg/dl (2.5-4.9); Potassium 4.2 mmol/L (3.5-5.1)
[2021-02-26] MEDS ORDERED: ALBUMIN HUMAN 25% 12.5 GM/50 ML VIAL IV ONE (08:28)
[2021-02-26] MEDS: POTASSIUM CHLORIDE CRTAB 20 MEQ TABCR PO SCH (08:30)
[2021-02-26] MEDS: FUROSEMIDE 40 MG in SYRINGE 0 ML IV SCH ×2 (08:30→17:01)
[2021-02-26] MEDS: FERROUS SULFATE 325 MG TAB PO SCH ×2 (08:31→21:07)
[2021-02-26] MEDS: CALCIUM CITRATE 950 MG TAB PO SCH ×2 (08:31→21:07)
[2021-02-26] MEDS: MAGNESIUM OXIDE 400 MG TAB PO SCH (08:31)
[2021-02-26] MEDS: MULTIVITAMIN TAB PO SCH (08:31)
[2021-02-26] MEDS: methIMAzole 5 MG TABLET PO SCH (08:31)
[2021-02-26] MEDS: DOCUSATE SODIUM 100 MG CAP PO SCH ×2 (08:31→21:07)
[2021-02-26] MEDS: PANTOprazole 40 MG TAB PO SCH ×2 (08:31→21:07)
[2021-02-26] MEDS: METOPROLOL SUCC 25MG EXT REL TAB PO SCH (08:31)
[2021-02-26] MEDS: ALBUMIN 25% 12.5 GM/50 ML VIAL IV SCH ×2 (08:36→09:51)
--- NOTE | 2021-02-26 11:11 | Hospitalist Progress Note ---
Date of Service February 26, 2021 Assessment & Plan (1) Acute on chronic heart failure with preserved ejection fraction (HFpEF): (2) Anasarca: Plan: Overall patient reports he is doing better/ breathing better. Systolic blood pressure on the lower side. Continue IV Lasix 40 mg twice daily. Monitor ins and outs along with daily weights. Most recent echo in September with a EF of 65%. Cardiology consulted (Dr. Rowland) - no need for repeat echocardiogram, continue current regimen Root catheter in place for accurate ins and outs. CXR shows small bilateral pleural effusions, proBNP 4200. Exam reveals anasarca with pitting edema extending up to the flank. CT with possible lung infiltrates. Patient denies any cough, WBC is within normal limit. No indication for antibiotics at this time. (3) Permanent atrial fibrillation: Plan: -Rate controlled on metoprolol, continue -Not anticoagulated secondary to chronic anemia, and falls (4) Anemia: Plan: -Hgb 10.0, at baseline (5) History of CVA (cerebrovascular accident): Plan: -Continue aspirin and statin (6) 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: Plan: -Stable per CT ABD/pelvis performed on admission (7) Chronic obstructive pulmonary disease: (8) Chronic respiratory failure with hypoxia: Plan: -No signs of acute exacerbation, yesterday saturating well on chronic 2 L O2 - now on 4L sating 98%, goal O2 sats 88-92% (9) DVT prophylaxis: Plan: -SQ heparin (10) Malnutrition: Admission and Anticipated Discharge Date Admission Date: February 24, 2021 Subjective Patient seen in follow-up of shortness of breath, acute CHF exacerbation Currently he is sitting up in the chair, in no acute distress, using nasal cannula, 4 L He has occasional cough, he says it is chronic Denies any increase shortness of breath or chest pain He is actually eager to go home Review of Systems Review of Systems: All systems reviewed & are unremarkable except as noted in Subjective Physical Exam Physical Exam: General: A&Ox3, elderly frail M in NAD, on NC 4L HEENT: NCAT, MMM, EOMI, PERRL Neck: Supple, normal range of motion CVS: irregular rhythm Resp: + b/l crackles Abdomen: Soft, + distended, NT Extremities: LE pitting edema Neuro: face symmetric, no focal deficit Skin: warm and dry, no rashes/lesions/erythema MSK: normal ROM, no joint swelling/erythema Results & Data Results & Data ([facility]) Vital Signs (Past 12 Hours) Vital Signs Temp Pulse Resp BP Pulse Ox 02/26/21 10:17 80 21 98 02/26/21 07:04 99 H 20 96 02/26/21 06:59 37.0 C 99 H 20 95/59 L 96 02/26/21 03:42 36.7 C 84 18 117/73 94 02/26/21 03:07 77 22 93 02/25/21 23:28 36.9 C 85 18 107/72 99 Laboratory Results 02/26/21 02/26/21 02/25/21 Range/Units 05:58 05:58 19:51 WBC 7.29 (4.8-10.8) K/uL RBC 4.16 L (4.7-6.1) M/uL Hgb 10.1 L 10.1 L (14.0-18.0) g/dL Hct 35.2 L 35.7 L (42-52) % MCV 84.6 (80-100) fL MCH 24.3 L (25-34) pg MCHC 28.7 L (32-36) g/dL RDW Std Deviation 59.1 H (36.4-46.3) fL RDW Coeff of Jennifer 19.2 H (11.5-14.5) % Plt Count 248 (130-400) K/uL MPV 9.5 (7.4-10.4) fL Sodium 142 (136-145) mmol/L Potassium 4.2 D (3.5-5.1) mmol/L Chloride 103 (98-107) mmol/L Carbon Dioxide 38 H (21-32) mmol/L Anion Gap 1.0 L (3-11) BUN 16 (7-18) mg/dl Creatinine 1.13 (0.6-1.4) mg/dl Est Cr Clr Drug Dosing 51.1 ml/min Est GFR ( Amer) 66.9 ml/min Est GFR (Non-Af Amer) 57.7 ml/min BUN/Creatinine Ratio 14.4 (10-20) Glucose 101 H (70-99) mg/dl Calcium 8.4 L (8.5-10.1) mg/dl Phosphorus 2.9 (2.5-4.9) mg/dl Magnesium 2.0 (1.8-2.4) mg/dl Medications Administered Current Inpatient Medications Acetaminophen (Acetaminophen 325 Mg Tab) 650 mg PO Q4H PRN PRN Reason: Pain or Fever Stop: 03/26/21 19:03 Last Admin: 02/25/21 20:46 Dose: 650 mg Documented by: Atorvastatin Calcium (Atorvastatin 40 Mg Tab) 40 mg PO HS DAVID Stop: 03/26/21 20:59 Last Admin: 02/25/21 20:47 Dose: 40 mg Documented by: Calcium Citrate (Calcium Citrate 950 Mg Tab) 950 mg PO BID DAVID Stop: 03/26/21 20:59 Last Admin: 02/26/21 08:31 Dose: 950 mg Documented by: Docusate Sodium (Docusate Sodium 100 Mg Cap) 100 mg PO BID DAVID Stop: 03/26/21 20:59 Last Admin: 02/26/21 08:31 Dose: 100 mg Documented by: Ferrous Sulfate (Ferrous Sulfate 325 Mg Tab) 325 mg PO BID DAVID Stop: 03/26/21 20:59 Last Admin: 02/26/21 08:31 Dose: 325 mg Documented by: Heparin Sodium (Porcine) (Heparin Sod 5,000 Unit/0.5 Ml Vial) 5,000 units SQ Q8 DAVID Stop: 03/26/21 21:59 Last Admin: 02/24/21 22:02 Dose: 5,000 units Documented by: Furosemide 40 mg/ Syringe 4 mls @ 4 mls/min IV [id number] DAVID Stop: 03/27/21 05:59 Last Admin: 02/26/21 08:30 Dose: 4 mls/min Documented by: Ipratropium [address] (Ipratropium [address] Neb Soln 0.02% 2.5 Ml Vial) 0.5 mg INH Q4R DAVID Stop: 03/26/21 23:14 Last Admin: 02/26/21 10:17 Dose: 0.5 mg Documented by: Levalbuterol HCl (Levalbuterol 1.25mg/0.5ml Neb) 1.25 mg INH Q4R DAVID Stop: 03/26/21 23:14 Last Admin: 02/26/21 10:17 Dose: 1.25 mg Documented by: Magnesium Oxide (Magnesium Oxide 400 Mg Tab) 400 mg PO DAILY DAVID Stop: 03/27/21 08:59 Last Admin: 02/26/21 08:31 Dose: 400 mg Documented by: Melatonin (Melatonin 3 Mg Tab) 3 mg PO HS PRN PRN Reason: Sleep Stop: 03/27/21 19:30 Last Admin: 02/25/21 20:46 Dose: 3 mg Documented by: Methimazole (Methimazole 5 Mg Tablet) 5 mg PO DAILY DAVID Stop: 03/27/21 08:59 Last Admin: 02/26/21 08:31 Dose: 5 mg Documented by: Metoprolol Succinate (Metoprolol Succ 25mg Ext Rel Tab) 25 mg PO DAILY DAVID Stop: 03/27/21 08:59 Last Admin: 02/26/21 08:31 Dose: 25 mg Documented by: Multivitamins (Multivitamin Tab) 1 tab PO DAILY DAVID Stop: 03/27/21 08:59 Last Admin: 02/26/21 08:31 Dose: 1 tab Documented by: Nitroglycerin (Nitroglycerin Sl 0.4 Mg/Tab Tab) 0.4 mg SL UD PRN PRN Reason: Chest Pain Stop: 03/26/21 19:03 Pantoprazole Sodium (Pantoprazole 40 Mg Tab) 40 mg PO BID DAVID Stop: 03/26/21 20:59 Last Admin: 02/26/21 08:31 Dose: 40 mg Documented by: Polyethylene Glycol (Polyethylene (Miralax) 17 Gm Pack) 17 gm PO DAILY PRN PRN Reason: Constipation Stop: 03/27/21 13:29 Last Admin: 02/25/21 13:48 Dose: 17 gm Documented by: Potassium Chloride (Potassium Chloride Crtab 20 Meq Tabcr) 20 meq PO DAILY DAVID Stop: 03/27/21 08:59 Last Admin: 02/26/21 08:30 Dose: 20 meq Documented by: (1) Anemia Anemia type: unspecified type Qualified Code(s): D64.9 - Anemia, unspecified (2) Chronic obstructive pulmonary disease COPD type: chronic bronchitis Chronic bronchitis type: simple Qualified Code(s): J41.0 - Simple chronic bronchitis
[2021-02-26] MEDS ORDERED: IPRATROPIUM BROMIDE NEB SOLN 0.02% 2.5 ML VIAL INH PRN (14:30)
[2021-02-26] MEDS ORDERED: LEVALBUTEROL 1.25MG/0.5ML NEB INH PRN (14:30)
--- NOTE | 2021-02-26 20:42 | XRay Report ---
XR chest 1V portable HISTORY: Shortness of breath. Follow-up. COMPARISON: Chest 02/24/2021. FINDINGS: No pneumothorax. Small bilateral pleural effusions and bibasilar densities, unchanged. The heart remains enlarged. There is mild interstitial pulmonary edema which is also similar to the prior study. No new focal lung consolidations. IMPRESSION: No significant change in the cardiomegaly, mild interstitial pulmonary edema, and small bilateral ple ural effusions/densities. ACT 112: Negative or not required by law. Electronically signed by: Marty Do M.D. 02/26/2021 8:40 PM
[2021-02-26] MEDS: ATORVASTATIN 40 MG TAB PO SCH (21:07)
[2021-02-26] MEDS: MELATONIN 3 MG TAB PO PRN (21:52)
[2021-02-26] MEDS: ACETAMINOPHEN 325 MG TAB PO PRN (21:52)
[2021-02-27 07:03] LABS: Hematocrit (blood only) 34.4 % (42-52); Hemoglobin 9.8 g/dL (14.0-18.0); Mean Corpuscular Hgb Conc 28.5 g/dL (32-36); Mean Corpuscular Volume 84.3 fL (80-100); Mean Platelet Volume 9.7 fL (7.4-10.4); Platelet Count 241 K/uL (130-400); RDW Coefficient of Variation 19.1 % (11.5-14.5); RDW Standard Deviation 58.4 fL (36.4-46.3); Red Blood Count 4.08 M/uL (4.7-6.1); White Blood Count 7.22 K/uL (4.8-10.8)
[2021-02-27 07:26] LABS: BUN Creatinine Ratio 16.6 (10-20); Calcium 8.3 mg/dl (8.5-10.1); Creatinine Clr Calc Pharmacy 53.9 ml/min; Est GFR (African American) 71.5 ml/min; Est GFR (Non-African American) 61.7 ml/min; Magnesium 2.1 mg/dl (1.8-2.4); Potassium 4.6 mmol/L (3.5-5.1)
[2021-02-27] MEDS: methIMAzole 5 MG TABLET PO SCH (08:10)
[2021-02-27] MEDS: PANTOprazole 40 MG TAB PO SCH ×2 (08:10→21:16)
[2021-02-27] MEDS: METOPROLOL SUCC 25MG EXT REL TAB PO SCH (08:10)
[2021-02-27] MEDS: DOCUSATE SODIUM 100 MG CAP PO SCH ×2 (08:10→21:16)
[2021-02-27] MEDS: FERROUS SULFATE 325 MG TAB PO SCH ×2 (08:10→21:16)
[2021-02-27] MEDS: MULTIVITAMIN TAB PO SCH (08:10)
[2021-02-27] MEDS: MAGNESIUM OXIDE 400 MG TAB PO SCH (08:10)
[2021-02-27] MEDS: CALCIUM CITRATE 950 MG TAB PO SCH ×2 (08:10→21:17)
[2021-02-27] MEDS: POTASSIUM CHLORIDE CRTAB 20 MEQ TABCR PO SCH (08:10)
[2021-02-27] MEDS: ALBUMIN 25% 12.5 GM/50 ML VIAL IV SCH ×4 (08:51→15:22)
--- NOTE | 2021-02-27 10:39 | Hospitalist Progress Note ---
Date of Service February 27, 2021 Assessment & Plan (1) Acute on chronic heart failure with preserved ejection fraction (HFpEF): (2) Anasarca: Plan: Overall patient reports he is doing well/ breathing much better. Systolic blood pressure on the lower side. Continued IV Lasix 40 mg twice daily. Monitor ins and outs along with daily weights. Most recent echo in September with a EF of 65%. Cardiology consulted (Dr. Rowland) - no need for repeat echocardiogram, continue current regimen Root catheter in place for accurate ins and outs. CXR shows small bilateral pleural effusions, proBNP 4200. Exam reveals anasarca with pitting edema extending up to the flank. CT with possible lung infiltrates. Patient denies any cough, WBC is within normal limit. 02/28 -clinically patient much improved, patient is breathing w/o difficulty, at baseline oxygen, lower extremity edema mostly resolved, eager for DC (3) Permanent atrial fibrillation: Plan: -Rate controlled on metoprolol, continue -Not anticoagulated secondary to chronic anemia, and falls (4) Anemia: Plan: -Hgb 10.0, at baseline (5) History of CVA (cerebrovascular accident): Plan: -Continue aspirin and statin (6) 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: Plan: -Stable per CT ABD/pelvis performed on admission (7) Chronic obstructive pulmonary disease: (8) Chronic respiratory failure with hypoxia: Plan: -No signs of acute exacerbation, yesterday saturating well on chronic 2 L O2 - now on 2.5L sating 98%, goal O2 sats 88-92% (9) DVT prophylaxis: Plan: -SQ heparin (10) Malnutrition: Plan: Moderate malnutrition, encourage diet higher in protein Admission and Anticipated Discharge Date Admission Date: February 24, 2021 Subjective Patient seen in follow-up of shortness of breath, acute CHF exacerbation Currently he is sitting up in the chair, in no acute distress, using nasal cannula, 2.5 L He has occasional cough, he says it is chronic Denies any increase shortness of breath or chest pain He is eager to go home, having difficulty sleeping in the hospital Review of Systems Review of Systems: All systems reviewed & are unremarkable except as noted in Subjective Physical Exam Physical Exam: General: A&Ox3, elderly frail M in NAD, on NC 2.5L HEENT: NCAT, MMM, EOMI, PERRL Neck: Supple, normal range of motion CVS: irregular rhythm Resp: + mild b/l crackles Abdomen: Soft, obese, + distended, NT Extremities: trace to 1+ LE edema (much improved) Neuro: face symmetric, speech fluent, moves extremities Skin: warm and dry, no rashes/lesions/erythema MSK: normal ROM, no joint swelling/erythema Results & Data Results & Data ([facility]) Vital Signs (Past 12 Hours) Vital Signs Temp Pulse Pulse Resp BP Pulse Ox 02/27/21 08:19 84 02/27/21 07:40 36.5 C 90 20 95/72 L 90 02/27/21 03:54 77 24 93 02/27/21 03:25 36.6 C 84 21 114/75 90 02/27/21 01:10 36.5 C 22 111/74 93 02/26/21 23:53 85 Laboratory Results 02/27/21 02/27/21 Range/Units 06:38 06:38 WBC 7.22 (4.8-10.8) K/uL RBC 4.08 L (4.7-6.1) M/uL Hgb 9.8 L (14.0-18.0) g/dL Hct 34.4 L (42-52) % MCV 84.3 (80-100) fL MCH 24.0 L (25-34) pg MCHC 28.5 L (32-36) g/dL RDW Std Deviation 58.4 H (36.4-46.3) fL RDW Coeff of Jennifer 19.1 H (11.5-14.5) % Plt Count 241 (130-400) K/uL MPV 9.7 (7.4-10.4) fL Sodium 141 (136-145) mmol/L Potassium 4.6 (3.5-5.1) mmol/L Chloride 102 (98-107) mmol/L Carbon Dioxide 40 H (21-32) mmol/L Anion Gap -1.0 L (3-11) BUN 18 (7-18) mg/dl Creatinine 1.07 (0.6-1.4) mg/dl Est Cr Clr Drug Dosing 53.9 ml/min Est GFR ( Amer) 71.5 ml/min Est GFR (Non-Af Amer) 61.7 ml/min BUN/Creatinine Ratio 16.6 (10-20) Glucose 93 (70-99) mg/dl Calcium 8.3 L (8.5-10.1) mg/dl Phosphorus 3.0 (2.5-4.9) mg/dl Magnesium 2.1 (1.8-2.4) mg/dl Medications Administered Current Inpatient Medications Acetaminophen (Acetaminophen 325 Mg Tab) 650 mg PO Q4H PRN PRN Reason: Pain or Fever Stop: 03/26/21 19:03 Last Admin: 02/26/21 21:52 Dose: 650 mg Documented by: Atorvastatin Calcium (Atorvastatin 40 Mg Tab) 40 mg PO HS DAVID Stop: 03/26/21 20:59 Last Admin: 02/26/21 21:07 Dose: 40 mg Documented by: Calcium Citrate (Calcium Citrate 950 Mg Tab) 950 mg PO BID DAVID Stop: 03/26/21 20:59 Last Admin: 02/27/21 08:10 Dose: 950 mg Documented by: Docusate Sodium (Docusate Sodium 100 Mg Cap) 100 mg PO BID DAVID Stop: 03/26/21 20:59 Last Admin: 02/27/21 08:10 Dose: 100 mg Documented by: Ferrous Sulfate (Ferrous Sulfate 325 Mg Tab) 325 mg PO BID DAVID Stop: 03/26/21 20:59 Last Admin: 02/27/21 08:10 Dose: 325 mg Documented by: Heparin Sodium (Porcine) (Heparin Sod 5,000 Unit/0.5 Ml Vial) 5,000 units SQ Q8 DAVID Stop: 03/26/21 21:59 Last Admin: 02/24/21 22:02 Dose: 5,000 units Documented by: Furosemide 40 mg/ Syringe 4 mls @ 4 mls/min IV [id number] DAVID Stop: 03/27/21 05:59 Last Admin: 02/26/21 17:01 Dose: 4 mls/min Documented by: Ipratropium [place] (Ipratropium [place] Neb Soln 0.02% 2.5 Ml Vial) 0.5 mg INH Q4R PRN PRN Reason: Shortness Of Breath Or Wheezing Stop: 03/26/21 23:14 Last Admin: 02/27/21 03:53 Dose: 0.5 mg Documented by: Levalbuterol HCl (Levalbuterol 1.25mg/0.5ml Neb) 1.25 mg INH Q4R PRN PRN Reason: Shortness Of Breath Or Wheezing Stop: 03/26/21 23:14 Last Admin: 02/27/21 03:53 Dose: 1.25 mg Documented by: Magnesium Oxide (Magnesium Oxide 400 Mg Tab) 400 mg PO DAILY DAVID Stop: 03/27/21 08:59 Last Admin: 02/27/21 08:10 Dose: 400 mg Documented by: Melatonin (Melatonin 3 Mg Tab) 3 mg PO HS PRN PRN Reason: Sleep Stop: 03/27/21 19:30 Last Admin: 02/26/21 21:52 Dose: 3 mg Documented by: Methimazole (Methimazole 5 Mg Tablet) 5 mg PO DAILY DAVID Stop: 03/27/21 08:59 Last Admin: 02/27/21 08:10 Dose: 5 mg Documented by: Metoprolol Succinate (Metoprolol Succ 25mg Ext Rel Tab) 25 mg PO DAILY DAVID Stop: 03/27/21 08:59 Last Admin: 02/27/21 08:10 Dose: Not Given Documented by: Multivitamins (Multivitamin Tab) 1 tab PO DAILY DAVID Stop: 03/27/21 08:59 Last Admin: 02/27/21 08:10 Dose: 1 tab Documented by: Nitroglycerin (Nitroglycerin Sl 0.4 Mg/Tab Tab) 0.4 mg SL UD PRN PRN Reason: Chest Pain Stop: 03/26/21 19:03 Pantoprazole Sodium (Pantoprazole 40 Mg Tab) 40 mg PO BID DAVID Stop: 03/26/21 20:59 Last Admin: 02/27/21 08:10 Dose: 40 mg Documented by: Polyethylene Glycol (Polyethylene (Miralax) 17 Gm Pack) 17 gm PO DAILY PRN PRN Reason: Constipation Stop: 03/27/21 13:29 Last Admin: 02/25/21 13:48 Dose: 17 gm Documented by: Potassium Chloride (Potassium Chloride Crtab 20 Meq Tabcr) 20 meq PO DAILY DAVID Stop: 03/27/21 08:59 Last Admin: 02/27/21 08:10 Dose: 20 meq Documented by: (1) Anemia Anemia type: unspecified type Qualified Code(s): D64.9 - Anemia, unspecified (2) Chronic obstructive pulmonary disease COPD type: chronic bronchitis Chronic bronchitis type: simple Qualified Code(s): J41.0 - Simple chronic bronchitis
[2021-02-27] MEDS: FUROSEMIDE 40 MG in SYRINGE 0 ML IV SCH (10:42)
--- NOTE | 2021-02-27 11:16 | Cardiology Progress Note ---
Date of Service February 27, 2021 Assessment & Plan (1) Acute on chronic heart failure with preserved ejection fraction (HFpEF): Plan: -etiology of recent decompensation uncertain. -continues on Lasix 40 mg IV b.i.d. -continue metoprolol succinate. (2) Permanent atrial fibrillation: Plan: -remains asymptomatic. -has not been on long-term anticoagulation due to his elevated fall risk and chronic anemia. (3) HTN (hypertension): Plan: -adequate control on current medical regimen. Admission and Anticipated Discharge Date Admission Date: February 24, 2021 Subjective The patient is resting comfortably in bedside chair without complaints of chest pain or dyspnea. Physical Exam Physical Exam: In general this is a well-developed well-nourished elderly white male in no acute distress. HEENT exam is negative. Neck is supple with full carotid upstrokes. No carotid bruits. No JVD. There is no thyromegaly. Cardiovascular exam reveals an irregular rhythm with distant heart sounds. No obvious murmurs. No S3. Lungs are clear without rales, rhonchi, or wheezes. Abdomen is soft without bruits. Extremities reveal intact radial artery pulses bilaterally. Trace to 1+ pretibial edema is noted. Results & Data ([facility]) Vital Signs (Past 12 Hours) Vital Signs Temp Pulse Pulse Resp BP Pulse Ox 02/27/21 08:19 84 02/27/21 07:40 36.5 C 90 20 95/72 L 90 02/27/21 03:54 77 24 93 02/27/21 03:25 36.6 C 84 21 114/75 90 02/27/21 01:10 36.5 C 22 111/74 93 02/26/21 23:53 85 PG Care Time/CCT Total # of Minutes Spent Total Time Spent with Patient: Total time spent is greater than 50% in coordination of care (as documented) at patient's floor/unit and/or counseling patient: Coding Level of Care Code 89061 Subseq Hosp Care Lvl 3 Diagnoses Acute on chronic heart failure with preserved ejection fraction (HFpEF) I50.33 Permanent atrial fibrillation I48.21 HTN (hypertension) I10 Hypertension type: essential hypertension (1) HTN (hypertension) Hypertension type: essential hypertension Qualified Code(s): I10 - Essential (primary) hypertension
[2021-02-27] MEDS ORDERED: FUROSEMIDE 40 MG in SYRINGE 0 ML IV ONE ×2 (14:15→16:15)
[2021-02-27] MEDS: ADVANCED PROBIOTIC 1250 MG CAPSULE PO SCH (15:03)
[2021-02-27] MEDS: cephALEXin 500 MG CAP PO SCH ×2 (15:03→21:17)
[2021-02-27] MEDS: ACETAMINOPHEN 325 MG TAB PO PRN (21:16)
[2021-02-27] MEDS: MELATONIN 3 MG TAB PO PRN (21:16)
[2021-02-27] MEDS: BUMETANIDE 1 MG TAB PO SCH (21:16)
[2021-02-27] MEDS: ATORVASTATIN 40 MG TAB PO SCH (21:17)
[2021-02-28 07:16] LABS: BUN Creatinine Ratio 17.1 (10-20); Calcium 8.4 mg/dl (8.5-10.1); Est GFR (African American) 73.1 ml/min; Est GFR (Non-African American) 63.1 ml/min; Magnesium 2.2 mg/dl (1.8-2.4); Phosphorus 3.1 mg/dl (2.5-4.9); Potassium 4.2 mmol/L (3.5-5.1)
[2021-02-28] MEDS: DOCUSATE SODIUM 100 MG CAP PO SCH (08:03)
[2021-02-28] MEDS: BUMETANIDE 1 MG TAB PO SCH (08:03)
[2021-02-28] MEDS: cephALEXin 500 MG CAP PO SCH (08:03)
--- NOTE | 2021-02-28 08:04 | Hospitalist Progress Note ---
Date of Service February 28, 2021 Assessment & Plan (1) Acute on chronic heart failure with preserved ejection fraction (HFpEF): (2) Anasarca: Plan: Overall patient reports he is doing well/ breathing much better. Systolic blood pressure on the lower side. Continued IV Lasix 40 mg twice daily. Monitor ins and outs along with daily weights. Most recent echo in September with a EF of 65%. Cardiology consulted (Dr. Rowland) - no need for repeat echocardiogram, continue current regimen Root catheter in place for accurate ins and outs. CXR shows small bilateral pleural effusions, proBNP 4200. Exam reveals anasarca with pitting edema extending up to the flank. CT with possible lung infiltrates. Patient denies any cough, WBC is within normal limit. 02/28 -clinically patient much improved, patient is breathing w/o difficulty, at baseline oxygen, lower extremity edema mostly resolved, eager for DC Nonsustained Vtach this AM, pt remained asymptomatic Discussed w/ cardiology, ok to DC on home Bumex 2 mg BID (3) Permanent atrial fibrillation: Plan: -Rate controlled on metoprolol, continue -Not anticoagulated secondary to chronic anemia, and falls (4) Anemia: Plan: -Hgb 10.0, at baseline (5) History of CVA (cerebrovascular accident): Plan: -Continue aspirin and statin (6) 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: Plan: -Stable per CT ABD/pelvis performed on admission (7) Chronic obstructive pulmonary disease: (8) Chronic respiratory failure with hypoxia: Plan: -No signs of acute exacerbation, on chronic 2 L O2 - now on 2L sating 93%, goal O2 sats 88-92% (9) DVT prophylaxis: Plan: -SQ heparin (10) Malnutrition: Plan: Moderate malnutrition, encourage diet higher in protein Admission and Anticipated Discharge Date Admission Date: February 24, 2021 Subjective Patient seen in follow-up of shortness of breath, acute CHF exacerbation Currently he is sitting up in the chair, in no acute distress, using nasal cannula, 2 L Had Vtach run, nonsustained, this AM, remained asymptomatic, cardiology aware Denies any chest pain or increased shortness of breath He is eager to go home Review of Systems Review of Systems: All systems reviewed & are unremarkable except as noted in Subjective Physical Exam Physical Exam: General: A&Ox3, elderly frail M in NAD, on NC 2L HEENT: NCAT, MMM, EOMI, PERRL Neck: Supple, normal range of motion CVS: irregular rhythm Resp: + mild b/l crackles Abdomen: Soft, obese, + distended, NT Extremities: trace to 1+ LE edema (much improved) Neuro: face symmetric, speech fluent, moves extremities Skin: warm and dry, no rashes/lesions/erythema MSK: normal ROM, no joint swelling/erythema Results & Data Results & Data ([facility]) Vital Signs (Past 12 Hours) Vital Signs Temp Pulse Pulse Resp BP Pulse Ox 02/28/21 06:56 36.6 C 94 H 18 110/72 96 02/28/21 03:07 36.5 C 96 H 18 100/64 91 02/27/21 23:43 87 02/27/21 23:03 36.6 C 87 20 104/68 94 Laboratory Results 02/28/21 Range/Units 05:34 Sodium 143 (136-145) mmol/L Potassium 4.2 (3.5-5.1) mmol/L Chloride 102 (98-107) mmol/L Carbon Dioxide 40 H (21-32) mmol/L Anion Gap 1.0 L (3-11) BUN 18 (7-18) mg/dl Creatinine 1.05 (0.6-1.4) mg/dl Est Cr Clr Drug Dosing 55.0 ml/min Est GFR ( Amer) 73.1 ml/min Est GFR (Non-Af Amer) 63.1 ml/min BUN/Creatinine Ratio 17.1 (10-20) Glucose 85 (70-99) mg/dl Calcium 8.4 L (8.5-10.1) mg/dl Phosphorus 3.1 (2.5-4.9) mg/dl Magnesium 2.2 (1.8-2.4) mg/dl Medications Administered Current Inpatient Medications Acetaminophen (Acetaminophen 325 Mg Tab) 650 mg PO Q4H PRN PRN Reason: Pain or Fever Stop: 03/26/21 19:03 Last Admin: 02/27/21 21:16 Dose: 650 mg Documented by: Atorvastatin Calcium (Atorvastatin 40 Mg Tab) 40 mg PO HS DAVID Stop: 03/26/21 20:59 Last Admin: 02/27/21 21:17 Dose: 40 mg Documented by: Bumetanide (Bumetanide 1 Mg Tab) 2 mg PO BID [facility] Stop: 03/29/21 20:59 Last Admin: 02/27/21 21:16 Dose: 2 mg Documented by: Calcium Citrate (Calcium Citrate 950 Mg Tab) 950 mg PO BID DAVID Stop: 03/26/21 20:59 Last Admin: 02/27/21 21:17 Dose: 950 mg Documented by: Cephalexin HCl (Cephalexin 500 Mg Cap) 500 mg PO BID [facility] Stop: 03/09/21 14:29 Last Admin: 02/27/21 21:17 Dose: 500 mg Documented by: Docusate Sodium (Docusate Sodium 100 Mg Cap) 100 mg PO BID DAVID Stop: 03/26/21 20:59 Last Admin: 02/27/21 21:16 Dose: 100 mg Documented by: Ferrous Sulfate (Ferrous Sulfate 325 Mg Tab) 325 mg PO BID DAVID Stop: 03/26/21 20:59 Last Admin: 02/27/21 21:16 Dose: 325 mg Documented by: Heparin Sodium (Porcine) (Heparin Sod 5,000 Unit/0.5 Ml Vial) 5,000 units SQ Q8 DAVID Stop: 03/26/21 21:59 Last Admin: 02/24/21 22:02 Dose: 5,000 units Documented by: Ipratropium [place] (Ipratropium [place] Neb Soln 0.02% 2.5 Ml Vial) 0.5 mg INH Q4R PRN PRN Reason: Shortness Of Breath Or Wheezing Stop: 03/26/21 23:14 Last Admin: 02/27/21 03:53 Dose: 0.5 mg Documented by: Lactobacillus Acidoph/Casei/Rhamnos (Advanced Probiotic 1250 Mg Capsule) 2 cap PO DAILY [facility] Stop: 03/29/21 14:14 Last Admin: 02/27/21 15:03 Dose: 2 cap Documented by: Levalbuterol HCl (Levalbuterol 1.25mg/0.5ml Neb) 1.25 mg INH Q4R PRN PRN Reason: Shortness Of Breath Or Wheezing Stop: 03/26/21 23:14 Last Admin: 02/27/21 03:53 Dose: 1.25 mg Documented by: Magnesium Oxide (Magnesium Oxide 400 Mg Tab) 400 mg PO DAILY [facility] Stop: 03/27/21 08:59 Last Admin: 02/27/21 08:10 Dose: 400 mg Documented by: Melatonin (Melatonin 3 Mg Tab) 3 mg PO HS PRN PRN Reason: Sleep Stop: 03/27/21 19:30 Last Admin: 02/27/21 21:16 Dose: 3 mg Documented by: Methimazole (Methimazole 5 Mg Tablet) 5 mg PO DAILY DAVID Stop: 03/27/21 08:59 Last Admin: 02/27/21 08:10 Dose: 5 mg Documented by: Metoprolol Succinate (Metoprolol Succ 25mg Ext Rel Tab) 25 mg PO DAILY DAVID Stop: 03/27/21 08:59 Last Admin: 02/27/21 08:10 Dose: Not Given Documented by: Multivitamins (Multivitamin Tab) 1 tab PO DAILY DAVID Stop: 03/27/21 08:59 Last Admin: 02/27/21 08:10 Dose: 1 tab Documented by: Nitroglycerin (Nitroglycerin Sl 0.4 Mg/Tab Tab) 0.4 mg SL UD PRN PRN Reason: Chest Pain Stop: 03/26/21 19:03 Pantoprazole Sodium (Pantoprazole 40 Mg Tab) 40 mg PO BID DAVID Stop: 03/26/21 20:59 Last Admin: 02/27/21 21:16 Dose: 40 mg Documented by: Polyethylene Glycol (Polyethylene (Miralax) 17 Gm Pack) 17 gm PO DAILY PRN PRN Reason: Constipation Stop: 03/27/21 13:29 Last Admin: 02/25/21 13:48 Dose: 17 gm Documented by: Potassium Chloride (Potassium Chloride Crtab 20 Meq Tabcr) 20 meq PO DAILY DAVID Stop: 03/27/21 08:59 Last Admin: 02/27/21 08:10 Dose: 20 meq Documented by: (1) Anemia Anemia type: unspecified type Qualified Code(s): D64.9 - Anemia, unspecified (2) Chronic obstructive pulmonary disease COPD type: chronic bronchitis Chronic bronchitis type: simple Qualified Code(s): J41.0 - Simple chronic bronchitis
[2021-02-28] MEDS: CALCIUM CITRATE 950 MG TAB PO SCH (08:05)
[2021-02-28] MEDS: MULTIVITAMIN TAB PO SCH (08:05)
[2021-02-28] MEDS: MAGNESIUM OXIDE 400 MG TAB PO SCH (08:05)
[2021-02-28] MEDS: ADVANCED PROBIOTIC 1250 MG CAPSULE PO SCH (08:05)
[2021-02-28] MEDS: FERROUS SULFATE 325 MG TAB PO SCH (08:05)
[2021-02-28] MEDS: POTASSIUM CHLORIDE CRTAB 20 MEQ TABCR PO SCH (08:05)
[2021-02-28] MEDS: PANTOprazole 40 MG TAB PO SCH (08:05)
[2021-02-28] MEDS: POLYETHYLENE (MIRALAX) 17 GM PACK PO PRN (08:06)
[2021-02-28] MEDS: METOPROLOL SUCC 25MG EXT REL TAB PO SCH (08:06)
[2021-02-28] MEDS: methIMAzole 5 MG TABLET PO SCH (08:06)
--- NOTE | 2021-02-28 11:38 | Discharge Summary ---
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 Patient is a poor historian. When asked of any complaints he states " I feel rugged". Per note that was sent with the patient from [facility] [place], patient has had progressive weight gain and increasing lower extremity edema. It appears that patient has had a 17 pound weight gain in the past month. Patient reports his breathing feels at baseline. No reports of chest pain. Denies lightheadedness, dizziness, diaphoresis, syncopal events. No other recent illnesses, fevers, chills. No abdominal pain, nausea, vomiting, diarrhea. Denies urinary symptoms. In the ED, patient is saturating well on chronic 2 L of oxygen. BP is borderline low. Labs show proBNP 4200, otherwise unremarkable/at patient's baseline. CXR shows small bilateral pleural effusions. Exam reveals anasarca with pitting edema extending up to the flank. Root catheter was placed and patient was given Bumex 1 mg IV. Admission Exam Per Admitting Provider Constitutional: WD/WN, vitals as above + ill appearing (Chronically); no acute distress Eyes: PERRL, conjunctivae normal, anicteric sclerae ENMT: external ear and nose normal, oropharynx normal Respiratory: normal respiratory effort; no respiratory distress Auscultation: + diminished lung sounds and + crackles (Bilateral bases) Cardiovascular: Rate/Rhythm: regular rate and + irregularly irregular Vessels: normal peripheral pulses Extremities: + edema (Anasarca with +2-3 pitting edema extending up to flank) Gastrointestinal (Abdomen): normal bowel sounds, soft, nontender, no hepatosplenomegaly Musculoskeletal: Extremities: no cyanosis and no clubbing Generally weak th roughout, strength 3/5 Skin: no rashes, warm and dry Neurologic: PERRL, EOMI, accommodation nl, no face palsy, no dysarthria no focal motor deficits Patient initially drowsy on exam however awakened easily to verbal stimuli Psychiatric: A+Ox3, euthymic affect Insight: + limited insight Forgetful Principal Diagnosis Acute on chronic heart failure with preserved ejection fraction Permanent atrial fibrillation Hx of COPD and Chronic respiratory failure with hypoxia UTI Discharge Exam General: A&Ox3, elderly frail M in NAD, on NC 2L HEENT: NCAT, MMM, EOMI, PERRL Neck: Supple, normal range of motion CVS: irregular rhythm Resp: + mild b/l crackles Abdomen: Soft, obese, + distended, NT Extremities: trace to 1+ LE edema (much improved) Neuro: face symmetric, speech fluent, moves extremities, forgetful Skin: warm and dry, no rashes/lesions/erythema MSK: normal ROM, no joint swelling/erythema Discharge Data Allergies Allergy/AdvReac Type Severity Reaction Status Date / Time Iodinated Contrast Media Allergy Severe ANAPHYLAXIS Verified 02/24/21 15:56 Sulfa (Sulfonamide Allergy Unknown UNKNOWN Verified 02/24/21 15:56 Antibiotics) Consultations 02/24/21 17:52 ED Decision to Admit Stat 02/24/21 19:04 Consult Cardiology Routine Ordered Studies 02/24/21 15:23 CT abd pelvis wo con Stat IMPRESSION: 1. Interval development of moderate ascites. Evidence for volume overload with small bilateral pleural effusions, mesenteric edema, body wall edema and scrotal edema. 2. No bowel obstruction. Colonic diverticulosis without evidence for acute diverticulitis. 3. No change in a 6.9 x 5.3 cm abdominal aortic aneurysm. No evidence for rupture. 4. Cholelithiasis. Hospital Course (1) Acute on chronic heart failure with preserved ejection fraction (HFpEF): (2) Anasarca: Overall patient reports he is doing well/ breathing much better. Systolic blood pressure was on the lower side. Continued IV Lasix 40 mg twice daily. Monitor ins and outs along with daily weights. Most recent echo in September with a EF of 65%. Cardiology consulted (Dr. Rowland) - no need for repeat echocardiogram, continue current regimen Root catheter in place for accurate ins and outs. CXR shows small bilateral pleural effusions, proBNP 4200. Exam reveals anasarca with pitting edema extending up to the flank. CT with possible lung infiltrates. Patient denies any cough, WBC is within normal limit. 02/28 -clinically patient much improved, patient is breathing w/o difficulty, at baseline oxygen, lower extremity edema mostly resolved, eager for DC Nonsustained Vtach this AM, pt remained asymptomatic Discussed w/ cardiology, ok to DC on home Bumex 2 mg BID UTI urine cultx + for E. coli - started PO Keflex will try to remove Root prior to DC Pt has urology follow up scheduled for 03/12/2021 (3) Permanent atrial fibrillation: -Rate controlled on metoprolol, continue -Not anticoagulated secondary to chronic anemia, and falls (4) Anemia: -Hgb 10.0, at baseline (5) History of CVA (cerebrovascular accident): -Continue aspirin and statin (6) 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: -Stable per CT ABD/pelvis performed on admission (7) Chronic obstructive pulmonary disease: (8) Chronic respiratory failure with hypoxia: -No signs of acute exacerbation, on chronic 2 L O2 - now on 2L sating 93%, goal O2 sats 88-92% (9) DVT prophylaxis: -SQ heparin (10) Malnutrition: Moderate malnutrition, encourage diet higher in protein Total Time Total Time Spent Total Time Spent (In Minutes): 40 Discharge Plan Discharge Items Patient Disposition: [facility] Reason For Visit: CHF Discharge Diagnosis: Acute on chronic heart failure with preserved ejection fraction Permanent atrial fibrillation Hx of COPD and Chronic respiratory failure with hypoxia UTI Activity: Per Instructions section Non-emergency contact: Primary Care Provider and Lpn Rn Hospice Call non-emergency contact if: you have any medication questions and your symptoms worsen Follow-up/Referrals: Sarah Aguilar CRNP [Nurse Practitioner] - 03/12/21 10:45 am ([facility] [address] [place] [address] ) Jane Greenfield MD [Primary Care Provider] - (Date & Time 03/07/2021 1:40 PM Provider Jane Jasmine MD Department [facility] ) Diet: Heart Healthy and Low Sodium (2gm) Fluids: 1500ml (6 cups) Addtl Attending Provider Instructions: Follow-up with your primary care doctor, the appointment was scheduled for you for March 07. You are also supposed to follow-up with urology, the appointment is scheduled for you for March 12, at 10:45. You should also follow-up with heart failure clinic. Make sure to monitor your weight daily and record these numbers. That way your healthcare providers can adjust your medications properly. You should also continue low-sodium diet and fluid restriction diet. Lastly, finish antibiotic treatment for UTI. Recommend taking probiotics while you are taking antibiotics. Addtl Building Construction Ironworker Provider Instructions: Call your Primary Care doctor if any of the following symptoms or problems start or get worse: * Shortness of breath or difficulty breathing * Wake up at night short of breath * Chest pain * Cough * Swelling of your hands, feet, or legs * More fatigued or tired with your normal activity * Palpitations - sudden fast heart beats WEIGHT * Weigh yourself every morning after using the bathroom. * Use the same scale. * Wear the same amount of clothing. * Write your weight down on a chart. * Call your Primary Care doctor if you gain more than 2-3 pounds in 1-2 days. MEDICATIONS * Use this discharge instruction sheet for medication instructions. * Take your medications at the time your doctor ordered. * Do not skip a dose of your medicines. * If you miss a dose of medicine, take it as soon as possible, but DO NOT DOUBLE A DOSE. * Read your medicine information when you get home. * Know all of the side effects of your medicine. If in doubt, ask your p harmacist * Call your Primary Care doctor's office if you have any side effects. * Be sure all of your doctors know what medicine and herbs you take (including cold, flu, and herbal medicine). Take the following with you to your follow-up doctor appointments: * Weight Chart * Medication List * List of questions Do not drink excessive alcohol, beer or wine. Pending Studies at Discharge: No Stand-Alone Forms: My Learn[employer], Smoking Cessation Skilled Items Patient informed of condition?: Yes DNR: Yes Discharge Level of Care: Other Communicable Disease: No Discharge Prognosis: Stable Lines: None Urinary Catheter: No Medications and DC Order Prescriptions: New cephalexin 500 mg Capsule 500 mg PO BID 4 Days Qty: 8 RF: 0 Advanced Probiotic 625 mg (10 billion cell) Capsule 2 cap PO DAILY 10 Days Qty: 20 RF: 0 Continued methimazole 5 mg tablet 5 mg PO DAILY RF: 0 aspirin 81 mg Tablet,Delayed Release (Dr/Ec) 81 mg PO DAILY Qty: 30 RF: 0 pantoprazole 40 mg Tablet,Delayed Release (Dr/Ec) 40 mg PO BID Qty: 60 RF: 0 atorvastatin 40 mg tablet 40 mg PO HS 30 Days Qty: 30 RF: 0 ferrous sulfate 325 mg (65 mg iron) Tablet 325 mg PO BID 30 Days Qty: 60 RF: 0 docusate sodium [Colace] 100 mg Capsule 100 mg PO BID 30 Days Qty: 60 RF: 0 metoprolol succinate 25 mg tablet extended release 24 hr 25 mg PO DAILY Qty: 25 RF: 0 calcium citrate 200 mg (950 mg) Tablet 200 mg PO BID 30 Days Qty: 60 RF: 0 multivitamin [Daily-Nico] Tablet 1 tab PO DAILY RF: 0 melatonin 10 mg Tablet 10 mg PO HS PRN (Reason: Sleep) RF: 0 Ensure High Protein Liquid 1 ea PO DAILY RF: 0 potassium chloride [Klor-Con M20] 20 mEq Tablet,Er Particles/Crystals 20 meq PO DAILY 30 Days Qty: 30 RF: 3 magnesium oxide 400 mg magnesium Tablet 400 mg PO DAILY RF: 0 bumetanide 2 mg tablet 2 mg PO BID RF: 0 ergocalciferol (vitamin D2) [Vitamin D2] 1,250 mcg (50,000 unit) Capsule 1,250 mcg PO WK RF: 0 acetaminophen [Tylenol Arthritis] 650 mg Tablet Extended Release 1,300 mg PO DAILY PRN (Reason: Pain) RF: 0 Discharge Orders: Discharge Order (Routine); Ordered 02/28/21 Ordered By: Blaine Tracy Admission Data Admit Date/Time: 02/24/21 17:23 Attending Provider: Blaine Tracy Admit Provider: Pooja Clemons Primary Care Provider: Jane Greenfield Other Providers: Pooja Clemons ; Judd Gomez ; Cherie Serrano
== END 2021-02-28 14:37 | disposition home or self-care (01) | DRG 291 ==
LOC: ED 14:51 → 2S 17:23 → SUATTDRO 17:23 → 2S 19:07

== ENCOUNTER 2021-03-07 16:38 | Observation (INO) ==
--- NOTE | 2021-03-07 16:56 | Emergency Department Note ---
Impression & Plan Pneumonia, Anasarca, Acute respiratory acidosis, Anemia ED Provider Note NAME: SAUD ALDRICH AGE: 89 SEX: M : 1930 ARRIVES VIA: Ambulance INFORMANT: Patient, EMS ED PROVIDER(S): Kenroy Tong DO CHIEF COMPLAINT: Chest pain HPI: The patient is an 89-year-old male who presented to the emergency department for an evaluation of chest pain. The patient did receive aspirin prior to arrival. The patient self localizes the pain to the epigastric region. He also notices severe abdominal distention and pain. The patient denies having any vomiting. He denies having any back pain. He was recently started on an antibiotic for skin infection. He denies having any headache or recent trauma. He does complain of a cough as well as shortness of breath. The patient does not have any black or bloody bowel movements. He currently [facility] a [facility] and was sent to the emergency department from the personal prison for further evaluation. ROS: See above HPI for pertinent positives & negatives. A total of 10 systems reviewed and were otherwise negative. PAST MEDICAL HISTORY: See Below PAST SURGICAL HISTORY: See Below FAMILY HISTORY: See Below SOCIAL HISTORY: See Below HOME MEDICATIONS: See Below ALLERGIES: See Below VITALS: See Below PHYSICAL EXAMINATION: GENERAL: The patient is awake and alert. The patient somewhat anxious appearing. EYES: The conjunctivae are clear. The pupils are round and reactive. EARS, NOSE, MOUTH AND THROAT: The nose is without any evidence of any deformity. Mucous membranes are moist. NECK: The neck is nontender and supple. RESPIRATORY: Diminished breath sounds are noted by lateral bases. There is no tachypnea or conversational dyspnea. CARDIOVASCULAR: Irregular heart sounds were noted to auscultation. There is no definite murmur. GASTROINTESTINAL: The abdomen is moderately distended and diffusely tender. There is erythema noted in the lower abdominal wall. MUSCULOSKELETAL/EXTREMITIES: There is no evidence of gross deformity full range of motion is noted in the hips and shoulders. SKIN: Bilateral pedal edema was noted. There was venous stasis changes in both lower extremities. Skin is warm. NEUROLOGIC: Patient is awake alert and oriented x 3. MEDICAL DECISION MAKING: The patient is an 89-year-old male who presented to the emergency department for an evaluation of difficulty breathing and cough. The patient had a productive cough. He was treated with IV fluids and IV antibiotics in the emergency department. He does have a history of CHF. Given the patient's presentation and blood gas he was also started on BiPAP. The patient was not easy to manage. The patient was improved on reevaluation. I discussed his case with the on- call [facility]. They have agreed to evaluate the patient in the emergency department for further management and disposition. Triage Nursing notes reviewed. Prior medical records reviewed Vital Signs: reviewed and remarkable for tachypnea. Differential diagnosis: Cardiac ischemia, aortic dissection, pulmonary embolism, pneumothorax, pneumonia, pericarditis, myocarditis, esophageal rupture, GERD, cholecystitis, pancreatitis, musculoskeletal, as well as other pathologies. ER treatment provided: See below Diagnostics interpreted by me: ECG: EKG was obtained in the emergency department. My interpretation is atrial fibrillation at 84 bpm. Right bundle branch block pattern was noted. Diffuse ST segment abnormalities were noted. This was compared to a tracing from February 252020. No significant changes were noted. Cardiac Monitoring: An order was placed for continuous cardiac monitoring. The monitor shows a rate of 76 bpm with atrial fibrillation rhythm. Laboratory studies: As stated above and show below. Imaging studies: See below Consultation(s): I discussed this case with Dr. Murguia who is on-call for the [facility] group. He will evaluate the patient in the emergency department. ED COURSE: Procedures: none PDMP:reviewed and no issues Critical Care: I have personally spent greater than 45 minutes of critical care time in the direct management of this patient. This includes bedside care, interpretation of diagnostic studies, and testing, discussion with consultants, patient, and family members, and other required patient management activities. This 45 minutes is in excess of all separately billable procedures. Past Med/Surg History Medical History (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 Anemia Chronic kidney disease, stage 3a Chronic obstructive pulmonary disease Chronic respiratory failure with hypoxia Depression GERD (gastroesophageal reflux disease) History of CVA (cerebrovascular accident) HTN (hypertension) Hypertension Hyperthyroidism Kidney stone Lymphoma Multiple rib fractures Paroxysmal ventricular tachycardia Permanent atrial fibrillation Pleural effusion on right Pulmonary hypertension Respiratory failure requiring intubation Severe protein-calorie malnutrition Status post placement of implantable loop recorder Surgical History History of cardiac cath History 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 Family History Unknown Myocardial infarction Social History Smoking Status: Former smoker Tobacco Type: Cigarettes Second Hand Exposure: No; Hx Alcohol Use: No Hx Substance Use: No Preferred Language: [place] Communication Ability: Effective Visual Impairment: Partially Limited Station Inspector Required: No Beliefs That Will Affect Care: None marital status: / Current Living Situation: Personal Care Facility Current Living Situation Comment: caregiver 24 hour How many Children do You have: 6 Feels Safe at Home: Yes Assistive Devices: Oxygen - Continuous and Walker Allergies Allergies Allergy/AdvReac Type Severity Reaction Status Date / Time Iodinated Contrast Media Allergy Severe ANAPHYLAXIS Verified 03/07/21 19:25 Sulfa (Sulfonamide Allergy Unknown UNKNOWN Verified 03/07/21 19:25 Antibiotics) Home Meds Home Medications Medication Instructions Recorded Confirmed methimazole 5 mg tablet 5 mg PO DAILY 11/22/20 03/07/21 food supplemt, lactose-reduced 1 ea PO DAILY 12/26/20 03/07/21 (Ensure High Protein) melatonin 10 mg tablet 10 mg PO HS PRN 12/26/20 03/07/21 multivitamin (Daily-Nico) 1 tab PO DAILY 12/26/20 03/07/21 acetaminophen 650 mg 1,300 mg PO DAILY PRN 02/10/21 03/07/21 tablet,extended release bumetanide 2 mg tablet 2 mg PO BID 02/10/21 03/07/21 ergocalciferol (vitamin D2) 1,250 1,250 mcg PO WK 02/10/21 03/07/21 mcg (50,000 unit) capsule (Vitamin D2) magnesium oxide 400 mg PO DAILY 02/10/21 03/07/21 Previous Rx's Medication Instructions Recorded aspirin 81 mg tablet,delayed 81 mg PO DAILY #30 tab 12/12/20 release atorvastatin 40 mg tablet 40 mg PO HS 30 Days #30 tab 12/12/20 calcium citrate 200 mg (950 mg) 200 mg PO BID 30 Days #60 tab 06/17/21 tablet docusate sodium 100 mg capsule 100 mg PO BID 30 Days #60 cap 12/12/20 (Colace) ferrous sulfate 325 mg (65 mg 325 mg PO BID 30 Days #60 tab 12/12/20 iron) tablet metoprolol succinate 25 mg 25 mg PO DAILY #25 tab 12/12/20 tablet,extended release 24 hr pantoprazole 40 mg tablet,delayed 40 mg PO BID #60 tab 12/12/20 release potassium chloride 20 mEq 20 meq PO DAILY 30 Days #30 tab 12/30/20 tablet,extended release(part/cryst) (Klor-Con M) L.acidop,casei,lactis,rham-B.lact,carmen 2 cap PO DAILY 10 Days #20 cap 02/28/21 625 mg (10 billion cell) capsule (Advanced Probiotic) Results & Data (ED) Vital Signs Vital Signs - 24 hr 03/07/21 16:38 03/07/21 16:59 03/07/21 17:00 Temperature 37.5 C Temperature Source Oral Pulse Rate 83 82 80 Pulse Rate [Ear Lobe] Pulse Rate from SpO2 Sensor 83 77 Pulse Rhythm Irregular Irregular Pulse Strength Normal Respiratory Rate 35 H 33 H 30 H Respiratory Effort / Characteristics Labored Labored Respiratory Pattern Tachypnea Blood Pressure 108/72 108/72 Blood Pressure Mean 84 84 Blood Pressure Position Sitting Pulse Oximetry 90 94 98 Oxygen Delivery Method Oxymask Oxymask Oxymask Oxygen Flow Rate 7 7 7 Fraction of Inspired Oxygen Sepsis Recent Fever Within 48 Hours No Sepsis New/Unexplained Change in Mental Status N/A Sepsis Action Taken by Nursing No Action Required 03/07/21 17:30 03/07/21 18:08 03/07/21 18:15 Temperature Temperature Source Pulse Rate 83 78 88 Pulse Rate [Ear Lobe] Pulse Rate from SpO2 Sensor 79 Pulse Rhythm Pulse Strength Respiratory Rate 28 H 23 33 H Respiratory Effort / Characteristics Respiratory Pattern Blood Pressure 109/74 101/74 103/67 Blood Pressure Mean 85 83 79 Blood Pressure Position Pulse Oximetry 90 96 96 Oxygen Delivery Method Oxymask Oxymask Oxymask Oxygen Flow Rate 7 7 7 Fraction of Inspired Oxygen Sepsis Recent Fever Within 48 Hours Sepsis New/Unexplained Change in Mental Status Sepsis Action Taken by Nursing 03/07/21 18:30 03/07/21 18:45 03/07/21 19:00 Temperature Temperature Source Pulse Rate 75 83 Pulse Rate [Ear Lobe] Pulse Rate from SpO2 Sensor 80 81 Pulse Rhythm Pulse Strength Respiratory Rate 34 H 35 H 30 H Respiratory Effort / Characteristics Accessory Muscle Use Respiratory Pattern Blood Pressure 99/75 L 109/76 Blood Pressure Mean 83 87 Blood Pressure Position Pulse Oximetry 99 100 9 L Oxygen Delivery Method Oxymask Oxymask Oxygen Flow Rate 7 Fraction of Inspired Oxygen Sepsis Recent Fever Within 48 Hours Sepsis New/Unexplained Change in Mental Status Sepsis Action Taken by Nursing 03/07/21 19:01 03/07/21 19:15 03/07/21 19:30 Temperature Temperature Source Pulse Rate 82 83 80 Pulse Rate [Ear Lobe] Pulse Rate from SpO2 Sensor 78 85 Pulse Rhythm Pulse Strength Respiratory Rate 42 H 37 H 32 H Respiratory Effort / Characteristics Respiratory Pattern Blood Pressure 107/69 102/68 106/74 Blood Pressure Mean 81 79 84 Blood Pressure Position Pulse Oximetry 98 99 Oxygen Delivery Method Oxygen Flow Rate Fraction of Inspired Oxygen Sepsis Recent Fever Within 48 Hours Sepsis New/Unexplained Change in Mental Status Sepsis Action Taken by Nursing 03/07/21 19:45 03/07/21 19:54 03/07/21 20:00 Temperature Temperature Source Pulse Rate 79 78 82 Pulse Rate [Ear Lobe] 86 Pulse Rate from SpO2 Sensor Pulse Rhythm Pulse Strength Respiratory Rate 28 H 30 H 30 H Respiratory Effort / Characteristics Spontaneous Respiratory Pattern Blood Pressure 114/66 120/82 Blood Pressure Mean 82 94 Blood Pressure Position Pulse Oximetry 79 L 87 L 78 L Oxygen Delivery Method BiPAP Oxygen Flow Rate Fraction of Inspired Oxygen 45 45 Sepsis Recent Fever Within 48 Hours Sepsis New/Unexplained Change in Mental Status Sepsis Action Taken by Nursing 03/07/21 20:15 03/07/21 20:30 03/07/21 20:43 Temperature Temperature Source Pulse Rate 72 79 Pulse Rate [Ear Lobe] Pulse Rate from SpO2 Sensor 74 83 Pulse Rhythm Pulse Strength Respiratory Rate 22 21 30 H Respiratory Effort / Characteristics Accessory Muscle Use Respiratory Pattern Blood Pressure 111/88 124/89 Blood Pressure Mean 95 100 Blood Pressure Position Pulse Oximetry 99 93 97 Oxygen Delivery Method BiPAP Oxygen Flow Rate Fraction of Inspired Oxygen Sepsis Recent Fever Within 48 Hours Sepsis New/Unexplained Change in Mental Status Sepsis Action Taken by Nursing 03/07/21 20:45 03/07/21 21:00 03/07/21 21:15 Temperature Temperature Source Pulse Rate 85 79 67 Pulse Rate [Ear Lobe] Pulse Rate from SpO2 Sensor 84 83 74 Pulse Rhythm Pulse Strength Respiratory Rate 21 26 H 20 Respiratory Effort / Characteristics Accessory Muscle Use Respiratory Pattern Blood Pressure 114/87 107/80 98/65 L Blood Pressure Mean 96 89 76 Blood Pressure Position Pulse Oximetry 99 91 99 Oxygen Delivery Method BiPAP Oxygen Flow Rate 6 Fraction of Inspired Oxygen Sepsis Recent Fever Within 48 Hours Sepsis New/Unexplained Change in Mental Status Sepsis Action Taken by Nursing 03/07/21 21:30 03/07/21 21:45 03/07/21 21:53 Temperature Temperature Source Pulse Rate 69 76 Pulse Rate [Ear Lobe] Pulse Rate from SpO2 Sensor 77 82 Pulse Rhythm Pulse Strength Respiratory Rate 22 28 H Respiratory Effort / Characteristics Respiratory Pattern Blood Pressure 105/65 105/68 Blood Pressure Mean 78 80 Blood Pressure Position Pulse Oximetry 97 98 Oxygen Delivery Method Oxymask Oxygen Flow Rate 7 Fraction of Inspired Oxygen Sepsis Recent Fever Within 48 Hours Sepsis New/Unexplained Change in Mental Status Sepsis Action Taken by Nursing 03/07/21 22:07 Temperature Temperature Source Pulse Rate Pulse Rate [Ear Lobe] Pulse Rate from SpO2 Sensor Pulse Rhythm Pulse Strength Respiratory Rate 30 H Respiratory Effort / Characteristics Accessory Muscle Use Respiratory Pattern Blood Pressure Blood Pressure Mean Blood Pressure Position Pulse Oximetry 95 Oxygen Delivery Method Oxymask Oxygen Flow Rate 7 Fraction of Inspired Oxygen Sepsis Recent Fever Within 48 Hours Sepsis New/Unexplained Change in Mental Status Sepsis Action Taken by [facility] Medications Current Medication List: was personally reviewed by me Laboratory Data Attestation: I reviewed the patient's lab results. Result diagrams: 03/07/21 16:59 03/07/21 16:59 Lab Results 03/07/21 03/07/21 03/07/21 Range/Units 16:57 16:59 16:59 WBC 7.24 (4.8-10.8) K/uL RBC 3.99 L (4.7-6.1) M/uL Hgb 9.8 L (14.0-18.0) g/dL POC Hgb (14.0-18.0) g/dl Hct 33.8 L (42-52) % POC Hct (42-52) % MCV 84.7 (80-100) fL MCH 24.6 L (25-34) pg MCHC 29.0 L (32-36) g/dL RDW Std Deviation 57.0 H (36.4-46.3) fL RDW Coeff of Jennifer 18.4 H (11.5-14.5) % Plt Count 345 (130-400) K/uL MPV 9.5 (7.4-10.4) fL Immature Gran % (Auto) 0.1 % Neut % (Auto) 67.4 % Lymph % (Auto) 15.2 % [place] % (Auto) 15.3 % Eos % (Auto) 1.7 % Baso % (Auto) 0.3 % Neut # (Auto) 4.88 (1.4-6.5) K/uL Lymph # (Auto) 1.10 L (1.2-3.4) K/uL [place] # (Auto) 1.11 H (0.11-0.59) K/uL Eos # (Auto) 0.12 (0-0.5) K/uL Baso # (Auto) 0.02 (0-0.2) K/uL Immature Gran # (Auto) 0.01 (0.00-0.02) K/uL ESR 27 H (0-20) mm/hr PT (9.0-12.0) Seconds INR (0.9-1.1) APTT (21.0-31.0) Seconds PTT Ratio POC pH (7.35-7.45) POC pCO2 (35-46) mmHg POC pO2 (80-95) mmHg POC HCO3 (19-24) iesha/L POC Total CO2 (24-31) mmol/L POC Base Excess (-9-1.8) iesha/L POC ABG O2 Sat (90-95) % VBG pH (7.36-7.41) VBG pCO2 (38-50) mmHg VBG pO2 mmHg VBG HCO3 mmol/L VBG O2 Saturation % VBG Base Excess mEq/L Barometric Pressure mm/Hg POC Sodium (135-144) mmol/L Sodium (136-145) mmol/L POC Potassium (3.3-5.0) mmol/L Potassium (3.5-5.1) mmol/L Chloride (98-107) mmol/L Carbon Dioxide (21-32) mmol/L Anion Gap (3-11) BUN (7-18) mg/dl Creatinine (0.6-1.4) mg/dl Est Cr Clr Drug Dosing Est GFR ( Amer) ml/min Est GFR (Non-Af Amer) ml/min BUN/Creatinine Ratio (10-20) Glucose (70-99) mg/dl Lactate 1.4 (0.4-2.0) mmol/L Calcium (8.5-10.1) mg/dl Magnesium (1.8-2.4) mg/dl Total Bilirubin (0.2-1) mg/dl AST (15-37) U/L ALT (12-78) U/L Alkaline Phosphatase (45-117) U/L Troponin I (0-0.045) ng/ml C-Reactive Protein (0-0.29) mg/dl NT-Pro-B Natriuret Pep (0-1800) pg/ml Total Protein (6.4-8.2) gm/dl Albumin (3.4-5.0) gm/dl Globulin (2.5-4.0) gm/dl Albumin/Globulin Ratio (0.9-2) Procalcitonin (0-0.5) ng/ml Urine Color Urine Appearance (Clear) Urine pH (4.5-7.5) Ur Specific [place] (1.000-1.030) Urine Protein (Negative) Urine Glucose (UA) (Negative) Urine Ketones (Negative) Urine Blood (Negative) Urine Nitrite (Negative) Urine Bilirubin (Negative) Urine Urobilinogen (Negative) Ur Leukocyte Esterase (Negative) Urine WBC (Auto) (0-5) /hpf Urine RBC (Auto) (0-4) /hpf U Hyaline Cast (Auto) (0-5) /lpf U Epithel Cells (Auto) (0-5) /lpf Urine Bacteria (Auto) (Negative) Urine Crystals Calcium Oxalate Crystal (None Prsent) COVID-19 Eval Order SARS-CoV-2 (PCR) (Negative) 03/07/21 03/07/21 03/07/21 Range/Units 16:59 16:59 16:59 WBC (4.8-10.8) K/uL RBC (4.7-6.1) M/uL Hgb (14.0-18.0) g/dL POC Hgb (14.0-18.0) g/dl Hct (42-52) % POC Hct (42-52) % MCV (80-100) fL MCH (25-34) pg MCHC (32-36) g/dL RDW Std Deviation (36.4-46.3) fL RDW Coeff of Jennifer (11.5-14.5) % Plt Count (130-400) K/uL MPV (7.4-10.4) fL Immature Gran % (Auto) % Neut % (Auto) % Lymph % (Auto) % [place] % (Auto) % Eos % (Auto) % Baso % (Auto) % Neut # (Auto) (1.4-6.5) K/uL Lymph # (Auto) (1.2-3.4) K/uL [place] # (Auto) (0.11-0.59) K/uL Eos # (Auto) (0-0.5) K/uL Baso # (Auto) (0-0.2) K/uL Immature Gran # (Auto) (0.00-0.02) K/uL ESR (0-20) mm/hr PT 11.1 (9.0-12.0) Seconds INR 1.1 (0.9-1.1) APTT 25.6 (21.0-31.0) Seconds PTT Ratio 1.0 POC pH (7.35-7.45) POC pCO2 (35-46) mmHg POC pO2 (80-95) mmHg POC HCO3 (19-24) iesha/L POC Total CO2 (24-31) mmol/L POC Base Excess (-9-1.8) iesha/L POC ABG O2 Sat (90-95) % VBG pH (7.36-7.41) VBG pCO2 (38-50) mmHg VBG pO2 mmHg VBG HCO3 mmol/L VBG O2 Saturation % VBG Base Excess mEq/L Barometric Pressure mm/Hg POC Sodium (135-144) mmol/L Sodium 140 (136-145) mmol/L POC Potassium (3.3-5.0) mmol/L Potassium 4.0 (3.5-5.1) mmol/L Chloride 101 (98-107) mmol/L Carbon Dioxide 37 H (21-32) mmol/L Anion Gap 2.0 L (3-11) BUN 19 H (7-18) mg/dl Creatinine 1.22 (0.6-1.4) mg/dl Est Cr Clr Drug Dosing Not Reportable Est GFR ( Amer) 61.0 ml/min Est GFR (Non-Af Amer) 52.6 ml/min BUN/Creatinine Ratio 15.5 (10-20) Glucose 124 H (70-99) mg/dl Lactate (0.4-2.0) mmol/L Calcium 7.8 L (8.5-10.1) mg/dl Magnesium 2.0 (1.8-2.4) mg/dl Total Bilirubin 0.3 (0.2-1) mg/dl AST 26 (15-37) U/L ALT 12 (12-78) U/L Alkaline Phosphatase 126 H (45-117) U/L Troponin I 0.017 (0-0.045) ng/ml C-Reactive Protein 5.55 H (0-0.29) mg/dl NT-Pro-B Natriuret Pep 5568 H (0-1800) pg/ml Total Protein 6.4 (6.4-8.2) gm/dl Albumin 2.4 L (3.4-5.0) gm/dl Globulin 4.0 (2.5-4.0) gm/dl Albumin/Globulin Ratio 0.6 L (0.9-2) Procalcitonin < 0.05 (0-0.5) ng/ml Urine Color Urine Appearance (Clear) Urine pH (4.5-7.5) Ur Specific [place] (1.000-1.030) Urine Protein (Negative) Urine Glucose (UA) (Negative) Urine Ketones (Negative) Urine Blood (Negative) Urine Nitrite (Negative) Urine Bilirubin (Negative) Urine Urobilinogen (Negative) Ur Leukocyte Esterase (Negative) Urine WBC (Auto) (0-5) /hpf Urine RBC (Auto) (0-4) /hpf U Hyaline Cast (Auto) (0-5) /lpf U Epithel Cells (Auto) (0-5) /lpf Urine Bacteria (Auto) (Negative) Urine Crystals Calcium Oxalate Crystal (None Prsent) COVID-19 Eval Order SARS-CoV-2 (PCR) (Negative) 03/07/21 03/07/21 03/07/21 Range/Units 17:05 17:24 17:24 WBC (4.8-10.8) K/uL RBC (4.7-6.1) M/uL Hgb (14.0-18.0) g/dL POC Hgb (14.0-18.0) g/dl Hct (42-52) % POC Hct (42-52) % MCV (80-100) fL MCH (25-34) pg MCHC (32-36) g/dL RDW Std Deviation (36.4-46.3) fL RDW Coeff of Jennifer (11.5-14.5) % Plt Count (130-400) K/uL MPV (7.4-10.4) fL Immature Gran % (Auto) % Neut % (Auto) % Lymph % (Auto) % [place] % (Auto) % Eos % (Auto) % Baso % (Auto) % Neut # (Auto) (1.4-6.5) K/uL Lymph # (Auto) (1.2-3.4) K/uL [place] # (Auto) (0.11-0.59) K/uL Eos # (Auto) (0-0.5) K/uL Baso # (Auto) (0-0.2) K/uL Immature Gran # (Auto) (0.00-0.02) K/uL ESR (0-20) mm/hr PT (9.0-12.0) Seconds INR (0.9-1.1) APTT (21.0-31.0) Seconds PTT Ratio POC pH (7.35-7.45) POC pCO2 (35-46) mmHg POC pO2 (80-95) mmHg POC HCO3 (19-24) iesha/L POC Total CO2 (24-31) mmol/L POC Base Excess (-9-1.8) iesha/L POC ABG O2 Sat (90-95) % VBG pH 7.29 L (7.36-7.41) VBG pCO2 80 H (38-50) mmHg VBG pO2 30 mmHg VBG HCO3 38 mmol/L VBG O2 Saturation < 60.0 % VBG Base Excess 9.2 mEq/L Barometric Pressure 732.7 mm/Hg POC Sodium (135-144) mmol/L Sodium (136-145) mmol/L POC Potassium (3.3-5.0) mmol/L Potassium (3.5-5.1) mmol/L Chloride (98-107) mmol/L Carbon Dioxide (21-32) mmol/L Anion Gap (3-11) BUN (7-18) mg/dl Creatinine (0.6-1.4) mg/dl Est Cr Clr Drug Dosing Est GFR ( Amer) ml/min Est GFR (Non-Af Amer) ml/min BUN/Creatinine Ratio (10-20) Glucose (70-99) mg/dl Lactate (0.4-2.0) mmol/L Calcium (8.5-10.1) mg/dl Magnesium (1.8-2.4) mg/dl Total Bilirubin (0.2-1) mg/dl AST (15-37) U/L ALT (12-78) U/L Alkaline Phosphatase (45-117) U/L Troponin I (0-0.045) ng/ml C-Reactive Protein (0-0.29) mg/dl NT-Pro-B Natriuret Pep (0-1800) pg/ml Total Protein (6.4-8.2) gm/dl Albumin (3.4-5.0) gm/dl Globulin (2.5-4.0) gm/dl Albumin/Globulin Ratio (0.9-2) Procalcitonin (0-0.5) ng/ml Urine Color Yellow Urine Appearance Clear (Clear) Urine pH 5.5 (4.5-7.5) Ur Specific [place] 1.016 (1.000-1.030) Urine Protein Negative (Negative) Urine Glucose (UA) Negative (Negative) Urine Ketones Negative (Negative) Urine Blood Negative (Negative) Urine Nitrite Positive A (Negative) Urine Bilirubin Negative (Negative) Urine Urobilinogen Negative (Negative) Ur Leukocyte Esterase 1+ H (Negative) Urine WBC (Auto) 10-30 H (0-5) /hpf Urine RBC (Auto) 0-4 (0-4) /hpf U Hyaline Cast (Auto) 1-5 (0-5) /lpf U Epithel Cells (Auto) 0-5 (0-5) /lpf Urine Bacteria (Auto) 3+ H (Negative) Urine Crystals Not Reportable Calcium Oxalate Crystal Present A (None Prsent) COVID-19 Eval Order Covid19 at [facility] SARS-CoV-2 (PCR) (Negative) 03/07/21 03/07/21 Range/Units 17:24 21:24 WBC (4.8-10.8) K/uL RBC (4.7-6.1) M/uL Hgb (14.0-18.0) g/dL POC Hgb 10.2 L (14.0-18.0) g/dl Hct (42-52) % POC Hct 30 L (42-52) % MCV (80-100) fL MCH (25-34) pg MCHC (32-36) g/dL RDW Std Deviation (36.4-46.3) fL RDW Coeff of Jennifer (11.5-14.5) % Plt Count (130-400) K/uL MPV (7.4-10.4) fL Immature Gran % (Auto) % Neut % (Auto) % Lymph % (Auto) % [place] % (Auto) % Eos % (Auto) % Baso % (Auto) % Neut # (Auto) (1.4-6.5) K/uL Lymph # (Auto) (1.2-3.4) K/uL [place] # (Auto) (0.11-0.59) K/uL Eos # (Auto) (0-0.5) K/uL Baso # (Auto) (0-0.2) K/uL Immature Gran # (Auto) (0.00-0.02) K/uL ESR (0-20) mm/hr PT (9.0-12.0) Seconds INR (0.9-1.1) APTT (21.0-31.0) Seconds PTT Ratio POC pH 7.42 (7.35-7.45) POC pCO2 60 H (35-46) mmHg POC pO2 87 (80-95) mmHg POC HCO3 39 H (19-24) iesha/L POC Total CO2 > 40 H* (24-31) mmol/L POC Base Excess 14.0 H (-9-1.8) iesha/L POC ABG O2 Sat 96.0 H (90-95) % VBG pH (7.36-7.41) VBG pCO2 (38-50) mmHg VBG pO2 mmHg VBG HCO3 mmol/L VBG O2 Saturation % VBG Base Excess mEq/L Barometric Pressure mm/Hg POC Sodium 141 (135-144) mmol/L Sodium (136-145) mmol/L POC Potassium 4.1 (3.3-5.0) mmol/L Potassium (3.5-5.1) mmol/L Chloride (98-107) mmol/L Carbon Dioxide (21-32) mmol/L Anion Gap (3-11) BUN (7-18) mg/dl Creatinine (0.6-1.4) mg/dl Est Cr Clr Drug Dosing Est GFR ( Amer) ml/min Est GFR (Non-Af Amer) ml/min BUN/Creatinine Ratio (10-20) Glucose (70-99) mg/dl Lactate (0.4-2.0) mmol/L Calcium (8.5-10.1) mg/dl Magnesium (1.8-2.4) mg/dl Total Bilirubin (0.2-1) mg/dl AST (15-37) U/L ALT (12-78) U/L Alkaline Phosphatase (45-117) U/L Troponin I (0-0.045) ng/ml C-Reactive Protein (0-0.29) mg/dl NT-Pro-B Natriuret Pep (0-1800) pg/ml Total Protein (6.4-8.2) gm/dl Albumin (3.4-5.0) gm/dl Globulin (2.5-4.0) gm/dl Albumin/Globulin Ratio (0.9-2) Procalcitonin (0-0.5) ng/ml Urine Color Urine Appearance (Clear) Urine pH (4.5-7.5) Ur Specific [place] (1.000-1.030) Urine Protein (Negative) Urine Glucose (UA) (Negative) Urine Ketones (Negative) Urine Blood (Negative) Urine Nitrite (Negative) Urine Bilirubin (Negative) Urine Urobilinogen (Negative) Ur Leukocyte Esterase (Negative) Urine WBC (Auto) (0-5) /hpf Urine RBC (Auto) (0-4) /hpf U Hyaline Cast (Auto) (0-5) /lpf U Epithel Cells (Auto) (0-5) /lpf Urine Bacteria (Auto) (Negative) Urine Crystals Calcium Oxalate Crystal (None Prsent) COVID-19 Eval Order SARS-CoV-2 (PCR) NEGATIVE (Negative) Administered Medications Miscellaneous Information (Piperacill/Tazobac Consult Active) 1 ea N/A UD PRN PRN Reason: Consult Stop: 04/06/21 17:51 Last Admin: 03/07/21 21:12 Dose: 1 ea Documented by: [id number] Discontinued Medications Albuterol (Albut/Ipratrop 3mg/0.5mg Neb 3 Ml Vial) 3 ml NEB NOW STA Stop: 03/07/21 19:31 Last Admin: 03/07/21 19:53 Dose: 3 ml Documented by: [id number] Furosemide (Furosemide 40 Mg/4 Ml Vial) 40 mg IV NOW STA Stop: 03/07/21 19:32 Last Admin: 03/07/21 19:51 Dose: 40 mg Documented by: [id number] Piperacillin Sod/Tazobactam Sod (Zosyn) 4.5 gm in 120 mls @ 240 mls/hr IV NOW ONE Stop: 03/07/21 18:21 Last Infusion: 03/07/21 21:12 Dose: 0 mls/hr Documented by: [id number] Admin: 03/07/21 20:00 Dose: 240 mls/hr Documented by: [id number] Sodium Chloride (Nss 1000ml) 500 mls @ 999 mls/hr IV .Q31M ONE Stop: 03/07/21 19:25 Last Admin: 03/07/21 20:00 Dose: Not Given Documented by: [id number] Albumin Human (Albumin 25%) 12.5 gm in 50 mls @ 50 mls/hr IV ONE ONE Stop: 03/07/21 20:30 Last Infusion: 03/07/21 21:15 Dose: 0 mls/hr Documented by: [id number] Admin: 03/07/21 19:50 Dose: 50 mls/hr Documented by: [id number] Methylprednisolone (Methylprednisolone 40 Mg/Ml Vial) 40 mg IV NOW STA Stop: 03/07/21 19:45 Last Admin: 03/07/21 20:00 Dose: 40 mg Documented by: [id number] Imaging Data Radiologist's Impression: Abdomen/Pelvis CT 03/07/21 16:47 CT chest diagnostic wo con, CT abd pelvis wo con CT DOSE: 1927.31 mGy.cm HISTORY: Shortness of breath. Generalized abdominal pain. TECHNIQUE: Multiaxial CT images of the chest, abdomen, and pelvis were performed without contrast. A dose lowering technique was utilized adhering to the principles of ALARA. COMPARISON: Abdomen and pelvis CT 02/24/2021. Chest CT 11/26/2020. FINDINGS: Chest CT: No pneumothorax. Small amount of mucoid material within the distal trachea. No suspicious lytic are blastic osseous lesions. There are healing right lateral sixth and seventh rib fractures. Multinodular thyroid goiter is again noted. Mild body wall edema. The there is a moderate hiatus hernia, unchanged. Small bilateral pleural effusions and bilateral lower lobe airspace opacities have slightly improved. The heart remains moderately enlarged. No pericardial effusion. Stable dilatation of the main pulmonary artery consistent with pulmonary arterial hypertension. 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 Normal caliber esophagus. Abdomen/pelvis CT: No pneumoperitoneum. No pneumatosis. Healing left L1 transverse process fracture is again noted. Subtle nodular contour to the liver consistent with cirrhosis. Stable 1.5 cm hypodense lesion within the right hepatic lobe. This likely represents a cyst. There are few small gallstones. No gallbladder wall thickening. The spleen, adrenal glands, and pancreas unremarkable. Stable right-sided nephrolithiasis. There is a stable right renal hypodense lesion which favors a cyst. Moderate right renal atrophy remains unchanged. Moderate ascites is again noted. This is similar to the prior study. The bladder is decompressed by a Root catheter. Moderate right inguinal hernia containing fluid. Small left-sided hydrocele. There is diffuse body wall edema, unchanged. Central mesenteric edema is also unchanged. No retroperitoneal lymphadenopathy. Suboptimal evaluation for bowel pathology due to the lack of intravenous and oral contrast. However, there is no definite bowel wall thickening or obstruction. The appendix appears surgically absent. Colonic diverticulosis. No evidence for acute diverticulitis. No change in the 6.9 x 5.3 cm abdominal aortic aneurysm. IMPRESSION: 1. Slight improvement in the small bilateral pleural effusions and bilateral lower lobe airspace opacities. 2. Moderate cardiomegaly, unchanged. 3. Diffuse body wall edema/anasarca and moderate ascites persists. 4. No change in the 6.9 x 5.3 cm abdominal aortic aneurysm. 5. Cholelithiasis. 6. Right-sided nephrolithiasis. No hydronephrosis. 7. Additional findings as described above. ACT 112: Negative or not required by law. Electronically signed by: Marty Do M.D. 03/07/2021 6:[address] 03/07/21 16:47 CT chest diagnostic wo con, CT abd pelvis wo con CT DOSE: 1927.31 mGy.cm HISTORY: Shortness of breath. Generalized abdominal pain. TECHNIQUE: Multiaxial CT images of the chest, abdomen, and pelvis were performed without contrast. A dose lowering technique was utilized adhering to the principles of ALARA. COMPARISON: Abdomen and pelvis CT 02/24/2021. Chest CT 11/26/2020. FINDINGS: Chest CT: No pneumothorax. Small amount of mucoid material within the distal trachea. No suspicious lytic are blastic osseous lesions. There are healing right lateral sixth and seventh rib fractures. Multinodular thyroid goiter is again noted. Mild body wall edema. The there is a moderate hiatus hernia, unchanged. Small bilateral pleural effusions and bilateral lower lobe airspace opacities have slightly improved. The heart remains moderately enlarged. No pericardial effusion. Stable dilatation of the main pulmonary artery consistent with pulmonary arterial hypertension. 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 Normal caliber esophagus. Abdomen/pelvis CT: No pneumoperitoneum. No pneumatosis. Healing left L1 transverse process fracture is again noted. Subtle nodular contour to the liver consistent with cirrhosis. Stable 1.5 cm hypodense lesion within the right hepatic lobe. This likely represents a cyst. There are few small gallstones. No gallbladder wall thickening. The spleen, adrenal glands, and pancreas unremarkable. Stable right-sided nephrolithiasis. There is a stable right renal hypodense lesion which favors a cyst. Moderate right renal atrophy remains unchanged. Moderate ascites is again noted. This is similar to the prior study. The bladder is decompressed by a Root catheter. Moderate right inguinal hernia containing fluid. Small left-sided hydrocele. There is diffuse body wall edema, unchanged. Central mesenteric edema is also unchanged. No retroperitoneal lymphadenopathy. Suboptimal evaluation for bowel pathology due to the lack of intravenous and oral contrast. However, there is no definite bowel wall thickening or obstruction. The appendix appears surgically absent. Colonic diverticulosis. No evidence for acute diverticulitis. No change in the 6.9 x 5.3 cm abdominal aortic aneurysm. IMPRESSION: 1. Slight improvement in the small bilateral pleural effusions and bilateral lower lobe airspace opacities. 2. Moderate cardiomegaly, unchanged. 3. Diffuse body wall edema/anasarca and moderate ascites persists. 4. No change in the 6.9 x 5.3 cm abdominal aortic aneurysm. 5. Cholelithiasis. 6. Right-sided nephrolithiasis. No hydronephrosis. 7. Additional findings as described above. ACT 112: Negative or not required by law. Electronically signed by: Marty Do M.D. 03/07/2021 6:26 PM Chest X-Ray 03/07/21 16:47 XR chest 1V portable HISTORY: SEPSIS COMPARISON: Chest 02/26/2021. FINDINGS: No pneumothorax. Small bilateral pleural effusions and bibasilar densities have improved. The heart remains mildly enlarged. There is mild central pulmonary vascular congestion without overt edema. This is also slightly improved. IMPRESSION: Slight improvement in the pulmonary vascular congestion and bibasilar densities/effusions. ACT 112: Negative or not required by law. Electronically signed by: Marty Do M.D. 03/07/2021 5:23 PM Discharge Plan Visit Data Chief Complaint: Chest Pain Stated Complaint: CHEST PAIN ED Provider: Kenroy Tong Discharge Problem: Pneumonia, Anasarca, Acute respiratory acidosis, Anemia Patient Disposition: Being Evaluated by Hospitalist Forms Stand Alone Forms: [facility], [facility] Prescriptions Prescriptions: No Action methimazole 5 mg tablet 5 mg PO DAILY RF: 0 aspirin 81 mg Tablet,Delayed Release (Dr/Ec) 81 mg PO DAILY Qty: 30 RF: 0 pantoprazole 40 mg Tablet,Delayed Release (Dr/Ec) 40 mg PO BID Qty: 60 RF: 0 atorvastatin 40 mg tablet 40 mg PO HS 30 Days Qty: 30 RF: 0 ferrous sulfate 325 mg (65 mg iron) Tablet 325 mg PO BID 30 Days Qty: 60 RF: 0 docusate sodium [Colace] 100 mg Capsule 100 mg PO BID 30 Days Qty: 60 RF: 0 metoprolol succinate 25 mg tablet extended release 24 hr 25 mg PO DAILY Qty: 25 RF: 0 calcium citrate 200 mg (950 mg) Tablet 200 mg PO BID 30 Days Qty: 60 RF: 0 multivitamin [Daily-Nico] Tablet 1 tab PO DAILY RF: 0 melatonin 10 mg Tablet 10 mg PO HS PRN (Reason: Sleep) RF: 0 Ensure High Protein Liquid 1 ea PO DAILY RF: 0 potassium chloride [Klor-Con M20] 20 mEq Tablet,Er Particles/Crystals 20 meq PO DAILY 30 Days Qty: 30 RF: 3 magnesium oxide 400 mg magnesium Tablet 400 mg PO DAILY RF: 0 bumetanide 2 mg tablet 2 mg PO BID RF: 0 ergocalciferol (vitamin D2) [Vitamin D2] 1,250 mcg (50,000 unit) Capsule 1,250 mcg PO WK RF: 0 acetaminophen 650 mg Tablet Extended Release 1,300 mg PO DAILY PRN (Reason: Pain) RF: 0 Advanced Probiotic 625 mg (10 billion cell) Capsule 2 cap PO DAILY 10 Days Qty: 20 RF: 0 Referrals Referrals: Jane Greenfield MD [Primary Care Provider] -
[2021-03-07 17:17] LABS: Basophils # (auto) 0.02 K/uL (0-0.2); Basophils % (auto) 0.3 %; Eosinophils # (auto) 0.12 K/uL (0-0.5); Eosinophils % (auto) 1.7 %; Hematocrit (blood only) 33.8 % (42-52); Hemoglobin 9.8 g/dL (14.0-18.0); Immature Granulocytes # (auto) 0.01 K/uL (0.00-0.02); Immature Granulocytes % (auto) 0.1 %; Lymphocytes % (auto) 15.2 %; Mean Corpuscular Hemoglobin 24.6 pg (25-34); Mean Corpuscular Volume 84.7 fL (80-100); Mean Platelet Volume 9.5 fL (7.4-10.4); Monocytes # (auto) 1.11 K/uL (0.11-0.59); Monocytes % (auto) 15.3 %; Neutrophils # (auto) 4.88 K/uL (1.4-6.5); Neutrophils % (auto) 67.4 %; Platelet Count 345 K/uL (130-400); RDW Coefficient of Variation 18.4 % (11.5-14.5); Red Blood Count 3.99 M/uL (4.7-6.1); White Blood Count 7.24 K/uL (4.8-10.8)
--- NOTE | 2021-03-07 17:24 | XRay Report ---
XR chest 1V portable HISTORY: SEPSIS COMPARISON: Chest 02/26/2021. FINDINGS: No pneumothorax. Small bilateral pleural effusions and bibasilar densities have improved. T he heart remains mildly enlarged. There is mild central pulmonary vascular congestion without overt e john. This is also slightly improved. IMPRESSION: Slight improvement in the pulmonary vascular congestion and bibasilar densities/effusions. ACT 112: Negative or not required by law. Electronically signed by: Marty Do M.D. 03/07/2021 5:23 PM
[2021-03-07 17:31] LABS: INR 1.1 (0.9-1.1); Partial Thromboplastin Time 25.6 Seconds (21.0-31.0); Prothrombin Time 11.1 Seconds (9.0-12.0)
[2021-03-07 17:35] LABS: Base Excess VBG 9.2 mEq/L; HCO3 VBG 38 mmol/L; PCO2 VBG 80 mmHg (38-50); PO2 VBG 30 mmHg; pH VBG 7.29 (7.36-7.41)
[2021-03-07 17:36] LABS: Alanine Aminotransferase 12 U/L (12-78); Albumin Level 2.4 gm/dl (3.4-5.0); Aspartate Aminotransferase 26 U/L (15-37); BUN Creatinine Ratio 15.5 (10-20); Blood Urea Nitrogen 19 mg/dl (7-18); C Reactive Protein 5.55 mg/dl (0-0.29); Calcium 7.8 mg/dl (8.5-10.1); Carbon Dioxide 37 mmol/L (21-32); Chloride 101 mmol/L (98-107); Est GFR (Non-African American) 52.6 ml/min; Glucose 124 mg/dl (70-99); Sodium 140 mmol/L (136-145)
[2021-03-07 17:41] LABS: Albumin Globulin Ratio 0.6 (0.9-2); Alkaline Phosphatase 126 U/L (45-117); Bilirubin,Total 0.3 mg/dl (0.2-1); NT Pro B Type Natriuretic Pept 5568 pg/ml (0-1800); Total Protein 6.4 gm/dl (6.4-8.2); Troponin I 0.017 ng/ml (0-0.045)
[2021-03-07 17:46] LABS: Oxygen Saturation VBG < 60.0 %
[2021-03-07] MEDS ORDERED: PIPERACILLIN/TAZOBACTAM 4.5 GM/120 ML BAG IV ONE (17:52)
[2021-03-07] MEDS ORDERED: PIPERACILL/TAZOBAC CONSULT ACTIVE PRN (17:52)
[2021-03-07 17:58] LABS: Appearance Urine Clear (Clear); Bacteria Urine Automated 3+ (Negative); Bilirubin Urine Negative (Negative); Blood Urine Negative (Negative); Color Urine Yellow; Epithelial Cell Urine Auto 0-5 /lpf (0-5); Glucose Urine UA Negative (Negative); Ketones Urine Negative (Negative); Leukocyte Esterase Urine 1+ (Negative); Nitrite Urine Positive (Negative); Protein Urine Negative (Negative); RBC Urine Automated 0-4 /hpf (0-4); Specific Gravity Urine 1.016 (1.000-1.030); Urobilinogen Urine Negative (Negative); pH Urine 5.5 (4.5-7.5)
--- NOTE | 2021-03-07 18:28 | CT Scan Report ---
CT chest diagnostic wo con, CT abd pelvis wo con CT DOSE: 1927.31 mGy.cm HISTORY: Shortness of breath. Generalized abdominal pain. TECHNIQUE: Multiaxial CT images of the chest, abdomen, and pelvis were performed without contrast. A dose lowering technique was utilized adhering to the principles of ALARA. COMPARISON: Abdomen and pelvis CT 02/24/2021. Chest CT 11/26/2020. FINDINGS: Chest CT: No pneumothorax. Small amount of mucoid material within the distal trachea. No suspicious l ytic are blastic osseous lesions. There are healing right lateral sixth and seventh rib fractures. Mu ltinodular thyroid goiter is again noted. Mild body wall edema. The there is a moderate hiatus hernia , unchanged. Small bilateral pleural effusions and bilateral lower lobe airspace opacities have sligh tly improved. The heart remains moderately enlarged. No pericardial effusion. Stable dilatation of th e main pulmonary artery consistent with pulmonary arterial hypertension. Mildly ectatic ascending tho racic aorta measuring up to 4.2 cm in diameter. Normal caliber esophagus. Abdomen/pelvis CT: No pneumoperitoneum. No pneumatosis. Healing left L1 transverse process fracture i s again noted. Subtle nodular contour to the liver consistent with cirrhosis. Stable 1.5 cm hypodense lesion within the right hepatic lobe. This likely represents a cyst. There are few small gallstones. No gallbladder wall thickening. The spleen, adrenal glands, and pancreas unremarkable. Stable right- sided nephrolithiasis. There is a stable right renal hypodense lesion which favors a cyst. Moderate r ight renal atrophy remains unchanged. Moderate ascites is again noted. This is similar to the prior s tudy. The bladder is decompressed by a Root catheter. Moderate right inguinal hernia containing flui d. Small left-sided hydrocele. There is diffuse body wall edema, unchanged. Central mesenteric edema is also unchanged. No retroperitoneal lymphadenopathy. Suboptimal evaluation for bowel pathology due to the lack of intravenous and oral contrast. However, there is no definite bowel wall thickening or obstruction. The appendix appears surgically absent. Colonic diverticulosis. No evidence for acute di verticulitis. No change in the 6.9 x 5.3 cm abdominal aortic aneurysm. IMPRESSION: 1. Slight improvement in the small bilateral pleural effusions and bilateral lower lobe airspace opac ities. 2. Moderate cardiomegaly, unchanged. 3. Diffuse body wall edema/anasarca and moderate ascites persists. 4. No change in the 6.9 x 5.3 cm abdominal aortic aneurysm. 5. Cholelithiasis. 6. Right-sided nephrolithiasis. No hydronephrosis. 7. Additional findings as described above. ACT 112: Negative or not required by law. Electronically signed by: Marty Do M.D. 03/07/2021 6:26 PM
[2021-03-07 18:41] LABS: Calcium Oxalate Crystals Urine Present (None Prsent)
[2021-03-07] MEDS ORDERED: SODIUM CHLORIDE 0.9% 1000ML 500 ML IV ONE (18:55)
[2021-03-07] MEDS ORDERED: ALBUT/IPRATROP 3MG/0.5MG NEB 3 ML VIAL NEB STA (19:30)
[2021-03-07] MEDS ORDERED: methylPREDNISolone 40 MG in SYRINGE 0 ML IV STA (19:31)
[2021-03-07] MEDS ORDERED: FUROSEMIDE 40 MG/4 ML VIAL IV STA (19:31)
[2021-03-07] MEDS ORDERED: ALBUMIN 25% 12.5 GM/50 ML VIAL IV ONE ×2 (19:31→23:31)
--- NOTE | 2021-03-07 20:47 | History & Physical Report ---
Date of Service March 07, 2021 Assessment & Plan (1) Acute and chronic respiratory failure with hypercapnia: Plan: Multifactorial : Decompensated heart failure, recurrent admissions (possible undiagnosed sleep disordered breathing given RV overload/pulmonary hypertension/daytime somnolence as per records ) COPD exacerbation secondary to HCAP rule out aspiration, no overt sepsis for now Respiratory acidosis secondary to above Encephalopathy secondary to above Complicated UTI contributory Leg swelling secondary to CHF rule out DVT HTN, BP on the lower side AF, rate controlled, not on anticoagulation secondary to fall risk as per family hx PVD, hx CVA as per records hyperthyroidism on methimazole hx NHL, in remission as per records chronic anemia, hemoglobin at baseline PCU Continue BiPAP Recheck ABG Lasix w albumin given borderline BP Strict I/Os, daily weights, CHF education, fluid restriction Cardiology consult Re: Recurrent CHF (Family requesting for specialist opinion given appropriateness of hospice recommendation by PCP given recurrent CHF admissions) Steroids, nebs RTC for presumptive COPD exacerbation Zosyn for possible HCAP/aspiration pneumonia/complicated UTI, aspiration precautions, swallow eval LE venous Dopplers rule out DVT Palliative care consultation depending on Cardiology input DVT prophylaxis. Lovenox subcu DNR Patient's daughter requesting updates from providers. Ms. Sarah Jain, contact numbers [phone]. Total critical care time was 55 minutes. Text document was generated using [employer] voice recognition software. It may contain grammatical or spelling errors. Kindly contact undersigned for clarification of any documentation item in question. History of Present Illness Chief Complaint: Worsening respiratory distress, fluid retention as per family Primary Care Provider: Jane Jasmine MD History obtained from patient, family, and records. Limited history from patient secondary to lethargy, respiratory distress. 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 Last confinement was last week. Patient seen by Cardiology. No changes on home diuretic regimen on discharge back to [facility]. Patient also discharged on Keflex course for E. coli UTI. As per daughter, patient still short of breath and with fluid retention following recent confinement. On PCP evaluation at assisted living facility today, patient noted to be coughing and short of breath during visit, falling asleep multiple times during conversation. Coughing with meals/water intake as per daughter if patient not careful. Transient chest pain and epigastric complaints as per EMS account. PCP contemplated increasing home Bumex to 4 mg twice daily and meeting with family in 1 week to discuss possible hospice. Patient brought to the ER for worsening symptoms. BiPAP initiated upon arrival at the ER for respiratory distress. Medical History as above Surgical History : Cataract surgery, cystoscopy/ureteroscopy/lithotripsy, tonsillectomy, bowel surgery Family History : Heart disease Personal/Social history : Non-smoker, no EtOH intake, assisted living facility resident, retired [employer] employee Allergies Allergy/AdvReac Type Severity Reaction Status Date / Time Iodinated Contrast Media Allergy Severe ANAPHYLAXIS Verified 03/07/21 19:25 Sulfa (Sulfonamide Allergy Unknown UNKNOWN Verified 03/07/21 19:25 Antibiotics) Home Medications Medication Instructions Recorded Confirmed Type methimazole 5 mg tablet 5 mg PO DAILY 11/22/20 03/07/21 History aspirin 81 mg tablet,delayed 81 mg PO DAILY #30 tab 12/12/20 03/07/21 Rx release atorvastatin 40 mg tablet 40 mg PO HS 30 Days #30 tab 12/12/20 03/07/21 Rx calcium citrate 200 mg (950 mg) 200 mg PO BID 30 Days #60 tab 12/12/20 03/07/21 Rx tablet docusate sodium 100 mg capsule 100 mg PO BID 30 Days #60 cap 12/12/20 03/07/21 Rx (Colace) ferrous sulfate 325 mg (65 mg 325 mg PO BID 30 Days #60 tab 12/12/20 03/07/21 Rx iron) tablet metoprolol succinate 25 mg 25 mg PO DAILY #25 tab 12/12/20 03/07/21 Rx tablet,extended release 24 hr pantoprazole 40 mg tablet,delayed 40 mg PO BID #60 tab 12/12/20 03/07/21 Rx release food supplemt, lactose-reduced 1 ea PO DAILY 12/26/20 03/07/21 History (Ensure High Protein) melatonin 10 mg tablet 10 mg PO HS PRN 12/26/20 03/07/21 History multivitamin (Daily-Nico) 1 tab PO DAILY 12/26/20 03/07/21 History potassium chloride 20 mEq 20 meq PO DAILY 30 Days #30 tab 12/30/20 03/07/21 Rx tablet,extended release(part/cryst) (Klor-Con M) acetaminophen 650 mg 1,300 mg PO DAILY PRN 02/10/21 03/07/21 History tablet,extended release bumetanide 2 mg tablet 2 mg PO BID 02/10/21 03/07/21 History ergocalciferol (vitamin D2) 1,250 1,250 mcg PO WK 02/10/21 03/07/21 History mcg (50,000 unit) capsule (Vitamin D2) magnesium oxide 400 mg PO DAILY 02/10/21 03/07/21 History L.acidop,casei,lactis,rham-B.lact,carmen 2 cap PO DAILY 10 Days #20 cap 02/28/21 03/07/21 Rx 625 mg (10 billion cell) capsule (Advanced Probiotic) Past Med/Surg History Medical History (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 Anemia Chronic kidney disease, stage 3a Chronic obstructive pulmonary disease Chronic respiratory failure with hypoxia Depression GERD (gastroesophageal reflux disease) History of CVA (cerebrovascular accident) HTN (hypertension) Hypertension Hyperthyroidism Kidney stone Lymphoma Multiple rib fractures Paroxysmal ventricular tachycardia Permanent atrial fibrillation Pleural effusion on right Pulmonary hypertension Respiratory failure requiring intubation Severe protein-calorie malnutrition Status post placement of implantable loop recorder Surgical History History of cardiac cath History 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 Family History Unknown Myocardial infarction Social History Smoking Status: Smoker, status unknown Tobacco Type: Cigarettes Second Hand Exposure: No; Do You Dip or Chew Tobacco: No; Hx Alcohol Use: No Hx Substance Use: No Preferred Language: [place] Communication Ability: Effective Visual Impairment: Partially Limited Commercial Engineer Required: No Beliefs That Will Affect Care: None marital status: / Current Living Situation: Personal Care Facility Current Living Situation Comment: caregiver 24 hour How many Children do You have: 6 Feels Safe at Home: Yes Safety Concerns: Feels Safe At This Time Assistive Devices: Denture - Upper Review of Systems Review of Systems: Could not be reliably obtained Physical Exam Physical Exam: GENERAL: Obtunded, respiratory distress SKIN: Pallor , warm HEENT: Pale palpebral conjunctivae, no ptosis, dry buccal mucosa, BiPAP in place NECK : Supple, no tenderness CHEST : Decreased breath sounds, expiratory wheezes, no tenderness HEART : Irregular, no obvious murmurs ABDOMEN: distention, nontender EXTREMITIES : Bilateral LE swelling, no LE tenderness, no other conspicuous deformities noted NEUROLOGIC : Obtunded, no facial asymmetry, gait and stance not assessed Results & Data Results & Data ([facility]) Vital Signs (Past 12 Hours) Vital Signs Temp Pulse Pulse Resp BP Pulse Ox 03/07/21 20:43 30 H 97 03/07/21 20:30 79 21 124/89 93 03/07/21 20:15 72 22 111/88 99 03/07/21 20:00 82 86 30 H 120/82 78 L 03/07/21 19:54 78 30 H 87 L 03/07/21 19:45 79 28 H 114/66 79 L 03/07/21 19:30 80 32 H 106/74 03/07/21 19:15 83 37 H 102/68 99 03/07/21 19:01 82 42 H 107/69 98 03/07/21 19:00 30 H 9 L 03/07/21 18:45 83 35 H 109/76 100 03/07/21 18:30 75 34 H 99/75 L 99 03/07/21 18:15 88 33 H 103/67 96 03/07/21 18:08 78 23 101/74 96 03/07/21 17:30 83 28 H 109/74 90 03/07/21 17:00 80 30 H 108/72 98 03/07/21 16:59 82 33 H 94 03/07/21 16:38 37.5 C 83 35 H 108/72 90 Laboratory Results Laboratory Results WBC 7.24 K/uL (4.8-10.8) 03/07/21 16:59 RBC 3.99 M/uL (4.7-6.1) L 03/07/21 16:59 Hgb 9.8 g/dL (14.0-18.0) L 03/07/21 16:59 Hct 33.8 % (42-52) L 03/07/21 16:59 MCV 84.7 fL (80-100) 03/07/21 16:59 MCH 24.6 pg (25-34) L 03/07/21 16:59 MCHC 29.0 g/dL (32-36) L 03/07/21 16:59 RDW Std Deviation 57.0 fL (36.4-46.3) H 03/07/21 16:59 RDW Coeff of Jennifer 18.4 % (11.5-14.5) H 03/07/21 16:59 Plt Count 345 K/uL (130-400) 03/07/21 16:59 MPV 9.5 fL (7.4-10.4) 03/07/21 16:59 Immature Gran % (Auto) 0.1 % 03/07/21 16:59 Neut % (Auto) 67.4 % 03/07/21 16:59 Lymph % (Auto) 15.2 % 03/07/21 16:59 [place] % (Auto) 15.3 % 03/07/21 16:59 Eos % (Auto) 1.7 % 03/07/21 16:59 Baso % (Auto) 0.3 % 03/07/21 16:59 Neut # (Auto) 4.88 K/uL (1.4-6.5) 03/07/21 16:59 Lymph # (Auto) 1.10 K/uL (1.2-3.4) L 03/07/21 16:59 [place] # (Auto) 1.11 K/uL (0.11-0.59) H 03/07/21 16:59 Eos # (Auto) 0.12 K/uL (0-0.5) 03/07/21 16:59 Baso # (Auto) 0.02 K/uL (0-0.2) 03/07/21 16:59 Immature Gran # (Auto) 0.01 K/uL (0.00-0.02) 03/07/21 16:59 ESR 27 mm/hr (0-20) H 03/07/21 16:59 PT 11.1 Seconds (9.0-12.0) 03/07/21 16:59 INR 1.1 (0.9-1.1) 03/07/21 16:59 APTT 25.6 Seconds (21.0-31.0) 03/07/21 16:59 PTT Ratio 1.0 03/07/21 16:59 VBG pH 7.29 (7.36-7.41) L 03/07/21 17:05 VBG pCO2 80 mmHg (38-50) H 03/07/21 17:05 VBG pO2 30 mmHg 03/07/21 17:05 VBG HCO3 38 mmol/L 03/07/21 17:05 VBG O2 Saturation < 60.0 % 03/07/21 17:05 VBG Base Excess 9.2 mEq/L 03/07/21 17:05 Barometric Pressure 732.7 mm/Hg 03/07/21 17:05 Sodium 140 mmol/L (136-145) 03/07/21 16:59 Potassium 4.0 mmol/L (3.5-5.1) 03/07/21 16:59 Chloride 101 mmol/L (98-107) 03/07/21 16:59 Carbon Dioxide 37 mmol/L (21-32) H 03/07/21 16:59 Anion Gap 2.0 (3-11) L 03/07/21 16:59 BUN 19 mg/dl (7-18) H 03/07/21 16:59 Creatinine 1.22 mg/dl (0.6-1.4) 03/07/21 16:59 Est Cr Clr Drug Dosing Not Reportable 03/07/21 16:59 Est GFR ( Amer) 61.0 ml/min 03/07/21 16:59 Est GFR (Non-Af Amer) 52.6 ml/min 03/07/21 16:59 BUN/Creatinine Ratio 15.5 (10-20) 03/07/21 16:59 Glucose 124 mg/dl (70-99) H 03/07/21 16:59 Lactate 1.4 mmol/L (0.4-2.0) 03/07/21 16:57 Calcium 7.8 mg/dl (8.5-10.1) L 03/07/21 16:59 Magnesium 2.0 mg/dl (1.8-2.4) 03/07/21 16:59 Total Bilirubin 0.3 mg/dl (0.2-1) 03/07/21 16:59 AST 26 U/L (15-37) 03/07/21 16:59 ALT 12 U/L (12-78) 03/07/21 16:59 Alkaline Phosphatase 126 U/L (45-117) H 03/07/21 16:59 Troponin I 0.017 ng/ml (0-0.045) 03/07/21 16:59 C-Reactive Protein 5.55 mg/dl (0-0.29) H 03/07/21 16:59 NT-Pro-B Natriuret Pep 5568 pg/ml (0-1800) H 03/07/21 16:59 Total Protein 6.4 gm/dl (6.4-8.2) 03/07/21 16:59 Albumin 2.4 gm/dl (3.4-5.0) L 03/07/21 16:59 Globulin 4.0 gm/dl (2.5-4.0) 03/07/21 16:59 Albumin/Globulin Ratio 0.6 (0.9-2) L 03/07/21 16:59 Procalcitonin < 0.05 ng/ml (0-0.5) 03/07/21 16:59 Urine Color Yellow 03/07/21 17:24 Urine Appearance Clear (Clear) 03/07/21 17:24 Urine pH 5.5 (4.5-7.5) 03/07/21 17:24 Ur Specific Peck 1.016 (1.000-1.030) 03/07/21 17:24 Urine Protein Negative (Negative) 03/07/21 17:24 Urine Glucose (UA) Negative (Negative) 03/07/21 17:24 Urine Ketones Negative (Negative) 03/07/21 17:24 Urine Blood Negative (Negative) 03/07/21 17:24 Urine Nitrite Positive (Negative) A 03/07/21 17:24 Urine Bilirubin Negative (Negative) 03/07/21 17:24 Urine Urobilinogen Negative (Negative) 03/07/21 17:24 Ur Leukocyte Esterase 1+ (Negative) H 03/07/21 17:24 Urine WBC (Auto) 10-30 /hpf (0-5) H 03/07/21 17:24 Urine RBC (Auto) 0-4 /hpf (0-4) 03/07/21 17:24 U Hyaline Cast (Auto) 1-5 /lpf (0-5) 03/07/21 17:24 U Epithel Cells (Auto) 0-5 /lpf (0-5) 03/07/21 17:24 Urine Bacteria (Auto) 3+ (Negative) H 03/07/21 17:24 Urine Crystals Not Reportable 03/07/21 17:24 Calcium Oxalate Crystal Present (None Prsent) A 03/07/21 17:24 COVID-19 Eval Order Covid19 at [facility] 03/07/21 17:24 SARS-CoV-2 (PCR) NEGATIVE (Negative) 03/07/21 17:24 Impressions Abdomen/Pelvis CT 03/07/21 16:47 CT chest diagnostic wo con, CT abd pelvis wo con CT DOSE: 1927.31 mGy.cm HISTORY: Shortness of breath. Generalized abdominal pain. TECHNIQUE: Multiaxial CT images of the chest, abdomen, and pelvis were performed without contrast. A dose lowering technique was utilized adhering to the robert nciples of [place]QUIL[place]. COMPARISON: Abdomen and pelvis CT 02/24/2021. Chest CT 11/26/2020. FINDINGS: Chest CT: No pneumothorax. Small amount of mucoid material within the distal trachea. No suspicious lytic are blastic osseous lesions. There are healing right lateral sixth and seventh rib fractures. Multinodular thyroid goiter is again noted. Mild body wall edema. The there is a moderate hiatus hernia, unchanged. Small bilateral pleural effusions and bilateral lower lobe airspace opacities have slightly improved. The heart remains moderately enlarged. No pericardial effusion. Stable dilatation of the main pulmonary artery consistent with pulmonary arterial hypertension. 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 Normal caliber esophagus. Abdomen/pelvis CT: No pneumoperitoneum. No pneumatosis. Healing left L1 transverse process fracture is again noted. Subtle nodular contour to the liver consistent with cirrhosis. Stable 1.5 cm hypodense lesion within the right hepatic lobe. This likely represents a cyst. There are few small gallstones. No gallbladder wall thickening. The spleen, adrenal glands, and pancreas unremarkable. Stable right-sided nephrolithiasis. There is a stable right renal hypodense lesion which favors a cyst. Moderate right renal atrophy remains unchanged. Moderate ascites is again noted. This is similar to the prior study. The bladder is decompressed by a Root catheter. Moderate right inguinal hernia containing fluid. Small left-sided hydrocele. There is diffuse body wall edema, unchanged. Central mesenteric edema is also unchanged. No retroperitoneal lymphadenopathy. Suboptimal evaluation for bowel pathology due to the lack of intravenous and oral contrast. However, there is no definite bowel wall thickening or obstruction. The appendix appears surgically absent. Colonic diverticulosis. No evidence for acute diverticulitis. No change in the 6.9 x 5.3 cm abdominal aortic aneurysm. IMPRESSION: 1. Slight improvement in the small bilateral pleural effusions and bilateral lower lobe airspace opacities. 2. Moderate cardiomegaly, unchanged. 3. Diffuse body wall edema/anasarca and moderate ascites persists. 4. No change in the 6.9 x 5.3 cm abdominal aortic aneurysm. 5. Cholelithiasis. 6. Right-sided nephrolithiasis. No hydronephrosis. 7. Additional findings as described above. ACT 112: Negative or not required by law. Electronically signed by: Marty Do M.D. 03/07/2021 6:[address] 03/07/21 16:47 CT chest diagnostic wo con, CT abd pelvis wo con CT DOSE: 1927.31 mGy.cm HISTORY: Shortness of breath. Generalized abdominal pain. TECHNIQUE: Multiaxial CT images of the chest, abdomen, and pelvis were performed without contrast. A dose lowering technique was utilized adhering to the principles of ALARA. COMPARISON: Abdomen and pelvis CT 02/24/2021. Chest CT 11/26/2020. FINDINGS: Chest CT: No pneumothorax. Small amount of mucoid material within the distal trachea. No suspicious lytic are blastic osseous lesions. There are healing right lateral sixth and seventh rib fractures. Multinodular thyroid goiter is again noted. Mild body wall edema. The there is a moderate hiatus hernia, unchanged. Small bilateral pleural effusions and bilateral lower lobe airspace opacities have slightly improved. The heart remains moderately enlarged. No pericardial effusion. Stable dilatation of the main pulmonary artery consistent with pulmonary arterial hypertension. 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 Normal caliber esophagus. Abdomen/pelvis CT: No pneumoperitoneum. No pneumatosis. Healing left L1 transverse process fracture is again noted. Subtle nodular contour to the liver consistent with cirrhosis. Stable 1.5 cm hypodense lesion within the right hepatic lobe. This likely represents a cyst. There are few small gallstones. No gallbladder wall thickening. The spleen, adrenal glands, and pancreas unrema rkable. Stable right-sided nephrolithiasis. There is a stable right renal hypodense lesion which favors a cyst. Moderate right renal atrophy remains unchanged. Moderate ascites is again noted. This is similar to the prior study. The bladder is decompressed by a Root catheter. Moderate right inguinal hernia containing fluid. Small left-sided hydrocele. There is diffuse body wall edema, unchanged. Central mesenteric edema is also unchanged. No retroperitoneal lymphadenopathy. Suboptimal evaluation for bowel pathology due to the lack of intravenous and oral contrast. However, there is no definite bowel wall thickening or obstruction. The appendix appears surgically absent. Colonic diverticulosis. No evidence for acute diverticulitis. No change in the 6.9 x 5.3 cm abdominal aortic aneurysm. IMPRESSION: 1. Slight improvement in the small bilateral pleural effusions and bilateral lower lobe airspace opacities. 2. Moderate cardiomegaly, unchanged. 3. Diffuse body wall edema/anasarca and moderate ascites persists. 4. No change in the 6.9 x 5.3 cm abdominal aortic aneurysm. 5. Cholelithiasis. 6. Right-sided nephrolithiasis. No hydronephrosis. 7. Additional findings as described above. ACT 112: Negative or not required by law. Electronically signed by: Marty Do M.D. 03/07/2021 6:26 PM Chest X-Ray 03/07/21 16:47 XR chest 1V portable HISTORY: SEPSIS COMPARISON: Chest 02/26/2021. FINDINGS: No pneumothorax. Small bilateral pleural effusions and bibasilar densities have improved. The heart remains mildly enlarged. There is mild central pulmonary vascular congestion without overt edema. This is also slightly improved. IMPRESSION: Slight improvement in the pulmonary vascular congestion and bibasilar densities/effusions. ACT 112: Negative or not required by law. Electronically signed by: Marty Do M.D. 03/07/2021 5:23 PM Diagnostic Findings EKG as per my interpretation : Rate 85, A. fib, RAD, RBBB, T wave flattening inferior leads
[2021-03-07 21:40] LABS: iSTAT Arterial Blood Gas HCO3 39 meg/L (19-24); iSTAT Arterial Blood Gas pCO2 60 mmHg (35-46); iSTAT Arterial Blood Gas pH 7.42 (7.35-7.45); iSTAT Arterial Blood Gas pO2 87 mmHg (80-95); iSTAT Carbon Dioxide > 40 mmol/L (24-31); iSTAT Hematocrit 30 % (42-52); iSTAT Hemoglobin 10.2 g/dl (14.0-18.0); iSTAT Potassium 4.1 mmol/L (3.3-5.0); iSTAT Sodium 141 mmol/L (135-144)
[2021-03-07] MEDS ORDERED: FUROSEMIDE 40 MG/4 ML VIAL IV SCH (23:10)
[2021-03-07] MEDS ORDERED: ACETAMINOPHEN 325 MG TAB PO PRN (23:10)
[2021-03-07] MEDS ORDERED: PROMETHAZINE HCL 12.5 MG in SODIUM CHLORIDE 0.9% 50 ML IV PRN (23:10)
[2021-03-07] MEDS ORDERED: MELATONIN 3 MG TAB PO PRN (23:46)
[2021-03-08] MEDS: PIPERACILLIN/TAZOBACTAM 3.375 GM in DEXTROSE 5% 100 ML IV SCH ×3 (00:21→16:01)
[2021-03-08] MEDS: POTASSIUM CHLORIDE CRTAB 20 MEQ TABCR PO SCH ×2 (00:24→08:18)
[2021-03-08] MEDS: PANTOprazole 40 MG TAB PO SCH ×3 (00:25→20:39)
[2021-03-08] MEDS: FERROUS SULFATE 325 MG TAB PO SCH ×2 (00:27→08:18)
[2021-03-08] MEDS: DOCUSATE SODIUM 100 MG CAP PO SCH ×3 (00:28→20:39)
[2021-03-08] MEDS: ATORVASTATIN 40 MG TAB PO SCH ×2 (00:28→20:40)
[2021-03-08] MEDS ORDERED: XOPENEX/ATROVENT 1.25mg/0.5MG NEB COMBO NEB SCH (01:00)
[2021-03-08] MEDS: IPRATROPIUM BROMIDE NEB SOLN 0.02% 2.5 ML VIAL INH SCH ×2 (01:06→07:34)
[2021-03-08] MEDS: LEVALBUTEROL 1.25MG/0.5ML NEB INH SCH ×2 (01:06→07:34)
[2021-03-08] MEDS ORDERED: ALBUT/IPRATROP 3MG/0.5MG NEB 3 ML VIAL NEB STA (04:05)
[2021-03-08] MEDS ORDERED: FUROSEMIDE 40 MG/4 ML VIAL IV SCH ×2 (04:05→09:00)
[2021-03-08] MEDS ORDERED: ALBUMIN 25% 12.5 GM/50 ML VIAL IV SCH ×2 (04:05→09:00)
[2021-03-08] MEDS ORDERED: methylPREDNISolone 40 MG in SYRINGE 0 ML IV STA (04:08)
[2021-03-08] MEDS: PHENAZOPYRIDINE HCL 100 MG TAB PO PRN ×2 (05:35→13:11)
[2021-03-08 06:38] LABS: BUN Creatinine Ratio 16.6 (10-20); Calcium 7.8 mg/dl (8.5-10.1); Est GFR (African American) 62.8 ml/min; Est GFR (Non-African American) 54.2 ml/min; Potassium 4.4 mmol/L (3.5-5.1)
[2021-03-08 06:41] LABS: Hematocrit (blood only) 32.1 % (42-52); Hemoglobin 9.2 g/dL (14.0-18.0); Immature Granulocytes # (auto) 0.01 K/uL (0.00-0.02); Immature Granulocytes % (auto) 0.2 %; Lymphocytes # (auto) 1.13 K/uL (1.2-3.4); Lymphocytes % (auto) 17.1 %; Mean Corpuscular Hemoglobin 23.8 pg (25-34); Mean Corpuscular Hgb Conc 28.7 g/dL (32-36); Mean Corpuscular Volume 82.9 fL (80-100); Mean Platelet Volume 9.6 fL (7.4-10.4); Monocytes # (auto) 0.56 K/uL (0.11-0.59); Monocytes % (auto) 8.5 %; Neutrophils # (auto) 4.92 K/uL (1.4-6.5); Neutrophils % (auto) 74.2 %; Platelet Count 334 K/uL (130-400); RDW Coefficient of Variation 18.1 % (11.5-14.5); RDW Standard Deviation 55.2 fL (36.4-46.3); Red Blood Count 3.87 M/uL (4.7-6.1); White Blood Count 6.62 K/uL (4.8-10.8)
[2021-03-08] MEDS: METOPROLOL SUCC 25MG EXT REL TAB PO SCH (08:18)
[2021-03-08] MEDS: methIMAzole 5 MG TABLET PO SCH (08:18)
[2021-03-08] MEDS: MULTIVITAMIN TAB PO SCH (08:18)
[2021-03-08] MEDS: ASPIRIN 81 MG ECTAB PO SCH (08:18)
[2021-03-08] MEDS: ENOXAPARIN INJ 40 MG/0.4 ML SYR SQ SCH (08:19)
--- NOTE | 2021-03-08 08:27 | Ultrasound Report ---
BILATERAL LOWER EXTREMITY VENOUS DOPPLER HISTORY: Bilateral leg swelling COMPARISON STUDY: None. FINDINGS: There is normal compressibility, flow, and augmentation within the bilateral lower extremit y deep venous systems. IMPRESSION: No DVT within the right or left lower extremity. ACT 112: Negative or not required by law. Electronically signed by: Marty Do M.D. 03/08/2021 8:26 AM
[2021-03-08] MEDS ORDERED: predniSONE 20 MG TAB PO SCH (09:00)
--- NOTE | 2021-03-08 10:37 | Electrocardiogram Report ---
Test Reason : Blood Pressure : / mmHG Vent. Rate : 084 BPM Atrial Rate : 192 BPM P-R Int : 000 ms QRS Dur : 168 ms QT Int : 432 ms P-R-T Axes : 000 107 -02 degrees QTc Int : 510 ms Atrial fibrillation Right bundle branch block T wave abnormality, consider lateral ischemia Abnormal ECG When compared with ECG of 25-FEB-2021 06:01, Criteria for Septal infarct are no longer Present Confirmed by Judd Gomez ([id number]) on 03/08/2021 10:37:29 AM Referred By: REFERRED SELF Confirmed By:Judd Gomez
--- NOTE | 2021-03-08 11:57 | Hospitalist Progress Note ---
Date of Service March 08, 2021 Assessment & Plan (1) Acute and chronic respiratory failure with hypercapnia: Plan: Overall improved overnight and off the BiPAP, still requiring submental oxygen supplementation but close to his baseline. He has chronic hypoxic respiratory failure secondary to COPD at baseline and is on 2 L continuously. Possibly multifactorial etiology including acute on chronic heart failure with preserved ejection fraction, HCAP versus aspiration pneumonia, Bilateral pleural effusions, pulmonary hypertension. Continue diuresis with Lasix changed to Bumex per cardiology recommendations. Patient is on p.o. Bumex at home. Spironolactone 12.5 added. Monitor BMP daily. Continue covering with Zosyn pending blood culture results and clinical improvement. He also has persistent UTI symptoms and a positive urinalysis. Continue Zosyn pending urine culture. Root is in place. He has significant volume overload and is not currently wheezing with improvement with diuretics and BiPAP overnight. Would de-escalate scheduled nebulized bronchodilators to as needed at this point and stop steroids as they will continue to contribute to fluid retention. Fluid restriction and daily weights should be observed and diet changed to a salt restricted high- protein diet in setting of new onset cirrhosis. Of note speech is also seen patient this morning and added a slippery modification to his diet. Overall patient is improved with treatment overnight. There is also no evidence of encephalopathy at this time. (2) Acute on chronic heart failure with preserved ejection fraction (HFpEF): Plan: Continue with Bumex IV, strict ins and outs, daily weights, low-salt diet and spironolactone added per cardiology. Notably there is evidence of cirrhosis on imaging. From last visit INR was slightly elevated, albumin low indicating poor liver function. Decompensated cirrhosis with ascites may be contributing to volume overloaded state and refractory fluid overload. We will continue to optimize diuretic therapy keeping this in mind and may consider consulting gastroenterology if needed. Also, there is no evidence of fever, abdominal pain, or leukocytosis. Zosyn has also been empirically started. For these reasons a paracentesis for diagnostic reasons will not be pursued, however SBP was considered. A therapeutic paracentesis may be considered if patient is resistant to diuretic therapy moving forward. (3) Decompensation of cirrhosis of liver: Plan: Cirrhosis this appears to be a new diagnosis. Continue with diuretic therapy and plan as listed above. SBP considered but less likely. (4) Paroxysmal ventricular tachycardia: Plan: Telemetry reviewed and he was seen to have a very short burst of this. Continue to monitor on telemetry at this time. Patient is asymptomatic. (5) Permanent atrial fibrillation: Plan: Rate controlled on current therapy. He is not on long-term anticoagulation due to elevated fall risk and chronic anemia (6) Chronic kidney disease, stage 3a: Plan: He is at baseline renal function. Continue to monitor on intravenous diuretic therapy. (7) Anemia: Plan: Chronic, stable, no evidence of need for transfusion at this time. No evidence of bleeding at this time. (8) Severe protein-calorie malnutrition: Plan: Likely secondary to multiple comorbidities and significant physical deconditioning. Monitor p.o. intake and promote high-protein diet. 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 Continue to monitor in outpatient setting (10) Physical deconditioning: Plan: Over the lastPT/OT, however, patient reports of bedbound status 2 years after a fall. Resides at a personal longterm. (11) DVT prophylaxis: Plan: Lovenox DNR/DNI Disposition-continue telemetry monitoring and hospitalization until he is closer to his baseline dry weight which is approximately 205 pounds. Pooja Clemons DO [facility] Hospitalist Admission and Anticipated Discharge Date Admission Date: March 07, 2021 Subjective The patient is an 89-year-old man with a history of chronic diastolic CHF, resolved ischemic cardiomyopathy, permanent atrial fibrillation not anticoagulated secondary to chronic anemia, paroxysmal ventricular tachycardia and chronic respiratory failure on 2 L of oxygen secondary to COPD at baseline. He presents from the [facility] with increased weight gain despite being discharged from the hospital approximately 1 week ago. He presents with worsening shortness of breath, chest pain and increased weight gain, and dysuria. He was having the same issues on the last visit, presenting 02/24 including a urinary tract infection which was treated with antibiotics. In the ER he pointed to his epigastric region when self localizing the chest pain. He also reported a productive cough. He was treated in the ER with IV fluids and IV antibiotics. His blood gas revealed hypercarbia and he was placed on BiPAP. The initial blood gas was a venous blood gas. An arterial blood gas was pulled several hours later revealing a normalized pH at 7.42 with a PCO2 of 60. White blood cell count was normal at 7.2. proBNP was 5568. SARS-CoV-2 PCR was negative. Overnight he was given Lasix with albumin, steroids, scheduled bronchodilators for presumptive COPD exacerbation and placed on Zosyn for possible HCAP/aspiration pneumonia versus complicated UTI. A swallow eval was ordered and performed this morning. He was able to wean off BiPAP and is on supplemental oxygen this morning at 97% on 5 L/min. He is not demonstrating any conversational dyspnea and reports an improvement in his breathing overall. He is somewhat of a tangential historian reporting a 5-year history of weight gain from swelling. He reports not eating any salt, and then reports occasions where he does eat it. He does not manage his own medications. He does report sleeping on his side and inability to lay flat and does report periods of waking up choking or short of breath. Exercise tolerance is poor as the patient is reporting to be bedbound for the last 2 years since the fall. He resides in a personal longterm at this time. Review of Systems Review of Systems: At least ten systems were reviewed and negative except as indicated in HPI above. Physical Exam Physical Exam: CONSTITUTIONAL: WNWD, vitals as above, generally NAD EYES: normal conjunctivae, no scleral icterus ENT: external ear and nose normal, MMM NECK: trachea midline RESPIRATORY: clear to auscultation bilaterally, no crackles, rales or wheezes, normal respiratory effort, diminished breath sounds at the lung bases bilaterally. CARDIOVASCULAR: regular rate and rhythm, 3/6 CHARLEEN, no gallops or rubs, no JVD, 3+ peripheral edema all way from legs to abdomen GASTROINTESTINAL: distended, edematous skin, nontender, no guarding, protuberant MUSCULOSKELETAL: generalied weakness, moves all extremities equally, head is normocephalic and atraumatic SKIN: warm and dry NEUROLOGIC: No facial palsy, no dysarthria. CN 2-12 grossly intact, normal cognition, normal speech, no tremor, no gross focal deficit. PSYCHIATRIC: alert cooperative and oriented to person, place and time. Results & Data Results & Data ([facility]) Vital Signs (Past 12 Hours) Vital Signs Temp Pulse Pulse Resp BP Pulse Ox 03/08/21 10:45 80 35 H 97 03/08/21 10:30 79 37 H 98 03/08/21 10:15 69 27 H 97 03/08/21 10:00 87 37 H 95 03/08/21 09:45 106 H 28 H 91 03/08/21 09:30 75 42 H 100 03/08/21 09:15 82 29 H 92 03/08/21 09:00 76 22 94 03/08/21 08:45 90 35 H 84 L 03/08/21 08:33 85 29 H 100 03/08/21 08:00 36.9 C 87 03/08/21 07:36 79 18 98 03/08/21 07:30 90 35 H 102/66 96 03/08/21 06:01 82 29 H 102/63 100 03/08/21 05:30 87 34 H 105/73 99 03/08/21 05:00 83 21 103/70 97 03/08/21 04:31 85 26 H 96/70 L 99 03/08/21 04:00 74 28 H 106/79 94 03/08/21 03:53 36.4 C L 03/08/21 03:30 79 28 H 96/68 L 99 03/08/21 03:01 90 30 H 89/67 L 96 03/08/21 02:30 84 29 H 102/65 96 03/08/21 02:00 78 30 H 99/65 L 99 03/08/21 01:30 76 24 101/71 98 03/08/21 01:06 80 24 98 03/08/21 01:00 80 27 H 109/77 100 03/08/21 00:31 76 24 100/75 100 03/08/21 00:00 83 29 H 100/68 97 Laboratory Results Short CBC 03/07/21 03/08/21 Range/Units 16:59 05:50 WBC 7.24 6.62 (4.8-10.8) K/uL Hgb 9.8 L 9.2 L (14.0-18.0) g/dL Hct 33.8 L 32.1 L (42-52) % Plt Count 345 334 (130-400) K/uL BMP 03/07/21 03/08/21 16:59 05:50 Sodium 140 140 Potassium 4.0 4.4 Chloride 101 101 Carbon Dioxide 37 H 35 H BUN 19 H 20 H Creatinine 1.22 1.19 Glucose 124 H 113 H Calcium 7.8 L 7.8 L Cardiac Enzymes 03/07/21 03/07/21 Range/Units 16:59 22:10 Troponin I 0.017 0.018 (0-0.045) ng/ml Liver Function 03/07/21 Range/Units 16:59 Total Bilirubin 0.3 (0.2-1) mg/dl AST 26 (15-37) U/L ALT 12 (12-78) U/L Alkaline Phosphatase 126 H (45-117) U/L Albumin 2.4 L (3.4-5.0) gm/dl Urine 03/07/21 Range/Units 17:24 Urine Color Yellow Urine Appearance Clear (Clear) Urine pH 5.5 (4.5-7.5) Ur Specific [place] 1.016 (1.000-1.030) Urine Protein Negative (Negative) Urine Glucose (UA) Negative (Negative) Medications Administered Current Inpatient Medications Acetaminophen (Acetaminophen 325 Mg Tab) 650 mg PO Q4H PRN PRN Reason: Pain or Fever Stop: 04/06/21 23:09 Aspirin (Aspirin 81 Mg Ectab) 81 mg PO DAILY DAVID Stop: 04/07/21 08:59 Last Admin: 03/08/21 08:18 Dose: 81 mg Documented by: Atorvastatin Calcium (Atorvastatin 40 Mg Tab) 40 mg PO HS [facility] Stop: 04/06/21 23:09 Last Admin: 03/08/21 00:28 Dose: 40 mg Documented by: Docusate Sodium (Docusate Sodium 100 Mg Cap) 100 mg PO BID [facility] Stop: 04/06/21 23:09 Last Admin: 03/08/21 08:18 Dose: 100 mg Documented by: Enoxaparin Sodium (Enoxaparin Inj 40 Mg/0.4 Ml Syr) 40 mg SQ QAM [facility] Stop: 04/07/21 08:59 Last Admin: 03/08/21 08:19 Dose: 40 mg Documented by: Ferrous Sulfate (Ferrous Sulfate 325 Mg Tab) 325 mg PO BID [facility] Stop: 04/06/21 23:09 Last Admin: 03/08/21 08:18 Dose: 325 mg Documented by: Promethazine HCl 12.5 mg/ (Sodium Chloride) 50.5 mls @ 202 mls/hr IV Q6H PRN PRN Reason: Nausea And Vomiting Stop: 04/06/21 23:09 Piperacillin Sod/Tazobactam (Sod 3.375 gm/ Dextrose) 115 mls @ 28.75 mls/hr IV Q8H [facility]; Protocol Stop: 03/15/21 00:00 Last Admin: 03/08/21 08:22 Dose: 28.7 mls/hr Documented by: Bumetanide 1 mg/ Syringe 4 mls @ 4 mls/min IV BID@0900,1700 [facility] Stop: 04/07/21 16:59 Ipratropium Pringle (Ipratropium Pringle Neb Soln 0.02% 2.5 Ml Vial) 0.5 mg INH Q6R [facility] Stop: 04/07/21 00:59 Last Admin: 03/08/21 07:34 Dose: 0.5 mg Documented by: Levalbuterol HCl (Levalbuterol 1.25mg/0.5ml Neb) 1.25 mg INH Q6R [facility] Stop: 04/07/21 00:59 Last Admin: 03/08/21 07:34 Dose: 1.25 mg Documented by: Melatonin (Melatonin 3 Mg Tab) 9 mg PO HSZ PRN PRN Reason: Sleep Stop: 04/06/21 23:45 Methimazole (Methimazole 5 Mg Tablet) 5 mg PO DAILY [facility] Stop: 04/07/21 08:59 Last Admin: 03/08/21 08:18 Dose: 5 mg Documented by: Metoprolol Succinate (Metoprolol Succ 25mg Ext Rel Tab) 25 mg PO DAILY [facility] Stop: 04/07/21 08:59 Last Admin: 03/08/21 08:18 Dose: 25 mg Documented by: Miscellaneous Information (Piperacill/Tazobac Consult Active) 1 ea N/A UD PRN PRN Reason: Consult Stop: 04/06/21 17:51 Last Admin: 03/07/21 21:12 Dose: 1 ea Documented by: Multivitamins (Multivitamin Tab) 1 tab PO DAILY [facility] Stop: 04/07/21 08:59 Last Admin: 03/08/21 08:18 Dose: 1 tab Documented by: Pantoprazole Sodium (Pantoprazole 40 Mg Tab) 40 mg PO BID [facility] Stop: 04/06/21 23:09 Last Admin: 03/08/21 08:39 Dose: 40 mg Documented by: Phenazopyridine HCl (Phenazopyridine Hcl 100 Mg Tab) 100 mg PO TID PRN PRN Reason: Bladder pain Stop: 04/07/21 04:25 Last Admin: 03/08/21 05:35 Dose: 100 mg Documented by: Prednisone (Prednisone 20 Mg Tab) 40 mg PO DAILY [facility] Stop: 03/12/21 08:59 Spironolactone (Spironolactone 12.5 Mg Tab) 12.5 mg PO DAILY [facility] Stop: 04/07/21 12:29 (1) Anemia Anemia type: unspecified type Qualified Code(s): D64.9 - Anemia, unspecified
--- NOTE | 2021-03-08 11:57 | Cardiology Consultation ---
Date of Consultation March 08, 2021 History of Present Illness Reason for Consultation: Acute on chronic diastolic heart failure Attending Physician: Pooja Celmons DO History of Present Illness This is a patient of Dr. Lee. He notes he has been more short of breath since he left the hospital. He often needs to sleep in a chair as you short of breath sleeping at night his abdomen was getting more distended and his legs were slightly more swollen. Due to his symptoms of increasing dyspnea he came to the hospital. He denies any chest pain or chest pressure. He denies any orthostatic symptoms. He is eating lunch today and feels well doing that. He notes he feels like his brain is clearer today and that he can talk in sentences with less dyspnea. He wears oxygen all the time. The rest of a complete review of systems is negative Allergies Allergy/AdvReac Type Severity Reaction Status Date / Time Iodinated Contrast Media Allergy Severe ANAPHYLAXIS Verified 03/07/21 19:25 Sulfa (Sulfonamide Allergy Unknown UNKNOWN Verified 03/07/21 19:25 Antibiotics) Home Medications Medication Instructions Recorded Confirmed Type methimazole 5 mg tablet 5 mg PO DAILY 11/22/20 03/07/21 History aspirin 81 mg tablet,delayed 81 mg PO DAILY #30 tab 12/12/20 03/07/21 Rx release atorvastatin 40 mg tablet 40 mg PO HS 30 Days #30 tab 12/12/20 03/07/21 Rx calcium citrate 200 mg (950 mg) 200 mg PO BID 30 Days #60 tab 12/12/20 03/07/21 Rx tablet docusate sodium 100 mg capsule 100 mg PO BID 30 Days #60 cap 12/12/20 03/07/21 Rx (Colace) ferrous sulfate 325 mg (65 mg 325 mg PO BID 30 Days #60 tab 12/12/20 03/07/21 Rx iron) tablet metoprolol succinate 25 mg 25 mg PO DAILY #25 tab 12/12/20 03/07/21 Rx tablet,extended release 24 hr pantoprazole 40 mg tablet,delayed 40 mg PO BID #60 tab 12/12/20 03/07/21 Rx release food supplemt, lactose-reduced 1 ea PO DAILY 12/26/20 03/07/21 History (Ensure High Protein) melatonin 10 mg tablet 10 mg PO HS PRN 12/26/20 03/07/21 History multivitamin (Daily-Nico) 1 tab PO DAILY 12/26/20 03/07/21 History potassium chloride 20 mEq 20 meq PO DAILY 30 Days #30 tab 12/30/20 03/07/21 Rx tablet,extended release(part/cryst) (Klor-Con M) acetaminophen 650 mg 1,300 mg PO DAILY PRN 02/10/21 03/07/21 History tablet,extended release bumetanide 2 mg tablet 2 mg PO BID 02/10/21 03/07/21 History ergocalciferol (vitamin D2) 1,250 1,250 mcg PO WK 02/10/21 03/07/21 History mcg (50,000 unit) capsule (Vitamin D2) magnesium oxide 400 mg PO DAILY 02/10/21 03/07/21 History L.acidop,casei,lactis,rham-B.lact,carmen 2 cap PO DAILY 10 Days #20 cap 02/28/21 03/07/21 Rx 625 mg (10 billion cell) capsule (Advanced Probiotic) Patient History Medical History (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 Anemia Chronic kidney disease, stage 3a Chronic obstructive pulmonary disease Chronic respiratory failure with hypoxia Depression GERD (gastroesophageal reflux disease) History of CVA (cerebrovascular accident) HTN (hypertension) Hypertension Hyperthyroidism Kidney stone Lymphoma Multiple rib fractures Paroxysmal ventricular tachycardia Permanent atrial fibrillation Pleural effusion on right Pulmonary hypertension Respiratory failure requiring intubation Severe protein-calorie malnutrition Status post placement of implantable loop recorder Surgical History History of cardiac cath History 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 Family History Unknown Myocardial infarction Social History Smoking Status: Smoker, status unknown Tobacco Type: Cigarettes Second Hand Exposure: No; Do You Dip or Chew Tobacco: No; Hx Alcohol Use: No Hx Substance Use: No Preferred Language: Urdu Communication Ability: Effective Visual Impairment: Partially Limited Link Trainer Operator Required: No Beliefs That Will Affect Care: None marital status: / Current Living Situation: Personal Care Facility Current Living Situation Comment: caregiver 24 hour How many Children do You have: 6 Feels Safe at Home: Yes Safety Concerns: Feels Safe At This Time Assistive Devices: Oxygen - Continuous, Walker and Wheelchair Results & Data ([facility]) Vital Signs (Past 12 Hours) Vital Signs Temp Pulse Pulse Resp BP Pulse Ox 03/08/21 10:45 80 35 H 97 03/08/21 10:30 79 37 H 98 03/08/21 10:15 69 27 H 97 03/08/21 10:00 87 37 H 95 03/08/21 09:45 106 H 28 H 91 03/08/21 09:30 75 42 H 100 03/08/21 09:15 82 29 H 92 03/08/21 09:00 76 22 94 03/08/21 08:45 90 35 H 84 L 03/08/21 08:33 85 29 H 100 03/08/21 08:00 36.9 C 87 03/08/21 07:36 79 18 98 03/08/21 07:30 90 35 H 102/66 96 03/08/21 06:01 82 29 H 102/63 100 03/08/21 05:30 87 34 H 105/73 99 03/08/21 05:00 83 21 103/70 97 03/08/21 04:31 85 26 H 96/70 L 99 03/08/21 04:00 74 28 H 106/79 94 03/08/21 03:53 36.4 C L 03/08/21 03:30 79 28 H 96/68 L 99 03/08/21 03:01 90 30 H 89/67 L 96 03/08/21 02:30 84 29 H 102/65 96 03/08/21 02:00 78 30 H 99/65 L 99 03/08/21 01:30 76 24 101/71 98 03/08/21 01:06 80 24 98 03/08/21 01:00 80 27 H 109/77 100 03/08/21 00:31 76 24 100/75 100 03/08/21 00:00 83 29 H 100/68 97 he is awake alert and oriented x3. He describes feeling better this morning with less shortness of breath. HEENT: 2+ carotid upstrokes Lungs: Diffuse markedly decreased breath sounds no rhonchi or wheezing or rails Heart: Irregular rate and rhythm no appreciable murmurs Abdomen: Firm distended and tympanic positive bowel sounds extremities mild to moderate pitting edema to the mid tibia bilaterally Assessment & Plan (1) Acute on chronic heart failure with preserved ejection fraction (HFpEF): He is on 2 mg of p.o. Bumex at home. I would switch his Lasix over to IV Bumex 1 mg twice daily and see how he diuresis. We can uptitrate his IV Bumex in order to achieve a negative diuresis of about a liter a day. We will need to accept some degree of prerenal azotemia in order to improve his state of anasarca. If you look at the CAT scan of his chest he has significant abdominal wall swelling along with swelling of his abdominal contents and ascites. I would stop his potassium supplementation and add spironolactone 12-1/2 mg daily. Hopefully by suppressing his renin aldosterone system we can improve his diuresis. He was just discharged earlier this month. It sounds like his heart failure symptoms are more progressive and palliative care consultation should be considered. His echocardiogram from September 2020 at [facility] reveals an ejection fraction of 60%. He did not have significant valvular heart disease contributing to his heart failure at that time. (2) Permanent atrial fibrillation: -His rate is well controlled -has not been on long-term anticoagulation due to his elevated fall risk. (3) HTN (hypertension): 4. Echocardiogram at [facility] with an ejection fraction in the range of 60% 09/2020 Past medical and surgical history 1. Chronic diastolic CHF 2. Resolved nonischemic cardiomyopathy 3. Hypertension 4. Mild LVH 5. Permanent atrial fibrillation 6. Paroxysmal ventricular tachycardia 7. Mild aortic insufficiency 8. Moderate mitral regurgitation 9. Peripheral vascular disease 10. AAA -6.5 cm, November 2018, conservative management 11. COPD 12. Hyperthyroidism 13. Cholelithiasis 14. Lymphoma 15. GERD 16. Depression 17. Tubular adenoma 18. Status post ileocecectomy 19. LINQ recorder, May 2018
[2021-03-08] MEDS ORDERED: IPRATROPIUM BROMIDE NEB SOLN 0.02% 2.5 ML VIAL INH PRN (12:29)
[2021-03-08] MEDS ORDERED: LEVALBUTEROL 1.25MG/0.5ML NEB INH PRN (12:29)
[2021-03-08] MEDS ORDERED: MELATONIN 3 MG TAB PO PRN (12:29)
--- NOTE | 2021-03-08 12:31 | Electrocardiogram Report ---
Test Reason : Blood Pressure : / mmHG Vent. Rate : 089 BPM Atrial Rate : 080 BPM P-R Int : 000 ms QRS Dur : 158 ms QT Int : 440 ms P-R-T Axes : 000 104 -22 degrees QTc Int : 535 ms Atrial fibrillation Right bundle branch block T wave abnormality, consider lateral ischemia Abnormal ECG When compared with ECG of 07-MAR-2021 16:45, (unconfirmed) No significant change was found Confirmed by Judd Gomez ([id number]) on 03/08/2021 12:31:23 PM Referred By: REFERRED SELF Confirmed By:Judd Gomez
[2021-03-08] MEDS: SPIRONOLACTONE 12.5 MG TAB PO SCH (13:50)
[2021-03-08] MEDS: BUMETANIDE 1 MG in SYRINGE 0 ML IV SCH (16:02)
[2021-03-09] MEDS: PIPERACILLIN/TAZOBACTAM 3.375 GM in DEXTROSE 5% 100 ML IV SCH ×3 (00:18→17:17)
[2021-03-09 00:56] LABS: Basophils # (auto) 0.01 K/uL (0-0.2); Basophils % (auto) 0.1 %; Eosinophils # (auto) 0.05 K/uL (0-0.5); Eosinophils % (auto) 0.6 %; Hematocrit (blood only) 30.8 % (42-52); Immature Granulocytes # (auto) 0.03 K/uL (0.00-0.02); Immature Granulocytes % (auto) 0.3 %; Lymphocytes # (auto) 1.08 K/uL (1.2-3.4); Mean Corpuscular Hemoglobin 23.6 pg (25-34); Mean Corpuscular Hgb Conc 29.2 g/dL (32-36); Mean Corpuscular Volume 80.8 fL (80-100); Mean Platelet Volume 9.4 fL (7.4-10.4); Monocytes # (auto) 1.32 K/uL (0.11-0.59); Monocytes % (auto) 14.7 %; Neutrophils # (auto) 6.48 K/uL (1.4-6.5); Neutrophils % (auto) 72.3 %; Platelet Count 349 K/uL (130-400); RDW Coefficient of Variation 18.1 % (11.5-14.5); RDW Standard Deviation 53.5 fL (36.4-46.3); Red Blood Count 3.81 M/uL (4.7-6.1); White Blood Count 8.97 K/uL (4.8-10.8)
[2021-03-09 01:14] LABS: Alanine Aminotransferase 11 U/L (12-78); Albumin Level 2.5 gm/dl (3.4-5.0); Aspartate Aminotransferase 17 U/L (15-37); BUN Creatinine Ratio 20.2 (10-20); Blood Urea Nitrogen 26 mg/dl (7-18); Calcium 7.6 mg/dl (8.5-10.1); Carbon Dioxide 35 mmol/L (21-32); Chloride 101 mmol/L (98-107); Creatinine Clr Calc Pharmacy 49.7 ml/min; Est GFR (African American) 58.1 ml/min; Est GFR (Non-African American) 50.1 ml/min; Glucose 115 mg/dl (70-99); Lipase 77 U/L (73-393); Potassium 4.6 mmol/L (3.5-5.1); Sodium 138 mmol/L (136-145)
[2021-03-09] MEDS ORDERED: traMADol HCL 50 MG TABLET PO PRN (01:16)
[2021-03-09 01:17] LABS: Albumin Globulin Ratio 0.7 (0.9-2); Alkaline Phosphatase 92 U/L (45-117); Bilirubin,Total 0.3 mg/dl (0.2-1); Globulin 3.6 gm/dl (2.5-4.0); Total Protein 6.1 gm/dl (6.4-8.2)
[2021-03-09 01:22] LABS: INR 1.2 (0.9-1.1); Prothrombin Time 11.7 Seconds (9.0-12.0)
[2021-03-09] MEDS: PHENAZOPYRIDINE HCL 100 MG TAB PO PRN (01:33)
[2021-03-09] MEDS ORDERED: MoRPHine SULFATE 2 MG/ML CARP IV PRN ×2 (02:46→03:44)
[2021-03-09] MEDS ORDERED: MoRPHine SULFATE 2 MG/ML CARP ONE (02:50)
[2021-03-09] MEDS ORDERED: MoRPHine SULFATE 2 MG/ML CARP IV STA (02:56)
[2021-03-09] MEDS ORDERED: NITROGLYCERIN SL 0.4 MG/TAB TAB SL PRN (02:58)
[2021-03-09] MEDS ORDERED: FAMOTIDINE 20 MG in SYRINGE 3 ML IV STA (04:00)
[2021-03-09 04:59] LABS: Troponin I < 0.015 ng/ml (0-0.045)
[2021-03-09] MEDS: methIMAzole 5 MG TABLET PO SCH (08:57)
--- NOTE | 2021-03-09 08:57 | CT Scan Report ---
ABDOMEN AND PELVIS CT WITHOUT CONTRAST CT DOSE: 1534.69 mGy.cm HISTORY: recurrent abd pain TECHNIQUE: Multiaxial CT images of the abdomen and pelvis were performed without contrast. A dose lo wering technique was utilized adhering to the principles of ALARA. COMPARISON STUDY: Abdomen and pelvis CT 03/07/2021. FINDINGS: No change in the small bilateral pleural effusions and patchy bilateral lower lobe densitie s. This favors atelectasis from the pleural effusions. A pneumonia could also have a similar appearan ce. No pneumoperitoneum. No pneumatosis. No suspicious lytic or blastic osseous lesions. The heart re nguyen enlarged. There is a moderate hiatus hernia, unchanged. There are are a few small gallstones. N o definite gallbladder wall thickening. Healing left L1 transverse process fracture, unchanged. Subtl e nodular contour to the liver consistent with cirrhosis. Stable 1.5 cm cyst within the right hepatic lobe. The adrenal glands unremarkable. No hydronephrosis. Stable probable cyst within the right kidn ey. Normal pancreas. Mesenteric edema, unchanged. Moderate ascites is also unchanged. There is diffus e body wall edema, unchanged. Fluid-filled moderate size right inguinal hernia is again noted. There is a Root catheter decompressing the bladder. Suboptimal evaluation for bowel pathology due to the l ack of intravenous and oral contrast. However, there is no definite bowel wall thickening or obstruct ion. Postoperative changes seen within the proximal colon. Colonic diverticulosis. No evidence for ac [place] diverticulitis. No change in the 6.9 x 5.3 cm abdominal aortic aneurysm. Stable right-sided nephr olithiasis. IMPRESSION: 1. Overall, no significant change compared to the prior study. 2. Cirrhotic liver with diffuse body wall edema/anasarca and moderate ascites persists. 3. Small bilateral pleural effusions and bilateral lateral lower lobe airspace opacities, unchanged. 4. No change in the 6.9 x 5.3 cm abdominal aortic aneurysm at the level the renal arteries. 5. Cholelithiasis. 6. Right-sided nephrolithiasis. No hydronephrosis. 7. Additional findings as described above. ACT 112: Negative or not required by law. Electronically signed by: Marty Do M.D. 03/09/2021 8:56 AM
[2021-03-09] MEDS: SPIRONOLACTONE 12.5 MG TAB PO SCH (08:58)
[2021-03-09] MEDS: MULTIVITAMIN TAB PO SCH (08:58)
[2021-03-09] MEDS: ASPIRIN 81 MG ECTAB PO SCH (08:58)
[2021-03-09] MEDS: METOPROLOL SUCC 25MG EXT REL TAB PO SCH (08:58)
[2021-03-09] MEDS: PANTOprazole 40 MG TAB PO SCH ×2 (08:58→20:50)
[2021-03-09] MEDS: DOCUSATE SODIUM 100 MG CAP PO SCH ×2 (08:58→20:51)
[2021-03-09] MEDS: BUMETANIDE 1 MG in SYRINGE 0 ML IV SCH ×2 (08:59→17:17)
[2021-03-09] MEDS: ENOXAPARIN INJ 40 MG/0.4 ML SYR SQ SCH (08:59)
[2021-03-09] MEDS ORDERED: predniSONE 20 MG TAB PO SCH (09:00)
[2021-03-09] MEDS: PHENAZOPYRIDINE HCL 200 MG TAB PO PRN ×2 (09:39→20:48)
--- NOTE | 2021-03-09 09:59 | Electrocardiogram Report ---
Test Reason : Blood Pressure : / mmHG Vent. Rate : 082 BPM Atrial Rate : 441 BPM P-R Int : 000 ms QRS Dur : 160 ms QT Int : 438 ms P-R-T Axes : 000 148 -22 degrees QTc Int : 511 ms Atrial fibrillation with premature ventricular or aberrantly conducted complexes Right bundle branch block Left posterior fascicular block Abnormal ECG When compared with ECG of 08-MAR-2021 05:57, QRS axis Shifted right Confirmed by Judd Gomez ([id number]) on 03/09/2021 9:59:09 AM Referred By: REFERRED SELF Confirmed By:Judd Gomez
--- NOTE | 2021-03-09 10:26 | Cardiology Progress Note ---
Date of Service March 09, 2021 Assessment & Plan Admission and Anticipated Discharge Date Admission Date: March 07, 2021 Subjective Patient is sleeping comfortably. According to the nursing staff he did not have any significant complaints Results & Data ([facility]) Vital Signs (Past 12 Hours) Vital Signs Temp Pulse Pulse Resp BP BP Pulse Ox 03/09/21 07:53 36.9 C 79 19 110/80 91 03/09/21 05:00 82 22 108/79 97 03/09/21 04:30 81 25 H 116/84 98 03/09/21 04:01 85 24 111/82 95 03/09/21 03:31 76 20 134/104 H 96 03/09/21 03:26 36.5 C 03/09/21 03:00 76 35 H 116/81 97 03/09/21 02:30 82 33 H 121/87 98 03/09/21 02:00 75 28 H 98 03/09/21 01:45 73 27 H 96 03/09/21 01:34 79 25 H 100 03/09/21 01:20 77 28 H 113/79 99 03/09/21 00:31 81 32 H 101/74 95 03/09/21 00:01 75 40 H 114/86 97 03/08/21 23:31 81 33 H 92/64 L 96 03/08/21 23:02 79 36 H 111/78 99 03/08/21 22:57 36.7 C 03/08/21 22:31 75 29 H 94/79 L 94 HEENT: 2+ carotid upstrokes, increased JVP Lungs: Diffuse markedly decreased breath sounds no rhonchi or wheezing or rails Heart: Irregular rate and rhythm no appreciable murmurs Abdomen: Firm distended and tympanic positive bowel sounds extremities mild to moderate pitting edema to the mid tibia bilaterally Assessment & Plan (1) Acute on chronic heart failure with preserved ejection fraction (HFpEF): He is on 2 mg of p.o. Bumex at home. IV Bumex 1 mg twice daily and see how he diuresis. We can uptitrate his IV Bumex in order to achieve a negative diuresis of about a liter a day. We will need to accept some degree of prerenal azotemia in order to improve his state of anasarca. If you look at the CAT scan of his chest he has significant abdominal wall swelling along with swelling of his abdominal contents and ascites. added spironolactone 12-1/2 mg daily. Hopefully by suppressing his renin aldosterone system we can improve his diuresis. He was just discharged earlier this month. It sounds like his heart failure symptoms are more progressive and palliative care consultation should be considered. His echocardiogram from September 2020 at [facility] reveals an ejection fraction of 60%. He did not have significant valvular heart disease contributing to his heart failure at that time. Left watch his potassium. His potassium was discontinued yesterday. His I's and O's if we believe the would suggest he is actually positive not negative if this continues and his renal function is not excessively more prerenal I would increase his Bumex tomorrow. At least based on his labs today he is more prerenal compared to yesterday. Dr. Rowland will return to care for him tomorrow. (2) Permanent atrial fibrillation: -His rate is well controlled -has not been on long-term anticoagulation due to his elevated fall risk. (3) HTN (hypertension): 4. Echocardiogram at [facility] with an ejection fraction in the range of 60% 09/2020 Past medical and surgical history 1. Chronic diastolic CHF 2. Resolved nonischemic cardiomyopathy 3. Hypertension 4. Mild LVH 5. Permanent atrial fibrillation 6. Paroxysmal ventricular tachycardia 7. Mild aortic insufficiency 8. Moderate mitral regurgitation 9. Peripheral vascular disease 10. AAA -6.5 cm, November 2018, conservative management 11. COPD 12. Hyperthyroidism 13. Cholelithiasis 14. Lymphoma 15. GERD 16. Depression 17. Tubular adenoma 18. Status post ileocecectomy 19. LINQ recorder, May 2018
[2021-03-09] MEDS: oxyCODONE HCL IR 5 MG TAB (IMMEDIATE RELEASE) PO PRN (10:47)
--- NOTE | 2021-03-09 13:25 | XRay Report ---
XR chest 1V portable HISTORY: worsening dyspnea COMPARISON: Chest 03/07/2021. FINDINGS: No pneumothorax. No change in the pulmonary vascular congestion, cardiomegaly, small bilate ral pleural effusions, and bibasilar densities. IMPRESSION: 1. No change in the pulmonary vascular congestion and small bilateral pleural effusions. 2. Bibasilar densities persist. This may represent atelectasis or pneumonia. ACT 112: Negative or not required by law. Electronically signed by: Marty oD M.D. 03/09/2021 1:24 PM
--- NOTE | 2021-03-09 20:43 | Hospitalist Progress Note ---
Date of Service March 09, 2021 Assessment & Plan (1) Acute and chronic respiratory failure with hypercapnia: Plan: Overall improved overnight and off the BiPAP, still requiring min oxygen supplementation but close to his baseline. He has chronic hypoxic respiratory failure secondary to COPD at baseline and is on 2 L continuously. Possibly multifactorial etiology including acute on chronic heart failure with preserved ejection fraction, Bilateral pleural effusions, pulmonary hypertension. Pneumonia considered but less likely. Continue diuresis with Bumex per cardiology recommendations. Spironolactone 12.5 added. Monitor BMP daily. Persistent UTI symptoms and a positive urinalysis. De-escalate Zosyn to cefdinir, which will also help with minimizing additional fluid retention. Root is in place and will keep this while he is still uncomfortable. He has significant volume overload despite initial efforts with diuretics, salt and fluid restriction. Plan for paracentesis in am, mostly for therapeutic reasons. (2) Acute on chronic heart failure with preserved ejection fraction (HFpEF): Plan: Continue with Bumex IV, strict ins and outs, daily weights, low-salt diet and sp ironolactone added per cardiology. Notably there is evidence of cirrhosis on imaging. From last visit INR was slightly elevated, albumin low indicating poor liver function. Decompensated cirrhosis with ascites likely the bigger contributing factor to volume overloaded state and refractory fluid overload here. We will continue to optimize diuretic therapy keeping this in mind and may consider consulting gastroenterology if needed. Also, there is no evidence of fever, abdominal pain, or leukocytosis. SBP less likely, however, abx were also started. (3) Decompensation of cirrhosis of liver: Plan: Cirrhosis this appears to be a new diagnosis in last few months. Continue with diuretic therapy and plan as listed above including paracentesis in am. Would ensure appropriate ratio loop diuretic to spironolactone on discharge (5:2) to help keep the fluid off. (4) Paroxysmal ventricular tachycardia: Plan: Continue to monitor on telemetry at this time. Patient is asymptomatic. (5) Permanent atrial fibrillation: Plan: Rate controlled on current therapy. He is not on long-term anticoagulation due to elevated fall risk and chronic anemia (6) Chronic kidney disease, stage 3a: Plan: He is at baseline renal function. Continue to monitor on intravenous diuretic therapy. (7) Anemia: Plan: Chronic, stable, no need for transfusion at this time. No evidence of bleeding at this time. (8) Severe protein-calorie malnutrition: Plan: Likely secondary to multiple comorbidities and significant physical deconditioning. Monitor p.o. intake and promote high-protein diet. 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 Continue to monitor in outpatient setting (10) Physical deconditioning: Plan: Over the lastPT/OT, however, patient reports of bedbound status 2 years after a fall. Resides at a personal intermediate. (11) DVT prophylaxis: Plan: Lovenox DNR/DNI Disposition-continue telemetry monitoring and hospitalization until he is closer to his baseline dry weight which is approximately 205 pounds. I spoke with his daughter at length today specifically about the new diagnosis of cirrhosis and treatment considerations including paracentesis. We also discussed consideration of moving him to hospice status at discharge. A consideration on hospice would be palliative therapeutic paracentesis. This would be predicated on how he does with paracentesis tomorrow. Ultimately will need another couple of days to guide patient and family in the correct direction. In the meantime palliative care will be consulted to help the family with goals of care. Pooja Clemons DO [facility]ist Admission and Anticipated Discharge Date Admission Date: March 07, 2021 Subjective 89-year-old man with worsening dyspnea and weight gain of 15 pounds of the last 2 weeks since discharge. New onset cirrhosis in the last few months. Tense ascites present on exam. Patient reports worsening dyspnea today which appears intermittent. Denies chest pain or abdominal pain. Root in place and he does report some suprapubic tenderness but this appears to be consistent with the tense ascites. He is mentating well and does not exhibit conversational dyspnea. He is easily calmed down and falls asleep. I spoke with the daughter by phone for greater than 30 minutes regarding the plan including a paracentesis in the morning. Review of Systems Review of Systems: At least ten systems were reviewed and negative except as indicated in HPI above. Physical Exam Physical Exam: CONSTITUTIONAL: WNWD, vitals as above, mild distress that is intermittent EYES: normal conjunctivae, no scleral icterus ENT: external ear and nose normal, MMM NECK: trachea midline RESPIRATORY: clear to auscultation bilaterally, no crackles, rales or wheezes, normal respiratory effort, diminished breath sounds at the lung bases bilaterally. CARDIOVASCULAR: regular rate and rhythm, 3/6 CHARLEEN, no gallops or rubs, no JVD, 3+ peripheral edema all way from legs to abdomen GASTROINTESTINAL: distended, edematous skin, nontender, no guarding, protuberant MUSCULOSKELETAL: generalized weakness, moves all extremities equally, head is normocephalic and atraumatic SKIN: warm and dry NEUROLOGIC: No facial palsy, no dysarthria. CN 2-12 grossly intact, normal cognition, normal speech, no tremor, no gross focal deficit. PSYCHIATRIC: alert cooperative and oriented to person, place and time. Results & Data Results & Data ([facility]) Vital Signs (Past 12 Hours) Vital Signs Temp Pulse Resp BP Pulse Ox 03/09/21 19:20 36.9 C 80 29 H 96/66 L 03/09/21 17:17 108/78 03/09/21 15:58 36.5 C 82 29 H 101/71 96 03/09/21 11:22 36.5 C 83 24 114/85 98 Laboratory Results Short CBC 03/09/21 Range/Units 00:50 WBC 8.97 (4.8-10.8) K/uL Hgb 9.0 L (14.0-18.0) g/dL Hct 30.8 L (42-52) % Plt Count 349 (130-400) K/uL BMP 03/09/21 00:50 Sodium 138 Potassium 4.6 Chloride 101 Carbon Dioxide 35 H BUN 26 H Creatinine 1.27 Glucose 115 H Calcium 7.6 L Cardiac Enzymes 03/09/21 Range/Units 00:50 Troponin I < 0.015 (0-0.045) ng/ml Liver Function 03/09/21 Range/Units 00:50 Total Bilirubin 0.3 (0.2-1) mg/dl AST 17 (15-37) U/L ALT 11 L (12-78) U/L Alkaline Phosphatase 92 (45-117) U/L Albumin 2.5 L (3.4-5.0) gm/dl Medications Administered Current Inpatient Medications Acetaminophen (Acetaminophen 325 Mg Tab) 650 mg PO Q4H PRN PRN Reason: Pain or Fever Stop: 04/06/21 23:09 Aspirin (Aspirin 81 Mg Ectab) 81 mg PO DAILY DAVID Stop: 04/07/21 08:59 Last Admin: 03/09/21 08:58 Dose: 81 mg Documented by: Atorvastatin Calcium (Atorvastatin 40 Mg Tab) 40 mg PO HS DAVID Stop: 04/06/21 23:09 Last Admin: 03/09/21 20:51 Dose: 40 mg Documented by: Docusate Sodium (Docusate Sodium 100 Mg Cap) 100 mg PO BID DAVID Stop: 04/06/21 23:09 Last Admin: 03/09/21 20:51 Dose: 100 mg Documented by: Enoxaparin Sodium (Enoxaparin Inj 40 Mg/0.4 Ml Syr) 40 mg SQ QAM DAVID Stop: 04/07/21 08:59 Last Admin: 03/09/21 08:59 Dose: 40 mg Documented by: Ferrous Sulfate (Ferrous Sulfate 325 Mg Tab) 325 mg PO BID [facility] Stop: 04/06/21 23:09 Last Admin: 03/08/21 08:18 Dose: 325 mg Documented by: Piperacillin Sod/Tazobactam (Sod 3.375 gm/ Dextrose) 115 mls @ 28.75 mls/hr IV Q8H [facility]; Protocol Stop: 03/15/21 00:00 Last Infusion: 03/09/21 20:57 Dose: Infused Documented by: Bumetanide 1 mg/ Syringe 4 mls @ 4 mls/min IV BID@0900,1700 [facility] Stop: 04/07/21 16:59 Last Admin: 03/09/21 17:17 Dose: 4 mls/min Documented by: Ipratropium [place] (Ipratropium [place] Neb Soln 0.02% 2.5 Ml Vial) 0.5 mg INH Q6R PRN PRN Reason: SOB/wheezing Stop: 04/07/21 00:59 Levalbuterol HCl (Levalbuterol 1.25mg/0.5ml Neb) 1.25 mg INH Q6R PRN PRN Reason: SOB/wheezing Stop: 04/07/21 00:59 Melatonin (Melatonin 3 Mg Tab) 9 mg PO HS PRN PRN Reason: Insomnia Stop: 04/06/21 23:45 Methimazole (Methimazole 5 Mg Tablet) 5 mg PO DAILY DAVID Stop: 04/07/21 08:59 Last Admin: 03/09/21 08:57 Dose: 5 mg Documented by: Metoprolol Succinate (Metoprolol Succ 25mg Ext Rel Tab) 25 mg PO DAILY DAVDI Stop: 04/07/21 08:59 Last Admin: 03/09/21 08:58 Dose: 25 mg Documented by: Miscellaneous Information (Piperacill/Tazobac Consult Active) 1 ea N/A UD PRN PRN Reason: Consult Stop: 04/06/21 17:51 Last Admin: 03/07/21 21:12 Dose: 1 ea Documented by: Morphine Sulfate (Morphine Sulfate 2 Mg/Ml Carp) 2 mg IV Q6H PRN PRN Reason: Pain Stop: 03/23/21 02:45 Multivitamins (Multivitamin Tab) 1 tab PO DAILY DAVID Stop: 04/07/21 08:59 Last Admin: 03/09/21 08:58 Dose: 1 tab Documented by: Nitroglycerin (Nitroglycerin Sl 0.4 Mg/Tab Tab) 0.4 mg SL PRN PRN PRN Reason: Chest Pain Stop: 04/08/21 02:57 Oxycodone HCl (Oxycodone Hcl Ir 5 Mg Tab (Immediate Release)) 5 mg PO Q4H PRN PRN Reason: Pain Stop: 03/23/21 02:56 Last Admin: 03/09/21 10:47 Dose: 5 mg Documented by: Pantoprazole Sodium (Pantoprazole 40 Mg Tab) 40 mg PO BID DAVID Stop: 04/06/21 23:09 Last Admin: 03/09/21 20:50 Dose: 40 mg Documented by: Phenazopyridine HCl (Phenazopyridine Hcl 200 Mg Tab) 200 mg PO TID PRN PRN Reason: Bladder pain Stop: 04/07/21 04:25 Last Admin: 03/09/21 20:48 Dose: 200 mg Documented by: Spironolactone (Spironolactone 12.5 Mg Tab) 12.5 mg PO DAILY DAVID Stop: 04/07/21 12:29 Last Admin: 03/09/21 08:58 Dose: 12.5 mg Documented by: (1) Anemia Anemia type: unspecified type Qualified Code(s): D64.9 - Anemia, unspecified
[2021-03-09] MEDS: ATORVASTATIN 40 MG TAB PO SCH (20:51)
[2021-03-09] MEDS: CEFDINIR 300 MG CAP PO SCH (22:22)
[2021-03-10] MEDS: oxyCODONE HCL IR 5 MG TAB (IMMEDIATE RELEASE) PO PRN (03:20)
[2021-03-10 04:53] LABS: Hematocrit (blood only) 33.8 % (42-52); Hemoglobin 9.8 g/dL (14.0-18.0); Mean Corpuscular Hemoglobin 23.9 pg (25-34); Mean Corpuscular Volume 82.4 fL (80-100); Mean Platelet Volume 9.2 fL (7.4-10.4); Platelet Count 365 K/uL (130-400); RDW Standard Deviation 54.3 fL (36.4-46.3); White Blood Count 7.84 K/uL (4.8-10.8)
[2021-03-10 05:10] LABS: BUN Creatinine Ratio 19.8 (10-20); Calcium 7.9 mg/dl (8.5-10.1); Creatinine Clr Calc Pharmacy 46.1 ml/min; Est GFR (African American) 53.5 ml/min; Est GFR (Non-African American) 46.1 ml/min; Potassium 4.5 mmol/L (3.5-5.1)
--- NOTE | 2021-03-10 08:44 | Palliative Care Consultation ---
Date of Consultation March 10, 2021 Assessment & Plan (1) Palliative care encounter: This is an 89 year old male who presented to the [facility] with15 pound weight gain, cough and shortness of breath. He has been experiencing multiple falls and has had multiple readmissions over the last month and was evaluated by Palliative Medicine in November 2020. Additional PMH includes: atrial fibrillation, diastolic CHF, prior CVA, frequent falls, known AAA, CKD stage III, and COPD. 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 A Laparoscopic Ileocecectomy was performed on 11/28 and he had a slow recovery. This admission, a new onset of liver cirrhosis and ascites was noted causing him to be increasingly short of breath. Palliative Medicine was consulted to discuss overall goals of care. I went to see the patient who had just left to go down to CT for his US guided paracentesis. I was able to talk with the patient's daughter, Kristi, at [phone]. She indicated that she and her family felt palliative services were 'too soon' during previous admission and admittedly was resistant. That being said, she mentioned that over the last few months she has seen an overall decline in her father's illness and notes that in her opinion he has overall very poor quality of life as he sits in a wheelchair for most of the day. She said that as hard as it is for her to say, she knows he would benefit from hospice. This conversation brought up a lot of emotions from her mother's and she was only on hospice for a few days. He has been at [facility] and she just sees that he has declined. She said that she supports her father if he wants to proceed with hospice at [facility]. She mentioned that she does not want him to at the hospital. I explained that our goal will be for him to return to [facility] with Hospice and if he would decline and not be stable, we would ensure family could visit him at the end of his life. I was able to visit with Matty after his paracentesis in room 111. They removed 5L of fluid during the procedure. When I entered the room, he was talking to his son on the phone. He was having some periods of tachypnea and his B/P is trending downward, now 92/58. In talking with Matty, he was oriented on and off, but was able to tell me that his living will said he would 'not want any of this' and he said ' i want to get out of here to go to my room with a window, just make sure it has a window'. I did call Sarah back to advise that we would move forward with arranging Hospice at [facility]. She was receptive to having Roxanol PRN ordered. Dr. Mills was in the room when I saw Matty and plans to have him remain inpatient for 48 hours post procedure. (2) Dyspnea: Patient with increasing shortness of breath. SpO2 drops intermittently 80-85% when he falls asleep. Pt does not appear anxious when his breathing becomes more labored. After discussion with patients daughter, hospitalist and nursing will have Roxanol 5 mg PO Q8 PRN for air hunger and pain. Pt creatinine is 1.36. (3) Severe protein-calorie malnutrition: (4) Decompensation of cirrhosis of liver: (5) Acute and chronic respiratory failure with hypercapnia: (6) Weakness: History of Present Illness Reason for Consultation: Goals of care Requesting Physician: Dr. Clemons Attending Physician: Cherie Serrano MD History of Present Illness This is an 89 year old male who presented to the [facility] with15 pound weight gain, cough and shortness of breath. He has been experiencing multiple falls and has had multiple readmissions over the last month and was evaluated by Palliative Medicine in November 2020. Additional PMH includes: atrial fibrillation, diastolic CHF, prior CVA, frequent falls, known AAA, CKD stage III, and COPD. 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 A Laparoscopic Ileocecectomy was performed on 11/28 and he had a slow recovery. This admission, a new onset of liver cirrhosis and ascites was noted causing him to be increasingly short of breath. Palliative Medicine was consulted to discuss overall goals of care. Thanks for re-involving palliative medicine with this individual. Allergies Allergy/AdvReac Type Severity Reaction Status Date / Time Iodinated Contrast Media Allergy Severe ANAPHYLAXIS Verified 03/07/21 19:25 Sulfa (Sulfonamide Allergy Unknown UNKNOWN Verified 03/07/21 19:25 Antibiotics) Home Medications Medication Instructions Recorded Confirmed Type methimazole 5 mg tablet 5 mg PO DAILY 11/22/20 03/07/21 History aspirin 81 mg tablet,delayed 81 mg PO DAILY #30 tab 12/12/20 03/07/21 Rx release atorvastatin 40 mg tablet 40 mg PO HS 30 Days #30 tab 12/12/20 03/07/21 Rx calcium citrate 200 mg (950 mg) 200 mg PO BID 30 Days #60 tab 12/12/20 03/07/21 Rx tablet docusate sodium 100 mg capsule 100 mg PO BID 30 Days #60 cap 12/12/20 03/07/21 Rx (Colace) ferrous sulfate 325 mg (65 mg 325 mg PO BID 30 Days #60 tab 12/12/20 03/07/21 Rx iron) tablet metoprolol succinate 25 mg 25 mg PO DAILY #25 tab 12/12/20 03/07/21 Rx tablet,extended release 24 hr pantoprazole 40 mg tablet,delayed 40 mg PO BID #60 tab 12/12/20 03/07/21 Rx release food supplemt, lactose-reduced 1 ea PO DAILY 12/26/20 03/07/21 History (Ensure High Protein) melatonin 10 mg tablet 10 mg PO HS PRN 12/26/20 03/07/21 History multivitamin (Daily-Nico) 1 tab PO DAILY 12/26/20 03/07/21 History potassium chloride 20 mEq 20 meq PO DAILY 30 Days #30 tab 12/30/20 03/07/21 Rx tablet,extended release(part/cryst) (Klor-Con M) acetaminophen 650 mg 1,300 mg PO DAILY PRN 02/10/21 03/07/21 History tablet,extended release bumetanide 2 mg tablet 2 mg PO BID 02/10/21 03/07/21 History ergocalciferol (vitamin D2) 1,250 1,250 mcg PO WK 02/10/21 03/07/21 History mcg (50,000 unit) capsule (Vitamin D2) magnesium oxide 400 mg PO DAILY 02/10/21 03/07/21 History L.acidop,casei,lactis,rham-B.lact,carmen 2 cap PO DAILY 10 Days #20 cap 02/28/21 03/07/21 Rx 625 mg (10 billion cell) capsule (Advanced Probiotic) Patient History Medical History (Updated 03/10/21 @ 11:37 by RADHA Butler) (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 Anemia Chronic kidney disease, stage 3a Chronic obstructive pulmonary disease Chronic respiratory failure with hypoxia Depression Dyspnea GERD (gastroesophageal reflux disease) History of CVA (cerebrovascular accident) HTN (hypertension) Hypertension Hyperthyroidism Kidney stone Lymphoma Multiple rib fractures Palliative care encounter Paroxysmal ventricular tachycardia Permanent atrial fibrillation Pleural effusion on right Pulmonary hypertension Respiratory failure requiring intubation Severe protein-calorie malnutrition Status post placement of implantable loop recorder Weakness Surgical History History of cardiac cath History 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 Family History Unknown Myocardial infarction Social History Smoking Status: Smoker, status unknown Tobacco Type: Cigarettes Second Hand Exposure: No; Do You Dip or Chew Tobacco: No; Hx Alcohol Use: No Hx Substance Use: No Preferred Language: Georgian Communication Ability: Effective Visual Impairment: Partially Limited Produce Runner Required: No Beliefs That Will Affect Care: None marital status: / Current Living Situation: Personal Care Facility Current Living Situation Comment: caregiver 24 hour How many Children do You have: 6 Feels Safe at Home: Yes Safety Concerns: Feels Safe At This Time Assistive Devices: Oxygen - Continuous, Walker and Wheelchair Review of Systems Review of Systems: Mclaughlin System Assessment Scale: Pain: 0/3 SOB: 2/3 Anxiety: 0/3 Tiredness: 1/3 Palliative Performance Scale: 30% Physical Exam Constitutional: + ill appearing, + frail appearing, cooperative and comfortable ENMT: Mouth: + dry oral mucous membranes Respiratory: + respiratory distress, + labored breathing, + cough (thick productive yellow sputum) and + tachypneic Auscultation: + rhonchi Cardiovascular: Rate/Rhythm: regular rate and regular rhythm Heart Sounds: normal S1 and normal S2 Extremities: normal capillary refill Gastrointestinal (Abdomen): Inspection/Auscultation: + abdomen distended and + abdominal edema Skin: + ecchymosis and + pallor Psychiatric: Orientation: alert and oriented x 3 Insight: good insight Judgement: + limited judgement Results & Data ([facility]) Vital Signs (Past 12 Hours) Vital Signs Temp Pulse Resp BP BP Pulse Ox 03/10/21 02:50 36.6 C 90 29 H 100/75 95 03/10/21 01:17 86 30 H 97 03/09/21 23:21 36.6 C 86 29 H 118/82 98 PG Care Time/CCT Total # of Minutes Spent Total Time Spent with Patient: Total time spent is greater than 50% in coordination of care (as documented) at patient's floor/unit and/or counseling patient: 100 minutes with > 50% of that time spent assessing the patie nt,discussing goals of care with the family and patient, addressing symptom management and collaborating with IDT Coding Level of Care Code 48340 Initial Inpt Care Lvl 3 Diagnoses Palliative care encounter Z51.5 Severe protein-calorie malnutrition E43 Decompensation of cirrhosis of liver K72.90; K74.60 Acute and chronic respiratory failure with hypercapnia J96.22 Weakness R53.1 Dyspnea R06.00 Time Spent (min) 100
--- NOTE | 2021-03-10 10:03 | Ultrasound Report ---
ULTRASOUND GUIDED DIAGNOSTIC AND THERAPEUTIC PARACENTESIS CLINICAL HISTORY: Paracentesis. COMPARISON STUDY: CT of the abdomen and pelvis March 09, 2021. PROCEDURE: The risks, benefits, and alternatives to the procedure were discussed with the patient inc luding the risk of bleeding, infection and injury to adjacent structures. The patient agreed to the procedure and informed written consent was obtained. Following real-time ultrasound localization, the skin of the right lower quadrant was prepped and draped. Following local anesthesia with Xylocaine, the sheath paracentesis needle was inserted and approximately 5 liters of straw-colored fluid was rem sallie by vacuum suction. The patient tolerated the procedure well and no immediate complications were evident. IMPRESSION: Ultrasound-guided paracentesis with removal of 5 liters of ascites. 1 L of ascites was s ent to the laboratory for analysis as ordered. ACT 112: Negative or not required by law. Electronically signed by: Yuan Augustine M.D. 03/10/2021 10:02 AM
[2021-03-10 10:44] LABS: Appearance Peritoneal Fluid HAZY; Basophils, Fluid 0 %; Color Peritoneal Fluid YELLOW; Eosinophils, Fluid 0 %; Lymphocytes, Fluid 1 %; Mono,Macrophage,Mesothelial 31 %; Neutrophils, Fluid 68 %; RBC Peritoneal Fluid (A) < 3000 /uL; WBC Peritoneal Fluid (A) 936 /ul (0-300)
[2021-03-10 11:35] LABS: Albumin Peritoneal Fluid 1.5 g/dl; Total Protein Peritoneal Fluid 3.1 g/dl
[2021-03-10] MEDS: CEFDINIR 300 MG CAP PO SCH ×2 (11:48→20:39)
[2021-03-10] MEDS: ASPIRIN 81 MG ECTAB PO SCH (11:48)
[2021-03-10] MEDS: methIMAzole 5 MG TABLET PO SCH (11:49)
[2021-03-10] MEDS: DOCUSATE SODIUM 100 MG CAP PO SCH ×2 (11:49→20:39)
[2021-03-10] MEDS: ENOXAPARIN INJ 40 MG/0.4 ML SYR SQ SCH (11:49)
[2021-03-10] MEDS: PANTOprazole 40 MG TAB PO SCH ×2 (11:50→20:39)
[2021-03-10] MEDS: SPIRONOLACTONE 12.5 MG TAB PO SCH (11:50)
[2021-03-10] MEDS: MULTIVITAMIN TAB PO SCH (11:50)
[2021-03-10] MEDS: ALBUMIN 25% 12.5 GM/50 ML VIAL IV SCH ×4 (11:52→14:24)
[2021-03-10] MEDS: BUMETANIDE 1 MG in SYRINGE 0 ML IV SCH ×2 (11:53→16:13)
[2021-03-10] MEDS: METOPROLOL SUCC 25MG EXT REL TAB PO SCH (12:14)
--- NOTE | 2021-03-10 13:06 | Cardiology Progress Note ---
Date of Service March 10, 2021 Assessment & Plan (1) Acute on chronic heart failure with preserved ejection fraction (HFpEF): Plan: -gained 14 lb since hospital discharge on February 28. -agree with aggressive diuresis with IV Bumex b.i.d.. -receive intravenous albumin today. -hopefully the addition of spironolactone will be beneficial. -prognosis seems poor. -palliative care appropriate. (2) Permanent atrial fibrillation: Plan: -Eliquis currently on hold. -continue metoprolol succinate for rate control. (3) HTN (hypertension): Plan: -adequate control on current regimen. Admission and Anticipated Discharge Date Admission Date: March 07, 2021 Subjective The patient is resting comfortably in bed without complaints of chest pain or dyspnea. Physical Exam Physical Exam: In general this is a well-developed well-nourished elderly white male in no acute distress. HEENT exam is negative. Neck is supple with full carotid upstrokes. No carotid bruits. Jugular venous pressure is difficult to assess. There is no thyromegaly. Cardiovascular exam reveals an irregular rhythm with distant heart sounds. No obvious murmurs. No S3. Lungs are clear anteriorly. Abdomen is soft without bruits. Extremities reveal intact radial artery pulses bilaterally. Tense pretibial edema is noted. Results & Data ([facility]) Vital Signs (Past 12 Hours) Vital Signs Temp Pulse Pulse Resp BP BP Pulse Ox 03/10/21 12:46 87 27 H 102/68 95 03/10/21 12:31 90 32 H 105/64 94 03/10/21 12:16 91 H 23 107/71 95 03/10/21 12:01 100 H 35 H 93/56 L 93 03/10/21 11:47 106 H 19 96/61 L 73 L 03/10/21 11:32 26 H 79/60 L 80 L 03/10/21 11:16 97 H 24 102/63 96 03/10/21 11:01 77 29 H 104/63 74 L 03/10/21 10:46 93 H 30 H 92/58 L 91 03/10/21 10:31 90 24 94/56 L 96 03/10/21 10:16 99 H 41 H 98/57 L 90 03/10/21 10:01 91 H 35 H 100/68 95 03/10/21 08:15 87 03/10/21 02:50 36.6 C 90 29 H 100/75 95 03/10/21 01:17 86 30 H 97 PG Care Time/CCT Total # of Minutes Spent Total Time Spent with Patient: Total time spent is greater than 50% in coordination of care (as documented) at patient's floor/unit and/or counseling patient: Coding Level of Care Code 99778 Subseq Hosp Care Lvl 3 Diagnoses Acute on chronic heart failure with preserved ejection fraction (HFpEF) I50.33 Permanent atrial fibrillation I48.21 HTN (hypertension) I10 Hypertension type: essential hypertension (1) HTN (hypertension) Hypertension type: essential hypertension Qualified Code(s): I10 - Essential (primary) hypertension
--- NOTE | 2021-03-10 13:28 | Hospitalist Progress Note ---
Date of Service March 10, 2021 Assessment & Plan (1) Acute and chronic respiratory failure with hypercapnia: Plan: He has chronic hypoxic respiratory failure secondary to COPD at baseline and is on 2 L continuously. Possibly multifactorial etiology including acute on chronic heart failure with preserved ejection fraction, Bilateral pleural effusions, pulmonary hypertension. Pneumonia considered but less likely. Continue diuresis with Bumex per cardiology recommendations. Spironolactone 12.5 added. Monitor BMP daily. Persistent UTI symptoms and a positive urinalysis. De-escalate Zosyn to cefdinir, which will also help with minimizing additional fluid retention. Root is in place. He has significant volume overload despite initial efforts with diuretics, salt and fluid restriction. S/p paracentesis with 5 L removed on 03/10. Ordered albumin this morning. This morning patient reports feeling okay. Currently at his baseline oxygen requirement with a 2 L of nasal cannula. Renal function remains okay. Palliative team is on board; plan to discharge on hospice once medically ready. (2) Acute on chronic heart failure with preserved ejection fraction (HFpEF): Plan: Continue with Bumex IV, strict ins and outs, daily weights, low-salt diet and spironolactone added per cardiology. Notably there is evidence of cirrhosis on imaging. From last visit INR was slightly elevated, albumin low indicating poor liver function. Decompensated cirrhosis with ascites likely the bigger contributing factor to volume overloaded state and refractory fluid overload here. No evidence of fever, abdominal pain, or leukocytosis. SBP less likely, however, abx were also started. (3) Decompensation of cirrhosis of liver: Plan: Cirrhosis this appears to be a new diagnosis in last few months. Continue with diuretic therapy. Would ensure appropriate ratio loop diuretic to spironolactone on discharge (5:2) to help keep the fluid off. (4) Paroxysmal ventricular tachycardia: Plan: Continue to monitor on telemetry at this time. Patient is asymptomatic. (5) Permanent atrial fibrillation: Plan: Rate controlled on current therapy. He is not on long-term anticoagulation due to elevated fall risk and chronic anemia (6) Chronic kidney disease, stage 3a: Plan: He is at baseline renal function. Continue to monitor on intravenous diuretic therapy. (7) Anemia: Plan: Chronic, stable, no need for transfusion at this time. No evidence of bleeding at this time. (8) Severe protein-calorie malnutrition: Plan: Likely secondary to multiple comorbidities and significant physical deconditioning. Monitor p.o. intake and promote high-protein diet. 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 Continue to monitor in outpatient setting (10) Physical deconditioning: Plan: Over the lastPT/OT, however, patient reports of bedbound status 2 years after a fall. Resides at a personal group home. (11) DVT prophylaxis: Plan: Lovenox DNR/DNI Disposition-continue telemetry monitoring and hospitalization Admission and Anticipated Discharge Date Admission Date: March 07, 2021 Subjective Patient is resting comfortably. Just arrived back from paracentesis. Denies any significant shortness of breath. Does report having cough. Does endorse abdominal pain. Limited review of system given his current mental status. Review of Systems Review of Systems: All systems reviewed & are unremarkable except as noted in HPI & below Physical Exam Physical Exam: General: awake and alert HENT: NCAT, MMM, EOMI Eyes: PERRLA Neck: Supple, normal range of motion CVS: normal rate and rhythm Resp: b/l crackles appreciated Abdomen: Soft, distended, +mild central tenderness Extremities: No c/c/e Neuro: face symmetric, no focal deficit Skin: warm and dry, no rashes/lesions/errythema MSK: normal ROM, no joint swelling/erythema Results & Data Results & Data ([facility]) Vital Signs (Past 12 Hours) Vital Signs Temp Pulse Pulse Resp BP BP Pulse Ox 03/10/21 12:46 87 27 H 102/68 95 03/10/21 12:31 90 32 H 105/64 94 03/10/21 12:16 91 H 23 107/71 95 03/10/21 12:01 100 H 35 H 93/56 L 93 03/10/21 11:47 106 H 19 96/61 L 73 L 03/10/21 11:32 26 H 79/60 L 80 L 03/10/21 11:16 97 H 24 102/63 96 03/10/21 11:01 77 29 H 104/63 74 L 03/10/21 10:46 93 H 30 H 92/58 L 91 03/10/21 10:31 90 24 94/56 L 96 03/10/21 10:16 99 H 41 H 98/57 L 90 03/10/21 10:01 91 H 35 H 100/68 95 03/10/21 08:15 87 03/10/21 02:50 36.6 C 90 29 H 100/75 95 (1) Anemia Anemia type: unspecified type Qualified Code(s): D64.9 - Anemia, unspecified
[2021-03-10] MEDS: MoRPHine SULFATE 5 MG/0.25 ML UDP PO PRN (13:40)
[2021-03-10] MEDS: ATORVASTATIN 40 MG TAB PO SCH (20:39)
[2021-03-11] MEDS: MoRPHine SULFATE 5 MG/0.25 ML UDP PO PRN (01:17)
[2021-03-11 05:33] LABS: BUN Creatinine Ratio 17.6 (10-20); Calcium 7.7 mg/dl (8.5-10.1); Creatinine Clr Calc Pharmacy 50.5 ml/min; Est GFR (African American) 59.8 ml/min; Est GFR (Non-African American) 51.6 ml/min
[2021-03-11 05:58] LABS: Basophils # (auto) 0.02 K/uL (0-0.2); Basophils % (auto) 0.3 %; Eosinophils # (auto) 0.05 K/uL (0-0.5); Eosinophils % (auto) 0.7 %; Hematocrit (blood only) 32.4 % (42-52); Hemoglobin 9.3 g/dL (14.0-18.0); Immature Granulocytes # (auto) 0.01 K/uL (0.00-0.02); Immature Granulocytes % (auto) 0.1 %; Lymphocytes # (auto) 0.76 K/uL (1.2-3.4); Lymphocytes % (auto) 10.8 %; Mean Corpuscular Hemoglobin 24.2 pg (25-34); Mean Corpuscular Hgb Conc 28.7 g/dL (32-36); Mean Corpuscular Volume 84.2 fL (80-100); Mean Platelet Volume 9.1 fL (7.4-10.4); Monocytes # (auto) 1.25 K/uL (0.11-0.59); Monocytes % (auto) 17.7 %; Neutrophils # (auto) 4.97 K/uL (1.4-6.5); Neutrophils % (auto) 70.4 %; Platelet Count 309 K/uL (130-400); RDW Coefficient of Variation 17.8 % (11.5-14.5); RDW Standard Deviation 55.2 fL (36.4-46.3); Red Blood Count 3.85 M/uL (4.7-6.1); White Blood Count 7.06 K/uL (4.8-10.8)
[2021-03-11] MEDS: methIMAzole 5 MG TABLET PO SCH (08:01)
[2021-03-11] MEDS: ASPIRIN 81 MG ECTAB PO SCH (08:01)
[2021-03-11] MEDS: DOCUSATE SODIUM 100 MG CAP PO SCH (08:01)
[2021-03-11] MEDS: PANTOprazole 40 MG TAB PO SCH (08:01)
[2021-03-11] MEDS: ENOXAPARIN INJ 40 MG/0.4 ML SYR SQ SCH (08:01)
[2021-03-11] MEDS: MULTIVITAMIN TAB PO SCH (08:01)
[2021-03-11] MEDS: METOPROLOL SUCC 25MG EXT REL TAB PO SCH (08:01)
[2021-03-11] MEDS: CEFDINIR 300 MG CAP PO SCH (08:02)
[2021-03-11] MEDS: SPIRONOLACTONE 12.5 MG TAB PO SCH (08:02)
[2021-03-11] MEDS: BUMETANIDE 1 MG in SYRINGE 0 ML IV SCH (08:56)
--- NOTE | 2021-03-11 10:56 | Palliative Care Progress Note ---
Date of Service March 11, 2021 Assessment & Plan (1) Palliative care encounter: Plan: Matty wakens easily to verbal stimuli. He was able to hold conversation with me. He had a paracentesis yesterday, with 5 L removal.Patient has remained hemodynamically stable with his BP and HR. Patients daughter yesterday stressed the importance to her and the family that he does not pass away in the hospital. I communicated this to Dr. Serrano and expressed that I would hate to lose the window of opportunity for him to be discharged back to the [facility] with Hospice. Discharge being considered for today. Per case management, family has chosen [facility] upon return. Patients family has been easing into the idea of Hospice and is comfortable with the plan; however, I think a POLST form completion while in the hospital, may induce us to backtrack in our plan. Would suggest POLST be completed a the [facility]. Patient and family ready to not return to the hospital and focus on symptom management with hospice. Please contact Palliative Medicine should you have any further questions or require additional assistance. (2) Dyspnea: Plan: Patient on 4 LNC. Pt does not appear anxious when his breathing becomes more labored when he coughs. Roxanol started yesterday. He did receive 2 doses of Roxanol, one being overnight. He did say that it didn't help, but also didn't remember taking it. Pt creatinine is 1.24. (3) Severe protein-calorie malnutrition: (4) Decompensation of cirrhosis of liver: (5) Acute and chronic respiratory failure with hypercapnia: (6) Weakness: Admission and Anticipated Discharge Date Admission Date: March 07, 2021 Subjective Pt resting when I entered the room. Pt with significant productive cough. hemodynamically stable on 4LNC. Goal to return to the [facility] with hospice. See a/p for further details Review of Systems Review of Systems: Curtis System Assessment Scale: Pain: 0/3 SOB: 2/3 Anxiety: 0/3 Tiredness: 1/3 Palliative Performance Scale: 30% Physical Exam Constitutional: + ill appearing, + frail appearing, cooperative and comfortable ENMT: Mouth: + dry oral mucous membranes Respiratory: + respiratory distress and + cough (thick productive yellow sputum) Auscultation: + rhonchi Cardiovascular: Rate/Rhythm: regular rate and regular rhythm Heart Sounds: normal S1 and normal S2 Extremities: normal capillary refill Gastrointestinal (Abdomen): Inspection/Auscultation: + abdomen distended and + abdominal edema Skin: + ecchymosis and + pallor Psychiatric: Orientation: alert and oriented x 3 Insight: good insight Judgement: + limited judgement Results & Data ([facility]) Vital Signs (Past 12 Hours) Vital Signs Temp Pulse Resp BP Pulse Ox 03/11/21 08:00 37.1 C 94 H 20 103/75 93 03/11/21 02:35 36.9 C 77 13 90/55 L 97 03/10/21 23:25 37.1 C 101 H 29 H 97/66 L 94 PG Care Time/CCT Total # of Minutes Spent Total Time Spent with Patient: Total time spent is greater than 50% in coordination of care (as documented) at patient's floor/unit and/or counseling patient: 35 minutes with > 50% Of that time spent assessing the patient, discuss ing goals of care with family, addressing symptom management needs, and collaborating with IDT Coding Level of Care Code 52760 Subseq Hosp Care Lvl 3 Diagnoses Palliative care encounter Z51.5 Dyspnea R06.00 Severe protein-calorie malnutrition E43 Decompensation of cirrhosis of liver K72.90; K74.60 Acute and chronic respiratory failure with hypercapnia J96.22 Weakness R53.1
[2021-03-11 11:38] VITALS: TEMP 98.2; O2SAT 95
[2021-03-11 11:39] VITALS: BP 112/72
--- NOTE | 2021-03-11 13:34 | Cardiology Progress Note ---
Date of Service March 11, 2021 Assessment & Plan (1) Acute on chronic heart failure with preserved ejection fraction (HFpEF): Plan: -continue diuresis with IV Bumex b.i.d.. -receive intravenous albumin yesterday. -hopefully spironolactone will be of benefit. -prognosis poor. -home with hospice is appropriate. (2) Permanent atrial fibrillation: Plan: -Eliquis continues on hold. -continue metoprolol succinate for rate control. (3) HTN (hypertension): Plan: -adequate control on current regimen. Admission and Anticipated Discharge Date Admission Date: March 07, 2021 Subjective The patient is resting comfortably in bed without complaints. Feels better than yesterday. Physical Exam Physical Exam: In general this is a well-developed well-nourished elderly white male in no acute distress. HEENT exam is negative. Neck is supple with full carotid upstrokes. No carotid bruits. Jugular venous pressure is difficult to assess. There is no thyromegaly. Cardiovascular exam reveals an irregular rhythm with distant heart sounds. No obvious murmurs. No S3. Lungs are clear anteriorly. Abdomen is soft without bruits. Extremities reveal intact radial artery pulses bilaterally. 1+ pretibial edema is noted. Results & Data ([facility]) Vital Signs (Past 12 Hours) Vital Signs Temp Pulse Pulse Resp BP BP Pulse Ox 03/11/21 11:37 36.8 C 80 22 112/72 95 03/11/21 08:00 37.1 C 94 H 20 103/75 94 03/11/21 07:33 91 H 26 H 105/75 98 03/11/21 02:35 36.9 C 77 13 90/55 L 97 PG Care Time/CCT Total # of Minutes Spent Total Time Spent with Patient: Total time spent is greater than 50% in coordination of care (as documented) at patient's floor/unit and/or counseling patient: Coding Level of Care Code 38055 Subseq Hosp Care Lvl 3 Diagnoses Acute on chronic heart failure with preserved ejection fraction (HFpEF) I50.33 Permanent atrial fibrillation I48.21 HTN (hypertension) I10 Hypertension type: essential hypertension (1) HTN (hypertension) Hypertension type: essential hypertension Qualified Code(s): I10 - Essential (primary) hypertension
[2021-03-11 13:46] VITALS: PULSE 80
--- NOTE | 2021-03-11 16:20 | Discharge Summary ---
Date of Service March 11, 2021 Admission HPI Per Admitting Provider History obtained from patient, family, and records. Limited history from patient secondary to lethargy, respiratory distress. Medical history significant for chronic diastolic heart failure (EF 60 to 65%, TTE 2020), valvular heart disease (moderate MR, moderate TR on recent TTE), RV volume overload on TTE, pulmonary hypertension as per records, daytime somnolence as per records, HTN, AF not on anticoagulation secondary to fall risk as per family, PVD, hx CVA, chronic respiratory failure secondary to COPD on home O2, COPD, hyperthyroidism, hx NHL as per records, chronic anemia (baseline hemoglobin 9-10 ) Four admissions (monthly) at [facility] for CHF since October 2020. Last confinement was last week. Patient seen by Cardiology. No changes on home diuretic regimen on discharge back to [facility] [address]. Patient also discharged on Keflex course for E. coli UTI. As per daughter, patient still short of breath and with fluid retention following recent confinement. On PCP evaluation at assisted living [facility] today, patient noted to be coughing and short of breath during visit, falling asleep multiple times during conversation. Coughing with meals/water intake as per daughter if patient not careful. Transient chest pain and epigastric complaints as per EMS account. PCP contemplated increasing home Bumex to 4 mg twice daily and meeting with family in 1 week to discuss possible hospice. Patient brought to the ER for worsening symptoms. BiPAP initiated upon arrival at the ER for respiratory distress. Medical History as above Surgical History : Cataract surgery, cystoscopy/ureteroscopy/lithotripsy, tonsillectomy, bowel surgery Family History : Heart disease Personal/Social history : Non-smoker, no EtOH intake, assisted living facility resident, retired [employer] employee Admission Exam Per Admitting Provider GENERAL: Obtunded, respiratory distress SKIN: Pallor , warm HEENT: Pale palpebral conjunctivae, no ptosis, dry buccal mucosa, BiPAP in place NECK : Supple, no tenderness CHEST : Decreased breath sounds, expiratory wheezes, no tenderness HEART : Irregular, no obvious murmurs ABDOMEN: distention, nontender EXTREMITIES : Bilateral LE swelling, no LE tenderness, no other conspicuous deformities noted NEUROLOGIC : Obtunded, no facial asymmetry, gait and stance not assessed Principal Diagnosis Acute and chronic respiratory failure with hypercapnia Discharge Exam General: awake and alert HENT: NCAT, MMM, EOMI Eyes: PERRLA Neck: Supple, normal range of motion CVS: normal rate and rhythm Resp: b/l crackles appreciated Abdomen: Soft, distended, +mild central tenderness Extremities: No c/c/e Neuro: face symmetric, no focal deficit Skin: warm and dry, no rashes/lesions/errythema MSK: normal ROM, no joint swelling/erythema Discharge Data Allergies Allergy/AdvReac Type Severity Reaction Status Date / Time Iodinated Contrast Media Allergy Severe ANAPHYLAXIS Verified 03/07/21 19:25 Sulfa (Sulfonamide Allergy Unknown UNKNOWN Verified 03/07/21 19:25 Antibiotics) Consultations 03/07/21 19:30 ED Decision to Admit Stat 03/07/21 23:10 Consult Cardiology Routine 03/09/21 21:16 Consult Palliative Care Routine Ordered Studies 03/07/21 16:47 CT abd pelvis wo con Stat CT chest diagnostic wo con Stat 03/07/21 20:51 US venous doppler LE BI Urgent 03/09/21 00:32 CT abd pelvis wo con Urgent 03/10/21 07:00 US paracentesis abd w/image Routine Hospital Course (1) Acute and chronic respiratory failure with hypercapnia: He has chronic hypoxic respiratory failure secondary to COPD at baseline and is on 2 L continuously. Possibly multifactorial etiology including acute on chronic heart failure with preserved ejection fraction, Bilateral pleural effusions, pulmonary hypertension. Pneumonia considered but less likely. Cardiology was consulted. He was started on IV Bumex and diuresed aggressively. Patient also underwent paracentesis with 5 L of fluid removed. Given overall poor prognosis, palliative medicine was consulted. Started to proceed with hospice measures. On the day of discharge patient was doing okay. Requiring roughly 4 L. Patient was tolerating diet. Was discharged on hospice services. (2) Acute on chronic heart failure with preserved ejection fraction (HFpEF): Patient was diuresed aggressively during this hospitalization along with paracentesis. At discharge patient resumed his [employer] Bumex 2 mg twice daily. (3) Decompensation of cirrhosis of liver: Cirrhosis this appears to be a new diagnosis in last few months. Continue with diuretic therapy. (4) Paroxysmal ventricular tachycardia: Continue to monitor on telemetry at this time. Patient is asymptomatic. (5) Permanent atrial fibrillation: Rate controlled on current therapy. He is not on long-term anticoagulation due to elevated fall risk and chronic anemia (6) Chronic kidney disease, stage 3a: He is at baseline renal function. Continue to monitor on intravenous diuretic therapy. (7) Anemia: Chronic, stable, no need for transfusion at this time. No evidence of bleeding at this time. (8) Severe protein-calorie malnutrition: Likely secondary to multiple comorbidities and significant physical deconditioning. Monitor p.o. intake and promote high-protein diet. (9) 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: Chronic, stable on imaging. Continue to monitor in outpatient setting (10) Physical deconditioning: Over the lastPT/OT, however, patient reports of bedbound status 2 years after a fall. Resides at a personal skilled nursing. Total Time Total Time Spent Total Time Spent (In Minutes): 35 Discharge Plan Discharge Items Patient Disposition: Hospice - Home Reason For Visit: RESP FAILURE Discharge Diagnosis: Acute and chronic respiratory failure with hypercapnia Activity: Resume your previous activity Non-emergency contact: Primary Care Provider Call non-emergency contact if: your symptoms worsen Follow-up/Referrals: Jane Greenfield MD [Primary Care Provider] - Diet: Heart Healthy Addtl Attending Provider Instructions: Patient is being discharged on hospice services. Pending Studies at Discharge: No Stand-Alone Forms: My [facility] [employer] Medications and DC Order Prescriptions: New morphine concentrate 100 mg/5 mL (20 mg/mL) Solution 5 mg PO Q8H PRN (Reason: pain) Qty: 10 RF: 0 spironolactone 25 mg Tablet 12.5 mg PO DAILY Qty: 30 RF: 0 cefdinir 300 mg Capsule 300 mg PO BID 63 Days Qty: 6 RF: 0 Continued methimazole 5 mg tablet 5 mg PO DAILY RF: 0 aspirin 81 mg Tablet,Delayed Release (Dr/Ec) 81 mg PO DAILY Qty: 30 RF: 0 pantoprazole 40 mg Tablet,Delayed Release (Dr/Ec) 40 mg PO BID Qty: 60 RF: 0 atorvastatin 40 mg tablet 40 mg PO HS 30 Days Qty: 30 RF: 0 ferrous sulfate 325 mg (65 mg iron) Tablet 325 mg PO BID 30 Days Qty: 60 RF: 0 docusate sodium [Colace] 100 mg Capsule 100 mg PO BID 30 Days Qty: 60 RF: 0 metoprolol succinate 25 mg tablet extended release 24 hr 25 mg PO DAILY Qty: 25 RF: 0 calcium citrate 200 mg (950 mg) Tablet 200 mg PO BID 30 Days Qty: 60 RF: 0 multivitamin [Daily-Nico] Tablet 1 tab PO DAILY RF: 0 melatonin 10 mg Tablet 10 mg PO HS PRN (Reason: Sleep) RF: 0 Ensure High Protein Liquid 1 ea PO DAILY RF: 0 potassium chloride [Klor-Con M20] 20 mEq Tablet,Er Particles/Crystals 20 meq PO DAILY 30 Days Qty: 30 RF: 3 magnesium oxide 400 mg magnesium Tablet 400 mg PO DAILY RF: 0 bumetanide 2 mg tablet 2 mg PO BID RF: 0 ergocalciferol (vitamin D2) [Vitamin D2] 1,250 mcg (50,000 unit) Capsule 1,250 mcg PO WK RF: 0 acetaminophen 650 mg Tablet Extended Release 1,300 mg PO DAILY PRN (Reason: Pain) RF: 0 Advanced Probiotic 625 mg (10 billion cell) Capsule 2 cap PO DAILY 10 Days Qty: 20 RF: 0 Discharge Orders: Discharge Order (Routine); Ordered 03/11/21 Ordered By: Cherie House/Other Patient Handouts: What Is Hospice?, Starting Hospice Admission Data Admit Date/Time: 03/07/21 20:54 Attending Provider: Cherie Serrano Admit Provider: Trevor Brewer Primary Care Provider: Jane Greenfield Other Providers: Trevor Brewer ; Trevon Kelsey ; Jeancarlos Duque ; Kenroy Rowland ; Toan Garcia ; Nima Guy Jr ; Davide Garcia ; Catie Solorio ; Akilah Montemayor ; Sammy Rosales ; Alcides Leone ; Nathaniel Bailon Jennifer M. ; Stuart Kim ; Lane Arroyo Michael K. ; Charley Temple Other Interventions: Discharge Summary Assessment (RN) Last Done: 03/11/21 13:44
== END 2021-03-11 14:15 | disposition hospice, home (50) ==
LOC: ED 16:38 → SUATTDRO 20:54 → INTOOBSV 20:54 → 1E 20:54